=== PATIENT | male | born 1970 | race Caucasian/White ===

== ENCOUNTER 2023-07-27 02:48 | Emergency (ER) | payer OTHER, SELFPAY ==
[2023-07-27] VITALS (27 sets, daily range): BP systolic 122–150; BP diastolic 62–83; PULSE 61–105; RESP 14–22; TEMP 37; O2SAT 94–99; BMI 38.7
--- NOTE | 2023-07-27 02:56 | ECG_ITS ---
[facility] Test Date: 2023-07-27 Pat Name: PIPER RODRÍGUEZ Department: Room: - Gender: Male [employer]: : 1970 Requested By: GEN PEÑA Order Number: [id number] Reading MD: GEN PEÑA Measurements Intervals [place] Rate: 86 P: 47 CA: 164 QRS: 15 QRSD: 88 T: 55 QT: 350 QTc: 393 Interpretive Statements 1100 Sinus rhythm 9110 normal ECG Compared to ECG 12/18/2019 12:21:46 No significant changes Electronically Signed On 07-27-2023 5:57:31 EST by GEN PEÑA
--- NOTE | 2023-07-27 03:29 | ED_ITS ---
HPI - Chest Pain General Chief Complaint: Chest Pain Stated Complaint: CHEST PAIN Time Seen by Provider: 07/27/23 03:01 Source: patient and family Mode of arrival: walk-in Limitations: no limitations History of Present Illness HPI narrative: 53-year-old male History of hypertension, nonsmoker presents for evaluation of the sensation that his heart is out of rhythm. He has had these symptoms intermittently since last Wednesday, 7 days ago. He states tonight he was trying to go to sleep but was having some intermittent stabbing sensation in his chest that kept him from resting. It was nonradiating. He denies any shortness of breath dizziness or syncope. His states he has had some intermittent gastrointestinal symptoms for the past 6 months. He has not had any vomiting or diarrhea. He has not had any weight loss or black/tarry stools. He does not take NSAIDS typically. He has had episodes of hot flashes but only in the mornings. He denies any fever or cough. He states he tried to find some baby aspirin at the house to take but did not find any. He has been on blood pressure medication for the past 10 years. 10 years ago he had a stress test. MD complaint: Reports chest discomfort Related Data Home Medications Medication Instructions Recorded Confirmed atorvastatin 40 mg tablet mg 07/27/23 azilsartan medoxomil 80 mg tablet mg 07/27/23 (Edarbi) Allergies Allergy/AdvReac Type Severity Reaction Status Date / Time No Known Drug Allergies Allergy Verified 07/27/23 02:56 Review of Systems ROS Status of ROS 10 or more systems reviewed and unremark able except as noted in history and below PFSH PFSH Social History Smoking status: Never smoker Exam Narrative Exam Narrative: Nurses note and vital signs reviewed and patient is not hypoxic.Blood pressure is elevated 150/83 and his pulse is mildly tachycardic at 105 General: Alert, nontoxic male resting comfortably on the stretcher, no respiratory distress Skin: Warm, dry, no pallor noted. There is no rash noted. Head: Normocephalic, atraumatic Eye: Normal conjunctiva, no drainage, EOMI. PERRL Ears, Nose, Mouth, and Throat: oral mucosa is moist. Nares patent. Mouth without vesicles. Cardiovascular: Regular Rate and [id number], pulses are brisk and equal bilaterally, no chest wall tenderness Respiratory: Patient is in no distress, no accessory muscle use, lungs are clear to auscultation, no wheezing, rales or rhonchi Back: non-tender, no CVA tenderness bilaterally to percussion. GI: Normal bowel sounds, no tenderness to palpation, no masses appreciated. No rebound, guarding, or rigidity noted. Musculoskeletal: The patient has no evidence of calf tenderness, no pitting edema, symmetrical pulses noted bilaterally Neurological: A&O x4, normal speech Psychiatric: Cooperative Constitutional Vital Signs, click to edit/add: Last Vital Signs Temp 98.6 F 07/27/23 02:52 Pulse 61 07/27/23 06:03 Resp 15 07/27/23 06:03 BP 126/62 07/27/23 06:03 Pulse Ox 97 07/27/23 06:03 Course Vital Signs Vital signs: Vital Signs Temperature 98.6 F 07/27/23 02:52 Pulse Rate 105 H 07/27/23 02:52 Respiratory Rate 16 07/27/23 02:52 Blood Pressure 150/83 H 07/27/23 02:52 Pulse Oximetry 97 07/27/23 02:52 Temperature 98.6 F 07/27/23 02:52 Pulse Rate 61 07/27/23 06:03 Respiratory Rate 15 07/27/23 06:03 Blood Pressure 126/62 07/27/23 06:03 Pulse Oximetry 97 07/27/23 06:03 MDM - Chest Pain MDM Narrative Medical decision making narrative: This 53-year-old male, moderately overweight, nonsmoker with a high stress job presents for evaluation of chest discomfort has been intermittent and present since last Wednesday, 7 days ago. He denies that it is actual pain but states he felt like his heart was beating irregularly and was unable to sleep. He denies any SOB, dizziness or diaphoresis. He has not had any episodes of syncope. He does state that he has had some 'hot flashes' in the morning several times. The patient's states that for the past 6 months he has been having some gastrointestinal symptoms that are like heartburn which are unusual for him. The patient denies any weight loss or bloody stools but did admit to the nurse after thinking about it that he had had some dark stools recently. He does not take excessive amounts of NSAIDs or aspirin. He is not on any blood thinners. He has been on the same blood pressure medication for over 10 years. He did have a cardiac workup 10 years ago when he was a patient of Dr. Jaquez. Upon arrival an EKG was performed that is a normal sinus rhythm at 86 bpm with no acute changes. An IV was placed and he was given 324 mg baby aspirin. Routine cardiac labs were ordered and are reviewed. He has a normal white count however his hemoglobin is low at 8.7. He has a normal troponin and d dimer. . Delta troponin is less than 4. He also now gives additional history that he has been a fairly heavy drinker in the past but has recently quit drinking. Electrolytes are normal with the exception of a sodium of 128. He is not on any diuretics or steroids. CTA of the chest /abdomen/ pelvis was performed to rule out any source of bleeding or other abnormalities and is included in the body of this report and is normal with the exception of a 3mm pulmonary nodule. The results of the CTA were discussed with the patient and his . TSH was added on and is normal. Heart score is 3 for Hx HTN and elevated BMI He is feeling better at this time and requests to be discharged home. Case was discussed with Dr Pratt and he will see him in the office in the next several days for further evaluation and treatment He will be discharged home with Rx for Protonix Medical Records Data Medical records narrative: The [address] [address] [address] Scan Report Signed Patient: PIPER RODRÍGUEZ MR#: [id number] : 1970 Acct:[id number] Age/Sex: 53 / M ADM Date: 07/27/23 Loc: ER Attending Dr: Ordering Physician: Mily Rock Date of Service: 07/27/23 Procedure(s): CT angio chest Accession Number(s): [id number] cc: Delta Pratt M.D.~ The [address] [address] Patient Name: PIPER RODRÍGUEZ MRN: [id number] date: 1970 Sex: M Assigned Patient Location: ER Current Patient Location: ER Accession/Order Number: [id number] Exam Date: 07/27/2023 04:15 Report Date: 07/27/2023 05:38 At the request of: MILY MARKER Procedure: CT angio chest EXAM: CT angio chest, CT angio abdomen pelvis HISTORY: Chest and abdomen pain COMPARISON: None. TECHNIQUE: Following nonionic IV contrast, thin section axial scans obtained from thoracic inlet through the pelvis and ischial tuberosities. Coronal and sagittal reformatted images obtained. 3-D reconstructions of the thoracoabdominal aorta and iliac arteries obtained in separate workstation. Mid images obtained. Type and amount of contrast opacified institution. This CT exam was performed using one or more of the following dose reduction techniques: Automated exposure control, adjustment of the mA and/or kV according to patient size, or use of iterative reconstruction technique. Thin section coronal and sagittal images were reconstructed from the axial data set. All images were reviewed and interpreted. CTA CHEST FINDINGS: No evidence of acute PE. Normal thoracic aorta without dissection or aneurysm. Cardiac chambers are upper limits normal in size and mildly enlarged. No pericardial effusion. No mediastinal or hilar lymphadenopathy. There is a tiny pulmonary nodule lateral segment right middle lobe abutting fissure measuring 3 mm. Both lungs otherwise well aerated, expanded and clear. No pneumothorax or pleural effusion or focal consolidation. Normal thoracic osseous structures. No rib fractures. Chest wall is intact. No axillary adenopathy. Normal thyroid gland. CTA ABDOMEN AND PELVIC FINDINGS: Normal course and caliber of the descending thoracic aorta and abdominal aorta and iliac arteries. No dissection or aneurysm. Mild atherosclerotic calcific plaque in the infrarenal aorta and along the bilateral common iliac arteries and internal iliac arteries. Branch vessels are widely patent. No stenosis. This includes celiac axis and vessels, SMA and JACKELYN. Both renal arteries are widely patent. No stenosis or calcific plaque. Moderate hepatic steatosis. Liver otherwise normal. Normal portal vein enhancement. Normal gallbladder. No intrahepatic or extrahepatic bile duct distention. Normal pancreas. No pancreatic duct dilation. Normal spleen, adrenals and kidneys during arterial phase of imaging. Normal GE junction stomach. Normal course and caliber of small and large bowel loops. No obstruction or inflammatory changes. Mild scattered diverticulosis. No acute colitis. Normal appendix. Normal urinary bladder. Normal mesenteric and retroperitoneal and peritoneal structures. No mass or adenopathy. Bilateral hip replacement hardware causing streak artifact. Osseous structures and joints otherwise normal. CT/CT angio chest IMPRESSION: 1. No acute chest, abdomen or pelvis findings. 2. Negative for PE. 3. Normal course and caliber of thoracal abdominal aorta and iliac arteries with no dissections or aneurysms. Mild atherosclerotic calcific plaque mostly in the abdominal aorta and iliac arteries. 4. Small 2 to 3 mm right middle lobe lung nodule. According to current Fleischner Society recommendations, no follow-up needed. 5. Additional chronic findings as discussed above. Electronically authenticated by: SUSI BRENNAN Date: 07/27/2023 05:38 Lab Data Labs: Lab Results 07/27/23 07/27/23 Range/Units 03:00 05:53 WBC 5.0 (4.0-11.0) 10^3/uL RBC 4.28 L (4.70-6.10) 10^6/uL Hgb 8.7 L (14.0-18.0) g/dL Hct 30.6 L (42.0-54.0) % MCV 71.5 L (80.0-94.0) fL MCH 20.3 L (25.9-34.0) pg MCHC 28.4 L (29.9-35.2) g/dL RDW 18.3 H (11.0-15.0) % Plt Count 234 (150-450) 10^3/uL MPV 10.5 (9.5-13.5) fL Neut % (Auto) 55.8 (43.0-75.0) % Lymph % (Auto) 21.4 (20.5-60.0) % Harvey % (Auto) 15.2 H (1.7-12.0) % Eos % (Auto) 4.8 (0.9-7.0) % Baso % (Auto) 1.4 (0.2-2.0) % Neut # (Auto) 2.8 (1.4-6.5) 10^3/uL Lymph # (Auto) 1.1 L (1.2-3.8) 10^3/uL Harvey # (Auto) 0.8 (0.3-0.8) 10^3/uL Eos # (Auto) 0.2 (0.0-0.7) 10^3/uL Baso # (Auto) 0.1 (0.0-0.1) 10^3/uL Abs Immat Gran (auto) 0.07 H (0.00-0.03) 10^3/uL Imm/Tot Granulo (auto) 1.4 H (0.0-0.5) % D-Dimer <0.19 (<=0.59) mg/L FEU Sodium 128 L (136-145) mmol/L Potassium 4.7 (3.5-5.1) mmol/L Chloride 95 L (98-107) mmol/L Carbon Dioxide 27.4 (21.0-32.0) mmol/L Anion Gap 10.3 BUN 16.0 (7.0-18.0) mg/dL Creatinine 1.26 (0.70-1.30) mg/dL Est GFR ( Amer) >60 (>=60) Est GFR (Non-Af Amer) >60 (>=60) BUN/Creatinine Ratio 12.7 Glucose 133 H (74-106) mg/dL Calcium 9.4 (8.5-10.1) mg/dL Magnesium 2.4 (1.8-2.4) mg/dL Total Bilirubin 0.4 (0.2-1.0) mg/dL AST 83 H (15-37) U/L ALT 72 H (16-63) U/L Alkaline Phosphatase 89 (46-116) U/L Troponin I High Sens 4.8 <4.0 L (4.0-76.1) pg/mL NT-Pro-B Natriuret Pep 13.0 (<=900.0) pg/mL Total Protein 8.4 H (6.4-8.2) g/dL Albumin 3.6 (3.4-5.0) g/dL Globulin 4.8 g/dL Albumin/Globulin Ratio 0.8 TSH & Free T4 Interp 1.930 (0.358-3.740) uIU/mL ECG Data Attestation: I personally reviewed and interpreted this ECG as follows: (Sinus rhythm at 86 beats for minute, normal axis, normal intervals, no acute ST segment elevation or T-wave inversion) Heart Score History: Moderately Suspicious ECG: Normal Age: >45-<65 years Risk Factors: 1 or 2 Risk Factors Troponin: <Normal Limit Total Heart Score Recommendations & Risks:: 3 Discharge Plan Discharge Chief Complaint: Chest Pain Clinical Impression: Anemia, Hyponatremia, Atypical chest pain Patient Disposition: Home, Self-Care Time of Disposition Decision: 06:32 Condition: Good Prescriptions / Home Meds: No Action atorvastatin 40 mg tablet Edarbi 80 mg tablet Instructions: Hyponatremia (ED), Anemia (ED), Noncardiac Chest Pain (ED) Referrals: Delta Pratt MD [Primary Care Provider] - 1 week Stand Alone Forms: Portal Instructions
[2023-07-27 03:30] LABS: Basophils Absolute Auto 0.1 10^3/uL (0.0-0.1); Basophils Percent Auto 1.4 % (0.2-2.0); Eosinophils Absolute Auto 0.2 10^3/uL (0.0-0.7); Eosinophils Percent Auto 4.8 % (0.9-7.0); Hematocrit 30.6 % (42.0-54.0); Hemoglobin 8.7 g/dL (14.0-18.0); Immature Granulocytes Abs Auto 0.07 10^3/uL (0.00-0.03); Immature Granulocytes Pct Auto 1.4 % (0.0-0.5); Lymphocytes Absolute Auto 1.1 10^3/uL (1.2-3.8); Lymphocytes Percent Auto 21.4 % (20.5-60.0); Mean Corpuscular HGB Conc 28.4 g/dL (29.9-35.2); Mean Corpuscular Hemoglobin 20.3 pg (25.9-34.0); Mean Corpuscular Volume 71.5 fL (80.0-94.0); Mean Platelet Volume 10.5 fL (9.5-13.5); Monocytes Absolute Auto 0.8 10^3/uL (0.3-0.8); Monocytes Percent Auto 15.2 % (1.7-12.0); Neutrophils Absolute Auto 2.8 10^3/uL (1.4-6.5); Neutrophils Percent Auto 55.8 % (43.0-75.0); Platelet Count 234 10^3/uL (150-450); Red Blood Count 4.28 10^6/uL (4.70-6.10); Red Cell Distribution Width 18.3 % (11.0-15.0)
[2023-07-27] MEDS: ASPIRIN 81 MG TAB.CHEW 324 MG PO (03:30)
[2023-07-27 03:34] LABS: Alanine Aminotransferase 72 U/L (16-63); Albumin Globulin Ratio 0.8; Albumin Level 3.6 g/dL (3.4-5.0); Alkaline Phosphatase 89 U/L (46-116); Anion Gap 10.3; Aspartate Amino Transferase 83 U/L (15-37); BUN Creatinine Ratio 12.7; Bilirubin Total 0.4 mg/dL (0.2-1.0); Calcium 9.4 mg/dL (8.5-10.1); Carbon Dioxide 27.4 mmol/L (21.0-32.0); Chloride 95 mmol/L (98-107); Estimated GFR (African America >60 (>=60); Estimated GFR (Non-African Ame >60 (>=60); Globulin 4.8 g/dL; Glucose 133 mg/dL (74-106); Magnesium 2.4 mg/dL (1.8-2.4); Potassium 4.7 mmol/L (3.5-5.1); Sodium 128 mmol/L (136-145); Total Protein 8.4 g/dL (6.4-8.2); Troponin I High Sensitivity 4.8 pg/mL (4.0-76.1)
[2023-07-27 03:45] LABS: D Dimer <0.19 mg/L FEU (<=0.59)
--- NOTE | 2023-07-27 04:05 | CT_ITS ---
[address] [address] Patient Name: PIPER RODRÍGUEZ MRN: [id number] date: 1970 Sex: M Assigned Patient Location: ER Current Patient Location: Accession/Order Number: [id number] Exam Date: 07/27/2023 04:15 Report Date: 07/27/2023 05:38 At the request of: DANE MARKER Procedure: CT angio abdomen pelvis EXAM: CT angio chest, CT angio abdomen pelvis HISTORY: Chest and abdomen pain COMPARISON: None. TECHNIQUE: Following nonionic IV contrast, thin section axial scans obtained from thoracic inlet through the pelvis and ischial tuberosities. Coronal and sagittal reformatted images obtained. 3-D reconstructions of the thoracoabdominal aorta and iliac arteries obtained in separate workstation. Mid images obtained. Type and amount of contrast opacified institution. This CT exam was performed using one or more of the following dose reduction techniques: Automated exposure control, adjustment of the mA and/or kV according to patient size, or use of iterative reconstruction technique. Thin section coronal and sagittal images were reconstructed from the axial data set. All images were reviewed and interpreted. CTA CHEST FINDINGS: No evidence of acute PE. Normal thoracic aorta without dissection or aneurysm. Cardiac chambers are upper limits normal in size and mildly enlarged. No pericardial effusion. No mediastinal or hilar lymphadenopathy. There is a tiny pulmonary nodule lateral segment right middle lobe abutting fissure measuring 3 mm. Both lungs otherwise well aerated, expanded and clear. No pneumothorax or pleural effusion or focal consolidation. Normal thoracic osseous structures. No rib fractures. Chest wall is intact. No axillary adenopathy. Normal thyroid gland. CTA ABDOMEN AND PELVIC FINDINGS: Normal course and caliber of the descending thoracic aorta and abdominal aorta and iliac arteries. No dissection or aneurysm. Mild atherosclerotic calcific plaque in the infrarenal aorta and along the bilateral common iliac arteries and internal iliac arteries. Branch vessels are widely patent. No stenosis. This includes celiac axis and vessels, SMA and JACKELYN. Both renal arteries are widely patent. No stenosis or calcific plaque. Moderate hepatic steatosis. Liver otherwise normal. Normal portal vein enhancement. Normal gallbladder. No intrahepatic or extrahepatic bile duct distention. Normal pancreas. No pancreatic duct dilation. Normal spleen, adrenals and kidneys during arterial phase of imaging. Normal GE junction stomach. Normal course and caliber of small and large bowel loops. No obstruction or inflammatory changes. Mild scattered diverticulosis. No acute colitis. Normal appendix. Normal urinary bladder. Normal mesenteric and retroperitoneal and peritoneal structures. No mass or adenopathy. Bilateral hip replacement hardware causing streak artifact. Osseous structures and joints otherwise normal. CT/CT angio abdomen pelvis IMPRESSION: 1. No acute chest, abdomen or pelvis findings. 2. Negative for PE. 3. Normal course and caliber of thoracal abdominal aorta and iliac arteries with no dissections or aneurysms. Mild atherosclerotic calcific plaque mostly in the abdominal aorta and iliac arteries. 4. Small 2 to 3 mm right middle lobe lung nodule. According to current Fleischner Society recommendations, no follow-up needed. 5. Additional chronic findings as discussed above. Electronically authenticated by: SUSI BRENNAN Date: 07/27/2023 05:38
--- NOTE | 2023-07-27 04:05 | CT_ITS ---
[address] [address] Patient Name: PIPER RODRÍGUEZ MRN: [id number] date: 1970 Sex: M Assigned Patient Location: ER Current Patient Location: Accession/Order Number: [id number] Exam Date: 07/27/2023 04:15 Report Date: 07/27/2023 05:38 At the request of: DANE MARKER Procedure: CT angio chest EXAM: CT angio chest, CT angio abdomen pelvis HISTORY: Chest and abdomen pain COMPARISON: None. TECHNIQUE: Following nonionic IV contrast, thin section axial scans obtained from thoracic inlet through the pelvis and ischial tuberosities. Coronal and sagittal reformatted images obtained. 3-D reconstructions of the thoracoabdominal aorta and iliac arteries obtained in separate workstation. Mid images obtained. Type and amount of contrast opacified institution. This CT exam was performed using one or more of the following dose reduction techniques: Automated exposure control, adjustment of the mA and/or kV according to patient size, or use of iterative reconstruction technique. Thin section coronal and sagittal images were reconstructed from the axial data set. All images were reviewed and interpreted. CTA CHEST FINDINGS: No evidence of acute PE. Normal thoracic aorta without dissection or aneurysm. Cardiac chambers are upper limits normal in size and mildly enlarged. No pericardial effusion. No mediastinal or hilar lymphadenopathy. There is a tiny pulmonary nodule lateral segment right middle lobe abutting fissure measuring 3 mm. Both lungs otherwise well aerated, expanded and clear. No pneumothorax or pleural effusion or focal consolidation. Normal thoracic osseous structures. No rib fractures. Chest wall is intact. No axillary adenopathy. Normal thyroid gland. CTA ABDOMEN AND PELVIC FINDINGS: Normal course and caliber of the descending thoracic aorta and abdominal aorta and iliac arteries. No dissection or aneurysm. Mild atherosclerotic calcific plaque in the infrarenal aorta and along the bilateral common iliac arteries and internal iliac arteries. Branch vessels are widely patent. No stenosis. This includes celiac axis and vessels, SMA and JACKELYN. Both renal arteries are widely patent. No stenosis or calcific plaque. Moderate hepatic steatosis. Liver otherwise normal. Normal portal vein enhancement. Normal gallbladder. No intrahepatic or extrahepatic bile duct distention. Normal pancreas. No pancreatic duct dilation. Normal spleen, adrenals and kidneys during arterial phase of imaging. Normal GE junction stomach. Normal course and caliber of small and large bowel loops. No obstruction or inflammatory changes. Mild scattered diverticulosis. No acute colitis. Normal appendix. Normal urinary bladder. Normal mesenteric and retroperitoneal and peritoneal structures. No mass or adenopathy. Bilateral hip replacement hardware causing streak artifact. Osseous structures and joints otherwise normal. CT/CT angio chest IMPRESSION: 1. No acute chest, abdomen or pelvis findings. 2. Negative for PE. 3. Normal course and caliber of thoracal abdominal aorta and iliac arteries with no dissections or aneurysms. Mild atherosclerotic calcific plaque mostly in the abdominal aorta and iliac arteries. 4. Small 2 to 3 mm right middle lobe lung nodule. According to current Fleischner Society recommendations, no follow-up needed. 5. Additional chronic findings as discussed above. Electronically authenticated by: SUSI BRENNAN Date: 07/27/2023 05:38
[2023-07-27] MEDS: PANTOPRAZOLE SODIUM 40 MG VIAL IV (04:38)
[2023-07-27] MEDS: 0.9 % SODIUM CHLORIDE 1,000 ML 1000 ML IV (04:38)
[2023-07-27 06:17] LABS: Troponin I High Sensitivity <4.0 pg/mL (4.0-76.1)
== END 2023-07-27 06:42 | disposition home or self-care (01) ==
PROVIDERS: Emergency Provider Emergency Medicine; PCP Family Medicine
DX: R07.89 Other chest pain (principal); D64.9 Anemia, unspecified; E87.1 Hypo-osmolality and hyponatremia; I10 Essential (primary) hypertension; Z79.899 Other long term (current) drug therapy
CPT/HCPCS: 36415; 71275; 74174; 80053; 83735; 83880; 84443; 84484; 85025; 85378; 93005; 96374; 99285; Q9967

== ENCOUNTER 2023-08-02 07:45 | Inpatient (IN) | payer OTHER, SELFPAY ==
[2023-08-02] VITALS (39 sets, daily range): BP systolic 98–155; BP diastolic 51–81; PULSE 65–84; RESP 10–29; TEMP 37.1–38.3; O2SAT 91–98; BMI 38.5; BMI 38.4
--- OUTSIDE RECORDS SUMMARY | 2023-08-02 08:04 | XMS_ITS | CCD ---
Author Name Unknown Address [address] [place] [address] Organization [facility] Care Team Providers Care Protection Specialist Name Role Phone HOY ., DR BLEVINS Admitting Unavailable HOY ., DR BLEVINS Attending Unavailable HOY ., DR BLEVINS Primary Care Unavailable HOY ., DR BLEVINS Admitting Unavailable HOY ., DR BLEVINS Attending Unavailable HOY ., DR BLEVINS Primary Care Unavailable HOY ., DR BLEVINS Admitting Unavailable HOY ., DR BLEVINS Attending Unavailable HOY ., DR BLEVINS Primary Care Unavailable HOY ., DR BLEVINS Consulting Unavailable HOY ., DR BLEVINS Admitting Unavailable HOY ., DR BLEVINS Attending Unavailable HOY ., DR BLEVINS Primary Care Unavailable HOY ., DR BLEVINS Consulting Unavailable Allergies Allergy Classification Reported Allergen(s) Allergy Type Date of Onset Reaction(s) Facility (1 source) No Known Medication Allergies; Translations: [No Known Medication Allergies] Propensity to adverse reactions (disorder) [facility] [place] Repository Problems Active Problems Problem Classification Problem Date Documented Da te Episodic/Chronic Disorders of lipid metabolism (1 source) Hyperlipidemia, unspecified; Translations: [HYPERLIPIDEMIA UNSPECIFIED] Onset: 02-08-2022 Chronic Essential hypertension (1 source) Essential (primary) hypertension; Translations: [ESSENTIAL PRIMARY HYPERTENSION] Onset: 02-08-2022 Chronic Residual codes; unclassified (4 sources) Obstructive sleep apnea (adult) (pediatric); Translations: [OBSTRUCTIVE SLEEP APNEA] Onset: 07-14-2022 Chronic Past or Other Problems Problem Classification Problem Date Documented Da te Episodic/Chronic Malaise and fatigue (1 source) Other fatigue; Translations: [OTHER FATIGUE] Onset: 02-08-2022 Episodic Other aftercare (1 source) 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; Translations: [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 Rayna Mathew CBC AUTO DIFFon 02-04-2022 BASO # 0.0 103/ul Normal 0.0-0.1 [facility] Comment on above: Performed By: #### C BC #### [facility] [address] [place] [address] Dr. Rayna Mathew Basophils/100 WBC (Bld) 0.7 % Normal 0.2-2.0 [facility] Comment on above: Performed By: #### C BC #### [facility] [address] [place] [address] Dr. Rayna Mathew EO # 0.4 103/ul Normal 0.0-0.7 [facility] Comment on above: Performed By: #### C BC #### [facility] [address] [place] [address] Dr. Rayna Mathew Eosinophils/100 WBC (Bld) 6.7 % Normal 0.9-7.0 [facility] Comment on above: Performed By: #### C BC #### [facility] [address] [place] [address] Dr. Rayan Mathew Erythrocyte distribution width (RBC) [Ratio] 13.5 % Normal 11.0-15.0 [facility] Comment on above: Performed By: #### C BC #### [facility] [address] [place] [address] Dr. Rayna Mathew Hematocrit (Bld) [Volume fraction] 37.2 % Critically low 42.0-54.0 [facility] Comment on above: Performed By: #### C BC #### [facility] [address] [place] [address] Dr. Rayna Mathew Hemoglobin (Bld) [Mass/Vol] 11.5 g/dL Critically low 14.0-18.0 [facility] Comment on above: Performed By: #### C BC #### [facility] [address] [place] [address] Dr. Rayna Mathew IG # 0.02 10e3/ul Normal 0.00-0.03 [facility] Comment on above: Performed By: #### C BC #### [facility] [address] [place] [address] Dr. Rayna Mathew IG % 0.3 % Normal 0.0-0.5 [facility] Comment on above: Performed By: #### C BC #### [facility] [address] [place] [address] Dr. Rayna Mathew LYMPH # 1.4 103/ul Normal 1.2-3.8 [facility] Comment on above: Performed By: #### C BC #### [facility] [address] [place] [address] Dr. Rayna Mathew Lymphocytes/100 WBC (Bld) 23.8 % Normal 20.5-60.0 [facility] Comment on above: Performed By: #### C BC #### [facility] [address] [place] [address] Dr. Rayna Mathew MANUAL DIFF REQ NO Normal [facility] Comment on above: Performed By: #### C BC #### [facility] [address] [place] [address] Dr. Rayna Mathew MCH (RBC) [Entitic mass] 27.4 pg Normal 25.9-34.0 [facility] Comment on above: Performed By: #### C BC #### [facility] [address] [place] [address] Dr. Rayna Mathew MCHC (RBC) [Mass/Vol] 30.9 g/dL Normal 29.9-35.2 [facility] Comment on above: Performed By: #### C BC #### [facility] [address] [place], [place] [id number] Dr. Rayna Mathew MCV (RBC) [Entitic vol] 88.6 fL Normal 80.0-94.0 [facility] Comment on above: Performed By: #### C BC #### [facility] [address] [place] [address] Dr. Rayna Mathew MONO # 0.6 103/ul Normal 0.3-0.8 [facility] Comment on above: Performed By: #### C BC #### [facility] [address] [place] [address] Dr. Rayna Mathew Monocytes/100 WBC (Bld) 9.2 % Normal 1.7-12.0 [facility] Comment on above: Performed By: #### C BC #### [facility] [address] [place] [address] Dr. Rayna Mathew NEUT # 3.5 103/ul Normal 1.4-6.5 [facility] Comment on above: Performed By: #### C BC #### [facility] [address] [place] [address] Dr. Rayna Mathew Neutrophils/100 WBC (Bld) 59.3 % Normal 43.0-75.0 [facility] Comment on above: Performed By: #### C BC #### [facility] [address] [place] [address] Dr. Rayna Mathew Platelet mean volume (Bld) [Entitic vol] 10.4 fL Normal 9.5-13.5 [facility] Comment on above: Performed By: #### C BC #### [facility] [address] [place] [address] Dr. Rayna Mathew PLT 182 103/ul Normal 150-450 [facility] Comment on above: Performed By: #### C BC #### [facility] [address] [place] [address] Dr. Rayna Mathew RBC 4.20 106/ul Critically low 4.70-6.10 [facility] Comment on above: Performed By: #### C BC #### [facility] [address] [place] [address] Dr. Rayna Mathew WBC 6.0 103/ul Normal 4.0-11.0 [facility] Comment on above: Performed By: #### C BC #### [facility] [address] [address] [address] Rayna Mathew FREE T3on 02-04-2022 FREE T3 3.28 pg/mlL Normal 2.18-3.98 [facility] Comment on above: Performed By: #### F T3, TSH, CMP, LIPID #### [facility] [address] [address] [address] Rayna Mathew GLYCOHEMOGLOBIN A1Con 2021 ADA RECOMMENDATION SEE BELOW Normal [facility] Comment on above: Result Comment: ADA RECOMMENDED LIMIT 4.0 - 6.0 ADA THERAPEUTIC TARGET < 7.0 ACTION SUGGESTED > 7.0 Performed By: #### A 1C #### [facility] [address] [place] [address] Dr. Rayna Mathew Glucose [Mass/Vol] 123 mg/dL Normal [facility] Comment on above: Performed By: #### A 1C #### [facility] [address] [place] [address] Dr. Rayna Mathew HbA1c (Bld) [Mass fraction] 5.9 % Normal 4.5-6.2 [facility] Comment on above: Performed By: #### A 1C #### [facility] [address] [place] [address] Dr. Rayna Mathew LIPID PROFILEon 02-04-2022 CHOL-HDL RATIO NORM SEE BELOW Normal [facility] Comment on above: Result Comment: 3.3 - 4.4 LOW RISK 4.4 - 7.1 AVERAGE RISK 7.1 - 11.0 MODERATE RISK >11.0 HIGH RISK Performed By: #### F T3, TSH, CMP, LIPID #### [facility] [address] [place] [address] Dr. Rayna Mathew Cholesterol [Mass/Vol] 158 mg/dL Normal <=200 [facility] Comment on above: Performed By: #### F T3, TSH, CMP, LIPID #### [facility] [address] [place] [address] Dr. Rayna Mathew Cholesterol in HDL [Mass/Vol] 47 mg/dL Normal 40-60 [facility] Comment on above: Performed By: #### F T3, TSH, CMP, LIPID #### [facility] [address] [address] [address] Rayna Mathew Cholesterol in LDL [Mass/Vol] 98.0 mg/dL Normal [facility] Comment on above: Performed By: #### F T3, TSH, CMP, LIPID #### [facility] [address] [address] [address] Rayna Mathew Cholesterol.total/Cho lesterol in HDL [Mass ratio] 3.4 {ratio} Normal [facility] Comment on above: Performed By: #### F T3, TSH, CMP, LIPID #### [facility] [address] [address] [address] Rayna Mathew HDL NORMAL > or = 60 mg/dl - LOW CARDIOVASCULAR RISK <40 mg/dl - HIGH CARDIOVASCULAR RISK Normal [facility] Comment on above: Performed By: #### F T3, TSH, CMP, LIPID #### [facility] [address] [address] [address] Rayna Mathew LDL CALC NORMAL SEE BELOW Normal [facility] Comment on above: Result Comment: <100 mg/dl OPTIMAL 100 - 129 mg/dl NEAR OR ABOVE OPTIMAL 130 - 159 mg/dl BORDERLINE HIGH 160 - 189 mg/dl HIGH >190 mg/dl VERY HIGH Performed By: #### F T3, TSH, CMP, LIPID #### [facility] [address] [address] [address] Rayna Mathew Triglyceride [Mass/Vol] 65 mg/dL Normal <=150 [facility] Comment on above: Performed By: #### F T3, TSH, CMP, LIPID #### [facility] [address] [address] [address] Rayna Mathew VLDL CALC 13.0 mg/dL Normal [facility] Comment on above: Performed By: #### F T3, TSH, CMP, LIPID #### [facility] [address] [address] [address] Rayna Mathew PROF 14(COMP METB)on 022 Albumin [Mass/Vol] 3.8 g/dL Normal 3.4-5.0 [facility] Comment on above: Performed By: #### F T3, TSH, CMP, LIPID #### [facility] [address] [address] [address] Rayna Mahtew Albumin/Globulin [Mass ratio] 0.9 {ratio} Normal [facility] Comment on above: Performed By: #### F T3, TSH, CMP, LIPID #### [facility] [address] [address] [address] Rayna Mathew ALP [Catalytic activity/Vol] 76 U/L Normal 46-116 [facility] Comment on above: Performed By: #### F T3, TSH, CMP, LIPID #### [facility] [address] [address] [address] Rayna Mathew ALT [Catalytic activity/Vol] 109 U/L Critically high 16-63 [facility] Comment on above: Performed By: #### F T3, TSH, CMP, LIPID #### [facility] [address] [address] [address] Rayna Mathew Anion gap [Moles/Vol] 11.1 mmol/L Normal [facility] Comment on above: Performed By: #### F T3, TSH, CMP, LIPID #### [facility] [address] [address] [address] Rayna Mathew AST [Catalytic activity/Vol] 79 U/L Critically high 15-37 [facility] Comment on above: Performed By: #### F T3, TSH, CMP, LIPID #### [facility] [address] [address] [address] Rayna Mathew Bilirubin [Mass/Vol] 0.4 mg/dL Normal 0.2-1.0 [facility] Comment on above: Performed By: #### F T3, TSH, CMP, LIPID #### [facility] [address] [address] [address] Rayna Mathew Calcium [Mass/Vol] 9.0 mg/dL Normal 8.5-10.1 [facility] Comment on above: Performed By: #### F T3, TSH, CMP, LIPID #### [facility] [address] [address] [address] Rayna Mathwe Chloride [Moles/Vol] 102 mmol/L Normal 98-107 [facility] Comment on above: Performed By: #### F T3, TSH, CMP, LIPID #### [facility] [address] [address] [address] Rayna Mathew CO2 [Moles/Vol] 29.5 mmol/L Normal 21.0-32.0 [facility] Comment on above: Performed By: #### F T3, TSH, CMP, LIPID #### [facility] [address] [address] [address] Rayna Mathew Creatinine [Mass/Vol] 0.96 mg/dL Normal 0.70-1.30 [facility] Comment on above: Performed By: #### F T3, TSH, CMP, LIPID #### [facility] [address] [place] [address] Dr. Rayna Mathew EGFR-AF ANDORRAN >60 Normal >=60 [facility] Comment on above: Performed By: #### F T3, TSH, CMP, LIPID #### [facility] [address] [place] [address] Dr. Rayna Mathew EGFR-NON AF ANDORRAN >60 Normal >=60 [facility] Comment on above: Performed By: #### F T3, TSH, CMP, LIPID #### [facility] [address] [place] [address] Dr. Rayna Mathew Globulin (S) [Mass/Vol] 4.0 g/dL Normal [facility] Comment on above: Performed By: #### F T3, TSH, CMP, LIPID #### [facility] [address] [address] [address] Rayna Mathew Glucose [Mass/Vol] 121 mg/dL Critically high 74-106 [facility] Comment on above: Performed By: #### F T3, TSH, CMP, LIPID #### [facility] [address] [address] [address] Rayna Mathew Potassium [Moles/Vol] 4.6 mmol/L Normal 3.5-5.1 [facility] Comment on above: Performed By: #### F T3, TSH, CMP, LIPID #### [facility] [address] [address] [address] Rayna Mathew Protein [Mass/Vol] 7.8 g/dL Normal 6.4-8.[address] [facility] Comment on above: Performed By: #### F T3, TSH, CMP, LIPID #### [facility] [address] [address] [address] Rayna Mathew Sodium [Moles/Vol] 138 mmol/L Normal 136-[address] [facility] Comment on above: Performed By: #### F T3, TSH, CMP, LIPID #### [facility] [address] [address] [address] Rayna Mathew Urea nitrogen [Mass/Vol] 11.0 mg/dL Normal 7.0-18.0 [facility] Comment on above: Performed By: #### F T3, TSH, CMP, LIPID #### [facility] [address] [address] [address] Rayna Mathew Urea nitrogen/Creatinine [Mass ratio] 11.5 mg/mg Normal [facility] Comment on above: Performed By: #### F T3, TSH, CMP, LIPID #### [facility] [address] [address] [address] Rayna Mathew TSHon 02-04-2022 TSH 1.905 uIU/mL Normal 0.358-3.740 [facility] Comment on above: Performed By: #### F T3, TSH, CMP, LIPID #### [facility] [address] [address] [address] Rayna Mathew Encounters Encounter Date Encounter Type Care Provider Facility Start: 07-30-2023 ambulatory Facility:[facility] Start: 07-14-2022 End: 07-15-[address] GEN PEÑA . Facility: Start: 02-10-[address] GEN PEÑA . Facili ty:[facility] Start: 02-08-2022 Encounter for genera l adult medical examination without abnormal findings DR GEN PEÑA . [facility] Start: 02-04-2022 End: 02-05-[address] GEN PEÑA . Facility:[facility] Start: 02-04-2022 End: 02-05-2022 Encounter for general adult medical examination without abnormal findings DR GEN PEÑA . Facility:[facility] Start: 08-01-[address] GEN PEÑA . Facili ty:[facility] Procedures Date Procedure Procedure Detail Performing Clinician Start: 02-04-[address] BERE PEÑA . Comment on above: Performed By: #### P [facility] #### [facility] [address] [address] [address] Rayna Mathew Payers Date Payer Category Payer Private Health Insurance 1970 Unknown [id number] [id number] [id number] 1970 Unknown [id number] [id number] [id number] 1970 Unknown [id number] 2.16.84 [id number] 1971 Unknown [id number] 2.16.84 [id number] 1970 Unknown [id number] 2.16.8 [id number] 1958 Self-pay [id number] 1958 Unknown [id number] Summary Purpose Family History No Family History Records FoundNo Family History Records Found Advance Directives No Advanced Directives Records FoundNo Advanced Directives Records Found Additional Source Comments (unrecognized sect ion and content) No Status Records FoundNo Status Records Found INFORMATION SOURCE (unrecogn ized section and content) DATE CREATED AUTHOR 07/18/[address] [facility] DATE CREATED AUTHOR AUTHOR'S ROMYIZ ATMATHEW 07/31/2023 [facility] FOR RECORDS PERTAINING TO PATIENTS WHO ARE OR HAVE BEEN ENROLLED IN A CHEMICAL DEPENDENCY/SUBSTANCEABUSE PROGRAM, SOME INFORMATION MAY BE OMITTED. This clinical summary was aggregated from multiple sources. Caution should be exercised in using it in the provision of clinical care. This summary normalizes information from multiple sources, and as a consequence, information in this document may materially change the coding, format and clinical context of patient data. In addition, data may be omitted in some cases. CLINICAL DECISIONS SHOULD BE BASED ON THE PRIMARY CLINICAL RECORDS. [facility] [employer] [facility] provides no warranty or guarantee of the accuracy or completeness of information in this document.
--- NOTE | 2023-08-02 08:23 | ECG_ITS ---
The [facility] Test Date: 2023-08-02 Pat Name: PIPER RODRÍGUEZ Department: Room: - Gender: Male Global Recruiter: : 1970 Requested By: GEN PEÑA Order Number: [id number] Reading MD: KRISHAN FARRIS Measurements Intervals [place] Rate: 82 P: 30 MN: 162 QRS: -12 QRSD: 82 T: 56 QT: 360 QTc: 398 Interpretive Statements 1100 Sinus rhythm 3114 Cannot rule out anterior myocardial infarction, age undetermined 9150 abnormal ECG Compared to ECG 07/27/2023 02:56:44 Myocardial infarct finding now present Electronically Signed On 08-03-2023 22:34:36 EDT by KRISHAN FARRIS
--- NOTE | 2023-08-02 08:23 | XR_ITS ---
The [address] [address] Patient Name: PIPER RODRÍGUEZ MRN: [id number] date: 1970 Sex: M Assigned Patient Location: ER Current Patient Location: ER Accession/Order Number: [id number] Exam Date: 08/02/2023 08:40 Report Date: 08/02/2023 09:02 At the request of: LUÍS CALVO Procedure: XR chest 1V EXAMINATION: XR chest 1V HISTORY: CP COMPARISON: 12/18/2019 TECHNIQUE: AP portable erect FINDINGS: LUNGS: No significant pulmonary parenchymal abnormalities. VASCULATURE: No increased pulmonary vasculature. PLEURA: No pneumothorax, effusion, or pleural thickening. CARDIAC: No cardiomegaly or cardiac silhouette abnormality. MEDIASTINUM: No visible mass or adenopathy. BONES: No fracture or visible bone lesion. OTHER: Negative. XR/XR chest 1V IMPRESSION: No acute cardiopulmonary process Electronically authenticated by: HILDA SONG Date: 08/02/2023 09:02
--- NOTE | 2023-08-02 08:24 | ED.GENADUL1 ---
HPI - General Adult General Chief complaint: Chest Pain Stated complaint: FEVER/CHEST PAIN Time Seen by Provider: 08/02/23 08:17 Source: patient Mode of arrival: walk-in History of Present Illness HPI narrative: 53-year-old male presents for fever. He was here 6 days ago and at that time it was discovered that he is anemic. He did not need to be admitted to the hospital but he has been taking iron pills. 5 days ago he developed a fever and the highest it has been has been 101.8 degrees. 4 days ago he had follow-up with his PCP. He has not had any significant cough and does not complain of abdominal pain. He has not had diarrhea. No dysuria or skin rash. Related Data Home Medications Medication Instructions Recorded Confirmed atorvastatin 40 mg tablet mg 07/27/23 azilsartan medoxomil 80 mg tablet mg 07/27/23 (Edarbi) Allergies Allergy/AdvReac Type Severity Reaction Status Date / Time No Known Drug Allergies Allergy Verified 07/27/23 02:56 Review of Systems ROS Narrative A ten point review of systems is negative except as noted above. PFSH PFSH Social History Smoking status: Never smoker Exam Narrative Exam Narrative: Nurses note and vital signs reviewed and patient is not hypoxic. General: The patient appears well and in no apparent distress. Patient is resting comfortably on cart. Skin: Warm, dry, no pallor noted. There is no rash noted. Head: Normocephalic, atraumatic Eye: Normal conjunctiva, no drainage Ears, Nose, Mouth, and Throat: oral mucosa is moist. Nares patent. Cardiovascular: Regular Rate and Rhythm Respiratory: Patient is in no distress, no accessory muscle use, lungs are clear to auscultation, no wheezing, rales or rhonchi Back: non-tender GI: Soft and nontender Musculoskeletal: The patient has no evidence of calf tenderness, no pitting edema, symmetrical pulses noted bilaterally Neurological: A&O, normal speech Psychiatric: Cooperative Constitutional Vital Signs, click to edit/add: Last Vital Signs Temp 100.6 F H 08/02/23 10:00 Pulse 82 08/02/23 07:57 Resp 18 08/02/23 07:57 BP 155/81 H 08/02/23 07:57 Pulse Ox 96 08/02/23 07:57 O2 Del Method Room Air 08/02/23 07:57 Course Vital Signs Vital signs: Vital Signs Temperature 98.7 F 08/02/23 07:57 Pulse Rate 82 08/02/23 07:57 Respiratory Rate 18 08/02/23 07:57 Blood Pressure 155/81 H 08/02/23 07:57 Pulse Oximetry 96 08/02/23 07:57 Oxygen Delivery Method Room Air 08/02/23 07:57 Temperature 100.6 F H 08/02/23 10:00 Pulse Rate 82 08/02/23 07:57 Respiratory Rate 18 08/02/23 07:57 Blood Pressure 155/81 H 08/02/23 07:57 Pulse Oximetry 96 08/02/23 07:57 Oxygen Delivery Method Room Air 08/02/23 07:57 Medical Decision Making MDM Narrative Medical decision making narrative: Neutropenic fever is identified. Today's WBC is 1.1 and his platelet count is down to 120. Case discussed with Dr. Esteves and subsequent testing is ordered including flow cytometry and a blood smear. Blood cultures were obtained and he was given IV Zosyn and the patient is being admitted. Findings are discussed thoroughly with the patient and his . Differential Diagnosis Differential Diagnosis: Viral infection, blood dyscrasia Lab Data Lab results reviewed: Yes I reviewed the patient's lab results Labs: Lab Results 08/02/23 08/02/23 08/02/23 Range/Units 08:32 08:34 10:06 WBC 1.1 L* (4.0-11.0) 10^3/uL RBC 4.29 L (4.70-6.10) 10^6/uL Hgb 8.7 L (14.0-18.0) g/dL Hct 30.9 L (42.0-54.0) % MCV 72.0 L (80.0-94.0) fL MCH 20.3 L (25.9-34.0) pg MCHC 28.2 L (29.9-35.2) g/dL RDW 18.5 H (11.0-15.0) % Plt Count 120 L (150-450) 10^3/uL MPV 10.6 (9.5-13.5) fL Seg Neuts % (Manual) 50.0 Band Neutrophils % 2.0 (0-5) % Lymphocytes % (Manual) 28.0 (20.5-60.0) % Monocytes % (Manual) 18.0 H (1.7-12.0) % Eosinophils % (Manual) 2.0 (0.9-7.0) % Basophils % (Manual) 0.0 L (0.2-2.0) % Neutrophils # (Manual) 0.55 L (1.4-6.5) 10^3/uL Band Neutrophils # 0.0 (0.0-0.3) 10^3/uL Lymphocytes # (Manual) 0.30 L (1.20-3.80) 10^3/uL Monocytes # (Manual) 0.19 L (0.30-0.80) 10^3/uL Eosinophils # (Manual) 0.02 (0.00-0.70) 10^3/uL Basophils # (Manual) 0.00 (0.00-0.10) 10^3/uL Poikilocytosis 1+ Anisocytosis 1+ Tear Drop Cells 1+ Sodium 135 L (136-145) mmol/L Potassium 4.2 (3.5-5.1) mmol/L Chloride 99 (98-107) mmol/L Carbon Dioxide 26.0 (21.0-32.0) mmol/L Anion Gap 14.2 BUN 15.0 (7.0-18.0) mg/dL Creatinine 1.53 H (0.70-1.30) mg/dL Est GFR ( Amer) 58 L (>=60) Est GFR (Non-Af Amer) 48 L (>=60) BUN/Creatinine Ratio 9.8 Glucose 140 H (74-106) mg/dL Calcium 8.1 L (8.5-10.1) mg/dL Troponin I High Sens 9.7 (4.0-76.1) pg/mL Urine Color Yellow (YELLOW) Urine Clarity Clear (CLEAR) Urine pH 5.5 (5.0-9.0) Ur Specific [place] >=1.030 A (1.005-1.025) Urine Protein Trace (NEG/TRACE) mg/dL Urine Glucose (UA) Negative (NEGATIVE) mg/dL Urine Ketones Negative (NEGATIVE) mg/dL Urine Occult Blood Negative (NEGATIVE) Urine Nitrite Negative (NEGATIVE) Urine Bilirubin Negative (NEGATIVE) Urine Urobilinogen 0.2 (0.2-1.0) EU/dL Ur Leukocyte Esterase Negative (NEGATIVE) Urine RBC None seen (0-2) #/HPF Urine WBC None seen (NONE SEEN) #/HPF Ur Squamous Epith Cells Rare (NONE/RARE) #/LPF Urine Crystals None seen (None Seen) #/HPF Urine Bacteria Trace A (NONE SEEN) #/HPF Urine Casts None seen (NONE SEEN) #/LPF Urine Mucus None seen (NONE SEEN) Influenza Type A Ag Negative Influenza Type B Ag Negative SARS-CoV-2 Ag (CV2AG) Negative (NEGATIVE) Imaging Data Chest x-ray: Radiologist's impression: ITS Impressions Chest X-Ray 08/02/23 08:23 IMPRESSION: No acute cardiopulmonary process Electronically authenticated by: HILDA SONG Date: 08/02/2023 09:02 ECG Data Attestation: I personally reviewed and interpreted this ECG as follows: (EKG on my interpretation shows normal sinus rhythm with a rate of 82 and no acute change) Discharge Plan Discharge Chief Complaint: Chest Pain Clinical Impression: Neutropenic fever Patient Disposition: Admitted As Inpatient Time of Disposition Decision: 11:37 Condition: Good Prescriptions / Home Meds: No Action atorvastatin 40 mg tablet Edarbi 80 mg tablet Referrals: Delta Pratt MD [Primary Care Provider] - 1 week
[2023-08-02 09:03] LABS: Influenza Virus A Antigen Negative; Influenza Virus B Antigen Negative; Internal Control Within Normal Limits; SARS-CoV-2 Ag NEGATIVE (NEGATIVE)
[2023-08-02 09:06] LABS: Anion Gap 14.2; BUN Creatinine Ratio 9.8; Calcium 8.1 mg/dL (8.5-10.1); Chloride 99 mmol/L (98-107); Estimated GFR (African America 58 (>=60); Estimated GFR (Non-African Ame 48 (>=60); Glucose 140 mg/dL (74-106); Potassium 4.2 mmol/L (3.5-5.1); Sodium 135 mmol/L (136-145); Troponin I High Sensitivity 9.7 pg/mL (4.0-76.1)
[2023-08-02 09:17] LABS: Hematocrit 30.9 % (42.0-54.0); Hemoglobin 8.7 g/dL (14.0-18.0); Mean Corpuscular HGB Conc 28.2 g/dL (29.9-35.2); Mean Corpuscular Hemoglobin 20.3 pg (25.9-34.0); Mean Platelet Volume 10.6 fL (9.5-13.5); Platelet Count 120 10^3/uL (150-450); Red Blood Count 4.29 10^6/uL (4.70-6.10); Red Cell Distribution Width 18.5 % (11.0-15.0)
[2023-08-02 09:31] LABS: White Blood Count 1.1 10^3/uL (4.0-11.0)
[2023-08-02 09:46] LABS: Eosinophils Absolute Manual 0.02 10^3/uL (0.00-0.70); Monocytes Absolute Manual 0.19 10^3/uL (0.30-0.80); Segmented Neut Absolute Manual 0.55 10^3/uL (1.4-6.5)
[2023-08-02 09:47] LABS: Poikilocytosis 1+
[2023-08-02 09:48] LABS: Anisocytosis 1+; Tear Drop Cells 1+
[2023-08-02 10:19] LABS: Bilirubin Urine NEGATIVE (NEGATIVE); Blood Urine NEGATIVE (NEGATIVE); Clarity Urine CLEAR (CLEAR); Color Urine YELLOW (YELLOW); Glucose Urine UA NEGATIVE (NEGATIVE); Ketones Urine NEGATIVE (NEGATIVE); Leukocyte Esterase Urine NEGATIVE (NEGATIVE); Nitrite Urine NEGATIVE (NEGATIVE); Protein Urine TRACE mg/dL (NEG/TRACE); Specific Gravity Urine >=1.030 (1.005-1.025); Urobilinogen Urine 0.2 EU/dL (0.2-1.0); pH Urine 5.5 (5.0-9.0)
[2023-08-02] MEDS: ACETAMINOPHEN 325 MG TABLET 650 MG PO (10:25)
[2023-08-02 10:27] LABS: Bacteria Urine TRACE #/HPF (NONE SEEN); Mucus Urine NONE SEEN (NONE SEEN); RBC Urine NONE SEEN #/HPF (0-2); Squamous Epithelial Cell Urine RARE #/LPF (NONE/RARE); WBC Urine NONE SEEN #/HPF (NONE SEEN)
[2023-08-02 10:28] LABS: Cast Seen? NONE SEEN #/LPF (NONE SEEN); Crystals Seen? None Seen #/HPF (None Seen)
[2023-08-02 11:22] LABS: Reticulocyte Pct Auto 0.71 % (0.60-3.10)
[2023-08-02] MEDS: PIPERACILLIN SODIUM/TAZOBACTAM 3.375 GM in 0.9 % SODIUM CHLORIDE 50 ML IV ×2 (11:23→20:21)
[2023-08-02 11:27] LABS: C Reactive Protein <0.50 mg/dL (<=0.50); Lactate Dehydrogenase 235 U/L (85-227)
[2023-08-02 11:39] LABS: Percent Iron Saturation 13.2 %
[2023-08-02 11:47] LABS: Adenovirus NOT DETECTED (NOT DETECTE); Bordetella parapertussis NOT DETECTED (NOT DETECTE); Coronavirus 229E NOT DETECTED (NOT DETECTE); Coronavirus HKU1 NOT DETECTED (NOT DETECTE); Coronavirus NL63 NOT DETECTED (NOT DETECTE); Coronavirus OC43 NOT DETECTED (NOT DETECTE); Human Metapneumovirus NOT DETECTED (NOT DETECTE); Human Rhinovirus/Enterovirus NOT DETECTED (NOT DETECTE); Influenza A NOT DETECTED (NOT DETECTE); Influenza B NOT DETECTED (NOT DETECTE); Mycoplasma pneumoniae NOT DETECTED (NOT DETECTE); Parainfluenza Virus 1 NOT DETECTED (NOT DETECTE); Parainfluenza Virus 2 NOT DETECTED (NOT DETECTE); Parainfluenza Virus 3 NOT DETECTED (NOT DETECTE); Parainfluenza Virus 4 NOT DETECTED (NOT DETECTE); Respiratory Syncytial Virus NOT DETECTED (NOT DETECTE); SARS-CoV-2 NOT DETECTED (NOT DETECTE)
[2023-08-02 11:49] LABS: Erythrocyte Sedimentation Rate 51 mm/hr (<=20)
--- OUTSIDE RECORDS SUMMARY | 2023-08-02 12:20 | XMS_ITS | CCD ---
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 DRUG THERAPY] Onset: 02-08-2022 Episodic Other screening for suspected conditions (not mental disorders or infectious disease) (1 source) Encounter for screening for malignant neoplasm of prostate; Translations: [ENC SCREEN MALIG NEOPLASM PROSTATE] Onset: 02-08-2022 Episodic Results Test Name Value Interpretation Reference Range Doug rm Physician Referralon 024 Physician Referral [id number] #[id number] Normal [facility] T4 LABCORPon 02-05-2022 T4 [Mass/Vol] 9.2 ug/dL Normal 4.5-12.0 [facility] Comment on above: Performed By: #### T 4LC #### [facility] [address] [place] [address] Dr. Rayna Mathew CBC AUTO DIFFon 02-04-2022 BASO # 0.0 103/ul Normal 0.0-0.1 [facility] Comment on above: Performed By: #### C BC #### [facility] [address] [place] [address] Dr. Rayna Mathew Basophils/100 WBC (Bld) 0.7 % Normal 0.2-2.0 [facility] Comment on above: Performed By: #### C BC #### [facility] [address] [place] [address] Dr. Rayna Mathew EO # 0.4 103/ul Normal 0.0-0.7 [facility] Comment on above: Performed By: #### C BC #### [facility] [address] [place] [address] Dr. Rayna Mathew Eosinophils/100 WBC (Bld) 6.7 % Normal 0.9-7.0 [facility] Comment on above: Performed By: #### C BC #### [facility] [address] [place] [address] Dr. Rayna Mathew Erythrocyte distribution width (RBC) [Ratio] 13.5 % Normal 11.0-15.0 [facility] Comment on above: Performed By: #### C BC #### [facility] [address] [place] [address] Dr. Rayna Mathew Hematocrit (Bld) [Volume fraction] 37.2 % Critically low 42.0-54.0 [facility] Comment on above: Performed By: #### C BC #### [facility] [address] [place] [address] Dr. Rayna Mathew Hemoglobin (Bld) [Mass/Vol] 11.5 g/dL Critically low 14.0-18.0 [facility] Comment on above: Performed By: #### C BC #### [facility] [address] [place] [address] Dr. Rayna Mathew IG # 0.02 10e3/ul Normal 0.00-0.03 [facility] Comment on above: Performed By: #### C BC #### [facility] [address] [place] [address] Dr. Rayna Mathew IG % 0.3 % Normal 0.0-0.5 [facility] Comment on above: Performed By: #### C BC #### [facility] [address] [place] [address] Dr. Rayna Mathew LYMPH # 1.4 103/ul Normal 1.2-3.8 [facility] Comment on above: Performed By: #### C BC #### [facility] [address] [place] [address] Dr. Rayna Mathew Lymphocytes/100 WBC (Bld) 23.8 % Normal 20.5-60.0 [facility] Comment on above: Performed By: #### C BC #### [facility] [address] [place] [address] Dr. Rayna Mathew MANUAL DIFF REQ NO Normal [facility] Comment on above: Performed By: #### C BC #### [facility] [address] [place] [address] Dr. Rayna Mathew MCH (RBC) [Entitic mass] 27.4 pg Normal 25.9-34.0 [facility] Comment on above: Performed By: #### C BC #### [facility] [address] [place] [address] Dr. Rayna Mathew MCHC (RBC) [Mass/Vol] 30.9 g/dL Normal 29.9-35.2 [facility] Comment on above: Performed By: #### C BC #### [facility] [address] [place] [address] Dr. Rayna Mathew MCV (RBC) [Entitic vol] 88.6 fL Normal 80.0-94.0 [facility] Comment on above: Performed By: #### C BC #### [facility] [address] [place] [address] Dr. Rayna Mathew MONO # 0.6 103/ul Normal 0.3-0.8 [facility] Comment on above: Performed By: #### C BC #### [facility] [address] [place] [address] Dr. Rayna Mathew Monocytes/100 WBC (Bld) 9.2 % Normal 1.7-12.0 [facility] Comment on above: Performed By: #### C BC #### [facility] [address] [place] [address] Dr. Rayna Mathew NEUT # 3.5 103/ul Normal 1.4-6.5 [facility] Comment on above: Performed By: #### C BC #### [facility] [address] [place] [address] Dr. Rayna Mathew Neutrophils/100 WBC (Bld) 59.3 % Normal 43.0-75.0 [facility] Comment on above: Performed By: #### C BC #### [facility] [address] [place] [address] Dr. Rayna Mathew Platelet mean volume (Bld) [Entitic vol] 10.4 fL Normal 9.5-13.5 [facility] Comment on above: Performed By: #### C BC #### [facility] [address] [place] [address] Dr. Rayna Mathew PLT 182 103/ul Normal 150-450 [facility] Comment on above: Performed By: #### C BC #### [facility] [address] [place] [address] Dr. Rayna Mathew RBC 4.20 106/ul Critically low 4.70-6.10 [facility] Comment on above: Performed By: #### C BC #### [facility] [address] [address] [address] Rayna Mathew WBC 6.0 103/ul Normal 4.0-11.0 [facility] Comment on above: Performed By: #### C BC #### [facility] [address] [address] [address] Rayna Mathew FREE T3on 02-04-2022 FREE T3 3.28 pg/mlL Normal 2.18-3.98 [facility] Comment on above: Performed By: #### F T3, TSH, CMP, LIPID #### [facility] [address] [address] [address] Rayna Mathew GLYCOHEMOGLOBIN A1Con 2021 ADA RECOMMENDATION SEE BELOW Normal [facility] Comment on above: Result Comment: ADA RECOMMENDED LIMIT 4.0 - 6.0 ADA THERAPEUTIC TARGET < 7.0 ACTION SUGGESTED > 7.0 Performed By: #### A 1C #### [facility] [address] [address] [address] Rayna Mathew Glucose [Mass/Vol] 123 mg/dL Normal [facility] Comment on above: Performed By: #### A 1C #### [facility] [address] [address] [address] Rayna Mathew HbA1c (Bld) [Mass fraction] 5.9 % Normal 4.5-6.2 [facility] Comment on above: Performed By: #### A 1C #### [facility] [address] [address] [address] Rayna Mathew LIPID PROFILEon 02-04-2022 CHOL-HDL RATIO NORM SEE BELOW Normal [facility] Comment on above: Result Comment: 3.3 - 4.4 LOW RISK 4.4 - 7.1 AVERAGE RISK 7.1 - 11.0 MODERATE RISK >11.0 HIGH RISK Performed By: #### F T3, TSH, CMP, LIPID #### [facility] [address] [address] [address] Rayna Mathew Cholesterol [Mass/Vol] 158 mg/dL Normal <=200 [facility] Comment on above: Performed By: #### F T3, TSH, CMP, LIPID #### [facility] [address] [address] [address] Rayna Mathew Cholesterol in HDL [Mass/Vol] 47 mg/dL Normal 40-60 [facility] Comment on above: Performed By: #### F T3, TSH, CMP, LIPID #### [facility] [address] [address] [address] Rayna Mathew Cholesterol in LDL [Mass/Vol] 98.0 mg/dL Normal [facility] Comment on above: Performed By: #### F T3, TSH, CMP, LIPID #### [facility] [address] [address] [address] Rayna Mathew Cholesterol.total/Cho lesterol in HDL [Mass ratio] 3.4 {ratio} Normal [facility] Comment on above: Performed By: #### F T3, TSH, CMP, LIPID #### [facility] [address] [address] [address] Rayna Mathew HDL NORMAL > or = 60 mg/dl - LOW CARDIOVASCULAR RISK <40 mg/dl - HIGH CARDIOVASCULAR RISK Normal [facility] Comment on above: Performed By: #### F T3, TSH, CMP, LIPID #### [facility] [address] [address] [address] Rayna Mathew LDL CALC NORMAL SEE BELOW Normal [facility] Comment on above: Result Comment: <100 mg/dl OPTIMAL 100 - 129 mg/dl NEAR OR ABOVE OPTIMAL 130 - 159 mg/dl BORDERLINE HIGH 160 - 189 mg/dl HIGH >190 mg/dl VERY HIGH Performed By: #### F T3, TSH, CMP, LIPID #### [facility] [address] [address] [address] Rayna Mathew Triglyceride [Mass/Vol] 65 mg/dL Normal <=150 [facility] Comment on above: Performed By: #### F T3, TSH, CMP, LIPID #### [facility] [address] [address] [address] Rayna Mathew VLDL CALC 13.0 mg/dL Normal [facility] Comment on above: Performed By: #### F T3, TSH, CMP, LIPID #### [facility] [address] [place] [address] Dr. Rayna Mathew PROF 14(COMP METB)on 022 Albumin [Mass/Vol] 3.8 g/dL Normal 3.4-5.0 [facility] Comment on above: Performed By: #### F T3, TSH, CMP, LIPID #### [facility] [address] [place] [address] Dr. Rayna Mathew Albumin/Globulin [Mass ratio] 0.9 {ratio} Normal [facility] Comment on above: Performed By: #### F T3, TSH, CMP, LIPID #### [facility] [address] [place] [address] Dr. Rayna Mathew ALP [Catalytic activity/Vol] 76 U/L Normal 46-116 [facility] Comment on above: Performed By: #### F T3, TSH, CMP, LIPID #### [facility] [address] [place] [address] Dr. Rayna Mathew ALT [Catalytic activity/Vol] 109 U/L Critically high 16-63 [facility] Comment on above: Performed By: #### F T3, TSH, CMP, LIPID #### [facility] [address] [place] [address] Dr. Rayna Mathew Anion gap [Moles/Vol] 11.1 mmol/L Normal [facility] Comment on above: Performed By: #### F T3, TSH, CMP, LIPID #### [facility] [address] [place] [address] Dr. Rayna Mathew AST [Catalytic activity/Vol] 79 U/L Critically high 15-37 [facility] Comment on above: Performed By: #### F T3, TSH, CMP, LIPID #### [facility] [address] [place] [address] Dr. Rayna Mathew Bilirubin [Mass/Vol] 0.4 mg/dL Normal 0.2-1.0 [facility] Comment on above: Performed By: #### F T3, TSH, CMP, LIPID #### [facility] [address] [place] [address] Dr. Rayna Mathew Calcium [Mass/Vol] 9.0 mg/dL Normal 8.5-10.1 [facility] Comment on above: Performed By: #### F T3, TSH, CMP, LIPID #### [facility] [address] [address] [address] Rayna Mathew Chloride [Moles/Vol] 102 mmol/L Normal 98-107 [facility] Comment on above: Performed By: #### F T3, TSH, CMP, LIPID #### [facility] [address] [address] [address] Rayna Mathew CO2 [Moles/Vol] 29.5 mmol/L Normal 21.0-32.0 [facility] Comment on above: Performed By: #### F T3, TSH, CMP, LIPID #### [facility] [address] [place] [address] Dr. Rayna Mathew Creatinine [Mass/Vol] 0.96 mg/dL Normal 0.70-1.30 [facility] Comment on above: Performed By: #### F T3, TSH, CMP, LIPID #### [facility] [address] [place] [address] Dr. Rayna Mathew EGFR-AF MARSHALLESE >60 Normal >=60 [facility] Comment on above: Performed By: #### F T3, TSH, CMP, LIPID #### [facility] [address] [place] [address] Dr. Rayna Mathew EGFR-NON AF MARSHALLESE >60 Normal >=60 [facility] Comment on above: Performed By: #### F T3, TSH, CMP, LIPID #### [facility] [address] [place] [address] Dr. Rayna Mathew Globulin (S) [Mass/Vol] 4.0 g/dL Normal [facility] Comment on above: Performed By: #### F T3, TSH, CMP, LIPID #### [facility] [address] [address] [address] Rayna Mathew Glucose [Mass/Vol] 121 mg/dL Critically high 74-106 T [facility] Comment on above: Performed By: #### F T3, TSH, CMP, LIPID #### [facility] [address] [address] [address] Rayna Mathew Potassium [Moles/Vol] 4.6 mmol/L Normal 3.5-5.1 [facility] Comment on above: Performed By: #### F T3, TSH, CMP, LIPID #### [facility] [address] [place] [address] Dr. Rayna Mathew Protein [Mass/Vol] 7.8 g/dL Normal 6.4-8.2 [facility] Comment on above: Performed By: #### F T3, TSH, CMP, LIPID #### [facility] [address] [place] [address] Dr. Rayna Mathew Sodium [Moles/Vol] 138 mmol/L Normal 136-145 [facility] Comment on above: Performed By: #### F T3, TSH, CMP, LIPID #### [facility] [address] [place] [address] Dr. Rayna Mathew Urea nitrogen [Mass/Vol] 11.0 mg/dL Normal 7.0-18.0 [facility] Comment on above: Performed By: #### F T3, TSH, CMP, LIPID #### [facility] [address] [place] [address] Dr. Rayna Mathew Urea nitrogen/Creatinine [Mass ratio] 11.5 mg/mg Normal [facility] Comment on above: Performed By: #### F T3, TSH, CMP, LIPID #### [facility] [address] [place] [address] Dr. Rayna Mathew TSHon 02-04-2022 TSH 1.905 uIU/mL Normal 0.358-3.740 [facility] Comment on above: Performed By: #### F T3, TSH, CMP, LIPID #### [facility] [address] [place] [address] Dr. Rayna Mathew Encounters Encounter Date Encounter Type Care Provider Facility Start: 07-30-2023 ambulatory Facility:[facility] Start: 07-14-2022 End: 07-15-[address] GEN PEÑA . Facility: Start: 02-10-[address] GEN PEÑA . Facili ty:[facility] Start: 02-08-2022 Encounter for genera l adult medical examination without abnormal findings DR GEN PEÑA . [facility] Start: 02-04-2022 End: 02-05-[address] GEN PEÑA . Facility: Start: 02-04-2022 End: 02-05-2022 Encounter for general adult medical examination without abnormal findings DR GEN PEÑA . Facility:[facility] Start: 08-01-[address] GEN PEÑA . Facili ty:[facility] Procedures Date Procedure Procedure Detail Performing Clinician Start: 02-04-[address] BERE PEÑA . Comment on above: Performed By: #### P [facility] #### [facility] [address] [place] [address] Dr. Rayna Mathew Payers Date Payer Category Payer Private Health Insurance 1970 Unknown [id number] [id number] [id number] 1970 Unknown [id number] [id number] [id number] 1971 Unknown [id number] 2.16.84 [id number] 1971 Unknown [id number] 2.16.84 [id number] 1971 Unknown [id number] [id number] 1958 Self-pay [id number] 1958 Unknown [id number] Summary Purpose Family History No Family History Records FoundNo Family History Records Found Advance Directives No Advanced Directives Records FoundNo Advanced Directives Records Found Additional Source Comments (unrecognized sect ion and content) No Status Records FoundNo Status Records Found INFORMATION SOURCE (unrecogn ized section and content) DATE CREATED AUTHOR 07/18/2022 [facility] DATE CREATED AUTHOR 'S ORGANIZ ATMATHEW 08/02/2023 [facility] FOR RECORDS PERTAINING TO PATIENTS WHO [...] BE BASED ON THE PRIMARY CLINICAL RECORDS. [facility]. provides no warranty or guarantee of the accuracy or completeness of information in this document.
[2023-08-02 13:42] LABS: Lactate/Lactic Acid 0.9 mmol/L (0.4-2.0)
[2023-08-02 13:48] LABS: Alanine Aminotransferase 222 U/L (16-63); Albumin Globulin Ratio 0.8; Albumin Level 3.1 g/dL (3.4-5.0); Alkaline Phosphatase 61 U/L (46-116); Aspartate Amino Transferase 223 U/L (15-37); Bilirubin Direct 0.1 mg/dL (0.0-0.2); Bilirubin Total 0.4 mg/dL (0.2-1.0); Globulin 4.1 g/dL; Total Protein 7.2 g/dL (6.4-8.2)
[2023-08-02 13:52] LABS: Mono Screen NEGATIVE (NEGATIVE)
[2023-08-02] MEDS: 0.9 % SODIUM CHLORIDE 1,000 ML 125 ML IV ×2 (14:04→22:59)
[2023-08-02] MEDS: LEVOFLOXACIN IN DEXTROSE 5 % 750 MG/150 ML IV.SOLN 100 MG IV (15:07)
[2023-08-02] MEDS: ACETAMINOPHEN 500 MG TABLET 1000 MG PO (18:30)
--- NOTE | 2023-08-02 18:35 | P.HP_ITS ---
HPI H&P: HPI History of Present Illness Chief complaint: NEUTROPENIC FEVER Narrative: Patient presented to the emergency room with weakness and fever. Found to be neutropenic. This is a change from a week ago. Other than just the general malaise and slight cough no other specific symptoms. Patient admitted for workup and treatment of neutropenic fever When I saw patient up on the medical surgical floor, he was resting comfortably, does have a moist sounding cough, Opioid HPI Opioid Management Most Recent Opioid Data: Last Pain Assessment 08/03/23 07:55 Last MAR Pain Assessment 08/03/23 05:18 Last ORT Total Score 3 08/02/23 12:20 Last ORT Risk Category Low Risk 08/02/23 12:20 PFSH PFSH Medical History (Updated 08/02/23 @ 18:57 by Gely Greenberg LPN) Hyperlipemia ?E78.5 - Hyperlipidemia, unspecified (ICD-10) Hypertension ?I10 - Essential (primary) hypertension (ICD-10) Surgical History (Updated 08/02/23 @ 18:57 by Gely Greenberg LPN) History of hip replacement ?Z96.649 - Presence of unspecified artificial hip joint (ICD-10) Social History (Updated 08/02/23 @ 18:59 by Gely Greenberg LPN) Within the past year, how often did you have a drink containing alcohol: monthly or less Within the past year, how many standard drinks containing alcohol did you have on a typical day: 1 or 2 Within the past year, how often did you have six or more drinks on one occasion: never Total score: 0 Score interpretation: A score less than 4 is consistent with normal alcohol consumption. Smoking status: Never smoker Second hand tobacco smoke exposure: No Non-prescribed substance use: denies use Known occupational exposures/hazards: No Highest level of school completed/degree received: high school graduate Are you now , , , , never or living with a partner: In a typical week, how many times do you talk on the telephone with family, friends, or neighbors: 3 or more times per week How often do you get together with friends or relatives: 3 or more times per week How often do you attend spiritism or buddhist services: never Do you belong to any clubs or organizations such as spiritism groups unions, fraternal or athletic groups, or school groups: no Total score: 2 Score interpretation: A score of greater than or equal to 2 indicates the lowest level of social isolation. Little interest or pleasure in doing things: not at all Feeling down, depressed, or hopeless: not at all Feel stressed/tense/nervous/anxious/difficulty sleeping: not at all Due to disability, difficulty making decisions: No Do you think of yourself as: straight/heterosexual Gender Identity: male Meds Home Medications and Allergies Home Medications Medication Instructions Recorded Confirmed Type atorvastatin 40 mg tablet 40 mg PO .QHS 07/27/23 08/02/23 History azilsartan medoxomil 80 mg tablet 80 mg PO DAILY 07/27/23 08/02/23 History (Edarbi) ferrous sulfate 325 mg (65 mg 325 mg PO BID 08/02/23 08/02/23 History iron) tablet (FeroSul) pantoprazole 40 mg tablet,delayed 40 mg PO BID 08/02/23 08/02/23 History release Allergies Allergy/AdvReac Type Severity Reaction Status Date / Time No Known Drug Allergies Allergy Verified 07/27/23 02:56 Exam Constitutional Vital Signs, click to edit/add: Last Vital Signs Temp 99.9 F 08/02/23 18:30 Pulse 72 08/02/23 15:29 Resp 16 08/02/23 15:29 BP 109/51 08/02/23 15:29 Pulse Ox 94 L 08/02/23 15:54 O2 Del Method Room Air 08/02/23 15:54 Documenting provider has reviewed patient's vital signs: yes Common normals: no apparent distress HENHI Common normals: normocephalic Chest Common normals: inspection of chest normal Respiratory Common normals: normal respiratory effort and no retractions Cardio Common normals: regular rate and regular rhythm GI Common normals: Normal to inspection, nondistended, normoactive bowel sounds present Extremity Common normals: normal to inspection Results Labs Labs: Short CBC 08/02/23 Range/Units 08:32 WBC 1.1 L* (4.0-11.0) 10^3/uL Hgb 8.7 L (14.0-18.0) g/dL Hct 30.9 L (42.0-54.0) % Plt Count 120 L (150-450) 10^3/uL BMP 08/02/23 08:32 Sodium 135 L Potassium 4.2 Chloride 99 Carbon Dioxide 26.0 BUN 15.0 Creatinine 1.53 H Glucose 140 H Calcium 8.1 L Liver Function 08/02/23 Range/Units 13:16 Total Bilirubin 0.4 (0.2-1.0) mg/dL Direct Bilirubin 0.1 (0.0-0.2) mg/dL AST 223 H (15-37) U/L ALT 222 H (16-63) U/L Alkaline Phosphatase 61 (46-116) U/L Albumin 3.1 L (3.4-5.0) g/dL Urine 08/02/23 Range/Units 10:06 Urine Color Yellow (YELLOW) Urine Clarity Clear (CLEAR) Urine pH 5.5 (5.0-9.0) Ur Specific [place] >=1.030 A (1.005-1.025) Urine Protein Trace (NEG/TRACE) mg/dL Urine Glucose (UA) Negative (NEGATIVE) mg/dL Assessment and Plan Assessment and Plan (1) Neutropenic fever: Plan Fever, neutropenia, thrombocytopenia-consult to hematology oncology, start Zosyn and Levaquin. Blood cultures obtained in ER, will do blood cultures for any further fevers. Elevated LFT-possibly related to the above-monitor daily Anemia-unable to assess acuteness. Hemoglobin fairly stable from blood work on previous week- With neutropenic fever, likely 3 to 4-day hospital stay, inpatient status for medically necessary treatment
[2023-08-02] MEDS: FERROUS SULFATE 325 MG TABLET PO (20:21)
[2023-08-03] VITALS (7 sets, daily range): BP systolic 100–106; BP diastolic 56–65; PULSE 59–72; RESP 16; TEMP 36.8–37.3; O2SAT 91–98; BMI 38.4
[2023-08-03] MEDS: PIPERACILLIN SODIUM/TAZOBACTAM 3.375 GM in 0.9 % SODIUM CHLORIDE 50 ML IV ×3 (03:59→19:17)
[2023-08-03] MEDS: ACETAMINOPHEN 500 MG TABLET 1000 MG PO ×3 (04:00→19:17)
[2023-08-03 05:07] LABS: Haptoglobin 203 mg/dL (29-370)
[2023-08-03 05:18] LABS: Eosinophils Percent Auto 0.8 % (0.9-7.0); Hematocrit 26.2 % (42.0-54.0); Hemoglobin 7.4 g/dL (14.0-18.0); Immature Granulocytes Abs Auto 0.01 10^3/uL (0.00-0.03); Immature Granulocytes Pct Auto 0.8 % (0.0-0.5); Lymphocytes Absolute Auto 0.6 10^3/uL (1.2-3.8); Lymphocytes Percent Auto 45.5 % (20.5-60.0); Mean Corpuscular HGB Conc 28.2 g/dL (29.9-35.2); Mean Corpuscular Hemoglobin 20.4 pg (25.9-34.0); Mean Corpuscular Volume 72.2 fL (80.0-94.0); Monocytes Absolute Auto 0.2 10^3/uL (0.3-0.8); Monocytes Percent Auto 15.2 % (1.7-12.0); Neutrophils Absolute Auto 0.5 10^3/uL (1.4-6.5); Platelet Count 103 10^3/uL (150-450); Red Blood Count 3.63 10^6/uL (4.70-6.10); Red Cell Distribution Width 18.6 % (11.0-15.0)
[2023-08-03 05:33] LABS: Alanine Aminotransferase 166 U/L (16-63); Albumin Globulin Ratio 0.7; Albumin Level 2.6 g/dL (3.4-5.0); Alkaline Phosphatase 51 U/L (46-116); Anion Gap 10.8; Aspartate Amino Transferase 148 U/L (15-37); BUN Creatinine Ratio 11.3; Bilirubin Total 0.3 mg/dL (0.2-1.0); Calcium 7.6 mg/dL (8.5-10.1); Carbon Dioxide 25.1 mmol/L (21.0-32.0); Chloride 106 mmol/L (98-107); Estimated GFR (African America >60 (>=60); Estimated GFR (Non-African Ame >60 (>=60); Globulin 3.7 g/dL; Glucose 93 mg/dL (74-106); Potassium 3.9 mmol/L (3.5-5.1); Sodium 138 mmol/L (136-145); Total Protein 6.3 g/dL (6.4-8.2)
[2023-08-03 06:07] LABS: Neutrophils Percent Auto 37.7 % (43.0-75.0); White Blood Count 1.3 10^3/uL (4.0-11.0)
[2023-08-03] MEDS: 0.9 % SODIUM CHLORIDE 1,000 ML 125 ML IV (06:59)
--- NOTE | 2023-08-03 07:46 | P.PN_ITS ---
Progress Note: Subjective Subjective Interval history: Patient does feel somewhat better today. Exam Constitutional Vital Signs, click to edit/add: Last Vital Signs Temp 99.2 F 08/03/23 04:00 Pulse 64 08/03/23 04:00 Resp 16 08/03/23 04:00 BP 104/62 08/03/23 04:00 Pulse Ox 91 L 08/03/23 04:00 O2 Del Method Room Air 08/03/23 04:00 Documenting provider has reviewed patient's vital signs: yes Common normals: no apparent distress HENMT Common normals: normocephalic Chest Common normals: inspection of chest normal Respiratory Common normals: normal respiratory effort and no retractions Cardio Common normals: regular rate and regular rhythm GI Common normals: Normal to inspection, nondistended, normoactive bowel sounds present Extremity Common normals: normal to inspection Progress Note: Objective Labs Labs: Short CBC 08/02/23 08/03/23 Range/Units 08:32 03:59 WBC 1.1 L* 1.3 L* (4.0-11.0) 10^3/uL Hgb 8.7 L 7.4 L (14.0-18.0) g/dL Hct 30.9 L 26.2 L (42.0-54.0) % Plt Count 120 L 103 L (150-450) 10^3/uL BMP 08/02/23 08/03/23 08:32 03:59 Sodium 135 L 138 Potassium 4.2 3.9 Chloride 99 106 Carbon Dioxide 26.0 25.1 BUN 15.0 14.0 Creatinine 1.53 H 1.24 Glucose 140 H 93 Calcium 8.1 L 7.6 L Liver Function 08/02/23 08/03/23 Range/Units 13:16 03:59 Total Bilirubin 0.4 0.3 (0.2-1.0) mg/dL Direct Bilirubin 0.1 (0.0-0.2) mg/dL AST 223 H 148 H (15-37) U/L ALT 222 H 166 H (16-63) U/L Alkaline Phosphatase 61 51 (46-116) U/L Albumin 3.1 L 2.6 L (3.4-5.0) g/dL Urine 08/02/23 Range/Units 10:06 Urine Color Yellow (YELLOW) Urine Clarity Clear (CLEAR) Urine pH 5.5 (5.0-9.0) Ur Specific [place] >=1.030 A (1.005-1.025) Urine Protein Trace (NEG/TRACE) mg/dL Urine Glucose (UA) Negative (NEGATIVE) mg/dL Progress Note: A&P Assessment and Plan (1) Neutropenic fever: Plan Fever, neutropenia, thrombocytopenia-consult to hematology oncology, started Zosyn and Levaquin. Repeated blood cultures last night with fever 100.9 Acute elevation in BUN/creatinine-likely related to dehydration-improved today Elevated LFT-possibly related to the above-improved Anemia-unable to assess acuteness. Down from previous day, repeat CBC at 11:00, likely delusional With neutropenic fever, likely total 3 to 4-day hospital stay, inpatient status for medically necessary treatment
[2023-08-03] MEDS: 0.9 % SODIUM CHLORIDE 1,000 ML 75 ML IV ×2 (08:14→20:38)
[2023-08-03] MEDS: FERROUS SULFATE 325 MG TABLET PO ×2 (08:33→20:38)
[2023-08-03] MEDS: PANTOPRAZOLE SODIUM 40 MG VIAL IV (09:28)
[2023-08-03 11:51] LABS: Hematocrit 27.3 % (42.0-54.0); Hemoglobin 7.6 g/dL (14.0-18.0); Mean Corpuscular HGB Conc 27.8 g/dL (29.9-35.2); Mean Corpuscular Hemoglobin 20.3 pg (25.9-34.0); Platelet Count 98 10^3/uL (150-450); Red Blood Count 3.74 10^6/uL (4.70-6.10); Red Cell Distribution Width 18.9 % (11.0-15.0)
[2023-08-03 12:04] LABS: White Blood Count 1.3 10^3/uL (4.0-11.0)
[2023-08-03 12:21] LABS: Eosinophils Absolute Manual 0.01 10^3/uL (0.00-0.70); Lymphocytes Absolute Manual 0.53 10^3/uL (1.20-3.80); Monocytes Absolute Manual 0.11 10^3/uL (0.30-0.80); Segmented Neut Absolute Manual 0.61 10^3/uL (1.4-6.5)
--- NOTE | 2023-08-03 14:26 | PC.NURSE ---
dr gonzalez with oncology rounding at this time
[2023-08-03 14:54] LABS: Occult Blood Positive
[2023-08-03] MEDS: LEVOFLOXACIN IN DEXTROSE 5 % 750 MG/150 ML IV.SOLN 100 MG IV (15:57)
[2023-08-03 16:14] LABS: EBV Ab VCA, IgM <36.0 U/mL (0.0-35.9)
--- NOTE | 2023-08-03 16:43 | P.CN_ITS ---
Consult Note: HPI Data of Consult Requesting Physician: Delta Pratt MD Primary Care Provider: Delta Pratt MD Consult Narrative Reason for consult: neutropenic fever Narrative: Chief complaint: NEUTROPENIC FEVER Narrative: Patient presented to the emergency room with weakness and fever. Found to be neutropenic. This is a change from a week ago. Other than just the general malaise and slight cough no other specific symptoms. Patient admitted for workup and treatment of neutropenic fever When I saw patient up on the medical surgical floor, he was resting comfortably, does have a moist sounding cough, cc:: CC: Delta Pratt MD [facility] Medical History (Updated 08/02/23 @ 18:57 by Gely Greenberg LPN) Hyperlipemia ?E78.5 - Hyperlipidemia, unspecified (ICD-10) Hypertension ?I10 - Essential (primary) hypertension (ICD-10) Surgical History (Updated 08/02/23 @ 18:57 by Gely Greenberg LPN) History of hip replacement ?Z96.649 - Presence of unspecified artificial hip joint (ICD-10) Social History (Updated 08/02/23 @ 18:59 by Gely Greenberg LPN) Within the past year, how often did you have a drink containing alcohol: monthly or less Within the past year, how many standard drinks containing alcohol did you have on a typical day: 1 or 2 Within the past year, how often did you have six or more drinks on one occasion: never Total score: 0 Score interpretation: A score less than 4 is consistent with normal alcohol consumption. Smoking status: Never smoker Second hand tobacco smoke exposure: No Non-prescribed substance use: denies use Known occupational exposures/hazards: No Highest level of school completed/degree received: high school graduate Are you now , , , , never or living with a partner: In a typical week, how many times do you talk on the telephone with family, friends, or neighbors: 3 or more times per week How often do you get together with friends or relatives: 3 or more times per week How often do you attend jehovah's witness or yazidi services: never Do you belong to any clubs or organizations such as jehovah's witness groups unions, fraternal or athletic groups, or school groups: no Total score: 2 Score interpretation: A score of greater than or equal to 2 indicates the lowest level of social isolation. Little interest or pleasure in doing things: not at all Feeling down, depressed, or hopeless: not at all Feel stressed/tense/nervous/anxious/difficulty sleeping: not at all Due to disability, difficulty making decisions: No Do you think of yourself as: straight/heterosexual Gender Identity: male Meds Home Medications and Allergies Home Medications Medication Instructions Recorded Confirmed Type atorvastatin 40 mg tablet 40 mg PO .QHS 07/27/23 08/02/23 History azilsartan medoxomil 80 mg tablet 80 mg PO DAILY 07/27/23 08/02/23 History (Edarbi) ferrous sulfate 325 mg (65 mg 325 mg PO BID 08/02/23 08/02/23 History iron) tablet (FeroSul) pantoprazole 40 mg tablet,delayed 40 mg PO BID 08/02/23 08/02/23 History release Allergies Allergy/AdvReac Type Severity Reaction Status Date / Time No Known Drug Allergies Allergy Verified 07/27/23 02:56 Exam Constitutional Vital Signs, click to edit/add: Last Vital Signs Temp 98.5 F 08/03/23 11:49 Pulse 72 08/03/23 11:49 Resp 16 08/03/23 11:49 BP 106/65 08/03/23 11:49 Pulse Ox 95 08/03/23 11:49 O2 Del Method Room Air 08/03/23 11:49 Results Labs Labs: Short CBC 08/03/23 08/03/23 Range/Units 03:59 11:29 WBC 1.3 L* 1.3 L* (4.0-11.0) 10^3/uL Hgb 7.4 L 7.6 L (14.0-18.0) g/dL Hct 26.2 L 27.3 L (42.0-54.0) % Plt Count 103 L 98 L (150-450) 10^3/uL BMP 08/03/23 03:59 Sodium 138 Potassium 3.9 Chloride 106 Carbon Dioxide 25.1 BUN 14.0 Creatinine 1.24 Glucose 93 Calcium 7.6 L Liver Function 08/03/23 Range/Units 03:59 Total Bilirubin 0.3 (0.2-1.0) mg/dL AST 148 H (15-37) U/L ALT 166 H (16-63) U/L Alkaline Phosphatase 51 (46-116) U/L Albumin 2.6 L (3.4-5.0) g/dL Assessment and Plan Assessment and Plan (1) Neutropenic fever:
[2023-08-04] VITALS (7 sets, daily range): BP systolic 97–125; BP diastolic 63–80; PULSE 60–66; RESP 16–18; TEMP 36.9–37.2; O2SAT 93–96
[2023-08-04] MEDS: PIPERACILLIN SODIUM/TAZOBACTAM 3.375 GM in 0.9 % SODIUM CHLORIDE 50 ML IV ×3 (04:03→19:14)
[2023-08-04 04:43] LABS: Basophils Percent Auto 0.5 % (0.2-2.0); Eosinophils Absolute Auto 0.1 10^3/uL (0.0-0.7); Eosinophils Percent Auto 3.1 % (0.9-7.0); Hematocrit 26.7 % (42.0-54.0); Hemoglobin 7.2 g/dL (14.0-18.0); Immature Granulocytes Abs Auto 0.02 10^3/uL (0.00-0.03); Lymphocytes Absolute Auto 0.9 10^3/uL (1.2-3.8); Lymphocytes Percent Auto 47.2 % (20.5-60.0); Mean Corpuscular Hemoglobin 20.1 pg (25.9-34.0); Mean Corpuscular Volume 74.4 fL (80.0-94.0); Monocytes Absolute Auto 0.2 10^3/uL (0.3-0.8); Monocytes Percent Auto 12.3 % (1.7-12.0); Neutrophils Absolute Auto 0.7 10^3/uL (1.4-6.5); Neutrophils Percent Auto 35.9 % (43.0-75.0); Platelet Count 87 10^3/uL (150-450); Red Blood Count 3.59 10^6/uL (4.70-6.10); Red Cell Distribution Width 19.2 % (11.0-15.0)
[2023-08-04 05:07] LABS: Alanine Aminotransferase 123 U/L (16-63); Albumin Globulin Ratio 0.7; Albumin Level 2.6 g/dL (3.4-5.0); Alkaline Phosphatase 49 U/L (46-116); Anion Gap 8.8; Aspartate Amino Transferase 94 U/L (15-37); Bilirubin Total 0.2 mg/dL (0.2-1.0); Calcium 7.6 mg/dL (8.5-10.1); Carbon Dioxide 26.2 mmol/L (21.0-32.0); Chloride 109 mmol/L (98-107); Estimated GFR (African America >60 (>=60); Estimated GFR (Non-African Ame >60 (>=60); Globulin 3.6 g/dL; Glucose 89 mg/dL (74-106); Sodium 140 mmol/L (136-145); Total Protein 6.2 g/dL (6.4-8.2)
--- NOTE | 2023-08-04 07:32 | P.PN_ITS ---
Progress Note: Subjective Subjective Interval history: Patient still with significant cough, worse in a.m., still occasionally productive. Exam Constitutional Vital Signs, click to edit/add: Last Vital Signs Temp 98.4 F 08/04/23 04:00 Pulse 61 08/04/23 04:00 Resp 16 08/04/23 04:00 BP 111/73 08/04/23 04:00 Pulse Ox 95 08/04/23 04:00 O2 Del Method Room Air 08/04/23 04:00 Documenting provider has reviewed patient's vital signs: yes Common normals: no apparent distress HENMT Common normals: normocephalic Chest Common normals: inspection of chest normal Respiratory Common normals: normal respiratory effort and no retractions Cardio Common normals: regular rate and regular rhythm GI Common normals: Normal to inspection, nondistended, normoactive bowel sounds present Extremity Common normals: normal to inspection Progress Note: Objective Labs Labs: Short CBC 08/03/23 08/04/23 Range/Units 11:29 04:04 WBC 1.3 L* 2.0 L (4.0-11.0) 10^3/uL Hgb 7.6 L 7.2 L (14.0-18.0) g/dL Hct 27.3 L 26.7 L (42.0-54.0) % Plt Count 98 L 87 L (150-450) 10^3/uL BMP 08/04/23 04:04 Sodium 140 Potassium 4.0 Chloride 109 H Carbon Dioxide 26.2 BUN 8.0 Creatinine 1.00 Glucose 89 Calcium 7.6 L Liver Function 08/04/23 Range/Units 04:04 Total Bilirubin 0.2 (0.2-1.0) mg/dL AST 94 H (15-37) U/L ALT 123 H (16-63) U/L Alkaline Phosphatase 49 (46-116) U/L Albumin 2.6 L (3.4-5.0) g/dL Progress Note: A&P Assessment and Plan (1) Neutropenic fever: Plan Fever, neutropenia, thrombocytopenia-blood culture pending x 4, sputum culture pending-fever free currently. Will maintain current antibiotics for 1 additional day until final cultures are resulted. Likely discharge tomorrow, repeat blood and sputum cultures it does make another fever Acute elevation in BUN/creatinine-likely related to dehydration-improved today Elevated LFT-possibly related to the above-improved Anemia-unable to assess acuteness. Hemoglobin down slightly today, does have positive occult blood so possible acute upper gastrointestinal blood loss anemia on top of what ever process is going on above. Continue with current proton pump inhibitor With neutropenic fever, likely total 3 to 4-day hospital stay, inpatient status for medically necessary treatment-will discuss further evaluation with oncology later today. If cultures come back tomorrow all negative will be discharged tomorrow
[2023-08-04] MEDS: ACETAMINOPHEN 500 MG TABLET 1000 MG PO ×2 (08:11→19:22)
[2023-08-04] MEDS: FERROUS SULFATE 325 MG TABLET PO ×2 (08:11→20:25)
[2023-08-04] MEDS: PANTOPRAZOLE SODIUM 40 MG VIAL IV (09:30)
[2023-08-04] MEDS: 0.9 % SODIUM CHLORIDE 250 ML 10 ML IV (11:24)
[2023-08-04] MEDS: LEVOFLOXACIN IN DEXTROSE 5 % 750 MG/150 ML IV.SOLN 100 MG IV (15:38)
[2023-08-05] VITALS: BP 126/69; PULSE 52; RESP 16; TEMP 36.9; O2SAT 95
[2023-08-05 04:00] VITALS: BP 119/70; PULSE 82; RESP 16; TEMP 36.8; O2SAT 95
[2023-08-05] MEDS: PIPERACILLIN SODIUM/TAZOBACTAM 3.375 GM in 0.9 % SODIUM CHLORIDE 50 ML IV (04:08)
[2023-08-05 04:18] VITALS: O2SAT 95
[2023-08-05 04:56] LABS: Basophils Percent Auto 0.3 % (0.2-2.0); Eosinophils Absolute Auto 0.2 10^3/uL (0.0-0.7); Eosinophils Percent Auto 6.3 % (0.9-7.0); Hematocrit 28.6 % (42.0-54.0); Hemoglobin 7.8 g/dL (14.0-18.0); Immature Granulocytes Abs Auto 0.01 10^3/uL (0.00-0.03); Immature Granulocytes Pct Auto 0.3 % (0.0-0.5); Lymphocytes Absolute Auto 1.1 10^3/uL (1.2-3.8); Lymphocytes Percent Auto 33.5 % (20.5-60.0); Mean Corpuscular HGB Conc 27.3 g/dL (29.9-35.2); Mean Corpuscular Hemoglobin 20.1 pg (25.9-34.0); Mean Corpuscular Volume 73.5 fL (80.0-94.0); Monocytes Absolute Auto 0.3 10^3/uL (0.3-0.8); Monocytes Percent Auto 9.2 % (1.7-12.0); Neutrophils Absolute Auto 1.6 10^3/uL (1.4-6.5); Neutrophils Percent Auto 50.4 % (43.0-75.0); Platelet Count 104 10^3/uL (150-450); Red Blood Count 3.89 10^6/uL (4.70-6.10); Red Cell Distribution Width 19.9 % (11.0-15.0); White Blood Count 3.2 10^3/uL (4.0-11.0)
[2023-08-05 05:20] LABS: Alanine Aminotransferase 110 U/L (16-63); Albumin Globulin Ratio 0.8; Albumin Level 2.7 g/dL (3.4-5.0); Alkaline Phosphatase 54 U/L (46-116); Anion Gap 11.4; Aspartate Amino Transferase 78 U/L (15-37); BUN Creatinine Ratio 5.8; Bilirubin Total 0.3 mg/dL (0.2-1.0); Calcium 8.1 mg/dL (8.5-10.1); Carbon Dioxide 26.4 mmol/L (21.0-32.0); Chloride 105 mmol/L (98-107); Estimated GFR (African America >60 (>=60); Estimated GFR (Non-African Ame >60 (>=60); Globulin 3.6 g/dL; Glucose 88 mg/dL (74-106); Potassium 3.8 mmol/L (3.5-5.1); Sodium 139 mmol/L (136-145); Total Protein 6.3 g/dL (6.4-8.2)
--- NOTE | 2023-08-05 07:38 | P.DS_ITS ---
DS: Providers Provider Date of admission: 08/02/23 11:56 Primary care physician: Delta Pratt MD Consults: 08/02/23 12:49 Consult to Oncology Routine Consulting Provider: Kisha Esteves Reason for consultation: neutropenic fever Has provider been notified: Yes DS: Diagnosis Discharge Diagnosis (1) Neutropenic fever: Plan Fever, neutropenia, thrombocytopenia- Acute elevation in BUN/creatinine-likely related to dehydration Elevated LFT Anemia- does have positive occult blood so acute upper gastrointestinal blood loss anemia on top of what ever process is going on above. DS: Summary Hospital Course Hospital Course: Patient presented to the emergency room with increasing weakness and fever, found to have significant neutropenia with an ANC of less than 1. Patient was admitted, placed on reverse isolation, IV antibiotics were started with Zosyn and levofloxacin. Consultation with hematology oncology. Other labs were ordered that are still pending at this time. He did spike a fever the following day and blood cultures were repeated. He has been fever free now for 48 hours. His white blood cell count is trending up, ANC is greater than 1 currently, his platelet count is also trending up, he does have acute blood loss anemia with a positive Hemoccult, his hemoglobin is been fairly steady. Is actually up slightly today. Liver function tests are also improving. Blood cultures on the initial set are negative, second set is pending, sputum culture pending, with fever free for 48 hours will discharge patient to home. Follow-up on cultures, have him follow-up with hematology next week as well. Medications see list. Status at Discharge Functional status at discharge: independent ambulation Overall status at discharge: patient is not back to baseline Time Spent with Patient Time attestation: Total time spent providing and/or coordinating discharge services: Time spent: less than 30 minutes Exam Constitutional Vital Signs, click to edit/add: Last Vital Signs Temp 98.3 F 08/05/23 04:00 Pulse 82 08/05/23 04:00 Resp 16 08/05/23 04:00 BP 119/70 08/05/23 04:00 Pulse Ox 95 08/05/23 04:18 O2 Del Method Room Air 08/05/23 04:18 Documenting provider has reviewed patient's vital signs: yes Common normals: no apparent distress HENMT Common normals: normocephalic Chest Common normals: inspection of chest normal Respiratory Common normals: normal respiratory effort and no retractions Cardio Common normals: regular rate and regular rhythm GI Common normals: Normal to inspection, nondistended, normoactive bowel sounds present Extremity Common normals: normal to inspection DS: Data Data Completed and Pending Labs on day of discharge: Labs from last 24 hours 08/05/23 08/02/23 04:16 11:22 WBC 3.2 L RBC 3.89 L Hgb 7.8 L Hct 28.6 L MCV 73.5 L MCH 20.1 L MCHC 27.3 L RDW 19.9 H Plt Count 104 L Neut % (Auto) 50.4 Lymph % (Auto) 33.5 [place] % (Auto) 9.2 Eos % (Auto) 6.3 Baso % (Auto) 0.3 Neut # (Auto) 1.6 Lymph # (Auto) 1.1 L [place] # (Auto) 0.3 Eos # (Auto) 0.2 Baso # (Auto) 0.0 Abs Immat Gran (auto) 0.01 Imm/Tot Granulo (auto) 0.3 Sodium 139 Potassium 3.8 Chloride 105 Carbon Dioxide 26.4 Anion Gap 11.4 BUN 6.0 L Creatinine 1.03 Est GFR ( Amer) >60 Est GFR (Non-Af Amer) >60 BUN/Creatinine Ratio 5.8 Glucose 88 Calcium 8.1 L Total Bilirubin 0.3 AST 78 H ALT 110 H Alkaline Phosphatase 54 Total Protein 6.3 L Albumin 2.7 L Globulin 3.6 Albumin/Globulin Ratio 0.8 Leuk/Lym Spec Type Comment Leuk/Lym Clinical Info Comment Leuk/Lymph Viability Comment Leuk/Lym Gating Strategy Comment Leuk/Lym Flow Cyto Comm Comment Leuk/Lym Leuk Assess Comment Leuk/Lym Comment Comment Leuk/Lym Phenotype Chart Comment Leuk/Lym Interpretation Comment L/L Sign Pathologist Comment Preliminary micro results at discharge 08/02/23 12:38 Sputum Culture - Preliminary Sputum - Expectorated Sputum 08/02/23 20:25 - Preliminary Blood NO GROWTH AT 36-48 HOURS. FINAL TO FOLLOW. 08/02/23 20:20 Blood Culture Result 1 - Preliminary Blood NO GROWTH AT 36-48 HOURS. FINAL TO FOLLOW. 08/02/23 11:26 - Preliminary Blood NO GROWTH AT 36-48 HOURS. FINAL TO FOLLOW. 08/02/23 11:22 Blood Culture Result 1 - Preliminary Blood NO GROWTH AT 36-48 HOURS. FINAL TO FOLLOW. Discharge Plan Discharge Condition: Good Discharge Medications: New amoxicillin-pot clavulanate 875-125 mg tablet 1 tab PO Q12H Qty: 20 0RF Continued atorvastatin 40 mg tablet 40 mg PO .QHS Edarbi 80 mg tablet 80 mg PO DAILY ferrous sulfate [FeroSul] 325 mg (65 mg iron) tablet 325 mg PO BID pantoprazole 40 mg tablet,delayed release (DR/EC) 40 mg PO BID
[2023-08-05] MEDS: PANTOPRAZOLE SODIUM 40 MG VIAL IV (08:29)
[2023-08-05] MEDS: FERROUS SULFATE 325 MG TABLET PO (08:29)
[2023-08-05 08:30] VITALS: BP 124/72; PULSE 67; RESP 18; TEMP 37; O2SAT 94
--- NOTE | 2023-08-06 14:19 | CM.DCFOLLOWU ---
1st attempt discharge follow up call, no answer 08/06/23
--- NOTE | 2023-08-09 13:58 | CM.DCFOLLOWU ---
2nd attempt discharge follow up call, no answer 08/09/23
--- NOTE | 2023-08-10 15:04 | CM.DCFOLLOWU ---
3rd attempt discharge follow up call, no answer 08/10/23
== END 2023-08-05 09:15 | disposition home or self-care (01) | DRG 809 ==
LOC: ER 11:37 → MS 12:01
PROVIDERS: Admitting Provider Family Medicine; Emergency Provider Emergency Medicine; PCP Family Medicine; Visit Provider Family Medicine
DX: D70.9 Neutropenia, unspecified (principal); D62 Acute posthemorrhagic anemia; R50.81 Fever presenting with conditions classified elsewhere; D75.839 Thrombocytosis, unspecified; E78.5 Hyperlipidemia, unspecified; I10 Essential (primary) hypertension; E86.0 Dehydration; Z96.649 Presence of unspecified artificial hip joint; R79.89 Other specified abnormal findings of blood chemistry; R19.5 Other fecal abnormalities; Z79.899 Other long term (current) drug therapy
CPT/HCPCS: 0202U; 36415; 71045; 80048; 80053; 80076; 81001; 82728; 83010; 83540; 83550; 83605; 83615; 83735; 83880; 84484; 85007; 85025; 85027; 85652; 86140; 86308; 86664; 86665; 87040; 87070; 87086; 87205; 87804; 87811; 93005; 94667; 94668; 94761; 96365; 96366; 96367; 96368; 96375; 96376; 99285; 99999; G0328

== ENCOUNTER 2023-08-09 09:38 | Outpatient (OUT) | payer OTHER, SELFPAY ==
--- OUTSIDE RECORDS SUMMARY | 2023-08-09 09:50 | XMS_ITS | CCD ---
Author Name Unknown Address [address] [place] [address] Organization [facility] Care Team Providers Care Enamel Pulverizer Name Role Phone HOY ., DR BLEVINS [...] Unavailable HOY ., DR BLEVINS Consulting Unavailable Hoy, Gen M Attending Unavailable HoyGen M Admitting Unavailable Allergies Allergy Classification Reported Allergen(s) Allergy Type Date of Onset Reaction(s) Facility (1 source) No Known Medication Allergies; Translations: [No Known Medication Allergies] Propensity to adverse reactions (disorder) [facility] Repository Problems Active Problems Problem Classification Problem [...] 02-08-2022 Episodic Other aftercare (1 source) [facility] [place] [facility] (current) drug therapy; Translations: [OTH HALFWAY CURRENT DRUG THERAPY] Onset: 02-08-2022 Episodic Other screening for suspected conditions (not mental disorders or infectious disease) (1 source) Encounter for screening for malignant neoplasm of prostate; Translations: [ENC SCREEN MALIG NEOPLASM PROSTATE] Onset: 02-08-2022 Episodic Results Test Name Value Interpretation Reference Range Facility ED Note-Physicianon 08-05-19 ED Note-Physician [id number] 30 [id number] 0TIFF Normal [facility] RAD - CT Reporton 08-05-2023 RAD - CT Report [id number] 0TIFF Normal [facility] Dragan 08-02-2023 L Specimen: [id number] Received: 08/03/23 Status: SOUT Req Num: [id number] Spec Type: Impression Subm Dr: Gen Peña MD Tissues: PATHPER Procedures: PATHREVIEW Age/ Patient Sex Location Account Attending Physician Eddie Martinez 53/M [place] [id number] Gen Peña MD SPEC NUM: [id number] RECD: 08/03/23 STATUS: SOUT REQ NUM: [id number] ANDREA: 08/02/[address]: Gen Peña MD ENTERED: 08/03/[address]: SPEC TYPE: Impression DEPT: [facility] ENTERED BY: [id number] RECV BY: [id number] ORDERED: PATHREVIEW ORDERED: PATHREVIEW Pathologist Review Abnormal CBC for peripheral blood smear review: -Severe leukopenia with severe neutropenia, severe lymphocytopenia, and severe monocytopenia -Moderate anemia of mild to moderate microcytic type, including moderate anisocytosis with moderate hypochromia, moderate microcytosis, few occasional elliptocytes or ovalocytes, and at least rare polychromatophils -Mild thrombocytopenia, including few occasional large platelets -No obvious morphological abnormality of the leukocyte population, otherwise is also very limited in assessment due to the only rare cells available in the adequate portion of the smear for evaluation Comment: -The presence of pancytopenia in the middle-age male patient is very abnormal, especially with the apparent severe leukopenia that can also occur in various situations including severe drug toxicity including cytotoxic chemotherapy or immune or idiopathic related causes by other drugs, bone marrow failure, overwhelming infections, dietary deficiency (B12 or iron), bone marrow infiltration such as myelofibrosis, autoimmune disease, immunodeficiency, or hypersplenism -Microcytic anemia due to iron deficiency seems to be another separate medical condition, and is confirmed by the test result of low serum iron -The noted hypoalbuminemia and moderately high liver enzymes also suggest possible chronic hepatitis and debilitation that can partly contribute to the anemia and thrombocytopenia -Continuous clinical correlation and appropriate medical management, including infection prevention or precautions measurement, and close laboratory follow-ups are also suggested ---- Specimen: [id number] Received: 08/03/23 Status: DEION Deana Num: [id number] Spec Type: Impression Subm Dr: Gen Peña MD Tissues: PATHPER Procedures: PATHREVIEW ---- Patient: Eddie Martinez [id number] (Continued) ---- Specimen: [id number] Received: 08/03/23 (Continued) Pathologist Review (Continued) Signed (signature on file) Tammy Mathew MD 08/05/23 1828 ---- Specimen: [id number] Received: 08/03/23 Status: DEION Garciarashmi Num: [id number] Spec Type: Impression Subm Dr: Gen Peña MD Tissues: PATHPER Procedures: PATHREVIEW ---- Patient: DiortiffanieEddie [id number] (Continued) ---- Specimen: [id number] Received: 08/03/23 (Continued) Pathologist Review (Continued) CPT: 37280 CBC No results available. ---- ---- Specimen: [id number] Received: 08/03/23-1349 Status: DEION Leblanc Num: [id number] Spec Type: Impression Subm Dr: Gen Peña MD Tissues: PATHPER Procedures: PATHREVIEW ---- Patient: Eddie Martinez [id number] (Continued) ---- Signed (signature on file) Tammy Mathew MD 08/05/23 1828 Normal [facility] Physician Referralon 024 Physician Referral [id number] 30 [id number] 0TIFF Normal [facility] T4 LABCORPon 02-05-2022 T4 [Mass/Vol] 9.2 ug/dL Normal 4.5-12.0 [facility] Comment on above: Performed By: #### T 4LC #### [facility] [address] [place] [address] Dr. Rayna Mathew CBC AUTO DIFFon 02-04-2022 BASO # 0.0 103/ul Normal 0.0-0.1 [facility] Comment on above: Performed By: #### C BC #### [facility] [address] [place] [address] Dr. Rayna Mathew Basophils/100 WBC (Bld) 0.7 % Normal 0.2-2.0 [facility] Comment on above: Performed By: #### C BC #### [facility] [address] [place] [address] Dr. Rayna Mathew EO # 0.4 103/ul Normal 0.0-0.7 [facility] Comment on above: Performed By: #### C BC #### [facility] [address] [place] [address] Dr. Rayna Mathew Eosinophils/100 WBC (Bld) 6.7 % Normal 0.9-7.0 [facility] Comment on above: Performed By: #### C BC #### [facility] [address] [place] [address] Dr. Rayna Mathew Erythrocyte distribution width (RBC) [Ratio] 13.5 % Normal 11.0-15.0 [facility] Comment on above: Performed By: #### C BC #### [facility] [address] [place] [address] Dr. Rayna Mathew Hematocrit (Bld) [Volume fraction] 37.2 % Critically low 42.0-54.0 [facility] Comment on above: Performed By: #### C BC #### [facility] [address] [place] [address] Dr. Rayna Mathew Hemoglobin (Bld) [Mass/Vol] 11.5 g/dL Critically low 14.0-18.0 [facility] Comment on above: Performed By: #### C BC #### [facility] [address] [place] [address] Dr. Rayna Mathew IG # 0.02 10e3/ul Normal 0.00-0.03 [facility] Comment on above: Performed By: #### C BC #### [facility] [address] [place] [address] Dr. Rayna Mathew IG % 0.3 % Normal 0.0-0.5 [facility] Comment on above: Performed By: #### C BC #### [facility] [address] [place] [address] Dr. Rayna Mathew LYMPH # 1.4 103/ul Normal 1.2-3.8 [facility] Comment on above: Performed By: #### C BC #### [facility] [address] [place] [address] Dr. Rayna Mathew Lymphocytes/100 WBC (Bld) 23.8 % Normal 20.5-60.0 [facility] Comment on above: Performed By: #### C BC #### [facility] [address] [place] [address] Dr. Rayna Mathew MANUAL DIFF REQ NO Normal [facility] Comment on above: Performed By: #### C BC #### [facility] [address] [place] [address] Dr. Rayna Mathew MCH (RBC) [Entitic mass] 27.4 pg Normal 25.9-34.0 [facility] Comment on above: Performed By: #### C BC #### [facility] [address] [place] [address] Dr. Rayna Mathew MCHC (RBC) [Mass/Vol] 30.9 g/dL Normal 29.9-35.2 [facility] Comment on above: Performed By: #### C BC #### [facility] [address] [place] [address] Dr. Rayna Mathew MCV (RBC) [Entitic vol] 88.6 fL Normal 80.0-94.0 [facility] Comment on above: Performed By: #### C BC #### [facility] [address] [place] [address] Dr. Rayna Mathew MONO # 0.6 103/ul Normal 0.3-0.8 [facility] Comment on above: Performed By: #### C BC #### [facility] [address] [address] [address] Rayna Mathew Monocytes/100 WBC (Bld) 9.2 % Normal 1.7-12.0 [facility] Comment on above: Performed By: #### C BC #### [facility] [address] [address] [address] Rayna Mathew NEUT # 3.5 103/ul Normal 1.4-6.5 [facility] Comment on above: Performed By: #### C BC #### [facility] [address] [place] [address] Dr. Rayna Mathew Neutrophils/100 WBC (Bld) 59.3 % Normal 43.0-75.0 [facility] Comment on above: Performed By: #### C BC #### [facility] [address] [place] [address] Dr. Rayna Mathew Platelet mean volume (Bld) [Entitic vol] 10.4 fL Normal 9.5-13.5 [facility] Comment on above: Performed By: #### C BC #### [facility] [address] [place] [address] Dr. Rayna Mathew PLT 182 103/ul Normal 150-450 [facility] Comment on above: Performed By: #### C BC #### [facility] [address] [place] [address] Dr. Rayna Mathew RBC 4.20 106/ul Critically low 4.70-6.10 [facility] Comment on above: Performed By: #### C BC #### [facility] [address] [place] [address] Dr. Rayna Mathew WBC 6.0 103/ul Normal 4.0-11.0 [facility] Comment on above: Performed By: #### C BC #### [facility] [address] [place] [address] Dr. Rayna Mathew FREE T3on 02-04-2022 FREE T3 3.28 pg/mlL Normal 2.18-3.98 [facility] Comment on above: Performed By: #### F T3, TSH, CMP, LIPID #### [facility] [address] [address] [address] Rayna Mathew GLYCOHEMOGLOBIN A1Con 2021 ADA RECOMMENDATION SEE BELOW Normal [facility] Comment on above: Result Comment: ADA RECOMMENDED LIMIT 4.0 - 6.0 ADA THERAPEUTIC TARGET < 7.0 ACTION SUGGESTED > 7.0 Performed By: #### A 1C #### [facility] [address] [address] [address] Rayna Mathew Glucose [Mass/Vol] 123 mg/dL Normal [facility] Comment on above: Performed By: #### A 1C #### [facility] [address] [address] [address] Rayna Mathew HbA1c (Bld) [Mass fraction] 5.9 % Normal 4.5-6.2 [facility] Comment on above: Performed By: #### A 1C #### [facility] [address] [place] [address] Dr. Rayna Mathew LIPID PROFILEon 02-04-2022 CHOL-HDL RATIO NORM SEE BELOW Normal [facility] Comment on above: Result Comment: 3.3 - 4.4 LOW RISK 4.4 - 7.1 AVERAGE RISK 7.1 - 11.0 MODERATE RISK >11.0 HIGH RISK Performed By: #### F T3, TSH, CMP, LIPID #### [facility] [address] [place] [address] Dr. Rayna Mathew Cholesterol [Mass/Vol] 158 mg/dL Normal <=200 [facility] Comment on above: Performed By: #### F T3, TSH, CMP, LIPID #### [facility] [address] [place] [address] Dr. Rayna Mathew Cholesterol in HDL [Mass/Vol] 47 mg/dL Normal 40-60 [facility] Comment on above: Performed By: #### F T3, TSH, CMP, LIPID #### [facility] [address] [place] [address] Dr. Rayna Mathew Cholesterol in LDL [Mass/Vol] 98.0 mg/dL Normal [facility] Comment on above: Performed By: #### F T3, TSH, CMP, LIPID #### [facility] [address] [address] [address] Rayna Mathew Cholesterol.total/Ch olesterol in HDL [Mass ratio] 3.4 {ratio} Normal [facility] Comment on above: Performed By: #### F T3, TSH, CMP, LIPID #### [facility] [address] [address] [address] Rayna Mathew HDL NORMAL > or = 60 mg/dl - LO W CARDIOVASCULAR RISK <40 mg/dl - HIGH CARDIOVASCULAR RISK Normal [facility] Comment on above: Performed By: #### F T3, TSH, CMP, LIPID #### [facility] [address] [address] [address] Rayna Mathew LDL CALC NORMAL SEE BELOW Normal [facility] Comment on above: Result Comment: <100 mg/dl OPTIMAL 100 - 129 mg/dl NEAR OR ABOVE OPTIMAL 130 - 159 mg/dl BORDERLINE HIGH 160 - 189 mg/dl HIGH >190 mg/dl VERY HIGH Performed By: #### F T3, TSH, CMP, LIPID #### [facility] [address] [address] [address] Rayna Mathew Triglyceride [Mass/Vol] 65 mg/dL Normal <=150 [facility] Comment on above: Performed By: #### F T3, TSH, CMP, LIPID #### [facility] [address] [address] [address] Rayna Mathew VLDL CALC 13.0 mg/dL Normal [facility] Comment on above: Performed By: #### F T3, TSH, CMP, LIPID #### [facility] [address] [address] [address] Rayna Mathew PROF 14(COMP METB)on 022 Albumin [Mass/Vol] 3.8 g/dL Normal 3.4-5.0 [facility] Comment on above: Performed By: #### F T3, TSH, CMP, LIPID #### [facility] [address] [address] [address] Rayna Mathew Albumin/Globulin [Mass ratio] 0.9 {ratio} Normal [facility] Comment on above: Performed By: #### F T3, TSH, CMP, LIPID #### [facility] [address] [address] [address] Rayna Mathew ALP [Catalytic activity/Vol] 76 U/L Normal 46-116 [facility] Comment on above: Performed By: #### F T3, TSH, CMP, LIPID #### [facility] [address] [address] [address] Rayna Mathew ALT [Catalytic activity/Vol] 109 U/L Critically high 16-63 [facility] Comment on above: Performed By: #### F T3, TSH, CMP, LIPID #### [facility] [address] [address] [address] Rayna Mathew Anion gap [Moles/Vol] 11.1 mmol/L Normal [facility] Comment on above: Performed By: #### F T3, TSH, CMP, LIPID #### [facility] [address] [address] [address] Rayna Mathew AST [Catalytic activity/Vol] 79 U/L Critically high 15-37 [facility] Comment on above: Performed By: #### F T3, TSH, CMP, LIPID #### [facility] [address] [address] [address] Rayna Mathew Bilirubin [Mass/Vol] 0.4 mg/dL Normal 0.2-1.0 [facility] Comment on above: Performed By: #### F T3, TSH, CMP, LIPID #### [facility] [address] [address] [address] Rayna Mathew Calcium [Mass/Vol] 9.0 mg/dL Normal 8.5-10.1 [facility] Comment on above: Performed By: #### F T3, TSH, CMP, LIPID #### [facility] [address] [address] [address] Rayna Mathew Chloride [Moles/Vol] 102 mmol/L Normal 98-107 [facility] Comment on above: Performed By: #### F T3, TSH, CMP, LIPID #### [facility] [address] [address] [address] Rayna Mathew CO2 [Moles/Vol] 29.5 mmol/L Normal 21.0-32.0 [facility] Comment on above: Performed By: #### F T3, TSH, CMP, LIPID #### [facility] [address] [address] [address] Rayna Mathew Creatinine [Mass/Vol] 0.96 mg/dL Normal 0.70-1.30 [facility] Comment on above: Performed By: #### F T3, TSH, CMP, LIPID #### [facility] [address] [address] [address] Rayna Mathew EGFR-AF MAURITANIAN >60 Normal >=60 [facility] Comment on above: Performed By: #### F T3, TSH, CMP, LIPID #### [facility] [address] [place] [address] Dr. Rayna Mathew EGFR-NON AF MAURITANIAN >60 Normal >=60 [facility] Comment on above: Performed By: #### F T3, TSH, CMP, LIPID #### [facility] [address] [address] [address] Rayna Mathew Globulin (S) [Mass/Vol] 4.0 g/dL Normal [facility] Comment on above: Performed By: #### F T3, TSH, CMP, LIPID #### [facility] [address] [address] [address] Rayna Mathew Glucose [Mass/Vol] 121 mg/dL Critically high 74-106 [facility] Comment on above: Performed By: #### F T3, TSH, CMP, LIPID #### [facility] [address] [address] [address] Rayna Mathew Potassium [Moles/Vol] 4.6 mmol/L Normal 3.5-5.1 [facility] Comment on above: Performed By: #### F T3, TSH, CMP, LIPID #### [facility] [address] [address] [address] Rayna Mathew Protein [Mass/Vol] 7.8 g/dL Normal 6.4-8.2 [facility] Comment on above: Performed By: #### F T3, TSH, CMP, LIPID #### [facility] [address] [place], [place] [address] Dr. Rayna Mathew Sodium [Moles/Vol] 138 mmol/L Normal 136-145 [facility] Comment on above: Performed By: #### F T3, TSH, CMP, LIPID #### [facility] [address] [address] [address] Rayna Mathew Urea nitrogen [Mass/Vol] 11.0 mg/dL Normal 7.0-18.0 [facility] Comment on above: Performed By: #### F T3, TSH, CMP, LIPID #### [facility] [address] [place], [place] [address] Dr. Rayna Mathew Urea nitrogen/Creatinine [Mass ratio] 11.5 mg/mg Normal [facility] Comment on above: Performed By: #### F T3, TSH, CMP, LIPID #### [facility] [address] [address] [address] Rayna Mathew TSHon 02-04-2022 TSH 1.905 uIU/mL Normal 0.358-3.740 [facility] Comment on above: Performed By: #### F T3, TSH, CMP, LIPID #### [facility] [address] [address] [address] Rayna Mathew Encounters Encounter Date Encounter Type Care Provider Facility Start: 08-03-2023 ambulatory Facility:[facility] Start: 08-02-2023 End: 08-02-2023 ambulatory Gen Peña Facility:[facility] Start: 07-30-2023 ambulatory Facility:[facility] Start: 07-14-2022 End: 07-15-[address] GEN PEÑA . Facility:[facility] Start: 02-10-[address] GEN PEÑA . Facili ty:[facility] Start: 02-08-2022 Encounter for genera l adult medical examination without abnormal findings DR GEN PEÑA . [facility] Start: 02-04-2022 End: 02-05-[address] GEN PEÑA . Facility:[facility] Start: 02-04-2022 End: 02-05-2022 Encounter for general adult medical examination without abnormal findings DR GEN PEÑA . Facility:[facility] Start: 08-01-[address] GEN PEÑA . Facili ty:[facility] Procedures Date Procedure Procedure Detail Performing Clinician Start: 02-04-[address] BERE PEÑA . Comment on above: Performed By: #### P [facility] #### [facility] [address] [address] [address] Rayna Mathew Payers Date Payer Category Payer Self-pay 2018 Private Health Insurance 1970 Unknown [id number] 2.16.84 [id number] 1971 Unknown [id number] 2.16.84 [id number] 1971 Unknown [id number] 2.16.84 [id number] 1971 Unknown [id number] 2.16.84 [id number] 1971 Unknown [id number] 2.16.8 [id number] 1959 Self-pay [id number] 1958 Unknown [id number] Unknown [id number] 2.16.8 [id number] Summary Purpose Family History No Family History Records FoundNo Family History Records FoundNo Family History Records Found Advance Directives No Advanced Directives Records FoundNo Advanced Directives Records FoundNo Advanced Directives Records Found Additional Source Comments (unrecognized sect ion and content) No Status Records FoundNo Status Records FoundNo Status Records Found INFORMATION SOURCE (unrecogn ized section and content) DATE CREATED AUTHOR 07/18/2022 [facility] DATE CREATED AUTHOR AUTHOR'S ORGANIZ ATION 08/06/2023 [facility] DATE CREATED AUTHOR AUTHOR'S ORGANIZ ATION 08/07/2023 [facility] FOR RECORDS PERTAINING TO PATIENTS WHO ARE [...] BE BASED ON THE PRIMARY CLINICAL RECORDS. [facility] [employer] [facility]. provides no warranty or guarantee of the accuracy or completeness of information in this document.
[2023-08-09 10:11] LABS: Hematocrit 31.3 % (42.0-54.0); Hemoglobin 8.7 g/dL (14.0-18.0); Mean Corpuscular HGB Conc 27.8 g/dL (29.9-35.2); Mean Corpuscular Hemoglobin 20.6 pg (25.9-34.0); Mean Corpuscular Volume 74.2 fL (80.0-94.0); Mean Platelet Volume 10.5 fL (9.5-13.5); Platelet Count 261 10^3/uL (150-450); Red Blood Count 4.22 10^6/uL (4.70-6.10); White Blood Count 5.6 10^3/uL (4.0-11.0)
[2023-08-09 10:44] LABS: Internal Control Within Normal Limits; Respiratory Syncytial Virus Not Detected (NOT DETECTE); SARS-CoV-2 Ag NEGATIVE (NEGATIVE)
[2023-08-09 10:45] LABS: Influenza Virus A Antigen Negative; Influenza Virus B Antigen Negative; Internal Control Within Normal Limits
[2023-08-09 10:49] LABS: Anisocytosis 2+; Eosinophils Absolute Manual 0.05 10^3/uL (0.00-0.70); Lymphocytes Absolute Manual 1.51 10^3/uL (1.20-3.80); Monocytes Absolute Manual 0.56 10^3/uL (0.30-0.80); Segmented Neut Absolute Manual 3.47 10^3/uL (1.4-6.5)
[2023-08-09 10:50] LABS: Hypochromasia 1+; Microcytosis 2+
[2023-08-09 10:52] LABS: Alanine Aminotransferase 89 U/L (16-63); Albumin Globulin Ratio 0.8; Albumin Level 3.2 g/dL (3.4-5.0); Alkaline Phosphatase 59 U/L (46-116); Anion Gap 15.4; Aspartate Amino Transferase 79 U/L (15-37); BUN Creatinine Ratio 8.3; Bilirubin Total 0.5 mg/dL (0.2-1.0); C Reactive Protein 0.91 mg/dL (<=0.50); Calcium 8.4 mg/dL (8.5-10.1); Chloride 103 mmol/L (98-107); Estimated GFR (African America >60 (>=60); Estimated GFR (Non-African Ame >60 (>=60); Globulin 4.1 g/dL; Glucose 107 mg/dL (74-106); Potassium 4.4 mmol/L (3.5-5.1); Sodium 139 mmol/L (136-145); Total Protein 7.3 g/dL (6.4-8.2)
[2023-08-09 10:57] LABS: Erythrocyte Sedimentation Rate 121 mm/hr (<=20)
[2023-08-09 16:07] LABS: SARS-CoV-2 NAA NOT DETECTED (NOT DETECTE)
== END 2023-08-09 09:39 | disposition home or self-care (01) ==
PROVIDERS: PCP Family Medicine; Visit Provider Family Medicine
DX: I10 Essential (primary) hypertension (principal)
CPT/HCPCS: 36415; 80053; 85007; 85027; 85652; 86140; 87420; 87635; 87804; 87811

== ENCOUNTER 2023-08-10 07:26 | Outpatient (RCR) | payer OTHER, SELFPAY | END 2023-08-22 23:59 | disposition home or self-care (01) | LOC: INF 07:26 | PROVIDERS: PCP Family Medicine; Visit Provider Internal Medicine Hematology & Oncology | DX: D64.9 Anemia, unspecified (principal); I10 Essential (primary) hypertension; M19.90 Unspecified osteoarthritis, unspecified site; K21.9 Gastro-esophageal reflux disease without esophagitis; Z96.643 Presence of artificial hip joint, bilateral; Z87.891 Personal history of nicotine dependence; D70.9 Neutropenia, unspecified | CPT/HCPCS: G0463 ==

== ENCOUNTER 2023-09-13 11:16 | Outpatient (OUT) | payer OTHER, SELFPAY ==
--- OUTSIDE RECORDS SUMMARY | 2023-09-13 11:30 | XMS_ITS | CCD ---
Author Organization [facility] Care Team Providers Care Site Safety Coordinator Name Role Phone ANDERSONY ., DR BLEVINS Admitting Unavailable HOY ., [...] Consulting Unavailable Hoy, Gen M Attending Unavailable Hoy, Gen M Admitting Unavailable Allergies Allergy Classification Reported Allergen(s) Allergy Type Date of Onset Reaction(s) Facility (1 source) No Known Medication Allergies; Translations: [No Known Medication Allergies] Propensity to adverse reactions (disorder) [facility] Repository Problems Active Problems Problem Classification [...] Episodic Other aftercare (1 source) 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; Translations: [OTH CARE HOME CURRENT DRUG THERAPY] Onset: 02-08-2022 Episodic Other screening for suspected conditions (not mental disorders or infectious disease) (1 source) Encounter for screening for malignant neoplasm of prostate; Translations: [ENC SCREEN MALIG NEOPLASM PROSTATE] Onset: 02-08-2022 Episodic Results Test Name Value Interpretation Reference Range Facility ED Note-Physicianon 08-05-19 ED Note-Physician [id number]#1.0 0TIFF Normal [facility] RAD - CT Reporton 08-05-2023 RAD - CT Report [id number] 0TIFF Normal [facility] Dragan 08-02-2023 L Specimen: [id number] Received: 08/03/23 Status: SOUT Req Num: [id number] Spec Type: Impression Subm Dr: Gen Peña MD Tissues: PATHPER Procedures: PATHREVIEW Age/ Patient Sex Location Account Attending Physician Eddie Martinez O 53/M [place] [id number] Gen Peña MD SPEC NUM: [id number] RECD: 08/03/23 STATUS: SOUT REQ NUM: [id number] ANDREA: 08/02/[address]: Gen Peña MD ENTERED: 08/03/[address] [facility] [address]: SPEC TYPE: Impression DEPT: [facility] ENTERED BY: [id number] RECV BY: [id number] ORDERED: PATHREVIEW ORDERED: PATHREVIEW Pathologist Review Abnormal [...] ---- Specimen: [id number] Received: 08/03/23 Status: DEION Leblanc Num: [id number] Spec Type: Impression Subm Dr: Gen Peña MD Tissues: PATHPER Procedures: PATHREVIEW ---- Patient: Eddie Martinez [id number] (Continued) ---- Specimen: [id number] Received: 08/03/23 (Continued) Pathologist Review (Continued) Signed (signature on file) Tammy Mathew MD 08/05/23 1828 ---- Specimen: [id number] Received: 08/03/23-1349 Status: DEION Leblanc Num: [id number] Spec Type: Impression Subm Dr: Gen Peña MD Tissues: PATHPER Procedures: PATHREVIEW ---- Patient: DiortiffanieEddie [id number] (Continued) ---- Specimen: [id number] Received: 08/03/23-1349 (Continued) Pathologist Review (Continued) CPT: 22704 CBC No results available. ---- ---- Specimen: [id number] Received: 08/03/23-1349 Status: DEION Leblanc Num: [id number] Spec Type: Impression Subm Dr: Gen Peña MD Tissues: PATHPER Procedures: PATHREVIEW ---- Patient: Eddie Martinez [id number] (Continued) ---- Signed (signature on file) Tammy Mathew MD 08/05/23 1828 Normal [facility] Physician Referralon 024 Physician Referral [id number] 0TIFF Normal [facility] T4 LABCORPon 02-05-2022 T4 [Mass/Vol] 9.2 ug/dL Normal 4.5-12.0 [facility] Comment on above: Performed By: #### T 4 #### [facility] [address] [place] [address] Dr. Rayna Mathew CBC AUTO DIFFon 02-04-2022 BASO # 0.0 103/ul Normal 0.0-0.1 [facility] Comment on above: Performed By: #### C BC #### [facility] [address] [place] [address] Dr. Rayna Mathew Basophils/100 WBC (Bld) 0.7 % Normal 0.2-2.0 [facility] Comment on above: Performed By: #### C BC #### [facility] [address] [place] [address] Dr. Rayna Mathew EO # 0.4 103/ul Normal 0.0-0.7 [facility] Comment on above: Performed By: #### C BC #### [facility] [address] [place] [address] Dr. Rayna Mathew Eosinophils/100 WBC (Bld) 6.7 % Normal 0.9-7.0 [facility] Comment on above: Performed By: #### C BC #### [facility] [address] [place] [address] Dr. Rayna Mathew Erythrocyte distribution width (RBC) [Ratio] 13.5 % Normal 11.0-15.0 [facility] Comment on above: Performed By: #### C BC #### [facility] [address] [place] [address] Dr. Rayna Mathew Hematocrit (Bld) [Volume fraction] 37.2 % Critically low 42.0-54.0 [facility] Comment on above: Performed By: #### C BC #### [facility] [address] [place] [address] Dr. Rayna Mathew Hemoglobin (Bld) [Mass/Vol] 11.5 g/dL Critically low 14.0-18.0 [facility] Comment on above: Performed By: #### C BC #### [facility] [address] [place] [address] Dr. Rayna Mathew IG # 0.02 10e3/ul Normal 0.00-0.03 [facility] Comment on above: Performed By: #### C BC #### [facility] [address] [place] [address] Dr. Rayna Mathew IG % 0.3 % Normal 0.0-0.5 [facility] Comment on above: Performed By: #### C BC #### [facility] [address] [place] [address] Dr. Rayna Mathew LYMPH # 1.4 103/ul Normal 1.2-3.8 [facility] Comment on above: Performed By: #### C BC #### [facility] [address] [place] [address] Dr. Rayna Mathew Lymphocytes/100 WBC (Bld) 23.8 % Normal 20.5-60.0 [facility] Comment on above: Performed By: #### C BC #### [facility] [address] [place] [address] Dr. Rayna Mathew MANUAL DIFF REQ NO Normal [facility] Comment on above: Performed By: #### C BC #### [facility] [address] [place] [address] Dr. Rayna Mathew MCH (RBC) [Entitic mass] 27.4 pg Normal 25.9-34.0 [facility] Comment on above: Performed By: #### C BC #### [facility] [address] [place] [address] Dr. Rayna Mathew MCHC (RBC) [Mass/Vol] 30.9 g/dL Normal 29.9-35.2 [facility] Comment on above: Performed By: #### C BC #### [facility] [address] [place] [address] Dr. Rayna Mathew MCV (RBC) [Entitic vol] 88.6 fL Normal 80.0-94.0 [facility] Comment on above: Performed By: #### C BC #### [facility] [address] [place] [address] Dr. Rayna Mathew MONO # 0.6 103/ul Normal 0.3-0.8 [facility] Comment on above: Performed By: #### C BC #### [facility] [address] [place] [address] Dr. Rayna Mathew Monocytes/100 WBC (Bld) 9.2 % Normal 1.7-12.0 [facility] Comment on above: Performed By: #### C BC #### [facility] [address] [place] [address] Dr. Rayna Mathew NEUT # 3.5 103/ul Normal 1.4-6.5 [facility] Comment on above: Performed By: #### C BC #### [facility] [address] [place] [address] Dr. Rayna Mathew Neutrophils/100 WBC (Bld) 59.3 % Normal 43.0-75.0 [facility] Comment on above: Performed By: #### C BC #### [facility] [address] [place] [address] Dr. Rayna Mathew Platelet mean volume (Bld) [Entitic vol] 10.4 fL Normal 9.5-13.5 [facility] Comment on above: Performed By: #### C BC #### [facility] [address] [place] [address] Dr. Rayna Mathew PLT 182 103/ul Normal 150-450 [facility] Comment on above: Performed By: #### C BC #### [facility] [address] [place] [address] Dr. Rayna Mathew RBC 4.20 106/ul Critically low 4.70-6.10 [facility] Comment on above: Performed By: #### C BC #### [facility] [address] [place] [address] Dr. Rayna Mathew WBC 6.0 103/ul Normal 4.0-11.0 [facility] Comment on above: Performed By: #### C BC #### [facility] [address] [place] [address] Dr. Rayna Mathew FREE T3on 02-04-2022 FREE T3 3.28 pg/mlL Normal 2.18-3.98 [facility] Comment on above: Performed By: #### F T3, TSH, CMP, LIPID #### [facility] [address] [place] [address] Dr. Rayna Mathew GLYCOHEMOGLOBIN A1Con 2021 ADA RECOMMENDATION SEE BELOW Normal [facility] Comment on above: Result Comment: ADA RECOMMENDED LIMIT 4.0 - 6.0 ADA THERAPEUTIC TARGET < 7.0 ACTION SUGGESTED > 7.0 Performed By: #### A 1C #### [facility] [address] [address] [address] Rayna Mathew Glucose [Mass/Vol] 123 mg/dL Normal [facility] Comment on above: Performed By: #### A 1C #### [facility] [address] [address] [address] Rayna Mathew HbA1c (Bld) [Mass fraction] 5.9 % Normal 4.5-6.2 [facility] Comment on above: Performed By: #### A 1C #### [facility] [address] [place] [address] Dr. Rayna Mathew LIPID PROFILEon 02-04-2022 CHOL-HDL RATIO NORM SEE BELOW Normal [facility] Comment on above: Result Comment: 3.3 - 4.4 LOW RISK 4.4 - 7.1 AVERAGE RISK 7.1 - 11.0 MODERATE RISK >11.0 HIGH RISK Performed By: #### F T3, TSH, CMP, LIPID #### [facility] [address] [address] [address] Rayna Mathew Cholesterol [Mass/Vol] 158 mg/dL Normal <=200 [facility] Comment on above: Performed By: #### F T3, TSH, CMP, LIPID #### [facility] [address] [address] [address] Rayna Mathew Cholesterol in HDL [Mass/Vol] 47 mg/dL Normal 40-60 [facility] Comment on above: Performed By: #### F T3, TSH, CMP, LIPID #### [facility] [address] [address] [address] Rayna Mathew Cholesterol in LDL [Mass/Vol] 98.0 mg/dL Normal [facility] Comment on above: Performed By: #### F T3, TSH, CMP, LIPID #### [facility] [address] [address] [address] Rayna Mathew Cholesterol.total/Ch olesterol in HDL [Mass ratio] 3.4 {ratio} Normal [facility] Comment on above: Performed By: #### F T3, TSH, CMP, LIPID #### [facility] [address] [address] [address] Rayna Mathew HDL NORMAL > or = 60 mg/dl - LO W CARDIOVASCULAR RISK <40 mg/dl - HIGH CARDIOVASCULAR RISK Normal [facility] Comment on above: Performed By: #### F T3, TSH, CMP, LIPID #### [facility] [address] [address] [address] Rayna Mathew LDL CALC NORMAL SEE BELOW Normal [facility] Comment on above: Result Comment: <100 mg/dl OPTIMAL 100 - 129 mg/dl NEAR OR ABOVE OPTIMAL 130 - 159 mg/dl BORDERLINE HIGH 160 - 189 mg/dl HIGH >190 mg/dl VERY HIGH Performed By: #### F T3, TSH, CMP, LIPID #### [facility] [address] [address] [address] Rayna Mathew Triglyceride [Mass/Vol] 65 mg/dL Normal <=150 [facility] Comment on above: Performed By: #### F T3, TSH, CMP, LIPID #### [facility] [address] [address] [address] Rayna Mathew VLDL CALC 13.0 mg/dL Normal [facility] Comment on above: Performed By: #### F T3, TSH, CMP, LIPID #### [facility] [address] [address] [address] Rayna Mathew PROF 14(COMP METB)on 022 Albumin [Mass/Vol] 3.8 g/dL Normal 3.4-5.0 [facility] Comment on above: Performed By: #### F T3, TSH, CMP, LIPID #### [facility] [address] [address] [address] Rayna Mathew Albumin/Globulin [Mass ratio] 0.9 {ratio} Normal [facility] Comment on above: Performed By: #### F T3, TSH, CMP, LIPID #### [facility] [address] [address] [address] Rayna Mathew ALP [Catalytic activity/Vol] 76 U/L Normal 46-116 [facility] Comment on above: Performed By: #### F T3, TSH, CMP, LIPID #### [facility] [address] [address] [address] Rayna Mathew ALT [Catalytic activity/Vol] 109 U/L Critically high 16-63 [facility] Comment on above: Performed By: #### F T3, TSH, CMP, LIPID #### [facility] [address] [address] [address] Rayna Mathew Anion gap [Moles/Vol] 11.1 mmol/L Normal [facility] Comment on above: Performed By: #### F T3, TSH, CMP, LIPID #### [facility] [address] [place] [address] Dr. Rayna Mathew AST [Catalytic activity/Vol] 79 U/L Critically high 15-37 [facility] Comment on above: Performed By: #### F T3, TSH, CMP, LIPID #### [facility] [address] [place] [address] Dr. Rayna Mathew Bilirubin [Mass/Vol] 0.4 mg/dL Normal 0.2-1.0 [facility] Comment on above: Performed By: #### F T3, TSH, CMP, LIPID #### [facility] [address] [place] [address] Dr. Rayna Mathew Calcium [Mass/Vol] 9.0 mg/dL Normal 8.5-10.1 [facility] Comment on above: Performed By: #### F T3, TSH, CMP, LIPID #### [facility] [address] [place] [address] Dr. Rayna Mathew Chloride [Moles/Vol] 102 mmol/L Normal 98-107 [facility] Comment on above: Performed By: #### F T3, TSH, CMP, LIPID #### [facility] [address] [address] [address] Rayna Mathew CO2 [Moles/Vol] 29.5 mmol/L Normal 21.0-32.0 [facility] Comment on above: Performed By: #### F T3, TSH, CMP, LIPID #### [facility] [address] [address] [address] Rayna Mathew Creatinine [Mass/Vol] 0.96 mg/dL Normal 0.70-1.30 [facility] Comment on above: Performed By: #### F T3, TSH, CMP, LIPID #### [facility] [address] [address] [address] Rayna Mathew EGFR-AF FAROESE >60 Normal >=60 [facility] Comment on above: Performed By: #### F T3, TSH, CMP, LIPID #### [facility] [address] [address] [address] Rayna Mathew EGFR-NON AF FAROESE >60 Normal >=60 [facility] Comment on above: Performed By: #### F T3, TSH, CMP, LIPID #### [facility] [address] [address] [address] Rayna Mathew Globulin (S) [Mass/Vol] 4.0 g/dL Normal [facility] Comment on above: Performed By: #### F T3, TSH, CMP, LIPID #### [facility] [address] [address] [address] Rayna Mathew Glucose [Mass/Vol] 121 mg/dL Critically high 74-106 [facility] Comment on above: Performed By: #### F T3, TSH, CMP, LIPID #### [facility] [address] [address] [address] Rayna Mathew Potassium [Moles/Vol] 4.6 mmol/L Normal 3.5-5.1 [facility] Comment on above: Performed By: #### F T3, TSH, CMP, LIPID #### [facility] [address] [address] [address] Rayna Mathew Protein [Mass/Vol] 7.8 g/dL Normal 6.4-8.2 [facility] Comment on above: Performed By: #### F T3, TSH, CMP, LIPID #### [facility] [address] [address] [address] Rayna Mathew Sodium [Moles/Vol] 138 mmol/L Normal 136-145 [facility] Comment on above: Performed By: #### F T3, TSH, CMP, LIPID #### [facility] [address] [address] [address] Rayna Mathew Urea nitrogen [Mass/Vol] 11.0 mg/dL Normal 7.0-18.0 [facility] Comment on above: Performed By: #### F T3, TSH, CMP, LIPID #### [facility] [address] [address] [address] Rayna Mathew Urea nitrogen/Creatinine [Mass ratio] 11.5 mg/mg Normal [facility] Comment on above: Performed By: #### F T3, TSH, CMP, LIPID #### [facility] [address] [address] [address] Rayna Mathew TSHon 02-04-2022 TSH 1.905 uIU/mL Normal 0.358-3.740 [facility] Comment on above: Performed By: #### F T3, TSH, CMP, LIPID #### [facility] [address] [address] [address] Rayna Mathew Encounters Encounter Date Encounter Type Care Provider Facility Start: 08-03-2023 ambulatory Facility:[facility] Start: 08-02-2023 End: 08-02-2023 ambulatory Gen Peña Facility:[facility] Start: 07-30-2023 ambulatory Facility:[facility] Start: 07-14-2022 End: 07-15-[address] GEN PEÑA . Facility:[facility] Start: 02-10-[address] GEN PEÑA . Facili ty:[facility] Start: 02-08-2022 Encounter for genera l adult medical examination without abnormal findings DR GEN PEÑA . [facility] Start: 02-04-2022 End: 02-05-[address] GEN PEÑA . Facility:[facility] Start: 02-04-2022 End: 02-05-2022 Encounter for general adult medical examination without abnormal findings DR GEN PEÑA . Facility:[facility] Start: 08-01-[address] GEN PEÑA . Facili ty:[facility] Procedures Date Procedure Procedure Detail Performing Clinician Start: 02-04-[address] BERE PEÑA . Comment on above: Performed By: #### P [facility] #### [facility] [address] [address] [address] Rayna Mathew Payers Date Payer Category Payer Self-pay 2018 Private Health Insurance 1971 Unknown [id number] 2.16.84 [id number] 1971 Unknown [id number] 2.16.84 [id number] 1971 Unknown [id number] 2.16.84 [id number] 1971 Unknown [id number] 2.16.84 [id number] 1971 Unknown [id number] 2.16.8 [id number] 1959 Self-pay [id number] 1959 Unknown [id number] Unknown [id number] 2.16.8 [id number] Summary Purpose Family History No Family History Records FoundNo Family History Records FoundNo Family History Records Found Advance Directives No Advanced Directives Records FoundNo Advanced Directives Records FoundNo Advanced Directives Records Found Additional Source Comments (unrecognized sect ion and content) No Status Records FoundNo Status Records FoundNo Status Records Found INFORMATION SOURCE (unrecogn ized section and content) DATE CREATED AUTHOR 07/18/2022 [facility] DATE CREATED AUTHOR AUTHOR'S ORGANIZ ATION 08/06/2023 [facility] DATE CREATED AUTHOR AUTHOR'S ORGANIZ ATION 08/10/2023 [facility] FOR RECORDS PERTAINING TO PATIENTS WHO [...] BE BASED ON THE PRIMARY CLINICAL RECORDS. [facility] [employer] [facility]. provides no warranty or guarantee of the accuracy or completeness of information in this document.
[2023-09-13 11:41] LABS: Basophils Percent Auto 0.6 % (0.2-2.0); Eosinophils Percent Auto 0.6 % (0.9-7.0); Hemoglobin 8.8 g/dL (14.0-18.0); Immature Granulocytes Abs Auto 0.01 10^3/uL (0.00-0.03); Immature Granulocytes Pct Auto 0.2 % (0.0-0.5); Mean Corpuscular HGB Conc 28.4 g/dL (29.9-35.2); Mean Corpuscular Hemoglobin 21.6 pg (25.9-34.0); Mean Corpuscular Volume 76.2 fL (80.0-94.0); Mean Platelet Volume 9.3 fL (9.5-13.5); Monocytes Absolute Auto 0.5 10^3/uL (0.3-0.8); Neutrophils Absolute Auto 3.7 10^3/uL (1.4-6.5); Neutrophils Percent Auto 70.6 % (43.0-75.0); Platelet Count 231 10^3/uL (150-450); Red Cell Distribution Width 21.5 % (11.0-15.0); White Blood Count 5.3 10^3/uL (4.0-11.0)
[2023-09-13 11:48] LABS: Erythrocyte Sedimentation Rate 36 mm/hr (<=20)
[2023-09-13 12:26] LABS: C Reactive Protein <0.50 mg/dL (<=0.50)
[2023-09-13 12:54] LABS: Red Blood Count 4.07 10^6/uL (4.70-6.10)
[2023-09-14 13:07] LABS: Hgb A 97.9 % (96.4-98.8); Hgb A2 2.1 % (1.8-3.2)
== END 2023-09-13 11:17 | disposition home or self-care (01) ==
LOC: LAB 11:17
PROVIDERS: PCP Family Medicine; Visit Provider Internal Medicine Hematology & Oncology
DX: D64.9 Anemia, unspecified (principal); D61.818 Other pancytopenia
CPT/HCPCS: 36415; 81257; 85025; 85652; 86140

== ENCOUNTER 2023-09-14 07:31 | Outpatient (RCR) | payer OTHER, SELFPAY | END 2023-09-21 23:59 | disposition home or self-care (01) | LOC: INF 07:31 | PROVIDERS: PCP Family Medicine; Visit Provider Internal Medicine Hematology & Oncology | DX: D61.818 Other pancytopenia (principal); D64.9 Anemia, unspecified | CPT/HCPCS: G0463 ==

== ENCOUNTER 2023-10-14 08:33 | Outpatient (OUT) | payer OTHER, SELFPAY ==
--- OUTSIDE RECORDS SUMMARY | 2023-10-14 08:42 | XMS_ITS | CCD ---
Author Organization [facility] Care Team Providers Care Early Learning Teacher Name Role Phone ANDERSONY ., DR BLEVINS [...] Care Unavailable HOY ., DR BLEVINS Consulting MD Gen Ugarte Attending Provider [phone] MD Kisha Esteves Attending Provider Gen Peña Admitting Unavailable Gen Peña Attending Unavailable Kisha Esteves Attending Unavailable Kisha Esteves Admitting Unavailable Allergies Allergy Classification Reported Allergen(s) Allergy Type Date of Onset Reaction(s) Facility (1 source) No Known Medication Allergies; Translations: [No Known Medication Allergies] Propensity to adverse reactions (disorder) 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; Translations: [OTH CARE HOME CURRENT DRUG THERAPY] Onset: 02-08-2022 Episodic Other screening for suspected conditions (not mental disorders or infectious disease) (1 source) Encounter for screening for malignant neoplasm of prostate; Translations: [ENC SCREEN MALIG NEOPLASM PROSTATE] Onset: 02-08-2022 Episodic Results Test Name Value Interpretation Reference Range Facility [facility] 09-13-2023 L Specimen: BP- Received: 09/14/23 Status: DEION Cullen Num: [id number] Spec Type: Impression Subm Dr: Kisha Esteves MD Tissues: PATHPER Procedures: PATHREVIEW Age/ Patient Sex Location Account Attending Physician Eddie Martinez O 53/M [place] [id number] Kisha Esteves MD SPEC NUM: [id number] RECD: 09/14/23 STATUS: LORNEDago CULLEN NUM: [id number] ANDREA: 09/13/[address]: Kisha Esteves MD ENTERED: 09/14/[address]: Renaldo Fung SPEC TYPE: Impression DEPT: [facility] ENTERED BY: [id number] RECV BY: [id number] ORDERED: PATHREVIEW ORDERED: PATHREVIEW Pathologist Review Normocytic Anemia is noted. Bone Marrow Pathology Vs. Peripheral Etiology. 52200 ---- ---- Specimen: BP24 Received: 09/14/23 Status: DEION Garciarashmi Num: [id number] Spec Type: Impression Subm Dr: Kisha Esteves MD Tissues: PATHPER Procedures: PATHREVIEW ---- Patient: Eddie Martinez [id number] (Continued) ---- Signed (signature on file) Ethan Solano MD 09/15/23 1516 Normal [facility] ED Note-Physicianon 08-05-19 ED Note-Physician [id number] 30 [id number] [facility] RAD - CT Reporton 08-05-2023 RAD - CT Report [id number] [facility] Dragan 08-02-2023 L Specimen: [id number] Received: 08/03/23-1350 Status: DEION Deana Num: [id number] Spec Type: Impression Subm Dr: Gen Peña MD Tissues: PATHPER Procedures: PATHREVIEW Age/ Patient Sex Location Account Attending Physician Eddie Martinez 53/M [place] [id number] Gen Peña MD SPEC NUM: [id number] RECD: 08/03/23 STATUS: DEION CULLEN NUM: [id number] ANDREA: 08/02/[address] [facility] [address]: Gen Peña MD ENTERED: 08/03/[address] [facility] DR: SPEC TYPE: Impression DEPT: [facility] ENTERED BY: [id number] RECV BY: [id number] ORDERED: PATHREVIEW ORDERED: PATHREVIEW Pathologist Review Abnormal [...] ---- Specimen: [id number] Received: 08/03/23 Status: DEION Cullen Num: [id number] Spec Type: Impression Subm Dr: Gen Peña MD Tissues: PATHPER Procedures: PATHREVIEW ---- Patient: Eddie Martinez Marychuy [id number] (Continued) ---- Specimen: [id number] Received: 08/03/23 (Continued) Pathologist Review (Continued) Signed (signature on file) Tammy Mathew MD 08/05/23 1828 ---- Specimen: [id number] Received: 08/03/23 Status: DEION Cullen Num: [id number] Spec Type: Impression Subm Dr: Gen Peña MD Tissues: PATHPER Procedures: PATHREVIEW ---- Patient: DiortiffanieEddie [id number] (Continued) ---- Specimen: BP24 Received: 08/03/23 (Continued) Pathologist Review (Continued) CPT: 32677 CBC No results available. ---- ---- Specimen: BP24 Received: 08/03/23 Status: DEION Cullen Num: [id number] Spec Type: Impression Subm Dr: Gen Peña MD Tissues: PATHPER Procedures: PATHREVIEW ---- Patient: Eddie Martinez [id number] (Continued) ---- Signed (signature on file) Chin-Fredo Mathew MD 08/05/23 1828 Normal [facility] Physician Referralon 024 Physician Referral [id number] 30 [id number] [facility] T4 [facility]on 02-05-2022 T4 [Mass/Vol] 9.2 ug/dL Normal 4.5-12.0 [facility] Comment on above: Performed By: #### T 4LC #### [facility] [address] [place] [address] Dr. Rayna Mathew CBC AUTO DIFFon 02-04-2022 BASO # 0.0 103/ul Normal 0.0-0.1 [facility] Comment on above: Performed By: #### C BC #### [facility] [address] [place] [address] Dr. Rayna Mathew Basophils/100 WBC (Bld) 0.7 % Normal 0.2-2.0 [facility] Comment on above: Performed By: #### C BC #### [facility] [address] [place] [address] Dr. Rayna Mathew EO # 0.4 103/ul Normal 0.0-0.7 [facility] Comment on above: Performed By: #### C BC #### [facility] [address] [place] [address] Dr. Rayna Mathew Eosinophils/100 WBC (Bld) 6.7 % Normal 0.9-7.0 [facility] Comment on above: Performed By: #### C BC #### [facility] [address] [place] [address] Dr. Rayna Mathew Erythrocyte distribution width (RBC) [Ratio] 13.5 % Normal 11.0-15.0 [facility] Comment on above: Performed By: #### C BC #### [facility] [address] [place] [address] Dr. Rayna Mathew Hematocrit (Bld) [Volume fraction] 37.2 % Critically low 42.0-54.0 [facility] Comment on above: Performed By: #### C BC #### [facility] [address] [place] [address] Dr. Rayna Mathew Hemoglobin (Bld) [Mass/Vol] 11.5 g/dL Critically low 14.0-18.0 [facility] Comment on above: Performed By: #### C BC #### [facility] [address] [place] [address] Dr. Rayna Mathew IG # 0.02 10e3/ul Normal 0.00-0.03 [facility] Comment on above: Performed By: #### C BC #### [facility] [address] [place] [address] Dr. Rayna Mathew IG % 0.3 % Normal 0.0-0.5 [facility] Comment on above: Performed By: #### C BC #### [facility] [address] [place] [address] Dr. Rayna Mathew LYMPH # 1.4 103/ul Normal 1.2-3.8 [facility] Comment on above: Performed By: #### C BC #### [facility] [address] [place] [address] Dr. Rayna Mathew Lymphocytes/100 WBC (Bld) 23.8 % Normal 20.5-60.0 [facility] Comment on above: Performed By: #### C BC #### [facility] [address] [place] [address] Dr. Rayna Mathew MANUAL DIFF REQ NO Normal [facility] Comment on above: Performed By: #### C BC #### [facility] [address] [place] [address] Dr. Rayna Mathew MCH (RBC) [Entitic mass] 27.4 pg Normal 25.9-34.0 [facility] Comment on above: Performed By: #### C BC #### [facility] [address] [place] [address] Dr. Rayna Mathew MCHC (RBC) [Mass/Vol] 30.9 g/dL Normal 29.9-35.2 [facility] Comment on above: Performed By: #### C BC #### [facility] [address] [place] [address] Dr. Rayna Mathew MCV (RBC) [Entitic vol] 88.6 fL Normal 80.0-94.0 [facility] Comment on above: Performed By: #### C BC #### [facility] [address] [place] [address] Dr. Rayna Mathew MONO # 0.6 103/ul Normal 0.3-0.8 [facility] Comment on above: Performed By: #### C BC #### [facility] [address] [place] [address] Dr. Rayna Mathew Monocytes/100 WBC (Bld) 9.2 % Normal 1.7-12.0 [facility] Comment on above: Performed By: #### C BC #### [facility] [address] [place] [address] Dr. Rayna Mathew NEUT # 3.5 103/ul Normal 1.4-6.5 [facility] Comment on above: Performed By: #### C BC #### [facility] [address] [place] [address] Dr. Rayna Mathew Neutrophils/100 WBC (Bld) 59.3 % Normal 43.0-75.0 [facility] Comment on above: Performed By: #### C BC #### [facility] [address] [place] [address] Dr. Rayna Mathew Platelet mean volume (Bld) [Entitic vol] 10.4 fL Normal 9.5-13.5 [facility] Comment on above: Performed By: #### C BC #### [facility] [address] [address] [address] Rayna Mathew PLT 182 103/ul Normal 150-450 [facility] Comment on above: Performed By: #### C BC #### [facility] [address] [address] [address] Rayna Mathew RBC 4.20 106/ul Critically low 4.70-6.10 [facility] Comment on above: Performed By: #### C BC #### [facility] [address] [address] [address] Rayna Mathew WBC 6.0 103/ul Normal 4.0-11.0 [facility] Comment on above: Performed By: #### C BC #### [facility] [address] [address] [address] Rayna Mathew FREE T3on 02-04-2022 FREE T3 3.28 pg/mlL Normal 2.18-3.98 [facility] Comment on above: Performed By: #### F T3, TSH, CMP, LIPID #### [facility] [address] [place] [address] Dr. Rayna Mathew GLYCOHEMOGLOBIN A1Con 2021 ADA RECOMMENDATION SEE BELOW Normal [facility] Comment on above: Result Comment: ADA RECOMMENDED LIMIT 4.0 - 6.0 ADA THERAPEUTIC TARGET < 7.0 ACTION SUGGESTED > 7.0 Performed By: #### A 1C #### [facility] [address] [place] [address] Dr. Rayna Mathew Glucose [Mass/Vol] 123 mg/dL Normal [facility] Comment on above: Performed By: #### A 1C #### [facility] [address] [place] [address] Dr. Rayna Mathew HbA1c (Bld) [Mass fraction] 5.9 % Normal 4.5-6.2 [facility] Comment on above: Performed By: #### A 1C #### [facility] [address] [place] [address] Dr. Rayna Mathew LIPID PROFILEon 02-04-2022 CHOL-HDL RATIO NORM SEE BELOW Normal [facility] Comment on above: Result Comment: 3.3 - 4.4 LOW RISK 4.4 - 7.1 AVERAGE RISK 7.1 - 11.0 MODERATE RISK >11.0 HIGH RISK Performed By: #### F T3, TSH, CMP, LIPID #### [facility] [address] [address] [address] Rayna Mathew Cholesterol [Mass/Vol] 158 mg/dL Normal <=200 [facility] Comment on above: Performed By: #### F T3, TSH, CMP, LIPID #### [facility] [address] [address] [address] Rayna Mathew Cholesterol in HDL [Mass/Vol] 47 mg/dL Normal 40-60 [facility] Comment on above: Performed By: #### F T3, TSH, CMP, LIPID #### [facility] [address] [place] [address] Dr. Rayna Mathew Cholesterol in LDL [Mass/Vol] 98.0 mg/dL Normal [facility] Comment on above: Performed By: #### F T3, TSH, CMP, LIPID #### [facility] [address] [place] [address] Dr. Rayna Mathew Cholesterol.total/Ch olesterol in HDL [Mass ratio] 3.4 {ratio} Normal [facility] Comment on above: Performed By: #### F T3, TSH, CMP, LIPID #### [facility] [address] [place] [address] Dr. Rayna Mathew HDL NORMAL > or = 60 mg/dl - LO W CARDIOVASCULAR RISK <40 mg/dl - HIGH CARDIOVASCULAR RISK Normal [facility] Comment on above: Performed By: #### F T3, TSH, CMP, LIPID #### [facility] [address] [place] [address] Dr. Rayna Mathew LDL CALC NORMAL SEE BELOW Normal [facility] Comment on above: Result Comment: <100 mg/dl OPTIMAL 100 - 129 mg/dl NEAR OR ABOVE OPTIMAL 130 - 159 mg/dl BORDERLINE HIGH 160 - 189 mg/dl HIGH >190 mg/dl VERY HIGH Performed By: #### F T3, TSH, CMP, LIPID #### [facility] [address] [place] [address] Dr. Rayna Mathew Triglyceride [Mass/Vol] 65 mg/dL Normal <=150 [facility] Comment on above: Performed By: #### F T3, TSH, CMP, LIPID #### [facility] [address] [address] [address] Rayna Mathew VLDL CALC 13.0 mg/dL Normal [facility] Comment on above: Performed By: #### F T3, TSH, CMP, LIPID #### [facility] [address] [address] [address] Rayna Mathew PROF 14(COMP METB)on 022 Albumin [Mass/Vol] 3.8 g/dL Normal 3.4-5.0 [facility] Comment on above: Performed By: #### F T3, TSH, CMP, LIPID #### [facility] [address] [address] [address] Rayna Mathew Albumin/Globulin [Mass ratio] 0.9 {ratio} Normal [facility] Comment on above: Performed By: #### F T3, TSH, CMP, LIPID #### [facility] [address] [address] [address] Rayna Mathew ALP [Catalytic activity/Vol] 76 U/L Normal 46-116 [facility] Comment on above: Performed By: #### F T3, TSH, CMP, LIPID #### [facility] [address] [address] [address] Rayna Mathew ALT [Catalytic activity/Vol] 109 U/L Critically high 16-63 [facility] Comment on above: Performed By: #### F T3, TSH, CMP, LIPID #### [facility] [address] [address] [address] Rayna Mathew Anion gap [Moles/Vol] 11.1 mmol/L Normal [facility] Comment on above: Performed By: #### F T3, TSH, CMP, LIPID #### [facility] [address] [address] [address] Rayna Mathew AST [Catalytic activity/Vol] 79 U/L Critically high 15-37 [facility] Comment on above: Performed By: #### F T3, TSH, CMP, LIPID #### [facility] [address] [address] [address] Rayna Mathew Bilirubin [Mass/Vol] 0.4 mg/dL Normal 0.2-1.0 [facility] Comment on above: Performed By: #### F T3, TSH, CMP, LIPID #### [facility] [address] [place] [address] Dr. Rayna Mathew Calcium [Mass/Vol] 9.0 mg/dL Normal 8.5-10.1 [facility] Comment on above: Performed By: #### F T3, TSH, CMP, LIPID #### [facility] [address] [address] [address] Rayna Mathew Chloride [Moles/Vol] 102 mmol/L Normal 98-107 [facility] Comment on above: Performed By: #### F T3, TSH, CMP, LIPID #### [facility] [address] [place] [address] Dr. Rayna Mathew CO2 [Moles/Vol] 29.5 mmol/L Normal 21.0-32.0 [facility] Comment on above: Performed By: #### F T3, TSH, CMP, LIPID #### [facility] [address] [place] [address] Dr. Rayna Mathew Creatinine [Mass/Vol] 0.96 mg/dL Normal 0.70-1.30 [facility] Comment on above: Performed By: #### F T3, TSH, CMP, LIPID #### [facility] [address] [place] [address] Dr. Rayna Mathew EGFR-AF [place]I >60 Normal >=60 [facility] Comment on above: Performed By: #### F T3, TSH, CMP, LIPID #### [facility] [address] [place] [address] Dr. Rayna Mathew EGFR-NON AF [place]I >60 Normal >=60 [facility] Comment on above: Performed By: #### F T3, TSH, CMP, LIPID #### [facility] [address] [place] [address] Dr. Rayna Mathew Globulin (S) [Mass/Vol] 4.0 g/dL Normal [facility] Comment on above: Performed By: #### F T3, TSH, CMP, LIPID #### [facility] [address] [address] [address] Rayna Mathew Glucose [Mass/Vol] 121 mg/dL Critically high 74-106 [facility] Comment on above: Performed By: #### F T3, TSH, CMP, LIPID #### [facility] [address] [address] [address] Rayna Mathew Potassium [Moles/Vol] 4.6 mmol/L Normal 3.5-5.1 [facility] Comment on above: Performed By: #### F T3, TSH, CMP, LIPID #### [facility] [address] [address] [address] Rayna Mathew Protein [Mass/Vol] 7.8 g/dL Normal 6.4-8.2 [facility] Comment on above: Performed By: #### F T3, TSH, CMP, LIPID #### [facility] [address] [address] [address] Rayna Mathew Sodium [Moles/Vol] 138 mmol/L Normal 136-145 [facility] Comment on above: Performed By: #### F T3, TSH, CMP, LIPID #### [facility] [address] [place] [address] Dr. Rayna Mathew Urea nitrogen [Mass/Vol] 11.0 mg/dL Normal 7.0-18.0 [facility] Comment on above: Performed By: #### F T3, TSH, CMP, LIPID #### [facility] [address] [place] [address] Dr. Rayna Mathew Urea nitrogen/Creatinine [Mass ratio] 11.5 mg/mg Normal [facility] Comment on above: Performed By: #### F T3, TSH, CMP, LIPID #### [facility] [address] [place] [address] Dr. Rayna Mathew TSHon 02-04-2022 TSH 1.905 uIU/mL Normal 0.358-3.740 [facility] Comment on above: Performed By: #### F T3, TSH, CMP, LIPID #### [facility] [address] [address] [address] Rayna Mathew Encounters Encounter Date Encounter Type Care Provider Facility Start: 09-13-2023 End: 09-13-2023 ambulatory Kisha Esteves Facility:[facility] Start: 09-13-2023 End: 09-13-2023 ambulatory MD Gen Peña Work Phone: [facility] Work Phone: Start: 09-13-2023 End: 09-13-2023 Departed Referred MD Gen Peña Work Phone: [facility] Start: 08-03-2023 [facility] Start: 08-02-2023 End: 08-02-2023 ambulatory Gen Peña Facility:[facility] Start: 08-02-2023 End: 08-02-2023 Departed Referred MD Gen Peña Work Phone: [facility] Start: 07-30-2023 ambulatory Facility:[facility] Start: 07-14-2022 End: 07-15-[address] GEN PEÑA . Facility:[facility] Start: 02-10-[address] GEN PEÑA . Facili ty:[facility] Start: 02-08-2022 Encounter for genera l adult medical examination without abnormal findings DR GEN PEÑA . [facility] Start: 02-04-2022 End: 02-05-[address] GEN PEÑA . Facility:[facility] Start: 02-04-2022 End: 02-05-2022 Encounter for general adult medical examination without abnormal findings DR GEN PEÑA . Facility:[facility] Start: 08-01-[address] GEN PEÑA . Facili ty:[facility] Procedures Date Procedure Procedure Detail Performing Clinician Start: 02-04-[address] BERE PEÑA . Comment on above: Performed By: #### P SASC #### [facility] [address] [address] [address] Rayna Mathew Payers Date Payer Category Payer Self-pay 2018 Private Health Insurance 1970 Unknown [id number] 1970 Unknown [id number] 1971 Unknown [id number] 1971 Unknown [id number] 1971 Unknown [id number] 1959 Self-pay [id number] 1958 Unknown [id number] Unknown Johanna BC/BS [id number] Unknown [id number] Unknown [id number] Social History Date Type Detail Facility Tobacco smoking stat [facility] Unknown if ever smoked [facility] Work Phone: Start: 1970 Sex Assigned At Male [facility] Evaluation note Note Date & Type Note Facility Evaluation note No assessment information availa ble [facility] Work Phone: Summary Purpose Family History No Family History Records FoundNo Family History Records FoundNo Family History Records Found Advance Directives No Advanced Directives Records Found Advance Directive Response Recorded Date/ Time Advance Directives No September 13, 024 12:27pm Additional Source Comments (unrecognized sect ion and content) No Status Records FoundNo Status Records FoundNo Status Records Found INFORMATION SOURCE (unrecogn ized section and content) DATE CREATED AUTHOR 07/18/2022 [facility] DATE CREATED AUTHOR AUTHOR'S ORGANIZ ATION 08/06/2023 [facility] DATE CREATED AUTHOR AUTHOR'S ORGANIZ ATION 09/15/2023 [facility] Care Teams (unrecognized sec tion and content) Team Status: Inactive Member Role Status Dates Gen Peña MD Attending Provider Active Sta rt: August 02, 2023 End: August 02, 2023 Team Status: Inactive Member Role Status Dates Kisha Esteves MD Attending Provider Active St art: September 13, 2023 End: September 13, 2023 Goals (unrecognized section and content) Goals may be documented in a n alternate section FOR RECORDS PERTAINING TO PATIENTS WHO ARE [...] BE BASED ON THE PRIMARY CLINICAL RECORDS. [employer] provides no warranty or guarantee of the accuracy or completeness of information in this document.
[2023-10-14 09:20] LABS: Basophils Percent Auto 0.7 % (0.2-2.0); Eosinophils Absolute Auto 0.1 10^3/uL (0.0-0.7); Eosinophils Percent Auto 3.2 % (0.9-7.0); Hematocrit 31.5 % (42.0-54.0); Immature Granulocytes Abs Auto 0.01 10^3/uL (0.00-0.03); Immature Granulocytes Pct Auto 0.2 % (0.0-0.5); Lymphocytes Absolute Auto 1.1 10^3/uL (1.2-3.8); Mean Corpuscular HGB Conc 28.6 g/dL (29.9-35.2); Mean Corpuscular Hemoglobin 21.2 pg (25.9-34.0); Mean Corpuscular Volume 74.3 fL (80.0-94.0); Mean Platelet Volume 9.8 fL (9.5-13.5); Monocytes Absolute Auto 0.5 10^3/uL (0.3-0.8); Monocytes Percent Auto 12.3 % (1.7-12.0); Neutrophils Absolute Auto 2.6 10^3/uL (1.4-6.5); Neutrophils Percent Auto 59.6 % (43.0-75.0); Platelet Count 207 10^3/uL (150-450); Red Blood Count 4.24 10^6/uL (4.70-6.10); Red Cell Distribution Width 18.7 % (11.0-15.0); Reticulocyte Pct Auto 1.66 % (0.60-3.10); White Blood Count 4.4 10^3/uL (4.0-11.0)
[2023-10-14 09:58] LABS: Percent Iron Saturation 2.8 %
[2023-10-14 10:09] LABS: Alanine Aminotransferase 51 U/L (16-63); Albumin Globulin Ratio 0.9; Albumin Level 3.6 g/dL (3.4-5.0); Alkaline Phosphatase 73 U/L (46-116); Anion Gap 12.6; Aspartate Amino Transferase 46 U/L (15-37); BUN Creatinine Ratio 8.8; Bilirubin Total 0.7 mg/dL (0.2-1.0); Calcium 9.2 mg/dL (8.5-10.1); Carbon Dioxide 28.7 mmol/L (21.0-32.0); Chloride 101 mmol/L (98-107); Estimated GFR (African America >60 (>=60); Estimated GFR (Non-African Ame >60 (>=60); Globulin 4.2 g/dL; Glucose 115 mg/dL (74-106); Lactate Dehydrogenase 162 U/L (85-227); Potassium 4.3 mmol/L (3.5-5.1); Sodium 138 mmol/L (136-145); Total Protein 7.8 g/dL (6.4-8.2)
[2023-10-15 05:08] LABS: Haptoglobin 194 mg/dL (29-370)
== END 2023-10-14 08:34 | disposition home or self-care (01) ==
LOC: LAB 08:35
PROVIDERS: PCP Family Medicine; Visit Provider Internal Medicine Hematology & Oncology
DX: D64.9 Anemia, unspecified (principal); D61.818 Other pancytopenia
CPT/HCPCS: 36415; 80053; 82728; 83010; 83540; 83550; 83615; 85025; 85045

== ENCOUNTER 2023-10-22 07:27 | Outpatient (RCR) | payer OTHER, SELFPAY ==
[2023-10-22 08:05] VITALS: BP 156/82; PULSE 95; TEMP 37.2; O2SAT 94
[2023-10-22] MEDS: FERRIC CARBOXYMALTOSE 750 MG in 0.9 % SODIUM CHLORIDE 250 ML 795 MG IV (08:08)
== END 2023-10-22 23:59 | disposition home or self-care (01) ==
LOC: INF 07:27
PROVIDERS: PCP Family Medicine; Visit Provider Internal Medicine Hematology & Oncology
DX: D61.818 Other pancytopenia (principal); D64.9 Anemia, unspecified; D50.9 Iron deficiency anemia, unspecified; K90.9 Intestinal malabsorption, unspecified
CPT/HCPCS: 96365; G0463; J1439

== ENCOUNTER 2023-10-29 07:37 | Outpatient (RCR) | payer OTHER, SELFPAY ==
[2023-10-29 07:55] VITALS: BP 144/84; PULSE 89; O2SAT 96
[2023-10-29] MEDS: FERRIC CARBOXYMALTOSE 750 MG in 0.9 % SODIUM CHLORIDE 250 ML 795 MG IV (08:10)
--- NOTE | 2023-10-29 08:32 | PC.NURSE ---
Pt is here for his second dose of injectafer. Vitals obtained and stable. A 22g IV started in his left AC with good blood return and denies any pain. He tolerated infusion well and denies any complaints. IV discontinued and pt was discharged home ambulatory.
== END 2023-10-29 09:00 | disposition home or self-care (01) ==
LOC: INF 07:37
PROVIDERS: PCP Family Medicine; Visit Provider Internal Medicine Hematology & Oncology
DX: D50.9 Iron deficiency anemia, unspecified (principal); D61.818 Other pancytopenia; D64.9 Anemia, unspecified; K90.9 Intestinal malabsorption, unspecified
CPT/HCPCS: 96365; J1439

== ENCOUNTER 2023-11-29 06:54 | Outpatient (OUT) | payer OTHER, SELFPAY ==
--- OUTSIDE RECORDS SUMMARY | 2023-11-29 06:58 | XMS_ITS | CCD ---
Author Organization [facility] Care Team Providers Care Nuclear Supervising Operator Name Role Phone ANDERSONY ., DR BLEVINS [...] BLEVINS Consulting MD Gen Ugarte Attending Provider [phone] MD Kisha Esteves Attending Provider Gen Peña Admitting Unavailable Gen Peña Attending Unavailable Kisha Esteves Attending Unavailable Kisha Esteves Admitting Unavailable Allergies Allergy Classification Reported Allergen(s) Allergy Type Date of Onset Reaction(s) Facility (1 source) No Known Medication Allergies; Translations: [No Known Medication Allergies] Propensity to adverse reactions (disorder) [facility] Repository Problems Active Problems Problem Classification [...] care facility (current) drug therapy; Translations: [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 CURRENT DRUG THERAPY] Onset: 02-08-2022 Episodic Other screening for suspected conditions (not mental disorders or infectious disease) (1 source) Encounter for screening for malignant neoplasm of prostate; Translations: [ENC SCREEN MALIG NEOPLASM PROSTATE] Onset: 02-08-2022 Episodic Results Test Name Value Interpretation Reference Range Facility [facility] 09-13-2023 L Specimen: BP- Received: 09/14/23 Status: DEION Cullen Num: [id number] Spec Type: Impression Subm Dr: Kisha Esteves MD Tissues: PATHPER Procedures: PATHREVIEW Age/ Patient Sex Location Account Attending Physician Eddie Martinez O 53/M [place] [id number] Kisha Esteves MD SPEC NUM: [id number] RECD: 09/14/23 STATUS: LORNEDago CULLEN NUM: [id number] ANDREA: 09/13/[address]: Kisha Esteves MD ENTERED: 09/14/[address]: Renaldo Fung SPEC TYPE: Impression DEPT: [facility] ENTERED BY: [id number] RECV BY: [id number] ORDERED: PATHREVIEW ORDERED: PATHREVIEW Pathologist Review Normocytic Anemia is noted. Bone Marrow Pathology Vs. Peripheral Etiology. [id number] ---- ---- Specimen: [id number] Received: 09/14/23 Status: DEION Garciarashmi Num: [id number] Spec Type: Impression Subm Dr: Kisha Esteves MD Tissues: PATHPER Procedures: PATHREVIEW ---- Patient: Eddie Martinez [id number] (Continued) ---- Signed (signature on file) Ethan Solano MD 09/15/23 1516 Normal [facility] ED Note-Physicianon 08-05-19 ED Note-Physician [id number] 30 [id number] 0TIFF Normal [facility] RAD - CT Reporton 08-05-2023 RAD - CT Report [id number] 0TIFF Normal [facility] Dragan 08-02-2023 L Specimen: [id number] Received: 08/03/23-1350 Status: DEION Deana Num: [id number] Spec Type: Impression Subm Dr: Gen Peña MD Tissues: PATHPER Procedures: PATHREVIEW Age/ Patient Sex Location Account Attending Physician Eddie Martinez 53/M [place] [id number] Gen Peña MD SPEC NUM: [id number] RECD: 08/03/23 STATUS: DEION CULLEN NUM: [id number] ANDREA: 08/02/23 [facility] DR: Gen Peña MD ENTERED: 08/03/[address] [facility] [address]: SPEC TYPE: Impression DEPT: [facility] ENTERED BY: [id number] RECV BY: [id number] ORDERED: PATHREVIEW ORDERED: PATHREVIEW Pathologist Review Abnormal [...] [id number] Received: 08/03/23 Status: DEION Cullen Num: [id number] Spec Type: Impression Subm Dr: Gen Peña MD Tissues: PATHPER Procedures: PATHREVIEW ---- Patient: Eddie Martinez Marychuy [id number] (Continued) ---- Specimen: [id number] Received: 08/03/23 (Continued) Pathologist Review (Continued) Signed (signature on file) Tammy Mathew MD 08/05/23 1828 ---- Specimen: [id number] Received: 08/03/23 Status: DEION Cullen Num: [id number] Spec Type: Impression Subm Dr: Gen Peña MD Tissues: PATHPER Procedures: PATHREVIEW ---- Patient: DiortiffanieEddie [id number] (Continued) ---- Specimen: BP24 Received: 08/03/23 (Continued) Pathologist Review (Continued) CPT: 66378 CBC No results available. ---- ---- Specimen: [id number] Received: 08/03/23 Status: DEION Cullen Num: [id number] Spec Type: Impression Subm Dr: Gen Peña MD Tissues: PATHPER Procedures: PATHREVIEW ---- Patient: Eddie Martinez [id number] (Continued) ---- Signed (signature on file) Chin-Fredo Mathew MD 08/05/23 1828 Normal [facility] Physician Referralon 024 Physician Referral [id number] 30 [id number] 0TIFF Normal [facility] T4 [facility]ORPon 02-05-2022 T4 [Mass/Vol] 9.2 ug/dL Normal 4.5-12.0 [facility] Comment on above: Performed By: #### T 4LC #### [facility] [address] [place] [address] Dr. Rayna Mathew CBC AUTO DIFFon 02-04-2022 BASO # 0.0 103/ul Normal 0.0-0.1 [facility] Comment on above: Performed By: #### C BC #### [facility] [address] [place] [address] Dr. Rayna Mathew Basophils/100 WBC (Bld) 0.7 % Normal 0.2-2.0 [facility] Comment on above: Performed By: #### C BC #### [facility] [address] [place] [address] Dr. Rayna Mathew EO # 0.4 103/ul Normal 0.0-0.7 [facility] Comment on above: Performed By: #### C BC #### [facility] [address] [place] [address] Dr. Rayna Mathew Eosinophils/100 WBC (Bld) 6.7 % Normal 0.9-7.0 [facility] Comment on above: Performed By: #### C BC #### [facility] [address] [place] [address] Dr. Rayna Mathew Erythrocyte distribution width (RBC) [Ratio] 13.5 % Normal 11.0-15.0 [facility] Comment on above: Performed By: #### C BC #### [facility] [address] [place] [address] Dr. Rayna Mathew Hematocrit (Bld) [Volume fraction] 37.2 % Critically low 42.0-54.0 [facility] Comment on above: Performed By: #### C BC #### [facility] [address] [place] [address] Dr. Rayna Mathew Hemoglobin (Bld) [Mass/Vol] 11.5 g/dL Critically low 14.0-18.0 [facility] Comment on above: Performed By: #### C BC #### [facility] [address] [place] [address] Dr. Rayna Mathew IG # 0.02 10e3/ul Normal 0.00-0.03 [facility] Comment on above: Performed By: #### C BC #### [facility] [address] [place] [address] Dr. Rayna Mathew IG % 0.3 % Normal 0.0-0.5 [facility] Comment on above: Performed By: #### C BC #### [facility] [address] [place] [address] Dr. Rayna Mathew LYMPH # 1.4 103/ul Normal 1.2-3.8 [facility] Comment on above: Performed By: #### C BC #### [facility] [address] [place] [address] Dr. Rayna Mathew Lymphocytes/100 WBC (Bld) 23.8 % Normal 20.5-60.0 [facility] Comment on above: Performed By: #### C BC #### [facility] [address] [place] [address] Dr. Rayna Mathew MANUAL DIFF REQ NO Normal [facility] Comment on above: Performed By: #### C BC #### [facility] [address] [place] [address] Dr. Rayna Mathew MCH (RBC) [Entitic mass] 27.4 pg Normal 25.9-34.0 [facility] Comment on above: Performed By: #### C BC #### [facility] [address] [place] [address] Dr. Rayna Mathew MCHC (RBC) [Mass/Vol] 30.9 g/dL Normal 29.9-35.2 [facility] Comment on above: Performed By: #### C BC #### [facility] [address] [place] [address] Dr. Rayna Mathew MCV (RBC) [Entitic vol] 88.6 fL Normal 80.0-94.0 [facility] Comment on above: Performed By: #### C BC #### [facility] [address] [place] [address] Dr. Rayna Mathew MONO # 0.6 103/ul Normal 0.3-0.8 [facility] Comment on above: Performed By: #### C BC #### [facility] [address] [place] [address] Dr. Rayna Mathew Monocytes/100 WBC (Bld) 9.2 % Normal 1.7-12.0 [facility] Comment on above: Performed By: #### C BC #### [facility] [address] [place] [address] Dr. Rayna Mathew NEUT # 3.5 103/ul Normal 1.4-6.5 [facility] Comment on above: Performed By: #### C BC #### [facility] [address] [place] [address] Dr. Rayna Mathew Neutrophils/100 WBC (Bld) 59.3 % Normal 43.0-75.0 [facility] Comment on above: Performed By: #### C BC #### [facility] [address] [place] [address] Dr. Rayna Mathew Platelet mean volume (Bld) [Entitic vol] 10.4 fL Normal 9.5-13.5 [facility] Comment on above: Performed By: #### C BC #### [facility] [address] [address] [address] Rayna Mathew PLT 182 103/ul Normal 150-450 [facility] Comment on above: Performed By: #### C BC #### [facility] [address] [address] [address] Rayna Mathew RBC 4.20 106/ul Critically low 4.70-6.10 [facility] Comment on above: Performed By: #### C BC #### [facility] [address] [address] [address] Rayna Mathew WBC 6.0 103/ul Normal 4.0-11.0 [facility] Comment on above: Performed By: #### C BC #### [facility] [address] [address] [address] Rayna Mathew FREE T3on 02-04-2022 FREE T3 3.28 pg/mlL Normal 2.18-3.98 [facility] Comment on above: Performed By: #### F T3, TSH, CMP, LIPID #### [facility] [address] [place] [address] Dr. Rayna Mathew GLYCOHEMOGLOBIN A1Con 2021 ADA RECOMMENDATION SEE BELOW Normal [facility] Comment on above: Result Comment: ADA RECOMMENDED LIMIT 4.0 - 6.0 ADA THERAPEUTIC TARGET < 7.0 ACTION SUGGESTED > 7.0 Performed By: #### A 1C #### [facility] [address] [place] [address] Dr. Rayna Mathew Glucose [Mass/Vol] 123 mg/dL Normal [facility] Comment on above: Performed By: #### A 1C #### [facility] [address] [place] [address] Dr. Rayna Mathew HbA1c (Bld) [Mass fraction] 5.9 % Normal 4.5-6.2 [facility] Comment on above: Performed By: #### A 1C #### [facility] [address] [place] [address] Dr. Rayna Mathew LIPID PROFILEon 02-04-2022 CHOL-HDL RATIO NORM SEE BELOW Normal [facility] Comment on above: Result Comment: 3.3 - 4.4 LOW RISK 4.4 - 7.1 AVERAGE RISK 7.1 - 11.0 MODERATE RISK >11.0 HIGH RISK Performed By: #### F T3, TSH, CMP, LIPID #### [facility] [address] [address] [address] Rayna Mathew Cholesterol [Mass/Vol] 158 mg/dL Normal <=200 [facility] Comment on above: Performed By: #### F T3, TSH, CMP, LIPID #### [facility] [address] [address] [address] Rayna Mathew Cholesterol in HDL [Mass/Vol] 47 mg/dL Normal 40-60 [facility] Comment on above: Performed By: #### F T3, TSH, CMP, LIPID #### [facility] [address] [place] [address] Dr. Rayna Mathew Cholesterol in LDL [Mass/Vol] 98.0 mg/dL Normal [facility] Comment on above: Performed By: #### F T3, TSH, CMP, LIPID #### [facility] [address] [place] [address] Dr. Rayna Mathew Cholesterol.total/Ch olesterol in HDL [Mass ratio] 3.4 {ratio} Normal [facility] Comment on above: Performed By: #### F T3, TSH, CMP, LIPID #### [facility] [address] [place] [address] Dr. Rayna Mathew HDL NORMAL > or = 60 mg/dl - LO W CARDIOVASCULAR RISK <40 mg/dl - HIGH CARDIOVASCULAR RISK Normal [facility] Comment on above: Performed By: #### F T3, TSH, CMP, LIPID #### [facility] [address] [place] [address] Dr. Rayna Mathew LDL CALC NORMAL SEE BELOW Normal [facility] Comment on above: Result Comment: <100 mg/dl OPTIMAL 100 - 129 mg/dl NEAR OR ABOVE OPTIMAL 130 - 159 mg/dl BORDERLINE HIGH 160 - 189 mg/dl HIGH >190 mg/dl VERY HIGH Performed By: #### F T3, TSH, CMP, LIPID #### [facility] [address] [place] [address] Dr. Rayna Mathew Triglyceride [Mass/Vol] 65 mg/dL Normal <=150 [facility] Comment on above: Performed By: #### F T3, TSH, CMP, LIPID #### [facility] [address] [address] [address] Rayna Mathew VLDL CALC 13.0 mg/dL Normal [facility] Comment on above: Performed By: #### F T3, TSH, CMP, LIPID #### [facility] [address] [address] [address] Rayna Mathew PROF 14(COMP METB)on 022 Albumin [Mass/Vol] 3.8 g/dL Normal 3.4-5.0 [facility] Comment on above: Performed By: #### F T3, TSH, CMP, LIPID #### [facility] [address] [address] [address] Rayna Mathew Albumin/Globulin [Mass ratio] 0.9 {ratio} Normal [facility] Comment on above: Performed By: #### F T3, TSH, CMP, LIPID #### [facility] [address] [address] [address] Rayna Mathew ALP [Catalytic activity/Vol] 76 U/L Normal 46-116 [facility] Comment on above: Performed By: #### F T3, TSH, CMP, LIPID #### [facility] [address] [address] [address] Rayna Mathew ALT [Catalytic activity/Vol] 109 U/L Critically high 16-63 [facility] Comment on above: Performed By: #### F T3, TSH, CMP, LIPID #### [facility] [address] [address] [address] Rayna Mathew Anion gap [Moles/Vol] 11.1 mmol/L Normal [facility] Comment on above: Performed By: #### F T3, TSH, CMP, LIPID #### [facility] [address] [address] [address] Rayna Mathew AST [Catalytic activity/Vol] 79 U/L Critically high 15-37 [facility] Comment on above: Performed By: #### F T3, TSH, CMP, LIPID #### [facility] [address] [address] [address] Rayna Mathew Bilirubin [Mass/Vol] 0.4 mg/dL Normal 0.2-1.0 [facility] Comment on above: Performed By: #### F T3, TSH, CMP, LIPID #### [facility] [address] [place] [address] Dr. Rayna Mathew Calcium [Mass/Vol] 9.0 mg/dL Normal 8.5-10.1 [facility] Comment on above: Performed By: #### F T3, TSH, CMP, LIPID #### [facility] [address] [address] [address] Rayna Mathew Chloride [Moles/Vol] 102 mmol/L Normal 98-107 [facility] Comment on above: Performed By: #### F T3, TSH, CMP, LIPID #### [facility] [address] [place] [address] Dr. Rayna Mathew CO2 [Moles/Vol] 29.5 mmol/L Normal 21.0-32.0 [facility] Comment on above: Performed By: #### F T3, TSH, CMP, LIPID #### [facility] [address] [place] [address] Dr. Rayna Mathew Creatinine [Mass/Vol] 0.96 mg/dL Normal 0.70-1.30 [facility] Comment on above: Performed By: #### F T3, TSH, CMP, LIPID #### [facility] [address] [place] [address] Dr. Rayna Mathew EGFR-AF CHINESE >60 Normal >=60 [facility] Comment on above: Performed By: #### F T3, TSH, CMP, LIPID #### [facility] [address] [place] [address] Dr. Rayna Mathew EGFR-NON AF CHINESE >60 Normal >=60 [facility] Comment on above: Performed By: #### F T3, TSH, CMP, LIPID #### [facility] [address] [place] [address] Dr. Rayna Mathew Globulin (S) [Mass/Vol] 4.0 g/dL Normal [facility] Comment on above: Performed By: #### F T3, TSH, CMP, LIPID #### [facility] [address] [address] [address] Rayna Mathew Glucose [Mass/Vol] 121 mg/dL Critically high 74-106 T [facility] Comment on above: Performed By: #### F T3, TSH, CMP, LIPID #### [facility] [address] [address] [address] Rayna Mathew Potassium [Moles/Vol] 4.6 mmol/L Normal 3.5-5.1 [facility] Comment on above: Performed By: #### F T3, TSH, CMP, LIPID #### [facility] [address] [address] [address] Rayna Mathew Protein [Mass/Vol] 7.8 g/dL Normal 6.4-8.2 [facility] Comment on above: Performed By: #### F T3, TSH, CMP, LIPID #### [facility] [address] [address] [address] Rayna Mathew Sodium [Moles/Vol] 138 mmol/L Normal 136-145 [facility] Comment on above: Performed By: #### F T3, TSH, CMP, LIPID #### [facility] [address] [place] [address] Dr. Rayna Mathew Urea nitrogen [Mass/Vol] 11.0 mg/dL Normal 7.0-18.0 [facility] Comment on above: Performed By: #### F T3, TSH, CMP, LIPID #### [facility] [address] [place] [address] Dr. Rayna Mathew Urea nitrogen/Creatinine [Mass ratio] 11.5 mg/mg Normal [facility] Comment on above: Performed By: #### F T3, TSH, CMP, LIPID #### [facility] [address] [place] [address] Dr. Rayna Mathew TSHon 02-04-2022 TSH 1.905 uIU/mL Normal 0.358-3.740 [facility] Comment on above: Performed By: #### F T3, TSH, CMP, LIPID #### [facility] [address] [address] [address] Rayna aMthew Encounters Encounter Date Encounter Type Care Provider Facility Start: 09-13-2023 End: 09-13-2023 ambulatory Kisha Esteves Facility:[facility] Start: 09-13-2023 End: 09-13-2023 ambulatory MD Gen Peña Work Phone: [facility] Work Phone: Start: 09-13-2023 End: 09-13-2023 Departed Referred MD Gen Peña Work Phone: [facility] Start: 08-03-2023 ambulatory Facility: [facility] Start: 08-02-2023 End: 08-02-2023 ambulatory Gen Peña Facility:[facility] Start: 08-02-2023 End: 08-02-2023 Departed Referred MD Gen Peña Work Phone: [facility] Start: 07-30-2023 ambulatory Facility:[facility] Start: 07-14-2022 End: 07-15-[address] GEN PEÑA . Facility:[facility] Start: 02-10-[address] GEN PEÑA . Facili ty:[facility] Start: 02-08-2022 Encounter for genera l adult medical examination without abnormal findings DR GEN PEÑA . [facility] Start: 02-04-2022 End: 02-05-[address] GEN PEÑA . Facility:[facility] Start: 02-04-2022 End: 02-05-2022 Encounter for general adult medical examination without abnormal findings DR GEN PEÑA . Facility:[facility] Start: 08-01-[address] GEN PEÑA . Facili ty:[facility] Procedures Date Procedure Procedure Detail Performing Clinician Start: 02-04-[address] BERE PEÑA . Comment on above: Performed By: #### P SASC #### [facility] [address] [address] [address] Rayna Mathew Payers Date Payer Category Payer Self-pay 2018 Private Health Insurance 1970 Unknown [id number] 1971 Unknown [id number] 1971 Unknown [id number] 1971 Unknown [id number] 1971 Unknown [id number] 1959 Self-pay [id number] 1959 Unknown [id number] Unknown Johanna BC/BS [id number] Unknown [id number] Unknown [id number] Social History Date Type Detail Facility Tobacco smoking stat [facility] Unknown if ever smoked [facility] Work Phone: Start: 1970 Sex Assigned At Male F [facility] Evaluation note Note Date & Type Note Facility Evaluation note No assessment information availa ble [facility] Work Phone: Summary Purpose Family History [...] CREATED AUTHOR AUTHOR'S ORGANIZ ATION 09/15/2023 [facility] Care Teams (unrecognized sec [...] BE BASED ON THE PRIMARY CLINICAL RECORDS. [employer] provides no warranty or guarantee of the accuracy or completeness of information in this document.
[2023-11-29 08:18] LABS: Basophils Absolute Auto 0.1 10^3/uL (0.0-0.1); Basophils Percent Auto 1.9 % (0.2-2.0); Eosinophils Absolute Auto 0.2 10^3/uL (0.0-0.7); Eosinophils Percent Auto 5.6 % (0.9-7.0); Hematocrit 44.8 % (42.0-54.0); Hemoglobin 14.4 g/dL (14.0-18.0); Immature Granulocytes Abs Auto 0.01 10^3/uL (0.00-0.03); Immature Granulocytes Pct Auto 0.3 % (0.0-0.5); Lymphocytes Absolute Auto 1.2 10^3/uL (1.2-3.8); Lymphocytes Percent Auto 33.2 % (20.5-60.0); Mean Corpuscular HGB Conc 32.1 g/dL (29.9-35.2); Mean Corpuscular Hemoglobin 27.7 pg (25.9-34.0); Mean Corpuscular Volume 86.2 fL (80.0-94.0); Mean Platelet Volume 9.8 fL (9.5-13.5); Monocytes Absolute Auto 0.4 10^3/uL (0.3-0.8); Monocytes Percent Auto 11.3 % (1.7-12.0); Neutrophils Absolute Auto 1.8 10^3/uL (1.4-6.5); Neutrophils Percent Auto 47.7 % (43.0-75.0); Platelet Count 161 10^3/uL (150-450); Red Cell Distribution Width 25.2 % (11.0-15.0); White Blood Count 3.7 10^3/uL (4.0-11.0)
[2023-11-29 08:23] LABS: Alanine Aminotransferase 148 U/L (16-63); Albumin Globulin Ratio 0.9; Albumin Level 3.5 g/dL (3.4-5.0); Alkaline Phosphatase 80 U/L (46-116); Anion Gap 11.8; Aspartate Amino Transferase 152 U/L (15-37); BUN Creatinine Ratio 9.6; Bilirubin Total 0.5 mg/dL (0.2-1.0); Calcium 8.4 mg/dL (8.5-10.1); Carbon Dioxide 26.7 mmol/L (21.0-32.0); Chloride 97 mmol/L (98-107); Estimated GFR (African America >60 (>=60); Estimated GFR (Non-African Ame >60 (>=60); Globulin 4.1 g/dL; Glucose 105 mg/dL (74-106); Potassium 4.5 mmol/L (3.5-5.1); Sodium 131 mmol/L (136-145); Total Protein 7.6 g/dL (6.4-8.2)
[2023-11-29 09:40] LABS: Percent Iron Saturation 18.8 %
== END 2023-11-29 06:55 | disposition home or self-care (01) ==
LOC: LAB 06:55
PROVIDERS: PCP Family Medicine; Visit Provider Internal Medicine Hematology & Oncology
DX: D64.9 Anemia, unspecified (principal); D61.818 Other pancytopenia; D50.9 Iron deficiency anemia, unspecified; K90.9 Intestinal malabsorption, unspecified
CPT/HCPCS: 36415; 80053; 82728; 83540; 83550; 85025

== ENCOUNTER 2023-12-07 07:37 | Outpatient (RCR) | payer OTHER, SELFPAY | END 2023-12-22 23:59 | disposition home or self-care (01) | LOC: INF 07:37 | PROVIDERS: PCP Family Medicine; Visit Provider Internal Medicine Hematology & Oncology | DX: D50.9 Iron deficiency anemia, unspecified (principal); D61.818 Other pancytopenia; K90.9 Intestinal malabsorption, unspecified; D64.9 Anemia, unspecified; Z87.891 Personal history of nicotine dependence; D72.819 Decreased white blood cell count, unspecified; I10 Essential (primary) hypertension; R79.89 Other specified abnormal findings of blood chemistry | CPT/HCPCS: G0463 ==

== ENCOUNTER 2024-03-31 13:05 | Outpatient (OUT) | payer OTHER, SELFPAY ==
--- OUTSIDE RECORDS SUMMARY | 2024-03-31 13:10 | XMS_ITS | CCD ---
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 Name Role Phone ANDERSONY ., DR [...] BLEVINS Consulting MD Gen Ugarte Attending Provider [phone] MD Kisha Esteves Attending Provider [phone] Gen Peña Admitting Unavailable Gen Peña Attending Unavailable Kisha Esteves Attending Unavailable Kisha Esteves Admitting Unavailable Allergies Allergy Classification Reported Allergen(s) Allergy Type Date of Onset Reaction(s) Facility (1 source) No Known Medication Allergies; Translations: [No Known Medication Allergies] Propensity to adverse reactions (disorder) [facility] Repository Problems Active Problems Problem Classification Problem [...] 02-08-2022 Episodic Other aftercare (1 source) 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; Translations: [OTH ASSISTED CURRENT DRUG THERAPY] Onset: 02-08-2022 Episodic Other screening for suspected conditions (not mental disorders or infectious disease) (1 source) Encounter for screening for malignant neoplasm of prostate; Translations: [ENC SCREEN MALIG NEOPLASM PROSTATE] Onset: 02-08-2022 Episodic Results Test Name Value Interpretation Reference Range Facility [facility] 09-13-2023 L Specimen: BP- Received: 09/14/23 Status: DEION Cullen Num: [id number] Spec Type: Impression Subm Dr: Kisha Esteves MD Tissues: PATHPER Procedures: PATHREVIEW Age/ Patient Sex Location Account Attending Physician Eddie Martinez O 53/M [place] [id number] Kisha Esteves MD SPEC NUM: [id number] RECD: 09/14/23 STATUS: LORNEDago CULLEN NUM: [id number] ANDREA: 09/13/[address]: Kisha Esteves MD ENTERED: 09/14/[address]: Renaldo Fung SPEC TYPE: Impression DEPT: [facility] ENTERED BY: [id number] RECV BY: [id number] ORDERED: PATHREVIEW ORDERED: PATHREVIEW Pathologist Review Normocytic Anemia is noted. Bone Marrow Pathology Vs. Peripheral Etiology. [id number] ---- ---- Specimen: BP24 Received: 09/14/23 Status: DEION Garciarashmi Num: [id number] Spec Type: Impression Subm Dr: Kisha Esteves MD Tissues: PATHPER Procedures: PATHREVIEW ---- Patient: Eddie Martinez [id number] (Continued) ---- Signed (signature on file) Ethan Solano MD 09/15/23 1516 Normal [facility] ED Note-Physicianon 08-05-19 ED Note-Physician [id number] 30 [id number] 0TIFF Normal [facility] RAD - CT Reporton 08-05-2023 RAD - CT Report [id number] 0TIFF Normal [facility] Dragan 08-02-2023 L Specimen: [id number] Received: 08/03/23-1350 Status: DEION Deana Num: [id number] Spec Type: Impression Subm Dr: Gen Peña MD Tissues: PATHPER Procedures: PATHREVIEW Age/ Patient Sex Location Account Attending Physician Eddie Martinez 53/M [place] [id number] Gen Peña MD SPEC NUM: [id number] RECD: 08/03/23 STATUS: DEION CULLEN NUM: [id number] ANDREA: 08/02/23 [facility] DR: Gen Peña MD ENTERED: 08/03/[address] [facility] [address]: SPEC TYPE: Impression DEPT: [facility] ENTERED BY: [id number] RECV BY: [id number] ORDERED: PATHREVIEW ORDERED: PATHREVIEW Pathologist Review Abnormal [...] [id number] Received: 08/03/23 Status: DEION Cullen Num: [id number] Spec Type: Impression Subm Dr: Gen Peña MD Tissues: PATHPER Procedures: PATHREVIEW ---- Patient: Eddie Martinez Marychuy [id number] (Continued) ---- Specimen: [id number] Received: 08/03/23 (Continued) Pathologist Review (Continued) Signed (signature on file) Tammy Mathew MD 08/05/23 1828 ---- Specimen: [id number] Received: 08/03/23 Status: DEION Cullen Num: [id number] Spec Type: Impression Subm Dr: Gen Peña MD Tissues: PATHPER Procedures: PATHREVIEW ---- Patient: DiortiffanieEddie [id number] (Continued) ---- Specimen: BP24 Received: 08/03/23 (Continued) Pathologist Review (Continued) CPT: 25732 CBC No results available. ---- ---- Specimen: [id number] Received: 08/03/23 Status: DEION Cullen Num: [id number] Spec Type: Impression Subm Dr: Gen Peña MD Tissues: PATHPER Procedures: PATHREVIEW ---- Patient: Eddie Martinez [id number] (Continued) ---- Signed (signature on file) Chin-Fredo Mathew MD 08/05/23 1828 Normal [facility] Physician Referralon 024 Physician Referral [id number] 30 [id number] 0TIFF Normal [facility] T4 LABCORPon 02-05-2022 T4 [Mass/Vol] 9.2 ug/dL Normal 4.5-12.0 [facility] Comment on above: Performed By: #### T 4LC #### [facility] [address] [place] [address] Dr. Rayna Mathew CBC AUTO DIFFon 02-04-2022 BASO # 0.0 103/ul Normal 0.0-0.1 [facility] Comment on above: Performed By: #### C BC #### [facility] [address] [place] [address] Dr. Rayna Mathew Basophils/100 WBC (Bld) 0.7 % Normal 0.2-2.0 [facility] Comment on above: Performed By: #### C BC #### [facility] [address] [place] [address] Dr. Rayna Mathew EO # 0.4 103/ul Normal 0.0-0.7 [facility] Comment on above: Performed By: #### C BC #### [facility] [address] [place] [address] Dr. Rayna Mathew Eosinophils/100 WBC (Bld) 6.7 % Normal 0.9-7.0 [facility] Comment on above: Performed By: #### C BC #### [facility] [address] [place] [address] Dr. Rayna Mathew Erythrocyte distribution width (RBC) [Ratio] 13.5 % Normal 11.0-15.0 [facility] Comment on above: Performed By: #### C BC #### [facility] [address] [place] [address] Dr. Rayna Mathew Hematocrit (Bld) [Volume fraction] 37.2 % Critically low 42.0-54.0 [facility] Comment on above: Performed By: #### C BC #### [facility] [address] [place] [address] Dr. Rayna Mathew Hemoglobin (Bld) [Mass/Vol] 11.5 g/dL Critically low 14.0-18.0 [facility] Comment on above: Performed By: #### C BC #### [facility] [address] [place] [address] Dr. Rayna Mathew IG # 0.02 10e3/ul Normal 0.00-0.03 [facility] Comment on above: Performed By: #### C BC #### [facility] [address] [place] [address] Dr. Rayna Mathew IG % 0.3 % Normal 0.0-0.5 [facility] Comment on above: Performed By: #### C BC #### [facility] [address] [place] [address] Dr. Rayna Mathew LYMPH # 1.4 103/ul Normal 1.2-3.8 [facility] Comment on above: Performed By: #### C BC #### [facility] [address] [place] [address] Dr. Rayna Mathew Lymphocytes/100 WBC (Bld) 23.8 % Normal 20.5-60.0 [facility] Comment on above: Performed By: #### C BC #### [facility] [address] [place] [address] Dr. Rayna Mathew MANUAL DIFF REQ NO Normal [facility] Comment on above: Performed By: #### C BC #### [facility] [address] [place] [address] Dr. Rayna Mathew MCH (RBC) [Entitic mass] 27.4 pg Normal 25.9-34.0 [facility] Comment on above: Performed By: #### C BC #### [facility] [address] [place] [address] Dr. Rayna Mathew MCHC (RBC) [Mass/Vol] 30.9 g/dL Normal 29.9-35.2 [facility] Comment on above: Performed By: #### C BC #### [facility] [address] [place] [address] Dr. Rayna Mathew MCV (RBC) [Entitic vol] 88.6 fL Normal 80.0-94.0 [facility] Comment on above: Performed By: #### C BC #### [facility] [address] [place] [address] Dr. Rayna Mathew MONO # 0.6 103/ul Normal 0.3-0.8 [facility] Comment on above: Performed By: #### C BC #### [facility] [address] [place] [address] Dr. Rayna Mathew Monocytes/100 WBC (Bld) 9.2 % Normal 1.7-12.0 [facility] Comment on above: Performed By: #### C BC #### [facility] [address] [place] [address] Dr. Rayna Mathew NEUT # 3.5 103/ul Normal 1.4-6.5 [facility] Comment on above: Performed By: #### C BC #### [facility] [address] [place] [address] Dr. Rayna Mathew Neutrophils/100 WBC (Bld) 59.3 % Normal 43.0-75.0 [facility] Comment on above: Performed By: #### C BC #### [facility] [address] [place] [address] Dr. Rayna Mathew Platelet mean volume (Bld) [Entitic vol] 10.4 fL Normal 9.5-13.5 [facility] Comment on above: Performed By: #### C BC #### [facility] [address] [address] [address] Rayna Mathew PLT 182 103/ul Normal 150-450 [facility] Comment on above: Performed By: #### C BC #### [facility] [address] [address] [address] Rayna Mathew RBC 4.20 106/ul Critically low 4.70-6.10 [facility] Comment on above: Performed By: #### C BC #### [facility] [address] [address] [address] Rayna Mathew WBC 6.0 103/ul Normal 4.0-11.0 [facility] Comment on above: Performed By: #### C BC #### [facility] [address] [address] [address] Rayna Mathew FREE T3on 02-04-2022 FREE T3 3.28 pg/mlL Normal 2.18-3.98 [facility] Comment on above: Performed By: #### F T3, TSH, CMP, LIPID #### [facility] [address] [place] [address] Dr. Rayna Mathew GLYCOHEMOGLOBIN A1Con 2021 ADA RECOMMENDATION SEE BELOW Normal [facility] Comment on above: Result Comment: ADA RECOMMENDED LIMIT 4.0 - 6.0 ADA THERAPEUTIC TARGET < 7.0 ACTION SUGGESTED > 7.0 Performed By: #### A 1C #### [facility] [address] [place] [address] Dr. Rayna Mathew Glucose [Mass/Vol] 123 mg/dL Normal [facility] Comment on above: Performed By: #### A 1C #### [facility] [address] [place] [address] Dr. Rayna Mathew HbA1c (Bld) [Mass fraction] 5.9 % Normal 4.5-6.2 [facility] Comment on above: Performed By: #### A 1C #### [facility] [address] [place] [address] Dr. Rayna Mathew LIPID PROFILEon 02-04-2022 CHOL-HDL RATIO NORM SEE BELOW Normal [facility] Comment on above: Result Comment: 3.3 - 4.4 LOW RISK 4.4 - 7.1 AVERAGE RISK 7.1 - 11.0 MODERATE RISK >11.0 HIGH RISK Performed By: #### F T3, TSH, CMP, LIPID #### [facility] [address] [address] [address] Rayna Mathew Cholesterol [Mass/Vol] 158 mg/dL Normal <=200 [facility] Comment on above: Performed By: #### F T3, TSH, CMP, LIPID #### [facility] [address] [address] [address] Rayna Mathew Cholesterol in HDL [Mass/Vol] 47 mg/dL Normal 40-60 [facility] Comment on above: Performed By: #### F T3, TSH, CMP, LIPID #### [facility] [address] [place] [address] Dr. Rayna Mathew Cholesterol in LDL [Mass/Vol] 98.0 mg/dL Normal [facility] Comment on above: Performed By: #### F T3, TSH, CMP, LIPID #### [facility] [address] [place] [address] Dr. Rayna Mathew Cholesterol.total/Ch olesterol in HDL [Mass ratio] 3.4 {ratio} Normal [facility] Comment on above: Performed By: #### F T3, TSH, CMP, LIPID #### [facility] [address] [place] [address] Dr. Rayna Mathew HDL NORMAL > or = 60 mg/dl - LO W CARDIOVASCULAR RISK <40 mg/dl - HIGH CARDIOVASCULAR RISK Normal [facility] Comment on above: Performed By: #### F T3, TSH, CMP, LIPID #### [facility] [address] [place] [address] Dr. Rayna Mathew LDL CALC NORMAL SEE BELOW Normal [facility] Comment on above: Result Comment: <100 mg/dl OPTIMAL 100 - 129 mg/dl NEAR OR ABOVE OPTIMAL 130 - 159 mg/dl BORDERLINE HIGH 160 - 189 mg/dl HIGH >190 mg/dl VERY HIGH Performed By: #### F T3, TSH, CMP, LIPID #### [facility] [address] [place] [address] Dr. Rayna Mathew Triglyceride [Mass/Vol] 65 mg/dL Normal <=150 [facility] Comment on above: Performed By: #### F T3, TSH, CMP, LIPID #### [facility] [address] [address] [address] Rayna Mathew VLDL CALC 13.0 mg/dL Normal [facility] Comment on above: Performed By: #### F T3, TSH, CMP, LIPID #### [facility] [address] [address] [address] Rayna Mathew PROF 14(COMP METB)on 022 Albumin [Mass/Vol] 3.8 g/dL Normal 3.4-5.0 [facility] Comment on above: Performed By: #### F T3, TSH, CMP, LIPID #### [facility] [address] [address] [address] Rayna Mathew Albumin/Globulin [Mass ratio] 0.9 {ratio} Normal [facility] Comment on above: Performed By: #### F T3, TSH, CMP, LIPID #### [facility] [address] [address] [address] Rayna Mathew ALP [Catalytic activity/Vol] 76 U/L Normal 46-116 [facility] Comment on above: Performed By: #### F T3, TSH, CMP, LIPID #### [facility] [address] [address] [address] Rayna Mathew ALT [Catalytic activity/Vol] 109 U/L Critically high 16-63 [facility] Comment on above: Performed By: #### F T3, TSH, CMP, LIPID #### [facility] [address] [address] [address] Rayna Mathew Anion gap [Moles/Vol] 11.1 mmol/L Normal [facility] Comment on above: Performed By: #### F T3, TSH, CMP, LIPID #### [facility] [address] [address] [address] Rayna Mathew AST [Catalytic activity/Vol] 79 U/L Critically high 15-37 [facility] Comment on above: Performed By: #### F T3, TSH, CMP, LIPID #### [facility] [address] [address] [address] Rayna Mathew Bilirubin [Mass/Vol] 0.4 mg/dL Normal 0.2-1.0 [facility] Comment on above: Performed By: #### F T3, TSH, CMP, LIPID #### [facility] [address] [place] [address] Dr. Rayna Mathew Calcium [Mass/Vol] 9.0 mg/dL Normal 8.5-10.1 [facility] Comment on above: Performed By: #### F T3, TSH, CMP, LIPID #### [facility] [address] [address] [address] Rayna Mathew Chloride [Moles/Vol] 102 mmol/L Normal 98-107 [facility] Comment on above: Performed By: #### F T3, TSH, CMP, LIPID #### [facility] [address] [place] [address] Dr. Rayna Mathew CO2 [Moles/Vol] 29.5 mmol/L Normal 21.0-32.0 [facility] Comment on above: Performed By: #### F T3, TSH, CMP, LIPID #### [facility] [address] [place] [address] Dr. Rayna Mathew Creatinine [Mass/Vol] 0.96 mg/dL Normal 0.70-1.30 [facility] Comment on above: Performed By: #### F T3, TSH, CMP, LIPID #### [facility] [address] [place] [address] Dr. Rayna Mathew EGFR-AF SYRIAN >60 Normal >=60 [facility] Comment on above: Performed By: #### F T3, TSH, CMP, LIPID #### [facility] [address] [place] [address] Dr. Rayna Mathew EGFR-NON AF SYRIAN >60 Normal >=60 [facility] Comment on above: Performed By: #### F T3, TSH, CMP, LIPID #### [facility] [address] [place] [address] Dr. Rayna Mathew Globulin (S) [Mass/Vol] 4.0 g/dL Normal [facility] Comment on above: Performed By: #### F T3, TSH, CMP, LIPID #### [facility] [address] [address] [address] Rayna Mathew Glucose [Mass/Vol] 121 mg/dL Critically high 74-[address] [facility] Comment on above: Performed By: #### F T3, TSH, CMP, LIPID #### [facility] [address] [address] [address] Rayna Mathew Potassium [Moles/Vol] 4.6 mmol/L Normal 3.5-5.1 [facility] Comment on above: Performed By: #### F T3, TSH, CMP, LIPID #### [facility] [address] [address] [address] Rayna Mathew Protein [Mass/Vol] 7.8 g/dL Normal 6.4-8.2 [facility] Comment on above: Performed By: #### F T3, TSH, CMP, LIPID #### [facility] [address] [address] [address] Rayna Mathew Sodium [Moles/Vol] 138 mmol/L Normal 136-145 [facility] Comment on above: Performed By: #### F T3, TSH, CMP, LIPID #### [facility] [address] [place] [address] Dr. Rayna Mathew Urea nitrogen [Mass/Vol] 11.0 mg/dL Normal 7.0-18.0 [facility] Comment on above: Performed By: #### F T3, TSH, CMP, LIPID #### [facility] [address] [place] [address] Dr. Rayna Mathew Urea nitrogen/Creatinine [Mass ratio] 11.5 mg/mg Normal [facility] Comment on above: Performed By: #### F T3, TSH, CMP, LIPID #### [facility] [address] [place] [address] Dr. Rayna Mathew TSHon 02-04-2022 TSH 1.905 uIU/mL Normal 0.358-3.740 [facility] Comment on above: Performed By: #### F T3, TSH, CMP, LIPID #### [facility] [address] [address] [address] Rayna Mathew Encounters Encounter Date Encounter Type Care Provider Facility Start: 09-13-2023 End: 09-13-2023 ambulatory Kisha Esteves Facility:[facility] Start: 09-13-2023 End: 09-13-2023 ambulatory MD Gen Peña Work Phone: [facility] Work Phone: Start: 09-13-2023 End: 09-13-2023 Departed Referred MD Gen Peña Work Phone: [facility] Start: 08-03-2023 ambulatory Facility: [facility] Start: 08-02-2023 End: 08-02-2023 ambulatory Gen Peña Facility:[facility] Start: 08-02-2023 End: 08-02-2023 Departed Referred MD Gen Peña Work Phone: [facility] Start: 07-30-2023 ambulatory Facility:[facility] Start: 07-14-2022 End: 07-15-[address] GEN PEÑA . Facility:[facility] Start: 02-10-[address] GEN PEÑA . Facili ty:[facility] Start: 02-08-2022 Encounter for genera l adult medical examination without abnormal findings DR GEN PEÑA . [facility] Start: 02-04-2022 End: 02-05-[address] GNE PEÑA . Facility:[facility] Start: 02-04-2022 End: 02-05-2022 Encounter for general adult medical examination without abnormal findings DR GEN PEÑA . Facility:[facility] Start: 08-01-[address] GEN PEÑA . Facili ty:[facility] Procedures Date Procedure Procedure Detail Performing Clinician Start: 02-04-[address] BERE PEÑA . Comment on above: Performed By: #### P SASC #### [facility] [address] [address] [address] Rayna Mathew Payers Date Payer Category Payer Self-pay 2018 Private Health Insurance 1970 Unknown [id number] 1970 Unknown [id number] 1971 Unknown [id number] 1971 Unknown [id number] 1971 Unknown [id number] 1959 Self-pay [id number] 1958 Unknown [id number] Unknown Johanna BC/BS [id number] Unknown [id number] Unknown [id number] Social History Date Type Detail Facility Tobacco smoking stat [facility] Unknown if ever smoked [facility] Work Phone: Start: 1970 Sex Assigned At Male F [facility] Evaluation note Note Date & Type Note Facility Evaluation note No assessment information availa ble [facility] Work Phone: Summary Purpose Family [...] CREATED AUTHOR AUTHOR'S ORGANIZ ATION 08/06/2023 [facility] DATE CREATED AUTHOR AUTHOR'S ORGANIZ ATION 09/15/2023 [facility] Care Teams (unrecognized sec [...] BE BASED ON THE PRIMARY CLINICAL RECORDS. [employer] provides no warranty or guarantee of the accuracy or completeness of information in this document.
[2024-03-31 13:21] LABS: Basophils Absolute Auto 0.1 10^3/uL (0.0-0.1); Eosinophils Absolute Auto 0.2 10^3/uL (0.0-0.7); Eosinophils Percent Auto 2.7 % (0.9-7.0); Hematocrit 38.6 % (42.0-54.0); Hemoglobin 12.3 g/dL (14.0-18.0); Immature Granulocytes Abs Auto 0.01 10^3/uL (0.00-0.03); Immature Granulocytes Pct Auto 0.1 % (0.0-0.5); Lymphocytes Absolute Auto 1.6 10^3/uL (1.2-3.8); Lymphocytes Percent Auto 23.3 % (20.5-60.0); Mean Corpuscular HGB Conc 31.9 g/dL (29.9-35.2); Mean Corpuscular Hemoglobin 28.8 pg (25.9-34.0); Mean Corpuscular Volume 90.4 fL (80.0-94.0); Mean Platelet Volume 10.2 fL (9.5-13.5); Monocytes Absolute Auto 0.8 10^3/uL (0.3-0.8); Monocytes Percent Auto 11.4 % (1.7-12.0); Neutrophils Absolute Auto 4.1 10^3/uL (1.4-6.5); Neutrophils Percent Auto 61.5 % (43.0-75.0); Platelet Count 227 10^3/uL (150-450); Red Blood Count 4.27 10^6/uL (4.70-6.10); Red Cell Distribution Width 12.8 % (11.0-15.0); White Blood Count 6.7 10^3/uL (4.0-11.0)
[2024-03-31 13:35] LABS: Alanine Aminotransferase 104 U/L (16-63); Albumin Globulin Ratio 0.8; Albumin Level 3.1 g/dL (3.4-5.0); Alkaline Phosphatase 68 U/L (46-116); Anion Gap 10.2; Aspartate Amino Transferase 43 U/L (15-37); BUN Creatinine Ratio 11.1; Bilirubin Total 0.4 mg/dL (0.2-1.0); Calcium 8.3 mg/dL (8.5-10.1); Carbon Dioxide 28.9 mmol/L (21.0-32.0); Chloride 104 mmol/L (98-107); Estimated GFR (African America >60 (>=60 mL/min/1.73m^2); Estimated GFR (Non-African Ame >60 (>=60 mL/min/1.73m^2); Glucose 151 mg/dL (74-106); Potassium 4.1 mmol/L (3.5-5.1); Sodium 139 mmol/L (136-145); Total Protein 7.1 g/dL (6.4-8.2)
[2024-03-31 14:19] LABS: Percent Iron Saturation 8.7 %
== END 2024-03-31 13:06 | disposition home or self-care (01) ==
LOC: LAB 13:06
PROVIDERS: PCP Family Medicine; Visit Provider Internal Medicine Hematology & Oncology
DX: D64.9 Anemia, unspecified (principal); D61.818 Other pancytopenia; D50.9 Iron deficiency anemia, unspecified; K90.9 Intestinal malabsorption, unspecified; D72.819 Decreased white blood cell count, unspecified
CPT/HCPCS: 36415; 80053; 82728; 83540; 83550; 85025

== ENCOUNTER 2024-04-17 07:30 | Outpatient (RCR) | payer OTHER, SELFPAY ==
[2024-04-17 08:56] VITALS: BP 156/89; PULSE 67; TEMP 36.6; O2SAT 98
[2024-04-17] MEDS: FERRIC CARBOXYMALTOSE 750 MG in 0.9 % SODIUM CHLORIDE 250 ML 795 MG IV (09:20)
== END 2024-04-22 23:59 | disposition home or self-care (01) ==
LOC: HEMC 07:30
PROVIDERS: PCP Family Medicine; Visit Provider Internal Medicine Hematology & Oncology
DX: D50.9 Iron deficiency anemia, unspecified (principal); D61.818 Other pancytopenia; D64.9 Anemia, unspecified; K90.9 Intestinal malabsorption, unspecified; Z96.643 Presence of artificial hip joint, bilateral; Z87.891 Personal history of nicotine dependence; D72.819 Decreased white blood cell count, unspecified; I10 Essential (primary) hypertension
CPT/HCPCS: 96365; G0463; J1439

== ENCOUNTER 2024-04-24 07:31 | Outpatient (RCR) | payer OTHER, SELFPAY ==
[2024-04-24 08:58] VITALS: BP 153/87; PULSE 62; TEMP 36.4; O2SAT 98
[2024-04-24] MEDS: FERRIC CARBOXYMALTOSE 750 MG in 0.9 % SODIUM CHLORIDE 250 ML 795 MG IV (09:19)
== END 2024-04-24 13:53 | disposition home or self-care (01) ==
LOC: HEMC 07:31
PROVIDERS: PCP Family Medicine; Visit Provider Internal Medicine Hematology & Oncology
DX: D50.9 Iron deficiency anemia, unspecified (principal); D61.818 Other pancytopenia; K90.9 Intestinal malabsorption, unspecified; D64.9 Anemia, unspecified
CPT/HCPCS: 96365; J1439

== ENCOUNTER 2024-05-04 13:05 | Outpatient (OUT) | payer OTHER, SELFPAY | END 2024-05-04 13:06 | disposition home or self-care (01) | LOC: PST 13:05 | PROVIDERS: PCP Family Medicine; Visit Provider Surgery | DX: Z01.818 Encounter for other preprocedural examination (principal); D50.9 Iron deficiency anemia, unspecified; K25.9 Gastric ulcer, unspecified as acute or chronic, without hemorrhage or perforation; R10.13 Epigastric pain; K92.1 Melena ==

== ENCOUNTER 2024-05-10 09:11 | Day surgery (SDC) | payer OTHER, SELFPAY ==
--- NOTE | 2024-05-10 | OP_ITS ---
OP Note OPERATION DATE: 05/10/2024 PREOPERATIVE DIAGNOSIS: Positive fecal occult blood test, as well as anemia. 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 PROCEDURE: EGD and colonoscopy to cecum with biopsies of cecal mass, cold biopsy forceps polypectomy for descending colon polyp, and hot snare polypectomy x1 for pedunculated sigmoid polyp. SURGEON: Geoffrey Edmond M.D. ANESTHESIA: Monitored anesthesia care. ESTIMATED BLOOD LOSS: Less than 1 mL. INDICATIONS AND CONSENT: Patient is a 54-year-old male, with iron deficiency anemia, as well as fecal occult blood test, positive history of possible ulcer disease. He has not had a previous EGD. Did have a colonoscopy approximately six years ago with removal of some hyperplastic polyps. Indications, risks, benefits, alternatives of proceeding with EGD and colonoscopy were explained extensively to the patient, including the risks of bleeding, aspiration, esophageal/gastric/duodenal or colonic perforation or anesthetic complications. All of his questions were answered. Informed consent was obtained. PROCEDURE: Patient brought to the operating room, placed in the left lateral decubitus position. Monitored anesthesia care was provided. Bite block was placed in the patient?s mouth. Scope was inserted into the oropharynx. Under direct visualization, it was advanced into the esophagus, past the cricopharyngeus, down to the stomach. The stomach was insufflated with air. The pylorus was traversed down to the descending portion of the duodenum. There was no evidence of duodenitis or ulceration. There was no scarring within the pyloric channel. The scope was pulled back into the stomach and retroflexed. There was no significant hiatal hernia. The GE junction was noted at approximately 45 cm. There was no distal esophagitis or Garcia?s changes. Remainder of the esophagus was unremarkable. The scope was then withdrawn. Patient was then positioned for colonoscopy. Rectal exam was performed, which showed no masses or blood. The scope was then inserted into the anal canal. Under direct visualization, it was advanced. With the aid of abdominal compression, it was advanced to the cecum. Within the cecum, around the appendix, there was noted to be an ulcerated mass that appeared to be encircling the appendix and extending down into the appendix. It was hard and ulcerated with a friable exophytic edge. Multiple biopsies were obtained with good hemostasis. Within the proximal descending colon, there was noted to be a 3 mm sessile polyp that was removed with cold biopsy forceps with good hemostasis. Within the sigmoid colon, there was noted to be moderate sigmoid diverticulosis, as well as a pedunculated, erythematous, 7 mm polyp that was removed with hot snare with good hemostasis. The scope was retroflexed in the anal canal. There were noted to be some prominent rectal veins. No significant hemorrhoidal disease. The scope was then withdrawn. The patient tolerated procedure well, was sent to recovery room in good condition. Follow up colonoscopy will likely occur a year after colon resection. CC: Delta Pratt M.D. BLA[facility]
[2024-05-10 09:15] VITALS: BP 163/102; PULSE 88; TEMP 36.4; O2SAT 97; BMI 38.8
[2024-05-10] MEDS: 0.9 % SODIUM CHLORIDE 500 ML 50 ML IV (09:34)
[2024-05-10 10:37] VITALS: BP 100/69; PULSE 80; TEMP 36.3; O2SAT 97
[2024-05-10 10:52] VITALS: BP 133/76; PULSE 63; O2SAT 99
[2024-05-10 11:07] VITALS: BP 142/87; PULSE 61; O2SAT 98
== END 2024-05-10 11:07 | disposition home or self-care (01) ==
PROVIDERS: PCP Family Medicine; Visit Provider Surgery
PROC: (CPT 813; principal; 2024-05-10 09:55)
DX: C18.0 Malignant neoplasm of cecum (principal); D12.5 Benign neoplasm of sigmoid colon; D12.4 Benign neoplasm of descending colon; K57.30 Diverticulosis of large intestine without perforation or abscess without bleeding; D50.9 Iron deficiency anemia, unspecified; R10.33 Periumbilical pain; R10.13 Epigastric pain; R19.5 Other fecal abnormalities; Z86.0102 Personal history of hyperplastic colon polyps; I10 Essential (primary) hypertension; F17.220 Nicotine dependence, chewing tobacco, uncomplicated; G47.33 Obstructive sleep apnea (adult) (pediatric); E66.01 Morbid (severe) obesity due to excess calories; F10.10 Alcohol abuse, uncomplicated; Z96.641 Presence of right artificial hip joint; Z79.899 Other long term (current) drug therapy; Z68.38 Body mass index [BMI] 38.0-38.9, adult
CPT/HCPCS: 43235; 45380; 45385; J2704

== ENCOUNTER 2024-05-15 10:22 | Emergency (ER) | payer OTHER, SELFPAY ==
[2024-05-15 10:26] VITALS: BP 151/98; PULSE 86; TEMP 36.9; O2SAT 98; BMI 51.7
--- OUTSIDE RECORDS SUMMARY | 2024-05-15 10:37 | XMS_ITS | CCD ---
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 Name Role Phone ANDERSONY ., DR [...] Unavailable HOY ., DR BLEVINS Consulting Unavailable MD Gen Pratt Attending Provider MD Franklin Esteves Attending Provider Gen Pratt Primary Care Physician Geoffrey EDMOND Attending Unavailable FRANKLIN ESTEVES Referring Unavailable Gen Pratt Admitting Unavailable Gen Pratt Attending Unavailable Franklin Esteves Admitting Unavailable Franklin Esteves Attending Unavailable Geoffrey Edmond Admitting Unavailable Geoffrey Edmond Attending Unavailable Allergies Allergy Classification Reported Allergen(s) Allergy Type Date of Onset Reaction(s) Facility (1 source) No Known Medication Allergies; Translations: [No Known Medication Allergies] Propensity to adverse reactions (disorder) [facility] Repository Medications Current Medications Medication Drug Class(es) Dates Sig (Normalized) Sig (Original) azilsartan medoxomil 80 mg oral tablet (1 source) Angiotensin 2 Receptor Connie Start: 06-03-2018 take 80 mg by mouth once daily Edarbi 80 mg, Oral, Daily, Refills(s) 0, High blood pressure Start Date: 06/03/18 Status: Ordered pantoprazole 40 mg delayed release oral tablet (1 source) Proton Pump Inhibitor Start: 04-18-2024 take 1 tablet by mouth once daily Protonix 40 mg Tab-DR 40 mg = 1 tab(s), Oral, Daily, Refills(s) 0 Start Date: 04/18/24 Status: Ordered sucralfate 1000 mg oral tablet (1 source) Aluminum Complex Start: 04-17-2024 Carafate 1 gram Tab 1 gm = 1 tab(s), Oral, QIDACHS, Refills(s) 0 Start Date: 04/17/24 Status: Ordered Problems Active Problems Problem Classification Problem Date Documented Da te Episodic/Chronic Abdominal pain (4 sources) Epigastric pain; Translations: [Epigastric pain] Onset: 04-25-2024 Episodic Alcohol-related disorders (1 source) History of alcohol abuse 04-17-2024 Chronic Deficiency and other anemia (1 source) Pancytopenia 04-17-2024 Chronic Deficiency and other anemia (2 sources) Iron deficiency anemia; Translations: [Iron deficiency anemia, unspecified] Onset: 04-25-2024 Episodic Deficiency and other anemia (1 source) Anemia 04-17-2024 Episodic Disorders of lipid metabolism (2 sources) Hyperlipidemia, unspecified; Translations: [Hyperlipidemia] Onset: 02-08-2022 04-17-2024 Chronic Essential hypertension (2 sources) Essential (primary) hypertension; Translations: [Essential hypertension] Onset: 02-08-2022 04-17-2024 Chronic Other gastrointestinal disorders (1 source) Intestinal malabsorption 04-17-2024 Chronic Other gastrointestinal disorders (1 source) Abnormal feces; Translations: [Other fecal abnormalities] Onset: 04-25-2024 Episodic Other gastrointestinal disorders (1 source) Occult blood in stools 04-17-2024 Episodic Other liver diseases (1 source) Steatosis of liver 04-17-2024 Chronic Other nutritional; endocrine; and metabolic disorders (1 source) Body mass index 30+ - obesity 04-25-2024 Chronic Other nutritional; endocrine; and metabolic disorders (1 source) Morbid obesity 04-17-2024 Chronic Residual codes; unclassified (4 sources) Obstructive sleep apnea (adult) (pediatric); Translations: [OBSTRUCTIVE SLEEP APNEA] Onset: 07-14-2022 Chronic Residual codes; unclassified (1 source) Sleep apnea 04-17-2024 Chronic Past or Other Problems Problem Classification Problem Date Documented Da te Episodic/Chronic Malaise and fatigue (1 source) Other fatigue; Translations: [OTHER FATIGUE] Onset: 02-08-2022 Episodic Other aftercare (1 source) Other prison (current) drug therapy; Translations: [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] Onset: 02-08-2022 Episodic Other screening for suspected conditions (not mental disorders or infectious disease) (1 source) Encounter for screening for malignant neoplasm of prostate; Translations: [ENC SCREEN MALIG NEOPLASM PROSTATE] Onset: 02-08-2022 Episodic Results Test Name Value Interpretation Reference Range Facility Ambulatory Visit Summaryon 1 06-26-2023 Ambulatory Visit Summary Ambulatory Visit Summary PIPER RODRÍGUEZ Marychuy :1970 Visit Date:04/25/2024 Ambulatory Visit Instructions Your Diagnosis Epigastric pain Positive occult stool blood test Iron deficiency anemia Your Care Team Attending Physician - FLORIDALMA PATEL, Geoffrey Galeana Primary Care Physician - Santa PATEL, Gen Referring Physician - DR. FRANKLIN ESTEVES This Is Your Medications List Contact prescribing physician if questions or concerns azilsartan (Edarbi) pantoprazole (Protonix 40 mg Tab-DR) sucralfate (Carafate 1 gram Tab) Procedures Performed Colonoscopy (06/03/2018), Arthroplasty of left hip, Arthroplasty of right hip. Discharge Vitals Heart Rate (Peripheral) 68 Respiratory Rate 16 Blood Pressure 138/80 Height 177.8 cm Height 70 in Weight 125 kg Weight 275.578 lb BMI 39.54 Medications What How Much When Instructions Unchanged azilsartan (Edarbi) 80 Milligram By Mouth Every day Contact prescribing physician if questions or concerns Unchanged pantoprazole (Protonix 40 mg Tab-DR) 1 Tablets By Mouth Every day Contact prescribing physician if questions or concerns Unchanged sucralfate (Carafate 1 gram Tab) 1 Tablets By Mouth Four times a day (before meals and at bedtime) Contact prescribing physician if questions or concerns Allergies No Known Allergies No Known Medication Allergies Problems Ongoing - Any problem that you are currently receiving treatment for. Anemia BMI 39.0-39.9,adult Epigastric pain Essential hypertension Fatty liver History of alcohol abuse Hyperlipidemia Intestinal malabsorption Iron deficiency anemia Morbid obesity Other pancytopenia Positive occult stool blood test Sleep apnea Patient Survey You may receive a survey via text or e-mail asking about your office visit. Please share your experience with us by completing your survey. We appreciate your feedback and thank you for choosing us for your care. Andrea Ann [facility] Dragan 09-13-2023 L Specimen: BP Received: 09/14/23 Status: DEION Rerashmi Num: [id number] Spec Type: Impression Subm Dr: Franklin Esteves MD Tissues: PATHPER Procedures: PATHREVIEW Age/ Patient Sex Location Account Attending Physician Piper Rodríguez O 53/M [place] [id number] Franklin Esteves MD SPEC NUM: RECD: 09/14/23 STATUS: DEION LEBLANC NUM: [id number] ANDREA: 09/13/[address]: Franklin Esteves MD ENTERED: 09/14/[address] [facility] [address]: Renaldo Fung SPEC TYPE: Impression DEPT: [facility] ENTERED BY: [id number] RECV BY: [id number] ORDERED: PATHREVIEW ORDERED: PATHREVIEW Pathologist Review Normocytic Anemia is noted. Bone Marrow Pathology Vs. Peripheral Etiology. 57729 ---- ---- Specimen: [id number] Received: 09/14/23 Status: DEION Leblanc Num: [id number] Spec Type: Impression Subm Dr: Franklin Esteves MD Tissues: PATHPER Procedures: PATHREVIEW ---- Patient: Piper Rodríguez [id number] (Continued) ---- Signed (signature on file) Ethan Solano MD 09/15/23 1516 Normal [facility] ED Note-Physicianon 08-05-19 ED Note-Physician [id number] 30 [id number]#[id number] 0TIFF Normal [facility] RAD - CT Reporton 08-05-2023 RAD - CT Report [id number]#1.0 0TIFF Normal [facility] Dragan 08-02-2023 L Specimen: [id number]- Received: 08/03/23 Status: SOUT Req Num: [id number] Spec Type: Impression Subm Dr: Gen Pratt MD Tissues: PATHPER Procedures: PATHREVIEW Age/ Patient Sex Location Account Attending Physician Piper Rodríguez 53/M [place] [id number] Gen Pratt MD SPEC NUM: [id number] RECD: 08/03/23 STATUS: SOUT REQ NUM: [id number] ANDREA: 08/02/23-[address]: Gen Pratt MD ENTERED: 08/03/23-13[address] [facility] [address]: SPEC TYPE: Impression DEPT: [facility] ENTERED BY: [id number] RECV BY: [id number] ORDERED: PATHREVIEW ORDERED: PATHREVIEW Pathologist Review Abnormal [...] [id number] Received: 08/03/23 Status: DEION Leblanc Num: [id number] Spec Type: Impression Subm Dr: Gen Pratt MD Tissues: PATHPER Procedures: PATHREVIEW ---- Patient: Piper Rodríguez [id number] (Continued) ---- Specimen: [id number] Received: 08/03/23 (Continued) Pathologist Review (Continued) Signed (signature on file) Tammy Mathew MD 08/05/23 1828 ---- Specimen: [id number] Received: 08/03/23 Status: DEION Leblanc Num: [id number] Spec Type: Impression Subm Dr: Gen Pratt MD Tissues: PATHPER Procedures: PATHREVIEW ---- Patient: Piper Rodríguez [id number] (Continued) ---- Specimen: [id number]- Received: 08/03/23 (Continued) Pathologist Review (Continued) CPT: 74675 CBC No results available. ---- ---- Specimen: [id number] Received: 08/03/23 Status: LORNEDago Leblanc Num: [id number] Spec Type: Impression Subm Dr: Gen Pratt MD Tissues: PATHPER Procedures: PATHREVIEW ---- Patient: Piper Rodríguez [id number] (Continued) ---- Signed (signature on file) José-Fredo Mathew MD 08/05/23 1828 Normal [facility] Physician Referralon 024 Physician Referral [id number] 30 [id number] 0TIFF Normal [facility] T4 LABCORPon 02-05-2022 T4 [Mass/Vol] 9.2 ug/dL Normal 4.5-12.0 [facility] Comment on above: Performed By: #### T 4LC #### [facility] [address] [place] [address] Dr. Rayna Mathew CBC AUTO DIFFon 02-04-2022 BASO # 0.0 103/ul Normal 0.0-0.1 [facility] Comment on above: Performed By: #### C BC #### [facility] [address] [place] [address] Dr. Rayna Mathew Basophils/100 WBC (Bld) 0.7 % Normal 0.2-2.0 [facility] Comment on above: Performed By: #### C BC #### [facility] [address] [place] [address] Dr. Rayna Mathew EO # 0.4 103/ul Normal 0.0-0.7 [facility] Comment on above: Performed By: #### C BC #### [facility] [address] [place] [address] Dr. Rayna Mathew Eosinophils/100 WBC (Bld) 6.7 % Normal 0.9-7.0 [facility] Comment on above: Performed By: #### C BC #### [facility] [address] [place] [address] Dr. Rayna Mathew Erythrocyte distribution width (RBC) [Ratio] 13.5 % Normal 11.0-15.0 [facility] Comment on above: Performed By: #### C BC #### [facility] [address] [place] [address] Dr. Rayna Mathew Hematocrit (Bld) [Volume fraction] 37.2 % Critically low 42.0-54.0 [facility] Comment on above: Performed By: #### C BC #### [facility] [address] [place] [address] Dr. Rayna Mathew Hemoglobin (Bld) [Mass/Vol] 11.5 g/dL Critically low 14.0-18.0 [facility] Comment on above: Performed By: #### C BC #### [facility] [address] [place] [address] Dr. Rayna Mathew IG # 0.02 10e3/ul Normal 0.00-0.03 [facility] Comment on above: Performed By: #### C BC #### [facility] [address] [place] [address] Dr. Rayna Mathew IG % 0.3 % Normal 0.0-0.5 [facility] Comment on above: Performed By: #### C BC #### [facility] [address] [place] [address] Dr. Rayna Mathew LYMPH # 1.4 103/ul Normal 1.2-3.8 [facility] Comment on above: Performed By: #### C BC #### [facility] [address] [place] [address] Dr. Rayna Mathew Lymphocytes/100 WBC (Bld) 23.8 % Normal 20.5-60.0 [facility] Comment on above: Performed By: #### C BC #### [facility] [address] [place] [address] Dr. Rayna Mathew MANUAL DIFF REQ NO Normal [facility] Comment on above: Performed By: #### C BC #### [facility] [address] [place] [address] Dr. Rayna Mathew MCH (RBC) [Entitic mass] 27.4 pg Normal 25.9-34.0 [facility] Comment on above: Performed By: #### C BC #### [facility] [address] [place] [address] Dr. Rayna Mathew MCHC (RBC) [Mass/Vol] 30.9 g/dL Normal 29.9-35.2 [facility] Comment on above: Performed By: #### C BC #### [facility] [address] [place] [address] Dr. Rayna Mathew MCV (RBC) [Entitic vol] 88.6 fL Normal 80.0-94.0 [facility] Comment on above: Performed By: #### C BC #### [facility] [address] [place] [address] Dr. Rayna Mathew MONO # 0.6 103/ul Normal 0.3-0.8 [facility] Comment on above: Performed By: #### C BC #### [facility] [address] [place] [address] Dr. Rayna Mathew Monocytes/100 WBC (Bld) 9.2 % Normal 1.7-12.0 [facility] Comment on above: Performed By: #### C BC #### [facility] [address] [place] [address] Dr. Rayna Mathew NEUT # 3.5 103/ul Normal 1.4-6.5 [facility] Comment on above: Performed By: #### C BC #### [facility] [address] [place] [address] Dr. Rayna Mathew Neutrophils/100 WBC (Bld) 59.3 % Normal 43.0-75.0 [facility] Comment on above: Performed By: #### C BC #### [facility] [address] [place] [address] Dr. Rayna Mathew Platelet mean volume (Bld) [Entitic vol] 10.4 fL Normal 9.5-13.5 [facility] Comment on above: Performed By: #### C BC #### [facility] [address] [place] [address] Dr. Rayna Mathew PLT 182 103/ul Normal 150-450 [facility] Comment on above: Performed By: #### C BC #### [facility] [address] [place] [address] Dr. Rayna Mathew RBC 4.20 106/ul Critically low 4.70-6.10 [facility] Comment on above: Performed By: #### C BC #### [facility] [address] [address] [address] Rayna Mathew WBC 6.0 103/ul Normal 4.0-11.0 [facility] Comment on above: Performed By: #### C BC #### [facility] [address] [address] [address] Rayna Mathew FREE T3on 02-04-2022 FREE T3 3.28 pg/mlL Normal 2.18-3.98 [facility] Comment on above: Performed By: #### F T3, TSH, CMP, LIPID #### [facility] [address] [place] [address] Dr. Ranya Mathew GLYCOHEMOGLOBIN A1Con 2021 ADA RECOMMENDATION SEE BELOW Normal [facility] Comment on above: Result Comment: ADA RECOMMENDED LIMIT 4.0 - 6.0 ADA THERAPEUTIC TARGET < 7.0 ACTION SUGGESTED > 7.0 Performed By: #### A 1C #### [facility] [address] [place] [address] Dr. Rayna Mathew Glucose [Mass/Vol] 123 mg/dL Normal [facility] Comment on above: Performed By: #### A 1C #### [facility] [address] [place] [address] Dr. Rayna Mathew HbA1c (Bld) [Mass fraction] 5.9 % Normal 4.5-6.2 [facility] Comment on above: Performed By: #### A 1C #### [facility] [address] [place] [address] Dr. Rayna Mathew LIPID PROFILEon 02-04-2022 CHOL-HDL RATIO NORM SEE BELOW Normal [facility] Comment on above: Result Comment: 3.3 - 4.4 LOW RISK 4.4 - 7.1 AVERAGE RISK 7.1 - 11.0 MODERATE RISK >11.0 HIGH RISK Performed By: #### F T3, TSH, CMP, LIPID #### [facility] [address] [place] [address] Dr. Rayna Mathew Cholesterol [Mass/Vol] 158 mg/dL Normal <=200 [facility] Comment on above: Performed By: #### F T3, TSH, CMP, LIPID #### [facility] [address] [address] [address] Rayna Mathew Cholesterol in HDL [Mass/Vol] 47 mg/dL Normal 40-60 [facility] Comment on above: Performed By: #### F T3, TSH, CMP, LIPID #### [facility] [address] [address] [address] Rayna Mathew Cholesterol in LDL [Mass/Vol] 98.0 mg/dL Normal [facility] Comment on above: Performed By: #### F T3, TSH, CMP, LIPID #### [facility] [address] [place] [address] Dr. Rayna Mathew Cholesterol.total/Ch olesterol in HDL [Mass ratio] 3.4 {ratio} Normal [facility] Comment on above: Performed By: #### F T3, TSH, CMP, LIPID #### [facility] [address] [address] [address] Rayna Mathew HDL NORMAL > or = 60 mg/dl - LO W CARDIOVASCULAR RISK <40 mg/dl - HIGH CARDIOVASCULAR RISK Normal [facility] Comment on above: Performed By: #### F T3, TSH, CMP, LIPID #### [facility] [address] [address] [address] Rayna Mathew LDL CALC NORMAL SEE BELOW Normal [facility] Comment on above: Result Comment: <100 mg/dl OPTIMAL 100 - 129 mg/dl NEAR OR ABOVE OPTIMAL 130 - 159 mg/dl BORDERLINE HIGH 160 - 189 mg/dl HIGH >190 mg/dl VERY HIGH Performed By: #### F T3, TSH, CMP, LIPID #### [facility] [address] [address] [address] Rayna Mathew Triglyceride [Mass/Vol] 65 mg/dL Normal <=150 [facility] Comment on above: Performed By: #### F T3, TSH, CMP, LIPID #### [facility] [address] [address] [address] Rayna Mathew VLDL CALC 13.0 mg/dL Normal [facility] Comment on above: Performed By: #### F T3, TSH, CMP, LIPID #### [facility] [address] [address] [address] Rayna Mathew PROF 14(COMP METB)on 022 Albumin [Mass/Vol] 3.8 g/dL Normal 3.4-5.0 [facility] Comment on above: Performed By: #### F T3, TSH, CMP, LIPID #### [facility] [address] [address] [address] Rayna Mathew Albumin/Globulin [Mass ratio] 0.9 {ratio} Normal [facility] Comment on above: Performed By: #### F T3, TSH, CMP, LIPID #### [facility] [address] [address] [address] Rayna Mathew ALP [Catalytic activity/Vol] 76 U/L Normal 46-116 [facility] Comment on above: Performed By: #### F T3, TSH, CMP, LIPID #### [facility] [address] [address] [address] Rayna Mathew ALT [Catalytic activity/Vol] 109 U/L Critically high 16-63 [facility] Comment on above: Performed By: #### F T3, TSH, CMP, LIPID #### [facility] [address] [address] [address] Rayna Mathew Anion gap [Moles/Vol] 11.1 mmol/L Normal [facility] Comment on above: Performed By: #### F T3, TSH, CMP, LIPID #### [facility] [address] [address] [address] Rayna Mathew AST [Catalytic activity/Vol] 79 U/L Critically high 15-37 [facility] Comment on above: Performed By: #### F T3, TSH, CMP, LIPID #### [facility] [address] [address] [address] Rayna Mathew Bilirubin [Mass/Vol] 0.4 mg/dL Normal 0.2-1.0 [facility] Comment on above: Performed By: #### F T3, TSH, CMP, LIPID #### [facility] [address] [address] [address] Rayna Mathew Calcium [Mass/Vol] 9.0 mg/dL Normal 8.5-10.1 [facility] Comment on above: Performed By: #### F T3, TSH, CMP, LIPID #### [facility] [address] [address] [address] Rayna Mathew Chloride [Moles/Vol] 102 mmol/L Normal 98-107 [facility] Comment on above: Performed By: #### F T3, TSH, CMP, LIPID #### [facility] [address] [address] [address] Rayna Mathew CO2 [Moles/Vol] 29.5 mmol/L Normal 21.0-32.0 [facility] Comment on above: Performed By: #### F T3, TSH, CMP, LIPID #### [facility] [address] [place] [address] Dr. Rayna Mathew Creatinine [Mass/Vol] 0.96 mg/dL Normal 0.70-1.30 [facility] Comment on above: Performed By: #### F T3, TSH, CMP, LIPID #### [facility] [address] [place] [address] Dr. Rayna Mathew EGFR-AF SOUTH AFRICAN >60 Normal >=60 [facility] Comment on above: Performed By: #### F T3, TSH, CMP, LIPID #### [facility] [address] [place] [address] Dr. Ranya Mathew EGFR-NON AF SOUTH AFRICAN >60 Normal >=60 [facility] Comment on above: Performed By: #### F T3, TSH, CMP, LIPID #### [facility] [address] [address] [address] Rayna Mathew Globulin (S) [Mass/Vol] 4.0 g/dL Normal [facility] Comment on above: Performed By: #### F T3, TSH, CMP, LIPID #### [facility] [address] [address] [address] Rayna Mathew Glucose [Mass/Vol] 121 mg/dL Critically high 74-106 [facility] Comment on above: Performed By: #### F T3, TSH, CMP, LIPID #### [facility] [address] [address] [address] Rayna Mathew Potassium [Moles/Vol] 4.6 mmol/L Normal 3.5-5.1 [facility] Comment on above: Performed By: #### F T3, TSH, CMP, LIPID #### [facility] [address] [address] [address] Rayna Mathew Protein [Mass/Vol] 7.8 g/dL Normal 6.4-8.2 [facility] Comment on above: Performed By: #### F T3, TSH, CMP, LIPID #### [facility] [address] [place] [address] Dr. Rayna Mathew Sodium [Moles/Vol] 138 mmol/L Normal 136-145 [facility] Comment on above: Performed By: #### F T3, TSH, CMP, LIPID #### [facility] [address] [place] [address] Dr. Rayna Mathew Urea nitrogen [Mass/Vol] 11.0 mg/dL Normal 7.0-18.0 [facility] Comment on above: Performed By: #### F T3, TSH, CMP, LIPID #### [facility] [address] [place] [address] Dr. Rayna Mathew Urea nitrogen/Creatinine [Mass ratio] 11.5 mg/mg Normal [facility] Comment on above: Performed By: #### F T3, TSH, CMP, LIPID #### [facility] [address] [place] [address] Dr. Rayna Mathew TSHon 02-04-2022 TSH 1.905 uIU/mL Normal 0.358-3.740 [facility] Comment on above: Performed By: #### F T3, TSH, CMP, LIPID #### [facility] [address] [place] [address] Dr. Rayna Mathew Vital Signs Date Time Vital Sign Value Performing Clinician Paramjit mclean 04-25-2024 10:21-0500 Blood Pressure Location Geoffrey NILL [facility] [place] 04-25-2024 10:21-0500 Diastolic blood pressure 80 mm[Hg] Geoffrey NILL [facility] [place] 04-25-2024 10:21-0500 Heart rate 68 /min Geoffrey NILL [facility] [place] 04-25-2024 10:21-0500 Respiratory rate 16 /min Geoffrey NILL [facility] [place] 04-25-2024 10:21-0500 Systolic blood pressure 138 mm[Hg] Geoffrey NILL [facility] Encounters Encounter Date Encounter Type Care Provider Facility Start: 05-10-2024 End: 05-10-2024 ambulatory Geoffrey R Nill Facility:[facility] Start: 04-25-2024 End: 04-25-2024 ambulatory [facility] Start: 04-25-2024 End: 04-25-2024 Patient encounter procedure Geoffrey R NILL [facility] [place] Start: 09-13-2023 End: 09-13-2023 ambulatory Franklin Esteves [facility] Work Phone: Start: 09-13-2023 End: 09-13-2023 Departed Referred MD Gen Pratt Work Phone: [facility] Start: 08-03-2023 ambulatory Geoffrey NILL Facility:[facility] Start: 08-02-2023 End: 08-02-2023 ambulatory Gen Pratt Facility:[facility] Start: 08-02-2023 End: 08-02-2023 Departed Referred MD Gen Pratt Work Phone: [facility] Start: 07-30-2023 ambulatory Geoffrey MENDEZL Facility:[facility] Start: 07-14-2022 End: 07-15-[address] GEN PRATT . Facility:[facility] Start: 02-10-[address] GEN PRATT . Facili ty:[facility] Start: 02-08-2022 Encounter for genera l adult medical examination without abnormal findings DR GEN PRATT . [facility] Start: 02-04-2022 End: 02-05-[address] GEN PRATT . Facility:[facility] Start: 02-04-2022 End: 02-05-2022 Encounter for general adult medical examination without abnormal findings DR GEN PRATT . Facility:[facility] Start: 08-01-[address] GEN PRATT . Facili ty:[facility] Procedures Date Procedure Procedure Detail Performing Clinician Start: 02-04-[address] BERE PRATT . Comment on above: Performed By: #### P [facility] #### [facility] [address] [place] [address] Dr. Rayna Mathew Start: 06-03-2018 Colonoscopy Geoffrey NI LL Repair of joint of l eft hip Geoffrey NILL Repair of joint of r ight hip Geoffrey NILL Immunizations Immunization Date Immunization Notes Care Provider Fa ulisses 09-19-2020 SARS-CoV-2 (COVID-19 ) mRNA-1273 vaccine Geoffrey NILL [facility] Comment on above: Result Comment: 2023: [id number] 08-22-2020 SARS-CoV-2 (COVID-19 ) mRNA-1273 vaccine Geoffrey NILL [facility] Comment on above: Result Comment: 2023: [id number] Payers Date Payer Category Payer Self-pay 2018 Private Health Insurance 1970 Unknown [id number] 1970 Unknown [id number] 1971 Unknown [id number] 1971 Unknown [id number] 1971 Unknown [id number] 1971 Unknown [id number] 1958 Self-pay [id number] 1958 Unknown [id number] Unknown Johanna BC/BS [id number] Unknown [id number] Unknown [id number] Unknown [id number] Social History Date Type Detail [facility] Work Phone: Start: 1970 Sex Assigned At Male F [facility] Start: 04-25-2024 Tobacco smoking status Never s moked tobacco (finding) [facility] Tobacco smoking status Smokeless tobacco user within last 30 days [facility] Sex Assigned At Male [facility] Functional Status Date Assessment Result Facility 04-25-2024 Functional Status N/A [facility] [place] Clinical Note 04-25-2024 Note Date & Type Note Facility 04-25-2024 Note General Surgery Offi ce/Clinic Note Chief Complaint consultation for anemia HPI Staff 54 year old male presents on consultation from Dr. Esteves and Dr. Pratt for anemia. Original referral received July 2023. Patient was hospitalized at time of referral and never followed through after discharge. Patient has subsequently been following with hematology. IV iron infusion received last week. Patient with history of alcohol abuse and current taking Protonix and Carafate. Last colonoscopy completed 05/2018 with hyperplastic polyps. History of Present Illness 54 yo male with h/o htn, hyperlipidemia, h/o Etoh abuse, SHERIE, referred for EGD due to iron deficiency anemia; hospitalized in July for pancytopenia; had Hematology revaluation, receiving iron infusions; patient had positive fecal occult blood test; no previous EGD, last colonoscopy 2018 with removal of small sigmoid and rectal hyperplastic polyps; Reports several month history of centralized abdominal pain that varies from dull ache, to sharp and stabbing to burring. Denies nausea or vomiting. Denies rectal pain, bleeding or change in bowel habits. Denies unexplained weight loss; no dysphagia or GERD, no melena; no asa or NSAID use; chews tobacco; no fmhx of GI malignancy or IBD. Review of Systems PHQ Score Initial Depression Screen Score: 0 SCORE ROS - Provider Constitutional: no fever, no sweats, no weight loss. Eyes: no glasses, no blurred vision, no visual loss. ENMT: no dentures, no hoarseness, no swallowing difficulties, no hearing loss, no ear infection(s), no nose bleeds. Cardiovascular: normal blood pressure, no chest pain, regular heartbeat, no heart murmur. Respiratory: no shortness of breath, no cough, no asthma, no wheezing. Gastrointestinal: no nausea, no vomiting, no diarrhea, no constipation, no blood in stool, no change in bowel habits, yes abdominal pain, no hepatitis. Genitourinary: no kidney stones, no urine infection, no dysuria. Musculoskeletal: no pain, no weakness. Skin: no changing moles, no rash, no skin lumps. Neurologic: no seizures, no epilepsy, no headache. Psychiatric: no emotional or psychiatric problem. Heme/Lymph: no bleeding problems, no anemia, no blood clots, no transfusions. Allergy/Immunologic: no swollen lymph nodes/glands, no IV drug abuse. Other: Additional ROS info: Except as noted in the above Review of Systems and in the History of Present Illness, all other systems have been reviewed and are negative or noncontributory. Physical Exam Vitals & Measurements HR: 68(Peripheral) RR: 16 BP: 138/80 HT: 70 in HT: 177.8 cm WT: 125 kg WT: 275.578 lb BMI: 39.54 HEENT: normal conjunctiva, sclera clear, no scleral icterus, EOM intact, PERRLA, oral mucosa moist without lesions. Neck: trachea midline, no mass, symmetric, no thyromegaly or nodules, no adenopathy Respiratory: lungs CTA, respirations non labored. Cardiovascular: regular rate and rhythm, no murmur, no pedal edema or varicosities. Gastrointestinal: obese, soft, non distended, no tenderness, no masses, no palpable hernias, diastasis recti no, no hepatosplenomegaly; normal bs Lymphatic: no cervical adenopathy, no supraclavicular adenopathy. Musculoskeletal: normal gait, digits and nails without infection, nodes, cyanosis, clubbing. Skin: no rashes, no lesions, no ulcers, no subcutaneous nodules, induration. Psychiatric/Neuro: oriented to time, place, person, judgement normal, affect appropriate for age, insight intact, no focal deficits. Tests: labs reviewed, x-rays reviewed, review of old records completed , Discussed surgical options, risks, and possible complications with patient. Assessment/Plan 1. Epigastric pain (R10.13: Epigastric pain) plan EGD and colonoscopy under anesthesia for further evaluation, informed consent obtained. 2. Periumbilical abdominal pain (R10.33: Periumbilical pain) see # 1 3. Positive occult stool blood test (R19.5: Other fecal abnormalities) see # 1 4. Iron deficiency anemia (D50.9: Iron deficiency anemia, unspecified) see # 1 Follow-up No qualifying data available Problem List/Past Medical History Ongoing Anemia BMI 39.0-39.9,adult Epigastric pain Essential hypertension Fatty liver History of alcohol abuse Hyperlipidemia Intestinal malabsorption Iron deficiency anemia Morbid obesity Other pancytopenia Periumbilical abdominal pain Positive occult stool blood test Sleep apnea Historical No qualifying data Procedure/Surgical History Colonoscopy (06/03/2018), Arthroplasty of left hip, Arthroplasty of right hip. Medications Carafate 1 gram Tab, 1 gm= 1 tab(s), Oral, QIDACHS Edarbi, 80 mg, Oral, Daily Protonix 40 mg Tab-DR, 40 mg= 1 tab(s), Oral, Daily Allergies No Known Allergies No Known Medication Allergies Social History Alcohol Past. Beer. Daily., 04/23/2024 Substance Abuse Never., 04/23/2024 Tobacco Never (less than 100 in lifetime), Chewing Tabacco Tobacco Use:. Smokele (more content not included)... [facility] Comment on above: Result Comment: Elec tronically Signed By: FLORIDALMA PATEL, Geoffrey Galeana\elizabeth\Date and Time Signed: 04/25/24 10:59 EST Evaluation + Plan note Note Date & Type Note Facility Evaluation + Plan note No data available for this section [facility] [place] Evaluation note Note Date & Type Note Facility Evaluation note No assessment information availa [facility] Work Phone: Hospital Discharge instructions Note Date & Type Note Facility Hospital Discharge instructions No data available for this section [facility] [place] Progress note Note Date & Type Note Facility Progress note No data available for this section [facility] [place] Summary Purpose Family History No Family History Records Found No data available for this section No Family History Records FoundNo Family History Records Found Advance Directives No Advanced Directives Records Found Advance Directive Response Recorded Date/ Time Advance Directives No September 13 12:27pm Additional Source Comments (unrecognized sect ion and content) No Status Records FoundNo Status Records FoundNo Status Records Found INFORMATION SOURCE (unrecogn ized section and content) DATE CREATED AUTHOR 07/18/2022 [facility] DATE CREATED AUTHOR AUTHOR'S ORGANIZ ATION 04/27/2024 [facility] DATE CREATED AUTHOR AUTHOR'S ORGANIZ ATION 05/13/2024 [facility] Care Teams (unrecognized sec tion and content) Team Status: Inactive Member Role Status Dates Gen Pratt MD Attending Provider Active Sta rt: August 02, 2023 End: August 02, 2023 Team Status: Inactive Member Role Status Dates Franklin Esteves MD Attending Provider Active St art: September 13, 2023 End: September 13, 2023 Goals (unrecognized section and content) Goals may be documented in a n alternate section No data available for this section FOR RECORDS PERTAINING TO PATIENTS WHO [...] BE BASED ON THE PRIMARY CLINICAL RECORDS. [facility] [employer] [facility]. provides no warranty or guarantee of the accuracy or completeness of information in this document.
--- NOTE | 2024-05-15 10:59 | XR_ITS ---
The [address] [address] Patient Name: PIPER RODRÍGUEZ MRN: [id number] date: 1970 Sex: M Assigned Patient Location: ER Current Patient Location: ER Accession/Order Number: [id number] Exam Date: 05/15/2024 11:17 Report Date: 05/15/2024 12:04 At the request of: SANTOS CASAS Procedure: XR acute abdomen series EXAMINATION: XR acute abdomen series HISTORY: Free air COMPARISON: No relevant comparison available. FINDINGS: LUNGS: No infiltrate, pneumothorax, or pleural effusion. MEDIASTINUM: No abnormal widening. BOWEL GAS PATTERN: Non-obstructed. Large amount of stool in the cecum which measures 10.7 cm transversely FREE AIR: None. CALCIFICATIONS: None significant. BONES: No fracture or visible bone lesion. Bilateral hip arthroplasty OTHER: Negative. XR/XR acute abdomen series IMPRESSION: Clear lungs Large amount of stool in the cecum Electronically authenticated by: HILDA SONG Date: 05/15/2024 12:04
[2024-05-15 11:02] LABS: Basophils Absolute Auto 0.1 10^3/uL (0.0-0.1); Basophils Percent Auto 0.5 % (0.2-2.0); Eosinophils Absolute Auto 0.1 10^3/uL (0.0-0.7); Eosinophils Percent Auto 0.8 % (0.9-7.0); Hematocrit 44.3 % (42.0-54.0); Hemoglobin 14.5 g/dL (14.0-18.0); Immature Granulocytes Abs Auto 0.02 10^3/uL (0.00-0.03); Immature Granulocytes Pct Auto 0.2 % (0.0-0.5); Lymphocytes Absolute Auto 1.1 10^3/uL (1.2-3.8); Lymphocytes Percent Auto 11.6 % (20.5-60.0); Mean Corpuscular HGB Conc 32.7 g/dL (29.9-35.2); Mean Corpuscular Hemoglobin 30.1 pg (25.9-34.0); Mean Corpuscular Volume 92.1 fL (80.0-94.0); Mean Platelet Volume 10.6 fL (9.5-13.5); Monocytes Absolute Auto 0.9 10^3/uL (0.3-0.8); Neutrophils Absolute Auto 7.5 10^3/uL (1.4-6.5); Neutrophils Percent Auto 77.9 % (43.0-75.0); Platelet Count 177 10^3/uL (150-450); Red Blood Count 4.81 10^6/uL (4.70-6.10); White Blood Count 9.6 10^3/uL (4.0-11.0)
[2024-05-15 11:17] LABS: Alanine Aminotransferase 91 U/L (16-63); Albumin Globulin Ratio 0.8; Albumin Level 3.4 g/dL (3.4-5.0); Alkaline Phosphatase 77 U/L (46-116); Aspartate Amino Transferase 48 U/L (15-37); BUN Creatinine Ratio 6.9; Bilirubin Total 0.6 mg/dL (0.2-1.0); Calcium 8.8 mg/dL (8.5-10.1); Carbon Dioxide 28.6 mmol/L (21.0-32.0); Chloride 102 mmol/L (98-107); Estimated GFR (African America >60 (>=60 mL/min/1.73m^2); Estimated GFR (Non-African Ame >60 (>=60 mL/min/1.73m^2); Globulin 4.3 g/dL; Glucose 130 mg/dL (74-106); Potassium 4.6 mmol/L (3.5-5.1); Sodium 136 mmol/L (136-145); Total Protein 7.7 g/dL (6.4-8.2)
--- NOTE | 2024-05-15 13:55 | ED_ITS ---
HPI HPI - General Adult General Chief complaint: Abdominal Pain Stated complaint: ABDOMINAL PAIN Time Seen by Provider: 05/15/24 10:59 Source: patient Mode of arrival: walk-in Limitations: no limitations History of Present Illness HPI narrative: Patient is a 54-year-old male who is presenting to the ER today with chief complaint of right lower quadrant discomfort. Patient just had a colonoscopy done by Dr. Edmond on May 10, last Wednesday. Patient has had no nausea or vomiting. 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 Patient states he has had no changes acutely with his bowel habits. Patient said he did get cleaned out with his bowel prep for the colonoscopy. Patient has no chest pain or shortness of breath. Patient has no fever or chills. at bedside. Patient has no other acute complaints. Patient does feel some distention to the right lower quadrant. No peritoneal signs. All systems are negative except as noted/marked. All systems reviewed and otherwise negative. Nurses note and vital signs reviewed and patient is not hypoxic. General: The patient appears well and in no apparent distress. Patient is resting comfortably on cart. Patient is not toxic, lethargic, or listless Skin: Warm, dry, no pallor noted. There is no rash noted. No petechiae, purpura. Head: Normocephalic, atraumatic Eye: Normal conjunctiva, no drainage, EOMI. PERRL Ears, Nose, Mouth, and Throat: oral mucosa is moist. Nares patent. Mouth without vesicles. Cardiovascular: Regular Rate and Rhythm, no murmur, gallop, rub Respiratory: Patient is in no distress, no accessory muscle use, lungs are clear to auscultation, no wheezing, rales or rhonchi Back: non-tender, no CVA tenderness bilaterally to percussion. No CT LS midline pain GI: Obese, mild to moderate tenderness palpation of right lower quadrant, no rigidity, no tympany, no flank pain bilateral, no peritoneal signs. Slightly hypoactive bowel sounds x 4, patient states he has mild distention, no fluid wave, no edema, no midepigastric tenderness to palpation, no masses appreciated. Patient does have some fullness and firmness noted to the right lower quadrant, no rebound, guarding, or rigidity noted. No distention Musculoskeletal: Patient has full range of motion of all of the extremities, no motor, sensory, or focal neurological deficits Neurological: A&O x4, normal speech Psychiatric: Cooperative Related Data Home Medications ?Medication ?Instructions ?Recorded ?Confirmed azilsartan medoxomil 80 mg tablet 80 mg PO DAILY 07/27/23 05/15/24 (Edarbi) pantoprazole 40 mg tablet,delayed 40 mg PO BID 08/02/23 05/15/24 release sucralfate 1 gram tablet (Carafate) 1 g PO Q6H 05/04/24 05/15/24 Previous Rx's ?Medication ?Instructions ?Recorded dicyclomine 20 mg tablet 20 mg PO TID PRN abdominal pain #7 05/15/24 tabs ondansetron 4 mg disintegrating 4 mg PO Q4H PRN nausea and 05/15/24 tablet vomiting 3 days #6 tabs Allergies Allergy/AdvReac Type Severity Reaction Status Date / Time No Known Drug Allergies Allergy Verified 05/04/24 13:05 Opioid HPI Opioid Management Most Recent Opioid Data: Last Pain Scale 3 05/10/24 09:15 05/10/24 Last Pain Assessment 05/10/24 11:07 Last ORT Total Score 3 08/02/23 12:20 08/02/23 Last ORT Risk Category Low Risk 08/02/23 12:20 08/02/23 [facility] Medical History (Updated 05/15/24 @ 12:21 by Franki Chau MD) Seasonal allergies ?J30.2 - Other seasonal allergic rhinitis (ICD-10) Hyponatremia ?E87.1 - Hypo-osmolality and hyponatremia (ICD-10) Atypical chest pain ?R07.89 - Other chest pain (ICD-10) Sleep apnea ?G47.30 - Sleep apnea, unspecified (ICD-10) Pancytopenia ?D61.818 - Other pancytopenia (ICD-10) Periumbilical abdominal pain ?R10.33 - Periumbilical pain (ICD-10) Intestinal malabsorption ?K90.9 - Intestinal malabsorption, unspecified (ICD-10) Neutropenic fever ?D70.9 - Neutropenia, unspecified (ICD-10) ?R50.81 - Fever presenting with conditions classified elsewhere (ICD-10) Hyperlipemia ?E78.5 - Hyperlipidemia, unspecified (ICD-10) Hypertension ?I10 - Essential (primary) hypertension (ICD-10) Surgical History Hx of colonoscopy ?Z98.890 - Other specified postprocedural states (ICD-10) History of hip replacement ?Z96.649 - Presence of unspecified artificial hip joint (ICD-10) Family History (Updated 05/04/24 @ 13:25 by Sabiha Marie) Grandmother Family history of stroke Mother Anal cancer Other Family history of bone cancer Family history of prostate cancer Social History (Updated 05/10/24 @ 09:23 by Kinga Bill RN) Within the past year, how often did you have a drink containing alcohol: monthly or less Within the past year, how many standard drinks containing alcohol did you have on a typical day: 1 or 2 Within the past year, how often did you have six or more drinks on one occasion: never Total score: 0 Score interpretation: A score less than 4 is consistent with normal alcohol consumption. 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 Known occupational exposures/hazards: No Highest level of school completed/degree received: high school graduate Are you now , , , , never or living with a partner: In a typical week, how many times do you talk on the telephone with family, friends, or neighbors: 3 or more times per week How often do you get together with friends or relatives: 3 or more times per week How often do you attend restoration or congregation services: never Do you belong to any clubs or organizations such as restoration groups unions, fraternal or athletic groups, or school groups: no Total score: 2 Score interpretation: A score of greater than or equal to 2 indicates the lowest level of social isolation. Little interest or pleasure in doing things: not at all Feeling down, depressed, or hopeless: not at all Feel stressed/tense/nervous/anxious/difficulty sleeping: not at all Due to disability, difficulty making decisions: No Do you think of yourself as: straight/heterosexual Gender Identity: male Exam Constitutional Vital Signs, click to edit/add: Last Vital Signs Temp 98.4 F 05/15/24 10:26 Pulse 86 05/15/24 10:26 Resp 18 05/15/24 10:26 BP 151/98 H 05/15/24 10:26 Pulse Ox 98 05/15/24 10:26 O2 Del Method Room Air 05/15/24 10:26 Course Vital Signs Vital signs: Vital Signs Temperature 98.4 F 05/15/24 10:26 Pulse Rate 86 05/15/24 10:26 Respiratory Rate 18 05/15/24 10:26 Blood Pressure 151/98 H 05/15/24 10:26 Pulse Oximetry 98 05/15/24 10:26 Oxygen Delivery Method Room Air 05/15/24 10:26 Temperature 98.4 F 05/15/24 10:26 Pulse Rate 86 05/15/24 10:26 Respiratory Rate 18 05/15/24 10:26 Blood Pressure 151/98 H 05/15/24 10:26 Pulse Oximetry 98 05/15/24 10:26 Oxygen Delivery Method Room Air 05/15/24 10:26 Medical Decision Making MDM Narrative Medical decision making narrative: Patient's x-ray was discussed with Dr. Song, radiologist. Patient has a large stool burden to the right cecum, no free air, no air-fluid levels, possible small postop ileus. Patient was educated on using MiraLAX a few times a day along with bottles of magnesium citrate to help clear the large amount of stool to right lower quadrant. I did take a picture of the stool burden and show the patient and his . Patient had very clear instructions written on his discharge papers. Patient will follow-up with PCP and will continue to follow-up with oncologist, clinic at scheduled appointment. No question at discharge. Medical Records Medical records reviewed: Yes I reviewed the patient's medical records Lab Data Labs: Lab Results 05/15/24 Range/Units 10:45 WBC 9.6 (4.0-11.0) 10^3/uL RBC 4.81 (4.70-6.10) 10^6/uL Hgb 14.5 (14.0-18.0) g/dL Hct 44.3 (42.0-54.0) % MCV 92.1 (80.0-94.0) fL MCH 30.1 (25.9-34.0) pg MCHC 32.7 (29.9-35.2) g/dL RDW 17.0 H (11.0-15.0) % Plt Count 177 (150-450) 10^3/uL MPV 10.6 (9.5-13.5) fL Neut % (Auto) 77.9 H (43.0-75.0) % Lymph % (Auto) 11.6 L (20.5-60.0) % Milam % (Auto) 9.0 (1.7-12.0) % Eos % (Auto) 0.8 L (0.9-7.0) % Baso % (Auto) 0.5 (0.2-2.0) % Neut # (Auto) 7.5 H (1.4-6.5) 10^3/uL Lymph # (Auto) 1.1 L (1.2-3.8) 10^3/uL Milam # (Auto) 0.9 H (0.3-0.8) 10^3/uL Eos # (Auto) 0.1 (0.0-0.7) 10^3/uL Baso # (Auto) 0.1 (0.0-0.1) 10^3/uL Abs Immat Gran (auto) 0.02 (0.00-0.03) 10^3/uL Imm/Tot Granulo (auto) 0.2 (0.0-0.5) % Sodium 136 (136-145) mmol/L Potassium 4.6 (3.5-5.1) mmol/L Chloride 102 (98-107) mmol/L Carbon Dioxide 28.6 (21.0-32.0) mmol/L Anion Gap 10.0 BUN 7.0 (7.0-18.0) mg/dL Creatinine 1.01 (0.70-1.30) mg/dL Est GFR ( Amer) >60 (>=60 mL/min/1.73m^2) Est GFR (Non-Af Amer) >60 (>=60 mL/min/1.73m^2) BUN/Creatinine Ratio 6.9 Glucose 130 H (74-106) mg/dL Calcium 8.8 (8.5-10.1) mg/dL Total Bilirubin 0.6 (0.2-1.0) mg/dL AST 48 H (15-37) U/L ALT 91 H (16-63) U/L Alkaline Phosphatase 77 (46-116) U/L Total Protein 7.7 (6.4-8.2) g/dL Albumin 3.4 (3.4-5.0) g/dL Globulin 4.3 g/dL Albumin/Globulin Ratio 0.8 Lipase 51.0 (16.0-77.0) U/L Imaging Data CT scan - pelvis: Radiologist's impression: ITS Impressions Chest/Abdomen X-ray 05/15/24 10:59 IMPRESSION: Clear lungs Large amount of stool in the cecum Electronically authenticated by: HILDA SONG Date: 05/15/2024 12:04 Discharge Plan Discharge Chief Complaint: Abdominal Pain Clinical Impression: Abdominal pain, Constipation Patient Disposition: Home, Self-Care Time of Disposition Decision: 12:21 Condition: Fair Prescriptions / Home Meds: New dicyclomine 20 mg tablet 20 mg PO TID PRN (Reason: abdominal pain) Qty: 7 0RF ondansetron 4 mg tablet,disintegrating 4 mg PO Q4H PRN (Reason: nausea and vomiting) 3 Days Qty: 6 0RF No Action Edarbi 80 mg tablet 80 mg PO DAILY sucralfate [Carafate] 1 gram tablet 1 g PO Q6H pantoprazole 40 mg tablet,delayed release (DR/EC) 40 mg PO BID Print Language: New Zealander Instructions: Constipation (ED), Abdominal Pain (ED) Additional Instructions: Increase fluids, water, Gatorade, Powerade. Also apple juice or prune juice. Use Zofran and Bentyl as needed for nausea or abdominal cramping. Alternate Tylenol and either Motrin, Advil, or ibuprofen every 4 hours to help with pain. Maximum dose of Tylenol is 3000 mg a day. Maximum dose of either Motrin, Advil, or ibuprofen is 2400 mg a day. A picture of the large stool in your right side of your large intestine was shown to in a copy of your x-ray report was given to you as well. If you have any loose or diarrhea, do not stop using medication to help remove that stool. Use MiraLAX twice a day today and for the next couple days, use 1 or 2 bottles of magnesium citrate today and tomorrow if needed. Referrals: Delta Pratt MD [Primary Care Provider] - 1 week Discharge Date/Time: 05/15/24 12:31
== END 2024-05-15 12:31 | disposition home or self-care (01) ==
PROVIDERS: Emergency Provider Emergency Medicine; PCP Family Medicine
DX: K59.00 Constipation, unspecified (principal); R10.31 Right lower quadrant pain; Z98.890 Other specified postprocedural states; F17.290 Nicotine dependence, other tobacco product, uncomplicated
CPT/HCPCS: 36415; 74022; 80053; 83690; 85025; 99284

== ENCOUNTER 2024-05-30 13:27 | Outpatient (OUT) | payer OTHER, SELFPAY ==
[2024-05-30 13:52] LABS: Basophils Absolute Auto 0.1 10^3/uL (0.0-0.1); Eosinophils Absolute Auto 0.4 10^3/uL (0.0-0.7); Eosinophils Percent Auto 5.5 % (0.9-7.0); Hematocrit 47.2 % (42.0-54.0); Hemoglobin 15.4 g/dL (14.0-18.0); Immature Granulocytes Abs Auto 0.02 10^3/uL (0.00-0.03); Immature Granulocytes Pct Auto 0.3 % (0.0-0.5); Lymphocytes Absolute Auto 1.8 10^3/uL (1.2-3.8); Lymphocytes Percent Auto 25.9 % (20.5-60.0); Mean Corpuscular HGB Conc 32.6 g/dL (29.9-35.2); Mean Corpuscular Hemoglobin 30.7 pg (25.9-34.0); Mean Platelet Volume 10.5 fL (9.5-13.5); Monocytes Absolute Auto 0.8 10^3/uL (0.3-0.8); Monocytes Percent Auto 11.7 % (1.7-12.0); Neutrophils Absolute Auto 3.9 10^3/uL (1.4-6.5); Neutrophils Percent Auto 55.6 % (43.0-75.0); Platelet Count 176 10^3/uL (150-450); Red Blood Count 5.02 10^6/uL (4.70-6.10); Red Cell Distribution Width 16.4 % (11.0-15.0)
[2024-05-30 14:22] LABS: Anion Gap 11.3; BUN Creatinine Ratio 11.9; Carbon Dioxide 31.2 mmol/L (21.0-32.0); Chloride 101 mmol/L (98-107); Estimated GFR (African America >60 (>=60 mL/min/1.73m^2); Estimated GFR (Non-African Ame >60 (>=60 mL/min/1.73m^2); Glucose 105 mg/dL (74-106); Potassium 4.5 mmol/L (3.5-5.1); Sodium 139 mmol/L (136-145)
[2024-05-30 14:25] LABS: Percent Iron Saturation 15.9 %
== END 2024-05-30 13:28 | disposition home or self-care (01) ==
LOC: LAB 13:28
PROVIDERS: PCP Family Medicine; Visit Provider Internal Medicine Hematology & Oncology
DX: D64.9 Anemia, unspecified (principal); D61.818 Other pancytopenia; D50.9 Iron deficiency anemia, unspecified; K90.9 Intestinal malabsorption, unspecified; D72.819 Decreased white blood cell count, unspecified
CPT/HCPCS: 36415; 80048; 82728; 83540; 83550; 85025

== ENCOUNTER 2024-06-20 07:38 | Outpatient (RCR) | payer OTHER, SELFPAY | END 2024-06-21 11:11 | disposition home or self-care (01) | LOC: HEMC 07:38 | PROVIDERS: PCP Family Medicine; Visit Provider Internal Medicine Hematology & Oncology | DX: C18.0 Malignant neoplasm of cecum (principal); D61.818 Other pancytopenia; D50.9 Iron deficiency anemia, unspecified; K90.9 Intestinal malabsorption, unspecified; D72.819 Decreased white blood cell count, unspecified; R11.2 Nausea with vomiting, unspecified; I10 Essential (primary) hypertension; Z96.643 Presence of artificial hip joint, bilateral; C77.9 Secondary and unspecified malignant neoplasm of lymph node, unspecified | CPT/HCPCS: G0463 ==

== ENCOUNTER 2024-06-20 14:51 | Emergency (ER) | payer OTHER, SELFPAY ==
[2024-06-20 15:07] VITALS: BP 133/74; PULSE 70; TEMP 37.1; O2SAT 97; BMI 37.3
--- NOTE | 2024-06-20 15:25 | ED_ITS ---
HPI - Wound/Laceration General Chief Complaint: Wound/Laceration Stated Complaint: post surgical issue w/ inciscion Time Seen by Provider: 06/20/24 15:04 Source: patient Mode of arrival: walk-in Limitations: no limitations History of Present Illness HPI narrative: 54-year-old male presents for an issue with his surgical wound. Last week he had left hemicolectomy and was doing well. Today his wound opened up and he was concerned. No purulent drainage or fever. This happened within the last hour or 2. Related Data Home Medications ?Medication ?Instructions ?Recorded ?Confirmed azilsartan medoxomil 80 mg tablet 80 mg PO DAILY 07/27/23 05/15/24 (Edarbi) pantoprazole 40 mg tablet,delayed 40 mg PO BID 08/02/23 05/15/24 release sucralfate 1 gram tablet (Carafate) 1 g PO Q6H 05/04/24 05/15/24 Previous Rx's ?Medication ?Instructions ?Recorded dicyclomine 20 mg tablet 20 mg PO TID PRN abdominal pain #7 05/15/24 tabs ondansetron 4 mg disintegrating 4 mg PO Q4H PRN nausea and 05/15/24 tablet vomiting 3 days #6 tabs Allergies Allergy/AdvReac Type Severity Reaction Status Date / Time No Known Drug Allergies Allergy Verified 06/20/24 15:07 Review of Systems ROS Narrative A ten point review of systems is negative except as noted above. [facility] Medical History (Updated 06/20/24 @ 15:49 by Srinath Nayak MD) Seasonal allergies ?J30.2 - Other seasonal allergic rhinitis (ICD-10) Hyponatremia ?E87.1 - Hypo-osmolality and hyponatremia (ICD-10) Atypical chest pain ?R07.89 - Other chest pain (ICD-10) Sleep apnea ?G47.30 - Sleep apnea, unspecified (ICD-10) Pancytopenia ?D61.818 - Other pancytopenia (ICD-10) Periumbilical abdominal pain ?R10.33 - Periumbilical pain (ICD-10) Intestinal malabsorption ?K90.9 - Intestinal malabsorption, unspecified (ICD-10) Neutropenic fever ?D70.9 - Neutropenia, unspecified (ICD-10) ?R50.81 - Fever presenting with conditions classified elsewhere (ICD-10) Hyperlipemia ?E78.5 - Hyperlipidemia, unspecified (ICD-10) Hypertension ?I10 - Essential (primary) hypertension (ICD-10) Surgical History Hx of colonoscopy ?Z98.890 - Other specified postprocedural states (ICD-10) History of hip replacement ?Z96.649 - Presence of unspecified artificial hip joint (ICD-10) Family History (Updated 05/04/24 @ 13:25 by Sabiha Marie) Grandmother Family history of stroke Mother Anal cancer Other Family history of bone cancer Family history of prostate cancer Social History (Updated 05/10/24 @ 09:23 by Kinga Bill RN) Within the past year, how often did you have a drink containing alcohol: monthly or less Within the past year, how many standard drinks containing alcohol did you have on a typical day: 1 or 2 Within the past year, how often did you have six or more drinks on one occasion: never Total score: 0 Score interpretation: A score less than 4 is consistent with normal alcohol consumption. 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 Known occupational exposures/hazards: No Highest level of school completed/degree received: high school graduate Are you now , , , , never or living with a partner: In a typical week, how many times do you talk on the telephone with family, friends, or neighbors: 3 or more times per week How often do you get together with friends or relatives: 3 or more times per week How often do you attend oriental orthodox or jainism services: never Do you belong to any clubs or organizations such as oriental orthodox groups unions, fraternal or athletic groups, or school groups: no Total score: 2 Score interpretation: A score of greater than or equal to 2 indicates the lowest level of social isolation. Little interest or pleasure in doing things: not at all Feeling down, depressed, or hopeless: not at all Feel stressed/tense/nervous/anxious/difficulty sleeping: not at all Due to disability, difficulty making decisions: No Do you think of yourself as: straight/heterosexual Gender Identity: male Exam Narrative Exam Narrative: Nurses note and vital signs reviewed and patient is not hypoxic. General: The patient appears well and in no apparent distress. Patient is resting comfortably on cart. Skin: Warm, dry, no pallor noted. There is no rash noted. Head: Normocephalic, atraumatic Eye: Normal conjunctiva, no drainage Ears, Nose, Mouth, and Throat: oral mucosa is moist. Nares patent. Cardiovascular: Regular Rate and Rhythm Respiratory: Patient is in no distress, no accessory muscle use, lungs are shilo r to auscultation, no wheezing, rales or rhonchi Back: non-tender GI: Surgical wound has dehisced. The length of the dehiscence is 4 cm and it is open by 3 cm. There is adipose tissue visible. There is no purulent drainage or surrounding erythema. The rest of his abdomen is nontender Musculoskeletal: The patient has no evidence of calf tenderness, no pitting edema, symmetrical pulses noted bilaterally Neurological: A&O, normal speech Psychiatric: Cooperative Constitutional Vital Signs, click to edit/add: Last Vital Signs Temp 98.8 F 06/20/24 15:07 Pulse 70 06/20/24 15:07 Resp 20 06/20/24 15:07 BP 133/74 06/20/24 15:07 Pulse Ox 97 06/20/24 15:07 O2 Del Method Room Air 06/20/24 15:07 Course Vital Signs Vital signs: Vital Signs Temperature 98.8 F 06/20/24 15:07 Pulse Rate 70 06/20/24 15:07 Respiratory Rate 20 06/20/24 15:07 Blood Pressure 133/74 06/20/24 15:07 Pulse Oximetry 97 06/20/24 15:07 Oxygen Delivery Method Room Air 06/20/24 15:07 Temperature 98.8 F 06/20/24 15:07 Pulse Rate 70 06/20/24 15:07 Respiratory Rate 20 06/20/24 15:07 Blood Pressure 133/74 06/20/24 15:07 Pulse Oximetry 97 06/20/24 15:07 Oxygen Delivery Method Room Air 06/20/24 15:07 MDM - Wound/Laceration MDM Narrative Medical decision making narrative: The patient has surgical wound dehiscence. I have spoken to Dr. Carias, the patient's surgeon and follow-up is arranged. She recommends wet-to-dry dressing changes at least until she sees him in the office. I have no clinical suspicion of an infection. Treatment diagnosis and follow-up were discussed with the patient Differential Diagnosis Differential diagnosis: Likely other (Surgical wound dehiscence) Discharge Plan Discharge Chief Complaint: Wound/Laceration Clinical Impression: Dehiscence of surgical wound Patient Disposition: Home, Self-Care Time of Disposition Decision: 15:49 Condition: Good Mode of Transportation: Private Vehicle Prescriptions / Home Meds: No Action Edarbi 80 mg tablet 80 mg PO DAILY sucralfate [Carafate] 1 gram tablet 1 g PO Q6H pantoprazole 40 mg tablet,delayed release (DR/EC) 40 mg PO BID dicyclomine 20 mg tablet 20 mg PO TID PRN (Reason: abdominal pain) Qty: 7 0RF ondansetron 4 mg tablet,disintegrating 4 mg PO Q4H PRN (Reason: nausea and vomiting) 3 Days Qty: 6 0RF Print Language: Citizen Of [place] Instructions: Wound Dehiscence (ED) Additional Instructions: Dr Carias's office will call you to arrange a follow-up appointment for this week. Referrals: Delta Pratt MD [Primary Care Provider] - 1 week
--- OUTSIDE RECORDS SUMMARY | 2024-06-20 16:12 | XMS_ITS | CCD ---
Author Organization [facility]iniSyn[facility] Care Team Providers Care Silo Man Name Role Phone CASEY ., DR BLEVINS Admitting Unavailable HOY ., [...] Unavailable MD Gen Pratt Attending Provider MD Kisha Esteves Attending Provider Gen Pratt Primary Care Physician DR. KISHA ESTEVES Referring Unavailable Jone EDMOND Attending Unavailable Jone EDMOND Attending Unavailable Gen Pratt Attending Unavailable Gen Pratt M Admitting Unavailable Kisha Esteves Attending Unavailable Kisha Esteves Admitting Unavailable Floridalma, Jone Galeana Admitting Unavailable Jone Edmond Attending Unavailable Gen Pratt MD Primary Care Provider [phone] Jone Edmond MD Unavailable DONIS CARIAS Referring Unavailable HOY, GEN M Primary Care Unavailable DONIS CARIAS Referring Unavailable HOY, GEN M Primary Care Unavailable KATY CARIASARAPATRICIA Referring Unavailable HOY, GEN M Primary Care Unavailable KATY CARIASARAPATRICIA Admitting Unavailable DONIS CARIAS Attending Unavailable HOY, GEN M Primary Care Unavailable DONIS CARIAS Attending Unavailable JONE EDMOND Referring Unavailable GEN PRATT Primary Care Unavailable DONIS CARIAS Referring Unavailable GEN PRATT Primary Care Unavailable Allergies Allergy Classification Reported Allergen(s) Allergy Type Date of Onset Reaction(s) Facility (1 source) No Known Medication Allergies; Translations: [No Known Medication Allergies] Propensity to adverse reactions (disorder) [facility] Repository Medications Current Medications Medication Drug Class(es) Dates Sig (Normalized) Sig (Original) acetaminophen 500 mg oral tablet (1 source) Start: 06-16-2024 take 2 tablets by mouth every six hours acetaminophen (TYLENOL) 500 mg tablet Take 2 tablets by mouth every 6 hours. 50 tablet 06/16/2024 Active azilsartan medoxomil 80 mg oral tablet (8 sources) Angiotensin 2 Receptor Connie Start: 06-03-2018 EDARBI 80 mg tab 05/25/2019 Active 0.4 ml enoxaparin sodium 100 mg/ml prefilled syringe (1 source) Low Molecular Weight Heparin Start: 06-16-2024 End: 07-07-2024 inject 40 mg by subcutaneous injection every twenty-four hours enoxaparin (LOVENOX) 40 mg/0.4 mL Inject 0.4 mL subcutaneously every 24 hours for 21 days. 8.4 mL 06/16/2024 07/07/2024 Active enteric contrast (will be provided with radiology test) (7 sources) Start: 05-25-2024 enteric contrast (will be provided with radiology test) Indications: Malignant neoplasm of ascending colon (HCC) For CT CHESTABD/PEL W IVCON Routine order Administer, As Directed One Time Only, via Oral, Rectal, both Oral and Rectal, Enteric Tube, Stoma or Indwelling Catheter, Enteric Contrast as designated per enteric contrast guidelines 1 Each 05/25/2024 Active iv contrast (will be provided with radiology test) (7 sources) Start: 05-25-2024 iv contrast (will be provided with radiology test) Indications: Malignant neoplasm of ascending colon (HCC) CT Chest ABD/PEL-Inject, intravenously, once for 1 dose.No IV access, insert saline lock prior to the beginning of sedation, infusion, injection of imaging exam. Discontinue saline lock post exam. If Pt. has a central line or IVAD, may access for administration according to line specific nursing protocol. Once exam is complete flush line and de-access according to line specific nursing protocol in the CT contrast administration guidelines link. 1 Each 05/25/2024 Active lactobacillus rhamnosus gg [id number] unt oral capsule (1 source) Start: 06-16-2024 End: 07-16-2024 take 1 capsule by mouth once daily lactobacillus rhamnosus (CULTURELLE) 10 billion cell capsule Take 1 capsule by mouth once daily. 30 capsule 06/16/2024 07/16/2024 Active metroNIDAZOLE 500 mg oral tablet (6 sources) Nitroimidazole Antimicrobial Start: 05-25-2024 metroNIDAZOLE (FLAGYL) 500 mg tablet Indications: Malignant neoplasm of ascending colon (HCC) Take 1 tablet by mouth as directed. Take one tab at 6:00 p.m., another at 7:00 p.m. and the last one at 11:00 p.m., prior to surgery 3 tablet 05/25/2024 Active neomycin sulfate 500 mg oral tablet (6 sources) Aminoglycoside Antibacterial Start: 05-25-2024 neomycin 500 mg tablet Indications: Malignant neoplasm of ascending colon (HCC) Take 2 tablets by mouth as directed. Take two tabs at 6:00 p.m., 7:00 p.m. and 11:00 p.m., prior to surgery 6 tablet 05/25/2024 Active oxyCODONE hydrochloride 5 mg oral tablet (1 source) Opioid Agonist Start: 06-16-2024 End: 06-23-2024 take 1 tablet by mouth every six hours as needed oxyCODONE IR (ROXICODONE) 5 mg immediate release tablet Indications: Post-op pain Take 1 tablet by mouth every 6 hours as needed for up to 7 days. 25 tablet 06/16/2024 06/23/2024 Active pantoprazole 40 mg delayed release oral tablet [...] source) History of alcohol abuse 04-17-2024 Chronic Cancer of colon (5 sources) Malignant tumor of ascending colon; Translations: [Malignant neoplasm of ascending colon] Onset: 05-25-2024 05-22-2024 Chronic Deficiency and other anemia (1 source) Pancytopenia 04-17-2024 Chronic Deficiency and other anemia (2 sources) Iron deficiency anemia; Translations: [Iron deficiency anemia, unspecified] Onset: 04-25-2024 Episodic Deficiency and other anemia (1 source) Anemia 04-17-2024 Episodic Disorders of lipid metabolism (2 sources) Hyperlipidemia, unspecified; Translations: [Hyperlipidemia] Onset: 02-08-2022 04-17-2024 Chronic Essential hypertension (4 sources) Essential (primary) hypertension; Translations: [Essential hypertension] Onset: 02-08-2022 04-17-2024 Chronic Other gastrointestinal disorders (1 source) Intestinal malabsorption 04-17-2024 Chronic Other gastrointestinal disorders (1 source) Abnormal feces; Translations: [Other fecal abnormalities] Onset: 04-25-2024 Episodic Other gastrointestinal disorders (1 source) Occult blood in stools 04-17-2024 Episodic Other liver diseases (1 source) Steatosis of liver 04-17-2024 Chronic Other nervous system disorders (1 source) Other acute postprocedural pain; Translations: [Post-op pain] Onset: 06-14-2024 Episodic Other nutritional; endocrine; and metabolic disorders (4 sources) Body mass index 30+ - obesity; Translations: [Body mass index (BMI) 38.0-38.9, adult] Onset: 06-08-2024 04-25-2024 Chronic Other nutritional; endocrine; and metabolic disorders (1 source) Morbid obesity 04-17-2024 Chronic Residual codes; unclassified (4 sources) Obstructive sleep apnea (adult) (pediatric); Translations: [OBSTRUCTIVE SLEEP APNEA] Onset: 07-14-2022 Chronic Residual codes; unclassified (1 source) Sleep apnea 04-17-2024 Chronic Residual codes; unclassified (3 sources) Obstructive sleep apnea syndrome; Translations: [Obstructive sleep apnea (adult) (pediatric)] Onset: 06-08-2024 06-08-2024 Chronic Residual codes; unclassified (3 sources) User of smokeless tobacco; Translations: [Tobacco use] Onset: 06-08-2024 06-08-2024 Episodic Substance-related disorders (1 source) Nicotine dependence; Translations: [Nicotine dependence, unspecified, uncomplicated] Onset: 06-16-2024 06-16-2024 Chronic Past or Other Problems Problem Classification Problem Date Documented Da te Episodic/Chronic Malaise and fatigue (1 source) Other fatigue; Translations: [OTHER FATIGUE] Onset: 02-08-2022 Episodic Other aftercare (1 source) 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; Translations: [OTH HUMAN PERFORMANCE PROFESSOR CURRENT DRUG THERAPY] Onset: 02-08-2022 Episodic Other screening for suspected conditions (not mental disorders or infectious disease) (1 source) Encounter for screening for malignant neoplasm of prostate; Translations: [ENC SCREEN MALIG NEOPLASM PROSTATE] Onset: 02-08-2022 Episodic Results Test Name Value Interpretation Reference Range Facility [facility] 06-19-2024 CNCO Letter Text Normal [facility] CNPNon 06-19-2024 CNPN Telephone ([facility]) PIPER RODRÍGUEZ ([id number]) 1970 Date Time Provider Department 06/19/24 DONIS CARIAS [facility] During your visit today, we recorded the following information about you: Maura Casiano 06/19/2024 1:29 PM Signed Patient had surgery on 06/14/24. He is asking to speak to a nurse about his restrictions and what he can and cannot do # [phone] Jocelyn Cantrell RN 06/19/2024 1:48 PM Signed Returned call. He would like to be able to return to the office for a few hours every other day. He asked for a note to allow him to do this. His job does not require any physical activity. Note sent through My Chart. Allergies As of Date: 06/19/2024 (No Known Allergies) Date Reviewed: 06/15/2024 Reviewed by: Mami Bustos, RN - Fully Assessed Reason for Visit: Patient Question [5437] Prescriptions as of 06/19/2024 - acetaminophen (TYLENOL) 500 mg tablet Take 2 tablets by mouth every 6 hours. - enoxaparin (LOVENOX) 40 mg/0.4 mL Inject 0.4 mL subcutaneously every 24 hours for 21 days. - lactobacillus rhamnosus (CULTURELLE) 10 billion cell capsule Take 1 capsule by mouth once daily. - oxyCODONE IR (ROXICODONE) 5 mg immediate release tablet Take 1 tablet by mouth every 6 hours as needed for up to 7 days. - EDARBI 80 mg tab - iv contrast (will be provided with radiology test) CT Chest ABD/PEL-Inject, intravenously, once for 1 dose.No IV access, insert saline lock prior to the beginning of sedation, infusion, injection of imaging exam. Discontinue saline lock post exam. If Pt. has a central line or IVAD, may access for administration according to line specific nursing protocol. Once exam is complete flush line and de-access according to line specific nursing protocol in the CT contrast administration guidelines link. - enteric contrast (will be provided with radiology test) For CT CHESTABD/PEL W IVCON Routine order Administer, As Directed One Time Only, via Oral, Rectal, both Oral and Rectal, Enteric Tube, Stoma or Indwelling Catheter, Enteric Contrast as designated per enteric contrast guidelines Problem List As Of Date 06/19/2024 Noted Resolved BMI 38.0-38.9,adult [Z68.38] 06/08/2024 HTN (hypertension) [I10] 06/08/2024 Smokeless tobacco use [Z72.0] 06/08/2024 SHERIE (obstructive sleep apnea) [G47.33] 06/08/2024 Malignant neoplasm of ascending colon (HCC) [C1*06/14/2024 Nicotine use disorder, F17.2 [F17.200] 06/16/2024 Encounter Status:Closed by JOCELYN CANTRELL on 1/27/25 [facility] Basic metabolic 2000 panelon 06-16-2024 Anion gap [Moles/Vol] 12 mmol/L Normal 8-15 [facility] Comment on above: Order Comment: Speci men Type: BLOOD SPECIMEN Ordering Facility: [facility] Address: [address] [place] [address] Performed By: #### 2 4321-2 #### [facility] CLIA [id number] [address] [place] [address] [place] Calcium [Mass/Vol] 8.9 mg/dL Normal 8.5-10.2 [facility] Comment on above: Order Comment: Speci men Type: BLOOD SPECIMEN Ordering Facility: [facility] Address: [address] [place] [address] Performed By: #### 2 4321-2 #### [facility] CLIA [id number] [address] [place] [address] [place] Chloride [Moles/Vol] 103 mmol/L Normal 98-107 [facility] Comment on above: Order Comment: Speci men Type: BLOOD SPECIMEN Ordering Facility: [facility] Address: [address] [place] [address] Performed By: #### 2 4321-2 #### [facility] CLIA [id number] [address] [place] [address] [place] CO2 [Moles/Vol] 22 mmol/L Normal 22-30 [facility] Comment on above: Order Comment: Speci men Type: BLOOD SPECIMEN Ordering Facility: [facility] Address: [address] [place] [address] Performed By: #### 2 4321-2 #### [facility] CLIA [id number] [place] [address] [place] Creatinine [Mass/Vol] 0.90 mg/dL Normal 0.73-1.22 [facility] Comment on above: Order Comment: Speci men Type: BLOOD SPECIMEN Ordering Facility: [facility] Address: [address] [place] [address] Performed By: #### 2 4321-2 #### [facility] CLIA [id number] [address] [place] [address] [place] Creatinine and Glomerular filtration rate.predicted panel (S/P/Bld) 102 mL/min/1.73m??? Normal >=60 [facility] Comment on above: Order Comment: Ara powers Type: BLOOD SPECIMEN Ordering Facility: [facility] Address: [address] [place] [address] Result Comment: Dee mated Glomerular Filtration Rate (eGFR) is calculated using the 2020 CKD-EPI creatinine equation. This equation utilizes serum creatinine, sex, and age as parameters. The creatinine assay has traceable calibration to isotope dilution-mass spectrometry. Refer to KDIGO guidelines for clinical interpretation. In patients with unstable renal function, e.g. those with acute kidney injury, the eGFR may not accurately reflect actual GFR. Performed By: #### 2 4321-2 #### [facility] CLIA [id number] [address] [place] [address] [place] Glucose [Mass/Vol] 162 mg/dL High 74-99 [facility] Comment on above: Order Comment: Ara powers Type: BLOOD SPECIMEN Ordering Facility: [facility] Address: [address] [place] [address] Result Comment: The [place] Diabetes Association (ADA) provides guidance for cutoff values for fasting glucose and random glucose. The ADA defines fasting as no caloric intake for at least 8 hours. Fasting plasma glucose results between 100 to 125 mg/dL indicate increased risk for diabetes (prediabetes). Fasting plasma glucose results greater than or equal to 126 mg/dL meet the criteria for diagnosis of diabetes. In the absence of unequivocal hyperglycemia, results should be confirmed by repeat testing. In a patient with classic symptoms of hyperglycemia or hyperglycemic crisis, random plasma glucose results greater than or equal to 200 mg/dL meet the criteria for diagnosis of diabetes. Reference: Standards of Medical Care in Diabetes 2016, [place] Diabetes Association. Diabetes Care. 2016.39(Suppl 1). Performed By: #### 2 4321-2 #### [facility] CLIA [id number] [place] [address] [place] Potassium [Moles/Vol] 4.4 mmol/L Normal 3.7-5.1 [facility] Comment on above: Order Comment: Speci men Type: BLOOD SPECIMEN Ordering Facility: [facility] Address: [address] [place] [address] Performed By: #### 2 4321-2 #### [facility] CLIA [id number] [address] [place] [address] [place] Sodium [Moles/Vol] 137 mmol/L Normal 136-144 [facility] Comment on above: Order Comment: Speci men Type: BLOOD SPECIMEN Ordering Facility: [facility] Address: [address] [place] [address] Performed By: #### 2 4321-2 #### [facility] CLIA [id number] [address] [place] [address] [place] Urea nitrogen [Mass/Vol] 10 mg/dL Normal - [facility] Comment on above: Order Comment: Speci men Type: BLOOD SPECIMEN Ordering Facility: [facility] Address: [address] [place] [address] Performed By: #### 2 4321-2 #### [facility] CLIA [id number] [address] [place] [address] [place] CBC W Auto Differential pane l (Bld)on 06-16-2024 Basophils (Bld) [#/Vol] 0.04 10*3/uL Normal <0.11 [facility] Comment on above: Order Comment: Speci men Type: BLOOD SPECIMENOrdering Facility: [facility] Address: [address] [place] [address] Performed By: #### 5 7021-8 ####[facility] [id number] [place] [address] [place] Basophils/100 WBC (Bld) 0.6 % Normal [facility] Comment on above: Order Comment: Speci men Type: BLOOD SPECIMENOrdering Facility: [facility] Address: [address] [place] [address] Performed By: #### 5 7021-8 ####[facility] [id number] [place] [address] [place] Differential cell count method Nom (Bld) Auto Normal [facility] Comment on above: Order Comment: Speci men Type: BLOOD SPECIMENOrdering Facility: [facility] Address: [address] [place] [address] Performed By: #### 5 7021-8 ####[facility] [id number] [place] [address] [place] Eosinophils (Bld) [#/Vol] 0.16 10*3/uL Normal <0.46 [facility] Comment on above: Order Comment: Speci men Type: BLOOD SPECIMENOrdering Facility: [facility] Address: [address] [place] [address] Performed By: #### 5 7021-8 ####[facility] [id number] [address] Eosinophils/100 WBC (Bld) 2.4 % Normal [facility] Comment on above: Order Comment: Speci men Type: BLOOD SPECIMENOrdering Facility: [facility] Address: [address] [place] [address] Performed By: #### 5 7021-8 ####[facility] [id number] [address] [place] Erythrocyte distribution width (RBC) [Ratio] 15.6 % High 11.5-15.0 [facility] Comment on above: Order Comment: Speci men Type: BLOOD SPECIMENOrdering Facility: [facility] Address: [address] [place] [address] Performed By: #### 5 7021-8 ####[facility] [id number] [place] [id number] [facility] [place] Hematocrit (Bld) [Volume fraction] 44.0 % Normal 39.0-51.0 [facility] Comment on above: Order Comment: Speci men Type: BLOOD SPECIMENOrdering Facility: [facility] Address: [address] [place] [address] Performed By: #### 5 7021-8 ####[facility] [id number] [place] [address] [place] Hemoglobin (Bld) [Mass/Vol] 13.8 g/dL Normal 13.0-17.0 [facility] Comment on above: Order Comment: Speci men Type: BLOOD SPECIMENOrdering Facility: [facility] Address: [address] [place] [address] Performed By: #### 5 7021-8 ####[facility] [id number] [place] [id number] [place] Immature granulocytes (Bld) [#/Vol] 0.03 10*3/uL Normal <0.10 [facility] Comment on above: Order Comment: Speci men Type: BLOOD SPECIMENOrdering Facility: [facility] Address: [address] [place] [address] Performed By: #### 5 7021-8 ####[facility] [id number] [place] [address] [place] Immature granulocytes/100 WBC (Bld) 0.5 % Normal [facility] Comment on above: Order Comment: Speci men Type: BLOOD SPECIMENOrdering Facility: [facility] Address: [address] [place] [address] Performed By: #### 5 7021-8 ####[facility] [id number] [place] [address] [place] Lymphocytes (Bld) [#/Vol] 1.23 10*3/uL Normal 1.00-4.00 [facility] Comment on above: Order Comment: Speci men Type: BLOOD SPECIMENOrdering Facility: [facility] Address: [address] [place] [address] Performed By: #### 5 7021-8 ####[facility] [id number] [place] [id number] [place] Lymphocytes/100 WBC (Bld) 18.8 % Normal [facility] Comment on above: Order Comment: Speci men Type: BLOOD SPECIMENOrdering Facility: [facility] Address: [address] [place] [address] Performed By: #### 5 7021-8 ####[facility] [id number] [address] [facility] MCH (RBC) [Entitic mass] 29.9 pg Normal 26.0-34.0 [facility] Comment on above: Order Comment: Speci men Type: BLOOD SPECIMENOrdering Facility: [facility] Address: [address] [place] [address] Performed By: #### 5 7021-8 ####[facility] [id number] [place] [address] [place] MCHC (RBC) [Mass/Vol] 31.4 g/dL Normal 30.5-36.0 [facility] Comment on above: Order Comment: Speci men Type: BLOOD SPECIMENOrdering Facility: [facility] Address: [address] [place] [address] Performed By: #### 5 7021-8 ####[facility] [id number] [address] [place] MCV (RBC) [Entitic vol] 95.4 fL Normal 80.0-100.0 [facility] Comment on above: Order Comment: Speci men Type: BLOOD SPECIMENOrdering Facility: [facility] Address: [address] [place] [address] Performed By: #### 5 7021-8 ####[facility] [id number] [address] [place] Monocytes (Bld) [#/Vol] 0.76 10*3/uL Normal <0.87 [facility] Comment on above: Order Comment: Speci men Type: BLOOD SPECIMENOrdering Facility: [facility] Address: [address] [place] [address] Performed By: #### 5 7021-8 ####[facility] [id number] [address] Monocytes/100 WBC (Bld) 11.6 % Normal [facility] Comment on above: Order Comment: Speci men Type: BLOOD SPECIMENOrdering Facility: [facility] Address: [address] [place] [address] Performed By: #### 5 7021-8 ####[facility] [id number] [place] [id number] [place] Neutrophils (Bld) [#/Vol] 4.32 10*3/uL Normal 1.45-7.50 [facility] Comment on above: Order Comment: Speci men Type: BLOOD SPECIMENOrdering Facility: [facility] Address: [address] [place] [address] Performed By: #### 5 7021-8 ####[facility]ORYCLIA [id number] [place] [id number] [place] Neutrophils/100 WBC (Bld) 66.1 % Normal [facility] Comment on above: Order Comment: Speci men Type: BLOOD SPECIMENOrdering Facility: [facility] Address: [address] [place] [address] Performed By: #### 5 7021-8 ####[facility] [id number] [place] [id number] [place] Nucleated RBC (Bld) [#/Vol] 10*3/uL Normal <0.01 [facility] Comment on above: Order Comment: Speci men Type: BLOOD SPECIMENOrdering Facility: [facility] Address: [address] [place] [address] Performed By: #### 5 7021-8 ####[facility] [id number] [place] [id number] [place] Nucleated RBC/100 WBC (Bld) [Ratio] 0.0 /100 WBC Normal [facility] Comment on above: Order Comment: Speci men Type: BLOOD SPECIMENOrdering Facility: [facility] Address: [address] [place] [address] Performed By: #### 5 7021-8 ####[facility]ORYCLIA [id number] [place] [id number] [place] Platelet mean volume (Bld) [Entitic vol] 11.2 fL Normal 9.0-12.7 [facility] Comment on above: Order Comment: Speci men Type: BLOOD SPECIMENOrdering Facility: [facility] Address: [address] [place] [address] Performed By: #### 5 7021-8 ####[facility] [id number] [place] [id number] [facility] Platelets (Bld) [#/Vol] 191 10*3/uL Normal 150-400 [facility] Comment on above: Order Comment: Speci men Type: BLOOD SPECIMENOrdering Facility: [facility] Address: [address] [place] [address] Performed By: #### 5 7021-8 ####[facility] [id number] [place] [id number] [facility] [place] RBC (Bld) [#/Vol] 4.61 10*6/uL Normal 4.20-6.00 [facility] Comment on above: Order Comment: Speci men Type: BLOOD SPECIMENOrdering Facility: [facility] Address: [address] [place] [address] Performed By: #### 5 7021-8 ####[facility] [id number] [place] [id number] [facility] WBC (Bld) [#/Vol] 6.54 10*3/uL Normal 3.70-11.00 [facility] Comment on above: Order Comment: Speci men Type: BLOOD SPECIMENOrdering Facility: [facility] [facility] Address: [address] [place] [address] Performed By: #### 5 7021-8 ####[facility] [id number] [place] [id number] [facility] CNDSon 06-16-2024 CNDS HNO ID: [id number] Author: DONIS CARIAS MD Service: Colorectal Author Type: Nurse Practitioner Type: Discharge Summary Filed: 06/18/2024 21:38 Note Text: Attestation signed by Donis Carias MD at 06/18/2024 9:38 PM I agree with the SHEKHAR's findings and plan as documented and have discussed the case and management of the patient's care with the team. Signature: Donis Carias MD DISCHARGE SUMMARY PATIENT NAME: Piper Rodríguez ADMISSION DATE: 06/14/2024 DISCHARGE DATE: 06/16/2024 ATTENDING PHYSICIAN: Donis Carias MD Code Status: Not on file Highest Readmission Risk Score: 10 The 30 day readmissions risk score is derived from an internally validated risk model which evaluates patient level characteristics, utilization history, medication orders and lab results up until the day of discharge. Patients with a score of 40 or above are considered highest risk for readmission. Specific patient level drivers will be listed at the bottom of the summary. CONSULTING TEAMS DURING HOSPITALIZATION: None Treatment Team: Attending Provider: Donis Carias MD REASON FOR HOSPITALIZATION: scheduled surgery DIAGNOSIS: Principal Problem: Malignant neoplasm of ascending colon (HCC) (POA: Yes) Active Problems: Nicotine use disorder, F17.2 (POA: Unknown) Resolved Problems: * No resolved hospital problems. * Exogenous Class 2 Obesity OPERATIONS DURING HOSPITALIZATION: Laparoscopic Right Colectomy PROCEDURES DURING HOSPITALIZATION: No procedures performed HOSPITAL COURSE: Mr Rodríguez is a 54 year old male who was admitted for scheduled surgery with Dr. Carias - Laparoscopic Right Colectomy. Post-op on the regular nursing floor. Pain well controlled. IV fluids continued given creatinine elevation. Diet advanced as tolerated, GI soft ton POD1 without concern. Bowel function with flatus and stools. DVT ppx while admitted with lovenox, discharged home with 21 days of extended ppx. On 06/16/2024 he was discharged home with follow up scheduled. Colectomy SSI Bundle Reporting: Was this an elective case: Yes Which of the following did the patient complete pre-operatively? Combined Oral Antibiotic Bowel Prep and CHG wash or wipes Transitions of Care Critical Issues: N/a LABS AND PROCEDURES PENDING AT DISCHARGE: Pathology Results (surgical) PATIENT CONDITION AT DISCHARGE: Stable DISCHARGE DISPOSITION: Home with Self Care Discharge Physical Exam: VITAL SIGNS: BP 106/61 Pulse (!) 56 Temp 36.9 ?C (98.4 ?F) (Oral) Resp 17 Ht 177.8 cm (5' 10 ) Wt 122.5 kg (270 lb) SpO2 94% BMI 38.74 kg/m? INFORMATION PROVIDED TO PATIENT: discharge instructions ALLERGIES No Known Allergies DISCHARGE MEDICATION: Medication List CONTINUE taking these medications enteric contrast (will be provided with radiology test) For CT CHESTABD/PEL W IVCON Routine order Administer, As Directed One Time Only, via Oral, Rectal, both Oral and Rectal, Enteric Tube, Stoma or Indwelling Catheter, Enteric Contrast as designated per enteric contrast guidelines iv contrast (will be provided with radiology test) CT Chest ABD/PEL-Inject, intravenously, once for 1 dose.No IV access, insert saline lock prior to the beginning of sedation, infusion, injection of imaging exam. Discontinue saline lock post exam. If Pt. has a central line or IVAD, may access for administration according to line specific nursing protocol. Once exam is complete flush line and de-access according to line specific nursing protocol in the CT contrast administration guidelines link. ASK your doctor about these medications EDARBI 80 mg Tab Generic drug: azilsartan metroNIDAZOLE 500 mg tablet Commonly known as: FLAGYL Take 1 tablet by mouth as directed. Take one tab at 6:00 p.m., another at 7:00 p.m. and the last one at 11:00 p.m., prior to surgery neomycin 500 mg tablet Take 2 tablets by mouth as directed. Take two tabs at 6:00 p.m., 7:00 p.m. and 11:00 p.m., prior to surgery No future appointments. The patient's risk for 30-day readmission is determined using the following contributing factors: Pt variables contributing to increased readmission risk: 10 Most Recent BUN Result 9 Active Medication Orders 8.9 First Resulted Calcium During Admission 1 Insurance - Private Coverage 1 Active Anticoagulant Plan of care discussed with Provider, RN, Patient I spent a total of 50 minutes on the date of the service which included preparing to see the patient, [id number] patient care, completing clinical documentation, obtaining and/or reviewing separately obtained history, performing a medically appropriate examination, and care coordination (not separately reported). SIGNATURE: 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 DATE: June 16, 2024 (more content not included)... Normal [facility] Basic metabolic 2000 panelon 06-15-2024 Anion gap [Moles/Vol] 13 mmol/L Normal 8-15 [facility] Comment on above: Order Comment: Speci men Type: BLOOD SPECIMEN Ordering Facility: [facility] Address: [address] [place] [address] Performed By: #### 2 4321-2 #### [facility] CLIA [id number] [address] [place] [address] [place] Calcium [Mass/Vol] 8.9 mg/dL Normal 8.5-10.2 [facility] Comment on above: Order Comment: Speci men Type: BLOOD SPECIMEN Ordering Facility: [facility] Address: [address] [place] [address] Performed By: #### 2 4321-2 #### [facility] CLIA [id number] [address] [place] [address] [place] Chloride [Moles/Vol] 100 mmol/L Normal 98-107 [facility] Comment on above: Order Comment: Speci men Type: BLOOD SPECIMEN Ordering Facility: [facility] Address: [address] [place] [address] Performed By: #### 2 4321-2 #### [facility] CLIA [id number] [address] [place] [address] [place] CO2 [Moles/Vol] 21 mmol/L Low 22-30 [facility] Comment on above: Order Comment: Speci men Type: BLOOD SPECIMEN Ordering Facility: [facility] Address: [address] [place] [address] Performed By: #### 2 4321-2 #### [facility] CLIA [id number] [address] [place] [address] [place] Creatinine [Mass/Vol] 1.25 mg/dL High 0.73-1.22 [facility] Comment on above: Order Comment: Ara powers Type: BLOOD SPECIMEN Ordering Facility: [facility] Address: [address] [place] [address] Performed By: #### 2 4321-2 #### [facility] CLIA [id number] [address] [place] [address] [place] Creatinine and Glomerular filtration rate.predicted panel (S/P/Bld) 69 mL/min/1.73m??? Normal >=60 [facility] Comment on above: Order Comment: Ara powers Type: BLOOD SPECIMEN Ordering Facility: [facility] Address: [address] [place] [address] Result Comment: Dee mated Glomerular Filtration Rate (eGFR) is calculated using the 2020 CKD-EPI creatinine equation. This equation utilizes serum creatinine, sex, and age as parameters. The creatinine assay has traceable calibration to isotope dilution-mass spectrometry. Refer to KDIGO guidelines for clinical interpretation. In patients with unstable renal function, e.g. those with acute kidney injury, the eGFR may not accurately reflect actual GFR. Performed By: #### 2 4321-2 #### [facility] CLIA [id number] [address] [place] [address] [place] Glucose [Mass/Vol] 105 mg/dL High 74-99 [facility] Comment on above: Order Comment: Ara powers Type: BLOOD SPECIMEN Ordering Facility: [facility] Address: [address] [place] [address] Result Comment: The [place] Diabetes Association (ADA) provides guidance for cutoff values for fasting glucose and random glucose. The ADA defines fasting as no caloric intake for at least 8 hours. Fasting plasma glucose results between 100 to 125 mg/dL indicate increased risk for diabetes (prediabetes). Fasting plasma glucose results greater than or equal to 126 mg/dL meet the criteria for diagnosis of diabetes. In the absence of unequivocal hyperglycemia, results should be confirmed by repeat testing. In a patient with classic symptoms of hyperglycemia or hyperglycemic crisis, random plasma glucose results greater than or equal to 200 mg/dL meet the criteria for diagnosis of diabetes. Reference: Standards of Medical Care in Diabetes 2016, [place] Diabetes Association. Diabetes Care. 2016.39(Suppl 1). Performed By: #### 2 4321-2 #### [facility] CLIA [id number] [address] [place] [address] [place] Potassium [Moles/Vol] 4.8 mmol/L Normal 3.7-5.1 [facility] Comment on above: Order Comment: Speci men Type: BLOOD SPECIMEN Ordering Facility: [facility] Address: [address] [place] [address] Performed By: #### 2 4321-2 #### [facility] CLIA [id number] [address] [place] [address] [place] Sodium [Moles/Vol] 134 mmol/L Low 136-144 [facility] Comment on above: Order Comment: Speci men Type: BLOOD SPECIMEN Ordering Facility: [facility] Address: [address] [place] [address] Performed By: #### 2 4321-2 #### [facility] CLIA [id number] [address] [place] [address] [place] Urea nitrogen [Mass/Vol] 19 mg/dL Normal 9-24 [facility] Comment on above: Order Comment: Speci men Type: BLOOD SPECIMEN Ordering Facility: [facility] Address: [address] [place] [address] Performed By: #### 2 4321-2 #### [facility] CLIA [id number] [address] [place] [address] [place] CBC W Auto Differential pane l (Bld)on 06-15-2024 Basophils (Bld) [#/Vol] 0.03 10*3/uL Normal <0.11 [facility] Comment on above: Order Comment: Speci men Type: BLOOD SPECIMEN Ordering Facility: [facility] Address: [address] [place] [address] Performed By: #### 5 7021-8 #### [facility] CLIA [id number] [address] [place] [address] [place] Basophils/100 WBC (Bld) 0.3 % Normal [facility] Comment on above: Order Comment: Speci men Type: BLOOD SPECIMEN Ordering Facility: [facility] Address: [address] [place] [address] Performed By: #### 5 7021-8 #### [facility] CLIA [id number] [address] [place] [address] [place] Differential cell count method Nom (Bld) Auto Normal [facility] Comment on above: Order Comment: Speci men Type: BLOOD SPECIMEN Ordering Facility: [facility] Address: [address] [place] [address] Performed By: #### 5 7021-8 #### [facility] CLIA [id number] [address] [place] [address] [place] Eosinophils (Bld) [#/Vol] 10*3/uL Normal <0.46 [facility] Comment on above: Order Comment: Speci men Type: BLOOD SPECIMEN Ordering Facility: [facility] Address: [address] [place] [address] Performed By: #### 5 7021-8 #### [facility] CLIA [id number] [address] [place] [address] [place] Eosinophils/100 WBC (Bld) 0.2 % Normal [facility] Comment on above: Order Comment: Speci men Type: BLOOD SPECIMEN Ordering Facility: [facility] Address: [address] [place] [address] Performed By: #### 5 7021-8 #### [facility] CLIA [id number] [address] [place] [address] [place] Erythrocyte distribution width (RBC) [Ratio] 15.5 % High 11.5-15.0 [facility] Comment on above: Order Comment: Speci men Type: BLOOD SPECIMEN Ordering Facility: [facility] Address: [address] [place] [address] Performed By: #### 5 7021-8 #### [facility] CLIA [id number] [address] [place] [address] [place] Hematocrit (Bld) [Volume fraction] 41.5 % Normal 39.0-51.0 [facility] Comment on above: Order Comment: Speci men Type: BLOOD SPECIMEN Ordering Facility: [facility] Address: [address] [place] [address] Performed By: #### 5 7021-8 #### [facility] CLIA [id number] [address] [place] [address] [place] Hemoglobin (Bld) [Mass/Vol] 13.8 g/dL Normal 13.0-17.0 [facility] Comment on above: Order Comment: Speci men Type: BLOOD SPECIMEN Ordering Facility: [facility] Address: [address] [place] [address] Performed By: #### 5 7021-8 #### [facility] CLIA [id number] [address] [place] [address] [place] Immature granulocytes (Bld) [#/Vol] 0.06 10*3/uL Normal <0.10 [facility] Comment on above: Order Comment: Speci men Type: BLOOD SPECIMEN Ordering Facility: [facility] Address: [address] [place] [address] Performed By: #### 5 7021-8 #### [facility] CLIA [id number] [address] [place] [address] [place] Immature granulocytes/100 WBC (Bld) 0.6 % Normal [facility] Comment on above: Order Comment: Speci men Type: BLOOD SPECIMEN Ordering Facility: [facility] Address: [address] [place] [address] Performed By: #### 5 7021-8 #### [facility] CLIA [id number] [address] [place] [address] [place] Lymphocytes (Bld) [#/Vol] 1.01 10*3/uL Normal 1.00-4.00 [facility] Comment on above: Order Comment: Speci men Type: BLOOD SPECIMEN Ordering Facility: [facility] Address: [address] [place] [address] Performed By: #### 5 7021-8 #### [facility] CLIA [id number] [address] [place] [address] [place] Lymphocytes/100 WBC (Bld) 10.3 % Normal [facility] Comment on above: Order Comment: Speci men Type: BLOOD SPECIMEN Ordering Facility: [facility] Address: [address] [place] [address] Performed By: #### 5 7021-8 #### [facility] CLIA [id number] [address] [place] [address] [place] [facility] MCH (RBC) [Entitic mass] 30.6 pg Normal 26.0-34.0 [facility] Comment on above: Order Comment: Speci men Type: BLOOD SPECIMEN Ordering Facility: [facility] Address: [address] [place] [address] Performed By: #### 5 7021-8 #### [facility] CLIA [id number] [address] [place] [address] [place] MCHC (RBC) [Mass/Vol] 33.3 g/dL Normal 30.5-36.0 [facility] Comment on above: Order Comment: Speci men Type: BLOOD SPECIMEN Ordering Facility: [facility] Address: [address] [place] [address] Performed By: #### 5 7021-8 #### [facility] CLIA [id number] [address] [place] [address] [place] MCV (RBC) [Entitic vol] 92.0 fL Normal 80.0-100.0 [facility] Comment on above: Order Comment: Speci men Type: BLOOD SPECIMEN Ordering Facility: [facility] Address: [address] [place] [address] Performed By: #### 5 7021-8 #### [facility] CLIA [id number] [address] [place] [address] [place] Monocytes (Bld) [#/Vol] 1.07 10*3/uL High <0.87 [facility] Comment on above: Order Comment: Speci men Type: BLOOD SPECIMEN Ordering Facility: [facility] Address: [address] [place] [address] Performed By: #### 5 7021-8 #### [facility] CLIA [id number] [address] [place] [address] [place] Monocytes/100 WBC (Bld) 10.9 % Normal [facility] Comment on above: Order Comment: Speci men Type: BLOOD SPECIMEN Ordering Facility: [facility] Address: [address] [place] [address] Performed By: #### 5 7021-8 #### [facility] CLIA [id number] [address] [place] [address] [place] Neutrophils (Bld) [#/Vol] 7.59 10*3/uL High 1.45-7.50 [facility] Comment on above: Order Comment: Speci men Type: BLOOD SPECIMEN Ordering Facility: [facility] Address: [address] [place] [address] Performed By: #### 5 7021-8 #### [facility] CLIA [id number] [address] [place] [address] [place] Neutrophils/100 WBC (Bld) 77.7 % Normal [facility] Comment on above: Order Comment: Speci men Type: BLOOD SPECIMEN Ordering Facility: [facility] Address: [address] [place] [address] Performed By: #### 5 7021-8 #### [facility] CLIA [id number] [address] [place] [address] [place] Nucleated RBC (Bld) [#/Vol] 10*3/uL Normal <0.01 [facility] Comment on above: Order Comment: Speci men Type: BLOOD SPECIMEN Ordering Facility: [facility] Address: [address] [place] [address] Performed By: #### 5 7021-8 #### [facility] CLIA [id number] [address] [place] [address] [place] Nucleated RBC/100 WBC (Bld) [Ratio] 0.0 /100 WBC Normal [facility] Comment on above: Order Comment: Speci men Type: BLOOD SPECIMEN Ordering Facility: [facility] Address: [address] [place] [address] Performed By: #### 5 7021-8 #### [facility] CLIA [id number] [address] [place] [address] [place] Platelet mean volume (Bld) [Entitic vol] 10.8 fL Normal 9.0-12.7 [facility] Comment on above: Order Comment: Speci men Type: BLOOD SPECIMEN Ordering Facility: [facility] Address: [address] [place] [address] Performed By: #### 5 7021-8 #### [facility] CLIA [id number] [address] [place] [address] [place] Platelets (Bld) [#/Vol] 176 10*3/uL Normal 150-400 [facility] Comment on above: Order Comment: Speci men Type: BLOOD SPECIMEN Ordering Facility: [facility] Address: [address] [place] [address] Performed By: #### 5 7021-8 #### [facility] CLIA [id number] [address] [place] [address] [place] RBC (Bld) [#/Vol] 4.51 10*6/uL Normal 4.20-6.00 [facility] Comment on above: Order Comment: Speci men Type: BLOOD SPECIMEN Ordering Facility: [facility] Address: [address] [place] [address] Performed By: #### 5 7021-8 #### [facility] CLIA [id number] [address] [place] [address] [place] WBC (Bld) [#/Vol] 9.78 10*3/uL Normal 3.70-11.00 [facility] Comment on above: Order Comment: Speci men Type: BLOOD SPECIMEN Ordering Facility: [facility] Address: [address] [place] [address] Performed By: #### 5 7021-8 #### [facility] CLIA [id number] [address] [place] [address] OF [place] NUTRITIONon 06-15-2024 NUTRITION HNO ID: [id number] Author: RADHIKA ARZATE RD Service: Nutrition Therapy Author Type: Registered Dietitian Type: Nutrition Filed: 06/15/2024 09:46 Note Text: NUTRITION THERAPY PATIENT EDUCATION TOPIC: Diet: GI Soft PATIENT NAME: Piper Rodríguez SERVICE DATE: June 15, 2024 READINESS TO LEARN Cognitive Ability: Alert and oriented Motivation to Learn: Interested Family Support: Involved, but not present Instruction Provided to: Patient Patient Learns Best by: Multiple Methods Factors Affecting Learning: None Physical Limitations Affecting Learning: None LEARNING RESPONSE Diagnosis: ADULT: s/p LAPAROSCOPY COLECTOMY, PARTIAL, W/ REMOVAL TERMINAL ILEUM W/ ILEOCOLOSTOMY Enteral Nutrition Access Device: None Patient / Family Response: Verbalizes understanding of CORS/GI Soft Diet: Rationale behind diet restriction, foods allowed/to avoid, small frequent meals, chewing thoroughly, fluid recommendations, how long to continue on diet as well as how to transition off diet and(if applicable) dealing with potential problems (ostomy patients only). Method of Instruction: Individual instruction Written instruction/Handouts Verbal instruction Follow-Up Plan: Recommend - Recommend continued instruction and follow up as directed Instructional Aids Used: Eating Right After Bowel Surgery handout Supplemental Material Provided to Patient: None Referral (Recommendation): N/A ARGELIA Zhang June 15, 2024 9:44 AM [facility] ANES POSTPROC EVALon 025 ANES POSTPROC EVAL HNO ID: [id number] Author: ILA MORTENSEN MD Service: Critical Care Author Type: Anesthesiologist Type: Anesthesia Postprocedure Evaluation Filed: 06/14/2024 16:00 Note Text: POST ANESTHESIA EVALUATION NOTE : 1970 Procedure Summary Date: 06/14/24 Room / Location: OR11 / OR Anesthesia Start: 0848 Anesthesia Stop: 1138 Procedure: LAPAROSCOPY COLECTOMY, PARTIAL, W/ REMOVAL TERMINAL ILEUM W/ ILEOCOLOSTOMY (Abdomen) Diagnosis: Malignant neoplasm of ascending colon (HCC) (Malignant neoplasm of ascending colon (HCC) [C18.2]) Surgeons: Donis Carias MD Responsible Provider: Ila Mortensen MD Anesthesia Type: general ASA Status: 2 Anesthesia Type: general Airway Type: ETT Last Vitals Vitals Value Taken Time BP 128/62 06/14/24 1426 Temp 36.7 ?C (98.1 ?F) 06/14/24 1426 HR SpO2 70 06/14/24 1345 Resp 16 06/14/24 1426 SpO2 98 % 06/14/24 1426 Post Anesthesia Patient Status Patient Evaluation: PACU. PACU/ICU Patient Condition: stable. Anticipated Disposition: inpatient floor planned admission. Neurological Status: aware and responsive. Pulmonary Status: breathing comfortably on supplemental oxygen Airway Control: returned to baseline unsupported. Cardiovascular Status: stable. Pain Management: clinically adequate - multimodal analgesia pain management approach Postoperative Hydration: acceptable. Intraoperative Events: no significant anesthesia events Post Operative Nausea/Vomiting Status: no significant post operative nausea or vomiting Recommendation: continue current plan of care and pain control. Anesthesia Observations No Documentation SIGNATURE: Ila Edmond MD PATIENT NAME: Piper Rodríguez DATE: June 14, 2024 TIME: 3:59 PM CSN: [id number] [facility] ANES PRE-OPon 06-14-2024 ANES PRE-OP HNO ID: [id number] Author: ILA MORTENSEN MD Service: Critical Care Author Type: Anesthesiologist Type: Anesthesia Preprocedure Evaluation Filed: 06/14/2024 09:24 Note Text: ANESTHESIOLOGY DAY OF SURGERY NOTE : 1970 Procedure Information Anesthesia Start Date/Time: 06/14/24 0848 Procedure: LAPAROSCOPY COLECTOMY, PARTIAL, W/ REMOVAL TERMINAL ILEUM W/ ILEOCOLOSTOMY (Abdomen) Location: OR11 / [facility] OR Surgeons: Donis Carias MD Estimated body mass index is 38.78 kg/m? as calculated from the following: Height as of 06/08/24: 177.8 cm (5' 10 ). Weight as of 06/08/24: 122.6 kg (270 lb 4.5 oz). Most recent hematocrit and potassium results: Hematocrit 46.1 06/02/2024 Potassium 5.2 06/02/2024 Relevant Problems ANESTHESIA (+) SHERIE (obstructive sleep apnea) (No CPAP use ) (-) History of anesthesia complications CARDIO (+) HTN (hypertension) PULMONARY (+) SHERIE (obstructive sleep apnea) (No CPAP use ) (+) Smokeless tobacco use (Chews tobacco ) Oncology (+) Malignant neoplasm of ascending colon (HCC) Other (+) BMI 38.0-38.9,adult I - PHYSICAL EVALUATION AIRWAY Patient intubated: No. Tracheostomy tube not present Mallampati: III. TM distance: >3 FB. Neck ROM: full ROM without neurological symptoms. Mouth opening: adequate. Short neck: no. Thick neck: yes Ramos present: yes Additional exam findings: no II - ANESTHESIA PLAN ASA Score: 2 Anesthetic Plan: general Airway type: ETT The patient is not a current smoker. NPO Status: adequate Beta Connie Monitoring Plan Monitoring plan: standard ASA. Post Procedure Analgesic Plan Postoperative analgesic plan: multimodal analgesia and parenteral or oral opioids. Informed Consent Anesthetic risks, benefits, alternatives, personnel and consent discussed: yes. Patient / Responsible Libertarian agrees to proceed: yes Patient / Surrogate agrees to blood products: Yes DNR status not reviewed with patient and/or family prior to surgery. Significant changes in the patient condition since the History and Physical, not otherwise documented in primary service progress note: no. Potential Anesthesia issues that may suggest increased risk of complications or contraindication to planned procedure: none. Vitals Value Taken Time BP 120/66 06/14/24 0811 Pulse Resp 18 06/14/24 0811 Temp 36.2 ?C (97.2 ?F) 06/14/24 0811 SpO2 96 % 06/14/24 0811 Facility-Administered Medications as of 06/14/2024 Medication Dose Route Frequency lidocaine (PF) 10 mg/mL (1 %) 1-2 mg injection (XYLOCAINE) 0.1-0.2 mL INTRADERMAL PRN NaCl 0.9% iv flush bag 20 mL INTRAVENOUS PRN [COMPLETED] cefTRIAXone 2 g in D5W 100 mL Vial-Bag (ROCEPHIN) 2 g INTRAVENOUS Pre-Op Once [COMPLETED] metroNIDAZOLE iv piggyback 500 mg in NaCl (iso-osmotic) 100 mL (FLAGYL) 500 mg INTRAVENOUS Pre-Op Once [COMPLETED] alvimopan 12 mg cap(s) (ENTEREG) 12 mg ORAL Pre-Op Once [COMPLETED] heparin 5,000 Units injection 5,000 Units SUBCUTANEOUS ONCE Outpatient Medications as of 06/14/2024 Medication Sig EDARBI 80 mg tab I have interviewed and examined the patient. I have reviewed the medical record and/or the pre-anesthesia evaluation, pertinent labs, and test results. This contains updated information obtained within 48 hours of Surgery/Procedure. 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 R/B/A of surgery was discussed with patient and informed consent obtained. OPERATIVE FINDINGS: Hepatic flexure mass DESCRIPTION OF PROCEDURE: The patient was brought to the operating room and placed under general anesthesia in supine position. The abdomen was prepped and draped in normal sterile fashion. The patient received appropriate preop antibiotics and DVT prophylaxis. A surgical time-out was performed. The abdomen was entered using open insertion technique at the umbilicus. The 10 mm Ramirez trocar was placed through this, and the abdomen was insufflated to 15 mmHg. Bilateral TAP block was performed with 0.5% marcaine mixed with exparel. A 5 mm trocar was placed in the LLQ, 2 fingerbreadths medial and superior to the left superior iliac crest. A 5 mm trocar was placed in the left upper quadrant . A third 5 mm trocar was placed in the midline in the epigastrium. The abdomen was inspected and there was no evidence of peritoneal disease. We elected to perform a medial to lateral mobilization of the right colon. This was done by placing the ileocolic vessel on stretch and elevating the vessel. The duodenum was identified. Small bowel slept swept to the patient's left side. The peritoneum overlying the ileocolic vessel was incised to elevate it off the retroperitoneum and the duodenum was identified. The right mesocolon was elevated off the retroperitoneum using blunt dissection. This dissection was continued laterally as far as could easily be visualized. The ileocolic vessel was isolated with ligasure. The ileocolic vessel was then ligated and transected with the LigaSure device with excellent hemostasis. The ileocolic pedicle stump was reinforced with PDS endoloop. We continued the medial to lateral mobilization by bluntly dissecting the colon and mesocolon off the retroperitoneum out to the abdominal sidewall from the iliac fossa up to the hepatic flexure. The duodenum was swept posteriorly to keep it protected at all times. We then turned our attention laterally and incised the peritoneum and the line of Toldt to connect our lateral dissection to our medial dissection with a combination of hook electrocautery and the LigaSure device. This was again taken from the cecum up to the level of the hepatic flexure. The small bowel and its mesentery was elevated off the retroperitoneum by incising the peritoneal attachments with hook electrocautery. We then mobilized the transverse colon and hepatic flexure. This was done by placing the patient in slight reverse Trendelenburg position. The omentum was retracted cephalad. The attachments of the omentum to the transverse colon were incised to enter into the lesser sac. This dissection was done with the LigaSure device and dissection was continued to the hepatic flexure. The attachments of the hepatic flexure were then transected with LigaSure device to allow us to mobilize the colon medially and to expose the duodenum. The hepatic flexure was tortuous. This completed our laparoscopic portion. A grasper was placed on the appendix. The umbilical port was then removed and the periumbilical incision was extended cephalad and a wound retractor was placed within this incision. The specimen was then delivered out through the incision and oriented. Proximal and distal transection points were chosen, mesenteric windows made and intervening mesentery divided. Antimesenteric enterotomies were created. A purlple load 80 mm CHARISSA stapler was inserted into the bowel to create a [id number] functional end-to-end anastomosis. The bowel was lined up in an antimesenteric to antimesenteric fashion. Stapler was closed and fired without difficulty and the staple lines were inspected intraluminally and found to be hemostatic. Staple lines appeared to be intact. The common enterotomy was closed with a single firing of a TA 90 stapler. Specimen was excised with #10. Specimen was sent off to pathology for routine examination. A3-0 Vicryl suture was placed at the crotch of the anastomosis and also reinforce the TA staple line. The anastomosis was inspected (more content not included)... Normal [facility] ECG COMPLETEon 06-08-2024 ECG COMPLETE Ventricular Rate : 6 2 BPM Atrial Rate : 62 BPM P-R Interval : 170 ms QRS Duration : 94 ms Q-T Interval : 402 ms QTC Calculation(Bazett) : 408 ms Calculated P [place] : 50 degrees Calculated R [place] : 18 degrees Calculated T [place] : 44 degrees NORMAL SINUS RHYTHM NORMAL ECG Confirmed by ALEX METCALF MD ([id number]) on 06/09/2024 6:31:40 AM NAME : PIPER RODRÍGUEZ PID : [id number] : 1970 Gender : Male Race : ORD : [id number] Procedure Date : Jun 08 2024 08:53:10 Edit Date : Jun 09 2024 06:31:44 Diagnosis: NORMAL SINUS RHYTHM NORMAL ECG Confirmed by ALEX METCALF MD ([id number]) on 06/09/2024 6:31:40 AM Test Reason : PRE OP Location : 545 : [facility] Overread By : ALEX METCALF MD Edited By : ALEX METCALF MD Referred By : DONIS CARIAS Acquired by : Andrea YATES [facility] HISTORY PHYSICALon HISTORY PHYSICAL HNO ID: [id number] Author: AUBREY BAER PA-C Service: ? Author Type: Physician Chocolate Finisher Type: H&P Filed: 06/08/2024 09:20 Note Text: HISTORY AND PHYSICAL EXAMINATION SERVICE DATE: 06/08/2024 SERVICE TIME: 8:45 AM PRIMARY CARE PHYSICIAN: Gen Pratt MD REASON FOR VISIT: Piper Rodríguez is a 54 year old male who is scheduled for LAPAROSCOPY COLECTOMY, PARTIAL, W/ REMOVAL TERMINAL ILEUM W/ ILEOCOLOSTOMY at the request of Dr. Donis Carias for consultation. My final recommendation will be communicated back to the requesting physician by way of shared medical record or letter. Assessment Patient has the following medical conditions which may affect sarina-operative course: BMI 38.0-38.9,adult Assessment: BMI 38.78 HTN (hypertension) Assessment: managed with Quin, PCP following Stable, BP in office 06/08/2024: 128/82 Smokeless tobacco use Assessment: daily use of smokeless tobacco , chew SHERIE (obstructive sleep apnea) Assessment: h/o positive sleep study Unable to tolerate CPAP Matias Activity Status Index: METS: Walk a block or two on level ground (2.75 METs) Climb a flight of stairs or walk up a hill (5.50 METs) DASI Score: 8.25 Patient denies any chest pain or undue shortness of breath with the above physical activity. Clinical Frailty Scale: 2. Well STOP-Bang Score: Snores loudly Has or is being treated for high blood pressure BMI greater than 35 kg/m2 Patient over 50 years old Male patient Denies feeling tired, fatigued, or sleepy during the daytime Has not been observed to stop breathing or choking/gasping during sleep Does not have a large neck STOP-Bang Score: 5 (+SHERIE, unable to tolerate CPAP ) [id number] Score: Age: <65 Sex: male CHF history: No Hypertension history: Yes Stroke/TIA/thromboembo lism history: No Vascular disease history: No Diabetes history: No [id number] Score: 1 ARISCAT Score: Age: 51-80 Preoperative SpO2: >=96% Respiratory infection in the last month: No Preoperative anemia: No Duration of surgery: >3 hrs Emergency procedure: No ARISCAT Score: ANESTHESIA FINDINGS: Intubation History: No prior intubation Significant Anesthesia Considerations: none Airway History: No prior intubation I - PHYSICAL EVALUATION AIRWAY Patient intubated: No. Tracheostomy tube not present Mallampati: IV. TM distance: >3 FB. Mouth opening: adequate. Short neck: yes. Thick neck: yes Ramos present: no Lip Bite Test: II Microretrognathia/Micr onagthia/Recessed Chin: No DENTAL Dental findings: teeth intact. II - ANESTHESIA PLAN Beta Connie Monitoring Plan Post Procedure Analgesic Plan Prepared for surgery: This patient is optimally prepared for surgery. CONSULTS: Patient does not require consults for optimization at this time. The Following Tests/Procedures Have Been Initiated: Orders Placed This Encounter ECG (IN OFFICE) ECG COMPLETE Order Comments: Ordered by an unspecified provider Planned Anesthetic: Per anesthesia choice Subjective CHIEF COMPLAINT: Malignant neoplasm of ascending colon (HCC) [C18.2] HPI: Patient is a 54 year old male here for PACC. Patient has been seen and evaluated by colorectal surgeon due to hard ulcerated friable cecal mass extending to appendix per colonoscopy Apr. Prior to colonoscopy, c/o RLQ abdominal pain, hematochezia with anemia. Patient has been recommended for procedure listed above; electing to proceed. REVIEW OF SYSTEMS: General: No weight loss, malaise or fevers. Neuro: No history of TIA's, stroke, LOGISTICS ANALYTICS MANAGER tumor, impaired sensorium, hemiplegia, paraplegia or quadraplegia. No neurological symptoms or problems. Respiratory: Positive for smokeless tobacco use; SHERIE unable to tolerate CPAP, Negative for Asthma, COPD, Pneumonia within 6 weeks (date), URI < 2 weeks Negative for cough, wheezing or shortness of breath. Negative for hemoptysis. Negative for sleep apnea. Cardiovascular: Positive for: Hypertension Negative for chest pain, orthopnea, PND, dizziness, lightheadedness or syncope. Negative for heart murmur. Negative for palpitations or arrhythmia. Negative for h/o DVT/PE. Negative for LE edema. GI: See HPI : No history of dysuria, frequency or incontinence,, stones or chronic kidney disease Endocrine: No history of diabetes. Has not taken steroids within the past 30 days. No history of endocrinological symptoms or problems. Hematology: No history of bleeding or clotting disorder. Pt is not taking anti-coagulation or platelet medications. No history of hematological symptoms or problems. Oncology: No history of CA metastasis, chemo within 30 days, or radiotherapy within 90 days. Has not lost 10% of body wt in 6 months. No history of oncological symptoms or problems. Psych: No history of psychiatric symptoms or problems. Musculoskeletal: Negative for joint pain or swelling, back pain or muscle pain. Skin: Ne (more content not included)... Normal [facility] Rosemarie 06-05-2024 LEXIE Telephone (FVPRAD) PIPER RODRÍGUEZ Marychuy ([id number]) 1970 M Date Time Provider Department 06/05/24 DONIS CARIAS FVABELINO During your visit today, we recorded the following information about you: Donis Carias MD 06/05/2024 12:[address] CAP reviewed with patient- no mets and will proceed with surgery as scheduled. Advised lifestyle changes for fatty liver and to follow up with PCP Allergies As of Date: 06/05/2024 (No Known Allergies) Date Reviewed: 06/02/2024 Reviewed by: Abilio Gomez, LINDSAY - Fully Assessed Prescriptions as of 06/05/2024 - metroNIDAZOLE (FLAGYL) 500 mg tablet Take 1 tablet by mouth as directed. Take one tab at 6:00 p.m., another at 7:00 p.m. and the last one at 11:00 p.m., prior to surgery - neomycin 500 mg tablet Take 2 tablets by mouth as directed. Take two tabs at 6:00 p.m., 7:00 p.m. and 11:00 p.m., prior to surgery - EDARBI 80 mg tab - iv contrast (will be provided with radiology test) CT Chest ABD/PEL-Inject, intravenously, once for 1 dose.No IV access, insert saline lock prior to the beginning of sedation, infusion, injection of imaging exam. Discontinue saline lock post exam. If Pt. has a central line or IVAD, may access for administration according to line specific nursing protocol. Once exam is complete flush line and de-access according to line specific nursing protocol in the CT contrast administration guidelines link. - enteric contrast (will be provided with radiology test) For CT CHESTABD/PEL W IVCON Routine order Administer, As Directed One Time Only, via Oral, Rectal, both Oral and Rectal, Enteric Tube, Stoma or Indwelling Catheter, Enteric Contrast as designated per enteric contrast guidelines Problem List As Of Date: 06/05/2024 (None) Encounter Status:Closed by DONIS CARIAS on 06/05/24 [facility] CBC W Auto Differential pane l (Bld)on 06-02-2024 Basophils (Bld) [#/Vol] 0.06 10*3/uL Normal <0.11 [facility] Comment on above: Order Comment: Speci men Type: BLOOD SPECIMEN Ordering Facility: [facility] Address: [address] [place] [address] Performed By: #### 5 7021-8 #### [facility] CLIA [id number] [address] [place] [address] [place] Basophils/100 WBC (Bld) 1.0 % Normal [facility] Comment on above: Order Comment: Speci men Type: BLOOD SPECIMEN Ordering Facility: [facility] Address: [address] [place] [address] Performed By: #### 5 7021-8 #### [facility] CLIA [id number] [address] [place] [address] [place] Differential cell count method Nom (Bld) Auto Normal [facility] Comment on above: Order Comment: Speci men Type: BLOOD SPECIMEN Ordering Facility: [facility] Address: [address] [place] [address] Performed By: #### 5 7021-8 #### [facility] CLIA [id number] [address] [place] [address] [place] Eosinophils (Bld) [#/Vol] 0.28 10*3/uL Normal <0.46 [facility] Comment on above: Order Comment: Speci men Type: BLOOD SPECIMEN Ordering Facility: [facility] Address: [address] [place] [address] Performed By: #### 5 7021-8 #### [facility] CLIA [id number] [address] [place] [address] [place] Eosinophils/100 WBC (Bld) 4.5 % Normal [facility] Comment on above: Order Comment: Speci men Type: BLOOD SPECIMEN Ordering Facility: [facility] Address: [address] [place] [address] Performed By: #### 5 7021-8 #### [facility] CLIA [id number] [address] [place] [address] [place] Erythrocyte distribution width (RBC) [Ratio] 16.0 % High 11.5-15.0 [facility] Comment on above: Order Comment: Speci men Type: BLOOD SPECIMEN Ordering Facility: [facility] Address: [address] [place] [address] Performed By: #### 5 7021-8 #### [facility] CLIA [id number] [address] [place] [address] [place] Hematocrit (Bld) [Volume fraction] 46.1 % Normal 39.0-51.0 [facility] Comment on above: Order Comment: Speci men Type: BLOOD SPECIMEN Ordering Facility: [facility] Address: [address] [place] [address] Performed By: #### 5 7021-8 #### [facility] CLIA [id number] [address] [place] [address] [place] Hemoglobin (Bld) [Mass/Vol] 15.1 g/dL Normal 13.0-17.0 [facility] Comment on above: Order Comment: Speci men Type: BLOOD SPECIMEN Ordering Facility: [facility] Address: [address] [place] [address] Performed By: #### 5 7021-8 #### [facility] CLIA [id number] [address] [place] [address] [place] Immature granulocytes (Bld) [#/Vol] 0.03 10*3/uL Normal <0.10 [facility] Comment on above: Order Comment: Speci men Type: BLOOD SPECIMEN Ordering Facility: [facility] Address: [address] [place] [address] Performed By: #### 5 7021-8 #### [facility] CLIA [id number] [address] [place] [address] [place] Immature granulocytes/100 WBC (Bld) 0.5 % Normal [facility] Comment on above: Order Comment: Speci men Type: BLOOD SPECIMEN Ordering Facility: [facility] Address: [address] [place] [address] Performed By: #### 5 7021-8 #### [facility] CLIA [id number] [address] [place] [address] [place] Lymphocytes (Bld) [#/Vol] 1.18 10*3/uL Normal 1.00-4.00 [facility] Comment on above: Order Comment: Speci men Type: BLOOD SPECIMEN Ordering Facility: [facility] Address: [address] [place] [address] Performed By: #### 5 7021-8 #### [facility] CLIA [id number] [address] [place] [address] [place] Lymphocytes/100 WBC (Bld) 18.8 % Normal [facility] Comment on above: Order Comment: Speci men Type: BLOOD SPECIMEN Ordering Facility: [facility] Address: [address] [place] [address] Performed By: #### 5 7021-8 #### [facility] CLIA [id number] [address] [place] [address] [place] MCH (RBC) [Entitic mass] 30.3 pg Normal 26.0-34.0 [facility] Comment on above: Order Comment: Speci men Type: BLOOD SPECIMEN Ordering Facility: [facility] Address: [address] [place] [address] Performed By: #### 5 7021-8 #### [facility] CLIA [id number] [address] [place] [address] [place] MCHC (RBC) [Mass/Vol] 32.8 g/dL Normal 30.5-36.0 [facility] Comment on above: Order Comment: Speci men Type: BLOOD SPECIMEN Ordering Facility: [facility] Address: [address] [place] [address] Performed By: #### 5 7021-8 #### [facility] CLIA [id number] [address] [place] [address] [place] MCV (RBC) [Entitic vol] 92.4 fL Normal 80.0-100.0 [facility] Comment on above: Order Comment: Speci men Type: BLOOD SPECIMEN Ordering Facility: [facility] Address: [address] [place] [address] Performed By: #### 5 7021-8 #### [facility] CLIA [id number] [address] [place] [address] [place] Monocytes (Bld) [#/Vol] 0.66 10*3/uL Normal <0.87 [facility] Comment on above: Order Comment: Speci men Type: BLOOD SPECIMEN Ordering Facility: [facility] Address: [address] [place] [address] Performed By: #### 5 7021-8 #### [facility] CLIA [id number] [address] [place] [address] [place] Monocytes/100 WBC (Bld) 10.5 % Normal [facility] Comment on above: Order Comment: Speci men Type: BLOOD SPECIMEN Ordering Facility: [facility] Address: [address] [place] [address] Performed By: #### 5 7021-8 #### [facility] CLIA [id number] [address] [place] [address] [place] Neutrophils (Bld) [#/Vol] 4.06 10*3/uL Normal 1.45-7.50 [facility] Comment on above: Order Comment: Speci men Type: BLOOD SPECIMEN Ordering Facility: [facility] Address: [address] [place] [address] Performed By: #### 5 7021-8 #### [facility] CLIA [id number] [address] [place] [address] [place] Neutrophils/100 WBC (Bld) 64.7 % Normal [facility] Comment on above: Order Comment: Speci men Type: BLOOD SPECIMEN Ordering Facility: [facility] Address: [address] [place] [address] Performed By: #### 5 7021-8 #### [facility] CLIA [id number] [address] [place] [address] [place] Nucleated RBC (Bld) [#/Vol] 10*3/uL Normal <0.01 [facility] Comment on above: Order Comment: Speci men Type: BLOOD SPECIMEN Ordering Facility: [facility] Address: [address] [place] [address] Performed By: #### 5 7021-8 #### [facility] CLIA [id number] [address] [place] [address] [place] Nucleated RBC/100 WBC (Bld) [Ratio] 0.0 /100 WBC Normal [facility] Comment on above: Order Comment: Speci men Type: BLOOD SPECIMEN Ordering Facility: [facility] Address: [address] [place] [address] Performed By: #### 5 7021-8 #### [facility] CLIA [id number] [address] [place] [address] [place] Platelet mean volume (Bld) [Entitic vol] 10.1 fL Normal 9.0-12.7 [facility] Comment on above: Order Comment: Speci men Type: BLOOD SPECIMEN Ordering Facility: [facility] Address: [address] [place] [address] Performed By: #### 5 7021-8 #### [facility] CLIA [id number] [address] [place] [address] [place] Platelets (Bld) [#/Vol] 182 10*3/uL Normal 150-400 [facility] Comment on above: Order Comment: Speci men Type: BLOOD SPECIMEN Ordering Facility: [facility] Address: [address] [place] [address] Performed By: #### 5 7021-8 #### [facility] CLIA [id number] [address] [place] [address] [place] RBC (Bld) [#/Vol] 4.99 10*6/uL Normal 4.20-6.00 [facility] Comment on above: Order Comment: Speci men Type: BLOOD SPECIMEN Ordering Facility: [facility] Address: [address] [place] [address] Performed By: #### 5 7021-8 #### [facility] CLIA [id number] [address] [place] [address] [place] WBC (Bld) [#/Vol] 6.27 10*3/uL Normal 3.70-11.00 [facility] Comment on above: Order Comment: Specbasil powers Type: BLOOD SPECIMEN Ordering Facility: [facility] Address: [address] [place] [address] Performed By: #### 5 7021-8 #### [facility] CLIA [id number] [address] [place] [address] [place] CEA SerPl-mCncon 06-02-2024 Carcinoembryonic Ag [Mass/Vol] 3.5 ng/mL High <=2.9 [facility] Comment on above: Order Comment: Speci men Type: BLOOD SPECIMENOrdering Facility: [facility] Address: [address] [place] [address] Result Comment: Carc inoembryonic antigen test is used as an aid in monitoring response to treatment or recurrence in patients with established colorectal, breast, lung, prostatic, pancreatic, and ovarian carcinomas. Clinical correlation is required. The Carcinoembryonic antigen test was performed using the [employer] Extra Life Unicel DXI paramagnetic particle chemiluminescent immunoassay method. Results obtained with different assay methods or kits cannot be used interchangeably. Performed By: #### 2 039-6 ####[facility] LABCLIA [id number] [facility] [id number] [place] [address] [place] CT ABD/PEL W IVCONon 025 CT ABD/PEL W IVCON * * *Final Report* * * DATE OF EXAM: Jun 02 2024 9:41AM FVC 0530 - CT ABD/PEL W IVCON / PROCEDURE REASON: Malignant neoplasm of ascending colon (HCC) * * * * Physician Interpretation * * * * EXAMINATION: CT CHEST WITH IV CONTRAST AND CT ABDOMEN AND PELVIS WITH IV CONTRAST CLINICAL HISTORY: Ascending colon carcinoma. TECHNIQUE: CT of the chest from the thoracic inlet to the upper abdomen was performed following administration of IV contrast. CT of the abdomen and pelvis was performed using standard technique. Contrast: IV: 100 ml of Omnipaque 350 Oral: [address] Radiation dose: Integrated Dose-length product (DLP) for this visit = 1332 mGy*cm. CT Dose Reduction Employed: Automated exposure control (AEC) COMPARISON: None. RESULT: Limitations: None. Chest: Lines, tubes, and devices: None. Lung parenchyma and pleura: There is no pleural effusion. There is an approximately 5 mm nodule within the superior segment of the right lower lobe, near the right major fissure (series 3, image #104). There is an approximately 3 mm nodule seen within the superior segment of the left lower lobe, near the left major fissure (series 3, image #102). Other subcentimeter pulmonary nodules are also seen. For example, there is an approximately 3 mm subpleural nodule seen within the left lung base (series 3, image #157). There is an approximately 3 mm subpleural nodule within the right middle lobe (series 3, image #227). Atelectasis is seen within the lingula and right middle lobe. There is no pneumothorax or endobronchial lesion. Thoracic inlet, heart, and mediastinum: There are no pathologically enlarged axillary, mediastinal, or hilar lymph nodes. Incidentally noted is mild bilateral gynecomastia, left greater than right. The heart is normal in size. There is no significant pericardial effusion. Abdomen/pelvis: Liver: The liver is of low-density, when compared the spleen, suggesting fatty infiltration of the liver. More focal fatty change is seen within the liver, adjacent to the falciform ligament. There is no obvious focal discrete hepatic mass. Biliary: Gallbladder is relatively collapsed. No biliary dilation. Spleen: No mass. No splenomegaly. A tiny splenule is seen within left upper quadrant. Pancreas: There is no obvious focal discrete pancreatic mass or pancreatic ductal dilation. Adrenals:No mass. Kidneys: Mild, nonspecific bilateral perinephric fat stranding. There is no hydronephrosis or perinephric fluid collection. GI tract: There are no dilated loops of bowel to suggest obstruction. There is wall thickening and fat stranding seen involving the ascending colon, concerning for colon carcinoma. Associated prominent lymph node adjacent to the ascending colon, measuring approximately 8 mm (series 3, image #97). Early gabriela metastasis must be considered. The appendix is seen in the right lower quadrant and is within normal limits. Lymph nodes: There are prominent, less than 1 cm abdominal lymph nodes, likely reactive. Mesentery/Peritoneum: No abdominal ascites. Vasculature: Atherosclerotic calcifications are present within the abdominal aorta, without aneurysmal dilation. Pelvis: Evaluation of pelvis is limited secondary to streak artifact from bilateral total hip arthroplasty. Prominent, less than 1 cm pelvic lymph nodes are likely reactive. No pelvic mass or pelvic ascites. Bones/Soft Tissues: Mild bilateral shoulder DJD. No destructive bony lesion. Patient is status post bilateral total hip arthroplasty. Sclerosis and vacuum phenomena is seen involving the sacroiliac joint spaces, bilaterally. A few presumed bone islands are incidentally noted within the osseous structures. Degenerative changes within the spine. IMPRESSION: 1. No acute pulmonary process is identified. Subcentimeter pulmonary nodules are seen within both lungs, measuring up to 5 mm in size. Given history of colon carcinoma, continued interval surveillance recommended. No leila lymphadenopathy is seen within the chest. 2. Wall thickening and fat stranding is seen involving the ascending colon, concerning for colon carcinoma. Associated prominent lymph node adjacent to the ascending colon, measuring approximately 8 mm. Early gabriela metastasis must be considered. 3. No convincing CT evidence for distal metastatic disease within the abdomen or pelvis. 4. Fatty infiltration of the liver. [employer]: WILBER Transcribe Date/Time: Jun 04 2024 8:16A Dictated by : OSKAR JOHNSON MD This examination was interpreted and the report reviewed and electronically signed by: OSKAR JOHNSON MD on Jun 04 2024 8:28AM EST [id number] Normal [facility] CT CHEST W IVCONon 5 CT CHEST W IVCON * * *Final Report* * * DATE OF EXAM: Jun 02 2024 9:41AM FVC 0539 - CT CHEST W IVCON / PROCEDURE REASON: Malignant neoplasm of ascending colon (HCC) * * * * Physician Interpretation * * * * EXAMINATION: CT CHEST WITH IV CONTRAST AND CT ABDOMEN AND PELVIS WITH IV CONTRAST CLINICAL HISTORY: Ascending colon carcinoma. TECHNIQUE: CT of the chest from the thoracic inlet to the upper abdomen was performed following administration of IV contrast. CT of the abdomen and pelvis was performed using standard technique. Contrast: IV: 100 ml of Omnipaque 350 Oral: [address] Radiation dose: Integrated Dose-length product (DLP) for this visit = 1332 mGy*cm. CT Dose Reduction Employed: Automated exposure control (AEC) COMPARISON: None. RESULT: Limitations: None. Chest: Lines, tubes, and devices: None. Lung parenchyma and pleura: There is no pleural effusion. There is an approximately 5 mm nodule within the superior segment of the right lower lobe, near the right major fissure (series 3, image #104). There is an approximately 3 mm nodule seen within the superior segment of the left lower lobe, near the left major fissure (series 3, image #102). Other subcentimeter pulmonary nodules are also seen. For example, there is an approximately 3 mm subpleural nodule seen within the left lung base (series 3, image #157). There is an approximately 3 mm subpleural nodule within the right middle lobe (series 3, image #227). Atelectasis is seen within the lingula and right middle lobe. There is no pneumothorax or endobronchial lesion. Thoracic inlet, heart, and mediastinum: There are no pathologically enlarged axillary, mediastinal, or hilar lymph nodes. Incidentally noted is mild bilateral gynecomastia, left greater than right. The heart is normal in size. There is no significant pericardial effusion. Abdomen/pelvis: Liver: The liver is of low-density, when compared the spleen, suggesting fatty infiltration of the liver. More focal fatty change is seen within the liver, adjacent to the falciform ligament. There is no obvious focal discrete hepatic mass. Biliary: Gallbladder is relatively collapsed. No biliary dilation. Spleen: No mass. No splenomegaly. A tiny splenule is seen within left upper quadrant. Pancreas: There is no obvious focal discrete pancreatic mass or pancreatic ductal dilation. Adrenals:No mass. Kidneys: Mild, nonspecific bilateral perinephric fat stranding. There is no hydronephrosis or perinephric fluid collection. GI tract: There are no dilated loops of bowel to suggest obstruction. There is wall thickening and fat stranding seen involving the ascending colon, concerning for colon carcinoma. Associated prominent lymph node adjacent to the ascending colon, measuring approximately 8 mm (series 3, image #97). Early gabriela metastasis must be considered. The appendix is seen in the right lower quadrant and is within normal limits. Lymph nodes: There are prominent, less than 1 cm abdominal lymph nodes, likely reactive. Mesentery/Peritoneum: No abdominal ascites. Vasculature: Atherosclerotic calcifications are present within the abdominal aorta, without aneurysmal dilation. Pelvis: Evaluation of pelvis is limited secondary to streak artifact from bilateral total hip arthroplasty. Prominent, less than 1 cm pelvic lymph nodes are likely reactive. No pelvic mass or pelvic ascites. Bones/Soft Tissues: Mild bilateral shoulder DJD. No destructive bony lesion. Patient is status post bilateral total hip arthroplasty. Sclerosis and vacuum phenomena is seen involving the sacroiliac joint spaces, bilaterally. A few presumed bone islands are incidentally noted within the osseous structures. Degenerative changes within the spine. IMPRESSION: 1. No acute pulmonary process is identified. Subcentimeter pulmonary nodules are seen within both lungs, measuring up to 5 mm in size. Given history of colon carcinoma, continued interval surveillance recommended. No leila lymphadenopathy is seen within the chest. 2. Wall thickening and fat stranding is seen involving the ascending colon, concerning for colon carcinoma. Associated prominent lymph node adjacent to the ascending colon, measuring approximately 8 mm. Early gabriela metastasis must be considered. 3. No convincing CT evidence for distal metastatic disease within the abdomen or pelvis. 4. Fatty infiltration of the liver. [employer]: PSCB Transcribe Date/Time: Jun 04 2024 8:16A Dictated by : OSKAR JOHNSON MD This examination was interpreted and the report reviewed and electronically signed by: OSKAR JOHNSON MD on Jun 04 2024 8:28AM EST [id number] Normal [facility] Comprehensive metabolic 2000 panelon 06-02-2024 Albumin [Mass/Vol] 4.1 g/dL Normal 3.9-4.9 [facility] Comment on above: Order Comment: Speci men Type: BLOOD SPECIMEN Ordering Facility: [facility] Address: [address] [place] [address] Performed By: #### 2 4323-8 #### [facility] CLIA [id number] [address] [place] [address] [place] ALP [Catalytic activity/Vol] 85 U/L Normal 38-113 [facility] Comment on above: Order Comment: Speci men Type: BLOOD SPECIMEN Ordering Facility: [facility] Address: [address] [place] [address] Performed By: #### 2 4323-8 #### [facility] CLIA [id number] [address] [place] [address] [place] ALT [Catalytic activity/Vol] 175 U/L High 10-54 [facility] Comment on above: Order Comment: Speci men Type: BLOOD SPECIMEN Ordering Facility: [facility] Address: [address] [place] [address] Performed By: #### 2 4323-8 #### [facility] CLIA [id number] [address] [place] [address] [place] Anion gap [Moles/Vol] 13 mmol/L Normal 8-15 [facility] Comment on above: Order Comment: Speci men Type: BLOOD SPECIMEN Ordering Facility: [facility] Address: [address] [place] [address] Performed By: #### 2 4323-8 #### [facility] CLIA [id number] [address] [place] [address] [place] AST [Catalytic activity/Vol] 151 U/L High 14-40 [facility] Comment on above: Order Comment: Speci men Type: BLOOD SPECIMEN Ordering Facility: [facility] Address: [address] [place] [address] Performed By: #### 2 4323-8 #### [facility] CLIA [id number] [address] [place] [address] [place] Bilirubin [Mass/Vol] 0.6 mg/dL Normal 0.2-1.3 [facility] Comment on above: Order Comment: Speci men Type: BLOOD SPECIMEN Ordering Facility: [facility] Address: [address] [place] [address] Performed By: #### 2 4323-8 #### [facility] CLIA [id number] [address] [place] [address] [place] Calcium [Mass/Vol] 9.1 mg/dL Normal 8.5-10.2 [facility] Comment on above: Order Comment: Speci men Type: BLOOD SPECIMEN Ordering Facility: [facility] Address: [address] [place] [address] Performed By: #### 2 4323-8 #### [facility] CLIA [id number] [address] [place] [address] [place] Chloride [Moles/Vol] 94 mmol/L Low 98-107 [facility] Comment on above: Order Comment: Speci men Type: BLOOD SPECIMEN Ordering Facility: [facility] Address: [address] [place] [address] Performed By: #### 2 4323-8 #### [facility] CLIA [id number] [place] [address] [place] CO2 [Moles/Vol] 24 mmol/L Normal 22-30 [facility] Comment on above: Order Comment: Speci men Type: BLOOD SPECIMEN Ordering Facility: [facility] Address: [address] [place] [address] Performed By: #### 2 4323-8 #### [facility] CLIA [id number] [address] [place] [address] [place] Creatinine [Mass/Vol] 1.08 mg/dL Normal 0.73-1.22 [facility] Comment on above: Order Comment: Williani men Type: BLOOD SPECIMEN Ordering Facility: [facility] Address: [address] [place] [address] Performed By: #### 2 4323-8 #### [facility] CLIA [id number] [address] [place] [address] [facility] [place] Creatinine and Glomerular filtration rate.predicted panel (S/P/Bld) 82 mL/min/1.73m??? Normal >=60 [facility] Comment on above: Order Comment: Speci men Type: BLOOD SPECIMEN Ordering Facility: [facility] Address: [address] [place] [address] Result Comment: Dee mated Glomerular Filtration Rate (eGFR) is calculated using the 2020 CKD-EPI creatinine equation. This equation utilizes serum creatinine, sex, and age as parameters. The creatinine assay has traceable calibration to isotope dilution-mass spectrometry. Refer to KDIGO guidelines for clinical interpretation. In patients with unstable renal function, e.g. those with acute kidney injury, the eGFR may not accurately reflect actual GFR. Performed By: #### 2 4323-8 #### [facility] CLIA [id number] [address] [place] [address] [place] Glucose [Mass/Vol] 97 mg/dL Normal 74-99 [facility] Comment on above: Order Comment: Speci gio Type: BLOOD SPECIMEN Ordering Facility: [facility] Address: [address] [place] [address] Result Comment: The [place] Diabetes Association (ADA) provides guidance for cutoff values for fasting glucose and random glucose. The ADA defines fasting as no caloric intake for at least 8 hours. Fasting plasma glucose results between 100 to 125 mg/dL indicate increased risk for diabetes (prediabetes). Fasting plasma glucose results greater than or equal to 126 mg/dL meet the criteria for diagnosis of diabetes. In the absence of unequivocal hyperglycemia, results should be confirmed by repeat testing. In a patient with classic symptoms of hyperglycemia or hyperglycemic crisis, random plasma glucose results greater than or equal to 200 mg/dL meet the criteria for diagnosis of diabetes. Reference: Standards of Medical Care in Diabetes 2016, [place] Diabetes Association. Diabetes Care. 2016.39(Suppl 1). Performed By: #### 2 4323-8 #### [facility] CLIA [id number] [address] [place] [address] [place] Potassium [Moles/Vol] 5.2 mmol/L High 3.7-5.1 [facility] Comment on above: Order Comment: Ara powers Type: BLOOD SPECIMEN Ordering Facility: [facility] Address: [address] [place] [address] Performed By: #### 2 4323-8 #### [facility] CLIA [id number] [address] [place] [address] [place] Protein [Mass/Vol] 7.8 g/dL Normal 6.3-8.0 [facility] Comment on above: Order Comment: Ara powers Type: BLOOD SPECIMEN Ordering Facility: [facility] Address: [address] [place] [address] Performed By: #### 2 4323-8 #### [facility] CLIA [id number] [address] [place] [address] [place] Sodium [Moles/Vol] 131 mmol/L Low 136-144 [facility] Comment on above: Order Comment: Ara powers Type: BLOOD SPECIMEN Ordering Facility: [facility] Address: [address] [place] [address] Performed By: #### 2 4323-8 #### [facility] CLIA [id number] [address] [place] [address] [place] Urea nitrogen [Mass/Vol] 11 mg/dL Normal 9-24 [facility] Comment on above: Order Comment: Speci men Type: BLOOD SPECIMEN Ordering Facility: [facility] Address: [address] [place] [address] Performed By: #### 2 4323-8 #### [facility] CLIA [id number] OF [place] NURSING PROGon 06-02-2024 NURSING PROG HNO ID: [id number] Author: ABILIO GOMEZ RN Service: PICC Team Author Type: Registered Nurse Type: Nursing Progress Note Filed: 06/02/2024 08:53 Note Text: Radiology Service Progress Note DATE OF SERVICE: June 02, 2024 TIME: 8:53 AM PATIENT WEIGHT: 271 LBS PATIENT IDENTITY VERIFICATION COMPLETED USING TWO (2) STANDARD IDENTIFIERS: Name and Date of confirmed by patient verbally and Name and Date of confirmed by identification band. FALL SCREENING: Has the patient had 2 falls in the last year or 1 fall with injury or currently using an Ambulatory Assistive Device (Walker, Cane, Wheelchair, Crutches, etc.)? No PATIENT GENDER DATA: Male ALLERGIES: Reviewed and unchanged CONTRAST ALLERGY: No EXAM: CT -CONTRAST INDUCED NEPHROPATHY RISK FACTORS: Not applicable CREATININE: No results found for: CREAT , EGFROTH , EGFRAA P.O.C.T. RESULTS: N/A June 02, 2024 TREATMENT: N/A IV SITE: Ambulatory: A peripheral IV was started in the Right forearm with a Angio cath: 20 gauge. Via US IV SITE APPEARANCE: Clean,Dry and Intact SIGNATURE: Abilio Gomez RN PATIENT NAME: Piper Rodríguez DATE: June 02, 2024 TIME: 8:53 AM Normal [facility] CNPNon 06-01-2024 CNPN Telephone ([facility]) PIPER RODRÍGUEZ ([id number]) 1970 M Date Time Provider Department 06/01/24 DONIS CARIAS [facility] During your visit today, we recorded the following information about you: Be Cloud 06/01/2024 10:07 AM Signed 06/01 Patient called, stated that he wanted to cancel CT that was for 06/02 due to distance to appointment. Stated that will go to [facility] to gert CT done. Was wondering if able to go to [place] for CT? Jocelyn Cantrell RN 06/01/2024 11:03 AM Signed Spoke with patient. He was under the impression he could get his CT done in [place] and could have the images sent to Dr. Carias. We had a long discussion about the process to make that happen and my concerns that it would not be done in time to continue with his surgery on 06/14. He was agreeable to reschedule his CT at [place] on 06/02/24. He will get his lab work done tomorrow prior to his CT. Allergies As of Date: 06/01/2024 (No Known Allergies) Date Reviewed: 05/25/2024 Reviewed by: Jessica Bass OCCA - Fully Assessed Reason for Visit: Patient Question [5311] Prescriptions as of 06/01/2024 - metroNIDAZOLE (FLAGYL) 500 mg tablet Take 1 tablet by mouth as directed. Take one tab at 6:00 p.m., another at 7:00 p.m. and the last one at 11:00 p.m., prior to surgery - neomycin 500 mg tablet Take 2 tablets by mouth as directed. Take two tabs at 6:00 p.m., 7:00 p.m. and 11:00 p.m., prior to surgery - EDARBI 80 mg tab - iv contrast (will be provided with radiology test) CT Chest ABD/PEL-Inject, intravenously, once for 1 dose.No IV access, insert saline lock prior to the beginning of sedation, infusion, injection of imaging exam. Discontinue saline lock post exam. If Pt. has a central line or IVAD, may access for administration according to line specific nursing protocol. Once exam is complete flush line and de-access according to line specific nursing protocol in the CT contrast administration guidelines link. - enteric contrast (will be provided with radiology test) For CT CHESTABD/PEL W IVCON Routine order Administer, As Directed One Time Only, via Oral, Rectal, both Oral and Rectal, Enteric Tube, Stoma or Indwelling Catheter, Enteric Contrast as designated per enteric contrast guidelines Problem List As Of Date: 06/01/2024 (None) Encounter Status:Closed by JOCELYN CANTRELL on 06/01/24 Normal [facility] CNOVon 05-25-2024 CNOV Office Visit ([facility] ) PIPER RODRÍGUEZ ([id number]) 1970 M Date Time Provider Department 05/25/24 11:20 AM DONIS CARIAS [facility] During your visit today, we recorded the following information about you: Temperature Pulse Blood pressure Weight 97 degrees 68/minute 124/84 122.9 kg Height 1.778 m Donis Carias MD 05/25/2024 12:48 PM Signed [facility] NOTE May 25, 2024 Piper Rodríguez 54 year old This consult was requested by Dr. Edmond and my final recommendations will be communicated to the requesting health care provider by way of the shared medical record for internal providers or letter via the [employer] for external providers. Chief Complaint: colon cancer History of Present Illness: Piper Rodríguez is a 54 year old man with h/o prior ETOH use disorder who presents today for evaluation of colon cancer. Patient reports that in July 2023, he developed issues with abdominal pain in his right lower quadrant and underwent workup with CT A/P at the time, which was unremarkable. Symptoms resolved but then recurred again in mid February. He was also having hematochezia with dark red blood in his stool. He was found to be anemic and initially was getting iron transfusion but ultimately underwent colonoscopy on May 10. Significant for a hard ulcerated friable cecal mass which was extending into the appendix. Biopsy was taken and confirmed invasive adenocarcinoma moderately differentiated. No MMR status reported. He presents today for further management. He denies nausea/ vomiting weight loss or constipation. Denies any current hematochezia. Still has ongoing intermittent, mild, right lower quadrant pain which is dull in nature. His last colonoscopy prior to this was in 2019 with 2 polyps removed. Denies family history of IBD but material Grandmother had colon cancer and cholangiocarcinoma. His mother also had anal cancer. Denies smoking but does chew tobacco No past medical history on file. No past surgical history on file. Current Outpatient Medications Medication Sig Dispense Refill EDARBI 80 mg tab metroNIDAZOLE (FLAGYL) 500 mg tablet Take 1 tablet by mouth as directed. Take one tab at 6:00 p.m., another at 7:00 p.m. and the last one at 11:00 p.m., prior to surgery 3 tablet 0 neomycin 500 mg tablet Take 2 tablets by mouth as directed. Take two tabs at 6:00 p.m., 7:00 p.m. and 11:00 p.m., prior to surgery 6 tablet 0 iv contrast (will be provided with radiology test) CT Chest ABD/PEL-Inject, intravenously, once for 1 dose.No IV access, insert saline lock prior to the beginning of sedation, infusion, injection of imaging exam. Discontinue saline lock post exam. If Pt. has a central line or IVAD, may access for administration according to line specific nursing protocol. Once exam is complete flush line and de-access according to line specific nursing protocol in the CT contrast administration guidelines link. 1 Each 0 enteric contrast (will be provided with radiology test) For CT CHESTABD/PEL W IVCON Routine order Administer, As Directed One Time Only, via Oral, Rectal, both Oral and Rectal, Enteric Tube, Stoma or Indwelling Catheter, Enteric Contrast as designated per enteric contrast guidelines 1 Each 0 No current facility-administered medications for this visit. ALLERGIES No Known Allergies No family history on file. Social History Tobacco Use Smoking status: Never Smokeless tobacco: Current Types: Chew Physical Exam: BP 124/84 (BP Site: Right Arm, BP Position: Sitting, BP Cuff Size: Large Adult) Pulse 68 Temp 36.1 ?C (97 ?F) Ht 177.8 cm (5' 10 ) Wt 122.9 kg (271 lb) SpO2 97% BMI 38.88 kg/m? General Appearance: Well appearing, alert, in no acute distress, well-hydrated, well nourished. Abdomen: soft, protuberant, non distended, non tender. No palpable mass Colonoscopy 05/10/24 - Dr. Edmond @ [facility] Scan on 05/16/2024 9:34 AM by Norma Magallanes: Seth Castro operative note (path pending) [id number] Pathology Scan on 05/22/2024 8:26 AM by Be Cloud: [facility] Pathology Report 05/11/24 COLON, Biopsy, Cecum: COLONIC TISSUE WITH INVASIVE ADENOCARCINOMA, MODERATELY DIFFERENTIATED, ULCERATION NOTED 2. COLON, Biopsy, Sigmoid: LARGE TUBULAR ADENOMA (>1 CM), NEGATIVE FOR HIGH GRADE DYSPLASIA, AREAS SHOWING CAUTERY ARTIFACT ARE POSITIVE FOR ADENOMATOUS GLANDS 3. COLON, Biopsy, Descending: TUBULAR ADENOMA. NEGATIVE FOR HIGH GRADE DYSPLASIA Colonoscopy 06/03/2018 - Dr Edmond @ [facility] Scan on 05/15/2024 9:54 AM by Be Cloud: Seth Castro- Operative Report 06/03/18 Assessment Assessment and Plan: Piper Rodríguez is a 54 year old man with new diagnosis of cecal cancer. Discussed possibility of appendiceal in origin with extension into cecum. Regardless, the next step is to proceed with st (more content not included)... Normal [facility] Pathology Request for Lab Co rpon 05-10-2024 Pathology Request for Lab Bibiana Normal [facility] Comment on above: Order Comment: PATHO LOGY GI SPECIMEN Result Comment: See report. Scanned copy available in EMR. PERFORMED BY: [place] [address] PATHOLOGIST [employer]AT [employer] ETHAN SOLANO M.D. Performed By: #### P ATH TO [facility] #### [address] Ambulatory Visit Summaryon 1 06-26-2023 Ambulatory Visit Summary Ambulatory Visit Summary PIPER RODRÍGUEZ :1970 Visit Date:04/25/2024 Ambulatory Visit Instructions Your Diagnosis Epigastric pain Positive occult stool blood test Iron deficiency anemia Your Care Team Attending Physician - FLORIDALMA PATEL, Jone Galeana Primary Care Physician - Casey PATEL, Gen Referring Physician - DR. KISHA ESTEVES This Is Your Medications List Contact [...] you for choosing us for your care. [facility] Dragan 09-13-2023 L Specimen: Received: 09/14/23 Status: DEION Leblanc Num: [id number] Spec Type: Impression Subm Dr: Kisha Esteves MD Tissues: PATHPER Procedures: PATHREVIEW Age/ Patient Sex Location Account Attending Physician Piper Rodríguez O 53/M [place] [id number] Kisha Esteves MD SPEC NUM: [id number] RECD: 09/14/23 STATUS: DEION LEBLANC NUM: [id number] ANDREA: 09/13/23-[address]: Kisha Esteves MD ENTERED: 09/14/[address]: Renaldo Fung SPEC TYPE: Impression DEPT: YUEN Yaw ENTERED BY: [id number] RECV BY: [id number] ORDERED: PATHREJAMMIE ORDERED: PATHREVIEW Pathologist Review Normocytic Anemia is noted. Bone Marrow Pathology Vs. Peripheral Etiology. 25025 ---- ---- Specimen: [id number] Received: 09/14/23 Status: DEION Leblanc Num: [id number] Spec Type: Impression Subm Dr: Kisha Esteves MD Tissues: PATHKORI Procedures: BRAD ---- Patient: Piper Rodríguez [id number] (Continued) ---- Signed (signature on file) Ethan Solano MD 09/15/23 1516 Normal [facility] ED Note-Physicianon 08-05-19 ED Note-Physician [id number] 30 [id number] 0TIFF Normal [facility] RAD - CT Reporton 08-05-2023 RAD - CT Report [id number]#[id number] 0TIFF Normal [facility] Dragan 08-02-2023 L Specimen: Received: 08/03/23 Status: SOUT Req Num: [id number] Spec Type: Impression Subm Dr: Gen Pratt MD Tissues: PATHPER Procedures: PATHREVIEW Age/ Patient Sex Location Account Attending Physician Piper Rodríguez 53/M [place] [id number] Gen Pratt MD SPEC NUM: RECD: 08/03/23 STATUS: DEION LEBLANC NUM: [id number] ANDREA: 08/02/23-[address]: Gen Pratt MD ENTERED: 08/03/[address] [facility] [address]: SPEC TYPE: Impression DEPT: WILFRID Tidwell ENTERED BY: [id number] RECV BY: [id number] ORDERED: PATHREVIEW ORDERED: PATHREVIEW Pathologist Review Abnormal [...] suggested ---- Specimen: [id number] Received: 08/03/23 Status: LORNEDago Leblanc Num: [id number] Spec Type: Impression Subm Dr: Gen Pratt MD Tissues: PATHPER Procedures: PATHREVIEW ---- Patient: Piper Rodríguez [id number] (Continued) ---- Specimen: [id number] Received: 08/03/23 (Continued) Pathologist Review (Continued) Signed (signature on file) Tammy Mathew MD 08/05/23 2538 ---- Specimen: [id number] Received: 08/03/23-135 Status: DEION Leblanc Num: [id number] Spec Type: Impression Subm Dr: Gen Pratt MD Tissues: PATHPER Procedures: PATHREVIEW ---- Patient: Piper Rodríguez [id number] (Continued) ---- Specimen: [id number]- Received: 08/03/23-1349 (Continued) Pathologist Review (Continued) CPT: 65580 CBC No results available. ---- ---- Specimen: [id number] Received: 08/03/23-1350 Status: DEION Leblanc Num: [id number] Spec Type: Impression Subm Dr: Gen Pratt MD Tissues: PATHPER Procedures: PATHREVIEW ---- Patient: Piper Rodríguez [id number] (Continued) ---- Signed (signature on file) ChinKaruna Mathew MD 08/05/23 1828 Normal [facility] Physician Referralon 024 Physician Referral [id number]#1.0 0TIFF Normal [facility] T4 [facility] 02-05-2022 T4 [Mass/Vol] 9.2 ug/dL Normal 4.5-12.0 [facility] Comment on above: Performed By: #### T 4LC #### [facility] [address] [place] [address] Dr. Rayna Mathew CBC AUTO DIFFon 02-04-2022 BASO # 0.0 103/ul Normal 0.0-0.1 [facility] Comment on above: Performed By: #### C BC #### [facility] [address] [address] [address] Rayna Mathew Basophils/100 WBC (Bld) 0.7 % Normal 0.2-2.0 [facility] Comment on above: Performed By: #### C BC #### [facility] [address] [place] [address] Dr. Rayna Mathew EO # 0.4 103/ul Normal 0.0-0.7 [facility] Comment on above: Performed By: #### C BC #### [facility] [address] [place] [address] Dr. Rayna Mathew Eosinophils/100 WBC (Bld) 6.7 % Normal 0.9-7.0 [facility] Comment on above: Performed By: #### C BC #### [facility] [address] [place] [address] Dr. Rayna Mathew Erythrocyte distribution width (RBC) [Ratio] 13.5 % Normal 11.0-15.0 [facility] Comment on above: Performed By: #### C BC #### [facility] [address] [place] [address] Dr. Rayna Mathew Hematocrit (Bld) [Volume fraction] 37.2 % Critically low 42.0-54.0 [facility] Comment on above: Performed By: #### C BC #### [facility] [address] [place] [address] Dr. Rayna Mathew Hemoglobin (Bld) [Mass/Vol] 11.5 g/dL Critically low 14.0-18.0 [facility] Comment on above: Performed By: #### C BC #### [facility] [address] [place] [address] Dr. Rayna Mathew IG # 0.02 10e3/ul Normal 0.00-0.03 [facility] Comment on above: Performed By: #### C BC #### [facility] [address] [place] [address] Dr. Rayna Mathew IG % 0.3 % Normal 0.0-0.5 [facility] Comment on above: Performed By: #### C BC #### [facility] [address] [place] [address] Dr. Rayna Mathew LYMPH # 1.4 103/ul Normal 1.2-3.8 [facility] Comment on above: Performed By: #### C BC #### [facility] [address] [place] [address] Dr. Rayna Mathew Lymphocytes/100 WBC (Bld) 23.8 % Normal 20.5-60.0 [facility] Comment on above: Performed By: #### C BC #### [facility] [address] [place] [address] Dr. Rayna Mathew MANUAL DIFF REQ NO Normal [facility] Comment on above: Performed By: #### C BC #### [facility] [address] [place] [address] Dr. Rayna Mathew MCH (RBC) [Entitic mass] 27.4 pg Normal 25.9-34.0 [facility] Comment on above: Performed By: #### C BC #### [facility] [address] [place] [address] Dr. Rayna Mathew MCHC (RBC) [Mass/Vol] 30.9 g/dL Normal 29.9-35.2 [facility] Comment on above: Performed By: #### C BC #### [facility] [address] [place] [address] Dr. Rayna Mathew MCV (RBC) [Entitic vol] 88.6 fL Normal 80.0-94.0 [facility] Comment on above: Performed By: #### C BC #### [facility] [address] [place] [address] Dr. Rayna Mathew MONO # 0.6 103/ul Normal 0.3-0.8 [facility] Comment on above: Performed By: #### C BC #### [facility] [address] [place] [address] Dr. Rayna Mathew Monocytes/100 WBC (Bld) 9.2 % Normal 1.7-12.0 [facility] Comment on above: Performed By: #### C BC #### [facility] [address] [address] [address] Rayna Mathew NEUT # 3.5 103/ul Normal 1.4-6.5 [facility] Comment on above: Performed By: #### C BC #### [facility] [address] [address] [address] Rayna Mathew Neutrophils/100 WBC (Bld) 59.3 % Normal 43.0-75.0 [facility] Comment on above: Performed By: #### C BC #### [facility] [address] [address] [address] Rayna Mathew Platelet mean volume (Bld) [Entitic vol] 10.4 fL Normal 9.5-13.5 [facility] Comment on above: Performed By: #### C BC #### [facility] [address] [place] [address] Dr. Rayna Mathew PLT 182 103/ul Normal 150-450 [facility] Comment on above: Performed By: #### C BC #### [facility] [address] [address] [address] Rayna Mathew RBC 4.20 106/ul Critically low 4.70-6.10 [facility] Comment on above: Performed By: #### C BC #### [facility] [address] [place] [address] Dr. Rayna Mathew WBC 6.0 103/ul Normal 4.0-11.0 [facility] Comment on above: Performed By: #### C BC #### [facility] [address] [place] [address] Dr. Rayna Mathew FREE T3on 02-04-2022 FREE T3 3.28 pg/mlL Normal 2.18-3.98 [facility] Comment on above: Performed By: #### F T3, TSH, CMP, LIPID #### [facility] [address] [place] [address] Dr. Rayna Mathew GLYCOHEMOGLOBIN A1Con 2021 ADA RECOMMENDATION SEE BELOW Normal [facility] Comment on above: Result Comment: ADA RECOMMENDED LIMIT 4.0 - 6.0 ADA THERAPEUTIC TARGET < 7.0 ACTION SUGGESTED > 7.0 Performed By: #### A 1C #### [facility] [address] [address] [address] Rayna Mathew Glucose [Mass/Vol] 123 mg/dL Normal [facility] Comment on above: Performed By: #### A 1C #### [facility] [address] [address] [address] Rayna Mathew HbA1c (Bld) [Mass fraction] 5.9 % Normal 4.5-6.2 [facility] Comment on above: Performed By: #### A 1C #### [facility] [address] [address] [address] Rayna Mathew LIPID PROFILEon 02-04-2022 CHOL-HDL RATIO NORM SEE BELOW Normal [facility] Comment on above: Result Comment: 3.3 - 4.4 LOW RISK 4.4 - 7.1 AVERAGE RISK 7.1 - 11.0 MODERATE RISK >11.0 HIGH RISK Performed By: #### F T3, TSH, CMP, LIPID #### [facility] [address] [address] [address] Rayna Mathew Cholesterol [Mass/Vol] 158 mg/dL Normal <=200 [facility] Comment on above: Performed By: #### F T3, TSH, CMP, LIPID #### [facility] [address] [address] [address] Rayna Mathew Cholesterol in HDL [Mass/Vol] 47 mg/dL Normal 40-60 [facility] Comment on above: Performed By: #### F T3, TSH, CMP, LIPID #### [facility] [address] [address] [address] Rayna Mathew Cholesterol in LDL [Mass/Vol] 98.0 mg/dL Normal [facility] Comment on above: Performed By: #### F T3, TSH, CMP, LIPID #### [facility] [address] [address] [address] Rayna Mathew Cholesterol.total/Cho lesterol in HDL [Mass ratio] 3.4 {ratio} Normal [facility] Comment on above: Performed By: #### F T3, TSH, CMP, LIPID #### [facility] [address] [address] [address] Rayna Mathew HDL NORMAL > or = 60 mg/dl - LO W CARDIOVASCULAR RISK <40 mg/dl - HIGH CARDIOVASCULAR RISK Normal [facility] Comment on above: Performed By: #### F T3, TSH, CMP, LIPID #### [facility] [address] [address] [address] Rayna Mathew LDL CALC NORMAL SEE BELOW Normal [facility] Comment on above: Result Comment: <100 mg/dl OPTIMAL 100 - 129 mg/dl NEAR OR ABOVE OPTIMAL 130 - 159 mg/dl BORDERLINE HIGH 160 - 189 mg/dl HIGH >190 mg/dl VERY HIGH Performed By: #### F T3, TSH, CMP, LIPID #### [facility] [address] [address] [address] Rayna Mathew Triglyceride [Mass/Vol] 65 mg/dL Normal <=150 [facility] Comment on above: Performed By: #### F T3, TSH, CMP, LIPID #### [facility] [address] [address] [address] Rayna Mathew VLDL CALC 13.0 mg/dL Normal [facility] Comment on above: Performed By: #### F T3, TSH, CMP, LIPID #### [facility] [address] [address] [address] Rayna Mathew PROF 14(COMP METB)on 022 Albumin [Mass/Vol] 3.8 g/dL Normal 3.4-5.0 [facility] Comment on above: Performed By: #### F T3, TSH, CMP, LIPID #### [facility] [address] [address] [address] Rayna Mathew Albumin/Globulin [Mass ratio] 0.9 {ratio} Normal [facility] Comment on above: Performed By: #### F T3, TSH, CMP, LIPID #### [facility] [address] [address] [address] Rayna Mathew ALP [Catalytic activity/Vol] 76 U/L Normal 46-116 [facility] Comment on above: Performed By: #### F T3, TSH, CMP, LIPID #### [facility] [address] [address] [address] Rayna Mathew ALT [Catalytic activity/Vol] 109 U/L Critically high 16-63 [facility] Comment on above: Performed By: #### F T3, TSH, CMP, LIPID #### [facility] [address] [address] [address] Rayna Mathew Anion gap [Moles/Vol] 11.1 mmol/L Normal [facility] Comment on above: Performed By: #### F T3, TSH, CMP, LIPID #### [facility] [address] [address] [address] Rayna Mathew AST [Catalytic activity/Vol] 79 U/L Critically high 15-37 [facility] Comment on above: Performed By: #### F T3, TSH, CMP, LIPID #### [facility] [address] [place] [address] Dr. Rayna Mathew Bilirubin [Mass/Vol] 0.4 mg/dL Normal 0.2-1.0 [facility] Comment on above: Performed By: #### F T3, TSH, CMP, LIPID #### [facility] [address] [place] [address] Dr. Rayna Mathew Calcium [Mass/Vol] 9.0 mg/dL Normal 8.5-10.1 [facility] Comment on above: Performed By: #### F T3, TSH, CMP, LIPID #### [facility] [address] [address] [address] Rayna Mathew Chloride [Moles/Vol] 102 mmol/L Normal 98-107 [facility] Comment on above: Performed By: #### F T3, TSH, CMP, LIPID #### [facility] [address] [place] [address] Dr. Rayna Mathew CO2 [Moles/Vol] 29.5 mmol/L Normal 21.0-32.0 [facility] Comment on above: Performed By: #### F T3, TSH, CMP, LIPID #### [facility] [address] [place] [address] Dr. Rayna Mathew Creatinine [Mass/Vol] 0.96 mg/dL Normal 0.70-1.30 [facility] Comment on above: Performed By: #### F T3, TSH, CMP, LIPID #### [facility] [address] [address] [address] Rayna Mathew EGFR-AF VENEZUELAN >60 Normal >=60 [facility] Comment on above: Performed By: #### F T3, TSH, CMP, LIPID #### [facility] [address] [address] [address] Rayna Mathew EGFR-NON AF VENEZUELAN >60 Normal >=60 [facility] Comment on above: Performed By: #### F T3, TSH, CMP, LIPID #### [facility] [address] [address] [address] Rayna Mathew Globulin (S) [Mass/Vol] 4.0 g/dL Normal [facility] Comment on above: Performed By: #### F T3, TSH, CMP, LIPID #### [facility] [address] [address] [address] Rayna Mathew Glucose [Mass/Vol] 121 mg/dL Critically high 74-106 [facility] Comment on above: Performed By: #### F T3, TSH, CMP, LIPID #### [facility] [address] [address] [address] Rayna Mathew Potassium [Moles/Vol] 4.6 mmol/L Normal 3.5-5.1 [facility] Comment on above: Performed By: #### F T3, TSH, CMP, LIPID #### [facility] [address] [address] [address] Rayna Mathew Protein [Mass/Vol] 7.8 g/dL Normal 6.4-8.2 [facility] Comment on above: Performed By: #### F T3, TSH, CMP, LIPID #### [facility] [address] [address] [address] Rayna Mathew Sodium [Moles/Vol] 138 mmol/L Normal 136-145 [facility] Comment on above: Performed By: #### F T3, TSH, CMP, LIPID #### [facility] [address] [place], [place] [address] Dr. Rayna Mathew Urea nitrogen [Mass/Vol] 11.0 mg/dL Normal 7.0-18.0 [facility] Comment on above: Performed By: #### F T3, TSH, CMP, LIPID #### [facility] [address] [place], [place] [address] Dr. Rayna Mathew Urea nitrogen/Creatinine [Mass ratio] 11.5 mg/mg Normal [facility] Comment on above: Performed By: #### F T3, TSH, CMP, LIPID #### [facility] [address] [place], [place] [address] Dr. Rayna Mathew TSHon 02-04-2022 TSH 1.905 uIU/mL Normal 0.358-3.740 [facility] Comment on above: Performed By: #### F T3, TSH, CMP, LIPID #### [facility] [address] [place], [place] [address] Dr. Rayna Mathew Vital Signs Date Time Vital Sign Value Performing Clinician Facility 06-08-2024 08:34-0500 Body height 177.8 cm Pacc 1 Work Phone: [facility] 06-08-2024 08:34-0500 Body mass index (BMI) [Ratio] 38.78 kg/m2 Pacc 1 Work Phone: [facility] 06-08-2024 08:34-0500 Body temperature 98.01 [degF] Pacc 1 Work Phone: [facility] 06-08-2024 08:34-0500 Body weight 122.6 kg Pacc 1 Work Phone: [facility] 06-08-2024 08:34-0500 Diastolic blood pressure 82 mm[Hg] Pacc 1 Work Phone: [facility] 06-08-2024 08:34-0500 Heart rate 72 /min Pacc 1 Work Phone: [facility] 06-08-2024 08:34-0500 Respiratory rate 15 /min Pacc 1 Work Phone: [facility] 06-08-2024 08:34-0500 SaO2% (BldA) [Mass fraction] 98 % Pacc 1 Work Phone: [facility] 06-08-2024 08:34-0500 Systolic blood pressure 128 mm[Hg] Pacc 1 Work Phone: [facility] 05-25-2024 11:10-0500 Body height 177.8 cm Donis Carias MD Work Phone: [facility] 05-25-2024 11:10-0500 Body mass index (BMI) [Ratio] 38.88 kg/m2 Donis Carias MD Work Phone: [facility] 05-25-2024 11:10-0500 Body temperature 97 [degF] Donis Carias MD Work Phone: [facility] 05-25-2024 11:10-0500 Body weight 122.92 kg Donis Carias MD Work Phone: [facility] 05-25-2024 11:10-0500 Diastolic blood pressure 84 mm[Hg] Donis Carias MD Work Phone: [facility] 05-25-2024 11:10-0500 Heart rate 68 /min Donis Carias MD Work Phone: [facility] 05-25-2024 11:10-0500 SaO2% (BldA) [Mass fraction] 97 % Donis Carias MD Work Phone: [facility] 05-25-2024 11:10-0500 Systolic blood pressure 124 mm[Hg] Donis Carias MD Work Phone: [facility] 04-25-2024 10:21-0500 Blood Pressure Location Jone EDMOND [facility] [place] 04-25-2024 10:21-0500 Diastolic blood pressure 80 mm[Hg] Jone EDMOND [facility] [place] 04-25-2024 10:21-0500 Heart rate 68 /min Jone EDMOND [facility] [place] 04-25-2024 10:21-0500 Respiratory rate 16 /min Jone EDMOND [facility] [place] 04-25-2024 10:21-0500 Systolic blood pressure 138 mm[Hg] Jone EDMOND [facility] [place] Encounters Encounter Date Encounter Type Care Provider Facility Start: 06-19-2024 End: 06-19-2024 Telephone encounter Donis Carias MD Work Phone: Colorectal Surgery Comment on above: Patient Question Start: 06-14-2024 End: 06-16-2024 Evaluation and management of inpatient [facility] Facility:[facility] Start: 06-08-2024 End: 06-08-2024 Admission to establishment [address] [id number] Work Phone: Pre Anesthesia Start: 06-08-2024 End: 06-08-2024 ambulatory [facility] Facility:[facility] Start: 06-08-2024 End: 06-08-2024 Anesthesia consultation Pac 1 Work Phone: Pre Anesthesia Comment on above: Pre-op evaluation (P rimary Dx); BMI 38.0-38.9,adult; Smokeless tobacco use; SHERIE (obstructive sleep apnea) Start: 06-08-2024 End: 06-08-2024 Preprocedural examination done Pacc 1 Work Phone: [facility] Work Phone: Start: 06-05-2024 End: 06-05-2024 Telephone encounter Donis Carias MD Work Phone: [facility] Provider Adult Start: 06-02-2024 End: 06-02-2024 ambulatory DONIS CARIAS Facility:[facility] Start: 06-02-2024 ambulatory DONIS CARIAS Facili ty:[facility] Start: 06-02-2024 End: 06-02-2024 Subsequent hospital visit by physician [facility] Comment on above: Malignant neoplasm o f ascending colon (HCC) [C18.2] Start: 06-01-2024 End: 06-01-2024 Telephone encounter Donis Carias MD Work Phone: Colorectal Surgery Comment on above: Patient Question Start: 05-25-2024 End: 05-25-2024 ambulatory DONIS CARIAS Facility:[facility] Start: 05-25-2024 End: 05-25-2024 Patient encounter procedure Donis Carias MD Work Phone: Colorectal Surgery Comment on above: Malignant neoplasm o f ascending colon (HCC) (Primary Dx) Start: 05-10-2024 End: 05-10-2024 ambulatory Jone Edmond Facility:[facility] Start: 05-10-2024 End: 05-10-2024 ambulatory Jone EDMOND Facility:CD:[id number] Start: 04-25-2024 End: 04-25-[address] KISHA ESTEVES Facility:[facility] Start: 04-25-2024 End: 04-25-2024 Patient encounter procedure Jone EDMOND [facility] [place] Start: 09-13-2023 End: 09-13-2023 ambulatory Kisha Esteves [facility] Work Phone: Start: 09-13-2023 End: 09-13-2023 Departed Referred MD Gen Pratt Work Phone: [facility] [facility] Start: 08-03-[address] KISHA ESTEVES Facbasil lity: [place] Start: 08-02-2023 End: 08-02-2023 ambulatory Gen Pratt Facility:[facility] Start: 08-02-2023 End: 08-02-2023 Departed Referred MD Gen Pratt Work Phone: [facility] Start: 07-30-[address] KISHA Yusuf lity:[facility] [place] Start: 07-14-2022 End: 07-15-[address] GEN PRATT . Facility:[facility]1 Start: 02-10-[address] GEN PRATT . Facili ty:H1 Start: 02-08-2022 Encounter for genera l adult medical examination without abnormal findings DR GEN PRATT . The [facility] Start: 02-04-2022 End: 02-05-[address] GEN PRATT . Facility:[facility]1 Start: 02-04-2022 End: 02-05-2022 Encounter for general adult medical examination without abnormal findings DR GEN PRATT . Facility:[facility]1 Start: 08-01-[address] GEN PRATT . Facili ty:H1 Procedures Date Procedure Procedure Detail Performing Clinician Start: 06-08-2024 Ecg routine ecg w/le ast 12 lds i&r only [facility] Provider Start: 02-04-[address] BERE PRATT . Comment on above: Performed By: #### P [facility] #### [facility] [address] [place] [address] Dr. Rayna Mathew Start: 06-03-2018 Colonoscopy Jone THOMAS LL Repair of joint of l eft hip Jone NILL Repair of joint of r ight hip Jone MENDEZL Plan of Treatment Date Care Activity Detail Author Start: 06-08-2034 Urine microalbumin profile DTaP,Tdap,Td Vaccine (2 - Td or Tdap) [facility] Start: 06-16-2027 Diabetes Screening Diabetes Screening [facility] Start: 06-02-2027 Diabetes Screening Diabetes Screening [facility] Start: 06-30-2024 End: 06-30-2024 Patient encounter procedure 06/30/2024 3:40 PM EST Office Visit Colorectal Surgery [address] [place] [address] 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 [address] [address] [place] [address] Post Op Lap RHC 06/14 [place] Colorectal Surgery Comment on above: Post Op Lap RHC 06/14 [place] Start: 06-14-2024 End: 06-14-2024 Admission to same day surgery center 06/14/2024 7:30 AM EST - 06/14/2024 11:45 AM EST Surgery [facility] Operating Room [address] [place] [address] [place] [address] [place] [address] LAPAROSCOPY COLECTOMY, PARTIAL, W/ REMOVAL TERMINAL ILEUM W/ ILEOCOLOSTOMY [facility] Operating Room Comment on above: LAPAROSCOPY COLECTOMY, PARTIAL, W/ REMOV AL TERMINAL ILEUM W/ ILEOCOLOSTOMY Start: 06-14-2024 End: 06-14-2024 Laps colectomy prtl w/rmvl terminal ileum LAPAROSCOPY COLECTOMY, PARTIAL, W/ REMOVAL TERMINAL ILEUM W/ ILEOCOLOSTOMY Malignant neoplasm of ascending colon (HCC) 06/14/2024 7:30 AM EST [facility] Start: 06-14-2024 Subsequent hospital visit by physician [facility] Operating Room Comment on above: Malignant neoplasm of ascending colon (H CC) [C18.2] Start: 06-08-2024 End: 06-08-2024 Admission to same day surgery center 06/08/2024 8:50 AM EST PAT Pre Anesthesia [address] [place] [address] surgery date 06/14 Pre Anesthesia Comment on above: surgery date 06/14 Start: 06-02-2024 End: 06-02-2024 ambulatory 06/02/2024 10:00 AM EST Results Only [facility] Draw Station [address] [place] [address] [facility] Station Start: 06-02-2024 End: 06-02-2024 Patient encounter procedure Radiology Comment on above: CT CHEST/ABD/PELVIS Ct prep Abd/Pel/Chest Start: 05-25-2024 End: 08-24-2024 Carcinoembryonic Ag [Mass/volume] in Serum or Plasma CARCINOEMBRYONIC ANTIGEN Lab Routine Malignant neoplasm of ascending colon (HCC) Expected: 05/25/2024 (Approximate), Expires: 08/24/2024 [facility] Comment on above: Expected: 05/25/2024 (Approximate), Expi res: 08/24/2024 Start: 05-25-2024 End: 08-24-2024 CBC W Auto Differential panel - Blood COMPLETE BLOOD COUNT AND DIFFERENTIAL Lab Routine Malignant neoplasm of ascending colon (HCC) Expected: 05/25/2024 (Approximate), Expires: 08/24/2024 [facility] Work Phone: Comment on above: Expected: 05/25/2024 (Approximate), Expi res: 08/24/2024 Start: 05-25-2024 End: 08-24-2024 Comprehensive metabolic 2000 panel - Serum or Plasma COMPREHENSIVE METABOLIC PANEL Lab Routine Malignant neoplasm of ascending colon (HCC) Expected: 05/25/2024 (Approximate), Expires: 08/24/2024 [facility] Comment on above: Expected: 05/25/2024 (Approximate), Expi res: 08/24/2024 Start: 01-23-2024 Covid-19 Vaccine ( season) Covid-19 Vaccine ( season) [facility] Start: 01-23-2024 Influenza vaccination Influenza Vaccine (#1) [facility] Start: 2021 Pneumococcal Vaccine: 50+ (1 of 1 - PCV) Pneumococcal Vaccine: 50+ (1 of 1 - PCV) [facility] Start: 2021 Shingrix Vaccine (1 of 2) Shingrix Vaccine (1 of 2) [facility] Start: 02-18-2016 Diabetes Screening Diabetes Screening [facility] Start: 02-18-2016 Screening for malignant neoplasm of colon [facility] Start: 2006 Lipid panel Lipid Screening [facility] Start: 1990 Hepatitis B Vaccine (1 of 3 - 19+ 3-dose series) Hepatitis B Vaccine (1 of 3 - 19+ 3-dose series) [facility] Start: 1990 Urine microalbumin profile DTaP,Tdap,Td Vaccine (1 - Tdap) [facility] Start: 1989 Annual PCP Team Chronic Disease Visit Annual PCP Team Chronic Disease Visit [facility] Start: 1989 Anxiety Screening Anxiety Screening [facility] Start: 1989 BP Controlled (<130/80) BP Controlled (<130/80) [facility] Start: 1989 Depression Screening Depression Screening [facility] Start: 1989 Hepatitis C screening Hepatitis C Screening [facility] Start: 1989 HIV screening HIV Screening [facility] End: 06-24-2025 CT Abdomen and Pelvis W contrast IV CT ABD/PEL W IVCON Radiology Routine Malignant neoplasm of ascending colon (HCC) 1 Occurrences starting 05/25/2024 until 06/24/2025 [facility] Comment on above: 1 Occurrences starting 05/25/2024 until 06/24/2025 CT Abdomen and Pelvi s W contrast IV CT ABD/PEL W IVCON Radiology Routine Malignant neoplasm of ascending colon (HCC) 06/02/2024 9:41 AM EST [facility] Work Phone: End: 06-24-2025 CT Chest W contrast IV CT CHEST W IVCON Radiology Routine Malignant neoplasm of ascending colon (HCC) 1 Occurrences starting 05/25/2024 until 06/24/2025 [facility] Comment on above: 1 Occurrences starting 05/25/2024 until 06/24/2025 CT Chest W contrast IV CT CHEST W IVCON Radiology Routine Malignant neoplasm of ascending colon (HCC) 06/02/2024 9:41 AM EST [facility] ECG COMPLETE [facility] Work Phone: Comment on above: Ordered: 06/08/2024 Laps colectomy prtl w/rmvl terminal ileum LAPAROSCOPY COLECTOMY, PARTIAL, W/ REMOVAL TERMINAL ILEUM W/ ILEOCOLOSTOMY Malignant neoplasm of ascending colon (HCC) [facility] Immunizations Immunization Date Immunization Notes Care Provider Re gtz 09-19-2020 SARS-CoV-2 (COVID-19 ) [id number] vaccine Jone EDMOND [facility] [place] Comment on above: Result Comment: 2023: TPV40 08-22-2020 SARS-CoV-2 (COVID-19 ) [id number] vaccine Jone MENDEZChandra [facility] General Surgery [place] Comment on above: Result Comment: 2023: TPV40 03-15-2018 influenza virus vaccine, unspecified formulation Donis Carias MD Work Phone: [facility] Payers Date Payer Category Payer Unknown MMO MMO [employer] PPO [id number] 2023-Present [phone] [address] [place] [address] PPO [id number] 2023 Self-pay 2018 Private Health Insurance 1971 Unknown [id number] 1971 Unknown [id number] 1971 Unknown [id number] 1971 Unknown [id number] 1971 Unknown [id number] 1971 Unknown [id number] 1971 Unknown [id number] 1959 Self-pay [id number] 1959 Unknown [id number] Unknown Johanna BC/BS [id number] Unknown [id number] Unknown [id number] Unknown [id number] Social History Date Type Detail Facility [facility] Work Phone: Start: 1970 Sex Assigned At Male [facility] Start: 04-25-2024 End: 05-25-2024 Tobacco smoking status Never smoked tobacco (finding) [facility] Tobacco smoking status Smokeless tobacco user within last 30 days [facility] Start: 05-25-2024 End: 06-02-2024 Sex Assigned At Male [facility] Start: 05-25-2024 Tobacco use and exposure User of smokeless tobacco [facility] of tobacco use [facility] Start: 05-25-2024 End: 06-02-2024 History of Social function [facility] Start: 1970 Sex assigned at Not on file [facility] Start: 06-08-2024 Alcoholic beverage intake Ex-drinker (finding) [facility] Has the [employer] Ship [employer], or water Highlighter threatened to shut off services in your home in past 12Mo No [facility] (I/We) worried wheth er (my/our) food would run out before (I/we) got money to buy more. Never true [facility] Functional Status Date Assessment Result Facility 04-25-2024 Functional Status N/A [facility] [place] Clinical Notes 04-25-2024 to 06-19-2024 Telephone Encounter - Jocelyn Cantrell RN - 06/19/2024 1:47 PM ESTTelephone Encounter - Jocelyn Cantrell RN - 06/19/2024 1:47 PM ESTTelephone Encounter - Maura Casiano - 06/19/2024 1:27 PM EST Note Date & Type Note Facility 06-19-2024 Telephone encounter Note Returned call. He would like to be able to return to the office for a few hours every other day. He asked for a note to allow him to do this. His job does not require any physical activity. Note sent through My Chart. [facility] 06-19-2024 Miscellaneous Notes Returned call. He would like to be able to return to the office for a few hours every other day. He asked for a note to allow him to do this. His job does not require any physical activity. Note sent through My Chart. Patient had surgery on 06/14/24. He is asking to speak to a nurse about his restrictions and what he can and cannot do CB# [phone] documented in this encounter [facility] 06-19-2024 Telephone encounter Note Patient had surgery on 06/14/24. He is asking to speak to a nurse about his restrictions and what he can and cannot do CB# [phone] [facility] 06-16-2024 Note HNO ID: [id number] Author: DAVON BACA MD Service: Colorectal Author Type: Resident Type: Progress Notes Filed: 06/16/2024 07:18 Note Text: COLORECTAL SURGERY PROGRESS NOTE NAME: Piper Rodríguez 06/16/2024 7:16 AM ASSESSMENT AND PLAN: Piper Rodríguez is a 54 year old male with PMHx EtOH use, new diagnosis of cecal cancer who is now s/p laparoscopic right hemicolectomy 06/14. Plan: - multimodal pain regimen; tyl, robaxin, prn oxy/dil - advance to GIS, mIVF awaiting labs - stop enterg, culturelle - lovenox ppx - encourage ambulation OOB, SCD's - Dispo: RNF; likely home today if labs improved. Davon Baca MD PGY-6 Colorectal Surgery Resident Blue Team Pager: [phone] General Surgery Colorectal Surgery On-Call Pager: [phone](Weekends, Weekdays 6PM-6AM)` SUBJECTIVE: No acute issues overnight. No nausea or emesis with GIS Having flatus and BMs. Pain well controlled on oral meds OBJECTIVE: BP (!) 118/48 Pulse 65 Temp 37.2 ?C (99 ?F) (Oral) Resp 16 Ht 177.8 cm (5' 10 ) Wt 122.5 kg (270 lb) SpO2 93% BMI 38.74 kg/m? GENERAL: alert, NAD CV: Regular LUNGS: breathing comfortably ABDOMEN: soft, small amount of strikethrough from periumbilical incision EXTREMITIES: warm and well perfused Date 06/15/24 07 - 06/16/24 0659 06/16/24 0700 - 06/17/24 0659 Shift 0864-4931 9541-3101 1290-5901 24 Hour Total 3096-4842 0053-1399 2216-9652 24 Hour Total INTAKE Shift Total OUTPUT Urine 800 1500 2300 Void (ml) 800 1500 2300 # of BMs Number of BMs 1 x 1 x Shift Total 800 1500 2300 Weight (kg) 122.5 122.5 122.5 122.5 122.5 122.5 122.5 122.5 LABORATORY AND IMAGING: CBC Recent Labs 06/15/24 0442 WBC 9.78 HB 13.8 HCT 41.5 PLT 176 Metabolic Panel Recent Labs 06/15/24 0442 NA 134* K 4.8 CHLOR 100 CO2 21* CREAT 1.25* BUN 19 GLUC 105* CA 8.9 [facility] 06-15-2024 Note HNO ID: [id number] Author: GELY AKINS RN Service: Care Management Author Type: Registered Nurse Type: Care Mgt Initial Assessment Filed: 06/15/2024 11:22 Note Text: CARE MANAGEMENT: ASSESSMENT AND DISCHARGE PLAN SERVICE DATE: June 15, 2024 SERVICE TIME: 11:00am PCP: Gen Pratt MD Primary Contact: Extended Emergency Contact Information Primary Emergency Contact: Lisa Rodríguez Address: [address] [place] [address] [place] Mobile Relation: Spouse 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 with AD Completion: Yes Action: Education Provided Current Living Arrangements and Support Lives with: Spouse/significant other Type of Residence: Private Residence (House) Does the patient have to climb stairs at home?: Yes;stairs outside the home Support: Family members, Spouse/significant other How do you manage to accomplish the following: Independent: Ambulation;Bathe/Shower;Dress;Me als/Meal Prep;Going to the bathroom;Medication Management;Transportation to appointments/community Current Services/Equipment Current Post-Acute Service(s): None Discharge Planning Patient Goal(s): General wellness, Be able to go home, Independent living, Be able to drive [place] of Choice Explained: [place] of Choice Given: No Reason Not Given: No placements necessary Are you interested in bedside delivery of your medications? Yes Discharge Planning Participant(s): Patient;Spouse/significant other Patient/Family Comments: Caregiver Assessment: Caregiver is ready, willing and able to meet the patient's needs as recommended by the inter-professional team: No Caregiver needed Transport at Discharge: Transportation Arrangements: Car Destination: home Needs Prior to Discharge: Needs Prior to Discharge: None Post-Acute Discharge Plan: Met with pt at bedside. Spouse visiting at bedside. S/p R colectomy. Pt reports doing well, hoping to go home soon. Pt lives with spouse. 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 Pt reports he has good support system. Denies needs. No skilled needs identified. Spouse will transport home at discharge. CM remains available if needs arise. SIGNATURE: Gely Akins RN PATIENT NAME: Piper Rodríguez DATE: June 15, 2024 TIME: 11:20 AM [facility] 06-15-2024 Note HNO ID: [id number] Author: LASHONDA DELGADO MD Service: Colorectal Author Type: Resident Type: Progress Notes Filed: 06/15/2024 08:35 Note Text: Attestation signed by Donis Carias MD at 06/15/2024 8:18 PM I evaluated the patient and personally participated in the conley components. I agree with the resident's findings and plan with the following revisions and/or additions: Tolerating GIS and having bowel function. Home tomorrow with lovenox injection Signature: Donis Carias MD Service Date: 06/15/2024 COLORECTAL SURGERY PROGRESS NOTE Piper Rodríguez [id number] Patient Active Hospital Problem List: Malignant neoplasm of ascending colon (HCC) Date Noted: 06/14/2024 SUBJECTIVE: No acute events overnight. Pain well controlled. No nausea or vomiting. Tolerating CLD diet. Passing flatus, no BM yet Voiding spontaneously OBJECTIVE: BP (!) 112/47 Pulse (!) 57 Temp 36.5 ?C (97.7 ?F) (Oral) Resp 16 Ht 177.8 cm (5' 10 ) Wt 122.5 kg (270 lb) SpO2 99% BMI 38.74 kg/m? Body mass index is 38.74 kg/m?. GENERAL: Alert and oriented, no acute distress, cooperative. LUNGS: Non labored breathing ABDOMEN: soft, appropriately tender, non distended. WOUND: clean, dry and intact Labs: CBC, Coags, BMP, Mg, Phos Recent Labs 06/15/24 0442 WBC 9.78 HB 13.8 HCT 41.5 PLT 176 NA 134* K 4.8 CHLOR 100 CO2 21* BUN 19 CREAT 1.25* GLUC 105* CA 8.9 Liver Function, Amylase, AND Lipase I/O past 24h: Intake/Output Summary (Last 24 hours) at 06/15/2024 0829 Last data filed at 06/15/2024 0607 Gross per 24 hour Intake 2746 ml Output 1700 ml Net 1046 ml LDA: Lines, Drains, and Airways Line Duration Peripheral 06/14/24 0816 [facility] Left Antecubital 20 Gauge 1 day Peripheral 06/14/24 0902 Right Hand 20 Gauge <1 day SURGERY/PROCEDURE: Procedure(s) and Anesthesia Type: * LAPAROSCOPY COLECTOMY, PARTIAL, W/ REMOVAL TERMINAL ILEUM W/ ILEOCOLOSTOMY - General ASSESSMENT AND PLAN Piper Rodríguez is a 54 year old male with PMHx EtOH use, new diagnosis of cecal cancer who is now s/p laparoscopic right hemicolectomy 06/14. Plan: - multimodal pain regimen; tyl, robaxin, prn oxy/dil - advance to GIS, mIVF given slight elevation in Cr - ontinue entereg, culturelle - lovenox ppx - encourage ambulation OOB, SCD's - Dispo: OWEN Delgado MD General Surgery, PGY2 Please contact [phone] during the days for any questions. For nights and weekends, please contact [phone]. [facility] 06-14-2024 Note HNO ID: [id number] Author: ANNABEL THACKER APRN.STATISTICAL MODELER Service: Nursing Author Type: Nurse Chief Substation Operator Type: Anesthesia Procedure Notes Filed: 06/14/2024 09:22 Note Text: ANESTHESIOLOGY PROCEDURE NOTE PIV General Information Procedure Start Time/Medication Administration: 06/14/2024 9:02 AM Procedure End Time: 06/14/2024 9:02 AM Patient Location: OR Staffing STATISTICAL MODELER: Annabel Thacker APRN.STATISTICAL MODELER Performed by: STATISTICAL MODELER Preparation Sterility Preparation: hand hygiene performed prior to procedure, surgical cap used, mask used, skin prep agent completely dried prior to procedure Site Prep: chlorhexidine Procedure Details Indication: need for IV access Needle Size/Type: 20 gauge angiocath Orientation: Right Location: Hand Imaging Guidance Used: No SIGNATURE: Annabel Thacker APRN.STATISTICAL MODELER PATIENT NAME: Piper Rodríguez DATE: June 14, 2024 TIME: 9:20 AM CSN: [id number] [facility] 06-14-2024 Note HNO ID: [id number] Author: ANNABEL THACKER APRN.STATISTICAL MODELER Service: Nursing Author Type: Nurse Chief Substation Operator Type: Anesthesia Procedure Notes Filed: 06/14/2024 09:20 Note Text: ANESTHESIOLOGY PROCEDURE NOTE Airway General Information Procedure Start Time/Medication Administration: 06/14/2024 8:59 AM Procedure End Time: 06/14/2024 8:59 AM Patient location during procedure: OR 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, care seo team lead and patient Staffing Anesthesiologist: Ila Mortensen MD STATISTICAL MODELER: Annabel Thacker APRN.STATISTICAL MODELER Performed by: STATISTICAL MODELER Indications and Patient Condition Indications for airway management: anesthesia Preoxygenated: yes anesthesia circuit Patient position: sniffing Method: asleep Difficult Mask: No (2 hand) Airway Accessory: oral airway (10cm) Final Airway Details Final airway type: endotracheal airway Final Endotracheal Airway: ETT Cuffed: yes Successful intubation technique: video laryngoscopy Devices used: intubating stylet and Padilla Endotracheal tube insertion site: oral Blade: Zeenat Blade size: #4 ETT size (mm): 7.5 Measured from: lips Measurement (cm): 22 Placement verified by: chest auscultation Cormack-Lehane Classification: grade IIa - partial view of glottis Number of attempts at approach: 1 Failed airway: no Unrecognized esophageal intubation: no Airway not difficult SIGNATURE: Annabel Thacker APRN.STATISTICAL MODELER PATIENT NAME: Piper Rodríguez DATE: June 14, 2024 TIME: 9:19 AM CSN: [id number] [facility] 06-08-2024 Instructions Aubrey Baer PA-C - 06/08/2024 8:55 AM EST PATIENT PREOPERATIVE INSTRUCTIONS Donis Carias MD has scheduled you for your procedure at this surgery center: [facility]: [phone] --[phone] [address]. Please check in on the 1st floor at registration desk 6. Please read below carefully for your personalized instructions. Dietary Restrictions: - Follow bowel prep instructions: clear liquids need to be stopped 2 hours prior to schedule arrival at facility Medications: Unless instructed differently below, stay on all of your medications until your surgery. Approved medications to take the morning of surgery with a sip of water: EDARBI If you start any new medications after today's visit, please contact the surgeon's office. Blood Thinning Medications: - Stop NSAIDS (Ibuprofen, Advil, Aleve, Motrin, Celebrex, Mobic, etc.) 7 days before surgery, as directed by your surgeon. - Stop Aspirin 7 days before surgery, as directed by your surgeon. - Stop Vitamin E, ALL multi-vitamins, herbals and dietary supplements 7 days before surgery. - You may take Tylenol (Acetaminophen) or any of your pain medications that do not contain aspirin or NSAIDS as needed. Important Reminders: - Candy, mints, and tobacco products are NOT permitted the morning of surgery. - Hearing aids, dentures and glasses may be worn the morning of surgery. - NO jewelry, body piercings, makeup, hairpins or contacts are to be worn the day of surgery. If you develop symptoms such as a fever, cold, or flu, or have other changes to your health within TWO DAYS of scheduled surgery or the morning of surgery, please contact the surgery center above. Personal Belongings: -Please have photo ID and insurance cards. -If you do not have a copy of advance directives on file with us, please bring a copy with you on the day of surgery. - Leave ALL valuables and money at home or with family members. For Outpatient Procedures: - YOU MUST HAVE A RESPONSIBLE CURRICULUM DEVELOPMENT MANAGER TAKE YOU HOME. A METAL BURNISHER OR GMAT TUTOR CANNOT BE MADE A RESPONSIBLE CURRICULUM DEVELOPMENT MANAGER. - We recommend that a responsible person stays with you overnight to take care of you. - You cannot stay in a hotel alone after outpatient surgery. You will not be permitted to have your surgery, if you do not have someone to take care of you. Arrival Time for Surgery: - The Surgery Center or hospital where you are having surgery will call the afternoon before surgery (or Wednesday for Wednesday surgery) with a scheduled arrival time. - If you have not heard by 4 pm, please contact the surgery center above. Please be aware that emergency situations arise, which may delay or change your surgical time. If this happens, we will notify you as soon as possible and regret any inconvenience. If you already have an Advance Directive, please fax a copy to [phone] or email to for it to be added to your chart. If you do not have an Advance Directive, you can find the appropriate form and more information at [email or web address]. We recommend that you complete the Advance Directive form found on the website and bring it with you the day of your surgery. It can be witnessed and scanned into your chart that day documented in this encounter [facility] 06-08-2024 History and physical note HISTORY AND PHYSICAL EXAMINATION SERVICE DATE: 06/08/2024 SERVICE TIME: 8:45 AM PRIMARY CARE PHYSICIAN: Gen Pratt MD REASON FOR VISIT: Piper Rodríguez is a 54 year old male who is scheduled for LAPAROSCOPY COLECTOMY, PARTIAL, W/ REMOVAL TERMINAL ILEUM W/ ILEOCOLOSTOMY at the request of Dr. Donis Carias for consultation. My final recommendation will be communicated back to the requesting physician by way of shared medical record or letter. Assessment Patient has the following medical conditions which may affect sarina-operative course: BMI 38.0-38.9,adult Assessment: BMI 38.78 HTN (hypertension) Assessment: managed with Edarbbasil, PCP following Stable, BP in office 06/08/2024: 128/82 Smokeless tobacco use Assessment: daily use of smokeless tobacco , chew SHERIE (obstructive sleep apnea) Assessment: h/o positive sleep study Unable to tolerate CPAP Matias Activity Status Index: METS: Walk a block or two on level ground (2.75 METs) Climb a flight of stairs or walk up a hill (5.50 METs) DASI Score: 8.25 Patient denies any chest pain or undue shortness of breath with the above physical activity. Clinical Frailty Scale: 2. Well STOP-Bang Score: Snores loudly Has or is being treated for high blood pressure BMI greater than 35 kg/m^2 Patient over 50 years old Male patient Denies feeling tired, fatigued, or sleepy during the daytime Has not been observed to stop breathing or choking/gasping during sleep Does not have a large neck STOP-Bang Score: 5 (+SHERIE, unable to tolerate CPAP ) [id number] Score: Age: <65 Sex: male CHF history: No Hypertension history: Yes Stroke/TIA/thromboembolism history: No Vascular disease history: No Diabetes history: No [id number] Score: 1 ARISCAT Score: Age: 51-80 Preoperative SpO2: >=96% Respiratory infection in the last month: No Preoperative anemia: No Duration of surgery: >3 hrs Emergency procedure: No ARISCAT Score: ANESTHESIA FINDINGS: Intubation History: No prior intubation Significant Anesthesia Considerations: none Airway History: No prior intubation I - PHYSICAL EVALUATION AIRWAY Patient intubated: No. Tracheostomy tube not present Mallampati: IV. TM distance: >3 FB. Mouth opening: adequate. Short neck: yes. Thick neck: yes Ramos present: no Lip Bite Test: II Microretrognathia/Micronagthia/R ecessed Chin: No DENTAL Dental findings: teeth intact. II - ANESTHESIA PLAN Beta Connie Monitoring Plan Post Procedure Analgesic Plan Prepared for surgery: This patient is optimally prepared for surgery. CONSULTS: Patient does not require consults for optimization at this time. The Following Tests/Procedures Have Been Initiated: Orders Placed This Encounter ECG (IN OFFICE) ECG COMPLETE Order Comments: Ordered by an unspecified provider Planned Anesthetic: Per anesthesia choice Subjective CHIEF COMPLAINT: Malignant neoplasm of ascending colon (HCC) [C18.2] HPI: Patient is a 54 year old male here for PACC. Patient has been seen and evaluated by colorectal surgeon due to hard ulcerated friable cecal mass extending to appendix per colonoscopy Apr. Prior to colonoscopy, c/o RLQ abdominal pain, hematochezia with anemia. Patient has been recommended for procedure listed above; electing to proceed. REVIEW OF SYSTEMS: General: No weight loss, malaise or fevers. Neuro: No history of TIA's, stroke, LOGISTICS ANALYTICS MANAGER tumor, impaired sensorium, hemiplegia, paraplegia or quadraplegia. No neurological symptoms or problems. Respiratory: Positive for smokeless tobacco use; SHERIE unable to tolerate CPAP, Negative for Asthma, COPD, Pneumonia within 6 weeks (date), URI < 2 weeks Negative for cough, wheezing or shortness of breath. Negative for hemoptysis. Negative for sleep apnea. Cardiovascular: Positive for: Hypertension Negative for chest pain, orthopnea, PND, dizziness, lightheadedness or syncope. Negative for heart murmur. Negative for palpitations or arrhythmia. Negative for h/o DVT/PE. Negative for LE edema. GI: See HPI : No history of dysuria, frequency or incontinence,, stones or chronic kidney disease Endocrine: No history of diabetes. Has not taken steroids within the past 30 days. No history of endocrinological symptoms or problems. Hematology: No history of bleeding or clotting disorder. Pt is not taking anti-coagulation or platelet medications. No history of hematological symptoms or problems. Oncology: No history of CA metastasis, chemo within 30 days, or radiotherapy within 90 days. Has not lost 10% of body wt in 6 months. No history of oncological symptoms or problems. Psych: No history of psychiatric symptoms or problems. Musculoskeletal: Negative for joint pain or swelling, back pain or muscle pain. Skin: Negative for lesions, rash and itching. The patient has the following: ACTIVE PROBLEM LIST Bmi 38.0-38.9,Adult Htn (Hypertension) Smokeless Tobacco Use Sherie (Obstructive Sleep Apnea) Covid Immunization Dates Overdue - Covid-19 Vaccine () Overdue since 01/23/2024 09/19/2020 Imm Admin: COVID-19 original vaccine, full dose, monovalent (MODERNA) 08/22/2020 Imm Admin: COVID-19 original vaccine, full dose, monovalent (MODERNA) PAST MEDICAL HISTORY Diagnosis Date BMI 38.0-38.9,adult Colon cancer (HCC) HTN (hypertension) PAST SURGICAL HISTORY Procedure Laterality Date PAST SURGICAL HISTORY OF Bilateral hip arthroplasty (2018, 2020) PAST SURGICAL HISTORY OF 04/2024 colonoscopy (2018) History reviewed. No pertinent family history. Social History Tobacco Use Smoking status: Never Smokeless tobacco: Current Types: Chew Vaping Use Vaping status: Never Used Substance Use Topics Alcohol use: Not Currently Drug use: Not Currently Prior to Admission medications as of 06/08/24 0914 Medication Sig Last Dose Taking metroNIDAZOLE (FLAGYL) 500 mg tablet Take 1 tablet by mouth as directed. Take one tab at 6:00 p.m., another at 7:00 p.m. and the last one at 11:00 p.m., prior to surgery Taking Yes neomycin 500 mg tablet Take 2 tablets by mouth as directed. Take two tabs at 6:00 p.m., 7:00 p.m. and 11:00 p.m., prior to surgery Taking Yes EDARBI 80 mg tab Taking Yes iv contrast (will be provided with radiology test) CT Chest ABD/PEL-Inject, intravenously, once for 1 dose.No IV access, insert saline lock prior to the beginning of sedation, infusion, injection of imaging exam. Discontinue saline lock post exam. If Pt. has a central line or IVAD, may access for administration according to line specific nursing protocol. Once exam is complete flush line and de-access according to line specific nursing protocol in the CT contrast administration guidelines link. Unknown enteric contrast (will be provided with radiology test) For CT CHESTABD/PEL W IVCON Routine order Administer, As Directed One Time Only, via Oral, Rectal, both Oral and Rectal, Enteric Tube, Stoma or Indwelling Catheter, Enteric Contrast as designated per enteric contrast guidelines Unknown No medication comments found. ALLERGIES No Known Allergies Objective PHYSICAL EXAM: VITALS: BP 128/82 Pulse 72 Temp (Src) 98 (Temporal) Resp 15 Ht 5' 10 (1.78m) Wt 270 lb 4.5 oz (122.6kg) SpO2 98% BMI 38.78 kg/(m^2). General: Alert and oriented Skin: Normal color, no rash, no lesions. HEENT: EOM, pupils equal, round and reactive. Cardiovascular: Normal S1 & S2, no rubs, murmurs or gallops. No JVD. Pulse regular. Lungs: Normal breath sounds, no wheezes or crackles. Abdomen: Soft, non-tender, no rigidity. Extremities: No deformity, no edema or tenderness, no joint swelling or clubbing. Neurological: Normal cognition and motor skills. Pulses: Carotid and radial pulses normal +2. Diagnostic tests reviewed for today's visit: Lab Value Units Date High Low HB 15.1 g/dL 06/02/2024 17.0 13.0 HCT 46.1 % 06/02/2024 51.0 39.0 WBC 6.27 k/uL 06/02/2024 11.00 3.70 PLT 182 k/uL 06/02/2024 400 150 NA 131 mmol/L 06/02/2024 144 136 K 5.2 mmol/L 06/02/2024 5.1 3.7 GLUC 97 mg/dL 06/02/2024 99 74 BUN 11 mg/dL 06/02/2024 24 9 CREAT 1.08 mg/dL 06/02/2024 1.22 0.73 PTSEC No results within date range. INR No results within date range. APTT No results within date range. ALT 175 U/L 06/02/2024 54 10 AST 151 U/L 06/02/2024 40 14 TBILI 0.6 mg/dL 06/02/2024 1.3 0.2 TSH No results within date range. EKG completed in office today Date: 06/08/2024 Preliminary result: Normal Sinus Rhythm Instructions Given to Patient: Instructions located in the after visit summary. Patient given verbal and written preop instructions and voices comprehension and compliance. SIGNATURE: Aubrey Baer PA-C PATIENT NAME: Piper Rodríguez DATE: 06/08/2024 TIME: 9:18 AM [facility] 06-08-2024 History and physical note HISTORY AND PHYSICAL EXAMINATION SERVICE DATE: 06/08/2024 SERVICE TIME: 8:45 AM PRIMARY CARE PHYSICIAN: Gen Pratt MD REASON FOR VISIT: Piper Rodríguez is a 54 year old male who is scheduled for LAPAROSCOPY COLECTOMY, PARTIAL, W/ REMOVAL TERMINAL ILEUM W/ ILEOCOLOSTOMY at the request of Dr. Donis Carias for consultation. My final recommendation will be communicated back to the requesting physician by way of shared medical record or letter. Assessment Patient has the following medical conditions which may affect sarina-operative course: BMI 38.0-38.9,adult Assessment: BMI 38.78 HTN (hypertension) Assessment: managed with Edarbi, PCP following Stable, BP in office 06/08/2024: 128/82 Smokeless tobacco use Assessment: daily use of smokeless tobacco , chew SHERIE (obstructive sleep apnea) Assessment: h/o positive sleep study Unable to tolerate CPAP Matias Activity Status Index: METS: Walk a block or two on level ground (2.75 METs) Climb a flight of stairs or walk up a hill (5.50 METs) DASI Score: 8.25 Patient denies any chest pain or undue shortness of breath with the above physical activity. Clinical Frailty Scale: 2. Well STOP-Bang Score: Snores loudly Has or is being treated for high blood pressure BMI greater than 35 kg/m^2 Patient over 50 years old Male patient Denies feeling tired, fatigued, or sleepy during the daytime Has not been observed to stop breathing or choking/gasping during sleep Does not have a large neck STOP-Bang Score: 5 (+SHERIE, unable to tolerate CPAP ) [id number] Score: Age: <65 Sex: male CHF history: No Hypertension history: Yes Stroke/TIA/thromboembolism history: No Vascular disease history: No Diabetes history: No [id number] Score: 1 ARISCAT Score: Age: 51-80 Preoperative SpO2: >=96% Respiratory infection in the last month: No Preoperative anemia: No Duration of surgery: >3 hrs Emergency procedure: No ARISCAT Score: ANESTHESIA FINDINGS: Intubation History: No prior intubation Significant Anesthesia Considerations: none Airway History: No prior intubation I - PHYSICAL EVALUATION AIRWAY Patient intubated: No. Tracheostomy tube not present Mallampati: IV. TM distance: >3 FB. Mouth opening: adequate. Short neck: yes. Thick neck: yes Ramos present: no Lip Bite Test: II Microretrognathia/Micronagthia/R ecessed Chin: No DENTAL Dental findings: teeth intact. II - ANESTHESIA PLAN Beta Connie Monitoring Plan Post Procedure Analgesic Plan Prepared for surgery: This patient is optimally prepared for surgery. CONSULTS: Patient does not require consults for optimization at this time. The Following Tests/Procedures Have Been Initiated: Orders Placed This Encounter ECG (IN OFFICE) ECG COMPLETE Order Comments: Ordered by an unspecified provider Planned Anesthetic: Per anesthesia choice Subjective CHIEF COMPLAINT: Malignant neoplasm of ascending colon (HCC) [C18.2] HPI: Patient is a 54 year old male here for PACC. Patient has been seen and evaluated by colorectal surgeon due to hard ulcerated friable cecal mass extending to appendix per colonoscopy Apr. Prior to colonoscopy, c/o RLQ abdominal pain, hematochezia with anemia. Patient has been recommended for procedure listed above; electing to proceed. REVIEW OF SYSTEMS: General: No weight loss, malaise or fevers. Neuro: No history of TIA's, stroke, LOGISTICS ANALYTICS MANAGER tumor, impaired sensorium, hemiplegia, paraplegia or quadraplegia. No neurological symptoms or problems. Respiratory: Positive for smokeless tobacco use; SHERIE unable to tolerate CPAP, Negative for Asthma, COPD, Pneumonia within 6 weeks (date), URI < 2 weeks Negative for cough, wheezing or shortness of breath. Negative for hemoptysis. Negative for sleep apnea. Cardiovascular: Positive for: Hypertension Negative for chest pain, orthopnea, PND, dizziness, lightheadedness or syncope. Negative for heart murmur. Negative for palpitations or arrhythmia. Negative for h/o DVT/PE. Negative for LE edema. GI: See HPI : No history of dysuria, frequency or incontinence,, stones or chronic kidney disease Endocrine: No history of diabetes. Has not taken steroids within the past 30 days. No history of endocrinological symptoms or problems. Hematology: No history of bleeding or clotting disorder. Pt is not taking anti-coagulation or platelet medications. No history of hematological symptoms or problems. Oncology: No history of CA metastasis, chemo within 30 days, or radiotherapy within 90 days. Has not lost 10% of body wt in 6 months. No history of oncological symptoms or problems. Psych: No history of psychiatric symptoms or problems. Musculoskeletal: Negative for joint pain or swelling, back pain or muscle pain. Skin: Negative for lesions, rash and itching. The patient has the following: ACTIVE PROBLEM LIST Bmi 38.0-38.9,Adult Htn (Hypertension) Smokeless Tobacco Use Sherie (Obstructive Sleep Apnea) Covid Immunization Dates Overdue - Covid-19 Vaccine ( season) Overdue since 01/23/2024 09/19/2020 Imm Admin: COVID-19 original vaccine, full dose, monovalent (MODERNA) 08/22/2020 Imm Admin: COVID-19 original vaccine, full dose, monovalent (MODERNA) PAST MEDICAL HISTORY Diagnosis Date BMI 38.0-38.9,adult Colon cancer (HCC) HTN (hypertension) PAST SURGICAL HISTORY Procedure Laterality Date PAST SURGICAL HISTORY OF Bilateral hip arthroplasty (2018, 2020) PAST SURGICAL HISTORY OF 04/2024 colonoscopy (2018) History reviewed. No pertinent family history. Social History Tobacco Use Smoking status: Never Smokeless tobacco: Current Types: Chew Vaping Use Vaping status: Never Used Substance Use Topics Alcohol use: Not Currently Drug use: Not Currently Prior to Admission medications as of 06/08/24 0914 Medication Sig Last Dose Taking metroNIDAZOLE (FLAGYL) 500 mg tablet Take 1 tablet by mouth as directed. Take one tab at 6:00 p.m., another at 7:00 p.m. and the last one at 11:00 p.m., prior to surgery Taking Yes neomycin 500 mg tablet Take 2 tablets by mouth as directed. Take two tabs at 6:00 p.m., 7:00 p.m. and 11:00 p.m., prior to surgery Taking Yes EDARBI 80 mg tab Taking Yes iv contrast (will be provided with radiology test) CT Chest ABD/PEL-Inject, intravenously, once for 1 dose.No IV access, insert saline lock prior to the beginning of sedation, infusion, injection of imaging exam. Discontinue saline lock post exam. If Pt. has a central line or IVAD, may access for administration according to line specific nursing protocol. Once exam is complete flush line and de-access according to line specific nursing protocol in the CT contrast administration guidelines link. Unknown enteric contrast (will be provided with radiology test) For CT CHESTABD/PEL W IVCON Routine order Administer, As Directed One Time Only, via Oral, Rectal, both Oral and Rectal, Enteric Tube, Stoma or Indwelling Catheter, Enteric Contrast as designated per enteric contrast guidelines Unknown No medication comments found. ALLERGIES No Known Allergies Objective PHYSICAL EXAM: VITALS: BP 128/82 Pulse 72 Temp (Src) 98 (Temporal) Resp 15 Ht 5' 10 (1.78m) Wt 270 lb 4.5 oz (122.6kg) SpO2 98% BMI 38.78 kg/(m^2). General: Alert and oriented Skin: Normal color, no rash, no lesions. HEENT: EOM, pupils equal, round and reactive. Cardiovascular: Normal S1 & S2, no rubs, murmurs or gallops. No JVD. Pulse regular. Lungs: Normal breath sounds, no wheezes or crackles. Abdomen: Soft, non-tender, no rigidity. Extremities: No deformity, no edema or tenderness, no joint swelling or clubbing. Neurological: Normal cognition and motor skills. Pulses: Carotid and radial pulses normal +2. Diagnostic tests reviewed for today's visit: Lab Value Units Date High Low HB 15.1 g/dL 06/02/2024 17.0 13.0 HCT 46.1 % 06/02/2024 51.0 39.0 WBC 6.27 k/uL 06/02/2024 11.00 3.70 PLT 182 k/uL 06/02/2024 400 150 NA 131 mmol/L 06/02/2024 144 136 K 5.2 mmol/L 06/02/2024 5.1 3.7 GLUC 97 mg/dL 06/02/2024 99 74 BUN 11 mg/dL 06/02/2024 24 9 CREAT 1.08 mg/dL 06/02/2024 1.22 0.73 PTSEC No results within date range. INR No results within date range. APTT No results within date range. ALT 175 U/L 06/02/2024 54 10 AST 151 U/L 06/02/2024 40 14 TBILI 0.6 mg/dL 06/02/2024 1.3 0.2 TSH No results within date range. EKG completed in office today Date: 06/08/2024 Preliminary result: Normal Sinus Rhythm Instructions Given to Patient: Instructions located in the after visit summary. Patient given verbal and written preop instructions and voices comprehension and compliance. SIGNATURE: Aubrey Baer PA-C PATIENT NAME: Piper Rodríguez DATE: 06/08/2024 TIME: 9:18 AM documented in this encounter [facility] 06-05-[address] CAP reviewed with patient- no mets and will proceed with surgery as scheduled. Advised lifestyle changes for fatty liver and to follow up with PCP [facility] 06-05-[address] CAP reviewed with patient- no mets and will proceed with surgery as scheduled. Advised lifestyle changes for fatty liver and to follow up with PCP documented in this encounter [facility] 06-02-2024 History of Presen t illness Narrative Radiology Service Progress Note PATIENT NAME: Piper Rodríguez DATE OF SERVICE: June 02, 2024 TIME: 9:36 AM PATIENT IDENTITY VERIFICATION COMPLETED USING TWO (2) IDENTIFIERS: Name and Date of confirmed by patient verbally and Name and Date of confirmed by identification band. FALL SCREENING: Has the patient had 2 falls in the last year or 1 fall with injury or currently using an Ambulatory Assistive Device (Walker, Cane, Wheelchair, Crutches, etc.)? No PATIENT GENDER DATA: Male PATIENT RELEVANT IMPLANT DATA REVIEWED: Not Applicable PATIENT PRESENTS WITH AN IMPLANTABLE OR ATTACHED PICKING BELT OPERATOR: No RADIOLOGY DEPARTMENT: CT; Exam(s) Completed: Chest Abdomen Pelvis PERIPHERAL IV DATA: Site assessment: Clean,Dry and Intact, Site disposition Discontinued SIGNED BY: MILADY Joiner) June 02, 2024 9:36 AM documented in this encounter [facility] 06-02-2024 Note HNO ID: [id number] Author: EVENS NELSON RT(R) Service: Radiology Author Type: Technologist Type: Progress Notes Filed: 06/02/2024 09:36 Note Text: Radiology Service Progress Note PATIENT NAME: Piper Rodríguez DATE OF SERVICE: June 02, 2024 TIME: 9:36 AM PATIENT IDENTITY VERIFICATION COMPLETED USING TWO (2) IDENTIFIERS: Name and Date of confirmed by patient verbally and Name and Date of confirmed by identification band. FALL SCREENING: Has the patient had 2 falls in the last year or 1 fall with injury or currently using an Ambulatory Assistive Device (Walker, Cane, Wheelchair, Crutches, etc.)? No PATIENT GENDER DATA: Male PATIENT RELEVANT IMPLANT DATA REVIEWED: Not Applicable PATIENT PRESENTS WITH AN IMPLANTABLE OR ATTACHED PICKING BELT OPERATOR: No RADIOLOGY DEPARTMENT: CT; Exam(s) Completed: Chest Abdomen Pelvis PERIPHERAL IV DATA: Site assessment: Clean,Dry and Intact, Site disposition Discontinued SIGNED BY: MILADY Joiner) June 02, 2024 9:36 AM [facility] 06-02-2024 Nurse Note Radiology Service Progress Note DATE OF SERVICE: June 02, 2024 TIME: 8:53 AM PATIENT WEIGHT: 271 LBS PATIENT IDENTITY VERIFICATION COMPLETED USING TWO (2) STANDARD IDENTIFIERS: Name and Date of confirmed by patient verbally and Name and Date of confirmed by identification band. FALL SCREENING: Has the patient had 2 falls in the last year or 1 fall with injury or currently using an Ambulatory Assistive Device (Walker, Cane, Wheelchair, Crutches, etc.)? No PATIENT GENDER DATA: Male ALLERGIES: Reviewed and unchanged CONTRAST ALLERGY: No EXAM: CT -CONTRAST INDUCED NEPHROPATHY RISK FACTORS: Not applicable CREATININE: No results found for: CREAT , EGFROTH , EGFRAA P.O.C.T. RESULTS: N/A June 02, 2024 TREATMENT: N/A IV SITE: Ambulatory: A peripheral IV was started in the Right forearm with a Angio cath: 20 gauge. Via US IV SITE APPEARANCE: Clean,Dry and Intact SIGNATURE: Abilio Gomez RN PATIENT NAME: Piper Rodríguez DATE: June 02, 2024 TIME: 8:53 AM [facility] 06-02-2024 Nurse Note Radiology Service Progress Note DATE OF SERVICE: June 02, 2024 TIME: 8:53 AM PATIENT WEIGHT: 271 LBS PATIENT IDENTITY VERIFICATION COMPLETED USING TWO (2) STANDARD IDENTIFIERS: Name and Date of confirmed by patient verbally and Name and Date of confirmed by identification band. FALL SCREENING: Has the patient had 2 falls in the last year or 1 fall with injury or currently using an Ambulatory Assistive Device (Walker, Cane, Wheelchair, Crutches, etc.)? No PATIENT GENDER DATA: Male ALLERGIES: Reviewed and unchanged CONTRAST ALLERGY: No EXAM: CT -CONTRAST INDUCED NEPHROPATHY RISK FACTORS: Not applicable CREATININE: No results found for: CREAT , EGFROTH , EGFRAA P.O.C.T. RESULTS: N/A June 02, 2024 TREATMENT: N/A IV SITE: Ambulatory: A peripheral IV was started in the Right forearm with a Angio cath: 20 gauge. Via US IV SITE APPEARANCE: Clean,Dry and Intact SIGNATURE: Abilio Gomez RN PATIENT NAME: Piper Rodríguez DATE: June 02, 2024 TIME: 8:53 AM documented in this encounter [facility] 06-01-2024 Telephone encounter Note Spoke with patient. He was under the impression he could get his CT done in [place] and could have the images sent to Dr. Carias. We had a long discussion about the process to make that happen and my concerns that it would not be done in time to continue with his surgery on 06/14. He was agreeable to reschedule his CT at [place] on 06/02/24. He will get his lab work done tomorrow prior to his CT. [facility] 06-01-2024 Miscellaneous Notes Spoke with patient. He was under the impression he could get his CT done in [place] and could have the images sent to Dr. Carias. We had a long discussion about the process to make that happen and my concerns that it would not be done in time to continue with his surgery on 06/14. He was agreeable to reschedule his CT at [place] on 06/02/24. He will get his lab work done tomorrow prior to his CT. 06/01 Patient called, stated that he wanted to cancel CT that was for 06/02 due to distance to appointment. Stated that will go to [facility] to gert CT done. Was wondering if able to go to [place] for CT? documented in this encounter [facility] 06-01-2024 Telephone encounter Note 06/01 Patient called, stated that he wanted to cancel CT that was for 06/02 due to distance to appointment. Stated that will go to [facility] to gert CT done. Was wondering if able to go to [place] for CT? [facility] 05-25-2024 History of Presen t illness Narrative [facility] May 25, 2024 Piper Rodríguez 54 year old This consult was requested by Dr. Edmond and my final recommendations will be communicated to the requesting health care provider by way of the shared medical record for internal providers or letter via the [employer] for external providers. Chief Complaint: colon cancer History of Present Illness: Piper Rodríguez is a 54 year old man with h/o prior ETOH use disorder who presents today for evaluation of colon cancer. Patient reports that in July 2023, he developed issues with abdominal pain in his right lower quadrant and underwent workup with CT A/P at the time, which was unremarkable. Symptoms resolved but then recurred again in mid February. He was also having hematochezia with dark red blood in his stool. He was found to be anemic and initially was getting iron transfusion but ultimately underwent colonoscopy on May 10. Significant for a hard ulcerated friable cecal mass which was extending into the appendix. Biopsy was taken and confirmed invasive adenocarcinoma moderately differentiated. No MMR status reported. He presents today for further management. He denies nausea/ vomiting weight loss or constipation. Denies any current hematochezia. Still has ongoing intermittent, mild, right lower quadrant pain which is dull in nature. His last colonoscopy prior to this was in 2019 with 2 polyps removed. Denies family history of IBD but material Grandmother had colon cancer and cholangiocarcinoma. His mother also had anal cancer. Denies smoking but does chew tobacco No past medical history on file. No past surgical history on file. Current Outpatient Medications Medication Sig Dispense Refill EDARBI 80 mg tab metroNIDAZOLE (FLAGYL) 500 mg tablet Take 1 tablet by mouth as directed. Take one tab at 6:00 p.m., another at 7:00 p.m. and the last one at 11:00 p.m., prior to surgery 3 tablet 0 neomycin 500 mg tablet Take 2 tablets by mouth as directed. Take two tabs at 6:00 p.m., 7:00 p.m. and 11:00 p.m., prior to surgery 6 tablet 0 iv contrast (will be provided with radiology test) CT Chest ABD/PEL-Inject, intravenously, once for 1 dose.No IV access, insert saline lock prior to the beginning of sedation, infusion, injection of imaging exam. Discontinue saline lock post exam. If Pt. has a central line or IVAD, may access for administration according to line specific nursing protocol. Once exam is complete flush line and de-access according to line specific nursing protocol in the CT contrast administration guidelines link. 1 Each 0 enteric contrast (will be provided with radiology test) For CT CHESTABD/PEL W IVCON Routine order Administer, As Directed One Time Only, via Oral, Rectal, both Oral and Rectal, Enteric Tube, Stoma or Indwelling Catheter, Enteric Contrast as designated per enteric contrast guidelines 1 Each 0 No current facility-administered medications for this visit. ALLERGIES No Known Allergies No family history on file. Social History Tobacco Use Smoking status: Never Smokeless tobacco: Current Types: Chew Physical Exam: BP 124/84 (BP Site: Right Arm, BP Position: Sitting, BP Cuff Size: Large Adult) Pulse 68 Temp 36.1 C (97 F) Ht 177.8 cm (5' 10 ) Wt 122.9 kg (271 lb) SpO2 97% BMI 38.88 kg/m General Appearance: Well appearing, alert, in no acute distress, well-hydrated, well nourished. Abdomen: soft, protuberant, non distended, non tender. No palpable mass Colonoscopy 05/10/24 - Dr. Edmond @ [facility] Scan on 05/16/2024 9:34 AM by Norma Magallanes: [facility] operative note (path pending) [id number] Pathology Scan on 05/22/2024 8:26 AM by Be Cloud: [facility] Pathology Report 05/11/24 COLON, Biopsy, Cecum: COLONIC TISSUE WITH INVASIVE ADENOCARCINOMA, MODERATELY DIFFERENTIATED, ULCERATION NOTED 2. COLON, Biopsy, Sigmoid: LARGE TUBULAR ADENOMA (>1 CM), NEGATIVE FOR HIGH GRADE DYSPLASIA, AREAS SHOWING CAUTERY ARTIFACT ARE POSITIVE FOR ADENOMATOUS GLANDS 3. COLON, Biopsy, Descending: TUBULAR ADENOMA. NEGATIVE FOR HIGH GRADE DYSPLASIA Colonoscopy 06/03/2018 - Dr Edmond @ [facility] Scan on 05/15/2024 9:54 AM by Be Cloud: [facility]- Operative Report 06/03/18 Assessment Assessment and Plan: Piper Rodríguez is a 54 year old man with new diagnosis of cecal cancer. Discussed possibility of appendiceal in origin with extension into cecum. Regardless, the next step is to proceed with staging CT chest abdomen pelvis as well as CEA. If there is no evidence of metastatic disease, I explained we will proceed with a laparoscopic/robotic right hemicolectomy. Surgical steps, recovery and risk-benefit of right colectomy was reviewed in detail. If mets or locally advanced, discussed might need chemo first. All questions answered CT chest and pelvis CEA F/u MMR status Will tentatively schedule for surgery in May pending imaging study. Bowel prep Preop labs PAT Medical Decision Making: Data Reviewed: Tests & Documents Reviewed/ordered: Review of prior notes from Dr. Mendez Review of Pathology Review of Labs: CBC, BMP Review of Procedures / Tests: Colonoscopy I have independently interpreted: n/a I have discussed Piper Rodríguez's treatment plan and/or results with patient and his , lisa. Risk of morbidity, mortality and/or complications of treatment plan: yasmeen Carias MD Colorectal Surgery documented in this encounter [facility] 05-25-2024 Note HNO ID: [id number] Author: DONIS CARIAS MD Service: ? Author Type: Physician Type: Progress Notes Filed: 05/25/2024 12:48 Note Text: COLORECTAL SURGERY CLINIC NOTE May 25, 2024 Piper Rodríguez 54 year old This consult was requested by Dr. Edmond and my final recommendations will be communicated to the requesting health care provider by way of the shared medical record for internal providers or letter via the [employer] for external providers. Chief Complaint: colon cancer History of Present Illness: Piper Rodríguez is a 54 year old man with h/o prior ETOH use disorder who presents today for evaluation of colon cancer. Patient reports that in July 2023, he developed issues with abdominal pain in his right lower quadrant and underwent workup with CT A/P at the time, which was unremarkable. Symptoms resolved but then recurred again in mid February. He was also having hematochezia with dark red blood in his stool. He was found to be anemic and initially was getting iron transfusion but ultimately underwent colonoscopy on May 10. Significant for a hard ulcerated friable cecal mass which was extending into the appendix. Biopsy was taken and confirmed invasive adenocarcinoma moderately differentiated. No MMR status reported. He presents today for further management. He denies nausea/ vomiting weight loss or constipation. Denies any current hematochezia. Still has ongoing intermittent, mild, right lower quadrant pain which is dull in nature. His last colonoscopy prior to this was in 2019 with 2 polyps removed. Denies family history of IBD but material Grandmother had colon cancer and cholangiocarcinoma. His mother also had anal cancer. Denies smoking but does chew tobacco No past medical history on file. No past surgical history on file. Current Outpatient Medications Medication Sig Dispense Refill EDARBI 80 mg tab metroNIDAZOLE (FLAGYL) 500 mg tablet Take 1 tablet by mouth as directed. Take one tab at 6:00 p.m., another at 7:00 p.m. and the last one at 11:00 p.m., prior to surgery 3 tablet 0 neomycin 500 mg tablet Take 2 tablets by mouth as directed. Take two tabs at 6:00 p.m., 7:00 p.m. and 11:00 p.m., prior to surgery 6 tablet 0 iv contrast (will be provided with radiology test) CT Chest ABD/PEL-Inject, intravenously, once for 1 dose.No IV access, insert saline lock prior to the beginning of sedation, infusion, injection of imaging exam. Discontinue saline lock post exam. If Pt. has a central line or IVAD, may access for administration according to line specific nursing protocol. Once exam is complete flush line and de-access according to line specific nursing protocol in the CT contrast administration guidelines link. 1 Each 0 enteric contrast (will be provided with radiology test) For CT CHESTABD/PEL W IVCON Routine order Administer, As Directed One Time Only, via Oral, Rectal, both Oral and Rectal, Enteric Tube, Stoma or Indwelling Catheter, Enteric Contrast as designated per enteric contrast guidelines 1 Each 0 No current facility-administered medications for this visit. ALLERGIES No Known Allergies No family history on file. Social History Tobacco Use Smoking status: Never Smokeless tobacco: Current Types: Chew Physical Exam: BP 124/84 (BP Site: Right Arm, BP Position: Sitting, BP Cuff Size: Large Adult) Pulse 68 Temp 36.1 ?C (97 ?F) Ht 177.8 cm (5' 10 ) Wt 122.9 kg (271 lb) SpO2 97% BMI 38.88 kg/m? General Appearance: Well appearing, alert, in no acute distress, well-hydrated, well nourished. Abdomen: soft, protuberant, non distended, non tender. No palpable mass Colonoscopy 05/10/24 - Dr. Edmond @ [facility] on 05/16/2024 9:34 AM by Norma Magallanes: [facility] operative note (path pending) [id number] Pathology Scan on 05/22/2024 8:26 AM by Be Cloud: [facility] Pathology Report 05/11/24 COLON, Biopsy, Cecum: COLONIC TISSUE WITH INVASIVE ADENOCARCINOMA, MODERATELY DIFFERENTIATED, ULCERATION NOTED 2. COLON, Biopsy, Sigmoid: LARGE TUBULAR ADENOMA (>1 CM), NEGATIVE FOR HIGH GRADE DYSPLASIA, AREAS SHOWING CAUTERY ARTIFACT ARE POSITIVE FOR ADENOMATOUS GLANDS 3. COLON, Biopsy, Descending: TUBULAR ADENOMA. NEGATIVE FOR HIGH GRADE DYSPLASIA Colonoscopy 06/03/2018 - Dr Edmond @ [facility] Scan on 05/15/2024 9:54 AM by Be Cloud: [facility]- Operative Report 06/03/18 Assessment Assessment and Plan: Piper Rodríguez is a 54 year old man with new diagnosis of cecal cancer. Discussed possibility of appendiceal in origin with extension into cecum. Regardless, the next step is to proceed with staging CT chest abdomen pelvis as well as CEA. If there is no evidence of metastatic disease, I explained we will proceed with a laparoscopic/robotic right hemicolectomy. Surgical steps, recovery and risk-benefit of right colectomy was reviewed in detail. If mets or locally advanced, (more content not included)... [facility] 04-25-2024 Note General Surgery Offi ce/Clinic Note [...] Tobacco Use:. Smokele (more content not included)... [facility] Comment on above: Result Comment: Elec tronically Signed By: FLORIDALMA PATEL, Jone Bell\Date and Time Signed: 04/25/24 10:59 EST Evaluation + Plan note No data available for this section [facility] General Surgery [place] Evaluation note No assessment inform ation available [facility] Work Phone: Evaluation note Diagnosis Malignant neoplasm of ascending colon (HCC)- Primary Malignant neoplasm of ascending colon [facility] [place] [facility] Diagnosis Malignant neoplasm of ascending colon (HCC) Malignant neoplasm of ascending colon Malignant neoplasm of ascending colon (HCC) Malignant neoplasm of ascending colon [facility] [place] [facility] Diagnosis Pre-op evaluation- Primary Preoperative examination, unspecified BMI 38.0-38.9,adult Body Mass Index 38.0-38.9, adult Smokeless tobacco use Tobacco use disorder SHERIE (obstructive sleep apnea) Obstructive sleep apnea (adult) (pediatric) Malignant neoplasm of ascending colon (HCC) Malignant neoplasm of ascending colon * Assessment & Plan Note - Aubrey Baer PA-C - 06/08/2024 9:17 AM EST Associated Problem(s): SHERIE (obstructive sleep apnea) Assessment: h/o positive sleep study Unable to tolerate CPAP * Assessment & Plan Note - Aubrey Baer PA-C - 06/08/2024 9:16 AM EST Associated Problem(s): Smokeless tobacco use Assessment: daily use of smokeless tobacco , chew * Assessment & Plan Note - Aubrey Baer PA-C - 06/08/2024 9:15 AM EST Associated Problem(s): HTN (hypertension) Assessment: managed with [facility], PCP following Stable, BP in office 06/08/2024: 128/82 * Assessment & Plan Note - Aubrey aBer PA-C - 06/08/2024 9:15 AM EST Associated Problem(s): BMI 38.0-38.9,adult Assessment: BMI 38.78 documented in this encounter [facility] Discharge instructions No data available for this section [facility] General Surgery [place] Progress note No data available for this section [facility] General Surgery [place] Reason for referral (narrative)* Outpatient Procedure (Routine) - New Request Specialty Diagnoses / Procedures Referred By Contphu t Referred To [facility] Diagnoses Pre-op evaluation Procedures ECG COMPLETE ECG ROUTINE ECG W/LEAST 12 LDS W/I&R Aubrey Baer PA-C [address] [facility] [place] [address] [facility] [address] [place] [address] Referral ID Status Reason Start Date Expiration Date Visits Requested Visits Authorized [id number] New Request Auto-Generat ed Referral 06/08/2024 06/08/2025 1 1 [facility] Summary Purpose Family History No Family History Records Found No data available for this section No Family History Records FoundNo Family History Records FoundNo Family History Records FoundNo Family History Records Found Advance Directives Advance Directive Response Recorded Date/ Time Advance Directives No September 13 12:27pm Reason for Referral Specialty Diagnoses / Procedures Referred By Contac t Referred To Contact CT IMAGING Diagnoses Malignant neoplasm of ascending colon (HCC) Procedures CT CHEST W IVCON DIAGNOSTIC COMPUTED TOMOGRAPHY THORAX W/[place] [address] [place] [address] [place] [address] Referral ID Status Reason Start Date Expiration Date Visits Requested Visits Authorized [id number] Authorized Auto-Generat ed Referral 05/25/2024 06/24/2025 1 1 Specialty Diagnoses / Procedures Referred By Contac t Referred To Contact CT IMAGING Diagnoses Malignant neoplasm of ascending colon (HCC) Procedures CT ABD/PEL W IVCON CT ABD & PELVIS [place] [address] [place] [address] [place] [address] Referral ID Status Reason Start Date Expiration Date Visits Requested Visits Authorized [id number] Authorized Auto-Generat ed Referral 05/25/2024 06/24/2025 1 1 Additional Source Comments (unrecognized sect ion and content) No Status Records FoundNo Status Records FoundNo Status Records FoundNo Status Records FoundNo Status Records Found INFORMATION SOURCE (unrecogn ized section and content) DATE CREATED AUTHOR 07/18/2022 [facility] DATE CREATED AUTHOR AUTHOR'S ORGANIZ ATION 05/17/2024 [facility] DATE CREATED AUTHOR AUTHOR'S ORGANIZ ATION 05/25/2024 [facility] DATE CREATED AUTHOR AUTHOR'S ORGANIZ ATION 06/18/2024 [facility] DATE CREATED AUTHOR AUTHOR'S ORGANIZ ATION 06/20/2024 [facility] Care Teams (unrecognized sec tion and content) Team Status: Inactive Member Role Status Dates Gen Pratt MD Attending Provider Active Sta rt: August 02, 2023 End: August 02, 2023 Team Status: Inactive Member Role Status Dates Kisha Esteves MD Attending Provider Active St art: September 13, 2023 End: September 13, 2023 Silo Man Relationship Specialty Start Date End Date Gen Pratt MD [address] [place] [address] PCP - General Family Medicine 05/15/24 Jone Edmond MD [address] [place] [id number] General Surgery 05/15/24 Silo Man Relationship Specialty Start Date End Date Gen Pratt MD [address] [place] [address] PCP - General Family Medicine 05/15/24 Jone Edmond MD [address] [place] [address] General Surgery 05/15/24 Silo Man Relationship Specialty Start Date End Date Gen Pratt MD [address] [place] [address] PCP - General Family Medicine 05/15/24 Jone Edmond MD [address] [address] General Surgery 05/15/24 Silo Man Relationship Specialty Start Date End Date Gen Pratt MD [address] [place] [address] PCP - General Family Medicine 05/15/24 Jone Edmond MD [address] [address] General Surgery 05/15/24 Silo Man Relationship Specialty Start Date End Date Gen Pratt MD [address] [place] [address] PCP - General Family Medicine 05/15/24 Jone Edmond MD [address] [address] General Surgery 05/15/24 Silo Man Relationship Specialty Start Date End Date Gen Pratt MD [address] [place] [address] PCP - General Family Medicine 05/15/24 Jone Edmond MD [address] [place] [address] General Surgery 05/15/24 Silo Man Relationship Specialty Start Date End Date Gen Pratt MD [address] [place] [address] PCP - General Family Medicine 05/15/24 Jone Edmond MD [address] [place] [address] General Surgery 05/15/24 Goals (unrecognized section and content) Goals may be documented in a n alternate section No data available for this section Source Comments (unrecognize d section and content) In the event this informatio n is protected by the Federal Confidentiality of Alcohol and Drug Abuse Patient Records regulations: The Federal rules restrict any use of the information to criminally investigate or prosecute any alcohol or drug abuse patient.[facility] event this information is protected by the Federal Confidentiality of Alcohol and Drug Abuse Patient Records regulations: The Federal rules restrict any use of the information to criminally investigate or prosecute any alcohol or drug abuse patient.[facility] the event this information is protected by the Federal Confidentiality of Alcohol and Drug Abuse Patient Records regulations: The Federal rules restrict any use of the information to criminally investigate or prosecute any alcohol or drug abuse patient.[facility] the event this information is protected by the Federal Confidentiality of Alcohol and Drug Abuse Patient Records regulations: The Federal rules restrict any use of the information to criminally investigate or prosecute any alcohol or drug abuse patient.[facility] the event this information is protected by the Federal Confidentiality of Alcohol and Drug Abuse Patient Records regulations: The Federal rules restrict any use of the information to criminally investigate or prosecute any alcohol or drug abuse patient.[facility] the event this information is protected by the Federal Confidentiality of Alcohol and Drug Abuse Patient Records regulations: The Federal rules restrict any use of the information to criminally investigate or prosecute any alcohol or drug abuse patient.[facility] the event this information is protected by the Federal Confidentiality of Alcohol and Drug Abuse Patient Records regulations: The Federal rules restrict any use of the information to criminally investigate or prosecute any alcohol or drug abuse patient.[facility] Reason for Visit (unrecogniz ed section and content) Reason Comments Colon Cancer Reason Comments Patient Question Specialty Diagnoses / Procedures Referred By Contac t Referred To Contact CT IMAGING Diagnoses Malignant neoplasm of ascending colon (HCC) Procedures CT CHEST W IVCON DIAGNOSTIC COMPUTED TOMOGRAPHY THORAX W/[place] [address] [place] [id number] [facility] [place] [address] Referral ID Status Reason Start Date Expiration Date V isits Requested Visits Authorized [id number] Closed Auto-Generate d Referral 05/25/2024 06/24/2025 1 1 Reason Comments Pre-Op Exam FOR RECORDS PERTAINING TO PATIENTS WHO ARE [...] BE BASED ON THE PRIMARY CLINICAL RECORDS. [employer] [facility]. provides no warranty or guarantee of the accuracy or completeness of information in this document.
== END 2024-06-20 16:15 | disposition home or self-care (01) ==
LOC: ER 15:53
PROVIDERS: Emergency Provider Emergency Medicine; PCP Family Medicine
DX: T81.31XA Disruption of external operation (surgical) wound, not elsewhere classified, initial encounter (principal); F17.290 Nicotine dependence, other tobacco product, uncomplicated; Z90.49 Acquired absence of other specified parts of digestive tract
CPT/HCPCS: 99282

== ENCOUNTER 2024-07-03 10:54 | Outpatient (OUT) | payer OTHER, SELFPAY ==
--- OUTSIDE RECORDS SUMMARY | 2024-07-03 11:15 | XMS_ITS | CCD ---
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 Name Role Phone CASEY ., DR BLEVINS [...] ., DR BLEVINS Consulting Unavailable MD Gen Peña Attending Provider MD Kisha Esteves Attending Provider Gen Peña Primary Care Physician [phone] Gen Peña Attending Unavailable Gen Peña Admitting Unavailable Danielito, Kisha Attending Unavailable Danielito, Kisha Admitting Unavailable Jone Hedrick Admitting Unavailable Jone Hedrick Attending Unavailable Gen Peña MD Primary Care Provider Jone Hedrick MD Unavailable Jone HEDRICK Attending Unavailable DANIELITO, KISHA Referring Unavailable Jone HEDRICK Attending Unavailable DANIELITO, KISHA Referring Unavailable NILJone Artis R Attending Unavailable Jone HEDRICK R Attending Unavailable Lazaro MONTOYA, Chelle Orta Unavailable [phone] Yemi PATEL, [facility] Unavailable [phone] DONIS CARIAS Admitting Unavailable DONIS CARIAS Attending Unavailable HOY, GEN M Primary Care Unavailable KECRISTOBALINRO, AJARATU Referring Unavailable JOSSIE PEÑALAS M Primary Care Unavailable KESHINRO, AJARATU Referring Unavailable JOSSIE PEÑALAS M Primary Care Unavailable KESHINRO, AJARATU Referring Unavailable HOLeroy, GEN M Primary Care Unavailable HOLeroy, GEN M Primary Care Unavailable KESHINRO, AJARATU Admitting Unavailable AUSTIN, AJARATU Attending Unavailable BENOITRO, AJARATU Referring Unavailable JOSEPH BRAGG Attending Unavailable CASEY, GEN M Primary Care Unavailable KESHINRO, AJARATU Referring Unavailable GEN PEÑA M Primary Care Unavailable AUSTIN, KATYARATU Attending Unavailable JONE HEDRICK Referring Unavailable GEN PEÑA M Primary Care Unavailable Allergies Allergy Classification Reported Allergen(s) Allergy Type Date of Onset Reaction(s) Facility (1 source) No Known Medication Allergies; Translations: [No Known Medication Allergies] Propensity to adverse reactions (disorder) [facility] Repository Medications Current Medications Medication Drug Class(es) Dates Sig (Normalized) Sig (Original) acetaminophen 500 mg oral tablet (7 sources) Start: 5 take 2 tablets by mouth every six hours acetaminophen (TYLENOL) 500 mg tablet Take 2 tablets by mouth every 6 hours. 50 tablet 06/16/2024 Active Acidophilus Probiotic Blend (1 source) Start: 5 take 1 capsule by mouth once daily Acidophilus Probiotic Blend 1 cap(s), Oral, Daily, Refill(s) 0 Start Date: 06/28/24 Status: Ordered azilsartan medoxomil 80 mg oral tablet (16 sources) Angiotensin 2 Receptor Connie Start: 9 EDARBI 80 mg tab 05/25/2019 Active 0.4 ml enoxaparin sodium 100 mg/ml prefilled syringe (7 sources) Low Molecular Weight Heparin Start: 5 End: 5 inject 40 mg by subcutaneous injection every twenty-four hours enoxaparin (LOVENOX) 40 mg/0.4 mL Inject 0.4 mL subcutaneously every 24 hours for 21 days. 8.4 mL 06/16/2024 07/07/2024 Active enteric contrast (will be provided with radiology test) (13 sources) Start: 5 enteric contrast (will be provided with radiology test) Indications: Malignant neoplasm of ascending colon (HCC) For CT CHESTABD/PEL W IVCON Routine order Administer, As Directed One Time Only, via Oral, Rectal, both Oral and Rectal, Enteric Tube, Stoma or Indwelling Catheter, Enteric Contrast as designated per enteric contrast guidelines 1 Each 05/25/2024 Active iv contrast (will be provided with radiology test) (13 sources) Start: 5 iv contrast (will be provided with radiology [...] 1 Each 05/25/2024 Active lactobacillus rhamnosus gg [id number] unt oral capsule (7 sources) Start: 5 End: 5 take 1 capsule by mouth once daily lactobacillus rhamnosus (CULTURELLE) 10 billion cell capsule Take 1 capsule by mouth once daily. 30 capsule 06/16/2024 07/16/2024 Active methocarbamol 500 mg oral tablet (5 sources) Muscle Relaxant Start: 5 take 1 tablet by mouth three times daily methocarbamol (ROBAXIN) 500 mg tablet Take 1 tablet by mouth three times a day. 20 tablet 06/23/2024 Active metroNIDAZOLE 500 mg oral tablet (6 sources) Nitroimidazole Antimicrobial Start: 5 metroNIDAZOLE (FLAGYL) 500 mg tablet Indications: Malignant neoplasm of ascending colon (HCC) Take 1 tablet by mouth as directed. Take one tab at 6:00 p.m., another at 7:00 p.m. and the last one at 11:00 p.m., prior to surgery 3 tablet 05/25/2024 Active neomycin sulfate 500 mg oral tablet (6 sources) Aminoglycoside Antibacterial Start: 5 neomycin 500 mg tablet Indications: Malignant neoplasm of ascending colon (HCC) Take 2 tablets by mouth as directed. Take two tabs at 6:00 p.m., 7:00 p.m. and 11:00 p.m., prior to surgery 6 tablet 05/25/2024 Active ondansetron 8 mg oral tablet (1 source) Serotonin-3 Receptor Antagonist Start: 5 take 1 tablet by mouth every eight hours as needed ondansetron (ZOFRAN) 8 mg tablet Take 1 tablet by mouth every 8 hours as needed for nausea/vomiting. 90 tablet 2 06/29/2024 Active oxyCODONE hydrochloride 5 mg oral tablet (3 sources) Opioid Agonist Start: 5 End: 5 take 1 tablet by mouth every six hours as needed oxyCODONE IR (ROXICODONE) 5 mg immediate release tablet Indications: Post-op pain Take 1 tablet by mouth every 6 hours as needed for up to 7 days. 25 tablet 06/16/2024 06/23/2024 Active pantoprazole 40 mg delayed release oral tablet (2 sources) Proton Pump Inhibitor Start: 4 take 1 tablet by mouth once daily Protonix 40 mg Tab-DR 40 mg = 1 tab(s), Oral, Daily, Refills(s) 0 Start Date: 04/18/24 Status: Ordered prochlorperazine 10 mg oral tablet (1 source) Phenothiazine Start: 5 take 1 tablet by mouth every six hours as needed prochlorperazine (COMPAZINE) 10 mg tablet Take 1 tablet by mouth every 6 hours as needed. 100 tablet 2 06/29/2024 Active sucralfate 1000 mg oral tablet (2 sources) Aluminum Complex Start: 4 Carafate 1 gram Tab 1 gm = 1 tab(s), Oral, QIDACHS, Refills(s) 0 Start Date: 04/17/24 Status: Ordered Problems Active Problems Problem Classification Problem Date Documented Da te Episodic/Chronic Abdominal pain (8 sources) Epigastric pain; Translations: [Epigastric pain] Onset: 04-25-2024 Episodic Alcohol-related disorders (3 sources) History of alcohol abuse 04-17-2024 Chronic Cancer of colon (15 sources) Malignant tumor of ascending colon; Translations: [Malignant neoplasm of ascending colon] Onset: 06-14-2024 05-22-2024 Chronic Cancer of colon (1 source) Personal history of other malignant neoplasm of large intestine; Translations: [History of colon cancer] Onset: 06-21-2024 Episodic Complications of surgical procedures or medical care (9 sources) Wound dehiscence; Translations: [Disruption of wound, unspecified, initial encounter] Onset: 06-21-2024 Resolved: 06-23-2024 06-23-2024 Episodic Deficiency and other anemia (3 sources) Pancytopenia 04-17-2024 Chronic Deficiency and other anemia (4 sources) Iron deficiency anemia; Translations: [Iron deficiency anemia, unspecified] Onset: 04-25-2024 Episodic Deficiency and other anemia (3 sources) Anemia 04-17-2024 Episodic Disorders of lipid metabolism (4 sources) Hyperlipidemia, unspecified; Translations: [Hyperlipidemia] Onset: 02-08-2022 04-17-2024 Chronic Essential hypertension (12 sources) Essential (primary) hypertension; Translations: [Essential hypertension] Onset: 02-08-2022 04-17-2024 Chronic Neoplasms of unspecified nature or uncertain behavior (2 sources) Neoplasm of uncertain behavior of colon 05-12-2024 Episodic Other gastrointestinal disorders (3 sources) Intestinal malabsorption 04-17-2024 Chronic Other gastrointestinal disorders (1 source) Abnormal feces; Translations: [Other fecal abnormalities] Onset: 04-25-2024 Episodic Other gastrointestinal disorders (3 sources) Occult blood in stools 04-17-2024 Episodic Other gastrointestinal disorders (2 sources) Mass of colon 05-12-2024 Episodic Other liver diseases (3 sources) Steatosis of liver 04-17-2024 Chronic Other nervous system disorders (1 source) Other acute postprocedural pain; Translations: [Post-op pain] Onset: 06-14-2024 Episodic Other nutritional; endocrine; and metabolic disorders (12 sources) Body mass index 30+ - obesity; Translations: [Body mass index (BMI) 38.0-38.9, adult] Onset: 06-08-2024 04-25-2024 Chronic Other nutritional; endocrine; and metabolic disorders (3 sources) Morbid obesity 04-17-2024 Chronic Residual codes; unclassified (4 sources) Obstructive sleep apnea (adult) (pediatric); Translations: [OBSTRUCTIVE SLEEP APNEA] Onset: 07-14-2022 Chronic Residual codes; unclassified (3 sources) Sleep apnea 04-17-2024 Chronic Residual codes; unclassified (9 sources) Obstructive sleep apnea syndrome; Translations: [Obstructive sleep apnea (adult) (pediatric)] Onset: 06-08-2024 06-08-2024 Chronic Residual codes; unclassified (9 sources) User of smokeless tobacco; Translations: [Tobacco use] Onset: 06-08-2024 06-08-2024 Episodic Residual codes; unclassified (1 source) Acquired absence of other specified parts of digestive tract; Translations: [Status post partial colectomy] Onset: 06-21-2024 Episodic Substance-related disorders (7 sources) Nicotine dependence; Translations: [Nicotine dependence, unspecified, uncomplicated] Onset: 06-16-2024 06-16-2024 Chronic Past or Other Problems Problem Classification Problem Date Documented Da te Episodic/Chronic Malaise and fatigue (1 source) Other fatigue; Translations: [OTHER FATIGUE] Onset: 02-08-2022 Episodic Other aftercare (1 source) 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; Translations: [OTH CUSTODIAL CURRENT DRUG THERAPY] Onset: 02-08-2022 Episodic Other screening for suspected conditions (not mental disorders or infectious disease) (1 source) Encounter for screening for malignant neoplasm of prostate; Translations: [ENC SCREEN MALIG NEOPLASM PROSTATE] Onset: 02-08-2022 Episodic Results Test Name Value Interpretation Reference Range Facility [facility] 06-30-2024 [facility] Telephone (HEMASA) PIPER RODRÍGUEZ ([id number]) 1970 M Date Time Provider Department 06/30/24 CHELLE WILLIS During your visit today, we recorded the following information about you: Chelle Willis, RN 06/30/2024 11:10 AM Signed Voicemail received from pt's stating pt will be going to [place] to see their oncologist, and doesn't wish to follow up here. Please cancel appointments on 07/12. Call placed to to further assess. Message left requesting her to call our office back. Thanks LINDSAY Graf Trisha 06/30/2024 11:31 AM Signed All appointments on 07/12/24 have been canceled Maria Luisa Montes PSS Allergies As of Date: 06/30/2024 (No Known Allergies) Date Reviewed: 06/28/2024 Reviewed by: Esthela Cantrell MA - Fully Assessed Reason for Visit: Care Coordination [3491] Cmt: Cancelling appointments at our office Prescriptions as of 06/30/2024 - prochlorperazine (COMPAZINE) 10 mg tablet Take 1 tablet by mouth every 6 hours as needed. - ondansetron (ZOFRAN) 8 mg tablet Take 1 tablet by mouth every 8 hours as needed for nausea/vomiting. - methocarbamol (ROBAXIN) 500 mg tablet Take 1 tablet by mouth three times a day. - acetaminophen (TYLENOL) 500 mg tablet Take 2 tablets by mouth every 6 hours. - enoxaparin (LOVENOX) 40 mg/0.4 mL Inject 0.4 mL subcutaneously every 24 hours for 21 days. - lactobacillus rhamnosus (CULTURELLE) 10 billion cell capsule Take 1 capsule by mouth once daily. - EDARBI 80 mg tab - iv [...] contrast guidelines Problem List As Of Date 06/30/2024 Noted Resolved BMI 38.0-38.9,adult [Z68.38] 06/08/2024 HTN (hypertension) [I10] 06/08/2024 Smokeless tobacco use [Z72.0] 06/08/2024 SHERIE (obstructive sleep apnea) [G47.33] 06/08/2024 Malignant neoplasm of ascending colon (HCC) [C1*06/14/2024 Nicotine use disorder, F17.2 [F17.200] 06/16/2024 Wound dehiscence [T81.30XA] 06/21/2024 06/23/2024 Perioperative dehiscence of abdominal wound wit*06/21/2024 06/23/2024 Encounter Status:Closed by SABI ALLEN on 06/30/24 Normal [facility] Ambulatory Visit Summaryon 0 06-28-2024 Ambulatory Visit Summary Ambulatory Visit Summary PIPER RODRÍGUEZ :1970 Visit Date:06/28/2024 Ambulatory Visit Instructions Your Care Team Attending Physician - FLORIDALMA PATEL, Jone Galeana Primary Care Physician - Casey PATEL, Gen This Is Your Medications List Contact prescribing physician if questions or concerns azilsartan (Edarbi) lactobacillus acidophilus (Acidophilus Probiotic Blend) methocarbamol (methocarbamol 500 mg Tab) Procedures Performed Right colectomy (06/14/2024), Colonoscopy (05/10/2024), EGD - esophagogastroduodenoscopy (05/10/2024), Colonoscopy (06/03/2018), Arthroplasty of left hip, Arthroplasty of right hip. Discharge Vitals Heart Rate (Peripheral) 72 Respiratory Rate 16 Blood Pressure 128/84 Height 177.8 cm Height 70 in Weight 116.2 kg Weight 256.177 lb BMI 36.76 Medications What How Much When Instructions Unchanged azilsartan (Edarbi) 80 Milligram By Mouth Every day Contact prescribing physician if questions or concerns Unchanged lactobacillus acidophilus (Acidophilus Probiotic Blend) 1 Capsules By Mouth Every day Contact prescribing physician if questions or concerns Unchanged methocarbamol (methocarbamol 500 mg Tab) 1 Tablets By Mouth 3 times a day as needed for as needed for pain Contact prescribing physician if questions or concerns Allergies No Known Allergies No Known Medication Allergies Problems Ongoing - Any problem that you are currently receiving treatment for. Anemia BMI 36.0-36.9,adult Colon neoplasm Epigastric pain Essential hypertension Fatty liver History of alcohol abuse Hyperlipidemia Intestinal malabsorption Iron deficiency anemia Mass of colon Morbid obesity Other pancytopenia Periumbilical abdominal pain Positive occult stool blood test Sleep apnea Patient Survey You may receive a survey via text or e-mail asking about your office visit. Please share your experience with us by completing your survey. We appreciate your feedback and thank you for choosing us for your care. Andrea [facility] CNOVSPon 06-28-2024 CNOVSP Visit (SP) Office (H EMASA) PIPER RODRÍGUEZ ([id number]) 1970 M Date Time Provider Department 06/28/24 11:00 AM JOSEPH BRAGG During your visit today, we recorded the following information about you: Temperature Pulse Respiration Blood pressure 97.3 degrees 74/minute 18/minute 118/79 Weight Height 115.3 kg 1.778 m Joseph Bragg MD 06/28/2024 11:29 AM Signed PATIENT NAME: Piper Rodríguez CLINIC NO.: [id number] ATTENDING PHYSICIAN: Joseph Bragg MD DATE OF SERVICE: June 28, [address] Donis Carias [phone] [address] [facility] [address] thank you for referring Piper Rodríguez for an opinion regarding Colon cancer. CHIEF COMPLAINT: Colon cancer. HPI: Piper Rodríguez is a 54 year old year old male with no significant PMH. In July 2023, he developed issues with abdominal [...] taken and confirmed invasive adenocarcinoma moderately differentiated. Colonoscopy (05/10/24) - Ulcerated mass in the cecum. Path showed invasive adenoca. Underwent laparoscopic right hemicolectomy on 06/14/24. Underwent Abdominal wound exploration and closure on 06/21/24. Final path showed- Terminal ileum, right colon, appendix, and omentum, resection: - Invasive moderately differentiated colonic adenocarcinoma. - Three of 18 lymph nodes involved by metastatic adenocarcinoma (3/18). - pT3 pN1b. [employer]SI Pending [employer]. Grand mother has colon cancer. No smoking. Chews tobacco Quit alcohol. 3 children. Doing well No major complaints. Current Outpatient Medications Medication Sig methocarbamol (ROBAXIN) 500 mg tablet Take 1 tablet by mouth three times a day. acetaminophen (TYLENOL) 500 mg tablet Take 2 tablets by mouth every 6 hours. enoxaparin (LOVENOX) 40 mg/0.4 mL Inject 0.4 mL subcutaneously every 24 hours for 21 days. lactobacillus rhamnosus (CULTURELLE) 10 billion cell capsule Take 1 capsule by mouth once daily. EDARBI 80 mg tab iv contrast (will be provided with radiology [...] in the CT contrast administration guidelines link. enteric contrast (will be provided with radiology test) For CT CHESTABD/PEL W IVCON Routine order Administer, As Directed One Time Only, via Oral, Rectal, both Oral and Rectal, Enteric Tube, Stoma or Indwelling Catheter, Enteric Contrast as designated per enteric contrast guidelines No current facility-administered medications for this visit. ALLERGIES No Known Allergies PAST MEDICAL HISTORY Diagnosis Date BMI 38.0-38.9,adult Colon cancer (HCC) HTN (hypertension) PAST SURGICAL HISTORY Procedure Laterality Date PAST SURGICAL HISTORY OF Bilateral hip arthroplasty (2018, 2020) PAST SURGICAL HISTORY OF 04/2024 colonoscopy (2018) No family history on file. Social History Tobacco Use Smoking status: Never Smokeless tobacco: Current Types: Chew Vaping Use Vaping status: Never Used Substance Use Topics Alcohol use: Not Currently Drug use: Not Currently REVIEW OF SYSTEMS GENERAL: No weight loss, malaise or fevers. No night sweats. HEENT: Negative for headaches, No changes in hearing or vision, no nose bleeds or other nasal problems. RESPIRATORY: Negative for cough, wheezing and shortness of breath CARDIOVASCULAR: Negative for chest pain, leg swelling and palpitations GI: Negative for abdominal discomfort, blood in stools or black stools and change in bowel habits : Negative for dysuria, frequency and incontinence MUSCULOSKELETAL: Negative for joint pain or swelling, back pain, and muscle pain. SKIN: Negative for lesions, rash, and itching. HEMATOLOGY/LYMPHOLOGY Negative for prolonged bleeding, bruising easily, and swollen nodes. NEURO: Negative for numbness or tingling of hands/feet. No weakness. PHYSICAL EXAMINATION: There were no vitals taken for this visit. There were no vitals taken for this visit. Last 3 Encounter Wt Readings: Date: Wt: 06/21/2024 117.9 kg (260 lb) 06/08/2024 122.6 kg (270 lb 4.5 oz) 05/25/2024 122.5 kg (270 lb) General appearance:ECOG PER (more content not included)... Normal [facility] Basic metabolic 2000 panelon 06-23-2024 Anion gap [Moles/Vol] 10 mmol/L Normal 8-15 [facility] Comment on above: Order Comment: Speci men Type: BLOOD SPECIMENOrdering Facility: [facility] Address: [address] [place] [address] Performed By: #### 2 4321-2, , 2776-05 ####[facility] LABORATORYCLIA [id number] [place] [address] [place] Calcium [Mass/Vol] 8.9 mg/dL Normal 8.5-10.2 [facility] Comment on above: Order Comment: Speci men Type: BLOOD SPECIMENOrdering Facility: [facility] Address: [address] [place] [address] Performed By: #### 2 4321-2, , 2776-05 ####[facility] LABORATORYCLIA [id number] [place] [id number] [place] Chloride [Moles/Vol] 104 mmol/L Normal 98-107 [facility] Comment on above: Order Comment: Speci men Type: BLOOD SPECIMENOrdering Facility: [facility] Address: [address] [place], [place] [address] Performed By: #### 2 4321-2, , 2776-05 ####[facility] LABORATORYCLIA [id number] [place] [id number] [place] CO2 [Moles/Vol] 24 mmol/L Normal 22-30 [facility] Comment on above: Order Comment: Speci men Type: BLOOD SPECIMENOrdering Facility: [facility] Address: [address] [place] [address] Performed By: #### 2 4321-2, , 2776-05 ####[facility] LABORATORYCLIA [id number] [place] [id number] [place] Creatinine [Mass/Vol] 0.96 mg/dL Normal 0.73-1.22 [facility] Comment on above: Order Comment: Speci men Type: BLOOD SPECIMENOrdering Facility: [facility] Address: [address] [place] [address] Performed By: #### 2 4321-2, , 2776-05 ####[facility] LABORATORYCLIA [id number] [address] OF [facility] Creatinine and Glomerular filtration rate.predicted panel (S/P/Bld) 95 mL/min/1.73m??? Normal >=60 [facility] Comment on above: Order Comment: Speci men Type: BLOOD SPECIMENOrdering Facility: [facility] Address: [address] [place] [address] Result Comment: Dee mated Glomerular Filtration Rate [...] reflect actual GFR. Performed By: #### 2 4321-2, , 2776-05 ####[facility] LABORATORYCLIA [id number] [place] [address] [place] Glucose [Mass/Vol] 105 mg/dL High 74-99 [facility] Comment on above: Order Comment: Ara men Type: BLOOD SPECIMENOrdering Facility: [facility] Address: [address] [place] [address] Result Comment: The [place] Diabetes [employer] (ADA) provides guidance for cutoff [...] Standards of Medical Care in Diabetes 2016, [place] [employer]. Diabetes Care. 2016.39(Suppl 1). Performed By: #### 2 4321-2, , 2776-05 ####[facility] LABORATORYCLIA [id number] [place] [address] [place] Potassium [Moles/Vol] 4.2 mmol/L Normal 3.7-5.1 [facility] Comment on above: Order Comment: Ara gio Type: BLOOD SPECIMENOrdering Facility: [facility] Address: [address] [place], [place] [address] Performed By: #### 2 4321-2, , 2776-05 ####[facility] LABORATORYCLIA [id number] [place] [address] [place] Sodium [Moles/Vol] 138 mmol/L Normal 136-144 [facility] Comment on above: Order Comment: Ara gio Type: BLOOD SPECIMENOrdering Facility: [facility] Address: [address] [place], [place] [address] Performed By: #### 2 4321-2, , 2776-05 ####[facility] LABORATORYCLIA [id number] [place] [address] [place] Urea nitrogen [Mass/Vol] 13 mg/dL Normal 9-24 [facility] Comment on above: Order Comment: Speci men Type: BLOOD SPECIMENOrdering Facility: [facility] Address: [address] [place] [address] Performed By: #### 2 4321-2, 26199-9, 2777-1 ####AM[facility] LABORATORYCLIA [id number] [place] [address] [place] CBC W Auto Differential pane l (Bld)on 06-23-2024 Basophils (Bld) [#/Vol] 0.05 10*3/uL Normal <0.11 [facility] Comment on above: Order Comment: Speci men Type: BLOOD SPECIMENOrdering Facility: [facility] Address: [address] [place] [address] Performed By: #### 5 7021-8 ####[facility] LABORATORYCLIA [id number] [place] [address] [place] Basophils/100 WBC (Bld) 0.8 % Normal [facility] Comment on above: Order Comment: Speci men Type: BLOOD SPECIMENOrdering Facility: [facility] Address: [address] [place] [address] Performed By: #### 5 7021-8 ####[facility] LABORATORYCLIA [id number] [place] [address] [place] Differential cell count method Nom (Bld) Auto Normal [facility] Comment on above: Order Comment: Speci men Type: BLOOD SPECIMENOrdering Facility: [facility] Address: [address] [place] [address] Performed By: #### 5 7021-8 ####[facility] LABORATORYCLIA [id number] [place] [id number] [place] Eosinophils (Bld) [#/Vol] 0.30 10*3/uL Normal <0.46 [facility] Comment on above: Order Comment: Speci men Type: BLOOD SPECIMENOrdering Facility: [facility] Address: [address] [place] [address] Performed By: #### 5 7021-8 ####[facility] LABORATORYCLIA [id number] [place] [address] [place] Eosinophils/100 WBC (Bld) 4.6 % Normal [facility] Comment on above: Order Comment: Speci men Type: BLOOD SPECIMENOrdering Facility: [facility] Address: [address] [place] [address] Performed By: #### 5 7021-8 ####AM[facility] LABORATORYCLIA [id number] [place] [address] [place] Erythrocyte distribution width (RBC) [Ratio] 14.6 % Normal 11.5-15.0 [facility] Comment on above: Order Comment: Speci men Type: BLOOD SPECIMENOrdering Facility: [facility] Address: [address] [place] [address] Performed By: #### 5 7021-8 ####[facility] LABORATORYCLIA [id number] [address] [place] Hematocrit (Bld) [Volume fraction] 38.0 % Low 39.0-51.0 [facility] Comment on above: Order Comment: Speci men Type: BLOOD SPECIMENOrdering Facility: [facility] Address: [address] [place] [address] Performed By: #### 5 7021-8 ####AMRITA LABORATORYCLIA [id number] [place] [address] [place] Hemoglobin (Bld) [Mass/Vol] 11.9 g/dL Low 13.0-17.0 [facility] Comment on above: Order Comment: Speci men Type: BLOOD SPECIMENOrdering Facility: [facility] Address: [address] [place] [address] Performed By: #### 5 7021-8 ####ARMITA LABORATORYCLIA [id number] [place] [id number] [place] Immature granulocytes (Bld) [#/Vol] 0.04 10*3/uL Normal <0.10 [facility] Comment on above: Order Comment: Speci men Type: BLOOD SPECIMENOrdering Facility: [facility] Address: [address] [place] [address] Performed By: #### 5 7021-8 ####[facility] LABORATORYCLIA [id number] [place] [id number] [place] Immature granulocytes/100 WBC (Bld) 0.6 % Normal [facility] Comment on above: Order Comment: Speci men Type: BLOOD SPECIMENOrdering Facility: [facility] Address: [address] [place] [address] Performed By: #### 5 7021-8 ####[facility] LABORATORYCLIA [id number] [place] [address] [place] Lymphocytes (Bld) [#/Vol] 1.78 10*3/uL Normal 1.00-4.00 [facility] Comment on above: Order Comment: Speci men Type: BLOOD SPECIMENOrdering Facility: [facility] Address: [address] [place] [address] Performed By: #### 5 7021-8 ####[facility] LABORATORYCLIA [id number] [address] [place] Lymphocytes/100 WBC (Bld) 27.0 % Normal [facility] Comment on above: Order Comment: Speci men Type: BLOOD SPECIMENOrdering Facility: [facility] Address: [address] [place] [address] Performed By: #### 5 7021-8 ####[facility] LABORATORYCLIA [id number] [place] [address] [place] MCH (RBC) [Entitic mass] 29.3 pg Normal 26.0-34.0 [facility] Comment on above: Order Comment: Speci men Type: BLOOD SPECIMENOrdering Facility: [facility] Address: [address] [place] [address] Performed By: #### 5 7021-8 ####[facility] LABORATORYCLIA [id number] [address] [place] MCHC (RBC) [Mass/Vol] 31.3 g/dL Normal 30.5-36.0 [facility] Comment on above: Order Comment: Speci men Type: BLOOD SPECIMENOrdering Facility: [facility] Address: [address] [place] [address] Performed By: #### 5 7021-8 ####[facility] LABORATORYCLIA [id number] [place] [address] [place] MCV (RBC) [Entitic vol] 93.6 fL Normal 80.0-100.0 [facility] Comment on above: Order Comment: Speci men Type: BLOOD SPECIMENOrdering Facility: [facility] Address: [address] [place] [address] Performed By: #### 5 7021-8 ####[facility] LABORATORYCLIA [id number] [place] [address] [place] Monocytes (Bld) [#/Vol] 0.84 10*3/uL Normal <0.87 [facility] Comment on above: Order Comment: Speci men Type: BLOOD SPECIMENOrdering Facility: [facility] Address: [address] [place] [address] Performed By: #### 5 7021-8 ####[facility] LABORATORYCLIA [id number] [place] [address] [place] Monocytes/100 WBC (Bld) 12.7 % Normal [facility] Comment on above: Order Comment: Speci men Type: BLOOD SPECIMENOrdering Facility: [facility] Address: [address] [place] [address] Performed By: #### 5 7021-8 ####AMRITA LABORATORYCLIA [id number] [place] [id number] [place] Neutrophils (Bld) [#/Vol] 3.58 10*3/uL Normal 1.45-7.50 [facility] Comment on above: Order Comment: Speci men Type: BLOOD SPECIMENOrdering Facility: [facility] Address: [address] [place] [address] Performed By: #### 5 7021-8 ####[facility] LABORATORYCLIA [id number] [place] [address] [place] Neutrophils/100 WBC (Bld) 54.3 % Normal [facility] Comment on above: Order Comment: Speci men Type: BLOOD SPECIMENOrdering Facility: [facility] Address: [address] [place] [address] Performed By: #### 5 7021-8 ####AMRITA LABORATORYCLIA [id number] [place] [address] [place] Nucleated RBC (Bld) [#/Vol] 10*3/uL Normal <0.01 [facility] Comment on above: Order Comment: Speci men Type: BLOOD SPECIMENOrdering Facility: [facility] Address: [address] [place] [address] Performed By: #### 5 7021-8 ####[facility] LABORATORYCLIA [id number] [place] [address] [place] Nucleated RBC/100 WBC (Bld) [Ratio] 0.0 /100 WBC Normal [facility] Comment on above: Order Comment: Speci men Type: BLOOD SPECIMENOrdering Facility: [facility] Address: [address] [place] [address] Performed By: #### 5 7021-8 ####[facility] LABORATORYCLIA [id number] [place] [address] [place] Platelet mean volume (Bld) [Entitic vol] 10.8 fL Normal 9.0-12.7 [facility] Comment on above: Order Comment: Speci men Type: BLOOD SPECIMENOrdering Facility: [facility] Address: [address] [place] [address] Performed By: #### 5 7021-8 ####AMRITA LABORATORYCLIA [id number] [place] [id number] [place] Platelets (Bld) [#/Vol] 187 10*3/uL Normal 150-400 [facility] Comment on above: Order Comment: Speci men Type: BLOOD SPECIMENOrdering Facility: [facility] Address: [address] [place] [address] Performed By: #### 5 7021-8 ####[facility] LABORATORYCLIA [id number] [place] [address] [place] RBC (Bld) [#/Vol] 4.06 10*6/uL Low 4.20-6.00 [facility] Comment on above: Order Comment: Speci men Type: BLOOD SPECIMENOrdering Facility: [facility] Address: [address] [place] [address] Performed By: #### 5 7021-8 ####AMRITA LABORATORYCLIA [id number] [place] [address] [place] WBC (Bld) [#/Vol] 6.59 10*3/uL Normal 3.70-11.00 [facility] Comment on above: Order Comment: Speci men Type: BLOOD SPECIMENOrdering Facility: [facility] Address: [address] [place] [address] Performed By: #### 5 7021-8 ####HEWETT LABORATORYCLIA [id number] [address] CNDSon 06-23-2024 CNDS HNO ID: [id number] Author: LASHONDA DELGADO MD Service: Colorectal Author Type: Resident Type: Discharge Summary Filed: 06/23/2024 08:10 Note Text: Attestation signed by Donis Carias MD at 06/23/2024 8:37 AM I evaluated the patient and personally participated in the conley components. I agree with the resident's findings and plan as documented and have discussed the case and management of the patient's care with the resident. Signature: Donis Carias MD DISCHARGE SUMMARY ADMISSION DATE: 06/21/2024 DISCHARGE DATE: 06/23/2024 Attending Physician: Donis Carias MD Reason for Hospitalization: Operation and recovery Final Diagnoses: ACTIVE PROBLEM LIST Bmi 38.0-38.9,Adult Htn (Hypertension) Smokeless Tobacco Use Sherie (Obstructive Sleep Apnea) Malignant Neoplasm of Ascending Colon (Hcc) Nicotine use disorder, F17.2 Operations During Hospitalization: Abdominal wound exploration and closure Procedures During Hospitalization: IV Access Venipuncture Anesthesia Administration Intubation (for surgery) Hospital Course: Mr. Rodríguez is a 54 year old male with PMHx EtOH use, new diagnosis of cecal cancer who is now s/p laparoscopic right hemicolectomy 06/14. Discharged on POD2 without concern and now representing d/t wound evisceration now s/p abdominal wound exploration and fascial closure 06/21. After a brief stay in the recovery room, he was admitted to a regular nursing floor for additional recovery. On day of discharge, in light of normal vital signs, tolerating a diet, pain well controlled on oral medications and able to ambulate, he was deemed fit for discharge to home with instructions to follow up in clinic. DAY OF DISCHARGE PHYSICAL EXAM: BP: 144/80 Temp: 36.7 ?C (98.1 ?F) Temp src: Oral Pulse: 44 Resp: 16 O2 Therapy: Room Air SpO2: 97 % GENERAL: Alert and oriented, no acute distress, cooperative. LUNGS: Non labored breathing ABDOMEN: soft, appropriately tender, non distended. WOUND: clean, dry and intact Patient Condition @ Discharge: Stable Discharge Disposition: Home with Self Care Information Provided to Patient: A copy of discharge instructions was provided to the patient. Discharge Medications: Medication List START taking these medications methocarbamol 500 mg tablet Commonly known as: ROBAXIN Take 1 tablet by mouth three times a day. CONTINUE taking these medications acetaminophen 500 mg tablet Commonly known as: TYLENOL Take 2 tablets by mouth every 6 hours. EDARBI 80 mg Tab Generic drug: azilsartan enoxaparin 40 mg/0.4 mL Commonly known as: LOVENOX Inject 0.4 mL subcutaneously every 24 hours for 21 days. enteric contrast (will be provided with radiology [...] in the CT contrast administration guidelines link. lactobacillus rhamnosus 10 billion cell capsule Commonly known as: CULTURELLE Take 1 capsule by mouth once daily. oxyCODONE IR 5 mg immediate release tablet Commonly known as: ROXICODONE Take 1 tablet by mouth every 6 hours as needed for up to 7 days. Where to Get Your Medications These medications were sent to [facility] [place] [address] - [address] [facility] - [phone] [address] [place] [address] methocarbamol 500 mg tablet Future Appointments: Future Appointments Date Time Provider Department Center 07/05/2024 10:40 AM 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 APRN.CIRCULAR DISTRIBUTOR [id number] [employer] You will receive a phone call from our clinic nurse to check in on you in 5-7 days from discharge before your follow up appointment. Signed by Physician: Lashonda Delgado MD Normal [facility] Magnesium SerPl-mCncon 06-23 Magnesium [Mass/Vol] 2.1 mg/dL Normal 1.7-2.3 [facility] Comment on above: Order Comment: Speci men Type: BLOOD SPECIMENOrdering Facility: [facility] Address: [address] [place] [address] Performed By: #### 2 4321-2, 15213-3, 2777-1 ####[facility] LABORATORYCLIA [id number] [place] [address] [place] Phosphate SerPl-mCncon 06-23 Phosphate [Mass/Vol] 3.2 mg/dL Normal 2.7-4.8 [facility] Comment on above: Order Comment: Speci men Type: BLOOD SPECIMENOrdering Facility: [facility] Address: [address] [place] [address] Performed By: #### 2 4321-2, , 2776-05 ####AMRITA LABORATORYCLIA [id number] [place] [address] [place] Basic metabolic 2000 panelon 06-22-2024 Anion gap [Moles/Vol] 9 mmol/L Normal 8-15 [facility] Comment on above: Order Comment: Speci men Type: BLOOD SPECIMENOrdering Facility: [facility] Address: [address] [place], [place] [address] Performed By: #### 2 4321-2, 2776-05, ####AMRITA LABORATORYCLIA [id number] [place] [address] [place] Calcium [Mass/Vol] 8.9 mg/dL Normal 8.5-10.2 [facility] Comment on above: Order Comment: Speci men Type: BLOOD SPECIMENOrdering Facility: [facility] Address: [address] [place], [place] [address] Performed By: #### 2 4321-2, 2776-05, ####AMRITA LABORATORYCLIA [id number] [place] [address] [place] Chloride [Moles/Vol] 103 mmol/L Normal 98-107 [facility] Comment on above: Order Comment: Speci men Type: BLOOD SPECIMENOrdering Facility: [facility] Address: [address] [place], [place] [address] Performed By: #### 2 4321-2, 2776-05, ####AMRITA LABORATORYCLIA [id number] [place] [address] [place] CO2 [Moles/Vol] 24 mmol/L Normal 22-30 [facility] Comment on above: Order Comment: Speci men Type: BLOOD SPECIMENOrdering Facility: [facility] Address: [address] [place] [address] Performed By: #### 2 4321-2, 2777- ####HEWETT LABORATORYCLIA [id number] [place] [address] [place] Creatinine [Mass/Vol] 0.93 mg/dL Normal 0.73-1.22 [facility] Comment on above: Order Comment: Ara powers Type: BLOOD SPECIMENOrdering Facility: [facility] Address: [address] [place] [address] Performed By: #### 2 4321-2, 2776-05, ####HEWETT LABORATORYCLIA [id number] [place] [address] [place] Creatinine and Glomerular filtration rate.predicted panel (S/P/Bld) 98 mL/min/1.73m??? Normal >=60 [facility] Comment on above: Order Comment: Ara powers Type: BLOOD SPECIMENOrdering Facility: [facility] Address: [address] [place] [address] Result Comment: Dee mated Glomerular Filtration Rate [...] reflect actual GFR. Performed By: #### 2 4321-2, 7, ####HEWETT LABORATORYCLIA [id number] [place] [address] [place] Glucose [Mass/Vol] 107 mg/dL High 74-99 [facility] Comment on above: Order Comment: Ara powers Type: BLOOD SPECIMENOrdering Facility: [facility] Address: [address] [place] [address] Result Comment: The [place] [employer] (ADA) provides guidance for cutoff [...] Standards of Medical Care in Diabetes 2016, [place] [employer]. Diabetes Care. 2016.39(Suppl 1). Performed By: #### 2 4321-2, 2776-05, ####HEWETT LABORATORYCLIA [id number] [place] [address] [place] Potassium [Moles/Vol] 4.6 mmol/L Normal 3.7-5.1 [facility] Comment on above: Order Comment: Ara powers Type: BLOOD SPECIMENOrdering Facility: [facility] Address: [address] [place] [address] Performed By: #### 2 4321-2, 2776-05, ####HEWETT LABORATORYCLIA [id number] [place] [address] [place] Sodium [Moles/Vol] 136 mmol/L Normal 136-144 [facility] Comment on above: Order Comment: Ara powers Type: BLOOD SPECIMENOrdering Facility: [facility] Address: [address] [place] [address] Performed By: #### 2 4321-2, 2776-05, ####HEWETT LABORATORYCLIA [id number] [place] [address] [place] Urea nitrogen [Mass/Vol] 13 mg/dL Normal 9-24 [facility] Comment on above: Order Comment: Ara powers Type: BLOOD SPECIMENOrdering Facility: [facility] Address: [address] [place] [address] Performed By: #### 2 4321-2, 2776-05, ####HEWETT LABORATORYCLIA [id number] [place] [address] [place] CBC W Auto Differential pane l (Bld)on 06-22-2024 Basophils (Bld) [#/Vol] 0.03 10*3/uL Normal <0.11 [facility] Comment on above: Order Comment: Speci men Type: BLOOD SPECIMENOrdering Facility: [facility] Address: [address] [place] [address] Performed By: #### 5 7021-8 ####AMRITA LABORATORYCLIA [id number] [address] [place] Basophils/100 WBC (Bld) 0.3 % Normal [facility] Comment on above: Order Comment: Speci men Type: BLOOD SPECIMENOrdering Facility: [facility] Address: [address] [place] [address] Performed By: #### 5 7021-8 ####[facility] LABORATORYCLIA [id number] [place] [address] [place] Differential cell count method Nom (Bld) Auto Normal [facility] Comment on above: Order Comment: Speci men Type: BLOOD SPECIMENOrdering Facility: [facility] Address: [address] [place] [address] Performed By: #### 5 7021-8 ####AMRITA LABORATORYCLIA [id number] [place] [address] [place] Eosinophils (Bld) [#/Vol] 0.12 10*3/uL Normal <0.46 [facility] Comment on above: Order Comment: Speci men Type: BLOOD SPECIMENOrdering Facility: [facility] Address: [address] [place] [address] Performed By: #### 5 7021-8 ####AMRITA LABORATORYCLIA [id number] [address] [place] Eosinophils/100 WBC (Bld) 1.4 % Normal [facility] Comment on above: Order Comment: Speci men Type: BLOOD SPECIMENOrdering Facility: [facility] Address: [address] [place] [address] Performed By: #### 5 7021-8 ####[facility] LABORATORYCLIA [id number] [address] [place] Erythrocyte distribution width (RBC) [Ratio] 14.6 % Normal 11.5-15.0 [facility] Comment on above: Order Comment: Speci men Type: BLOOD SPECIMENOrdering Facility: [facility] Address: [address] [place] [address] Performed By: #### 5 7021-8 ####AMRITA LABORATORYCLIA [id number] [place] [address] [place] Hematocrit (Bld) [Volume fraction] 40.4 % Normal 39.0-51.0 [facility] Comment on above: Order Comment: Speci men Type: BLOOD SPECIMENOrdering Facility: [facility] Address: [address] [place] [address] Performed By: #### 5 7021-8 ####AMRITA LABORATORYCLIA [id number] [place] [address] [place] Hemoglobin (Bld) [Mass/Vol] 12.8 g/dL Low 13.0-17.0 [facility] Comment on above: Order Comment: Speci men Type: BLOOD SPECIMENOrdering Facility: [facility] Address: [address] [place] [address] Performed By: #### 5 7021-8 ####AMRITA LABORATORYCLIA [id number] [place] [address] [place] Immature granulocytes (Bld) [#/Vol] 0.05 10*3/uL Normal <0.10 [facility] Comment on above: Order Comment: Speci men Type: BLOOD SPECIMENOrdering Facility: [facility] Address: [address] [place] [address] Performed By: #### 5 7021-8 ####AMRITA LABORATORYCLIA [id number] [place] [address] [place] Immature granulocytes/100 WBC (Bld) 0.6 % Normal [facility] Comment on above: Order Comment: Speci men Type: BLOOD SPECIMENOrdering Facility: [facility] Address: [address] [place] [address] Performed By: #### 5 7021-8 ####[facility] LABORATORYCLIA [id number] [place] [address] [place] Lymphocytes (Bld) [#/Vol] 1.14 10*3/uL Normal 1.00-4.00 [facility] Comment on above: Order Comment: Speci men Type: BLOOD SPECIMENOrdering Facility: [facility] Address: [address] [place] [address] Performed By: #### 5 7021-8 ####[facility] LABORATORYCLIA [id number] [place] [address] [place] Lymphocytes/100 WBC (Bld) 13.1 % Normal [facility] Comment on above: Order Comment: Speci men Type: BLOOD SPECIMENOrdering Facility: [facility] Address: [address] [place] [address] Performed By: #### 5 7021-8 ####[facility] LABORATORYCLIA [id number] [address] [place] MCH (RBC) [Entitic mass] 29.5 pg Normal 26.0-34.0 [facility] Comment on above: Order Comment: Speci men Type: BLOOD SPECIMENOrdering Facility: [facility] Address: [address] [place] [address] Performed By: #### 5 7021-8 ####[facility] LABORATORYCLIA [id number] [address] [place] MCHC (RBC) [Mass/Vol] 31.7 g/dL Normal 30.5-36.0 [facility] Comment on above: Order Comment: Speci men Type: BLOOD SPECIMENOrdering Facility: [facility] Address: [address] [place] [address] Performed By: #### 5 7021-8 ####AMRITA LABORATORYCLIA [id number] [address] [place] MCV (RBC) [Entitic vol] 93.1 fL Normal 80.0-100.0 [facility] Comment on above: Order Comment: Speci men Type: BLOOD SPECIMENOrdering Facility: [facility] Address: [address] [place] [address] Performed By: #### 5 7021-8 ####[facility] LABORATORYCLIA [id number] [place] [address] [place] Monocytes (Bld) [#/Vol] 1.05 10*3/uL High <0.87 [facility] Comment on above: Order Comment: Speci men Type: BLOOD SPECIMENOrdering Facility: [facility] Address: [address] [place] [address] Performed By: #### 5 7021-8 ####AMRITA LABORATORYCLIA [id number] [place] [address] [place] Monocytes/100 WBC (Bld) 12.1 % Normal [facility] Comment on above: Order Comment: Speci men Type: BLOOD SPECIMENOrdering Facility: [facility] Address: [address] [place] [address] Performed By: #### 5 7021-8 ####AMRITA LABORATORYCLIA [id number] [place] [address] [place] Neutrophils (Bld) [#/Vol] 6.31 10*3/uL Normal 1.45-7.50 [facility] Comment on above: Order Comment: Speci men Type: BLOOD SPECIMENOrdering Facility: [facility] Address: [address] [place] [address] Performed By: #### 5 7021-8 ####AMRITA LABORATORYCLIA [id number] [place] [id number] [place] Neutrophils/100 WBC (Bld) 72.5 % Normal [facility] Comment on above: Order Comment: Speci men Type: BLOOD SPECIMENOrdering Facility: [facility] Address: [address] [place] [address] Performed By: #### 5 7021-8 ####[facility] LABORATORYCLIA [id number] [place] [address] [place] Nucleated RBC (Bld) [#/Vol] 10*3/uL Normal <0.01 [facility] Comment on above: Order Comment: Speci men Type: BLOOD SPECIMENOrdering Facility: [facility] Address: [address] [place] [address] Performed By: #### 5 7021-8 ####AMRITA LABORATORYCLIA [id number] [place] [address] [place] Nucleated RBC/100 WBC (Bld) [Ratio] 0.0 /100 WBC Normal [facility] Comment on above: Order Comment: Speci men Type: BLOOD SPECIMENOrdering Facility: [facility] Address: [address] [place] [address] Performed By: #### 5 7021-8 ####[facility] LABORATORYCLIA [id number] [place] [address] [place] Platelet mean volume (Bld) [Entitic vol] 10.7 fL Normal 9.0-12.7 [facility] Comment on above: Order Comment: Speci men Type: BLOOD SPECIMENOrdering Facility: [facility] Address: [address] [place] [address] Performed By: #### 5 7021-8 ####[facility] LABORATORYCLIA [id number] [place] [address] [place] Platelets (Bld) [#/Vol] 192 10*3/uL Normal 150-400 [facility] Comment on above: Order Comment: Speci men Type: BLOOD SPECIMENOrdering Facility: [facility] Address: [address] [place] [address] Performed By: #### 5 7021-8 ####[facility] LABORATORYCLIA [id number] [place] [address] [place] RBC (Bld) [#/Vol] 4.34 10*6/uL Normal 4.20-6.00 [facility] Comment on above: Order Comment: Speci men Type: BLOOD SPECIMENOrdering Facility: [facility] Address: [address] [place] [address] Performed By: #### 5 7021-8 ####[facility]ETT LABORATORYCLIA [id number] [place] [id number] [place] WBC (Bld) [#/Vol] 8.70 10*3/uL Normal 3.70-11.00 [facility] Comment on above: Order Comment: Speci men Type: BLOOD SPECIMENOrdering Facility: [facility] Address: [address] [place], [place] [address] Performed By: #### 5 7021-8 ####AMRITA LABORATORYCLIA [id number] [place] [address] [facility] Magnesium SerPl-mCncon 06-22 Magnesium [Mass/Vol] 2.1 mg/dL Normal 1.7-2.3 [facility] Comment on above: Order Comment: Speci men Type: BLOOD SPECIMENOrdering Facility: [facility] Address: [address] [place] [address] Performed By: #### 2 4321-2, 2777-1, 97458-4 ####AMRITA LABORATORYCLIA [id number] [place] [id number] [place] Phosphate SerPl-mCncon 06-22 Phosphate [Mass/Vol] 3.8 mg/dL Normal 2.7-4.8 [facility] Comment on above: Order Comment: Speci men Type: BLOOD SPECIMENOrdering Facility: [facility] Address: [address] [address] [place], [place] [id number] Performed By: #### 2 4321-2, 2777-1, ####AMRITA LABORATORYCLIA [id number] [place] [id number] [place] ANES POSTPROC EVALon 025 ANES POSTPROC EVAL HNO ID: [id number] Author: OLGA LIDIA WHITEHEAD MD Service: Anesthesiology Author Type: Anesthesiologist Type: Anesthesia Postprocedure Evaluation Filed: 06/21/2024 17:30 Note Text: POST ANESTHESIA EVALUATION NOTE : 1970 Procedure Summary Date: 06/21/24 Room / Location: OR07 / F[facility] OR Anesthesia Start: 1549 Anesthesia Stop: 1723 Procedure: ABDOMINAL WOUND EXPLORATION AND CLOSURE (Abdomen) Diagnosis: Perioperative dehiscence of abdominal wound with evisceration (Perioperative dehiscence of abdominal wound with evisceration [T81.321A]) Surgeons: Donis Carias MD Responsible Provider: Olga Lidia Whitehead MD Anesthesia Type: general ASA Status: 3 - Emergent Anesthesia Type: general Airway Type: ETT Last Vitals Vitals Value Taken Time BP 141/86 06/21/24 1721 Temp 36.4 ?C (97.5 ?F) 06/21/24 1718 Pulse 74 06/21/24 1730 Resp 19 06/21/24 1730 SpO2 94 % 06/21/24 1730 Vitals shown include unfiled device data. Post Anesthesia Patient Status Patient Evaluation: PACU. PACU/ICU Patient Condition: stable. Anticipated Disposition: inpatient floor planned admission. Neurological Status: aware and responsive. Pulmonary Status: breathing comfortably on room air Airway Control: returned to baseline unsupported. Cardiovascular Status: stable. Pain Management: clinically adequate - multimodal analgesia pain management approach Postoperative Hydration: acceptable. Intraoperative Events: no significant anesthesia events Post Operative Nausea/Vomiting Status: no significant post operative nausea or vomiting Recommendation: continue current plan of care and further care per PACU/ICU/floor team. Anesthesia Observations No Documentation SIGNATURE: Olga Lidia Whitehead MD PATIENT NAME: Piper Rodríguez DATE: June 21, 2024 TIME: 5:30 PM CSN: [id number] [facility] ANES PRE-OPon 06-21-2024 ANES PRE-OP HNO ID: [id number] Author: YU BERRIOS MD Service: Anesthesiology Author Type: Anesthesiologist Type: Anesthesia Preprocedure Evaluation Filed: 06/21/2024 15:44 Note Text: ANESTHESIOLOGY DAY OF SURGERY NOTE : 1970 Procedure Information Date/Time: 06/21/24 1500 Procedure: EXPLORATORY LAPAROTOMY (Abdomen) Location: OR07 / OR Surgeons: Donis Carisa MD Estimated body mass index is 37.31 kg/m? as calculated from the following: Height as of this encounter: 177.8 cm (5' 10 ). Weight as of this encounter: 117.9 kg (260 lb). Most recent hematocrit and potassium results: Hematocrit 45.2 06/21/2024 Potassium 4.3 06/21/2024 Relevant Problems ANESTHESIA (+) SHERIE (obstructive sleep apnea) CARDIO (+) HTN (hypertension) PULMONARY (+) SHERIE (obstructive sleep apnea) I - PHYSICAL EVALUATION AIRWAY Patient intubated: No. Tracheostomy tube not present Mallampati: III. TM distance: >3 FB. Neck ROM: full ROM without neurological symptoms. Mouth opening: adequate. Short neck: no. Thick neck: yes Ramos present: yes DENTAL Dental findings: chipped. Additional exam findings: yes. CARDIOVASCULAR Rhythm: regular Rate: normal PULMONARY Breath sounds clear to auscultation. II - ANESTHESIA PLAN ASA Score: 3; emergent. Anesthetic Plan: general Airway type: ETT The patient is not a current smoker. NPO Status: adequate Beta Connie Monitoring Plan Monitoring plan: standard ASA. Post Procedure Analgesic Plan Postoperative analgesic plan: multimodal analgesia. Informed Consent Anesthetic risks, benefits, alternatives, personnel and consent discussed: yes. Patient / Responsible Republican agrees to proceed: yes Patient / Surrogate agrees to blood products: Yes Significant changes in the patient condition since the History and Physical, not otherwise documented in primary service progress note: no. Potential Anesthesia issues that may suggest increased risk of complications or contraindication to planned procedure: none. Vitals Value Taken Time BP 138/72 06/21/24 1541 Pulse 54 06/21/24 1541 Resp 18 06/21/24 1541 Temp 37.2 ?C (99 ?F) 06/21/24 1541 SpO2 98 % 06/21/24 1541 Facility-Administered Medications as of 06/21/2024 Medication Dose Route Frequency NaCl 0.9% iv flush bag 20 mL INTRAVENOUS PRN piperacillin-tazobactam iv piggyback 3.375 g in dextrose (iso-osmotic) 50 mL (ZOSYN) 3.375 g INTRAVENOUS q 6 H Outpatient Medications as of 06/21/2024 Medication Sig acetaminophen (TYLENOL) 500 mg tablet Take 2 tablets by mouth every 6 hours. enoxaparin (LOVENOX) 40 mg/0.4 mL Inject 0.4 mL subcutaneously every 24 hours for 21 days. lactobacillus rhamnosus (CULTURELLE) 10 billion cell capsule Take 1 capsule by mouth once daily. oxyCODONE IR (ROXICODONE) 5 mg immediate release tablet Take 1 tablet by mouth every 6 hours as needed for up to 7 days. EDARBI 80 mg tab iv contrast (will be provided with radiology [...] in the CT contrast administration guidelines link. enteric contrast (will be provided with radiology test) For CT CHESTABD/PEL W IVCON Routine order Administer, As Directed One Time Only, via Oral, Rectal, both Oral and Rectal, Enteric Tube, Stoma or Indwelling Catheter, Enteric Contrast as designated per enteric contrast guidelines I have interviewed and examined the patient. I have reviewed the medical record and/or the pre-anesthesia evaluation, pertinent labs, and test results. This contains updated information obtained within 48 hours of Surgery/Procedure. SIGNATURE: Yu Berrios MD PATIENT NAME: Piper Rodríguez DATE: June 21, 2024 TIME: 3:43 PM CSN: [id number] Normal [facility] CBC panel Auto (Bld)on 06-21 Erythrocyte distribution width (RBC) [Ratio] 14.7 % Normal 11.5-15.0 [facility] Comment on above: Order Comment: Speci men Type: BLOOD SPECIMENOrdering Facility: [facility] Address: [address] [place] [address] Performed By: #### 5 8410-2 ####HEWETT LABORATORYCLIA [id number] [place] [address] [place] Hematocrit (Bld) [Volume fraction] 45.2 % Normal 39.0-51.0 [facility] Comment on above: Order Comment: Speci men Type: BLOOD SPECIMENOrdering Facility: [facility] Address: [address] [place] [address] Performed By: #### 5 8410-2 ####HEWETT LABORATORYCLIA [id number] [place] [id number] [place] Hemoglobin (Bld) [Mass/Vol] 14.3 g/dL Normal 13.0-17.0 [facility] Comment on above: Order Comment: Speci men Type: BLOOD SPECIMENOrdering Facility: [facility] Address: [address] [place] [address] Performed By: #### 5 8410-2 ####HEWETT LABORATORYCLIA [id number] [address] STATES [facility] MCH (RBC) [Entitic mass] 29.4 pg Normal 26.0-34.0 [facility] Comment on above: Order Comment: Speci men Type: BLOOD SPECIMENOrdering Facility: [facility] Address: [address] [place] [address] Performed By: #### 5 8410-2 ####AMRITA LABORATORYCLIA [id number] [place] [address] [place] MCHC (RBC) [Mass/Vol] 31.6 g/dL Normal 30.5-36.0 [facility] Comment on above: Order Comment: Speci men Type: BLOOD SPECIMENOrdering Facility: [facility] Address: [address] [place] [address] Performed By: #### 5 8410-2 ####AMRITA LABORATORYIA [id number] [place] [address] [place] MCV (RBC) [Entitic vol] 93.0 fL Normal 80.0-100.0 [facility] Comment on above: Order Comment: Speci men Type: BLOOD SPECIMENOrdering Facility: [facility] Address: [address] [place] [address] Performed By: #### 5 8410-2 ####AMRITA LABORATORYCLIA [id number] [address] [place] Nucleated RBC (Bld) [#/Vol] 10*3/uL Normal <0.01 [facility] Comment on above: Order Comment: Speci men Type: BLOOD SPECIMENOrdering Facility: [facility] Address: [address] [place] [address] Performed By: #### 5 8410-2 ####[facility] LABORATORYCLIA [id number] [address] [place] Platelet mean volume (Bld) [Entitic vol] 11.0 fL Normal 9.0-12.7 [facility] Comment on above: Order Comment: Speci men Type: BLOOD SPECIMENOrdering Facility: [facility] Address: [address] [place] [address] Performed By: #### 5 8410-2 ####HEWETT LABORATORYCLIA [id number] [place] [address] [facility] [place] Platelets (Bld) [#/Vol] 222 10*3/uL Normal 150-400 [facility] Comment on above: Order Comment: Speci men Type: BLOOD SPECIMENOrdering Facility: [facility] Address: [address] [place] [address] Performed By: #### 5 8410-2 ####[facility] LABORATORYCLIA [id number] [place] [address] [place] RBC (Bld) [#/Vol] 4.86 10*6/uL Normal 4.20-6.00 [facility] Comment on above: Order Comment: Speci men Type: BLOOD SPECIMENOrdering Facility: [facility] Address: [address] [place] [address] Performed By: #### 5 8410-2 ####HEWETT LABORATORYCLIA [id number] [place] [address] [facility] [place] WBC (Bld) [#/Vol] 7.87 10*3/uL Normal 3.70-11.00 [facility] Comment on above: Order Comment: Speci men Type: BLOOD SPECIMENOrdering Facility: [facility] Address: [address] [place] [address] Performed By: #### 5 8410-2 ####HEWETT LABORATORYCLIA [id number] [place] [address] [facility] [place] CNPNazanin 06-21-2024 CNPN Telephone ([facility]) PIPER RODRÍGUEZ ([id number]) 1970 Date Time Provider Department 06/21/24 DONIS CARIAS [facility] During your visit today, we recorded the following information about you: Jocelyn Cantrell RN 06/21/2024 10:44 AM Signed Patient called stating he coughed and his incision opened even more than yesterday. He thinks it's 3 times the size of yesterday. He denies pain, denies much bleeding. We discussed the fascia and the concern for this being open. He states the doctor explained this to him yesterday and did not find an opening in the fascia. We discussed waiting for his appointment tomorrow vs going to [facility] ED. Ultimately, he thinks he will go to [facility] ED. Allergies As of Date: 06/21/2024 (No Known Allergies) Date Reviewed: 06/15/2024 Reviewed by: Mami Bustos, LINDSAY - Fully Assessed Prescriptions as of 06/21/2024 - acetaminophen (TYLENOL) 500 mg tablet Take [...] contrast guidelines Problem List As Of Date 06/21/2024 Noted Resolved BMI 38.0-38.9,adult [Z68.38] 06/08/2024 HTN (hypertension) [I10] 06/08/2024 Smokeless tobacco use [Z72.0] 06/08/2024 SHERIE (obstructive sleep apnea) [G47.33] 06/08/2024 Malignant neoplasm of ascending colon (HCC) [C1*06/14/2024 Nicotine use disorder, F17.2 [F17.200] 06/16/2024 Encounter Status:Closed by JOCELYN CANTRELL on 06/21/24 Normal [facility] Comprehensive metabolic 2000 panelon 06-21-2024 Albumin [Mass/Vol] 4.2 g/dL Normal 3.9-4.9 [facility] Comment on above: Order Comment: Speci men Type: BLOOD SPECIMENOrdering Facility: [facility] Address: [address] [place] [address] Performed By: #### 1 9123-9, 28657-8 ####HEWETT LABORATORYCLIA [id number] [place] [address] [place] ALP [Catalytic activity/Vol] 72 U/L Normal 38-113 [facility] Comment on above: Order Comment: Speci men Type: BLOOD SPECIMENOrdering Facility: [facility] Address: [address] [place] [address] Performed By: #### 1 1523-9, 52224-5 ####HEWETT LABORATORYCLIA [id number] [place] [address] [place] ALT [Catalytic activity/Vol] 91 U/L High 10-54 [facility] Comment on above: Order Comment: Speci men Type: BLOOD SPECIMENOrdering Facility: [facility] Address: [address] [place] [address] Performed By: #### 1 6123-9, 35791-2 ####HEWETT LABORATORYCLIA [id number] [place] [address] [place] Anion gap [Moles/Vol] 11 mmol/L Normal 8-15 [facility] Comment on above: Order Comment: Speci men Type: BLOOD SPECIMENOrdering Facility: [facility] Address: [address] [place] [address] Performed By: #### 1 9123-9, 57779-2 ####AMRITA LABORATORYCLIA [id number] [place] [id number] [place] AST [Catalytic activity/Vol] 58 U/L High 14-40 [facility] Comment on above: Order Comment: Speci men Type: BLOOD SPECIMENOrdering Facility: [facility] Address: [address] [place] [address] Performed By: #### 1 23-9, 48066-4 ####AMRITA LABORATORYCLIA [id number] [place] [address] [place] Bilirubin [Mass/Vol] 0.3 mg/dL Normal 0.2-1.3 [facility] Comment on above: Order Comment: Speci men Type: BLOOD SPECIMENOrdering Facility: [facility] Address: [address] [place] [address] Performed By: #### 1 23-9, ####AMRITA LABORATORYCLIA [id number] [place] [address] [place] Calcium [Mass/Vol] 9.6 mg/dL Normal 8.5-10.2 [facility] Comment on above: Order Comment: Speci men Type: BLOOD SPECIMENOrdering Facility: [facility] Address: [address] [place] [address] Performed By: #### 1 23-9, ####AMRITA LABORATORYCLIA [id number] [place] [address] [place] Chloride [Moles/Vol] 99 mmol/L Normal 98-107 [facility] Comment on above: Order Comment: Speci men Type: BLOOD SPECIMENOrdering Facility: [facility] Address: [address] [place] [address] Performed By: #### 1 23-9, ####AMRITA LABORATORYCLIA [id number] [place] [id number] [place] CO2 [Moles/Vol] 28 mmol/L Normal 22-30 [facility] Comment on above: Order Comment: Speci men Type: BLOOD SPECIMENOrdering Facility: [facility] Address: [address] [place] [address] Performed By: #### 1 9123-9, 16117-2 ####[facility] LABORATORYCLIA [id number] [place] [address] [place] Creatinine [Mass/Vol] 0.99 mg/dL Normal 0.73-1.22 [facility] Comment on above: Order Comment: Ara powers Type: BLOOD SPECIMENOrdering Facility: [facility] Address: [address] [place] [address] Performed By: #### 1 9123-9, 32400-6 ####[facility] LABORATORYCLIA [id number] [place] [address] [place] Creatinine and Glomerular filtration rate.predicted panel (S/P/Bld) 91 mL/min/1.73m??? Normal >=60 [facility] Comment on above: Order Comment: Ara powers Type: BLOOD SPECIMENOrdering Facility: [facility] Address: [address] [place] [address] Result Comment: Dee mated Glomerular Filtration Rate [...] accurately reflect actual GFR. Performed By: #### 1 9123-9, 48612-1 ####AMRITA LABORATORYCLIA [id number] [place] [id number] [place] Glucose [Mass/Vol] 102 mg/dL High 74-99 [facility] Comment on above: Order Comment: Ara powers Type: BLOOD SPECIMENOrdering Facility: [facility] Address: [address] [place] [address] Result Comment: The [place] [employer] (ADA) provides guidance for cutoff [...] Standards of Medical Care in Diabetes 2016, [place] [employer]. Diabetes Care. 2016.39(Suppl 1). Performed By: #### 1 9123-9, ####AMRITA LABORATORYCLIA [id number] [place] [id number] [place] Potassium [Moles/Vol] 4.3 mmol/L Normal 3.7-5.1 [facility] Comment on above: Order Comment: Speci men Type: BLOOD SPECIMENOrdering Facility: [facility] Address: [address] [place] [address] Performed By: #### 1 9123-9, ####AMRITA LABORATORYCLIA [id number] [place] [id number] [place] Protein [Mass/Vol] 8.0 g/dL Normal 6.3-8.0 [facility] Comment on above: Order Comment: Speci men Type: BLOOD SPECIMENOrdering Facility: [facility] Address: [address] [place] [address] Performed By: #### 1 9123-9, ####AMRITA LABORATORYCLIA [id number] [place] [id number] [place] Sodium [Moles/Vol] 138 mmol/L Normal 136-144 [facility] Comment on above: Order Comment: Speci men Type: BLOOD SPECIMENOrdering Facility: [facility] Address: [address] [place] [address] Performed By: #### 1 9123-9, ####[facility] LABORATORYCLIA [id number] [place] [address] [place] Urea nitrogen [Mass/Vol] 14 mg/dL Normal 9-24 [facility] Comment on above: Order Comment: Speci men Type: BLOOD SPECIMENOrdering Facility: [facility] Address: [address] [place] [address] Performed By: #### 1 9123-9, 79032-9 ####HEWETT LABORATORYCLIA [id number] [place] [address] [facility] ED NOTEon 06-21-2024 ED NOTE HNO ID: [id number] Author: JOSÉ MIGUEL LARA RN Service: ? Author Type: Registered Nurse Type: ED Notes Filed: 06/21/2024 13:48 Note Text: Bed: 55-ED Expected date: Expected time: Means of arrival: Comments: triage Normal [facility] ED PROV NOTEon 06-21-2024 ED PROV NOTE HNO ID: [id number] Author: GINO ANGEL MD Service: Emergency Medicine Author Type: Physician Type: ED Provider Notes Filed: 06/21/2024 16:14 Note Text: ED Provider Note Patient Name: Piper Rodríguez : 1970 SERVICE DATE: 06/21/24 History Patient presents with: Abdominal Pain: sts laparoscopic hemicolectomy last week and had sutures popped out Patient is a 54-year-old male past medical history of: CAD, hypertension, elevated BMI, hyperlipidemia, SHERIE, anemia, thrombocytopenia, who presents the emergency room for chief complaint of surgical wound opening. Patient had laparoscopic partial colectomy on June [address] Carias at [facility]. States had been doing well. States that yesterday the wound opened minimally. He presented to [facility] for evaluation. States the physician said that this would have to be how it is until it is healed, bandaged up. States that the ED physician spoke with the surgical office and ultimately patient was discharged home. Patient states it was a little worse this morning and then he coughed earlier today and now there is a ton of exposed tissue externally. Patient admits to just only minimal pain. No fevers or chills. No nausea or vomiting. Has been eating and drinking well. Normal bowel movements. No black or bloody stools. PAST MEDICAL HISTORY Diagnosis Date BMI 38.0-38.9,adult Colon cancer (HCC) HTN (hypertension) PAST SURGICAL HISTORY Procedure Laterality Date PAST SURGICAL HISTORY OF Bilateral hip arthroplasty (2018, 2020) PAST SURGICAL HISTORY OF 04/2024 colonoscopy (2019) No family history on file. Social History Tobacco Use Smoking status: Never Smokeless tobacco: Current Types: Chew Vaping Use Vaping status: Never Used Substance and Sexual Activity Alcohol use: Not Currently Drug use: Not Currently Sexual activity: Not on file ALLERGIES No Known Allergies Review of Systems Constitutional: Negative for chills and fever. Gastrointestinal: Positive for abdominal pain. Negative for anal bleeding, blood in stool, diarrhea, nausea and vomiting. Skin: Positive for wound. Negative for color change. Psychiatric/Behavioral: Negative for agitation. All other systems reviewed and are negative. Physical Exam Vitals BP Pulse Temp Temp src Resp SpO2 Weight Height 06/21/24 1343 06/21/24 1343 06/21/24 1343 06/21/24 1343 06/21/24 1343 06/21/24 1343 06/21/24 1344 06/21/24 1344 102/75 61 36.9 ?C (98.4 ?F) Oral 16 98 % 117.9 kg (260 lb) 1.778 m (5' 10 ) Physical Exam Vitals and nursing note reviewed. Constitutional: General: He is not in acute distress. Appearance: Normal appearance. He is not ill-appearing, toxic-appearing or diaphoretic. HENT: Head: Normocephalic and atraumatic. Right Ear: External ear normal. Left Ear: External ear normal. Eyes: General: No scleral icterus. Right eye: No discharge. Left eye: No discharge. Conjunctiva/sclera: Conjunctivae normal. Cardiovascular: Rate and Rhythm: Normal rate and regular rhythm. Pulses: Normal pulses. Heart sounds: Normal heart sounds. No murmur heard. Pulmonary: Effort: Pulmonary effort is normal. No respiratory distress. Breath sounds: Normal breath sounds. Abdominal: General: Abdomen is flat. Bowel sounds are normal. There is no distension. Palpations: Abdomen is soft. There is no mass. Tenderness: There is no abdominal tenderness. There is no guarding or rebound. Hernia: No hernia is present. Comments: Patient has approximately a 5 cm area of longitudinal dehiscence along his surgical wound just proximal to his umbilicus. Large amount of subcutaneous tissue/fat extending through the area of dehiscence. Musculoskeletal: Cervical back: Neck supple. No rigidity. Skin: General: Skin is warm and dry. Neurological: Mental Status: He is alert and oriented to person, place, and time. Mental status is at baseline. Psychiatric: Mood and Affect: Mood normal. Behavior: Behavior normal. Thought Content: Thought content normal. Diagnostic Testing ED Labs Ordered and Reviewed COMPLETE BLOOD COUNT - Normal COMPREHENSIVE METABOLIC PANEL MAGNESIUM Results for orders placed or performed during the hospital encounter of 06/21/24 EKG Impression Sinus bradycardia Otherwise Normal ECG Confirmed by MD ANGEL JAMES ([id number]) on 06/21/2024 2:14:56 PM Procedures ED Course / Clinical Impression Clinical Impressions as of 06/21/24 1437 Wound dehiscence Status post partial colectomy History of colon cancer MDM / Disposition / Plan Patient is a 54-year-old male presents the emergency room for chief complaint of wound. Is hemodynamically stable. No acute distress. No associated infectious complaints. Concern for dehiscence, will require repair. CT and laboratory evaluation placed by triage physician. Consult placed to surgical team for further management and evaluation at bed (more content not included)... Normal [facility] ED Triage Noteon 06-21-2024 ED Triage Note HNO ID: [id number] Author: ETHAN DUMONT DO Service: Emergency Medicine Author Type: Physician Type: ED Triage Notes Filed: 06/21/2024 13:46 Note Text: ED TRIAGE PROVIDER NOTE Patient Name: Piper Rodríguez Service Date: 06/21/24 BRIEF HPI: This is a 54 year old male who presents to the ED with: wound dehiscence, states he coughed this AM and incision opened Denies fevers chills, does have some slight pain Did have some partial opening yesterday but got worse today Had lap colectomy with Dr. Carias on 06/14/2024 BRIEF EXAM: NAD Awake and Alert Midline wound opened with exposed fat protruding INITIAL WORKUP AND DECISION MAKING: Orders Placed This Encounter CT ABD/PEL W IVCON COMPREHENSIVE METABOLIC PANEL (BMP+LFT) MAGNESIUM BLOOD CBC iv contrast (radiology procedure) Further triage/room assignment per nursing protocol I served a limited role in this case performing an expedited screening during the patient's ED triage. Further work up, treatment, follow up on testing ordered from triage, further testing, care, disposition, and final MDM per downstream emergency provider team Please see downstream ED provider's notation for full HANDP as well as MDM SIGNATURE: Ethan Dumont DO [facility] EKGon 06-21-2024 Electrocardiogram Ventricular Rate : 4 7 BPM Atrial Rate : 48 BPM P-R Interval : 173 ms QRS Duration : 105 ms Q-T Interval : 447 ms QTC Calculation(Bazett) : 396 ms Calculated P Friendship : 44 degrees Calculated R Friendship : 40 degrees Calculated T Friendship : 58 degrees Sinus bradycardia Otherwise Normal ECG Confirmed by MD ANGEL JAMES ([id number]) on 06/21/2024 2:14:56 PM NAME : PIPER RODRÍGUEZ PID : [id number] : 1970 Gender : Male Race : ORD : Procedure Date : Jun 21 2024 14:04:20 Edit Date : Jun 21 2024 14:14:59 Diagnosis: Sinus bradycardia Otherwise Normal ECG Confirmed by MD ANGEL JAMES ([id number]) on 06/21/2024 2:14:56 PM Test Reason : Location : 402 : FVED [id number] Overread By : MD ANGEL JAMES Edited By : MD ANGEL JAMES Referred By : , Acquired by : [id number], Normal [facility] HISTORY PHYSICALon HISTORY PHYSICAL HNO ID: [id number] Author: MAIKEL JUSTICE MD Service: Colorectal Author Type: Resident Type: H&P Filed: 06/21/2024 15:05 Note Text: Attestation signed by Donis Carias MD at 06/21/2024 3:24 PM I evaluated the patient and personally participated in the conley components. I agree with the resident's findings and plan with the following revisions and/or additions: patient with fascial dehiscence with omental evisceration. To OR emergently for exploration and wound closure. Plan discussed with patient and his . Post-op path also reviewed Signature: Donis Carias MD Service Date: 06/21/2024 HANDP - SURGICAL SERVICES PATIENT NAME: Piper Rodríguez SERVICE DATE: June 21, 2024 SERVICE TIME: 2:56 PM CONSULTED SERVICE: colorectal surgery REQUESTING PHYSICIAN: Gino Angel MD PRIMARY CARE PHYSICIAN: Gen Peña MD HISTORY OF PRESENT ILLNESS: Mr. 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 Per pt yesterday AM saw his oncologist and at the time had noted a small breakdown of the distal portion of his incision. Nothing was protruding at the time. He was told to just cover it and keep the area clean. Later that day, had noticed that the wound had proceeded to open even more and now was protruding abdominal contents. They were worried so presented to [place] ER. Pt's showed me a photo of wound at that time and it was clear that omentum was protruding from the wound. Per pt and they were at that ER that this happens all the time, they were safe to go home and call the office in the AM and to just continue wet-to-dry dressing over it. Pt called the office this AM with additional concerns and was told to present to [facility] ED for further evaluation. Per pt has otherwise been fine. Tolerating diet, no nausea or emesis, no significant abdominal pain, having bowel function (last BM this AM). Denies fevers, chills, DEWITT, dizziness, CP, SOB. Last ate a shake this AM around 6:30. Last took his prophylactic lovenox shot around 7AM today. PAST MEDICAL HISTORY: PAST MEDICAL HISTORY Diagnosis Date BMI 38.0-38.9,adult Colon cancer (HCC) HTN (hypertension) PAST SURGICAL HISTORY: PAST SURGICAL HISTORY Procedure Laterality Date PAST SURGICAL HISTORY OF Bilateral hip arthroplasty (2018, 2020) PAST SURGICAL HISTORY OF 04/2024 colonoscopy (2019) FAMILY HISTORY: No family history on file. SOCIAL HISTORY: Social History Tobacco Use Smoking status: Never Smokeless tobacco: Current Types: Chew Vaping Use Vaping status: Never Used Substance Use Topics Alcohol use: Not Currently Drug use: Not Currently MEDICATIONS: Prior to Admission Medications: (Not in a hospital admission) Current Facility-Administered Medications Medication Dose Route Frequency NaCl 0.9% iv flush bag 20 mL INTRAVENOUS PRN piperacillin-tazobactam iv piggyback 3.375 g in dextrose (iso-osmotic) 50 mL (ZOSYN) 3.375 g INTRAVENOUS q 6 H ALLERGIES: ALLERGIES No Known Allergies COMPLETE REVIEW OF SYSTEMS: Review of systems is per HPI above. PHYSICAL EXAM: BP 128/76 Pulse 61 Temp 36.9 ?C (98.4 ?F) (Oral) Resp 16 Ht 177.8 cm (5' 10 ) Wt 117.9 kg (260 lb) SpO2 98% BMI 37.31 kg/m? GENERAL: well appearing 54 year old male in no acute distress SKIN: without jaundice HEAD/SINUSES: normocephalic, atraumatic LUNGS: Nonlabored breathing on RA CARDIAC: regular rate ABDOMEN: soft, non-tender, non-distended, evisceration of omentum from previous midline extraction point NEURO: moves all extremities DATA: Diagnostic tests reviewed for today's visit: Most recent labs and imaging results. Significant findings were as listed above in HPI Labs: CBC, Coags, BMP, Mg, Phos Recent Labs 06/21/24 1408 WBC 7.87 HB 14.3 HCT 45.2 PLT 222 NA 138 K 4.3 CHLOR 99 CO2 28 BUN 14 CREAT 0.99 GLUC 102* CA 9.6 MG 2.3 Liver Function, Amylase, AND Lipase Recent Labs 06/21/24 1408 TPROT 8.0 ALB 4.2 ALT 91* AST 58* ALKPHOS 72 TBILI 0.3 ABGs ASSESSMENT AND PLAN: Mr. Rodríguez is a 54 year old male with PMHx EtOH use, new diagnosis of cecal cancer who is now s/p laparoscopic right hemicolectomy 06/14. Discharged on POD2 without concern and now representing d/t wound evisceration. - plan for emergent OR - NPO - ok for antibiotics - consent obtained Case discussed with Dr. Carias SIGNATURE: Maikel Justice MD DATE: June 21, 2024 TIME: 2:56 PM [facility] Magnesium SerPl-mCncon 06-21 Magnesium [Mass/Vol] 2.3 mg/dL Normal 1.7-2.3 [facility] Comment on above: Order Comment: Speci men Type: BLOOD SPECIMENOrdering Facility: [facility] Address: [address] [place] [address] Performed By: #### 1 9123-9, 26893-3 ####[facility] LABORATORYCLIA [id number] [address] OF [facility] NURSING PROGon 06-21-2024 NURSING PROG HNO ID: [id number] Author: OLYA SIEGEL RN Service: Nursing Author Type: Registered Nurse Type: Nursing Progress Note Filed: 06/21/2024 19:56 Note Text: Transfer Note: PATIENT NAME: Piper Rodríguez Patient Location: [place] [address] [address] Room: [place] [address] Patient transferred into room/unit [facility] in stable condition. Actions taken: Room oriented, call light in reach, family at beside. 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 R/B/A of surgery was discussed and informed consent obtained. OPERATIVE FINDINGS: Near complete extraction site fascia dehiscence with figure of 8 sutures unravelled. Fascia intact DESCRIPTION OF PROCEDURE: The patient was brought to the operating room and placed under general anesthesia in supine position. The abdomen was prepped and draped in normal sterile fashion. The patient received appropriate preop antibiotics and DVT prophylaxis. A surgical time-out was performed. The omentum was reduced without issue at the extraction site. The abdomen explored via the extraction site and washed out. There was no concerning intra-abdominal findings. Inspection of the abdominal wall revealed unravelled figure of 8 sutures, but fascia intact. The fascia was closed with figure of 8 with 0 PDS and internal retention sutures with #1 vicryl. The wound was irrigated and closed with stapled. Patient was extubated and taken to PACU in stable condition. ESTIMATED BLOOD LOSS: 5cc SPECIMENS: None DRAINS: None COMPLICATIONS: None INTRAOPERATIVE FLUIDS: See anesthesia record. SPONGE/INSTRUMENT/NEEDLE COUNTS: Correct x2. PRESENCE STATEMENT: I was present for the entire procedure as I have dictated above. Donis Carias M.D. Department of Surgery Division of Colon and Rectal Surgery [facility] 06-20-2024 [facility] Telephone ([facility]) PIPER RODRÍGUEZ ([id number]) 1970 M Date Time Provider Department 06/20/24 DONIS CARIAS [facility] During your visit today, we recorded the following information about you: Maura Casiano 06/20/2024 3:02 PM Signed Patient calling concerned about surgical incision. She states it has opened up. Asking to speak to nurse to find out if they should go to local ER CB# [phone] Jocelyn Cantrell RN 06/20/2024 3:17 PM Signed Returned call. Spoke with his . She said they went to their local ED. It was his bigger incision that opened. The ED doctor was asking them for Dr. Carias's contact information so he can communicate with her. Provided info to physician Allergies As of Date: 06/20/2024 (No Known Allergies) Date Reviewed: 06/15/2024 Reviewed by: Mami Bustos RN - Fully Assessed Reason for Visit: Post Op [174] Prescriptions as of 06/20/2024 - acetaminophen (TYLENOL) 500 mg tablet Take [...] contrast guidelines Problem List As Of Date 06/20/2024 Noted Resolved BMI 38.0-38.9,adult [Z68.38] 06/08/2024 HTN (hypertension) [I10] 06/08/2024 Smokeless tobacco use [Z72.0] 06/08/2024 SHERIE (obstructive sleep apnea) [G47.33] 06/08/2024 Malignant neoplasm of ascending colon (HCC) [C1*06/14/2024 Nicotine use disorder, F17.2 [F17.200] 06/16/2024 Encounter Status:Closed by JOCELYN CANTRELL on 06/20/24 [facility] CNCOon 06-19-2024 CNCO Letter Text [facility] CNPNon 06-19-2024 CNPN Telephone ([facility]) PIPER RODRÍGUEZ ([id number]) 1970 M Date Time Provider Department 06/19/24 DONIS CARIAS [facility] During your visit today, we recorded the following information about you: Maura Casiano 06/19/2024 1:29 PM Signed Patient had surgery on 06/14/24. He is asking to speak to a nurse about his restrictions and what he can and cannot do # [phone] Jocelyn Cantrell RN 06/19/2024 1:48 PM Signed [...] Fully Assessed Reason for Visit: Patient Question [5517] Prescriptions as of 06/19/2024 - acetaminophen (TYLENOL) [...] 06/16/2024 Encounter Status:Closed by JOCELYN CANTRELL on 06/19/24 Normal [facility] Basic metabolic 2000 panelon 06-16-2024 Anion gap [Moles/Vol] 12 mmol/L Normal 8-15 [facility] Comment on above: Order Comment: Speci men Type: BLOOD SPECIMENOrdering Facility: [facility] Address: [address] [place] [address] Performed By: #### 2 4321-2 ####[facility] LABORATORYCLIA [id number] [place] [address] [place] Calcium [Mass/Vol] 8.9 mg/dL Normal 8.5-10.2 [facility] Comment on above: Order Comment: Speci men Type: BLOOD SPECIMENOrdering Facility: [facility] Address: [address] [place] [address] Performed By: #### 2 4321-2 ####HEWETT LABORATORYCLIA [id number] [place] [address] [place] Chloride [Moles/Vol] 103 mmol/L Normal 98-107 [facility] Comment on above: Order Comment: Speci men Type: BLOOD SPECIMENOrdering Facility: [facility] Address: [address] [place] [address] Performed By: #### 2 4321-2 ####[facility] LABORATORYCLIA [id number] [place] [id number] [place] CO2 [Moles/Vol] 22 mmol/L Normal 22-30 [facility] Comment on above: Order Comment: Speci men Type: BLOOD SPECIMENOrdering Facility: [facility] Address: [address] [place] [address] Performed By: #### 2 4321-2 ####[facility] LABORATORYCLIA [id number] [place] [address] [place] Creatinine [Mass/Vol] 0.90 mg/dL Normal 0.73-1.22 [facility] Comment on above: Order Comment: Speci men Type: BLOOD SPECIMENOrdering Facility: [facility] Address: [address] [place] [address] Performed By: #### 2 4321-2 ####[facility] LABORATORYCLIA [id number] [place] [address] [facility] Creatinine and Glomerular filtration rate.predicted panel (S/P/Bld) 102 mL/min/1.73m??? Normal >=60 [facility] Comment on above: Order Comment: Speci men Type: BLOOD SPECIMENOrdering Facility: [facility] Address: [address] [place] [address] Result Comment: Dee mated Glomerular Filtration Rate [...] actual GFR. Performed By: #### 2 4321-2 ####[facility] LABORATORYCLIA [id number] [place] [address] [place] Glucose [Mass/Vol] 162 mg/dL High 74-99 [facility] Comment on above: Order Comment: Ara powers Type: BLOOD SPECIMENOrdering Facility: [facility] Address: [address] [place] [address] Result Comment: The [place] [employer] (ADA) provides guidance for cutoff [...] Standards of Medical Care in Diabetes 2016, [place] [employer]. Diabetes Care. 2016.39(Suppl 1). Performed By: #### 2 4321-2 ####HEWET[facility] LABORATORYCLIA [id number] [place] [address] [place] Potassium [Moles/Vol] 4.4 mmol/L Normal 3.7-5.1 [facility] Comment on above: Order Comment: Ara powers Type: BLOOD SPECIMENOrdering Facility: [facility] Address: [address] [place] [address] Performed By: #### 2 4321-2 ####[facility] LABORATORYCLIA [id number] [place] [id number] [place] Sodium [Moles/Vol] 137 mmol/L Normal 136-144 [facility] Comment on above: Order Comment: Williani men Type: BLOOD SPECIMENOrdering Facility: [facility] Address: [address] [place] [address] Performed By: #### 2 4321-2 ####[facility] LABORATORYCLIA [id number] [place] [address] [place] Urea nitrogen [Mass/Vol] 10 mg/dL Normal 9-24 [facility] Comment on above: Order Comment: Speci men Type: BLOOD SPECIMENOrdering Facility: [facility] Address: [address] [place] [address] Performed By: #### 2 4321-2 ####[facility] LABORATORYCLIA [id number] [place] [id number] [place] CBC W Auto Differential pane l (Bld)on 06-16-2024 Basophils (Bld) [#/Vol] 0.04 10*3/uL Normal <0.11 [facility] Comment on above: Order Comment: Speci men Type: BLOOD SPECIMENOrdering Facility: [facility] Address: [address] [place] [address] Performed By: #### 5 7021-8 ####AMRITA LABORATORYCLIA [id number] [place] [address] [place] Basophils/100 WBC (Bld) 0.6 % Normal [facility] Comment on above: Order Comment: Speci men Type: BLOOD SPECIMENOrdering Facility: [facility] Address: [address] [place] [address] Performed By: #### 5 7021-8 ####AMR[facility] LABORATORYCLIA [id number] [place] [address] [place] Differential cell count method Nom (Bld) Auto Normal [facility] Comment on above: Order Comment: Speci men Type: BLOOD SPECIMENOrdering Facility: [facility] Address: [address] [place] [address] Performed By: #### 5 7021-8 ####AM[facility] LABORATORYCLIA [id number] [place] [address] [place] Eosinophils (Bld) [#/Vol] 0.16 10*3/uL Normal <0.46 [facility] Comment on above: Order Comment: Speci men Type: BLOOD SPECIMENOrdering Facility: [facility] Address: [address] [place] [address] Performed By: #### 5 7021-8 ####AM[facility] LABORATORYCLIA [id number] [place] [address] [place] Eosinophils/100 WBC (Bld) 2.4 % Normal [facility] Comment on above: Order Comment: Speci men Type: BLOOD SPECIMENOrdering Facility: [facility] Address: [address] [place] [address] Performed By: #### 5 7021-8 ####AMR[facility] LABORATORYCLIA [id number] [place] [address] [place] Erythrocyte distribution width (RBC) [Ratio] 15.6 % High 11.5-15.0 [facility] Comment on above: Order Comment: Speci men Type: BLOOD SPECIMENOrdering Facility: [facility] Address: [address] [place] [address] Performed By: #### 5 7021-8 ####AM[facility] LABORATORYCLIA [id number] [place] [address] [place] Hematocrit (Bld) [Volume fraction] 44.0 % Normal 39.0-51.0 [facility] Comment on above: Order Comment: Speci men Type: BLOOD SPECIMENOrdering Facility: [facility] Address: [address] [place] [address] Performed By: #### 5 7021-8 ####AM[facility] LABORATORYCLIA [id number] [place] [address] [place] Hemoglobin (Bld) [Mass/Vol] 13.8 g/dL Normal 13.0-17.0 [facility] Comment on above: Order Comment: Speci men Type: BLOOD SPECIMENOrdering Facility: [facility] Address: [address] [place] [address] Performed By: #### 5 7021-8 ####[facility] LABORATORYCLIA [id number] [place] [address] [place] Immature granulocytes (Bld) [#/Vol] 0.03 10*3/uL Normal <0.10 [facility] Comment on above: Order Comment: Speci men Type: BLOOD SPECIMENOrdering Facility: [facility] Address: [address] [place] [address] Performed By: #### 5 7021-8 ####AM[facility] LABORATORYCLIA [id number] [place] [address] [place] Immature granulocytes/100 WBC (Bld) 0.5 % Normal [facility] Comment on above: Order Comment: Speci men Type: BLOOD SPECIMENOrdering Facility: [facility] Address: [address] [place] [address] Performed By: #### 5 7021-8 ####[facility] LABORATORYCLIA [id number] [place] [address] [place] Lymphocytes (Bld) [#/Vol] 1.23 10*3/uL Normal 1.00-4.00 [facility] Comment on above: Order Comment: Speci men Type: BLOOD SPECIMENOrdering Facility: [facility] Address: [address] [place] [address] Performed By: #### 5 7021-8 ####[facility] LABORATORYCLIA [id number] [address] [place] Lymphocytes/100 WBC (Bld) 18.8 % Normal [facility] Comment on above: Order Comment: Speci men Type: BLOOD SPECIMENOrdering Facility: [facility] Address: [address] [place] [address] Performed By: #### 5 7021-8 ####[facility] LABORATORYCLIA [id number] [place] [address] [place] MCH (RBC) [Entitic mass] 29.9 pg Normal 26.0-34.0 [facility] Comment on above: Order Comment: Speci men Type: BLOOD SPECIMENOrdering Facility: [facility] Address: [address] [place] [address] Performed By: #### 5 7021-8 ####[facility] LABORATORYCLIA [id number] [place] [address] [place] MCHC (RBC) [Mass/Vol] 31.4 g/dL Normal 30.5-36.0 [facility] Comment on above: Order Comment: Speci men Type: BLOOD SPECIMENOrdering Facility: [facility] Address: [address] [place] [address] Performed By: #### 5 7021-8 ####[facility] LABORATORYCLIA [id number] [place] [id number] [place] MCV (RBC) [Entitic vol] 95.4 fL Normal 80.0-100.0 [facility] Comment on above: Order Comment: Speci men Type: BLOOD SPECIMENOrdering Facility: [facility] Address: [address] [place] [address] Performed By: #### 5 7021-8 ####[facility] LABORATORYCLIA [id number] [place] [address] [place] Monocytes (Bld) [#/Vol] 0.76 10*3/uL Normal <0.87 [facility] Comment on above: Order Comment: Speci men Type: BLOOD SPECIMENOrdering Facility: [facility] Address: [address] [place] [address] Performed By: #### 5 7021-8 ####[facility] LABORATORYCLIA [id number] [place] [address] [place] Monocytes/100 WBC (Bld) 11.6 % Normal [facility] Comment on above: Order Comment: Speci men Type: BLOOD SPECIMENOrdering Facility: [facility] Address: [address] [place] [address] Performed By: #### 5 7021-8 ####[facility] LABORATORYCLIA [id number] [place] [address] [place] Neutrophils (Bld) [#/Vol] 4.32 10*3/uL Normal 1.45-7.50 [facility] Comment on above: Order Comment: Speci men Type: BLOOD SPECIMENOrdering Facility: [facility] Address: [address] [place] [address] Performed By: #### 5 7021-8 ####[facility] LABORATORYCLIA [id number] [place] [address] [place] Neutrophils/100 WBC (Bld) 66.1 % Normal [facility] Comment on above: Order Comment: Speci men Type: BLOOD SPECIMENOrdering Facility: [facility] Address: [address] [place] [address] Performed By: #### 5 7021-8 ####[facility] LABORATORYCLIA [id number] [place] [address] [place] Nucleated RBC (Bld) [#/Vol] 10*3/uL Normal <0.01 [facility] Comment on above: Order Comment: Speci men Type: BLOOD SPECIMENOrdering Facility: [facility] Address: [address] [place] [address] Performed By: #### 5 7021-8 ####[facility] LABORATORYCLIA [id number] [place] [address] [place] Nucleated RBC/100 WBC (Bld) [Ratio] 0.0 /100 WBC Normal [facility] Comment on above: Order Comment: Speci men Type: BLOOD SPECIMENOrdering Facility: [facility] Address: [address] [place] [address] Performed By: #### 5 7021-8 ####[facility] LABORATORYCLIA [id number] [place] [address] [place] Platelet mean volume (Bld) [Entitic vol] 11.2 fL Normal 9.0-12.7 [facility] Comment on above: Order Comment: Speci men Type: BLOOD SPECIMENOrdering Facility: [facility] Address: [address] [place] [address] Performed By: #### 5 7021-8 ####[facility] LABORATORYCLIA [id number] [place] [address] [place] Platelets (Bld) [#/Vol] 191 10*3/uL Normal 150-400 [facility] Comment on above: Order Comment: Speci men Type: BLOOD SPECIMENOrdering Facility: [facility] Address: [address] [place] [address] Performed By: #### 5 7021-8 ####[facility] LABORATORYCLIA [id number] [place] [address] [place] RBC (Bld) [#/Vol] 4.61 10*6/uL Normal 4.20-6.00 [facility] Comment on above: Order Comment: Speci men Type: BLOOD SPECIMENOrdering Facility: [facility] Address: [address] [place] [address] Performed By: #### 5 7021-8 ####[facility] LABORATORYCLIA [id number] [address] [place] WBC (Bld) [#/Vol] 6.54 10*3/uL Normal 3.70-11.00 [facility] Comment on above: Order Comment: Speci men Type: BLOOD SPECIMENOrdering Facility: [facility] Address: [address] [place] [place] [address] Performed By: #### 5 7021-8 ####[facility] LABORATORYCLIA [id number] [place] [address] [facility] CNDSon 06-16-2024 CNDS HNO ID: [id number] Author: DONIS CARIAS MD Service: Colorectal Author [...] which included preparing to see the patient, [id number] patient care, completing clinical documentation, obtaining and/or reviewing separately obtained history, performing a medically appropriate examination, and care coordination (not separately reported). SIGNATURE: 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 APRN.CIRCULAR DISTRIBUTOR DATE: June 16, 2024 (more content not included)... Normal [facility] Basic metabolic 2000 panelon 06-15-2024 Anion gap [Moles/Vol] 13 mmol/L Normal 8-15 [facility] Comment on above: Order Comment: Speci men Type: BLOOD SPECIMENOrdering Facility: [facility] Address: [address] [place] [address] Performed By: #### 2 4321-2 ####[facility] LABORATORYCLIA [id number] [place] [address] [place] Calcium [Mass/Vol] 8.9 mg/dL Normal 8.5-10.2 [facility] Comment on above: Order Comment: Speci men Type: BLOOD SPECIMENOrdering Facility: [facility] Address: [address] [place] [address] Performed By: #### 2 4321-2 ####[facility] LABORATORYCLIA [id number] [place] [id number] [place] Chloride [Moles/Vol] 100 mmol/L Normal 98-107 [facility] Comment on above: Order Comment: Speci men Type: BLOOD SPECIMENOrdering Facility: [facility] Address: [address] [place] [address] Performed By: #### 2 4321-2 ####[facility] LABORATORYCLIA [id number] [place] [address] [place] CO2 [Moles/Vol] 21 mmol/L Low 22-30 [facility] Comment on above: Order Comment: Speci men Type: BLOOD SPECIMENOrdering Facility: [facility] [facility] Address: [address] [place] [address] Performed By: #### 2 4321-2 ####[facility] LABORATORYCLIA [id number] [place] [address] [place] Creatinine [Mass/Vol] 1.25 mg/dL High 0.73-1.22 [facility] Comment on above: Order Comment: Speci men Type: BLOOD SPECIMENOrdering Facility: [facility] Address: [address] [place] [address] Performed By: #### 2 4321-2 ####[facility] LABORATORYCLIA [id number] [place] [address] [place] Creatinine and Glomerular filtration rate.predicted panel (S/P/Bld) 69 mL/min/1.73m??? Normal >=60 [facility] Comment on above: Order Comment: Speci men Type: BLOOD SPECIMENOrdering Facility: [facility] Address: [address] [place] [address] Result Comment: Dee mated Glomerular Filtration Rate [...] actual GFR. Performed By: #### 2 4321-2 ####[facility] LABORATORYCLIA [id number] [place] [address] [place] Glucose [Mass/Vol] 105 mg/dL High 74-99 [facility] Comment on above: Order Comment: Speci men Type: BLOOD SPECIMENOrdering Facility: [facility] Address: [address] [place] [address] Result Comment: The [place] Diabetes [employer] (ADA) provides guidance for cutoff [...] Standards of Medical Care in Diabetes 2016, [place] [employer]. Diabetes Care. 2016.39(Suppl 1). Performed By: #### 2 4321-2 ####[facility] LABORATORYCLIA [id number] [place] [address] [place] Potassium [Moles/Vol] 4.8 mmol/L Normal 3.7-5.1 [facility] Comment on above: Order Comment: Speci men Type: BLOOD SPECIMENOrdering Facility: [facility] Address: [address] [place] [id number] Performed By: #### 2 4321-2 ####[facility] LABORATORYCLIA [id number] [place] [address] [place] Sodium [Moles/Vol] 134 mmol/L Low 136-144 [facility] Comment on above: Order Comment: Speci men Type: BLOOD SPECIMENOrdering Facility: [facility] Address: [address] [place] [address] Performed By: #### 2 4321-2 ####[facility] LABORATORYCLIA [id number] [place] [address] [place] [facility] Urea nitrogen [Mass/Vol] 19 mg/dL Normal 9-24 [facility] Comment on above: Order Comment: Speci men Type: BLOOD SPECIMENOrdering Facility: [facility] Address: [address] [place] [address] Performed By: #### 2 4321-2 ####AMR[facility] LABORATORYCLIA [id number] [place] [address] [place] CBC W Auto Differential pane l (Bld)on 06-15-2024 Basophils (Bld) [#/Vol] 0.03 10*3/uL Normal <0.11 [facility] Comment on above: Order Comment: Speci men Type: BLOOD SPECIMENOrdering Facility: [facility] Address: [address] [place] [address] Performed By: #### 5 7021-8 ####AMRITA LABORATORYCLIA [id number] [place] [address] [place] Basophils/100 WBC (Bld) 0.3 % Normal [facility] Comment on above: Order Comment: Speci men Type: BLOOD SPECIMENOrdering Facility: [facility] Address: [address] [place] [address] Performed By: #### 5 7021-8 ####[facility]RITA LABORATORYCLIA [id number] [address] [place] Differential cell count method Nom (Bld) Auto Normal [facility] Comment on above: Order Comment: Speci men Type: BLOOD SPECIMENOrdering Facility: [facility] Address: [address] [place] [address] Performed By: #### 5 7021-8 ####[facility] LABORATORYCLIA [id number] [place] [address] [place] Eosinophils (Bld) [#/Vol] 10*3/uL Normal <0.46 [facility] Comment on above: Order Comment: Speci men Type: BLOOD SPECIMENOrdering Facility: [facility] Address: [address] [place] [address] Performed By: #### 5 7021-8 ####[facility] LABORATORYCLIA [id number] [address] [place] Eosinophils/100 WBC (Bld) 0.2 % Normal [facility] Comment on above: Order Comment: Speci men Type: BLOOD SPECIMENOrdering Facility: [facility] Address: [address] [place] [address] Performed By: #### 5 7021-8 ####[facility] LABORATORYCLIA [id number] [address] [place] Erythrocyte distribution width (RBC) [Ratio] 15.5 % High 11.5-15.0 [facility] Comment on above: Order Comment: Speci men Type: BLOOD SPECIMENOrdering Facility: [facility] Address: [address] [place] [address] Performed By: #### 5 7021-8 ####[facility] LABORATORYCLIA [id number] [address] [place] Hematocrit (Bld) [Volume fraction] 41.5 % Normal 39.0-51.0 [facility] Comment on above: Order Comment: Speci men Type: BLOOD SPECIMENOrdering Facility: [facility] Address: [address] [place] [address] Performed By: #### 5 7021-8 ####[facility] LABORATORYCLIA [id number] [address] [place] Hemoglobin (Bld) [Mass/Vol] 13.8 g/dL Normal 13.0-17.0 [facility] Comment on above: Order Comment: Speci men Type: BLOOD SPECIMENOrdering Facility: [facility] Address: [address] [place] [address] Performed By: #### 5 7021-8 ####[facility] LABORATORYCLIA [id number] [place] [address] [place] Immature granulocytes (Bld) [#/Vol] 0.06 10*3/uL Normal <0.10 [facility] Comment on above: Order Comment: Speci men Type: BLOOD SPECIMENOrdering Facility: [facility] Address: [address] [place] [address] Performed By: #### 5 7021-8 ####[facility] LABORATORYCLIA [id number] [address] Immature granulocytes/100 WBC (Bld) 0.6 % Normal [facility] Comment on above: Order Comment: Speci men Type: BLOOD SPECIMENOrdering Facility: [facility] Address: [address] [place] [address] Performed By: #### 5 7021-8 ####[facility] LABORATORYCLIA [id number] [address] Lymphocytes (Bld) [#/Vol] 1.01 10*3/uL Normal 1.00-4.00 [facility] Comment on above: Order Comment: Speci men Type: BLOOD SPECIMENOrdering Facility: [facility] Address: [address] [place] [address] Performed By: #### 5 7021-8 ####[facility] LABORATORYCLIA [id number] [address] Lymphocytes/100 WBC (Bld) 10.3 % Normal [facility] Comment on above: Order Comment: Speci men Type: BLOOD SPECIMENOrdering Facility: [facility] Address: [address] [place] [address] Performed By: #### 5 7021-8 ####[facility] LABORATORYCLIA [id number] [address] [place] MCH (RBC) [Entitic mass] 30.6 pg Normal 26.0-34.0 [facility] Comment on above: Order Comment: Speci men Type: BLOOD SPECIMENOrdering Facility: [facility] Address: [address] [place] [address] Performed By: #### 5 7021-8 ####[facility] LABORATORYCLIA [id number] [place] [address] [place] MCHC (RBC) [Mass/Vol] 33.3 g/dL Normal 30.5-36.0 [facility] Comment on above: Order Comment: Speci men Type: BLOOD SPECIMENOrdering Facility: [facility] Address: [address] [place] [address] Performed By: #### 5 7021-8 ####[facility] LABORATORYCLIA [id number] [place] [address] [place] MCV (RBC) [Entitic vol] 92.0 fL Normal 80.0-100.0 [facility] Comment on above: Order Comment: Speci men Type: BLOOD SPECIMENOrdering Facility: [facility] Address: [address] [place] [address] Performed By: #### 5 7021-8 ####[facility] LABORATORYCLIA [id number] [place] [address] [place] Monocytes (Bld) [#/Vol] 1.07 10*3/uL High <0.87 [facility] Comment on above: Order Comment: Speci men Type: BLOOD SPECIMENOrdering Facility: [facility] Address: [address] [place] [address] Performed By: #### 5 7021-8 ####[facility] LABORATORYCLIA [id number] [place] [address] [place] Monocytes/100 WBC (Bld) 10.9 % Normal [facility] Comment on above: Order Comment: Speci men Type: BLOOD SPECIMENOrdering Facility: [facility] Address: [address] [place] [address] Performed By: #### 5 7021-8 ####[facility] LABORATORYCLIA [id number] [place] [address] [place] Neutrophils (Bld) [#/Vol] 7.59 10*3/uL High 1.45-7.50 [facility] Comment on above: Order Comment: Speci men Type: BLOOD SPECIMENOrdering Facility: [facility] Address: [address] [place] [address] Performed By: #### 5 7021-8 ####[facility] LABORATORYCLIA [id number] [place] [address] [place] Neutrophils/100 WBC (Bld) 77.7 % Normal [facility] Comment on above: Order Comment: Speci men Type: BLOOD SPECIMENOrdering Facility: [facility] Address: [address] [place] [address] Performed By: #### 5 7021-8 ####[facility] LABORATORYCLIA [id number] [place] [address] [place] Nucleated RBC (Bld) [#/Vol] 10*3/uL Normal <0.01 [facility] Comment on above: Order Comment: Speci men Type: BLOOD SPECIMENOrdering Facility: [facility] Address: [address] [place] [address] Performed By: #### 5 7021-8 ####[facility] LABORATORYCLIA [id number] [place] [address] [place] Nucleated RBC/100 WBC (Bld) [Ratio] 0.0 /100 WBC Normal [facility] Comment on above: Order Comment: Speci men Type: BLOOD SPECIMENOrdering Facility: [facility] Address: [address] [place] [address] Performed By: #### 5 7021-8 ####[facility] LABORATORYCLIA [id number] [place] [address] [place] Platelet mean volume (Bld) [Entitic vol] 10.8 fL Normal 9.0-12.7 [facility] Comment on above: Order Comment: Speci men Type: BLOOD SPECIMENOrdering Facility: [facility] Address: [address] [place] [address] Performed By: #### 5 7021-8 ####[facility] LABORATORYCLIA [id number] [place] [address] [place] Platelets (Bld) [#/Vol] 176 10*3/uL Normal 150-400 [facility] Comment on above: Order Comment: Speci men Type: BLOOD SPECIMENOrdering Facility: [facility] Address: [address] [place] [address] Performed By: #### 5 7021-8 ####[facility] LABORATORYCLIA [id number] [place] [address] [place] RBC (Bld) [#/Vol] 4.51 10*6/uL Normal 4.20-6.00 [facility] Comment on above: Order Comment: Speci men Type: BLOOD SPECIMENOrdering Facility: [facility] Address: [address] [place] [address] Performed By: #### 5 7021-8 ####[facility] LABORATORYCLIA [id number] [place] [address] [place] [facility] [place] WBC (Bld) [#/Vol] 9.78 10*3/uL Normal 3.70-11.00 [facility] Comment on above: Order Comment: Speci men Type: BLOOD SPECIMENOrdering Facility: [facility] Address: [address] [place] [address] Performed By: #### 5 7021-8 ####[facility] LABORATORYCLIA [id number] [place] [address] [facility] NUTRITIONon 06-15-2024 NUTRITION HNO ID: [id number] Author: RADHIKA ARZATE RD Service: Nutrition Therapy [...] ARGELIA Zhang June 15, 2024 9:44 AM [facility] ANES POSTPROC EVALon 025 ANES POSTPROC EVAL HNO ID: [id number] Author: ILA MORTENSEN MD Service: Critical Care Author Type: Anesthesiologist Type: Anesthesia Postprocedure Evaluation Filed: 06/14/2024 16:00 Note Text: POST ANESTHESIA EVALUATION NOTE : 1970 Procedure Summary Date: 06/14/24 Room / Location: OR / [facility] OR Anesthesia Start: 847 Anesthesia Stop: 1137 Procedure: LAPAROSCOPY COLECTOMY, PARTIAL, W/ REMOVAL TERMINAL [...] June 14, 2024 TIME: 3:59 PM CSN: [id number] [facility] ANES PRE-OPon 06-14-2024 ANES PRE-OP HNO ID: [id number] Author: ILA MORTENSEN MD Service: Critical Care Author Type: Anesthesiologist Type: Anesthesia Preprocedure Evaluation Filed: 06/14/2024 09:24 Note Text: ANESTHESIOLOGY DAY OF SURGERY NOTE : 1970 Procedure Information Anesthesia Start Date/Time: 06/14/24 0848 Procedure: LAPAROSCOPY COLECTOMY, PARTIAL, W/ REMOVAL TERMINAL ILEUM W/ ILEOCOLOSTOMY (Abdomen) Location: [facility] OR11 / [facility] OR Surgeons: Donis Carias [...] and consent discussed: yes. Patient / Responsible Republican agrees to proceed: yes Patient / Surrogate [...] June 14, 2024 TIME: 9:23 AM CSN: [id number] [facility] MISMATCH REPAIR PROTEINS BY IHCon 06-14-2024 AP BIOMARKER DISCLAIMER [facility] Comment on above: Order Comment: Speci men Type: TISSUE SPECIMENOrdering Facility: [facility] Address: [address] [place] [address], [place] [id number] Result Comment: Martin Jiménez Test (LDT) Disclaimer: Performance characteristics of immunohistochemical, immunofluorescent and chromogenic in-situ hybridization tests have been determined by the performing laboratory within [facility]???s [facility] Pathology and Laboratory Medicine Department ([facility], [facility], [facility], [facility], [facility], or [facility]) in a manner consistent with CLIA requirements. One or more of these tests have not been cleared or approved by the FDA. RT-PLM is regulated under CLIA as qualified to perform high-complexity testing. These tests are used for clinical purposes. They should not be regarded as investigational or for research. Positive and negative controls stain appropriately. Performed By: #### L [id number] ####[facility] LABCLIA [id number] [address] AP BLOCK ID A6 Normal [facility] Comment on above: Order Comment: Speci gio Type: TISSUE SPECIMENOrdering Facility: [facility] Address: [address] [place] [address] Performed By: #### L [id number] ####[facility] LABCLIA [id number] [address] BIOMARKER INTERPRETATION COMMENT AND REFERENCE RANGE [facility] Comment on above: Order Comment: Ara powers Type: TISSUE SPECIMENOrdering Facility: [facility] Address: [address] [place] [address] Result Comment: Inta ct expression of MMR (mismatch repair) proteins by immunohistochemistry is highly correlated with a microsatellite stable result by MSI (microsatellite instability) PCR analysis, and the results from these tests are viewed as clinically equivalent by the FDA. This result excludes at least 90-95% of Mcgrath syndrome. These tests are an imperfect screen because some mutations may not produce loss of immunohistochemical expression. MSI molecular testing can be performed upon request in cases with a high clinical suspicion and appropriate family history. In a phase 2 study of patients with metastatic carcinoma, Alana et al. ([facility] 2015;372:250-16) reported that the clinical benefit of pembrolizumab, an anti-programmed 1 (PD-1) immune checkpoint inhibitor, was predicted by the tumor's mismatch repair status; mismatch repair deficient (dMMR) tumors are more responsive to PD-1 blockade than mismatch repair proficient tumors. Pembrolizumab is FDA-approved for treating adult and pediatric patients with unresectable or metastatic solid tumors that display microsatellite instability-high (MSI-H) by PCR assay or dMMR by immunohistochemistry (IHC). The FDA does not distinguish between PCR and IHC-based assays, as these are considered equivalent and complimentary tests. As clinically indicated, and in the appropriate setting of genetic counseling with informed patient consent, further genetic testing may be helpful. For more information or questions about this result, please call the [facility] at [phone]. Performed By: #### L [id number] ####[facility] LABIA [id number] [address] BIOMARKER METHOD Immunohistochemistry was performed on formalin fixed paraffin-embedded tissue using the following clones: MLH1 (clone M1 mouse monoclonal); MSH2 ([id number] mouse monoclonal); and MSH6 (SP93 rabbit monoclonal); followed by ultrasensitive bright field detection (Optiview with amplification) from [[employer], [place]]. PMS2 (EP51 Rabbit monoclonal, [employer] Roll20); followed by ultrasensitive bright field detection ( Rosales Refine Polymer DAB Detection) from [[employer], [place], [place]]. [facility] Comment on above: Order Comment: Speci men Type: TISSUE SPECIMENOrdering Facility: [facility] Address: [address] [place] [address] Performed By: #### L [id number] ####[facility] LABIA [id number] [address] CASE NUMBER MMR [id number] [facility] Comment on above: Order Comment: Speci men Type: TISSUE SPECIMENOrdering Facility: [facility] Address: [address] [place] [address] Performed By: #### L [id number] ####[facility] LABCLIA [id number] [address] [place] FIXATIVE Formalin, 10% Neutra l Buffered [facility] Comment on above: Order Comment: Speci men Type: TISSUE SPECIMENOrdering Facility: [facility] Address: [address] [place] [address] Performed By: #### L [id number] ####[facility] LABCLIA [id number] [place] [address] [place] MLH1 IMMUNOHISTOCHEMICAL RESULTS Normal/Intact Nuclear Expression Normal [facility] Comment on above: Order Comment: Speci men Type: TISSUE SPECIMENOrdering Facility: [facility] Address: [address] [place], [place] [address] Performed By: #### L [id number] ####[facility] LABCLIA [id number] [place] [address] [place] MLH1 PROMOTER METHYLATION ASSAY No Normal [facility] Comment on above: Order Comment: Speci men Type: TISSUE SPECIMENOrdering Facility: [facility] Address: [address] [place] [address] Performed By: #### L [id number] ####[facility] LABCLIA [id number] [place] [address] [place] MMR INTERPRETATION Proficient (Microsat ellite Stable) Normal [facility] Comment on above: Order Comment: Speci men Type: TISSUE SPECIMENOrdering Facility: [facility] Address: [address] [place], [place] [address] Performed By: #### L [id number] ####[facility] LABCLIA [id number] [place] [address] [place] MSH2 IMMUNOHISTOCHEMICAL RESULTS Normal/Intact Nuclear Expression Normal [facility] Comment on above: Order Comment: Speci men Type: TISSUE SPECIMENOrdering Facility: [facility] Address: [address] [place] [address] Performed By: #### L [id number] ####[facility] LABCLIA [id number] [place] [address] [place] MSH6 IMMUNOHISTOCHEMICAL RESULTS Normal/Intact Nuclear Expression Normal [facility] Comment on above: Order Comment: Speci men Type: TISSUE SPECIMENOrdering Facility: [facility] Address: [address] [place], [place] [address] Performed By: #### L [id number] ####[facility] LABCLIA [id number] [address] PMS2 IMMUNOHISTOCHEMICAL RESULTS Normal/Intact Nuclear Expression Normal [facility] Comment on above: Order Comment: Speci men Type: TISSUE SPECIMENOrdering Facility: [facility] Address: [address] [place] [address] Performed By: #### L [id number] ####[facility] LABCLIA [id number] [address] [place] TUMOR TYPE MMR Primary Colorectal Adenocarcinoma Normal [facility] Comment on above: Order Comment: Speci men Type: TISSUE SPECIMENOrdering Facility: [facility] Address: [address] [place] [address] Performed By: #### L [id number] ####[facility] LABCLIA [id number] [address] OF [place] OPERATIVE NOon 06-14-2024 OPERATIVE NO HNO ID: [id number] Author: DONIS CARIAS MD Service: Colorectal Author Type: Physician Type: Operative Report Filed: 06/21/2024 15:52 Note Text: COLON AND RECTAL SURGERY OPERATIVE REPORT PATIENT NAME: Piper Rodríguez ADMISSION DATE: 06/14/2024 LOG ID: [id number] SURGERY/PROCEDURE DATE: 06/14/2024 INCISION/PROCEDURE START TIME: 9:17 AM INCISION CLOSE/PROCEDURE END TIME: 11:24 AM AGE: [age] year old SEX: male SURGEON(S)/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 The bowel was lined [...] anastomosis was inspected (more content not included)... [facility] SURGICAL PATHOLOGYon 025 BLOCK FOR ADDITIONAL BIOMARKERS/MOLECULAR STUDIES A6 [facility] Comment on above: Order Comment: Speci men Type: TISSUE SPECIMENOrdering Facility: [facility] Address: [address] [place] [address] Performed By: #### S ####[facility] LABCLIA [id number] [address] OF [facility] LABORATORYCLIA [id number] [address] [place] CASE REPORT [facility] Comment on above: Order Comment: Speci men Type: TISSUE SPECIMENOrdering Facility: [facility] Address: [address] [place] [address] Result Comment: Surg [facility] Pathology Report Case: [id number] Authorizing Provider: Donis Carias MD Collected: 06/14/2024 10:43 AM Ordering Location: [facility] Received: 06/14/2024 11:18 AM Operating Room Pathologist: Samir De La Cruz MD Specimen: Colon, Resection, right colon Performed By: #### S ####[facility] LABCLIA [id number] [address] LABORATORYCLIA [id number] [address] CLINICAL HISTORY Normal [facility] Comment on above: Order Comment: Speci men Type: TISSUE SPECIMENOrdering Facility: [facility] Address: [address] [place] [address] Result Comment: Pre- op diagnosis: Malignant neoplasm of ascending colon (HCC) [C18.2] Performed By: #### S ####[facility] LABCLIA [id number] [address] LABORATORYCLIA [id number] [address] FINAL DIAGNOSIS [facility] Comment on above: Order Comment: Speci men Type: TISSUE SPECIMENOrdering Facility: [facility] Address: [address] [place] [address] Result Comment: Term inal ileum, right colon, appendix, and omentum, resection: - Invasive moderately differentiated colonic adenocarcinoma. - Three of 18 lymph nodes involved by metastatic adenocarcinoma (3/18). - Appendix with fibrous obliteration of the tip. - Omentum with no evidence of tumor. - Terminal ileum with no evidence of tumor. - See synoptic report. Performed By: #### S ####[facility] LABCLIA [id number] [address] LABORATORYCLIA [id number] [address] FINAL PERFORMING LAB [facility] Comment on above: Order Comment: Speci men Type: TISSUE SPECIMENOrdering Facility: [facility] Address: [address] [place] [address] Result Comment: Diag nostic interpretation performed at: [facility], [address] [place] [address] CLIA# [id number] Manager New Product: Kenneth Rajput MD Performed By: #### S ####[facility] LABCLIA [id number] [address] STATES [facility] LABORATORYCLIA [id number] [address] STATES [facility] Result Comment: Diag nostic interpretation performed at: [facility], [address] [place] [address] CLIA# [id number] Manager New Product: Kenneth Rajput MD Electronically signed out by: Sophia Amaya MD Performed By: #### L [id number] ####[facility] LABCLIA [id number] [address] STATES [facility] GROSS DESCRIPTION Normal [facility] Comment on above: Order Comment: Speci men Type: TISSUE SPECIMENOrdering Facility: [facility] Address: [address] [place] [address] Result Comment: Jhony suarez, Resection Received in formalin designated right colon is a specimen consisting of a segment of small bowel (9.1 cm in length and averaging 3.7 cm in circumference), segment of colon (21.1 cm in length and measuring up to 8.2 cm in circumference), and appendix (6.8 cm in length by 0.7 cm in diameter. The proximal margin is inked blue, the distal margin is inked orange, and the soft tissue margins are inked black. Examination of the mucosal surface reveals in the ascending colon a spring-pink centrally depressed mass with heaped up borders measuring 5.6 x 4.1 x 0.7 cm which is located 10.1 cm from the distal margin and 13.5 cm from the proximal margin. The mass involves 80% of the lumen. Sectioning of the mass reveals it goes through the muscularis propria into the underlying soft tissue and is located 7.2 cm from the circumferential (radial) soft tissue margin and 8.1 cm to the mesenteric soft tissue margin. The serosal surface is not grossly involved by mass. The remainder of the mucosal surface is spring with normal mucosal ridges. The wall averages 0.3 cm in thickness. The serosal surface is spring and smooth. The mucosal surface of the small bowel is spring with normal mucosal ridges. The wall averages 0.3 cm in thickness. The serosal surface is spring-pink and smooth. The serosal surface of the appendix is spring-pink and smooth. Sectioning of the appendix reveals a pinpoint lumen devoid of fecalith, purulent material, or stones. The wall averages 0.2 cm in thickness. No lesions or perforations are grossly appreciated. Sectioning of the attached soft tissue reveals multiple spring-pink to spring-white lymph nodes measuring up to 0.9 cm. Underlying the mass one of the lymph nodes is possibly positive with direct extension measuring 0.4 x 0.3 x 0.3 cm. Also received in the same container are 2 segments of fibrofatty tissue grossly consistent with omentum which aggregate to 22.5 x 7.3 x 2 cm. Sectioning and palpation does not reveal any areas of induration or nodularity. Traffic Sergeant sections are submitted as follows: A1 perpendicular proximal and distal bowel margins, A2 perpendicular circumferential (radial) soft tissue margin, A3 perpendicular mesenteric soft tissue margin, A4 mass in relation to soft tissue, A5 mass in relation to serosa (serosa inked green), A6 mass with adjacent distal uninvolved bowel, A7 mass with adjacent proximal uninvolved bowel, A8 cecal pouch, A9 ileocecal valve, A10 appendix, A11 lymph node totally submitted in relation to mass, A12-A13 ascending one lymph node bisected totally submitted per cassette, A14 four ascending colon lymph nodes totally submitted, A15 three ascending colon lymph nodes totally submitted, A16 two possible ascending colon lymph nodes totally submitted, A17-A20 one cecal lymph node bisected totally submitted per cassette, A21 two cecal lymph nodes totally submitted, A22 two cecal lymph nodes totally submitted. BF June 14, 2024 1:43 PM Gross examination performed at [facility], [address] [place] [address] Performed By: #### S ####[facility] LABCLIA [id number] [id number] LABORATORYCLIA [id number] [address] [place] SYNOPTIC REPORT Normal [facility] Comment on above: Order Comment: Speci men Type: TISSUE SPECIMENOrdering Facility: [facility] Address: [address] [place] [address] Result Comment: COLO N AND RECTUM: Resection COLON AND RECTUM: RESECTION - All Specimens 8th Edition - Protocol posted: 11/10/2023 SPECIMEN Procedure: Right hemicolectomy TUMOR Tumor Site: Ascending colon Histologic Type: Adenocarcinoma Histologic Grade: G2, moderately differentiated Tumor Size: Greatest dimension (Centimeters): 5.6 cm Tumor Extent: Invades through muscularis propria into the pericolonic or perirectal tissue Macroscopic Tumor Perforation: Not identified Lymphatic and / or Vascular Invasion: Not identified Perineural Invasion: Not identified Tumor Budding Score: High (10 or more) Treatment Effect: No known presurgical therapy MARGINS Margin Status for Invasive Carcinoma: All margins negative for invasive carcinoma Margin Status for Non-Invasive Tumor: All margins negative for high-grade dysplasia / intramucosal carcinoma and low-grade dysplasia REGIONAL LYMPH NODES Regional Lymph Node Status: : Tumor present in regional lymph node(s) Number of Lymph Nodes with Tumor: 3 Number of Lymph Nodes Examined: 18 Tumor Deposits: Not identified pTNM CLASSIFICATION (AJCC 8th Edition) Reporting of pT, pN, and (when applicable) pM categories is based on information available to the pathologist at the time the report is issued. As per the AJCC (Chapter 1, 8th Ed.) it is the managing physician's responsibility to establish the final pathologic stage based upon all pertinent information, including but potentially not limited to this pathology report. pT Category: pT3 pN Category: pN1b ADDITIONAL FINDINGS Additional Findings: None identified Performed By: #### S ####[facility] LABCLIA [id number] [address] LABORATORYIA [id number] [address] [place] ECG COMPLETEon 06-08-2024 ECG COMPLETE Ventricular Rate : 6 2 BPM Atrial Rate : 62 BPM P-R Interval : 170 ms QRS Duration : 94 ms Q-T Interval : 402 ms QTC Calculation(Bazett) : 408 ms Calculated P Friendship : 50 degrees Calculated R Friendship : 18 degrees Calculated T Friendship : 44 degrees NORMAL SINUS RHYTHM NORMAL ECG Confirmed by ALEX METCALF MD ([id number]) on 06/09/2024 6:31:40 AM NAME : PIPER RODRÍGUEZ PID : [id number] : 1970 Gender : Male Race : ORD : [id number] Procedure Date : Jun 08 2024 08:53:10 Edit Date : Jun 09 2024 06:31:44 Diagnosis: NORMAL SINUS RHYTHM NORMAL ECG Confirmed by ALEX METCALF MD ([id number]) on 06/09/2024 6:31:40 AM Test Reason : PRE OP Location : [facility] Overread By : ALEX METCALF MD Edited By : ALXE METCALF MD Referred By : DONIS CARIAS Acquired by : Andrea YATES [facility] HISTORY PHYSICALon HISTORY PHYSICAL HNO ID: [id number] Author: AUBREY BAER PA-C Service: ? Author Type: Physician Rn Camp Type: H&P Filed: 06/08/2024 09:20 Note Text: HISTORY AND PHYSICAL EXAMINATION SERVICE DATE: 06/08/2024 SERVICE TIME: 8:45 AM PRIMARY CARE PHYSICIAN: Gen Peña MD REASON FOR VISIT: Piper Rodríguez is [...] 5 (+SHERIE, unable to tolerate CPAP ) [id number] Score: Age: <65 Sex: male CHF history: No Hypertension history: Yes Stroke/TIA/thromboembolism history: No Vascular disease history: No Diabetes history: No [id number] Score: 1 ARISCAT Score: Age: 51-80 Preoperative [...] Ramos present: no Lip Bite Test: II Microretrognathia/Micronagth ia/Recessed Chin: No DENTAL Dental findings: teeth intact. [...] fevers. Neuro: No history of TIA's, stroke, FISHERIES INSPECTOR tumor, impaired sensorium, hemiplegia, paraplegia or quadraplegia. [...] Skin: Ne (more content not included)... Normal [facility] Rosemarie 06-05-2024 [facility] Telephone ([facility]) PIPER RODRÍGUEZ ([id number]) 1970 M Date Time Provider Department 06/05/24 [...] Allergies) Date Reviewed: 06/02/2024 Reviewed by: Abilio Tang, LINDSAY - Fully Assessed Prescriptions as of [...] Encounter Status:Closed by DONIS CARIAS on 06/05/24 Normal [facility] CBC W Auto Differential pane l (Bld)on 06-02-2024 Basophils (Bld) [#/Vol] 0.06 10*3/uL Normal <0.11 [facility] Comment on above: Order Comment: Speci men Type: BLOOD SPECIMENOrdering Facility: [facility] Address: [address] [place] [address] Performed By: #### 5 7021-8 ####[facility]ATORYCLIA [id number] [place] [address] [place] Basophils/100 WBC (Bld) 1.0 % Normal [facility] Comment on above: Order Comment: Speci men Type: BLOOD SPECIMENOrdering Facility: [facility] Address: [address] [place] [address] Performed By: #### 5 7021-8 ####[facility] LABORATORYCLIA [id number] [place] [address] [place] Differential cell count method Nom (Bld) Auto Normal [facility] Comment on above: Order Comment: Speci men Type: BLOOD SPECIMENOrdering Facility: [facility] Address: [address] [place] [address] Performed By: #### 5 7021-8 ####[facility] LABORATORYCLIA [id number] [place] [address] [place] Eosinophils (Bld) [#/Vol] 0.28 10*3/uL Normal <0.46 [facility] Comment on above: Order Comment: Speci men Type: BLOOD SPECIMENOrdering Facility: [facility] Address: [address] [place] [address] Performed By: #### 5 7021-8 ####[facility] LABORATORYCLIA [id number] [place] [address] [place] Eosinophils/100 WBC (Bld) 4.5 % Normal [facility] Comment on above: Order Comment: Speci men Type: BLOOD SPECIMENOrdering Facility: [facility] Address: [address] [place] [address] Performed By: #### 5 7021-8 ####[facility] LABORATORYCLIA [id number] [place] [address] [place] Erythrocyte distribution width (RBC) [Ratio] 16.0 % High 11.5-15.0 [facility] Comment on above: Order Comment: Speci men Type: BLOOD SPECIMENOrdering Facility: [facility] Address: [address] [place] [address] Performed By: #### 5 7021-8 ####[facility] LABORATORYCLIA [id number] [place] [address] [place] Hematocrit (Bld) [Volume fraction] 46.1 % Normal 39.0-51.0 [facility] Comment on above: Order Comment: Speci men Type: BLOOD SPECIMENOrdering Facility: [facility] Address: [address] [place] [address] Performed By: #### 5 7021-8 ####[facility] LABORATORYCLIA [id number] [place] [id number] [place] Hemoglobin (Bld) [Mass/Vol] 15.1 g/dL Normal 13.0-17.0 [facility] Comment on above: Order Comment: Speci men Type: BLOOD SPECIMENOrdering Facility: [facility] Address: [address] [place] [address] Performed By: #### 5 7021-8 ####[facility] LABORATORYCLIA [id number] [address] [place] Immature granulocytes (Bld) [#/Vol] 0.03 10*3/uL Normal <0.10 [facility] Comment on above: Order Comment: Speci men Type: BLOOD SPECIMENOrdering Facility: [facility] Address: [address] [place] [address] Performed By: #### 5 7021-8 ####[facility] LABORATORYCLIA [id number] [address] Immature granulocytes/100 WBC (Bld) 0.5 % Normal [facility] Comment on above: Order Comment: Speci men Type: BLOOD SPECIMENOrdering Facility: [facility] Address: [address] [place] [address] Performed By: #### 5 7021-8 ####[facility] LABORATORYCLIA [id number] [place] [address] [place] Lymphocytes (Bld) [#/Vol] 1.18 10*3/uL Normal 1.00-4.00 [facility] Comment on above: Order Comment: Speci men Type: BLOOD SPECIMENOrdering Facility: [facility] Address: [address] [place] [address] Performed By: #### 5 7021-8 ####[facility] LABORATORYCLIA [id number] [place] [id number] [place] Lymphocytes/100 WBC (Bld) 18.8 % Normal [facility] Comment on above: Order Comment: Speci men Type: BLOOD SPECIMENOrdering Facility: [facility] Address: [address] [place] [address] Performed By: #### 5 7021-8 ####[facility] LABORATORYCLIA [id number] [address] [place] MCH (RBC) [Entitic mass] 30.3 pg Normal 26.0-34.0 [facility] Comment on above: Order Comment: Speci men Type: BLOOD SPECIMENOrdering Facility: [facility] Address: [address] [place] [address] Performed By: #### 5 7021-8 ####[facility] LABORATORYCLIA [id number] [address] [place] MCHC (RBC) [Mass/Vol] 32.8 g/dL Normal 30.5-36.0 [facility] Comment on above: Order Comment: Speci men Type: BLOOD SPECIMENOrdering Facility: [facility] Address: [address] [place] [address] Performed By: #### 5 7021-8 ####[facility] LABORATORYCLIA [id number] [address] [place] MCV (RBC) [Entitic vol] 92.4 fL Normal 80.0-100.0 [facility] Comment on above: Order Comment: Speci men Type: BLOOD SPECIMENOrdering Facility: [facility] Address: [address] [place] [address] Performed By: #### 5 7021-8 ####[facility] LABORATORYCLIA [id number] [address] [place] Monocytes (Bld) [#/Vol] 0.66 10*3/uL Normal <0.87 [facility] Comment on above: Order Comment: Speci men Type: BLOOD SPECIMENOrdering Facility: [facility] Address: [address] [place] [address] Performed By: #### 5 7021-8 ####[facility] LABORATORYCLIA [id number] [place] [id number] [place] Monocytes/100 WBC (Bld) 10.5 % Normal [facility] Comment on above: Order Comment: Speci men Type: BLOOD SPECIMENOrdering Facility: [facility] Address: [address] [place] [address] Performed By: #### 5 7021-8 ####[facility] LABORATORYCLIA [id number] [place] [address] [place] Neutrophils (Bld) [#/Vol] 4.06 10*3/uL Normal 1.45-7.50 [facility] Comment on above: Order Comment: Speci men Type: BLOOD SPECIMENOrdering Facility: [facility] Address: [address] [place] [address] Performed By: #### 5 7021-8 ####[facility] LABORATORYCLIA [id number] [place] [address] [place] Neutrophils/100 WBC (Bld) 64.7 % Normal [facility] Comment on above: Order Comment: Speci men Type: BLOOD SPECIMENOrdering Facility: [facility] Address: [address] [place] [address] Performed By: #### 5 7021-8 ####[facility] LABORATORYCLIA [id number] [place] [id number] [place] Nucleated RBC (Bld) [#/Vol] 10*3/uL Normal <0.01 [facility] Comment on above: Order Comment: Speci men Type: BLOOD SPECIMENOrdering Facility: [facility] Address: [address] [place] [address] Performed By: #### 5 7021-8 ####[facility] LABORATORYCLIA [id number] [place] [address] [place] Nucleated RBC/100 WBC (Bld) [Ratio] 0.0 /100 WBC Normal [facility] Comment on above: Order Comment: Speci men Type: BLOOD SPECIMENOrdering Facility: [facility] Address: [address] [place] [address] Performed By: #### 5 7021-8 ####[facility] LABORATORYCLIA [id number] [place] [id number] [place] Platelet mean volume (Bld) [Entitic vol] 10.1 fL Normal 9.0-12.7 [facility] Comment on above: Order Comment: Speci men Type: BLOOD SPECIMENOrdering Facility: [facility] Address: [address] [place] [address] Performed By: #### 5 7021-8 ####[facility] LABORATORYCLIA [id number] [place] [address] [place] Platelets (Bld) [#/Vol] 182 10*3/uL Normal 150-400 [facility] Comment on above: Order Comment: Speci men Type: BLOOD SPECIMENOrdering Facility: [facility] Address: [address] [place] [address] Performed By: #### 5 7021-8 ####[facility] LABORATORYCLIA [id number] [place] [address] [place] RBC (Bld) [#/Vol] 4.99 10*6/uL Normal 4.20-6.00 [facility] Comment on above: Order Comment: Speci men Type: BLOOD SPECIMENOrdering Facility: [facility] Address: [address] [place] [address] Performed By: #### 5 7021-8 ####[facility]ORATORYCLIA [id number] [place] [address] [place] WBC (Bld) [#/Vol] 6.27 10*3/uL Normal 3.70-11.00 [facility] Comment on above: Order Comment: Speci men Type: BLOOD SPECIMENOrdering Facility: [facility] Address: [address] [place] [address] Performed By: #### 5 7021-8 ####[facility]ORATORYCLIA [id number] [place] [address] [place] CEA SerPl-mCncon 06-02-2024 Carcinoembryonic Ag [Mass/Vol] 3.5 ng/mL High <=2.9 [facility] Comment on above: Order Comment: Speci men Type: BLOOD SPECIMENOrdering Facility: [facility] Address: [address] [place] [address] Result Comment: Carc inoembryonic antigen test is used as an aid in monitoring response to treatment or recurrence in patients with established colorectal, breast, lung, prostatic, pancreatic, and ovarian carcinomas. Clinical correlation is required. The Carcinoembryonic antigen test was performed using the Everardo Randolph Unicel DXI paramagnetic particle chemiluminescent immunoassay method. Results obtained with different assay methods or kits cannot be used interchangeably. Performed By: #### 2 039-6 ####[facility] LABCLIA [id number] [place] [address] [place] CT ABD/PEL W [...] pelvis. 4. Fatty infiltration of the liver. Career And Transition Teacher: WILBER Transcribe Date/Time: Jun 04 2024 8:16A Dictated by : OSKAR JOHNSON MD This examination was interpreted and the report reviewed and electronically signed by: OSKAR JOHNSON MD on Jun 04 2024 8:28AM EST [id number] Normal [facility] CT CHEST W IVCONon CT CHEST W IVCON * * *Final [...] pelvis. 4. Fatty infiltration of the liver. Career And Transition Teacher: WILBER Transcribe Date/Time: Jun 04 2024 8:16A Dictated by : OSKAR JOHNSON MD This examination was interpreted and the report reviewed and electronically signed by: OSKAR JOHNSON MD on Jun 04 2024 8:28AM EST [id number] Normal [facility] Comprehensive metabolic 2000 panelon 06-02-2024 Albumin [Mass/Vol] 4.1 g/dL Normal 3.9-4.9 [facility] Comment on above: Order Comment: Speci men Type: BLOOD SPECIMENOrdering Facility: [facility] Address: [address] [place] [address] Performed By: #### 2 4323-8 ####[facility] LABORATORYCLIA [id number] [place] [address] [place] ALP [Catalytic activity/Vol] 85 U/L Normal 38-113 [facility] Comment on above: Order Comment: Speci men Type: BLOOD SPECIMENOrdering Facility: [facility] Address: [address] [place] [address] Performed By: #### 2 4323-8 ####[facility] LABORATORYCLIA [id number] [place] [address] [place] ALT [Catalytic activity/Vol] 175 U/L High 10-54 [facility] Comment on above: Order Comment: Speci men Type: BLOOD SPECIMENOrdering Facility: [facility] Address: [address] [place] [address] Performed By: #### 2 4323-8 ####[facility] LABORATORYCLIA [id number] [place] [id number] [place] Anion gap [Moles/Vol] 13 mmol/L Normal 8-15 [facility] Comment on above: Order Comment: Speci men Type: BLOOD SPECIMENOrdering Facility: [facility] Address: [address] [place] [address] Performed By: #### 2 4323-8 ####[facility] LABORATORYCLIA [id number] [place] [id number] [place] AST [Catalytic activity/Vol] 151 U/L High 14-40 [facility] Comment on above: Order Comment: Speci men Type: BLOOD SPECIMENOrdering Facility: [facility] Address: [address] [place] [address] Performed By: #### 2 4323-8 ####[facility] LABORATORYCLIA [id number] [place] [id number] [place] Bilirubin [Mass/Vol] 0.6 mg/dL Normal 0.2-1.3 [facility] Comment on above: Order Comment: Speci men Type: BLOOD SPECIMENOrdering Facility: [facility] Address: [address] [place] [address] Performed By: #### 2 4323-8 ####[facility] LABORATORYCLIA [id number] [place] [address] [place] Calcium [Mass/Vol] 9.1 mg/dL Normal 8.5-10.2 [facility] Comment on above: Order Comment: Speci men Type: BLOOD SPECIMENOrdering Facility: [facility] Address: [address] [place] [address] Performed By: #### 2 4323-8 ####[facility] LABORATORYCLIA [id number] [place] [address] [place] Chloride [Moles/Vol] 94 mmol/L Low 98-107 [facility] Comment on above: Order Comment: Speci men Type: BLOOD SPECIMENOrdering Facility: [facility] Address: [address] [place] [address] Performed By: #### 2 4323-8 ####[facility] LABORATORYCLIA [id number] [place] [address] [place] CO2 [Moles/Vol] 24 mmol/L Normal 22-30 [facility] Comment on above: Order Comment: Speci men Type: BLOOD SPECIMENOrdering Facility: [facility] Address: [address] [place] [address] Performed By: #### 2 4323-8 ####[facility]ORATORYCLIA [id number] [place] [address] [place] Creatinine [Mass/Vol] 1.08 mg/dL Normal 0.73-1.22 [facility] Comment on above: Order Comment: Ara powers Type: BLOOD SPECIMENOrdering Facility: [facility] Address: [address] [place] [address] Performed By: #### 2 4323-8 ####[facility] LABORATORYCLIA [id number] [address] OF [facility] Creatinine and Glomerular filtration rate.predicted panel (S/P/Bld) 82 mL/min/1.73m??? Normal >=60 [facility] Comment on above: Order Comment: Ara powers Type: BLOOD SPECIMENOrdering Facility: [facility] Address: [address] [place] [address] Result Comment: Dee mated Glomerular Filtration Rate [...] actual GFR. Performed By: #### 2 4323-8 ####[facility] LABORATORYCLIA [id number] [place] [id number] [place] Glucose [Mass/Vol] 97 mg/dL Normal 74-99 [facility] Comment on above: Order Comment: Ara powers Type: BLOOD SPECIMENOrdering Facility: [facility] Address: [address] [place] [address] Result Comment: The [place] [employer] (ADA) provides guidance for cutoff [...] Standards of Medical Care in Diabetes 2016, [place] [employer]. Diabetes Care. 2016.39(Suppl 1). Performed By: #### 2 4323-8 ####[facility] LABORATORYCLIA [id number] [place] [address] [place] Potassium [Moles/Vol] 5.2 mmol/L High 3.7-5.1 [facility] Comment on above: Order Comment: Speci men Type: BLOOD SPECIMENOrdering Facility: [facility] Address: [address] [place] [address] Performed By: #### 2 4323-8 ####[facility] LABORATORYCLIA [id number] [place] [address] [place] [facility] Protein [Mass/Vol] 7.8 g/dL Normal 6.3-8.0 [facility] Comment on above: Order Comment: Speci men Type: BLOOD SPECIMENOrdering Facility: [facility] Address: [address] [place] [address] Performed By: #### 2 4323-8 ####[facility]ORATORYCLIA [id number] [place] [address] [place] Sodium [Moles/Vol] 131 mmol/L Low 136-144 [facility] Comment on above: Order Comment: Speci men Type: BLOOD SPECIMENOrdering Facility: [facility] Address: [address] [place] [address] Performed By: #### 2 4323-8 ####[facility] LABORATORYCLIA [id number] [place] [address] [place] Urea nitrogen [Mass/Vol] 11 mg/dL Normal 9-24 [facility] Comment on above: Order Comment: Speci men Type: BLOOD SPECIMENOrdering Facility: [facility] Address: [address] [place] [address] Performed By: #### 2 4323-8 ####[facility] LABORATORYCLIA [id number] [place] [address] [facility] [place] NURSING PROGon 06-02-2024 NURSING PROG HNO ID: [id number] Author: ABILIO TANG, RN Service: PICC Team Author Type: Registered [...] SITE APPEARANCE: Clean,Dry and Intact SIGNATURE: Abilio Tang, RN PATIENT NAME: Piper Rodríguez DATE: June 02, 2024 TIME: 8:53 AM [facility] 06-01-2024 [facility] Telephone ([facility]) ZOLTANPIPER METCALF Marychuy ([id number]) 1970 M Date Time Provider Department 06/01/24 DONIS CARIAS [facility] During your visit today, we recorded the following information about you: [employer] 06/01/2024 10:07 AM Signed 06/01 Patient called, stated that he wanted to cancel CT that was for 06/02 due to distance to appointment. Stated that will go to [facility] to gert CT done. Was wondering if able to go to [place] for CT? Jocelyn Cantrell, RN 06/01/2024 11:03 AM Signed Spoke with patient. He was under the impression he could get his CT done in [place] and could have the images sent to Dr. Carias. We had a long discussion about the process to make that happen and my concerns that it would not be done in time to continue with his surgery on 06/14. He was agreeable to reschedule his CT at [facility] on 06/02/24. He will get his lab work done tomorrow prior to his CT. Allergies As of Date: 06/01/2024 (No Known Allergies) Date Reviewed: 05/25/2024 Reviewed by: Jessica Bass OCCA - Fully Assessed Reason for Visit: Patient Question [7237] Prescriptions as of 06/01/2024 - metroNIDAZOLE (FLAGYL) [...] Status:Closed by JOCELYN CANTRELL on 06/01/24 Normal [facility] CNOVon 05-25-2024 CNOV Office Visit ([facility] ) PIPER RODRÍGUEZ ([id number]) 1970 M Date Time Provider Department 05/25/24 11:20 AM DONIS CARIAS [facility] During your visit today, we recorded the following information about you: Temperature Pulse Blood pressure Weight 97 degrees 68/minute 124/84 122.9 kg Height 1.778 m Donis Carias MD 05/25/2024 12:48 PM Signed [facility] May 25, 2024 Piper Rodríguez 54 year old This consult was requested by Dr. Hedrick and my final recommendations will be communicated to the requesting health care provider by way of the shared medical record for internal providers or letter via the [email or web address] for external providers. Chief Complaint: [...] No palpable mass Colonoscopy 05/10/24 - Dr. Hedrick @ [facility] Scan on 05/16/2024 9:34 AM by Norma Magallanes: [facility] operative note (path pending) [id number] Pathology Scan on 05/22/2024 8:26 AM by Be Cloud: [facility] Pathology Report 05/11/24 COLON, Biopsy, Cecum: COLONIC TISSUE WITH INVASIVE ADENOCARCINOMA, MODERATELY DIFFERENTIATED, ULCERATION NOTED 2. COLON, Biopsy, Sigmoid: LARGE TUBULAR ADENOMA (>1 CM), NEGATIVE FOR HIGH GRADE DYSPLASIA, AREAS SHOWING CAUTERY ARTIFACT ARE POSITIVE FOR ADENOMATOUS GLANDS 3. COLON, Biopsy, Descending: TUBULAR ADENOMA. NEGATIVE FOR HIGH GRADE DYSPLASIA Colonoscopy 06/03/2018 - Dr Hedrick @ [facility] Scan on 05/15/2024 9:54 AM by Be Cloud: [facility]- Operative Report 06/03/18 Assessment Assessment and Plan: Piper Rodríguez is a 54 year old man with new diagnosis of cecal cancer. Discussed possibility of appendiceal in origin with extension into cecum. Regardless, the next step is to proceed with st (more content not included)... Normal [facility] Pathology Request for Lab Co rpon 05-10-2024 Pathology Request for Lab Bibiana Normal [facility] Comment on above: Order Comment: PATHO LOGY GI SPECIMEN Result Comment: See report. Scanned copy available in EMR. PERFORMED BY: [place] [address] PATHOLOGIST POURER OFF ETHAN SOLANO M.D. Performed By: #### P ATH TO [facility] #### [address] Ambulatory Visit Summaryon 1 06-26-2023 Ambulatory [...] you for choosing us for your care. Normal [facility] Dragan 09-13-2023 L Specimen: BP Re ceived: 09/14/23 Status: SOUT Req Num: [id number] Spec Type: Impression Subm Dr: Kisha Esteves MD Tissues: PATHPER Procedures: PATHREVIEW Age/ Patient Sex Location Account Attending Physician Piper Rodríguez O 53/M [facility] [id number] Kisha Esteves MD SPEC NUM: [id number] RECD: 09/14/23 STATUS: SOUT REQ NUM: [id number] ANDREA: 09/13/[address]: Kisha Esteves MD ENTERED: 09/14/[address] [facility] [address]: Renaldo Fung SPEC TYPE: Impression DEPT: [facility] ENTERED BY: [id number] RECV BY: [id number] ORDERED: PATHREVIEW ORDERED: PATHREVIEW Pathologist Review Normocytic Anemia is noted. Bone Marrow Pathology Vs. Peripheral Etiology. [id number] -------- -------- Specimen: [id number] Received: 09/14/23 Status: DEION Garciarashmi Num: [id number] Spec Type: Impression Subm Dr: Kisha Esteves MD Tissues: PATHPER Procedures: PATHREVIEW -------- Patient: Piper Rodríguez [id number] (Continued) -------- Signed (signature on file) Ethan Solano MD 09/15/23 [address] [facility] ED Note-Physicianon 08-05-19 ED Note-Physician [id number] Normal [facility] RAD - CT Reporton 08-05-2023 RAD - CT Report [id number] Normal [facility] Dragan 08-02-2023 L Specimen: Re ceived: 08/03/23 Status: SOUT Req Num: [id number] Spec Type: Impression Subm Dr: Gen Peña MD Tissues: PATHPER Procedures: PATHREVIEW Age/ Patient Sex Location Account Attending Physician Piper Rodríguez 53/M LAB[facility] [id number] Gen Peña MD SPEC NUM: [id number] RECD: 08/03/23 STATUS: SOUT REQ NUM: [id number] ANDREA: 08/02/[address]: Gen Peña MD ENTERED: 08/03/[address]: SPEC TYPE: Impression DEPT: [facility] ENTERED BY: [id number] RECV BY: [id number] ORDERED: PATHREVIEW ORDERED: PATHREVIEW Pathologist Review Abnormal [...] and close laboratory follow-ups are also suggested -------- Specimen: BP24- Received: 08/03/23-1350 Status: DEION Leblanc Num: [id number] Spec Type: Impression Subm Dr: Gen Peña MD Tissues: PATHPER Procedures: PATHREVIEW -------- Patient: Piper Rodríguez [id number] (Continued) -------- Specimen: BP24 Received: 08/03/23-135 (Continued) Pathologist Review (Continued) Signed (signature on file) Tammy Mathew MD 08/05/23 1828 -------- Specimen: BP24 Received: 08/03/23 Status: LORNEDago Leblanc Num: [id number] Spec Type: Impression Subm Dr: Gen ePña MD Tissues: PATHPER Procedures: PATHREVIEW -------- Patient: Piper Rodríguez [id number] (Continued) -------- Specimen: BP24- Received: 08/03/23 (Continued) Pathologist Review (Continued) CPT: 37668 CBC No results available. -------- -------- Specimen: BP24 Received: 08/03/23 Status: DEION Leblanc Num: [id number] Spec Type: Impression Subm Dr: Gen Peña MD Tissues: PATHPER Procedures: PATHREVIEW -------- Patient: Piper Rodríguez [id number] (Continued) -------- Signed (signature on file) Tammy Mathew MD 08/05/23 [address] [facility] Physician Referralon 024 Physician Referral [id number] Normal [facility] T4 [facility] 02-05-2022 T4 [Mass/Vol] 9.2 ug/dL Normal 4.5-12.0 [facility] [place] Comment on above: Performed By: #### T 4LC #### [facility] [address] [address] [address] Rayna Mathew CBC AUTO DIFFon 02-04-2022 BASO # 0.0 103/ul Normal 0.0-0.1 [facility] [place] Comment on above: Performed By: #### C BC #### [facility] [address] [address] [address] Rayna Mathew Basophils/100 WBC (Bld) 0.7 % Normal 0.2-2.0 [facility] [place] Comment on above: Performed By: #### C BC #### [facility] [address] [place] [address] Dr. Rayna Mathew EO # 0.4 103/ul Normal 0.0-0.7 [facility] Comment on above: Performed By: #### C BC #### [facility] [address] [place] [address] Dr. Rayna Mathew Eosinophils/100 WBC (Bld) 6.7 % Normal 0.9-7.0 [facility] [place] Comment on above: Performed By: #### C BC #### [facility] [address] [place] [address] Dr. Rayna Mathew Erythrocyte distribution width (RBC) [Ratio] 13.5 % Normal 11.0-15.0 [facility] [place] Comment on above: Performed By: #### C BC #### [facility] [address] [place] [address] Dr. Rayna Mathew Hematocrit (Bld) [Volume fraction] 37.2 % Critically low 42.0-54.0 [facility] [place] Comment on above: Performed By: #### C BC #### [facility] [address] [place] [address] Dr. Rayna Mathew Hemoglobin (Bld) [Mass/Vol] 11.5 g/dL Critically low 14.0-18.0 [facility] Comment on above: Performed By: #### C BC #### [facility] [address] [place] [address] Dr. Rayna Mathew IG # 0.02 10e3/ul Normal 0.00-0.03 [facility] Comment on above: Performed By: #### C BC #### [facility] [address] [place] [address] Dr. Rayna Mathew IG % 0.3 % Normal 0.0-0.5 [facility] Comment on above: Performed By: #### C BC #### [facility] [address] [place] [address] Dr. Rayna Mathew LYMPH # 1.4 103/ul Normal 1.2-3.8 [facility] Comment on above: Performed By: #### C BC #### [facility] [address] [place] [address] Dr. Rayna Mathew Lymphocytes/100 WBC (Bld) 23.8 % Normal 20.5-60.0 [facility] [place] Comment on above: Performed By: #### C BC #### [facility] [address] [place] [address] Dr. Rayna Mathew MANUAL DIFF REQ NO Normal [facility] [place] Comment on above: Performed By: #### C BC #### [facility] [address] [place] [address] Dr. Rayna Mathew MCH (RBC) [Entitic mass] 27.4 pg Normal 25.9-34.0 [facility] [place] Comment on above: Performed By: #### C BC #### [facility] [address] [place] [address] Dr. Rayna Mathew MCHC (RBC) [Mass/Vol] 30.9 g/dL Normal 29.9-35.2 [facility] [place] Comment on above: Performed By: #### C BC #### [facility] [address] [place] [address] Dr. Rayna Mathew MCV (RBC) [Entitic vol] 88.6 fL Normal 80.0-94.0 [facility] [place] Comment on above: Performed By: #### C BC #### [facility] [address] [place] [address] Dr. Rayna Mathew MONO # 0.6 103/ul Normal 0.3-0.8 [facility] [place] Comment on above: Performed By: #### C BC #### [facility] [address] [place] [address] Dr. Rayna Mathew Monocytes/100 WBC (Bld) 9.2 % Normal 1.7-12.0 [facility] [place] Comment on above: Performed By: #### C BC #### [facility] [address] [place] [address] Dr. Rayna Mathew NEUT # 3.5 103/ul Normal 1.4-6.5 [facility] [place] Comment on above: Performed By: #### C BC #### [facility] [address] [place] [address] Dr. Rayna Mathew Neutrophils/100 WBC (Bld) 59.3 % Normal 43.0-75.0 [facility] [place] Comment on above: Performed By: #### C BC #### [facility] [address] [place] [address] Dr. Rayna Mathew Platelet mean volume (Bld) [Entitic vol] 10.4 fL Normal 9.5-13.5 [facility] [place] Comment on above: Performed By: #### C BC #### [facility] [address] [place] [address] Dr. Rayna Mathew PLT 182 103/ul Normal 150-450 [facility] Comment on above: Performed By: #### C BC #### [facility] [address] [place] [address] Dr. Rayna Mathew RBC 4.20 106/ul Critically low 4.70-6.10 [facility] [place] Comment on above: Performed By: #### C BC #### [facility] [address] [place] [address] Dr. Rayna Mathew WBC 6.0 103/ul Normal 4.0-11.0 [facility] [place] Comment on above: Performed By: #### C BC #### [facility] [address] [place] [address] Dr. Rayna Mathew FREE T3on 02-04-2022 FREE T3 3.28 pg/mlL Normal 2.18-3.98 [facility] [place] Comment on above: Performed By: #### F T3, TSH, CMP, LIPID #### [facility] [address] [place] [address] Dr. Rayna Mathew GLYCOHEMOGLOBIN A1Con 2021 ADA RECOMMENDATION SEE BELOW Normal [facility] Comment on above: Result Comment: ADA RECOMMENDED LIMIT 4.0 - 6.0 ADA THERAPEUTIC TARGET < 7.0 ACTION SUGGESTED > 7.0 Performed By: #### A 1C #### [facility] [address] [place] [address] Dr. Rayna Mathew Glucose [Mass/Vol] 123 mg/dL Normal [facility] [place] Comment on above: Performed By: #### A 1C #### [facility] [address] [place] [address] Dr. Rayna Mathew HbA1c (Bld) [Mass fraction] 5.9 % Normal 4.5-6.2 [facility] [place] Comment on above: Performed By: #### A 1C #### [facility] [address] [address] [address] Rayna Mathew LIPID PROFILEon 02-04-2022 CHOL-HDL RATIO NORM SEE BELOW Normal [facility] [place] Comment on above: Result Comment: 3.3 - 4.4 LOW RISK 4.4 - 7.1 AVERAGE RISK 7.1 - 11.0 MODERATE RISK >11.0 HIGH RISK Performed By: #### F T3, TSH, CMP, LIPID #### [facility] [address] [address] [address] Rayna Mathew Cholesterol [Mass/Vol] 158 mg/dL Normal <=200 [facility] [place] Comment on above: Performed By: #### F T3, TSH, CMP, LIPID #### [facility] [address] [place] [address] Dr. Rayna Mathew Cholesterol in HDL [Mass/Vol] 47 mg/dL Normal 40-60 [facility] [place] Comment on above: Performed By: #### F T3, TSH, CMP, LIPID #### [facility] [address] [address] [address] Rayna Mathew Cholesterol in LDL [Mass/Vol] 98.0 mg/dL Normal [facility] [place] Comment on above: Performed By: #### F T3, TSH, CMP, LIPID #### [facility] [address] [place] [address] Dr. Rayna Mathew Cholesterol.total/Cho lesterol in HDL [Mass ratio] 3.4 {ratio} Normal [facility] [place] Comment on above: Performed By: #### F T3, TSH, CMP, LIPID #### [facility] [address] [place] [address] Dr. Rayna Mathew HDL NORMAL > or = 60 mg/dl - LO W CARDIOVASCULAR RISK <40 mg/dl - HIGH CARDIOVASCULAR RISK Normal [facility] [place] Comment on above: Performed By: #### F T3, TSH, CMP, LIPID #### [facility] [address] [place] [address] Dr. Rayna Mathew LDL CALC NORMAL SEE BELOW Normal [facility] [place] Comment on above: Result Comment: <100 mg/dl OPTIMAL 100 - 129 mg/dl NEAR OR ABOVE OPTIMAL 130 - 159 mg/dl BORDERLINE HIGH 160 - 189 mg/dl HIGH >190 mg/dl VERY HIGH Performed By: #### F T3, TSH, CMP, LIPID #### [facility] [address] [address] [address] Rayna Mathew Triglyceride [Mass/Vol] 65 mg/dL Normal <=150 [facility] Comment on above: Performed By: #### F T3, TSH, CMP, LIPID #### [facility] [address] [address] [address] Rayna Mathew VLDL CALC 13.0 mg/dL Normal [facility] Comment on above: Performed By: #### F T3, TSH, CMP, LIPID #### [facility] [address] [place] [address] Dr. Rayna Mathew PROF 14(COMP METB)on 022 Albumin [Mass/Vol] 3.8 g/dL Normal 3.4-5.0 [facility] [place] Comment on above: Performed By: #### F T3, TSH, CMP, LIPID #### [facility] [address] [address] [address] Rayna Mathew Albumin/Globulin [Mass ratio] 0.9 {ratio} Normal [facility] Comment on above: Performed By: #### F T3, TSH, CMP, LIPID #### [facility] [address] [address] [address] Rayna Mathew ALP [Catalytic activity/Vol] 76 U/L Normal 46-116 [facility] Comment on above: Performed By: #### F T3, TSH, CMP, LIPID #### [facility] [address] [address] [address] Rayna Mathew ALT [Catalytic activity/Vol] 109 U/L Critically high 16-63 [facility] [place] Comment on above: Performed By: #### F T3, TSH, CMP, LIPID #### [facility] [address] [address] [address] Rayna Mathew Anion gap [Moles/Vol] 11.1 mmol/L Normal Th e [facility] Comment on above: Performed By: #### F T3, TSH, CMP, LIPID #### [facility] [address] [address] [address] Rayna Mathew AST [Catalytic activity/Vol] 79 U/L Critically high 15-37 [facility] Comment on above: Performed By: #### F T3, TSH, CMP, LIPID #### [facility] [address] [address] [address] Rayna Mathew Bilirubin [Mass/Vol] 0.4 mg/dL Normal 0.2-1.0 [facility] [place] Comment on above: Performed By: #### F T3, TSH, CMP, LIPID #### [facility] [address] [place] [address] Dr. Rayna Mathew Calcium [Mass/Vol] 9.0 mg/dL Normal 8.5-10.1 [facility] [place] Comment on above: Performed By: #### F T3, TSH, CMP, LIPID #### [facility] [address] [address] [address] Rayna Mathew Chloride [Moles/Vol] 102 mmol/L Normal 98-107 [facility] Comment on above: Performed By: #### F T3, TSH, CMP, LIPID #### [facility] [address] [address] [address] Rayna Mathew CO2 [Moles/Vol] 29.5 mmol/L Normal 21.0-32.0 [facility] Comment on above: Performed By: #### F T3, TSH, CMP, LIPID #### [facility] [address] [address] [address] Rayna Mathew Creatinine [Mass/Vol] 0.96 mg/dL Normal 0.70-1.30 [facility] Comment on above: Performed By: #### F T3, TSH, CMP, LIPID #### [facility] [address] [address] [address] Rayna Mathew EGFR-AF BENINESE >60 Normal >=60 [facility] Comment on above: Performed By: #### F T3, TSH, CMP, LIPID #### [facility] [address] [address] [address] Rayna Mathew EGFR-NON AF BENINESE >60 Normal >=60 [facility] [place] Comment on above: Performed By: #### F T3, TSH, CMP, LIPID #### [facility] [address] [address] [address] Rayna Mathew Globulin (S) [Mass/Vol] 4.0 g/dL Normal [facility] [place] Comment on above: Performed By: #### F T3, TSH, CMP, LIPID #### [facility] [address] [address] [address] Rayna Mathew Glucose [Mass/Vol] 121 mg/dL Critically high 74-106 [facility] Comment on above: Performed By: #### F T3, TSH, CMP, LIPID #### [facility] [address] [address] [address] Rayna Mathew Potassium [Moles/Vol] 4.6 mmol/L Normal 3.5-5.1 [facility] [place] Comment on above: Performed By: #### F T3, TSH, CMP, LIPID #### [facility] [address] [address] [address] Rayna Mathew Protein [Mass/Vol] 7.8 g/dL Normal 6.4-8.2 [facility] [place] Comment on above: Performed By: #### F T3, TSH, CMP, LIPID #### [facility] [address] [address] [address] Rayna Mathew Sodium [Moles/Vol] 138 mmol/L Normal 136-145 [facility] [place] Comment on above: Performed By: #### F T3, TSH, CMP, LIPID #### [facility] [address] [address] [address] Rayna Mathew Urea nitrogen [Mass/Vol] 11.0 mg/dL Normal 7.0-18.0 [facility] [place] Comment on above: Performed By: #### F T3, TSH, CMP, LIPID #### [facility] [address] [address] [address] Rayna Mathew Urea nitrogen/Creatinine [Mass ratio] 11.5 mg/mg Normal [facility] [place] Comment on above: Performed By: #### F T3, TSH, CMP, LIPID #### [facility] [address] [place], [place] [address] Dr. Rayna Mathew TSHon 02-04-2022 TSH 1.905 uIU/mL Normal 0.358-3.74 0 [facility] [place] Comment on above: Performed By: #### F T3, TSH, CMP, LIPID #### [facility] [address] [place], [place] [address] Dr. Rayna Mathew Vital Signs Date Time Vital Sign Value Performing Clinician Faci lity 06-28-2024 15:21-0500 Blood Pressure Location Jone NILL [facility] [place] 06-28-2024 15:21-0500 Diastolic blood pressure 84 mm[Hg] Jone NILL [facility] [place] 06-28-2024 15:21-0500 Heart rate 72 /min Jone NILL [facility] [place] 06-28-2024 15:21-0500 Respiratory rate 16 /min Jone NILL [facility] [place] 06-28-2024 15:21-0500 Systolic blood pressure 128 mm[Hg] Jone NILL [facility] [place] 06-28-2024 10:56-0500 Body height 177.8 cm Joseph Bragg MD Work Phone: [facility] 06-28-2024 10:56-0500 Body mass index (BMI) [Ratio] 36.47 kg/m2 Joseph Bragg MD Work Phone: [facility] 06-28-2024 10:56-0500 Body temperature 97.3 [degF] Joseph Bragg MD Work Phone: [facility] 06-28-2024 10:56-0500 Body weight 115.3 kg Joseph Bragg MD Work Phone: [facility] 06-28-2024 10:56-0500 Diastolic blood pressure 79 mm[Hg] Joseph Bragg MD Work Phone: [facility] 06-28-2024 10:56-0500 Heart rate 74 /min Joseph Bragg MD Work Phone: [facility] 06-28-2024 10:56-0500 Respiratory rate 18 /min Joseph Bragg MD Work Phone: [facility] 06-28-2024 10:56-0500 SaO2% (BldA) [Mass fraction] 97 % Joseph Bragg MD Work Phone: [facility] 06-28-2024 10:56-0500 Systolic blood pressure 118 mm[Hg] Joseph Bragg MD Work Phone: [facility] 06-08-2024 08:34-0500 Body height 177.8 cm Pacc 1 Work Phone: [facility] 06-08-2024 08:34-0500 Body mass index (BMI) [Ratio] 38.78 kg/m2 Pacc 1 Work Phone: [facility] 06-08-2024 08:34-0500 Body temperature 98.01 [degF] Pacc 1 Work Phone: [facility] 06-08-2024 08:34-0500 Body weight 122.6 kg Pacc 1 Work Phone: [facility] 06-08-2024 08:34-0500 Diastolic blood pressure 82 mm[Hg] Pacc 1 Work Phone: [facility] 06-08-2024 08:34-0500 Heart rate 72 /min Pacc 1 Work Phone: [facility] 06-08-2024 08:34-0500 Respiratory rate 15 /min Pacc 1 Work Phone: [facility] 06-08-2024 08:34-0500 SaO2% (BldA) [Mass fraction] 98 % Pac 1 Work Phone: [facility] 06-08-2024 08:34-0500 Systolic blood pressure 128 mm[Hg] Pac 1 Work Phone: [facility] 05-25-2024 11:10-0500 Body height 177.8 cm Donis Carias MD Work Phone: [facility] 05-25-2024 11:10-0500 Body mass index (BMI) [Ratio] 38.88 kg/m2 Donis Carias MD Work Phone: [facility] 05-25-2024 11:10-0500 Body temperature 97 [degF] Donis Carias MD Work Phone: [facility] 05-25-2024 11:10-0500 Body weight 122.92 kg Donis Carias MD Work Phone: [facility] 05-25-2024 11:10-0500 Diastolic blood pressure 84 mm[Hg] Donis Carias MD Work Phone: [facility] 05-25-2024 11:10-0500 Heart rate 68 /min Donis Carias MD Work Phone: [facility] 05-25-2024 11:10-0500 SaO2% (BldA) [Mass fraction] 97 % Donis Carias MD Work Phone: [facility] 05-25-2024 11:10-0500 Systolic blood pressure 124 mm[Hg] Donis Carias MD Work Phone: [facility] 04-25-2024 10:21-0500 Blood Pressure Location Jone HEDRICK [facility] [place] 12-03-2024 10:21-0500 Diastolic blood pressure 80 mm[Hg] Jone NILL [facility] 04-25-2024 10:21-0500 Heart rate 68 /min Jone NILL [facility] 04-25-2024 10:21-0500 Respiratory rate 16 /min Jone NILL [facility] 04-25-2024 10:21-0500 Systolic blood pressure 138 mm[Hg] Jone NILL [facility] Encounters Encounter Date Encounter Type Care Provider Facility Start: 06-30-2024 End: 06-30-2024 Telephone encounter Chelle Willis RN Work Phone: Hematology/Oncology Comment on above: Care Coordination (C ancelling appointments at our office) Start: 06-29-2024 End: 06-29-2024 Chart abstracting Camryn Beaulieu Research Coordinator Hematology/Oncology Comment on above: Research ([facility] Resear ch Pre-Screening (IRB: [id number])) Start: 06-28-2024 End: 06-28-2024 Patient encounter procedure Jone R NILL [facility] Start: 06-28-2024 End: 06-28-2024 ambulatory Jone R NILL Facility:[facility] ([facility] Start: 06-28-2024 End: 06-28-2024 Office outpatient new 60 minutes Joseph Bragg MD Work Phone: Hematology/Oncology Comment on above: Malignant neoplasm o f ascending colon (HCC) Start: 06-26-2024 End: 06-26-2024 Orders Only Donis Carias MD Work Phone: Colorectal Surgery Comment on above: Malignant neoplasm o f ascending colon (HCC) (Primary Dx) Start: 06-21-2024 End: 06-21-2024 ambulatory Jone R NILL [facility] Start: 06-21-2024 End: 06-21-2024 Patient encounter procedure Jone Kervin FLORIDALMA [facility] General Surgery [place] Start: 06-21-2024 End: 06-21-2024 Telephone encounter Donis Carias MD Work Phone: Colorectal Surgery Start: 06-21-2024 End: 06-23-2024 Evaluation and management of inpatient GEN PEÑA Facility:[facility] Start: 06-20-2024 End: 06-20-2024 Telephone encounter Donis Carias MD Work Phone: Colorectal Surgery Comment on above: Post Op Start: 06-19-2024 End: 06-19-2024 Telephone encounter Donis Carias MD Work Phone: Colorectal Surgery Comment on above: Patient Question Start: 06-14-2024 End: 06-16-2024 Evaluation and management of inpatient JACKIEBridget CARIAS Facility:[facility] Start: 06-08-2024 End: 06-08-2024 Admission to establishment Pacc [facility] 1 Work Phone: Pre Anesthesia Start: 06-08-2024 End: 06-08-2024 ambulatory JACKIEBridget CARIAS Facility:[facility] Start: 06-08-2024 End: 06-08-2024 Anesthesia consultation Pacc 1 Work Phone: Pre Anesthesia Comment on above: Pre-op evaluation (P rimary Dx); BMI 38.0-38.9,adult; Smokeless tobacco use; SHERIE (obstructive sleep apnea) Start: 06-08-2024 End: 06-08-2024 Preprocedural examination done Pacc 1 Work Phone: [facility] Work Phone: Start: 06-05-2024 End: 06-05-2024 Telephone encounter Donis Carias MD Work Phone: [facility] Provider Adult Start: 06-02-2024 End: 06-02-2024 ambulatory DONIS CARIAS Facility:[facility] Start: 06-02-2024 ambulatory DONIS CARIAS Facili ty:[facility] Start: 06-02-2024 End: 06-02-2024 Subsequent hospital visit by physician Ct [facility] Radiology Comment on above: Malignant neoplasm o f ascending colon (HCC) [C18.2] Start: 06-01-2024 End: 06-01-2024 Telephone encounter Donis Carias MD Work Phone: Colorectal Surgery Comment on above: Patient Question Start: 05-25-2024 End: 05-25-2024 ambulatory DONIS CARIAS Facility:[facility] Start: 05-25-2024 End: 05-25-2024 Patient encounter procedure Donis Carias MD Work Phone: Colorectal Surgery Comment on above: Malignant neoplasm o f ascending colon (HCC) (Primary Dx) Start: 05-10-2024 End: 05-10-2024 ambulatory Jone R Nill Facility:[facility] Start: 05-10-2024 End: 05-10-2024 ambulatory Jone R NILL Facility:CD:[id number] Start: 04-25-2024 End: 04-25-2024 ambulatory Jone R NILL Facility:[facility] Start: 04-25-2024 End: 04-25-2024 Patient encounter procedure Jone R NILL [facility] General Surgery [place] Start: 09-13-2023 End: 09-13-2023 ambulatory Kisha Danielito [facility] Work Phone: Start: 09-13-2023 End: 09-13-2023 Departed Referred MD Gen Peña Work Phone: [facility] Start: 08-03-2023 ambulatory Jone NILL Facility:[facility] Start: 08-02-2023 End: 08-02-2023 ambulatory Gen Peña Facility:[facility] Start: 08-02-2023 End: 08-02-2023 Departed Referred MD Gen Peña Work Phone: [facility] Start: 07-30-2023 ambulatory Jone NILL Facility:[facility] Start: 07-14-2022 End: 07-15-[address] GEN PEÑA . Facility:[facility] Start: 02-10-[address] GEN PEÑA . Facili ty:[facility] Start: 02-08-2022 Encounter for genera l adult medical examination without abnormal findings DR GEN PEÑA . [facility] Start: 02-04-2022 End: 02-05-[address] GEN PEÑA . Facility:[facility] Start: 02-04-2022 End: 02-05-2022 Encounter for general adult medical examination without abnormal findings DR GEN PEÑA . Facility:[facility] Start: 08-01-[address] GEN PEÑA . Facili ty:[facility] Procedures Date Procedure Procedure Detail Performing Clinician Start: 06-14-2024 Right colectomy Jone MENDEZL Start: 06-08-2024 Ecg routine ecg w/least 12 lds i&r only [facility] Provider Start: 05-10-2024 Colonoscopy Jone NILL Start: 05-10-2024 Esophagogastroduodenoscopy Jone NILL Start: 02-04-[address] GEN PEÑA . Comment on above: Performed By: #### [facility] #### [facility] [address] [place] [address] Dr. Rayna Mathew Start: 06-03-2018 Colonoscopy Jone NILL Repair of joint of left hip Jone NILL Repair of joint of right hip Jone NILL Plan of Treatment Date Care Activity Detail Author Start: 06-08-2034 Urine microalbumin profile DTaP,Tdap,Td Vaccine (2 - Td or Tdap) [facility] Start: 06-23-2027 Diabetes Screening Diabetes Screening [facility] Start: 06-16-2027 Diabetes Screening Diabetes Screening [facility] Start: 06-02-2027 Diabetes Screening Diabetes Screening [facility] Start: 06-28-2025 BP Controlled (<130/80) BP Controlled (<130/80) [facility] Start: 07-14-2024 End: 07-14-2024 ambulatory 07/14/2024 11:30 AM [facility] Hematology/Oncology [address] [place] [address] [place] [address] pump disconnect Hematology/Oncology Comment on above: pump disconnect Start: 07-12-2024 End: 10-11-2024 Carcinoembryonic Ag [Mass/volume] in Serum or Plasma CARCINOEMBRYONIC ANTIGEN Lab Routine Malignant neoplasm of ascending colon (HCC) Expected: 07/12/2024 (Approximate), Expires: 10/11/2024 [facility] Comment on above: Expected: 07/12/2024 (Approximate), Expi res: 10/11/2024 Start: 07-12-2024 End: 10-11-2024 CBC W Auto Differential panel - Blood COMPLETE BLOOD COUNT AND DIFFERENTIAL Lab Routine Malignant neoplasm of ascending colon (HCC) Expected: 07/12/2024 (Approximate), Expires: 10/11/2024 [facility] Comment on above: Expected: 07/12/2024 (Approximate), Expi res: 10/11/2024 Start: 07-12-2024 End: 10-11-2024 Comprehensive metabolic 2000 panel - Serum or Plasma COMPREHENSIVE METABOLIC PANEL Lab Routine Malignant neoplasm of ascending colon (HCC) Expected: 07/12/2024 (Approximate), Expires: 10/11/2024 [facility] Comment on above: Expected: 07/12/2024 (Approximate), Expi res: 10/11/2024 Start: 07-12-2024 End: 10-11-2024 Ferritin [Mass/volume] in Serum or Plasma FERRITIN Lab Routine Malignant neoplasm of ascending colon (HCC) Expected: 07/12/2024 (Approximate), Expires: 10/11/2024 [facility] Comment on above: Expected: 07/12/2024 (Approximate), Expi res: 10/11/2024 Start: 07-12-2024 End: 10-11-2024 Iron and Iron binding capacity panel - Serum or Plasma IRON AND TIBC Lab Routine Malignant neoplasm of ascending colon (HCC) Expected: 07/12/2024 (Approximate), Expires: 10/11/2024 [facility] Comment on above: Expected: 07/12/2024 (Approximate), Expi res: 10/11/2024 Start: 07-12-2024 End: 10-11-2024 MISC SEND OUT TST 1 MISC SEND OUT TST 1 Lab Routine Malignant neoplasm of ascending colon (HCC) Expected: 07/12/2024 (Approximate), Expires: 10/11/2024 [facility] Comment on above: Expected: 07/12/2024 (Approximate), Expi res: 10/11/2024 Start: 07-12-2024 End: 07-12-2024 Follow-up encounter Hematology/Oncology Comment on above: 2 week follow up with l;ab port draw adán motx folfox pump connect Start: 07-05-2024 IR PORTOCATH PLACEMENT IR PORTOCATH PLACEMENT Radiology Routine Malignant neoplasm of ascending colon (HCC) Expected: 07/05/2024 (Approximate) [facility] Work Phone: Comment on above: Expected: 07/05/2024 (Approximate) Start: 07-05-2024 End: 07-05-2024 Patient encounter procedure 07/05/2024 10:40 AM EST Office Visit Colorectal Surgery [address] [place] [address] 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, ROPE COILING MACHINE OPERATOR.CIRCULAR DISTRIBUTOR [address] [facility] [address] [place] [address] Post Op Lap RHC 06/14 [place] Colorectal Surgery Comment on above: Post Op Lap RHC 06/14 [place] Start: 06-30-2024 End: 06-30-2024 Patient encounter procedure 06/30/2024 3:40 PM EST Office Visit Colorectal Surgery [address] [facility] [address] [place], [place] [id number] 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, ROPE COILING MACHINE OPERATOR.CIRCULAR DISTRIBUTOR [address] [place] [address] Post Op Lap RHC 06/14 [place] Colorectal Surgery Comment on above: Post Op Lap RHC 06/14 [place] Start: 06-30-2024 End: 06-30-2024 Nursing evaluation of patient and report 06/30/2024 1:00 PM EST Nurse Visit Hematology/Oncology [address] [place] [address] [place] [address] Chelle Willis, RN [address] [place] [address] [place] [address] Chemo ed Folfox with pump connect Hematology/Oncology Comment on above: Chemo ed Folfox with pump connect Start: 06-28-2024 End: 06-28-2024 ambulatory 06/28/2024 11:00 AM EST Visit (SP) Office Hematology/Oncology [address] [place] [address] [place] [address] Joseph Bragg MD [address] [place] [address] [place] [address] Malignant neoplasm of ascending colon Hematology/Oncology Comment on above: Malignant neoplasm of ascending colon Start: 06-22-2024 End: 06-22-2024 Patient encounter procedure 06/22/2024 8:40 AM EST Office Visit Colorectal Surgery [address] [id number] [place] [address] [place], [place] [id number] Post Op surgical wound check Colorectal Surgery Comment on above: Post Op surgical wound check Start: 06-21-2024 End: 06-21-2024 Exploratory laparotomy celiotomy w/wo biopsy spx EXPLORATORY LAPAROTOMY Perioperative dehiscence of abdominal wound with evisceration 06/21/2024 3:00 PM EST [facility] OR Start: 06-14-2024 End: 06-14-2024 Admission to same day surgery center 06/14/2024 7:30 AM EST - 06/14/2024 11:45 AM EST Surgery [facility] [place] [id number] [place] [address] [place] [address] LAPAROSCOPY COLECTOMY, PARTIAL, W/ REMOVAL TERMINAL ILEUM W/ ILEOCOLOSTOMY [facility] Comment on above: LAPAROSCOPY COLECTOMY, PARTIAL, W/ REMOV AL TERMINAL ILEUM W/ ILEOCOLOSTOMY Start: 06-14-2024 End: 06-14-2024 Laps colectomy prtl w/rmvl terminal ileum LAPAROSCOPY COLECTOMY, PARTIAL, W/ REMOVAL TERMINAL ILEUM W/ ILEOCOLOSTOMY Malignant neoplasm of ascending colon (HCC) 06/14/2024 7:30 AM EST [facility] OR Start: 06-14-2024 Subsequent hospital visit by physician [facility] Operating [facility] Comment on above: Malignant neoplasm of ascending colon (H CC) [C18.2] Start: 06-08-2024 End: 06-08-2024 Admission to same day surgery center 06/08/2024 8:50 AM EST PAT Pre Anesthesia [address] [place] [address] surgery date 06/14 Pre Anesthesia Comment on above: surgery date 06/14 Start: 06-02-2024 End: 06-02-2024 ambulatory 06/02/2024 10:00 AM EST Results Only [facility] [address] [place] [address] [facility] Start: 06-02-2024 End: 06-02-2024 Patient encounter procedure Radiology Comment on above: CT CHEST/ABD/PELVIS Ct prep Abd/Pel/Chest Start: 05-25-2024 End: 08-24-2024 Carcinoembryonic Ag [Mass/volume] in Serum or Plasma CARCINOEMBRYONIC ANTIGEN Lab Routine Malignant neoplasm of ascending colon (HCC) Expected: 05/25/2024 (Approximate), Expires: 08/24/2024 [facility] Comment on above: Expected: 05/25/2024 (Approximate), Expi res: 08/24/2024 Start: 05-25-2024 End: 08-24-2024 CBC W Auto Differential panel - Blood COMPLETE BLOOD COUNT AND DIFFERENTIAL Lab Routine Malignant neoplasm of ascending colon (HCC) Expected: 05/25/2024 (Approximate), Expires: 08/24/2024 [facility] Work Phone: Comment on above: Expected: 05/25/2024 (Approximate), Expi res: 08/24/2024 Start: 05-25-2024 End: 08-24-2024 Comprehensive metabolic 2000 panel - Serum or Plasma COMPREHENSIVE METABOLIC PANEL Lab Routine Malignant neoplasm of ascending colon (HCC) Expected: 05/25/2024 (Approximate), Expires: 08/24/2024 [facility] Comment on above: Expected: 05/25/2024 (Approximate), Expi res: 08/24/2024 Start: 01-23-2024 Covid-19 Vaccine ( season) Covid-19 Vaccine ( season) [facility] Start: 01-23-2024 Influenza vaccination Influenza Vaccine (#1) [facility] Start: 2021 Pneumococcal Vaccine: 50+ (1 of 1 - PCV) Pneumococcal Vaccine: 50+ (1 of 1 - PCV) [facility] Start: 2021 Shingrix Vaccine (1 of 2) Shingrix Vaccine (1 of 2) [facility] Start: 02-18-2016 Diabetes Screening Diabetes Screening [facility] Start: 02-18-2016 Screening for malignant neoplasm of colon [facility] Start: 2006 Lipid panel Lipid Screening [facility] Start: 1990 Hepatitis B Vaccine (1 of 3 - 19+ 3-dose series) Hepatitis B Vaccine (1 of 3 - 19+ 3-dose series) [facility] Start: 1990 Urine microalbumin profile DTaP,Tdap,Td Vaccine (1 - Tdap) [facility] Start: 1989 Annual PCP Team Chronic Disease Visit Annual PCP Team Chronic Disease Visit [facility] Start: 1989 Anxiety Screening Anxiety Screening [facility] Start: 1989 BP Controlled (<130/80) BP Controlled (<130/80) [facility] Start: 1989 Depression Screening Depression Screening [facility] Start: 1989 Hepatitis C screening Hepatitis C Screening [facility] Start: 1989 HIV screening HIV Screening [facility] End: 06-24-2025 CT Abdomen and Pelvis W contrast IV CT ABD/PEL W IVCON Radiology Routine Malignant neoplasm of ascending colon (HCC) 1 Occurrences starting 05/25/2024 until 06/24/2025 [facility] Comment on above: 1 Occurrences starting 05/25/2024 until 06/24/2025 CT Abdomen and Pelvi s W contrast IV CT ABD/PEL W IVCON Radiology Routine Malignant neoplasm of ascending colon (HCC) 06/02/2024 9:41 AM EST [facility] Work Phone: End: 06-24-2025 CT Chest W contrast IV CT CHEST W IVCON Radiology Routine Malignant neoplasm of ascending colon (HCC) 1 Occurrences starting 05/25/2024 until 06/24/2025 [facility] Comment on above: 1 Occurrences starting 05/25/2024 until 06/24/2025 CT Chest W contrast IV CT CHEST W IVCON Radiology Routine Malignant neoplasm of ascending colon (HCC) 06/02/2024 9:41 AM EST [facility] ECG COMPLETE [facility] Work Phone: Comment on above: Ordered: 06/08/2024 Laps colectomy prtl w/rmvl terminal ileum LAPAROSCOPY COLECTOMY, PARTIAL, W/ REMOVAL TERMINAL ILEUM W/ ILEOCOLOSTOMY Malignant neoplasm of ascending colon (HCC) [facility] OR Immunizations Immunization Date Immunization Notes Care Provider Fa ulisses 09-19-2020 SARS-CoV-2 (COVID-19 ) mRNA-1273 vaccine Jone HEDRICK [facility] Comment on above: Result Comment: 2023: TPV40 08-22-2020 SARS-CoV-2 (COVID-19 ) mRNA-1273 vaccine Jone HEDRICK [facility] Comment on above: Result Comment: 2023: TPV40 03-15-2018 influenza virus vaccine, unspecified formulation Donis Carias MD Work Phone: [facility] Payers Date Payer Category Payer Unknown MMO MMO [employer] PPO [id number] 2023-Present [phone] [address] [place] [address] PPO [id number] 2023 Self-pay 2018 Private Health Insurance 1971 Unknown [id number] 1971 Unknown [id number] 1971 Unknown [id number] .593 1971 Unknown [id number] .593 1971 Unknown [id number] [id number] .727 1971 Unknown [id number] [id number] .727 1971 Unknown [id number] [id number] .727 1971 Unknown [id number] [id number] .727 1971 Unknown [id number] [id number] .727 1959 Self-pay [id number] 1959 Unknown [id number] Unknown [place] BC/BS [id number] Unknown [id number] .531 Unknown [id number] [id number] .531 Unknown [id number] .531 Social History Date Type Detail Facility Tobacco smoking stat [facility] Unknown if ever smoked [facility] Work Phone: Start: 1970 Sex Assigned At Male [facility] Start: 04-25-2024 End: 05-25-2024 Tobacco smoking status Never smoked tobacco (finding) [facility] [place] Tobacco smoking status Smokeless tobacco user within last 30 days [facility] Start: 05-25-2024 End: 06-02-2024 Sex Assigned At Male [facility] Start: 05-25-2024 Tobacco use and exposure User of smokeless tobacco [facility] History of tobacco use Chews Tobacco [facility] Start: 05-25-2024 End: 06-02-2024 History of Social function [facility] Start: 1970 Sex assigned at Not on file [facility] Start: 06-08-2024 End: 06-28-2024 Alcoholic beverage intake Ex-drinker (finding) [facility] Has the [employer] or [employer] threatened to shut off services in your home in past 12Mo No [facility] (I/We) worried [facility] (my/our) food would run out before (I/we) got money to buy more. Never true [facility] Functional Status Date Assessment Result Facility 06-28-2024 Functional Status N/A [facility] [place] 04-25-2024 Functional Status N/A [facility] Clinical Notes 04-25-2024 to 06-30-2024 Telephone Encounter - Maria Luisa Montes - 06/30/2024 11:31 AM ESTTelephone Encounter - Maria Luisa Montes - 06/30/2024 11:31 AM ESTTelephone Encounter - Chelle Willis RN - 06/30/2024 10:23 AM EST Note Date & Type Note Facility 06-30-2024 Telephone encounter Note All appointments on 07/12/24 have been canceled Maria Luisa Montes PSS [facility] 06-30-2024 Miscellaneous Notes All appointments on 07/12/24 have been canceled Maria Luisa Montes PSS Voicemail received from pt's stating pt will be going to [place] to see their oncologist, and doesn't wish to follow up here. Please cancel appointments on 07/12. Call placed to to further assess. Message left requesting her to call our office back. Thanks Chelle Willis RN documented in this encounter [facility] 06-30-2024 Telephone encounter Note Voicemail received from pt's stating pt will be going to [place] to see their oncologist, and doesn't wish to follow up here. Please cancel appointments on 07/12. Call placed to to further assess. Message left requesting her to call our office back. Thanks Chelle Willis RN [facility] Work Phone: 06-29-2024 Note HNO ID: [id number] Author: CAMRYN BEAULIEU, Research Coordinator Service: ? Author Type: Research Type: Progress Notes Filed: 06/29/2024 08:26 Note Text: ---- Summary: [facility] Research Pre-Screening (IRB: [id number]) ---- Pipertalat Rodríguez was reviewed for potential clinical trial enrollment on [facility] #[id number] by the [facility] group on 06/29/24. Per initial review, patient has disease type Stage III CRC and appears to be preliminarily eligible and further testing/procedures required to determine final eligibility. Requesting democrat notified. No Study tasks were completed as a result of this initial review. Camryn Beaulieu, Research Coordinator [facility] 06-29-2024 History of Present illness Narrative Summary: [facility] Research Pre-Screening (IRB: [id number]) Piper Radertiffanie was reviewed for potential clinical trial enrollment on [facility] #[id number] by the [facility] group on 06/29/24. Per initial review, patient has disease type Stage III CRC and appears to be preliminarily eligible and further testing/procedures required to determine final eligibility. Requesting democrat notified. No Study tasks were completed as a result of this initial review. Camryn Beaulieu Research Coordinator documented in this encounter [facility] 06-29-2024 Note HNO ID: [id number] Author: MAYLIN CONTE APRN.CIRCULAR DISTRIBUTOR Service: ? Author Type: Nurse Practitioner Type: Progress Notes Filed: 06/29/2024 08:29 Note Text: [facility] Multidisciplinary GI Tumor Board Primary Disease: ascending colon cancer Oncologist: Dr. Bragg History: 54 year old male with ascending colon cancer now s/p a Laparoscopic Right Colectomy on 06/14/[address] Carias. Imagin06/02/2024 CT CAP IMPRESSION: 1. No acute pulmonary process is [...] pelvis. 4. Fatty infiltration of the liver. Surgical Pathologic Stage: FINAL DIAGNOSIS Terminal ileum, right colon, appendix, and omentum, resection: - Invasive moderately differentiated colonic adenocarcinoma. - Three of 18 lymph nodes involved by metastatic adenocarcinoma (3/18). - Appendix with fibrous obliteration of the tip. - Omentum with no evidence of tumor. - Terminal ileum with no evidence of tumor. - See synoptic report. Lymphatic and / or Vascular Invasion Not identified Perineural Invasion Not identified Tumor Budding Score High (10 or more) MARGINS Margin Status for Invasive Carcinoma All margins negative for invasive carcinoma Clinical Pathologic Stage: [id number] stage IIIB Recommendations: MMR studies pending. Referral to medical oncology for consideratio of adjuvant chemotherapy. Genetic counseling referral: no Eligibility for Clinic Trials: no Supportive Care Services (PT/OT/Palliative Medicine/Social Work/Pain Management): no Synoptic OP note completed: yes Attendees: Representatives were present from Medical Oncology, Colorectal Surgery, HPB Surgery, Surgical Oncology, Radiation Oncology, Radiology, Interventional radiology, Gastroenterology and Pathology. This is the summary of the general discussion provided at tumor board conference. The final recommendations will be made by the primary health care team and the patient after discussing the benefits, risks and alternatives to the various treatment options [facility] 06-28-2024 Note General Surgery Offi ce/Clinic Note Chief Complaint consultation for port insertion HPI Staff 54 year old male presents on consultation from Dr. Esteves for port placement; now seeing Dr. Bragg at [facility]. Patient with metastatic colon adenocarcinoma. Right colectomy completed 06/14/24. History of Present Illness 54 yo male recently diagnosed with cecal adenocarcinoma, s/p LS right colectomy at [facility] 06/14/24, stage IIIb adenocarcinoma; had wound dehiscence requiring fascial closure 06/21/24; now seeing Dr. Bragg at [facility]; referred for port placement; no previous port placement; no asa or NSAID use; no tobacco use; no h/o clavicular fracture or XRT to chest/neck. Review of Systems PHQ Score Initial Depression [...] in stool, no change in bowel habits, no abdominal pain, no hepatitis. Genitourinary: no kidney [...] noncontributory. Physical Exam Vitals & Measurements HR: 72(Peripheral) RR: 16 BP: 128/84 HT: 70 in HT: 177.8 cm WT: 116.2 kg WT: 256.177 lb BMI: 36.76 HEENT: normal conjunctiva, sclera clear, no scleral icterus, EOM intact, PERRLA, oral mucosa moist without lesions. Neck: trachea midline, no mass, symmetric, no thyromegaly or nodules, no adenopathy Respiratory: lungs CTA, respirations non labored. Cardiovascular: regular rate and rhythm, no murmur, no pedal edema or varicosities. Gastrointestinal: obese, soft, non distended, mild tenderness, healing midline incision with shola resolving ecchymosis no masses, no palpable hernias, diastasis recti [...] and possible complications with patient. Assessment/Plan 1. Stage III adenocarcinoma of colon (C18.9: Malignant neoplasm of colon, unspecified) plan [id number] insertion under anesthesia, informed consent obtained. Ancef 2 gms IV prior to OR SCDs Follow-up No qualifying data available Problem List/Past Medical History Ongoing Anemia BMI 36.0-36.9,adult Colon neoplasm Epigastric pain Essential hypertension Fatty liver History of alcohol abuse Hyperlipidemia Intestinal malabsorption Iron deficiency anemia Mass of colon Morbid obesity Other pancytopenia Periumbilical abdominal pain Positive occult stool blood test Sleep apnea Stage III adenocarcinoma of colon Historical No qualifying data Procedure/Surgical History Right colectomy (06/14/2024), Colonoscopy (05/10/2024), EGD - esophagogastroduodenoscopy (05/10/2024), Colonoscopy (06/03/2018), Arthroplasty of left hip, Arthroplasty of right hip. Medications Acidophilus Probiotic Blend, 1 cap(s), Oral, Daily Edarbi, 80 mg, Oral, Daily methocarbamol 500 mg Tab, 500 mg= 1 tab(s), Oral, TID, PRN Allergies No Known Allergies No Known Medication Allergies Social History Alcohol Past. Beer. Daily., 04/23/2024 Substance Abuse Never., 04/23/2024 Tobacco Never (less than 100 in lifetime), Chewing Tabacco Tobacco Use:. Smokeless tobacco user within last 30 days Smokeless Tobacco Use:. Oral, 14 per day. Yes, 06/28/2024 Family History Cancer: Father. Primary malignant neoplasm of rectum: Mother. Immunizations Vaccine Date Status Comments SARS-CoV-2 (COVID-19) mRNA-1273 vaccine 09/19/2020 Recorded 2024-04-17: TPV40 SARS-CoV-2 (COVID-19) mRNA-1273 vaccine 08/22/2020 Recorded 2024-04-17: TPV40 [facility] [place] Comment on above: Result Comment: Elec tronically Signed By: FLORIDALMA PATEL, Jone Bell\Date and Time Signed: 06/28/24 16:11 EST 06-28-2024 Note Addended by: JOSEPH CALHOUN on: 06/28/2024 11:30 AM Modules accepted: Orders [facility] 06-28-2024 Miscellaneous Notes Addended by: JOSEPH BRAGG on: 06/28/2024 11:30 AM Modules accepted: Orders documented in this encounter [facility] 06-28-2024 Instructions Joseph Bragg MD - 06/28/2024 11:13 AM EST Ordered port placement Chemo teach for FOLFOX F/u in 2 weeks documented in this encounter [facility] 06-28-2024 History of Present illness Narrative Images from the original note were not included. PATIENT NAME: Piper Rodríguez CLINIC NO.: [id number] ATTENDING PHYSICIAN: Joseph Bragg MD DATE OF SERVICE: June 28, [address] Donis Carias [id number] [facility] [id number] thank you for referring Piper Rodríguez for an opinion regarding Colon cancer. CHIEF COMPLAINT: Colon cancer. HPI: Piper Rodríguez is a 54 year old year old male with no significant PMH. In July 2023, he developed issues with abdominal [...] taken and confirmed invasive adenocarcinoma moderately differentiated. Colonoscopy (05/10/24) - Ulcerated mass in the cecum. Path showed invasive adenoca. Underwent laparoscopic right hemicolectomy on 06/14/24. Underwent Abdominal wound exploration and closure on 06/21/24. Final path showed- Terminal ileum, right colon, appendix, and omentum, resection: - Invasive moderately differentiated colonic adenocarcinoma. - Three of 18 lymph nodes involved by metastatic adenocarcinoma (3/18). - pT3 pN1b. 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 Grand mother has colon cancer. No smoking. Chews tobacco Quit alcohol. 3 children. Doing well No major complaints. Current Outpatient Medications Medication Sig methocarbamol (ROBAXIN) 500 mg tablet Take 1 tablet by mouth three times a day. acetaminophen (TYLENOL) 500 mg tablet Take 2 tablets by mouth every 6 hours. enoxaparin (LOVENOX) 40 mg/0.4 mL Inject 0.4 mL subcutaneously every 24 hours for 21 days. lactobacillus rhamnosus (CULTURELLE) 10 billion cell capsule Take 1 capsule by mouth once daily. EDARBI 80 mg tab iv contrast (will be provided with radiology [...] in the CT contrast administration guidelines link. enteric contrast (will be provided with radiology test) For CT CHESTABD/PEL W IVCON Routine order Administer, As Directed One Time Only, via Oral, Rectal, both Oral and Rectal, Enteric Tube, Stoma or Indwelling Catheter, Enteric Contrast as designated per enteric contrast guidelines No current facility-administered medications for this visit. ALLERGIES No Known Allergies PAST MEDICAL HISTORY Diagnosis Date BMI 38.0-38.9,adult Colon cancer (HCC) HTN (hypertension) PAST SURGICAL HISTORY Procedure Laterality Date PAST SURGICAL HISTORY OF Bilateral hip arthroplasty (2018, 2020) PAST SURGICAL HISTORY OF 04/2024 colonoscopy (2019) No family history on file. Social History Tobacco Use Smoking status: Never Smokeless tobacco: Current Types: Chew Vaping Use Vaping status: Never Used Substance Use Topics Alcohol use: Not Currently Drug use: Not Currently REVIEW OF SYSTEMS GENERAL: No weight loss, malaise or fevers. No night sweats. HEENT: Negative for headaches, No changes in hearing or vision, no nose bleeds or other nasal problems. RESPIRATORY: Negative for cough, wheezing and shortness of breath CARDIOVASCULAR: Negative for chest pain, leg swelling and palpitations GI: Negative for abdominal discomfort, blood in stools or black stools and change in bowel habits : Negative for dysuria, frequency and incontinence MUSCULOSKELETAL: Negative for joint pain or swelling, back pain, and muscle pain. SKIN: Negative for lesions, rash, and itching. HEMATOLOGY/LYMPHOLOGY Negative for prolonged bleeding, bruising easily, and swollen nodes. NEURO: Negative for numbness or tingling of hands/feet. No weakness. PHYSICAL EXAMINATION: There were no vitals taken for this visit. There were no vitals taken for this visit. Last 3 Encounter Wt Readings: Date: Wt: 06/21/2024 117.9 kg (260 lb) 06/08/2024 122.6 kg (270 lb 4.5 oz) 05/25/2024 122.5 kg (270 lb) General appearance:ECOG PERFORMANCE STATUS: 0- Fully active, able to carry on all pre-disease performance w/o restriction. Patient in NAD. Skin: Skin color, texture, turgor normal. No rashes or lesions. Eyes: Anicteric sclera. Pupils are equally round and reactive to light. Extraocular movements are intact. Breast: No palpable breast masses. No nipple change or discharge. Lymph Nodes: No cervical, supraclavicular, axillary or inguinal adenopathy. Oropharynx: Lips, mucosa, and tongue normal. Back: No pain to percussion. Negative SLR test Lungs clear to auscultation, No wheezing or rhonchi Heart: RRR without murmur, gallop, or rubs. Abdomen soft, non-tender. No masses, organomegaly Extremities: No deformities. No edema Neuro: Gait and speech normal. Reflexes normal and symmetric. Muscular strength intact. Sensation grossly intact. Rectal: Deferred : Deferred LABS: Glucose (mg/dL) Date Value 06/23/2024 105 Potassium (mmol/L) Date Value 06/23/2024 4.2 Sodium (mmol/L) Date Value 06/23/2024 138 Chloride (mmol/L) Date Value 06/23/2024 104 CO2 (mmol/L) Date Value 06/23/2024 24 Creatinine (mg/dL) Date Value 06/23/2024 0.96 BUN (mg/dL) Date Value 06/23/2024 13 Anion Gap (mmol/L) Date Value 06/23/2024 10 Calcium, Total (mg/dL) Date Value 06/23/2024 8.9 Protein, Total (g/dL) Date Value 06/21/2024 8.0 Albumin (g/dL) Date Value 06/21/2024 4.2 Bilirubin, Total (mg/dL) Date Value 06/21/2024 0.3 Alkaline Phosphatase (U/L) Date Value 06/21/2024 72 AST (U/L) Date Value 06/21/2024 58 ALT (U/L) Date Value 06/21/2024 91 WBC Date Value Ref Range Status 06/23/2024 6.59 3.70 - 11.00 k/uL Final RBC Date Value Ref Range Status 06/23/2024 4.06 (L) 4.20 - 6.00 m/uL Final Hemoglobin Date Value Ref Range Status 06/23/2024 11.9 (L) 13.0 - 17.0 g/dL Final Hematocrit Date Value Ref Range Status 06/23/2024 38.0 (L) 39.0 - 51.0 % Final MCV Date Value Ref Range Status 06/23/2024 93.6 80.0 - 100.0 fL Final MCH Date Value Ref Range Status 06/23/2024 29.3 26.0 - 34.0 pg Final MCHC Date Value Ref Range Status 06/23/2024 31.3 30.5 - 36.0 g/dL Final RDW-CV Date Value Ref Range Status 06/23/2024 14.6 11.5 - 15.0 % Final Platelet Count Date Value Ref Range Status 06/23/2024 187 150 - 400 k/uL Final MPV Date Value Ref Range Status 06/23/2024 10.8 9.0 - 12.7 fL Final Abs Neut Date Value Ref Range Status 06/23/2024 3.58 1.45 - 7.50 k/uL Final Lymphocytes % Date Value Ref Range Status 06/23/2024 27.0 % Final Abs Lymph Date Value Ref Range Status 06/23/2024 1.78 1.00 - 4.00 k/uL Final Monocytes % Date Value Ref Range Status 06/23/2024 12.7 % Final Abs Gaines Date Value Ref Range Status 06/23/2024 0.84 <0.87 k/uL Final Abs Eosin Date Value Ref Range Status 06/23/2024 0.30 <0.46 k/uL Final Basophils % Date Value Ref Range Status 06/23/2024 0.8 % Final Abs Baso Date Value Ref Range Status 06/23/2024 0.05 <0.11 k/uL Final PATH: FINAL DIAGNOSIS Terminal ileum, right colon, appendix, and omentum, resection: - Invasive moderately differentiated colonic adenocarcinoma. - Three of 18 lymph nodes involved by metastatic adenocarcinoma (3/18). - Appendix with fibrous obliteration of the tip. - Omentum with no evidence of tumor. - Terminal ileum with no evidence of tumor. - See synoptic report. Block for additional Biomarkers/Molecular studies CCM A6 Synoptic Report COLON AND RECTUM: Resection 8th Edition - Protocol posted: 4COLON AND RECTUM: RESECTION - All Specimens SPECIMEN Procedure Right hemicolectomy TUMOR Tumor Site Ascending colon Histologic Type Adenocarcinoma Histologic Grade G2, moderately differentiated Tumor Size Greatest dimension (Centimeters): 5.6 cm Tumor Extent Invades through muscularis propria into the pericolonic or perirectal tissue Macroscopic Tumor Perforation Not identified Lymphatic and / or Vascular Invasion Not identified Perineural Invasion Not identified Tumor Budding Score High (10 or more) Treatment Effect No known presurgical therapy MARGINS Margin Status for Invasive Carcinoma All margins negative for invasive carcinoma Margin Status for Non-Invasive Tumor All margins negative for high-grade dysplasia / intramucosal carcinoma and low-grade dysplasia REGIONAL LYMPH NODES Regional Lymph Node Status Tumor present in regional lymph node(s) Number of Lymph Nodes with Tumor 3 Number of Lymph Nodes Examined 18 Tumor Deposits Not identified pTNM CLASSIFICATION (AJCC 8th Edition) Reporting of pT, pN, and (when applicable) pM categories is based on information available to the pathologist at the time the report is issued. As per the AJCC (Chapter 1, 8th Ed.) it is the managing physician's responsibility to establish the final pathologic stage based upon all pertinent information, including but potentially not limited to this pathology report. pT Category pT3 pN Category pN1b IMAGING: CT C/A/P (06/02/24)- IMPRESSION: 1. No acute pulmonary process is [...] pelvis. 4. Fatty infiltration of the liver. ASSESSMENT AND PLAN: Piper Rodríguez is a 54 year old year old male referred to us for colon cancer. PS 0 PLAN: - Underwent laparoscopic right hemicolectomy on 06/14/24. - Underwent Abdominal wound exploration and closure on 06/21/24. - Final path showed Invasive moderately differentiated colonic adenocarcinoma in the ascending colon, high tumor budding score, margins negative, no lymphovascular invasion. Three of 18 lymph nodes involved by metastatic adenocarcinoma (3/18). pT3 pN1b. Stage IIIB. - Explained to him in detail that he needs adjuvant chemotherapy FOLFOX for 6 months - Ordered port placement - All his questions answered in detail - F/u in [address] Donis Carias [id number] [address] [facility] [id number] thank you for allowing me to participate in Piper Rodríguez care, if there are any questions or concerns please do not hesitate to contact me at the number below. I spent a total of 60 minutes on the date of the service which included preparing to see the patient, [id number] patient care, completing clinical documentation, obtaining and/or reviewing separately obtained history, performing a medically appropriate examination, counseling and educating the patient/family/caregiver, ordering medications, tests, or procedures, communicating with other HCPs (not separately reported), independently interpreting results (not separately reported), communicating results to the patient/family/caregiver, and care coordination (not separately reported). Joseph Bragg MD. Hematology/Medical Oncology [facility] [phone] CC: documented in this encounter [facility] 06-28-2024 Note HNO ID: [id number] Author: JOSEPH BRAGG MD Service: ? Author Type: Physician Type: Progress Notes Filed: 06/28/2024 11:29 Note Text: PATIENT NAME: Piper Rodríguez [place] [facility] NO.: [id number] ATTENDING PHYSICIAN: Joseph Bragg MD DATE OF SERVICE: June 28, [address] Donis Carias [phone] [address] [facility] [id number] thank you for referring Piper Rodríguez for an opinion regarding Colon cancer. CHIEF COMPLAINT: Colon cancer. HPI: Piper Rodríguez is a 54 year old year old male with no significant PMH. In July 2023, he developed issues with abdominal [...] taken and confirmed invasive adenocarcinoma moderately differentiated. Colonoscopy (05/10/24) - Ulcerated mass in the cecum. Path showed invasive adenoca. Underwent laparoscopic right hemicolectomy on 06/14/24. Underwent Abdominal wound exploration and closure on 06/21/24. Final path showed- Terminal ileum, right colon, appendix, and omentum, resection: - Invasive moderately differentiated colonic adenocarcinoma. - Three of 18 lymph nodes involved by metastatic adenocarcinoma (3/18). - pT3 pN1b. MSI Pending Works in a [employer]. Grand mother has colon cancer. No smoking. Chews tobacco Quit alcohol. 3 children. Doing well No major complaints. Current Outpatient Medications Medication Sig methocarbamol (ROBAXIN) 500 mg tablet Take 1 tablet by mouth three times a day. acetaminophen (TYLENOL) 500 mg tablet Take 2 tablets by mouth every 6 hours. enoxaparin (LOVENOX) 40 mg/0.4 mL Inject 0.4 mL subcutaneously every 24 hours for 21 days. lactobacillus rhamnosus (CULTURELLE) 10 billion cell capsule Take 1 capsule by mouth once daily. EDARBI 80 mg tab iv contrast (will be provided with radiology [...] in the CT contrast administration guidelines link. enteric contrast (will be provided with radiology test) For CT CHESTABD/PEL W IVCON Routine order Administer, As Directed One Time Only, via Oral, Rectal, both Oral and Rectal, Enteric Tube, Stoma or Indwelling Catheter, Enteric Contrast as designated per enteric contrast guidelines No current facility-administered medications for this visit. ALLERGIES No Known Allergies PAST MEDICAL HISTORY Diagnosis Date BMI 38.0-38.9,adult Colon cancer (HCC) HTN (hypertension) PAST SURGICAL HISTORY Procedure Laterality Date PAST SURGICAL HISTORY OF Bilateral hip arthroplasty (2018, 2020) PAST SURGICAL HISTORY OF 04/2024 colonoscopy (2018) No family history on file. Social History Tobacco Use Smoking status: Never Smokeless tobacco: Current Types: Chew Vaping Use Vaping status: Never Used Substance Use Topics Alcohol use: Not Currently Drug use: Not Currently REVIEW OF SYSTEMS GENERAL: No weight loss, malaise or fevers. No night sweats. HEENT: Negative for headaches, No changes in hearing or vision, no nose bleeds or other nasal problems. RESPIRATORY: Negative for cough, wheezing and shortness of breath CARDIOVASCULAR: Negative for chest pain, leg swelling and palpitations GI: Negative for abdominal discomfort, blood in stools or black stools and change in bowel habits : Negative for dysuria, frequency and incontinence MUSCULOSKELETAL: Negative for joint pain or swelling, back pain, and muscle pain. SKIN: Negative for lesions, rash, and itching. HEMATOLOGY/LYMPHOLOGY Negative for prolonged bleeding, bruising easily, and swollen nodes. NEURO: Negative for numbness or tingling of hands/feet. No weakness. PHYSICAL EXAMINATION: There were no vitals taken for this visit. There were no vitals taken for this visit. Last 3 Encounter Wt Readings: Date: Wt: 06/21/2024 117.9 kg (260 lb) 06/08/2024 122.6 kg (270 lb 4.5 oz) 05/25/2024 122.5 kg (270 lb) General appearance:ECOG PERFORMANCE STATUS: 0- Fully active, able to carry on all pre-disease performance w/o restriction. Patient in NAD. Skin: Skin color, texture, turgor normal. No rashes or lesions. Eyes: Anicteric sclera. Pupils are equally round and reactive to light. Extraocular movements are intact. Breast: No palpable breast johnny (more content not included)... [facility] 06-23-2024 Note HNO ID: [id number] Author: ELAYNE GONZALEZ LSW Service: Care Management Author Type: Victim Witness Administrator Type: Care Mgt Initial Assessment Filed: 06/23/2024 10:12 Note Text: ---- Summary: High Risk Readmission ---- CARE MANAGEMENT: ASSESSMENT AND DISCHARGE PLAN SERVICE DATE: June 23, 2024 SERVICE TIME: 9:30 PCP: Gen Peña MD Primary Contact: Extended Emergency Contact Information Primary Emergency Contact: Lisa Rodríguez Address: [address] [place] [address] Mobile Relation: Spouse Preferred language: [place]ET[place]ESE Medical Sales Consultant needed? No Admission Status: Inpatient Insurance Provider: [facility] PPO Discharge Planning requested by: Per Department Practice Potential Transition Plans No Services Indicated Advance Directives Current Advance Directive: None Manager Star Attempted to Assist with AD Completion: Yes Action: Education Provided Current Living Arrangements and Support Lives with: Spouse/significant other Type of Residence: Private Residence (House) Support: Spouse/significant other How do you manage to accomplish the following: Independent: Ambulation;Transportation to appointments/community;Bathe/Shower;Dr ess;Meals/Meal Prep;Going to the bathroom;Medication Management Current Services/Equipment Current Post-Acute Service(s): None Discharge Planning Patient Goal(s): General wellness [place] of Choice Explained: [place] of Choice Given: No Reason Not Given: No placements necessary Are you interested in bedside delivery of your medications? Yes Discharge Planning Participant(s): Patient Patient/Family Comments: Caregiver Assessment: Caregiver is ready, willing and able to meet the patient's needs as recommended by the inter-professional team: No Caregiver needed Transport at Discharge: Transportation Arrangements: Car Needs Prior to Discharge: Needs Prior to Discharge: Ready for Discharge Post-Acute Discharge Plan: NA Patient is independent and lives with his . No skilled needs. : No HCPOA paperwok on file within [facility] and verified to be current as of date/time of this note Legal Next of Kin Hierarchy per [place] Revised Code: Legal Spouse Lisa [phone] Majority of Adult Children (consensus if possible) Parents Majority of Adult Siblings (consensus if possible) Nearest Blood Relative REID Prabhakar June 23, 2024 HIGH RISK READMISSION NOTE: HAS PATIENT BEEN READMITTED WITHIN THE PAST 7 DAYS?: yes 30-DAY READMISSION RISK (%) of 40 OR ABOVE?: no READMISSION SCORE: unknown SDOH QUESTIONS REVIEWED WITH PATIENT?: yes DATE OF LAST ADMISSION: 06/14-06/16 PT STATED REASON FOR ADMISSION: incision shola popped out PATIENT GOALS: go home INTERVENTIONS IMPLEMENTED TO PREVENT READMISSION: NA, patient had surgery PCP OR F/U VISIT ARRANGED ? Yes IF YES, DATE AND PROVIDER: Friday July 05, 2024 10:40 AM with colorectal DISCHARGE PLAN: no skilled needs SIGNATURE: REID Prabhakar PATIENT NAME: Piper Rodríguez DATE: June 23, 2024 TIME: 10:08 AM [facility] 06-23-2024 Note HNO ID: [id number] Author: DONIS CARIAS MD Service: Colorectal Author Type: Physician Type: Progress Notes Filed: 06/23/2024 13:40 Note Text: Documentation Query Please specify a diagnosis associated with the Clinical Indicators for this patient Obesity class 2 This document will become part of the patient's medical record. [facility] 06-22-2024 Note HNO ID: [id number] Author: MARY WORRELL RN Service: Nursing Author Type: Registered Nurse Type: Nursing Progress Note Filed: 06/22/2024 15:45 Note Text: 1545 report called to AR. [facility] 06-22-2024 Note HNO ID: [id number] Author: LASHONDA DELGADO MD Service: Colorectal Author Type: Resident Type: Progress Notes Filed: 06/22/2024 08:11 Note Text: COLORECTAL SURGERY PROGRESS NOTE Piper Rodríguez [id number] Patient Active Hospital Problem List: Perioperative dehiscence of abdominal wound with evisceration, initial encounter Date Noted: 06/21/2024 Wound dehiscence Date Noted: 06/21/2024 SUBJECTIVE: No acute events overnight. Pain well controlled. No nausea or vomiting. No flatus or BM yet OBJECTIVE: BP 111/58 Pulse (!) 44 Temp 36.6 ?C (97.9 ?F) (Oral) Resp 14 Ht 177.8 cm (5' 10 ) Wt 117.9 kg (260 lb) SpO2 95% BMI 37.31 kg/m? Body mass index is 37.31 kg/m?. GENERAL: Alert and oriented, no acute distress, cooperative. LUNGS: Non labored breathing ABDOMEN: soft, appropriately tender, non distended. WOUND: clean, dry and intact Labs: CBC, Coags, BMP, Mg, Phos Recent Labs 06/22/24 0506 06/21/24 1408 WBC 8.70 7.87 HB 12.8* 14.3 HCT 40.4 45.2 PLT 192 222 NA 136 138 K 4.6 4.3 CHLOR 103 99 CO2 24 28 BUN 13 14 CREAT 0.93 0.99 GLUC 107* 102* CA 8.9 9.6 MG 2.1 2.3 P 3.8 -- Liver Function, Amylase, AND Lipase Recent Labs 06/21/24 1408 TPROT 8.0 ALB 4.2 ALT 91* AST 58* ALKPHOS 72 TBILI 0.3 I/O past 24h: Intake/Output Summary (Last 24 hours) at 06/22/2024 0807 Last data filed at 06/22/2024 0504 Gross per 24 hour Intake 2054 ml Output 405 ml Net 1649 ml LDA: Lines, Drains, and Airways Line Duration Peripheral 06/21/24 1500 [facility] Short Left Forearm 20 Gauge <1 day SURGERY/PROCEDURE: Procedure(s) and Anesthesia Type: * ABDOMINAL WOUND EXPLORATION AND CLOSURE - General ASSESSMENT AND PLAN Mr. Rodríguez is a 54 year old male with PMHx EtOH use, new diagnosis of cecal cancer who is now s/p laparoscopic right hemicolectomy 06/14. Discharged on POD2 without concern and now representing d/t wound evisceration now s/p abdominal wound exploration and fascial closure 06/21. Plan: - multimodal pain regimen: tyl, toradol, robaxin, oxy, dilaudid - advance to GIS, HLIV - 24hrs of ancef - lovenox ppx - c/t culturelle - encouarge IS, ambulation Lashonda Delgado MD General Surgery, PGY2 Please contact [phone] during the days for any questions. For nights and weekends, please contact [phone]. [facility] 06-21-2024 Note HNO ID: [id number] Author: JULIOCESAR ENRIQUE APRN.PRODUCE DEPARTMENT SUPERVISOR Service: Anesthesiology Author Type: Nurse Service Shop Foreman Type: Anesthesia Procedure Notes Filed: 06/21/2024 16:11 Note Text: ANESTHESIOLOGY PROCEDURE NOTE Airway General Information Procedure Start Time/Medication Administration: 06/21/2024 3:58 PM Procedure End Time: 06/21/2024 3:58 PM Patient location during procedure: OR Timeout Performed Pre-procedure: timeout performed Consent Obtained: Yes 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, care human resources team member and patient Staffing PRODUCE DEPARTMENT SUPERVISOR: Juliocesar Enrique APRN.PRODUCE DEPARTMENT SUPERVISOR Performed by: EVIN Indications and Patient Condition Indications for airway management: anesthesia and airway protection Preoxygenated: yes anesthesia circuit Patient position: sniffing Method: rapid sequence Cricoid Pressure: Yes Manual In-Line Stabilization: No Difficult mask ventilation: n/a. Final Airway Details Final airway type: endotracheal airway Final Endotracheal Airway: ETT Cuffed: yes Successful intubation technique: video laryngoscopy Devices used: Padilla Endotracheal tube insertion site: oral Blade: Zeenat Blade size: #4 ETT size (mm): 7.5 Measured from: lips Measurement (cm): 23 Placement verified by: chest auscultation and capnometry Cormack-Lehane Classification: grade I - full view of glottis Number of attempts at approach: 2 (VERY small mouth opening. Video laryngoscopy needed. Easy ETT placement with Padilla.) Ventilation between attempts: none Failed airway: no Unrecognized esophageal intubation: no Airway not difficult SIGNATURE: Juliocesar Enrique APRN.PRODUCE DEPARTMENT SUPERVISOR PATIENT NAME: Piper Rodríguez DATE: June 21, 2024 TIME: 4:10 PM CSN: [id number] [facility] 06-21-2024 Telephone encounter Note Patient called stating he coughed and his incision opened even more than yesterday. He thinks it's 3 times the size of yesterday. He denies pain, denies much bleeding. We discussed the fascia and the concern for this being open. He states the doctor explained this to him yesterday and did not find an opening in the fascia. We discussed waiting for his appointment tomorrow vs going to [facility] ED. Ultimately, he thinks he will go to [facility] ED. [facility] 06-21-2024 Miscellaneous Notes Patient called stating he coughed and his incision opened even more than yesterday. He thinks it's 3 times the size of yesterday. He denies pain, denies much bleeding. We discussed the fascia and the concern for this being open. He states the doctor explained this to him yesterday and did not find an opening in the fascia. We discussed waiting for his appointment tomorrow vs going to [facility] ED. Ultimately, he thinks he will go to [facility] ED. documented in this encounter [facility] 06-20-2024 Telephone encounter Note Returned call. Spoke with his . She said they went to their local ED. It was his bigger incision that opened. The ED doctor was asking them for Dr. Carias's contact information so he can communicate with her. Provided info to physician [facility] 06-20-2024 Miscellaneous Notes Returned call. Spoke with his . She said they went to their local ED. It was his bigger incision that opened. The ED doctor was asking them for Dr. Carias's contact information so he can communicate with her. Provided info to physician Patient calling concerned about surgical incision. She states it has opened up. Asking to speak to nurse to find out if they should go to local ER CB# [phone] documented in this encounter [facility] 06-20-2024 Telephone encounter Note Patient calling concerned about surgical incision. She states it has opened up. Asking to speak to nurse to find out if they should go to local ER CB# [phone] [facility] 06-19-2024 Telephone encounter Note Returned call. He would like to be able to return to the office for a few hours every other day. He asked for a note to allow him to do this. His job does not require any physical activity. Note sent through My Chart. [facility] 06-19-2024 Miscellaneous Notes Returned call. He would [...] what he can and cannot do CB# [phone] documented in this encounter [facility] 06-19-2024 Telephone encounter Note Patient had surgery on 06/14/24. He is asking to speak to a nurse about his restrictions and what he can and cannot do # [phone] [facility] 06-16-2024 Note HNO ID: [id number] Author: DONIS CARIAS MD Service: Colorectal Author Type: Physician Type: Progress Notes Filed: 06/20/2024 15:11 Note Text: Documentation Query Please clarify the significance of the pathology report I agree with the pathology findings dated 06/14/24 which confirms the clinically significant diagnosis of Invasive moderately differentiated colonic adenocarcinoma and three of 18 lymph nodes involved by metastatic adenocarcinoma (3/18) This document will become part of the patient's medical record. [facility] 06-16-2024 Note HNO ID: [id number] Author: DAVON WATSON MD Service: Colorectal Author Type: Resident Type: [...] likely home today if labs improved. Davon Watson MD PGY-6 Colorectal Surgery Resident Blue Team Pager: [phone] General Surgery Colorectal Surgery On-Call Pager: [phone](Weekends, Weekdays 6PM-6AM)` SUBJECTIVE: No acute issues overnight. [...] EXTREMITIES: warm and well perfused Date 06/15/24 0700 - 06/16/24 0659 06/16/24 07 - 06/17/24 0659 Shift 9007-3221 6328-5463 9657-7147 24 Hour Total 5891-1834 7432-1295 8685-7863 24 Hour Total INTAKE Shift Total OUTPUT Urine 800 1500 2300 Void (ml) 800 1500 2300 # of BMs Number of BMs 1 x 1 x Shift Total 800 1500 2300 Weight (kg) 122.5 122.5 122.5 122.5 122.5 122.5 122.5 122.5 LABORATORY AND IMAGING: CBC Recent Labs 06/15/24441 WBC 9.78 HB 13.8 HCT 41.5 PLT 176 Metabolic Panel Recent Labs 06/15/24441 NA 134* K 4.8 CHLOR 100 CO2 21* CREAT 1.25* BUN 19 GLUC 105* CA 8.9 [facility] 06-15-2024 Note HNO ID: [id number] Author: GELY AKINS RN Service: Care Management Author Type: Registered Nurse Type: Care Mgt Initial Assessment Filed: 06/15/2024 11:22 Note Text: CARE MANAGEMENT: ASSESSMENT AND DISCHARGE PLAN SERVICE DATE: June 15, 2024 SERVICE TIME: 11:00am PCP: Gen Peña MD Primary Contact: Extended Emergency Contact Information Primary Emergency Contact: Lisa Rodríguez Address: [address] [place] [address] Mobile Relation: Spouse Preferred language: VIET[place]ESE Medical Sales Consultant needed? No Admission Status: Inpatient Insurance Provider: MMO SUPERMED PPO Discharge Planning requested by: Per Department Practice Potential Transition Plans Home Advance Directives Current Advance Directive: None Manager Star Attempted to Assist with AD Completion: Yes Action: Education Provided Current Living Arrangements and Support Lives with: Spouse/significant other Type of Residence: Private Residence (House) Does the patient have to climb stairs at home?: Yes;stairs outside the home Support: Family members, Spouse/significant other How do you manage to accomplish the following: Independent: Ambulation;Bathe/Shower;Dress;Meals/Me al Prep;Going to the bathroom;Medication Management;Transportation to appointments/community Current Services/Equipment Current Post-Acute Service(s): None Discharge Planning Patient Goal(s): General wellness, Be able to go home, Independent living, Be able to drive [place] of Choice Explained: [place] of Choice Given: No Reason Not Given: [...] soon. Pt lives with spouse. 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 Pt reports he has good support system. Denies needs. No skilled needs identified. Spouse will transport home at discharge. CM remains available if needs arise. SIGNATURE: Gely Akins RN PATIENT NAME: Piper Rodríguez DATE: June 15, 2024 TIME: 11:20 AM [facility] 06-15-2024 Note HNO ID: [id number] Author: LASHONDA DELGADO MD Service: Colorectal Author Type: Resident Type: Progress Notes Filed: 06/15/2024 08:35 Note Text: ---- Attestation signed by Donis Carias MD at 06/15/2024 8:18 PM I evaluated the patient and personally participated in the conley components. I agree with the resident's findings and plan with the following revisions and/or additions: Tolerating GIS and having bowel function. Home tomorrow with lovenox injection Signature: Donis Carias MD Service Date: 06/15/2024 ---- COLORECTAL SURGERY PROGRESS NOTE Piper Rodríguez [id number] Patient Active Hospital Problem List: Malignant neoplasm [...] and Airways Line Duration Peripheral 06/14/24 0816 [facility] Left Antecubital 20 Gauge 1 day [...] Delgado MD General Surgery, PGY2 Please contact [phone] during the days for any questions. For nights and weekends, please contact [phone]. [facility] 06-14-2024 Note HNO ID: [id number] Author: ANNABEL THACKER APRN.PRODUCE DEPARTMENT SUPERVISOR Service: Nursing Author Type: Nurse Service Shop Foreman Type: Anesthesia Procedure Notes Filed: 06/14/2024 09:22 Note Text: ANESTHESIOLOGY PROCEDURE NOTE PIV General Information Procedure Start Time/Medication Administration: 06/14/2024 9:02 AM Procedure End Time: 06/14/2024 9:02 AM Patient Location: OR Staffing PRODUCE DEPARTMENT SUPERVISOR: Annabel Thacker APRN.PRODUCE DEPARTMENT SUPERVISOR Performed by: PRODUCE DEPARTMENT SUPERVISOR Preparation Sterility Preparation: hand hygiene performed prior to procedure, surgical cap used, mask used, skin prep agent completely dried prior to procedure Site Prep: chlorhexidine Procedure Details Indication: need for IV access Needle Size/Type: 20 gauge angiocath Orientation: Right Location: Hand Imaging Guidance Used: No SIGNATURE: Annabel Thacker APRN.PRODUCE DEPARTMENT SUPERVISOR PATIENT NAME: Piper Rodríguez DATE: June 14, 2024 TIME: 9:20 AM CSN: [id number] [facility] 06-14-2024 Note HNO ID: [id number] Author: ANNABEL THACKER APRN.PRODUCE DEPARTMENT SUPERVISOR Service: Nursing Author Type: Nurse Service Shop Foreman Type: Anesthesia Procedure Notes Filed: 06/14/2024 09:20 Note Text: ANESTHESIOLOGY PROCEDURE NOTE Airway General Information Procedure Start Time/Medication Administration: 06/14/2024 8:59 AM Procedure End Time: 06/14/2024 8:59 AM Patient location during procedure: OR 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, care human resources team member and patient Staffing Anesthesiologist: Ila Mortensen MD PRODUCE DEPARTMENT SUPERVISOR: Annabel Thacker APRN.PRODUCE DEPARTMENT SUPERVISOR Performed by: PRODUCE DEPARTMENT SUPERVISOR Indications and Patient Condition Indications for airway [...] no Airway not difficult SIGNATURE: Annabel Thacker APRN.CRNA PATIENT NAME: Piper Rodríguez DATE: June 14, 2024 TIME: 9:19 AM CSN: [id number] [facility] 06-08-2024 Instructions Aubrey Baer PA-C - 06/08/2024 8:55 AM EST PATIENT PREOPERATIVE INSTRUCTIONS Donis Carias MD has scheduled you for your procedure at this surgery center: [facility]: [phone] --[id number] [address]. Please check in on the 1st floor [...] Procedures: - YOU MUST HAVE A RESPONSIBLE INVESTIGATION OFFICER TAKE YOU HOME. A SCANNING CLERK OR BUILDING DISMANTLER CANNOT BE MADE A RESPONSIBLE INVESTIGATION OFFICER. - We recommend that a responsible person [...] Advance Directive, please fax a copy to [phone] or email to for it to be [...] chart that day documented in this encounter [facility] 06-08-2024 History and physical note HISTORY AND PHYSICAL EXAMINATION SERVICE DATE: 06/08/2024 SERVICE TIME: 8:45 AM PRIMARY CARE PHYSICIAN: Gen Peña MD REASON FOR VISIT: Piper Rodríguez is [...] 5 (+SHERIE, unable to tolerate CPAP ) [id number] Score: Age: <65 Sex: male CHF history: No Hypertension history: Yes Stroke/TIA/thromboembolism history: No Vascular disease history: No Diabetes history: No [id number] Score: 1 ARISCAT Score: Age: 51-80 Preoperative [...] Ramos present: no Lip Bite Test: II Microretrognathia/Micronagthia/Recesse d Chin: No DENTAL Dental findings: teeth intact. [...] fevers. Neuro: No history of TIA's, stroke, FISHERIES INSPECTOR tumor, impaired sensorium, hemiplegia, paraplegia or quadraplegia. [...] Piper Rodríguez DATE: 06/08/2024 TIME: 9:18 AM [facility] 06-08-2024 History and physical note HISTORY AND PHYSICAL EXAMINATION SERVICE DATE: 06/08/2024 SERVICE TIME: 8:45 AM PRIMARY CARE PHYSICIAN: Gen Peña MD REASON FOR VISIT: Piper Rodríguez is [...] 5 (+SHERIE, unable to tolerate CPAP ) [id number] Score: Age: <65 Sex: male CHF history: No Hypertension history: Yes Stroke/TIA/thromboembolism history: No Vascular disease history: No Diabetes history: No [id number] Score: 1 ARISCAT Score: Age: 51-80 Preoperative [...] Ramos present: no Lip Bite Test: II Microretrognathia/Micronagthia/Recesse d Chin: No DENTAL Dental findings: teeth intact. [...] fevers. Neuro: No history of TIA's, stroke, FISHERIES INSPECTOR tumor, impaired sensorium, hemiplegia, paraplegia or quadraplegia. [...] TIME: 9:18 AM documented in this encounter [facility] 06-05-[address] CAP reviewed with patient- no mets and will proceed with surgery as scheduled. Advised lifestyle changes for fatty liver and to follow up with PCP [facility] 06-05-[address] CAP reviewed with patient- no mets and will proceed with surgery as scheduled. Advised lifestyle changes for fatty liver and to follow up with PCP documented in this encounter [facility] 06-02-2024 History of Present illness Narrative Radiology Service Progress Note PATIENT [...] PATIENT PRESENTS WITH AN IMPLANTABLE OR ATTACHED SEED PELLETER: No RADIOLOGY DEPARTMENT: CT; Exam(s) Completed: Chest Abdomen Pelvis PERIPHERAL IV DATA: Site assessment: Clean,Dry and Intact, Site disposition Discontinued SIGNED BY: RT Rhys(Kervin) June 02, 2024 9:36 AM documented in this encounter [facility] 06-02-2024 Note HNO ID: [id number] Author: EVENS NELSON RT(R) Service: Radiology Author [...] PATIENT PRESENTS WITH AN IMPLANTABLE OR ATTACHED SEED PELLETER: No RADIOLOGY DEPARTMENT: CT; Exam(s) Completed: Chest Abdomen Pelvis PERIPHERAL IV DATA: Site assessment: Clean,Dry and Intact, Site disposition Discontinued SIGNED BY: MILADY Joiner) June 02, 2024 9:36 AM [facility] 06-02-2024 Nurse Note Radiology Service Progress [...] SITE APPEARANCE: Clean,Dry and Intact SIGNATURE: Abilio Tang RN PATIENT NAME: Piper Rodríguez DATE: June 02, 2024 TIME: 8:53 AM [facility] 06-02-2024 Nurse Note Radiology Service Progress Note [...] SITE APPEARANCE: Clean,Dry and Intact SIGNATURE: Abilio Tang RN PATIENT NAME: Piper Rodríguez DATE: June 02, 2024 TIME: 8:53 AM documented in this encounter [facility] 06-01-2024 Telephone encounter Note Spoke with patient. He was under the impression he could get his CT done in [place] and could have the images sent to Dr. Carias. We had a long discussion about the process to make that happen and my concerns that it would not be done in time to continue with his surgery on 06/14. He was agreeable to reschedule his CT at [facility] on 06/02/24. He will get his lab work done tomorrow prior to his CT. [facility] 06-01-2024 Miscellaneous Notes Spoke with patient. He was under the impression he could get his CT done in [place] and could have the images sent to Dr. Carias. We had a long discussion about the process to make that happen and my concerns that it would not be done in time to continue with his surgery on 06/14. He was agreeable to reschedule his CT at [facility] on 06/02/24. He will get his lab work done tomorrow prior to his CT. 06/01 Patient called, stated that he wanted to cancel CT that was for 06/02 due to distance to appointment. Stated that will go to [facility] to [facility] CT done. Was wondering if able to go to [place] for CT? documented in this encounter [facility] 06-01-2024 Telephone encounter Note 06/01 Patient called, stated that he wanted to cancel CT that was for 06/02 due to distance to appointment. Stated that will go to [facility] to [facility] CT done. Was wondering if able to go to [place] for CT? [facility] 05-25-2024 History of Present illness Narrative COLORECTAL SURGERY CLINIC NOTE May 25, 2024 Piper Rodríguez 54 year old This consult was requested by Dr. Hedrick and my final recommendations will be communicated to the requesting health care provider by way of the shared medical record for internal providers or letter via the [email or web address] for external providers. Chief Complaint: [...] No palpable mass Colonoscopy 05/10/24 - Dr. Hedrick @ [facility] Scan on 05/16/2024 9:34 AM by Norma Magallanes: [facility] operative note (path pending) [id number] Pathology Scan on 05/22/2024 8:26 AM by Be Cloud: [facility] Pathology Report 05/11/24 COLON, Biopsy, Cecum: COLONIC TISSUE WITH INVASIVE ADENOCARCINOMA, MODERATELY DIFFERENTIATED, ULCERATION NOTED 2. COLON, Biopsy, Sigmoid: LARGE TUBULAR ADENOMA (>1 CM), NEGATIVE FOR HIGH GRADE DYSPLASIA, AREAS SHOWING CAUTERY ARTIFACT ARE POSITIVE FOR ADENOMATOUS GLANDS 3. COLON, Biopsy, Descending: TUBULAR ADENOMA. NEGATIVE FOR HIGH GRADE DYSPLASIA Colonoscopy 06/03/2018 - Dr Hedrick @ [facility] Scan on 05/15/2024 9:54 AM by Be [...] MD Colorectal Surgery documented in this encounter [facility] 05-25-2024 Note HNO ID: [id number] Author: DONIS CARIAS MD Service: ? Author Type: Physician Type: Progress Notes Filed: 05/25/2024 12:48 Note Text: COLORECTAL SURGERY CLINIC NOTE May 25, 2024 Piper Rodríguez 54 year old This consult was requested by Dr. Hedrick and my final recommendations will be communicated to the requesting health care provider by way of the shared medical record for internal providers or letter via the [email or web address] for external providers. Chief Complaint: [...] No palpable mass Colonoscopy 05/10/24 - Dr. Hedrick @ [facility] Scan on 05/16/2024 9:34 AM by Norma Magallanes: [facility] operative note (path pending) [id number] Pathology Scan on 05/22/2024 8:26 AM by Be Cloud: [facility] Pathology Report 05/11/24 COLON, Biopsy, Cecum: COLONIC TISSUE WITH INVASIVE ADENOCARCINOMA, MODERATELY DIFFERENTIATED, ULCERATION NOTED 2. COLON, Biopsy, Sigmoid: LARGE TUBULAR ADENOMA (>1 CM), NEGATIVE FOR HIGH GRADE DYSPLASIA, AREAS SHOWING CAUTERY ARTIFACT ARE POSITIVE FOR ADENOMATOUS GLANDS 3. COLON, Biopsy, Descending: TUBULAR ADENOMA. NEGATIVE FOR HIGH GRADE DYSPLASIA Colonoscopy 06/03/2018 - Dr Hedrick @ [facility] Scan on 05/15/2024 9:54 AM by Be [...] or locally advanced, (more content not included)... [facility] 04-25-2024 Note General Surgery Offi ce/Clinic Note Chief Complaint consultation for anemia HPI Staff 54 year old male presents on consultation from Dr. Esteves and Dr. Peña for anemia. Original referral received July 2023. [...] Tobacco Use:. Smokele (more content not included)... [facility] Comment on above: Result Comment: Elec tronically Signed By: FLORIDALMA PATEL, Jone Bell\Date and Time Signed: 04/25/24 10:59 EST Evaluation + Plan note No data available for this section [facility] General Surgery [place] Evaluation note No [facility]: Evaluation note Diagnosis Malignant neoplasm of ascending colon (HCC)- Primary Malignant neoplasm of ascending colon [facility] Malignant neoplasm of ascending colon (HCC) Malignant neoplasm of ascending colon Malignant neoplasm of ascending colon (HCC) Malignant neoplasm of ascending colon documented in this encounter [facility] note* Diagnosis Pre-op evaluation- Primary Preoperative examination, [...] Associated Problem(s): HTN (hypertension) Assessment: managed with Quin, PCP following Stable, BP in office 06/08/2024: 128/82 * Assessment & Plan Note - Aubrey Baer PA-C - 06/08/2024 9:15 AM EST Associated Problem(s): BMI 38.0-38.9,adult Assessment: BMI 38.78 [facility]* Diagnosis Pre-op evaluation- Primary Preoperative examination, unspecified BMI 38.0-38.9,adult Body Mass Index 38.0-38.9, adult Smokeless tobacco use Tobacco use disorder SHERIE (obstructive sleep apnea) Obstructive sleep apnea (adult) (pediatric) Malignant neoplasm of ascending colon (HCC)- Primary Malignant neoplasm of ascending colon [facility] Pre-op evaluation- Primary Preoperative examination, unspecified BMI 38.0-38.9,adult Body Mass Index 38.0-38.9, adult Smokeless tobacco use Tobacco use disorder SHERIE (obstructive sleep apnea) Obstructive sleep apnea (adult) (pediatric) Malignant neoplasm of ascending colon (HCC) Malignant neoplasm of ascending colon documented in this encounter [facility] Discharge instructions No data available for this section [facility] General Surgery [place] Progress note No data available for this section [facility] Surgery [place] Reason for referral (narrative)* Outpatient Procedure (Routine) - New Request Specialty Diagnoses / Procedures Referred By Renetta hinkle Referred To [facility] Diagnoses Pre-op evaluation Procedures ECG COMPLETE ECG ROUTINE ECG W/LEAST 12 LDS W/I&R Aubrey Baer PA-C [address] [place] [address] [facility] [address] [place] [address] Referral ID Status Reason Start Date Expiration Date Visits Requested Visits Authorized [id number] New Request Auto-Generat ed Referral 06/08/2024 06/08/2025 1 1 [facility] Summary Purpose Family History No Family History Records Found No data available for this section No Family History Records Found No data available for this section No data available for this section No Family History Records FoundNo Family History Records FoundNo Family History Records Found Advance Directives No Advanced Directives Records Found Advance Directive Response Recorded Date/ Time Advance Directives No September 13 12:27pm Reason for Referral Specialty Diagnoses / Procedures Referred By Contac t Referred To Contact Oncology Diagnoses Malignant neoplasm of ascending colon (HCC) Procedures CONSULT TO ONCOLOGY OFFICE/OUTPATIENT NEW HIGH M[place] 60 [place] [address] [place] [address] Referral ID Status Reason Start Date Expiration Date Visits Requested Visits Authorized [id number] Authorized PCP Requested Referral 06/26/2024 06/26/2025 1 1 Specialty Diagnoses / Procedures Referred By Contac t Referred To Contact CT IMAGING Diagnoses Malignant neoplasm of ascending colon (HCC) Procedures CT CHEST W IVCON DIAGNOSTIC COMPUTED TOMOGRAPHY [place] [address] [place] [address] Ct Imaging [place] [address] Referral ID Status Reason Start Date Expiration Date Visits Requested Visits Authorized [id number] Authorized Auto-Generat ed Referral 05/25/2024 06/24/2025 1 1 Specialty Diagnoses / Procedures Referred By Contac t Referred To Contact CT IMAGING Diagnoses Malignant neoplasm of ascending colon (HCC) Procedures CT ABD/PEL W IVCON CT ABD & PELVIS [place] [address] [place] [address] Ct Imaging [place] [address] Referral ID Status Reason Start Date Expiration Date Visits Requested Visits Authorized [id number] Authorized Auto-Generat ed Referral 05/25/2024 06/24/2025 1 1 Additional Source Comments (unrecognized sect ion and content) No Status Records FoundNo Status Records FoundNo Status Records FoundNo Status Records FoundNo Status Records Found INFORMATION SOURCE (unrecogn ized section and content) DATE CREATED AUTHOR 07/18/2022 [facility] DATE CREATED AUTHOR AUTHOR'S ORGANIZ ATION 05/25/2024 [facility] DATE CREATED AUTHOR AUTHOR'S ORGANIZ ATION 06/30/2024 [facility] DATE CREATED AUTHOR AUTHOR'S ORGANIZ ATION 07/01/2024 [facility] DATE CREATED AUTHOR AUTHOR'S ORGANIZ ATION 07/03/2024 [facility] Care Teams (unrecognized sec tion and content) Team Status: Inactive Member Role Status Dates Gen Peña MD Attending Provider Active Sta rt: August 02, 2023 End: August 02, 2023 Team Status: Inactive Member Role Status Dates Kisha Esteves MD Attending Provider Active St art: September 13, 2023 End: September 13, 2023 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/Braze Applicator Relationship Specialty Start Date End Date Gen Peña MD [address] [place] [address] PCP - General Family Medicine 05/15/24 Jone Hedrick MD [address] [place] [address] [place] [id number] General Surgery 05/15/24 Blender/Braze Applicator Relationship Specialty Start Date End Date Gen Peña MD [address] [place] [address] PCP - General Family Medicine 05/15/24 Jone Hedrick MD [address] [address] General Surgery 05/15/24 Blender/Braze Applicator Relationship Specialty Start [place] [address] [place] [address] PCP - General Family Medicine 05/15/24 Jone Hedrick MD [address] [address] General Surgery 05/15/24 Blender/Braze Applicator Relationship Specialty Start Date End Date Gen Peña MD [address] [place] [address] PCP - General Family Medicine 05/15/24 Jone Hedrick MD [address] [address] General Surgery 05/15/24 Blender/Braze Applicator Relationship Specialty Start Date End Date Gen Peña MD [address] [place] [address] PCP - General Family Medicine 05/15/24 Jone Hedrick MD [address] [place] [address] General Surgery 05/15/24 Blender/Braze Applicator Relationship Specialty Start Date End Date Gen Peña MD [address] [place] [address] PCP - General Family Medicine 05/15/24 Jone Hedrick MD [address] [place] [address] General Surgery 05/15/24 Blender/Braze Applicator Relationship Specialty Start Date End Date Gen Peña MD [address] [place] [address] PCP - General Family Medicine 05/15/24 Jone Herdick MD [address] [place] [id number] General Surgery 05/15/24 Blender/Braze Applicator Relationship Specialty Start Date End Date Gen Peña MD [address] [place] [address] PCP - General Family Medicine 05/15/24 Jone Hedrick MD [address] [place] [id number] General Surgery 05/15/24 Blender/Braze Applicator Relationship Specialty Start Date End Date Gen Peña MD [address] [place] [address] PCP - General Family Medicine 05/15/24 Jone Hedrick MD [address] [place] [address] General Surgery 05/15/24 Blender/Braze Applicator Relationship Specialty Start Date End Date Gen Peña MD [address] [place] [address] PCP - General Family Medicine 05/15/24 Jone Hedrick MD [address] [place] [address] General Surgery 05/15/24 Blender/Braze Applicator Relationship Specialty Start Date End Date Gen Peña MD [address] [place] [address] PCP - General Family Medicine 05/15/24 Jone Hedrick MD [address] [place] [address] General Surgery 05/15/24 Blender/Braze Applicator Relationship Specialty Start Date End Date Gen Peña MD [address] [place] [address] PCP - General Family Medicine 05/15/24 Jone Hedrick MD [address] [place] [address] General Surgery 05/15/24 Chelle Willis, RN [address] [place] [address] Specialty Network Security Officer Hematology/Oncology 06/29/24 Joseph Bragg MD [address] [place] [address] Physician Hematology/Oncology 06/29/24 Goals (unrecognized section and content) Goals may be documented in a n alternate section No data available for this section No data available for this section No data available for this section Source Comments (unrecognize d section and content) In the event this informatio n is protected by the Federal Confidentiality of Alcohol and Drug Abuse Patient Records regulations: The Federal rules restrict any use of the information to criminally investigate or prosecute any alcohol or drug abuse patient.[facility] the event this information is protected by the Federal Confidentiality of Alcohol and Drug Abuse Patient Records regulations: The Federal rules restrict any use of the information to criminally investigate or prosecute any alcohol or drug abuse patient.[facility] the event this information is protected by the Federal Confidentiality of Alcohol and Drug Abuse Patient Records regulations: The Federal rules restrict any use of the information to criminally investigate or prosecute any alcohol or drug abuse patient.[facility] the event this information is protected by the Federal Confidentiality of Alcohol and Drug Abuse Patient Records regulations: The Federal rules restrict any use of the information to criminally investigate or prosecute any alcohol or drug abuse patient.[facility] the event this information is protected by the Federal Confidentiality of Alcohol and Drug Abuse Patient Records regulations: The Federal rules restrict any use of the information to criminally investigate or prosecute any alcohol or drug abuse patient.[facility] the event this information is protected by the Federal Confidentiality of Alcohol and Drug Abuse Patient Records regulations: The Federal rules restrict any use of the information to criminally investigate or prosecute any alcohol or drug abuse patient.[facility] the event this information is protected by the Federal Confidentiality of Alcohol and Drug Abuse Patient Records regulations: The Federal rules restrict any use of the information to criminally investigate or prosecute any alcohol or drug abuse patient.[facility] the event this information is protected by the Federal Confidentiality of Alcohol and Drug Abuse Patient Records regulations: The Federal rules restrict any use of the information to criminally investigate or prosecute any alcohol or drug abuse patient.[facility] the event this information is protected by the Federal Confidentiality of Alcohol and Drug Abuse Patient Records regulations: The Federal rules restrict any use of the information to criminally investigate or prosecute any alcohol or drug abuse patient.[facility] the event this information is protected by the Federal Confidentiality of Alcohol and Drug Abuse Patient Records regulations: The Federal rules restrict any use of the information to criminally investigate or prosecute any alcohol or drug abuse patient.[facility] Center[facility] the event this information is protected by the Federal Confidentiality of Alcohol and Drug Abuse Patient Records regulations: The Federal rules restrict any use of the information to criminally investigate or prosecute any alcohol or drug abuse patient.[facility] Center[facility] the event this information is protected by the Federal Confidentiality of Alcohol and Drug Abuse Patient Records regulations: The Federal rules restrict any use of the information to criminally investigate or prosecute any alcohol or drug abuse patient.[facility] Center[facility] the event this information is protected by the Federal Confidentiality of Alcohol and Drug Abuse Patient Records regulations: The Federal rules restrict any use of the information to criminally investigate or prosecute any alcohol or drug abuse patient.[facility] Reason for Visit (unrecogniz ed section and content) Reason Comments Colon Cancer Reason Comments Patient Question Specialty Diagnoses / Procedures Referred By Renetta hinkle Referred To Contact CT IMAGING Diagnoses Malignant neoplasm of ascending colon (HCC) Procedures CT CHEST W IVCON DIAGNOSTIC COMPUTED TOMOGRAPHY THORAX [place] [address] [place] [id number] [facility] [place] [address] Referral ID Status Reason Start Date Expiration Date V isits Requested Visits Authorized [id number] Closed Auto-Generate d Referral 05/25/2024 06/24/2025 1 1 Reason Comments Pre-Op Exam Reason Comments Post Op Reason Comments Colon Cancer New patient consult Specialty Diagnoses / Procedures Referred By Renetta t Referred To Contact Oncology Diagnoses Malignant neoplasm of ascending colon (HCC) Procedures CONSULT TO ONCOLOGY OFFICE/OUTPATIENT NEW HIGH MDM 60 [place] [address] [place] [id number] Referral ID Status Reason Start Date Expiration Date V isits Requested Visits Authorized [id number] Closed PCP Requested Referral 06/26/2024 06/26/2025 1 1 Reason Comments Research [facility] Research Pre-Scr eening (IRB: [id number]) Reason Comments Care Coordination Cancelling appointme nts at our office FOR RECORDS PERTAINING TO PATIENTS WHO ARE [...] BE BASED ON THE PRIMARY CLINICAL RECORDS. [employer] provides no warranty or guarantee of the accuracy or completeness of information in this document.
== END 2024-07-03 10:55 | disposition home or self-care (01) ==
LOC: PST 10:55
PROVIDERS: PCP Family Medicine; Visit Provider Surgery
DX: Z01.818 Encounter for other preprocedural examination (principal); C18.9 Malignant neoplasm of colon, unspecified

== ENCOUNTER 2024-07-05 10:56 | Day surgery (SDC) | payer OTHER, SELFPAY ==
[2024-07-03 11:27] VITALS: BP 112/61; PULSE 88; TEMP 36.3; O2SAT 96; BMI 36.7
--- NOTE | 2024-07-05 | OP_ITS ---
OPERATION DATE: 07/05/2024 PREOPERATIVE DIAGNOSIS: Stage 3B colon cancer, need for secure central access for chemotherapy. POSTOPERATIVE DIAGNOSIS: Stage 3B colon cancer, need for secure central access for chemotherapy. PROCEDURE: Right external jugular port-a-cath insertion. SURGEON: Geoffrey [place] M.D. ANESTHESIA: Monitored anesthesia care. ESTIMATED BLOOD LOSS: Less than 10 mL. INDICATIONS AND CONSENT: Patient is a 54-year-old male, recently diagnosed with stage 3B colon cancer. Indications, risks, benefits, alternatives of proceeding with Infusaport insertion were explained extensively to the patient, including risks of bleeding, infection, scarring, pain, catheter fracture, blood clot, pulmonary embolus, heart attack, anesthetic complications, pneumothorax, need for further surgery or port removal. All of his questions were answered. Informed consent was obtained. PROCEDURE: Patient brought to the operating room, placed in the supine position. Monitored anesthesia care was provided. He was placed in the Trendelenburg position. Incision was made perpendicular to the long axis of the right external jugular vein, carried down through the subcutaneous tissue using sharp dissection as well as electrocautery. The platysma was divided. External jugular was isolated between two 2-0 Vicryl ties. The cephalad tie was tied down. Venotomy was then made with a #11 blade and the pre-flushed catheter was then inserted and, under fluoroscopic guidance was adjusted so it was in good position in the distal SVC at the level of the mayela. It aspirated blood easily and was flushed with injectable saline. The distal tie was then tied down. Attention was then turned to the chest wall, where incision was made below the clavicle, to the right sternum, in the area of the skin crease. It was carried down through subcutaneous tissue using electrocautery. A pocket was created above the pectoralis fascia. Some of the subcutaneous fat was excised. Catheter was then tunneled from the neck incision to the chest wall incision. Fluoroscopy was checked once again prior to cutting the catheter. It was noted to be in good position in the distal SVC. Catheter was then cut and attached to the pre-flushed port. The port aspirated blood easily. It was then flushed with heparinized saline. The port was then secured to the pectoralis fascia using interrupted 2-0 Prolene sutures. The incisions were then closed in layers with interrupted 3-0 Monocryl subcutaneous sutures and 4-0 Monocryl subcuticular sutures. Skin glue was applied as well as sterile pressure dressings. Sponge and needle counts were correct x3 per nursing personnel. Patient tolerated procedure well, was sent to recovery room in good condition. Portable chest x- ray is pending at the time of this dictation. CC: Delta Pratt M.D. BLAKE
--- OUTSIDE RECORDS SUMMARY | 2024-07-05 11:14 | XMS_ITS | CCD ---
Author Organization [facility] Care Team Providers Care 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 Specialist Name Role Phone CASEY ., DR BLEVINS [...] Consulting Unavailable MD Gen Peña Attending Provider [phone] MD Kisha Esteves Attending Provider Gen Peña Primary Care Physician Gen Peña Attending Unavailable Gen Peña Admitting [...] Attending Unavailable Lazaro MONTOYA, Chelle Orta Unavailable [phone] Yemi PATEL, [facility] Unavailable DONIS CARIAS Admitting Unavailable DONIS CARIAS Attending Unavailable HOY, GEN M Primary Care Unavailable KECRISTOBALINRO, AJARATU Referring Unavailable JOSSIE PEÑALAS M Primary Care Unavailable KESHINRO, AJARATU Referring Unavailable JOSSIE PEÑALAS M Primary Care Unavailable KESHINRO, AJARATU Referring Unavailable HOLeroy, GEN M Primary Care Unavailable HOLeroy, GNE M Primary Care Unavailable KESHINRO, AJARATU Admitting [...] Propensity to adverse reactions (disorder) [facility] Repository Medications Current Medications Medication Drug Class(es) [...] 1 Each 05/25/2024 Active lactobacillus rhamnosus gg [id number] unt oral capsule (7 sources) Start: 5 [...] 02-08-2022 Episodic Other aftercare (1 source) 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 06-30-2024 [facility] Telephone (HEMASA) PIPER RODRÍGUEZ ([id number]) 1970 M Date Time Provider Department 06/30/24 CHELLE WILLIS During your visit today, we recorded the following information about you: Chelle Willis, RN 06/30/2024 11:10 AM Signed Voicemail received from pt's stating pt will be going to [place] to see their oncologist, and doesn't wish [...] Status:Closed by SABI ALLEN on 06/30/24 Normal [facility] Ambulatory Visit Summaryon 0 06-28-2024 Ambulatory Visit [...] for choosing us for your care. Andrea [facility] CNOVSPon 06-28-2024 CNOVSP Visit (SP) Office (H EMASA) PIPER RODRÍGUEZ ([id number]) 1970 M Date Time Provider Department 06/28/24 11:00 AM JOSEPH BRAGG During your visit today, we recorded the following information about you: Temperature Pulse Respiration Blood pressure 97.3 degrees 74/minute 18/minute 118/79 Weight Height 115.3 kg 1.778 m Joseph Bragg MD 06/28/2024 11:29 AM Signed PATIENT NAME: Piper Rodríguez CLINIC NO.: [id number] ATTENDING PHYSICIAN: Joseph Bragg MD DATE OF SERVICE: June 28, [address] Donis Carias [phone] [facility] [address] thank you for referring Piper Rodríguez for [...] pT3 pN1b. [employer] Pending Works in a [employer]. Grand mother has colon cancer. No smoking. [...] appearance:ECOG PER (more content not included)... Normal [facility] Basic metabolic 2000 panelon 06-23-2024 Anion gap [Moles/Vol] 10 mmol/L Normal 8-15 [facility] Comment on above: Order Comment: Speci men Type: BLOOD SPECIMENOrdering Facility: [facility] Address: [address] [place] [address] Performed By: #### 2 4321-2, , 2776-05 ####AMRITA LABORATORYCLIA [id number] [place] [address] [place] Calcium [Mass/Vol] 8.9 mg/dL Normal 8.5-10.2 [facility] Comment on above: Order Comment: Speci men Type: BLOOD SPECIMENOrdering Facility: [facility] Address: [address] [place] [address] Performed By: #### 2 4321-2, , 2776-05 ####[facility] LABORATORYCLIA [id number] [place] [id number] [place] Chloride [Moles/Vol] 104 mmol/L Normal 98-107 [facility] Comment on above: Order Comment: Speci men Type: BLOOD SPECIMENOrdering Facility: [facility] Address: [address] [place], [place] [address] Performed By: #### 2 4321-2, , 2776-05 ####AMRITA LABORATORYCLIA [id number] [place] [id number] [place] CO2 [Moles/Vol] 24 mmol/L Normal 22-30 [facility] Comment on above: Order Comment: Speci men Type: BLOOD SPECIMENOrdering Facility: [facility] Address: [address] [place] [address] Performed By: #### 2 4321-2, , 2776-05 ####AMRITA LABORATORYCLIA [id number] [place] [id number] [place] Creatinine [Mass/Vol] 0.96 mg/dL Normal 0.73-1.22 [facility] Comment on above: Order Comment: Speci men Type: BLOOD SPECIMENOrdering Facility: [facility] Address: [address] [place] [address] Performed By: #### 2 4321-2, , 2776-05 ####AMRITA LABORATORYCLIA [id number] [address] OF [facility] Creatinine and Glomerular filtration rate.predicted panel (S/P/Bld) 95 mL/min/1.73m??? Normal >=60 [facility] Comment on above: Order Comment: Speci men Type: BLOOD SPECIMENOrdering Facility: [facility] Address: [address] [place] [address] Result Comment: Dee mated Glomerular Filtration Rate [...] #### 2 4321-2, , 2776-05 ####AMRITA LABORATORYCLIA [id number] [place] [address] [place] Glucose [Mass/Vol] 105 mg/dL High 74-99 [facility] Comment on above: Order Comment: Ara men Type: BLOOD SPECIMENOrdering Facility: [facility] Address: [address] [place] [address] Result Comment: The [place] Diabetes Association (ADA) provides guidance for cutoff [...] Standards of Medical Care in Diabetes 2016, [place] [employer]. Diabetes Care. 2016.39(Suppl 1). Performed By: #### 2 4321-2, , 2776-05 ####[facility] LABORATORYCLIA [id number] [place] [address] [place] Potassium [Moles/Vol] 4.2 mmol/L Normal 3.7-5.1 [facility] Comment on above: Order Comment: Ara gio Type: BLOOD SPECIMENOrdering Facility: [facility] Address: [address] [place], [place] [address] Performed By: #### 2 4321-2, , 2776-05 ####AMRITA LABORATORYCLIA [id number] [place] [id number] [place] Sodium [Moles/Vol] 138 mmol/L Normal 136-144 [facility] Comment on above: Order Comment: Ara gio Type: BLOOD SPECIMENOrdering Facility: [facility] Address: [address] [place], [place] [address] Performed By: #### 2 4321-2, , 2776-05 ####[facility] LABORATORYCLIA [id number] [place] [id number] [place] Urea nitrogen [Mass/Vol] 13 mg/dL Normal 9-24 [facility] Comment on above: Order Comment: Speci men Type: BLOOD SPECIMENOrdering Facility: [facility] Address: [address] [place] [address] Performed By: #### 2 4321-2, 08560-6, 2777-1 ####AMRITA LABORATORYCLIA [id number] [place] [id number] [place] CBC W Auto Differential pane l (Bld)on 06-23-2024 Basophils (Bld) [#/Vol] 0.05 10*3/uL Normal <0.11 [facility] Comment on above: Order Comment: Speci men Type: BLOOD SPECIMENOrdering Facility: [facility] Address: [address] [place] [address] Performed By: #### 5 7021-8 ####AMRITA LABORATORYCLIA [id number] [place] [address] [place] Basophils/100 WBC (Bld) 0.8 % Normal [facility] Comment on above: Order Comment: Speci men Type: BLOOD SPECIMENOrdering Facility: [facility] Address: [address] [place] [address] Performed By: #### 5 7021-8 ####AMRITA LABORATORYCLIA [id number] [place] [address] [place] Differential cell count method Nom (Bld) Auto Normal [facility] Comment on above: Order Comment: Speci men Type: BLOOD SPECIMENOrdering Facility: [facility] Address: [address] [place] [address] Performed By: #### 5 7021-8 ####AMRITA LABORATORYCLIA [id number] [place] [id number] [place] Eosinophils (Bld) [#/Vol] 0.30 10*3/uL Normal <0.46 [facility] Comment on above: Order Comment: Speci men Type: BLOOD SPECIMENOrdering Facility: [facility] Address: [address] [place] [address] Performed By: #### 5 7021-8 ####AMRITA LABORATORYCLIA [id number] [place] [address] [place] Eosinophils/100 WBC (Bld) 4.6 % Normal [facility] Comment on above: Order Comment: Speci men Type: BLOOD SPECIMENOrdering Facility: [facility] Address: [address] [place] [address] Performed By: #### 5 7021-8 ####AMRITA LABORATORYCLIA [id number] [place] [address] [place] Erythrocyte distribution width (RBC) [Ratio] 14.6 % Normal 11.5-15.0 [facility] Comment on above: Order Comment: Speci men Type: BLOOD SPECIMENOrdering Facility: [facility] Address: [address] [place] [address] Performed By: #### 5 7021-8 ####AMRITA LABORATORYCLIA [id number] [address] [place] Hematocrit (Bld) [Volume fraction] 38.0 % Low 39.0-51.0 [facility] Comment on above: Order Comment: Speci men Type: BLOOD SPECIMENOrdering Facility: [facility] Address: [address] [place] [address] Performed By: #### 5 7021-8 ####AMRITA LABORATORYCLIA [id number] [place] [address] [place] Hemoglobin (Bld) [Mass/Vol] 11.9 g/dL Low 13.0-17.0 [facility] Comment on above: Order Comment: Speci men Type: BLOOD SPECIMENOrdering Facility: [facility] Address: [address] [place] [address] Performed By: #### 5 7021-8 ####AMRITA LABORATORYCLIA [id number] [place] [address] [place] Immature granulocytes (Bld) [#/Vol] 0.04 10*3/uL Normal <0.10 [facility] Comment on above: Order Comment: Speci men Type: BLOOD SPECIMENOrdering Facility: [facility] Address: [address] [place] [address] Performed By: #### 5 7021-8 ####[facility] LABORATORYCLIA [id number] [place] [id number] [place] Immature granulocytes/100 WBC (Bld) 0.6 % Normal [facility] Comment on above: Order Comment: Speci men Type: BLOOD SPECIMENOrdering Facility: [facility] Address: [address] [place] [address] Performed By: #### 5 7021-8 ####[facility] LABORATORYCLIA [id number] [place] [address] [place] Lymphocytes (Bld) [#/Vol] 1.78 10*3/uL Normal 1.00-4.00 [facility] Comment on above: Order Comment: Speci men Type: BLOOD SPECIMENOrdering Facility: [facility] Address: [address] [place] [address] Performed By: #### 5 7021-8 ####[facility] LABORATORYCLIA [id number] [address] [place] Lymphocytes/100 WBC (Bld) 27.0 % Normal [facility] Comment on above: Order Comment: Speci men Type: BLOOD SPECIMENOrdering Facility: [facility] Address: [address] [place] [address] Performed By: #### 5 7021-8 ####[facility] LABORATORYCLIA [id number] [place] [id number] [place] MCH (RBC) [Entitic mass] 29.3 pg Normal 26.0-34.0 [facility] Comment on above: Order Comment: Speci men Type: BLOOD SPECIMENOrdering Facility: [facility] Address: [address] [place] [address] Performed By: #### 5 7021-8 ####[facility] LABORATORYCLIA [id number] [address] [place] MCHC (RBC) [Mass/Vol] 31.3 g/dL Normal 30.5-36.0 [facility] Comment on above: Order Comment: Speci men Type: BLOOD SPECIMENOrdering Facility: [facility] Address: [address] [place] [address] Performed By: #### 5 7021-8 ####[facility] LABORATORYCLIA [id number] [place] [id number] [place] MCV (RBC) [Entitic vol] 93.6 fL Normal 80.0-100.0 [facility] Comment on above: Order Comment: Speci men Type: BLOOD SPECIMENOrdering Facility: [facility] Address: [address] [place] [address] Performed By: #### 5 7021-8 ####[facility] LABORATORYCLIA [id number] [place] [id number] [place] Monocytes (Bld) [#/Vol] 0.84 10*3/uL Normal <0.87 [facility] Comment on above: Order Comment: Speci men Type: BLOOD SPECIMENOrdering Facility: [facility] Address: [address] [place] [address] Performed By: #### 5 7021-8 ####[facility] LABORATORYCLIA [id number] [place] [address] [place] Monocytes/100 WBC (Bld) 12.7 % Normal [facility] Comment on above: Order Comment: Speci men Type: BLOOD SPECIMENOrdering Facility: [facility] Address: [address] [place] [address] Performed By: #### 5 7021-8 ####AMRITA LABORATORYCLIA [id number] [place] [id number] [place] Neutrophils (Bld) [#/Vol] 3.58 10*3/uL Normal 1.45-7.50 [facility] Comment on above: Order Comment: Speci men Type: BLOOD SPECIMENOrdering Facility: [facility] Address: [address] [place] [address] Performed By: #### 5 7021-8 ####[facility] LABORATORYCLIA [id number] [place] [id number] [place] Neutrophils/100 WBC (Bld) 54.3 % Normal [facility] Comment on above: Order Comment: Speci men Type: BLOOD SPECIMENOrdering Facility: [facility] Address: [address] [place] [address] Performed By: #### 5 7021-8 ####AMRITA LABORATORYCLIA [id number] [place] [address] [place] Nucleated RBC (Bld) [#/Vol] 10*3/uL Normal <0.01 [facility] Comment on above: Order Comment: Speci men Type: BLOOD SPECIMENOrdering Facility: [facility] Address: [address] [place] [address] Performed By: #### 5 7021-8 ####[facility] LABORATORYCLIA [id number] [place] [address] [place] Nucleated RBC/100 WBC (Bld) [Ratio] 0.0 /100 WBC Normal [facility] Comment on above: Order Comment: Speci men Type: BLOOD SPECIMENOrdering Facility: [facility] Address: [address] [place] [address] Performed By: #### 5 7021-8 ####[facility] LABORATORYCLIA [id number] [place] [address] [place] Platelet mean volume (Bld) [Entitic vol] 10.8 fL Normal 9.0-12.7 [facility] Comment on above: Order Comment: Speci men Type: BLOOD SPECIMENOrdering Facility: [facility] Address: [address] [place] [address] Performed By: #### 5 7021-8 ####AMRITA LABORATORYCLIA [id number] [place] [id number] [place] Platelets (Bld) [#/Vol] 187 10*3/uL Normal 150-400 [facility] Comment on above: Order Comment: Speci men Type: BLOOD SPECIMENOrdering Facility: [facility] Address: [address] [place] [address] Performed By: #### 5 7021-8 ####[facility] LABORATORYCLIA [id number] [place] [address] [place] RBC (Bld) [#/Vol] 4.06 10*6/uL Low 4.20-6.00 [facility] Comment on above: Order Comment: Speci men Type: BLOOD SPECIMENOrdering Facility: [facility] Address: [address] [place] [address] Performed By: #### 5 7021-8 ####AMRITA LABORATORYCLIA [id number] [place] [address] [place] WBC (Bld) [#/Vol] 6.59 10*3/uL Normal 3.70-11.00 [facility] Comment on above: Order Comment: Speci men Type: BLOOD SPECIMENOrdering Facility: [facility] Address: [address] [place] [address] Performed By: #### 5 7021-8 ####[facility] LABORATORYCLIA [id number] [address] CNDSon 06-23-2024 CNDS HNO ID: [id number] Author: LASHONDA DELGADO MD Service: Colorectal Author [...] Your Medications These medications were sent to [facility] [place] [address] - [address] [facility] - [phone] [place] [address] methocarbamol 500 mg tablet Future Appointments: Future Appointments Date Time Provider Department Center 07/05/2024 10:40 AM 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 APRN.MICROPALEONTOLOGIST [id number] [facility] You will receive a phone call from our clinic nurse to check in on you in 5-7 days from discharge before your follow up appointment. Signed by Physician: Lashonda Delgado MD Normal [facility] Magnesium SerPl-mCncon 06-23 Magnesium [Mass/Vol] 2.1 mg/dL Normal 1.7-2.3 [facility] Comment on above: Order Comment: Speci men Type: BLOOD SPECIMENOrdering Facility: [facility] Address: [address] [place] [address] Performed By: #### 2 4321-2, 96227-0, 2777-1 ####[facility] LABORATORYCLIA [id number] [place] [address] [place] Phosphate SerPl-mCncon 06-23 Phosphate [Mass/Vol] 3.2 mg/dL Normal 2.7-4.8 [facility] Comment on above: Order Comment: Speci men Type: BLOOD SPECIMENOrdering Facility: [facility] Address: [address] [place] [address] Performed By: #### 2 4321-2, , 2776-05 ####AMRITA LABORATORYCLIA [id number] [place] [address] [place] Basic metabolic 2000 panelon 06-22-2024 Anion gap [Moles/Vol] 9 mmol/L Normal 8-15 [facility] Comment on above: Order Comment: Speci men Type: BLOOD SPECIMENOrdering Facility: [facility] Address: [address] [place], [place] [address] Performed By: #### 2 4321-2, 2776-05, ####AMRITA LABORATORYCLIA [id number] [place] [id number] [place] Calcium [Mass/Vol] 8.9 mg/dL Normal 8.5-10.2 [facility] Comment on above: Order Comment: Speci men Type: BLOOD SPECIMENOrdering Facility: [facility] Address: [address] [place], [place] [address] Performed By: #### 2 4321-2, 2776-05, ####AMR[facility] LABORATORYCLIA [id number] [place] [id number] [place] Chloride [Moles/Vol] 103 mmol/L Normal 98-107 [facility] Comment on above: Order Comment: Speci men Type: BLOOD SPECIMENOrdering Facility: [facility] Address: [address] [place], [place] [address] Performed By: #### 2 4321-2, 2776-05, ####AMRITA LABORATORYCLIA [id number] [place] [address] [place] CO2 [Moles/Vol] 24 mmol/L Normal 22-30 [facility] Comment on above: Order Comment: Speci men Type: BLOOD SPECIMENOrdering Facility: [facility] Address: [address] [place] [address] Performed By: #### 2 4321-2, 2777- ####HAZ[facility] LABORATORYCLIA [id number] [place] [address] [place] Creatinine [Mass/Vol] 0.93 mg/dL Normal 0.73-1.22 [facility] Comment on above: Order Comment: Ara powers Type: BLOOD SPECIMENOrdering Facility: [facility] Address: [address] [place] [address] Performed By: #### 2 4321-2, 2776-05, ####HAZ[facility] LABORATORYCLIA [id number] [place] [address] [place] Creatinine and Glomerular filtration rate.predicted panel (S/P/Bld) 98 mL/min/1.73m??? Normal >=60 [facility] Comment on above: Order Comment: Ara powers Type: BLOOD SPECIMENOrdering Facility: [facility] Address: [address] [place] [address] Result Comment: Dee mated Glomerular Filtration Rate [...] GFR. Performed By: #### 2 4321-2, 7, ####HAZARD LABORATORYCLIA [id number] [place] [address] [place] Glucose [Mass/Vol] 107 mg/dL High 74-99 [facility] Comment on above: Order Comment: Ara powers Type: BLOOD SPECIMENOrdering Facility: [facility] Address: [address] [place] [address] Result Comment: The [place] Diabetes Association (ADA) provides guidance for cutoff [...] Standards of Medical Care in Diabetes 2016, [place] [employer]. Diabetes Care. 2016.39(Suppl 1). Performed By: #### 2 4321-2, 2776-05, ####HAZARD LABORATORYCLIA [id number] [place] [id number] [place] Potassium [Moles/Vol] 4.6 mmol/L Normal 3.7-5.1 [facility] Comment on above: Order Comment: Ara powers Type: BLOOD SPECIMENOrdering Facility: [facility] Address: [address] [place] [address] Performed By: #### 2 4321-2, 2776-05, ####HAZARD LABORATORYCLIA [id number] [place] [id number] [place] Sodium [Moles/Vol] 136 mmol/L Normal 136-144 [facility] Comment on above: Order Comment: Ara powers Type: BLOOD SPECIMENOrdering Facility: [facility] Address: [address] [place] [address] Performed By: #### 2 4321-2, 2776-05, ####HAZARD LABORATORYCLIA [id number] [place] [id number] [place] Urea nitrogen [Mass/Vol] 13 mg/dL Normal 9-24 [facility] Comment on above: Order Comment: Ara powers Type: BLOOD SPECIMENOrdering Facility: [facility] Address: [address] [place] [address] Performed By: #### 2 4321-2, 2776-05, ####HAZ[facility] LABORATORYCLIA [id number] [place] [id number] [place] CBC W Auto Differential pane l (Bld)on 06-22-2024 Basophils (Bld) [#/Vol] 0.03 10*3/uL Normal <0.11 [facility] Comment on above: Order Comment: Speci men Type: BLOOD SPECIMENOrdering Facility: [facility] Address: [address] [place] [address] Performed By: #### 5 7021-8 ####AMRITA LABORATORYCLIA [id number] [address] [place] Basophils/100 WBC (Bld) 0.3 % Normal [facility] Comment on above: Order Comment: Speci men Type: BLOOD SPECIMENOrdering Facility: [facility] Address: [address] [place] [address] Performed By: #### 5 7021-8 ####[facility] LABORATORYCLIA [id number] [place] [address] [place] Differential cell count method Nom (Bld) Auto Normal [facility] Comment on above: Order Comment: Speci men Type: BLOOD SPECIMENOrdering Facility: [facility] Address: [address] [place] [address] Performed By: #### 5 7021-8 ####AMRITA LABORATORYCLIA [id number] [place] [address] [place] Eosinophils (Bld) [#/Vol] 0.12 10*3/uL Normal <0.46 [facility] Comment on above: Order Comment: Speci men Type: BLOOD SPECIMENOrdering Facility: [facility] Address: [address] [place] [address] Performed By: #### 5 7021-8 ####AMR[facility] LABORATORYCLIA [id number] [address] [place] Eosinophils/100 WBC (Bld) 1.4 % Normal [facility] Comment on above: Order Comment: Speci men Type: BLOOD SPECIMENOrdering Facility: [facility] Address: [address] [place] [address] Performed By: #### 5 7021-8 ####[facility] LABORATORYCLIA [id number] [address] [place] Erythrocyte distribution width (RBC) [Ratio] 14.6 % Normal 11.5-15.0 [facility] Comment on above: Order Comment: Speci men Type: BLOOD SPECIMENOrdering Facility: [facility] Address: [address] [place] [address] Performed By: #### 5 7021-8 ####AMR[facility] LABORATORYCLIA [id number] [place] [id number] [place] Hematocrit (Bld) [Volume fraction] 40.4 % Normal 39.0-51.0 [facility] Comment on above: Order Comment: Speci men Type: BLOOD SPECIMENOrdering Facility: [facility] Address: [address] [place] [address] Performed By: #### 5 7021-8 ####AMR[facility] LABORATORYCLIA [id number] [place] [address] [place] Hemoglobin (Bld) [Mass/Vol] 12.8 g/dL Low 13.0-17.0 [facility] Comment on above: Order Comment: Speci men Type: BLOOD SPECIMENOrdering Facility: [facility] Address: [address] [place] [address] Performed By: #### 5 7021-8 ####AMR[facility] LABORATORYCLIA [id number] [place] [address] [place] Immature granulocytes (Bld) [#/Vol] 0.05 10*3/uL Normal <0.10 [facility] Comment on above: Order Comment: Speci men Type: BLOOD SPECIMENOrdering Facility: [facility] Address: [address] [place] [address] Performed By: #### 5 7021-8 ####AMRITA LABORATORYCLIA [id number] [place] [id number] [place] Immature granulocytes/100 WBC (Bld) 0.6 % Normal [facility] Comment on above: Order Comment: Speci men Type: BLOOD SPECIMENOrdering Facility: [facility] Address: [address] [place] [address] Performed By: #### 5 7021-8 ####[facility] LABORATORYCLIA [id number] [place] [address] [place] Lymphocytes (Bld) [#/Vol] 1.14 10*3/uL Normal 1.00-4.00 [facility] Comment on above: Order Comment: Speci men Type: BLOOD SPECIMENOrdering Facility: [facility] Address: [address] [place] [address] Performed By: #### 5 7021-8 ####[facility] LABORATORYCLIA [id number] [place] [address] [place] Lymphocytes/100 WBC (Bld) 13.1 % Normal [facility] Comment on above: Order Comment: Speci men Type: BLOOD SPECIMENOrdering Facility: [facility] Address: [address] [place] [address] Performed By: #### 5 7021-8 ####[facility] LABORATORYCLIA [id number] [address] [place] MCH (RBC) [Entitic mass] 29.5 pg Normal 26.0-34.0 [facility] Comment on above: Order Comment: Speci men Type: BLOOD SPECIMENOrdering Facility: [facility] Address: [address] [place] [address] Performed By: #### 5 7021-8 ####[facility] LABORATORYCLIA [id number] [address] [place] MCHC (RBC) [Mass/Vol] 31.7 g/dL Normal 30.5-36.0 [facility] Comment on above: Order Comment: Speci men Type: BLOOD SPECIMENOrdering Facility: [facility] Address: [address] [place] [address] Performed By: #### 5 7021-8 ####AMRITA LABORATORYCLIA [id number] [address] [place] MCV (RBC) [Entitic vol] 93.1 fL Normal 80.0-100.0 [facility] Comment on above: Order Comment: Speci men Type: BLOOD SPECIMENOrdering Facility: [facility] Address: [address] [place] [address] Performed By: #### 5 7021-8 ####[facility] LABORATORYCLIA [id number] [place] [id number] [place] Monocytes (Bld) [#/Vol] 1.05 10*3/uL High <0.87 [facility] Comment on above: Order Comment: Speci men Type: BLOOD SPECIMENOrdering Facility: [facility] Address: [address] [place] [address] Performed By: #### 5 7021-8 ####AMRITA LABORATORYCLIA [id number] [place] [id number] [place] Monocytes/100 WBC (Bld) 12.1 % Normal [facility] Comment on above: Order Comment: Speci men Type: BLOOD SPECIMENOrdering Facility: [facility] Address: [address] [place] [address] Performed By: #### 5 7021-8 ####AMRITA LABORATORYCLIA [id number] [place] [address] [place] Neutrophils (Bld) [#/Vol] 6.31 10*3/uL Normal 1.45-7.50 [facility] Comment on above: Order Comment: Speci men Type: BLOOD SPECIMENOrdering Facility: [facility] Address: [address] [place] [address] Performed By: #### 5 7021-8 ####AMRITA LABORATORYCLIA [id number] [place] [address] [place] Neutrophils/100 WBC (Bld) 72.5 % Normal [facility] Comment on above: Order Comment: Speci men Type: BLOOD SPECIMENOrdering Facility: [facility] Address: [address] [place] [address] Performed By: #### 5 7021-8 ####[facility] LABORATORYCLIA [id number] [place] [address] [place] Nucleated RBC (Bld) [#/Vol] 10*3/uL Normal <0.01 [facility] Comment on above: Order Comment: Speci men Type: BLOOD SPECIMENOrdering Facility: [facility] Address: [address] [place] [address] Performed By: #### 5 7021-8 ####AMRITA LABORATORYCLIA [id number] [place] [address] [place] Nucleated RBC/100 WBC (Bld) [Ratio] 0.0 /100 WBC Normal [facility] Comment on above: Order Comment: Speci men Type: BLOOD SPECIMENOrdering Facility: [facility] Address: [address] [place] [address] Performed By: #### 5 7021-8 ####[facility] LABORATORYCLIA [id number] [place] [address] [place] Platelet mean volume (Bld) [Entitic vol] 10.7 fL Normal 9.0-12.7 [facility] Comment on above: Order Comment: Speci men Type: BLOOD SPECIMENOrdering Facility: [facility] Address: [address] [place] [address] Performed By: #### 5 7021-8 ####[facility] LABORATORYCLIA [id number] [place] [address] [place] Platelets (Bld) [#/Vol] 192 10*3/uL Normal 150-400 [facility] Comment on above: Order Comment: Speci men Type: BLOOD SPECIMENOrdering Facility: [facility] Address: [address] [place] [address] Performed By: #### 5 7021-8 ####[facility] LABORATORYCLIA [id number] [place] [address] [place] RBC (Bld) [#/Vol] 4.34 10*6/uL Normal 4.20-6.00 [facility] Comment on above: Order Comment: Speci men Type: BLOOD SPECIMENOrdering Facility: [facility] Address: [address] [place] [address] Performed By: #### 5 7021-8 ####HAZARD LABORATORYCLIA [id number] [place] [address] [place] WBC (Bld) [#/Vol] 8.70 10*3/uL Normal 3.70-11.00 [facility] Comment on above: Order Comment: Speci men Type: BLOOD SPECIMENOrdering Facility: [facility] Address: [address] [place], [place] [address] Performed By: #### 5 7021-8 ####AMRITA LABORATORYCLIA [id number] [place] [address] [facility] Magnesium SerPl-mCncon 06-22 Magnesium [Mass/Vol] 2.1 mg/dL Normal 1.7-2.3 [facility] Comment on above: Order Comment: Speci men Type: BLOOD SPECIMENOrdering Facility: [facility] Address: [address] [place] [address] Performed By: #### 2 4321-2, 2777-1, 16465-9 ####AMRITA LABORATORYCLIA [id number] [place] [address] [place] Phosphate SerPl-mCncon 06-22 Phosphate [Mass/Vol] 3.8 mg/dL Normal 2.7-4.8 [facility] Comment on above: Order Comment: Speci men Type: BLOOD SPECIMENOrdering Facility: [facility] Address: [address] [place], [place] [address] Performed By: #### 2 4321-2, 2777-1, ####AMRITA LABORATORYCLIA [id number] [place] [address] [place] ANES POSTPROC EVALon 025 ANES POSTPROC EVAL HNO ID: [id number] Author: OLGA LIDIA WHITEHEAD MD Service: Anesthesiology [...] June 21, 2024 TIME: 5:30 PM CSN: [id number] [facility] ANES PRE-OPon 06-21-2024 ANES PRE-OP HNO ID: [id number] Author: YU BERRIOS MD Service: Anesthesiology Author Type: Anesthesiologist Type: Anesthesia Preprocedure Evaluation Filed: 06/21/2024 15:44 Note Text: ANESTHESIOLOGY DAY OF SURGERY NOTE : 1970 Procedure Information Date/Time: 06/21/24 1500 Procedure: EXPLORATORY LAPAROTOMY (Abdomen) Location: OR07 / OR Surgeons: Donis Cairas MD Estimated body mass index is 37.31 [...] and consent discussed: yes. Patient / Responsible [employer] agrees to proceed: yes Patient / Surrogate [...] June 21, 2024 TIME: 3:43 PM CSN: [id number] Normal [facility] CBC panel Auto (Bld)on 06-21 Erythrocyte distribution width (RBC) [Ratio] 14.7 % Normal 11.5-15.0 [facility] Comment on above: Order Comment: Speci men Type: BLOOD SPECIMENOrdering Facility: [facility] Address: [address] [place] [address] Performed By: #### 5 8410-2 ####HAZARD LABORATORYCLIA [id number] [place] [address] [place] Hematocrit (Bld) [Volume fraction] 45.2 % Normal 39.0-51.0 [facility] Comment on above: Order Comment: Speci men Type: BLOOD SPECIMENOrdering Facility: [facility] Address: [address] [place] [address] Performed By: #### 5 8410-2 ####HAZARD LABORATORYCLIA [id number] [place] [address] [place] Hemoglobin (Bld) [Mass/Vol] 14.3 g/dL Normal 13.0-17.0 [facility] Comment on above: Order Comment: Speci men Type: BLOOD SPECIMENOrdering Facility: [facility] Address: [address] [place] [address] Performed By: #### 5 8410-2 ####HAZARD LABORATORYCLIA [id number] [address] STATES [facility] MCH (RBC) [Entitic mass] 29.4 pg Normal 26.0-34.0 [facility] Comment on above: Order Comment: Speci men Type: BLOOD SPECIMENOrdering Facility: [facility] Address: [address] [place] [address] Performed By: #### 5 8410-2 ####AMRITA LABORATORYCLIA [id number] [place] [address] [place] MCHC (RBC) [Mass/Vol] 31.6 g/dL Normal 30.5-36.0 [facility] Comment on above: Order Comment: Speci men Type: BLOOD SPECIMENOrdering Facility: [facility] Address: [address] [place] [address] Performed By: #### 5 8410-2 ####AMRITA LABORATORYIA [id number] [place] [address] [place] MCV (RBC) [Entitic vol] 93.0 fL Normal 80.0-100.0 [facility] Comment on above: Order Comment: Speci men Type: BLOOD SPECIMENOrdering Facility: [facility] Address: [address] [place] [address] Performed By: #### 5 8410-2 ####AMRITA LABORATORYCLIA [id number] [address] [place] Nucleated RBC (Bld) [#/Vol] 10*3/uL Normal <0.01 [facility] Comment on above: Order Comment: Speci men Type: BLOOD SPECIMENOrdering Facility: [facility] Address: [address] [place] [address] Performed By: #### 5 8410-2 ####[facility] LABORATORYCLIA [id number] [address] [place] Platelet mean volume (Bld) [Entitic vol] 11.0 fL Normal 9.0-12.7 [facility] Comment on above: Order Comment: Speci men Type: BLOOD SPECIMENOrdering Facility: [facility] Address: [address] [place] [address] Performed By: #### 5 8410-2 ####HAZARD LABORATORYCLIA [id number] [place] [id number] [facility] OF [place] Platelets (Bld) [#/Vol] 222 10*3/uL Normal 150-400 [facility] Comment on above: Order Comment: Speci men Type: BLOOD SPECIMENOrdering Facility: [facility] Address: [address] [place] [address] Performed By: #### 5 8410-2 ####[facility] LABORATORYCLIA [id number] [place] [address] [place] RBC (Bld) [#/Vol] 4.86 10*6/uL Normal 4.20-6.00 [facility] Comment on above: Order Comment: Speci men Type: BLOOD SPECIMENOrdering Facility: [facility] Address: [address] [place] [address] Performed By: #### 5 8410-2 ####HAZARD LABORATORYCLIA [id number] [place] [address] [facility] OF [place] WBC (Bld) [#/Vol] 7.87 10*3/uL Normal 3.70-11.00 [facility] Comment on above: Order Comment: Speci men Type: BLOOD SPECIMENOrdering Facility: [facility] Address: [address] [place] [address] Performed By: #### 5 8410-2 ####HAZARD LABORATORYCLIA [id number] [place] [address] [facility] [place] CNPNazanin 06-21-2024 CNPN Telephone ([facility]) PIPER RODRÍGUEZ ([id number]) 1970 Date Time Provider Department 06/21/24 DONIS CARIAS [facility] During your visit today, we recorded the [...] for his appointment tomorrow vs going to [facility]. Ultimately, he thinks he will go to [facility]. Allergies As of Date: 06/21/2024 (No [...] Status:Closed by JOCELYN CANTRELL on 06/21/24 Normal [facility] Comprehensive metabolic 2000 panelon 06-21-2024 Albumin [Mass/Vol] 4.2 g/dL Normal 3.9-4.9 [facility] Comment on above: Order Comment: Speci men Type: BLOOD SPECIMENOrdering Facility: [facility] Address: [address] [place] [address] Performed By: #### 1 9123-9, 41435-6 ####HAZARD LABORATORYCLIA [id number] [place] [address] [place] ALP [Catalytic activity/Vol] 72 U/L Normal 38-113 [facility] Comment on above: Order Comment: Speci men Type: BLOOD SPECIMENOrdering Facility: [facility] Address: [address] [place] [address] Performed By: #### 1 0923-9, 10630-0 ####HAZARD LABORATORYCLIA [id number] [place] [address] [place] ALT [Catalytic activity/Vol] 91 U/L High 10-54 [facility] Comment on above: Order Comment: Speci men Type: BLOOD SPECIMENOrdering Facility: [facility] Address: [address] [place] [address] Performed By: #### 1 5323-9, 23324-0 ####HAZARD LABORATORYCLIA [id number] [place] [address] [place] Anion gap [Moles/Vol] 11 mmol/L Normal 8-15 [facility] Comment on above: Order Comment: Speci men Type: BLOOD SPECIMENOrdering Facility: [facility] Address: [address] [place] [address] Performed By: #### 1 9123-9, 49149-2 ####AMRITA LABORATORYCLIA [id number] [place] [id number] [place] AST [Catalytic activity/Vol] 58 U/L High 14-40 [facility] Comment on above: Order Comment: Speci men Type: BLOOD SPECIMENOrdering Facility: [facility] Address: [address] [place] [address] Performed By: #### 1 23-9, 73578-4 ####AMRITA LABORATORYCLIA [id number] [place] [address] [place] Bilirubin [Mass/Vol] 0.3 mg/dL Normal 0.2-1.3 [facility] Comment on above: Order Comment: Speci men Type: BLOOD SPECIMENOrdering Facility: [facility] Address: [address] [place] [address] Performed By: #### 1 23-9, ####AMRITA LABORATORYCLIA [id number] [place] [address] [place] Calcium [Mass/Vol] 9.6 mg/dL Normal 8.5-10.2 [facility] Comment on above: Order Comment: Speci men Type: BLOOD SPECIMENOrdering Facility: [facility] Address: [address] [place] [address] Performed By: #### 1 23-9, ####AMRITA LABORATORYCLIA [id number] [place] [address] [place] Chloride [Moles/Vol] 99 mmol/L Normal 98-107 [facility] Comment on above: Order Comment: Speci men Type: BLOOD SPECIMENOrdering Facility: [facility] Address: [address] [place] [address] Performed By: #### 1 23-9, ####AMRITA LABORATORYCLIA [id number] [place] [id number] [place] CO2 [Moles/Vol] 28 mmol/L Normal 22-30 [facility] Comment on above: Order Comment: Speci men Type: BLOOD SPECIMENOrdering Facility: [facility] Address: [address] [place] [address] Performed By: #### 1 9123-9, 88158-6 ####[facility] LABORATORYCLIA [id number] [place] [address] [place] Creatinine [Mass/Vol] 0.99 mg/dL Normal 0.73-1.22 [facility] Comment on above: Order Comment: Ara powers Type: BLOOD SPECIMENOrdering Facility: [facility] Address: [address] [place] [address] Performed By: #### 1 9123-9, 57335-7 ####[facility] LABORATORYCLIA [id number] [place] [address] [place] Creatinine and Glomerular filtration rate.predicted panel (S/P/Bld) 91 mL/min/1.73m??? Normal >=60 [facility] Comment on above: Order Comment: Ara powers Type: BLOOD SPECIMENOrdering Facility: [facility] Address: [address] [place] [address] Result Comment: Dee mated Glomerular Filtration Rate [...] actual GFR. Performed By: #### 1 9123-9, 29093-6 ####AMRITA LABORATORYCLIA [id number] [place] [address] [place] Glucose [Mass/Vol] 102 mg/dL High 74-99 [facility] Comment on above: Order Comment: Ara powers Type: BLOOD SPECIMENOrdering Facility: [facility] Address: [address] [place] [address] Result Comment: The [place] [employer] (ADA) provides guidance for cutoff [...] Standards of Medical Care in Diabetes 2016, [place] [employer]. Diabetes Care. 2016.39(Suppl 1). Performed By: #### 1 9123-9, ####AMRITA LABORATORYCLIA [id number] [place] [id number] [place] Potassium [Moles/Vol] 4.3 mmol/L Normal 3.7-5.1 [facility] Comment on above: Order Comment: Speci men Type: BLOOD SPECIMENOrdering Facility: [facility] Address: [address] [place] [address] Performed By: #### 1 9123-9, ####AMRITA LABORATORYCLIA [id number] [place] [id number] [place] Protein [Mass/Vol] 8.0 g/dL Normal 6.3-8.0 [facility] Comment on above: Order Comment: Speci men Type: BLOOD SPECIMENOrdering Facility: [facility] Address: [address] [place] [address] Performed By: #### 1 9123-9, ####AMRITA LABORATORYCLIA [id number] [place] [id number] [place] Sodium [Moles/Vol] 138 mmol/L Normal 136-144 [facility] Comment on above: Order Comment: Speci men Type: BLOOD SPECIMENOrdering Facility: [facility] Address: [address] [place] [address] Performed By: #### 1 9123-9, ####[facility] LABORATORYCLIA [id number] [place] [address] [place] Urea nitrogen [Mass/Vol] 14 mg/dL Normal 9-24 [facility] Comment on above: Order Comment: Speci men Type: BLOOD SPECIMENOrdering Facility: [facility] Address: [address] [place] [address] Performed By: #### 1 9123-9, 79036-1 ####HAZARD LABORATORYCLIA [id number] [place] [address] [facility] ED NOTEon 06-21-2024 ED NOTE HNO ID: [id number] Author: JOSÉ MIGUEL LARA RN Service: ? Author Type: Registered Nurse Type: ED Notes Filed: 06/21/2024 13:48 Note Text: Bed: 55-ED Expected date: Expected time: Means of arrival: Comments: triage Normal [facility] ED PROV NOTEon 06-21-2024 ED PROV NOTE HNO ID: [id number] Author: GINO ANGEL MD Service: Emergency Medicine [...] on June [address] Carias at [facility]. States had been doing well. States that yesterday the wound opened minimally. He presented to [facility] for evaluation. States the physician said that [...] at bed (more content not included)... Normal [facility] ED Triage Noteon 06-21-2024 ED Triage Note HNO ID: [id number] Author: ETHAN DUMONT DO Service: Emergency Medicine [...] well as MDM SIGNATURE: Ethan Dumont DO [facility] EKGon 06-21-2024 Electrocardiogram Ventricular Rate : 4 7 BPM Atrial Rate : 48 BPM P-R Interval : 173 ms QRS Duration : 105 ms Q-T Interval : 447 ms QTC Calculation(Bazett) : 396 ms Calculated P [place] : 44 degrees Calculated R [place] : 40 degrees Calculated T [place] : 58 degrees Sinus bradycardia Otherwise Normal ECG Confirmed by MD ANGEL JAMES ([id number]) on 06/21/2024 2:14:56 PM NAME : PIPER RODRÍGUEZ PID : [id number] : 1970 Gender : Male Race : [...] Referred By : , Acquired by : [id number], Normal [facility] HISTORY PHYSICALon HISTORY PHYSICAL HNO ID: [id number] Author: MAIKEL JUSTICE MD Service: Colorectal Author [...] contents. They were worried so presented to [facility]. Pt's showed me a photo of [...] concerns and was told to present to [facility] for further evaluation. Per pt has [...] DATE: June 21, 2024 TIME: 2:56 PM [facility] Magnesium SerPl-mCncon 06-21 Magnesium [Mass/Vol] 2.3 mg/dL Normal 1.7-2.3 [facility] Comment on above: Order Comment: Speci men Type: BLOOD SPECIMENOrdering Facility: [facility] Address: [address] [place] [address] Performed By: #### 1 9123-9, 22299-3 ####HAZARD LABORATORYCLIA [id number] [address] OF [facility] NURSING PROGon 06-21-2024 NURSING PROG HNO ID: [id number] Author: OLYA SIEGEL RN Service: Nursing Author Type: Registered Nurse Type: Nursing Progress Note Filed: 06/21/2024 19:56 Note Text: Transfer Note: PATIENT NAME: Piper Rodríguez Patient Location: [place] [address] [address] Room: [place] [address] Patient transferred into room/unit [facility] in stable condition. Actions taken: Room oriented, call light in reach, family at beside. [facility] OPERATIVE NOon 06-21-2024 OPERATIVE NO HNO ID: [id number] Author: DONIS CARIAS MD Service: Colorectal Author Type: Physician Type: Operative Report Filed: 06/21/2024 17:12 Note Text: COLON AND RECTAL SURGERY OPERATIVE REPORT PATIENT NAME: Piper Rodríguez ADMISSION DATE: 06/21/2024 LOG ID: [id number] SURGERY/PROCEDURE DATE: 06/21/2024 INCISION/PROCEDURE START TIME: 4:08 PM INCISION CLOSE/PROCEDURE END TIME: 5:06 PM AGE: [age] year old SEX: male SURGEON(S)/PROCEDURALIST(S) AND INSTRUMENTATION SPECIALIST(S): Surgeons and Role: * Donis Carias MD [...] Surgery Division of Colon and Rectal Surgery [facility] 06-20-2024 [facility] Telephone ([facility]) PIPER RODRÍGUEZ ([id number]) 1970 M Date Time Provider Department 06/20/24 DONIS CARIAS [facility] During your visit today, we recorded the following information about you: Maura Casiano 06/20/2024 3:02 PM Signed Patient calling concerned about surgical incision. She states it has opened up. Asking to speak to nurse to find out if they should go to local ER CB# [phone] Jocelyn Cantrell RN 06/20/2024 3:17 PM Signed [...] Encounter Status:Closed by JOCELYN CANTRELL on 06/20/24 [facility] CNCOon 06-19-2024 CNCO Letter Text [facility] CNPNon 06-19-2024 CNPN Telephone ([facility]) PIPER RODRÍGUEZ ([id number]) 1970 M Date Time Provider Department 06/19/24 DONIS CARIAS [facility] During your visit today, we recorded the following information about you: Maura Casiano 06/19/2024 1:29 PM Signed Patient had surgery on 06/14/24. He is asking to speak to a nurse about his restrictions and what he can and cannot do # [phone] Jocelyn Cantrell RN 06/19/2024 1:48 PM Signed [...] Fully Assessed Reason for Visit: Patient Question [9627] Prescriptions as of 06/19/2024 - acetaminophen (TYLENOL) [...] Status:Closed by JOCELYN CANTRELL on 06/19/24 Normal [facility] Basic metabolic 2000 panelon 06-16-2024 Anion gap [Moles/Vol] 12 mmol/L Normal 8-15 [facility] Comment on above: Order Comment: Speci men Type: BLOOD SPECIMENOrdering Facility: [facility] Address: [address] [place] [address] Performed By: #### 2 4321-2 ####HAZARD LABORATORYCLIA [id number] [place] [address] [place] Calcium [Mass/Vol] 8.9 mg/dL Normal 8.5-10.2 [facility] Comment on above: Order Comment: Speci men Type: BLOOD SPECIMENOrdering Facility: [facility] Address: [address] [place] [address] Performed By: #### 2 4321-2 ####HAZARD LABORATORYCLIA [id number] [place] [address] [place] Chloride [Moles/Vol] 103 mmol/L Normal 98-107 [facility] Comment on above: Order Comment: Speci men Type: BLOOD SPECIMENOrdering Facility: [facility] Address: [address] [place] [address] Performed By: #### 2 4321-2 ####[facility] LABORATORYCLIA [id number] [place] [id number] [place] CO2 [Moles/Vol] 22 mmol/L Normal 22-30 [facility] Comment on above: Order Comment: Speci men Type: BLOOD SPECIMENOrdering Facility: [facility] Address: [address] [place] [address] Performed By: #### 2 4321-2 ####[facility] LABORATORYCLIA [id number] [place] [address] [place] Creatinine [Mass/Vol] 0.90 mg/dL Normal 0.73-1.22 [facility] Comment on above: Order Comment: Speci men Type: BLOOD SPECIMENOrdering Facility: [facility] Address: [address] [place] [address] Performed By: #### 2 4321-2 ####[facility] LABORATORYCLIA [id number] [place] [id number] [facility] [facility] Creatinine and Glomerular filtration rate.predicted panel (S/P/Bld) 102 mL/min/1.73m??? Normal >=60 [facility] Comment on above: Order Comment: Speci men Type: BLOOD SPECIMENOrdering Facility: [facility] Address: [address] [place] [address] Result Comment: Dee mated Glomerular Filtration Rate [...] Performed By: #### 2 4321-2 ####AMRITA LABORATORYCLIA [id number] [place] [id number] [place] Glucose [Mass/Vol] 162 mg/dL High 74-99 [facility] Comment on above: Order Comment: Ara powers Type: BLOOD SPECIMENOrdering Facility: [facility] Address: [address] [place] [address] Result Comment: The [place] [employer] (ADA) provides guidance for cutoff [...] Standards of Medical Care in Diabetes 2016, [place] [employer]. Diabetes Care. 2016.39(Suppl 1). Performed By: #### 2 4321-2 ####HAZARD LABORATORYCLIA [id number] [place] [address] [place] Potassium [Moles/Vol] 4.4 mmol/L Normal 3.7-5.1 [facility] Comment on above: Order Comment: Ara powers Type: BLOOD SPECIMENOrdering Facility: [facility] Address: [address] [place] [address] Performed By: #### 2 4321-2 ####[facility] LABORATORYCLIA [id number] [place] [id number] [place] Sodium [Moles/Vol] 137 mmol/L Normal 136-144 [facility] Comment on above: Order Comment: Williani men Type: BLOOD SPECIMENOrdering Facility: [facility] Address: [address] [place] [address] Performed By: #### 2 4321-2 ####HAZARD LABORATORYCLIA [id number] [place] [address] [place] Urea nitrogen [Mass/Vol] 10 mg/dL Normal 9-24 [facility] Comment on above: Order Comment: Speci men Type: BLOOD SPECIMENOrdering Facility: [facility] Address: [address] [place] [address] Performed By: #### 2 4321-2 ####[facility] LABORATORYCLIA [id number] [place] [id number] [place] CBC W Auto Differential pane l (Bld)on 06-16-2024 Basophils (Bld) [#/Vol] 0.04 10*3/uL Normal <0.11 [facility] Comment on above: Order Comment: Speci men Type: BLOOD SPECIMENOrdering Facility: [facility] Address: [address] [place] [address] Performed By: #### 5 7021-8 ####AMRITA LABORATORYCLIA [id number] [place] [address] [place] Basophils/100 WBC (Bld) 0.6 % Normal [facility] Comment on above: Order Comment: Speci men Type: BLOOD SPECIMENOrdering Facility: [facility] Address: [address] [place] [address] Performed By: #### 5 7021-8 ####AMRITA LABORATORYCLIA [id number] [place] [address] [place] Differential cell count method Nom (Bld) Auto Normal [facility] Comment on above: Order Comment: Speci men Type: BLOOD SPECIMENOrdering Facility: [facility] Address: [address] [place] [address] Performed By: #### 5 7021-8 ####AMRITA LABORATORYCLIA [id number] [place] [address] [place] Eosinophils (Bld) [#/Vol] 0.16 10*3/uL Normal <0.46 [facility] Comment on above: Order Comment: Speci men Type: BLOOD SPECIMENOrdering Facility: [facility] Address: [address] [place] [address] Performed By: #### 5 7021-8 ####AMRITA LABORATORYCLIA [id number] [place] [address] [place] Eosinophils/100 WBC (Bld) 2.4 % Normal [facility] Comment on above: Order Comment: Speci men Type: BLOOD SPECIMENOrdering Facility: [facility] Address: [address] [place] [address] Performed By: #### 5 7021-8 ####AMRITA LABORATORYCLIA [id number] [place] [address] [place] Erythrocyte distribution width (RBC) [Ratio] 15.6 % High 11.5-15.0 [facility] Comment on above: Order Comment: Speci men Type: BLOOD SPECIMENOrdering Facility: [facility] Address: [address] [place] [address] Performed By: #### 5 7021-8 ####AMRITA LABORATORYCLIA [id number] [place] [address] [place] Hematocrit (Bld) [Volume fraction] 44.0 % Normal 39.0-51.0 [facility] Comment on above: Order Comment: Speci men Type: BLOOD SPECIMENOrdering Facility: [facility] Address: [address] [place] [address] Performed By: #### 5 7021-8 ####AMRITA LABORATORYCLIA [id number] [place] [address] [place] Hemoglobin (Bld) [Mass/Vol] 13.8 g/dL Normal 13.0-17.0 [facility] Comment on above: Order Comment: Speci men Type: BLOOD SPECIMENOrdering Facility: [facility] Address: [address] [place] [address] Performed By: #### 5 7021-8 ####AMRITA LABORATORYCLIA [id number] [place] [id number] [place] Immature granulocytes (Bld) [#/Vol] 0.03 10*3/uL Normal <0.10 [facility] Comment on above: Order Comment: Speci men Type: BLOOD SPECIMENOrdering Facility: [facility] Address: [address] [place] [address] Performed By: #### 5 7021-8 ####AMRITA LABORATORYCLIA [id number] [place] [address] [place] Immature granulocytes/100 WBC (Bld) 0.5 % Normal [facility] Comment on above: Order Comment: Speci men Type: BLOOD SPECIMENOrdering Facility: [facility] Address: [address] [place] [address] Performed By: #### 5 7021-8 ####[facility] LABORATORYCLIA [id number] [place] [address] [place] Lymphocytes (Bld) [#/Vol] 1.23 10*3/uL Normal 1.00-4.00 [facility] Comment on above: Order Comment: Speci men Type: BLOOD SPECIMENOrdering Facility: [facility] Address: [address] [place] [address] Performed By: #### 5 7021-8 ####[facility] LABORATORYCLIA [id number] [address] [place] Lymphocytes/100 WBC (Bld) 18.8 % Normal [facility] Comment on above: Order Comment: Speci men Type: BLOOD SPECIMENOrdering Facility: [facility] Address: [address] [place] [address] Performed By: #### 5 7021-8 ####[facility] LABORATORYCLIA [id number] [place] [address] [place] MCH (RBC) [Entitic mass] 29.9 pg Normal 26.0-34.0 [facility] Comment on above: Order Comment: Speci men Type: BLOOD SPECIMENOrdering Facility: [facility] Address: [address] [place] [address] Performed By: #### 5 7021-8 ####[facility] LABORATORYCLIA [id number] [place] [address] [place] MCHC (RBC) [Mass/Vol] 31.4 g/dL Normal 30.5-36.0 [facility] Comment on above: Order Comment: Speci men Type: BLOOD SPECIMENOrdering Facility: [facility] Address: [address] [place] [address] Performed By: #### 5 7021-8 ####AMRITA LABORATORYCLIA [id number] [place] [id number] [place] MCV (RBC) [Entitic vol] 95.4 fL Normal 80.0-100.0 [facility] Comment on above: Order Comment: Speci men Type: BLOOD SPECIMENOrdering Facility: [facility] Address: [address] [place] [address] Performed By: #### 5 7021-8 ####AMRITA LABORATORYCLIA [id number] [place] [id number] [place] Monocytes (Bld) [#/Vol] 0.76 10*3/uL Normal <0.87 [facility] Comment on above: Order Comment: Speci men Type: BLOOD SPECIMENOrdering Facility: [facility] Address: [address] [place] [address] Performed By: #### 5 7021-8 ####AMRITA LABORATORYCLIA [id number] [place] [id number] [place] Monocytes/100 WBC (Bld) 11.6 % Normal [facility] Comment on above: Order Comment: Speci men Type: BLOOD SPECIMENOrdering Facility: [facility] Address: [address] [place] [address] Performed By: #### 5 7021-8 ####AMRITA LABORATORYCLIA [id number] [place] [address] [place] Neutrophils (Bld) [#/Vol] 4.32 10*3/uL Normal 1.45-7.50 [facility] Comment on above: Order Comment: Speci men Type: BLOOD SPECIMENOrdering Facility: [facility] Address: [address] [place] [address] Performed By: #### 5 7021-8 ####[facility] LABORATORYCLIA [id number] [place] [id number] [place] Neutrophils/100 WBC (Bld) 66.1 % Normal [facility] Comment on above: Order Comment: Speci men Type: BLOOD SPECIMENOrdering Facility: [facility] Address: [address] [place] [address] Performed By: #### 5 7021-8 ####HAZARD LABORATORYCLIA [id number] [place] [id number] [place] Nucleated RBC (Bld) [#/Vol] 10*3/uL Normal <0.01 [facility] Comment on above: Order Comment: Speci men Type: BLOOD SPECIMENOrdering Facility: [facility] Address: [address] [place] [address] Performed By: #### 5 7021-8 ####[facility] LABORATORYCLIA [id number] [place] [address] [place] Nucleated RBC/100 WBC (Bld) [Ratio] 0.0 /100 WBC Normal [facility] Comment on above: Order Comment: Speci men Type: BLOOD SPECIMENOrdering Facility: [facility] Address: [address] [place] [address] Performed By: #### 5 7021-8 ####[facility] LABORATORYCLIA [id number] [place] [address] [place] Platelet mean volume (Bld) [Entitic vol] 11.2 fL Normal 9.0-12.7 [facility] Comment on above: Order Comment: Speci men Type: BLOOD SPECIMENOrdering Facility: [facility] Address: [address] [place] [address] Performed By: #### 5 7021-8 ####HAZARD LABORATORYCLIA [id number] [place] [id number] [place] Platelets (Bld) [#/Vol] 191 10*3/uL Normal 150-400 [facility] Comment on above: Order Comment: Speci men Type: BLOOD SPECIMENOrdering Facility: [facility] Address: [address] [place] [address] Performed By: #### 5 7021-8 ####HAZARD LABORATORYCLIA [id number] [place] [id number] [place] RBC (Bld) [#/Vol] 4.61 10*6/uL Normal 4.20-6.00 [facility] Comment on above: Order Comment: Speci men Type: BLOOD SPECIMENOrdering Facility: [facility] Address: [address] [place] [address] Performed By: #### 5 7021-8 ####AMRITA LABORATORYCLIA [id number] [address] [place] WBC (Bld) [#/Vol] 6.54 10*3/uL Normal 3.70-11.00 [facility] Comment on above: Order Comment: Speci men Type: BLOOD SPECIMENOrdering Facility: [facility] Address: [address] [place] [address] Performed By: #### 5 7021-8 ####[facility] LABORATORYCLIA [id number] [place] [id number] [facility] CNDSon 06-16-2024 CNDS HNO ID: [id number] Author: DONIS CARIAS MD Service: Colorectal Author [...] which included preparing to see the patient, [id number] patient care, completing clinical documentation, obtaining and/or reviewing separately obtained history, performing a medically appropriate examination, and care coordination (not separately reported). SIGNATURE: 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 APRN.MICROPALEONTOLOGIST DATE: June 16, 2024 (more content not included)... Normal [facility] Basic metabolic 2000 panelon 06-15-2024 Anion gap [Moles/Vol] 13 mmol/L Normal 8-15 [facility] Comment on above: Order Comment: Speci men Type: BLOOD SPECIMENOrdering Facility: [facility] Address: [address] [place] [address] Performed By: #### 2 4321-2 ####HAZARD LABORATORYCLIA [id number] [place] [address] [place] Calcium [Mass/Vol] 8.9 mg/dL Normal 8.5-10.2 [facility] Comment on above: Order Comment: Speci men Type: BLOOD SPECIMENOrdering Facility: [facility] Address: [address] [place] [address] Performed By: #### 2 4321-2 ####HAZARD LABORATORYCLIA [id number] [place] [id number] [place] Chloride [Moles/Vol] 100 mmol/L Normal 98-107 [facility] Comment on above: Order Comment: Speci men Type: BLOOD SPECIMENOrdering Facility: [facility] Address: [address] [place] [address] Performed By: #### 2 4321-2 ####HAZARD LABORATORYCLIA [id number] [place] [id number] [place] CO2 [Moles/Vol] 21 mmol/L Low 22-30 [facility] Comment on above: Order Comment: Speci men Type: BLOOD SPECIMENOrdering Facility: [facility] Address: [address] [place] [address] Performed By: #### 2 4321-2 ####HAZARD LABORATORYCLIA [id number] [place] [address] [place] Creatinine [Mass/Vol] 1.25 mg/dL High 0.73-1.22 [facility] Comment on above: Order Comment: Speci men Type: BLOOD SPECIMENOrdering Facility: [facility] Address: [address] [place] [address] Performed By: #### 2 4321-2 ####HAZARD LABORATORYCLIA [id number] [place] [address] [place] Creatinine and Glomerular filtration rate.predicted panel (S/P/Bld) 69 mL/min/1.73m??? Normal >=60 [facility] Comment on above: Order Comment: Speci men Type: BLOOD SPECIMENOrdering Facility: [facility] Address: [address] [place] [address] Result Comment: Dee mated Glomerular Filtration Rate [...] Performed By: #### 2 4321-2 ####AMRITA LABORATORYCLIA [id number] [place] [id number] [place] Glucose [Mass/Vol] 105 mg/dL High 74-99 [facility] Comment on above: Order Comment: Speci men Type: BLOOD SPECIMENOrdering Facility: [facility] Address: [address] [place] [address] Result Comment: The [place] [employer] (ADA) provides guidance for cutoff [...] Standards of Medical Care in Diabetes 2016, [place] [employer]. Diabetes Care. 2016.39(Suppl 1). Performed By: #### 2 4321-2 ####AMRITA LABORATORYCLIA [id number] [place] [id number] [place] Potassium [Moles/Vol] 4.8 mmol/L Normal 3.7-5.1 [facility] Comment on above: Order Comment: Speci men Type: BLOOD SPECIMENOrdering Facility: [facility] Address: [address] [place] [id number] Performed By: #### 2 4321-2 ####[facility] LABORATORYCLIA [id number] [place] [id number] [place] Sodium [Moles/Vol] 134 mmol/L Low 136-144 [facility] Comment on above: Order Comment: Speci men Type: BLOOD SPECIMENOrdering Facility: [facility] Address: [address] [place] [address] Performed By: #### 2 4321-2 ####AMRITA LABORATORYCLIA [id number] [place] [id number] [place] [facility] Urea nitrogen [Mass/Vol] 19 mg/dL Normal 9-24 [facility] Comment on above: Order Comment: Speci men Type: BLOOD SPECIMENOrdering Facility: [facility] Address: [address] [place] [address] Performed By: #### 2 4321-2 ####AMRITA LABORATORYCLIA [id number] [place] [id number] [place] CBC W Auto Differential pane l (Bld)on 06-15-2024 Basophils (Bld) [#/Vol] 0.03 10*3/uL Normal <0.11 [facility] Comment on above: Order Comment: Speci men Type: BLOOD SPECIMENOrdering Facility: [facility] Address: [address] [place] [address] Performed By: #### 5 7021-8 ####AMRITA LABORATORYCLIA [id number] [place] [address] [place] Basophils/100 WBC (Bld) 0.3 % Normal [facility] Comment on above: Order Comment: Speci men Type: BLOOD SPECIMENOrdering Facility: [facility] Address: [address] [place] [address] Performed By: #### 5 7021-8 ####AMRITA LABORATORYCLIA [id number] [address] [place] Differential cell count method Nom (Bld) Auto Normal [facility] Comment on above: Order Comment: Speci men Type: BLOOD SPECIMENOrdering Facility: [facility] Address: [address] [place] [address] Performed By: #### 5 7021-8 ####AMRITA LABORATORYCLIA [id number] [place] [address] [place] Eosinophils (Bld) [#/Vol] 10*3/uL Normal <0.46 [facility] Comment on above: Order Comment: Speci men Type: BLOOD SPECIMENOrdering Facility: [facility] Address: [address] [place] [address] Performed By: #### 5 7021-8 ####AMRITA LABORATORYCLIA [id number] [address] [place] Eosinophils/100 WBC (Bld) 0.2 % Normal [facility] Comment on above: Order Comment: Speci men Type: BLOOD SPECIMENOrdering Facility: [facility] Address: [address] [place] [address] Performed By: #### 5 7021-8 ####AMRITA LABORATORYCLIA [id number] [address] [place] Erythrocyte distribution width (RBC) [Ratio] 15.5 % High 11.5-15.0 [facility] Comment on above: Order Comment: Speci men Type: BLOOD SPECIMENOrdering Facility: [facility] Address: [address] [place] [address] Performed By: #### 5 7021-8 ####AMRITA LABORATORYCLIA [id number] [address] [place] Hematocrit (Bld) [Volume fraction] 41.5 % Normal 39.0-51.0 [facility] Comment on above: Order Comment: Speci men Type: BLOOD SPECIMENOrdering Facility: [facility] Address: [address] [place] [address] Performed By: #### 5 7021-8 ####AMRITA LABORATORYCLIA [id number] [address] [place] Hemoglobin (Bld) [Mass/Vol] 13.8 g/dL Normal 13.0-17.0 [facility] Comment on above: Order Comment: Speci men Type: BLOOD SPECIMENOrdering Facility: [facility] Address: [address] [place] [address] Performed By: #### 5 7021-8 ####AMRITA LABORATORYCLIA [id number] [place] [address] [place] Immature granulocytes (Bld) [#/Vol] 0.06 10*3/uL Normal <0.10 [facility] Comment on above: Order Comment: Speci men Type: BLOOD SPECIMENOrdering Facility: [facility] Address: [address] [place] [address] Performed By: #### 5 7021-8 ####[facility] LABORATORYCLIA [id number] [address] Immature granulocytes/100 WBC (Bld) 0.6 % Normal [facility] Comment on above: Order Comment: Speci men Type: BLOOD SPECIMENOrdering Facility: [facility] Address: [address] [place] [address] Performed By: #### 5 7021-8 ####[facility] LABORATORYCLIA [id number] [address] Lymphocytes (Bld) [#/Vol] 1.01 10*3/uL Normal 1.00-4.00 [facility] Comment on above: Order Comment: Speci men Type: BLOOD SPECIMENOrdering Facility: [facility] Address: [address] [place] [address] Performed By: #### 5 7021-8 ####[facility] LABORATORYCLIA [id number] [address] Lymphocytes/100 WBC (Bld) 10.3 % Normal [facility] Comment on above: Order Comment: Speci men Type: BLOOD SPECIMENOrdering Facility: [facility] Address: [address] [place] [address] Performed By: #### 5 7021-8 ####AMRITA LABORATORYCLIA [id number] [address] [place] MCH (RBC) [Entitic mass] 30.6 pg Normal 26.0-34.0 [facility] Comment on above: Order Comment: Speci men Type: BLOOD SPECIMENOrdering Facility: [facility] Address: [address] [place] [address] Performed By: #### 5 7021-8 ####[facility] LABORATORYCLIA [id number] [place] [address] [place] MCHC (RBC) [Mass/Vol] 33.3 g/dL Normal 30.5-36.0 [facility] Comment on above: Order Comment: Speci men Type: BLOOD SPECIMENOrdering Facility: [facility] Address: [address] [place] [address] Performed By: #### 5 7021-8 ####AMRITA LABORATORYCLIA [id number] [place] [id number] [place] MCV (RBC) [Entitic vol] 92.0 fL Normal 80.0-100.0 [facility] Comment on above: Order Comment: Speci men Type: BLOOD SPECIMENOrdering Facility: [facility] Address: [address] [place] [address] Performed By: #### 5 7021-8 ####AMRITA LABORATORYCLIA [id number] [place] [address] [place] Monocytes (Bld) [#/Vol] 1.07 10*3/uL High <0.87 [facility] Comment on above: Order Comment: Speci men Type: BLOOD SPECIMENOrdering Facility: [facility] Address: [address] [place] [address] Performed By: #### 5 7021-8 ####AMRITA LABORATORYCLIA [id number] [place] [address] [place] Monocytes/100 WBC (Bld) 10.9 % Normal [facility] Comment on above: Order Comment: Speci men Type: BLOOD SPECIMENOrdering Facility: [facility] Address: [address] [place] [address] Performed By: #### 5 7021-8 ####AMRITA LABORATORYCLIA [id number] [place] [id number] [place] Neutrophils (Bld) [#/Vol] 7.59 10*3/uL High 1.45-7.50 [facility] Comment on above: Order Comment: Speci men Type: BLOOD SPECIMENOrdering Facility: [facility] Address: [address] [place] [address] Performed By: #### 5 7021-8 ####AMRITA LABORATORYCLIA [id number] [place] [id number] [place] Neutrophils/100 WBC (Bld) 77.7 % Normal [facility] Comment on above: Order Comment: Speci men Type: BLOOD SPECIMENOrdering Facility: [facility] Address: [address] [place] [address] Performed By: #### 5 7021-8 ####AMRITA LABORATORYCLIA [id number] [place] [id number] [place] Nucleated RBC (Bld) [#/Vol] 10*3/uL Normal <0.01 [facility] Comment on above: Order Comment: Speci men Type: BLOOD SPECIMENOrdering Facility: [facility] Address: [address] [place] [address] Performed By: #### 5 7021-8 ####[facility] LABORATORYCLIA [id number] [place] [address] [place] Nucleated RBC/100 WBC (Bld) [Ratio] 0.0 /100 WBC Normal [facility] Comment on above: Order Comment: Speci men Type: BLOOD SPECIMENOrdering Facility: [facility] Address: [address] [place] [address] Performed By: #### 5 7021-8 ####AMRITA LABORATORYCLIA [id number] [place] [address] [place] Platelet mean volume (Bld) [Entitic vol] 10.8 fL Normal 9.0-12.7 [facility] Comment on above: Order Comment: Speci men Type: BLOOD SPECIMENOrdering Facility: [facility] Address: [address] [place] [address] Performed By: #### 5 7021-8 ####[facility] LABORATORYCLIA [id number] [place] [id number] [place] Platelets (Bld) [#/Vol] 176 10*3/uL Normal 150-400 [facility] Comment on above: Order Comment: Speci men Type: BLOOD SPECIMENOrdering Facility: [facility] Address: [address] [place] [address] Performed By: #### 5 7021-8 ####AMRITA LABORATORYCLIA [id number] [place] [id number] [place] RBC (Bld) [#/Vol] 4.51 10*6/uL Normal 4.20-6.00 [facility] Comment on above: Order Comment: Speci men Type: BLOOD SPECIMENOrdering Facility: [facility] Address: [address] [place] [address] Performed By: #### 5 7021-8 ####[facility] LABORATORYCLIA [id number] [place] [id number] [facility] [place] WBC (Bld) [#/Vol] 9.78 10*3/uL Normal 3.70-11.00 [facility] Comment on above: Order Comment: Speci men Type: BLOOD SPECIMENOrdering Facility: [facility] Address: [address] [place] [address] Performed By: #### 5 7021-8 ####[facility]ENCLEVEL[facility] CLIN[facility] LABORATORYCLIA [id number] [place] [id number] [facility] NUTRITIONon 06-15-2024 NUTRITION HNO ID: [id number] Author: RADHIKA ARZATE RD Service: Nutrition Therapy [...] ARGELIA Zhang June 15, 2024 9:44 AM [facility] ANES POSTPROC EVALon 025 ANES POSTPROC EVAL HNO ID: [id number] Author: ILA MORTENSEN MD Service: Critical Care [...] June 14, 2024 TIME: 3:59 PM CSN: [id number] [facility] ANES PRE-OPon 06-14-2024 ANES PRE-OP HNO ID: [id number] Author: ILA MORTENSEN MD Service: Critical Care [...] and consent discussed: yes. Patient / Responsible [employer] agrees to proceed: yes Patient / Surrogate [...] June 14, 2024 TIME: 9:23 AM CSN: [id number] [facility] MISMATCH REPAIR PROTEINS BY IHCon 06-14-2024 AP BIOMARKER DISCLAIMER [facility] Comment on above: Order Comment: Speci men Type: TISSUE SPECIMENOrdering Facility: [facility] Address: [address] [place] [address], [place] [id number] Result Comment: Martin Jiménez Test (LDT) Disclaimer: Performance characteristics of immunohistochemical, immunofluorescent and chromogenic in-situ hybridization tests have been determined by the performing laboratory within [facility]???s Donnell Thorpe Pathology and Laboratory Medicine Department ([facility], [facility], [facility], [facility], [facility], [facility], or [facility]) in a manner consistent with CLIA requirements. One or more of these tests have not been cleared or approved by the FDA. [facility]M is regulated under CLIA as qualified to perform high-complexity testing. These tests are used for clinical purposes. They should not be regarded as investigational or for research. Positive and negative controls stain appropriately. Performed By: #### L [id number] ####[facility] LABCLIA [id number] [address] AP BLOCK ID A6 [facility] Comment on above: Order Comment: Speci gio Type: TISSUE SPECIMENOrdering Facility: [facility] Address: [address] [place] [address] Performed By: #### L [id number] ####[facility] LABCLIA [id number] [address] BIOMARKER INTERPRETATION COMMENT AND REFERENCE RANGE [facility] Comment on above: Order Comment: Ara powers Type: TISSUE SPECIMENOrdering Facility: [facility] Address: [address] [place] [address] [address]: In[address] expression of MMR [...] patients with metastatic carcinoma, Alana et al. ([facility] 2015;372:2502-00) reported that the clinical benefit of pembrolizumab, [...] questions about this result, please call the [facility] at [phone]. Performed By: #### L [id number] ####[facility] LABIA [id number] [address] BIOMARKER METHOD Immunohistochemistry was performed on formalin fixed paraffin-embedded tissue using the following clones: MLH1 (clone M1 mouse monoclonal); MSH2 ([id number] mouse monoclonal); and MSH6 (SP93 rabbit monoclonal); followed by ultrasensitive bright field detection (Optiview with amplification) from [[employer], [place]]. PMS2 (EP51 Rabbit monoclonal, [employer]); followed by ultrasensitive bright field detection ( Rosales Refine Polymer DAB Detection) from [[employer], [place], [place]]. [facility] Comment on above: Order Comment: Speci men Type: TISSUE SPECIMENOrdering Facility: [facility] Address: [address] [place] [address] Performed By: #### L [id number] ####[facility] LABIA [id number] [address] CASE NUMBER MMR [id number] [facility] Comment on above: Order Comment: Speci men Type: TISSUE SPECIMENOrdering Facility: [facility] Address: [address] [place] [address] Performed By: #### L [id number] ####[facility] LABCLIA [id number] [address] [place] FIXATIVE Formalin, 10% Neutra l Buffered [facility] Comment on above: Order Comment: Speci men Type: TISSUE SPECIMENOrdering Facility: [facility] Address: [address] [place] [address] Performed By: #### L [id number] ####[facility] LABCLIA [id number] [place] [address] [place] MLH1 IMMUNOHISTOCHEMICAL RESULTS Normal/Intact Nuclear Expression Normal [facility] Comment on above: Order Comment: Speci men Type: TISSUE SPECIMENOrdering Facility: [facility] Address: [address] [place], [place] [address] Performed By: #### L [id number] ####[facility] LABCLIA [id number] [place] [address] [place] MLH1 PROMOTER METHYLATION ASSAY No Normal [facility] Comment on above: Order Comment: Speci men Type: TISSUE SPECIMENOrdering Facility: [facility] Address: [address] [place] [address] Performed By: #### L [id number] ####[facility] LABCLIA [id number] [place] [address] [place] MMR INTERPRETATION Proficient (Microsat ellite Stable) Normal [facility] Comment on above: Order Comment: Speci men Type: TISSUE SPECIMENOrdering Facility: [facility] Address: [address] [place], [place] [address] Performed By: #### L [id number] ####[facility] LABCLIA [id number] [place] [address] [place] MSH2 IMMUNOHISTOCHEMICAL RESULTS Normal/Intact Nuclear Expression Normal [facility] Comment on above: Order Comment: Speci men Type: TISSUE SPECIMENOrdering Facility: [facility] Address: [address] [place] [address] Performed By: #### L [id number] ####[facility] LABCLIA [id number] [place] [address] [place] MSH6 IMMUNOHISTOCHEMICAL RESULTS Normal/Intact Nuclear Expression Normal [facility] Comment on above: Order Comment: Speci men Type: TISSUE SPECIMENOrdering Facility: [facility] Address: [address] [place], [place] [address] Performed By: #### L [id number] ####[facility] LABCLIA [id number] [address] PMS2 IMMUNOHISTOCHEMICAL RESULTS Normal/Intact Nuclear Expression Normal [facility] Comment on above: Order Comment: Speci men Type: TISSUE SPECIMENOrdering Facility: [facility] Address: [address] [place] [address] Performed By: #### L [id number] ####[facility] LABCLIA [id number] [address] [place] TUMOR TYPE MMR Primary Colorectal Adenocarcinoma Normal [facility] Comment on above: Order Comment: Speci men Type: TISSUE SPECIMENOrdering Facility: [facility] Address: [address] [place] [address] Performed By: #### L [id number] ####[facility] LABCLIA [id number] [address] [place] OPERATIVE NOon 06-14-2024 OPERATIVE NO HNO ID: [id number] Author: DONIS CARIAS MD Service: Colorectal Author Type: Physician Type: Operative Report Filed: 06/21/2024 15:52 Note Text: COLON AND RECTAL SURGERY OPERATIVE REPORT PATIENT NAME: Piper Rodríguez ADMISSION DATE: 06/14/2024 LOG ID: [id number] SURGERY/PROCEDURE DATE: 06/14/2024 INCISION/PROCEDURE START TIME: 9:17 AM INCISION CLOSE/PROCEDURE END TIME: 11:24 AM AGE: [age] year old SEX: male SURGEON(S)/PROCEDURALIST(S) AND INSTRUMENTATION SPECIALIST(S): Surgeons and Role: * Donis Carias MD [...] inserted into the bowel to create a rnnk-cm-hgoo functional end-to-end anastomosis. The bowel was lined [...] anastomosis was inspected (more content not included)... [facility] SURGICAL PATHOLOGYon 025 BLOCK FOR ADDITIONAL BIOMARKERS/MOLECULAR STUDIES A6 [facility] Comment on above: Order Comment: Speci men Type: TISSUE SPECIMENOrdering Facility: [facility] Address: [address] [place] [address] Performed By: #### S ####[facility] LABCLIA [id number] [address] OF [facility] LABORATORYCLIA [id number] [address] [place] CASE REPORT [facility] Comment on above: Order Comment: Speci men Type: TISSUE SPECIMENOrdering Facility: [facility] Address: [address] [place] [address] Result Comment: Surg [facility] Pathology Report Case: [id number] Authorizing Provider: Donis Carias MD Collected: 06/14/2024 10:43 AM Ordering Location: [facility] Received: 06/14/2024 11:18 AM Operating Room Pathologist: Samir De La Cruz MD Specimen: Colon, Resection, right colon Performed By: #### S ####[facility] LABCLIA [id number] [address] LABORATORYCLIA [id number] [address] CLINICAL HISTORY Normal [facility] Comment on above: Order Comment: Speci men Type: TISSUE SPECIMENOrdering Facility: [facility] Address: [address] [place] [address] Result Comment: Pre- op diagnosis: Malignant neoplasm of ascending colon (HCC) [C18.2] Performed By: #### S ####[facility] LABCLIA [id number] [address] LABORATORYCLIA [id number] [address] FINAL DIAGNOSIS [facility] Comment on above: Order Comment: Speci men Type: TISSUE SPECIMENOrdering Facility: [facility] Address: [address] [place] [address] Result Comment: Term inal ileum, right colon, appendix, and omentum, resection: - Invasive moderately differentiated colonic adenocarcinoma. - Three of 18 lymph nodes involved by metastatic adenocarcinoma (3/18). - Appendix with fibrous obliteration of the tip. - Omentum with no evidence of tumor. - Terminal ileum with no evidence of tumor. - See synoptic report. Performed By: #### S ####[facility] LABCLIA [id number] [address] LABORATORYCLIA [id number] [address] FINAL PERFORMING LAB [facility] Comment on above: Order Comment: Speci men Type: TISSUE SPECIMENOrdering Facility: [facility] Address: [address] [place] [address] Result Comment: Diag nostic interpretation performed at: [facility], [address] [place] [address] CLIA# [id number] Powder Press Operator: Kenneth Rajput MD Performed By: #### S ####[facility] LABCLIA [id number] [address] STATES [facility] LABORATORYCLIA [id number] [address] STATES [facility] Result Comment: Diag nostic interpretation performed at: [facility], [address] [place] [address] CLIA# [id number] [employer] Operator: Kenneth Rajput MD Electronically signed out by: Sophia Amaya MD Performed By: #### L [id number] ####[facility] LABCLIA [id number] [address] STATES [facility] GROSS DESCRIPTION Normal [facility] Comment on above: Order Comment: Speci men Type: TISSUE SPECIMENOrdering Facility: [facility] Address: [address] [place] [address] Result Comment: Jhony suarez, Resection Received in [...] reveal any areas of induration or nodularity. Buoy Tender sections are submitted as follows: A1 perpendicular [...] 2024 1:43 PM Gross examination performed at [facility], [address] [place] [address] Performed By: #### S ####[facility] LABCLIA [id number] [place] AVENUEDESK [id number] LABORATORYCLIA [id number] [address] [place] SYNOPTIC REPORT Normal [facility] Comment on above: Order Comment: Speci men Type: TISSUE SPECIMENOrdering Facility: [facility] Address: [address] [place] [address] Result Comment: COLO N AND RECTUM: Resection [...] Findings: None identified Performed By: #### S ####[facility] LABCLIA [id number] [address] LABORATORYIA [id number] [address] [place] ECG COMPLETEon 06-08-2024 ECG COMPLETE Ventricular Rate : 6 2 BPM Atrial Rate : 62 BPM P-R Interval : 170 ms QRS Duration : 94 ms Q-T Interval : 402 ms QTC Calculation(Bazett) : 408 ms Calculated P [place] : 50 degrees Calculated R [place] : 18 degrees Calculated T [place] : 44 degrees NORMAL SINUS RHYTHM NORMAL ECG Confirmed by ALEX METCALF MD ([id number]) on 06/09/2024 6:31:40 AM NAME : PIPER RODRÍGUEZ PID : [id number] : 1970 Gender : Male Race : ORD : [id number] Procedure Date : Jun 08 2024 08:53:10 Edit Date : Jun 09 2024 06:31:44 Diagnosis: NORMAL SINUS RHYTHM NORMAL ECG Confirmed by ALEX METCALF MD ([id number]) on 06/09/2024 6:31:40 AM Test Reason : PRE OP Location : [facility] : [facility] Overread By : ALEX METCALF MD Edited By : ALEX METCALF MD Referred By : DONIS CARIAS Acquired by : Andrea YATES [facility] HISTORY PHYSICALon HISTORY PHYSICAL HNO ID: [id number] Author: AUBREY BAER PA-C Service: ? Author Type: Physician Editor Newspaper Type: H&P Filed: 06/08/2024 09:20 Note Text: [...] 5 (+SHERIE, unable to tolerate CPAP ) [id number] Score: Age: <65 Sex: male CHF history: No Hypertension history: Yes Stroke/TIA/thromboembolism history: No Vascular disease history: No Diabetes history: No [id number] Score: 1 ARISCAT Score: Age: 51-80 Preoperative [...] fevers. Neuro: No history of TIA's, stroke, [employer] tumor, impaired sensorium, hemiplegia, paraplegia or quadraplegia. [...] Skin: Ne (more content not included)... Normal [facility] Rosemarie 06-05-2024 [facility] Telephone (FVPRAD) PIPER RODRÍGUEZ ([id number]) 1970 M Date Time Provider Department 06/05/24 [...] Status:Closed by DONIS CARIAS on 06/05/24 Normal [facility] CBC W Auto Differential pane l (Bld)on 06-02-2024 Basophils (Bld) [#/Vol] 0.06 10*3/uL Normal <0.11 [facility] Comment on above: Order Comment: Speci men Type: BLOOD SPECIMENOrdering Facility: [facility] Address: [address] [address] Performed By: #### 5 7021-8 ####[facility] LABORATORYCLIA [id number] [place] [address] [place] Basophils/100 WBC (Bld) 1.0 % Normal [facility] Comment on above: Order Comment: Speci men Type: BLOOD SPECIMENOrdering Facility: [facility] Address: [address] [place] [address] Performed By: #### 5 7021-8 ####[facility] LABORATORYCLIA [id number] [place] [address] [place] Differential cell count method Nom (Bld) Auto Normal [facility] Comment on above: Order Comment: Speci men Type: BLOOD SPECIMENOrdering Facility: [facility] Address: [address] [place] [address] Performed By: #### 5 7021-8 ####[facility] LABORATORYCLIA [id number] [place] [address] [place] Eosinophils (Bld) [#/Vol] 0.28 10*3/uL Normal <0.46 [facility] Comment on above: Order Comment: Speci men Type: BLOOD SPECIMENOrdering Facility: [facility] Address: [address] [place] [address] Performed By: #### 5 7021-8 ####[facility] LABORATORYCLIA [id number] [place] [address] [place] Eosinophils/100 WBC (Bld) 4.5 % Normal [facility] Comment on above: Order Comment: Speci men Type: BLOOD SPECIMENOrdering Facility: [facility] Address: [address] [place] [address] Performed By: #### 5 7021-8 ####[facility] LABORATORYCLIA [id number] [place] [address] [place] Erythrocyte distribution width (RBC) [Ratio] 16.0 % High 11.5-15.0 [facility] Comment on above: Order Comment: Speci men Type: BLOOD SPECIMENOrdering Facility: [facility] Address: [address] [place] [address] Performed By: #### 5 7021-8 ####[facility] LABORATORYCLIA [id number] [place] [address] [place] Hematocrit (Bld) [Volume fraction] 46.1 % Normal 39.0-51.0 [facility] Comment on above: Order Comment: Speci men Type: BLOOD SPECIMENOrdering Facility: [facility] Address: [address] [place] [address] Performed By: #### 5 7021-8 ####[facility] LABORATORYCLIA [id number] [place] [id number] [place] Hemoglobin (Bld) [Mass/Vol] 15.1 g/dL Normal 13.0-17.0 [facility] Comment on above: Order Comment: Speci men Type: BLOOD SPECIMENOrdering Facility: [facility] Address: [address] [place] [address] Performed By: #### 5 7021-8 ####[facility] LABORATORYCLIA [id number] [address] [place] Immature granulocytes (Bld) [#/Vol] 0.03 10*3/uL Normal <0.10 [facility] Comment on above: Order Comment: Speci men Type: BLOOD SPECIMENOrdering Facility: [facility] Address: [address] [place] [address] Performed By: #### 5 7021-8 ####[facility] LABORATORYCLIA [id number] [address] Immature granulocytes/100 WBC (Bld) 0.5 % Normal [facility] Comment on above: Order Comment: Speci men Type: BLOOD SPECIMENOrdering Facility: [facility] Address: [address] [place] [address] Performed By: #### 5 7021-8 ####[facility] LABORATORYCLIA [id number] [place] [address] [place] Lymphocytes (Bld) [#/Vol] 1.18 10*3/uL Normal 1.00-4.00 [facility] Comment on above: Order Comment: Speci men Type: BLOOD SPECIMENOrdering Facility: [facility] Address: [address] [place] [address] Performed By: #### 5 7021-8 ####[facility] LABORATORYCLIA [id number] [place] [id number] [place] Lymphocytes/100 WBC (Bld) 18.8 % Normal [facility] Comment on above: Order Comment: Speci men Type: BLOOD SPECIMENOrdering Facility: [facility] Address: [address] [place] [address] Performed By: #### 5 7021-8 ####[facility] LABORATORYCLIA [id number] [address] [place] MCH (RBC) [Entitic mass] 30.3 pg Normal 26.0-34.0 [facility] Comment on above: Order Comment: Speci men Type: BLOOD SPECIMENOrdering Facility: [facility] Address: [address] [place] [address] Performed By: #### 5 7021-8 ####[facility] LABORATORYCLIA [id number] [address] [place] MCHC (RBC) [Mass/Vol] 32.8 g/dL Normal 30.5-36.0 [facility] Comment on above: Order Comment: Speci men Type: BLOOD SPECIMENOrdering Facility: [facility] Address: [address] [place] [address] Performed By: #### 5 7021-8 ####[facility] LABORATORYCLIA [id number] [address] [place] MCV (RBC) [Entitic vol] 92.4 fL Normal 80.0-100.0 [facility] Comment on above: Order Comment: Speci men Type: BLOOD SPECIMENOrdering Facility: [facility] Address: [address] [place] [address] Performed By: #### 5 7021-8 ####[facility] LABORATORYCLIA [id number] [address] [place] Monocytes (Bld) [#/Vol] 0.66 10*3/uL Normal <0.87 [facility] Comment on above: Order Comment: Speci men Type: BLOOD SPECIMENOrdering Facility: [facility] Address: [address] [place] [address] Performed By: #### 5 7021-8 ####[facility] LABORATORYCLIA [id number] [place] [id number] [place] Monocytes/100 WBC (Bld) 10.5 % Normal [facility] Comment on above: Order Comment: Speci men Type: BLOOD SPECIMENOrdering Facility: [facility] Address: [address] [place] [address] Performed By: #### 5 7021-8 ####[facility] LABORATORYCLIA [id number] [place] [id number] [place] Neutrophils (Bld) [#/Vol] 4.06 10*3/uL Normal 1.45-7.50 [facility] Comment on above: Order Comment: Speci men Type: BLOOD SPECIMENOrdering Facility: [facility] Address: [address] [place] [address] Performed By: #### 5 7021-8 ####[facility] LABORATORYCLIA [id number] [place] [address] [place] Neutrophils/100 WBC (Bld) 64.7 % Normal [facility] Comment on above: Order Comment: Speci men Type: BLOOD SPECIMENOrdering Facility: [facility] Address: [address] [place] [address] Performed By: #### 5 7021-8 ####[facility] LABORATORYCLIA [id number] [place] [id number] [place] Nucleated RBC (Bld) [#/Vol] 10*3/uL Normal <0.01 [facility] Comment on above: Order Comment: Speci men Type: BLOOD SPECIMENOrdering Facility: [facility] Address: [address] [place] [address] Performed By: #### 5 7021-8 ####[facility] LABORATORYCLIA [id number] [place] [id number] [place] Nucleated RBC/100 WBC (Bld) [Ratio] 0.0 /100 WBC Normal [facility] Comment on above: Order Comment: Speci men Type: BLOOD SPECIMENOrdering Facility: [facility] Address: [address] [place] [address] Performed By: #### 5 7021-8 ####[facility] LABORATORYCLIA [id number] [place] [id number] [place] Platelet mean volume (Bld) [Entitic vol] 10.1 fL Normal 9.0-12.7 [facility] Comment on above: Order Comment: Speci men Type: BLOOD SPECIMENOrdering Facility: [facility] Address: [address] [place] [address] Performed By: #### 5 7021-8 ####[facility] LABORATORYCLIA [id number] [place] [id number] [place] Platelets (Bld) [#/Vol] 182 10*3/uL Normal 150-400 [facility] Comment on above: Order Comment: Speci men Type: BLOOD SPECIMENOrdering Facility: [facility] Address: [address] [place] [address] Performed By: #### 5 7021-8 ####[facility]ORATORYCLIA [id number] [place] [id number] [place] RBC (Bld) [#/Vol] 4.99 10*6/uL Normal 4.20-6.00 [facility] Comment on above: Order Comment: Speci men Type: BLOOD SPECIMENOrdering Facility: [facility] Address: [address] [place] [address] Performed By: #### 5 7021-8 ####[facility]ATORYCLIA [id number] [place] [id number] [place] WBC (Bld) [#/Vol] 6.27 10*3/uL Normal 3.70-11.00 [facility] Comment on above: Order Comment: Speci men Type: BLOOD SPECIMENOrdering Facility: [facility] Address: [address] [place] [address] Performed By: #### 5 7021-8 ####[facility]ORATORYCLIA [id number] [place] [id number] [place] CEA SerPl-mCncon 06-02-2024 Carcinoembryonic Ag [Mass/Vol] 3.5 ng/mL High <=2.9 [facility] Comment on above: Order Comment: Speci men Type: BLOOD SPECIMENOrdering Facility: [facility] Address: [address] [place] [address] Result Comment: Carc inoembryonic antigen test is used as an aid in monitoring response to treatment or recurrence in patients with established colorectal, breast, lung, prostatic, pancreatic, and ovarian carcinomas. Clinical correlation is required. The Carcinoembryonic antigen test was performed using the Ever[employer] [place] [employer] DXI paramagnetic particle chemiluminescent immunoassay method. Results obtained with different assay methods or kits cannot be used interchangeably. Performed By: #### 2 039-6 ####[facility] LABCLIA [id number] [place] [address] [place] CT ABD/PEL W [...] pelvis. 4. Fatty infiltration of the liver. [employer] Solution Architect: WILBER Transcribe Date/Time: Jun 04 2024 8:16A Dictated by : OSKAR JOHNSON MD This examination was interpreted and the report reviewed and electronically signed by: OSKAR JOHNSON MD on Jun 04 2024 8:28AM EST [id number] Normal [facility] CT CHEST W IVCONon CT CHEST [...] pelvis. 4. Fatty infiltration of the liver. [employer] Solution Architect: WILBER Transcribe Date/Time: Jun 04 2024 8:16A Dictated by : OSKAR JOHNSON MD This examination was interpreted and the report reviewed and electronically signed by: OSKAR JOHNSON MD on Jun 04 2024 8:28AM EST [id number] Normal [facility] Comprehensive metabolic 2000 panelon 06-02-2024 Albumin [Mass/Vol] 4.1 g/dL Normal 3.9-4.9 [facility] Comment on above: Order Comment: Speci men Type: BLOOD SPECIMENOrdering Facility: [facility] Address: [address] [place] [address] Performed By: #### 2 4323-8 ####[facility] LABORATORYCLIA [id number] [place] [address] [place] ALP [Catalytic activity/Vol] 85 U/L Normal 38-113 [facility] Comment on above: Order Comment: Speci men Type: BLOOD SPECIMENOrdering Facility: [facility] Address: [address] [place] [address] Performed By: #### 2 4323-8 ####HAZARD LABORATORYCLIA [id number] [place] [address] [place] ALT [Catalytic activity/Vol] 175 U/L High 10-54 [facility] Comment on above: Order Comment: Speci men Type: BLOOD SPECIMENOrdering Facility: [facility] Address: [address] [place] [address] Performed By: #### 2 4323-8 ####HAZARD LABORATORYCLIA [id number] [place] [id number] [place] Anion gap [Moles/Vol] 13 mmol/L Normal 8-15 [facility] Comment on above: Order Comment: Speci men Type: BLOOD SPECIMENOrdering Facility: [facility] Address: [address] [place] [address] Performed By: #### 2 4323-8 ####HAZARD LABORATORYCLIA [id number] [place] [id number] [place] AST [Catalytic activity/Vol] 151 U/L High 14-40 [facility] Comment on above: Order Comment: Speci men Type: BLOOD SPECIMENOrdering Facility: [facility] Address: [address] [place] [address] Performed By: #### 2 4323-8 ####AMRITA LABORATORYCLIA [id number] [place] [id number] [place] Bilirubin [Mass/Vol] 0.6 mg/dL Normal 0.2-1.3 [facility] Comment on above: Order Comment: Speci men Type: BLOOD SPECIMENOrdering Facility: [facility] Address: [address] [place] [address] Performed By: #### 2 4323-8 ####[facility] LABORATORYCLIA [id number] [place] [address] [place] Calcium [Mass/Vol] 9.1 mg/dL Normal 8.5-10.2 [facility] Comment on above: Order Comment: Speci men Type: BLOOD SPECIMENOrdering Facility: [facility] Address: [address] [place] [address] Performed By: #### 2 4323-8 ####[facility] LABORATORYCLIA [id number] [place] [address] [place] Chloride [Moles/Vol] 94 mmol/L Low 98-107 [facility] Comment on above: Order Comment: Speci men Type: BLOOD SPECIMENOrdering Facility: [facility] Address: [address] [place] [address] Performed By: #### 2 4323-8 ####[facility] LABORATORYCLIA [id number] [place] [id number] [place] CO2 [Moles/Vol] 24 mmol/L Normal 22-30 [facility] Comment on above: Order Comment: Speci men Type: BLOOD SPECIMENOrdering Facility: [facility] Address: [address] [place] [address] Performed By: #### 2 4323-8 ####HAZARD LABORATORYCLIA [id number] [place] [address] [place] Creatinine [Mass/Vol] 1.08 mg/dL Normal 0.73-1.22 [facility] Comment on above: Order Comment: Ara powers Type: BLOOD SPECIMENOrdering Facility: [facility] Address: [address] [place] [address] Performed By: #### 2 4323-8 ####HAZARD LABORATORYCLIA [id number] [address] OF [facility] Creatinine and Glomerular filtration rate.predicted panel (S/P/Bld) 82 mL/min/1.73m??? Normal >=60 [facility] Comment on above: Order Comment: Ara powers Type: BLOOD SPECIMENOrdering Facility: [facility] Address: [address] [place] [address] Result Comment: Dee mated Glomerular Filtration Rate [...] actual GFR. Performed By: #### 2 4323-8 ####HAZARD LABORATORYCLIA [id number] [place] [id number] [place] Glucose [Mass/Vol] 97 mg/dL Normal 74-99 [facility] Comment on above: Order Comment: Ara powers Type: BLOOD SPECIMENOrdering Facility: [facility] Address: [address] [place] [address] Result Comment: The [place] [employer] Association (ADA) provides guidance for cutoff [...] Standards of Medical Care in Diabetes 2016, [place] [employer]. Diabetes Care. 2016.39(Suppl 1). Performed By: #### 2 4323-8 ####AMRITA LABORATORYCLIA [id number] [place] [id number] [place] Potassium [Moles/Vol] 5.2 mmol/L High 3.7-5.1 [facility] Comment on above: Order Comment: Speci men Type: BLOOD SPECIMENOrdering Facility: [facility] Address: [address] [place] [address] Performed By: #### 2 4323-8 ####[facility] LABORATORYCLIA [id number] [place] [id number] [place] [facility] Protein [Mass/Vol] 7.8 g/dL Normal 6.3-8.0 [facility] Comment on above: Order Comment: Speci men Type: BLOOD SPECIMENOrdering Facility: [facility] Address: [address] [place] [address] Performed By: #### 2 4323-8 ####HAZARD LABORATORYCLIA [id number] [place] [id number] [place] Sodium [Moles/Vol] 131 mmol/L Low 136-144 [facility] Comment on above: Order Comment: Speci men Type: BLOOD SPECIMENOrdering Facility: [facility] Address: [address] [place] [address] Performed By: #### 2 4323-8 ####HAZARD LABORATORYCLIA [id number] [place] [id number] [place] Urea nitrogen [Mass/Vol] 11 mg/dL Normal 9-24 [facility] Comment on above: Order Comment: Speci men Type: BLOOD SPECIMENOrdering Facility: [facility] Address: [address] [place] [address] Performed By: #### 2 4323-8 ####[facility] LABORATORYCLIA [id number] [place] [id number] [facility] [place] NURSING PROGon 06-02-2024 NURSING PROG HNO ID: [id number] Author: ABILIO TANG, RN Service: PICC Team [...] DATE: June 02, 2024 TIME: 8:53 AM [facility] 06-01-2024 [facility] Telephone ([facility]) ZOLTANPIPER METCALF Marychuy ([id number]) 1970 M Date Time Provider Department 06/01/24 DONIS CARIAS [facility] During your visit today, we recorded the following information about you: Be Cloud 06/01/2024 10:07 AM Signed 06/01 Patient called, stated that he wanted to cancel CT that was for 06/02 due to distance to appointment. Stated that will go to [facility] to gert CT done. Was wondering if able to go to [place] for CT? Jocelyn Cantrell, RN 06/01/2024 11:03 AM Signed Spoke with patient. He was under the impression he could get his CT done in [place] and could have the images sent to Dr. Carias. We had a long discussion about the process to make that happen and my concerns that it would not be done in time to continue with his surgery on 06/14. He was agreeable to reschedule his CT at [place] on 06/02/24. He will get his lab work done tomorrow prior to his CT. Allergies As of Date: 06/01/2024 (No Known Allergies) Date Reviewed: 05/25/2024 Reviewed by: Jessica Bass OCCA - Fully Assessed Reason for Visit: Patient Question [9637] Prescriptions as of 06/01/2024 - metroNIDAZOLE (FLAGYL) [...] Status:Closed by JOCELYN CANTRELL on 06/01/24 Normal [facility] CNOVon 05-25-2024 CNOV Office Visit ([facility] ) PIPER RODRÍGUEZ ([id number]) 1970 M Date Time Provider Department 05/25/24 11:20 AM DONIS CARIAS [facility] During your visit today, we recorded the [...] for internal providers or letter via the [employer] for external providers. Chief Complaint: [...] Magallanes: Seth Castro operative note (path pending) [id number] Pathology Scan on 05/22/2024 8:26 AM by Be Cloud: [facility] Pathology Report 05/11/24 COLON, Biopsy, Cecum: [...] with st (more content not included)... Normal [facility] Pathology Request for Lab Co rpon 05-10-2024 Pathology Request for Lab Bibiana Normal [facility] Comment on above: Order Comment: PATHO LOGY GI SPECIMEN Result Comment: See report. Scanned copy available in EMR. PERFORMED BY: [place] [address] PATHOLOGIST [employer]CH[employer]IC [employer]INE ETHAN SOLANO M.D. Performed By: #### P ATH TO [facility] #### [address] Ambulatory Visit Summaryon 1 06-26-2023 Ambulatory [...] for choosing us for your care. Normal [facility] Dragan 09-13-2023 L Specimen: BP Re ceived: 09/14/23 Status: SOUT Req Num: [id number] Spec Type: Impression Subm Dr: Kisha Esteves MD Tissues: PATHPER Procedures: PATHREVIEW Age/ Patient Sex Location Account Attending Physician Piper Rodríguez O 53/M LABELL [id number] Kisha Esteves MD SPEC NUM: [id number] RECD: 09/14/23 STATUS: SOUT REQ NUM: [id number] ANDREA: 09/13/[address]: Kisha Esteves MD ENTERED: 09/14/23 [facility] DR: Renaldo Fung SPEC TYPE: Impression DEPT: [facility] ENTERED BY: [id number] RECV BY: [id number] ORDERED: PATHREVIEW ORDERED: PATHREVIEW Pathologist Review Normocytic Anemia is noted. Bone Marrow Pathology Vs. Peripheral Etiology. 34983 -------- -------- Specimen: [id number] Received: 09/14/23 Status: DEION Garciarashmi Num: [id number] Spec Type: Impression Subm Dr: Kisha Esteves MD Tissues: PATHPER Procedures: PATHREVIEW -------- Patient: Piper Rodríguez [id number] (Continued) -------- Signed (signature on file) Ethan Solano MD 09/15/23 1516 Normal [facility] ED Note-Physicianon 08-05-19 ED Note-Physician [id number] Normal [facility] RAD - CT Reporton 08-05-2023 RAD - CT Report [id number]#1.00TIFF Normal Seth [facility] Dragan 08-02-2023 L Specimen: Re ceived: 08/03/23 Status: SOUT Req Num: [id number] Spec Type: Impression Subm Dr: Gen Peña MD Tissues: PATHPER Procedures: PATHREVIEW Age/ Patient Sex Location Account Attending Physician Piper Rodríguez 53/M LABELL [id number] Gen Peña MD SPEC NUM: [id number] RECD: 08/03/23 STATUS: SOUT REQ NUM: [id number] ANDREA: 08/02/[address]: Gen Peña MD ENTERED: 08/03/[address]: SPEC TYPE: Impression DEPT: [facility] ENTERED BY: [id number] RECV BY: [id number] ORDERED: PATHREVIEW ORDERED: PATHREVIEW Pathologist Review Abnormal [...] BP24- Received: 08/03/23-1350 Status: DEION Leblanc Num: [id number] Spec Type: Impression Subm Dr: Gen Peña MD Tissues: PATHPER Procedures: PATHREVIEW -------- Patient: Piper Rodríguez [id number] (Continued) -------- Specimen: BP24 Received: 08/03/23-135 (Continued) Pathologist Review (Continued) Signed (signature on file) Tammy Mathew MD 08/05/23 1828 -------- Specimen: BP24 Received: 08/03/23 Status: LORNEDago Leblanc Num: [id number] Spec Type: Impression Subm Dr: Gen Peña MD Tissues: PATHPER Procedures: PATHREVIEW -------- Patient: Piper Rodríguez [id number] (Continued) -------- Specimen: BP24- Received: 08/03/23 (Continued) Pathologist Review (Continued) CPT: 45488 CBC No results available. -------- -------- Specimen: BP24 Received: 08/03/23 Status: DEION Leblanc Num: [id number] Spec Type: Impression Subm Dr: Gen Peña MD Tissues: PATHPER Procedures: PATHREVIEW -------- Patient: Piper Rodríguez [id number] (Continued) -------- Signed (signature on file) Tammy Mathew MD 08/05/23 1828 Normal [facility] Physician Referralon 024 Physician Referral [id number] Normal [facility] T4 [facility] 02-05-2022 T4 [Mass/Vol] 9.2 ug/dL Normal 4.5-12.0 [facility] Comment on above: Performed By: #### T 4LC #### [facility] [address] [place] [address] [address] Rayna Mathew CBC AUTO DIFFon 02-04-2022 BASO # 0.0 103/ul Normal 0.0-0.1 [facility] Comment on above: Performed By: #### C BC #### [facility] [address] [place] [address] [address] Rayna Mathew Basophils/100 WBC (Bld) 0.7 % Normal 0.2-2.0 [facility] Comment on above: Performed By: #### C BC #### [facility] [address] [place] [address] Dr. Rayna Mtahew EO # 0.4 103/ul Normal 0.0-0.7 [facility] Comment on above: Performed By: #### C BC #### [facility] [address] [place] [address] Dr. Rayna Mathew Eosinophils/100 WBC (Bld) 6.7 % Normal 0.9-7.0 [facility] Comment on above: Performed By: #### C BC #### [facility] [address] [place] [address] Dr. Rayna Mathew Erythrocyte distribution width (RBC) [Ratio] 13.5 % Normal 11.0-15.0 [facility] Comment on above: Performed By: #### C BC #### [facility] [address] [place] [address] Dr. Rayna Mathew Hematocrit (Bld) [Volume fraction] 37.2 % Critically low 42.0-54.0 [facility] Comment on above: Performed By: #### C BC #### [facility] [address] [place] [address] Dr. Rayna Mathew Hemoglobin (Bld) [Mass/Vol] 11.5 g/dL Critically low 14.0-18.0 [facility] Comment on above: Performed By: #### C BC #### [facility] [address] [place] [address] Dr. Rayna Mathew IG # 0.02 10e3/ul Normal 0.00-0.03 [facility] Comment on above: Performed By: #### C BC #### [facility] [address] [place] [address] Dr. Rayna Mathew IG % 0.3 % Normal 0.0-0.5 [facility] Comment on above: Performed By: #### C BC #### [facility] [address] [place] [address] Dr. Rayna Mathew LYMPH # 1.4 103/ul Normal 1.2-3.8 [facility] Comment on above: Performed By: #### C BC #### [facility] [address] [place] [address] Dr. Rayna Mathew Lymphocytes/100 WBC (Bld) 23.8 % Normal 20.5-60.0 [facility] Comment on above: Performed By: #### C BC #### [facility] [address] [place] [address] Dr. Rayna Mathew MANUAL DIFF REQ NO Normal [facility] Comment on above: Performed By: #### C BC #### [facility] [address] [place] [address] Dr. Rayna Mathew MCH (RBC) [Entitic mass] 27.4 pg Normal 25.9-34.0 [facility] Comment on above: Performed By: #### C BC #### [facility] [address] [place] [address] Dr. Rayna Mathew MCHC (RBC) [Mass/Vol] 30.9 g/dL Normal 29.9-35.2 [facility] Comment on above: Performed By: #### C BC #### [facility] [address] [place] [address] Dr. Rayna Mathew MCV (RBC) [Entitic vol] 88.6 fL Normal 80.0-94.0 [facility] Comment on above: Performed By: #### C BC #### [facility] [address] [place] [address] Dr. Rayna Mathew MONO # 0.6 103/ul Normal 0.3-0.8 [facility] Comment on above: Performed By: #### C BC #### [facility] [address] [place] [address] Dr. Rayna Mathew Monocytes/100 WBC (Bld) 9.2 % Normal 1.7-12.0 [facility] Comment on above: Performed By: #### C BC #### [facility] [address] [place] [address] Dr. Rayna Mathew NEUT # 3.5 103/ul Normal 1.4-6.5 [facility] Comment on above: Performed By: #### C BC #### [facility] [address] [place] [address] Dr. Rayna Mathew Neutrophils/100 WBC (Bld) 59.3 % Normal 43.0-75.0 [facility] Comment on above: Performed By: #### C BC #### [facility] [address] [place] [address] Dr. Rayna Mathew Platelet mean volume (Bld) [Entitic vol] 10.4 fL Normal 9.5-13.5 [facility] Comment on above: Performed By: #### C BC #### [facility] [address] [place] [address] Dr. Ryana Mathew PLT 182 103/ul Normal 150-450 [facility] Comment on above: Performed By: #### C BC #### [facility] [address] [place] [address] Dr. Rayna Mathew RBC 4.20 106/ul Critically low 4.70-6.10 [facility] Comment on above: Performed By: #### C BC #### [facility] [address] [place] [address] Dr. Rayna Mathew WBC 6.0 103/ul Normal 4.0-11.0 [facility] Comment on above: Performed By: #### C BC #### [facility] [address] [place] [address] Dr. Rayna Mathew FREE T3on 02-04-2022 FREE T3 3.28 pg/mlL Normal 2.18-3.98 [facility] Comment on above: Performed By: #### F T3, TSH, CMP, LIPID #### [facility] [address] [place] [address] Dr. Rayna Mathew GLYCOHEMOGLOBIN A1Con 2021 ADA RECOMMENDATION SEE BELOW Normal [facility] Comment on above: Result Comment: ADA RECOMMENDED LIMIT 4.0 - 6.0 ADA THERAPEUTIC TARGET < 7.0 ACTION SUGGESTED > 7.0 Performed By: #### A 1C #### [facility] [address] [place] [address] Dr. Ryana Mathew Glucose [Mass/Vol] 123 mg/dL Normal [facility] Comment on above: Performed By: #### A 1C #### [facility] [address] [place] [address] Dr. Rayna Mathew HbA1c (Bld) [Mass fraction] 5.9 % Normal 4.5-6.2 [facility] Comment on above: Performed By: #### A 1C #### [facility] [address] [address] [address] Rayna Mathew LIPID PROFILEon 02-04-2022 CHOL-HDL RATIO NORM SEE BELOW Normal [facility] Comment on above: Result Comment: 3.3 - 4.4 LOW RISK 4.4 - 7.1 AVERAGE RISK 7.1 - 11.0 MODERATE RISK >11.0 HIGH RISK Performed By: #### F T3, TSH, CMP, LIPID #### [facility] [address] [address] [address] Rayna Mathew Cholesterol [Mass/Vol] 158 mg/dL Normal <=200 [facility] Comment on above: Performed By: #### F T3, TSH, CMP, LIPID #### [facility] [address] [place] [address] Dr. Rayna Mathew Cholesterol in HDL [Mass/Vol] 47 mg/dL Normal 40-60 [facility] Comment on above: Performed By: #### F T3, TSH, CMP, LIPID #### [facility] [address] [address] [address] Rayna Mathew Cholesterol in LDL [Mass/Vol] 98.0 mg/dL Normal [facility] Comment on above: Performed By: #### F T3, TSH, CMP, LIPID #### [facility] [address] [place] [address] Dr. Rayna Mathew Cholesterol.total/Cho lesterol in HDL [Mass ratio] 3.4 {ratio} Normal [facility] Comment on above: Performed By: #### F T3, TSH, CMP, LIPID #### [facility] [address] [place] [address] Dr. Rayna Mathew HDL NORMAL > or = 60 mg/dl - LO W CARDIOVASCULAR RISK <40 mg/dl - HIGH CARDIOVASCULAR RISK Normal [facility] Comment on above: Performed By: #### F T3, TSH, CMP, LIPID #### [facility] [address] [place] [address] Dr. Rayna Mathew LDL CALC NORMAL SEE BELOW Normal [facility] Comment on above: Result Comment: <100 mg/dl OPTIMAL 100 - 129 mg/dl NEAR OR ABOVE OPTIMAL 130 - 159 mg/dl BORDERLINE HIGH 160 - 189 mg/dl HIGH >190 mg/dl VERY HIGH Performed By: #### F T3, TSH, CMP, LIPID #### [facility] [address] [address] [address] Rayna Mathew Triglyceride [Mass/Vol] 65 mg/dL Normal <=150 [facility] Comment on above: Performed By: #### F T3, TSH, CMP, LIPID #### [facility] [address] [address] [address] Rayna Mathew VLDL CALC 13.0 mg/dL Normal [facility] Comment on above: Performed By: #### F T3, TSH, CMP, LIPID #### [facility] [address] [place] [address] Dr. Rayna Mathew PROF 14(COMP METB)on 022 Albumin [Mass/Vol] 3.8 g/dL Normal 3.4-5.0 [facility] Comment on above: Performed By: #### F T3, TSH, CMP, LIPID #### [facility] [address] [address] [address] Rayna Mathew Albumin/Globulin [Mass ratio] 0.9 {ratio} Normal [facility] Comment on above: Performed By: #### F T3, TSH, CMP, LIPID #### [facility] [address] [address] [address] Rayna Mathew ALP [Catalytic activity/Vol] 76 U/L Normal 46-116 [facility] Comment on above: Performed By: #### F T3, TSH, CMP, LIPID #### [facility] [address] [address] [address] Rayna Mathew ALT [Catalytic activity/Vol] 109 U/L Critically high 16-63 [facility] Comment on above: Performed By: #### F T3, TSH, CMP, LIPID #### [facility] [address] [address] [address] Rayna Mathew Anion gap [Moles/Vol] 11.1 mmol/L Normal [facility] Comment on above: Performed By: #### F T3, TSH, CMP, LIPID #### [facility] [address] [address] [address] Rayna Mathew AST [Catalytic activity/Vol] 79 U/L Critically high 15-37 [facility] Comment on above: Performed By: #### F T3, TSH, CMP, LIPID #### [facility] [address] [address] [address] Rayna Mathew Bilirubin [Mass/Vol] 0.4 mg/dL Normal 0.2-1.0 [facility] Comment on above: Performed By: #### F T3, TSH, CMP, LIPID #### [facility] [address] [place] [address] Dr. Rayna Mathew Calcium [Mass/Vol] 9.0 mg/dL Normal 8.5-10.1 [facility] Comment on above: Performed By: #### F T3, TSH, CMP, LIPID #### [facility] [address] [address] [address] Rayna Mathew Chloride [Moles/Vol] 102 mmol/L Normal 98-107 [facility] Comment on above: Performed By: #### F T3, TSH, CMP, LIPID #### [facility] [address] [address] [address] Rayna Mathew CO2 [Moles/Vol] 29.5 mmol/L Normal 21.0-32.0 [facility] Comment on above: Performed By: #### F T3, TSH, CMP, LIPID #### [facility] [address] [address] [address] Rayna Mathew Creatinine [Mass/Vol] 0.96 mg/dL Normal 0.70-1.30 [facility] Comment on above: Performed By: #### F T3, TSH, CMP, LIPID #### [facility] [address] [address] [address] Rayna Mathew EGFR-AF LAO >60 Normal >=60 [facility] Comment on above: Performed By: #### F T3, TSH, CMP, LIPID #### [facility] [address] [address] [address] Rayna Mathew EGFR-NON AF LAO >60 Normal >=60 [facility] Comment on above: Performed By: #### F T3, TSH, CMP, LIPID #### [facility] [address] [address] [address] Rayna Mathew Globulin (S) [Mass/Vol] 4.0 g/dL Normal [facility] Comment on above: Performed By: #### F T3, TSH, CMP, LIPID #### [facility] [address] [address] [address] Rayna Mathew Glucose [Mass/Vol] 121 mg/dL Critically high 74-106 [facility] Comment on above: Performed By: #### F T3, TSH, CMP, LIPID #### [facility] [address] [address] [address] Rayna Mathew Potassium [Moles/Vol] 4.6 mmol/L Normal 3.5-5.1 [facility] Comment on above: Performed By: #### F T3, TSH, CMP, LIPID #### [facility] [address] [address] [address] Rayna Mathew Protein [Mass/Vol] 7.8 g/dL Normal 6.4-8.2 [facility] Comment on above: Performed By: #### F T3, TSH, CMP, LIPID #### [facility] [address] [address] [address] Rayna Mathew Sodium [Moles/Vol] 138 mmol/L Normal 136-145 [facility] Comment on above: Performed By: #### F T3, TSH, CMP, LIPID #### [facility] [address] [address] [address] Rayna Mathew Urea nitrogen [Mass/Vol] 11.0 mg/dL Normal 7.0-18.0 [facility] Comment on above: Performed By: #### F T3, TSH, CMP, LIPID #### [facility] [address] [address] [address] Rayna Mathew Urea nitrogen/Creatinine [Mass ratio] 11.5 mg/mg Normal [facility] Comment on above: Performed By: #### F T3, TSH, CMP, LIPID #### [facility] [address] [place], [place] [address] Dr. Rayna Mathew TSHon 02-04-2022 TSH 1.905 uIU/mL Normal 0.358-3.74 0 [facility] Comment on above: Performed By: #### F T3, TSH, CMP, LIPID #### [facility] [address] [place], [place] [address] Dr. Rayna Mathew Vital Signs Date Time Vital Sign Value Performing Clinician Faci lity 06-28-2024 15:21-0500 Blood Pressure Location Jone NILL [facility] [place] 06-28-2024 15:21-0500 Diastolic blood pressure 84 mm[Hg] Jone NILL [facility] [place] 06-28-2024 15:21-0500 Heart rate 72 /min Jone NILL [facility] [place] 06-28-2024 15:21-0500 Respiratory rate 16 /min Jone NILL [facility] [place] 06-28-2024 15:21-0500 Systolic blood pressure 128 mm[Hg] Jone NILL [facility] [place] 06-28-2024 10:56-0500 Body height 177.8 cm Joseph Bragg MD Work Phone: [facility] 06-28-2024 10:56-0500 Body mass index (BMI) [Ratio] 36.47 kg/m2 Joseph Bragg MD Work Phone: [facility] 06-28-2024 10:56-0500 Body temperature 97.3 [degF] Joseph Bragg MD Work Phone: [facility] 06-28-2024 10:56-0500 Body weight 115.3 kg Joseph Bragg MD Work Phone: [facility] 06-28-2024 10:56-0500 Diastolic blood pressure 79 mm[Hg] Joseph Bragg MD Work Phone: [facility] 06-28-2024 10:56-0500 Heart rate 74 /min Joseph Bragg MD Work Phone: [facility] 06-28-2024 10:56-0500 Respiratory rate 18 /min Joseph Bragg MD Work Phone: [facility] 06-28-2024 10:56-0500 SaO2% (BldA) [Mass fraction] 97 % Joseph Bragg MD Work Phone: [facility] 06-28-2024 10:56-0500 Systolic blood pressure 118 mm[Hg] Joseph Bragg MD Work Phone: [facility] 06-08-2024 08:34-0500 Body height 177.8 cm Pacc 1 Work Phone: [facility] 06-08-2024 08:34-0500 Body mass index (BMI) [Ratio] 38.78 kg/m2 Pacc 1 Work Phone: [facility] 06-08-2024 08:34-0500 Body temperature 98.01 [degF] Pacc 1 Work Phone: [facility] 06-08-2024 08:34-0500 Body weight 122.6 kg Pacc 1 Work Phone: [facility] 06-08-2024 08:34-0500 Diastolic blood pressure 82 mm[Hg] Pacc 1 Work Phone: [facility] 06-08-2024 08:34-0500 Heart rate 72 /min Pacc 1 Work Phone: [facility] 06-08-2024 08:34-0500 Respiratory rate 15 /min Pacc 1 Work Phone: [facility] 06-08-2024 08:34-0500 SaO2% (BldA) [Mass fraction] 98 % Pac 1 Work Phone: [facility] 06-08-2024 08:34-0500 Systolic blood pressure 128 mm[Hg] Pac 1 Work Phone: [facility] 05-25-2024 11:10-0500 Body height 177.8 cm Donis Carias MD Work Phone: [facility] 05-25-2024 11:10-0500 Body mass index (BMI) [Ratio] 38.88 kg/m2 Donis Carias MD Work Phone: [facility] 05-25-2024 11:10-0500 Body temperature 97 [degF] Donis Carias MD Work Phone: [facility] 05-25-2024 11:10-0500 Body weight 122.92 kg Donis Carias MD Work Phone: [facility] 05-25-2024 11:10-0500 Diastolic blood pressure 84 mm[Hg] Donis Carias MD Work Phone: [facility] 05-25-2024 11:10-0500 Heart rate 68 /min Donis Carias MD Work Phone: [facility] 05-25-2024 11:10-0500 SaO2% (BldA) [Mass fraction] 97 % Donis Carias MD Work Phone: [facility] 05-25-2024 11:10-0500 Systolic blood pressure 124 mm[Hg] Donis Carias MD Work Phone: [facility] 04-25-2024 10:21-0500 Blood Pressure Location Jone HEDRICK [facility] [place] 12-03-2024 10:21-0500 Diastolic blood pressure 80 mm[Hg] Jone NILL [facility] 04-25-2024 10:21-0500 Heart rate 68 /min Jone NILL [facility] 04-25-2024 10:21-0500 Respiratory rate 16 /min Jone NILL [facility] 04-25-2024 10:21-0500 Systolic blood pressure 138 mm[Hg] Jone NILL [facility] Encounters Encounter Date Encounter Type Care Provider Facility Start: 06-30-2024 End: 06-30-2024 Telephone encounter Chelle Willis RN Work Phone: Hematology/Oncology Comment on above: Care Coordination (C ancelling appointments at our office) Start: 06-29-2024 End: 06-29-2024 Chart abstracting Camryn Beaulieu Research Coordinator Hematology/Oncology Comment on above: Research (TCI Resear ch Pre-Screening (IRB: [id number])) Start: 06-28-2024 End: 06-28-2024 Patient encounter procedure Jone R NILL [facility] Start: 06-28-2024 End: 06-28-2024 ambulatory Jone R NILL Facility:[facility] Start: 06-28-2024 End: 06-28-2024 Office outpatient new 60 minutes Joseph Bragg MD Work Phone: Hematology/Oncology Comment on above: Malignant neoplasm o f ascending colon (HCC) Start: 06-26-2024 End: 06-26-2024 Orders Only Donis Carias MD Work Phone: Colorectal Surgery Comment on above: Malignant neoplasm o f ascending colon (HCC) (Primary Dx) Start: 06-21-2024 End: 06-21-2024 ambulatory [facility] R [facility]ILL [facility] Start: 06-21-2024 End: 06-21-2024 Patient encounter procedure Jone Kervin FLORIDALMA [facility] [place] Start: 06-21-2024 End: 06-21-2024 Telephone encounter Donis Carias MD Work Phone: Colorectal Surgery Start: 06-21-2024 End: 06-23-2024 Evaluation and management of inpatient GEN PEÑA Facility:[facility] Start: 06-20-2024 End: 06-20-2024 Telephone encounter Donis Carias MD Work Phone: Colorectal Surgery Comment on above: Post Op Start: 06-19-2024 End: 06-19-2024 Telephone encounter Donis Carias MD Work Phone: Colorectal Surgery Comment on above: Patient Question Start: 06-14-2024 End: 06-16-2024 Evaluation and management of inpatient JACKIEBridget CARIAS Facility:[facility] Start: 06-08-2024 End: 06-08-2024 Admission to establishment Pacc [facility] 1 Work Phone: Pre Anesthesia Start: 06-08-2024 End: 06-08-2024 ambulatory JACKIEBridget CARIAS Facility:[facility] Start: 06-08-2024 End: 06-08-2024 Anesthesia consultation Pacc 1 Work Phone: Pre Anesthesia Comment on above: Pre-op evaluation (P rimary Dx); BMI 38.0-38.9,adult; Smokeless tobacco use; SHERIE (obstructive sleep apnea) Start: 06-08-2024 End: 06-08-2024 Preprocedural examination done Pacc 1 Work Phone: [facility] Work Phone: Start: 06-05-2024 End: 06-05-2024 Telephone encounter Donis Carias MD Work Phone: [facility] Provider Adult Start: 06-02-2024 End: 06-02-2024 ambulatory DONIS CARIAS Facility:[facility] Start: 06-02-2024 ambulatory DONIS CARIAS Facili ty:[facility] Start: 06-02-2024 End: 06-02-2024 Subsequent hospital visit by physician Ct [facility] Comment on above: Malignant neoplasm o f ascending colon (HCC) [C18.2] Start: 06-01-2024 End: 06-01-2024 Telephone encounter Donis Carias MD Work Phone: Colorectal Surgery Comment on above: Patient Question Start: 05-25-2024 End: 05-25-2024 ambulatory DONIS CARIAS Facility:[facility] Start: 05-25-2024 End: 05-25-2024 Patient encounter procedure Donis Carias MD Work Phone: Colorectal Surgery Comment on above: Malignant neoplasm o f ascending colon (HCC) (Primary Dx) Start: 05-10-2024 End: 05-10-2024 ambulatory Jone R Nill Facility:[facility] Start: 05-10-2024 End: 05-10-2024 ambulatory Jone R NILL Facility:CD:[id number] Start: 04-25-2024 End: 04-25-2024 ambulatory Jone R NILL Facility:[facility] Start: 04-25-2024 End: 04-25-2024 Patient encounter procedure Jone R NILL [facility] [place] Start: 09-13-2023 End: 09-13-2023 ambulatory Kisha Danielito [facility] Work Phone: Start: 09-13-2023 End: 09-13-2023 Departed Referred MD Gen Peña Work Phone: [facility] [place] [facility] Start: 08-03-2023 ambulatory Jone NILL Facility:[facility] Start: 08-02-2023 End: 08-02-2023 ambulatory Gen Peña Facility:[facility] Start: 08-02-2023 End: 08-02-2023 Departed Referred MD Gen Peña Work Phone: [facility] [place] [facility] Start: 07-30-2023 ambulatory Jone NILL Facility:[facility] Start: 07-14-2022 End: 07-15-[address] GEN PEÑA . Facility:[facility] Start: 02-10-[address] GEN PEÑA . Facili ty:[facility] Start: 02-08-2022 Encounter for genera l adult medical examination without abnormal findings DR GEN PEÑA . [facility] Start: 02-04-2022 End: 02-05-[address] GEN [...] on above: Performed By: #### PSASC #### [facility] [address] [place] [address] Dr. Rayna Mathew Start: 06-03-2018 Colonoscopy Jone NILL Repair of joint of left hip Jone NILL Repair of joint of right hip Jone NILL Plan of Treatment Date Care Activity Detail Author Start: 06-08-2034 Urine microalbumin profile DTaP,Tdap,Td Vaccine (2 - Td or Tdap) [facility] Start: 06-23-2027 Diabetes Screening Diabetes Screening [facility] Start: 06-16-2027 Diabetes Screening Diabetes Screening [facility] Start: 06-02-2027 Diabetes Screening Diabetes Screening [facility] Start: 06-28-2025 BP Controlled (<130/80) BP Controlled (<130/80) [facility] in Start: 07-14-2024 End: 07-14-2024 ambulatory 07/14/2024 11:30 AM [facility] Hematology/Oncology [address] [place] [address] [place] [address] pump disconnect Hematology/Oncology Comment on above: pump disconnect Start: 07-12-2024 End: 10-11-2024 Carcinoembryonic Ag [Mass/volume] in Serum or Plasma CARCINOEMBRYONIC ANTIGEN Lab Routine Malignant neoplasm of ascending colon (HCC) Expected: 07/12/2024 (Approximate), Expires: 10/11/2024 [facility] Comment on above: Expected: 07/12/2024 (Approximate), Expi res: 10/11/2024 Start: 07-12-2024 End: 10-11-2024 CBC W Auto Differential panel - Blood COMPLETE BLOOD COUNT AND DIFFERENTIAL Lab Routine Malignant neoplasm of ascending colon (HCC) Expected: 07/12/2024 (Approximate), Expires: 10/11/2024 [facility] Comment on above: Expected: 07/12/2024 (Approximate), Expi res: 10/11/2024 Start: 07-12-2024 End: 10-11-2024 Comprehensive metabolic 2000 panel - Serum or Plasma COMPREHENSIVE METABOLIC PANEL Lab Routine Malignant neoplasm of ascending colon (HCC) Expected: 07/12/2024 (Approximate), Expires: 10/11/2024 [facility] Comment on above: Expected: 07/12/2024 (Approximate), Expi res: 10/11/2024 Start: 07-12-2024 End: 10-11-2024 Ferritin [Mass/volume] in Serum or Plasma FERRITIN Lab Routine Malignant neoplasm of ascending colon (HCC) Expected: 07/12/2024 (Approximate), Expires: 10/11/2024 [facility] Comment on above: Expected: 07/12/2024 (Approximate), Expi res: 10/11/2024 Start: 07-12-2024 End: 10-11-2024 Iron and Iron binding capacity panel - Serum or Plasma IRON AND TIBC Lab Routine Malignant neoplasm of ascending colon (HCC) Expected: 07/12/2024 (Approximate), Expires: 10/11/2024 [facility] Comment on above: Expected: 07/12/2024 (Approximate), Expi res: 10/11/2024 Start: 07-12-2024 End: 10-11-2024 MISC SEND OUT TST 1 MISC SEND OUT TST 1 Lab Routine Malignant neoplasm of ascending colon (HCC) Expected: 07/12/2024 (Approximate), Expires: 10/11/2024 [facility] Comment on above: Expected: 07/12/2024 (Approximate), Expi res: 10/11/2024 Start: 07-12-2024 End: 07-12-2024 Follow-up encounter Hematology/Oncology Comment on above: 2 week follow up with l;ab port draw adán motx folfox pump connect Start: 07-05-2024 IR PORTOCATH PLACEMENT IR PORTOCATH PLACEMENT Radiology Routine Malignant neoplasm of ascending colon (HCC) Expected: 07/05/2024 (Approximate) [facility] Work Phone: Comment on above: Expected: 07/05/2024 (Approximate) Start: 07-05-2024 End: 07-05-2024 Patient encounter procedure 07/05/2024 10:40 AM EST Office Visit Colorectal Surgery [address] [place] [address] 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, ACID FILLER.MICROPALEONTOLOGIST [address] [facility] [address] [place] [address] Post Op Lap RHC 06/14 [place] Colorectal Surgery Comment on above: Post Op Lap RHC 06/14 [place] Start: 06-30-2024 End: 06-30-2024 Patient encounter procedure 06/30/2024 3:40 PM EST Office Visit Colorectal Surgery [address] [facility] [address] [place], [place] [id number] 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, ACID FILLER.MICROPALEONTOLOGIST [address] [place] [address] Post Op Lap RHC 06/14 [place] Colorectal Surgery Comment on above: Post Op Lap RHC 06/14 [place] Start: 06-30-2024 End: 06-30-2024 Nursing evaluation of patient and report 06/30/2024 1:00 PM EST Nurse Visit Hematology/Oncology [address] [place] [address] [place] [address] Chelle Willis, RN [address] [place] [address] [place] [address] Chemo ed Folfox with pump connect Hematology/Oncology Comment on above: Chemo ed Folfox with pump connect Start: 06-28-2024 End: 06-28-2024 ambulatory 06/28/2024 11:00 AM EST Visit (SP) Office Hematology/Oncology [address] [place] [address] [place] [address] Joseph Bragg MD [address] [place] [address] [place] [address] Malignant neoplasm of ascending colon Hematology/Oncology Comment on above: Malignant neoplasm of ascending colon Start: 06-22-2024 End: 06-22-2024 Patient encounter procedure 06/22/2024 8:40 AM EST Office Visit Colorectal Surgery [address] [id number] [place] [address] [place], [place] [id number] Post Op surgical wound check Colorectal Surgery Comment on above: Post Op surgical wound check Start: 06-21-2024 End: 06-21-2024 Exploratory laparotomy celiotomy w/wo biopsy spx EXPLORATORY LAPAROTOMY Perioperative dehiscence of abdominal wound with evisceration 06/21/2024 3:00 PM EST [facility] OR Start: 06-14-2024 End: 06-14-2024 Admission to same day surgery center 06/14/2024 7:30 AM EST - 06/14/2024 11:45 AM EST Surgery [facility] [address] [address] [id number] [place] [address] [place] [address] LAPAROSCOPY COLECTOMY, PARTIAL, W/ REMOVAL TERMINAL ILEUM W/ ILEOCOLOSTOMY [facility] Comment on above: LAPAROSCOPY COLECTOMY, PARTIAL, W/ REMOV AL TERMINAL ILEUM W/ ILEOCOLOSTOMY Start: 06-14-2024 End: 06-14-2024 Laps colectomy prtl w/rmvl terminal ileum LAPAROSCOPY COLECTOMY, PARTIAL, W/ REMOVAL TERMINAL ILEUM W/ ILEOCOLOSTOMY Malignant neoplasm of ascending colon (HCC) 06/14/2024 7:30 AM EST [facility] OR Start: 06-14-2024 Subsequent hospital visit by physician [facility] Comment on above: Malignant neoplasm of ascending colon (H CC) [C18.2] Start: 06-08-2024 End: 06-08-2024 Admission to same day surgery center 06/08/2024 8:50 AM EST PAT Pre Anesthesia [address] [place] [address] surgery date 06/14 Pre Anesthesia Comment on above: surgery date 06/14 Start: 06-02-2024 End: 06-02-2024 ambulatory 06/02/2024 10:00 AM EST Results Only [facility] [address] [place] [address] [facility] Start: 06-02-2024 End: 06-02-2024 Patient encounter procedure Radiology Comment on above: CT CHEST/ABD/PELVIS Ct prep Abd/Pel/Chest Start: 05-25-2024 End: 08-24-2024 Carcinoembryonic Ag [Mass/volume] in Serum or Plasma CARCINOEMBRYONIC ANTIGEN Lab Routine Malignant neoplasm of ascending colon (HCC) Expected: 05/25/2024 (Approximate), Expires: 08/24/2024 [facility] Comment on above: Expected: 05/25/2024 (Approximate), Expi res: 08/24/2024 Start: 05-25-2024 End: 08-24-2024 CBC W Auto Differential panel - Blood COMPLETE BLOOD COUNT AND DIFFERENTIAL Lab Routine Malignant neoplasm of ascending colon (HCC) Expected: 05/25/2024 (Approximate), Expires: 08/24/2024 [facility] Work Phone: Comment on above: Expected: 05/25/2024 (Approximate), Expi res: 08/24/2024 Start: 05-25-2024 End: 08-24-2024 Comprehensive metabolic 2000 panel - Serum or Plasma COMPREHENSIVE METABOLIC PANEL Lab Routine Malignant neoplasm of ascending colon (HCC) Expected: 05/25/2024 (Approximate), Expires: 08/24/2024 [facility] Comment on above: Expected: 05/25/2024 (Approximate), Expi res: 08/24/2024 Start: 01-23-2024 Covid-19 Vaccine ( season) Covid-19 Vaccine ( season) [facility] Start: 01-23-2024 Influenza vaccination Influenza Vaccine (#1) [facility] Start: 2021 Pneumococcal Vaccine: 50+ (1 of 1 - PCV) Pneumococcal Vaccine: 50+ (1 of 1 - PCV) [facility] Start: 2021 Shingrix Vaccine (1 of 2) Shingrix Vaccine (1 of 2) [facility] Start: 02-18-2016 Diabetes Screening Diabetes Screening [facility] Start: 02-18-2016 Screening for malignant neoplasm of colon [facility] Start: 2006 Lipid panel Lipid Screening [facility] Start: 1990 Hepatitis B Vaccine (1 of 3 - 19+ 3-dose series) Hepatitis B Vaccine (1 of 3 - 19+ 3-dose series) [facility] Start: 1990 Urine microalbumin profile DTaP,Tdap,Td Vaccine (1 - Tdap) [facility] Start: 1989 Annual PCP Team Chronic Disease Visit Annual PCP Team Chronic Disease Visit [facility] Start: 1989 Anxiety Screening Anxiety Screening [facility] Start: 1989 BP Controlled (<130/80) BP Controlled (<130/80) [facility] in Start: 1989 Depression Screening Depression Screening [facility] Start: 1989 Hepatitis C screening Hepatitis C Screening [facility] Start: 1989 HIV screening HIV Screening [facility] End: 06-24-2025 CT Abdomen and Pelvis W contrast IV CT ABD/PEL W IVCON Radiology Routine Malignant neoplasm of ascending colon (HCC) 1 Occurrences starting 05/25/2024 until 06/24/2025 [facility] Comment on above: 1 Occurrences starting 05/25/2024 until 06/24/2025 CT Abdomen and Pelvi s W contrast IV CT ABD/PEL W IVCON Radiology Routine Malignant neoplasm of ascending colon (HCC) 06/02/2024 9:41 AM EST [facility] Work Phone: End: 06-24-2025 CT Chest W contrast IV CT CHEST W IVCON Radiology Routine Malignant neoplasm of ascending colon (HCC) 1 Occurrences starting 05/25/2024 until 06/24/2025 [facility] Comment on above: 1 Occurrences starting 05/25/2024 until 06/24/2025 CT Chest W contrast IV CT CHEST W IVCON Radiology Routine Malignant neoplasm of ascending colon (HCC) 06/02/2024 9:41 AM EST [facility] ECG COMPLETE [facility] Work Phone: Comment on above: Ordered: 06/08/2024 Laps colectomy prtl w/rmvl terminal ileum LAPAROSCOPY COLECTOMY, PARTIAL, W/ REMOVAL TERMINAL ILEUM W/ ILEOCOLOSTOMY Malignant neoplasm of ascending colon (HCC) [facility] Immunizations Immunization Date Immunization Notes Care Provider Fa ulisses 09-19-2020 SARS-CoV-2 (COVID-19 ) mRNA-1273 vaccine Jone HEDRICK [facility] Comment on above: Result Comment: 2023: [id number] 08-22-2020 SARS-CoV-2 (COVID-19 ) mRNA-1273 vaccine Jone HEDRICK [facility] Comment on above: Result Comment: 2023: [id number] 03-15-2018 influenza virus vaccine, unspecified formulation Donis Carias MD Work Phone: [facility] Payers Date Payer Category Payer Unknown MMO MMO [employer] PPO [id number] 2023-Present [phone] [address] [place] [address] PPO [id number] 2023 Self-pay 2018 Private Health Insurance 1971 Unknown [id number] 1971 Unknown [id number] 1971 Unknown [id number] 1971 Unknown [id number] 1971 Unknown [id number] 1971 Unknown [id number] 1971 Unknown [id number] 1971 Unknown [id number] 1971 Unknown [id number] 1959 Self-pay [id number] 1959 Unknown [id number] Unknown [employer] BC/BS [id number] Unknown [id number] Unknown [id number] Unknown [id number] Social History Date Type Detail Facility Tobacco smoking stat [facility] Unknown if ever smoked [facility] Work Phone: Start: 1970 Sex Assigned At Male [facility] Start: 04-25-2024 End: 05-25-2024 Tobacco smoking status Never smoked tobacco (finding) [facility] [place] Tobacco smoking status Smokeless tobacco user within last 30 days [facility] [place] Start: 05-25-2024 End: 06-02-2024 Sex Assigned At Male [facility] Start: 05-25-2024 Tobacco use and exposure User of smokeless tobacco [facility] History of tobacco use Chews Tobacco [facility] Start: 05-25-2024 End: 06-02-2024 History of Social function [facility] Start: 1970 Sex assigned at Not on file [facility] Start: 06-08-2024 End: 06-28-2024 Alcoholic beverage intake Ex-drinker (finding) [facility] Has the [employer], [employer], or [facility] [employer] threatened to shut off services in your home in past 12Mo No [facility] (I/We) worried [facility] (my/our) food would run out before (I/we) got money to buy more. Never true [facility] Functional Status Date Assessment Result Facility 06-28-2024 Functional Status N/A [facility] [place] 04-25-2024 Functional Status N/A [facility] [place] Clinical Notes 04-25-2024 to 06-30-2024 Telephone Encounter - Maria Luisa Montes - 06/30/2024 11:31 AM ESTTelephone Encounter - Maria Luisa Montes - 06/30/2024 11:31 AM ESTTelephone Encounter - Chelle Willis RN - 06/30/2024 10:23 AM EST Note Date & Type Note Facility 06-30-2024 Telephone encounter Note All appointments on 07/12/24 have been canceled Maria Luisa Montes PSS [facility] 06-30-2024 Miscellaneous Notes All appointments on 07/12/24 have been canceled Maria Luisa Montes PSS Voicemail received from pt's stating pt will be going to [place] to see their oncologist, and doesn't wish to follow up here. Please cancel appointments on 07/12. Call placed to to further assess. Message left requesting her to call our office back. Thanks Chelle Willis RN documented in this encounter [facility] 06-30-2024 Telephone encounter Note Voicemail received from pt's stating pt will be going to [place] to see their oncologist, and doesn't wish to follow up here. Please cancel appointments on 07/12. Call placed to to further assess. Message left requesting her to call our office back. Thanks Chelle Willis RN [facility] Work Phone: 06-29-2024 Note HNO ID: [id number] Author: CAMRYN BEAULIEU, Research Coordinator Service: ? Author Type: Research Type: Progress Notes Filed: 06/29/2024 08:26 Note Text: ---- Summary: [facility] Research Pre-Screening (IRB: [id number]) ---- Pipertalat Rodríguez was reviewed for potential clinical trial enrollment on [facility] #[id number] by the [facility] group on 06/29/24. Per initial review, patient has disease type Stage III CRC and appears to be preliminarily eligible and further testing/procedures required to determine final eligibility. Requesting democrat notified. No Study tasks were completed as a result of this initial review. Camryn Beaulieu, Research Coordinator [facility] 06-29-2024 History of Present illness Narrative Summary: [facility] Research Pre-Screening (IRB: [id number]) Piper Radertiffanie was reviewed for potential clinical trial enrollment on [facility] #[id number] by the [facility] group on 06/29/24. Per initial review, patient has disease type Stage III CRC and appears to be preliminarily eligible and further testing/procedures required to determine final eligibility. Requesting democrat notified. No Study tasks were completed as a result of this initial review. Camryn Beaulieu Research Coordinator documented in this encounter [facility] 06-29-2024 Note HNO ID: [id number] Author: MAYLIN CONTE APRN.MICROPALEONTOLOGIST Service: ? Author Type: Nurse Practitioner Type: Progress Notes Filed: 06/29/2024 08:29 Note Text: [facility] Multidisciplinary GI Tumor Board Primary Disease: [...] negative for invasive carcinoma Clinical Pathologic Stage: [id number] stage IIIB Recommendations: MMR studies pending. Referral [...] and alternatives to the various treatment options [facility] 06-28-2024 Note General Surgery Offi ce/Clinic Note Chief Complaint consultation for port insertion HPI Staff 54 year old male presents on consultation from Dr. Esteves for port placement; now seeing Dr. Bragg at [facility]. Patient with metastatic colon adenocarcinoma. Right colectomy completed 06/14/24. History of Present Illness 54 yo male recently diagnosed with cecal adenocarcinoma, s/p LS right colectomy at [facility] 06/14/24, stage IIIb adenocarcinoma; had wound dehiscence requiring fascial closure 06/21/24; now seeing Dr. Bragg at [facility]; referred for port placement; no previous port [...] (C18.9: Malignant neoplasm of colon, unspecified) plan flszht-v-bnte insertion under anesthesia, informed consent obtained. Ancef [...] (COVID-19) mRNA-1273 vaccine 08/22/2020 Recorded 2024-04-17: TPV40 [facility] Comment on above: Result Comment: Elec tronically Signed By: FLORIDALMA PATEL, Jone Bell\Date and Time Signed: 06/28/24 16:11 EST 06-28-2024 Note Addended by: JOSEPH CALHOUN on: 06/28/2024 11:30 AM Modules accepted: Orders [facility] 06-28-2024 Miscellaneous Notes Addended by: JOSEPH BRAGG on: 06/28/2024 11:30 AM Modules accepted: Orders documented in this encounter [facility] 06-28-2024 Instructions Joseph Bragg MD - 06/28/2024 11:13 AM EST Ordered port placement Chemo teach for FOLFOX F/u in 2 weeks documented in this encounter [facility] 06-28-2024 History of Present illness Narrative Images from the original note were not included. PATIENT NAME: Piper Rodríguez CLINIC NO.: [id number] ATTENDING PHYSICIAN: Joseph Bragg MD DATE OF SERVICE: June 28, [address] Don[facility] [address] [facility] [address] thank you for referring Piper Rodríguez for [...] Range Status 06/23/2024 12.7 % Final Abs Coryell Date Value Ref Range Status 06/23/2024 0.84 [...] in [address] Donis Carias [address] [facility] [address] thank you for allowing me to participate in Piper Rodríguez care, if there are any questions or concerns please do not hesitate to contact me at the number below. I spent a total of 60 minutes on the date of the service which included preparing to see the patient, [id number] patient care, completing clinical documentation, obtaining and/or reviewing separately obtained history, performing a medically appropriate examination, counseling and educating the patient/family/caregiver, ordering medications, tests, or procedures, communicating with other HCPs (not separately reported), independently interpreting results (not separately reported), communicating results to the patient/family/caregiver, and care coordination (not separately reported). Joseph Bragg MD. Hematology/Medical Oncology [facility] [phone] CC: documented in this encounter [facility] 06-28-2024 Note HNO ID: [id number] Author: JOSEPH BRAGG MD Service: ? Author Type: Physician Type: Progress Notes Filed: 06/28/2024 11:29 Note Text: PATIENT NAME: Piper Rodríguez [facility] NO.: [id number] ATTENDING PHYSICIAN: Joseph Bragg MD DATE OF SERVICE: June 28, [address] Donis Carias [address] [facility] [address] thank you for referring Piper Rodríguez for [...] pT3 pN1b. [employer]SI Pending Works in a [employer]. Grand mother has colon cancer. No smoking. [...] palpable breast johnny (more content not included)... [facility] 06-23-2024 Note HNO ID: [id number] Author: ELAYNE GONZALEZ LSW Service: Care Management Author Type: Meter Maker Type: Care Mgt Initial Assessment Filed: 06/23/2024 10:12 Note Text: ---- Summary: High Risk Readmission ---- CARE MANAGEMENT: ASSESSMENT AND DISCHARGE PLAN SERVICE DATE: June 23, 2024 SERVICE TIME: 9:30 PCP: Gen Peña MD Primary Contact: Extended Emergency Contact Information Primary Emergency Contact: Lisa Rodríguez Address: [address] [place] [address] Mobile Relation: Spouse Preferred language: YEMENI Service Order Clerk needed? No Admission Status: Inpatient Insurance Provider: O [facility] PPO Discharge Planning requested by: Per Department Practice Potential Transition Plans No Services Indicated Advance Directives Current Advance Directive: None Capsule Filling Machine Operator Attempted to Assist with AD Completion: Yes Action: Education Provided Current Living Arrangements and Support Lives with: Spouse/significant other Type of Residence: Private Residence (House) Support: Spouse/significant other How do you manage to accomplish the following: Independent: Ambulation;Transportation to appointments/community;Bathe/Shower;Dr ess;Meals/Meal Prep;Going to the bathroom;Medication Management Current Services/Equipment Current Post-Acute Service(s): None Discharge Planning Patient Goal(s): General wellness Clemmons of Choice Explained: Clemmons of Choice Given: No Reason Not Given: [...] : No HCPOA paperwok on file within [facility] and verified to be current as of date/time of this note Legal Next of Kin Hierarchy per [place] Revised Code: Legal Spouse Lisa [phone] Majority of Adult Children (consensus if possible) [...] DATE: June 23, 2024 TIME: 10:08 AM [facility] 06-23-2024 Note HNO ID: [id number] Author: DONIS CARIAS MD Service: Colorectal Author Type: Physician Type: Progress Notes Filed: 06/23/2024 13:40 Note Text: Documentation Query Please specify a diagnosis associated with the Clinical Indicators for this patient Obesity class 2 This document will become part of the patient's medical record. [facility] 06-22-2024 Note HNO ID: [id number] Author: MARY WORRELL RN Service: Nursing Author Type: Registered Nurse Type: Nursing Progress Note Filed: 06/22/2024 15:45 Note Text: 1545 report called to AR. [facility] 06-22-2024 Note HNO ID: [id number] Author: LASHONDA DELGADO MD Service: Colorectal Author Type: Resident Type: Progress Notes Filed: 06/22/2024 08:11 Note Text: COLORECTAL SURGERY PROGRESS NOTE Piper Rodríguez [id number] Patient Active Hospital Problem List: Perioperative dehiscence [...] and Airways Line Duration Peripheral 06/21/24 1500 [facility] Short Left Forearm 20 Gauge <1 day [...] Delgado MD General Surgery, PGY2 Please contact [phone] during the days for any questions. For nights and weekends, please contact [phone]. [facility] 06-21-2024 Note HNO ID: [id number] Author: JULIOCESAR ENRIQUE APRN.CREDIT CONTROL MANAGER Service: Anesthesiology Author Type: Nurse Java Tech Lead Type: Anesthesia Procedure Notes Filed: 06/21/2024 16:11 Note Text: ANESTHESIOLOGY PROCEDURE NOTE Airway General Information Procedure Start Time/Medication Administration: 06/21/2024 3:58 PM Procedure End Time: 06/21/2024 3:58 PM Patient location during procedure: OR Timeout Performed Pre-procedure: timeout performed Consent Obtained: Yes 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, care steam brush operator and patient Staffing CREDIT CONTROL MANAGER: Juliocesar Enrique APRN.CREDIT CONTROL MANAGER Performed by: EVIN Indications and Patient Condition [...] no Airway not difficult SIGNATURE: Juliocesar Enrique APRN.CREDIT CONTROL MANAGER PATIENT NAME: Piper Rodríguez DATE: June 21, 2024 TIME: 4:10 PM CSN: [id number] [facility] 06-21-2024 Telephone encounter Note Patient called [...] for his appointment tomorrow vs going to [facility]. Ultimately, he thinks he will go to [facility]. [facility] 06-21-2024 Miscellaneous Notes Patient called stating he [...] for his appointment tomorrow vs going to [facility]. Ultimately, he thinks he will go to [facility]. documented in this encounter [facility] 06-20-2024 Telephone encounter Note Returned call. Spoke with his . She said they went to their local ED. It was his bigger incision that opened. The ED doctor was asking them for Dr. Carias's contact information so he can communicate with her. Provided info to physician [facility] 06-20-2024 Miscellaneous Notes Returned call. Spoke with [...] they should go to local ER CB# [phone] documented in this encounter [facility] 06-20-2024 Telephone encounter Note Patient calling concerned about surgical incision. She states it has opened up. Asking to speak to nurse to find out if they should go to local ER CB# [phone] [facility] 06-19-2024 Telephone encounter Note Returned call. He would like to be able to return to the office for a few hours every other day. He asked for a note to allow him to do this. His job does not require any physical activity. Note sent through My Chart. [facility] 06-19-2024 Miscellaneous Notes Returned call. He would [...] what he can and cannot do CB# [phone] documented in this encounter [facility] 06-19-2024 Telephone encounter Note Patient had surgery on 06/14/24. He is asking to speak to a nurse about his restrictions and what he can and cannot do # [phone] [facility] 06-16-2024 Note HNO ID: [id number] Author: DONIS CARIAS MD Service: Colorectal Author [...] become part of the patient's medical record. [facility] 06-16-2024 Note HNO ID: [id number] Author: DAVON WATSON MD Service: Colorectal Author [...] PGY-6 Colorectal Surgery Resident Blue Team Pager: [phone] General Surgery Colorectal Surgery On-Call Pager: [phone](Weekends, Weekdays 6PM-6AM)` SUBJECTIVE: No acute issues overnight. [...] 0659 06/16/24 07 - 06/17/24 0659 Shift [id number] [id number] 1712-8352 24 Hour Total [id number] 7350-4218 7950-1038 24 Hour Total INTAKE Shift Total OUTPUT [...] 1.25* BUN 19 GLUC 105* CA 8.9 [facility] 06-15-2024 Note HNO ID: [id number] Author: GELY AKINS RN Service: Care Management Author Type: Registered Nurse Type: Care Mgt Initial Assessment Filed: 06/15/2024 11:22 Note Text: CARE MANAGEMENT: ASSESSMENT AND DISCHARGE PLAN SERVICE DATE: June 15, 2024 SERVICE TIME: 11:00am PCP: Gen Peña MD Primary Contact: Extended Emergency Contact Information Primary Emergency Contact: Lisa Rodríguez Address: [address] [place] [address] Mobile Relation: Spouse Preferred language: YEMENI Service Order Clerk needed? No Admission Status: Inpatient Insurance Provider: [employer] PPO Discharge Planning requested by: Per Department Practice Potential Transition Plans Home Advance Directives Current Advance Directive: None Capsule Filling Machine Operator Attempted to Assist with AD Completion: Yes [...] home, Independent living, Be able to drive Clemmons of Choice Explained: Clemmons of Choice Given: No Reason Not Given: [...] soon. Pt lives with spouse. 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 Pt reports he has good support system. Denies needs. No skilled needs identified. Spouse will transport home at discharge. CM remains available if needs arise. SIGNATURE: Gely Akins RN PATIENT NAME: Piper Rodríguez DATE: June 15, 2024 TIME: 11:20 AM [facility] 06-15-2024 Note HNO ID: [id number] Author: LASHONDA DELGADO MD Service: Colorectal Author [...] ---- COLORECTAL SURGERY PROGRESS NOTE Piper Rodríguez [id number] Patient Active Hospital Problem List: Malignant neoplasm [...] and Airways Line Duration Peripheral 06/14/24 0816 [facility] Left Antecubital 20 Gauge 1 day Peripheral [...] Delgado MD General Surgery, PGY2 Please contact [phone] during the days for any questions. For nights and weekends, please contact [phone]. [facility] 06-14-2024 Note HNO ID: [id number] Author: ANNABEL THACKER APRN.CREDIT CONTROL MANAGER Service: Nursing Author Type: Nurse Java Tech Lead Type: Anesthesia Procedure Notes Filed: 06/14/2024 09:22 Note Text: ANESTHESIOLOGY PROCEDURE NOTE PIV General Information Procedure Start Time/Medication Administration: 06/14/2024 9:02 AM Procedure End Time: 06/14/2024 9:02 AM Patient Location: OR Staffing CREDIT CONTROL MANAGER: Annabel Thacker APRN.CREDIT CONTROL MANAGER Performed by: CREDIT CONTROL MANAGER Preparation Sterility Preparation: hand hygiene performed prior to procedure, surgical cap used, mask used, skin prep agent completely dried prior to procedure Site Prep: chlorhexidine Procedure Details Indication: need for IV access Needle Size/Type: 20 gauge angiocath Orientation: Right Location: Hand Imaging Guidance Used: No SIGNATURE: Annabel Thacker APRN.CREDIT CONTROL MANAGER PATIENT NAME: Piper Rodríguez DATE: June 14, 2024 TIME: 9:20 AM CSN: [id number] [facility] 06-14-2024 Note HNO ID: [id number] Author: ANNABEL THACKER APRN.CREDIT CONTROL MANAGER Service: Nursing Author Type: Nurse Java Tech Lead Type: Anesthesia Procedure Notes Filed: 06/14/2024 09:20 Note Text: ANESTHESIOLOGY PROCEDURE NOTE Airway General Information Procedure Start Time/Medication Administration: 06/14/2024 8:59 AM Procedure End Time: 06/14/2024 8:59 AM Patient location during procedure: OR 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, care steam brush operator and patient Staffing Anesthesiologist: Ila Mortensen MD CREDIT CONTROL MANAGER: Annabel Thacker APRN.CREDIT CONTROL MANAGER Performed by: CREDIT CONTROL MANAGER Indications and Patient Condition Indications for airway [...] June 14, 2024 TIME: 9:19 AM CSN: [id number] [facility] 06-08-2024 Instructions Aubrey Baer PA-C - 06/08/2024 8:55 AM EST PATIENT PREOPERATIVE INSTRUCTIONS Donis Carias MD has scheduled you for your procedure at this surgery center: [facility]: [phone] --[phone] [address]. Please check in on the 1st floor [...] Procedures: - YOU MUST HAVE A RESPONSIBLE REAL ESTATE TEACHER TAKE YOU HOME. A KITCHEN AIDE OR MULTICULTURAL MANAGER CANNOT BE MADE A RESPONSIBLE REAL ESTATE TEACHER. - We recommend that a responsible person [...] Advance Directive, please fax a copy to [phone] or email to for it to be [...] chart that day documented in this encounter [facility] 06-08-2024 History and physical note HISTORY AND [...] 5 (+SHERIE, unable to tolerate CPAP ) [id number] Score: Age: <65 Sex: male CHF history: No Hypertension history: Yes Stroke/TIA/thromboembolism history: No Vascular disease history: No Diabetes history: No [id number] Score: 1 ARISCAT Score: Age: 51-80 Preoperative [...] fevers. Neuro: No history of TIA's, stroke, FARM PRODUCT PURCHASER tumor, impaired sensorium, hemiplegia, paraplegia or quadraplegia. [...] Piper Rodríguez DATE: 06/08/2024 TIME: 9:18 AM [facility] 06-08-2024 History and physical note HISTORY AND [...] 5 (+SHERIE, unable to tolerate CPAP ) [id number] Score: Age: <65 Sex: male CHF history: No Hypertension history: Yes Stroke/TIA/thromboembolism history: No Vascular disease history: No Diabetes history: No [id number] Score: 1 ARISCAT Score: Age: 51-80 Preoperative [...] fevers. Neuro: No history of TIA's, stroke, FARM PRODUCT PURCHASER tumor, impaired sensorium, hemiplegia, paraplegia or quadraplegia. [...] TIME: 9:18 AM documented in this encounter [facility] 06-05-[address] CAP reviewed with patient- no mets and will proceed with surgery as scheduled. Advised lifestyle changes for fatty liver and to follow up with PCP [facility] 06-05-[address] CAP reviewed with patient- no mets and will proceed with surgery as scheduled. Advised lifestyle changes for fatty liver and to follow up with PCP documented in this encounter [facility] 06-02-2024 History of Present illness Narrative Radiology [...] PATIENT PRESENTS WITH AN IMPLANTABLE OR ATTACHED INSTALLATION SUPERINTENDENT: No RADIOLOGY DEPARTMENT: CT; Exam(s) Completed: Chest Abdomen Pelvis PERIPHERAL IV DATA: Site assessment: Clean,Dry and Intact, Site disposition Discontinued SIGNED BY: RT Rhys(Kervin) June 02, 2024 9:36 AM documented in this encounter [facility] 06-02-2024 Note HNO ID: [id number] Author: EVENS NELSON RT(R) Service: Radiology Author [...] PATIENT PRESENTS WITH AN IMPLANTABLE OR ATTACHED INSTALLATION SUPERINTENDENT: No RADIOLOGY DEPARTMENT: CT; Exam(s) Completed: Chest Abdomen Pelvis PERIPHERAL IV DATA: Site assessment: Clean,Dry and Intact, Site disposition Discontinued SIGNED BY: MILADY Joiner) June 02, 2024 9:36 AM [facility] 06-02-2024 Nurse Note Radiology Service Progress [...] DATE: June 02, 2024 TIME: 8:53 AM [facility] 06-02-2024 Nurse Note Radiology Service Progress [...] SIGNATURE: Abilio Tang RN PATIENT NAME: Piper Rdoríguez DATE: June 02, 2024 TIME: 8:53 AM documented in this encounter [facility] 06-01-2024 Telephone encounter Note Spoke with patient. He was under the impression he could get his CT done in [place] and could have the images sent to Dr. Carias. We had a long discussion about the process to make that happen and my concerns that it would not be done in time to continue with his surgery on 06/14. He was agreeable to reschedule his CT at [facility] on 06/02/24. He will get his lab work done tomorrow prior to his CT. [facility] 06-01-2024 Miscellaneous Notes Spoke with patient. He was under the impression he could get his CT done in [place] and could have the images sent to Dr. Carias. We had a long discussion about the process to make that happen and my concerns that it would not be done in time to continue with his surgery on 06/14. He was agreeable to reschedule his CT at [place] on 06/02/24. He will get his lab work done tomorrow prior to his CT. 06/01 Patient called, stated that he wanted to cancel CT that was for 06/02 due to distance to appointment. Stated that will go to [facility] to [facility] CT done. Was wondering if able to go to [place] for CT? documented in this encounter [facility] 06-01-2024 Telephone encounter Note 06/01 Patient called, stated that he wanted to cancel CT that was for 06/02 due to distance to appointment. Stated that will go to [facility] to [facility] CT done. Was wondering if able to go to [place] for CT? [facility] 05-25-2024 History of Present illness Narrative COLORECTAL SURGERY CLINIC NOTE May 25, 2024 Piper Rodríguez 54 year old This consult was requested by Dr. Hedrick and my final recommendations will be communicated to the requesting health care provider by way of the shared medical record for internal providers or letter via the [employer] for external providers. Chief Complaint: [...] Colonoscopy 05/10/24 - Dr. Hedrick @ [facility] Scan on 05/16/2024 9:34 AM by Norma Magallanes: Seth Castro operative note (path pending) [id number] Pathology Scan on 05/22/2024 8:26 AM by Be Cloud: [facility] Pathology Report 05/11/24 COLON, Biopsy, Cecum: COLONIC TISSUE WITH INVASIVE ADENOCARCINOMA, MODERATELY DIFFERENTIATED, ULCERATION NOTED 2. COLON, Biopsy, Sigmoid: LARGE TUBULAR ADENOMA (>1 CM), NEGATIVE FOR HIGH GRADE DYSPLASIA, AREAS SHOWING CAUTERY ARTIFACT ARE POSITIVE FOR ADENOMATOUS GLANDS 3. COLON, Biopsy, Descending: TUBULAR ADENOMA. NEGATIVE FOR HIGH GRADE DYSPLASIA Colonoscopy 06/03/2018 - Dr Hedrick @ [facility] Scan on 05/15/2024 9:54 AM by Be [...] MD Colorectal Surgery documented in this encounter [facility] 05-25-2024 Note HNO ID: [id number] Author: DONIS CARIAS MD Service: ? Author Type: Physician Type: Progress Notes Filed: 05/25/2024 12:48 Note Text: COLORECTAL SURGERY CLINIC NOTE May 25, 2024 Piper Rodríguez 54 year old This consult was requested by Dr. Hedrick and my final recommendations will be communicated to the requesting health care provider by way of the shared medical record for internal providers or letter via the [employer] for external providers. Chief Complaint: [...] Magallanes: Seth Castro operative note (path pending) [id number] Pathology Scan on 05/22/2024 8:26 AM by Be Cloud: [facility] Pathology Report 05/11/24 COLON, Biopsy, Cecum: [...] or locally advanced, (more content not included)... [facility] 04-25-2024 Note General Surgery Offi ce/Clinic [...] Tobacco Use:. Smokele (more content not included)... [facility] Comment on above: Result Comment: Elec tronically Signed By: FLORIDALMA PATEL, Jone Bell\Date and Time Signed: 04/25/24 10:59 EST Evaluation + Plan note No data available for this section [facility] General Surgery [place] Evaluation note No assessment [facility] Phone: Evaluation note Diagnosis Malignant neoplasm of ascending colon (HCC)- Primary Malignant neoplasm of ascending colon [facility] Diagnosis Malignant neoplasm of ascending colon (HCC) Malignant neoplasm of ascending colon Malignant neoplasm of ascending colon (HCC) Malignant neoplasm of ascending colon documented in this encounter [facility] note* Diagnosis Pre-op evaluation- Primary Preoperative examination, [...] Assessment: BMI 38.78 [facility] Diagnosis Pre-op evaluation- Primary Preoperative examination, [...] of ascending colon documented in this encounter [facility] Discharge instructions No data available for this section [facility] General Surgery [place] Progress note No data available for this section [facility] Surgery [place] Reason for referral (narrative)* Outpatient Procedure (Routine) - New Request Specialty Diagnoses / Procedures Referred By Rneetta hinkle [facility] Diagnoses Pre-op evaluation Procedures ECG COMPLETE ECG ROUTINE ECG W/LEAST 12 LDS W/I&R Aubrey Baer PA-C [address] [place] [address] [facility] [address] [place] [address] Referral ID Status Reason Start Date Expiration Date Visits Requested Visits Authorized [id number] New Request Auto-Generat ed Referral 06/08/2024 06/08/2025 1 1 Healthcare System Summary Purpose Family History No Family History [...] HIGH MDM 60 [place] [address] [place] [address] Referral ID Status Reason Start Date Expiration Date Visits Requested Visits Authorized [id number] Authorized PCP Requested Referral 06/26/2024 06/26/2025 1 1 Specialty Diagnoses / Procedures Referred By Contac t Referred To Contact CT IMAGING Diagnoses Malignant neoplasm of ascending colon (HCC) Procedures CT CHEST W IVCON DIAGNOSTIC COMPUTED TOMOGRAPHY THORAX [place] [address] [place] [address] Ct Imaging [place] [address] Referral ID Status Reason Start Date Expiration Date Visits Requested Visits Authorized [id number] Authorized Auto-Generat ed Referral 05/25/2024 06/24/2025 1 1 Specialty Diagnoses / Procedures Referred By Contac t Referred To Contact CT IMAGING Diagnoses Malignant neoplasm of ascending colon (HCC) Procedures CT ABD/PEL W IVCON CT ABD & PELVIS [place] [address] [place] [address] Ct Imaging [place] [address] Referral ID Status Reason Start Date Expiration Date Visits Requested Visits Authorized [id number] Authorized Auto-Generat ed Referral 05/25/2024 06/24/2025 1 1 Additional Source Comments (unrecognized sect ion and content) No Status Records FoundNo Status Records FoundNo Status Records FoundNo Status Records FoundNo Status Records Found INFORMATION SOURCE (unrecogn ized section and content) DATE CREATED AUTHOR 07/18/2022 [facility] DATE CREATED AUTHOR AUTHOR'S ORGANIZ ATION 05/25/2024 [facility] DATE CREATED AUTHOR AUTHOR'S ORGANIZ ATION 06/30/2024 [facility] DATE CREATED AUTHOR AUTHOR'S ORGANIZ ATION 07/01/2024 [facility] DATE CREATED AUTHOR AUTHOR'S ORGANIZ ATION 07/03/2024 [facility] Care Teams (unrecognized sec tion and content) Team Status: Inactive Member Role Status Dates Gen Peña MD Attending Provider Active Sta rt: August 02, 2023 End: August 02, 2023 Team Status: Inactive Member Role Status Dates Kisha Esteves MD Attending Provider Active St art: September 13, 2023 End: September 13, 2023 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 Specialist Relationship Specialty Start Date End Date Gen Peña MD [address] [place] [address] PCP - General Family Medicine 05/15/24 Jone Hedrick MD [address] [place] [address] General Surgery 05/15/24 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 Specialist Relationship Specialty Start Date End Date Gen Peña MD [address] [place] [address] PCP - General Family Medicine 05/15/24 Jone Hedrick MD [address] [address] General Surgery 05/15/24 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 Specialist Relationship Specialty Start Date [place] Date [place] [address] [place] [address] PCP - General Family Medicine 05/15/24 Jone Hedrick MD [address] [address] General Surgery 05/15/24 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 Specialist Relationship Specialty Start Date End Date Gen Peña MD [address] [place] [address] PCP - General Family Medicine 05/15/24 Jone Hedrick MD [address] [address] General Surgery 05/15/24 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 Specialist Relationship Specialty Start Date End Date Gen Peña MD [address] [place] [address] PCP - General Family Medicine 05/15/24 Jone Hedrick MD [address] [place] [address] General Surgery 05/15/24 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 Specialist Relationship Specialty Start Date End Date Gen Peña MD [address] [place] [address] PCP - General Family Medicine 05/15/24 Jone Hedrick MD [address] [place] [address] General Surgery 05/15/24 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 Specialist Relationship Specialty Start Date End Date Gen Peña MD [address] [place] [address] PCP - General Family Medicine 05/15/24 Jone Hedrick MD [address] [place] [address] General Surgery 05/15/24 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 Specialist Relationship Specialty Start Date End Date Gen Peña MD [address] [place] [address] PCP - General Family Medicine 05/15/24 Jone Hedrick MD [address] [place] [address] General Surgery 05/15/24 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 Specialist Relationship Specialty Start Date End Date Gen Peña MD [address] [place] [address] PCP - General Family Medicine 05/15/24 Jone Hedrick MD [address] [place] [address] General Surgery 05/15/24 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 Specialist Relationship Specialty Start Date End Date Gen Peña MD [address] [place] [address] PCP - General Family Medicine 05/15/24 Jone Hedrick MD [address] [place] [address] General Surgery 05/15/24 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 Specialist Relationship Specialty Start Date End Date Gen Peña MD [address] [place] [address] PCP - General Family Medicine 05/15/24 Jone Hedrick MD [address] [place] [address] General Surgery 05/15/24 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 Specialist Relationship Specialty Start Date End Date Gen Peña MD [address] [place] [address] PCP - General Family Medicine 05/15/24 Jone Hedrick MD [address] [place] [address] General Surgery 05/15/24 Chelle Willis, RN [address] [facility] [place] [address] Specialty Lining Layer Hematology/Oncology 06/29/24 Joseph Bragg MD [address] [place] [address] Physician Hematology/Oncology 06/29/24 Goals (unrecognized section and [...] or prosecute any alcohol or drug abuse patient.[facility] the event this information is protected by the Federal Confidentiality of Alcohol and Drug Abuse Patient Records regulations: The Federal rules restrict any use of the information to criminally investigate or prosecute any alcohol or drug abuse patient.[facility] Hospital[facility] the event this information is protected by the Federal Confidentiality of Alcohol and Drug Abuse Patient Records regulations: The Federal rules restrict any use of the information to criminally investigate or prosecute any alcohol or drug abuse patient.[facility] Hospital[facility] the event this information is protected by the Federal Confidentiality of Alcohol and Drug Abuse Patient Records regulations: The Federal rules restrict any use of the information to criminally investigate or prosecute any alcohol or drug abuse patient.[facility] Hospital[facility] the event this information is protected by the Federal Confidentiality of Alcohol and Drug Abuse Patient Records regulations: The Federal rules restrict any use of the information to criminally investigate or prosecute any alcohol or drug abuse patient.[facility] Hospital[facility] the event this information is protected by the Federal Confidentiality of Alcohol and Drug Abuse Patient Records regulations: The Federal rules restrict any use of the information to criminally investigate or prosecute any alcohol or drug abuse patient.[facility] Hospital[facility] the event this information is protected by the Federal Confidentiality of Alcohol and Drug Abuse Patient Records regulations: The Federal rules restrict any use of the information to criminally investigate or prosecute any alcohol or drug abuse patient.[facility] HospitalIn the event this information is protected by the Federal Confidentiality of Alcohol and Drug Abuse Patient Records regulations: The Federal rules restrict any use of the information to criminally investigate or prosecute any alcohol or drug abuse patient.[facility] HospitalIn the event this information is protected by the Federal Confidentiality of Alcohol and Drug Abuse Patient Records regulations: The Federal rules restrict any use of the information to criminally investigate or prosecute any alcohol or drug abuse patient.[facility] Hospital[facility] the event this information is protected by the Federal Confidentiality of Alcohol and Drug Abuse Patient Records regulations: The Federal rules restrict any use of the information to criminally investigate or prosecute any alcohol or drug abuse patient.[facility] Hospital[facility] the event this information is protected by the Federal Confidentiality of Alcohol and Drug Abuse Patient Records regulations: The Federal rules restrict any use of the information to criminally investigate or prosecute any alcohol or drug abuse patient.[facility] HospitalIn the event this information is protected by the Federal Confidentiality of Alcohol and Drug Abuse Patient Records regulations: The Federal rules restrict any use of the information to criminally investigate or prosecute any alcohol or drug abuse patient.[facility] HospitalIn the event this information is protected by the Federal Confidentiality of Alcohol and Drug Abuse Patient Records regulations: The Federal rules restrict any use of the information to criminally investigate or prosecute any alcohol or drug abuse patient.[facility] Reason for Visit (unrecogniz ed section and content) Reason Comments Colon Cancer Reason Comments Patient Question Specialty Diagnoses / Procedures Referred By Renetta hinkle Referred To Contact CT IMAGING Diagnoses Malignant neoplasm of ascending colon (HCC) Procedures CT CHEST W IVCON DIAGNOSTIC COMPUTED TOMOGRAPHY THORAX [place] [address] [place] [id number] Ct Imaging [place] [address] Referral ID Status Reason Start Date Expiration Date V isits Requested Visits Authorized [id number] Closed Auto-Generate d Referral 05/25/2024 06/24/2025 1 1 Reason Comments Pre-Op Exam Reason Comments Post Op Reason Comments Colon Cancer New patient consult Specialty Diagnoses / Procedures Referred By Renetta t Referred To Contact Oncology Diagnoses Malignant neoplasm of ascending colon (HCC) Procedures CONSULT TO ONCOLOGY OFFICE/OUTPATIENT NEW HIGH MDM 60 [place] [address] [place] [id number] Referral ID Status Reason Start Date Expiration Date V isits Requested Visits Authorized [id number] Closed PCP Requested Referral 06/26/2024 06/26/2025 1 [...] BE BASED ON THE PRIMARY CLINICAL RECORDS. [employer] provides no warranty or guarantee of the accuracy or completeness of information in this document.
[2024-07-05 11:17] VITALS: BP 145/92; PULSE 73; TEMP 36.2; O2SAT 98; BMI 35.9
[2024-07-05] MEDS: 0.9 % SODIUM CHLORIDE 500 ML 50 ML IV (11:31)
--- NOTE | 2024-07-05 13:30 | FL_ITS ---
The [address] [address] Patient Name: PIPER RODRÍGUEZ MRN: [id number] date: 1970 Sex: M Assigned [facility] Current Patient Location: Accession/Order Number: [id number] Exam Date: 07/05/2024 14:03 Report Date: 07/07/2024 08:20 At the request of: JONE HEDRICK Procedure: FL fluoroscopy <1hr NON-READ EXAM: FL fluoroscopy <1hr NON-READ HISTORY: TECHNIQUE: FINDINGS: Please see Operative Report. Electronically authenticated by: RADIOLOGIST NO Date: 07/07/2024 08:20
[2024-07-05] MEDS: CEFAZOLIN SODIUM 2 GM/50 ML D5W PREMIX IV (14:02)
[2024-07-05] MEDS: BUPIVACAINE HCL 0.5% PF 50 MG/10 ML VIAL INJ (14:21)
[2024-07-05] MEDS: HEPARIN SODIUM (PORCINE) PF LOCK FLUSH 500 UNIT/5 ML SYRINGE INJ (14:35)
[2024-07-05 15:16] VITALS: BP 117/71; PULSE 68; TEMP 36.2; O2SAT 96
--- NOTE | 2024-07-05 15:20 | XR_ITS ---
The [address] [address] Patient Name: PIPER RODRÍGUEZ MRN: [id number] date: 1970 Sex: M Assigned [facility]/Order Number: [id number] Exam Date: 07/05/2024 15:30 Report Date: 07/05/2024 15:52 At the request of: JONE HEDRICK Procedure: XR chest 1V EXAMINATION: XR chest 1V HISTORY: s/p [id number] insertion COMPARISON: 08/02/2023 TECHNIQUE: AP portable FINDINGS: LUNGS: No significant pulmonary parenchymal abnormalities. VASCULATURE: No increased pulmonary vasculature. PLEURA: No pneumothorax, effusion, or pleural thickening. CARDIAC: No cardiomegaly or cardiac silhouette abnormality. MEDIASTINUM: No visible mass or adenopathy. BONES: No fracture or visible bone lesion. OTHER: Right single lumen Port-A-Cath projects over the mid superior vena cava XR/XR chest 1V IMPRESSION: Right Port-A-Cath placement with no pneumothorax. Electronically authenticated by: HILDA SONG Date: 07/05/2024 15:52
[2024-07-05 15:31] VITALS: BP 119/84; PULSE 63; O2SAT 96
[2024-07-05 15:46] VITALS: PULSE 68; TEMP 36.1; O2SAT 96
== END 2024-07-05 15:50 | disposition home or self-care (01) ==
PROVIDERS: PCP Family Medicine; Visit Provider Surgery
PROC: (CPT 532; principal; 2024-07-05 12:05)
DX: C18.9 Malignant neoplasm of colon, unspecified (principal); Z90.49 Acquired absence of other specified parts of digestive tract; G47.33 Obstructive sleep apnea (adult) (pediatric); J45.909 Unspecified asthma, uncomplicated; E78.5 Hyperlipidemia, unspecified; I10 Essential (primary) hypertension
CPT/HCPCS: 36561; 71045; 76000; C1788; J0665; J0690; J1642; J2250; J2704; J3010

== ENCOUNTER 2024-07-18 07:30 | Outpatient (RCR) | payer OTHER, SELFPAY ==
[2024-07-18 09:13] LABS: Basophils Percent Auto 0.6 % (0.2-2.0); Eosinophils Absolute Auto 0.6 10^3/uL (0.0-0.7); Eosinophils Percent Auto 8.6 % (0.9-7.0); Hematocrit 47.6 % (42.0-54.0); Hemoglobin 15.6 g/dL (14.0-18.0); Immature Granulocytes Abs Auto 0.02 10^3/uL (0.00-0.03); Immature Granulocytes Pct Auto 0.3 % (0.0-0.5); Lymphocytes Absolute Auto 1.4 10^3/uL (1.2-3.8); Lymphocytes Percent Auto 20.4 % (20.5-60.0); Mean Corpuscular HGB Conc 32.8 g/dL (29.9-35.2); Mean Corpuscular Hemoglobin 30.2 pg (25.9-34.0); Mean Corpuscular Volume 92.1 fL (80.0-94.0); Mean Platelet Volume 10.9 fL (9.5-13.5); Monocytes Absolute Auto 0.6 10^3/uL (0.3-0.8); Monocytes Percent Auto 9.7 % (1.7-12.0); Neutrophils Percent Auto 60.4 % (43.0-75.0); Platelet Count 161 10^3/uL (150-450); Red Blood Count 5.17 10^6/uL (4.70-6.10); Red Cell Distribution Width 14.1 % (11.0-15.0); White Blood Count 6.6 10^3/uL (4.0-11.0)
[2024-07-18 09:33] LABS: Alanine Aminotransferase 100 U/L (16-63); Albumin Globulin Ratio 0.9; Albumin Level 3.9 g/dL (3.4-5.0); Alkaline Phosphatase 125 U/L (46-116); Anion Gap 14.7; Aspartate Amino Transferase 71 U/L (15-37); BUN Creatinine Ratio 13.9; Bilirubin Total 0.7 mg/dL (0.2-1.0); Calcium 9.8 mg/dL (8.5-10.1); Carbon Dioxide 25.4 mmol/L (21.0-32.0); Chloride 103 mmol/L (98-107); Estimated GFR (African America >60 (>=60 mL/min/1.73m^2); Estimated GFR (Non-African Ame >60 (>=60 mL/min/1.73m^2); Globulin 4.4 g/dL; Glucose 118 mg/dL (74-106); Potassium 5.1 mmol/L (3.5-5.1); Sodium 138 mmol/L (136-145); Total Protein 8.3 g/dL (6.4-8.2)
[2024-07-18 09:36] LABS: Percent Iron Saturation 17.4 %
[2024-07-19 04:07] LABS: Vitamin B12 597 pg/mL (232-1245)
[2024-07-19 05:08] LABS: CEA 2.5 ng/mL (0.0-4.7)
== END 2024-07-19 08:28 | disposition home or self-care (01) ==
LOC: HEMC 07:30
PROVIDERS: PCP Family Medicine; Visit Provider Internal Medicine Hematology & Oncology
DX: C18.0 Malignant neoplasm of cecum (principal); D61.818 Other pancytopenia; D50.9 Iron deficiency anemia, unspecified; K90.9 Intestinal malabsorption, unspecified; D64.9 Anemia, unspecified; D72.819 Decreased white blood cell count, unspecified; R11.2 Nausea with vomiting, unspecified; Z96.643 Presence of artificial hip joint, bilateral; Z87.891 Personal history of nicotine dependence; I10 Essential (primary) hypertension; R79.89 Other specified abnormal findings of blood chemistry
CPT/HCPCS: 36415; 80053; 82378; 82607; 82728; 83540; 83550; 85025; 99211; G0463

== ENCOUNTER 2024-08-10 07:36 | Outpatient (RCR) | payer OTHER, SELFPAY ==
[2024-07-25 08:38] VITALS: BP 116/73; PULSE 78; TEMP 36.3; O2SAT 96
[2024-07-25 08:45] LABS: Basophils Absolute Auto 0.1 10^3/uL (0.0-0.1); Basophils Percent Auto 0.9 % (0.2-2.0); Eosinophils Absolute Auto 0.5 10^3/uL (0.0-0.7); Hematocrit 44.4 % (42.0-54.0); Hemoglobin 14.9 g/dL (14.0-18.0); Immature Granulocytes Abs Auto 0.03 10^3/uL (0.00-0.03); Immature Granulocytes Pct Auto 0.5 % (0.0-0.5); Lymphocytes Absolute Auto 1.2 10^3/uL (1.2-3.8); Mean Corpuscular HGB Conc 33.6 g/dL (29.9-35.2); Mean Corpuscular Hemoglobin 30.5 pg (25.9-34.0); Mean Platelet Volume 10.5 fL (9.5-13.5); Monocytes Absolute Auto 0.6 10^3/uL (0.3-0.8); Monocytes Percent Auto 10.8 % (1.7-12.0); Neutrophils Absolute Auto 3.5 10^3/uL (1.4-6.5); Neutrophils Percent Auto 59.8 % (43.0-75.0); Platelet Count 154 10^3/uL (150-450); Red Blood Count 4.88 10^6/uL (4.70-6.10); Red Cell Distribution Width 13.9 % (11.0-15.0); White Blood Count 5.8 10^3/uL (4.0-11.0)
[2024-07-25 09:06] LABS: Alanine Aminotransferase 66 U/L (16-63); Albumin Globulin Ratio 0.9; Albumin Level 3.7 g/dL (3.4-5.0); Alkaline Phosphatase 103 U/L (46-116); Aspartate Amino Transferase 40 U/L (15-37); BUN Creatinine Ratio 10.8; Bilirubin Total 0.7 mg/dL (0.2-1.0); Calcium 9.4 mg/dL (8.5-10.1); Carbon Dioxide 24.5 mmol/L (21.0-32.0); Chloride 101 mmol/L (98-107); Estimated GFR (African America >60 (>=60 mL/min/1.73m^2); Estimated GFR (Non-African Ame >60 (>=60 mL/min/1.73m^2); Globulin 4.1 g/dL; Glucose 117 mg/dL (74-106); Potassium 5.5 mmol/L (3.5-5.1); Sodium 133 mmol/L (136-145); Total Protein 7.8 g/dL (6.4-8.2)
[2024-07-25] MEDS: PALONOSETRON HCL 0.25 MG/5 ML VIAL IV (09:49)
[2024-07-25] MEDS: DEXAMETHASONE SODIUM PHOSPHATE 10 MG in 0.9 % SODIUM CHLORIDE 100 ML 303 MG IV (09:50)
[2024-07-25] MEDS: 0.9 % SODIUM CHLORIDE 250 ML 10 ML IV (10:00)
[2024-07-25] MEDS: DEXTROSE 5% IV (10:55)
[2024-07-25] MEDS: LEUCOVORIN CALCIUM IV (10:55)
[2024-07-25] MEDS: WATER IV (10:55)
--- NOTE | 2024-07-25 11:29 | PC.NURSE ---
tolerating infusions well. educated on each new drug as it is administered, and patient both present. Saw Straightener in and speaks with and patient regarding maintaining nutrition during chemotherearapy treatment.
[2024-07-25 11:31] VITALS: BP 107/67; PULSE 57; TEMP 36.1; O2SAT 93
[2024-07-25] MEDS: FLUOROURACIL 1,000 MG/20 ML VIAL 950 MG IVP (13:01)
[2024-07-25] MEDS: FLUOROURACIL IV (13:10)
[2024-07-25] MEDS: SODIUM CHLORIDE 0.9% IV (13:10)
--- NOTE | 2024-07-25 17:44 | NUTR.NU ---
Visited w/pt during chemo treatment; pt w/colon Ca, GI pain, malabsorption, constipation. He also has a sx wound that increases his nutrient requirements. Pt generally has a peanut butter/banana smoothie for breakfast, a PRO bar mid-morning, a light lunch, and supper with his . Encouraged pt to eat small, frequent meals including protein at each to maintain muscle mass and aid wound healing. Provided handouts: ? Food Ideas for Cancer Patients ? pt just beginning chemo, discussed common GI issues and hints for avoiding/mediating symptoms. Planning Healthy Meals ? encouraged a balanced diet. Obtained 24-hr recall; pt & endeavoring to improve diet and ?eat clean.? Low-Fiber Nutrition Therapy ? to aid absorption and alleviate GI pain. Provided Dietitian contact information for questions or concerns that may arise.
[2024-07-27] MEDS: HEPARIN SODIUM (PORCINE) PF LOCK FLUSH 500 UNIT/5 ML SYRINGE IV (11:35)
[2024-08-08 08:28] VITALS: BP 110/69; PULSE 64; TEMP 36.1; O2SAT 97
[2024-08-08 08:40] LABS: Basophils Percent Auto 0.5 % (0.2-2.0); Eosinophils Absolute Auto 0.1 10^3/uL (0.0-0.7); Eosinophils Percent Auto 2.3 % (0.9-7.0); Hematocrit 41.8 % (42.0-54.0); Immature Granulocytes Abs Auto 0.01 10^3/uL (0.00-0.03); Immature Granulocytes Pct Auto 0.2 % (0.0-0.5); Lymphocytes Absolute Auto 1.2 10^3/uL (1.2-3.8); Mean Corpuscular HGB Conc 33.5 g/dL (29.9-35.2); Mean Corpuscular Volume 92.5 fL (80.0-94.0); Mean Platelet Volume 10.5 fL (9.5-13.5); Monocytes Absolute Auto 0.7 10^3/uL (0.3-0.8); Monocytes Percent Auto 12.2 % (1.7-12.0); Neutrophils Absolute Auto 3.9 10^3/uL (1.4-6.5); Neutrophils Percent Auto 64.8 % (43.0-75.0); Platelet Count 138 10^3/uL (150-450); Red Blood Count 4.52 10^6/uL (4.70-6.10); Red Cell Distribution Width 13.6 % (11.0-15.0)
[2024-08-08 08:57] LABS: Alanine Aminotransferase 40 U/L (16-63); Albumin Globulin Ratio 0.9; Albumin Level 3.3 g/dL (3.4-5.0); Alkaline Phosphatase 85 U/L (46-116); Anion Gap 10.9; Aspartate Amino Transferase 34 U/L (15-37); BUN Creatinine Ratio 11.9; Bilirubin Total 0.5 mg/dL (0.2-1.0); Calcium 8.7 mg/dL (8.5-10.1); Carbon Dioxide 26.6 mmol/L (21.0-32.0); Chloride 102 mmol/L (98-107); Estimated GFR (African America >60 (>=60 mL/min/1.73m^2); Estimated GFR (Non-African Ame >60 (>=60 mL/min/1.73m^2); Globulin 3.8 g/dL; Glucose 110 mg/dL (74-106); Potassium 4.5 mmol/L (3.5-5.1); Sodium 135 mmol/L (136-145); Total Protein 7.1 g/dL (6.4-8.2)
[2024-08-08] MEDS: PALONOSETRON HCL 0.25 MG/5 ML VIAL IV (09:55)
[2024-08-08] MEDS: SODIUM CHLORIDE 0.9% IV (09:55)
[2024-08-08] MEDS: DEXAMETHASONE IV (09:55)
[2024-08-08] MEDS: DEXTROSE 5 % IN WATER 250 ML 10 ML IV (10:00)
[2024-08-08] MEDS: WATER IV (10:50)
[2024-08-08] MEDS: LEUCOVORIN CALCIUM IV (10:50)
[2024-08-08] MEDS: DEXTROSE 5% IV (10:50)
[2024-08-08] MEDS: FLUOROURACIL 1,000 MG/20 ML VIAL 950 MG IVP (13:13)
--- NOTE | 2024-08-08 15:58 | PC.NURSE ---
1313 5FU pump applied to tristan extension set. both clamps open, placed in carrying pack. educated on need to return in 46 hours for pump removal. verbalizes understanding. released ambulatory
[2024-08-10 08:45] VITALS: BP 115/80; PULSE 63; TEMP 36.5; O2SAT 96
[2024-08-10] MEDS: HEPARIN SODIUM (PORCINE) PF LOCK FLUSH 500 UNIT/5 ML SYRINGE IV (08:55)
== END 2024-08-14 10:18 | disposition home or self-care (01) ==
LOC: HEMC 07:36
PROVIDERS: PCP Family Medicine; Visit Provider Internal Medicine Hematology & Oncology
DX: C18.0 Malignant neoplasm of cecum (principal); D50.9 Iron deficiency anemia, unspecified; D61.818 Other pancytopenia; K90.9 Intestinal malabsorption, unspecified; R11.2 Nausea with vomiting, unspecified; D64.9 Anemia, unspecified; I10 Essential (primary) hypertension; C77.9 Secondary and unspecified malignant neoplasm of lymph node, unspecified; K76.0 Fatty (change of) liver, not elsewhere classified; Z96.643 Presence of artificial hip joint, bilateral; Z87.891 Personal history of nicotine dependence; F10.90 Alcohol use, unspecified, uncomplicated
CPT/HCPCS: 36591; 80053; 85025; 96367; 96368; 96375; 96411; 96413; 96415; 96416; G0463; J0640; J1100; J1642; J2469; J9190; J9263

== ENCOUNTER 2024-08-24 11:18 | Outpatient (OUT) | payer OTHER, SELFPAY | END 2024-08-24 11:19 | disposition home or self-care (01) | LOC: CARD 11:19 | PROVIDERS: PCP Family Medicine; Visit Provider Family Medicine | DX: R00.1 Bradycardia, unspecified (principal) | CPT/HCPCS: 93242 ==

== ENCOUNTER 2024-09-19 07:29 | Outpatient (RCR) | payer OTHER, SELFPAY ==
[2024-08-22 08:47] VITALS: BP 103/70; PULSE 61; TEMP 36.3; O2SAT 92
[2024-08-22 08:53] LABS: Basophils Percent Auto 0.4 % (0.2-2.0); Eosinophils Absolute Auto 0.1 10^3/uL (0.0-0.7); Hematocrit 42.6 % (42.0-54.0); Hemoglobin 14.1 g/dL (14.0-18.0); Immature Granulocytes Abs Auto 0.01 10^3/uL (0.00-0.03); Immature Granulocytes Pct Auto 0.2 % (0.0-0.5); Lymphocytes Absolute Auto 1.5 10^3/uL (1.2-3.8); Lymphocytes Percent Auto 32.9 % (20.5-60.0); Mean Corpuscular HGB Conc 33.1 g/dL (29.9-35.2); Mean Corpuscular Hemoglobin 30.3 pg (25.9-34.0); Mean Corpuscular Volume 91.6 fL (80.0-94.0); Mean Platelet Volume 10.8 fL (9.5-13.5); Monocytes Absolute Auto 0.6 10^3/uL (0.3-0.8); Monocytes Percent Auto 12.6 % (1.7-12.0); Neutrophils Absolute Auto 2.4 10^3/uL (1.4-6.5); Neutrophils Percent Auto 51.9 % (43.0-75.0); Platelet Count 122 10^3/uL (150-450); Red Blood Count 4.65 10^6/uL (4.70-6.10); Red Cell Distribution Width 14.1 % (11.0-15.0); White Blood Count 4.6 10^3/uL (4.0-11.0)
[2024-08-22 09:06] LABS: Alanine Aminotransferase 31 U/L (16-63); Albumin Globulin Ratio 0.8; Albumin Level 3.1 g/dL (3.4-5.0); Alkaline Phosphatase 86 U/L (46-116); Anion Gap 14.1; Aspartate Amino Transferase 26 U/L (15-37); BUN Creatinine Ratio 22.9; Bilirubin Total 0.4 mg/dL (0.2-1.0); Calcium 8.8 mg/dL (8.5-10.1); Carbon Dioxide 26.1 mmol/L (21.0-32.0); Chloride 102 mmol/L (98-107); Estimated GFR (African America >60 (>=60 mL/min/1.73m^2); Estimated GFR (Non-African Ame >60 (>=60 mL/min/1.73m^2); Globulin 3.9 g/dL; Glucose 108 mg/dL (74-106); Magnesium 2.4 mg/dL (1.8-2.4); Potassium 5.2 mmol/L (3.5-5.1); Sodium 137 mmol/L (136-145)
[2024-08-22] MEDS: 0.9 % SODIUM CHLORIDE 250 ML 10 ML IV (10:14)
[2024-08-22] MEDS: PALONOSETRON HCL 0.25 MG/5 ML VIAL IV (10:15)
[2024-08-22] MEDS: DEXAMETHASONE SODIUM PHOSPHATE 10 MG in 0.9 % SODIUM CHLORIDE 100 ML 303 MG IV (10:35)
--- NOTE | 2024-08-22 11:37 | PC.NURSE ---
1100 Dr Esteves in and examines. orders received. Ambulatory to radiology for chest po and lat.
[2024-08-22] MEDS: WATER IV ×2 (12:18)
[2024-08-22] MEDS: OXALIPLATIN IV (12:18)
[2024-08-22] MEDS: DEXTROSE 5% IV ×2 (12:18)
[2024-08-22] MEDS: LEUCOVORIN CALCIUM IV (12:18)
[2024-08-22 13:59] VITALS: BP 124/58; PULSE 38; TEMP 36.3
--- NOTE | 2024-08-22 14:36 | ECG_ITS ---
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 Measurements Intervals [place] Rate: 48 P: 28 AL: 194 QRS: -14 QRSD: 97 T: 36 QT: 448 QTc: 401 Interpretive Statements SINUS BRADYCARDIA LOW QRS VOLTAGE IN PRECORDIAL LEADS [QRS DEFLECTION < 1.0 mV IN CHEST LEADS] PATTERN CONSISTENT WITH PULMONARY DISEASE SEPTAL MYOCARDIAL INFARCTION [40+ ms Q WAVE IN V1/V2], PROBABLY OLD Abnormal ECG Compared to ECG 08/02/2023 07:55:50 Low QRS voltage now present Electronically Signed On 08-22-2024 20:21:56 EDT by FELICIANO HANSEN M.D.
[2024-08-22] MEDS: FLUOROURACIL 1,000 MG/20 ML VIAL 950 MG IVP (14:47)
[2024-08-22] MEDS: FLUOROURACIL IV (14:56)
[2024-08-22] MEDS: SODIUM CHLORIDE 0.9% IV (14:56)
--- NOTE | 2024-08-22 15:53 | PC.NURSE ---
1359 tolerating infusion without any issues. VS obtained found heart rate to be 38 via vital sign machine. Apical pulse 40. patient asymptomatic, see vital signs documentation. Patient denies any issues or complaints. Continuous pulse oximeter left on patient. oxalliplatin infused. 1415 pulse remains around 38-42, called for EKG 1430, by time EKG was obtained, heart rate 48 see 12 lead, shows sinus bradycardia. patient asymtpmatic, up ambulating around the department without complaints. 1445 patient vs 124/68 P 59 R18 ambulating around tolerating well. Dr Pratt notified of this asymptomatic finding, he said he will be ordering a holter monitor for patient.
--- NOTE | 2024-08-22 16:07 | PC.NURSE ---
1456 5FU chemo pump connected to tristan port. both clamps remain open, patient educated on observing to make sure both clamps are open, and return visit for removal. patient verbalizes understanding
[2024-08-24 11:05] VITALS: BP 100/48; PULSE 74; TEMP 36.2; O2SAT 95
[2024-08-24] MEDS: HEPARIN SODIUM (PORCINE) PF LOCK FLUSH 500 UNIT/5 ML SYRINGE IV (11:05)
[2024-09-05 08:20] VITALS: BP 128/76; PULSE 64; TEMP 36.2; O2SAT 95
--- NOTE | 2024-09-05 08:46 | PC.NURSE ---
0833: Dr. Esteves in for MD visit
[2024-09-05 08:47] LABS: Basophils Percent Auto 0.4 % (0.2-2.0); Eosinophils Absolute Auto 0.1 10^3/uL (0.0-0.7); Eosinophils Percent Auto 2.2 % (0.9-7.0); Hematocrit 40.1 % (42.0-54.0); Hemoglobin 13.8 g/dL (14.0-18.0); Immature Granulocytes Abs Auto 0.01 10^3/uL (0.00-0.03); Immature Granulocytes Pct Auto 0.2 % (0.0-0.5); Lymphocytes Absolute Auto 1.4 10^3/uL (1.2-3.8); Lymphocytes Percent Auto 29.4 % (20.5-60.0); Mean Corpuscular HGB Conc 34.4 g/dL (29.9-35.2); Mean Corpuscular Hemoglobin 30.7 pg (25.9-34.0); Mean Corpuscular Volume 89.3 fL (80.0-94.0); Mean Platelet Volume 10.5 fL (9.5-13.5); Monocytes Absolute Auto 0.6 10^3/uL (0.3-0.8); Monocytes Percent Auto 12.2 % (1.7-12.0); Neutrophils Absolute Auto 2.6 10^3/uL (1.4-6.5); Neutrophils Percent Auto 55.6 % (43.0-75.0); Platelet Count 84 10^3/uL (150-450); Red Blood Count 4.49 10^6/uL (4.70-6.10); Red Cell Distribution Width 14.7 % (11.0-15.0); White Blood Count 4.6 10^3/uL (4.0-11.0)
[2024-09-05 08:58] LABS: Alanine Aminotransferase 27 U/L (16-63); Albumin Globulin Ratio 0.8; Albumin Level 3.1 g/dL (3.4-5.0); Alkaline Phosphatase 96 U/L (46-116); Anion Gap 10.5; Aspartate Amino Transferase 29 U/L (15-37); BUN Creatinine Ratio 15.4; Bilirubin Total 0.6 mg/dL (0.2-1.0); Calcium 8.9 mg/dL (8.5-10.1); Carbon Dioxide 25.2 mmol/L (21.0-32.0); Chloride 103 mmol/L (98-107); Estimated GFR (African America >60 (>=60 mL/min/1.73m^2); Estimated GFR (Non-African Ame >60 (>=60 mL/min/1.73m^2); Globulin 4.1 g/dL; Glucose 142 mg/dL (74-106); Potassium 4.7 mmol/L (3.5-5.1); Sodium 134 mmol/L (136-145); Total Protein 7.2 g/dL (6.4-8.2)
[2024-09-05] MEDS: DEXTROSE 5 % IN WATER 250 ML 10 ML IV (09:25)
[2024-09-05] MEDS: PALONOSETRON HCL 0.25 MG/5 ML VIAL IV (10:04)
[2024-09-05] MEDS: DEXAMETHASONE SODIUM PHOSPHATE 10 MG in 0.9 % SODIUM CHLORIDE 100 ML 303 MG IV (10:04)
[2024-09-05] MEDS: LEUCOVORIN CALCIUM IV (10:28)
[2024-09-05] MEDS: WATER IV ×2 (10:28)
[2024-09-05] MEDS: OXALIPLATIN IV (10:28)
[2024-09-05] MEDS: DEXTROSE 5% IV ×2 (10:28)
--- NOTE | 2024-09-05 10:39 | PC.NURSE ---
1004: Pre-meds initiated at this time. Pt. denies needs or c/o. 1028: Oxaliplatin and Leucovorin initiated at this time. Pt without c/o or needs.
[2024-09-05 12:30] VITALS: BP 134/67; PULSE 37; TEMP 36.6; O2SAT 98
[2024-09-05] MEDS: FLUOROURACIL 500 MG/10 ML VIAL 475 MG IVP (12:37)
[2024-09-05] MEDS: FLUOROURACIL IV (12:48)
[2024-09-05] MEDS: SODIUM CHLORIDE 0.9% IV (12:48)
--- NOTE | 2024-09-05 15:00 | PC.NURSE ---
1028: IV Oxaliplatin and Leucovorin infusions initiated at this time. Pt. without c/o or needs. Declines snack or food. Drinking water. 1230: Above infusions completed without s&s of adverse reaction. VSS. HR 37, asymptomatic. Pt. relays HR dropped with last infusion as well, and asymptomatic. Denies syncope, n/v or other symptoms. 1237: 5-FU ivp given over 7 minutes, tolerated without c/o. 1255: 5-FU pump connected to port a cath, clamps undone. Instructed pt. to return 09/07 @ 11:00 am for pump removal. Pt. relays understanding. 1300: Pt d/c'd amb. to home.
[2024-09-07] MEDS: HEPARIN SODIUM (PORCINE) PF LOCK FLUSH 500 UNIT/5 ML SYRINGE IV (13:45)
[2024-09-12] MEDS: HEPARIN SODIUM (PORCINE) PF LOCK FLUSH 500 UNIT/5 ML SYRINGE IV (11:15)
[2024-09-12 11:44] LABS: Basophils Percent Auto 0.7 % (0.2-2.0); Eosinophils Absolute Auto 0.1 10^3/uL (0.0-0.7); Hematocrit 38.9 % (42.0-54.0); Hemoglobin 13.2 g/dL (14.0-18.0); Immature Granulocytes Abs Auto 0.01 10^3/uL (0.00-0.03); Immature Granulocytes Pct Auto 0.3 % (0.0-0.5); Lymphocytes Absolute Auto 1.3 10^3/uL (1.2-3.8); Lymphocytes Percent Auto 41.3 % (20.5-60.0); Mean Corpuscular HGB Conc 33.9 g/dL (29.9-35.2); Mean Corpuscular Hemoglobin 30.3 pg (25.9-34.0); Mean Corpuscular Volume 89.4 fL (80.0-94.0); Mean Platelet Volume 11.1 fL (9.5-13.5); Monocytes Absolute Auto 0.6 10^3/uL (0.3-0.8); Monocytes Percent Auto 18.5 % (1.7-12.0); Neutrophils Absolute Auto 1.1 10^3/uL (1.4-6.5); Neutrophils Percent Auto 36.2 % (43.0-75.0); Platelet Count 134 10^3/uL (150-450); Red Blood Count 4.35 10^6/uL (4.70-6.10); Red Cell Distribution Width 15.1 % (11.0-15.0)
--- NOTE | 2024-09-12 11:58 | PC.NURSE ---
1115: Pt. arrived for blood draw from implanted chest port to left anterior chest wall. Accessed without difficulty using aseptic technique. Brisk blood return noted and flushes easily. Waste drawn off per protocol; blood obtained; flushed with saline and heparin. De-accessed and folded 2x2 applied. Tolerated procedure well. Denies needs. Discharged ambulatory to private vehicle.
[2024-09-19 08:20] VITALS: BP 120/74; PULSE 62; TEMP 36.3; O2SAT 97
[2024-09-19 08:39] LABS: Basophils Percent Auto 0.4 % (0.2-2.0); Eosinophils Absolute Auto 0.1 10^3/uL (0.0-0.7); Eosinophils Percent Auto 2.2 % (0.9-7.0); Hematocrit 35.9 % (42.0-54.0); Hemoglobin 12.3 g/dL (14.0-18.0); Immature Granulocytes Abs Auto 0.02 10^3/uL (0.00-0.03); Immature Granulocytes Pct Auto 0.4 % (0.0-0.5); Lymphocytes Absolute Auto 1.2 10^3/uL (1.2-3.8); Lymphocytes Percent Auto 26.5 % (20.5-60.0); Mean Corpuscular HGB Conc 34.3 g/dL (29.9-35.2); Mean Corpuscular Hemoglobin 30.8 pg (25.9-34.0); Mean Corpuscular Volume 89.8 fL (80.0-94.0); Mean Platelet Volume 10.6 fL (9.5-13.5); Monocytes Absolute Auto 0.7 10^3/uL (0.3-0.8); Monocytes Percent Auto 14.7 % (1.7-12.0); Neutrophils Absolute Auto 2.5 10^3/uL (1.4-6.5); Neutrophils Percent Auto 55.8 % (43.0-75.0); Platelet Count 87 10^3/uL (150-450); Red Cell Distribution Width 17.1 % (11.0-15.0); White Blood Count 4.5 10^3/uL (4.0-11.0)
--- NOTE | 2024-09-19 09:02 | PC.NURSE ---
0902: Dr. Esteves in to see patient at chairside.
[2024-09-19 09:04] LABS: Alanine Aminotransferase 32 U/L (16-63); Albumin Globulin Ratio 0.8; Albumin Level 3.2 g/dL (3.4-5.0); Alkaline Phosphatase 89 U/L (46-116); Anion Gap 15.2; Aspartate Amino Transferase 41 U/L (15-37); BUN Creatinine Ratio 9.6; Bilirubin Total 0.5 mg/dL (0.2-1.0); Calcium 9.1 mg/dL (8.5-10.1); Carbon Dioxide 24.4 mmol/L (21.0-32.0); Chloride 101 mmol/L (98-107); Estimated GFR (African America >60 (>=60 mL/min/1.73m^2); Estimated GFR (Non-African Ame >60 (>=60 mL/min/1.73m^2); Globulin 3.9 g/dL; Glucose 113 mg/dL (74-106); Potassium 4.6 mmol/L (3.5-5.1); Sodium 136 mmol/L (136-145); Total Protein 7.1 g/dL (6.4-8.2)
--- NOTE | 2024-09-19 09:46 | PC.NURSE ---
Dr. Esteves reviews ECG's and Holter monitor report, reviews with pt. Chemo to be held today and will f/u with cardiology. Relays understanding.
[2024-09-19] MEDS: HEPARIN SODIUM (PORCINE) PF LOCK FLUSH 500 UNIT/5 ML SYRINGE IV (09:55)
== END 2024-09-20 23:59 | disposition home or self-care (01) ==
LOC: HEMC 07:29
PROVIDERS: PCP Family Medicine; Visit Provider Internal Medicine Hematology & Oncology
DX: Z51.11 Encounter for antineoplastic chemotherapy (principal); C18.0 Malignant neoplasm of cecum; D64.9 Anemia, unspecified; D61.818 Other pancytopenia; D50.9 Iron deficiency anemia, unspecified; K90.9 Intestinal malabsorption, unspecified; D72.819 Decreased white blood cell count, unspecified; R11.2 Nausea with vomiting, unspecified; R00.1 Bradycardia, unspecified
CPT/HCPCS: 36591; 71046; 80053; 83735; 85025; 93005; 93242; 96367; 96368; 96375; 96411; 96413; 96415; 96416; G0463; J0640; J1100; J1642; J2469; J9190; J9263

== ENCOUNTER 2024-09-22 12:47 | Outpatient (OUT) | payer OTHER, SELFPAY ==
--- NOTE | 2024-09-22 13:00 | CA_ITS ---
Patient Name: PIPER RODRÍGUEZ MR#: [id number] : 1970 Exam Date: 09/22/2024 Ordering Doctor: FRANKLIN VILLANUEVA ECHOCARDIOGRAM REPORT PROCEDURE: CA ECHO DOPPLER COMPLETE INDICATIONS: Dyspnea, bradycardia, cardiotoxic chemotherapy, hypertension COMPARISON: None. DESCRIPTION: COMPLETE ECHOCARDIOGRAM Real-time transthoracic echocardiography with 2D, M-mode, spectral and color flow Doppler performed. QUALITY: Technical quality was good. LEFT VENTRICLE: Normal chamber size. Mildly thickened septal wall proximally. Normal left ventricle systolic function without wall motion abnormalities, calculated left ventricular ejection fraction is 59%. Longitudinal strain -17.5% LV EF: Normal left ventricular ejection fraction 59% DIASTOLIC: Normal diastolic function. ATRIAL SEPTUM: Appears intact LEFT ATRIUM: Normal chamber size. RIGHT ATRIUM: Normal chamber size. RIGHT VENTRICLE: Normal chamber size. TRICUSPID VALVE: Normal mobility and thickness. No stenosis with trivial regurgitation. No evidence of pulmonary hypertension.RVSP 32 mmHg MITRAL VALVE: Normal mobility and thickness. No evidence of mitral valve stenosis. There is no mitral annular calcification. No mitral regurgitation. AORTIC VALVE: Normal trileaflet appearance. No visible sclerosis. Normal leaflet mobility. No evidence of aortic valve stenosis. No aortic regurgitation. AORTIC ROOT: Normal diameter and appearance. Ascending aorta is normal in size. PULMONIC VALVE: Normal thickness and mobility. No stenosis. No regurgitation. PERICARDIUM: No evidence of pericardial effusion. IVC: IVC is normal in size with normal collapse. PLEURA: CONCLUSION: Normal chamber size. Mildly thickened septal wall proximally. Normal left ventricle systolic function without wall motion abnormalities, calculated left ventricular ejection fraction is 59%. Longitudinal strain -17.5% Normal left ventricle diastolic function Normal right ventricular size and systolic function Normal right-sided pressures No significant valvular abnormalities Adult Echocardiography Procedure Report Left Ventricle LVEDD (3.7 - 5.6 cm): 4.55 cm LVESD (2.2 - 4.0 cm): 3.29 cm LVIVS thickness (0.6 - 1.2 cm): 1.23 cm LVPW thickness (0.5 - 1.0 cm): 1.05 cm e': 0.12 m/s E - e': 5.69 LVOT Max Gradient: 3.18 mm[Hg] LVOT Area (cm2): 0.89 m/s Peak Velocity (LVOT): 0.89 m/s Mean Velocity (LVOT): 0.59 m/s LVOT Diameter 2.63 cm Left Ventricular Ejection Fraction: Left Atrium LA Volume Index (2D A2C): 20.24 ml/m2 Left Atrium Systolic Dimension: 3.81 cm Mitral Valve MV E to A Ratio: 0.88 MV Max Gradient: MV Mean Gradient: Mitral Valve A-Wave Peak Velocity: 0.76 m/s Mitral Valve E-Wave Peak Velocity: 0.67 m/s Cardiovascular Orifice Area: Right Ventricle RV Internal Diastolic Dimension: Aorta AO Root Diam: 3.42 cm Ascending Ao Diam: 3.05 cm Aortic Valve AoV Area (Peak Bj): 4.32 cm2, 4.32 cm2 AoV Area (VTI): 4.47 cm2, 4.47 cm2 Deceleration [place]: Pressure Half-Time: Peak Velocity(Antegrade Flow): 1.12 m/s Peak Gradient(Antegrade Flow): 5.03 mm[Hg] Mean Velocity(Antegrade Flow): 0.66 m/s Mean Gradient(Antegrade Flow): 2.13 mm[Hg] Velocity Time Integral: 19.45 cm Tricuspid Valve Peak Velocity (Regurgitant Flow): 2.68 m/s Peak Velocity: Pulmonic Valve Mean Gradient: 2.11 mm[Hg], 2.54 mm[Hg] Mean Velocity: 0.66 m/s, 0.73 m/s Peak Velocity: 1.20 m/s Peak Gradient: 5.72 mm[Hg], 4.61 mm[Hg], 4.73 mm[Hg] Right Atrium Right Atrium Systolic Pressure: 40.81 ml, 40.81 ml Dictated by: Venice Hercules MD on 09/22/2024 at 16:55 Approved by: Venice Hercules MD on 09/22/2024 at 17:03
== END 2024-09-22 12:48 | disposition home or self-care (01) ==
LOC: CARD 12:48
PROVIDERS: PCP Family Medicine; Visit Provider Internal Medicine Hematology & Oncology
DX: Z51.11 Encounter for antineoplastic chemotherapy (principal); D64.9 Anemia, unspecified; D61.818 Other pancytopenia; D50.9 Iron deficiency anemia, unspecified; D72.819 Decreased white blood cell count, unspecified; C18.0 Malignant neoplasm of cecum; R11.2 Nausea with vomiting, unspecified
CPT/HCPCS: 93306; 93356

== ENCOUNTER 2024-09-26 13:33 | Outpatient (OUT) | payer OTHER, SELFPAY ==
--- NOTE | 2024-09-26 13:39 | CT_ITS ---
The [address] [address] Patient Name: PIPER RODRÍGUEZ MRN: [id number] date: 1970 Sex: M Assigned Patient Location: CT Current Patient Location: CT Accession/Order Number: [id number] Exam Date: 09/26/2024 14:18 Report Date: 09/26/2024 14:22 At the request of: FRANKLIN VILLANUEVA MD Procedure: CT abdomen pelvis w con CT CHEST, ABDOMEN AND PELVIS WITH INTRAVENOUS CONTRAST: CLINICAL HISTORY: Malignant Neoplasm Cecum, Nausea Vomiting, Anemia COMPARISON: CT chest, abdomen and pelvis 07/27/2023 TECHNIQUE: TECHNIQUE: Spiral images were obtained through the chest, abdomen and pelvis following the administration of IV contrast. This CT exam was performed using one or more following dose reduction techniques: Automated exposure control, adjustment of the mA and/or kV according to patient size, or use of iterative reconstruction technique. FINDINGS: CT chest: Mediastinum:Right-sided port is in place. Thoracic aorta appears normal in caliber. Pulmonary trunk appears nondilated. No pleural effusion. No lymphadenopathy. The esophagus is grossly unremarkable. Lungs:No consolidation pneumothorax or pleural effusion. Mild lung scarring. No suspicious pulmonary nodule seen on today's study. Soft tissues/Bones: No acute findings. Osseous structures demonstrate degenerative change. CT abdomen and pelvis: Organs:Hepatic steatosis. Gallbladder portal vein spleen pancreas and adrenal glands appear unremarkable. No enhancing renal mass or hydronephrosis. Abdominal aorta appears normal in caliber.[ GI: Stomach is grossly unremarkable. Small bowel appears nondilated. Right hemicolectomy changes. Remaining colon appears unremarkable.[ Pelvis:[Suboptimal evaluation due to streak hardware artifact from the patient's bilateral hip prostheses. No acute gross abnormality.] Peritoneum/Retroperitoneum:No free air or free fluid or lymphadenopathy.[ Abd wall/Bones:No acute findings. Osseous structures demonstrate degenerative change.[ CT/CT abdomen pelvis w con IMPRESSION: No evidence of tumor recurrence or metastatic disease within the chest, abdomen or pelvis. Impression dictated by: Grady Juarez Jr., D.O. 09/26/2024 2:22 PM Dictation Location: [place] [address] Electronically authenticated by: [id number] Y Date: 09/26/2024 14:22
--- NOTE | 2024-09-26 13:39 | CT_ITS ---
The [address] [address] Patient Name: PIPER RODRÍGUEZ MRN: [id number] date: 1970 Sex: M Assigned Patient Location: CT Current Patient Location: CT Accession/Order Number: [id number] Exam Date: 09/26/2024 14:18 Report Date: 09/26/2024 14:22 At the request of: FRANKLIN VILLANUEVA MD Procedure: CT abdomen pelvis w con CT CHEST, ABDOMEN AND PELVIS WITH INTRAVENOUS CONTRAST: CLINICAL HISTORY: Malignant Neoplasm Cecum, Nausea Vomiting, Anemia COMPARISON: CT chest, abdomen and pelvis 07/27/2023 TECHNIQUE: TECHNIQUE: Spiral images were obtained through the chest, abdomen and pelvis following the administration of IV contrast. This CT exam was performed using one or more following dose reduction techniques: Automated exposure control, adjustment of the mA and/or kV according to patient size, or use of iterative reconstruction technique. FINDINGS: CT chest: Mediastinum:Right-sided port is in place. Thoracic aorta appears normal in caliber. Pulmonary trunk appears nondilated. No pleural effusion. No lymphadenopathy. The esophagus is grossly unremarkable. Lungs:No consolidation pneumothorax or pleural effusion. Mild lung scarring. No suspicious pulmonary nodule seen on today's study. Soft tissues/Bones: No acute findings. Osseous structures demonstrate degenerative change. CT abdomen and pelvis: Organs:Hepatic steatosis. Gallbladder portal vein spleen pancreas and adrenal glands appear unremarkable. No enhancing renal mass or hydronephrosis. Abdominal aorta appears normal in caliber.[ GI: Stomach is grossly unremarkable. Small bowel appears nondilated. Right hemicolectomy changes. Remaining colon appears unremarkable.[ Pelvis:[Suboptimal evaluation due to streak hardware artifact from the patient's bilateral hip prostheses. No acute gross abnormality.] Peritoneum/Retroperitoneum:No free air or free fluid or lymphadenopathy.[ Abd wall/Bones:No acute findings. Osseous structures demonstrate degenerative change.[ CT/CT chest w con IMPRESSION: No evidence of tumor recurrence or metastatic disease within the chest, abdomen or pelvis. Impression dictated by: Grady Juarez Jr., D.O. 09/26/2024 2:22 PM Dictation Location: [employer] Electronically authenticated by: [id number] Y Date: 09/26/2024 14:22
== END 2024-09-26 13:34 | disposition home or self-care (01) ==
LOC: CT 13:34
PROVIDERS: PCP Family Medicine; Visit Provider Internal Medicine Hematology & Oncology
DX: C18.0 Malignant neoplasm of cecum (principal); D64.9 Anemia, unspecified; D61.818 Other pancytopenia; D50.9 Iron deficiency anemia, unspecified; K90.9 Intestinal malabsorption, unspecified; D72.819 Decreased white blood cell count, unspecified; R11.2 Nausea with vomiting, unspecified
CPT/HCPCS: 71260; 74177; Q9967

== ENCOUNTER 2024-10-10 07:29 | Outpatient (RCR) | payer OTHER, SELFPAY ==
[2024-09-26 08:29] LABS: Basophils Absolute Auto 0.1 10^3/uL (0.0-0.1); Basophils Percent Auto 1.5 % (0.2-2.0); Eosinophils Absolute Auto 0.2 10^3/uL (0.0-0.7); Eosinophils Percent Auto 4.9 % (0.9-7.0); Hematocrit 40.2 % (42.0-54.0); Hemoglobin 13.7 g/dL (14.0-18.0); Immature Granulocytes Abs Auto 0.01 10^3/uL (0.00-0.03); Immature Granulocytes Pct Auto 0.3 % (0.0-0.5); Lymphocytes Absolute Auto 1.2 10^3/uL (1.2-3.8); Lymphocytes Percent Auto 36.1 % (20.5-60.0); Mean Corpuscular HGB Conc 34.1 g/dL (29.9-35.2); Mean Corpuscular Hemoglobin 31.6 pg (25.9-34.0); Mean Corpuscular Volume 92.6 fL (80.0-94.0); Mean Platelet Volume 10.5 fL (9.5-13.5); Monocytes Absolute Auto 0.7 10^3/uL (0.3-0.8); Monocytes Percent Auto 22.6 % (1.7-12.0); Neutrophils Absolute Auto 1.1 10^3/uL (1.4-6.5); Neutrophils Percent Auto 34.6 % (43.0-75.0); Platelet Count 159 10^3/uL (150-450); Red Blood Count 4.34 10^6/uL (4.70-6.10); Red Cell Distribution Width 18.6 % (11.0-15.0); White Blood Count 3.3 10^3/uL (4.0-11.0)
[2024-09-26 08:44] LABS: Alanine Aminotransferase 44 U/L (16-63); Albumin Globulin Ratio 0.8; Albumin Level 3.5 g/dL (3.4-5.0); Alkaline Phosphatase 95 U/L (46-116); Anion Gap 14.4; Aspartate Amino Transferase 53 U/L (15-37); BUN Creatinine Ratio 8.9; Bilirubin Total 0.7 mg/dL (0.2-1.0); Calcium 9.2 mg/dL (8.5-10.1); Chloride 100 mmol/L (98-107); Estimated GFR (African America >60 (>=60 mL/min/1.73m^2); Estimated GFR (Non-African Ame >60 (>=60 mL/min/1.73m^2); Globulin 4.5 g/dL; Glucose 126 mg/dL (74-106); Potassium 4.4 mmol/L (3.5-5.1); Sodium 136 mmol/L (136-145)
[2024-09-26] MEDS: HEPARIN SODIUM (PORCINE) PF LOCK FLUSH 500 UNIT/5 ML SYRINGE IV (09:25)
[2024-10-10 09:21] LABS: Basophils Absolute Auto 0.1 10^3/uL (0.0-0.1); Basophils Percent Auto 1.1 % (0.2-2.0); Eosinophils Absolute Auto 0.1 10^3/uL (0.0-0.7); Eosinophils Percent Auto 2.8 % (0.9-7.0); Hematocrit 43.3 % (42.0-54.0); Hemoglobin 14.2 g/dL (14.0-18.0); Immature Granulocytes Abs Auto 0.01 10^3/uL (0.00-0.03); Immature Granulocytes Pct Auto 0.2 % (0.0-0.5); Lymphocytes Percent Auto 21.5 % (20.5-60.0); Mean Corpuscular HGB Conc 32.8 g/dL (29.9-35.2); Mean Corpuscular Hemoglobin 31.8 pg (25.9-34.0); Mean Corpuscular Volume 97.1 fL (80.0-94.0); Monocytes Absolute Auto 0.5 10^3/uL (0.3-0.8); Monocytes Percent Auto 11.5 % (1.7-12.0); Neutrophils Percent Auto 62.9 % (43.0-75.0); Platelet Count 113 10^3/uL (150-450); Red Blood Count 4.46 10^6/uL (4.70-6.10); Red Cell Distribution Width 17.9 % (11.0-15.0); White Blood Count 4.7 10^3/uL (4.0-11.0)
[2024-10-10 09:40] LABS: Alanine Aminotransferase 43 U/L (16-63); Albumin Globulin Ratio 0.7; Albumin Level 3.2 g/dL (3.4-5.0); Alkaline Phosphatase 81 U/L (46-116); Anion Gap 14.4; Aspartate Amino Transferase 46 U/L (15-37); BUN Creatinine Ratio 12.2; Bilirubin Total 0.6 mg/dL (0.2-1.0); Calcium 9.3 mg/dL (8.5-10.1); Carbon Dioxide 25.3 mmol/L (21.0-32.0); Chloride 103 mmol/L (98-107); Estimated GFR (African America >60 (>=60 mL/min/1.73m^2); Estimated GFR (Non-African Ame >60 (>=60 mL/min/1.73m^2); Globulin 4.5 g/dL; Glucose 111 mg/dL (74-106); Potassium 4.7 mmol/L (3.5-5.1); Sodium 138 mmol/L (136-145); Total Protein 7.7 g/dL (6.4-8.2)
== END 2024-10-11 08:01 | disposition home or self-care (01) ==
LOC: HEMC 07:29
PROVIDERS: PCP Family Medicine; Visit Provider Internal Medicine Hematology & Oncology
DX: Z00.00 Encounter for general adult medical examination without abnormal findings (principal); C18.0 Malignant neoplasm of cecum; D64.9 Anemia, unspecified; D61.818 Other pancytopenia; D50.9 Iron deficiency anemia, unspecified; D72.819 Decreased white blood cell count, unspecified; R11.2 Nausea with vomiting, unspecified; Z12.5 Encounter for screening for malignant neoplasm of prostate; R73.09 Other abnormal glucose; R53.83 Other fatigue
CPT/HCPCS: 36591; 71260; 74177; 80053; 80061; 83036; 84436; 84443; 84481; 85025; G0103; G0463; J1642; Q9967

== ENCOUNTER 2024-10-10 08:23 | Outpatient (RCR) | payer OTHER, SELFPAY ==
[2024-10-10 09:33] LABS: Estimated Average Glucose 120 mg/dL; Glycohemoglobin A1C 5.8 % (4.5-6.2)
[2024-10-10 09:53] LABS: Chol HDL Ratio 2.3; Cholesterol 169 mg/dL (<=200); Free T3 3.19 pg/mL (2.18-3.98); HDL Cholesterol 75 mg/dL (40-60); Thyroid Stimulating Hormone 0.917 uIU/mL (0.358-3.740); Triglycerides 43 mg/dL (<=150); VLDL CHOLESTEROL 8.6 mg/dL
[2024-10-10 10:51] LABS: Prostate Specific Antigen Scrn 0.46 ng/mL (<=4.00)
== END 2024-10-21 23:59 | disposition home or self-care (01) ==
LOC: INF 08:23
PROVIDERS: PCP Family Medicine; Visit Provider Family Medicine
DX: Z00.00 Encounter for general adult medical examination without abnormal findings (principal); Z12.5 Encounter for screening for malignant neoplasm of prostate; R73.09 Other abnormal glucose; R53.83 Other fatigue
CPT/HCPCS: 80061; 83036; 84436; 84443; 84481; G0103

== ENCOUNTER 2024-10-31 08:11 | Outpatient (RCR) | payer OTHER, SELFPAY ==
[2024-10-31 09:03] LABS: Basophils Absolute Auto 0.1 10^3/uL (0.0-0.1); Eosinophils Absolute Auto 0.2 10^3/uL (0.0-0.7); Eosinophils Percent Auto 2.9 % (0.9-7.0); Hemoglobin 14.8 g/dL (14.0-18.0); Immature Granulocytes Abs Auto 0.02 10^3/uL (0.00-0.03); Immature Granulocytes Pct Auto 0.4 % (0.0-0.5); Lymphocytes Percent Auto 18.9 % (20.5-60.0); Mean Corpuscular HGB Conc 33.6 g/dL (29.9-35.2); Mean Platelet Volume 9.7 fL (9.5-13.5); Monocytes Absolute Auto 0.6 10^3/uL (0.3-0.8); Monocytes Percent Auto 11.2 % (1.7-12.0); Neutrophils Absolute Auto 3.5 10^3/uL (1.4-6.5); Neutrophils Percent Auto 65.6 % (43.0-75.0); Platelet Count 143 10^3/uL (150-450); Red Blood Count 4.63 10^6/uL (4.70-6.10); Red Cell Distribution Width 14.6 % (11.0-15.0); White Blood Count 5.3 10^3/uL (4.0-11.0)
[2024-10-31 09:24] LABS: Alanine Aminotransferase 90 U/L (16-63); Albumin Globulin Ratio 0.8; Albumin Level 3.6 g/dL (3.4-5.0); Alkaline Phosphatase 83 U/L (46-116); Anion Gap 16.3; Aspartate Amino Transferase 85 U/L (15-37); BUN Creatinine Ratio 15.2; Bilirubin Total 0.6 mg/dL (0.2-1.0); Calcium 9.4 mg/dL (8.5-10.1); Carbon Dioxide 23.8 mmol/L (21.0-32.0); Chloride 96 mmol/L (98-107); Estimated GFR (African America >60 (>=60 mL/min/1.73m^2); Estimated GFR (Non-African Ame >60 (>=60 mL/min/1.73m^2); Globulin 4.4 g/dL; Glucose 109 mg/dL (74-106); Potassium 5.1 mmol/L (3.5-5.1); Sodium 131 mmol/L (136-145)
[2024-10-31] MEDS: HEPARIN SODIUM (PORCINE) PF LOCK FLUSH 500 UNIT/5 ML SYRINGE IV (10:10)
--- NOTE | 2024-10-31 10:14 | PC.NURSE ---
0845 rt chest port accessed per RReed using sterile technique, with #20 ga 3/4 inch tristan, excellent blood return obtained. flushed with ns as well as heparin lock flush. tolerated well. released ambulatoyr
[2024-11-01 08:08] LABS: CEA 3.9 ng/mL (0.0-4.7)
== END 2024-11-01 08:10 | disposition home or self-care (01) ==
LOC: HEMC 08:11
PROVIDERS: PCP Family Medicine; Visit Provider Internal Medicine Hematology & Oncology
DX: D64.9 Anemia, unspecified (principal); D61.818 Other pancytopenia; D50.9 Iron deficiency anemia, unspecified; K90.9 Intestinal malabsorption, unspecified; D72.819 Decreased white blood cell count, unspecified; C18.0 Malignant neoplasm of cecum; R11.2 Nausea with vomiting, unspecified
CPT/HCPCS: 36591; 80053; 82378; 83735; 85025; J1642

== ENCOUNTER 2024-12-19 08:51 | Outpatient (RCR) | payer OTHER, SELFPAY ==
[2024-11-21 09:26] LABS: Hematocrit 42.8 % (42.0-54.0); Hemoglobin 14.9 g/dL (14.0-18.0); Immature Granulocytes Abs Auto 0.01 10^3/uL (0.00-0.03); Immature Granulocytes Pct Auto 0.2 % (0.0-0.5); Lymphocytes Absolute Auto 1.2 10^3/uL (1.2-3.8); Mean Corpuscular HGB Conc 34.8 g/dL (29.9-35.2); Mean Corpuscular Hemoglobin 33.6 pg (25.9-34.0); Mean Corpuscular Volume 96.4 fL (80.0-94.0); Platelet Count 138 10^3/uL (150-450); Red Blood Count 4.44 10^6/uL (4.70-6.10); White Blood Count 4.5 10^3/uL (4.0-11.0)
[2024-11-21] MEDS: HEPARIN SODIUM (PORCINE) PF LOCK FLUSH 500 UNIT/5 ML SYRINGE IV (09:29)
[2024-11-21 09:31] LABS: Alanine Aminotransferase 87 U/L (16-63); Albumin Globulin Ratio 0.9; Albumin Level 3.7 g/dL (3.4-5.0); Alkaline Phosphatase 75 U/L (46-116); Anion Gap 16.7; Aspartate Amino Transferase 86 U/L (15-37); Blood Urea Nitrogen 10.0 mg/dL (7.0-18.0); Calcium 9.5 mg/dL (8.5-10.1); Carbon Dioxide 26.2 mmol/L (21.0-32.0); Chloride 98 mmol/L (98-107); Estimated GFR (African America >60 (>=60 mL/min/1.73m^2); Estimated GFR (Non-African Ame >60 (>=60 mL/min/1.73m^2); Globulin 4.3 g/dL; Glucose 88 mg/dL (74-106); Potassium 4.9 mmol/L (3.5-5.1); Sodium 136 mmol/L (136-145); Total Protein 8.0 g/dL (6.4-8.2)
[2024-12-19] MEDS: HEPARIN SODIUM (PORCINE) PF LOCK FLUSH 500 UNIT/5 ML SYRINGE IV (08:55)
== END 2024-12-21 23:59 | disposition home or self-care (01) ==
LOC: HEMC 08:51
PROVIDERS: PCP Family Medicine; Visit Provider Internal Medicine Hematology & Oncology
DX: D64.9 Anemia, unspecified (principal); D61.818 Other pancytopenia; D50.9 Iron deficiency anemia, unspecified; K90.9 Intestinal malabsorption, unspecified; D72.819 Decreased white blood cell count, unspecified; C18.0 Malignant neoplasm of cecum; R11.2 Nausea with vomiting, unspecified; I10 Essential (primary) hypertension; Z96.643 Presence of artificial hip joint, bilateral; F17.290 Nicotine dependence, other tobacco product, uncomplicated; F10.90 Alcohol use, unspecified, uncomplicated
CPT/HCPCS: 36591; 80053; 85025; 96523; G0463; J1642

== ENCOUNTER 2025-01-12 07:50 | Outpatient (OUT) | payer OTHER, SELFPAY ==
--- OUTSIDE RECORDS SUMMARY | 2024-11-21 05:00 | XMS_ITS ---
Author Organization The [facility] in [place] Address [address] [place] [address] Care Team Providers Care Sde Name Role Phone Nick Pratt Primary Care Provider Kisha Esteves Unavailable [phone] REASON FOR VISIT MD Encounters Encounter Location Date Provider Diagnosis The [facility] [address] [place] [phone] 11/21/2024 Kisha Esteves Plan Of Treatment Next Appt Details Provider Name:Kisha Esteves , 01/23/2025 08:30:00 AM, [address] [place] [address], [phone], Progress Notes * Regla MARTINEZOB:1970 ([age] yo M)Acc No.[id number]:11/21/2024 UNLOCKED PROGRESS NOTE Progress Notes Patient: Karolina ANNE Chad Provider: Ngozi Esteves M.D. :1970 A ge:54 Y S ex:Male Date:11/21/2024 Address:[facility] [place], [id number] Pcp:Nick Pratt Subjective: * Chief Complaints: * 1 . MD. * Medical History: Objective: * Vitals: Assessment: Plan: * Treatment: * * Electronic signature of Becka Esteves MD, [id number] on 01/12/2025 at 07:52 AM EDT Sign off status: Pending Visit Status: Magdi OBRIENG (Voice) * Provider: Ngozi Esteves M.D. Date: 0 11/21/2024 Generated for Lana lin/Nikolay/Reed on: 0 01/12/2025 07:52 AM EDT
--- OUTSIDE RECORDS SUMMARY | 2024-11-21 05:15 | XMS_ITS ---
Author Organization The [facility] in [place] Address [address] [place] [address] Care Team Providers Care Opener Tender Name Role Phone Nick Pratt Primary Care Provider Kisha Esteves Unavailable [phone] REASON FOR VISIT Dexamethasone Inj (Decadron, Dexa) IV Encounters Encounter Location Date Provider Diagnosis The [facility] On[facility] [address] [place] [phone] 11/21/2024 Kisha Esteves Plan Of Treatment Next Appt Details Provider Name:Kisha Esteves , 01/23/2025 08:30:00 AM, [address] [place] [address], [phone], Progress Notes * Regla MARTINEZOB:1970 ([age] yo M)Acc No.[id number]:11/21/2024 UNLOCKED PROGRESS NOTE Progress Note Patient: Karolina ANNE Chad Provider: Ngozi Esteves M.D. :1970 A ge:54 Y S ex:Male Date:11/21/2024 Address[address] [place], [place] Pcp:Nick Pratt Subjective: * Chief Complaints: * 1 . Dexamethasone Inj (Decadron, Dexa) IV. * Medical History: Objective: * Vitals: Assessment: Plan: * Treatment: * * Electronic signature of Becka Esteves MD, [id number] on 01/12/2025 at 07:52 AM EDT Sign off status: Pending Visit Status: C ANC (Cancelled) * Provider: Ngozi Esteves M.D. Date: 11/21/2024 Generated for Lana lin/Nikolay/Reed on: 0 01/12/2025 07:52 AM EDT
--- OUTSIDE RECORDS SUMMARY | 2025-01-03 07:16 | XMS_ITS ---
Author Organization The [facility] in [place] Address [address] [place] [address] Care Team Providers Care Public Health Technologist Name Role Phone AndrewchanellNick Primary Care Provider REASON FOR VISIT Edarbi Medications Medication SIG (Take, Route, Frequency, Duration) Notes Start Date End Date Status Edarbi 80 MG 1 tablet Orally Once a day for 90 days 03/30/2023 Active Encounters Encounter Location Date Provider Diagnosis [facility] [address] [place] [address] 01/03/2025 Nick Santa Plan Of Treatment Medication Medication Name Sig Start Date Stop Date Notes Edarbi 80 MG 1 tablet Orally Once a day for 90 days 2022 Next Appt Details Provider Name:Kisha Sarmientowla , 01/23/2025 08:30:00 AM, [address] [place], [address], Progress Notes * Regla MARTINEZOB:1970 ([age] yo M)Acc No.[id number]:01/03/2025 Patient: Karolina OBRIENEddie METCALF :1970 A ge:54 Y S ex:Male Address:[place], [address] * Refills Refill Edarbi Tablet, 80 MG, Orally, 90 Tablet, 1 tablet, Once a day, 90 days, Refills=3 * true * Date: Generated for Printi delia/Nikolay/Reed on: 0 01/12/2025 07:52 AM EDT
--- OUTSIDE RECORDS SUMMARY | 2025-01-11 13:00 | XMS_ITS | Encounter Summary ---
Author Organization [facility] Address [address] [place] [address] Care Team Providers Care Sand Sifter Name Role Phone Delta Pratt MD Primary Care Provider [phone] Geoffery Edmond MD Unavailable [phone] Natalie Willis RN Unavailable [phone] Joseph Bragg MD Unavailable [phone] Source Comments In the event this information is protected by the Federal Confidentiality of Alcohol and Drug AbusePatient Records regulations: The Federal rules restrict any use of the information to criminally investigate or prosecute any alcohol or drug abuse patient.[facility] Reason for Visit * Reason Comments Established Patient Follow-Up 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 Final Path: T3 N1b. Completed 4 cycles of adjuvant chemo. Encounter Details Date Type Department Care Team (Late st Contact Info) Description 01/11/2025 1:00 PM EDT Office Visit Colorectal Surgery [facility] [address] [place] [phone] [place] [address] [place] [phone] Incisional hernia, without obstruction or gangrene (Primary Dx) Social History Tobacco Use Types Packs/Day Years Used Date Smoking Tobacco: Never Passive Smoke Exposure: Past Smokeless Tobacco: Current Chew Alcohol Use Standard Drinks/Week Comments Not Currently 0 (1 standard drink = 0.6 oz pur e alcohol) [facility] Utilities Answer Date Recorded In the past 12 months has th e [employer], gas, oil, or water [employer] threatened to shut off services in your home? No 06/23/2024 Hunger Vital Sign Answer Date Recorded Within the past 12 months, y ou worried that your food would run out before you got the money to buy more. Never true 06/23/19 25 Within the past 12 months, t he food you bought just didn't last and you didn't have money to get more. Never true 06/23/2024 PRAPARE - Transportation Answer Date Re corded In the past 12 months, has l ack of transportation kept you from medical appointments or from getting medications? No 05/26 In the past 12 months, has l ack of transportation kept you from meetings, work, or from getting things needed for daily living? No 06/23/2024 Housing Stability Vital Sign Answer Andrew e Recorded In the last 12 months, was t here a time when you were not able to pay the mortgage or rent on time? No 06/23/2024 In the past 12 months, how m any times have you moved where you were living? 0 06/23/2024 At any time in the past [address] [facility], were you homeless or living in a penitentiary (including now)? No 06/23/2024 AUDIT-C Answer Date Recorded Frequency of Alcohol Consumption Not on file 01/11/2025 Q2: How many drinks containi ng alcohol do you have on a typical day when you are drinking? Patient does not drink Frequency of Binge Drinking Not on file 12/23 Area Deprivation Index Answer Date Rito rded National Score (1-100), lower number is lower ri sk 94 06/02/2024 State Score (1-10), lower number is lower risk 9 06/02/2024 Data from: https://www.neighborhoodatlas.[facility]/. Last address used for calculation [address] 06/02/2024 Sex and Gender Information Value Date Recorded Sex Assigned at Not on file Legal Sex Male 9:39 AM EST Gender Identity Not on file Sexual Orientation Not on file documented as of this encounter Last Filed Vital Signs Vital Sign Reading Time Taken Comments Blood Pressure 130/80 01/11/2025 12:58 PM EDT Pulse 69 01/11/2025 12:58 PM EDT Temperature - - Respiratory Rate - - Oxygen Saturation - - Inhaled Oxygen Concentration - - Weight 114.3 kg (252 lb) 01/11/2025 12:58 PM EDT Height 177.8 cm (5' 10 ) 01/11/2025 12:58 PM EDT Body Mass Index 36.16 01/11/2025 12:58 PM EDT documented in this encounter Functional Status * Question Answer Date of Assessment Author Q2: How many drinks containing alcohol do you have on a typical day when you are drinking? Patient does not drink 01/11/2025 12:58 PM EDT Glenis Martel OCCA * Are you deaf or do you have serious difficulty hearing? Answer Date of Assessment Author No 06/23/2024 10:06 AM Cesar Urban RN * Are you blind or do you have serious difficulty seeing, even when wearing glasses? Answer Date of Assessment Author No 06/23/2024 10:06 AM Cesar Urban RN * Do you have serious difficulty walking or climbing stairs? Answer Date of Assessment Author No 06/23/2024 10:06 AM Cesar Urban RN * Do you have difficulty dressing or bathing? Answer Date of Assessment Author No 06/23/2024 10:06 AM Cesar Urban RN * Because of a physical, mental, or emotional condition, do you have difficulty doing errands alone such as visiting a doctor's office or shopping? Answer Date of Assessment Author No 06/23/2024 10:06 AM Cesar Urban RN documented as of this encounter Mental Status * Because of a physical, mental, or emotional condition, do you have serious difficulty concentrating, remembering, or making decisions? Answer Entry Date Author No 06/23/2024 10:06 AM Cesar Urban RN documented in this encounter Patient Instructions * Patient Instructions* Eleno Carias MD - 01/11/2025 1:33 PM EDT We discussed your concerns about a possible incisional hernia: - On examination, you have a hernia above and below your previous surgical incision, as well as diastasis (separation of abdominal muscles). These findings are consistent with an incisional hernia. - At this time, the hernia is reducible (can be pushed back in) and is not causing any pain or obstructive symptoms. Surgery is not immediately necessary unless the hernia becomes problematic. - To help prevent the hernia from worsening, I recommend starting abdominal strengthening exercises. These exercises can help build core strength and support your abdominal wall. - Be aware of any changes in the hernia, such as the bulge becoming larger or something getting stuck in the area (e.g., a ball-like structure that cannot be pushed back in). If this occurs, seek medical attention promptly, as it could indicate incarceration (trapped tissue). - You do not need to wear an abdominal binder unless you are engaging in activities that generate significant abdominal pressure, such as heavy lifting. The binder can help prevent worsening of the hernia during these activities. We discussed surgical options for the hernia: - If you decide to pursue surgical repair in the future, the hernia would need to be repaired with mesh due to the weakness of your abdominal wall. - I am referring you to Dr. Patrick Blake, a general surgeon who specializes in hernia repairs. You can contact his office directly if you wish to discuss surgical options or if the hernia becomes symptomatic. I provided you with his contact information. We discussed your overall health and ongoing care: - You are doing well overall, with no issues such as constipation, nausea, diarrhea, or changes in appetite. - You have one round of chemotherapy remaining in January. After completing chemotherapy, you will transition to surveillance, including blood tests (ccDNA) and regular scans. Please continue to monitor your symptoms and follow the recommendations above. If you have any concerns or notice any changes, feel free to reach out to our office. documented in this encounter Progress Notes * Eleno Carias MD - 01/11/2025 1:00 PM EDT COLORECTAL SURGERY CLINIC NOTE January 11, 2025 Eddie Martinez 54 year old Recording using ambient AI software for draft documentation of the visit was discussed with the patient/authorized architectural representative; all questions welcomed and answered. Patient/authorized architectural representative agreed to proceed Chief Complaint: abdominal hernia Brief History: Eddie Martinez is a 54 year old male s/p laparoscopic right colectomy on 06/14/2024 for cecal colon cancer with post-op complicated by fascial dehiscence/evisceration requiring take back and abdominal wall closure 06/21/2024. Final Path: T3 N1b. He is , presenting with a progressively enlarging bulge at the superior aspect of his surgical incision. Interval event: He first noticed the bulge about 1 month ago, initially small but now visibly larger, especially with coughing. He denies pain, nausea, vomiting, constipation, diarrhea, hematochezia, or any symptomssuggestive of bowel obstruction or hernia incarceration. He maintains a ???clean?? diet and reports a normal appetite. He is currently undergoing chemotherapy, with one round remaining in January. He does not smoke but uses chewing tobacco. PAST MEDICAL HISTORY Diagnosis Date BMI 38.0-38.9,adult Colon cancer (HCC) HTN (hypertension) PAST SURGICAL HISTORY Procedure Laterality Date COLONSCOPY SCREENING HIGH RISK PAST SURGICAL HISTORY OF Bilateral hip arthroplasty (2018, 2020) PAST SURGICAL HISTORY OF 04/2024 colonoscopy (2018) Current Outpatient Medications Medication Sig Dispense Refill atorvastatin (LIPITOR) 40 mg tablet Take 40 mg by mouth once daily. ferrous sulfate 325 mg (65 mg iron) EC tablet Take [address]op[address] (PROTONIX) 40 mg tablet Take 40 mg by mouth once daily. prochlorperazine (COMPAZINE) 10 mg tablet Take 1 tablet by mouth every 6 hours as needed. 100 tablet 2 ondansetron (ZOFRAN) 8 mg tablet Take 1 tablet by mouth every 8 hours as needed for nausea/vomiting. 90 tablet 2 methocarbamol (ROBAXIN) 500 mg tablet Take 1 tablet by mouth three times a day. 20 tablet 0 acetaminophen (TYLENOL) 500 mg tablet Take 2 tablets by mouth every 6 hours. 50 tablet 0 lactobacillus rhamnosus (CULTURELLE) 10 billion cell capsule Take 1 capsule by mouth once daily. 30capsule 0 EDARBI 80 mg tab iv contrast (will be provided with radiology test) CT Chest ABD/PEL-Inject, intravenously, once for1 dose.No IV access, insert saline lock prior to the beginning of sedation, infusion, injection of imaging exam. Discontinue saline lock post exam. If Pt. has a central line or IVAD, may access for administration according to line specific nursing protocol. Once exam is complete flush line and de-access according to line specific nursing protocol in the CT contrast administration guidelines link.1 Each 0 enteric contrast (will be provided with radiology test) For CT CHESTABD/PEL W IVCON Routine order Administer, As Directed One Time Only, via Oral, Rectal, both Oral and Rectal, Enteric Tube, Stoma orIndwelling Catheter, Enteric Contrast as designated per enteric contrast guidelines 1 Each 0 No current facility-administered medications for this visit. ALLERGIES No Known Allergies FAMILY HISTORY Problem Relation Age of Onset Cancer Mother Colon Cancer Maternal Grandmother other (bile duct cancer) Maternal Grandmother SOCIAL HISTORY[1] Physical Exam: BP 130/80 (BP Site: Right Arm, BP Position: Sitting) Pulse 69 Ht 177.8 cm (5' 10 ) Wt 114.3 kg (252 lb) BMI 36.16 kg/m?? General Appearance: Well appearing, alert, in no acute distress, well-hydrated, well nourished. Abdomen: soft, non distended, non tender. ~1cm fascia defect above and below incision, as well as diastasis recti Colonoscopy 06/03/2018 - Dr Edmond @ [facility] Scan on 05/15/2024 9:54 AM by Be Cluod: [facility]- Operative Report 06/03/18 Colonoscopy 05/10/24 - Dr. Edmond @ [facility] Scan on 05/16/2024 9:34 AM by Norma Magallanes: [facility] operative note (path pending) [id number] Pathology Scan on 05/22/2024 8:26 AM by Be Cloud: [facility] Pathology Report 05/11/24 COLON, Biopsy, Cecum: COLONIC TISSUE WITH INVASIVE ADENOCARCINOMA, MODERATELY DIFFERENTIATED, ULCERATION NOTED 2. COLON, Biopsy, Sigmoid: LARGE TUBULAR ADENOMA (>1 CM), NEGATIVE FOR HIGH GRADE DYSPLASIA, AREAS SHOWING CAUTERY ARTIFACTARE POSITIVE FOR ADENOMATOUS GLANDS 3. COLON, Biopsy, Descending: TUBULAR ADENOMA. NEGATIVE FOR HIGH GRADE DYSPLASIA FINAL DIAGNOSIS Terminal ileum, right colon, appendix, and omentum, resection: - Invasive moderately differentiated colonic adenocarcinoma. - Three of 18 lymph nodes involved by metastatic adenocarcinoma (3/18). - Appendix with fibrous obliteration of the tip. - Omentum with no evidence of tumor. - Terminal ileum with no evidence of tumor. - See synoptic report. [facility] - 07/18/2024= 2.5 View External Labs - Chemistry [ID [id number]] Surveillance CT C A P on 09/26/2024 at [facility] -images uploaded into [facility] -no evidence of recurrence in chest, abdomen, pelvis Scan on 10/06/2024 10:52 AM by Dat Brown: [facility] - CT Scan, 09/26/24 Assessment Assessment and Plan: Eddie Martinez is a 54 year old male s/p laparoscopic right colectomy on 06/14/2024 for cecal colon cancer with post-op complicated by fascial dehiscence/evisceration requiring take back and abdominal wall closure 06/21/2024. Final Path: T3 N1b. He is , presenting with a progressively enlarging bulge consistent with incisional hernial We discussed option of non op vs. Surgical repair with hernia specialist He has minimal symptoms at this time, and we discussed abdominal wall/core strengthening exercises as well as warning signs/symptoms of incarceration. If hernia progresses/becomes more symptomatic, patient to follow up with Dr. Blake for hernia repair RTC prn Medical Decision Making: Data Reviewed: Tests & Documents Reviewed/ordered: Review of prior notes from [facility] Review of prior operative reports Review of Pathology Review of Imaging: CT Abdomen, CT Pelvis Review of Labs: CEA Review of Procedures / Tests: Colonoscopy I have independently interpreted: CT Abdomen, CT Pelvis I have discussed Eddie Martinez's treatment plan and/or results with patient and his . Risk of morbidity, mortality and/or complications of treatment plan: yasmeen Carias MD Colorectal Surgery [1] Social History Tobacco Use Smoking status: Never Passive exposure: Past Smokeless tobacco: Current Types: Chew Vaping Use Vaping status: Never Used Substance Use Topics Alcohol use: Not Currently Drug use: Not Currently documented in this encounter Plan of Treatment Not on file documented as of this encounter Visit Diagnoses Diagnosis Incisional hernia, without obstruction or gangrene- Primary Incisional hernia without mention of obstruction or gangrene documented in this encounter Care Teams Sand Sifter Relationship Specialty Start Date End Date Delta Pratt MD [address] [place] [address] PCP - General Family Medicine 05/15/24 Geoffrey Edmond MD [address] [place] [address] [address] [place] [address] General Surgery 05/15/24 Natalie Willis RN [address] [place] [address] Specialty Salon Designer Hematology/Oncology 06/29/24 Joseph Bragg MD [address] [place] [address] Physician Hematology/Oncology 06/29/24 documented as of this encounter
--- OUTSIDE RECORDS SUMMARY | 2025-01-12 07:52 | XMS_ITS | Clinical Summary ---
Author Organization [facility] Address [address] [place] [address] Care Team Providers Care Cooker Process Cheese Name Role Phone Delta Pratt MD Primary Care Provider [phone] Geoffrey Edmond MD Unavailable [phone] Natalie Willis RN Unavailable [phone] Joseph Bragg MD Unavailable [phone] Allergies No known active allergies Medications EDARBI 80 mg tab 0 Active iv contrast (will be provided with radiology test)Indicatio ns:Malignant neoplasm of ascending colon (HCC) CT Chest [...] CT contrast administration guidelines link. 1 Each 5 Active enteric contrast (will be provided with radiology test)Indicatio ns:Malignant neoplasm of ascending colon (HCC) For CT CHESTABD/PEL W IVCON Routine order Administer, As Directed One Time Only, via Oral, Rectal, both Oral and Rectal, Enteric Tube, Stoma or Indwelling Catheter, Enteric Contrast as designated per enteric contrast guidelines 1 Each 5 Active acetaminophen (TYLENOL) 500 mg tablet Take 2 tablets by mouth every 6 hours. 50 tablet 5 Active lactobacillus rhamnosus (CULTURELLE) 10 billion cell capsule Take 1 capsule by mouth once daily. 30 capsule Active methocarbamol (ROBAXIN) 500 mg tablet Take 1 tablet by mouth three times a day. 20 tablet Active prochlorperazi ne (COMPAZINE) 10 mg tablet Take 1 tablet by mouth every 6 hours as needed. 100 tablet 2 Active ondansetron (ZOFRAN) 8 mg tablet Take 1 tablet by mouth every 8 hours as needed for nausea/vomiting. 90 tablet 2 Active atorvastatin (LIPITOR) 40 mg tablet Take 40 mg by mouth once daily. Active ferrous sulfate 325 mg (65 mg iron) EC tablet Take 325 mg by mouth. Active pantoprazole DR (PROTONIX) 40 mg tablet Take 40 mg by mouth once daily. Active Active Problems Problem Noted Date Diagnosed Date Nicotine use disorder, F17.2 06/16/2024 Malignant neoplasm of ascending colon 06/14/2024 BMI 38.0-38.9,adult 06/08/2024 Assessment & Plan (06/08/2024 9:15 AM EST): Assessment: BMI 38.78 HTN (hypertension) 06/08/2024 Assessment & Plan (06/08/2024 9:15 AM EST): Assessment: managed with [facility], PCP following Stable, BP in office 06/08/2024: 128/82 Smokeless tobacco use 06/08/2024 Assessment & Plan (06/08/2024 9:16 AM EST): Assessment: daily use of smokeless tobacco , chew SHERIE (obstructive sleep apnea) 06/08/2024 Assessment & Plan (06/08/2024 9:17 AM EST): Assessment: h/o positive sleep study Unable to tolerate CPAP Resolved Problems Problem Noted Date Diagnosed Date Resolved Date Wound dehiscence 06/21/2024 06/23/2024 Perioperative dehiscence of abdominal wound with evisceration, initial encounter 06/21/2024 Encounters Date Type Department Care Team Description 01/11/2025 1:00 PM EDT Office Visit Colorectal Surgery [address] [place] [address] lEeno Carias MD Incisional hernia, without obstruction or gangrene (Primary Dx) 01/09/2025 Travel 10/24/2024 10:00 AM EDT Office Visit COLORECTAL SURGERY [address] [place] [address] Eleno Carias MD Follow-up examination after colorectal surgery (Primary Dx); History of colon cancer 10/17/2024 Travel from Last 3 Months Immunizations Immunization Administration Dates Next Due influenza (IIV4) vaccine, ag e 6 mo - 64 yr, quadrivalent, PF (AFLURIA, FLUARIX, FLULAVAL, FLUZONE) 03/15/2018 Family History Medical History Relation Comments Colon Cancer Maternal Grandmother bile duct cancer Maternal Grandmother Cancer Mother Relation Status Comments Father Alive Maternal Grandmother Mother Alive Social History Tobacco Use Types Packs/Day Years Used Date Smoking Tobacco: Never Passive Smoke Exposure: Past Smokeless Tobacco: Current Chew Tobacco Cessation:Ready to Q uit: Not Asked; Counseling Given: Not Answered Alcohol Use Standard Drinks/Week Comments Not Currently 0 (1 standard drink = 0.6 oz pur e alcohol) [facility] Utilities Answer Date Recorded In the past 12 months has th e [employer], gas, oil, or water [employer] threatened to shut off services in your [...] any time in the past [address] [facility], were you homeless or living in a alf (including now)? No 06/23/2024 AUDIT-C Answer Date [...] is lower risk 9 06/02/2024 Data from: https://www.neighborhoodatlas.medicine.[facility].edu/. Last address used for calculation [address] 06/02/2024 Sex and Gender Information Value Date Recorded Sex Assigned at Not on file Legal Sex Male 9:39 AM EST Gender Identity Not on file Sexual Orientation Not on file Last Filed Vital Signs Vital Sign Reading Time Taken Comments Blood Pressure 130/80 01/11/2025 12:58 PM EDT Pulse 69 01/11/2025 12:58 PM EDT Temperature 36.6 C (97.9 F) 07/07/2024 8:50 AM EST Respiratory Rate 18 06/28/2024 10:56 AM EST Oxygen Saturation 99% 07/07/2024 8:50 AM EST Inhaled Oxygen Concentration - - Weight 114.3 kg (252 lb) 01/11/2025 12:58 PM EDT Height 177.8 cm (5' 10 ) 01/11/2025 12:58 PM EDT Body Mass Index 36.16 01/11/2025 12:58 PM EDT Plan of Treatment Health Maintenance Due Date Last Done Comments Annual PCP Team Chronic Dise ase Visit 1989 Anxiety Screening 1989 Depression Screening 1989 HIV Screening 1989 Hepatitis C Screening 1989 DTaP,Tdap,Td Vaccine (1 - Tdap) 1990 Hepatitis B Vaccine (1 of 3 - 19+ 3-dose series) [address] Colonography 02/18/2016 Cologuard (FIT-DNA) 02/18/2016 Colonoscopy 02/18/2016 Colorectal Cancer Screening 02/18/2016 Fecal Occult Blood 02/18/2016 Sigmoidoscopy 02/18/2016 Pneumococcal Vaccine: 50+ (1 of 1 - PCV) 2021 Shingrix Vaccine (1 of 2) 2021 Influenza Vaccine (#1) 2025 03/15/2018 Diabetes Screening 06/23/2027 06/23/2024, 0 06/22/2024, 06/21/2024, Additional history exists Procedures Procedure Name Priority Date/Time Associated Diagnosis Comments BASIC METABOLIC PANEL Routine 06/23/2024 5:05 AM EST from Last 3 Months or Most Recently Relevant to Health Maintenance Results * (ABNORMAL) BASIC METABOLIC PANEL (06/23/2024 5:05 AM EST) Glucose 105(H) 74 - 99 mg/dL 06/23/2024 6:03 AM EST [facility] Comment: The [place] Diabetes Association (ADA) provides guidance for cutoff [...] Standards of Medical Care in Diabetes 2016, [place] Diabetes Association. Diabetes Care. 2016.39(Suppl 1). BUN 13 9 - 24 mg/dL 06/23/2024 6:03 AM EST [facility] Creatinine 0.96 0.73 - 1.22 mg/dL 06/23/2024 6:03 AM EST [facility] Sodium 138 136 - 144 mmol/L 06/23/2024 6:03 AM EST [facility] Potassium 4.2 3.7 - 5.1 mmol/L 06/23/2024 6:03 AM [facility] Chloride 104 98 - 107 mmol/L 06/23/2024 6:03 AM [facility] CO2 24 22 - 30 mmol/L 06/23/2024 6:03 AM [facility] Anion Gap 10 8 - 15 mmol/L 06/23/2024 6:03 AM EST [facility] Calcium, Total 8.9 8.5 - 10.2 mg/dL 06/23/2024 6:03 AM EST [facility] Estimated Glomerular Filtration Rate 95 >=60 mL/min/1. 73m 06/23/2024 6:03 AM [facility] Comment:Estimated Glomerular Filtration Rate (eGFR) is calculated using the 2020 CKD-EPI creatinine equation. This equation utilizes serum creatinine, sex, and age as parameters. The creatinine assay has traceable calibration to isotope dilution- mass spectrometry. Refer to KDIGO guidelines for clinical interpretation. In patients with unstable renal function, e.g. those with acute kidney injury, the eGFR may not accurately reflect actual GFR. Blood BLOOD SPECIMEN / Unknown Venipuncture / Unknown 06/23/2024 5:05 AM EST 06/23/2024 5:36 AM EST us Eleno Carias MD LABORATORY Final Result Performing Organization Address City/State/[facility] Co de Phone Number [facility] [id number] from Last 3 Months or Most Recently Relevant to Health Maintenance [facility] Care Teams Cooker Process Cheese Relationship Specialty Start Date End Date Delta Pratt MD [address] [place] [address] PCP - General Family Medicine 05/15/24 Geoffrey Edmond MD [address] [place] [address] [address] [place] [address] General Surgery 05/15/24 Natalie Willis RN [address] [facility] [place] [address] Specialty Site Damage Prevention Technician Hematology/Oncology 06/29/24 Joseph Bragg MD [address] [place] [address] Physician Hematology/Oncology 06/29/24
--- OUTSIDE RECORDS SUMMARY | 2025-01-12 07:52 | XMS_ITS | Clinical Summary ---
Author Organization [facility] Address [address] [place] [address] Care Team Providers Care President [employer] Name Role Phone Unavailable Primary Care Provider Unavailabl e Social History Tobacco Use Types Packs/Day Years Used Date Smoking Tobacco: Never Assessed Sex and Gender Information Value Date Recorded Sex Assigned at Not on file Legal Sex Male 8:25 PM EDT Gender Identity Not on file Sexual Orientation Not on file Last Filed Vital Signs Vital Sign Reading Time Taken Comments Blood Pressure 141/94 03/02/2018 12:00 PM EDT Pulse - - Temperature - - Respiratory Rate - - Oxygen Saturation - - Inhaled Oxygen Concentration - - Weight 111 kg (245 lb) 03/02/2018 12:00 PM EDT Height 180.3 cm (5' 11 ) 03/02/2018 12:00 PM EDT Body Mass Index 34.17 03/02/2018 12:00 PM EDT Plan of Treatment Not on file
--- OUTSIDE RECORDS SUMMARY | 2025-01-12 07:52 | XMS_ITS | Encounter Summary ---
Author Organization [facility] Address [address] [place] [address] Care Team Providers Care Tongue Presser Name Role Phone Delta Pratt MD Primary Care Provider [phone] Geoffrey Edmond MD Unavailable [phone] Natalie Willis RN Unavailable [phone] Joseph Bragg MD Unavailable [phone] Source Comments In the event this information is protected by the Federal Confidentiality of Alcohol and Drug AbusePatient Records regulations: The Federal rules restrict any use of the information to criminally investigate or prosecute any alcohol or drug abuse patient.[facility] Encounter Details Date Type Department Care Team (Late st Contact Info) Description 08/31/2024 [place] [address] Provider, Ccf C: 3 [facility] Surgical Follow Up- PLEASE RESPOND Social History Tobacco Use Types Packs/Day Years Used Date Smoking Tobacco: Never Smokeless Tobacco: Current Chew Alcohol Use Standard Drinks/Week Comments Not Currently 0 (1 standard drink = 0.6 oz pur e alcohol) [facility] Utilities Answer Date Recorded In the past 12 months has [employer], gas, oil, or water company threatened to shut off services in your [...] any time in the past [address] [facility], were you homeless or living in a intermediate (including now)? No 06/23/2024 Area Deprivation Index Answer Date Rito rded National Score (1-100), lower number is lower ri sk 94 06/02/2024 State Score (1-10), lower number is lower risk 9 06/02/2024 Data from: https://www.neighborhoodatlas.medicine.[facility].edu/. Last address used for calculation [address] 06/02/2024 Sex and Gender Information Value Date Recorded Sex Assigned at Not on file Legal Sex Male 9:39 AM EST Gender Identity Not on file Sexual Orientation Not on file documented as of this encounter Functional Status * Are you deaf or do you [...] Cesar Urban RN documented in this encounter Plan of Treatment Not on file documented as of this encounter Visit Diagnoses Not on filedocumented in this encounter Care Teams Tongue Presser Relationship Specialty [place] [address] [place] [address] PCP - General Family Medicine 05/15/24 Geoffrey Edmond MD [address] [facility] [address] [place] [address] General Surgery 05/15/24 Natalie Willis RN [address] [facility] [place] [address] Specialty Student Education Specialist Hematology/Oncology 06/29/24 Joseph Bragg MD [address] [place] [address] Physician Hematology/Oncology 06/29/24 documented as of this encounter
--- OUTSIDE RECORDS SUMMARY | 2025-01-12 07:52 | XMS_ITS | Encounter Summary ---
Author Organization [facility] Address [address] [place] [address] Care Team Providers Care Service Support Representative Name Role Phone Delta Pratt MD Primary Care Provider [phone] Geoffrey Edmond MD Unavailable [phone] Natalie Willis RN Unavailable [phone] Joseph Bragg MD Unavailable [phone] Source Comments In the event this information is protected by the Federal Confidentiality of Alcohol and Drug AbusePatient Records regulations: The Federal rules restrict any use of the information to criminally investigate or prosecute any alcohol or drug abuse patient.[facility] Encounter Details Date Type Department Care Team (Latest Contact Info) Description 01/09/2025 Travel Social History Tobacco Use Types Packs/Day Years Used Date Smoking Tobacco: Never Passive Smoke Exposure: Past Smokeless Tobacco: Current Chew Alcohol Use Standard Drinks/Week Comments Not Currently 0 (1 standard drink = 0.6 oz pur e alcohol) [facility] Utilities Answer Date Recorded In the past 12 months has e electric, gas, oil, or water company threatened [...] any time in the past 12 m [place], were you homeless or living in a detention (including now)? No 06/23/2024 Area Deprivation Index Answer Date Rito rded National Score (1-100), lower number is lower ri sk 94 06/02/2024 State Score (1-10), lower number is lower risk 9 06/02/2024 Data from: https://www.neighborhoodatlas.medicine.[facility].edu/. Last address used for calculation [address] [...] on filedocumented in this encounter Care Teams Service Support Representative Relationship Specialty Start Date End Date Delta Pratt MD [address] [place] [address] PCP - General Family Medicine 05/15/24 Geoffrey Edmond MD [address] [place] [address] [address] [place] [address] General Surgery 05/15/24 Natalie Willis RN [address] [facility] [place] [address] Specialty Local Telephone Operator Hematology/Oncology 06/29/24 Joseph Bragg MD [address] [place] [address] Physician Hematology/Oncology 06/29/24 documented as of this encounter
--- OUTSIDE RECORDS SUMMARY | 2025-01-12 07:52 | XMS_ITS | Clinical Summary ---
Author Organization [facility] Address [address] [place] [address] Care Team Providers Care Voltmeter Operator Name Role Phone Delta Pratt MD Primary Care Provider [phone] Allergies No known active allergies Medications lactobacillus (Culturelle) 10 billion cell capsule Take 1 capsule by mouth in the morning. 06/16/2024 Active methocarbamol (Robaxin) 500 mg tablet Take 500 mg by mouth 3 times a day. 06/23/2024 Active prochlorperazin e (Compazine) 10 mg tablet Take 10 mg by mouth every 6 (six) hours if needed. 06/29/2024 Active ondansetron (Zofran) 8 mg tablet Take 8 mg by mouth every 8 (eight) hours if needed. 06/29/2024 Active Edarbi 80 mg tablet Take 1 tablet by mouth in the morning. Active Active Problems Problem Noted Date Diagnosed Date Sinus bradycardia 09/27/2024 Fatty liver 09/26/2024 Malignant neoplasm of ascending colon 06/14/2024 HTN (hypertension) 06/08/2024 BMI 38.0-38.9,adult 06/08/2024 SHERIE (obstructive sleep apnea) 06/08/2024 Social History Tobacco Use Types Packs/Day Years Used Date Smoking Tobacco: Never Assessed Sex and Gender Information Value Date Recorded Sex Assigned at Male 12/20/2024 3:28 PM EDT Legal Sex Male 1:52 PM EDT Gender Identity Male 12/20/2024 3:28 PM EDT Sexual Orientation Choose not to disclose 2024 3:28 PM EDT Last Filed Vital Signs Vital Sign Reading Time Taken Comments Blood Pressure 124/60 09/27/2024 10:57 AM EDT Pulse 75 09/27/2024 10:57 AM EDT Temperature - - Respiratory Rate - - Oxygen Saturation 98% 09/27/2024 10:57 AM EDT Inhaled Oxygen Concentration - - Weight 112 kg (248 lb) 09/27/2024 10:57 AM EDT Height 177.8 cm (5' 10 ) 09/27/2024 10:57 AM EDT Body Mass Index 35.58 09/27/2024 10:57 AM EDT Plan of Treatment Health Maintenance Due Date Last Done Comments Depression Screening 1983 Hepatitis B Vaccines (1 of 3 - 19+ 3-dose series) 1990 Adult Tetanus 1993 Zoster Vaccines (1 of 2) 2021 COVID-19 Vaccine (2023-2 5 season) 2024 09/19/2020, 08/22/2020 Influenza Vaccine (#1) 2025 03/15/2018 Colonoscopy Discontinued 05/10/2024, 06/03/2018 Colorectal Cancer Screening Discontinued CT Colonography Discontinued FIT-DNA Discontinued FIT Discontinued FOBT Discontinued HIB Vaccines Aged Out No longer eligi ble based on patient's age to complete this topic HPV Vaccines Aged Out No longer eligi ble based on patient's age to complete this topic IPV Vaccines Aged Out No longer eligi ble based on patient's age to complete this topic Meningococcal B Vaccine Aged Out No l onger eligible based on patient's age to complete this topic Meningococcal Vaccine Aged Out No hang nikhil eligible based on patient's age to complete this topic Pneumococcal Vaccine: Pediatrics (0 to 5 Years) and At-Risk Patients (6 to 64 Years) Aged Out No longer eligible based on patient's age to complete this topic Rotavirus Vaccines Aged Out No longer eligible based on patient's age to complete this topic Sigmoidoscopy Discontinued Insurance [employer] Care Teams Voltmeter Operator Relationship Specialty Start Date End Date Delta Pratt MD [address] [facility] [place] [address] PCP - General 09/26/24
--- OUTSIDE RECORDS SUMMARY | 2025-01-12 07:52 | XMS_ITS | Clinical Summary ---
Author Organization [facility] Address [id number] [address] [id number] Care Team Providers Care User Support Analyst Supervisor Name Role Phone Unavailable Primary Care Provider Unavailabl e Immunizations Immunization Administration Dates Next Due COVID-19, mRNA, LNP-S, PF, 100mcg/0.5mL Dose ,08/22/2020 Social History Tobacco Use Types Packs/Day Years Used Date Smoking Tobacco: Never Assessed Childcare Answer Date Recorded Childcare Unknown 08/21/2020 Employment Answer Date Recorded Employment Unknown 08/21/2020 Purpose - Life Answer Date Recorded Purpose and direction in life Unknown Sex and Gender Information Value Date Recorded Sex Assigned at Not on file Legal Sex Male 11:50 AM EDT Gender Identity Not on file Sexual Orientation Not on file Plan of Treatment Health Maintenance Due Date Last Done Comments Depression Screening 1983 Tobacco Screening 1983 Adult BMI Screening 1989 DTaP,Tdap and Td Vaccines (1 - Tdap) 1990 Zoster (Shingles) Vaccine (1 of 2) 2021 COVID-19 Vaccine (3 - season) 2024, 08/22/2020 Influenza Vaccine 01/22/2025 03/15/2018 Medical Devices Not on file Insurance [employer]
--- OUTSIDE RECORDS SUMMARY | 2025-01-12 07:56 | XMS_ITS | CCD ---
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 Name Role Phone CASEY ., DR BLEVINS [...] Consulting Unavailable MD Gen Peña Attending Provider [phone] MD Kisha Esteves Attending Provider [phone] Gen Peña Primary Care Physician Gen Peña Attending Unavailable Gen Peña Admitting Unavailable Kisha Esteves Attending Unavailable Kisha Esteves Admitting Unavailable Jone Hedrick Admitting Unavailable Jone Hedrick Attending Unavailable Gen Peña MD Primary Care Provider Jone Hedrick MD Unavailable [phone] Lazaro MONTOYA, Chelle Orta Unavailable [phone] Yemi PATEL, [facility] Unavailable [phone] DONIS CARIAS Admitting Unavailable DONIS CARIAS Attending Unavailable GEN PEÑA Primary Care Unavailable ODNIS CARIAS Referring Unavailable GEN PEÑA Primary Care Unavailable DONIS CARIAS Referring Unavailable HOY, GEN M Primary Care Unavailable AUSTIN DONIS Referring Unavailable HOY, GEN M Primary Care Unavailable HOY, EGN M Primary Care Unavailable AUSTIN, KATYARATU Admitting Unavailable AUSTIN, ASHLEIGHU Attending Unavailable JOE JONES Attending Unavailable RAVIINRO, DONIS Attending Unavailable HOY, GEN M Primary Care Unavailable ASHLEIGH CARIASU Attending Unavailable NILL, JONE R Referring Unavailable HOY, GEN M Primary Care Unavailable AUSTIN, DONIS Referring Unavailable HOY, GEN M Primary Care Unavailable JOSEPH BRAGG Attending Unavailable KESHINRO, AJARATU Referring Unavailable HOY, GEN M Primary Care Unavailable MAYLIN CONTE Attending Unavailable MAYLIN CONTE Referring Unavailable HOY, GEN M Primary Care Unavailable DANIELITO, KISHA Referring Unavailable NILL, Jone Galeana Attending Unavailable NILL, Jone Galeana Attending Unavailable DANIELITO, KISHA Referring Unavailable NILL, Jone R Attending Unavailable NILL, Jone Galeana Attending Unavailable NILL, Jone Galeana Attending Unavailable NILL, Jone Galeana Attending Unavailable NILL, Jone Galeana Attending Unavailable Joseph Bragg MD Unavailable [phone] Allergies Allergy Classification Reported Allergen(s) Allergy Type Date of Onset Reaction(s) Facility (1 source) No Known Medication Allergies; Translations: [No Known Medication Allergies] Propensity to adverse reactions (disorder) [facility] Repository Medications Current Medications Medication Drug Class(es) Dates Sig (Normalized) Sig (Original) acetaminophen 500 mg oral tablet (13 sources) Start: 5 take 2 tablets by mouth every six hours acetaminophen (TYLENOL) 500 mg tablet Take 2 tablets by mouth every 6 hours. 50 tablet 06/16/2024 Active Acidophilus Probiotic Blend (2 sources) Start: 5 take 1 capsule by mouth once daily Acidophilus Probiotic Blend 1 cap(s), Oral, Daily, Refill(s) 0 Start Date: 06/28/24 Status: Ordered atorvastatin 40 mg oral tablet (4 sources) HMG-CoA Reductase Inhibitor take 1 tablet by mouth once daily atorvastatin (LIPITOR) 40 mg tablet Take 40 mg by mouth once daily. Active azilsartan medoxomil 80 mg oral tablet (20 sources) Angiotensin 2 Receptor Connie Start: 9 EDARBI 80 mg tab 05/25/2019 Active capecitabine 500 mg oral tablet (1 source) Nucleoside Metabolic Inhibitor Start: 5 End: 5 take 3 tablets by mouth twice daily capecitabine 500 mg Tab 1,500 mg = 3 tab(s), Oral, BID, X 2 week(s), Refills(s) 0 Start Date: 12/27/24 Stop Date: 01/10/25 Status: Ordered Repeat number: 1 0.4 ml enoxaparin sodium 100 mg/ml prefilled syringe (9 sources) Low Molecular Weight Heparin Start: End: inject 40 mg by subcutaneous injection every twenty-four hours enoxaparin (LOVENOX) 40 mg/0.4 mL Inject 0.4 mL subcutaneously every 24 hours for 21 days. 8.4 mL 06/16/2024 07/07/2024 Active enteric contrast (will be provided with radiology test) (19 sources) Start: enteric contrast (will be provided with radiology test) Indications: Malignant neoplasm of ascending colon (HCC) For CT CHESTABD/PEL W IVCON Routine order Administer, As Directed One Time Only, via Oral, Rectal, both Oral and Rectal, Enteric Tube, Stoma or Indwelling Catheter, Enteric Contrast as designated per enteric contrast guidelines 1 Each 05/25/2024 Active ferrous sulfate 325 mg delayed release oral tablet (4 sources) ferrous sulfate 325 mg (65 mg iron) EC tablet Take 325 mg by mouth. Active iv contrast (will be provided with radiology test) (19 sources) Start: iv contrast (will be provided with radiology [...] 1 Each 05/25/2024 Active lactobacillus rhamnosus gg [id number] unt oral capsule (13 sources) Start: End: 5 take 1 capsule by mouth once daily lactobacillus rhamnosus (CULTURELLE) 10 billion cell capsule Take 1 capsule by mouth once daily. 30 capsule 06/16/2024 Active methocarbamol 500 mg oral tablet (12 sources) Muscle Relaxant Start: 5 take 1 [...] 05/25/2024 Active ondansetron 8 mg oral tablet (7 sources) Serotonin-3 Receptor Antagonist Start: 5 take 1 [...] pantoprazole 40 mg delayed release oral tablet (6 sources) Proton Pump Inhibitor Start: 4 take 1 tablet by mouth once daily Protonix 40 mg Tab-DR 40 mg = 1 tab(s), Oral, Daily, Refills(s) 0 Start Date: 04/18/24 Status: Ordered prochlorperazine 10 mg oral tablet (7 sources) Phenothiazine Start: 5 take 1 tablet by [...] Problem Date Documented Da te Episodic/Chronic Abdominal hernia (1 source) Incisional hernia; Translations: [Incisional hernia without obstruction or gangrene] 01-11-2025 Episodic Abdominal pain (12 sources) Epigastric pain; Translations: [Epigastric pain] Onset: 04-25-2024 Episodic Alcohol-related disorders (5 sources) History of alcohol abuse 04-17-2024 Chronic Cancer of colon (20 sources) Malignant tumor of ascending colon; Translations: [Malignant neoplasm of ascending colon] Onset: 06-14-2024 05-22-2024 Chronic Cancer of colon (2 sources) Personal history of other malignant neoplasm of large intestine; Translations: [History of malignant neoplasm of colon] Onset: 06-21-2024 10-24-2024 Episodic Deficiency and other anemia (5 sources) Pancytopenia 04-17-2024 Chronic Deficiency and other anemia (6 sources) Iron deficiency anemia; Translations: [Iron deficiency anemia, unspecified] Onset: 04-25-2024 Episodic Deficiency and other anemia (5 sources) Anemia 04-17-2024 Episodic Disorders of lipid metabolism (6 sources) Hyperlipidemia, unspecified; Translations: [Hyperlipidemia] Onset: 02-08-2022 04-17-2024 Chronic Essential hypertension (20 sources) Essential (primary) hypertension; Translations: [Essential hypertension] Onset: 02-08-2022 04-17-2024 Chronic Neoplasms of unspecified nature or uncertain behavior (4 sources) Neoplasm of uncertain behavior of colon 05-12-2024 Episodic Other aftercare (3 sources) Surgical follow-up; Translations: [Encounter for follow-up examination after completed treatment for conditions other than malignant neoplasm] 07-07-2024 Episodic Other gastrointestinal disorders (5 sources) Intestinal malabsorption 04-17-2024 Chronic Other gastrointestinal disorders (1 source) Abnormal feces; Translations: [Other fecal abnormalities] Onset: 04-25-2024 Episodic Other gastrointestinal disorders (5 sources) Occult blood in stools 04-17-2024 Episodic Other gastrointestinal disorders (4 sources) Mass of colon 05-12-2024 Episodic Other liver diseases (5 sources) Steatosis of liver 04-17-2024 Chronic Other nervous system disorders (1 source) Other acute postprocedural pain; Translations: [Post-op pain] Onset: 06-14-2024 Episodic Other nutritional; endocrine; and metabolic disorders (20 sources) Body mass index 30+ - obesity; Translations: [Body mass index (BMI) 38.0-38.9, adult] Onset: 06-08-2024 04-25-2024 Chronic Other nutritional; endocrine; and metabolic disorders (5 sources) Morbid obesity 04-17-2024 Chronic Residual codes; unclassified (4 sources) Obstructive sleep apnea (adult) (pediatric); Translations: [OBSTRUCTIVE SLEEP APNEA] Onset: 07-14-2022 Chronic Residual codes; unclassified (5 sources) Sleep apnea 04-17-2024 Chronic Residual codes; unclassified (15 sources) Obstructive sleep apnea syndrome; Translations: [Obstructive sleep apnea (adult) (pediatric)] Onset: 06-08-2024 06-08-2024 Chronic Residual codes; unclassified (1 source) Acquired absence of other specified parts of digestive tract; Translations: [Status post partial colectomy] Onset: 06-21-2024 Episodic Substance-related disorders (13 sources) Nicotine dependence; Translations: [Nicotine dependence, unspecified, uncomplicated] Onset: 06-16-2024 06-16-2024 Chronic Past or Other Problems Problem Classification Problem Date Documented Da te Episodic/Chronic Complications of surgical procedures or medical care (20 sources) Wound dehiscence; Translations: [Disruption of wound, unspecified, initial encounter] Onset: 06-21-2024 Resolved: 06-23-2024 06-23-2024 Episodic Malaise and fatigue (1 source) Other fatigue; Translations: [OTHER FATIGUE] Onset: 02-08-2022 Episodic Other aftercare (1 source) Other halfway (current) drug therapy; Translations: [OTH MASTER STEAM YACHT CURRENT DRUG THERAPY] Onset: 02-08-2022 Episodic Other screening for suspected conditions (not mental disorders or infectious disease) (1 source) Encounter for screening for malignant neoplasm of prostate; Translations: [ENC SCREEN MALIG NEOPLASM PROSTATE] Onset: 02-08-2022 Episodic Residual codes; unclassified (15 sources) User of smokeless tobacco; Translations: [Tobacco use] Onset: 06-08-2024 06-08-2024 Episodic Results Test Name Value Interpretation Reference Range Facility Ambulatory Visit Summaryon 0 12-27-2024 Ambulatory Visit Summary Ambulatory Visit Summary PIPER RODRÍGUEZ :1970 Visit Date:12/27/2024 Ambulatory Visit Instructions Your Care Team Attending Physician - FLORIDALMA PATEL, Jone Galeana Primary Care Physician - Casey PATEL, Gen This Is Your Medications List azilsartan (Edarbi) capecitabine (capecitabine 500 mg Tab) Procedures Performed Insertion of implantable venous access port (07/05/2024), Right colectomy (06/14/2024), Colonoscopy (05/10/2024), EGD - esophagogastroduodenoscopy (05/10/2024), Colonoscopy (06/03/2018), Arthroplasty of left hip, Arthroplasty of right hip. Discharge Vitals Heart Rate (Peripheral) 72 Respiratory Rate 16 Blood Pressure 114/66 Height 177.8 cm Height 70 in Weight 116 kg Weight 255.736 lb BMI 36.69 Medications What How Much When Instructions Unchanged azilsartan (Edarbi) 80 Milligram By Mouth Every day Unchanged capecitabine (capecitabine 500 mg Tab) 3 Tablets By Mouth 2 times a day Duration: 2 Weeks Allergies No Known Allergies No Known Medication Allergies Problems Ongoing - Any problem that you are currently receiving treatment for. Anemia BMI 36.0-36.9,adult Colon neoplasm Epigastric pain Essential hypertension Fatty liver History of alcohol abuse Hyperlipidemia Intestinal malabsorption Iron deficiency anemia Mass of colon Morbid obesity Other pancytopenia Periumbilical abdominal pain Positive occult stool blood test Sleep apnea Stage III adenocarcinoma of colon Patient Survey You may receive a survey via text or e-mail asking about your office visit. Please share your experience with us by completing your survey. We appreciate your feedback and thank you for choosing us for your care. Patient Portal You may access all of your results and other medical record information on our secure patient portal. If you are not signed up for this yet, please contact [employer] at [phone] to get signed up today. Language Information Language assistance services are available as needed. [facility] CNOVon 10-24-2024 CNOV Office Visit ([facility]) PIPER RODRÍGUEZ ([id number]) 1970 M Date Time Provider Department 10/24/24 10:00 AM DONIS CARIAS [facility] During your visit today, we recorded the following information about you: Pulse Blood pressure Weight 71/minute 160/91 114.7 kg Donis Carias MD 10/24/2024 10:19 AM Signed [facility] NOTE Recording using XYZE software for draft documentation of the visit was discussed with the patient/authorized sales representative meats; all questions welcomed and answered. 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 He underwent evaluation by a social services coordinator, including an echocardiogram, which was reportedly normal. He did not pursue a second opinion regarding the chemotherapy, and he and his care team decided not to complete the final two doses. His last chemotherapy dose was on 09/09. The patient states he is currently eating well and has no concerns regarding his wounds or any bulges at the midline. He denies any issues with bowel movements, stating he is pooping okay and otherwise feels he is doing well. He reports that his most recent CT scan of the chest, abdomen, and pelvis was clean, and his last blood work was also normal. PAST MEDICAL HISTORY Diagnosis Date BMI 38.0-38.9,adult Colon cancer (HCC) HTN (hypertension) PAST SURGICAL HISTORY Procedure Laterality Date COLONSCOPY SCREENING HIGH RISK PAST SURGICAL HISTORY OF Bilateral hip arthroplasty (2018, 2020) PAST SURGICAL HISTORY OF 04/2024 colonoscopy (2019) Current Outpatient Medications Medication Sig Dispense Refill [...] Take 1 capsule by mouth once daily. (Patient not taking: Reported on 10/24/2024) 30 capsule 0 EDARBI 80 mg tab iv contrast [...] in the CT contrast administration guidelines link. (Patient not taking: Reported on 10/24/2024) 1 Each 0 enteric contrast (will be provided with radiology test) For CT CHESTABD/PEL W IVCON Routine order Administer, As Directed One Time Only, via Oral, Rectal, both Oral and Rectal, Enteric Tube, Stoma or Indwelling Catheter, Enteric Contrast as designated per enteric contrast guidelines (Patient not taking: Reported on 10/24/2024) 1 Each 0 No current facility-administered medications for this visit. ALLERGIES No Known Allergies FAMILY HISTORY Problem Relation Age of Onset Cancer Mother Colon Cancer Maternal Grandmother other (bile duct cancer) Maternal Grandmother Social History Tobacco Use Smoking status: Never Passive exposure: Past Smokeless tobacco: Current Types: Chew Vaping Use Vaping status: Never Used Substance Use Topics Alcohol use: Not Currently Drug use: Not Currently Physical Exam: BP 160/91 Pulse 71 Wt 114.7 kg (252 lb 13.9 oz) BMI 36.28 kg/m? General Appearance: Well appearing, alert, in no acute distress, well-hydrated, well nourished. Abdomen: soft, non distended, non tender. Incision site well healed. No fascia defect Colonoscopy 06/03/2018 - Dr Hedrick @ [facility] Scan on 05/15/2024 9:54 AM by Be Cloud: Seth Castro- Operative Report 06/03/18 Colonoscopy 05/10/24 - Dr. Hedrick @ [facility] Scan on 05/16/2024 9:34 AM by Norma Magallanes: [facility] operative note (path pending) [id number] Pathology Scan on 05/22/2024 8:26 AM by Be Cloud: [facility] Pathology Report 05/11/24 COLON, Biopsy, Cecum: COLONIC TISSUE WITH INVASIVE ADENOCARCI (more content not included)... Normal [facility] 29on 09-27-2024 29 Addended by: Ngozi JONES on: 09/27/2024 04:14 PM Modules accepted: Orders Normal [facility] Office Visiton 09-27-2024 Follow-up visit [id number] Piper Rodríguez 1970 [facility] Provider Department Center 09/27/2024 [id number] No family history on file Level of Service:[id number] [place] OFFICE/OUTPATIENT ESTABLISHED MOD MDM 30 MIN Normal [facility] Orders Onlyon 09-27-2024 Orders Only [id number] Piper Rodríguez 1970 Date Provider Department Center 09/27/2024 [id number] HAM[facility] No family history on file [facility] Abstracton 09-26-2024 Abstract [id number] Piper Rodríguez 1970 M Date Provider Department Center 09/26/2024 [id number] GONSALEZ [facility] Curt . No family history on file Normal [facility] Ambulatory Visit Summaryon 0 07-18-2024 Ambulatory Visit Summary Ambulatory Visit Summary PIPER RODRÍGUEZ :1970 Visit Date:07/18/2024 Ambulatory Visit Instructions Your Diagnosis Stage III adenocarcinoma of colon Your Care Team Attending Physician - FLORIDALMA PATEL, Jone Galeana Primary Care Physician - Casey PATEL, eGn This Is Your Medications List Contact prescribing physician if questions or concerns azilsartan (Edarbi) lactobacillus acidophilus (Acidophilus Probiotic Blend) methocarbamol (methocarbamol 500 mg Tab) Procedures Performed Insertion of implantable venous access port (07/05/2024), Right colectomy (06/14/2024), Colonoscopy (05/10/2024), EGD - esophagogastroduodenoscopy (05/10/2024), Colonoscopy (06/03/2018), Arthroplasty of left hip, Arthroplasty of right hip. Medications What How Much When Instructions Unchanged [...] Sleep apnea Stage III adenocarcinoma of colon Patient Survey You may receive a survey via text or e-mail asking about your office visit. Please share your experience with us by completing your survey. We appreciate your feedback and thank you for choosing us for your care. Normal [facility] General Surgery Office/Clini c Noteon 07-18-2024 General Surgery Office/Clinic Note General Surgery Office/Clinic Note Chief Complaint post operative foloow up HPI Staff 13 day post operative follow up post insertion of [id number]. Denies discomfort, no use of pain medication. Denies bleeding or drainage. Plan to access port for the first time next Wednesday. History of Present Illness 13 days s/o right external jugular port insertion; mild soreness, no drainage or pain; beginning chemotherapy next week. Review of Systems PHQ Score Initial Depression [...] and are negative or noncontributory. Physical Exam skin: incisions healing well, no erythema or drainage, no ecchymosis Assessment/Plan 1. Stage III adenocarcinoma of colon (C18.9: Malignant neoplasm of colon, unspecified) doing well; call with problems/questions. Follow-up No qualifying data available Problem List/Past Medical History Ongoing Anemia BMI 36.0-36.9,adult Colon neoplasm Epigastric pain Essential hypertension Fatty liver History of alcohol abuse Hyperlipidemia Intestinal malabsorption Iron deficiency anemia Mass of colon Morbid obesity Other pancytopenia Periumbilical abdominal pain Positive occult stool blood test Sleep apnea Stage III adenocarcinoma of colon Historical No qualifying data Procedure/Surgical History Insertion of implantable venous access port (07/05/2024), Right colectomy (06/14/2024), Colonoscopy (05/10/2024), EGD - [...] Tobacco Use:. Oral, 14 per day. Yes, 07/18/2024 Family History Cancer: Father. Primary malignant neoplasm of rectum: Mother. Immunizations Vaccine Date Status Comments SARS-CoV-2 (COVID-19) mRNA-1273 vaccine 09/19/2020 Recorded 2024-04-17: TPV40 SARS-CoV-2 (COVID-19) mRNA-1273 vaccine 08/22/2020 Recorded 2024-04-17: TPV40 Normal [facility] Comment on above: Result Comment: Elec tronically Signed By: FLORIDALMA PATEL, Jone Bell\Date and Time Signed: 07/18/24 14:26 EST Radha 07-07-2024 CNOV Office Visit ([id number] ) PIPER RODRÍGUEZ ([id number]) 1970 M Date Time Provider Department 07/07/24 9:00 AM MAYLIN CONTE [id number] During your visit today, we recorded the following information about you: Temperature Pulse Blood pressure Weight 97.9 degrees 88/minute 134/77 113.4 kg Height 1.778 m Varinder Phillips MA 07/07/2024 9:33 AM Signed What is the reason for your visit today? Post op follow up for staple removal Who is your referring physician? Are you having poor oral intake? NO Have you had unintentional weight loss of 15 lbs/7 Kg in the last 3-6 months? YES Bowels: regular Wound: clean AND dry Temperature: No Drains: No 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 APRN.CNP 07/07/2024 9:33 AM Signed [facility]ORECT[facility] SURGERY July 07, 2024 Piper Rodríguez 54 year old This consult was requested by Dr. Carias and my final recommendations will be communicated to the requesting health care provider by way of the shared medical record for internal providers or letter via the [employer] for external providers. Chief Complaint: post-op visit, staple removal History of Present Illness: Piper Rodríguez is a 54 year old male s/p a laparoscopic right colectomy on 06/14/[address] Carias for colon cancer and subsequent abdominal wall exploration and closure on 06/21/2024 for fascial dehiscence with evisceration. He presents today for his post-op and staple removal. He has been doing well the past several weeks at home. He denies any new or worsening pain, no longer taking pain medication for his abdomen. He recently had his port placed and his neck is sore. Denies any fevers or chills, no nausea, tolerating a diet GI soft. We discussed diet advancement today and what to watch for. Bowel movements are soft brown and much easier now than he was experiencing preop. All stools are nonbloody. He denies any incisional concerns aside from itching. No bleeding pain or discharge. We discussed lifting and activity restrictions as well as further follow-up necessary. PAST MEDICAL HISTORY Diagnosis Date BMI 38.0-38.9,adult Colon cancer (HCC) HTN (hypertension) PAST SURGICAL HISTORY Procedure Laterality Date COLONSCOPY SCREENING HIGH RISK PAST SURGICAL HISTORY OF Bilateral hip arthroplasty (2018, 2020) PAST SURGICAL HISTORY OF 04/2024 colonoscopy (2018) Current Outpatient Medications Medication Sig Dispense Refill enoxaparin (LOVENOX) 40 mg/0.4 mL Inject 0.4 mL subcutaneously every 24 hours for 21 days. 8.4 mL 0 EDARBI 80 mg tab prochlorperazine (COMPAZINE) 10 mg tablet Take 1 tablet by mouth every 6 hours as needed. (Patient not taking: Reported on 07/07/2024) 100 tablet 2 ondansetron (ZOFRAN) 8 mg tablet Take 1 tablet by mouth every 8 hours as needed for nausea/vomiting. (Patient not taking: Reported on 07/07/2024) 90 tablet 2 methocarbamol (ROBAXIN) 500 mg tablet Take 1 tablet by mouth three times a day. (Patient not taking: Reported on 07/07/2024) 20 tablet 0 acetaminophen (TYLENOL) 500 mg tablet Take 2 tablets by mouth every 6 hours. (Patient not taking: Reported on 06/28/2024) 50 tablet 0 lactobacillus rhamnosus (CULTURELLE) 10 billion cell capsule Take 1 capsule by mouth once daily. (Patient not taking: Reported on 07/07/2024) 30 capsule 0 iv contrast (will be provided with [...] in the CT contrast administration guidelines link. (Patient not taking: Reported on 07/07/2024) 1 Each 0 enteric contrast (will be provided with radiology test) For CT CHESTABD/PEL W IVCON Routine order Administer, As Directed One Time Only, via Oral, Rectal, both Oral and Rectal, Enteric Tube, Stoma or Indwelling Catheter, Enteric Contrast as designated per enteric contrast guidelines (Patient not taking: Reported on 07/07/2024) 1 Each 0 No current facility-administered medications for this visit. ALLERGIES No Known Allergies FAMILY HISTORY Problem Relation Age of Onset Cancer Mother Colon Cancer Maternal Grandmother other (bile duct cancer) Maternal Grandmother Social History Tobacco Use Smoking status: Never Smokeless tobacco: Current Types: Chew Vaping Use Vaping status: Never Used Substance Use Topics Alcohol use: Not Currently Drug use: Not Currently Physical Exam: BP 134/77 Pulse 88 Temp 36.6 ?C (97.9 ?F) (Temporal) Ht 177.8 cm (5' 10 ) Wt 113.4 kg (250 lb) SpO2 99% BMI 35.87 kg/m? General Appearance: Well appearing, alert, in no acute distress, well-hydrated, (more content not included)... [facility] PIPER RODRÍGUEZ ([id number]) 1970 M Date Time Provider Department 06/30/24 CHELLE WILLIS During your visit today, we recorded the following information about you: Chelle Willis RN 06/30/2024 11:10 AM Signed Voicemail received from pt's stating pt will be going to [place] to see their oncologist, and doesn't wish [...] Encounter Status:Closed by SABI ALLEN on 06/30/24 [facility] Rosemarie 06-29-2024 SURESHN Telephone ([employer]) PIPER RODRÍGUEZ ([id number]) 1970 Date Time Provider Department 06/29/24 CHELLE WILLIS During your visit today, we recorded the following information about you: Chelle Willis, RN 06/29/2024 12:44 PM Signed Pt will be in for education tomorrow. Please sign pending orders. Thanks Chelle Willis RN Allergies As of Date: 06/29/2024 (No Known Allergies) Date Reviewed: 06/28/2024 Reviewed by: Esthela Cantrell MA - Fully Assessed Reason for Visit: Care Coordination [3491] Cmt: Treatment prep Primary Visit Diagnosis:Malignant neoplasm of ascending colon (HCC) [C18.2] Order(s):prochlorperazine (COMPAZINE) 10 mg tabletTake 1 tablet by mouth every 6 hours as needed.Disp: 100 tabletRfl: 2 ondansetron (ZOFRAN) 8 mg tabletTake 1 tablet by mouth every 8 hours as needed for nausea/vomiting.Disp: 90 tabletRfl: 2 CONSULT TO SURVIVORSHIP [[id number]] Order #: [id number]: 1 FUTURE CONSULT TO ONCOLOGY NUTRITION [[id number]] Order #: [id number]: 1 FUTURE Prescriptions as of 07/05/2024 - prochlorperazine (COMPAZINE) 10 mg tablet Take [...] contrast guidelines Problem List As Of Date 06/29/2024 Noted Resolved BMI 38.0-38.9,adult [Z68.38] 06/08/2024 HTN (hypertension) [I10] 06/08/2024 Smokeless tobacco use [Z72.0] 06/08/2024 SHERIE (obstructive sleep apnea) [G47.33] 06/08/2024 Malignant neoplasm of ascending colon (HCC) [C1*06/14/2024 Nicotine use disorder, F17.2 [F17.200] 06/16/2024 Wound dehiscence [T81.30XA] 06/21/2024 06/23/2024 Perioperative dehiscence of abdominal wound wit*06/21/2024 06/23/2024 Prescriptions ordered this encounter Disp Refills Start End PROCHLORPERAZINE MALEATE 10 MG TABLET 100 * 2 06/29/2024 Route: ORAL Sig: Take 1 tablet by mouth every 6 hours as needed. ONDANSETRON HCL 8 MG TABLET 90 t* 2 06/29/2024 Route: ORAL Sig: Take 1 tablet by mouth every 8 hours as needed for nausea/vomiting. Encounter Status:Closed by CHELLE WILLIS on 07/05/24 Normal [facility] Ambulatory Visit Summaryon 0 06-28-2024 Ambulatory Visit Summary Ambulatory Visit Summary ANNE PIPER O :1970 Visit Date:06/28/2024 Ambulatory Visit Instructions Your [...] you for choosing us for your care. [facility] CNOVSPon 06-28-2024 CNOVSP Visit (SP) Office (H EMASA) PIPER RODRÍGUEZ ([id number]) 1970 M Date Time Provider Department 06/28/24 11:00 AM JOSEPH BRAGG During your visit today, we recorded the following information about you: Temperature Pulse Respiration Blood pressure 97.3 degrees 74/minute 18/minute 118/79 Weight Height 115.3 kg 1.778 m Joseph Bragg MD 06/28/2024 11:29 AM Signed PATIENT NAME: Piper Rodríguez CLINIC NO.: [id number] ATTENDING PHYSICIAN: Joseph Bragg MD DATE OF SERVICE: June 28, [address] Donis Carias [address] [facility] [address] thank you for referring Piper Rodríguez for [...] pT3 pN1b. [employer] Pending Works in a [employer]. Grand mother has colon cancer. No smoking. [...] appearance:ECOG PER (more content not included)... Normal [facility] Basic metabolic 2000 panelon 06-23-2024 Anion gap [Moles/Vol] 10 mmol/L Normal 8-15 [facility] Comment on above: Order Comment: Speci men Type: BLOOD SPECIMENOrdering Facility: [facility] Address: [address] [place] [id number] Performed By: #### 2 4321-2, , 2776-05 ####[facility] LABORATORYCLIA [id number] [place] [address] [place] Calcium [Mass/Vol] 8.9 mg/dL Normal 8.5-10.2 [facility] Comment on above: Order Comment: Speci men Type: BLOOD SPECIMENOrdering Facility: [facility] Address: [address] [place] [address] Performed By: #### 2 4321-2, , 2776-05 ####[facility] LABORATORYCLIA [id number] [place] [id number] [place] Chloride [Moles/Vol] 104 mmol/L Normal 98-107 [facility] Comment on above: Order Comment: Speci men Type: BLOOD SPECIMENOrdering Facility: [facility] Address: [address] [place] [address] Performed By: #### 2 4321-2, , 2776-05 ####[facility] LABORATORYCLIA [id number] [place] [id number] [place] CO2 [Moles/Vol] 24 mmol/L Normal 22-30 [facility] Comment on above: Order Comment: Speci men Type: BLOOD SPECIMENOrdering Facility: [facility] Address: [address] [place] [id number] Performed By: #### 2 4321-2, , 2776-05 ####[facility] LABORATORYCLIA [id number] [place] [address] [place] Creatinine [Mass/Vol] 0.96 mg/dL Normal 0.73-1.22 [facility] Comment on above: Order Comment: Speci men Type: BLOOD SPECIMENOrdering Facility: [facility] Address: [address] [place], [place] [address] Performed By: #### 2 4321-2, , 2776-05 ####[facility] LABORATORYCLIA [id number] [place] [address] [place] Creatinine and Glomerular filtration rate.predicted panel (S/P/Bld) 95 mL/min/1.73m??? Normal >=60 [facility] Comment on above: Order Comment: Ara powers Type: BLOOD SPECIMENOrdering Facility: [facility] Address: [address] [place] [address] Result Comment: Dee mated Glomerular Filtration Rate [...] Performed By: #### 2 4321-2, , 2776-05 ####[facility] LABORATORYCLIA [id number] [place] [id number] [place] Glucose [Mass/Vol] 105 mg/dL High 74-99 [facility] Comment on above: Order Comment: Ara powers Type: BLOOD SPECIMENOrdering Facility: [facility] Address: [address] [place] [address] Result Comment: The [place] Diabetes Association (ADA) provides guidance for cutoff [...] Standards of Medical Care in Diabetes 2016, [place] [employer]. Diabetes Care. 2016.39(Suppl 1). Performed By: #### 2 4321-2, , 2776-05 ####[facility] LABORATORYCLIA [id number] [place] [id number] [place] Potassium [Moles/Vol] 4.2 mmol/L Normal 3.7-5.1 [facility] Comment on above: Order Comment: Speci men Type: BLOOD SPECIMENOrdering Facility: [facility] Address: [address] [place] [address] Performed By: #### 2 4321-2, , 2776-05 ####[facility] LABORATORYCLIA [id number] [place] [id number] [place] Sodium [Moles/Vol] 138 mmol/L Normal 136-144 [facility] Comment on above: Order Comment: Speci men Type: BLOOD SPECIMENOrdering Facility: [facility] Address: [address] [place] [address] Performed By: #### 2 4321-2, , 2776-05 ####[facility] LABORATORYCLIA [id number] [place] [address] [place] Urea nitrogen [Mass/Vol] 13 mg/dL Normal 9-24 [facility] Comment on above: Order Comment: Speci men Type: BLOOD SPECIMENOrdering Facility: [facility] Address: [address] [place] [address] Performed By: #### 2 4321-2, , 2776-05 ####[facility] LABORATORYCLIA [id number] [place] [address] [place] CBC W Auto Differential pane l (Bld)on 06-23-2024 Basophils (Bld) [#/Vol] 0.05 10*3/uL Normal <0.11 [facility] Comment on above: Order Comment: Speci men Type: BLOOD SPECIMENOrdering Facility: [facility] Address: [address] [place] [address] Performed By: #### 5 7021-8 ####[facility]ORATORYCLIA [id number] [address] [place] Basophils/100 WBC (Bld) 0.8 % Normal [facility] Comment on above: Order Comment: Speci men Type: BLOOD SPECIMENOrdering Facility: [facility] Address: [address] [place] [address] Performed By: #### 5 7021-8 ####[facility] LABORATORYCLIA [id number] [place] [id number] [place] Differential cell count method Nom (Bld) Auto Normal [facility] Comment on above: Order Comment: Speci men Type: BLOOD SPECIMENOrdering Facility: [facility] Address: [address] [place] [address] Performed By: #### 5 7021-8 ####[facility] LABORATORYCLIA [id number] [place] [address] [place] Eosinophils (Bld) [#/Vol] 0.30 10*3/uL Normal <0.46 [facility] Comment on above: Order Comment: Speci men Type: BLOOD SPECIMENOrdering Facility: [facility] Address: [address] [place] [address] Performed By: #### 5 7021-8 ####[facility] LABORATORYCLIA [id number] [place] [address] [place] Eosinophils/100 WBC (Bld) 4.6 % Normal [facility] Comment on above: Order Comment: Speci men Type: BLOOD SPECIMENOrdering Facility: [facility] Address: [address] [place] [address] Performed By: #### 5 7021-8 ####[facility] LABORATORYCLIA [id number] [address] [place] Erythrocyte distribution width (RBC) [Ratio] 14.6 % Normal 11.5-15.0 [facility] Comment on above: Order Comment: Speci men Type: BLOOD SPECIMENOrdering Facility: [facility] Address: [address] [place] [address] Performed By: #### 5 7021-8 ####[facility] LABORATORYCLIA [id number] [address] [place] Hematocrit (Bld) [Volume fraction] 38.0 % Low 39.0-51.0 [facility] Comment on above: Order Comment: Speci men Type: BLOOD SPECIMENOrdering Facility: [facility] Address: [address] [place] [address] Performed By: #### 5 7021-8 ####[facility] LABORATORYCLIA [id number] [place] [id number] [place] Hemoglobin (Bld) [Mass/Vol] 11.9 g/dL Low 13.0-17.0 [facility] Comment on above: Order Comment: Speci men Type: BLOOD SPECIMENOrdering Facility: [facility] Address: [address] [place] [address] Performed By: #### 5 7021-8 ####[facility] LABORATORYCLIA [id number] [place] [id number] [place] Immature granulocytes (Bld) [#/Vol] 0.04 10*3/uL Normal <0.10 [facility] Comment on above: Order Comment: Speci men Type: BLOOD SPECIMENOrdering Facility: [facility] Address: [address] [place] [address] Performed By: #### 5 7021-8 ####[facility] LABORATORYCLIA [id number] [place] [address] [place] Immature granulocytes/100 WBC (Bld) 0.6 % Normal [facility] Comment on above: Order Comment: Speci men Type: BLOOD SPECIMENOrdering Facility: [facility] Address: [address] [place] [address] Performed By: #### 5 7021-8 ####[facility] LABORATORYCLIA [id number] [place] [id number] [place] Lymphocytes (Bld) [#/Vol] 1.78 10*3/uL Normal 1.00-4.00 [facility] Comment on above: Order Comment: Speci men Type: BLOOD SPECIMENOrdering Facility: [facility] Address: [address] [place] [address] Performed By: #### 5 7021-8 ####[facility] LABORATORYCLIA [id number] [place] [id number] [place] Lymphocytes/100 WBC (Bld) 27.0 % Normal [facility] Comment on above: Order Comment: Speci men Type: BLOOD SPECIMENOrdering Facility: [facility] Address: [address] [place] [address] Performed By: #### 5 7021-8 ####[facility] LABORATORYCLIA [id number] [address] [place] [facility] MCH (RBC) [Entitic mass] 29.3 pg Normal 26.0-34.0 [facility] Comment on above: Order Comment: Speci men Type: BLOOD SPECIMENOrdering Facility: [facility] Address: [address] [place] [address] Performed By: #### 5 7021-8 ####[facility] LABORATORYCLIA [id number] [address] [place] MCHC (RBC) [Mass/Vol] 31.3 g/dL Normal 30.5-36.0 [facility] Comment on above: Order Comment: Speci men Type: BLOOD SPECIMENOrdering Facility: [facility] Address: [address] [place] [address] Performed By: #### 5 7021-8 ####[facility] LABORATORYCLIA [id number] [place] [address] [place] MCV (RBC) [Entitic vol] 93.6 fL Normal 80.0-100.0 [facility] Comment on above: Order Comment: Speci men Type: BLOOD SPECIMENOrdering Facility: [facility] Address: [address] [place] [address] Performed By: #### 5 7021-8 ####[facility] LABORATORYCLIA [id number] [address] [place] Monocytes (Bld) [#/Vol] 0.84 10*3/uL Normal <0.87 [facility] Comment on above: Order Comment: Speci men Type: BLOOD SPECIMENOrdering Facility: [facility] Address: [address] [place] [address] Performed By: #### 5 7021-8 ####[facility] LABORATORYCLIA [id number] [address] [place] Monocytes/100 WBC (Bld) 12.7 % Normal [facility] Comment on above: Order Comment: Speci men Type: BLOOD SPECIMENOrdering Facility: [facility] Address: [address] [place] [address] Performed By: #### 5 7021-8 ####[facility] LABORATORYCLIA [id number] [place] [address] [place] Neutrophils (Bld) [#/Vol] 3.58 10*3/uL Normal 1.45-7.50 [facility] Comment on above: Order Comment: Speci men Type: BLOOD SPECIMENOrdering Facility: [facility] Address: [address] [place] [address] Performed By: #### 5 7021-8 ####[facility] LABORATORYCLIA [id number] [place] [address] [place] Neutrophils/100 WBC (Bld) 54.3 % Normal [facility] Comment on above: Order Comment: Speci men Type: BLOOD SPECIMENOrdering Facility: [facility] Address: [address] [place] [address] Performed By: #### 5 7021-8 ####[facility] LABORATORYCLIA [id number] [place] [address] [place] Nucleated RBC (Bld) [#/Vol] 10*3/uL Normal <0.01 [facility] Comment on above: Order Comment: Speci men Type: BLOOD SPECIMENOrdering Facility: [facility] Address: [address] [place] [address] Performed By: #### 5 7021-8 ####[facility] LABORATORYCLIA [id number] [place] [id number] [place] Nucleated RBC/100 WBC (Bld) [Ratio] 0.0 /100 WBC Normal [facility] Comment on above: Order Comment: Speci men Type: BLOOD SPECIMENOrdering Facility: [facility] Address: [address] [place] [address] Performed By: #### 5 7021-8 ####[facility] LABORATORYCLIA [id number] [place] [address] [place] Platelet mean volume (Bld) [Entitic vol] 10.8 fL Normal 9.0-12.7 [facility] Comment on above: Order Comment: Speci men Type: BLOOD SPECIMENOrdering Facility: [facility] Address: [address] [place] [address] Performed By: #### 5 7021-8 ####[facility]ORATORYCLIA [id number] [place] [id number] [place] Platelets (Bld) [#/Vol] 187 10*3/uL Normal 150-400 [facility] Comment on above: Order Comment: Speci men Type: BLOOD SPECIMENOrdering Facility: [facility] Address: [address] [place] [address] Performed By: #### 5 7021-8 ####[facility]ORATORYCLIA [id number] [place] [address] [place] RBC (Bld) [#/Vol] 4.06 10*6/uL Low 4.20-6.00 [facility] Comment on above: Order Comment: Speci men Type: BLOOD SPECIMENOrdering Facility: [facility] Address: [address] [place] [address] Performed By: #### 5 7021-8 ####[facility] LABORATORYCLIA [id number] [place] [id number] [place] WBC (Bld) [#/Vol] 6.59 10*3/uL Normal 3.70-11.00 [facility] Comment on above: Order Comment: Speci men Type: BLOOD SPECIMENOrdering Facility: [facility] Address: [address] [place] [address] Performed By: #### 5 7021-8 ####[facility] LABORATORYCLIA [id number] [place] [id number] [facility] CNDSon 06-23-2024 CNDS HNO ID: [id number] Author: LASHONDA DELGADO MD Service: Colorectal Author [...] Your Medications These medications were sent to [facility] [place] [id number] - [address] - [phone] [place] [address] methocarbamol 500 mg tablet Future Appointments: Future Appointments Date Time Provider Department Center 07/05/2024 10:40 AM 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 APRN.GALLERY DIRECTOR [id number] [facility] You will receive a phone call from our clinic nurse to check in on you in 5-7 days from discharge before your follow up appointment. Signed by Physician: Lashonda Delgado MD [facility] Magnesium SerPl-mCncon 06-23 Magnesium [Mass/Vol] 2.1 mg/dL Normal 1.7-2.3 [facility] Comment on above: Order Comment: Speci men Type: BLOOD SPECIMENOrdering Facility: [facility] Address: [address] [place] [address] Performed By: #### 2 4321-2, 66347-9, 2776-05 ####[facility] LABORATORYCLIA [id number] [place] [id number] [place] Phosphate SerPl-ncon 06-23 Phosphate [Mass/Vol] 3.2 mg/dL Normal 2.7-4.8 [facility] Comment on above: Order Comment: Speci men Type: BLOOD SPECIMENOrdering Facility: [facility] Address: [address] [place] [address] Performed By: #### 2 4321-2, , 2776-05 ####[facility] LABORATORYCLIA [id number] [place] [id number] [place] Basic metabolic 2000 panelon 06-22-2024 Anion gap [Moles/Vol] 9 mmol/L Normal 8-15 [facility] Comment on above: Order Comment: Speci men Type: BLOOD SPECIMENOrdering Facility: [facility] Address: [address] [place] [address] Performed By: #### 2 4321-2, 2776-, ####[facility] LABORATORYCLIA [id number] [place] [address] [place] Calcium [Mass/Vol] 8.9 mg/dL Normal 8.5-10.2 [facility] Comment on above: Order Comment: Speci men Type: BLOOD SPECIMENOrdering Facility: [facility] Address: [address] [place] [address] Performed By: #### 2 4321-2, 2776-, ####[facility]ORATORYCLIA [id number] [place] [address] [place] Chloride [Moles/Vol] 103 mmol/L Normal 98-107 [facility] Comment on above: Order Comment: Speci men Type: BLOOD SPECIMENOrdering Facility: [facility] Address: [address] [place] [address] Performed By: #### 2 4321-2, 2777-, ####[facility]ORATORYCLIA [id number] [place] [id number] [place] CO2 [Moles/Vol] 24 mmol/L Normal 22-30 [facility] Comment on above: Order Comment: Speci men Type: BLOOD SPECIMENOrdering Facility: [facility] Address: [address] [place] [address] Performed By: #### 2 4321-2, 2777, ####[facility]ORATORYCLIA [id number] [place] [id number] [place] Creatinine [Mass/Vol] 0.93 mg/dL Normal 0.73-1.22 [facility] Comment on above: Order Comment: Speci men Type: BLOOD SPECIMENOrdering Facility: [facility] Address: [address] [place] [address] Performed By: #### 2 4321-2, 2777, ####[facility]ORATORYCLIA [id number] [place] [id number] [place] Creatinine and Glomerular filtration rate.predicted panel (S/P/Bld) 98 mL/min/1.73m??? Normal >=60 [facility] Comment on above: Order Comment: Speci men Type: BLOOD SPECIMENOrdering Facility: [facility] Address: [address] [place] [address] Result Comment: Dee mated Glomerular Filtration Rate [...] actual GFR. Performed By: #### 2 4321-2, 2776-05, ####[facility] LABORATORYCLIA [id number] [place] [id number] [place] Glucose [Mass/Vol] 107 mg/dL High 74-99 [facility] Comment on above: Order Comment: Ara powers Type: BLOOD SPECIMENOrdering Facility: [facility] Address: [address] [place] [address] Result Comment: The [place] [employer] (ADA) provides guidance for cutoff [...] Standards of Medical Care in Diabetes 2016, [place] [employer]. Diabetes Care. 2016.39(Suppl 1). Performed By: #### 2 4321-2, 2776-05, ####[facility] LABORATORYCLIA [id number] [place] [address] [place] Potassium [Moles/Vol] 4.6 mmol/L Normal 3.7-5.1 [facility] Comment on above: Order Comment: Ara powers Type: BLOOD SPECIMENOrdering Facility: [facility] Address: [address] [place] [address] Performed By: #### 2 4321-2, 27711-21, ####[facility] LABORATORYCLIA [id number] [place] [id number] [place] Sodium [Moles/Vol] 136 mmol/L Normal 136-144 [facility] Comment on above: Order Comment: Ara powers Type: BLOOD SPECIMENOrdering Facility: [facility] Address: [address] [place] [address] Performed By: #### 2 4321-2, 2776-, ####[facility] LABORATORYCLIA [id number] [place] [id number] [place] [facility] Urea nitrogen [Mass/Vol] 13 mg/dL Normal 9-24 [facility] Comment on above: Order Comment: Speci men Type: BLOOD SPECIMENOrdering Facility: [facility] Address: [address] [place] [address] Performed By: #### 2 4321-2, 2776-05, ####[facility] LABORATORYCLIA [id number] [place] [id number] [place] CBC W Auto Differential pane l (Bld)on 06-22-2024 Basophils (Bld) [#/Vol] 0.03 10*3/uL Normal <0.11 [facility] Comment on above: Order Comment: Speci men Type: BLOOD SPECIMENOrdering Facility: [facility] Address: [address] [place] [address] Performed By: #### 5 7021-8 ####[facility] LABORATORYCLIA [id number] [place] [address] [place] Basophils/100 WBC (Bld) 0.3 % Normal [facility] Comment on above: Order Comment: Speci men Type: BLOOD SPECIMENOrdering Facility: [facility] Address: [address] [place] [address] Performed By: #### 5 7021-8 ####[facility] LABORATORYCLIA [id number] [place] [address] [place] Differential cell count method Nom (Bld) Auto Normal [facility] Comment on above: Order Comment: Speci men Type: BLOOD SPECIMENOrdering Facility: [facility] Address: [address] [place] [address] Performed By: #### 5 7021-8 ####[facility] LABORATORYCLIA [id number] [place] [address] [place] Eosinophils (Bld) [#/Vol] 0.12 10*3/uL Normal <0.46 [facility] Comment on above: Order Comment: Speci men Type: BLOOD SPECIMENOrdering Facility: [facility] Address: [address] [place] [address] Performed By: #### 5 7021-8 ####[facility] LABORATORYCLIA [id number] [place] [address] [place] Eosinophils/100 WBC (Bld) 1.4 % Normal [facility] Comment on above: Order Comment: Speci men Type: BLOOD SPECIMENOrdering Facility: [facility] Address: [address] [place] [address] Performed By: #### 5 7021-8 ####[facility] LABORATORYCLIA [id number] [address] [place] Erythrocyte distribution width (RBC) [Ratio] 14.6 % Normal 11.5-15.0 [facility] Comment on above: Order Comment: Speci men Type: BLOOD SPECIMENOrdering Facility: [facility] Address: [address] [place] [address] Performed By: #### 5 7021-8 ####[facility] LABORATORYCLIA [id number] [address] [place] Hematocrit (Bld) [Volume fraction] 40.4 % Normal 39.0-51.0 [facility] Comment on above: Order Comment: Speci men Type: BLOOD SPECIMENOrdering Facility: [facility] Address: [address] [place] [address] Performed By: #### 5 7021-8 ####[facility] LABORATORYCLIA [id number] [place] [address] [place] Hemoglobin (Bld) [Mass/Vol] 12.8 g/dL Low 13.0-17.0 [facility] Comment on above: Order Comment: Speci men Type: BLOOD SPECIMENOrdering Facility: [facility] Address: [address] [place] [address] Performed By: #### 5 7021-8 ####[facility] LABORATORYCLIA [id number] [address] [place] Immature granulocytes (Bld) [#/Vol] 0.05 10*3/uL Normal <0.10 [facility] Comment on above: Order Comment: Speci men Type: BLOOD SPECIMENOrdering Facility: [facility] Address: [address] [place] [address] Performed By: #### 5 7021-8 ####[facility] LABORATORYCLIA [id number] [place] [address] [place] Immature granulocytes/100 WBC (Bld) 0.6 % Normal [facility] Comment on above: Order Comment: Speci men Type: BLOOD SPECIMENOrdering Facility: [facility] Address: [address] [place] [address] Performed By: #### 5 7021-8 ####[facility] LABORATORYCLIA [id number] [place] [address] [place] Lymphocytes (Bld) [#/Vol] 1.14 10*3/uL Normal 1.00-4.00 [facility] Comment on above: Order Comment: Speci men Type: BLOOD SPECIMENOrdering Facility: [facility] Address: [address] [place] [address] Performed By: #### 5 7021-8 ####[facility] LABORATORYCLIA [id number] [address] STATES [facility] Lymphocytes/100 WBC (Bld) 13.1 % Normal [facility] Comment on above: Order Comment: Speci men Type: BLOOD SPECIMENOrdering Facility: [facility] Address: [address] [place] [address] Performed By: #### 5 7021-8 ####[facility] LABORATORYCLIA [id number] [place] [id number] [place] MCH (RBC) [Entitic mass] 29.5 pg Normal 26.0-34.0 [facility] Comment on above: Order Comment: Speci men Type: BLOOD SPECIMENOrdering Facility: [facility] Address: [address] [place] [address] Performed By: #### 5 7021-8 ####[facility] LABORATORYCLIA [id number] [place] [address] [place] MCHC (RBC) [Mass/Vol] 31.7 g/dL Normal 30.5-36.0 [facility] Comment on above: Order Comment: Speci men Type: BLOOD SPECIMENOrdering Facility: [facility] Address: [address] [place] [address] Performed By: #### 5 7021-8 ####[facility] LABORATORYCLIA [id number] [place] [address] [place] MCV (RBC) [Entitic vol] 93.1 fL Normal 80.0-100.0 [facility] Comment on above: Order Comment: Speci men Type: BLOOD SPECIMENOrdering Facility: [facility] Address: [address] [place] [address] Performed By: #### 5 7021-8 ####[facility] LABORATORYCLIA [id number] [place] [address] [place] Monocytes (Bld) [#/Vol] 1.05 10*3/uL High <0.87 [facility] Comment on above: Order Comment: Speci men Type: BLOOD SPECIMENOrdering Facility: [facility] Address: [address] [place] [address] Performed By: #### 5 7021-8 ####[facility] LABORATORYCLIA [id number] [address] [place] Monocytes/100 WBC (Bld) 12.1 % Normal [facility] Comment on above: Order Comment: Speci men Type: BLOOD SPECIMENOrdering Facility: [facility] Address: [address] [place] [address] Performed By: #### 5 7021-8 ####[facility] LABORATORYCLIA [id number] [place] [id number] [place] Neutrophils (Bld) [#/Vol] 6.31 10*3/uL Normal 1.45-7.50 [facility] Comment on above: Order Comment: Speci men Type: BLOOD SPECIMENOrdering Facility: [facility] Address: [address] [place] [address] Performed By: #### 5 7021-8 ####[facility] LABORATORYCLIA [id number] [place] [id number] [place] Neutrophils/100 WBC (Bld) 72.5 % Normal [facility] Comment on above: Order Comment: Speci men Type: BLOOD SPECIMENOrdering Facility: [facility] Address: [address] [place] [address] Performed By: #### 5 7021-8 ####[facility] LABORATORYCLIA [id number] [place] [id number] [place] Nucleated RBC (Bld) [#/Vol] 10*3/uL Normal <0.01 [facility] Comment on above: Order Comment: Speci men Type: BLOOD SPECIMENOrdering Facility: [facility] Address: [address] [place] [address] Performed By: #### 5 7021-8 ####[facility] LABORATORYCLIA [id number] [place] [address] [place] Nucleated RBC/100 WBC (Bld) [Ratio] 0.0 /100 WBC Normal [facility] Comment on above: Order Comment: Speci men Type: BLOOD SPECIMENOrdering Facility: [facility] Address: [address] [place] [address] Performed By: #### 5 7021-8 ####[facility] LABORATORYCLIA [id number] [place] [id number] [place] Platelet mean volume (Bld) [Entitic vol] 10.7 fL Normal 9.0-12.7 [facility] Comment on above: Order Comment: Speci men Type: BLOOD SPECIMENOrdering Facility: [facility] Address: [address] [place] [address] Performed By: #### 5 7021-8 ####[facility] LABORATORYCLIA [id number] [place] [id number] [place] Platelets (Bld) [#/Vol] 192 10*3/uL Normal 150-400 [facility] Comment on above: Order Comment: Speci men Type: BLOOD SPECIMENOrdering Facility: [facility] Address: [address] [place], [place] [address] Performed By: #### 5 7021-8 ####[facility] LABORATORYCLIA [id number] [place] [id number] [place] RBC (Bld) [#/Vol] 4.34 10*6/uL Normal 4.20-6.00 [facility] Comment on above: Order Comment: Speci men Type: BLOOD SPECIMENOrdering Facility: [facility] Address: [address] [place] [address] Performed By: #### 5 7021-8 ####[facility] LABORATORYCLIA [id number] [place] [id number] [place] WBC (Bld) [#/Vol] 8.70 10*3/uL Normal 3.70-11.00 [facility] Comment on above: Order Comment: Speci men Type: BLOOD SPECIMENOrdering Facility: [facility] Address: [address] [place] [address] Performed By: #### 5 7021-8 ####[facility] LABORATORYCLIA [id number] [place] [id number] [place] Magnesium SerPl-mCncon 06-22 Magnesium [Mass/Vol] 2.1 mg/dL Normal 1.7-2.3 [facility] Comment on above: Order Comment: Speci men Type: BLOOD SPECIMENOrdering Facility: [facility] Address: [address] [place] [address] Performed By: #### 2 4321-2, 2777, ####[facility] LABORATORYCLIA [id number] [place] [id number] [place] Phosphate SerPl-mCncon 06-22 Phosphate [Mass/Vol] 3.8 mg/dL Normal 2.7-4.8 [facility] Comment on above: Order Comment: Speci men Type: BLOOD SPECIMENOrdering Facility: [facility] Address: [address] [place] [address] Performed By: #### 2 4321-2, 2777-, ####[facility]ORATORYCLIA [id number] [place] [address] [place] ANES POSTPROC EVALon 025 ANES POSTPROC EVAL HNO ID: [id number] Author: OLGA LIDIA WHITEHEAD MD Service: Anesthesiology [...] June 21, 2024 TIME: 5:30 PM CSN: [id number] [facility] ANES PRE-OPon 06-21-2024 ANES PRE-OP HNO ID: [id number] Author: YU BERRIOS MD Service: Anesthesiology Author Type: Anesthesiologist Type: Anesthesia Preprocedure Evaluation Filed: 06/21/2024 15:44 Note Text: ANESTHESIOLOGY DAY OF SURGERY NOTE : 1970 Procedure Information Date/Time: 06/21/24 1500 Procedure: EXPLORATORY LAPAROTOMY (Abdomen) Location: OR07 / [facility] OR Surgeons: Donis Carias MD Estimated body mass index is 37.31 [...] June 21, 2024 TIME: 3:43 PM CSN: [id number] Normal [facility] CBC panel Auto (Bld)on 06-21 Erythrocyte distribution width (RBC) [Ratio] 14.7 % Normal 11.5-15.0 [facility] Comment on above: Order Comment: Speci men Type: BLOOD SPECIMENOrdering Facility: [facility] Address: [address] [place] [address] Performed By: #### 5 8410-2 ####[facility] LABORATORYCLIA [id number] [address] [place] Hematocrit (Bld) [Volume fraction] 45.2 % Normal 39.0-51.0 [facility] Comment on above: Order Comment: Speci men Type: BLOOD SPECIMENOrdering Facility: [facility] Address: [address] [place] [address] Performed By: #### 5 8410-2 ####[facility] LABORATORYCLIA [id number] [place] [address] [place] Hemoglobin (Bld) [Mass/Vol] 14.3 g/dL Normal 13.0-17.0 [facility] Comment on above: Order Comment: Speci men Type: BLOOD SPECIMENOrdering Facility: [facility] Address: [address] [place] [address] Performed By: #### 5 8410-2 ####[facility] LABORATORYCLIA [id number] [place] [address] [place] MCH (RBC) [Entitic mass] 29.4 pg Normal 26.0-34.0 [facility] Comment on above: Order Comment: Speci men Type: BLOOD SPECIMENOrdering Facility: [facility] Address: [address] [place] [address] Performed By: #### 5 8410-2 ####[facility] LABORATORYCLIA [id number] [place] [address] [place] MCHC (RBC) [Mass/Vol] 31.6 g/dL Normal 30.5-36.0 [facility] Comment on above: Order Comment: Speci men Type: BLOOD SPECIMENOrdering Facility: [facility] Address: [address] [place] [address] Performed By: #### 5 8410-2 ####[facility] LABORATORYCLIA [id number] [address] [place] MCV (RBC) [Entitic vol] 93.0 fL Normal 80.0-100.0 [facility] Comment on above: Order Comment: Speci men Type: BLOOD SPECIMENOrdering Facility: [facility] Address: [address] [place] [address] Performed By: #### 5 8410-2 ####[facility] LABORATORYCLIA [id number] [place] [id number] [place] Nucleated RBC (Bld) [#/Vol] 10*3/uL Normal <0.01 [facility] Comment on above: Order Comment: Speci men Type: BLOOD SPECIMENOrdering Facility: [facility] Address: [address] [place] [address] Performed By: #### 5 8410-2 ####[facility]ORATORYCLIA [id number] [place] [address] [place] Platelet mean volume (Bld) [Entitic vol] 11.0 fL Normal 9.0-12.7 [facility] Comment on above: Order Comment: Speci men Type: BLOOD SPECIMENOrdering Facility: [facility] Address: [address] [place] [address] Performed By: #### 5 8410-2 ####[facility] LABORATORYCLIA [id number] [place] [address] [place] Platelets (Bld) [#/Vol] 222 10*3/uL Normal 150-400 [facility] Comment on above: Order Comment: Speci men Type: BLOOD SPECIMENOrdering Facility: [facility] Address: [address] [place] [address] Performed By: #### 5 8410-2 ####[facility] LABORATORYCLIA [id number] [place] [id number] [place] RBC (Bld) [#/Vol] 4.86 10*6/uL Normal 4.20-6.00 [facility] Comment on above: Order Comment: Speci men Type: BLOOD SPECIMENOrdering Facility: [facility] Address: [address] [place] [address] Performed By: #### 5 8410-2 ####[facility]ORATORYCLIA [id number] [place] [id number] [place] WBC (Bld) [#/Vol] 7.87 10*3/uL Normal 3.70-11.00 [facility] Comment on above: Order Comment: Speci men Type: BLOOD SPECIMENOrdering Facility: [facility] Address: [address] [place] [id number] Performed By: #### 5 8410-2 ####[facility] LABORATORYCLIA [id number] [address] OF [facility] CNPNazanin 06-21-2024 CNPN Telephone ([facility]) PIPER RODRÍGUEZ ([id number]) 1970 M Date Time Provider Department 06/21/24 DONIS CARIAS [facility] During your visit today, we recorded the [...] for his appointment tomorrow vs going to [facility]. Ultimately, he thinks he will go to [facility]. Allergies As of Date: 06/21/2024 (No [...] Status:Closed by JOCELYN CANTRELL on 06/21/24 Normal [facility] Comprehensive metabolic 2000 panelon 06-21-2024 Albumin [Mass/Vol] 4.2 g/dL Normal 3.9-4.9 [facility] Comment on above: Order Comment: Ara powers Type: BLOOD SPECIMENOrdering Facility: [facility] Address: [address] [place] [address] Performed By: #### 1 9123-9, 68756-0 ####[facility] LABORATORYCLIA [id number] [place] [address] [place] ALP [Catalytic activity/Vol] 72 U/L Normal 38-113 [facility] Comment on above: Order Comment: Ara powers Type: BLOOD SPECIMENOrdering Facility: [facility] Address: [address] [place] [address] Performed By: #### 1 23-9, 19454-0 ####[facility] LABORATORYCLIA [id number] [place] [address] [place] ALT [Catalytic activity/Vol] 91 U/L High 10-54 [facility] Comment on above: Order Comment: Speci men Type: BLOOD SPECIMENOrdering Facility: [facility] Address: [facility] [address] Performed By: #### 1 23-9, ####[facility] LABORATORYCLIA [id number] [place] [address] [place] Anion gap [Moles/Vol] 11 mmol/L Normal 8-15 [facility] Comment on above: Order Comment: Speci men Type: BLOOD SPECIMENOrdering Facility: [facility] Address: [facility] [address] Performed By: #### 1 239, 41068-1 ####[facility] LABORATORYCLIA [id number] [place] [id number] [place] AST [Catalytic activity/Vol] 58 U/L High 14-40 [facility] Comment on above: Order Comment: Speci men Type: BLOOD SPECIMENOrdering Facility: [facility] Address: [facility] [place] [address] Performed By: #### 1 23-9, 64728-6 ####[facility] LABORATORYCLIA [id number] [place] [id number] [place] Bilirubin [Mass/Vol] 0.3 mg/dL Normal 0.2-1.3 [facility] Comment on above: Order Comment: Speci men Type: BLOOD SPECIMENOrdering Facility: [facility] Address: [facility] [place] [address] Performed By: #### 1 23-9, 11355-4 ####[facility] LABORATORYCLIA [id number] [place] [address] [place] Calcium [Mass/Vol] 9.6 mg/dL Normal 8.5-10.2 [facility] Comment on above: Order Comment: Speci men Type: BLOOD SPECIMENOrdering Facility: [facility] Address: [address] [place] [address] Performed By: #### 1 9123-9, 43534-5 ####[facility] LABORATORYCLIA [id number] [place] [address] [place] Chloride [Moles/Vol] 99 mmol/L Normal 98-107 [facility] Comment on above: Order Comment: Speci men Type: BLOOD SPECIMENOrdering Facility: [facility] Address: [address] [place] [address] Performed By: #### 1 9123-9, 73022-8 ####[facility] LABORATORYCLIA [id number] [place] [id number] [place] CO2 [Moles/Vol] 28 mmol/L Normal 22-30 [facility] Comment on above: Order Comment: Speci men Type: BLOOD SPECIMENOrdering Facility: [facility] Address: [address] [place] [address] Performed By: #### 1 9123-9, ####[facility] LABORATORYCLIA [id number] [place] [id number] [place] Creatinine [Mass/Vol] 0.99 mg/dL Normal 0.73-1.22 [facility] Comment on above: Order Comment: Speci men Type: BLOOD SPECIMENOrdering Facility: [facility] Address: [address] [place] [address] Performed By: #### 1 9123-9, ####[facility] LABORATORYCLIA [id number] [place] [id number] [place] Creatinine and Glomerular filtration rate.predicted panel (S/P/Bld) 91 mL/min/1.73m??? Normal >=60 [facility] Comment on above: Order Comment: Speci men Type: BLOOD SPECIMENOrdering Facility: [facility] Address: [address] [place] [address] Result Comment: Dee mated Glomerular Filtration Rate [...] actual GFR. Performed By: #### 1 9123-9, ####[facility] LABORATORYCLIA [id number] [place] [address] [place] Glucose [Mass/Vol] 102 mg/dL High 74-99 [facility] Comment on above: Order Comment: Ara powers Type: BLOOD SPECIMENOrdering Facility: [facility] Address: [address] [place] [address] Result Comment: The [place] [employer] (ADA) provides guidance for cutoff [...] Standards of Medical Care in Diabetes 2016, [place] [employer]. Diabetes Care. 2016.39(Suppl 1). Performed By: #### 1 23-9, ####[facility] LABORATORYCLIA [id number] [place] [id number] [place] Potassium [Moles/Vol] 4.3 mmol/L Normal 3.7-5.1 [facility] Comment on above: Order Comment: Ara powers Type: BLOOD SPECIMENOrdering Facility: [facility] Address: [address] [place] [address] Performed By: #### 1 23-9, ####[facility] LABORATORYCLIA [id number] [place] [address] [place] Protein [Mass/Vol] 8.0 g/dL Normal 6.3-8.0 [facility] Comment on above: Order Comment: Speci men Type: BLOOD SPECIMENOrdering Facility: [facility] Address: [address] [place] [address] Performed By: #### 1 9123-9, ####[facility] LABORATORYCLIA [id number] [place] [id number] [facility] Sodium [Moles/Vol] 138 mmol/L Normal 136-144 [facility] Comment on above: Order Comment: Speci men Type: BLOOD SPECIMENOrdering Facility: [facility] Address: [address] [place] [address] Performed By: #### 1 9123-9, ####[facility] LABORATORYCLIA [id number] [place] [id number] [facility] Urea nitrogen [Mass/Vol] 14 mg/dL Normal 9-24 [facility] Comment on above: Order Comment: Speci men Type: BLOOD SPECIMENOrdering Facility: [facility] Address: [address] [place] [address] Performed By: #### 1 9123-9, ####[facility] LABORATORYCLIA [id number] [place] [id number] [facility] ED NOTEon 06-21-2024 ED NOTE HNO ID: [id number] Author: JOSÉ MIGUEL LARA RN Service: ? Author Type: Registered Nurse Type: ED Notes Filed: 06/21/2024 13:48 Note Text: Bed: 55-ED Expected date: Expected time: Means of arrival: Comments: triage Normal [facility] ED PROV NOTEon 06-21-2024 ED PROV NOTE HNO ID: [id number] Author: GINO ANGEL MD Service: Emergency Medicine [...] on June [address] Carias at [facility]. States had been doing well. States that yesterday the wound opened minimally. He presented to [facility]. States the physician said [...] at bed (more content not included)... Normal [facility] ED Triage Noteon 06-21-2024 ED Triage Note HNO ID: [id number] Author: ETHAN QUINTERO DO Service: Emergency Medicine Author Type: Physician [...] full HANDP as well as MDM SIGNATURE: DO Andrea Vee [facility] EKGon 06-21-2024 Electrocardiogram Ventricular Rate : 4 7 BPM Atrial Rate : 48 BPM P-R Interval : 173 ms QRS Duration : 105 ms Q-T Interval : 447 ms QTC Calculation(Bazett) : 396 ms Calculated P [place] : 44 degrees Calculated R [place] : 40 degrees Calculated T [place] : 58 degrees Sinus bradycardia Otherwise Normal ECG Confirmed by MD ANGEL JAMES ([id number]) on 06/21/2024 2:14:56 PM NAME : PIPER RODRÍGUEZ PID : [id number] : 1970 Gender : Male Race : [...] Referred By : , Acquired by : [id number], Normal [facility] HISTORY PHYSICALon HISTORY PHYSICAL HNO ID: [id number] Author: MAIKEL JUSTICE MD Service: Colorectal Author [...] contents. They were worried so presented to [place] [facility]. Pt's showed me a photo of [...] concerns and was told to present to [facility] for further evaluation. Per pt has [...] DATE: June 21, 2024 TIME: 2:56 PM Normal [facility] Magnesium SerPl-mCncon 06-21 Magnesium [Mass/Vol] 2.3 mg/dL Normal 1.7-2.3 [facility] Comment on above: Order Comment: Speci men Type: BLOOD SPECIMENOrdering Facility: [facility] Address: [address] [place] [address] Performed By: #### 1 9123-9, 02455-3 ####[facility] LABORATORYCLIA [id number] [address] [place] NURSING PROGon 06-21-2024 NURSING PROG HNO ID: [id number] Author: OLYA SIEGEL RN Service: Nursing Author Type: Registered Nurse Type: Nursing Progress Note Filed: 06/21/2024 19:56 Note Text: Transfer Note: PATIENT NAME: Piper Rodríguez Patient Location: [place] [address] [address] Room: [place] [address] Patient transferred into room/unit [facility] in stable condition. Actions taken: Room oriented, call light in reach, family at beside. 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 She states it has opened up. Asking to speak to nurse to find out if they should go to local ER # [phone] Jocelyn Cantrell RN 06/20/2024 3:17 PM Signed [...] Encounter Status:Closed by JOCELYN CANTRELL on 06/20/24 [facility] CNCOon 06-19-2024 CNCO Letter Text [facility] CNPNon 06-19-2024 CNPN Telephone ([facility]) PIPER RODRÍGUEZ ([id number]) 1970 M Date Time Provider Department 06/19/24 DONIS CARIAS [facility] During your visit today, we recorded the following information about you: Maura Casiano 06/19/2024 1:29 PM Signed Patient had surgery on 06/14/24. He is asking to speak to a nurse about his restrictions and what he can and cannot do # [phone] Jocelyn Cantrell, RN 06/19/2024 1:48 PM Signed Returned call. [...] Fully Assessed Reason for Visit: Patient Question [1477] Prescriptions as of 06/19/2024 - acetaminophen (TYLENOL) [...] Status:Closed by JOCELYN CANTRELL on 06/19/24 Normal [facility] Basic metabolic 2000 panelon 06-16-2024 Anion gap [Moles/Vol] 12 mmol/L Normal 8-15 [facility] Comment on above: Order Comment: Speci men Type: BLOOD SPECIMENOrdering Facility: [facility] Address: [address] [place] [address] Performed By: #### 2 4321-2 ####[facility]ORATORYCLIA [id number] [place] [id number] [place] Calcium [Mass/Vol] 8.9 mg/dL Normal 8.5-10.2 [facility] Comment on above: Order Comment: Speci men Type: BLOOD SPECIMENOrdering Facility: [facility] Address: [address] [place] [address] Performed By: #### 2 4321-2 ####[facility]ORATORYCLIA [id number] [place] [id number] [place] Chloride [Moles/Vol] 103 mmol/L Normal 98-107 [facility] Comment on above: Order Comment: Speci men Type: BLOOD SPECIMENOrdering Facility: [facility] Address: [address] [place] [address] Performed By: #### 2 4321-2 ####[facility]ORATORYCLIA [id number] [place] [id number] [place] CO2 [Moles/Vol] 22 mmol/L Normal 22-30 [facility] Comment on above: Order Comment: Speci men Type: BLOOD SPECIMENOrdering Facility: [facility] Address: [address] [place] [address] Performed By: #### 2 4321-2 ####[facility]ORATORYCLIA [id number] [place] [id number] [place] Creatinine [Mass/Vol] 0.90 mg/dL Normal 0.73-1.22 [facility] Comment on above: Order Comment: Speci men Type: BLOOD SPECIMENOrdering Facility: [facility] Address: [address] [place] [address] Performed By: #### 2 4321-2 ####[facility]ATORYCLIA [id number] [place] [id number] [place] Creatinine and Glomerular filtration rate.predicted panel (S/P/Bld) 102 mL/min/1.73m??? Normal >=60 [facility] Comment on above: Order Comment: Ara powers Type: BLOOD SPECIMENOrdering Facility: [facility] Address: [address] [place] [address] Result Comment: Dee mated Glomerular Filtration Rate [...] actual GFR. Performed By: #### 2 4321-2 ####[facility]ATORYCLIA [id number] [place] [id number] [place] Glucose [Mass/Vol] 162 mg/dL High 74-99 [facility] Comment on above: Order Comment: Ara powers Type: BLOOD SPECIMENOrdering Facility: [facility] Address: [address] [place] [address] Result Comment: The [place] [employer] (ADA) provides guidance for cutoff [...] Standards of Medical Care in Diabetes 2016, [place] [employer]. Diabetes Care. 2016.39(Suppl 1). Performed By: #### 2 4321-2 ####[facility]ATORYCLIA [id number] [place] [id number] [place] Potassium [Moles/Vol] 4.4 mmol/L Normal 3.7-5.1 [facility] Comment on above: Order Comment: Speci men Type: BLOOD SPECIMENOrdering Facility: [facility] Address: [address] [place] [address] Performed By: #### 2 4321-2 ####[facility]ORATORYCLIA [id number] [place] [id number] [place] Sodium [Moles/Vol] 137 mmol/L Normal 136-144 [facility] Comment on above: Order Comment: Speci men Type: BLOOD SPECIMENOrdering Facility: [facility] Address: [address] [place] [address] Performed By: #### 2 4321-2 ####[facility] LABORATORYCLIA [id number] [place] [address] [place] Urea nitrogen [Mass/Vol] 10 mg/dL Normal 9-24 [facility] Comment on above: Order Comment: Speci men Type: BLOOD SPECIMENOrdering Facility: [facility] Address: [address] [place] [address] Performed By: #### 2 4321-2 ####[facility] LABORATORYCLIA [id number] [place] [id number] [place] CBC W Auto Differential pane l (Bld)on 06-16-2024 Basophils (Bld) [#/Vol] 0.04 10*3/uL Normal <0.11 [facility] Comment on above: Order Comment: Speci men Type: BLOOD SPECIMENOrdering Facility: [facility] Address: [address] [place] [address] Performed By: #### 5 7021-8 ####[facility] LABORATORYCLIA [id number] [address] [place] Basophils/100 WBC (Bld) 0.6 % Normal [facility] Comment on above: Order Comment: Speci men Type: BLOOD SPECIMENOrdering Facility: [facility] Address: [address] [place] [address] Performed By: #### 5 7021-8 ####[facility] LABORATORYCLIA [id number] [place] [address] [place] Differential cell count method Nom (Bld) Auto Normal [facility] Comment on above: Order Comment: Speci men Type: BLOOD SPECIMENOrdering Facility: [facility] Address: [address] [place] [address] Performed By: #### 5 7021-8 ####[facility] LABORATORYCLIA [id number] [place] [address] [place] Eosinophils (Bld) [#/Vol] 0.16 10*3/uL Normal <0.46 [facility] Comment on above: Order Comment: Speci men Type: BLOOD SPECIMENOrdering Facility: [facility] Address: [address] [place] [address] Performed By: #### 5 7021-8 ####[facility] LABORATORYCLIA [id number] [address] [place] Eosinophils/100 WBC (Bld) 2.4 % Normal [facility] Comment on above: Order Comment: Speci men Type: BLOOD SPECIMENOrdering Facility: [facility] Address: [address] [place] [address] Performed By: #### 5 7021-8 ####[facility] LABORATORYCLIA [id number] [address] [place] Erythrocyte distribution width (RBC) [Ratio] 15.6 % High 11.5-15.0 [facility] Comment on above: Order Comment: Speci men Type: BLOOD SPECIMENOrdering Facility: [facility] Address: [address] [place] [address] Performed By: #### 5 7021-8 ####[facility]ORATORYCLIA [id number] [address] [place] Hematocrit (Bld) [Volume fraction] 44.0 % Normal 39.0-51.0 [facility] Comment on above: Order Comment: Speci men Type: BLOOD SPECIMENOrdering Facility: [facility] Address: [address] [place] [address] Performed By: #### 5 7021-8 ####[facility]ORATORYCLIA [id number] [place] [id number] [place] Hemoglobin (Bld) [Mass/Vol] 13.8 g/dL Normal 13.0-17.0 [facility] Comment on above: Order Comment: Speci men Type: BLOOD SPECIMENOrdering Facility: [facility] Address: [address] [place] [address] Performed By: #### 5 7021-8 ####[facility] LABORATORYCLIA [id number] [place] [address] [place] Immature granulocytes (Bld) [#/Vol] 0.03 10*3/uL Normal <0.10 [facility] Comment on above: Order Comment: Speci men Type: BLOOD SPECIMENOrdering Facility: [facility] Address: [address] [place] [address] Performed By: #### 5 7021-8 ####[facility] LABORATORYCLIA [id number] [place] [address] [place] Immature granulocytes/100 WBC (Bld) 0.5 % Normal [facility] Comment on above: Order Comment: Speci men Type: BLOOD SPECIMENOrdering Facility: [facility] Address: [address] [place] [address] Performed By: #### 5 7021-8 ####[facility]ORATORYCLIA [id number] [place] [address] [place] Lymphocytes (Bld) [#/Vol] 1.23 10*3/uL Normal 1.00-4.00 [facility] Comment on above: Order Comment: Speci men Type: BLOOD SPECIMENOrdering Facility: [facility] Address: [address] [place] [address] Performed By: #### 5 7021-8 ####[facility] LABORATORYCLIA [id number] [place] [address] [place] Lymphocytes/100 WBC (Bld) 18.8 % Normal [facility] Comment on above: Order Comment: Speci men Type: BLOOD SPECIMENOrdering Facility: [facility] Address: [address] [place] [address] Performed By: #### 5 7021-8 ####[facility] LABORATORYCLIA [id number] [place] [id number] [place] MCH (RBC) [Entitic mass] 29.9 pg Normal 26.0-34.0 [facility] Comment on above: Order Comment: Speci men Type: BLOOD SPECIMENOrdering Facility: [facility] Address: [address] [place] [address] Performed By: #### 5 7021-8 ####[facility] LABORATORYCLIA [id number] [place] [address] [place] MCHC (RBC) [Mass/Vol] 31.4 g/dL Normal 30.5-36.0 [facility] Comment on above: Order Comment: Speci men Type: BLOOD SPECIMENOrdering Facility: [facility] Address: [address] [place] [address] Performed By: #### 5 7021-8 ####[facility] LABORATORYCLIA [id number] [place] [address] [place] MCV (RBC) [Entitic vol] 95.4 fL Normal 80.0-100.0 [facility] Comment on above: Order Comment: Speci men Type: BLOOD SPECIMENOrdering Facility: [facility] Address: [address] [place] [address] Performed By: #### 5 7021-8 ####[facility] LABORATORYCLIA [id number] [place] [address] [place] Monocytes (Bld) [#/Vol] 0.76 10*3/uL Normal <0.87 [facility] Comment on above: Order Comment: Speci men Type: BLOOD SPECIMENOrdering Facility: [facility] Address: [address] [place] [address] Performed By: #### 5 7021-8 ####[facility] LABORATORYCLIA [id number] [address] [place] Monocytes/100 WBC (Bld) 11.6 % Normal [facility] Comment on above: Order Comment: Speci men Type: BLOOD SPECIMENOrdering Facility: [facility] Address: [address] [place] [address] Performed By: #### 5 7021-8 ####[facility] LABORATORYCLIA [id number] [place] [id number] [place] Neutrophils (Bld) [#/Vol] 4.32 10*3/uL Normal 1.45-7.50 [facility] Comment on above: Order Comment: Speci men Type: BLOOD SPECIMENOrdering Facility: [facility] Address: [address] [place] [address] Performed By: #### 5 7021-8 ####[facility] LABORATORYCLIA [id number] [place] [id number] [place] Neutrophils/100 WBC (Bld) 66.1 % Normal [facility] Comment on above: Order Comment: Speci men Type: BLOOD SPECIMENOrdering Facility: [facility] Address: [address] [place] [address] Performed By: #### 5 7021-8 ####[facility] LABORATORYCLIA [id number] [place] [address] [place] Nucleated RBC (Bld) [#/Vol] 10*3/uL Normal <0.01 [facility] Comment on above: Order Comment: Speci men Type: BLOOD SPECIMENOrdering Facility: [facility] Address: [address] [place] [address] Performed By: #### 5 7021-8 ####[facility]ORATORYCLIA [id number] [place] [id number] [place] Nucleated RBC/100 WBC (Bld) [Ratio] 0.0 /100 WBC Normal [facility] Comment on above: Order Comment: Speci men Type: BLOOD SPECIMENOrdering Facility: [facility] Address: [address] [place] [address] Performed By: #### 5 7021-8 ####[facility] LABORATORYCLIA [id number] [place] [id number] [place] Platelet mean volume (Bld) [Entitic vol] 11.2 fL Normal 9.0-12.7 [facility] Comment on above: Order Comment: Speci men Type: BLOOD SPECIMENOrdering Facility: [facility] Address: [address] [place] [address] Performed By: #### 5 7021-8 ####[facility] LABORATORYCLIA [id number] [place] [id number] [place] Platelets (Bld) [#/Vol] 191 10*3/uL Normal 150-400 [facility] Comment on above: Order Comment: Speci men Type: BLOOD SPECIMENOrdering Facility: [facility] Address: [address] [place] [address] Performed By: #### 5 7021-8 ####[facility] LABORATORYCLIA [id number] [place] [id number] [place] RBC (Bld) [#/Vol] 4.61 10*6/uL Normal 4.20-6.00 [facility] Comment on above: Order Comment: Speci men Type: BLOOD SPECIMENOrdering Facility: [facility] Address: [address] [place] [address] Performed By: #### 5 7021-8 ####[facility]ATORYCLIA [id number] [place] [id number] [facility] [place] WBC (Bld) [#/Vol] 6.54 10*3/uL Normal 3.70-11.00 [facility] Comment on above: Order Comment: Speci men Type: BLOOD SPECIMENOrdering Facility: [facility] Address: [address] [place] [address] Performed By: #### 5 7021-8 ####[facility] LABORATORYCLIA [id number] [place] [id number] [facility] [place] CNDSon 06-16-2024 CNDS HNO ID: [id number] Author: DONIS CARIAS MD Service: Colorectal Author [...] which included preparing to see the patient, [id number] patient care, completing clinical documentation, obtaining and/or reviewing separately obtained history, performing a medically appropriate examination, and care coordination (not separately reported). SIGNATURE: 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 APRN.GALLERY DIRECTOR DATE: June 16, 2024 (more content not included)... Normal [facility] Basic metabolic 2000 panelon 06-15-2024 Anion gap [Moles/Vol] 13 mmol/L Normal 8-15 [facility] Comment on above: Order Comment: Speci men Type: BLOOD SPECIMENOrdering Facility: [facility] Address: [address] [place] [address] Performed By: #### 2 4321-2 ####[facility]ORATORYCLIA [id number] [place] [address] [place] Calcium [Mass/Vol] 8.9 mg/dL Normal 8.5-10.2 [facility] Comment on above: Order Comment: Speci men Type: BLOOD SPECIMENOrdering Facility: [facility] Address: [address] [place] [address] Performed By: #### 2 4321-2 ####[facility]ORATORYCLIA [id number] [place] [id number] [place] Chloride [Moles/Vol] 100 mmol/L Normal 98-107 [facility] Comment on above: Order Comment: Speci men Type: BLOOD SPECIMENOrdering Facility: [facility] Address: [address] [place] [address] Performed By: #### 2 4321-2 ####[facility]ATORYCLIA [id number] [place] [id number] [place] CO2 [Moles/Vol] 21 mmol/L Low 22-30 [facility] Comment on above: Order Comment: Speci men Type: BLOOD SPECIMENOrdering Facility: [facility] Address: [address] [place] [address] Performed By: #### 2 4321-2 ####[facility]ATORYCLIA [id number] [place] [id number] [place] Creatinine [Mass/Vol] 1.25 mg/dL High 0.73-1.22 [facility] Comment on above: Order Comment: Ara powers Type: BLOOD SPECIMENOrdering Facility: [facility] Address: [address] [place] [address] Performed By: #### 2 4321-2 ####[facility]ORATORYCLIA [id number] [place] [address] [place] Creatinine and Glomerular filtration rate.predicted panel (S/P/Bld) 69 mL/min/1.73m??? Normal >=60 [facility] Comment on above: Order Comment: Ara powers Type: BLOOD SPECIMENOrdering Facility: [facility] Address: [address] [place] [address] Result Comment: Dee mated Glomerular Filtration Rate [...] actual GFR. Performed By: #### 2 4321-2 ####[facility]ORATORYCLIA [id number] [place] [id number] [place] Glucose [Mass/Vol] 105 mg/dL High 74-99 [facility] Comment on above: Order Comment: Ara powers Type: BLOOD SPECIMENOrdering Facility: [facility] Address: [address] [place] [address] Result Comment: The [place] [employer] (ADA) provides guidance for cutoff [...] Standards of Medical Care in Diabetes 2016, [place] [employer]. Diabetes Care. 2016.39(Suppl 1). Performed By: #### 2 4321-2 ####[facility] LABORATORYCLIA [id number] [place] [id number] [place] Potassium [Moles/Vol] 4.8 mmol/L Normal 3.7-5.1 [facility] Comment on above: Order Comment: Speci men Type: BLOOD SPECIMENOrdering Facility: [facility] Address: [address] [place] [address] Performed By: #### 2 4321-2 ####[facility]ORATORYCLIA [id number] [place] [id number] [place] Sodium [Moles/Vol] 134 mmol/L Low 136-144 [facility] Comment on above: Order Comment: Speci men Type: BLOOD SPECIMENOrdering Facility: [facility] Address: [address] [place] [address] Performed By: #### 2 4321-2 ####[facility]ORATORYCLIA [id number] [place] [id number] [facility] [place] Urea nitrogen [Mass/Vol] 19 mg/dL Normal 9-24 [facility] Comment on above: Order Comment: Speci men Type: BLOOD SPECIMENOrdering Facility: [facility] Address: [address] [place] [address] Performed By: #### 2 4321-2 ####[facility]ORATORYCLIA [id number] [place] [id number] [place] CBC W Auto Differential pane l (Bld)on 06-15-2024 Basophils (Bld) [#/Vol] 0.03 10*3/uL Normal <0.11 [facility] Comment on above: Order Comment: Speci men Type: BLOOD SPECIMENOrdering Facility: [facility] Address: [address] [place] [address] Performed By: #### 5 7021-8 ####[facility]ORATORYCLIA [id number] [address] [place] Basophils/100 WBC (Bld) 0.3 % Normal [facility] Comment on above: Order Comment: Speci men Type: BLOOD SPECIMENOrdering Facility: [facility] Address: [address] [place] [address] Performed By: #### 5 7021-8 ####[facility] LABORATORYCLIA [id number] [place] [address] [place] Differential cell count method Nom (Bld) Auto Normal [facility] Comment on above: Order Comment: Speci men Type: BLOOD SPECIMENOrdering Facility: [facility] Address: [address] [place] [address] Performed By: #### 5 7021-8 ####[facility] LABORATORYCLIA [id number] [place] [address] [place] Eosinophils (Bld) [#/Vol] 10*3/uL Normal <0.46 [facility] Comment on above: Order Comment: Speci men Type: BLOOD SPECIMENOrdering Facility: [facility] Address: [address] [place] [address] Performed By: #### 5 7021-8 ####[facility] LABORATORYCLIA [id number] [address] STATES [facility] Eosinophils/100 WBC (Bld) 0.2 % Normal [facility] Comment on above: Order Comment: Speci men Type: BLOOD SPECIMENOrdering Facility: [facility] Address: [address] [place] [address] Performed By: #### 5 7021-8 ####[facility] LABORATORYCLIA [id number] [place] [address] [place] Erythrocyte distribution width (RBC) [Ratio] 15.5 % High 11.5-15.0 [facility] Comment on above: Order Comment: Speci men Type: BLOOD SPECIMENOrdering Facility: [facility] Address: [address] [place] [address] Performed By: #### 5 7021-8 ####[facility] LABORATORYCLIA [id number] [place] [address] [place] Hematocrit (Bld) [Volume fraction] 41.5 % Normal 39.0-51.0 [facility] Comment on above: Order Comment: Speci men Type: BLOOD SPECIMENOrdering Facility: [facility] Address: [address] [place] [address] Performed By: #### 5 7021-8 ####[facility] LABORATORYCLIA [id number] [place] [id number] [place] Hemoglobin (Bld) [Mass/Vol] 13.8 g/dL Normal 13.0-17.0 [facility] Comment on above: Order Comment: Speci men Type: BLOOD SPECIMENOrdering Facility: [facility] Address: [address] [place] [address] Performed By: #### 5 7021-8 ####[facility] LABORATORYCLIA [id number] [place] [address] [place] Immature granulocytes (Bld) [#/Vol] 0.06 10*3/uL Normal <0.10 [facility] Comment on above: Order Comment: Speci men Type: BLOOD SPECIMENOrdering Facility: [facility] Address: [address] [place] [address] Performed By: #### 5 7021-8 ####[facility] LABORATORYCLIA [id number] [place] [address] [place] Immature granulocytes/100 WBC (Bld) 0.6 % Normal [facility] Comment on above: Order Comment: Speci men Type: BLOOD SPECIMENOrdering Facility: [facility] Address: [address] [place] [address] Performed By: #### 5 7021-8 ####[facility] LABORATORYCLIA [id number] [place] [id number] [place] Lymphocytes (Bld) [#/Vol] 1.01 10*3/uL Normal 1.00-4.00 [facility] Comment on above: Order Comment: Speci men Type: BLOOD SPECIMENOrdering Facility: [facility] Address: [address] [place] [address] Performed By: #### 5 7021-8 ####[facility] LABORATORYCLIA [id number] [place] [address] [place] Lymphocytes/100 WBC (Bld) 10.3 % Normal [facility] Comment on above: Order Comment: Speci men Type: BLOOD SPECIMENOrdering Facility: [facility] Address: [address] [place] [address] Performed By: #### 5 7021-8 ####[facility] LABORATORYCLIA [id number] [place] [address] [place] MCH (RBC) [Entitic mass] 30.6 pg Normal 26.0-34.0 [facility] Comment on above: Order Comment: Speci men Type: BLOOD SPECIMENOrdering Facility: [facility] Address: [address] [place] [address] Performed By: #### 5 7021-8 ####[facility] LABORATORYCLIA [id number] [place] [address] [place] MCHC (RBC) [Mass/Vol] 33.3 g/dL Normal 30.5-36.0 [facility] Comment on above: Order Comment: Speci men Type: BLOOD SPECIMENOrdering Facility: [facility] Address: [address] [place] [address] Performed By: #### 5 7021-8 ####[facility] LABORATORYCLIA [id number] [address] [place] MCV (RBC) [Entitic vol] 92.0 fL Normal 80.0-100.0 [facility] Comment on above: Order Comment: Speci men Type: BLOOD SPECIMENOrdering Facility: [facility] Address: [address] [place] [address] Performed By: #### 5 7021-8 ####[facility] LABORATORYCLIA [id number] [place] [address] [place] Monocytes (Bld) [#/Vol] 1.07 10*3/uL High <0.87 [facility] Comment on above: Order Comment: Speci men Type: BLOOD SPECIMENOrdering Facility: [facility] Address: [address] [place] [address] Performed By: #### 5 7021-8 ####[facility] LABORATORYCLIA [id number] [place] [id number] [place] Monocytes/100 WBC (Bld) 10.9 % Normal [facility] Comment on above: Order Comment: Speci men Type: BLOOD SPECIMENOrdering Facility: [facility] Address: [address] [place] [address] Performed By: #### 5 7021-8 ####[facility] LABORATORYCLIA [id number] [place] [id number] [place] Neutrophils (Bld) [#/Vol] 7.59 10*3/uL High 1.45-7.50 [facility] Comment on above: Order Comment: Speci men Type: BLOOD SPECIMENOrdering Facility: [facility] Address: [address] [place] [address] Performed By: #### 5 7021-8 ####[facility] LABORATORYCLIA [id number] [place] [address] [place] Neutrophils/100 WBC (Bld) 77.7 % Normal [facility] Comment on above: Order Comment: Speci men Type: BLOOD SPECIMENOrdering Facility: [facility] Address: [address] [place] [address] Performed By: #### 5 7021-8 ####[facility] LABORATORYCLIA [id number] [place] [id number] [place] Nucleated RBC (Bld) [#/Vol] 10*3/uL Normal <0.01 [facility] Comment on above: Order Comment: Speci men Type: BLOOD SPECIMENOrdering Facility: [facility] Address: [address] [place] [address] Performed By: #### 5 7021-8 ####[facility] LABORATORYCLIA [id number] [place] [id number] [place] Nucleated RBC/100 WBC (Bld) [Ratio] 0.0 /100 WBC Normal [facility] Comment on above: Order Comment: Speci men Type: BLOOD SPECIMENOrdering Facility: [facility] Address: [address] [place] [address] Performed By: #### 5 7021-8 ####[facility] LABORATORYCLIA [id number] [place] [id number] [place] Platelet mean volume (Bld) [Entitic vol] 10.8 fL Normal 9.0-12.7 [facility] Comment on above: Order Comment: Speci men Type: BLOOD SPECIMENOrdering Facility: [facility] Address: [address] [place] [address] Performed By: #### 5 7021-8 ####[facility] LABORATORYCLIA [id number] [place] [id number] [place] Platelets (Bld) [#/Vol] 176 10*3/uL Normal 150-400 [facility] Comment on above: Order Comment: Speci men Type: BLOOD SPECIMENOrdering Facility: [facility] Address: [address] [place] [address] Performed By: #### 5 7021-8 ####[facility] LABORATORYCLIA [id number] [place] [id number] [place] RBC (Bld) [#/Vol] 4.51 10*6/uL Normal 4.20-6.00 [facility] Comment on above: Order Comment: Speci men Type: BLOOD SPECIMENOrdering Facility: [facility] Address: [address] [place] [address] Performed By: #### 5 7021-8 ####[facility] LABORATORYCLIA [id number] [place] [id number] [place] WBC (Bld) [#/Vol] 9.78 10*3/uL Normal 3.70-11.00 [facility] Comment on above: Order Comment: Speci men Type: BLOOD SPECIMENOrdering Facility: [facility] Address: [address] [place] [address] Performed By: #### 5 7021-8 ####[facility] LABORATORYCLIA [id number] [place] [id number] [facility] NUTRITIONon 06-15-2024 NUTRITION HNO ID: [id number] Author: SINDHU ARZATE RD Service: Nutrition Therapy Author Type: [...] Provided to Patient: None Referral (Recommendation): N/A Sindhu Arzate RD June 15, 2024 9:44 AM [facility] ANES POSTPROC EVALon 025 ANES POSTPROC EVAL HNO ID: [id number] Author: ILA MORTENSEN MD Service: Critical Care Author Type: Anesthesiologist Type: Anesthesia Postprocedure Evaluation Filed: 06/14/2024 16:00 Note Text: POST ANESTHESIA EVALUATION NOTE : 1970 Procedure Summary Date: 06/14/24 Room / Location: OR11 / FV OR Anesthesia Start: 0848 Anesthesia Stop: 1138 [...] June 14, 2024 TIME: 3:59 PM CSN: [id number] [facility] ANES PRE-OPon 06-14-2024 ANES PRE-OP HNO ID: [id number] Author: ILA MORTENSEN MD Service: Critical Care [...] June 14, 2024 TIME: 9:23 AM CSN: [id number] [facility] MISMATCH REPAIR PROTEINS BY IHCon 06-14-2024 AP BIOMARKER DISCLAIMER [facility] Comment on above: Order Comment: Speci men Type: TISSUE SPECIMENOrdering Facility: [facility] Address: [address] [place] [address] Result Comment: Martin jo Developed Test (LDT) Disclaimer: Performance characteristics of immunohistochemical, immunofluorescent and chromogenic in-situ hybridization tests have been determined by the performing laboratory within [facility]???s [facility] Medicine Department ([facility], [facility], [facility], [facility], [facility], [facility], or [facility]) in a manner consistent with CLIA requirements. One or more of these tests have not been cleared or approved by the FDA. [facility] is regulated under CLIA as qualified to perform high-complexity testing. These tests are used for clinical purposes. They should not be regarded as investigational or for research. Positive and negative controls stain appropriately. Performed By: #### L [id number] ####[facility] LABCLIA [id number] [place] [address] [place] AP BLOCK ID A6 [facility] Comment on above: Order Comment: Speci men Type: TISSUE SPECIMENOrdering Facility: [facility] Address: [address] [place] [address] Performed By: #### L [id number] ####[facility] LABCLIA [id number] [place] [address] [place] BIOMARKER INTERPRETATION COMMENT AND REFERENCE RANGE [facility] Comment on above: Order Comment: Speci men Type: TISSUE SPECIMENOrdering Facility: [facility] Address: [address] [place] [address] Result [address]: [address] expression of MMR [...] patients with metastatic carcinoma, Alana et al. ([facility] 2015;372:9969-41) reported that the clinical benefit of pembrolizumab, [...] questions about this result, please call the [facility] for [facility] at [phone]. Performed By: #### L [id number] ####[facility] LABIA [id number] [address] [place] BIOMARKER METHOD Immunohistochemistry was performed on formalin fixed paraffin-embedded tissue using the following clones: MLH1 (clone M1 mouse monoclonal); MSH2 ([id number] mouse monoclonal); and MSH6 (SP93 rabbit monoclonal); followed by ultrasensitive bright field detection (Optiview with amplification) from [[employer], [place]]. PMS2 (EP51 Rabbit monoclonal, [employer]); followed by ultrasensitive bright field detection ( Rosales Refine Polymer DAB Detection) from [[employer], [place], [place]]. [facility] Comment on above: Order Comment: Speci men Type: TISSUE SPECIMENOrdering Facility: [facility] Address: [address] [place] [id number] Performed By: #### L [id number] ####[facility] LABCLIA [id number] [place] [address] [place] [facility] CASE NUMBER MMR [id number] [facility] Comment on above: Order Comment: Speci men Type: TISSUE SPECIMENOrdering Facility: [facility] Address: [address] [place] [address] Performed By: #### L [id number] ####[facility] LABCLIA [id number] [place] [address] [place] FIXATIVE Formalin, 10% Neutra l Buffered [facility] Comment on above: Order Comment: Speci men Type: TISSUE SPECIMENOrdering Facility: [facility] Address: [address] [place] [address] Performed By: #### L [id number] ####[facility] LABCLIA [id number] [address] [place] MLH1 IMMUNOHISTOCHEMICAL RESULTS Normal/Intact Nuclear Expression [facility] Comment on above: Order Comment: Speci men Type: TISSUE SPECIMENOrdering Facility: [facility] Address: [address] [place] [address] Performed By: #### L [id number] ####[facility] LABCLIA [id number] [address] [place] MLH1 PROMOTER METHYLATION ASSAY No Normal [facility] Comment on above: Order Comment: Speci men Type: TISSUE SPECIMENOrdering Facility: [facility] Address: [address] [place] [address] Performed By: #### L [id number] ####[facility] LABCLIA [id number] [place] [address] [place] MMR INTERPRETATION Proficient ([place]) Normal [facility] Comment on above: Order Comment: Speci men Type: TISSUE SPECIMENOrdering Facility: [facility] Address: [address] [place] [address] Performed By: #### L [id number] ####[facility] LABCLIA [id number] [place] [address] [place] MSH2 IMMUNOHISTOCHEMICAL RESULTS Normal/Intact Nuclear Expression Normal [facility] Comment on above: Order Comment: Speci men Type: TISSUE SPECIMENOrdering Facility: [facility] Address: [address] [place] [address] Performed By: #### L [id number] ####[facility] LABCLIA [id number] [place] [address] [place] MSH6 IMMUNOHISTOCHEMICAL RESULTS Normal/Intact Nuclear Expression Normal [facility] Comment on above: Order Comment: Speci men Type: TISSUE SPECIMENOrdering Facility: [facility] Address: [address] [place] [address] Performed By: #### L [id number] ####[facility] LABCLIA [id number] [address] [place] PMS2 IMMUNOHISTOCHEMICAL RESULTS Normal/Intact Nuclear Expression Normal [facility] Comment on above: Order Comment: Speci men Type: TISSUE SPECIMENOrdering Facility: [facility] Address: [address] [place] [address] Performed By: #### L [id number] ####[facility] LABCLIA [id number] [place] [address] [place] TUMOR TYPE MMR Primary Colorectal Adenocarcinoma Normal [facility] Comment on above: Order Comment: Speci men Type: TISSUE SPECIMENOrdering Facility: [facility] Address: [address] [place] [address] Performed By: #### L [id number] ####[facility] LABCLIA [id number] [place] [address] [place] OPERATIVE NOon 06-14-2024 OPERATIVE NO HNO ID: [id number] Author: DONIS CARIAS MD Service: Colorectal Author Type: Physician Type: Operative Report Filed: 06/21/2024 15:52 Note Text: COLON AND RECTAL SURGERY OPERATIVE REPORT PATIENT NAME: Piper Rodríguez ADMISSION DATE: 06/14/2024 LOG ID: [id number] SURGERY/PROCEDURE DATE: 06/14/2024 INCISION/PROCEDURE START TIME: 9:17 AM INCISION CLOSE/PROCEDURE END TIME: 11:24 AM AGE: [age] year old SEX: male SURGEON(S)/PROCEDURALIST(S) AND BOND TRADER(S): Surgeons and Role: * Donis Carias MD [...] inserted into the bowel to create a [id number] functional end-to-end anastomosis. The bowel was lined [...] was inspected (more content not included)... Normal [facility] SURGICAL PATHOLOGYon 025 BLOCK FOR ADDITIONAL BIOMARKERS/MOLECULAR STUDIES A6 [facility] Comment on above: Order Comment: Speci men Type: TISSUE SPECIMENOrdering Facility: [facility] Address: [address] [place] [address] Performed By: #### S ####[facility] LABCLIA [id number] [address] LABORATORYCLIA [id number] [address] OF [facility] CASE REPORT [facility] Comment on above: Order Comment: Speci men Type: TISSUE SPECIMENOrdering Facility: [facility] Address: [address] [place] [address] Result Comment: Surg [facility] Pathology Report Case: [id number] Authorizing Provider: Donis Carias MD Collected: 06/14/2024 10:43 AM Ordering Location: [facility] Received: 06/14/2024 11:18 AM Operating Room Pathologist: Samir De La Cruz MD Specimen: Colon, Resection, right colon Performed By: #### S ####[facility] LABCLIA [id number] [address] LABORATORYCLIA [id number] [address] OF [facility] CLINICAL HISTORY [facility] Comment on above: Order Comment: Speci men Type: TISSUE SPECIMENOrdering Facility: [facility] Address: [address] [place] [address] Result Comment: Pre- op diagnosis: Malignant neoplasm of ascending colon (HCC) [C18.2] Performed By: #### S ####[facility] LABCLIA [id number] [address] LABORATORYCLIA [id number] [address] FINAL DIAGNOSIS [facility] Comment on above: Order Comment: Speci men Type: TISSUE SPECIMENOrdering Facility: [facility] Address: [address] [place], [place] [address] Result Comment: Term inal ileum, right colon, appendix, and omentum, resection: - Invasive moderately differentiated colonic adenocarcinoma. - Three of 18 lymph nodes involved by metastatic adenocarcinoma (3/18). - Appendix with fibrous obliteration of the tip. - Omentum with no evidence of tumor. - Terminal ileum with no evidence of tumor. - See synoptic report. Performed By: #### S ####[facility] LABCLIA [id number] [address] LABORATORYCLIA [id number] [address] FINAL PERFORMING LAB Normal [facility] Comment on above: Order Comment: Speci men Type: TISSUE SPECIMENOrdering Facility: [facility] Address: [address] [place] [address] Result Comment: Diag nostic interpretation performed at: [facility], [address] [place], [place] [address] CLIA# [id number] Health Plan Manager: Kenneth Rajput MD Performed By: #### S ####[facility] LABCLIA [id number] [address] LABORATORYCLIA [id number] [address] OF [facility] Result Comment: Diag nostic interpretation performed at: [facility], [address] [place], [place] [address] CLIA# [id number] Health Plan Manager: Kenneth Rajput MD Electronically signed out by: Sophia Amaya MD Performed By: #### L [id number] ####[facility] LABCLIA [id number] [place] [id number] [place] GROSS DESCRIPTION Normal [facility] Comment on above: Order Comment: Speci men Type: TISSUE SPECIMENOrdering Facility: [facility] Address: [address] [place], [place] [address], [place] [address] Result Comment: Jhony suarez, Resection Received in [...] reveal any areas of induration or nodularity. Private Inquiry Agent sections are submitted as follows: A1 perpendicular [...] 2024 1:43 PM Gross examination performed at [facility], [address] [place] [address] Performed By: #### S ####[facility] LABCLIA [id number] [address] OF [facility] LABORATORYCLIA [id number] [address] OF [facility] SYNOPTIC REPORT Normal [facility] Comment on above: Order Comment: Speci men Type: TISSUE SPECIMENOrdering Facility: [facility] Address: [address] [place] [address] Result Comment: COLO N AND RECTUM: Resection [...] Findings: None identified Performed By: #### S ####[facility] LABCLIA [id number] [place] [id number] [facility] LABORATORYCLIA [id number] [address] ECG COMPLETEon 06-08-2024 ECG COMPLETE Ventricular Rate : 6 2 BPM Atrial Rate : 62 BPM P-R Interval : 170 ms QRS Duration : 94 ms Q-T Interval : 402 ms QTC Calculation(Bazett) : 408 ms Calculated P [place] : 50 degrees Calculated R [place] : 18 degrees Calculated T [place] : 44 degrees NORMAL SINUS RHYTHM NORMAL ECG Confirmed by ALEX METCALF MD ([id number]) on 06/09/2024 6:31:40 AM NAME : PIPER RODRÍGUEZ PID : [id number] : 1970 Gender : Male Race : ORD : [id number] Procedure Date : Jun 08 2024 08:53:10 Edit Date : Jun 09 2024 06:31:44 Diagnosis: NORMAL SINUS RHYTHM NORMAL ECG Confirmed by ALEX METCALF MD ([id number]) on 06/09/2024 6:31:40 AM Test Reason : PRE OP Location : 545 : [facility] Overread By : ALEX METCALF MD Edited By : ALEX METCALF MD Referred By : DONIS CARIAS Acquired by : Andrea YATES [facility] HISTORY PHYSICALon HISTORY PHYSICAL HNO ID: [id number] Author: AUBREY BAER PA-C Service: ? Author Type: Physician Clinical Nurse Occupational Medicine Type: H&P Filed: 06/08/2024 09:20 Note Text: [...] 5 (+SHERIE, unable to tolerate CPAP ) [id number] Score: Age: <65 Sex: male CHF history: No Hypertension history: Yes Stroke/TIA/thromboembolism history: No Vascular disease history: No Diabetes history: No [id number] Score: 1 ARISCAT Score: Age: 51-80 Preoperative [...] fevers. Neuro: No history of TIA's, stroke, [employer]ODU[employer] OPER[employer] tumor, impaired sensorium, hemiplegia, paraplegia or quadraplegia. [...] Skin: Ne (more content not included)... Normal [facility] CNPNon 06-05-2024 CNPN Telephone (FVPRAD) ZOLTANPIPER MORENO Marychuy ([id number]) 1970 M Date Time Provider Department 06/05/24 DONIS CARIAS FVPRAD During your visit today, we recorded the following information about you: Donis Carias MD 06/05/2024 12:[address] CAP reviewed with patient- no mets and will proceed with surgery as scheduled. Advised lifestyle changes for fatty liver and to follow up with PCP Allergies As of Date: 06/05/2024 (No Known Allergies) Date Reviewed: 06/02/2024 Reviewed by: Abilio Tang, RN - Fully Assessed Prescriptions as of 06/05/2024 [...] Status:Closed by DONIS CARIAS on 06/05/24 Normal [facility] CBC W Auto Differential pane l (Bld)on 06-02-2024 Basophils (Bld) [#/Vol] 0.06 10*3/uL Normal <0.11 [facility] Comment on above: Order Comment: Speci men Type: BLOOD SPECIMENOrdering Facility: [facility] Address: [address] [place] [address] Performed By: #### 5 7021-8 ####[facility]ORATORYCLIA [id number] [place] [address] [place] Basophils/100 WBC (Bld) 1.0 % Normal [facility] Comment on above: Order Comment: Speci men Type: BLOOD SPECIMENOrdering Facility: [facility] Address: [address] [place] [address] Performed By: #### 5 7021-8 ####[facility] LABORATORYCLIA [id number] [place] [address] [place] Differential cell count method Nom (Bld) Auto Normal [facility] Comment on above: Order Comment: Speci men Type: BLOOD SPECIMENOrdering Facility: [facility] Address: [address] [place] [address] Performed By: #### 5 7021-8 ####[facility]ORATORYCLIA [id number] [place] [address] [place] Eosinophils (Bld) [#/Vol] 0.28 10*3/uL Normal <0.46 [facility] Comment on above: Order Comment: Speci men Type: BLOOD SPECIMENOrdering Facility: [facility] Address: [address] [place] [address] Performed By: #### 5 7021-8 ####[facility] LABORATORYCLIA [id number] [place] [address] [place] Eosinophils/100 WBC (Bld) 4.5 % Normal [facility] Comment on above: Order Comment: Speci men Type: BLOOD SPECIMENOrdering Facility: [facility] Address: [address] [place] [address] Performed By: #### 5 7021-8 ####[facility] LABORATORYCLIA [id number] [address] [place] Erythrocyte distribution width (RBC) [Ratio] 16.0 % High 11.5-15.0 [facility] Comment on above: Order Comment: Speci men Type: BLOOD SPECIMENOrdering Facility: [facility] Address: [address] [place] [address] Performed By: #### 5 7021-8 ####[facility] LABORATORYCLIA [id number] [address] [place] Hematocrit (Bld) [Volume fraction] 46.1 % Normal 39.0-51.0 [facility] Comment on above: Order Comment: Speci men Type: BLOOD SPECIMENOrdering Facility: [facility] Address: [address] [place] [address] Performed By: #### 5 7021-8 ####[facility] LABORATORYCLIA [id number] [place] [address] [place] Hemoglobin (Bld) [Mass/Vol] 15.1 g/dL Normal 13.0-17.0 [facility] Comment on above: Order Comment: Speci men Type: BLOOD SPECIMENOrdering Facility: [facility] Address: [address] [place] [address] Performed By: #### 5 7021-8 ####[facility] LABORATORYCLIA [id number] [place] [id number] [place] Immature granulocytes (Bld) [#/Vol] 0.03 10*3/uL Normal <0.10 [facility] Comment on above: Order Comment: Speci men Type: BLOOD SPECIMENOrdering Facility: [facility] Address: [address] [place] [address] Performed By: #### 5 7021-8 ####[facility] LABORATORYCLIA [id number] [place] [address] [place] Immature granulocytes/100 WBC (Bld) 0.5 % Normal [facility] Comment on above: Order Comment: Speci men Type: BLOOD SPECIMENOrdering Facility: [facility] Address: [address] [place] [address] Performed By: #### 5 7021-8 ####[facility] LABORATORYCLIA [id number] [place] [address] [place] Lymphocytes (Bld) [#/Vol] 1.18 10*3/uL Normal 1.00-4.00 [facility] Comment on above: Order Comment: Speci men Type: BLOOD SPECIMENOrdering Facility: [facility] Address: [address] [place] [address] Performed By: #### 5 7021-8 ####[facility] LABORATORYCLIA [id number] [address] [place] Lymphocytes/100 WBC (Bld) 18.8 % Normal [facility] Comment on above: Order Comment: Speci men Type: BLOOD SPECIMENOrdering Facility: [facility] Address: [address] [place] [address] Performed By: #### 5 7021-8 ####[facility] LABORATORYCLIA [id number] [place] [address] [place] MCH (RBC) [Entitic mass] 30.3 pg Normal 26.0-34.0 [facility] Comment on above: Order Comment: Speci men Type: BLOOD SPECIMENOrdering Facility: [facility] Address: [address] [place] [address] Performed By: #### 5 7021-8 ####[facility] LABORATORYCLIA [id number] [place] [address] [place] MCHC (RBC) [Mass/Vol] 32.8 g/dL Normal 30.5-36.0 [facility] Comment on above: Order Comment: Speci men Type: BLOOD SPECIMENOrdering Facility: [facility] Address: [address] [place] [address] Performed By: #### 5 7021-8 ####[facility] LABORATORYCLIA [id number] [place] [id number] [place] MCV (RBC) [Entitic vol] 92.4 fL Normal 80.0-100.0 [facility] Comment on above: Order Comment: Speci men Type: BLOOD SPECIMENOrdering Facility: [facility] Address: [address] [place] [address] Performed By: #### 5 7021-8 ####[facility] LABORATORYCLIA [id number] [place] [id number] [place] Monocytes (Bld) [#/Vol] 0.66 10*3/uL Normal <0.87 [facility] Comment on above: Order Comment: Speci men Type: BLOOD SPECIMENOrdering Facility: [facility] Address: [address] [place] [address] Performed By: #### 5 7021-8 ####[facility] LABORATORYCLIA [id number] [place] [address] [place] Monocytes/100 WBC (Bld) 10.5 % Normal [facility] Comment on above: Order Comment: Speci men Type: BLOOD SPECIMENOrdering Facility: [facility] Address: [address] [place] [address] Performed By: #### 5 7021-8 ####AM[facility] LABORATORYCLIA [id number] [place] [id number] [place] Neutrophils (Bld) [#/Vol] 4.06 10*3/uL Normal 1.45-7.50 [facility] Comment on above: Order Comment: Speci men Type: BLOOD SPECIMENOrdering Facility: [facility] Address: [address] [place] [address] Performed By: #### 5 7021-8 ####[facility] LABORATORYCLIA [id number] [place] [id number] [place] Neutrophils/100 WBC (Bld) 64.7 % Normal [facility] Comment on above: Order Comment: Speci men Type: BLOOD SPECIMENOrdering Facility: [facility] Address: [address] [place] [address] Performed By: #### 5 7021-8 ####[facility]ORATORYCLIA [id number] [place] [id number] [place] Nucleated RBC (Bld) [#/Vol] 10*3/uL Normal <0.01 [facility] Comment on above: Order Comment: Speci men Type: BLOOD SPECIMENOrdering Facility: [facility] Address: [address] [place] [address] Performed By: #### 5 7021-8 ####[facility] LABORATORYCLIA [id number] [place] [address] [place] Nucleated RBC/100 WBC (Bld) [Ratio] 0.0 /100 WBC Normal [facility] Comment on above: Order Comment: Speci men Type: BLOOD SPECIMENOrdering Facility: [facility] Address: [address] [place] [address] Performed By: #### 5 7021-8 ####[facility] LABORATORYCLIA [id number] [place] [address] [place] Platelet mean volume (Bld) [Entitic vol] 10.1 fL Normal 9.0-12.7 [facility] Comment on above: Order Comment: Speci men Type: BLOOD SPECIMENOrdering Facility: [facility] Address: [address] [place] [address] Performed By: #### 5 7021-8 ####[facility] LABORATORYCLIA [id number] [place] [id number] [place] Platelets (Bld) [#/Vol] 182 10*3/uL Normal 150-400 [facility] Comment on above: Order Comment: Speci men Type: BLOOD SPECIMENOrdering Facility: [facility] Address: [address] [place] [address] Performed By: #### 5 7021-8 ####[facility] LABORATORYCLIA [id number] [place] [id number] [place] RBC (Bld) [#/Vol] 4.99 10*6/uL Normal 4.20-6.00 [facility] Comment on above: Order Comment: Speci men Type: BLOOD SPECIMENOrdering Facility: [facility] Address: [address] [place] [address] Performed By: #### 5 7021-8 ####[facility] LABORATORYCLIA [id number] [place] [id number] [place] WBC (Bld) [#/Vol] 6.27 10*3/uL Normal 3.70-11.00 [facility] Comment on above: Order Comment: Speci men Type: BLOOD SPECIMENOrdering Facility: [facility] Address: [address] [place] [address] Performed By: #### 5 7021-8 ####[facility] LABORATORYCLIA [id number] [place] [id number] [place] CEA SerPl-mCncon 06-02-2024 Carcinoembryonic Ag [Mass/Vol] 3.5 ng/mL High <=2.9 [facility] Comment on above: Order Comment: Speci men Type: BLOOD SPECIMENOrdering Facility: [facility] Address: [address] [place] [address] Result Comment: Carc inoembryonic antigen test is used as an aid in monitoring response to treatment or recurrence in patients with established colorectal, breast, lung, prostatic, pancreatic, and ovarian carcinomas. Clinical correlation is required. The Carcinoembryonic antigen test was performed using the Ever[employer] Revcaster Unicel DXI paramagnetic particle chemiluminescent immunoassay method. Results obtained with different assay methods or kits cannot be used interchangeably. Performed By: #### 2 039-6 ####[facility] LABCLIA [id number] [place] [address] [place] CT ABD/PEL W [...] pelvis. 4. Fatty infiltration of the liver. Home Paraprofessional: [facility] Transcribe Date/Time: Jun 04 2024 8:16A Dictated by : OSKAR JOHNSON MD This examination was interpreted and the report reviewed and electronically signed by: OSKAR JOHNSON MD on Jun 04 2024 8:28AM EST [id number] Normal [facility] CT CHEST W IVCONon 5 CT CHEST [...] pelvis. 4. Fatty infiltration of the liver. Home Paraprofessional: [facility] Transcribe Date/Time: Jun 04 2024 8:16A Dictated by : OSKAR JOHNSON MD This examination was interpreted and the report reviewed and electronically signed by: OSKAR JOHNSON MD on Jun 04 2024 8:28AM EST [id number] Normal [facility] Comprehensive metabolic 2000 panelon 06-02-2024 Albumin [Mass/Vol] 4.1 g/dL Normal 3.9-4.9 [facility] Comment on above: Order Comment: Speci men Type: BLOOD SPECIMENOrdering Facility: [facility] Address: [address] [place] [address] Performed By: #### 2 4323-8 ####[facility] LABORATORYCLIA [id number] [place] [address] [place] ALP [Catalytic activity/Vol] 85 U/L Normal 38-113 [facility] Comment on above: Order Comment: Speci men Type: BLOOD SPECIMENOrdering Facility: [facility] Address: [address] [place], [place] [address] Performed By: #### 2 4323-8 ####[facility] LABORATORYCLIA [id number] [place] [id number] [place] ALT [Catalytic activity/Vol] 175 U/L High 10-54 [facility] Comment on above: Order Comment: Speci men Type: BLOOD SPECIMENOrdering Facility: [facility] Address: [address] [place] [address] Performed By: #### 2 4323-8 ####[facility] LABORATORYCLIA [id number] [place] [id number] [place] Anion gap [Moles/Vol] 13 mmol/L Normal 8-15 [facility] Comment on above: Order Comment: Speci men Type: BLOOD SPECIMENOrdering Facility: [facility] Address: [address] [place] [address] Performed By: #### 2 4323-8 ####[facility] LABORATORYCLIA [id number] [place] [address] [place] AST [Catalytic activity/Vol] 151 U/L High 14-40 [facility] Comment on above: Order Comment: Speci men Type: BLOOD SPECIMENOrdering Facility: [facility] Address: [address] [place] [address] Performed By: #### 2 4323-8 ####[facility] LABORATORYCLIA [id number] [place] [id number] [place] Bilirubin [Mass/Vol] 0.6 mg/dL Normal 0.2-1.3 [facility] Comment on above: Order Comment: Speci men Type: BLOOD SPECIMENOrdering Facility: [facility] Address: [address] [place] [address] Performed By: #### 2 4323-8 ####[facility] LABORATORYCLIA [id number] [place] [id number] [place] Calcium [Mass/Vol] 9.1 mg/dL Normal 8.5-10.2 [facility] Comment on above: Order Comment: Speci men Type: BLOOD SPECIMENOrdering Facility: [facility] Address: [address] [place] [address] Performed By: #### 2 4323-8 ####[facility] LABORATORYCLIA [id number] [place] [id number] [place] Chloride [Moles/Vol] 94 mmol/L Low 98-107 [facility] Comment on above: Order Comment: Speci men Type: BLOOD SPECIMENOrdering Facility: [facility] Address: [address] [place] [address] Performed By: #### 2 4323-8 ####[facility] LABORATORYCLIA [id number] [place] [id number] [place] CO2 [Moles/Vol] 24 mmol/L Normal 22-30 [facility] Comment on above: Order Comment: Speci men Type: BLOOD SPECIMENOrdering Facility: [facility] Address: [address] [place] [address] Performed By: #### 2 4323-8 ####[facility] LABORATORYCLIA [id number] [place] [id number] [place] Creatinine [Mass/Vol] 1.08 mg/dL Normal 0.73-1.22 [facility] Comment on above: Order Comment: Speci men Type: BLOOD SPECIMENOrdering Facility: [facility] Address: [address] [place] [address] Performed By: #### 2 4323-8 ####[facility] LABORATORYCLIA [id number] [place] [id number] [facility] [place] Creatinine and Glomerular filtration rate.predicted panel (S/P/Bld) 82 mL/min/1.73m??? Normal >=60 [facility] Comment on above: Order Comment: Speci men Type: BLOOD SPECIMENOrdering Facility: [facility] Address: [address] [place] [address] Result Comment: Dee mated Glomerular Filtration Rate [...] actual GFR. Performed By: #### 2 4323-8 ####[facility] LABORATORYCLIA [id number] [place] [id number] [place] Glucose [Mass/Vol] 97 mg/dL Normal 74-99 [facility] Comment on above: Order Comment: Speci gio Type: BLOOD SPECIMENOrdering Facility: [facility] Address: [address] [place] [address] Result Comment: The [place] [employer] (ADA) provides guidance for cutoff [...] Standards of Medical Care in Diabetes 2016, [place] [employer]. Diabetes Care. 2016.39(Suppl 1). Performed By: #### 2 4323-8 ####[facility] LABORATORYCLIA [id number] [place] [id number] [place] Potassium [Moles/Vol] 5.2 mmol/L High 3.7-5.1 [facility] Comment on above: Order Comment: Ara gio Type: BLOOD SPECIMENOrdering Facility: [facility] Address: [address] [place] [address] Performed By: #### 2 4323-8 ####[facility] LABORATORYCLIA [id number] [place] [id number] [place] Protein [Mass/Vol] 7.8 g/dL Normal 6.3-8.0 [facility] Comment on above: Order Comment: Ara gio Type: BLOOD SPECIMENOrdering Facility: [facility] Address: [address] [place], [place] [address] Performed By: #### 2 4323-8 ####[facility] LABORATORYCLIA [id number] [place] [id number] [place] Sodium [Moles/Vol] 131 mmol/L Low 136-144 [facility] Comment on above: Order Comment: Speci men Type: BLOOD SPECIMENOrdering Facility: [facility] Address: [address] [place] [address] Performed By: #### 2 4323-8 ####[facility] LABORATORYCLIA [id number] [place] [id number] [place] Urea nitrogen [Mass/Vol] 11 mg/dL Normal 9-24 [facility] Comment on above: Order Comment: Speci men Type: BLOOD SPECIMENOrdering Facility: [facility] Address: [address] [place] [address] Performed By: #### 2 4323-8 ####[facility] LABORATORYCLIA [id number] [place] [id number] [facility] [place] NURSING PROGon 06-02-2024 NURSING PROG HNO ID: [id number] Author: ABILIO TANG RN Service: PICC Team Author Type: Registered [...] June 02, 2024 TIME: 8:53 AM Normal [facility] Rosemarie 06-01-2024 CNPN Telephone ([facility]) PIPER RODRÍGUEZ Marychuy ([id number]) 1970 M Date Time Provider Department 06/01/24 DONIS CARIAS [facility] During your visit today, we recorded the following information about you: Be Cloud 06/01/2024 10:07 AM Signed 06/01 Patient called, stated that he wanted to cancel CT that was for 06/02 due to distance to appointment. Stated that will go to [facility] to gert CT done. Was wondering if able to go to [place] for CT? Jocelyn Cantrell RN 06/01/2024 11:03 AM Signed Spoke with patient. He was under the impression he could get his CT done in [place] and could have the images sent to Dr. Carias. We had a long discussion about the process to make that happen and my concerns that it would not be done in time to continue with his surgery on 06/14. He was agreeable to reschedule his CT at [place] on 06/02/24. He will get his lab work done tomorrow prior to his CT. Allergies As of Date: 06/01/2024 (No Known Allergies) Date Reviewed: 05/25/2024 Reviewed by: Jessica Bass OCCA - Fully Assessed Reason for Visit: Patient Question [1943] Prescriptions as of 06/01/2024 - metroNIDAZOLE (FLAGYL) [...] Encounter Status:Closed by JOCELYN CANTRELL on 06/01/24 [facility] CNOVon 05-25-2024 CNOV Office Visit ([facility] ) ANNEPIPER Perrin ([id number]) 1970 M Date Time Provider Department 05/25/24 11:20 AM DONIS CARIAS [facility] During your visit today, we recorded the [...] for internal providers or letter via the [employer] for external providers. Chief Complaint: [...] last colonoscopy prior to this was in 2018 with 2 polyps removed. Denies family history [...] mass Colonoscopy 05/10/24 - Dr. Hedrick @ [employer] Scan on 05/16/2024 9:34 AM by Norma Magallanes: Ann Matthew operative note (path pending) [id number] Pathology Scan on 05/22/2024 8:26 AM by Be Cloud: [facility] Pathology Report 05/11/24 COLON, Biopsy, Cecum: COLONIC TISSUE WITH INVASIVE ADENOCARCINOMA, MODERATELY DIFFERENTIATED, ULCERATION NOTED 2. COLON, Biopsy, Sigmoid: LARGE TUBULAR ADENOMA (>1 CM), NEGATIVE FOR HIGH GRADE DYSPLASIA, AREAS SHOWING CAUTERY ARTIFACT ARE POSITIVE FOR ADENOMATOUS GLANDS 3. COLON, Biopsy, Descending: TUBULAR ADENOMA. NEGATIVE FOR HIGH GRADE DYSPLASIA Colonoscopy 06/03/2018 - Dr Hedrick @ [facility] Scan on 05/15/2024 9:54 AM by Be Cloud: Seth Castro- Operative Report 06/03/18 Assessment Assessment and Plan: Piper Rodríguez is a 54 year old man with new diagnosis of cecal cancer. Discussed possibility of appendiceal in origin with extension into cecum. Regardless, the next step is to proceed with st (more content not included)... Normal [facility] Pathology Request for Lab Co rpon 05-10-2024 Pathology Request for Lab Bibiana Normal [facility] Comment on above: Order Comment: PATHO LOGY GI SPECIMEN Result Comment: See report. Scanned copy available in EMR. PERFORMED BY: [facility] [place] [address] PATHOLOGIST BUNGHOLE BORER ETHAN SOLANO M.D. Performed By: #### P ATH TO [facility] #### [facility] [address] Ambulatory Visit Summaryon 1 06-26-2023 Ambulatory Visit Summary Ambulatory Visit Summary PIPER RODRÍGUEZ :1970 Visit Date:04/25/2024 Ambulatory Visit Instructions Your Diagnosis Epigastric pain Positive occult stool blood test Iron deficiency anemia Your Care Team Attending Physician - FLORIDALMA PATEL, Jone Galeana Primary Care Physician - Casey APTEL, Gen Referring Physician - DR. KISHA ESTEVES [...] for choosing us for your care. Normal [facility] Dragan 09-13-2023 L Specimen: [id number] Re ceived: 09/14/23 Status: SOUT Req Num: [id number] Spec Type: Impression Subm Dr: Kisha Esteves MD Tissues: PATHPER Procedures: PATHREVIEW Age/ Patient Sex Location Account Attending Physician ZoltantiffaniePiper O 53/M [place] [id number] Kisha Esteves MD SPEC NUM: [id number] RECD: 09/14/23 STATUS: DEION CULLEN NUM: [id number] ANDREA: 09/13/[address]: Kisha Esteves MD ENTERED: 09/14/23 [facility] DR: Renaldo Fung SPEC TYPE: Impression DEPT: [facility] ENTERED BY: [id number] RECV BY: [id number] ORDERED: PATHREVIEW ORDERED: PATHREVIEW Pathologist Review Normocytic Anemia is noted. Bone Marrow Pathology Vs. Peripheral Etiology. [id number] -------- -------- Specimen: BP24 Received: 09/14/23 Status: DEION Deana Num: [id number] Spec Type: Impression Subm Dr: Kisha Esteves MD Tissues: PATHPER Procedures: PATHREVIEW -------- Patient: Piper Rodríguez [id number] (Continued) -------- Signed (signature on file) Ethan Solano MD 09/15/[address] [facility] Physician [facility] 08-02-2023 L Specimen: [id number] Re ceived: 08/03/23 Status: SOUT Req Num: [id number] Spec Type: Impression Subm Dr: Gen Peña MD Tissues: PATHPER Procedures: PATHREVIEW Age/ Patient Sex Location Account Attending Physician ZoltanPiper moreno Marychuy 53/M [place] [id number] Gen Peña MD SPEC NUM: [id number] RECD: 08/03/23 STATUS: DEION REQ NUM: [id number] ANDREA: 08/02/[address]: Gen Peña MD ENTERED: 08/03/23 [facility] DR: SPEC TYPE: Impression DEPT: [facility] ENTERED BY: [id number] RECV BY: [id number] ORDERED: PATHREVIEW ORDERED: PATHREVIEW Pathologist Review Abnormal [...] are also suggested -------- Specimen: [id number]- Received: 08/03/23 Status: DIEON Cullen Num: [id number] Spec Type: Impression Subm Dr: Gen Peña MD Tissues: PATHPER Procedures: PATHREVIEW -------- Patient: ZoltantiffaniePiper [id number] (Continued) -------- Specimen: BP24 Received: 08/03/23 (Continued) Pathologist Review (Continued) Signed (signature on file) Tammy Mathew MD 08/05/23 1828 -------- Specimen: [id number] Received: 08/03/23-135 Status: DEION Cullen Num: [id number] Spec Type: Impression Subm Dr: Gen Peña MD Tissues: PATHPER Procedures: PATHREVIEW -------- Patient: Piper Rodríguez [id number] (Continued) -------- Specimen: [id number] Received: 08/03/23-1350 (Continued) Pathologist Review (Continued) CPT: 97178 CBC No results available. -------- -------- Specimen: [id number] Received: 08/03/23-1349 Status: DEION Cullen Num: [id number] Spec Type: Impression Subm Dr: Gen Peña MD Tissues: PATHPER Procedures: PATHREVIEW -------- Patient: Piper Rodríguez [id number] (Continued) -------- Signed (signature on file) Tammy Mathew MD 08/05/231827 Normal [facility] T4 [facility] 02-05-2022 T4 [Mass/Vol] 9.2 ug/dL Normal 4.5-12.0 [facility] Comment on above: Performed By: #### T 4LC #### [facility] [address] [place] [address] Dr. Rayna Mathew CBC AUTO DIFFon 02-04-2022 BASO # 0.0 103/ul Normal 0.0-0.1 [facility] Comment on above: Performed By: #### C BC #### [facility] [address] [place] [address] [address] Rayna Mathew Basophils/100 WBC (Bld) 0.7 % Normal 0.2-2.0 [facility] Comment on above: Performed By: #### C BC #### [facility] [address] [place] [address] [address] Rayna Mathew EO # 0.4 103/ul Normal 0.0-0.7 [facility] Comment on above: Performed By: #### C BC #### [facility] [address] [place] [address] [address] Rayna Mathew Eosinophils/100 WBC (Bld) 6.7 % Normal 0.9-7.0 [facility] Comment on above: Performed By: #### C BC #### [facility] [address] [place] [address] Dr. Rayna Mathew Erythrocyte distribution width (RBC) [Ratio] 13.5 % Normal 11.0-15.0 [facility] Comment on above: Performed By: #### C BC #### [facility] [address] [place] [address] Dr. Rayna Mathew Hematocrit (Bld) [Volume fraction] 37.2 % Critically low 42.0-54.0 [facility] Comment on above: Performed By: #### C BC #### [facility] [address] [place] [address] Dr. Rayna Mathew Hemoglobin (Bld) [Mass/Vol] 11.5 g/dL Critically low 14.0-18.0 [facility] Comment on above: Performed By: #### C BC #### [facility] [address] [place] [address] Dr. Rayna Mathew IG # 0.02 10e3/ul Normal 0.00-0.03 [facility] Comment on above: Performed By: #### C BC #### [facility] [address] [place] [address] Dr. Rayna Mathew IG % 0.3 % Normal 0.0-0.5 [facility] Comment on above: Performed By: #### C BC #### [facility] [address] [place] [address] Dr. Rayna Mathew LYMPH # 1.4 103/ul Normal 1.2-3.8 [facility] Comment on above: Performed By: #### C BC #### [facility] [address] [place] [address] Dr. Rayna Mathew Lymphocytes/100 WBC (Bld) 23.8 % Normal 20.5-60.0 [facility] Comment on above: Performed By: #### C BC #### [facility] [address] [place] [address] Dr. Rayna Mathew MANUAL DIFF REQ NO Normal [facility] Comment on above: Performed By: #### C BC #### [facility] [address] [place] [address] Dr. Rayna Mathew MCH (RBC) [Entitic mass] 27.4 pg Normal 25.9-34.0 [facility] Comment on above: Performed By: #### C BC #### [facility] [address] [place] [address] Dr. Rayna Mathew MCHC (RBC) [Mass/Vol] 30.9 g/dL Normal 29.9-35.2 [facility] Comment on above: Performed By: #### C BC #### [facility] [address] [place] [address] Dr. Rayna Mathew MCV (RBC) [Entitic vol] 88.6 fL Normal 80.0-94.0 [facility] Comment on above: Performed By: #### C BC #### [facility] [address] [place] [address] Dr. Rayna Mathew MONO # 0.6 103/ul Normal 0.3-0.8 [facility] Comment on above: Performed By: #### C BC #### [facility] [address] [place] [address] Dr. Rayna Mathew Monocytes/100 WBC (Bld) 9.2 % Normal 1.7-12.0 [facility] Comment on above: Performed By: #### C BC #### [facility] [address] [place] [address] [address] Rayna Mathew NEUT # 3.5 103/ul Normal 1.4-6.5 [facility] Comment on above: Performed By: #### C BC #### [facility] [address] [place] [address] [address] Rayna Mathew Neutrophils/100 WBC (Bld) 59.3 % Normal 43.0-75.0 [facility] Comment on above: Performed By: #### C BC #### [facility] [address] [place] [address] Dr. Rayna Mathew Platelet mean volume (Bld) [Entitic vol] 10.4 fL Normal 9.5-13.5 [facility] Comment on above: Performed By: #### C BC #### [facility] [address] [place] [address] Dr. Rayna Mathew PLT 182 103/ul Normal 150-450 [facility] Comment on above: Performed By: #### C BC #### [facility] [address] [place] [address] Dr. Rayna Mathew RBC 4.20 106/ul Critically low 4.70-6.10 [facility] Comment on above: Performed By: #### C BC #### [facility] [address] [place] [address] Dr. Rayna Mathew WBC 6.0 103/ul Normal 4.0-11.0 [facility] Comment on above: Performed By: #### C BC #### [facility] [address] [place] [address] Dr. Rayna Mathew FREE T3on 02-04-2022 FREE T3 3.28 pg/mlL Normal 2.18-3.98 [facility] Comment on above: Performed By: #### F T3, TSH, CMP, LIPID #### [facility] [address] [place] [address] Dr. Rayna Mathew GLYCOHEMOGLOBIN A1Con 2021 ADA RECOMMENDATION SEE BELOW Normal [facility] Comment on above: Result Comment: ADA RECOMMENDED LIMIT 4.0 - 6.0 ADA THERAPEUTIC TARGET < 7.0 ACTION SUGGESTED > 7.0 Performed By: #### A 1C #### [facility] [address] [address] [address] Rayna Mathew Glucose [Mass/Vol] 123 mg/dL Normal [facility] Comment on above: Performed By: #### A 1C #### [facility] [address] [address] [address] Rayna Mathew HbA1c (Bld) [Mass fraction] 5.9 % Normal 4.5-6.2 [facility] Comment on above: Performed By: #### A 1C #### [facility] [address] [address] [address] Rayna Mathew LIPID PROFILEon 02-04-2022 CHOL-HDL RATIO NORM SEE BELOW Normal [facility] Comment on above: Result Comment: 3.3 - 4.4 LOW RISK 4.4 - 7.1 AVERAGE RISK 7.1 - 11.0 MODERATE RISK >11.0 HIGH RISK Performed By: #### F T3, TSH, CMP, LIPID #### [facility] [address] [place] [address] Dr. Rayna Mathew Cholesterol [Mass/Vol] 158 mg/dL Normal <=200 [facility] Comment on above: Performed By: #### F T3, TSH, CMP, LIPID #### [facility] [address] [place] [address] Dr. Rayna Mathew Cholesterol in HDL [Mass/Vol] 47 mg/dL Normal 40-60 [facility] Comment on above: Performed By: #### F T3, TSH, CMP, LIPID #### [facility] [address] [place] [address] Dr. Rayna Mathew Cholesterol in LDL [Mass/Vol] 98.0 mg/dL Normal [facility] Comment on above: Performed By: #### F T3, TSH, CMP, LIPID #### [facility] [address] [place] [address] Dr. Rayna Mathew Cholesterol.total/Cho lesterol in HDL [Mass ratio] 3.4 {ratio} Normal [facility] Comment on above: Performed By: #### F T3, TSH, CMP, LIPID #### [facility] [address] [address] [address] Rayna Mathew HDL NORMAL > or = 60 mg/dl - LO W CARDIOVASCULAR RISK <40 mg/dl - HIGH CARDIOVASCULAR RISK Normal [facility] Comment on above: Performed By: #### F T3, TSH, CMP, LIPID #### [facility] [address] [address] [address] Ranya Mathew LDL CALC NORMAL SEE BELOW Normal [facility] Comment on above: Result Comment: <100 mg/dl OPTIMAL 100 - 129 mg/dl NEAR OR ABOVE OPTIMAL 130 - 159 mg/dl BORDERLINE HIGH 160 - 189 mg/dl HIGH >190 mg/dl VERY HIGH Performed By: #### F T3, TSH, CMP, LIPID #### [facility] [address] [address] [address] Rayna Mathew Triglyceride [Mass/Vol] 65 mg/dL Normal <=150 [facility] Comment on above: Performed By: #### F T3, TSH, CMP, LIPID #### [facility] [address] [address] [address] Rayna Mathew VLDL CALC 13.0 mg/dL Normal [facility] Comment on above: Performed By: #### F T3, TSH, CMP, LIPID #### [facility] [address] [address] [address] Rayna Mathew PROF 14(COMP METB)on 022 Albumin [Mass/Vol] 3.8 g/dL Normal 3.4-5.0 [facility] Comment on above: Performed By: #### F T3, TSH, CMP, LIPID #### [facility] [address] [address] [address] Rayna Mathew Albumin/Globulin [Mass ratio] 0.9 {ratio} Normal [facility] Comment on above: Performed By: #### F T3, TSH, CMP, LIPID #### [facility] [address] [address] [address] Rayna Mathew ALP [Catalytic activity/Vol] 76 U/L Normal 46-116 [facility] Comment on above: Performed By: #### F T3, TSH, CMP, LIPID #### [facility] [address] [address] [address] Rayna Mathew ALT [Catalytic activity/Vol] 109 U/L Critically high 16-63 [facility] Comment on above: Performed By: #### F T3, TSH, CMP, LIPID #### [facility] [address] [address] [address] Rayna Mathew Anion gap [Moles/Vol] 11.1 mmol/L Normal Th e [facility] Comment on above: Performed By: #### F T3, TSH, CMP, LIPID #### [facility] [address] [address] [address] Rayna Mathew AST [Catalytic activity/Vol] 79 U/L Critically high 15-37 [facility] Comment on above: Performed By: #### F T3, TSH, CMP, LIPID #### [facility] [address] [address] [address] Rayna Mathew Bilirubin [Mass/Vol] 0.4 mg/dL Normal 0.2-1.0 [facility] Comment on above: Performed By: #### F T3, TSH, CMP, LIPID #### [facility] [address] [address] [address] Rayna Mathew Calcium [Mass/Vol] 9.0 mg/dL Normal 8.5-10.1 [facility] Comment on above: Performed By: #### F T3, TSH, CMP, LIPID #### [facility] [address] [address] [address] Rayna Mathew Chloride [Moles/Vol] 102 mmol/L Normal 98-107 [facility] Comment on above: Performed By: #### F T3, TSH, CMP, LIPID #### [facility] [address] [address] [address] Rayna Mathew CO2 [Moles/Vol] 29.5 mmol/L Normal 21.0-32.0 [facility] Comment on above: Performed By: #### F T3, TSH, CMP, LIPID #### [facility] [address] [address] [address] Rayna Mathew Creatinine [Mass/Vol] 0.96 mg/dL Normal 0.70-1.30 [facility] Comment on above: Performed By: #### F T3, TSH, CMP, LIPID #### [facility] [address] [place] [address] Dr. Rayna Mathew EGFR-AF BAHRAINI >60 Normal >=60 [facility] Comment on above: Performed By: #### F T3, TSH, CMP, LIPID #### [facility] [address] [address] [address] Rayna Mathew EGFR-NON AF BAHRAINI >60 Normal >=60 [facility] Comment on above: Performed By: #### F T3, TSH, CMP, LIPID #### [facility] [address] [place] [address] Dr. Rayna Mathew Globulin (S) [Mass/Vol] 4.0 g/dL Normal [facility] Comment on above: Performed By: #### F T3, TSH, CMP, LIPID #### [facility] [address] [place] [address] Dr. Rayna Mathew Glucose [Mass/Vol] 121 mg/dL Critically high 74-106 [facility] Comment on above: Performed By: #### F T3, TSH, CMP, LIPID #### [facility] [address] [place] [address] Dr. Rayna Mathew Potassium [Moles/Vol] 4.6 mmol/L Normal 3.5-5.1 [facility] Comment on above: Performed By: #### F T3, TSH, CMP, LIPID #### [facility] [address] [place] [address] Dr. Rayna Mathew Protein [Mass/Vol] 7.8 g/dL Normal 6.4-8.2 [facility] Comment on above: Performed By: #### F T3, TSH, CMP, LIPID #### [facility] [address] [place] [address] Dr. Rayna Mathew Sodium [Moles/Vol] 138 mmol/L Normal 136-145 [facility] Comment on above: Performed By: #### F T3, TSH, CMP, LIPID #### [facility] [address] [place] [address] [address] [address] Rayna Mathew Urea nitrogen [Mass/Vol] 11.0 mg/dL Normal 7.0-18.0 [facility] Comment on above: Performed By: #### F T3, TSH, CMP, LIPID #### [facility] [address] [place], [place] [address] Dr. Rayna Mathew Urea nitrogen/Creatinine [Mass ratio] 11.5 mg/mg Normal [facility] Comment on above: Performed By: #### F T3, TSH, CMP, LIPID #### [facility] [address] [place], [place] [address] Dr. Rayna Mathew TSHon 02-04-2022 TSH 1.905 uIU/mL Normal 0.358-3.74 0 [facility] Comment on above: Performed By: #### F T3, TSH, CMP, LIPID #### [facility] [address] [place], [place] [address] Dr. Rayna Mathew Vital Signs Date Time Vital Sign Value Performing Clinician Faci lity 01-11-2025 12:58-0400 Body height 177.8 cm Donis Carias MD Work Phone: [facility] 01-11-2025 12:58-0400 Body mass index (BMI) [Ratio] 36.16 kg/m2 Donis Carias MD Work Phone: [facility] 01-11-2025 12:58-0400 Body weight 114.31 kg Donis Carias MD Work Phone: [facility] 01-11-2025 12:58-0400 Diastolic blood pressure 80 mm[Hg] Donis Carias MD Work Phone: [facility] 01-11-2025 12:58-0400 Heart rate 69 /min Donis Carias MD Work Phone: [facility] 01-11-2025 12:58-0400 Systolic blood pressure 130 mm[Hg] Donis Carias MD Work Phone: [facility] 10-24-2024 09:55-0400 Body mass index (BMI) [Ratio] 36.28 kg/m2 Donis Carias MD Work Phone: [facility] 10-24-2024 09:55-0400 Body weight 114.7 kg Donis Carias MD Work Phone: [facility] 10-24-2024 09:55-0400 Diastolic blood pressure 91 mm[Hg] Donis Carias MD Work Phone: [facility] 10-24-2024 09:55-0400 Heart rate 71 /min Donis Carias MD Work Phone: [facility] 10-24-2024 09:55-0400 Systolic blood pressure 160 mm[Hg] Donis Carias MD Work Phone: [facility] 07-07-2024 08:50-0500 Body height 177.8 cm 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 APRN.GALLERY DIRECTOR Work Phone: [facility] 07-07-2024 08:50-0500 Body mass index (BMI) [Ratio] 35.87 kg/m2 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 [employer].GALLERY DIRECTOR Work Phone: [facility] 07-07-2024 08:50-0500 Body temperature 97.9 [degF] 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 [employer].GALLERY DIRECTOR Work Phone: [facility] 07-07-2024 08:50-0500 Body weight 113.4 kg 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 [employer].GALLERY DIRECTOR Work Phone: [facility] 07-07-2024 08:50-0500 Diastolic blood pressure 77 mm[Hg] 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 [employer].GALLERY DIRECTOR Work Phone: [facility] 07-07-2024 08:50-0500 Heart rate 88 /min 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 APRN.GALLERY DIRECTOR Work Phone: [facility] 07-07-2024 08:50-0500 SaO2% (BldA) [Mass fraction] 99 % Maylin Willner [employer].GALLERY DIRECTOR Work Phone: [facility] 07-07-2024 08:50-0500 Systolic blood pressure 134 mm[Hg] 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 [employer].GALLERY DIRECTOR Work Phone: [facility] 06-28-2024 15:21-0500 Blood Pressure Location Jone NILL [facility] [place] 06-28-2024 15:21-0500 Diastolic blood pressure 84 mm[Hg] Jone NILL [facility] 06-28-2024 15:21-0500 Heart rate 72 /min Jone NILL [facility] 06-28-2024 15:21-0500 Respiratory rate 16 /min Jone NILL [facility] [place] 06-28-2024 15:21-0500 Systolic blood pressure 128 mm[Hg] Jone NILL [facility] 06-28-2024 10:56-0500 Body height 177.8 cm Joseph Bragg MD Work Phone: [facility] 06-28-2024 10:56-0500 Body mass index (BMI) [Ratio] 36.47 kg/m2 Joseph Bragg MD Work Phone: [facility] 06-28-2024 10:56-0500 Body temperature 97.3 [degF] Joseph Bragg MD Work Phone: [facility] 06-28-2024 10:56-0500 Body weight 115.3 kg Joseph Bragg MD Work Phone: [facility] 06-28-2024 10:56-0500 Diastolic blood pressure 79 mm[Hg] Joseph Bragg MD Work Phone: [facility] 06-28-2024 10:56-0500 Heart rate 74 /min Joseph Bragg MD Work Phone: [facility] 06-28-2024 10:56-0500 Respiratory rate 18 /min Joseph Bragg MD Work Phone: [facility] 06-28-2024 10:56-0500 SaO2% (BldA) [Mass fraction] 97 % Joseph Bragg MD Work Phone: [facility] 06-28-2024 10:56-0500 Systolic blood pressure 118 mm[Hg] Joseph Bragg MD Work Phone: [facility] 06-08-2024 08:34-0500 Body height 177.8 cm Pacc 1 Work Phone: [facility] 06-08-2024 08:34-0500 Body mass index (BMI) [Ratio] 38.78 kg/m2 Pacc 1 Work Phone: [facility] 06-08-2024 08:34-0500 Body temperature 98.01 [degF] Pacc 1 Work Phone: [facility] 06-08-2024 08:34-0500 Body weight 122.6 kg Pacc 1 Work Phone: [facility] 06-08-2024 08:34-0500 Diastolic blood pressure 82 mm[Hg] Pacc 1 Work Phone: [facility] 06-08-2024 08:34-0500 Heart rate 72 /min Pacc 1 Work Phone: [facility] 06-08-2024 08:34-0500 Respiratory rate 15 /min Pacc 1 Work Phone: [facility] 06-08-2024 08:34-0500 SaO2% (BldA) [Mass fraction] 98 % Pacc 1 Work Phone: [facility] 06-08-2024 08:34-0500 Systolic blood pressure 128 mm[Hg] Pacc 1 Work Phone: [facility] 05-25-2024 11:10-0500 Body height 177.8 cm Donis Carias MD Work Phone: [facility] 05-25-2024 11:10-0500 Body mass index (BMI) [Ratio] 38.88 kg/m2 Donis Carias MD Work Phone: [facility] 05-25-2024 11:10-0500 Body temperature 97 [degF] Donis Carias MD Work Phone: [facility] 05-25-2024 11:10-0500 Body weight 122.92 kg Donis Carias MD Work Phone: [facility] 05-25-2024 11:10-0500 Diastolic blood pressure 84 mm[Hg] Donis Carias MD Work Phone: [facility] 05-25-2024 11:10-0500 Heart rate 68 /min Donis Carias MD Work Phone: [facility] 05-25-2024 11:10-0500 SaO2% (BldA) [Mass fraction] 97 % Donis Carias MD Work Phone: [facility] 05-25-2024 11:10-0500 Systolic blood pressure 124 mm[Hg] Donis Carias MD Work Phone: [facility] 04-25-2024 10:21-0500 Blood Pressure Location Jone HEDRICK [facility] [place] 04-25-2024 10:21-0500 Diastolic blood pressure 80 mm[Hg] Jone HEDRICK [facility] 04-25-2024 10:21-0500 Heart rate 68 /min Jone HEDRICK [facility] 04-25-2024 10:21-0500 Respiratory rate 16 /min Jone FLORIDALMA [facility] 04-25-2024 10:21-0500 Systolic blood pressure 138 mm[Hg] Jone HEDRICK [facility] Encounters Encounter Date Encounter Type Care Provider Facility Start: 01-11-2025 End: 01-11-2025 Patient encounter procedure Donis Carias MD Work Phone: Colorectal Surgery Comment on above: Incisional hernia, w ithout obstruction or gangrene (Primary Dx) Start: 12-27-2024 End: 12-27-2024 ambulatory Jone HEDRICK Facility:[facility] Start: 12-27-2024 End: 12-27-2024 Patient encounter procedure Jone HEDRICK [facility] Start: 10-24-2024 End: 10-24-2024 Patient encounter procedure Donis Carias MD Work Phone: COLORECTAL SURGERY Comment on above: Follow-up examinatio n after colorectal surgery (Primary Dx); History of colon cancer Start: 10-24-2024 End: 10-24-2024 ambulatory DONIS CARIAS Facility:[facility] Start: 10-09-2024 End: 10-09-2024 Chart abstracting Tori Gandhi RN Work Phone: Hematology/Oncology Comment on above: Research (TCI Resear ch Pre-Screening ([id number])) Start: 10-04-2024 End: 10-04-2024 Chart abstracting Abdias Evans MD Work Phone: Hematology/Oncology Start: 09-27-2024 End: 09-27-2024 ambulatory JOE KAREN [facility] Start: 07-18-2024 End: 07-18-2024 ambulatory Jone HEDRICK Facility:[facility] Start: 07-18-2024 End: 07-18-2024 Patient encounter procedure Jone Galeana FLORIDALMA [facility] Start: 07-07-2024 End: 07-07-2024 ambulatory MAYLINSHALA CONTE Facility:[facility] Start: 07-07-2024 End: 07-07-2024 Patient encounter procedure 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 [employer].GALLERY DIRECTOR Work Phone: Colorectal Surgery Comment on above: Follow-up examinatio n after colorectal surgery (Primary Dx); Encounter for staple removal Start: 07-05-2024 End: 07-05-2024 ambulatory Jone HEDRICK Facility:[id number] Start: 06-30-2024 End: 06-30-2024 Telephone encounter Chelle Willis RN Work Phone: Hematology/Oncology Comment on above: Care Coordination (C ancelling appointments at our office) Start: 06-29-2024 End: 06-29-2024 Chart abstracting Camryn Beaulieu Research Coordinator Hematology/Oncology Comment on above: Research (TCI Resear ch Pre-Screening (IRB: [id number])) Start: 06-29-2024 End: 07-05-2024 Telephone encounter Chelle Willis RN Work Phone: Hematology/Oncology Comment on above: Care Coordination (T reatment prep) Start: 06-28-2024 End: 06-28-2024 Patient encounter procedure Jone HEDRICK [facility] Start: 06-28-2024 End: 06-28-2024 ambulatory JOSEPH BRAGG Facility:[facility] Start: 06-28-2024 End: 06-28-2024 Office outpatient new 60 minutes Joseph Bragg MD Work Phone: Hematology/Oncology Comment on above: Malignant neoplasm o f ascending colon (HCC) Start: 06-26-2024 End: 06-26-2024 Orders Only Donis Carias MD Work Phone: Colorectal Surgery Comment on above: Malignant neoplasm o f ascending colon (HCC) (Primary Dx) Start: 06-21-2024 End: 06-21-2024 ambulatory Jone Galeana FLORIDALMA Facility:[facility] Start: 06-21-2024 End: 06-21-2024 Patient encounter procedure Jone HEDRICK [facility] [place] Start: 06-21-2024 End: 06-21-2024 Telephone encounter Donis Carias MD Work Phone: Colorectal Surgery Start: 06-21-2024 End: 06-23-2024 Evaluation and management of inpatient GEN PEÑA Facility:[facility] Start: 06-20-2024 End: 06-20-2024 Telephone encounter Donis Carias MD Work Phone: Colorectal Surgery Comment on above: Post Op Start: 06-19-2024 End: 06-19-2024 Telephone encounter Donis Carias MD Work Phone: Colorectal Surgery Comment on above: Patient Question Start: 06-14-2024 End: 06-16-2024 Evaluation and management of inpatient DONIS CARIAS Facility:[facility] Start: 06-08-2024 End: 06-08-2024 Admission to establishment Pacc [facility] 1 Work Phone: Pre Anesthesia Start: 06-08-2024 End: 06-08-2024 ambulatory DONIS CARIAS Facility:[facility] Start: 06-08-2024 End: 06-08-2024 Anesthesia consultation Pacc 1 Work Phone: Pre Anesthesia Comment on above: Pre-op evaluation (P rimary Dx); BMI 38.0-38.9,adult; Smokeless tobacco use; SHERIE (obstructive sleep apnea) Start: 06-08-2024 End: 06-08-2024 Preprocedural examination done Pacc 1 Work Phone: [facility] Work Phone: Start: 06-05-2024 End: 06-05-2024 Telephone encounter Donis Carias MD Work Phone: [facility] Provider Adult Start: 06-02-2024 End: 06-02-2024 ambulatory DONIS CARIAS Facility:[facility] Start: 06-02-2024 ambulatory DONIS CARIAS Facili ty:[facility] Start: 06-02-2024 End: 06-02-2024 Subsequent hospital visit by physician Ct [facility] Comment on above: Malignant neoplasm o f ascending colon (HCC) [C18.2] Start: 06-01-2024 End: 06-01-2024 Telephone encounter Donis Carias MD Work Phone: Colorectal Surgery Comment on above: Patient Question Start: 05-25-2024 End: 05-25-2024 ambulatory DONIS CARIAS Facility:[facility] Start: 05-25-2024 End: 05-25-2024 Patient encounter procedure Donis Carias MD Work Phone: Colorectal Surgery Comment on above: Malignant neoplasm o f ascending colon (HCC) (Primary Dx) Start: 05-10-2024 End: 05-10-2024 ambulatory Jone R Kirstinl Facility:[facility] Start: 05-10-2024 End: 05-10-2024 ambulatory Jone R NILL Facility:[facility]:[id number] Start: 04-25-2024 End: 04-25-2024 ambulatory KISHA DANIELITO Facility:[facility] Start: 04-25-2024 End: 04-25-2024 Patient encounter procedure Jone R NILL [facility] [place] Start: 09-13-2023 End: 09-13-2023 [facility] Start: 09-13-2023 End: 09-13-2023 Departed Referred MD Gen Peña Work Phone: [facility] Start: 08-02-2023 End: 08-02-2023 ambulatory Gen Peña Facility:[facility] Start: 08-02-2023 End: 08-02-2023 Departed Referred MD Gen Peña Work Phone: [facility] Start: 07-14-2022 End: 07-15-[address] GEN PEÑA . Facility:[facility] Start: 02-10-[address] GEN PEÑA . Facili ty:[facility] Start: 02-08-2022 Encounter for genera l adult medical examination without abnormal findings DR GEN PEÑA . [facility] Start: 02-04-2022 End: 02-05-[address] GEN PEÑA . Facility:[facility] Start: 02-04-2022 End: 02-05-2022 Encounter for general adult medical examination without abnormal findings DR GEN PEÑA . Facility:[facility] Start: 08-01-[address] GEN PEÑA . Facili ty:[facility] Procedures Date Procedure Procedure Detail Performing Clinician Start: 10-24-2024 Follow-up visit Follow Up ODNIS CARIAS Start: 07-05-2024 Insertion of implantable venous access port Jone HEDRICK Start: 06-14-2024 Right colectomy Jone MENDEZL Start: 06-08-2024 Ecg routine ecg w/least 12 lds i&r only [facility] Provider Start: 05-10-2024 Colonoscopy Jone MENDEZL Start: 05-10-2024 Esophagogastroduodenoscopy Jone MENDEZL Start: 02-04-[address] GEN PEÑA . Comment on above: Performed By: #### PSASC #### [facility] [address] [place] [address] Dr. Rayna Mathew Start: 06-03-2018 Colonoscopy Jone MENDEZL Repair of joint of left hip Jone HEDRICK Repair of joint of right hip Jone HEDRICK Plan of Treatment Date Care Activity Detail Author Start: 06-08-2034 Urine microalbumin profile DTaP,Tdap,Td Vaccine (2 - Td or Tdap) [facility] Start: 06-23-2027 Diabetes Screening Diabetes Screening [facility] Start: 06-16-2027 Diabetes Screening Diabetes Screening [facility] Start: 06-02-2027 Diabetes Screening Diabetes Screening [facility] Start: 06-28-2025 BP Controlled (<130/80) BP Controlled (<130/80) [facility] Start: 01-22-2025 Influenza vaccination [facility] Start: 10-24-2024 End: 10-24-2024 Patient encounter procedure COLORECTAL SURGERY Comment on above: 3 month follow up 3 month follow up la paroscopic right colectomy on 06/14/2024 for colon cancer Start: 10-09-2024 End: 10-09-2024 ambulatory 10/09/2024 4:00 PM EDT Visit (SP) Office Hematology/Oncology [address] [place] [address] [place] [address] Abdias Evans MD [address] [place] [address] [place] [address] Kisha Esteves for 2nd opinion DX: Colon CA Hematology/Oncology Comment on above: Ref by Dr Kisha Esteves for 2nd opinion DX: Colon CA Start: 07-14-2024 End: 07-14-2024 ambulatory 07/14/2024 11:30 AM [facility] Hematology/Oncology [address] [place] [address] pump disconnect Hematology/Oncology Comment on above: pump disconnect Start: 07-12-2024 End: 10-11-2024 Carcinoembryonic Ag [Mass/volume] in Serum or Plasma CARCINOEMBRYONIC ANTIGEN Lab Routine Malignant neoplasm of ascending colon (HCC) Expected: 07/12/2024 (Approximate), Expires: 10/11/2024 [facility] Comment on above: Expected: 07/12/2024 (Approximate), Expi res: 10/11/2024 Start: 07-12-2024 End: 10-11-2024 CBC W Auto Differential panel - Blood COMPLETE BLOOD COUNT AND DIFFERENTIAL Lab Routine Malignant neoplasm of ascending colon (HCC) Expected: 07/12/2024 (Approximate), Expires: 10/11/2024 [facility] Comment on above: Expected: 07/12/2024 (Approximate), Expi res: 10/11/2024 Start: 07-12-2024 End: 10-11-2024 Comprehensive metabolic 2000 panel - Serum or Plasma COMPREHENSIVE METABOLIC PANEL Lab Routine Malignant neoplasm of ascending colon (HCC) Expected: 07/12/2024 (Approximate), Expires: 10/11/2024 [facility] Comment on above: Expected: 07/12/2024 (Approximate), Expi res: 10/11/2024 Start: 07-12-2024 End: 10-11-2024 Ferritin [Mass/volume] in Serum or Plasma FERRITIN Lab Routine Malignant neoplasm of ascending colon (HCC) Expected: 07/12/2024 (Approximate), Expires: 10/11/2024 [facility] Comment on above: Expected: 07/12/2024 (Approximate), Expi res: 10/11/2024 Start: 07-12-2024 End: 10-11-2024 Iron and Iron binding capacity panel - Serum or Plasma IRON AND TIBC Lab Routine Malignant neoplasm of ascending colon (HCC) Expected: 07/12/2024 (Approximate), Expires: 10/11/2024 [facility] Comment on above: Expected: 07/12/2024 (Approximate), Expi res: 10/11/2024 Start: 07-12-2024 End: 10-11-2024 MISC SEND OUT TST 1 MISC SEND OUT TST 1 Lab Routine Malignant neoplasm of ascending colon (HCC) Expected: 07/12/2024 (Approximate), Expires: 10/11/2024 [facility] Comment on above: Expected: 07/12/2024 (Approximate), Expi res: 10/11/2024 Start: 07-12-2024 End: 07-12-2024 Follow-up encounter Hematology/Oncology Comment on above: 2 week follow up with l;ab port draw adán motx folfox pump connect Start: 07-07-2024 End: 07-07-2024 Patient encounter procedure 07/07/2024 9:00 AM EST Office Visit Colorectal Surgery [address] [place] [address] 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, [employer].GALLERY DIRECTOR [address], [address] [place] [address] Post Op: Staple Removal - Lap RHC 06/14 [place] Colorectal Surgery Comment on above: Post Op: Staple Removal - Lap RHC 06/14 A K Start: 07-05-2024 IR PORTOCATH PLACEMENT IR PORTOCATH PLACEMENT Radiology Routine Malignant neoplasm of ascending colon (HCC) Expected: 07/05/2024 (Approximate) [facility] Work Phone: Comment on above: Expected: 07/05/2024 (Approximate) Start: 07-05-2024 End: 07-05-2024 Patient encounter procedure 07/05/2024 10:40 AM EST Office Visit Colorectal Surgery [address] [place] [address] 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, [employer].GALLERY DIRECTOR [address], [facility] [address] [place] [address] Post Op Lap RHC 06/14 [place] Colorectal Surgery Comment on above: Post Op Lap RHC 06/14 [place] Start: 06-30-2024 End: 06-30-2024 Patient encounter procedure 06/30/2024 3:40 PM EST Office Visit Colorectal Surgery [address] [facility] [address] [place] [address] 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, [employer] W[employer].GALLERY DIRECTOR [address], [facility] [address] [place] [address] Post Op Lap RHC 06/14 [place] Colorectal Surgery Comment on above: Post Op Lap RHC 06/14 [place] Start: 06-30-2024 End: 06-30-2024 Nursing evaluation of patient and report 06/30/2024 1:00 PM EST Nurse Visit Hematology/Oncology [address] [place] [address] [place] [address] Chelle Willis, RN [address] [place] [address] Chemo ed Folfox with pump connect Hematology/Oncology Comment on above: Chemo ed Folfox with pump connect Start: 06-28-2024 End: 06-28-2024 ambulatory 06/28/2024 11:00 AM EST Visit (SP) Office Hematology/Oncology [address] [place] [address] Joseph Bragg MD [address] [place] [address] Malignant neoplasm of ascending colon Hematology/Oncology Comment on above: Malignant neoplasm of ascending colon Start: 06-22-2024 End: 06-22-2024 Patient encounter procedure 06/22/2024 8:40 AM EST Office Visit Colorectal Surgery [address] [id number] [place] [address] [place] [id number] Post Op surgical wound check Colorectal Surgery Comment on above: Post Op surgical wound check Start: 06-21-2024 End: 06-21-2024 Exploratory laparotomy celiotomy w/wo biopsy spx EXPLORATORY LAPAROTOMY Perioperative dehiscence of abdominal wound with evisceration 06/21/2024 3:00 PM EST [facility] Start: 06-14-2024 End: 06-14-2024 Admission to same day surgery center 06/14/2024 7:30 AM EST - 06/14/2024 11:45 AM EST Surgery [facility] Operating Room [address] [place] [address] [place] [address] [place] [id number] LAPAROSCOPY COLECTOMY, PARTIAL, W/ REMOVAL TERMINAL ILEUM W/ ILEOCOLOSTOMY [facility] Operating Room Comment on above: LAPAROSCOPY COLECTOMY, PARTIAL, W/ REMOV AL TERMINAL ILEUM W/ ILEOCOLOSTOMY Start: 06-14-2024 End: 06-14-2024 Laps colectomy prtl w/rmvl terminal ileum LAPAROSCOPY COLECTOMY, PARTIAL, W/ REMOVAL TERMINAL ILEUM W/ ILEOCOLOSTOMY Malignant neoplasm of ascending colon (HCC) 06/14/2024 7:30 AM EST [facility] OR Start: 06-14-2024 Subsequent hospital visit by physician [facility] Operating Room Comment on above: Malignant neoplasm of ascending colon (H CC) [C18.2] Start: 06-08-2024 End: 06-08-2024 Admission to same day surgery center 06/08/2024 8:50 AM EST PAT Pre Anesthesia [address] [facility] [address] surgery date 06/14 Pre Anesthesia Comment on above: surgery date 06/14 Start: 06-02-2024 End: 06-02-2024 ambulatory 06/02/2024 10:00 AM EST Results Only [facility] Draw Station [address] [place] [address] [facility] Draw Station Start: 06-02-2024 End: 06-02-2024 Patient encounter procedure Radiology Comment on above: CT CHEST/ABD/PELVIS Ct prep Abd/Pel/Chest Start: 05-25-2024 End: 08-24-2024 Carcinoembryonic Ag [Mass/volume] in Serum or Plasma CARCINOEMBRYONIC ANTIGEN Lab Routine Malignant neoplasm of ascending colon (HCC) Expected: 05/25/2024 (Approximate), Expires: 08/24/2024 [facility] Comment on above: Expected: 05/25/2024 (Approximate), Expi res: 08/24/2024 Start: 05-25-2024 End: 08-24-2024 CBC W Auto Differential panel - Blood COMPLETE BLOOD COUNT AND DIFFERENTIAL Lab Routine Malignant neoplasm of ascending colon (HCC) Expected: 05/25/2024 (Approximate), Expires: 08/24/2024 [facility] Work Phone: Comment on above: Expected: 05/25/2024 (Approximate), Expi res: 08/24/2024 Start: 05-25-2024 End: 08-24-2024 Comprehensive metabolic 2000 panel - Serum or Plasma COMPREHENSIVE METABOLIC PANEL Lab Routine Malignant neoplasm of ascending colon (HCC) Expected: 05/25/2024 (Approximate), Expires: 08/24/2024 [facility] Comment on above: Expected: 05/25/2024 (Approximate), Expi res: 08/24/2024 Start: 01-23-2024 Covid-19 Vaccine ( season) Covid-19 Vaccine ( season) [facility] Start: 01-23-2024 Influenza vaccination Influenza Vaccine (#1) [facility] Start: 2021 Pneumococcal Vaccine: 50+ (1 of 1 - PCV) Pneumococcal Vaccine: 50+ (1 of 1 - PCV) [facility] Start: 2021 Shingrix Vaccine (1 of 2) Shingrix Vaccine (1 of 2) [facility] Start: 02-18-2016 Diabetes Screening Diabetes Screening [facility] Start: 02-18-2016 Screening for malignant neoplasm of colon [facility] Start: 2006 Lipid panel Lipid Screening [facility] Start: 1990 Hepatitis B Vaccine (1 of 3 - 19+ 3-dose series) Hepatitis B Vaccine (1 of 3 - 19+ 3-dose series) [facility] Start: 1990 Urine microalbumin profile DTaP,Tdap,Td Vaccine (1 - Tdap) [facility] Start: 1989 Annual PCP Team Chronic Disease Visit Annual PCP Team Chronic Disease Visit [facility] Start: 1989 Anxiety Screening Anxiety Screening [facility] Start: 1989 BP Controlled (<130/80) BP Controlled (<130/80) [facility] in Start: 1989 Depression Screening Depression Screening [facility] Start: 1989 Hepatitis C screening Hepatitis C Screening [facility] Start: 1989 HIV screening HIV Screening [facility] End: 06-24-2025 CT Abdomen and Pelvis W contrast IV CT ABD/PEL W IVCON Radiology Routine Malignant neoplasm of ascending colon (HCC) 1 Occurrences starting 05/25/2024 until 06/24/2025 [facility] Comment on above: 1 Occurrences starting 05/25/2024 until 06/24/2025 CT Abdomen and Pelvi s W contrast IV CT ABD/PEL W IVCON Radiology Routine Malignant neoplasm of ascending colon (HCC) 06/02/2024 9:41 AM EST [facility] Work Phone: End: 06-24-2025 CT Chest W contrast IV CT CHEST W IVCON Radiology Routine Malignant neoplasm of ascending colon (HCC) 1 Occurrences starting 05/25/2024 until 06/24/2025 [facility] Comment on above: 1 Occurrences starting 05/25/2024 until 06/24/2025 CT Chest W contrast IV CT CHEST W IVCON Radiology Routine Malignant neoplasm of ascending colon (HCC) 06/02/2024 9:41 AM EST [facility] ECG COMPLETE [facility] Work Phone: Comment on above: Ordered: 06/08/2024 Laps colectomy prtl w/rmvl terminal ileum LAPAROSCOPY COLECTOMY, PARTIAL, W/ REMOVAL TERMINAL ILEUM W/ ILEOCOLOSTOMY Malignant neoplasm of ascending colon (HCC) [facility] Immunizations Immunization Date Immunization Notes Care Provider Fa cility 09-19-2020 SARS-CoV-2 (COVID-19 ) mRNA-1273 vaccine Jone HEDRICK [facility] Comment on above: Result Comment: 2023: TPV40 08-22-2020 SARS-CoV-2 (COVID-19 ) mRNA-1273 vaccine Jone HEDRICK [facility] Comment on above: Result Comment: 2023: TPV40 03-15-2018 influenza, injectabl e, quadrivalent, preservative free Abdias Evans MD Work Phone: [facility] 03-15-2018 influenza virus vaccine, unspecified formulation Donis Carias MD Work Phone: [facility] Payers Date Payer Category Payer Private Health Insurance [id number] 2023 Unknown MMO MMO [employer] PPO [id number] 2023-Present [phone] [address] [place] [address] PPO [id number] 2023 Self-pay 1971 Unknown [id number] 1971 Unknown [id number] 1971 Unknown [id number] .593 1971 Unknown [id number] 1971 Unknown [id number] .727 1971 Unknown [id number] [id number] .727 1971 Unknown [id number] .727 1971 Unknown [id number] .727 1971 Unknown [id number] [id number] .727 1971 Unknown [id number] [id number] .727 1971 Unknown [id number] .727 1959 Self-pay [id number] 1959 Unknown [id number] Unknown [place] BC/BS [id number] Unknown [id number] Unknown [id number] [id number] .531 Unknown [id number] .531 Social History Date Type Detail Facility [facility] Work Phone: Start: 1970 Sex Assigned At Male [facility] Start: 04-25-2024 End: 10-04-2024 Tobacco smoking status Never smoked tobacco (finding) [facility] Start: 05-15-2024 Tobacco smoking status Smokele ss tobacco user within last 30 days [facility] Start: 05-25-2024 End: 06-02-2024 Sex Assigned At Male [facility] Start: 05-25-2024 End: 10-04-2024 Tobacco use and exposure User of smokeless tobacco [facility] History of tobacco use Chews Tobacco [facility] Start: 05-25-2024 End: 06-02-2024 History of Social function [facility] Start: 1970 Sex assigned at Not on file C [facility] Start: 06-08-2024 End: 10-04-2024 Alcoholic beverage intake Ex-drinker (finding) [facility] Has the [employer], [employer], [employer], or water company threatened to shut off services in your home in past 12Mo No [facility] (I/We) worried whekiana er (my/our) food would run out before (I/we) got money to buy more. Never true [facility] History of tobacco use Passive smoker [facility] Sexual Orientation [facility] Start: 06-03-2018 Sex Male (finding) [facility] Functional Status Date Assessment Result Facility 07-18-2024 Functional Status N/A [facility] 06-28-2024 Functional Status N/A [facility] 06-23-2024 Are you deaf, or do you have serious difficulty hearing No 06/23/2024 10:06 AM Jessica Urban RN No [facility] 06-23-2024 Are you blind, or do you have serious difficulty seeing, even when wearing glasses No 06/23/2024 10:06 AM Jessica Urban RN No [facility] 06-23-2024 Do you have serious difficulty walking or climbing stairs No 06/23/2024 10:06 AM Jessica Urban RN No [facility] 06-23-2024 Do you have difficul ty dressing or bathing No 06/23/2024 10:06 AM Jessica Urban RN No [facility] 06-23-2024 Because of a physica l, mental, or emotional condition, do you have difficulty doing errands alone such as visiting a physician's office or shopping No 06/23/2024 10:06 AM Jessica Urban RN No [facility] 04-25-2024 Functional Status N/A [facility] Mental Status Date Assessment Result Facility 06-23-2024 Because of a physica l, mental, or emotional condition, do you have serious difficulty concentrating, remembering, or making decisions No 06/23/2024 10:06 AM Jessica Urban RN No [facility] Clinical Notes 04-25-2024 to 01-11-2025 Patient InstructionsDonis Carias MD - 01/11/2025 1:00 PM EDTPatient InstructionsDonis Carias MD - 10/24/2024 10:00 AM Tori Hanson RN - 10/09/2024 12:40 PM EDT Note Date & Type Note Facility 01-11-2025 Instructions Donis Carias MD - 01/11/2025 1:33 PM EDT [...] to our office. documented in this encounter [facility] 01-11-2025 History of Present illness Narrative [facility]OR[facility]AL SURGERY CLINIC NOTE January 11, 2025 Piper Rodríguez 54 year old Recording using [employer] software for draft documentation of the visit was discussed with the patient/authorized sales representative meats; all questions welcomed and answered. Patient/authorized sales representative meats agreed to proceed Chief Complaint: abdominal hernia Brief History: Piper Rodríguez is a 54 year old male s/p [...] nausea, vomiting, constipation, diarrhea, hematochezia, or any symptoms suggestive of bowel obstruction or hernia incarceration. He maintains a clean diet and reports a normal appetite. He is currently undergoing chemotherapy, with one round remaining in January. He does not smoke but uses chewing tobacco. PAST MEDICAL HISTORY Diagnosis Date BMI 38.0-38.9,adult Colon cancer (HCC) HTN (hypertension) PAST SURGICAL HISTORY Procedure Laterality Date COLONSCOPY SCREENING HIGH RISK PAST SURGICAL HISTORY OF Bilateral hip arthroplasty (2018, 2020) PAST SURGICAL HISTORY OF 04/2024 colonoscopy (2019) Current Outpatient Medications Medication Sig Dispense Refill [...] capsule by mouth once daily. 30 capsule 0 EDARBI 80 mg tab iv contrast [...] Wt 114.3 kg (252 lb) BMI 36.16 kg/m General Appearance: Well appearing, alert, in no acute distress, well-hydrated, well nourished. Abdomen: soft, non distended, non tender. ~1cm fascia defect above and below incision, as well as diastasis recti Colonoscopy 06/03/2018 - Dr Hedrick @ [employer] Scan on 05/15/2024 9:54 AM by Be Cloud: Seth Castro- Operative Report 06/03/18 Colonoscopy 05/10/24 - Dr. Hedrick @ [employer] Scan on 05/16/2024 9:34 AM by Norma Magallanes: Seth Castro operative note (path pending) [id number] Pathology Scan on 05/22/2024 8:26 AM by Be Cloud: [facility] Pathology Report 05/11/24 COLON, Biopsy, Cecum: COLONIC [...] 2.5 View External Labs - Chemistry [ID [id number]] Surveillance CT C A P on 09/26/2024 at [facility] -images uploaded into [facility] -no evidence of recurrence in chest, abdomen, pelvis Scan on 10/06/2024 10:52 AM by Dat Brown: [facility] - CT Scan, 09/26/24 Assessment Assessment and Plan: Piper Rodríguez is a 54 year old male s/p [...] CT Abdomen, CT Pelvis I have discussed Piper Rodríguez's treatment plan [...] use: Not Currently documented in this encounter [facility] 12-27-2024 Note General Surgery Offi ce/Clinic Note Chief Complaint consultation for port removal HPI Staff Presents to discuss removal of Gggdbj-w-jasc. Port placed 06/2024 for chemotherapy due to colon cancer. He was experiencing cardiac side effects on infusion therapy. This was discontinued and changed to oral therapy in October. He will remain on oral therapy until of this year. History of Present Illness 54 yo male with h/o stage IIIB colon cancer, s/p right colectomy 05/2024; right external jugular port-a-cath insertion 06/2024; completed chemotherapy; for possible port removal; has follow up CT scans in March and surveillance colonoscopy 04/2025; port working well, no pain; port flushed monthly. Review of Systems PHQ Score Initial Depression [...] & Measurements HR: 72(Peripheral) RR: 16 BP: 114/66 HT: 177.8 cm HT: 70 in WT: 255.736 lb WT: 116 kg BMI: 36.69 HEENT: normal conjunctiva, sclera clear, no scleral icterus, EOM intact, PERRLA, oral mucosa moist without lesions. Neck: trachea midline, no mass, symmetric, no thyromegaly or nodules, no adenopathy Respiratory: lungs CTA, respirations non labored. Cardiovascular: regular rate and rhythm, no murmur, no pedal edema or varicosities. Gastrointestinal: obese, soft, non distended, no tenderness, no masses, yes palpable hernias, upper midline incision, reducible; diastasis recti yes, no hepatosplenomegaly; normal bs Musculoskeletal: normal gait, digits and nails without infection, nodes, cyanosis, clubbing. Skin: no rashes, no lesions, no ulcers, no subcutaneous nodules, induration. port incisions well-healed, nontender, no skin changes. Psychiatric/Neuro: oriented to time, place, person, judgement normal, affect appropriate for age, insight intact, no focal deficits. Tests: , review of old records completed , Discussed surgical options, risks, and possible complications with patient. Assessment/Plan 1. Stage III adenocarcinoma of colon (C18.9: Malignant neoplasm of colon, unspecified) completed chemotherapy, no longer requires port; recommend that patient wait until after CT scans in March; can remove port at time of surveillance colonoscopy under same anesthesia; informed consent obtained; continue to flush port every 6 weeks; call with problems/questions. Follow-up No qualifying data available Problem List/Past Medical History Ongoing Anemia BMI 36.0-36.9,adult Colon neoplasm Epigastric pain Essential hypertension Fatty liver History of alcohol abuse Hyperlipidemia Intestinal malabsorption Iron deficiency anemia Mass of colon Morbid obesity Other pancytopenia Periumbilical abdominal pain Positive occult stool blood test Sleep apnea Stage III adenocarcinoma of colon Historical No qualifying data Procedure/Surgical History Insertion of implantable venous access port (07/05/2024), Right colectomy (06/14/2024), Colonoscopy (05/10/2024), EGD - esophagogastroduodenoscopy (05/10/2024), Colonoscopy (06/03/2018), Arthroplasty of left hip, Arthroplasty of right hip. Medications capecitabine 500 mg Tab, 1500 mg= 3 tab(s), Oral, BID Edarbi, 80 mg, Oral, Daily Allergies No Known Allergies No Known Medication Allergies Social History Alcohol Past. Beer. Daily., 04/23/2024 Substance Abuse Never., 04/23/2024 Tobacco Never (less than 100 in lifetime), Chewing Tabacco Tobacco Use:. Smokeless tobacco user within last 30 days Smokeless Tobacco Use:. Oral, 14 per day. Yes, 12/27/2024 Family History Cancer: Father. Primary malignant neoplasm of rectum: Mother. Immunizations Vaccine Date Status Comments SARS-CoV-2 (COVID-19) mRNA-1273 vaccine 09/19/2020 Recorded 2024-04-17: TPV40 SARS-CoV-2 (COVID-19) mRNA-1273 vaccine 08/22/2020 Recorded 2023- (more content not included)... [facility] Comment on above: Result Comment: Elec tronically Signed By: FLORIDALMA PATEL, Jone Bell\Date and Time Signed: 12/27/24 14:47 EDT 10-24-2024 Instructions Donis Carias MD - 10/24/2024 10:18 AM EDT We discussed your follow-up care after completing chemotherapy for colon cancer: - Your recent CT scan of the chest, abdomen, and pelvis was clean. Future scans will likely be scheduled every 6 months to 1 year, depending on your oncologist's recommendations. - Blood work will be done every 3 months as part of your ongoing surveillance plan. - You need a colonoscopy in May of next year (1 year after your diagnosis). You confirmed you would like to have this done with Dr. Mendez. Please ensure this is scheduled and completed on time. - If the May colonoscopy is normal, the next one will be scheduled in 3 years. If findings are concerning, the frequency may change based on results. We discussed your physical activity and recovery: - There are no physical restrictions at this time. We discussed your overall health: - You are eating well, having regular bowel movements, and feeling good overall. There are no current concerns with your recovery. Follow up with me as needed. If you have any new symptoms or concerns, please contact our office. documented in this encounter [facility] 10-24-2024 History of Present illness Narrative COLORECTAL SURGERY CLINIC NOTE Recording using XYZE software for draft documentation of the visit was discussed with the patient/authorized sales representative meats; all questions welcomed and answered. 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 He underwent evaluation by a social services coordinator, including an echocardiogram, which was reportedly normal. He did not pursue a second opinion regarding the chemotherapy, and he and his care team decided not to complete the final two doses. His last chemotherapy dose was on 09/09. The patient states he is currently eating well and has no concerns regarding his wounds or any bulges at the midline. He denies any issues with bowel movements, stating he is pooping okay and otherwise feels he is doing well. He reports that his most recent CT scan of the chest, abdomen, and pelvis was clean, and his last blood work was also normal. PAST MEDICAL HISTORY Diagnosis Date BMI 38.0-38.9,adult Colon cancer (HCC) HTN (hypertension) PAST SURGICAL HISTORY Procedure Laterality Date COLONSCOPY SCREENING HIGH RISK PAST SURGICAL HISTORY OF Bilateral hip arthroplasty (2018, 2020) PAST SURGICAL HISTORY OF 04/2024 colonoscopy (2019) Current Outpatient Medications Medication Sig Dispense Refill [...] Take 1 capsule by mouth once daily. (Patient not taking: Reported on 10/24/2024) 30 capsule 0 EDARBI 80 mg tab iv contrast [...] in the CT contrast administration guidelines link. (Patient not taking: Reported on 10/24/2024) 1 Each 0 enteric contrast (will be provided with radiology test) For CT CHESTABD/PEL W IVCON Routine order Administer, As Directed One Time Only, via Oral, Rectal, both Oral and Rectal, Enteric Tube, Stoma or Indwelling Catheter, Enteric Contrast as designated per enteric contrast guidelines (Patient not taking: Reported on 10/24/2024) 1 Each 0 No current facility-administered medications for this visit. ALLERGIES No Known Allergies FAMILY HISTORY Problem Relation Age of Onset Cancer Mother Colon Cancer Maternal Grandmother other (bile duct cancer) Maternal Grandmother Social History Tobacco Use Smoking status: Never Passive exposure: Past Smokeless tobacco: Current Types: Chew Vaping Use Vaping status: Never Used Substance Use Topics Alcohol use: Not Currently Drug use: Not Currently Physical Exam: BP 160/91 Pulse 71 Wt 114.7 kg (252 lb 13.9 oz) BMI 36.28 kg/m General Appearance: Well appearing, alert, in no acute distress, well-hydrated, well nourished. Abdomen: soft, non distended, non tender. Incision site well healed. No fascia defect Colonoscopy 06/03/2018 - Dr Hedrick @ [employer] Scan on 05/15/2024 9:54 AM by Be Cloud: [facility]- Operative Report 06/03/18 Colonoscopy 05/10/24 - Dr. Hedrick @ [employer] Scan on 05/16/2024 9:34 AM by Norma Magallanes: [facility] operative note (path pending) [id number] Pathology Scan on 05/22/2024 8:26 AM by Be Cloud: [facility]-Surgical Pathology Report 05/11/24 COLON, Biopsy, Cecum: COLONIC [...] 2.5 View External Labs - Chemistry [ID [id number]] Surveillance CT C A P on 09/26/2024 at [facility] -images uploaded into EPIC -no evidence of recurrence in chest, abdomen, pelvis Scan on 10/06/2024 10:52 AM by Dat Brown: [facility] - CT Scan, 09/26/24 Assessment Assessment and Plan: Piper Rodríguez is a 54 year old man s/p laparoscopic right colectomy on 06/14/2024 for cecal colon cancer with post-op complicated by fascial dehiscence/evisceration requiring take back and abdominal wall closure 06/21/2024. Final Path: T3 N1b. Completed 4 cycles of adjuvant chemo - Surveillance per med/onc - C/scope 1 year in Apr 2025. Patient to schedule with GI at [facility]. RTC prn Medical Decision Making: Data Reviewed: Tests & Documents Reviewed/ordered: Review of prior notes from [facility] Review of prior operative reports Review of Pathology Review of Imaging: CT Abdomen, CT Pelvis, CT Chest Review of Labs: CEA Review of Procedures / Tests: Colonoscopy I have independently interpreted: CT Abdomen, CT Pelvis, CT Chest I have discussed Piper Rodríguez's treatment plan and/or results with patient. Risk of morbidity, mortality and/or complications of treatment plan: yasmeen Carias MD Colorectal Surgery documented in this encounter [facility] 10-24-2024 Note HNO ID: [id number] Author: DONIS CARIAS MD Service: ? Author Type: Physician Type: Progress Notes Filed: 10/24/2024 10:19 Note Text: COLORECTAL SURGERY CLINIC NOTE Recording using XYZE software for draft documentation of the visit was discussed with the patient/authorized sales representative meats; all questions welcomed and answered. 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 He underwent evaluation by a social services coordinator, including an echocardiogram, which was reportedly normal. He did not pursue a second opinion regarding the chemotherapy, and he and his care team decided not to complete the final two doses. His last chemotherapy dose was on 09/09. The patient states he is currently eating well and has no concerns regarding his wounds or any bulges at the midline. He denies any issues with bowel movements, stating he is pooping okay and otherwise feels he is doing well. He reports that his most recent CT scan of the chest, abdomen, and pelvis was clean, and his last blood work was also normal. PAST MEDICAL HISTORY Diagnosis Date BMI 38.0-38.9,adult Colon cancer (HCC) HTN (hypertension) PAST SURGICAL HISTORY Procedure Laterality Date COLONSCOPY SCREENING HIGH RISK PAST SURGICAL HISTORY OF Bilateral hip arthroplasty (2018, 2020) PAST SURGICAL HISTORY OF 04/2024 colonoscopy (2019) Current Outpatient Medications Medication Sig Dispense Refill [...] Take 1 capsule by mouth once daily. (Patient not taking: Reported on 10/24/2024) 30 capsule 0 EDARBI 80 mg tab iv contrast [...] in the CT contrast administration guidelines link. (Patient not taking: Reported on 10/24/2024) 1 Each 0 enteric contrast (will be provided with radiology test) For CT CHESTABD/PEL W IVCON Routine order Administer, As Directed One Time Only, via Oral, Rectal, both Oral and Rectal, Enteric Tube, Stoma or Indwelling Catheter, Enteric Contrast as designated per enteric contrast guidelines (Patient not taking: Reported on 10/24/2024) 1 Each 0 No current facility-administered medications for this visit. ALLERGIES No Known Allergies FAMILY HISTORY Problem Relation Age of Onset Cancer Mother Colon Cancer Maternal Grandmother other (bile duct cancer) Maternal Grandmother Social History Tobacco Use Smoking status: Never Passive exposure: Past Smokeless tobacco: Current Types: Chew Vaping Use Vaping status: Never Used Substance Use Topics Alcohol use: Not Currently Drug use: Not Currently Physical Exam: BP 160/91 Pulse 71 Wt 114.7 kg (252 lb 13.9 oz) BMI 36.28 kg/m? General Appearance: Well appearing, alert, in no acute distress, well-hydrated, well nourished. Abdomen: soft, non distended, non tender. Incision site well healed. No fascia defect Colonoscopy 06/03/2018 - Dr Hedrick @ [employer] Scan on 05/15/2024 9:54 AM by Be Cloud: [facility]- Operative Report 06/03/18 Colonoscopy 05/10/24 - Dr. Hedrick @ [employer] Scan on 05/16/2024 9:34 AM by Norma Magallanes: [facility] operative note (path pending) [id number] Pathology Scan on 05/22/2024 8:26 AM by Be Cloud: [facility]-Surgical Pathology Report 05/11/24 COLON, Biopsy, Cecum: COLONIC TISSUE WITH INVASIVE ADENOCARCINOMA, MODERATELY DIFFERENTIATED, ULCERATION NOTED 2. COLON, Biopsy, Sigmoid: LARGE TUBULAR ADENOMA (>1 CM), NEGATIVE FOR HIGH GRADE DYSPLASIA, AREAS SHOWING CAUTERY ARTIFACT ARE POSITIVE FOR ADENOMATOUS GLANDS 3. COLON, Biopsy, Descending: TU (more content not included)... [facility] 10-09-2024 Note HNO ID: [id number] Author: TORI GANDHI RN Service: ? Author Type: Registered Nurse Type: Progress Notes Filed: 10/09/2024 12:43 Note Text: ---- Summary: [facility] Research Pre-Screening (NRG-GI008) ---- Piper Rodríguez was reviewed for potential clinical trial enrollment on [facility] #[id number] by the [facility] on 10/09/24. Per initial review, patient has disease type Colon cancer, stage IIIB and appears to be not eligible based on > 60 days from surgery and patient has already started treatment. Requesting libertarian notified. No Study tasks were completed as a result of this initial review. АЛЕКСАНДР Caldera, RN Research Nurse Coordinator [facility] 10-09-2024 History of Present illness Narrative Summary: [facility] Research Pre-Screening (NRG-GI008) Piper Rodríguez was reviewed for potential clinical trial enrollment on [facility] #[id number] by the [facility] on 10/09/24. Per initial review, patient has disease type Colon cancer, stage IIIB and appears to be not eligible based on > 60 days from surgery and patient has already started treatment. Requesting libertarian notified. No Study tasks were completed as a result of this initial review. АЛЕКСАНДР Caldera, RN Research Nurse Coordinator documented in this encounter [facility] 09-27-2024 Note Cardiac Electrophysi ology Consultation Reason for Consult: Consideration of cardiac monitoring in the setting of chemotherapy/oxaliplatin Referring Gasket Former/PCP: No ref. provider found HPI: Piper is a very pleasant 54-year-old gentleman who has a history of hypertension, cecal carcinoma. He was recently started on oxaliplatin and then developed delayed sinus bradycardia which is a rather uncommon adverse conduction side effect of oxaliplatin related to chemotherapy. Based on the EKG, he has sinus bradycardia without any evidence of AV conduction disease he also denies any syncope or presyncope or any prior pre-existing conduction abnormalities. I also had a conversation with his oncologist with planning for a relatively prolonged oxaliplatin chemotherapy to prevent and diminish the chances of further recurrence of cecal carcinoma and therefore sought consultation with me in regard to the cardiac electrophysiological adverse effect of the chemotherapy Electrophysiology History: Sinus bradycardia No past medical history on file. No past surgical history on file. Current Outpatient Medications Medication Sig Dispense Refill Edarbi 80 mg tablet Take 1 tablet by mouth in the morning. lactobacillus (Culturelle) 10 billion cell capsule Take 1 capsule by mouth in the morning. methocarbamol (Robaxin) 500 mg tablet Take 500 mg by mouth 3 times a day. ondansetron (Zofran) 8 mg tablet Take 8 mg by mouth every 8 (eight) hours if needed. prochlorperazine (Compazine) 10 mg tablet Take 10 mg by mouth every 6 (six) hours if needed. No current facility-administered medications for this visit. Physical Examination: BP 124/60 Pulse 75 Ht 1.778 m (5' 10 ) Wt 112 kg (248 lb) SpO2 98% BMI 35.58 kg/m??? Gen: No acute distress Neck: No LAD, No JVD elevation CVS: S1, S2 normal, no rubs, no murmurs Pulm: CTABL Abdomen: NTND Neuro: AAO x 3 Extremity: No edema Psych: Mood and affect is normal .labs No results found for: WBC , HGB , HCT , MCV , PLT No results found for: GLUCOSE , CALCIUM , NA , K , CO2 , CL , BUN , CREATININE EKG: No results found for this or any previous visit (from the past 4464 hour(s)). I personally reviewed this EKG and assessed the findings myself No echocardiogram results found for the past 12 months No echocardiogram results found for the past 14 days I have personally reviewed the echocardiogram images myself Assessment and Plan: Piper is a very pleasant 54-year-old unfortunate gentleman with cecal carcinoma who was on oxaliplatin and then developed delayed sinus bradycardia. I noticed that he does not have any other conduction or arrhythmic abnormalities that being said it is also quite uncommon for oxaliplatin to lead to sinus bradycardia. Given the uncommon side effects and unexplained course and further prognosis of sinus bradycardia coupled with the fact that he would require long-term oxaliplatin therapy, I then discussed that it would be best for him to consider extended monitoring with a loop recorder so that we can further monitor him for adverse effects from an EP perspective due to oxaliplatin. I also discussed that even though he is young there is a less than average risk of him requiring a pacemaker implantation if his conduction disease were to worsen. I also specifically discussed that the role of pacemaker is to treat conduction abnormalities and the role of ICD is to prevent ventricular arrhythmic related and none of these would have any positive impact on PEA occurrence. As always, it is a pleasure to partake in the shared care of our patients. Joe Jones MD, ScM, Msc Cardiac Electrophysiology Email: [email or web address] 07-07-2024 Note HNO ID: [id number] Author: MAYLIN CONTE APRN.GALLERY DIRECTOR Service: ? Author Type: Nurse Practitioner Type: Progress Notes Filed: 07/07/2024 09:33 Note Text: COLORECTAL SURGERY July 07, 2024 Piper Rodríguez 54 year old This consult was requested by Dr. Carias and my final recommendations will be communicated to the requesting health care provider by way of the shared medical record for internal providers or letter via the [employer] for external providers. Chief Complaint: post-op visit, staple removal History of Present Illness: Piper Rodríguez is a 54 year old male s/p a laparoscopic right colectomy on 06/14/[address] Carias for colon cancer and subsequent abdominal wall exploration and closure on 06/21/2024 for fascial dehiscence with evisceration. He presents today for his post-op and staple removal. He has been doing well the past several weeks at home. He denies any new or worsening pain, no longer taking pain medication for his abdomen. He recently had his port placed and his neck is sore. Denies any fevers or chills, no nausea, tolerating a diet GI soft. We discussed diet advancement today and what to watch for. Bowel movements are soft brown and much easier now than he was experiencing preop. All stools are nonbloody. He denies any incisional concerns aside from itching. No bleeding pain or discharge. We discussed lifting and activity restrictions as well as further follow-up necessary. PAST MEDICAL HISTORY Diagnosis Date BMI 38.0-38.9,adult Colon cancer (HCC) HTN (hypertension) PAST SURGICAL HISTORY Procedure Laterality Date COLONSCOPY SCREENING HIGH RISK PAST SURGICAL HISTORY OF Bilateral hip arthroplasty (2018, 2020) PAST SURGICAL HISTORY OF 04/2024 colonoscopy (2019) Current Outpatient Medications Medication Sig Dispense Refill enoxaparin (LOVENOX) 40 mg/0.4 mL Inject 0.4 mL subcutaneously every 24 hours for 21 days. 8.4 mL 0 EDARBI 80 mg tab prochlorperazine (COMPAZINE) 10 mg tablet Take 1 tablet by mouth every 6 hours as needed. (Patient not taking: Reported on 07/07/2024) 100 tablet 2 ondansetron (ZOFRAN) 8 mg tablet Take 1 tablet by mouth every 8 hours as needed for nausea/vomiting. (Patient not taking: Reported on 07/07/2024) 90 tablet 2 methocarbamol (ROBAXIN) 500 mg tablet Take 1 tablet by mouth three times a day. (Patient not taking: Reported on 07/07/2024) 20 tablet 0 acetaminophen (TYLENOL) 500 mg tablet Take 2 tablets by mouth every 6 hours. (Patient not taking: Reported on 06/28/2024) 50 tablet 0 lactobacillus rhamnosus (CULTURELLE) 10 billion cell capsule Take 1 capsule by mouth once daily. (Patient not taking: Reported on 07/07/2024) 30 capsule 0 iv contrast (will be provided with [...] in the CT contrast administration guidelines link. (Patient not taking: Reported on 07/07/2024) 1 Each 0 enteric contrast (will be provided with radiology test) For CT CHESTABD/PEL W IVCON Routine order Administer, As Directed One Time Only, via Oral, Rectal, both Oral and Rectal, Enteric Tube, Stoma or Indwelling Catheter, Enteric Contrast as designated per enteric contrast guidelines (Patient not taking: Reported on 07/07/2024) 1 Each 0 No current facility-administered medications for this visit. ALLERGIES No Known Allergies FAMILY HISTORY Problem Relation Age of Onset Cancer Mother Colon Cancer Maternal Grandmother other (bile duct cancer) Maternal Grandmother Social History Tobacco Use Smoking status: Never Smokeless tobacco: Current Types: Chew Vaping Use Vaping status: Never Used Substance Use Topics Alcohol use: Not Currently Drug use: Not Currently Physical Exam: BP 134/77 Pulse 88 Temp 36.6 ?C (97.9 ?F) (Temporal) Ht 177.8 cm (5' 10 ) Wt 113.4 kg (250 lb) SpO2 99% BMI 35.87 kg/m? General Appearance: Well appearing, alert, in no acute distress, well-hydrated, well nourished. Abdomen: Soft, nondistended, nontender. All shola removed from umbilicus and Steri-Strips applied. Incision was well-healed and approximated. Assessment Assessment and Plan: Piper Rodríguez is a 54 year old male s/p a laparoscopic right colectomy on 06/14/2024 and subsequent abdominal wall exploration and closure on 06/21/2024. -doing well post-op, expected recovery course. -tumor board discussion regarding pathology results. -OK to slowly advance diet as tolerated. -continue lifting and activity restrictions for 6 weeks post-op. -complete lovenox SQ injections as prescribed. -continue probiotics fo (more content not included)... [facility] 07-07-2024 History of Present illness Narrative COLORECTAL SURGERY July 07, 2024 Piper Rodríguez 54 year old This consult was requested by Dr. Carias and my final recommendations will be communicated to the requesting health care provider by way of the shared medical record for internal providers or letter via the [employer] for external providers. Chief Complaint: post-op visit, staple removal History of Present Illness: Piper Rodríguez is a 54 year old male s/p a laparoscopic right colectomy on 06/14/[address] Carias for colon cancer and subsequent abdominal wall exploration and closure on 06/21/2024 for fascial dehiscence with evisceration. He presents today for his post-op and staple removal. He has been doing well the past several weeks at home. He denies any new or worsening pain, no longer taking pain medication for his abdomen. He recently had his port placed and his neck is sore. Denies any fevers or chills, no nausea, tolerating a diet GI soft. We discussed diet advancement today and what to watch for. Bowel movements are soft brown and much easier now than he was experiencing preop. All stools are nonbloody. He denies any incisional concerns aside from itching. No bleeding pain or discharge. We discussed lifting and activity restrictions as well as further follow-up necessary. PAST MEDICAL HISTORY Diagnosis Date BMI 38.0-38.9,adult Colon cancer (HCC) HTN (hypertension) PAST SURGICAL HISTORY Procedure Laterality Date COLONSCOPY SCREENING HIGH RISK PAST SURGICAL HISTORY OF Bilateral hip arthroplasty (2018, 2020) PAST SURGICAL HISTORY OF 04/2024 colonoscopy (2019) Current Outpatient Medications Medication Sig Dispense Refill enoxaparin (LOVENOX) 40 mg/0.4 mL Inject 0.4 mL subcutaneously every 24 hours for 21 days. 8.4 mL 0 EDARBI 80 mg tab prochlorperazine (COMPAZINE) 10 mg tablet Take 1 tablet by mouth every 6 hours as needed. (Patient not taking: Reported on 07/07/2024) 100 tablet 2 ondansetron (ZOFRAN) 8 mg tablet Take 1 tablet by mouth every 8 hours as needed for nausea/vomiting. (Patient not taking: Reported on 07/07/2024) 90 tablet 2 methocarbamol (ROBAXIN) 500 mg tablet Take 1 tablet by mouth three times a day. (Patient not taking: Reported on 07/07/2024) 20 tablet 0 acetaminophen (TYLENOL) 500 mg tablet Take 2 tablets by mouth every 6 hours. (Patient not taking: Reported on 06/28/2024) 50 tablet 0 lactobacillus rhamnosus (CULTURELLE) 10 billion cell capsule Take 1 capsule by mouth once daily. (Patient not taking: Reported on 07/07/2024) 30 capsule 0 iv contrast (will be provided with [...] in the CT contrast administration guidelines link. (Patient not taking: Reported on 07/07/2024) 1 Each 0 enteric contrast (will be provided with radiology test) For CT CHESTABD/PEL W IVCON Routine order Administer, As Directed One Time Only, via Oral, Rectal, both Oral and Rectal, Enteric Tube, Stoma or Indwelling Catheter, Enteric Contrast as designated per enteric contrast guidelines (Patient not taking: Reported on 07/07/2024) 1 Each 0 No current facility-administered medications for this visit. ALLERGIES No Known Allergies FAMILY HISTORY Problem Relation Age of Onset Cancer Mother Colon Cancer Maternal Grandmother other (bile duct cancer) Maternal Grandmother Social History Tobacco Use Smoking status: Never Smokeless tobacco: Current Types: Chew Vaping Use Vaping status: Never Used Substance Use Topics Alcohol use: Not Currently Drug use: Not Currently Physical Exam: BP 134/77 Pulse 88 Temp 36.6 C (97.9 F) (Temporal) Ht 177.8 cm (5' 10 ) Wt 113.4 kg (250 lb) SpO2 99% BMI 35.87 kg/m General Appearance: Well appearing, alert, in no acute distress, well-hydrated, well nourished. Abdomen: Soft, nondistended, nontender. All shola removed from umbilicus and Steri-Strips applied. Incision was well-healed and approximated. Assessment Assessment and Plan: Piper Rodríguez is a 54 year old male s/p a laparoscopic right colectomy on 06/14/2024 and subsequent abdominal wall exploration and closure on 06/21/2024. -doing well post-op, expected recovery course. -tumor board discussion regarding pathology results. -OK to slowly advance diet as tolerated. -continue lifting and activity restrictions for 6 weeks post-op. -complete lovenox SQ injections as prescribed. -continue probiotics for 1 month post-op. -further follow up with Dr. Carias in 3 months, scheduled for the patient today. Medical Decision Making: Data Reviewed: Tests & Documents Reviewed/ordered: Review of prior notes from hospitalizations Review of prior operative reports Review of Pathology I have independently interpreted: n/a I have discussed Piper Rodríguez's treatment plan and/or results with the patient, Dr. Carias. Risk of morbidity, mortality and/or complications of treatment plan: johann Conte APRN.CNP Colorectal Surgery What is the reason for your visit today? Post op follow up for staple removal Who is your referring physician? Are you having poor oral intake? NO Have you had unintentional weight loss of 15 lbs/7 Kg in the last 3-6 months? YES Bowels: regular Wound: clean & dry Temperature: No Drains: No documented in this encounter [facility] 07-07-2024 Note HNO ID: [id number] Author: VARINDER PHILLIPS MA Service: ? Author Type: Network Security Officer Type: Progress Notes Filed: 07/07/2024 09:33 Note Text: What is the reason for your visit today? Post op follow up for staple removal Who is your referring physician? Are you having poor oral intake? NO Have you had unintentional weight loss of 15 lbs/7 Kg in the last 3-6 months? YES Bowels: regular Wound: clean AND dry Temperature: No Drains: No [facility] 06-30-2024 Telephone encounter Note All appointments on 07/12/24 have been canceled Maria Luisa Montes PSS [facility] 06-30-2024 Miscellaneous Notes All appointments on 07/12/24 have been canceled Maria Luisa Montes PSS Voicemail received from pt's stating pt will be going to [place] to see their oncologist, and doesn't wish to follow up here. Please cancel appointments on 07/12. Call placed to to further assess. Message left requesting her to call our office back. Thanks Chelle Willis RN documented in this encounter [facility] 06-30-2024 Telephone encounter Note Voicemail received from pt's stating pt will be going to [place] to see their oncologist, and doesn't wish to follow up here. Please cancel appointments on 07/12. Call placed to to further assess. Message left requesting her to call our office back. Thanks Chelle Willis RN [facility] Work Phone: 06-29-2024 Telephone encounter Note Pt will be in for education tomorrow. Please sign pending orders. Thanks Chelle Willis RN [facility] 06-29-2024 Miscellaneous Notes Pt will be in for education tomorrow. Please sign pending orders. Thanks Chelle Willis RN documented in this encounter [facility] 06-29-2024 Note HNO ID: [id number] Author: CAMRYN BEAULIEU, Research Coordinator Service: ? Author Type: Research Type: Progress Notes Filed: 06/29/2024 08:26 Note Text: ---- Summary: [facility] Research Pre-Screening (IRB: [id number]) ---- Piper Rodríguez was reviewed for potential clinical trial enrollment on [facility] #[id number] by the [facility] on 06/29/24. Per initial review, patient has disease type Stage III CRC and appears to be preliminarily eligible and further testing/procedures required to determine final eligibility. Requesting libertarian notified. No Study tasks were completed as a result of this initial review. Camryn Beaulieu, Research Coordinator [facility] 06-29-2024 History of Present illness Narrative Summary: [facility] Research Pre-Screening (IRB: [id number]) Piper Rodríguez was reviewed for potential clinical trial enrollment on [facility] #[id number] by the [facility] group on 06/29/24. Per initial review, patient has disease type Stage III CRC and appears to be preliminarily eligible and further testing/procedures required to determine final eligibility. Requesting libertarian notified. No Study tasks were completed as a result of this initial review. Camryn Beaulieu Research Coordinator documented in this encounter [facility] 06-29-2024 Note HNO ID: [id number] Author: MAYLIN CONTE APRN.SURESH Service: ? Author Type: Nurse Practitioner Type: Progress Notes Filed: 06/29/2024 08:29 Note Text: [facility] Multidisciplinary GI Tumor Board Primary Disease: [...] negative for invasive carcinoma Clinical Pathologic Stage: [id number] stage IIIB Recommendations: MMR studies pending. Referral [...] and alternatives to the various treatment options [facility] 06-28-2024 Note General Surgery Offi ce/Clinic Note Chief Complaint consultation for port insertion HPI Staff 54 year old male presents on consultation from Dr. Esteves for port placement; now seeing Dr. Bragg at [facility]. Patient with metastatic colon adenocarcinoma. Right colectomy completed 06/14/24. History of Present Illness 54 yo male recently diagnosed with cecal adenocarcinoma, s/p LS right colectomy at [facility] 06/14/24, stage IIIb adenocarcinoma; had wound dehiscence requiring fascial closure 06/21/24; now seeing Dr. Bragg at [facility]; referred for port placement; no previous port [...] (C18.9: Malignant neoplasm of colon, unspecified) plan [id number]-[id number] insertion under anesthesia, informed consent obtained. Ancef [...] (COVID-19) mRNA-1273 vaccine 08/22/2020 Recorded 2024-04-17: TPV40 [facility] Comment on above: Result Comment: Elec tronically Signed By: FLORIDALMA PATEL, Jone Bell\Date and Time Signed: 06/28/24 16:11 EST 06-28-2024 Note Addended by: JOSEPH CALHOUN on: 06/28/2024 11:30 AM Modules accepted: Orders [facility] 06-28-2024 Miscellaneous Notes Addended by: JOSEPH BRAGG on: 06/28/2024 11:30 AM Modules accepted: Orders documented in this encounter [facility] 06-28-2024 Instructions Joseph Bragg MD - 06/28/2024 11:13 AM EST Ordered port placement Chemo teach for FOLFOX F/u in 2 weeks documented in this encounter [facility] 06-28-2024 History of Present illness Narrative Images from the original note were not included. PATIENT NAME: Piper Rodríguez CLINIC NO.: [id number] ATTENDING PHYSICIAN: Joseph Bragg MD DATE OF SERVICE: June 28, [address] Donis Carias [address] [facility] [address] thank you for referring Piper Rodríguez for [...] pT3 pN1b. MSI Pending Works in a [employer]. Grand mother has colon cancer. No smoking. [...] Range Status 06/23/2024 12.7 % Final Abs [place] Date Value Ref Range Status 06/23/2024 0.84 [...] in [address] Donis Carias [address] [facility] [address] thank you for allowing me to participate in Piper Rodríguez care, if there are any questions or concerns please do not hesitate to contact me at the number below. I spent a total of 60 minutes on the date of the service which included preparing to see the patient, obuz-nd-[id number] patient care, completing clinical documentation, obtaining and/or reviewing separately obtained history, performing a medically appropriate examination, counseling and educating the patient/family/caregiver, ordering medications, tests, or procedures, communicating with other HCPs (not separately reported), independently interpreting results (not separately reported), communicating results to the patient/family/caregiver, and care coordination (not separately reported). Joseph Bragg MD. Hematology/Medical Oncology [place] [phone] CC: documented in this encounter [facility] 06-28-2024 Note HNO ID: [id number] Author: JOSEPH BRAGG MD Service: ? Author Type: Physician Type: Progress Notes Filed: 06/28/2024 11:29 Note Text: PATIENT NAME: Piper Rodríguez [facility] NO.: [id number] ATTENDING PHYSICIAN: Joseph Bragg MD DATE OF SERVICE: June 28, [address] Donis Carias [address] [facility] [address] thank you for referring Piper Rodríguez for [...] palpable breast johnny (more content not included)... [facility] 06-23-2024 Note HNO ID: [id number] Author: ELAYNE GONZALEZ LSW Service: Care Management Author Type: Reliability Manager Type: Care Mgt Initial Assessment Filed: 06/23/2024 10:12 Note Text: ---- Summary: High Risk Readmission ---- CARE MANAGEMENT: ASSESSMENT AND DISCHARGE PLAN SERVICE DATE: June 23, 2024 SERVICE TIME: 9:30 PCP: Gen Peña MD Primary Contact: Extended Emergency Contact Information Primary Emergency Contact: Lisa Rodríguez Address: [address] [place] [address] Mobile Relation: Spouse Preferred language: FAROESE Retort Engineer needed? No Admission Status: Inpatient Insurance Provider: MMO SUPERMED PPO Discharge Planning requested by: Per Department Practice Potential Transition Plans No Services Indicated Advance Directives Current Advance Directive: None Length Control Tester Attempted to Assist with AD Completion: Yes Action: Education Provided Current Living Arrangements and Support Lives with: Spouse/significant other Type of Residence: Private Residence (House) Support: Spouse/significant other How do you manage to accomplish the following: Independent: Ambulation;Transportation to appointments/community;Bathe/Shower;Dr ess;Meals/Meal Prep;Going to the bathroom;Medication Management Current Services/Equipment Current Post-Acute Service(s): None Discharge Planning Patient Goal(s): General wellness Hermitage of Choice Explained: Hermitage of Choice Given: No Reason Not Given: [...] : No HCPOA paperwok on file within [employer] and verified to be current as of date/time of this note Legal Next of Kin Hierarchy per [place] Revised Code: Legal Spouse Lisa [phone] Majority of Adult Children (consensus if possible) Parents Majority of Adult Siblings (consensus if possible) Nearest Blood Relative REID Prabhakar June 23, 2024 HIGH RISK READMISSION NOTE: HAS PATIENT BEEN READMITTED WITHIN THE PAST 7 DAYS?: yes 30-DAY READMISSION RISK (%) of 40 OR ABOVE?: no READMISSION SCORE: unknown SDKY QUESTIONS REVIEWED WITH PATIENT?: yes DATE OF [...] DATE: June 23, 2024 TIME: 10:08 AM [facility] 06-23-2024 Note HNO ID: [id number] Author: DONIS CARIAS MD Service: Colorectal Author Type: Physician Type: Progress Notes Filed: 06/23/2024 13:40 Note Text: Documentation Query Please specify a diagnosis associated with the Clinical Indicators for this patient Obesity class 2 This document will become part of the patient's medical record. [facility] 06-22-2024 Note HNO ID: [id number] Author: MARY WORRELL, LINDSAY Service: Nursing Author Type: Registered Nurse Type: Nursing Progress Note Filed: 06/22/2024 15:45 Note Text: 1545 report called to AR. [facility] 06-22-2024 Note HNO ID: [id number] Author: LASHONDA DELGADO MD Service: Colorectal Author Type: Resident Type: Progress Notes Filed: 06/22/2024 08:11 Note Text: COLORECTAL SURGERY PROGRESS NOTE Piper Rodríguez [id number] Patient Active Hospital Problem List: Perioperative dehiscence [...] and Airways Line Duration Peripheral 06/21/24 [facility] Short Left Forearm 20 Gauge <1 [...] Delgado MD General Surgery, PGY2 Please contact [phone] during the days for any questions. For nights and weekends, please contact [phone]. [facility] 06-21-2024 Note HNO ID: [id number] Author: JULIOCESAR ENRIQUE APRN.TAX EXAMINING TECHNICIAN Service: Anesthesiology Author Type: Nurse Events Assistant Type: Anesthesia Procedure Notes Filed: 06/21/2024 16:11 Note Text: ANESTHESIOLOGY PROCEDURE NOTE Airway General Information Procedure Start Time/Medication Administration: 06/21/2024 3:58 PM Procedure End Time: 06/21/2024 3:58 PM Patient location during procedure: OR Timeout Performed Pre-procedure: timeout performed Consent Obtained: Yes 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, care merchandise flow team member and patient Staffing TAX EXAMINING TECHNICIAN: Juliocesar Enrique APRN.TAX EXAMINING TECHNICIAN Performed by: TAX EXAMINING TECHNICIAN Indications and Patient Condition Indications for airway management: anesthesia and airway protection Preoxygenated: yes anesthesia circuit Patient position: sniffing Method: rapid sequence Cricoid Pressure: Yes Manual In-Line Stabilization: No Difficult mask ventilation: n/a. Final Airway Details Final airway type: endotracheal airway Final Endotracheal Airway: ETT Cuffed: yes Successful intubation technique: video laryngoscopy Devices used: Pairy Endotracheal tube insertion site: oral Blade: Zeenat [...] no Airway not difficult SIGNATURE: Juliocesar Enrique APRN.CRNA PATIENT NAME: Piper Rodríguez DATE: June 21, 2024 TIME: 4:10 PM CSN: [id number] [facility] 06-21-2024 Telephone encounter Note Patient called stating [...] for his appointment tomorrow vs going to [place] [facility]. Ultimately, he thinks he will go to [facility] [facility]. [facility] 06-21-2024 Miscellaneous Notes Patient called stating [...] for his appointment tomorrow vs going to [place] [facility]. Ultimately, he thinks he will go to [place] [facility]. documented in this encounter [facility] 06-20-2024 Telephone encounter Note Returned call. Spoke with his . She said they went to their local ED. It was his bigger incision that opened. The ED doctor was asking them for Dr. Carias's contact information so he can communicate with her. Provided info to physician [facility] 06-20-2024 Miscellaneous Notes Returned call. Spoke [...] they should go to local ER CB# [phone] documented in this encounter [facility] 06-20-2024 Telephone encounter Note Patient calling concerned about surgical incision. She states it has opened up. Asking to speak to nurse to find out if they should go to local ER CB# [phone] [facility] 06-19-2024 Telephone encounter Note Returned call. He would like to be able to return to the office for a few hours every other day. He asked for a note to allow him to do this. His job does not require any physical activity. Note sent through My Chart. [facility] 06-19-2024 Miscellaneous Notes Returned call. He [...] what he can and cannot do CB# [phone] documented in this encounter [facility] 06-19-2024 Telephone encounter Note Patient had surgery on 06/14/24. He is asking to speak to a nurse about his restrictions and what he can and cannot do CB# [phone] [facility] 06-16-2024 Note HNO ID: [id number] Author: DONIS CARIAS MD Service: Colorectal Author [...] become part of the patient's medical record. [facility] 06-16-2024 Note HNO ID: [id number] Author: DAVON WATSON MD Service: Colorectal Author [...] likely home today if labs improved. Davon Waston MD PGY-6 Colorectal Surgery Resident Blue Team Pager: [phone] General Surgery Colorectal Surgery On-Call Pager: [phone](Weekends, Weekdays 6PM-6AM)` SUBJECTIVE: No acute issues overnight. [...] Date 06/15/24 07 - 06/16/24 0659 06/16/24 07 - 06/17/24 0659 Shift [id number] [id number] 2558-2233 24 Hour Total [id number] 2211-4991 7377-2565 24 Hour Total INTAKE Shift Total OUTPUT [...] 1.25* BUN 19 GLUC 105* CA 8.9 [facility] 06-15-2024 Note HNO ID: [id number] Author: GELY AKINS RN Service: Care Management Author Type: Registered Nurse Type: Care Mgt Initial Assessment Filed: 06/15/2024 11:22 Note Text: CARE MANAGEMENT: ASSESSMENT AND DISCHARGE PLAN SERVICE DATE: June 15, 2024 SERVICE TIME: 11:00am PCP: Gen Peña MD Primary Contact: Extended Emergency Contact Information Primary Emergency Contact: Lisa Rodríguez Address: [address] [place] [id number] [place] [address] OF [facility] Mobile Relation: Spouse Preferred language: FAROESE Retort Engineer needed? No Admission Status: Inpatient Insurance Provider: MMO SUPERMED PPO Discharge Planning requested by: Per Department Practice Potential Transition Plans Home Advance Directives Current Advance Directive: None Length Control Tester Attempted to Assist with AD Completion: Yes [...] home, Independent living, Be able to drive Hermitage of Choice Explained: Hermitage of Choice Given: No Reason Not Given: [...] soon. Pt lives with spouse. 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 Pt reports he has good support system. Denies needs. No skilled needs identified. Spouse will transport home at discharge. CM remains available if needs arise. SIGNATURE: Gely Akins RN PATIENT NAME: Piper Rodríguez DATE: June 15, 2024 TIME: 11:20 AM [facility] 06-15-2024 Note HNO ID: [id number] Author: LASHONDA DELGADO MD Service: Colorectal Author [...] 06/15/2024 ---- COLORECTAL SURGERY PROGRESS NOTE Piper Marychuy Anne [id number] Patient Active Hospital Problem List: Malignant neoplasm [...] and Airways Line Duration Peripheral 06/14/24 08[facility] Left Antecubital 20 Gauge 1 day [...] Delgado MD General Surgery, PGY2 Please contact [phone] during the days for any questions. For nights and weekends, please contact [phone]. [facility] 06-14-2024 Note HNO ID: [id number] Author: ANNABEL THACKER APRN.TAX EXAMINING TECHNICIAN Service: Nursing Author Type: Nurse Events Assistant Type: Anesthesia Procedure Notes Filed: 06/14/2024 09:22 Note Text: ANESTHESIOLOGY PROCEDURE NOTE PIV General Information Procedure Start Time/Medication Administration: 06/14/2024 9:02 AM Procedure End Time: 06/14/2024 9:02 AM Patient Location: OR Staffing TAX EXAMINING TECHNICIAN: Annabel Thacker APRN.TAX EXAMINING TECHNICIAN Performed by: TAX EXAMINING TECHNICIAN Preparation Sterility Preparation: hand hygiene performed prior to procedure, surgical cap used, mask used, skin prep agent completely dried prior to procedure Site Prep: chlorhexidine Procedure Details Indication: need for IV access Needle Size/Type: 20 gauge angiocath Orientation: Right Location: Hand Imaging Guidance Used: No SIGNATURE: Annabel Thacker APRN.TAX EXAMINING TECHNICIAN PATIENT NAME: Piper Rodríguez DATE: June 14, 2024 TIME: 9:20 AM CSN: [id number] [facility] 06-14-2024 Note HNO ID: [id number] Author: ANNABEL THACKER APRN.TAX EXAMINING TECHNICIAN Service: Nursing Author Type: Nurse Events Assistant Type: Anesthesia Procedure Notes Filed: 06/14/2024 09:20 Note Text: ANESTHESIOLOGY PROCEDURE NOTE Airway General Information Procedure Start Time/Medication Administration: 06/14/2024 8:59 AM Procedure End Time: 06/14/2024 8:59 AM Patient location during procedure: OR 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, care merchandise flow team member and patient Staffing Anesthesiologist: Ila Mortensen MD TAX EXAMINING TECHNICIAN: Annabel Thacker APRN.TAX EXAMINING TECHNICIAN Performed by: TAX EXAMINING TECHNICIAN Indications and Patient Condition Indications for airway [...] intubation: no Airway not difficult SIGNATURE: Annabel Tahcker APRN.TAX EXAMINING TECHNICIAN PATIENT NAME: Piper Rodríguez DATE: June 14, 2024 TIME: 9:19 AM CSN: [id number] [facility] 06-08-2024 Instructions Aubrey Baer PA-C - 06/08/2024 8:55 AM EST PATIENT PREOPERATIVE INSTRUCTIONS Donis Carias MD has scheduled you for your procedure at this surgery center: [facility]: [phone] [place] [address]. Please check in on the 1st floor [...] Procedures: - YOU MUST HAVE A RESPONSIBLE BEVELER TAKE YOU HOME. A SPINDLE REPAIRER OR SALES AGENT CANNOT BE MADE A RESPONSIBLE BEVELER. - We recommend that a responsible person [...] Advance Directive, please fax a copy to [phone] or email to for it to be [...] chart that day documented in this encounter [facility] 06-08-2024 History and physical note HISTORY [...] 5 (+SHERIE, unable to tolerate CPAP ) [id number] Score: Age: <65 Sex: male CHF history: No Hypertension history: Yes Stroke/TIA/thromboembolism history: No Vascular disease history: No Diabetes history: No [id number] Score: 1 ARISCAT Score: Age: 51-80 Preoperative [...] fevers. Neuro: No history of TIA's, stroke, BYPRODUCTS OPERATOR tumor, impaired sensorium, hemiplegia, paraplegia or quadraplegia. [...] Piper Rodríguez DATE: 06/08/2024 TIME: 9:18 AM [facility] 06-08-2024 History and physical note HISTORY [...] 5 (+SHERIE, unable to tolerate CPAP ) [id number] Score: Age: <65 Sex: male CHF history: No Hypertension history: Yes Stroke/TIA/thromboembolism history: No Vascular disease history: No Diabetes history: No [id number] Score: 1 ARISCAT Score: Age: 51-80 Preoperative [...] fevers. Neuro: No history of TIA's, stroke, BYPRODUCTS OPERATOR tumor, impaired sensorium, hemiplegia, paraplegia or quadraplegia. [...] TIME: 9:18 AM documented in this encounter [facility] 06-05-[address] CAP reviewed with patient- no mets and will proceed with surgery as scheduled. Advised lifestyle changes for fatty liver and to follow up with PCP [facility] 06-05-[address] CAP reviewed with patient- no mets and will proceed with surgery as scheduled. Advised lifestyle changes for fatty liver and to follow up with PCP documented in this encounter [facility] 06-02-2024 History of Present illness Narrative [...] PATIENT PRESENTS WITH AN IMPLANTABLE OR ATTACHED SCHOOL CROSSING GUARD: No RADIOLOGY DEPARTMENT: CT; Exam(s) Completed: Chest Abdomen Pelvis PERIPHERAL IV DATA: Site assessment: Clean,Dry and Intact, Site disposition Discontinued SIGNED BY: MILADY Joiner) June 02, 2024 9:36 AM documented in this encounter [facility] 06-02-2024 Note HNO ID: [id number] Author: EVENS NELSON RT (R) Service: Radiology Author Type: Technologist Type: Progress [...] PATIENT PRESENTS WITH AN IMPLANTABLE OR ATTACHED SCHOOL CROSSING GUARD: No RADIOLOGY DEPARTMENT: CT; Exam(s) Completed: Chest Abdomen Pelvis PERIPHERAL IV DATA: Site assessment: Clean,Dry and Intact, Site disposition Discontinued SIGNED BY: MILADY Joiner) June 02, 2024 9:36 AM [facility] 06-02-2024 Nurse Note Radiology Service Progress [...] DATE: June 02, 2024 TIME: 8:53 AM [facility] 06-02-2024 Nurse Note Radiology Service Progress [...] TIME: 8:53 AM documented in this encounter [facility] 06-01-2024 Telephone encounter Note Spoke with patient. He was under the impression he could get his CT done in [place] and could have the images sent to Dr. Carias. We had a long discussion about the process to make that happen and my concerns that it would not be done in time to continue with his surgery on 06/14. He was agreeable to reschedule his CT at [facility] on 06/02/24. He will get his lab work done tomorrow prior to his CT. [facility] 06-01-2024 Miscellaneous Notes Spoke with patient. He was under the impression he could get his CT done in [place] and could have the images sent to Dr. Carias. We had a long discussion about the process to make that happen and my concerns that it would not be done in time to continue with his surgery on 06/14. He was agreeable to reschedule his CT at [place] on 06/02/24. He will get his lab work done tomorrow prior to his CT. 06/01 Patient called, stated that he wanted to cancel CT that was for 06/02 due to distance to appointment. Stated that will go to [facility] to [facility] CT done. Was wondering if able to go to [place] for CT? documented in this encounter [facility] 06-01-2024 Telephone encounter Note 06/01 Patient called, stated that he wanted to cancel CT that was for 06/02 due to distance to appointment. Stated that will go to [facility]. Was wondering if able to go to [place] for CT? [facility] 05-25-2024 History of Present illness Narrative COLORECTAL SURGERY CLINIC NOTE May 25, 2024 Piper Rodríguez 54 year old This consult was requested by Dr. Hedrick and my final recommendations will be communicated to the requesting health care provider by way of the shared medical record for internal providers or letter via the [employer] for external providers. Chief Complaint: [...] last colonoscopy prior to this was in 2018 with 2 polyps removed. Denies family history [...] mass Colonoscopy 05/10/24 - Dr. Hedrick @ [employer] Scan on 05/16/2024 9:34 AM by Norma Magallanes: Seth Hamilton operative note (path pending) [id number] Pathology Scan on 05/22/2024 8:26 AM by Be Cloud: [facility] Pathology Report 05/11/24 COLON, Biopsy, Cecum: COLONIC TISSUE WITH INVASIVE ADENOCARCINOMA, MODERATELY DIFFERENTIATED, ULCERATION NOTED 2. COLON, Biopsy, Sigmoid: LARGE TUBULAR ADENOMA (>1 CM), NEGATIVE FOR HIGH GRADE DYSPLASIA, AREAS SHOWING CAUTERY ARTIFACT ARE POSITIVE FOR ADENOMATOUS GLANDS 3. COLON, Biopsy, Descending: TUBULAR ADENOMA. NEGATIVE FOR HIGH GRADE DYSPLASIA Colonoscopy 06/03/2018 - Dr Hedrick @ [employer] Scan on 05/15/2024 9:54 AM by Be [...] MD Colorectal Surgery documented in this encounter [facility] 05-25-2024 Note HNO ID: [id number] Author: DONIS CARIAS MD Service: ? Author Type: Physician Type: Progress Notes Filed: 05/25/2024 12:48 Note Text: COLORECTAL SURGERY CLINIC NOTE May 25, 2024 Piper Rodríguez 54 year old This consult was requested by Dr. Hedrick and my final recommendations will be communicated to the requesting health care provider by way of the shared medical record for internal providers or letter via the [employer] for external providers. Chief Complaint: [...] Magallanes: Seth Castro operative note (path pending) [id number] Pathology Scan on 05/22/2024 8:26 AM by Be Cloud: [facility] Pathology Report 05/11/24 COLON, Biopsy, Cecum: COLONIC [...] or locally advanced, (more content not included)... [facility] 04-25-2024 Note General Surgery Offi ce/Clinic [...] Tobacco Use:. Smokele (more content not included)... [facility] Comment on above: Result Comment: Elec tronically Signed By: FLORIDALMA PATEL, Jone Bell\Date and Time Signed: 04/25/24 10:59 EST Evaluation + Plan note No data available for this section [facility] General Surgery [place] Evaluation note No assessment information [facility]: Evaluation note Diagnosis Malignant neoplasm of ascending colon (HCC)- Primary Malignant neoplasm of ascending colon [facility] Malignant neoplasm of ascending colon (HCC) Malignant neoplasm of ascending colon Malignant neoplasm of ascending colon (HCC) Malignant neoplasm of ascending colon [facility]* Diagnosis Pre-op evaluation- Primary Preoperative examination, [...] Associated Problem(s): HTN (hypertension) Assessment: managed with [facility] PCP following Stable, BP in office 06/08/2024: 128/82 * Assessment & Plan Note - Aubrey Baer PA-C - 06/08/2024 9:15 AM EST Associated Problem(s): BMI 38.0-38.9,adult Assessment: BMI 38.78 documented in this encounter [facility] note* Diagnosis Pre-op evaluation- Primary Preoperative examination, unspecified BMI 38.0-38.9,adult Body Mass Index 38.0-38.9, adult Smokeless tobacco use Tobacco use disorder SHERIE (obstructive sleep apnea) Obstructive sleep apnea (adult) (pediatric) Malignant neoplasm of ascending colon (HCC)- Primary Malignant neoplasm of ascending colon documented in this encounter [facility] note* Diagnosis Pre-op evaluation- Primary Preoperative examination, unspecified BMI 38.0-38.9,adult Body Mass Index 38.0-38.9, adult Smokeless tobacco use Tobacco use disorder SHERIE (obstructive sleep apnea) Obstructive sleep apnea (adult) (pediatric) Malignant neoplasm of ascending colon (HCC) Malignant neoplasm of ascending colon documented in this encounter [facility] note* Diagnosis Pre-op evaluation- Primary Preoperative examination, unspecified BMI 38.0-38.9,adult Body Mass Index 38.0-38.9, adult Smokeless tobacco use Tobacco use disorder SHERIE (obstructive sleep apnea) Obstructive sleep apnea (adult) (pediatric) Malignant neoplasm of ascending colon (HCC)- Primary Malignant neoplasm of ascending colon documented in this encounter [facility] note* Diagnosis Pre-op evaluation- Primary Preoperative examination, unspecified BMI 38.0-38.9,adult Body Mass Index 38.0-38.9, adult Smokeless tobacco use Tobacco use disorder SHERIE (obstructive sleep apnea) Obstructive sleep apnea (adult) (pediatric) Follow-up examination after colorectal surgery- Primary Follow-up examination, following other surgery Encounter for staple removal Encounter for removal of sutures documented in this encounter [facility] note* Diagnosis Pre-op evaluation- Primary Preoperative examination, unspecified BMI 38.0-38.9,adult Body Mass Index 38.0-38.9, adult Smokeless tobacco use Tobacco use disorder SHERIE (obstructive sleep apnea) Obstructive sleep apnea (adult) (pediatric) Follow-up examination after colorectal surgery- Primary Follow-up examination, following other surgery History of colon cancer Personal history of malignant neoplasm of large intestine documented in this encounter [facility] note* Diagnosis Pre-op evaluation- Primary Preoperative examination, unspecified BMI 38.0-38.9,adult Body Mass Index 38.0-38.9, adult Smokeless tobacco use Tobacco use disorder SHERIE (obstructive sleep apnea) Obstructive sleep apnea (adult) (pediatric) Incisional hernia, without obstruction or gangrene- Primary Incisional hernia without mention of obstruction or gangrene documented in this encounter [facility] Discharge instructions No data available for this section [facility] General Surgery [place] Progress note No data available for this section [facility] General Surgery [place] Reason for referral (narrative)* Outpatient Procedure (Routine) - New Request Specialty Diagnoses / Procedures Referred By Contac t Referred To [facility] Diagnoses Pre-op evaluation Procedures ECG COMPLETE ECG ROUTINE ECG W/LEAST 12 LDS W/I&R Aubrey Baer PA-C [address] [facility] [place] [address] [facility] [place] [address] [place] [address] Referral ID Status Reason Start Date Expiration Date Visits Requested Visits Authorized [id number] New Request Auto-Generat ed Referral 06/08/2024 06/08/2025 1 1 [facility] Summary Purpose Family History No Family History Records Found No data available for this section No Family History Records Found No data available for this section No data available for this section No Family History Records Found No data available for this section No Family History Records FoundNo Family History Records Found No data available for this section No Family History Records Found Advance Directives Advance Directive Response Recorded Date/ Time Advance Directives No September 13 024 12:27pm Reason for Referral Specialty Diagnoses / Procedures Referred By Contac t Referred To Contact Oncology Diagnoses Malignant neoplasm of ascending colon (HCC) Procedures CONSULT TO ONCOLOGY OFFICE/OUTPATIENT NEW HIGH M[place] 60 [place] [address] [place] [address] Referral ID Status Reason Start Date Expiration Date Visits Requested Visits Authorized [id number] Authorized PCP Requested Referral 06/26/2024 06/26/2025 1 1 Specialty Diagnoses / Procedures Referred By Contac t Referred To Contact CT IMAGING Diagnoses Malignant neoplasm of ascending colon (HCC) Procedures CT CHEST W IVCON DIAGNOSTIC COMPUTED TOMOGRAPHY THORAX W/[place] [address] [place] [address] [address] [facility] [place] [address] Referral ID Status Reason Start Date Expiration Date Visits Requested Visits Authorized [id number] Authorized Auto-Generat ed Referral 05/25/2024 06/24/2025 1 1 Specialty Diagnoses / Procedures Referred By Contac t Referred To Contact CT IMAGING Diagnoses Malignant neoplasm of ascending colon (HCC) Procedures CT ABD/PEL W IVCON CT ABD & PEL[place] W/[place] [address] [place] [address] [address] [facility] [place] [address] Referral ID Status Reason Start Date Expiration Date Visits Requested Visits Authorized [id number] Authorized Auto-Generat ed Referral 05/25/2024 06/24/2025 1 1 Additional Source Comments (unrecognized sect ion and content) No Status Records FoundNo Status Records FoundNo Status Records FoundNo Status Records FoundNo Status Records FoundNo Status Records Found INFORMATION SOURCE (unrecogn ized section and content) DATE CREATED AUTHOR 07/18/2022 [facility] DATE CREATED AUTHOR AUTHOR'S ORGANIZ ATION 05/25/2024 [facility] DATE CREATED AUTHOR AUTHOR'S ORGANIZ ATION 07/01/2024 [facility] DATE CREATED AUTHOR AUTHOR'S ORGANIZ ATION 10/03/2024 [facility] DATE CREATED AUTHOR AUTHOR'S ORGANIZ ATION 10/25/2024 [facility] DATE CREATED AUTHOR AUTHOR'S ORGANIZ ATION 12/28/2024 [facility] Care Teams (unrecognized sec tion and content) Team Status: Inactive Member Role Status Dates Gen Peña MD Attending Provider Active Sta rt: August 02, 2023 End: August 02, 2023 Team Status: Inactive Member Role Status Dates Kisha Esteves MD Attending Provider Active St art: September 13, 2023 End: September 13, 2023 [employer] Relationship Specialty Start Date End Date Gen Peña MD [address] [place] [address] PCP - General Family Medicine 05/15/24 Jone Hedrick MD [address] [place] [address] General Surgery 05/15/24 [employer] Relationship Specialty Start Date End Date Gen Peña MD [address] [place] [address] PCP - General Family Medicine 05/15/24 Jone Hedrick MD [address] [place] [address] General Surgery 05/15/24 [employer] Relationship Specialty Start Date End Date Gen Peña MD [address] [place] [address] PCP - General Family Medicine 05/15/24 Jone Hedrick MD [address] [place] [address] General Surgery 05/15/24 [employer] Relationship Specialty Start Date End Date Gen Peña MD [address] [place] [address] PCP - General Family Medicine 05/15/24 Jone Hedrick MD [address] [place] [address] General Surgery 05/15/24 [employer] Relationship Specialty Start Date End Date Gen Peña MD [address] [place] [address] PCP - General Family Medicine 05/15/24 Jone Hedrick MD [address] [place] [address] General Surgery 05/15/24 [employer] Relationship Specialty Start Date End Date Gen Peña MD [address] [place] [address] PCP - General Family Medicine 05/15/24 Jone Hedrick MD [address] [address] General Surgery 05/15/24 [employer] Relationship Specialty Start Date End Date [place]ña [place] [address] [place] [address] PCP - General Family Medicine 05/15/24 Jone Hedrick MD [address] [address] General Surgery 05/15/24 [employer] Relationship Specialty Start Date End Date Gen Peña MD [address] [place] [address] PCP - General Family Medicine 05/15/24 Jone Hedrick MD [address] [address] General Surgery 05/15/24 [employer] Relationship Specialty Start Date End Date Gen Peña MD [address] [place] [address] PCP - General Family Medicine 05/15/24 Jone Hedrick MD [address] [place] [address] General Surgery 05/15/24 [employer] Relationship Specialty Start Date End Date Gen Peña MD [address] [place] [address] PCP - General Family Medicine 05/15/24 Jone Hedrick MD [address] [place] [address] General Surgery 05/15/24 [employer] Relationship Specialty Start Date End Date Gen Peña MD [address] [place] [address] PCP - General Family Medicine 05/15/24 Jone Hedrick MD [address] [place] [address] General Surgery 05/15/24 [employer] Relationship Specialty Start Date End Date Gen Peña MD [address] [place] [address] PCP - General Family Medicine 05/15/24 Jone Hedrick MD [address] [place] [address] General Surgery 05/15/24 Chelle Willis, RN [address] [place] [address] [place] [address] Specialty Slag Production Worker Hematology/Oncology 06/29/24 Joseph Bragg MD [address] [place] [address] Physician Hematology/Oncology 06/29/24 [employer] Relationship Specialty Start Date End Date Gen Peña MD [address] [place] [address] PCP - General Family Medicine 05/15/24 Jone Hedrick MD [address] [place] [address] General Surgery 05/15/24 Chelle Willis RN [address] [place] [address] Specialty Slag Production Worker Hematology/Oncology 06/29/24 Joseph Bragg MD [address] [facility] [address] Physician Hematology/Oncology 06/29/24 [employer] Cart[employer] Relationship Specialty Start Date End Date Gen Peña MD [address] [place] [address] PCP - General Family Medicine 05/15/24 Jone Hedrick MD [address] [place] [address] General Surgery 05/15/24 Chelle Willis RN [address] [facility] [address] Specialty Slag Production Worker Hematology/Oncology 06/29/24 Joseph Bragg MD [address] [place] [address] Physician Hematology/Oncology 06/29/24 [employer] Cart[employer] Relationship Specialty Start Date End Date Gen Peña MD [address] [place] [address] PCP - General Family Medicine 05/15/24 Jone Hedrick MD [address] [place] [address] General Surgery 05/15/24 Chelle Willis RN [address] [facility] [address] Specialty Slag Production Worker Hematology/Oncology 06/29/24 Joseph Bragg MD [address] [facility] [address] Physician Hematology/Oncology 06/29/24 [employer] Cart[employer] Relationship Specialty Start Date End Date Gen Peña MD [address] [place] [address] PCP - General Family Medicine 05/15/24 Jone Hedrick MD [address] [place] [address] General Surgery 05/15/24 Chelle Willis RN [address] [facility] [address] Specialty Slag Production Worker Hematology/Oncology 06/29/24 Joseph Bragg MD [address] [facility] [address] Physician Hematology/Oncology 06/29/24 [employer] Cart[employer] Relationship Specialty Start Date End Date Gen Peña MD [address] [place] [address] PCP - General Family Medicine 05/15/24 Jone Hedrick MD [address] [place] [address] General Surgery 05/15/24 Chelle Willis RN [address] [place] [address] Specialty Slag Production Worker Hematology/Oncology 06/29/24 Joseph Bragg MD [address] [place] [address] [place] [address] Physician Hematology/Oncology 06/29/24 [employer] Cart[employer] Relationship Specialty Start Date End Date [place] [address] [place] [address] PCP - General Family Medicine 05/15/24 Jone Hedrick MD [address] [place] [address] General Surgery 05/15/24 Chelle Willis RN [address] [place] [address] Specialty Slag Production Worker Hematology/Oncology 06/29/24 Joseph Bragg MD [address] [place] [address] [place] [address] Physician Hematology/Oncology 06/29/24 Goals (unrecognized section and [...] or prosecute any alcohol or drug abuse patient.[facility] the event this information is protected by the Federal Confidentiality of Alcohol and Drug Abuse Patient Records regulations: The Federal rules restrict any use of the information to criminally investigate or prosecute any alcohol or drug abuse patient.[facility] the event this information is protected by the Federal Confidentiality of Alcohol and Drug Abuse Patient Records regulations: The Federal rules restrict any use of the information to criminally investigate or prosecute any alcohol or drug abuse patient.[facility] the event this information is protected by the Federal Confidentiality of Alcohol and Drug Abuse Patient Records regulations: The Federal rules restrict any use of the information to criminally investigate or prosecute any alcohol or drug abuse patient.[facility] the event this information is protected by the Federal Confidentiality of Alcohol and Drug Abuse Patient Records regulations: The Federal rules restrict any use of the information to criminally investigate or prosecute any alcohol or drug abuse patient.[facility] the event this information is protected by the Federal Confidentiality of Alcohol and Drug Abuse Patient Records regulations: The Federal rules restrict any use of the information to criminally investigate or prosecute any alcohol or drug abuse patient.[facility] the event this information is protected by the Federal Confidentiality of Alcohol and Drug Abuse Patient Records regulations: The Federal rules restrict any use of the information to criminally investigate or prosecute any alcohol or drug abuse patient.[facility] the event this information is protected by the Federal Confidentiality of Alcohol and Drug Abuse Patient Records regulations: The Federal rules restrict any use of the information to criminally investigate or prosecute any alcohol or drug abuse patient.[facility] the event this information is protected by the Federal Confidentiality of Alcohol and Drug Abuse Patient Records regulations: The Federal rules restrict any use of the information to criminally investigate or prosecute any alcohol or drug abuse patient.[facility] the event this information is protected by the Federal Confidentiality of Alcohol and Drug Abuse Patient Records regulations: The Federal rules restrict any use of the information to criminally investigate or prosecute any alcohol or drug abuse patient.[facility] the event this information is protected by the Federal Confidentiality of Alcohol and Drug Abuse Patient Records regulations: The Federal rules restrict any use of the information to criminally investigate or prosecute any alcohol or drug abuse patient.[facility] the event this information is protected by the Federal Confidentiality of Alcohol and Drug Abuse Patient Records regulations: The Federal rules restrict any use of the information to criminally investigate or prosecute any alcohol or drug abuse patient.[facility] the event this information is protected by the Federal Confidentiality of Alcohol and Drug Abuse Patient Records regulations: The Federal rules restrict any use of the information to criminally investigate or prosecute any alcohol or drug abuse patient.[facility] the event this information is protected by the Federal Confidentiality of Alcohol and Drug Abuse Patient Records regulations: The Federal rules restrict any use of the information to criminally investigate or prosecute any alcohol or drug abuse patient.[facility] the event this information is protected by the Federal Confidentiality of Alcohol and Drug Abuse Patient Records regulations: The Federal rules restrict any use of the information to criminally investigate or prosecute any alcohol or drug abuse patient.[facility] the event this information is protected by the Federal Confidentiality of Alcohol and Drug Abuse Patient Records regulations: The Federal rules restrict any use of the information to criminally investigate or prosecute any alcohol or drug abuse patient.[facility] the event this information is protected by the Federal Confidentiality of Alcohol and Drug Abuse Patient Records regulations: The Federal rules restrict any use of the information to criminally investigate or prosecute any alcohol or drug abuse patient.[facility] the event this information is protected by the Federal Confidentiality of Alcohol and Drug Abuse Patient Records regulations: The Federal rules restrict any use of the information to criminally investigate or prosecute any alcohol or drug abuse patient.[facility] the event this information is protected by the Federal Confidentiality of Alcohol and Drug Abuse Patient Records regulations: The Federal rules restrict any use of the information to criminally investigate or prosecute any alcohol or drug abuse patient.[facility] Reason for Visit (unrecogniz ed section and content) Reason Comments Colon Cancer Reason Comments Patient Question Specialty Diagnoses / Procedures Referred By Contac t Referred To Contact CT IMAGING Diagnoses Malignant neoplasm of ascending colon (HCC) Procedures CT CHEST W IVCON DIAGNOSTIC COMPUTED TOMOGRAPHY THORAX W/[place] [address] [place] [address] [place] [address] Referral ID Status Reason Start Date Expiration Date V isits Requested Visits Authorized [id number] Closed Auto-Generate d Referral 05/25/2024 06/24/2025 1 1 Reason Comments Pre-Op Exam Reason Comments Post Op Reason Comments Colon Cancer New patient consult Specialty Diagnoses / Procedures Referred By Contac t Referred To Contact Oncology Diagnoses Malignant neoplasm of ascending colon (HCC) Procedures CONSULT TO ONCOLOGY OFFICE/OUTPATIENT NEW HIGH MDM 60 [place] [address] [place] [address] Referral ID Status Reason Start Date Expiration Date V isits Requested Visits Authorized [id number] Closed PCP Requested Referral 06/26/2024 06/26/2025 1 1 Reason Comments Research [facility] Research Pre-Scr eening (IRB: [id number]) Reason Comments Care Coordination Cancelling appointme nts at our office Reason Comments Care Coordination Treatment prep Reason Comments Post Op Follow Up Staple removal Reason Comments Research [facility]CI Research Pre-Scr eening ([id number]) Reason Comments Follow Up 3 month follow up, c olon cancer Reason Comments Established Patient Follow-Up 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 Final Path: T3 N1b. Completed 4 cycles of adjuvant chemo. FOR RECORDS PERTAINING TO PATIENTS WHO ARE [...] BE BASED ON THE PRIMARY CLINICAL RECORDS. [email or web address] provides no warranty or guarantee of the accuracy or completeness of information in this document.
--- NOTE | 2025-01-12 07:58 | CT_ITS ---
The [address] [address] Patient Name: PIPER RODRÍGUEZ MRN: [id number] date: 1970 Sex: M Assigned Patient Location: CT Current Patient Location: Accession/Order Number: [id number] Exam Date: 01/12/2025 08:09 Report Date: 01/12/2025 10:28 At the request of: FRANKLIN VILLANUEVA MD Procedure: CT abdomen pelvis w con CT CHEST, ABDOMEN AND PELVIS WITH INTRAVENOUS CONTRAST: CLINICAL HISTORY: Malignant Neoplasm Cecum, Nausea Vomiting, Anemia COMPARISON: 09/26/2024 TECHNIQUE: TECHNIQUE: Spiral images were obtained through the chest, abdomen and pelvis following the administration of IV contrast. This CT exam was performed using one or more following dose reduction techniques: Automated exposure control, adjustment of the mA and/or kV according to patient size, or use of iterative reconstruction technique. FINDINGS: CT chest: Mediastinum:Right-sided port is in place. Thoracic aorta is not aneurysmal. Pulmonary trunk appears nondilated. No pleural effusion. No lymphadenopathy. The esophagus is grossly unremarkable. Lungs:No consolidation pneumothorax or pleural effusion. Mild lung scarring. No suspicious pulmonary nodule seen on today's study. Soft tissues/Bones: No acute findings. Osseous structures demonstrate degenerative change. CT abdomen and pelvis: Organs:Fatty infiltration liver with scattered areas of wedge-shaped fatty sparing. Otherwise the gallbladder spleen pancreas and adrenal glands appear unremarkable. No enhancing renal mass or hydronephrosis. GI: Stomach is grossly unremarkable. Small bowel appears nondilated. Right hemicolectomy changes. Remaining colon appears unremarkable.[ Pelvis:[Artifact from hip prostheses degrades evaluation. Question anterior bladder wall thickening this could relate to under distention Peritoneum/Retroperitoneum:No free air or free fluid or lymphadenopathy.[Aorta is nonaneurysmal with pkja-uw-nssgwjkr plaque. Abd wall/Bones:No acute findings. Osseous structures demonstrate degenerative change.[No suspicious osseous lesion. Bilateral hip arthroplasties. CT/CT chest w con IMPRESSION: No evidence of tumor recurrence or metastatic disease Anterior bladder wall thickening likely due to under distention. Impression dictated by: Ronan Roper M.D. 01/12/2025 10:28 AM Dictation Location: UserTesting Electronically authenticated by: [id number] Y Date: 01/12/2025 10:28
--- NOTE | 2025-01-12 07:58 | CT_ITS ---
The [address] [address] Patient Name: PIPER RODRÍGUEZ MRN: [id number] date: 1970 Sex: M Assigned Patient Location: CT Current Patient Location: Accession/Order Number: [id number] Exam Date: 01/12/2025 08:09 Report Date: 01/12/2025 10:28 At the request of: FRANKLIN VILLANUEVA MD Procedure: CT abdomen pelvis w con CT CHEST, ABDOMEN AND PELVIS WITH INTRAVENOUS CONTRAST: CLINICAL HISTORY: Malignant Neoplasm Cecum, Nausea Vomiting, Anemia COMPARISON: 09/26/2024 TECHNIQUE: TECHNIQUE: Spiral images were obtained through the chest, abdomen and pelvis following the administration of IV contrast. This CT exam was performed using one or more following dose reduction techniques: Automated exposure control, adjustment of the mA and/or kV according to patient size, or use of iterative reconstruction technique. FINDINGS: CT chest: Mediastinum:Right-sided port is in place. Thoracic aorta is not aneurysmal. Pulmonary trunk appears nondilated. No pleural effusion. No lymphadenopathy. The esophagus is grossly unremarkable. Lungs:No consolidation pneumothorax or pleural effusion. Mild lung scarring. No suspicious pulmonary nodule seen on today's study. Soft tissues/Bones: No acute findings. Osseous structures demonstrate degenerative change. CT abdomen and pelvis: Organs:Fatty infiltration liver with scattered areas of wedge-shaped fatty sparing. Otherwise the gallbladder spleen pancreas and adrenal glands appear unremarkable. No enhancing renal mass or hydronephrosis. GI: Stomach is grossly unremarkable. Small bowel appears nondilated. Right hemicolectomy changes. Remaining colon appears unremarkable.[ Pelvis:[Artifact from hip prostheses degrades evaluation. Question anterior bladder wall thickening this could relate to under distention Peritoneum/Retroperitoneum:No free air or free fluid or lymphadenopathy.[Aorta is nonaneurysmal with xgep-vf-vzqefsjj plaque. Abd wall/Bones:No acute findings. Osseous structures demonstrate degenerative change.[No suspicious osseous lesion. Bilateral hip arthroplasties. CT/CT abdomen pelvis w con IMPRESSION: No evidence of tumor recurrence or metastatic disease Anterior bladder wall thickening likely due to under distention. Impression dictated by: Ronan Roper M.D. 01/12/2025 10:28 AM Dictation Location: [id number]-[id number] Electronically authenticated by: [id number] Y Date: 01/12/2025 10:28
== END 2025-01-12 07:51 | disposition home or self-care (01) ==
LOC: CT 07:50
PROVIDERS: PCP Family Medicine; Visit Provider Internal Medicine Hematology & Oncology
DX: D64.9 Anemia, unspecified (principal); D61.818 Other pancytopenia; D50.9 Iron deficiency anemia, unspecified; K90.9 Intestinal malabsorption, unspecified; D72.819 Decreased white blood cell count, unspecified; C18.0 Malignant neoplasm of cecum; R11.2 Nausea with vomiting, unspecified
CPT/HCPCS: 71260; 74177; Q9967

== ENCOUNTER 2025-02-02 20:55 | Emergency (ER) | payer BC, SELFPAY ==
[2025-02-02 20:58] VITALS: BP 91/64; PULSE 119; TEMP 38; O2SAT 97; BMI 35.9
[2025-02-02 21:28] VITALS: BP 110/52; PULSE 91; TEMP 36.9; O2SAT 94
--- OUTSIDE RECORDS SUMMARY | 2025-02-02 21:30 | XMS_ITS | Clinical Summary ---
Author Organization [facility] Address [address] [place] [address] Care Team Providers Care Manager Camp Name Role Phone Delta Pratt MD Primary Care Provider [phone] Geoffrey Edmond MD Unavailable [phone] Natalie Willis RN Unavailable [phone] Joseph Bragg MD Unavailable [phone] Allergies No known active allergies Medications EDARBI [...] Visit Colorectal Surgery [address] [place] [address] Eleno Carias MD Incisional hernia, without obstruction or gangrene (Primary Dx) 01/09/2025 Travel from Last 3 Months Immunizations Immunization [...] drink = 0.6 oz pur e alcohol) [facility] Utilities Answer Date Recorded In the past 12 months has th e [employer], gas, oil, or water [employer] threatened to shut off services in your [...] any time in the past 12 m [facility], were you homeless or living in a care home (including now)? No 06/23/2024 AUDIT-C Answer Date [...] is lower risk 9 06/02/2024 Data from: https://www.neighborhoodatlas.medicine.[facility]/. Last address used for calculation [address] [...] - 99 mg/dL 06/23/2024 6:03 AM EST [facility] Comment: The [place] Diabetes Association (ADA) provides guidance for cutoff [...] Standards of Medical Care in Diabetes 2016, [place] [employer]. Diabetes Care. 2016.39(Suppl 1). BUN 13 9 - 24 mg/dL 06/23/2024 6:03 AM EST [facility] Creatinine 0.96 0.73 - 1.22 mg/dL 06/23/2024 6:03 AM EST [facility] Sodium 138 136 - 144 mmol/L 06/23/2024 6:03 AM EST [facility] Potassium 4.2 3.7 - 5.1 mmol/L 06/23/2024 6:03 AM EST [facility] Chloride 104 98 - 107 mmol/L 06/23/2024 6:03 AM EST [facility] CO2 24 22 - 30 mmol/L 06/23/2024 6:03 AM EST [facility] Anion Gap 10 8 - 15 mmol/L 06/23/2024 6:03 AM EST [facility] Calcium, Total 8.9 8.5 - 10.2 mg/dL 06/23/2024 6:03 AM EST [facility] Estimated Glomerular Filtration Rate 95 >=60 mL/min/1. 73m 06/23/2024 6:03 AM EST [facility] Comment:Estimated Glomerular Filtration Rate (eGFR) is [...] MD LABORATORY Final Result Performing Organization Address City/State/[facility] Co de Phone Number [facility] [address] from Last 3 Months or Most Recently Relevant to Health Maintenance Insurance [facility] PPO Care Teams Manager Camp Relationship Specialty Start Date End Date Delta Pratt MD [address] [place] [address] PCP - General Family Medicine 05/15/24 Geoffrey Edmond MD [address] [facility] [address] [place] [address] General Surgery 05/15/24 Natalie Willis, RN [address] [place] [address] Specialty Compliance Specialist Hematology/Oncology 06/29/24 Joseph Bragg MD [address] [place] [address] [place] [address] Physician Hematology/Oncology 06/29/24
--- OUTSIDE RECORDS SUMMARY | 2025-02-02 21:30 | XMS_ITS | Clinical Summary ---
Author Organization [facility] Address [facility]-[id number] [address] [id number] Care Team Providers Care Graphic Designer Name Role Phone Unavailable Primary Care Provider [...]
--- OUTSIDE RECORDS SUMMARY | 2025-02-02 21:30 | XMS_ITS | Clinical Summary ---
Author Organization [facility] Address [address] [place] [address] Care Team Providers Care Manager Film Name Role Phone Unavailable Primary Care Provider [...]
--- OUTSIDE RECORDS SUMMARY | 2025-02-02 21:30 | XMS_ITS | CCD ---
Author Organization [facility] CliniSymn Care Team Providers Care Negative Turner Apprentice Name Role Phone CASEY ., DR BLEVINS [...] Consulting Unavailable MD Gen Peña Attending Provider [phone] MD Kisha Esteves Attending Provider Gen Peña Primary Care Physician Gen Peña Attending Unavailable Gen Peña Admitting Unavailable Kisha Esteves Attending Unavailable Kisha Esteves Admitting Unavailable Jone Hedrick Admitting Unavailable Jone Hedrick Attending Unavailable Gen Peña MD Primary Care Provider [phone] Jone Hedrick MD Unavailable [phone] Lazaro MONTOYA, Chelle Orta Unavailable [phone] Yemi PATEL, [facility] Unavailable [phone] DONIS CARIAS Admitting Unavailable DONIS CARIAS Attending Unavailable GEN PEÑA Primary Care Unavailable DONIS CARIAS Referring Unavailable GEN PEÑA Primary Care Unavailable DONIS CARIAS Referring Unavailable GEN PEÑA Primary Care Unavailable DONIS CARIAS Referring Unavailable HOY, GEN M Primary Care Unavailable HOY, GEN M Primary Care Unavailable KATY CARIASARATBridget Admitting Unavailable ASHLEIGH CARIASU Attending Unavailable JOE JONES Attending Unavailable DANIELITO, KISHA Referring Unavailable NILL, Jone Galeana Attending Unavailable NILL, Jone Galeana Attending Unavailable DANIELITO, KISHA Referring Unavailable NILL, Jone R Attending Unavailable NILL, Jone Galeana Attending Unavailable NILL, Jone Galeana Attending Unavailable NILL, Jone Galeana Attending Unavailable NILL, Jone Galeana Attending Unavailable Clarisa Bragg MDh Unavailable JOSEPH BRAGG Attending Unavailable RAVIINRO, KATYARATU Referring Unavailable HOY, GEN M Primary Care Unavailable BENOITRO, JACKIETU Referring Unavailable HOY, GEN M Primary Care Unavailable DONIS CARIAS Attending Unavailable NILL, JONE R Referring Unavailable HOY, GEN M Primary Care Unavailable ASHLEIGH CARIASU Attending Unavailable HOY, GEN M Primary Care Unavailable KEJANERO, ASHLEIGHU Attending Unavailable HOY, GEN M Primary Care Unavailable MAYLIN CONTE Attending Unavailable DINERMAYLIN Referring Unavailable HOY, GNE M Primary Care Unavailable Luna Sierra APRN Attending Provider [phone] NON STAFF Primary Care Provider Unavailabl e Allergies Allergy Classification Reported Allergen(s) Allergy Type Date of Onset Reaction(s) Facility (1 source) No Known Medication Allergies; Translations: [No Known Medication Allergies] Propensity to adverse reactions (disorder) [facility] Repository Medications Current Medications Medication Drug Class(es) Dates Sig (Normalized) Sig (Original) acetaminophen 500 mg oral tablet (13 sources) Start: 06-16-2024 take 2 tablets by mouth every six hours acetaminophen (TYLENOL) 500 mg tablet Take 2 tablets by mouth every 6 hours. 50 tablet 06/16/2024 Active Acidophilus Probiotic Blend (2 sources) Start: 06-28-2024 take 1 capsule by mouth once daily [...] (20 sources) Angiotensin 2 Receptor Connie Start: 01-30-2025 take 1 tablet by mouth once daily Azilsartan Medoxomil (Edarbi) 80 mg tablet Active 80 MG PO Daily January 30, 2025 12:00am Complies with drug therapy Start: 06-03-2018 EDARBI 80 mg t ab 05/25/2019 Active capecitabine 500 mg oral tablet (1 source) Nucleoside Metabolic Inhibitor Start: 12-27-2024 End: 01-10-2025 take 3 tablets by mouth twice daily capecitabine 500 mg Tab 1,500 mg = 3 tab(s), Oral, BID, X 2 week(s), Refills(s) 0 Start Date: 12/27/24 Stop Date: 01/10/25 Status: Ordered Repeat number: 1 0.4 ml enoxaparin sodium 100 mg/ml prefilled syringe (9 sources) Low Molecular Weight Heparin Start: 06-16-2024 End: 07-07-2024 inject 40 mg by subcutaneous injection every twenty-four hours enoxaparin (LOVENOX) 40 mg/0.4 mL Inject 0.4 mL subcutaneously every 24 hours for 21 days. 8.4 mL 06/16/2024 07/07/2024 Active enteric contrast (will be provided with radiology test) (19 sources) Start: 05-25-2024 enteric contrast (will be [...] provided with radiology test) (19 sources) Start: 05-25-2024 iv contrast (will be [...] 1 Each 05/25/2024 Active lactobacillus rhamnosus gg [id number] unt oral capsule (13 sources) Start: 06-16-2024 End: 07-16-2024 take 1 capsule by mouth once daily lactobacillus rhamnosus (CULTURELLE) 10 billion cell capsule Take 1 capsule by mouth once daily. 30 capsule 06/16/2024 Active methocarbamol 500 mg oral tablet (12 sources) Muscle Relaxant Start: 06-23-2024 take 1 tablet by mouth three times [...] tablet (7 sources) Serotonin-3 Receptor Antagonist Start: 06-29-2024 take 1 tablet by mouth every eight hours as needed ondansetron (ZOFRAN) 8 mg tablet Take 1 tablet by mouth every 8 hours as needed for nausea/vomiting. 90 tablet 2 06/29/2024 Active oxyCODONE hydrochloride 5 mg oral tablet (3 sources) Opioid Agonist Start: 06-16-2024 End: 06-23-2024 take 1 tablet by mouth every six hours as needed oxyCODONE IR (ROXICODONE) 5 mg immediate release tablet Indications: Post-op pain Take 1 tablet by mouth every 6 hours as needed for up to 7 days. 25 tablet 06/16/2024 06/23/2024 Active pantoprazole 40 mg delayed release oral tablet (6 sources) Proton Pump Inhibitor Start: 04-18-2024 take 1 tablet by mouth once daily Protonix 40 mg Tab-DR 40 mg = 1 tab(s), Oral, Daily, Refills(s) 0 Start Date: 04/18/24 Status: Ordered prochlorperazine 10 mg oral tablet (7 sources) Phenothiazine Start: 06-29-2024 take 1 tablet by mouth every six hours as needed prochlorperazine (COMPAZINE) 10 mg tablet Take 1 tablet by mouth every 6 hours as needed. 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; Translations: [OTH 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 CURRENT DRUG THERAPY] Onset: 02-08-2022 Episodic Other screening for suspected conditions (not mental disorders or infectious disease) (1 source) Encounter for screening for malignant neoplasm of prostate; Translations: [ENC SCREEN MALIG NEOPLASM PROSTATE] Onset: 02-08-2022 Episodic Residual codes; unclassified (15 sources) User of smokeless tobacco; Translations: [Tobacco use] Onset: 06-08-2024 06-08-2024 Episodic Results Test Name Value Interpretation Reference Range Facility [facility] 01-11-2025 CNOV Office Visit ([facility] ) PIPER RODRÍGUEZ ([id number]) 1970 M Date Time Provider Department 01/11/25 1:00 PM DONIS CARIAS [facility] During your visit today, we recorded the following information about you: Pulse Blood pressure Weight Height 69/minute 130/80 114.3 kg 1.778 m Donis Carias MD 01/11/2025 1:34 PM Signed [facility] January 11, 2025 Piper Rodríguez 54 year old Recording using [employer] software for draft documentation of the visit was discussed with the patient/authorized payable representative; all questions welcomed and answered. Patient/authorized payable representative agreed to proceed Chief Complaint: abdominal [...] obstruction or hernia incarceration. He maintains a ?clean? diet and reports a normal appetite. He [...] Wt 114.3 kg (252 lb) BMI 36.16 kg/m? General Appearance: Well appearing, alert, in no acute distress, well-hydrated, well nourished. Abdomen: soft, non distended, non tender. ~1cm fascia defect above and below incision, as well as diastasis recti Colonoscopy 06/03/2018 - Dr Hedrick @ [facility] Scan on 05/15/2024 9:54 AM by Be Cloud: [facility]- Operative Report 06/03/18 Colonoscopy 05/10/24 - Dr. Hedrick @ [facility] Scan on 05/16/2024 9:34 AM by Norma Magallanes: [facility] operative note (path pending) [id number] Pathology Scan on 05/22/2024 8:26 AM by Be Cloud: [facility] Pathology Report 05/11/24 COLON, Biopsy, Cecum: COLONIC TISSUE WITH INVASIVE ADENOCARCINOMA, MODERATELY DIFFERENTIATED, ULCERATION NOTED 2. COLON, Biopsy, Sigmoid: LARGE TUBULAR ADENOMA (>1 CM), NEGATIVE FOR HIGH GRADE DYSPLASIA, AREAS SHOWING CAUTERY ARTIFACT ARE POSITIVE FOR ADENOMATOUS GLANDS 3. COLON, Biopsy, Descending: TUBULAR ADENOMA. NEGATIVE FOR HIGH GRADE DYSPLASIA FINAL DIAGNOSIS Terminal i (more content not included)... Normal [facility] Ambulatory Visit Summaryon 0 12-27-2024 Ambulatory Visit Summary Ambulatory Visit Summary PIPER RODRÍGUEZ :1970 Visit Date:12/27/2024 Ambulatory Visit Instructions Your Care Team Attending Physician - FLORIDALMA PATEL, Jone Galeana Primary Care Physician - Gen Peña MD This Is Your Medications List azilsartan (Edarbi) [...] signed up for this yet, please contact [employer] at [phone] to get signed up today. Language Information Language assistance services are available as needed. Andrea [facility] CNOVon 10-24-2024 [facility] Office Visit ([facility]) PIPER RODRÍGUEZ ([id number]) 1970 M Date Time Provider Department 10/24/24 10:00 AM DONIS CARIAS [facility] During your visit today, we recorded the following information about you: Pulse Blood pressure Weight 71/minute 160/91 114.7 kg Donis Carias MD 10/24/2024 10:19 AM Signed [facility] Recording using [employer] software for draft documentation of the visit was discussed with the patient/authorized payable representative; all questions welcomed and answered. 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 He underwent evaluation by a gas specialist, including an echocardiogram, which was reportedly normal. [...] 06/03/18 Colonoscopy 05/10/24 - Dr. Hedrick @ [facility] Scan on 05/16/2024 9:34 AM by Norma Magallanes: [facility] operative note (path pending) [id number] Pathology Scan on 05/22/2024 8:26 AM by Be Cloud: [facility] Pathology Report 05/11/24 COLON, Biopsy, Cecum: COLONIC TISSUE WITH INVASIVE ADENOCARCI (more content not included)... Normal [facility] 29on 09-27-2024 29 Addended by: Ngozi JONES on: 09/27/2024 04:14 PM Modules accepted: Orders Normal [facility] Office Visiton 09-27-2024 Follow-up visit [id number] Piper Rodríguez 1970 [facility] Provider Department Center 09/27/2024 [id number] JONES [facility] No family history on file Level of Service:58340 ME OFFICE/OUTPATIENT ESTABLISHED MOD MDM 30 MIN [facility] Orders Onlyon 09-27-2024 Orders Only [id number] Piper Rodríguez 1970 [facility] Provider Department Center 09/27/2024 [id number] HAMPTON [facility] No family history on file [facility] Abstracton 09-26-2024 Abstract [id number] Piper Rodríguez 1970 [facility] Provider Department Center 09/26/2024 [id number] GONSALEZ [facility] No family history on file [facility] Ambulatory Visit Summaryon 0 07-18-2024 Ambulatory Visit Summary Ambulatory Visit Summary PIPER RODRÍGUEZ :1970 Visit Date:07/18/2024 Ambulatory Visit Instructions Your Diagnosis Stage III adenocarcinoma of colon Your Care Team Attending Physician - FLORIDALMA PATEL, Jone Galeana Primary Care Physician - Gen Peña MD This Is Your Medications List Contact prescribing [...] for choosing us for your care. Normal Ann [facility] General Surgery Office/Clini c Noteon 07-18-2024 General Surgery Office/Clinic Note General Surgery Office/Clinic Note Chief Complaint post operative foloow up HPI Staff 13 day post operative follow up post insertion of [id number]. Denies discomfort, no use of pain medication. [...] mRNA-1273 vaccine 08/22/2020 Recorded 2024-04-17: TPV40 Normal Seth [facility] Comment on above: Result Comment: Elec tronically Signed By: FLORIDALMA PATEL, Jone Bell\Date and Time Signed: 07/18/24 14:26 EST CNOVon 07-07-2024 CNOV Office Visit ([facility] ) PIPER RODRÍGUEZ ([id number]) 1970 M Date Time Provider Department 07/07/24 9:00 AM MAYLIN CONTE [id number] During your visit today, we recorded the following information about you: Temperature Pulse Blood pressure Weight 97.9 degrees 88/minute 134/77 113.4 kg Height 1.778 m [place] 07/07/2024 9:33 AM Signed What is the [...] internal providers or letter via the [employer] for external providers. Chief Complaint: [...] distress, well-hydrated, (more content not included)... Normal [facility]20[facility] PIPER RODRÍGUEZ ([id number]) 1970 M Date Time Provider Department 06/30/24 CHELLE WILLIS During your visit today, we recorded the following information about you: Chelle Willis RN 06/30/2024 11:10 AM Signed Voicemail received from pt's stating pt will be going to [place] to see their oncologist, and doesn't wish to follow up here. Please cancel appointments on 07/12. Call placed to to further assess. Message left requesting her to call our office back. Thanks Chelle Willis RN SimonMaria Luisa 06/30/2024 11:31 AM Signed All appointments on 07/12/24 have been canceled Maria Luisa Montes PSS Allergies As of Date: 06/30/2024 (No Known Allergies) Date Reviewed: 06/28/2024 Reviewed by: Óscar Esthela, - Fully Assessed Reason for Visit: Care [...] Encounter Status:Closed by SABI ALLEN on 06/30/24 [facility] Rosemarie 06-29-2024 CNPN Telephone (HEMASA) PIPER RODRÍGUEZ ([id number]) 1970 M Date Time Provider Department 06/29/24 CHELLE WILLIS During your visit today, we recorded the following information about you: Chelle Willis RN 06/29/2024 12:44 PM Signed Pt will [...] nausea/vomiting.Disp: 90 tabletRfl: 2 CONSULT TO SURVIVORSHIP [237543] Order #: [id number]: 1 FUTURE CONSULT TO ONCOLOGY NUTRITION [3278586] Order #: [id number]: 1 FUTURE Prescriptions as of 07/05/2024 - [...] Status:Closed by CHELLE WILLIS on 07/05/24 Normal [facility] Ambulatory Visit Summaryon 0 06-28-2024 Ambulatory Visit Summary Ambulatory Visit Summary PIPER RODRÍGUEZ :1970 Visit Date:06/28/2024 Ambulatory Visit Instructions Your Care Team Attending Physician - FLORIDALMA PATEL, Jone Galeana Primary Care Physician - Gen Peña MD This Is Your Medications List Contact prescribing [...] choosing us for your care. Andrea Ann [facility] CNOVSPon 06-28-2024 CNOVSP Visit (SP) Office (H EMASA) PIPER RODRÍGUEZ ([id number]) 1970 M Date Time Provider Department 06/28/24 11:00 AM JOSEPH BRAGG During your visit today, we recorded the following information about you: Temperature Pulse Respiration Blood pressure 97.3 degrees 74/minute 18/minute 118/79 Weight Height 115.3 kg 1.778 m Joseph Bragg MD 06/28/2024 11:29 AM Signed PATIENT NAME: Piper Rodríguez CLINIC NO.: [id number] ATTENDING PHYSICIAN: Joseph Bragg MD DATE OF SERVICE: June 28, [address] Donis Carias [id number] [facility] [address] thank you for referring Piper Rodríguez for [...] appearance:ECOG PER (more content not included)... Normal [facility] Basic metabolic 2000 panelon 06-23-2024 Anion gap [Moles/Vol] 10 mmol/L Normal 8-15 [facility] Comment on above: Order Comment: Speci men Type: BLOOD SPECIMENOrdering Facility: [facility] Address: [address] [id number] Performed By: #### 2 4321-2, , 2776-05 ####[facility] LABORATORYCLIA [id number] [place] [id number] [place] Calcium [Mass/Vol] 8.9 mg/dL Normal 8.5-10.2 [facility] Comment on above: Order Comment: Speci men Type: BLOOD SPECIMENOrdering Facility: [facility] Address: [address] [place] [address] Performed By: #### 2 4321-2, , 2776-05 ####[facility] LABORATORYCLIA [id number] [place] [address] [place] Chloride [Moles/Vol] 104 mmol/L Normal 98-107 [facility] Comment on above: Order Comment: Speci men Type: BLOOD SPECIMENOrdering Facility: [facility] Address: [address] [place] [address] Performed By: #### 2 4321-2, , 2776-05 ####[facility] LABORATORYCLIA [id number] [place] [address] [place] CO2 [Moles/Vol] 24 mmol/L Normal 22-30 [facility] Comment on above: Order Comment: Speci men Type: BLOOD SPECIMENOrdering Facility: [facility] Address: [address] [place] [address] Performed By: #### 2 4321-2, , 2776-05 ####[facility] LABORATORYCLIA [id number] [place] [address] [place] [facility] Creatinine [Mass/Vol] 0.96 mg/dL Normal 0.73-1.22 [facility] Comment on above: Order Comment: Speci men Type: BLOOD SPECIMENOrdering Facility: [facility] Address: [address] [place] [address] Performed By: #### 2 4321-2, , 2776-05 ####[facility] LABORATORYCLIA [id number] [address] Creatinine and Glomerular filtration rate.predicted panel (S/P/Bld) 95 mL/min/1.73m??? Normal >=60 [facility] Comment on above: Order Comment: Speci men Type: BLOOD SPECIMENOrdering Facility: [facility] Address: [address] [place] [address] Result Comment: Dee mated Glomerular Filtration Rate [...] GFR. Performed By: #### 2 4321-2, , 2777-1 ####[facility] LABORATORYCLIA [id number] [place] [address] [place] Glucose [Mass/Vol] 105 mg/dL High 74-99 [facility] Comment on above: Order Comment: Speci men Type: BLOOD SPECIMENOrdering Facility: [facility] Address: [address] [place] [address] Result Comment: The [place] Diabetes Association (ADA) provides guidance for cutoff [...] Standards of Medical Care in Diabetes 2016, [place] [employer] Association. Diabetes Care. 2016.39(Suppl 1). Performed By: #### 2 4321-2, , 2776-05 ####[facility] LABORATORYCLIA [id number] [place] [address] [place] Potassium [Moles/Vol] 4.2 mmol/L Normal 3.7-5.1 [facility] Comment on above: Order Comment: Speci men Type: BLOOD SPECIMENOrdering Facility: [facility] Address: [address] [place] [address] Performed By: #### 2 4321-2, , 2776-05 ####[facility] LABORATORYCLIA [id number] [place] [address] [place] Sodium [Moles/Vol] 138 mmol/L Normal 136-144 [facility] Comment on above: Order Comment: Speci men Type: BLOOD SPECIMENOrdering Facility: [facility] Address: [address] [place] [address] Performed By: #### 2 4321-2, , 2776-05 ####[facility] LABORATORYCLIA [id number] [place] [address] [place] Urea nitrogen [Mass/Vol] 13 mg/dL Normal 9-24 [facility] Comment on above: Order Comment: Speci men Type: BLOOD SPECIMENOrdering Facility: [facility] Address: [address] [place] [address] Performed By: #### 2 4321-2, 13319-7, 2777-1 ####[facility] LABORATORYCLIA [id number] [place] [address] [place] CBC W Auto Differential pane l (Bld)on 06-23-2024 Basophils (Bld) [#/Vol] 0.05 10*3/uL Normal <0.11 [facility] Comment on above: Order Comment: Speci men Type: BLOOD SPECIMENOrdering Facility: [facility] Address: [address] [place] [address] Performed By: #### 5 7021-8 ####[facility] LABORATORYCLIA [id number] [place] [address] [place] Basophils/100 WBC (Bld) 0.8 % Normal [facility] Comment on above: Order Comment: Speci men Type: BLOOD SPECIMENOrdering Facility: [facility] Address: [address] [place] [address] Performed By: #### 5 7021-8 ####[facility] LABORATORYCLIA [id number] [address] [place] Differential cell count method Nom (Bld) Auto Normal [facility] Comment on above: Order Comment: Speci men Type: BLOOD SPECIMENOrdering Facility: [facility] Address: [address] [place] [address] Performed By: #### 5 7021-8 ####[place] LABORATORYCLIA [id number] [place] [id number] [place] Eosinophils (Bld) [#/Vol] 0.30 10*3/uL Normal <0.46 [facility] Comment on above: Order Comment: Speci men Type: BLOOD SPECIMENOrdering Facility: [facility] Address: [address] [place] [address] Performed By: #### 5 7021-8 ####[facility] LABORATORYCLIA [id number] [place] [address] [place] Eosinophils/100 WBC (Bld) 4.6 % Normal [facility] Comment on above: Order Comment: Speci men Type: BLOOD SPECIMENOrdering Facility: [facility] Address: [address] [place] [address] Performed By: #### 5 7021-8 ####[facility] LABORATORYCLIA [id number] [address] [place] Erythrocyte distribution width (RBC) [Ratio] 14.6 % Normal 11.5-15.0 [facility] Comment on above: Order Comment: Speci men Type: BLOOD SPECIMENOrdering Facility: [facility] Address: [address] [place] [address] Performed By: #### 5 7021-8 ####[facility] LABORATORYCLIA [id number] [place] [address] [place] Hematocrit (Bld) [Volume fraction] 38.0 % Low 39.0-51.0 [facility] Comment on above: Order Comment: Speci men Type: BLOOD SPECIMENOrdering Facility: [facility] Address: [address] [place] [address] Performed By: #### 5 7021-8 ####[facility] LABORATORYCLIA [id number] [place] [address] [place] Hemoglobin (Bld) [Mass/Vol] 11.9 g/dL Low 13.0-17.0 [facility] Comment on above: Order Comment: Speci men Type: BLOOD SPECIMENOrdering Facility: [facility] Address: [address] [place] [address] Performed By: #### 5 7021-8 ####[facility] LABORATORYCLIA [id number] [address] [place] Immature granulocytes (Bld) [#/Vol] 0.04 10*3/uL Normal <0.10 [facility] Comment on above: Order Comment: Speci men Type: BLOOD SPECIMENOrdering Facility: [facility] Address: [address] [place] [address] Performed By: #### 5 7021-8 ####[facility] LABORATORYCLIA [id number] [place] [id number] [place] Immature granulocytes/100 WBC (Bld) 0.6 % Normal [facility] Comment on above: Order Comment: Speci men Type: BLOOD SPECIMENOrdering Facility: [facility] Address: [address] [place] [address] Performed By: #### 5 7021-8 ####[facility] LABORATORYCLIA [id number] [place] [address] [place] Lymphocytes (Bld) [#/Vol] 1.78 10*3/uL Normal 1.00-4.00 [facility] Comment on above: Order Comment: Speci men Type: BLOOD SPECIMENOrdering Facility: [facility] Address: [address] [place] [address] Performed By: #### 5 7021-8 ####[facility] LABORATORYCLIA [id number] [address] [place] Lymphocytes/100 WBC (Bld) 27.0 % Normal [facility] Comment on above: Order Comment: Speci men Type: BLOOD SPECIMENOrdering Facility: [facility] Address: [address] [place] [address] Performed By: #### 5 7021-8 ####[facility] LABORATORYCLIA [id number] [place] [id number] [place] MCH (RBC) [Entitic mass] 29.3 pg Normal 26.0-34.0 [facility] Comment on above: Order Comment: Speci men Type: BLOOD SPECIMENOrdering Facility: [facility] Address: [address] [place] [address] Performed By: #### 5 7021-8 ####[place] LABORATORYCLIA [id number] [place] [address] [place] MCHC (RBC) [Mass/Vol] 31.3 g/dL Normal 30.5-36.0 [facility] Comment on above: Order Comment: Speci men Type: BLOOD SPECIMENOrdering Facility: [facility] Address: [address] [place] [address] Performed By: #### 5 7021-8 ####[facility] LABORATORYCLIA [id number] [place] [id number] [place] MCV (RBC) [Entitic vol] 93.6 fL Normal 80.0-100.0 [facility] Comment on above: Order Comment: Speci men Type: BLOOD SPECIMENOrdering Facility: [facility] Address: [address] [place] [address] Performed By: #### 5 7021-8 ####[facility] LABORATORYCLIA [id number] [place] [id number] [place] Monocytes (Bld) [#/Vol] 0.84 10*3/uL Normal <0.87 [facility] Comment on above: Order Comment: Speci men Type: BLOOD SPECIMENOrdering Facility: [facility] Address: [address] [place] [address] Performed By: #### 5 7021-8 ####[facility] LABORATORYCLIA [id number] [place] [address] [place] Monocytes/100 WBC (Bld) 12.7 % Normal [facility] Comment on above: Order Comment: Speci men Type: BLOOD SPECIMENOrdering Facility: [facility] Address: [address] [place] [address] Performed By: #### 5 7021-8 ####[facility] LABORATORYCLIA [id number] [place] [id number] [place] Neutrophils (Bld) [#/Vol] 3.58 10*3/uL Normal 1.45-7.50 [facility] Comment on above: Order Comment: Speci men Type: BLOOD SPECIMENOrdering Facility: [facility] Address: [address] [place] [address] Performed By: #### 5 7021-8 ####[facility] LABORATORYCLIA [id number] [place] [id number] [place] Neutrophils/100 WBC (Bld) 54.3 % Normal [facility] Comment on above: Order Comment: Speci men Type: BLOOD SPECIMENOrdering Facility: [facility] Address: [address] [place] [address] Performed By: #### 5 7021-8 ####[facility] LABORATORYCLIA [id number] [place] [address] [place] Nucleated RBC (Bld) [#/Vol] 10*3/uL Normal <0.01 [facility] Comment on above: Order Comment: Speci men Type: BLOOD SPECIMENOrdering Facility: [facility] Address: [address] [place] [address] Performed By: #### 5 7021-8 ####[place] LABORATORYCLIA [id number] [address] [place] [facility] Nucleated RBC/100 WBC (Bld) [Ratio] 0.0 /100 WBC Normal [facility] Comment on above: Order Comment: Speci men Type: BLOOD SPECIMENOrdering Facility: [facility] Address: [address] [place] [address] Performed By: #### 5 7021-8 ####[place] LABORATORYCLIA [id number] [place] [address] [place] Platelet mean volume (Bld) [Entitic vol] 10.8 fL Normal 9.0-12.7 [facility] Comment on above: Order Comment: Speci men Type: BLOOD SPECIMENOrdering Facility: [facility] Address: [address] [place] [address] Performed By: #### 5 7021-8 ####[place] LABORATORYCLIA [id number] [place] [address] [place] Platelets (Bld) [#/Vol] 187 10*3/uL Normal 150-400 [facility] Comment on above: Order Comment: Speci men Type: BLOOD SPECIMENOrdering Facility: [facility] Address: [address] [place] [address] Performed By: #### 5 7021-8 ####[place] LABORATORYCLIA [id number] [place] [address] [place] RBC (Bld) [#/Vol] 4.06 10*6/uL Low 4.20-6.00 [facility] Comment on above: Order Comment: Specbasil powers Type: BLOOD SPECIMENOrdering Facility: [facility] Address: [address] [place] [address] Performed By: #### 5 7021-8 ####[facility] LABORATORYCLIA [id number] [address] WBC (Bld) [#/Vol] 6.59 10*3/uL Normal 3.70-11.00 [facility] Comment on above: Order Comment: Speci men Type: BLOOD SPECIMENOrdering Facility: [facility] Address: [address] [place] [address] Performed By: #### 5 7021-8 ####[place] LABORATORYCLIA [id number] [address] CNDSon 06-23-2024 CNDS HNO ID: [id number] Author: LASHONDA DELGADO MD Service: Colorectal Author [...] Your Medications These medications were sent to [facility] - [place] [address] - [address] - [phone] [place] [address] methocarbamol 500 mg tablet Future Appointments: Future Appointments Date Time Provider Department Center 07/05/2024 10:40 AM 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 APRN.DIETETIC ASSISTANT [id number] [facility] You will receive a phone call from our clinic nurse to check in on you in 5-7 days from discharge before your follow up appointment. Signed by Physician: Lashonda Delgado MD Normal [facility] Magnesium SerPl-mCncon 06-23 Magnesium [Mass/Vol] 2.1 mg/dL Normal 1.7-2.3 [facility] Comment on above: Order Comment: Speci men Type: BLOOD SPECIMENOrdering Facility: [facility] Address: [address] [place], [place] [address] [address] Performed By: #### 2 4321-2, 20851-6, 2777-1 ####[place] LABORATORYCLIA [id number] [place] [address] [place] Phosphate SerPl-mCncon 06-23 Phosphate [Mass/Vol] 3.2 mg/dL Normal 2.7-4.8 [facility] Comment on above: Order Comment: Speci men Type: BLOOD SPECIMENOrdering Facility: [facility] Address: [address] [place] [address] Performed By: #### 2 4321-2, , 2776-05 ####[facility] LABORATORYCLIA [id number] [place] [address] [place] Basic metabolic 2000 panelon 06-22-2024 Anion gap [Moles/Vol] 9 mmol/L Normal 8-15 [facility] Comment on above: Order Comment: Speci men Type: BLOOD SPECIMENOrdering Facility: [facility] Address: [address] [place] [address] Performed By: #### 2 4321-2, 2776-05, ####[facility] LABORATORYCLIA [id number] [place] [address] [place] Calcium [Mass/Vol] 8.9 mg/dL Normal 8.5-10.2 [facility] Comment on above: Order Comment: Speci men Type: BLOOD SPECIMENOrdering Facility: [facility] Address: [address] [place] [address] Performed By: #### 2 4321-2, 2776-05, ####[facility] LABORATORYCLIA [id number] [place] [address] [place] Chloride [Moles/Vol] 103 mmol/L Normal 98-107 [facility] Comment on above: Order Comment: Speci men Type: BLOOD SPECIMENOrdering Facility: [facility] Address: [address] [place] [address] Performed By: #### 2 4321-2, 2776-05, ####[facility] LABORATORYCLIA [id number] [place] [address] [place] CO2 [Moles/Vol] 24 mmol/L Normal 22-30 [facility] Comment on above: Order Comment: Speci men Type: BLOOD SPECIMENOrdering Facility: [facility] Address: [address] [place] [address] Performed By: #### 2 4321-2, 2777-1, ####[place] [facility]ORATORYCLIA [id number] [place] [address] [place] Creatinine [Mass/Vol] 0.93 mg/dL Normal 0.73-1.22 [facility] Comment on above: Order Comment: Ara powers Type: BLOOD SPECIMENOrdering Facility: [facility] Address: [address] [place] [address] Performed By: #### 2 4321-2, 2777-1, ####[place] [facility]ORATORYCLIA [id number] [place] [address] [place] Creatinine and Glomerular filtration rate.predicted panel (S/P/Bld) 98 mL/min/1.73m??? Normal >=60 [facility] Comment on above: Order Comment: Ara powers Type: BLOOD SPECIMENOrdering Facility: [facility] Address: [address] [place] [address] Result Comment: Dee mated Glomerular Filtration Rate [...] actual GFR. Performed By: #### 2 4321-2, 2777-, ####[place] [facility]ORATORYCLIA [id number] [place] [address] [place] Glucose [Mass/Vol] 107 mg/dL High 74-99 [facility] Comment on above: Order Comment: Speci men Type: BLOOD SPECIMENOrdering Facility: [facility] Address: [address] [place] [address] Result Comment: The [place] [employer] (ADA) provides guidance for cutoff [...] Standards of Medical Care in Diabetes 2016, [place] [employer]. Diabetes Care. 2016.39(Suppl 1). Performed By: #### 2 4321-2, 2776-05, ####[place] [facility]ORATORYCLIA [id number] [place] [id number] [place] Potassium [Moles/Vol] 4.6 mmol/L Normal 3.7-5.1 [facility] Comment on above: Order Comment: Ara powers Type: BLOOD SPECIMENOrdering Facility: [facility] Address: [address] [place] [address] Performed By: #### 2 4321-2, 2776-05, ####[place] [facility]ORATORYCLIA [id number] [place] [id number] [place] Sodium [Moles/Vol] 136 mmol/L Normal 136-144 [facility] Comment on above: Order Comment: Ara powers Type: BLOOD SPECIMENOrdering Facility: [facility] Address: [address] [place] [address] Performed By: #### 2 4321-2, 2776-05, ####[place] [facility]ORATORYCLIA [id number] [place] [id number] [place] Urea nitrogen [Mass/Vol] 13 mg/dL Normal 9-24 [facility] Comment on above: Order Comment: Ara powers Type: BLOOD SPECIMENOrdering Facility: [facility] Address: [address] [place] [address] Performed By: #### 2 4321-2, 2776-05, ####[place] [facility]ORATORYCLIA [id number] [place] [id number] [place] CBC W Auto Differential pane l (Bld)on 06-22-2024 Basophils (Bld) [#/Vol] 0.03 10*3/uL Normal <0.11 [facility] Comment on above: Order Comment: Speci men Type: BLOOD SPECIMENOrdering Facility: [facility] Address: [address] [place] [address] Performed By: #### 5 7021-8 ####[facility] LABORATORYCLIA [id number] [place] [address] [place] Basophils/100 WBC (Bld) 0.3 % Normal [facility] Comment on above: Order Comment: Speci men Type: BLOOD SPECIMENOrdering Facility: [facility] Address: [address] [place] [address] Performed By: #### 5 7021-8 ####[facility] LABORATORYCLIA [id number] [address] [place] Differential cell count method Nom (Bld) Auto Normal [facility] Comment on above: Order Comment: Speci men Type: BLOOD SPECIMENOrdering Facility: [facility] Address: [address] [place] [address] Performed By: #### 5 7021-8 ####[facility] LABORATORYCLIA [id number] [place] [address] [place] Eosinophils (Bld) [#/Vol] 0.12 10*3/uL Normal <0.46 [facility] Comment on above: Order Comment: Speci men Type: BLOOD SPECIMENOrdering Facility: [facility] Address: [address] [place] [address] Performed By: #### 5 7021-8 ####[facility] LABORATORYCLIA [id number] [address] [place] Eosinophils/100 WBC (Bld) 1.4 % Normal [facility] Comment on above: Order Comment: Speci men Type: BLOOD SPECIMENOrdering Facility: [facility] Address: [address] [place] [address] Performed By: #### 5 7021-8 ####[facility] LABORATORYCLIA [id number] [place] [address] [place] Erythrocyte distribution width (RBC) [Ratio] 14.6 % Normal 11.5-15.0 [facility] Comment on above: Order Comment: Speci men Type: BLOOD SPECIMENOrdering Facility: [facility] Address: [address] [place] [address] Performed By: #### 5 7021-8 ####[facility] LABORATORYCLIA [id number] [place] [address] [place] Hematocrit (Bld) [Volume fraction] 40.4 % Normal 39.0-51.0 [facility] Comment on above: Order Comment: Speci men Type: BLOOD SPECIMENOrdering Facility: [facility] Address: [address] [place] [address] Performed By: #### 5 7021-8 ####[facility] LABORATORYCLIA [id number] [place] [address] [place] Hemoglobin (Bld) [Mass/Vol] 12.8 g/dL Low 13.0-17.0 [facility] Comment on above: Order Comment: Speci men Type: BLOOD SPECIMENOrdering Facility: [facility] Address: [address] [place] [address] Performed By: #### 5 7021-8 ####[facility] LABORATORYCLIA [id number] [place] [address] [place] Immature granulocytes (Bld) [#/Vol] 0.05 10*3/uL Normal <0.10 [facility] Comment on above: Order Comment: Speci men Type: BLOOD SPECIMENOrdering Facility: [facility] Address: [address] [place] [address] Performed By: #### 5 7021-8 ####[facility] LABORATORYCLIA [id number] [address] [place] Immature granulocytes/100 WBC (Bld) 0.6 % Normal [facility] Comment on above: Order Comment: Speci men Type: BLOOD SPECIMENOrdering Facility: [facility] Address: [address] [place] [address] Performed By: #### 5 7021-8 ####[facility] LABORATORYCLIA [id number] [place] [address] [place] Lymphocytes (Bld) [#/Vol] 1.14 10*3/uL Normal 1.00-4.00 [facility] Comment on above: Order Comment: Speci men Type: BLOOD SPECIMENOrdering Facility: [facility] Address: [address] [place] [address] Performed By: #### 5 7021-8 ####[facility] LABORATORYCLIA [id number] [address] [place] Lymphocytes/100 WBC (Bld) 13.1 % Normal [facility] Comment on above: Order Comment: Speci men Type: BLOOD SPECIMENOrdering Facility: [facility] Address: [address] [place] [address] Performed By: #### 5 7021-8 ####[facility] LABORATORYCLIA [id number] [place] [address] [place] MCH (RBC) [Entitic mass] 29.5 pg Normal 26.0-34.0 [facility] Comment on above: Order Comment: Speci men Type: BLOOD SPECIMENOrdering Facility: [facility] Address: [address] [place] [address] Performed By: #### 5 7021-8 ####[facility] LABORATORYCLIA [id number] [address] [place] MCHC (RBC) [Mass/Vol] 31.7 g/dL Normal 30.5-36.0 [facility] Comment on above: Order Comment: Speci men Type: BLOOD SPECIMENOrdering Facility: [facility] Address: [address] [place] [address] Performed By: #### 5 7021-8 ####[facility] LABORATORYCLIA [id number] [address] [place] MCV (RBC) [Entitic vol] 93.1 fL Normal 80.0-100.0 [facility] Comment on above: Order Comment: Speci men Type: BLOOD SPECIMENOrdering Facility: [facility] Address: [address] [place] [address] Performed By: #### 5 7021-8 ####[facility] LABORATORYCLIA [id number] [place] [id number] [place] Monocytes (Bld) [#/Vol] 1.05 10*3/uL High <0.87 [facility] Comment on above: Order Comment: Speci men Type: BLOOD SPECIMENOrdering Facility: [facility] Address: [address] [place] [address] Performed By: #### 5 7021-8 ####[facility] LABORATORYCLIA [id number] [place] [id number] [place] Monocytes/100 WBC (Bld) 12.1 % Normal [facility] Comment on above: Order Comment: Speci men Type: BLOOD SPECIMENOrdering Facility: [facility] Address: [address] [place] [address] Performed By: #### 5 7021-8 ####[facility] LABORATORYCLIA [id number] [place] [address] [place] Neutrophils (Bld) [#/Vol] 6.31 10*3/uL Normal 1.45-7.50 [facility] Comment on above: Order Comment: Speci men Type: BLOOD SPECIMENOrdering Facility: [facility] Address: [address] [place] [address] Performed By: #### 5 7021-8 ####[facility] LABORATORYCLIA [id number] [place] [id number] [place] Neutrophils/100 WBC (Bld) 72.5 % Normal [facility] Comment on above: Order Comment: Speci men Type: BLOOD SPECIMENOrdering Facility: [facility] Address: [address] [place] [address] Performed By: #### 5 7021-8 ####[facility] LABORATORYCLIA [id number] [place] [id number] [place] Nucleated RBC (Bld) [#/Vol] 10*3/uL Normal <0.01 [facility] Comment on above: Order Comment: Speci men Type: BLOOD SPECIMENOrdering Facility: [facility] Address: [address] [place] [address] Performed By: #### 5 7021-8 ####[place] [facility]ORATORYCLIA [id number] [place] [id number] [place] Nucleated RBC/100 WBC (Bld) [Ratio] 0.0 /100 WBC Normal [facility] Comment on above: Order Comment: Speci men Type: BLOOD SPECIMENOrdering Facility: [facility] Address: [address] [place] [address] Performed By: #### 5 7021-8 ####[place] [facility]ORATORYCLIA [id number] [place] [id number] [place] Platelet mean volume (Bld) [Entitic vol] 10.7 fL Normal 9.0-12.7 [facility] Comment on above: Order Comment: Speci men Type: BLOOD SPECIMENOrdering Facility: [facility] Address: [address] [place] [address] Performed By: #### 5 7021-8 ####[place] [facility]ORATORYCLIA [id number] [place] [address] [place] Platelets (Bld) [#/Vol] 192 10*3/uL Normal 150-400 [facility] Comment on above: Order Comment: Speci men Type: BLOOD SPECIMENOrdering Facility: [facility] Address: [address] [place] [address] Performed By: #### 5 7021-8 ####[place] [facility]ORATORYCLIA [id number] [place] [id number] [place] RBC (Bld) [#/Vol] 4.34 10*6/uL Normal 4.20-6.00 [facility] Comment on above: Order Comment: Speci men Type: BLOOD SPECIMENOrdering Facility: [facility] Address: [address] [place] [address] Performed By: #### 5 7021-8 ####[place] [facility]ORATORYCLIA [id number] [place] [id number] [place] WBC (Bld) [#/Vol] 8.70 10*3/uL Normal 3.70-11.00 [facility] Comment on above: Order Comment: Speci men Type: BLOOD SPECIMENOrdering Facility: [facility] Address: [address] [place] [address] Performed By: #### 5 7021-8 ####[facility] LABORATORYCLIA [id number] [place] [id number] [place] Magnesium SerPl-mCncon 06-22 Magnesium [Mass/Vol] 2.1 mg/dL Normal 1.7-2.3 [facility] Comment on above: Order Comment: Speci men Type: BLOOD SPECIMENOrdering Facility: [facility] Address: [address] [place] [address] Performed By: #### 2 4321-2, 2777-, 17613-1 ####[facility] LABORATORYCLIA [id number] [place] [id number] [place] Phosphate SerPl-mCncon 06-22 Phosphate [Mass/Vol] 3.8 mg/dL Normal 2.7-4.8 [facility] Comment on above: Order Comment: Speci men Type: BLOOD SPECIMENOrdering Facility: [facility] Address: [address] [place] [address] Performed By: #### 2 4321-2, 27711-21, ####[facility] LABORATORYCLIA [id number] [place] [id number] [place] ANES POSTPROC EVALon 025 ANES POSTPROC EVAL HNO ID: [id number] Author: OLGA LIDIA [place]ITE[place] MD Service: Anesthesiology [...] June 21, 2024 TIME: 5:30 PM CSN: [id number] [facility] ANES PRE-OPon 06-21-2024 ANES PRE-OP HNO ID: [id number] Author: YU BERRIOS MD Service: Anesthesiology Author Type: Anesthesiologist Type: Anesthesia Preprocedure Evaluation Filed: 06/21/2024 15:44 Note Text: ANESTHESIOLOGY DAY OF SURGERY NOTE : 1970 Procedure Information Date/Time: 06/21/24 1500 Procedure: EXPLORATORY LAPAROTOMY (Abdomen) Location: OR07 / OR Surgeons: Donis Carias MD Estimated body [...] June 21, 2024 TIME: 3:43 PM CSN: [id number] Normal [facility] CBC panel Auto (Bld)on 06-21 Erythrocyte distribution width (RBC) [Ratio] 14.7 % Normal 11.5-15.0 [facility] Comment on above: Order Comment: Speci men Type: BLOOD SPECIMENOrdering Facility: [facility] Address: [address] [place] [address] Performed By: #### 5 8410-2 ####[place] [facility]ORATORYCLIA [id number] [place] [address] [place] Hematocrit (Bld) [Volume fraction] 45.2 % Normal 39.0-51.0 [facility] Comment on above: Order Comment: Speci men Type: BLOOD SPECIMENOrdering Facility: [facility] Address: [address] [place] [address] Performed By: #### 5 8410-2 ####[place] [facility]ORATORYCLIA [id number] [place] [id number] [place] Hemoglobin (Bld) [Mass/Vol] 14.3 g/dL Normal 13.0-17.0 [facility] Comment on above: Order Comment: Speci men Type: BLOOD SPECIMENOrdering Facility: [facility] Address: [address] [place] [address] Performed By: #### 5 8410-2 ####[facility] LABORATORYCLIA [id number] [place] [id number] [facility] MCH (RBC) [Entitic mass] 29.4 pg Normal 26.0-34.0 [facility] Comment on above: Order Comment: Speci men Type: BLOOD SPECIMENOrdering Facility: [facility] Address: [address] [place] [address] Performed By: #### 5 8410-2 ####[facility] LABORATORYCLIA [id number] [address] [place] MCHC (RBC) [Mass/Vol] 31.6 g/dL Normal 30.5-36.0 [facility] Comment on above: Order Comment: Speci men Type: BLOOD SPECIMENOrdering Facility: [facility] Address: [address] [place] [address] Performed By: #### 5 8410-2 ####[facility] LABORATORYCLIA [id number] [address] [place] MCV (RBC) [Entitic vol] 93.0 fL Normal 80.0-100.0 [facility] Comment on above: Order Comment: Speci men Type: BLOOD SPECIMENOrdering Facility: [facility] Address: [address] [place] [address] Performed By: #### 5 8410-2 ####[facility] LABORATORYCLIA [id number] [address] [place] Nucleated RBC (Bld) [#/Vol] 10*3/uL Normal <0.01 [facility] Comment on above: Order Comment: Speci men Type: BLOOD SPECIMENOrdering Facility: [facility] Address: [address] [place] [address] Performed By: #### 5 8410-2 ####[place] LABORATORYCLIA [id number] [address] [place] Platelet mean volume (Bld) [Entitic vol] 11.0 fL Normal 9.0-12.7 [facility] Comment on above: Order Comment: Speci men Type: BLOOD SPECIMENOrdering Facility: [facility] Address: [address] [place] [address] Performed By: #### 5 8410-2 ####[facility] LABORATORYCLIA [id number] [place] [id number] [facility] Platelets (Bld) [#/Vol] 222 10*3/uL Normal 150-400 [facility] Comment on above: Order Comment: Speci men Type: BLOOD SPECIMENOrdering Facility: [facility] Address: [address] [place] [address] Performed By: #### 5 8410-2 ####[facility] LABORATORYCLIA [id number] [address] [place] RBC (Bld) [#/Vol] 4.86 10*6/uL Normal 4.20-6.00 [facility] Comment on above: Order Comment: Speci men Type: BLOOD SPECIMENOrdering Facility: [facility] Address: [address] [place] [address] Performed By: #### 5 8410-2 ####[facility] LABORATORYCLIA [id number] [place] [id number] [place] WBC (Bld) [#/Vol] 7.87 10*3/uL Normal 3.70-11.00 [facility] Comment on above: Order Comment: Speci men Type: BLOOD SPECIMENOrdering Facility: [facility] Address: [address] [place] [address] Performed By: #### 5 8410-2 ####[facility] LABORATORYCLIA [id number] [place] [id number] [facility] [place] Rosemarie 06-21-2024 [facility] Telephone ([facility]) PIPER RODRÍGUEZ ([id number]) 1970 Gage Date Time Provider Department 06/21/24 DONIS CARIAS [facility] During your visit today, we recorded [...] for his appointment tomorrow vs going to [place] [facility]. Ultimately, he thinks he will go to [place] [facility]. Allergies As of Date: 06/21/2024 (No Known Allergies) Date Reviewed: 06/15/2024 Reviewed by: Mami Bustos RN - Fully Assessed Prescriptions as of 06/21/2024 [...] Status:Closed by JOCELYN CANTRELL on 06/21/24 Normal [facility] metabolic 2000 panelon 06-21-2024 Albumin [Mass/Vol] 4.2 g/dL Normal 3.9-4.9 [facility] Comment on above: Order Comment: Speci men Type: BLOOD SPECIMENOrdering Facility: [facility] Address: [address] [place] [address] Performed By: #### 1 9123-9, 93995-0 ####[place] LABORATORYCLIA [id number] [place] [address] [place] ALP [Catalytic activity/Vol] 72 U/L Normal 38-113 [facility] Comment on above: Order Comment: Speci men Type: BLOOD SPECIMENOrdering Facility: [facility] Address: [address] [place] [address] Performed By: #### 1 9123-9, 85470-1 ####[place] LABORATORYCLIA [id number] [place] [address] [place] ALT [Catalytic activity/Vol] 91 U/L High 10-54 [facility] Comment on above: Order Comment: Speci men Type: BLOOD SPECIMENOrdering Facility: [facility] Address: [address] [place] [address] Performed By: #### 1 9123-9, 04560-2 ####[place] LABORATORYCLIA [id number] [place] [address] [place] Anion gap [Moles/Vol] 11 mmol/L Normal 8-15 [facility] Comment on above: Order Comment: Speci men Type: BLOOD SPECIMENOrdering Facility: [facility] Address: [address] [place] [address] Performed By: #### 1 23-9, ####[facility] LABORATORYCLIA [id number] [place] [id number] [place] AST [Catalytic activity/Vol] 58 U/L High 14-40 [facility] Comment on above: Order Comment: Speci men Type: BLOOD SPECIMENOrdering Facility: [facility] Address: [address] [place] [address] Performed By: #### 1 23-9, ####[facility] LABORATORYCLIA [id number] [place] [id number] [place] Bilirubin [Mass/Vol] 0.3 mg/dL Normal 0.2-1.3 [facility] Comment on above: Order Comment: Speci men Type: BLOOD SPECIMENOrdering Facility: [facility] Address: [address] [place] [address] Performed By: #### 1 23-9, ####[facility] LABORATORYCLIA [id number] [place] [address] [place] Calcium [Mass/Vol] 9.6 mg/dL Normal 8.5-10.2 [facility] Comment on above: Order Comment: Speci men Type: BLOOD SPECIMENOrdering Facility: [facility] Address: [address] [place] [address] Performed By: #### 1 23-9, ####[facility] LABORATORYCLIA [id number] [place] [id number] [place] Chloride [Moles/Vol] 99 mmol/L Normal 98-107 [facility] Comment on above: Order Comment: Speci men Type: BLOOD SPECIMENOrdering Facility: [facility] Address: [address] [place] [address] Performed By: #### 1 9123-9, ####[facility] LABORATORYCLIA [id number] [place] [id number] [place] CO2 [Moles/Vol] 28 mmol/L Normal 22-30 [facility] Comment on above: Order Comment: Speci men Type: BLOOD SPECIMENOrdering Facility: [facility] Address: [address] [place] [address] Performed By: #### 1 9123-9, 30330-0 ####[place] LABORATORYCLIA [id number] [place] [id number] [place] Creatinine [Mass/Vol] 0.99 mg/dL Normal 0.73-1.22 [facility] Comment on above: Order Comment: Williani men Type: BLOOD SPECIMENOrdering Facility: [facility] Address: [address] [place] [address] Performed By: #### 1 9123-9, ####[place] LABORATORYCLIA [id number] [place] [id number] [place] Creatinine and Glomerular filtration rate.predicted panel (S/P/Bld) 91 mL/min/1.73m??? Normal >=60 [facility] Comment on above: Order Comment: Ara gio Type: BLOOD SPECIMENOrdering Facility: [facility] Address: [address] [place] [address] Result Comment: Dee mated Glomerular Filtration Rate [...] actual GFR. Performed By: #### 1 9123-9, ####[place] LABORATORYCLIA [id number] [place] [id number] [place] Glucose [Mass/Vol] 102 mg/dL High 74-99 [facility] Comment on above: Order Comment: Ara powers Type: BLOOD SPECIMENOrdering Facility: [facility] Address: [address] [place] [address] Result Comment: The [place] [employer] Association (ADA) provides guidance for cutoff [...] Standards of Medical Care in Diabetes 2016, [place] [employer]. Diabetes Care. 2016.39(Suppl 1). Performed By: #### 1 23-9, ####[facility] LABORATORYCLIA [id number] [place] [id number] [place] Potassium [Moles/Vol] 4.3 mmol/L Normal 3.7-5.1 [facility] Comment on above: Order Comment: Ara powers Type: BLOOD SPECIMENOrdering Facility: [facility] Address: [address] [place] [address] Performed By: #### 1 23, ####[facility] LABORATORYCLIA [id number] [place] [id number] [place] Protein [Mass/Vol] 8.0 g/dL Normal 6.3-8.0 [facility] Comment on above: Order Comment: Ara powers Type: BLOOD SPECIMENOrdering Facility: [facility] Address: [address] [place] [address] Performed By: #### 1 239, ####[facility] LABORATORYCLIA [id number] [place] [id number] [place] Sodium [Moles/Vol] 138 mmol/L Normal 136-144 [facility] Comment on above: Order Comment: Ara powers Type: BLOOD SPECIMENOrdering Facility: [facility] Address: [address] [place] [address] Performed By: #### 1 91239, ####[facility] LABORATORYCLIA [id number] [place] [id number] [place] Urea nitrogen [Mass/Vol] 14 mg/dL Normal 9-24 [facility] Comment on above: Order Comment: Speci men Type: BLOOD SPECIMENOrdering Facility: [facility] Address: [address] [place] [address] Performed By: #### 1 9123-9, 84690-1 ####[place] LABORATORYCLIA [id number] [place] [address] [place] ED NOTEon 06-21-2024 ED NOTE HNO ID: [id number] Author: JOSÉ MIGUEL LARA RN Service: ? Author Type: Registered Nurse Type: ED Notes Filed: 06/21/2024 13:48 Note Text: Bed: 55-ED Expected date: Expected time: Means of arrival: Comments: triage Normal [facility] ED PROV NOTEon 06-21-2024 ED PROV NOTE HNO ID: [id number] Author: GINO ANGEL MD Service: Emergency Medicine [...] on June [address] Carias at [facility]. States had been doing well. States that yesterday the wound opened minimally. He presented to [facility] for evaluation. States the physician said that [...] at bed (more content not included)... Normal [facility] ED Triage Noteon 06-21-2024 ED Triage Note HNO ID: [id number] Author: ETHAN QUINTERO DO Service: Emergency Medicine [...] well as MDM SIGNATURE: DO Andrea Vee [facility] EKGon 06-21-2024 Electrocardiogram Ventricular Rate : 4 7 BPM Atrial Rate : 48 BPM P-R Interval : 173 ms QRS Duration : 105 ms Q-T Interval : 447 ms QTC Calculation(Bazett) : 396 ms Calculated P [place] : 44 degrees Calculated R [place] : 40 degrees Calculated T [place] : 58 degrees Sinus bradycardia Otherwise Normal ECG Confirmed by MD ANGEL JAMES ([id number]) on 06/21/2024 2:14:56 PM NAME : PIPER RODRÍGUEZ PID : [id number] : 1970 Gender : Male Race : ORD : Procedure Date : Jun 21 2024 14:04:20 Edit Date : Jun 21 2024 14:14:59 Diagnosis: Sinus bradycardia Otherwise Normal ECG Confirmed by MD ANGEL JAMES ([id number]) on 06/21/2024 2:14:56 PM Test Reason : Location : 402 : ED fved55 Overread By : MD ANGEL JAMES Edited By : MD ANGEL JAMES Referred By : , Acquired by : [id number], Normal [facility] HISTORY PHYSICALon HISTORY PHYSICAL HNO ID: [id number] Author: MAIKEL JUSTICE MD Service: Colorectal Author [...] contents. They were worried so presented to [place] [facility]. Pt's showed me a photo of [...] concerns and was told to present to [place] [facility] for further evaluation. Per pt has [...] DATE: June 21, 2024 TIME: 2:56 PM [facility] Magnesium SerPl-mCncon 06-21 Magnesium [Mass/Vol] 2.3 mg/dL Normal 1.7-2.3 [facility] Comment on above: Order Comment: Speci men Type: BLOOD SPECIMENOrdering Facility: [facility] Address: [address] [place] [address] Performed By: #### 1 9123-9, 74859-9 ####[place] LABORATORYCLIA [id number] [address] NURSING PROGon 06-21-2024 NURSING PROG HNO ID: [id number] Author: OLYA SIEGEL RN Service: Nursing Author Type: Registered Nurse Type: Nursing Progress Note Filed: 06/21/2024 19:56 Note Text: Transfer Note: PATIENT NAME: Piper Rodríguez Patient Location: [place] [address] [address] Room: [place] [address] Patient transferred into room/unit [facility] in stable condition. Actions taken: Room oriented, call light in reach, family at beside. 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 She states it has opened up. Asking to speak to nurse to find out if they should go to local ER # [phone] Jocelyn Cantrell RN 06/20/2024 3:17 PM Signed [...] Encounter Status:Closed by JOCELYN CANTRELL on 06/20/24 Normal [facility] CNCOon 06-19-2024 CNCO Letter Text Normal [facility] CNPNon 06-19-2024 CNPN Telephone ([facility]) PIPER RODRÍGUEZ ([id number]) 1970 M Date Time Provider Department 06/19/24 DONIS CARIAS [facility] During your visit today, we recorded the following information about you: Maura Casiano 06/19/2024 1:29 PM Signed Patient had surgery on 06/14/24. He is asking to speak to a nurse about his restrictions and what he can and cannot do # [phone] Jocelyn Cantrell, RN 06/19/2024 1:48 PM Signed [...] Fully Assessed Reason for Visit: Patient Question [8862] Prescriptions as of 06/19/2024 - acetaminophen (TYLENOL) [...] Status:Closed by JOCELYN CANTRELL on 06/19/24 Normal [facility] Basic metabolic 2000 panelon 06-16-2024 Anion gap [Moles/Vol] 12 mmol/L Normal 8-15 [facility] Comment on above: Order Comment: Speci men Type: BLOOD SPECIMENOrdering Facility: [facility] Address: [address] [place] [address] Performed By: #### 2 4321-2 ####[facility] LABORATORYCLIA [id number] [place] [address] [place] Calcium [Mass/Vol] 8.9 mg/dL Normal 8.5-10.2 [facility] Comment on above: Order Comment: Speci men Type: BLOOD SPECIMENOrdering Facility: [facility] Address: [address] [place] [address] Performed By: #### 2 4321-2 ####[place] LABORATORYCLIA [id number] [place] [id number] [place] Chloride [Moles/Vol] 103 mmol/L Normal 98-107 [facility] Comment on above: Order Comment: Speci men Type: BLOOD SPECIMENOrdering Facility: [facility] Address: [address] [place] [address] Performed By: #### 2 4321-2 ####[facility] LABORATORYCLIA [id number] [place] [id number] [place] CO2 [Moles/Vol] 22 mmol/L Normal 22-30 [facility] Comment on above: Order Comment: Speci men Type: BLOOD SPECIMENOrdering Facility: [facility] Address: [address] [place] [address] Performed By: #### 2 4321-2 ####[facility] LABORATORYCLIA [id number] [place] [id number] [place] Creatinine [Mass/Vol] 0.90 mg/dL Normal 0.73-1.22 [facility] Comment on above: Order Comment: Speci men Type: BLOOD SPECIMENOrdering Facility: [facility] Address: [address] [place] [address] Performed By: #### 2 4321-2 ####[place] LABORATORYCLIA [id number] [place] [id number] [facility] [place] Creatinine and Glomerular filtration rate.predicted panel (S/P/Bld) 102 mL/min/1.73m??? Normal >=60 [facility] Comment on above: Order Comment: Speci men Type: BLOOD SPECIMENOrdering Facility: [facility] Address: [address] [place] [address] Result Comment: Dee mated Glomerular Filtration Rate [...] actual GFR. Performed By: #### 2 4321-2 ####[facility] LABORATORYCLIA [id number] [place] [id number] [place] Glucose [Mass/Vol] 162 mg/dL High 74-99 [facility] Comment on above: Order Comment: Speci men Type: BLOOD SPECIMENOrdering Facility: [facility] Address: [address] [place] [address] Result Comment: The [place] [employer] (ADA) provides guidance for cutoff [...] Standards of Medical Care in Diabetes 2016, [place] [employer]. Diabetes Care. 2016.39(Suppl 1). Performed By: #### 2 4321-2 ####[facility] LABORATORYCLIA [id number] [place] [id number] [place] Potassium [Moles/Vol] 4.4 mmol/L Normal 3.7-5.1 [facility] Comment on above: Order Comment: Williani men Type: BLOOD SPECIMENOrdering Facility: [facility] Address: [address] [place] [address] Performed By: #### 2 4321-2 ####[facility] LABORATORYCLIA [id number] [place] [address] [place] Sodium [Moles/Vol] 137 mmol/L Normal 136-144 [facility] Comment on above: Order Comment: Speci men Type: BLOOD SPECIMENOrdering Facility: [facility] Address: [address] [place] [address] Performed By: #### 2 4321-2 ####[facility] LABORATORYCLIA [id number] [place] [id number] [place] Urea nitrogen [Mass/Vol] 10 mg/dL Normal 02-14 [facility] Comment on above: Order Comment: Speci men Type: BLOOD SPECIMENOrdering Facility: [facility] Address: [address] [place] [address] Performed By: #### 2 4321-2 ####[facility] LABORATORYCLIA [id number] [place] [id number] [place] CBC W Auto Differential pane l (Bld)on 06-16-2024 Basophils (Bld) [#/Vol] 0.04 10*3/uL Normal <0.11 [facility] Comment on above: Order Comment: Speci men Type: BLOOD SPECIMENOrdering Facility: [facility] Address: [address] [place] [address] Performed By: #### 5 7021-8 ####[facility] LABORATORYCLIA [id number] [place] [address] [place] Basophils/100 WBC (Bld) 0.6 % Normal [facility] Comment on above: Order Comment: Speci men Type: BLOOD SPECIMENOrdering Facility: [facility] Address: [address] [place] [address] Performed By: #### 5 7021-8 ####[facility] LABORATORYCLIA [id number] [place] [address] [place] Differential cell count method Nom (Bld) Auto Normal [facility] Comment on above: Order Comment: Speci men Type: BLOOD SPECIMENOrdering Facility: [facility] Address: [address] [place] [address] Performed By: #### 5 7021-8 ####[facility] LABORATORYCLIA [id number] [place] [id number] [place] Eosinophils (Bld) [#/Vol] 0.16 10*3/uL Normal <0.46 [facility] Comment on above: Order Comment: Speci men Type: BLOOD SPECIMENOrdering Facility: [facility] Address: [address] [place] [address] Performed By: #### 5 7021-8 ####[facility] LABORATORYCLIA [id number] [place] [address] [place] Eosinophils/100 WBC (Bld) 2.4 % Normal [facility] Comment on above: Order Comment: Speci men Type: BLOOD SPECIMENOrdering Facility: [facility] Address: [address] [place] [address] Performed By: #### 5 7021-8 ####[facility] LABORATORYCLIA [id number] [place] [address] [place] Erythrocyte distribution width (RBC) [Ratio] 15.6 % High 11.5-15.0 [facility] Comment on above: Order Comment: Speci men Type: BLOOD SPECIMENOrdering Facility: [facility] Address: [address] [place] [address] Performed By: #### 5 7021-8 ####[facility] LABORATORYCLIA [id number] [place] Hematocrit (Bld) [Volume fraction] 44.0 % Normal 39.0-51.0 [facility] Comment on above: Order Comment: Speci men Type: BLOOD SPECIMENOrdering Facility: [facility] Address: [address] [place] [address] Performed By: #### 5 7021-8 ####[facility] LABORATORYCLIA [id number] [place] [address] [place] Hemoglobin (Bld) [Mass/Vol] 13.8 g/dL Normal 13.0-17.0 [facility] Comment on above: Order Comment: Speci men Type: BLOOD SPECIMENOrdering Facility: [facility] Address: [address] [place] [address] Performed By: #### 5 7021-8 ####[facility] LABORATORYCLIA [id number] [place] [address] [place] Immature granulocytes (Bld) [#/Vol] 0.03 10*3/uL Normal <0.10 [facility] Comment on above: Order Comment: Speci men Type: BLOOD SPECIMENOrdering Facility: [facility] Address: [address] [place] [address] Performed By: #### 5 7021-8 ####[facility] LABORATORYCLIA [id number] [place] [id number] [place] Immature granulocytes/100 WBC (Bld) 0.5 % Normal [facility] Comment on above: Order Comment: Speci men Type: BLOOD SPECIMENOrdering Facility: [facility] Address: [address] [place] [address] Performed By: #### 5 7021-8 ####[facility] LABORATORYCLIA [id number] [place] [address] [place] Lymphocytes (Bld) [#/Vol] 1.23 10*3/uL Normal 1.00-4.00 [facility] Comment on above: Order Comment: Speci men Type: BLOOD SPECIMENOrdering Facility: [facility] Address: [address] [place] [address] Performed By: #### 5 7021-8 ####[facility] LABORATORYCLIA [id number] [address] [place] Lymphocytes/100 WBC (Bld) 18.8 % Normal [facility] Comment on above: Order Comment: Speci men Type: BLOOD SPECIMENOrdering Facility: [facility] Address: [address] [place] [address] Performed By: #### 5 7021-8 ####[facility] LABORATORYCLIA [id number] [place] [address] [place] MCH (RBC) [Entitic mass] 29.9 pg Normal 26.0-34.0 [facility] Comment on above: Order Comment: Speci men Type: BLOOD SPECIMENOrdering Facility: [facility] Address: [address] [place] [address] Performed By: #### 5 7021-8 ####[facility] LABORATORYCLIA [id number] [address] [place] MCHC (RBC) [Mass/Vol] 31.4 g/dL Normal 30.5-36.0 [facility] Comment on above: Order Comment: Speci men Type: BLOOD SPECIMENOrdering Facility: [facility] Address: [address] [place] [address] Performed By: #### 5 7021-8 ####[facility] LABORATORYCLIA [id number] [place] [id number] [place] MCV (RBC) [Entitic vol] 95.4 fL Normal 80.0-100.0 [facility] Comment on above: Order Comment: Speci men Type: BLOOD SPECIMENOrdering Facility: [facility] Address: [address] [place] [address] Performed By: #### 5 7021-8 ####[facility] LABORATORYCLIA [id number] [place] [address] [place] Monocytes (Bld) [#/Vol] 0.76 10*3/uL Normal <0.87 [facility] Comment on above: Order Comment: Speci men Type: BLOOD SPECIMENOrdering Facility: [facility] Address: [address] [place] [address] Performed By: #### 5 7021-8 ####[facility] LABORATORYCLIA [id number] [place] [address] [place] Monocytes/100 WBC (Bld) 11.6 % Normal [facility] Comment on above: Order Comment: Speci men Type: BLOOD SPECIMENOrdering Facility: [facility] Address: [address] [place] [address] Performed By: #### 5 7021-8 ####[facility] LABORATORYCLIA [id number] [place] [address] [place] Neutrophils (Bld) [#/Vol] 4.32 10*3/uL Normal 1.45-7.50 [facility] Comment on above: Order Comment: Speci men Type: BLOOD SPECIMENOrdering Facility: [facility] Address: [address] [place] [address] Performed By: #### 5 7021-8 ####[facility] LABORATORYCLIA [id number] [place] [id number] [place] Neutrophils/100 WBC (Bld) 66.1 % Normal [facility] Comment on above: Order Comment: Speci men Type: BLOOD SPECIMENOrdering Facility: [facility] Address: [address] [place] [address] Performed By: #### 5 7021-8 ####[place] LABORATORYCLIA [id number] [place] [id number] [place] Nucleated RBC (Bld) [#/Vol] 10*3/uL Normal <0.01 [facility] Comment on above: Order Comment: Speci men Type: BLOOD SPECIMENOrdering Facility: [facility] Address: [address] [place] [address] Performed By: #### 5 7021-8 ####[place] LABORATORYCLIA [id number] [place] [address] [place] Nucleated RBC/100 WBC (Bld) [Ratio] 0.0 /100 WBC Normal [facility] Comment on above: Order Comment: Speci men Type: BLOOD SPECIMENOrdering Facility: [facility] Address: [address] [place] [address] Performed By: #### 5 7021-8 ####[place] LABORATORYCLIA [id number] [place] [address] [place] Platelet mean volume (Bld) [Entitic vol] 11.2 fL Normal 9.0-12.7 [facility] Comment on above: Order Comment: Speci men Type: BLOOD SPECIMENOrdering Facility: [facility] Address: [address] [place] [address] Performed By: #### 5 7021-8 ####[place] LABORATORYCLIA [id number] [place] [id number] [place] Platelets (Bld) [#/Vol] 191 10*3/uL Normal 150-400 [facility] Comment on above: Order Comment: Speci men Type: BLOOD SPECIMENOrdering Facility: [facility] Address: [address] [place] [address] Performed By: #### 5 7021-8 ####[place] LABORATORYCLIA [id number] [place] [id number] [place] RBC (Bld) [#/Vol] 4.61 10*6/uL Normal 4.20-6.00 [facility] Comment on above: Order Comment: Speci men Type: BLOOD SPECIMENOrdering Facility: [facility] Address: [address] [place] [address] Performed By: #### 5 7021-8 ####[facility] LABORATORYCLIA [id number] [address] [place] WBC (Bld) [#/Vol] 6.54 10*3/uL Normal 3.70-11.00 [facility] Comment on above: Order Comment: Speci men Type: BLOOD SPECIMENOrdering Facility: [facility] Address: [address] [place] [address] Performed By: #### 5 7021-8 ####[facility] LABORATORYCLIA [id number] [address] CNDSon 06-16-2024 CNDS HNO ID: [id number] Author: DONIS CARIAS MD Service: Colorectal Author [...] which included preparing to see the patient, [id number] patient care, completing clinical documentation, obtaining and/or reviewing separately obtained history, performing a medically appropriate examination, and care coordination (not separately reported). SIGNATURE: 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 APRN.DIETETIC ASSISTANT DATE: June 16, 2024 (more content not included)... Normal [facility] Basic metabolic 2000 panelon 06-15-2024 Anion gap [Moles/Vol] 13 mmol/L Normal 8-15 [facility] Comment on above: Order Comment: Speci men Type: BLOOD SPECIMENOrdering Facility: [facility] Address: [address] [place] [address] Performed By: #### 2 4321-2 ####[place] LABORATORYCLIA [id number] [place] [address] [place] Calcium [Mass/Vol] 8.9 mg/dL Normal 8.5-10.2 [facility] Comment on above: Order Comment: Speci men Type: BLOOD SPECIMENOrdering Facility: [facility] Address: [address] [place] [address] Performed By: #### 2 4321-2 ####[place] LABORATORYCLIA [id number] [place] [id number] [place] Chloride [Moles/Vol] 100 mmol/L Normal 98-107 [facility] Comment on above: Order Comment: Speci men Type: BLOOD SPECIMENOrdering Facility: [facility] Address: [address] [place] [address] Performed By: #### 2 4321-2 ####[place] LABORATORYCLIA [id number] [place] [address] [place] CO2 [Moles/Vol] 21 mmol/L Low 22-30 [facility] Comment on above: Order Comment: Speci men Type: BLOOD SPECIMENOrdering Facility: [facility] Address: [address] [place] [address] Performed By: #### 2 4321-2 ####[place] LABORATORYCLIA [id number] [place] [address] [place] Creatinine [Mass/Vol] 1.25 mg/dL High 0.73-1.22 [facility] Comment on above: Order Comment: Speci men Type: BLOOD SPECIMENOrdering Facility: [facility] Address: [address] [place] [address] Performed By: #### 2 4321-2 ####[place] LABORATORYCLIA [id number] [place] [id number] [place] Creatinine and Glomerular filtration rate.predicted panel (S/P/Bld) 69 mL/min/1.73m??? Normal >=60 [facility] Comment on above: Order Comment: Speci men Type: BLOOD SPECIMENOrdering Facility: [facility] Address: [address], [place] [address] Result Comment: Dee mated Glomerular Filtration Rate [...] Performed By: #### 2 4321-2 ####[facility] LABORATORYCLIA [id number] [place] [id number] [place] Glucose [Mass/Vol] 105 mg/dL High 74-99 [facility] Comment on above: Order Comment: Ara powers Type: BLOOD SPECIMENOrdering Facility: [facility] Address: [address] [place] [address] Result Comment: The [place] [employer] (ADA) provides guidance for cutoff [...] Standards of Medical Care in Diabetes 2016, [place] [employer]. Diabetes Care. 2016.39(Suppl 1). Performed By: #### 2 4321-2 ####[facility] LABORATORYCLIA [id number] [place] [id number] [place] Potassium [Moles/Vol] 4.8 mmol/L Normal 3.7-5.1 [facility] Comment on above: Order Comment: Ara powers Type: BLOOD SPECIMENOrdering Facility: [facility] Address: [address] [place] [address] Performed By: #### 2 4321-2 ####[facility] LABORATORYCLIA [id number] [place] [id number] [place] Sodium [Moles/Vol] 134 mmol/L Low 136-144 [facility] Comment on above: Order Comment: Speci men Type: BLOOD SPECIMENOrdering Facility: [facility] Address: [address] [place] [address] Performed By: #### 2 4321-2 ####[place] LABORATORYCLIA [id number] [place] [id number] [place] Urea nitrogen [Mass/Vol] 19 mg/dL Normal 9-24 [facility] Comment on above: Order Comment: Speci men Type: BLOOD SPECIMENOrdering Facility: [facility] Address: [address] [place] [address] Performed By: #### 2 4321-2 ####[place] LABORATORYCLIA [id number] [place] [address] [place] CBC W Auto Differential pane l (Bld)on 06-15-2024 Basophils (Bld) [#/Vol] 0.03 10*3/uL Normal <0.11 [facility] Comment on above: Order Comment: Speci men Type: BLOOD SPECIMENOrdering Facility: [facility] Address: [address] [place] [address] Performed By: #### 5 7021-8 ####[place] LABORATORYCLIA [id number] [place] [address] [place] Basophils/100 WBC (Bld) 0.3 % Normal [facility] Comment on above: Order Comment: Speci men Type: BLOOD SPECIMENOrdering Facility: [facility] Address: [address] [place] [address] Performed By: #### 5 7021-8 ####[place] LABORATORYCLIA [id number] [place] [address] [place] Differential cell count method Nom (Bld) Auto Normal [facility] Comment on above: Order Comment: Speci men Type: BLOOD SPECIMENOrdering Facility: [facility] Address: [address] [place] [address] Performed By: #### 5 7021-8 ####[place] [facility]ORATORYCLIA [id number] [place] [address] [place] Eosinophils (Bld) [#/Vol] 10*3/uL Normal <0.46 [facility] Comment on above: Order Comment: Speci men Type: BLOOD SPECIMENOrdering Facility: [facility] Address: [address] [place] [address] Performed By: #### 5 7021-8 ####[facility] LABORATORYCLIA [id number] [address] [place] Eosinophils/100 WBC (Bld) 0.2 % Normal [facility] Comment on above: Order Comment: Speci men Type: BLOOD SPECIMENOrdering Facility: [facility] Address: [address] [place] [address] Performed By: #### 5 7021-8 ####[facility] LABORATORYCLIA [id number] [address] Erythrocyte distribution width (RBC) [Ratio] 15.5 % High 11.5-15.0 [facility] Comment on above: Order Comment: Speci men Type: BLOOD SPECIMENOrdering Facility: [facility] Address: [address] [place] [address] Performed By: #### 5 7021-8 ####[facility] LABORATORYCLIA [id number] [address] Hematocrit (Bld) [Volume fraction] 41.5 % Normal 39.0-51.0 [facility] Comment on above: Order Comment: Speci men Type: BLOOD SPECIMENOrdering Facility: [facility] Address: [address] [place] [address] Performed By: #### 5 7021-8 ####[facility]ORATORYCLIA [id number] [address] [place] Hemoglobin (Bld) [Mass/Vol] 13.8 g/dL Normal 13.0-17.0 [facility] Comment on above: Order Comment: Speci men Type: BLOOD SPECIMENOrdering Facility: [facility] Address: [address] [place] [address] Performed By: #### 5 7021-8 ####[facility] LABORATORYCLIA [id number] [place] [address] [place] Immature granulocytes (Bld) [#/Vol] 0.06 10*3/uL Normal <0.10 [facility] Comment on above: Order Comment: Speci men Type: BLOOD SPECIMENOrdering Facility: [facility] Address: [address] [place] [address] Performed By: #### 5 7021-8 ####[facility] LABORATORYCLIA [id number] [place] [address] [place] Immature granulocytes/100 WBC (Bld) 0.6 % Normal [facility] Comment on above: Order Comment: Speci men Type: BLOOD SPECIMENOrdering Facility: [facility] Address: [address] [place] [address] Performed By: #### 5 7021-8 ####[facility] LABORATORYCLIA [id number] [address] [place] Lymphocytes (Bld) [#/Vol] 1.01 10*3/uL Normal 1.00-4.00 [facility] Comment on above: Order Comment: Speci men Type: BLOOD SPECIMENOrdering Facility: [facility] Address: [address] [place] [address] Performed By: #### 5 7021-8 ####[facility] LABORATORYCLIA [id number] [address] STATES [facility] Lymphocytes/100 WBC (Bld) 10.3 % Normal [facility] Comment on above: Order Comment: Speci men Type: BLOOD SPECIMENOrdering Facility: [facility] Address: [address] [place] [address] Performed By: #### 5 7021-8 ####[facility] LABORATORYCLIA [id number] [place] [id number] [place] MCH (RBC) [Entitic mass] 30.6 pg Normal 26.0-34.0 [facility] Comment on above: Order Comment: Speci men Type: BLOOD SPECIMENOrdering Facility: [facility] Address: [address] [place] [address] Performed By: #### 5 7021-8 ####[facility] LABORATORYCLIA [id number] [place] [address] [place] MCHC (RBC) [Mass/Vol] 33.3 g/dL Normal 30.5-36.0 [facility] Comment on above: Order Comment: Speci men Type: BLOOD SPECIMENOrdering Facility: [facility] Address: [address] [place] [address] Performed By: #### 5 7021-8 ####[facility] LABORATORYCLIA [id number] [place] [address] [place] MCV (RBC) [Entitic vol] 92.0 fL Normal 80.0-100.0 [facility] Comment on above: Order Comment: Speci men Type: BLOOD SPECIMENOrdering Facility: [facility] Address: [address] [place] [address] Performed By: #### 5 7021-8 ####[facility] LABORATORYCLIA [id number] [place] [address] [place] Monocytes (Bld) [#/Vol] 1.07 10*3/uL High <0.87 [facility] Comment on above: Order Comment: Speci men Type: BLOOD SPECIMENOrdering Facility: [facility] Address: [address] [place] [address] Performed By: #### 5 7021-8 ####[facility] LABORATORYCLIA [id number] [address] [place] Monocytes/100 WBC (Bld) 10.9 % Normal [facility] Comment on above: Order Comment: Speci men Type: BLOOD SPECIMENOrdering Facility: [facility] Address: [address] [place] [address] Performed By: #### 5 7021-8 ####[facility] LABORATORYCLIA [id number] [place] [id number] [place] Neutrophils (Bld) [#/Vol] 7.59 10*3/uL High 1.45-7.50 [facility] Comment on above: Order Comment: Speci men Type: BLOOD SPECIMENOrdering Facility: [facility] Address: [address] [place] [address] Performed By: #### 5 7021-8 ####[facility] LABORATORYCLIA [id number] [place] [id number] [place] Neutrophils/100 WBC (Bld) 77.7 % Normal [facility] Comment on above: Order Comment: Speci men Type: BLOOD SPECIMENOrdering Facility: [facility] Address: [address] [place] [address] Performed By: #### 5 7021-8 ####[facility] LABORATORYCLIA [id number] [place] [id number] [place] Nucleated RBC (Bld) [#/Vol] 10*3/uL Normal <0.01 [facility] Comment on above: Order Comment: Speci men Type: BLOOD SPECIMENOrdering Facility: [facility] Address: [address] [place] [address] Performed By: #### 5 7021-8 ####[facility] LABORATORYCLIA [id number] [place] [id number] [place] Nucleated RBC/100 WBC (Bld) [Ratio] 0.0 /100 WBC Normal [facility] Comment on above: Order Comment: Speci men Type: BLOOD SPECIMENOrdering Facility: [facility] Address: [address] [place] [address] Performed By: #### 5 7021-8 ####[facility] LABORATORYCLIA [id number] [place] [id number] [place] Platelet mean volume (Bld) [Entitic vol] 10.8 fL Normal 9.0-12.7 [facility] Comment on above: Order Comment: Speci men Type: BLOOD SPECIMENOrdering Facility: [facility] Address: [address] [place] [address] Performed By: #### 5 7021-8 ####[facility] LABORATORYCLIA [id number] [place] [id number] [place] Platelets (Bld) [#/Vol] 176 10*3/uL Normal 150-400 [facility] Comment on above: Order Comment: Speci men Type: BLOOD SPECIMENOrdering Facility: [facility] Address: [address] [place] [address] Performed By: #### 5 7021-8 ####[facility]ORATORYCLIA [id number] [place] [id number] [place] RBC (Bld) [#/Vol] 4.51 10*6/uL Normal 4.20-6.00 [facility] Comment on above: Order Comment: Speci men Type: BLOOD SPECIMENOrdering Facility: [facility] Address: [address] [place] [address] Performed By: #### 5 7021-8 ####[facility] LABORATORYCLIA [id number] [place] [id number] [facility] WBC (Bld) [#/Vol] 9.78 10*3/uL Normal 3.70-11.00 [facility] Comment on above: Order Comment: Speci men Type: BLOOD SPECIMENOrdering Facility: [facility] Address: [address] [place] [address] Performed By: #### 5 7021-8 ####[facility] LABORATORYCLIA [id number] [place] [id number] [facility] OF [place] NUTRITIONon 06-15-2024 NUTRITION HNO ID: [id number] Author: RADHIKA ARZATE RD Service: Nutrition Therapy [...] ARGELIA Zhang June 15, 2024 9:44 AM [facility] ANES POSTPROC EVALon 025 ANES POSTPROC EVAL HNO ID: [id number] Author: ILA MORTENSEN MD Service: Critical Care Author Type: Anesthesiologist Type: Anesthesia Postprocedure Evaluation Filed: 06/14/2024 16:00 Note Text: POST ANESTHESIA EVALUATION NOTE : 1970 Procedure Summary Date: 06/14/24 Room / Location: OR11 / FV OR Anesthesia Start: 0848 Anesthesia Stop: 1137 Procedure: LAPAROSCOPY COLECTOMY, PARTIAL, [...] June 14, 2024 TIME: 3:59 PM CSN: [id number] [facility] ANES PRE-OPon 06-14-2024 ANES PRE-OP HNO ID: [id number] Author: ILA MORTENSEN MD Service: Critical Care Author Type: Anesthesiologist Type: Anesthesia Preprocedure Evaluation Filed: 06/14/2024 09:24 Note Text: ANESTHESIOLOGY DAY OF SURGERY NOTE : 1970 Procedure Information Anesthesia Start Date/Time: 06/14/2448 Procedure: LAPAROSCOPY COLECTOMY, PARTIAL, W/ REMOVAL TERMINAL [...] ?F) 06/14/24 0811 SpO2 96 % 06/14/24 08 Facility-Administered Medications as of 06/14/2024 Medication Dose [...] June 14, 2024 TIME: 9:23 AM CSN: [id number] Normal [facility] MISMATCH REPAIR PROTEINS BY IHCon 06-14-2024 AP BIOMARKER DISCLAIMER Normal [facility] Comment on above: Order Comment: Speci men Type: TISSUE SPECIMENOrdering Facility: [facility] Address: [address] [place] [id number] Result Comment: Martin jo Developed Test (LDT) Disclaimer: Performance characteristics of immunohistochemical, immunofluorescent and chromogenic in-situ hybridization tests have been determined by the performing laboratory within [facility]???s [facility] Department ([facility], [facility], [facility], [facility], [facility], [facility], or [facility]) in a manner consistent with CLIA requirements. One or more of these tests have not been cleared or approved by the FDA. [facility] is regulated under CLIA as qualified to perform high-complexity testing. These tests are used for clinical purposes. They should not be regarded as investigational or for research. Positive and negative controls stain appropriately. Performed By: #### L [id number] ####[facility] LABCLIA [id number] [address] [place] AP BLOCK ID A6 Normal [facility] Comment on above: Order Comment: Ara powers Type: TISSUE SPECIMENOrdering Facility: [facility] Address: [address] [place] [address] Performed By: #### L [id number] ####[facility] CENTERIA [id number] [address] BIOMARKER INTERPRETATION COMMENT AND REFERENCE RANGE [facility] Comment on above: Order Comment: Ara powers Type: TISSUE SPECIMENOrdering Facility: [facility] Address: [address] [place] [address] [address]: [address] expression of MMR [...] patients with metastatic carcinoma, Alana et al. (ORJ 2015;372:2509-20) reported that the clinical benefit of pembrolizumab, [...] questions about this result, please call the [facility] for [facility] at [phone]. Performed By: #### L [id number] ####[facility] LABIA [id number] [address] BIOMARKER METHOD Immunohistochemistry was performed on formalin fixed paraffin-embedded tissue using the following clones: MLH1 (clone M1 mouse monoclonal); MSH2 ([id number] mouse monoclonal); and MSH6 (SP93 rabbit monoclonal); followed by ultrasensitive bright field detection (Optiview with amplification) from [[employer], [place]]. PMS2 (EP51 Rabbit monoclonal, [employer] Swyft); followed by ultrasensitive bright field detection ( Rosales Refine Polymer DAB Detection) from [[employer], [place], [place]]. [facility] Comment on above: Order Comment: Speci men Type: TISSUE SPECIMENOrdering Facility: [facility] Address: [address] [place] [address] Performed By: #### L [id number] ####[facility] LABIA [id number] [address] CASE NUMBER MMR [id number] [facility] Comment on above: Order Comment: Speci men Type: TISSUE SPECIMENOrdering Facility: [facility] Address: [address] [place] [address] Performed By: #### L [id number] ####[facility] LABIA [id number] [address] OF [place] FIXATIVE Formalin, 10% Neutra l Buffered [facility] Comment on above: Order Comment: Speci men Type: TISSUE SPECIMENOrdering Facility: [facility] Address: [address] [place] [address] Performed By: #### L [id number] ####[facility] LABCLIA [id number] [place] [address] [place] MLH1 IMMUNOHISTOCHEMICAL RESULTS Normal/Intact Nuclear Expression Normal [facility] Comment on above: Order Comment: Speci men Type: TISSUE SPECIMENOrdering Facility: [facility] Address: [address] [place], [place] [address] Performed By: #### L [id number] ####[facility] LABCLIA [id number] [place] [address] [place] MLH1 PROMOTER METHYLATION ASSAY No Normal [facility] Comment on above: Order Comment: Speci men Type: TISSUE SPECIMENOrdering Facility: [facility] Address: [address] [place] [address] Performed By: #### L [id number] ####[facility] LABCLIA [id number] [place] [address] [place] MMR INTERPRETATION Proficient (Microsat ellite Stable) Normal [facility] Comment on above: Order Comment: Speci men Type: TISSUE SPECIMENOrdering Facility: [facility] Address: [address] [place] [address] Performed By: #### L [id number] ####[facility] LABCLIA [id number] [address] [place] MSH2 IMMUNOHISTOCHEMICAL RESULTS Normal/Intact Nuclear Expression Normal [facility] Comment on above: Order Comment: Speci men Type: TISSUE SPECIMENOrdering Facility: [facility] Address: [address] [place], [place] [address] Performed By: #### L [id number] ####[facility] LABCLIA [id number] [address] [place] MSH6 IMMUNOHISTOCHEMICAL RESULTS Normal/Intact Nuclear Expression Normal [facility] Comment on above: Order Comment: Speci men Type: TISSUE SPECIMENOrdering Facility: [facility] Address: [address] [place] [address] Performed By: #### L [id number] ####[facility] LABCLIA [id number] [address] PMS2 IMMUNOHISTOCHEMICAL RESULTS Normal/Intact Nuclear Expression Normal [facility] Comment on above: Order Comment: Speci men Type: TISSUE SPECIMENOrdering Facility: [facility] Address: [address] [place] [address] Performed By: #### L [id number] ####[facility] LABCLIA [id number] [address] [address] [place] TUMOR TYPE MMR Primary Colorectal Adenocarcinoma Normal [facility] Comment on above: Order Comment: Speci men Type: TISSUE SPECIMENOrdering Facility: [facility] Address: [address] [place] [address] Performed By: #### L [id number] ####[facility] LABCLIA [id number] [address] [place] OPERATIVE NOon 06-14-2024 OPERATIVE NO HNO ID: [id number] Author: DONIS CARIAS MD Service: Colorectal Author Type: Physician Type: Operative Report Filed: 06/21/2024 15:52 Note Text: COLON AND RECTAL SURGERY OPERATIVE REPORT PATIENT NAME: Piper Rodríguez ADMISSION DATE: 06/14/2024 LOG ID: [id number] SURGERY/PROCEDURE DATE: 06/14/2024 INCISION/PROCEDURE START TIME: 9:17 AM INCISION CLOSE/PROCEDURE END TIME: 11:24 AM AGE: [age] year old SEX: male 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 The bowel was lined [...] anastomosis was inspected (more content not included)... [facility] SURGICAL PATHOLOGYon 025 BLOCK FOR ADDITIONAL BIOMARKERS/MOLECULAR STUDIES A6 [facility] Comment on above: Order Comment: Speci men Type: TISSUE SPECIMENOrdering Facility: [facility] Address: [address] [place] [address] Performed By: #### S ####[facility] LABCLIA [id number] [address] OF [facility] LABORATORYCLIA [id number] [address] [place] CASE REPORT [facility] Comment on above: Order Comment: Speci men Type: TISSUE SPECIMENOrdering Facility: [facility] Address: [address] [place] [address] Result Comment: Surg ica Pathology Report Case: [id number] Authorizing Provider: Donis Carias MD Collected: 06/14/2024 10:43 AM Ordering Location: [facility] Received: 06/14/2024 11:18 AM Operating Room Pathologist: Samir De La Cruz MD Specimen: Colon, Resection, right colon Performed By: #### S ####[facility] LABCLIA [id number] [address] LABORATORYCLIA [id number] [address] CLINICAL HISTORY Normal [facility] Comment on above: Order Comment: Speci men Type: TISSUE SPECIMENOrdering Facility: [facility] Address: [address] [place] [address] Result Comment: Pre- op diagnosis: Malignant neoplasm of ascending colon (HCC) [C18.2] Performed By: #### S ####[facility] LABCLIA [id number] [address] LABORATORYCLIA [id number] [address] FINAL DIAGNOSIS Normal [facility] Comment on above: Order Comment: Speci men Type: TISSUE SPECIMENOrdering Facility: [facility] Address: [address] [place] [address] Result Comment: Term inal ileum, right colon, appendix, and omentum, resection: - Invasive moderately differentiated colonic adenocarcinoma. - Three of 18 lymph nodes involved by metastatic adenocarcinoma (3/18). - Appendix with fibrous obliteration of the tip. - Omentum with no evidence of tumor. - Terminal ileum with no evidence of tumor. - See synoptic report. Performed By: #### S ####[facility] LABCLIA [id number] [address] LABORATORYCLIA [id number] [address] FINAL PERFORMING LAB [facility] Comment on above: Order Comment: Speci men Type: TISSUE SPECIMENOrdering Facility: [facility] Address: [address] [place] [address] Result Comment: Diag nostic interpretation performed at: [facility], [address] [place] [address] CLIA# [id number] Book Sewer: Kenneth Rajput MD Performed By: #### S ####[facility] LABCLIA [id number] [address] LABORATORYCLIA [id number] [address] Result Comment: Diag nostic interpretation performed at: [facility], [address] [place] [address] CLIA# [id number] Book Sewer: Kenneth Rajput MD Electronically signed out by: Sophia Amaya MD Performed By: #### L [id number] ####[facility] LABCLIA [id number] [address] GROSS DESCRIPTION Normal [facility] Comment on above: Order Comment: Speci men Type: TISSUE SPECIMENOrdering Facility: [facility] Address: [address] [place] [address] Result Comment: Jhony suarez, Resection Received in [...] reveal any areas of induration or nodularity. Cost Clerk sections are submitted as follows: A1 perpendicular [...] 2024 1:43 PM Gross examination performed at [facility], [address] [place] [address] Performed By: #### S ####[facility] LABCLIA [id number] [address] [id number] [address] STATES [place] SYNOPTIC REPORT Normal [facility] Comment on above: Order Comment: Speci men Type: TISSUE SPECIMENOrdering Facility: [facility] Address: [address] [place] [address] Result Comment: COLO N AND RECTUM: Resection [...] Findings: None identified Performed By: #### S ####[facility] [id number] [address] [facility] [id number] [address] [place] ECG COMPLETEon 06-08-2024 ECG COMPLETE Ventricular Rate : 6 2 BPM Atrial Rate : 62 BPM P-R Interval : 170 ms QRS Duration : 94 ms Q-T Interval : 402 ms QTC Calculation(Bazett) : 408 ms Calculated P [place] : 50 degrees Calculated R [place] : 18 degrees Calculated T [place] : 44 degrees NORMAL SINUS RHYTHM NORMAL ECG Confirmed by ALEX METCALF MD ([id number]) on 06/09/2024 6:31:40 AM NAME : PIPER RODRÍGUEZ PID : [id number] : 1970 Gender : Male Race : ORD : [id number] Procedure Date : Jun 08 2024 08:53:10 Edit Date : Jun 09 2024 06:31:44 Diagnosis: NORMAL SINUS RHYTHM NORMAL ECG Confirmed by ALEX METCALF MD ([id number]) on 06/09/2024 6:31:40 AM Test Reason : PRE OP Location : [address] [place] [address] Overread By : ALEX METCALF MD Edited By : ALEX METCALF MD Referred By : DONIS CARIAS Acquired by : Andrea YATES [facility] HISTORY PHYSICALon HISTORY PHYSICAL HNO ID: [id number] Author: AUBREY BAER PA-C Service: ? Author Type: Physician Forest Pathology Professor Type: H&P Filed: 06/08/2024 09:20 Note Text: [...] 5 (+SHERIE, unable to tolerate CPAP ) [id number] Score: Age: <65 Sex: male CHF history: No Hypertension history: Yes Stroke/TIA/thromboembolism history: No Vascular disease history: No Diabetes history: No [id number] Score: 1 ARISCAT Score: Age: 51-80 Preoperative [...] fevers. 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 Normal [facility] PIPER RODRÍGUEZ ([id number]) 1970 M Date Time Provider Department 06/05/24 DONIS CARIAS During your visit today, we recorded the [...] Status:Closed by DONIS CARIAS on 06/05/24 Normal [facility] CBC W Auto Differential pane l (Bld)on 06-02-2024 Basophils (Bld) [#/Vol] 0.06 10*3/uL Normal <0.11 [facility] Comment on above: Order Comment: Speci men Type: BLOOD SPECIMENOrdering Facility: [facility] Address: [address] [place] [address] Performed By: #### 5 7021-8 ####[place] LABORATORYCLIA [id number] [place] [address] [place] Basophils/100 WBC (Bld) 1.0 % Normal [facility] Comment on above: Order Comment: Speci men Type: BLOOD SPECIMENOrdering Facility: [facility] Address: [address] [place] [address] Performed By: #### 5 7021-8 ####[facility] LABORATORYCLIA [id number] [place] [address] [place] Differential cell count method Nom (Bld) Auto Normal [facility] Comment on above: Order Comment: Speci men Type: BLOOD SPECIMENOrdering Facility: [facility] Address: [address] [place] [address] Performed By: #### 5 7021-8 ####[facility] LABORATORYCLIA [id number] [address] [place] Eosinophils (Bld) [#/Vol] 0.28 10*3/uL Normal <0.46 [facility] Comment on above: Order Comment: Speci men Type: BLOOD SPECIMENOrdering Facility: [facility] Address: [address] [place] [address] Performed By: #### 5 7021-8 ####[facility] LABORATORYCLIA [id number] [address] [place] Eosinophils/100 WBC (Bld) 4.5 % Normal [facility] Comment on above: Order Comment: Speci men Type: BLOOD SPECIMENOrdering Facility: [facility] Address: [address] [place] [address] Performed By: #### 5 7021-8 ####[facility] LABORATORYCLIA [id number] [place] [address] [place] Erythrocyte distribution width (RBC) [Ratio] 16.0 % High 11.5-15.0 [facility] Comment on above: Order Comment: Speci men Type: BLOOD SPECIMENOrdering Facility: [facility] Address: [address] [place] [address] Performed By: #### 5 7021-8 ####[facility] LABORATORYCLIA [id number] [place] [address] [place] Hematocrit (Bld) [Volume fraction] 46.1 % Normal 39.0-51.0 [facility] Comment on above: Order Comment: Speci men Type: BLOOD SPECIMENOrdering Facility: [facility] Address: [address] [place] [address] Performed By: #### 5 7021-8 ####[facility] LABORATORYCLIA [id number] [place] [id number] [place] Hemoglobin (Bld) [Mass/Vol] 15.1 g/dL Normal 13.0-17.0 [facility] Comment on above: Order Comment: Speci men Type: BLOOD SPECIMENOrdering Facility: [facility] Address: [address] [place] [address] Performed By: #### 5 7021-8 ####[facility] LABORATORYCLIA [id number] [place] [address] [place] Immature granulocytes (Bld) [#/Vol] 0.03 10*3/uL Normal <0.10 [facility] Comment on above: Order Comment: Speci men Type: BLOOD SPECIMENOrdering Facility: [facility] Address: [address] [place] [address] Performed By: #### 5 7021-8 ####[facility] LABORATORYCLIA [id number] [place] [address] [place] Immature granulocytes/100 WBC (Bld) 0.5 % Normal [facility] Comment on above: Order Comment: Speci men Type: BLOOD SPECIMENOrdering Facility: [facility] Address: [address] [place] [address] Performed By: #### 5 7021-8 ####[facility] LABORATORYCLIA [id number] [place] [id number] [place] Lymphocytes (Bld) [#/Vol] 1.18 10*3/uL Normal 1.00-4.00 [facility] Comment on above: Order Comment: Speci men Type: BLOOD SPECIMENOrdering Facility: [facility] Address: [address] [place] [address] Performed By: #### 5 7021-8 ####[facility] LABORATORYCLIA [id number] [address] STATES [facility] Lymphocytes/100 WBC (Bld) 18.8 % Normal [facility] Comment on above: Order Comment: Speci men Type: BLOOD SPECIMENOrdering Facility: [facility] Address: [address] [place] [address] Performed By: #### 5 7021-8 ####[facility] LABORATORYCLIA [id number] [place] [address] [place] MCH (RBC) [Entitic mass] 30.3 pg Normal 26.0-34.0 [facility] Comment on above: Order Comment: Speci men Type: BLOOD SPECIMENOrdering Facility: [facility] Address: [address] [place] [address] Performed By: #### 5 7021-8 ####[facility] LABORATORYCLIA [id number] [address] [place] MCHC (RBC) [Mass/Vol] 32.8 g/dL Normal 30.5-36.0 [facility] Comment on above: Order Comment: Speci men Type: BLOOD SPECIMENOrdering Facility: [facility] Address: [address] [place] [address] Performed By: #### 5 7021-8 ####[facility] LABORATORYCLIA [id number] [address] [place] MCV (RBC) [Entitic vol] 92.4 fL Normal 80.0-100.0 [facility] Comment on above: Order Comment: Speci men Type: BLOOD SPECIMENOrdering Facility: [facility] Address: [address] [place] [address] Performed By: #### 5 7021-8 ####[facility] LABORATORYCLIA [id number] [address] [place] Monocytes (Bld) [#/Vol] 0.66 10*3/uL Normal <0.87 [facility] Comment on above: Order Comment: Speci men Type: BLOOD SPECIMENOrdering Facility: [facility] Address: [address] [place] [address] Performed By: #### 5 7021-8 ####[facility] LABORATORYCLIA [id number] [place] [id number] [place] Monocytes/100 WBC (Bld) 10.5 % Normal [facility] Comment on above: Order Comment: Speci men Type: BLOOD SPECIMENOrdering Facility: [facility] Address: [address] [place] [address] Performed By: #### 5 7021-8 ####[facility] LABORATORYCLIA [id number] [place] [id number] [place] Neutrophils (Bld) [#/Vol] 4.06 10*3/uL Normal 1.45-7.50 [facility] Comment on above: Order Comment: Speci men Type: BLOOD SPECIMENOrdering Facility: [facility] Address: [address] [place] [address] Performed By: #### 5 7021-8 ####[facility] LABORATORYCLIA [id number] [place] [id number] [place] Neutrophils/100 WBC (Bld) 64.7 % Normal [facility] Comment on above: Order Comment: Speci men Type: BLOOD SPECIMENOrdering Facility: [facility] Address: [address] [place] [address] Performed By: #### 5 7021-8 ####[facility] LABORATORYCLIA [id number] [place] [id number] [place] Nucleated RBC (Bld) [#/Vol] 10*3/uL Normal <0.01 [facility] Comment on above: Order Comment: Speci men Type: BLOOD SPECIMENOrdering Facility: [facility] Address: [address] [place] [address] Performed By: #### 5 7021-8 ####[facility] LABORATORYCLIA [id number] [place] [id number] [place] Nucleated RBC/100 WBC (Bld) [Ratio] 0.0 /100 WBC Normal [facility] Comment on above: Order Comment: Speci men Type: BLOOD SPECIMENOrdering Facility: [facility] Address: [address] [place] [address] Performed By: #### 5 7021-8 ####[place] LABORATORYCLIA [id number] [place] [id number] [place] Platelet mean volume (Bld) [Entitic vol] 10.1 fL Normal 9.0-12.7 [facility] Comment on above: Order Comment: Speci men Type: BLOOD SPECIMENOrdering Facility: [facility] Address: [address] [place] [address] Performed By: #### 5 7021-8 ####[place] LABORATORYCLIA [id number] [place] [id number] [place] Platelets (Bld) [#/Vol] 182 10*3/uL Normal 150-400 [facility] Comment on above: Order Comment: Speci men Type: BLOOD SPECIMENOrdering Facility: [facility] Address: [address] [place] [address] Performed By: #### 5 7021-8 ####[place] LABORATORYCLIA [id number] [place] [id number] [place] RBC (Bld) [#/Vol] 4.99 10*6/uL Normal 4.20-6.00 [facility] Comment on above: Order Comment: Speci men Type: BLOOD SPECIMENOrdering Facility: [facility] Address: [address] [place] [address] Performed By: #### 5 7021-8 ####[place] LABORATORYCLIA [id number] [place] [id number] [place] WBC (Bld) [#/Vol] 6.27 10*3/uL Normal 3.70-11.00 [facility] Comment on above: Order Comment: Speci men Type: BLOOD SPECIMENOrdering Facility: [facility] Address: [address] [place] [address] Performed By: #### 5 7021-8 ####[place] [facility]ORATORYCLIA [id number] [place] [id number] [place] CEA SerPl-mCncon 06-02-2024 Carcinoembryonic Ag [Mass/Vol] 3.5 ng/mL High <=2.9 [facility] Comment on above: Order Comment: Speci men Type: BLOOD SPECIMENOrdering Facility: [facility] Address: [address], [place] [address] Result Comment: Carc inoembryonic antigen test is used as an aid in monitoring response to treatment or recurrence in patients with established colorectal, breast, lung, prostatic, pancreatic, and ovarian carcinomas. Clinical correlation is required. The Carcinoembryonic antigen test was performed using the [employer] Un[employer] DXI paramagnetic particle chemiluminescent immunoassay method. Results obtained with different assay methods or kits cannot be used interchangeably. Performed By: #### 2 039-6 ####[facility] LABCLIA [id number] [place] [address] [place] CT ABD/PEL W IVCONon 06-02- 025 CT ABD/PEL W IVCON * * [...] pelvis. 4. Fatty infiltration of the liver. Clay Transporter: PSCB Transcribe Date/Time: Jun 04 2024 8:16A Dictated by : OSKAR JOHNSON MD This examination was interpreted and the report reviewed and electronically signed by: OSKAR JOHNSON MD on Jun 04 2024 8:28AM EST [id number] Normal [facility] CT CHEST W IVCONon 5 CT [...] pelvis. 4. Fatty infiltration of the liver. Clay Transporter: WILBER Transcribe Date/Time: Jun 04 2024 8:16A Dictated by : OKSAR JOHNSON MD This examination was interpreted and the report reviewed and electronically signed by: OSKAR JOHNSON MD on Jun 04 2024 8:28AM EST [id number] Normal [facility] Comprehensive metabolic 2000 panelon 06-02-2024 Albumin [Mass/Vol] 4.1 g/dL Normal 3.9-4.9 [facility] Comment on above: Order Comment: Speci men Type: BLOOD SPECIMENOrdering Facility: [facility] Address: [address] [place] [address] Performed By: #### 2 4323-8 ####[place] LABORATORYCLIA [id number] [place] [address] [place] ALP [Catalytic activity/Vol] 85 U/L Normal 38-113 [facility] Comment on above: Order Comment: Speci men Type: BLOOD SPECIMENOrdering Facility: [facility] Address: [address] [place] [address] Performed By: #### 2 4323-8 ####[place] LABORATORYCLIA [id number] [place] [id number] [place] ALT [Catalytic activity/Vol] 175 U/L High 10-54 [facility] Comment on above: Order Comment: Speci men Type: BLOOD SPECIMENOrdering Facility: [facility] Address: [address] [place] [address] Performed By: #### 2 4323-8 ####[place] [facility]ORATORYCLIA [id number] [place] [id number] [place] Anion gap [Moles/Vol] 13 mmol/L Normal 8-15 [facility] Comment on above: Order Comment: Speci men Type: BLOOD SPECIMENOrdering Facility: [facility] Address: [address] [place] [address] Performed By: #### 2 4323-8 ####[facility] LABORATORYCLIA [id number] [place] [id number] [place] AST [Catalytic activity/Vol] 151 U/L High 14-40 [facility] Comment on above: Order Comment: Speci men Type: BLOOD SPECIMENOrdering Facility: [facility] Address: [address] [place] [address] Performed By: #### 2 4323-8 ####[facility] LABORATORYCLIA [id number] [place] [id number] [place] Bilirubin [Mass/Vol] 0.6 mg/dL Normal 0.2-1.3 [facility] Comment on above: Order Comment: Speci men Type: BLOOD SPECIMENOrdering Facility: [facility] Address: [address] [place] [address] Performed By: #### 2 4323-8 ####[facility] LABORATORYCLIA [id number] [place] [id number] [place] Calcium [Mass/Vol] 9.1 mg/dL Normal 8.5-10.2 [facility] Comment on above: Order Comment: Speci men Type: BLOOD SPECIMENOrdering Facility: [facility] Address: [address] [place] [address] Performed By: #### 2 4323-8 ####[facility] LABORATORYCLIA [id number] [place] [id number] [place] Chloride [Moles/Vol] 94 mmol/L Low 98-107 [facility] Comment on above: Order Comment: Speci men Type: BLOOD SPECIMENOrdering Facility: [facility] Address: [address] [place] [address] Performed By: #### 2 4323-8 ####[place] [facility]ORATORYCLIA [id number] [place] [address] [place] CO2 [Moles/Vol] 24 mmol/L Normal 22-30 [facility] Comment on above: Order Comment: Speci men Type: BLOOD SPECIMENOrdering Facility: [facility] Address: [address] [place] [address] Performed By: #### 2 4323-8 ####[place] [facility]ORATORYCLIA [id number] [place] [id number] [place] Creatinine [Mass/Vol] 1.08 mg/dL Normal 0.73-1.22 [facility] Comment on above: Order Comment: Ara powers Type: BLOOD SPECIMENOrdering Facility: [facility] Address: [address] [place] [address] Performed By: #### 2 4323-8 ####[place] [facility]ORATORYCLIA [id number] [place] [address] [place] [facility] Creatinine and Glomerular filtration rate.predicted panel (S/P/Bld) 82 mL/min/1.73m??? Normal >=60 [facility] Comment on above: Order Comment: Ara powers Type: BLOOD SPECIMENOrdering Facility: [facility] Address: [address] [place] [address] Result Comment: Dee mated Glomerular Filtration Rate [...] actual GFR. Performed By: #### 2 4323-8 ####[place] [facility]ORATORYCLIA [id number] [place] [id number] [place] Glucose [Mass/Vol] 97 mg/dL Normal 74-99 [facility] Comment on above: Order Comment: Ara powers Type: BLOOD SPECIMENOrdering Facility: [facility] Address: [address] [place] [address] Result Comment: The [place] [employer] (ADA) provides guidance for cutoff [...] Standards of Medical Care in Diabetes 2016, [place] [employer]. Diabetes Care. 2016.39(Suppl 1). Performed By: #### 2 4323-8 ####[facility] LABORATORYCLIA [id number] [place] [address] [place] Potassium [Moles/Vol] 5.2 mmol/L High 3.7-5.1 [facility] Comment on above: Order Comment: Speci men Type: BLOOD SPECIMENOrdering Facility: [facility] Address: [address] [place] [address] Performed By: #### 2 4323-8 ####[facility] LABORATORYCLIA [id number] [place] [id number] [place] Protein [Mass/Vol] 7.8 g/dL Normal 6.3-8.0 [facility] Comment on above: Order Comment: Speci men Type: BLOOD SPECIMENOrdering Facility: [facility] Address: [address] [place] [address] Performed By: #### 2 4323-8 ####[place] [facility]ORATORYCLIA [id number] [place] [id number] [place] Sodium [Moles/Vol] 131 mmol/L Low 136-144 [facility] Comment on above: Order Comment: Williani men Type: BLOOD SPECIMENOrdering Facility: [facility] Address: [address] [place] [address] Performed By: #### 2 4323-8 ####[place] [facility]ORATORYCLIA [id number] [place] [id number] [place] OF JESSICA Urea nitrogen [Mass/Vol] 11 mg/dL Normal 9-24 [facility] Comment on above: Order Comment: Williani men Type: BLOOD SPECIMENOrdering Facility: [facility] Address: [address] [place] [address] Performed By: #### 2 4323-8 ####[facility] LABORATORYCLIA [id number] [address] OF JESSICA NURSING PROGon 06-02-2024 NURSING PROG HNO ID: [id number] Author: ABILIO TANG, RN Service: PICC Team [...] Intact SIGNATURE: Abilio Tang RN PATIENT NAME: Piperjessica Rodríguez DATE: June 02, 2024 TIME: 8:53 AM [facility] 06-01-2024 [facility] Telephone ([facility]) PIPER RODRÍGUEZ ([id number]) 1970 M Date Time Provider Department 06/01/24 DONIS CARIAS [facility] During your visit today, we recorded the following information about you: Be Cloud 06/01/2024 10:07 AM Signed 06/01 Patient called, stated that he wanted to cancel CT that was for 06/02 due to distance to appointment. Stated that will go to [facility] to gert CT done. Was wondering if able to go to [place] for CT? Jocelyn Cantrell RN 06/01/2024 11:03 AM Signed Spoke with patient. He was under the impression he could get his CT done in [place] and could have the images sent to Dr. Carias. We had a long discussion about the process to make that happen and my concerns that it would not be done in time to continue with his surgery on 06/14. He was agreeable to reschedule his CT at [place] on 06/02/24. He will get his lab work done tomorrow prior to his CT. Allergies As of Date: 06/01/2024 (No Known Allergies) Date Reviewed: 05/25/2024 Reviewed by: Jessica Bass OCCA - Fully Assessed Reason for Visit: Patient Question [6397] Prescriptions as of 06/01/2024 - metroNIDAZOLE (FLAGYL) [...] Encounter Status:Closed by JOCELYN CANTRELL on 06/01/24 [facility] CNOVon 05-25-2024 CNOV Office Visit ([facility] ) PIPER RODRÍGUEZ ([id number]) 1970 M Date Time Provider Department 05/25/24 11:20 AM DONIS CARIAS [facility] During your visit today, we recorded [...] internal providers or letter via the [employer] for external providers. Chief Complaint: [...] Magallanes: Seth Castro operative note (path pending) [id number] Pathology Scan on 05/22/2024 8:26 AM by Be Cloud: [facility] Pathology Report 05/11/24 COLON, Biopsy, Cecum: [...] with st (more content not included)... Normal [facility] Pathology Request for Lab Co rpon 05-10-2024 Pathology Request for Lab Bibiana Normal [facility] Comment on above: Order Comment: PATHO LOGY GI SPECIMEN Result Comment: See report. Scanned copy available in EMR. PERFORMED BY: [place] [address] PATHOLOGIST EYELET CUTTER ETHAN SOLANO M.D. Performed By: #### P ATH TO [facility] #### [address] Ambulatory Visit Summaryon 1 06-26-2023 Ambulatory [...] for choosing us for your care. Normal [facility] Dragan 09-13-2023 L Specimen: Re ceived: 09/14/23 Status: SOUT Req Num: [id number] Spec Type: Impression Subm Dr: Kisha Esteves MD Tissues: PATHPER Procedures: PATHREVIEW Age/ Patient Sex Location Account Attending Physician Piper Rodríguez O 53/M LABELL [id number] Kisha Esteves MD SPEC NUM: RECD: 09/14/23 STATUS: SOUT REQ NUM: [id number] ANDREA: 09/13/[address]: Kisha Esteves MD ENTERED: 09/14/[address] [facility] [address]: Renaldo Fung SPEC TYPE: Impression DEPT: [facility] ENTERED BY: [id number] RECV BY: [id number] ORDERED: PATHREVIEW ORDERED: PATHREVIEW Pathologist Review Normocytic Anemia is noted. Bone Marrow Pathology Vs. Peripheral Etiology. [id number] -------- -------- Specimen: [id number]- Received: 09/14/23 Status: DEION Cullen Num: [id number] Spec Type: Impression Subm Dr: Kisha Esteves MD Tissues: PATHPER Procedures: PATHREVIEW -------- Patient: Piper Rodríguez [id number] (Continued) -------- Signed (signature on file) Ethan Solano MD 09/15/23 1390 Normal [facility] Dragan 08-02-2023 L Specimen: [id number] Re ceived: 08/03/23-0770 Status: DEION Cullen Num: [id number] Spec Type: Impression Subm Dr: Gen Peña MD Tissues: PATHPER Procedures: PATHREVIEW Age/ Patient Sex Location Account Attending Physician Piper Rodríguez 53/M LABELL [id number] Gen Peña MD SPEC NUM: [id number] RECD: 08/03/23 STATUS: DEION CULLEN NUM: [id number] ANDREA: 08/02/23-[address]: Gen Peña MD ENTERED: 08/03/[address] [facility] [address]: SPEC TYPE: Impression DEPT: [facility] ENTERED BY: [id number] RECV BY: [id number] ORDERED: PATHREVIEW ORDERED: PATHREVIEW Pathologist Review Abnormal [...] laboratory follow-ups are also suggested -------- Specimen: [id number] Received: 08/03/23 Status: DEION Deana Num: [id number] Spec Type: Impression Subm Dr: Gen Peña MD Tissues: PATHPER Procedures: PATHREVIEW -------- Patient: DiortiffaniePiper O [id number] (Continued) -------- Specimen: [id number] Received: 08/03/23 (Continued) Pathologist Review (Continued) Signed (signature on file) Tammy Mathew MD 08/05/23 1828 -------- Specimen: [id number] Received: 08/03/23 Status: LORNEDago Cullen Num: [id number] Spec Type: Impression Subm Dr: Gen Peña MD Tissues: PATHPER Procedures: PATHREVIEW -------- Patient: Piper Rodríguez [id number] (Continued) -------- Specimen: BP Received: 08/03/23 (Continued) Pathologist Review (Continued) CPT: 20087 CBC No results available. -------- -------- Specimen: Received: 08/03/23 Status: DEION Cullen Num: [id number] Spec Type: Impression Subm Dr: Gen Peña MD Tissues: PATHPER Procedures: PATHREVIEW -------- Patient: Piper Rodríguez [id number] (Continued) -------- Signed (signature on file) José-Fredo Mathew MD 08/05/23 1828 Normal [facility] T4 [facility] 02-05-2022 T4 [Mass/Vol] 9.2 ug/dL Normal 4.5-12.0 [facility] Comment on above: Performed By: #### T 4LC #### [facility] [address] [place] [address] Dr. Rayna Mathew CBC AUTO DIFFon 02-04-2022 BASO # 0.0 103/ul Normal 0.0-0.1 [facility] Comment on above: Performed By: #### C BC #### [facility] [address] [place] [address] Dr. Rayna Mathew Basophils/100 WBC (Bld) 0.7 % Normal 0.2-2.0 [facility] Comment on above: Performed By: #### C BC #### [facility] [address] [place] [address] Dr. Rayna Mathew EO # 0.4 103/ul Normal 0.0-0.7 [facility] Comment on above: Performed By: #### C BC #### [facility] [address] [place] [address] Dr. Rayna Mathew Eosinophils/100 WBC (Bld) 6.7 % Normal 0.9-7.0 [facility] Comment on above: Performed By: #### C BC #### [facility] [address] [place] [address] Dr. Rayna Mathew Erythrocyte distribution width (RBC) [Ratio] 13.5 % Normal 11.0-15.0 [facility] Comment on above: Performed By: #### C BC #### [facility] [address] [place] [address] Dr. Rayna Mathew Hematocrit (Bld) [Volume fraction] 37.2 % Critically low 42.0-54.0 [facility] Comment on above: Performed By: #### C BC #### [facility] [address] [place] [address] Dr. Rayna Mathew Hemoglobin (Bld) [Mass/Vol] 11.5 g/dL Critically low 14.0-18.0 [facility] Comment on above: Performed By: #### C BC #### [facility] [address] [place] [address] Dr. Rayna Mathew IG # 0.02 10e3/ul Normal 0.00-0.03 [facility] Comment on above: Performed By: #### C BC #### [facility] [address] [place] [address] Dr. Rayna Mathew IG % 0.3 % Normal 0.0-0.5 [facility] Comment on above: Performed By: #### C BC #### [facility] [address] [place] [address] Dr. Rayna Mathew LYMPH # 1.4 103/ul Normal 1.2-3.8 [facility] Comment on above: Performed By: #### C BC #### [facility] [address] [place] [address] Dr. Rayna Mathew Lymphocytes/100 WBC (Bld) 23.8 % Normal 20.5-60.0 [facility] Comment on above: Performed By: #### C BC #### [facility] [address] [place] [address] Dr. Rayna Mathew MANUAL DIFF REQ NO Normal [facility] Comment on above: Performed By: #### C BC #### [facility] [address] [place] [address] Dr. Rayna Mathew MCH (RBC) [Entitic mass] 27.4 pg Normal 25.9-34.0 [facility] Comment on above: Performed By: #### C BC #### [facility] [address] [place] [address] Dr. Rayna Mathew MCHC (RBC) [Mass/Vol] 30.9 g/dL Normal 29.9-35.2 [facility] Comment on above: Performed By: #### C BC #### [facility] [address] [place] [address] Dr. Rayna Mathew MCV (RBC) [Entitic vol] 88.6 fL Normal 80.0-94.0 [facility] Comment on above: Performed By: #### C BC #### [facility] [address] [place] [address] Dr. Rayna Mathew MONO # 0.6 103/ul Normal 0.3-0.8 [facility] Comment on above: Performed By: #### C BC #### [facility] [address] [place] [address] Dr. Rayna Mathew Monocytes/100 WBC (Bld) 9.2 % Normal 1.7-12.0 [facility] Comment on above: Performed By: #### C BC #### [facility] [address] [place] [address] Dr. Rayna Mathew NEUT # 3.5 103/ul Normal 1.4-6.5 [facility] Comment on above: Performed By: #### C BC #### [facility] [address] [place] [address] Dr. Rayna Mathew Neutrophils/100 WBC (Bld) 59.3 % Normal 43.0-75.0 [facility] Comment on above: Performed By: #### C BC #### [facility] [address] [place] [address] Dr. Rayna Mathew Platelet mean volume (Bld) [Entitic vol] 10.4 fL Normal 9.5-13.5 [facility] Comment on above: Performed By: #### C BC #### [facility] [address] [place] [address] Dr. Rayna Mathew PLT 182 103/ul Normal 150-450 [facility] Comment on above: Performed By: #### C BC #### [facility] [address] [place] [address] Dr. Rayna Mathew RBC 4.20 106/ul Critically low 4.70-6.10 [facility] Comment on above: Performed By: #### C BC #### [facility] [address] [place] [address] Dr. Rayna Mathew WBC 6.0 103/ul Normal 4.0-11.0 [facility] Comment on above: Performed By: #### C BC #### [facility] [address] [place] [address] Dr. Rayna Mathew FREE T3on 02-04-2022 FREE T3 3.28 pg/mlL Normal 2.18-3.98 [facility] Comment on above: Performed By: #### F T3, TSH, CMP, LIPID #### [facility] [address] [place] [address] Dr. Rayna Mathew GLYCOHEMOGLOBIN A1Con 2021 ADA RECOMMENDATION SEE BELOW Normal [facility] Comment on above: Result Comment: ADA RECOMMENDED LIMIT 4.0 - 6.0 ADA THERAPEUTIC TARGET < 7.0 ACTION SUGGESTED > 7.0 Performed By: #### A 1C #### [facility] [address] [place] [address] Dr. Rayna Mathew Glucose [Mass/Vol] 123 mg/dL Normal [facility] Comment on above: Performed By: #### A 1C #### [facility] [address] [place] [address] Dr. Rayna Mathew HbA1c (Bld) [Mass fraction] 5.9 % Normal 4.5-6.2 [facility] Comment on above: Performed By: #### A 1C #### [facility] [address] [place] [address] Dr. Rayna Mathew LIPID PROFILEon 02-04-2022 CHOL-HDL RATIO NORM SEE BELOW Normal [facility] Comment on above: Result Comment: 3.3 - 4.4 LOW RISK 4.4 - 7.1 AVERAGE RISK 7.1 - 11.0 MODERATE RISK >11.0 HIGH RISK Performed By: #### F T3, TSH, CMP, LIPID #### [facility] [address] [address] [address] Rayna Mathew Cholesterol [Mass/Vol] 158 mg/dL Normal <=200 [facility] Comment on above: Performed By: #### F T3, TSH, CMP, LIPID #### [facility] [address] [address] [address] Rayna Mathew Cholesterol in HDL [Mass/Vol] 47 mg/dL Normal 40-60 [facility] Comment on above: Performed By: #### F T3, TSH, CMP, LIPID #### [facility] [address] [place] [address] Dr. Rayna Mathew Cholesterol in LDL [Mass/Vol] 98.0 mg/dL Normal [facility] Comment on above: Performed By: #### F T3, TSH, CMP, LIPID #### [facility] [address] [address] [address] Rayna Mathew Cholesterol.total/Cho lesterol in HDL [Mass ratio] 3.4 {ratio} Normal [facility] Comment on above: Performed By: #### F T3, TSH, CMP, LIPID #### [facility] [address] [place] [address] Dr. Rayna Mathew HDL NORMAL > or = 60 mg/dl - LO W CARDIOVASCULAR RISK <40 mg/dl - HIGH CARDIOVASCULAR RISK Normal [facility] Comment on above: Performed By: #### F T3, TSH, CMP, LIPID #### [facility] [address] [place] [address] Dr. Rayna Mathew LDL CALC NORMAL SEE BELOW Normal [facility] Comment on above: Result Comment: <100 mg/dl OPTIMAL 100 - 129 mg/dl NEAR OR ABOVE OPTIMAL 130 - 159 mg/dl BORDERLINE HIGH 160 - 189 mg/dl HIGH >190 mg/dl VERY HIGH Performed By: #### F T3, TSH, CMP, LIPID #### [facility] [address] [address] [address] Rayna Mathew Triglyceride [Mass/Vol] 65 mg/dL Normal <=150 [facility] Comment on above: Performed By: #### F T3, TSH, CMP, LIPID #### [facility] [address] [address] [address] Rayna Mathew VLDL CALC 13.0 mg/dL Normal [facility] Comment on above: Performed By: #### F T3, TSH, CMP, LIPID #### [facility] [address] [address] [address] Rayna Mathew PROF 14(COMP METB)on 022 Albumin [Mass/Vol] 3.8 g/dL Normal 3.4-5.0 [facility] Comment on above: Performed By: #### F T3, TSH, CMP, LIPID #### [facility] [address] [address] [address] Rayna Mathew Albumin/Globulin [Mass ratio] 0.9 {ratio} Normal [facility] Comment on above: Performed By: #### F T3, TSH, CMP, LIPID #### [facility] [address] [address] [address] Rayna Mathew ALP [Catalytic activity/Vol] 76 U/L Normal 46-116 [facility] Comment on above: Performed By: #### F T3, TSH, CMP, LIPID #### [facility] [address] [place] [address] Dr. Rayna Mathew ALT [Catalytic activity/Vol] 109 U/L Critically high 16-63 [facility] Comment on above: Performed By: #### F T3, TSH, CMP, LIPID #### [facility] [address] [address] [address] Rayna Mathew Anion gap [Moles/Vol] 11.1 mmol/L Normal [facility] Comment on above: Performed By: #### F T3, TSH, CMP, LIPID #### [facility] [address] [address] [address] Rayna Mathew AST [Catalytic activity/Vol] 79 U/L Critically high 15-37 [facility] Comment on above: Performed By: #### F T3, TSH, CMP, LIPID #### [facility] [address] [address] [address] Rayna Mathew Bilirubin [Mass/Vol] 0.4 mg/dL Normal 0.2-1.0 [facility] Comment on above: Performed By: #### F T3, TSH, CMP, LIPID #### [facility] [address] [address] [address] Rayna Mathew Calcium [Mass/Vol] 9.0 mg/dL Normal 8.5-10.1 [facility] Comment on above: Performed By: #### F T3, TSH, CMP, LIPID #### [facility] [address] [address] [address] Rayna Mathew Chloride [Moles/Vol] 102 mmol/L Normal 98-107 [facility] Comment on above: Performed By: #### F T3, TSH, CMP, LIPID #### [facility] [address] [place] [address] Dr. Rayna Mathew CO2 [Moles/Vol] 29.5 mmol/L Normal 21.0-32.0 [facility] Comment on above: Performed By: #### F T3, TSH, CMP, LIPID #### [facility] [address] [address] [address] Rayna Mathew Creatinine [Mass/Vol] 0.96 mg/dL Normal 0.70-1.30 [facility] Comment on above: Performed By: #### F T3, TSH, CMP, LIPID #### [facility] [address] [address] [address] Rayna Mathew EGFR-AF GREEK >60 Normal >=60 [facility] Comment on above: Performed By: #### F T3, TSH, CMP, LIPID #### [facility] [address] [address] [address] Rayna Mathew EGFR-NON AF GREEK >60 Normal >=60 [facility] Comment on above: Performed By: #### F T3, TSH, CMP, LIPID #### [facility] [address] [address] [address] Rayna Mathew Globulin (S) [Mass/Vol] 4.0 g/dL Normal [facility] Comment on above: Performed By: #### F T3, TSH, CMP, LIPID #### [facility] [address] [address] [address] Rayna Mathew Glucose [Mass/Vol] 121 mg/dL Critically high 74-106 [facility] Comment on above: Performed By: #### F T3, TSH, CMP, LIPID #### [facility] [address] [place] [address] Dr. Rayna Mathew Potassium [Moles/Vol] 4.6 mmol/L Normal 3.5-5.1 [facility] Comment on above: Performed By: #### F T3, TSH, CMP, LIPID #### [facility] [address] [place] [address] Dr. Rayna Mathew Protein [Mass/Vol] 7.8 g/dL Normal 6.4-8.2 [facility] Comment on above: Performed By: #### F T3, TSH, CMP, LIPID #### [facility] [address] [place] [address] Dr. Rayna Mathew Sodium [Moles/Vol] 138 mmol/L Normal 136-145 [facility] Comment on above: Performed By: #### F T3, TSH, CMP, LIPID #### [facility] [address] [place] [address] Dr. Rayna Mathew Urea nitrogen [Mass/Vol] 11.0 mg/dL Normal 7.0-18.0 [facility] Comment on above: Performed By: #### F T3, TSH, CMP, LIPID #### [facility] [address] [place] [address] Dr. Rayna Mathew Urea nitrogen/Creatinine [Mass ratio] 11.5 mg/mg Normal [facility] Comment on above: Performed By: #### F T3, TSH, CMP, LIPID #### [facility] [address] [place] [address] Dr. Rayna Mathew TSHon 02-04-2022 TSH 1.905 uIU/mL Normal 0.358-3.74 0 [facility] Comment on above: Performed By: #### F T3, TSH, CMP, LIPID #### [facility] [address] [address] [address] Rayna Mathew Vital Signs Date Time Vital Sign Value Performing Clinician Paramjit mclean 01-30-2025 17:56-0400 Body height 177.8 cm Luna Mariela ROTARY ADJUSTER Work Phone: [facility] 01-30-2025 17:56-0400 Body mass index (BMI) [Ratio] 36 kg/m2 Luna Mariela ROTARY ADJUSTER Work Phone: [facility] 01-30-2025 17:56-0400 Body temperature 102.1 [degF] Luna Mariela ROTARY ADJUSTER Work Phone: [facility] 01-30-2025 17:56-0400 Body weight 113.85 kg Luna Mariela ROTARY ADJUSTER Work Phone: [facility] 01-30-2025 17:56-0400 Diastolic blood pressure 75 mm[Hg] Luna Mariela ROTARY ADJUSTER Work Phone: [facility] 01-30-2025 17:56-0400 Heart rate 104 /min Luna Mariela ROTARY ADJUSTER Work Phone: [facility] 01-30-2025 17:56-0400 Respiratory rate 18 /min Luna Mariela ROTARY ADJUSTER Work Phone: [facility] 01-30-2025 17:56-0400 SaO2% (BldA) [Mass fraction] 95 % Luna Mariela ROTARY ADJUSTER Work Phone: [facility] 01-30-2025 17:56-0400 Systolic blood pressure 117 mm[Hg] Luna Mariela ROTARY ADJUSTER Work Phone: [facility] 01-11-2025 12:58-0400 Body height 177.8 cm Donis Carias MD Work Phone: [facility] 01-11-2025 12:58-0400 Body mass index (BMI) [Ratio] 36.16 kg/m2 Donis Carias MD Work Phone: [facility] 01-11-2025 12:58-0400 Body weight 114.31 kg Donis Carias MD Work Phone: [facility] 01-11-2025 12:58-0400 Diastolic blood pressure 80 mm[Hg] Donis Carias MD Work Phone: [facility] 01-11-2025 12:58-0400 Heart rate 69 /min Donis Carias MD Work Phone: [facility] 01-11-2025 12:58-0400 Systolic blood pressure 130 mm[Hg] Donis Carias MD Work Phone: [facility] 10-24-2024 09:55-0400 Body mass index (BMI) [Ratio] 36.28 kg/m2 Donis Carias MD Work Phone: [facility] 10-24-2024 09:55-0400 Body weight 114.7 kg Donis Carias MD Work Phone: [facility] 10-24-2024 09:55-0400 Diastolic blood pressure 91 mm[Hg] Donis Carias MD Work Phone: [facility] 10-24-2024 09:55-0400 Heart rate 71 /min Donis Carias MD Work Phone: [facility] 10-24-2024 09:55-0400 Systolic blood pressure 160 mm[Hg] Donis Carias MD Work Phone: [facility] 07-07-2024 08:50-0500 Body height 177.8 cm 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 APRN.CNP Work Phone: [facility] 07-07-2024 08:50-0500 Body mass index (BMI) [Ratio] 35.87 kg/m2 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 APRN.CNP Work Phone: [facility] 07-07-2024 08:50-0500 Body temperature 97.9 [degF] 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 ROTARY ADJUSTER.DIETETIC ASSISTANT Work Phone: [facility] 07-07-2024 08:50-0500 Body weight 113.4 kg 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 ROTARY ADJUSTER.DIETETIC ASSISTANT Work Phone: [facility] 07-07-2024 08:50-0500 Diastolic blood pressure 77 mm[Hg] 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 ROTARY ADJUSTER.DIETETIC ASSISTANT Work Phone: [facility] 07-07-2024 08:50-0500 Heart rate 88 /min 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 ROTARY ADJUSTER.DIETETIC ASSISTANT Work Phone: [facility] 07-07-2024 08:50-0500 SaO2% (BldA) [Mass fraction] 99 % 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 ROTARY ADJUSTER.DIETETIC ASSISTANT Work Phone: [facility] 07-07-2024 08:50-0500 Systolic blood pressure 134 mm[Hg] 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 ROTARY ADJUSTER.DIETETIC ASSISTANT Work Phone: [facility] 06-28-2024 15:21-0500 Blood Pressure Location Jone HEDRICK [facility] [place] 06-28-2024 15:21-0500 Diastolic blood pressure 84 mm[Hg] Jone HEDRICK [facility] [place] 06-28-2024 15:21-0500 Heart rate 72 /min Jone HEDRICK [facility] [place] 06-28-2024 15:21-0500 Respiratory rate 16 /min Jone HEDRICK [facility] [place] 06-28-2024 15:21-0500 Systolic blood pressure 128 mm[Hg] Jone HEDRICK [facility] [place] 06-28-2024 10:56-0500 Body height 177.8 cm Joseph Bragg MD Work Phone: [facility] 06-28-2024 10:56-0500 Body mass index (BMI) [Ratio] 36.47 kg/m2 Joseph Bragg MD Work Phone: [facility] 06-28-2024 10:56-0500 Body temperature 97.3 [degF] Joseph Bragg MD Work Phone: [facility] 06-28-2024 10:56-0500 Body weight 115.3 kg Joseph Bragg MD Work Phone: [facility] 06-28-2024 10:56-0500 Diastolic blood pressure 79 mm[Hg] Joseph Bragg MD Work Phone: [facility] 06-28-2024 10:56-0500 Heart rate 74 /min Joseph Bragg MD Work Phone: [facility] 06-28-2024 10:56-0500 Respiratory rate 18 /min Joseph Bragg MD Work Phone: [facility] 06-28-2024 10:56-0500 SaO2% (BldA) [Mass fraction] 97 % Joseph Bragg MD Work Phone: [facility] 06-28-2024 10:56-0500 Systolic blood pressure 118 mm[Hg] Joseph Bragg MD Work Phone: [facility] 06-08-2024 08:34-0500 Body height 177.8 cm Pacc 1 Work Phone: [facility] 06-08-2024 08:34-0500 Body mass index (BMI) [Ratio] 38.78 kg/m2 Pac 1 Work Phone: [facility] 06-08-2024 08:34-0500 Body temperature 98.01 [degF] Pacc 1 Work Phone: [facility] 06-08-2024 08:34-0500 Body weight 122.6 kg Pacc 1 Work Phone: [facility] 06-08-2024 08:34-0500 Diastolic blood pressure 82 mm[Hg] Pacc 1 Work Phone: [facility] 06-08-2024 08:34-0500 Heart rate 72 /min Pacc 1 Work Phone: [facility] 06-08-2024 08:34-0500 Respiratory rate 15 /min Pacc 1 Work Phone: [facility] 06-08-2024 08:34-0500 SaO2% (BldA) [Mass fraction] 98 % Pacc 1 Work Phone: [facility] 06-08-2024 08:34-0500 Systolic blood pressure 128 mm[Hg] Pacc 1 Work Phone: [facility] 05-25-2024 11:10-0500 Body height 177.8 cm Donis Carias MD Work Phone: [facility] 05-25-2024 11:10-0500 Body mass index (BMI) [Ratio] 38.88 kg/m2 Donis Carias MD Work Phone: [facility] 05-25-2024 11:10-0500 Body temperature 97 [degF] Donis Carias MD Work Phone: [facility] 05-25-2024 11:10-0500 Body weight 122.92 kg Donis Carias MD Work Phone: [facility] 05-25-2024 11:10-0500 Diastolic blood pressure 84 mm[Hg] Donis Carias MD Work Phone: [facility] 05-25-2024 11:10-0500 Heart rate 68 /min Donis Carias MD Work Phone: [facility] 05-25-2024 11:10-0500 SaO2% (BldA) [Mass fraction] 97 % Donis Carias MD Work Phone: [facility] 05-25-2024 11:10-0500 Systolic blood pressure 124 mm[Hg] Donis Carias MD Work Phone: [facility] 04-25-2024 10:21-0500 Blood Pressure Location Jone HEDRICK [facility] 04-25-2024 10:21-0500 Diastolic blood pressure 80 mm[Hg] Jone MENDEZL [facility] 04-25-2024 10:21-0500 Heart rate 68 /min Jone MENDEZL [facility] 04-25-2024 10:21-0500 Respiratory rate 16 /min Jone MENDEZL [facility] 04-25-2024 10:21-0500 Systolic blood pressure 138 mm[Hg] Jone HEDRICK [facility] Encounters Encounter Date Encounter Type Care Provider Facility Start: 01-30-2025 End: 01-30-2025 ambulatory [facility] Work Phone: Start: 01-30-2025 End: 01-30-2025 Patient encounter procedure Luna Almonte ROTARY ADJUSTER -[facility] [place] Work Phone: Start: 01-11-2025 End: 01-11-2025 Patient encounter procedure Donis Carias MD Work Phone: Colorectal Surgery Comment on above: Incisional hernia, w ithout obstruction or gangrene (Primary Dx) Start: 01-11-2025 End: 01-11-2025 ambulatory DONIS CARIAS Facility:[facility] Start: 12-27-2024 End: 12-27-2024 ambulatory Jone HEDRICK Facility:[facility] Start: 12-27-2024 End: 12-27-2024 Patient encounter procedure Jone HEDRICK [facility] [place] Start: 10-24-2024 End: 10-24-2024 Patient encounter procedure Donis Carias MD Work Phone: COLORECTAL SURGERY Comment on above: Follow-up examinatio n after colorectal surgery (Primary Dx); History of colon cancer Start: 10-24-2024 End: 10-24-2024 ambulatory DONIS CARIAS Facility:[facility] Start: 10-09-2024 End: 10-09-2024 Chart abstracting Tori Gandhi RN Work Phone: Hematology/Oncology Comment on above: Research (TCI Resear ch Pre-Screening ([id number])) Start: 10-04-2024 End: 10-04-2024 Chart abstracting Abdias Evans MD Work Phone: Hematology/Oncology Start: 09-27-2024 End: 09-27-2024 ambulatory [facility] Start: 07-18-2024 End: 07-18-2024 ambulatory Jone HEDRICK Facility:[facility] Start: 07-18-2024 End: 07-18-2024 Patient encounter procedure Jone HEDRICK [facility] [place] Start: 07-07-2024 End: 07-07-2024 ambulatory MAYLIN CONTE Facility:[facility] Start: 07-07-2024 End: 07-07-2024 Patient encounter procedure 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 ROTARY ADJUSTER.DIETETIC ASSISTANT Work Phone: Colorectal Surgery Comment on above: Follow-up examinatio n after colorectal surgery (Primary Dx); Encounter for staple removal Start: 07-05-2024 End: 07-05-2024 ambulatory Jone HEDRICK Facility:CD:[id number] Start: 06-30-2024 End: 06-30-2024 Telephone encounter [...] End: 06-28-2024 Patient encounter procedure Jone HEDRICK [facility] [place] Start: 06-28-2024 End: 06-28-2024 ambulatory Jone HEDRICK Facility:[facility] Start: 06-28-2024 End: 06-28-2024 Office outpatient new 60 minutes Joseph Bragg MD Work Phone: Hematology/Oncology Comment on above: Malignant neoplasm o f ascending colon (HCC) Start: 06-26-2024 End: 06-26-2024 Orders Only Donis Carias MD Work Phone: Colorectal Surgery Comment on above: Malignant neoplasm o f ascending colon (HCC) (Primary Dx) Start: 06-21-2024 End: 06-21-2024 ambulatory Jone R FLORIDALMA Facility:[facility] Start: 06-21-2024 End: 06-21-2024 Patient encounter procedure Jone HEDRICK [facility] [place] Start: 06-21-2024 End: 06-21-2024 Telephone encounter Donis Carias MD Work Phone: Colorectal Surgery Start: 06-21-2024 End: 06-23-2024 Evaluation and management of inpatient GEN Gage PEÑA Facility:[facility] Start: 06-20-2024 End: 06-20-2024 Telephone encounter Donis Carias MD Work Phone: Colorectal Surgery Comment on above: Post Op Start: 06-19-2024 End: 06-19-2024 Telephone encounter Donis Carias MD Work Phone: Colorectal Surgery Comment on above: Patient Question Start: 06-14-2024 End: 06-16-2024 Evaluation and management of inpatient DONIS CARIAS Facility:[facility] Start: 06-08-2024 End: 06-08-2024 Admission to establishment Pacc [facility] 1 Work Phone: Pre Anesthesia Start: 06-08-2024 End: 06-08-2024 ambulatory DONIS CARIAS Facility:[facility] Start: 06-08-2024 End: 06-08-2024 Anesthesia consultation Pacc 1 Work Phone: Pre Anesthesia Comment on above: Pre-op evaluation (P rimary Dx); BMI 38.0-38.9,adult; Smokeless tobacco use; SHERIE (obstructive sleep apnea) Start: 06-08-2024 End: 06-08-2024 Preprocedural examination done Pacc 1 Work Phone: [facility] Work Phone: Start: 06-05-2024 End: 06-05-2024 Telephone encounter Donis Carias MD Work Phone: [facility] Provider Adult Start: 06-02-2024 End: 06-02-2024 ambulatory DONIS CARIAS Facility:[facility] Start: 06-02-2024 ambulatory DONIS CARIAS Facili ty:[facility] Start: 06-02-2024 End: 06-02-2024 Subsequent hospital visit by physician Ct [facility] Comment on above: Malignant neoplasm o f ascending colon (HCC) [C18.2] Start: 06-01-2024 End: 06-01-2024 Telephone encounter Donis Carias MD Work Phone: Colorectal Surgery Comment on above: Patient Question Start: 05-25-2024 End: 05-25-2024 ambulatory DONIS CARIAS Facility:[facility] Start: 05-25-2024 End: 05-25-2024 Patient encounter procedure Donis Carias MD Work Phone: Colorectal Surgery Comment on above: Malignant neoplasm o f ascending colon (HCC) (Primary Dx) Start: 05-10-2024 End: 05-10-2024 ambulatory Jone R Nill Facility:[facility] Start: 05-10-2024 End: 05-10-2024 ambulatory Jone R NILL Facility::[id number] Start: 04-25-2024 End: 04-25-2024 ambulatory KISHA ESTEVES Facility:[facility] Start: 04-25-2024 End: 04-25-2024 Patient encounter procedure Jone R VANESSAL [facility] [place] Start: 09-13-2023 End: 09-13-2023 [facility] Work [facility]: Start: 09-13-2023 End: 09-13-2023 Departed Referred MD Gen Peña Work Phone: [facility] Start: 08-02-2023 End: 08-02-2023 ambulatory Gen Peña Facility:[facility] Start: 08-02-2023 End: 08-02-2023 Departed Referred MD Gen Peña Work Phone: [facility] Start: 07-14-2022 End: 07-15-[address] GEN PEÑA . Facility:[facility] Start: 02-10-[address] GEN PEÑA . Facili ty:[facility] Start: 02-08-2022 Encounter for genera l adult medical examination without abnormal findings DR GEN PEÑA . [facility] Start: 02-04-2022 End: 02-05-[address] GEN PEÑA . Facility:[facility] Start: 02-04-2022 End: 02-05-2022 Encounter for general adult medical examination without abnormal findings DR GEN PEÑA . Facility: Start: 08-01-[address] GEN PEÑA . Facili ty:[facility] Procedures Date Procedure Procedure Detail Performing Clinician Start: 10-24-2024 Follow-up visit Follow Up DONIS CARIAS Start: 07-05-2024 Insertion of implantable venous access port [employer] Start: 06-14-2024 Right colectomy [employer] Start: 06-08-2024 Ecg routine ecg w/least 12 lds i&r only [facility] Provider Start: 05-10-2024 Colonoscopy [employer] Start: 05-10-2024 Esophagogastroduodenoscopy [employer] Start: 02-04-[address] GEN PEÑA . Comment on above: Performed By: #### [facility]ASC #### [facility] [address] [place] [address] Dr. Rayna Mathew Start: 06-03-2018 Colonoscopy [employer] Repair of joint of left hip [employer] Repair of joint of right hip [employer]one [employer] Plan of Treatment Date Care Activity Detail Author Start: 06-08-2034 Urine microalbumin profile DTaP,Tdap,Td Vaccine (2 - Td or Tdap) [facility] Start: 06-23-2027 Diabetes Screening Diabetes Screening [facility] Start: 06-16-2027 Diabetes Screening Diabetes Screening [facility] Start: 06-02-2027 Diabetes Screening Diabetes Screening [facility] Start: 06-28-2025 BP Controlled (<130/80) BP Controlled (<130/80) [facility] Start: 01-22-2025 Influenza vaccination [facility] Start: 10-24-2024 End: 10-24-2024 Patient encounter procedure COLORECTAL SURGERY Comment on above: 3 month follow up 3 month follow up la paroscopic right colectomy on 06/14/2024 for colon cancer Start: 10-09-2024 End: 10-09-2024 ambulatory 10/09/2024 4:00 PM EDT Visit (SP) Office Hematology/Oncology [address] [place] [address] [place] [address] Abdias Evans MD [address] [place] [address] [place] [address] Kisha Esteves for 2nd opinion DX: Colon CA Hematology/Oncology Comment on above: Ref by Dr Kisha Esteves for 2nd opinion DX: Colon CA Start: 07-14-2024 End: 07-14-2024 ambulatory 07/14/2024 11:30 AM [facility] Hematology/Oncology [address] [place] [address] pump disconnect Hematology/Oncology Comment on above: pump disconnect Start: 07-12-2024 End: 10-11-2024 Carcinoembryonic Ag [Mass/volume] in Serum or Plasma CARCINOEMBRYONIC ANTIGEN Lab Routine Malignant neoplasm of ascending colon (HCC) Expected: 07/12/2024 (Approximate), Expires: 10/11/2024 [facility] Comment on above: Expected: 07/12/2024 (Approximate), Expi res: 10/11/2024 Start: 07-12-2024 End: 10-11-2024 CBC W Auto Differential panel - Blood COMPLETE BLOOD COUNT AND DIFFERENTIAL Lab Routine Malignant neoplasm of ascending colon (HCC) Expected: 07/12/2024 (Approximate), Expires: 10/11/2024 [facility] Comment on above: Expected: 07/12/2024 (Approximate), Expi res: 10/11/2024 Start: 07-12-2024 End: 10-11-2024 Comprehensive metabolic 2000 panel - Serum or Plasma COMPREHENSIVE METABOLIC PANEL Lab Routine Malignant neoplasm of ascending colon (HCC) Expected: 07/12/2024 (Approximate), Expires: 10/11/2024 [facility] Comment on above: Expected: 07/12/2024 (Approximate), Expi res: 10/11/2024 Start: 07-12-2024 End: 10-11-2024 Ferritin [Mass/volume] in Serum or Plasma FERRITIN Lab Routine Malignant neoplasm of ascending colon (HCC) Expected: 07/12/2024 (Approximate), Expires: 10/11/2024 [facility] Comment on above: Expected: 07/12/2024 (Approximate), Expi res: 10/11/2024 Start: 07-12-2024 End: 10-11-2024 Iron and Iron binding capacity panel - Serum or Plasma IRON AND TIBC Lab Routine Malignant neoplasm of ascending colon (HCC) Expected: 07/12/2024 (Approximate), Expires: 10/11/2024 [facility] Comment on above: Expected: 07/12/2024 (Approximate), Expi res: 10/11/2024 Start: 07-12-2024 End: 10-11-2024 MISC SEND OUT TST 1 MISC SEND OUT TST 1 Lab Routine Malignant neoplasm of ascending colon (HCC) Expected: 07/12/2024 (Approximate), Expires: 10/11/2024 [facility] Comment on above: Expected: 07/12/2024 (Approximate), Expi res: 10/11/2024 Start: 07-12-2024 End: 07-12-2024 Follow-up encounter Hematology/Oncology Comment on above: 2 week follow up with l;ab port draw adán motx folfox pump connect Start: 07-07-2024 End: 07-07-2024 Patient encounter procedure 07/07/2024 9:00 AM EST Office Visit Colorectal Surgery [address] [place] [address] 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, ROTARY ADJUSTER.DIETETIC ASSISTANT [address] [place] [address] Post Op: Staple Removal - Lap RHC 06/14 [place] Colorectal Surgery Comment on above: Post Op: Staple Removal - Lap RHC 06/14 A K Start: 07-05-2024 IR PORTOCATH PLACEMENT IR PORTOCATH PLACEMENT Radiology Routine Malignant neoplasm of ascending colon (HCC) Expected: 07/05/2024 (Approximate) [facility] Work Phone: Comment on above: Expected: 07/05/2024 (Approximate) Start: 07-05-2024 End: 07-05-2024 Patient encounter procedure 07/05/2024 10:40 AM EST Office Visit Colorectal Surgery [address] [facility] [address] [place] [address] 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 APRN.DIETETIC ASSISTANT [address], [facility] [address] [place] [address] Post Op Lap RHC 06/14 [place] Colorectal Surgery Comment on above: Post Op Lap RHC 06/14 [place] Start: 06-30-2024 End: 06-30-2024 Patient encounter procedure 06/30/2024 3:40 PM EST Office Visit Colorectal Surgery [address] [place], [place] [id number] 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 APRN.DIETETIC ASSISTANT [address], [facility] [address] [place] [address] Post Op Lap RHC 06/14 [place] Colorectal Surgery Comment on above: Post Op Lap RHC 06/14 [place] Start: 06-30-2024 End: 06-30-2024 Nursing evaluation of patient and report 06/30/2024 1:00 PM EST Nurse Visit Hematology/Oncology [address] [place] [address] Chelle Willis, RN [address] [place] [address] Chemo ed Folfox with pump connect Hematology/Oncology Comment on above: Chemo ed Folfox with pump connect Start: 06-28-2024 End: 06-28-2024 ambulatory 06/28/2024 11:00 AM EST Visit (SP) Office Hematology/Oncology [address] [place] [address] Joseph Bragg MD [address] [place] [address] Malignant neoplasm of ascending colon Hematology/Oncology Comment on above: Malignant neoplasm of ascending colon Start: 06-22-2024 End: 06-22-2024 Patient encounter procedure 06/22/2024 8:40 AM EST Office Visit Colorectal Surgery [address] [address] [place] [address] [place] [address] Post Op surgical wound check Colorectal Surgery Comment on above: Post Op surgical wound check Start: 06-21-2024 End: 06-21-2024 Exploratory laparotomy celiotomy w/wo biopsy spx EXPLORATORY LAPAROTOMY Perioperative dehiscence of abdominal wound with evisceration 06/21/2024 3:00 PM EST [facility] Start: 06-14-2024 End: 06-14-2024 Admission to same day surgery center 06/14/2024 7:30 AM EST - 06/14/2024 11:45 AM EST Surgery [facility] Operating Room [address] [place] [address] [place] [address] [place] [address] LAPAROSCOPY COLECTOMY, PARTIAL, W/ REMOVAL TERMINAL ILEUM W/ ILEOCOLOSTOMY [facility] Operating Room Comment on above: LAPAROSCOPY COLECTOMY, PARTIAL, W/ REMOV AL TERMINAL ILEUM W/ ILEOCOLOSTOMY Start: 06-14-2024 End: 06-14-2024 Laps colectomy prtl w/rmvl terminal ileum LAPAROSCOPY COLECTOMY, PARTIAL, W/ REMOVAL TERMINAL ILEUM W/ ILEOCOLOSTOMY Malignant neoplasm of ascending colon (HCC) 06/14/2024 7:30 AM EST [facility] Start: 06-14-2024 Subsequent hospital visit by physician [facility] Operating Room Comment on above: Malignant neoplasm of ascending colon (H CC) [C18.2] Start: 06-08-2024 End: 06-08-2024 Admission to same day surgery center 06/08/2024 8:50 AM EST PAT Pre Anesthesia [address] [place] [address] surgery date 06/14 Pre Anesthesia Comment on above: surgery date 06/14 Start: 06-02-2024 End: 06-02-2024 ambulatory 06/02/2024 10:00 AM EST Results Only [facility] Draw Station [address] [place] [address] [facility] Start: 06-02-2024 End: 06-02-2024 Patient encounter procedure Radiology Comment on above: CT CHEST/ABD/PELVIS Ct prep Abd/Pel/Chest Start: 05-25-2024 End: 08-24-2024 Carcinoembryonic Ag [Mass/volume] in Serum or Plasma CARCINOEMBRYONIC ANTIGEN Lab Routine Malignant neoplasm of ascending colon (HCC) Expected: 05/25/2024 (Approximate), Expires: 08/24/2024 [facility] Comment on above: Expected: 05/25/2024 (Approximate), Expi res: 08/24/2024 Start: 05-25-2024 End: 08-24-2024 CBC W Auto Differential panel - Blood COMPLETE BLOOD COUNT AND DIFFERENTIAL Lab Routine Malignant neoplasm of ascending colon (HCC) Expected: 05/25/2024 (Approximate), Expires: 08/24/2024 [facility] Work Phone: Comment on above: Expected: 05/25/2024 (Approximate), Expi res: 08/24/2024 Start: 05-25-2024 End: 08-24-2024 Comprehensive metabolic 2000 panel - Serum or Plasma COMPREHENSIVE METABOLIC PANEL Lab Routine Malignant neoplasm of ascending colon (HCC) Expected: 05/25/2024 (Approximate), Expires: 08/24/2024 [facility] Comment on above: Expected: 05/25/2024 (Approximate), Expi res: 08/24/2024 Start: 01-23-2024 Covid-19 Vaccine ( season) Covid-19 Vaccine ( season) [facility] Start: 01-23-2024 Influenza vaccination Influenza Vaccine (#1) [facility] Start: 2021 Pneumococcal Vaccine: 50+ (1 of 1 - PCV) Pneumococcal Vaccine: 50+ (1 of 1 - PCV) [facility] Start: 2021 Shingrix Vaccine (1 of 2) Shingrix Vaccine (1 of 2) [facility] Start: 02-18-2016 Diabetes Screening Diabetes Screening [facility] Start: 02-18-2016 Screening for malignant neoplasm of colon [facility] Start: 2006 Lipid panel Lipid Screening [facility] Start: 1990 Hepatitis B Vaccine (1 of 3 - 19+ 3-dose series) Hepatitis B Vaccine (1 of 3 - 19+ 3-dose series) [facility] Start: 1990 Urine microalbumin profile DTaP,Tdap,Td Vaccine (1 - Tdap) [facility] Start: 1989 Annual PCP Team Chronic Disease Visit Annual PCP Team Chronic Disease Visit [facility] Start: 1989 Anxiety Screening Anxiety Screening [facility] Start: 1989 BP Controlled (<130/80) BP Controlled (<130/80) [facility] Start: 1989 Depression Screening Depression Screening [facility] Start: 1989 Hepatitis C screening Hepatitis C Screening [facility] Start: 1989 HIV screening HIV Screening [facility] End: 06-24-2025 CT Abdomen and Pelvis W contrast IV CT ABD/PEL W IVCON Radiology Routine Malignant neoplasm of ascending colon (HCC) 1 Occurrences starting 05/25/2024 until 06/24/2025 [facility] Comment on above: 1 Occurrences starting 05/25/2024 until 06/24/2025 CT Abdomen and Pelvi s W contrast IV CT ABD/PEL W IVCON Radiology Routine Malignant neoplasm of ascending colon (HCC) 06/02/2024 9:41 AM Screenburn [facility] Work Phone: End: 06-24-2025 CT Chest W contrast IV CT CHEST W IVCON Radiology Routine Malignant neoplasm of ascending colon (HCC) 1 Occurrences starting 05/25/2024 until 06/24/2025 [facility] Comment on above: 1 Occurrences starting 05/25/2024 until 06/24/2025 CT Chest W contrast IV CT CHEST W IVCON Radiology Routine Malignant neoplasm of ascending colon (HCC) 06/02/2024 9:41 AM EST [facility] ECG COMPLETE [facility] Work Phone: Comment on above: Ordered: 06/08/2024 Laps colectomy prtl w/rmvl terminal ileum LAPAROSCOPY COLECTOMY, PARTIAL, W/ REMOVAL TERMINAL ILEUM W/ ILEOCOLOSTOMY Malignant neoplasm of ascending colon (HCC) [facility] Immunizations Immunization Date Immunization Notes Care Provider Re gtz 09-19-2020 SARS-CoV-2 (COVID-19 ) mRNA-1273 vaccine Jone HEDRICK [facility] Comment on above: Result Comment: 2023: TPV40 08-22-2020 SARS-CoV-2 (COVID-19 ) mRNA-1273 vaccine Jone HEDRICK [facility] Comment on above: Result Comment: 2023: TPV40 03-15-2018 influenza, injectabl e, quadrivalent, preservative free Abdias Evans MD Work Phone: [facility] 03-15-2018 influenza virus vaccine, unspecified formulation Donis Carias MD Work Phone: [facility] Payers Date Payer Category Payer Private Health Insurance [id number] 2023 Unknown MMO MMO [employer] PPO [id number] 2023-Present [phone] [address] [place] [address] PPO [id number] 2023 Self-pay 1971 Unknown [id number] 1971 Unknown [id number] 1971 Unknown [id number] 1971 Unknown [id number] 1971 Unknown [id number] 1971 Unknown [id number] 1971 Unknown [id number] [id number] .[id number] 1971 Unknown [id number] [id number] .727 1971 Unknown [id number] [id number] .727 1971 Unknown [id number] [id number] .[id number] 1971 Unknown [id number] 1959 Self-pay [id number] 1959 Unknown [id number] Unknown Johanna BC/BS [id number] Unknown [id number] Unknown [id number] Unknown [id number] Social History Date Type Detail Facility Tobacco smoking stat [facility] Unknown if ever smoked [facility] Work Phone: Start: 1970 Sex Assigned At Male [facility] Start: 04-25-2024 End: 01-30-2025 Tobacco smoking status Never smoked tobacco (finding) [facility] [place] Start: 05-15-2024 Tobacco smoking status Smokele ss tobacco user within last 30 days [facility] Surgery [place] Start: 05-25-2024 End: 06-02-2024 Sex [address] Male [facility] Start: 05-25-2024 End: 10-04-2024 Tobacco use and exposure User of smokeless tobacco [facility] History of tobacco use Chews Tobacco [facility] Start: 05-25-2024 End: 06-02-2024 History of Social function [facility] Start: 1970 Sex assigned at Not on file [facility] Start: 06-08-2024 End: 10-04-2024 Alcoholic beverage intake Ex-drinker (finding) [facility] Has the [employer] or water company threatened to shut off services in your home in past 12Mo No [facility] (I/We) worried whekiana er (my/our) food would run out before (I/we) got money to buy more. Never true [facility] History of tobacco use Passive smoker [facility] Sexual Orientation [facility] General Surgery [place] Start: 06-03-2018 Sex Male (finding) [facility] Functional Status Date Assessment Result Facility 07-18-2024 Functional Status N/A [facility] 06-28-2024 Functional Status N/A [facility] 06-23-2024 Are you deaf, or do you have serious difficulty hearing No 06/23/2024 10:06 AM Jessica Urban RN No [facility] 06-23-2024 Are you blind, or do you have serious difficulty seeing, even when wearing glasses No 06/23/2024 10:06 AM Jessica Urban, LINDSAY No [facility] 06-23-2024 Do you have serious difficulty walking or climbing stairs No 06/23/2024 10:06 AM Jessica Urban, LINDSAY No [facility] 06-23-2024 Do you have difficul ty dressing or bathing No 06/23/2024 10:06 AM Jessica Urban, LINDSAY No [facility] 06-23-2024 Because of a physica l, mental, or emotional condition, do you have difficulty doing errands alone such as visiting a physician's office or shopping No 06/23/2024 10:06 AM Jessica Urban, LINDSAY No [facility] 04-25-2024 Functional Status N/A [facility] Mental Status Date Assessment Result Facility 06-23-2024 Because of a physica l, mental, or emotional condition, do you have serious difficulty concentrating, remembering, or making decisions No 06/23/2024 10:06 AM Jessica Urban RN No [facility] Clinical Notes 04-25-2024 to 01-11-2025 Patient [...] office. documented in this encounter [facility] 01-11-2025 History of Present illness Narrative [facility] NOTE January 11, 2025 Piper Rodríguez 54 year old Recording using [employer] software for draft documentation of the visit was discussed with the patient/authorized payable representative; all questions welcomed and answered. Patient/authorized payable representative agreed to proceed Chief Complaint: abdominal [...] recti Colonoscopy 06/03/2018 - Dr Hedrick @ [facility] Scan on 05/15/2024 9:54 AM by Be Cloud: [facility]- Operative Report 06/03/18 Colonoscopy 05/10/24 - Dr. Hedrick @ [facility] Scan on 05/16/2024 9:34 AM by Norma Magallanes: [facility] operative note (path pending) [id number] Pathology Scan on 05/22/2024 8:26 AM by Be Cloud: [facility] Pathology Report 05/11/24 COLON, Biopsy, Cecum: [...] 2.5 View External Labs - Chemistry [ID [id number]] Surveillance CT C A P on 09/26/2024 at [facility] -images uploaded into [employer] -no evidence of recurrence in chest, abdomen, pelvis Scan on 10/06/2024 10:52 AM by Dat Brown: [facility] - CT Scan, 09/26/24 Assessment Assessment [...] Currently documented in this encounter [facility] 01-11-2025 Note HNO ID: [id number] Author: DONIS CARIAS MD Service: ? Author Type: Physician Type: Progress Notes Filed: 01/11/2025 13:34 Note Text: [facility] SURGERY CLINIC NOTE January 11, 2025 Piper Rodríguez 54 year old Recording using [employer] software for draft documentation of the visit was discussed with the patient/authorized payable representative; all questions welcomed and answered. Patient/authorized payable representative agreed to proceed Chief Complaint: abdominal [...] obstruction or hernia incarceration. He maintains a ?clean? diet and reports a normal appetite. He [...] Wt 114.3 kg (252 lb) BMI 36.16 kg/m? General Appearance: Well appearing, alert, in no acute distress, well-hydrated, well nourished. Abdomen: soft, non distended, non tender. ~1cm fascia defect above and below incision, as well as diastasis recti Colonoscopy 06/03/2018 - Dr Hedrick @ [facility] on 05/15/2024 9:54 AM by Be Cloud: [facility]- Operative Report 06/03/18 Colonoscopy 05/10/24 - Dr. Hedrick @ [facility] Scan on 05/16/2024 9:34 AM by Norma Magallanes: [facility] operative note (path pending) [id number] Pathology Scan on 05/22/2024 8:26 AM by Be Cloud: [facility] Pathology Report 05/11/24 COLON, Biopsy, Cecum: [...] of the tip. - Omentum with no evid (more content not included)... [facility] 12-27-2024 Note General Surgery Offi ce/Clinic Note Chief Complaint consultation for port removal HPI Staff Presents to discuss removal of Koeyvt-a-yyet. Port placed 06/2024 for chemotherapy due to [...] 08/22/2020 Recorded 2023- (more content not included)... [facility] Comment on above: Result Comment: Elec tronically [...] office. documented in this encounter [facility] 10-24-2024 History of Present illness Narrative [facility]IN[facility] NOTE Recording using [employer] software for draft documentation of the visit was discussed with the patient/authorized payable representative; all questions welcomed and answered. 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 He underwent evaluation by a gas specialist, including an echocardiogram, which was reportedly normal. [...] defect Colonoscopy 06/03/2018 - Dr Hedrick @ [facility] Scan on 05/15/2024 9:54 AM by Be Cloud: [facility]- Operative Report 06/03/18 Colonoscopy 05/10/24 - Dr. Hedrick @ [facility] Scan on 05/16/2024 9:34 AM by Norma Magallanes: [employer] operative note (path pending) [id number] Pathology Scan on 05/22/2024 8:26 AM by Be Cloud: [facility] Pathology Report 05/11/24 COLON, Biopsy, Cecum: [...] 2.5 View External Labs - Chemistry [ID [id number]] Surveillance CT C A P on 09/26/2024 at [facility] uploaded into [facility] -no evidence of recurrence in chest, abdomen, pelvis Scan on 10/06/2024 10:52 AM by Dat Brown: [facility] - CT Scan, 09/26/24 Assessment Assessment [...] 2025. Patient to schedule with GI at [facility]. RTC prn Medical Decision Making: Data Reviewed: [...] Surgery documented in this encounter [facility] 10-24-2024 Note HNO ID: [id number] Author: DONIS CARIAS MD Service: ? Author Type: Physician Type: Progress Notes Filed: 10/24/2024 10:19 Note Text: [facility]ECTAL SURGERY CLINIC NOTE Recording using [employer] software for draft documentation of the visit was discussed with the patient/authorized payable representative; all questions welcomed and answered. 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 He underwent evaluation by a gas specialist, including an echocardiogram, which was reportedly normal. [...] defect Colonoscopy 06/03/2018 - Dr Hedrick @ [facility] Scan on 05/15/2024 9:54 AM by Be Cloud: [facility]- Operative Report 06/03/18 Colonoscopy 05/10/24 - Dr. Hedrick @ [facility] Scan on 05/16/2024 9:34 AM by Norma Magallanes: [facility] operative note (path pending) [id number] Pathology Scan on 05/22/2024 8:26 AM by Be Cloud: [facility] Pathology Report 05/11/24 COLON, Biopsy, Cecum: COLONIC TISSUE WITH INVASIVE ADENOCARCINOMA, MODERATELY DIFFERENTIATED, ULCERATION NOTED 2. COLON, Biopsy, Sigmoid: LARGE TUBULAR ADENOMA (>1 CM), NEGATIVE FOR HIGH GRADE DYSPLASIA, AREAS SHOWING CAUTERY ARTIFACT ARE POSITIVE FOR ADENOMATOUS GLANDS 3. COLON, Biopsy, Descending: TU (more content not included)... [facility] 10-09-2024 Note HNO ID: [id number] Author: TORI GANDHI, LINDSAY Service: ? Author Type: Registered Nurse Type: Progress Notes Filed: 10/09/2024 12:43 Note Text: ---- Summary: [facility] Research Pre-Screening (NRG-GI008) ---- Piper Rodríguez was reviewed for potential clinical trial enrollment on [facility] #NRG-GI008 by the [facility] on 10/09/24. Per initial review, patient has disease type Colon cancer, stage IIIB and appears to be not eligible based on > 60 days from surgery and patient has already started treatment. Requesting constitution party notified. No Study tasks were completed as a result of this initial review. АЛЕКСАНДР Caldera, RN Research Nurse Coordinator [facility] 10-09-2024 History of Present illness Narrative Summary: [facility] Research Pre-Screening (NRG-GI008) Piper Rodríguez was reviewed for potential clinical trial enrollment on [facility] #NRG-GI008 by the [facility] on 10/09/24. Per initial review, patient has disease type Colon cancer, stage IIIB and appears to be not eligible based on > 60 days from surgery and patient has already started treatment. Requesting constitution party notified. No Study tasks were completed as a result of this initial review. АЛЕКСАНДР Caldera, RN Research Nurse Coordinator documented in this encounter [facility] 09-27-2024 Note Cardiac Electrophysi ology Consultation Reason for Consult: Consideration of cardiac monitoring in the setting of chemotherapy/oxaliplatin Referring Purchasing Specialist/PCP: No ref. provider found HPI: Piper is [...] Jones MD, ScM, Msc Cardiac Electrophysiology Email: [email or web address] 07-07-2024 Note HNO ID: [id number] Author: MAYLIN CONTE APRN.[facility] Service: ? Author Type: Nurse Practitioner Type: Progress Notes Filed: 07/07/2024 09:33 Note Text: COLORECTAL SURGERY July 07, 2024 Piper Rodríguez 54 year old This consult was requested by Dr. Carias and my final recommendations will be communicated to the requesting health care provider by way of the shared medical record for internal providers or letter via the [employer] for external providers. Chief Complaint: [...] -continue probiotics fo (more content not included)... [facility] 07-07-2024 History of Present illness Narrative COLORECTAL SURGERY July 07, 2024 Piper Rodríguez 54 year old This consult was requested by Dr. Carias and my final recommendations will be communicated to the requesting health care provider by way of the shared medical record for internal providers or letter via the [employer] for external providers. Chief Complaint: [...] and/or complications of treatment plan: johann Conte APRN.DIETETIC ASSISTANT Colorectal Surgery What is the reason for your visit today? Post op follow up for staple removal Who is your referring physician? Are you having poor oral intake? NO Have you had unintentional weight loss of 15 lbs/7 Kg in the last 3-6 months? YES Bowels: regular Wound: clean & dry Temperature: No Drains: No documented in this encounter [facility] 07-07-2024 Note HNO ID: [id number] Author: VARINDER PHILLIPS MA Service: ? Author Type: Soft Metals Hand Engraver Type: Progress Notes Filed: 07/07/2024 09:33 Note Text: What is the reason for your visit today? Post op follow up for staple removal Who is your referring physician? Are you having poor oral intake? NO Have you had unintentional weight loss of 15 lbs/7 Kg in the last 3-6 months? YES Bowels: regular Wound: clean AND dry Temperature: No Drains: No [facility] 06-30-2024 Telephone encounter Note All appointments on 07/12/24 have been canceled Maria Luisa Montes PSS [facility] 06-30-2024 Miscellaneous Notes All appointments on 07/12/24 have been canceled Maria Luisa Montes PSS Voicemail received from pt's stating pt will be going to [place] to see their oncologist, and doesn't wish to follow up here. Please cancel appointments on 07/12. Call placed to to further assess. Message left requesting her to call our office back. Thanks Chelle Willis RN documented in this encounter [facility] 06-30-2024 Telephone encounter Note Voicemail received from pt's stating pt will be going to [place] to see their oncologist, and doesn't wish to follow up here. Please cancel appointments on 07/12. Call placed to to further assess. Message left requesting her to call our office back. Thanks Chelle Willis RN [facility] Work Phone: 06-29-2024 Telephone encounter Note Pt will be in for education tomorrow. Please sign pending orders. Thanks Chelle Willis RN [facility] 06-29-2024 Miscellaneous Notes Pt will be in for education tomorrow. Please sign pending orders. Thanks Chelle Willis RN documented in this encounter [facility] 06-29-2024 Note HNO ID: [id number] Author: CAMRYN BEAULIEU, Research Coordinator Service: ? Author Type: Research Type: Progress Notes Filed: 06/29/2024 08:26 Note Text: ---- Summary: [facility] Research Pre-Screening (IRB: NRG-GI008) ---- Piper Radertiffanie was reviewed for potential clinical trial enrollment on [facility] #NRG-GI008 by the [facility] group on 06/29/24. Per initial review, patient has disease type Stage III CRC and appears to be preliminarily eligible and further testing/procedures required to determine final eligibility. Requesting constitution party notified. No Study tasks were completed as a result of this initial review. Camryn Beaulieu, Research Coordinator [facility] 06-29-2024 History of Present illness Narrative Summary: [facility] Research Pre-Screening (IRB: NRG-GI008) Piper Rodríguez was reviewed for potential clinical trial enrollment on [facility] #NRG-GI008 by the [facility] [place] group on 06/29/24. Per initial review, patient has disease type Stage III CRC and appears to be preliminarily eligible and further testing/procedures required to determine final eligibility. Requesting constitution party notified. No Study tasks were completed as a result of this initial review. Camryn Beaulieu Research Coordinator documented in this encounter [facility] 06-29-2024 Note HNO ID: [id number] Author: MAYLIN CONTE APRN.DIETETIC ASSISTANT Service: ? Author Type: Nurse Practitioner Type: Progress Notes Filed: 06/29/2024 08:29 Note Text: [facility] Multidisciplinary GI Tumor Board Primary Disease: ascending [...] negative for invasive carcinoma Clinical Pathologic Stage: [id number] stage IIIB Recommendations: MMR studies pending. Referral [...] and alternatives to the various treatment options [facility] 06-28-2024 Note General Surgery Offi ce/Clinic Note Chief Complaint consultation for port insertion HPI Staff 54 year old male presents on consultation from Dr. Esteves for port placement; now seeing Dr. Bragg at [facility]. Patient with metastatic colon adenocarcinoma. Right colectomy completed 06/14/24. History of Present Illness 54 yo male recently diagnosed with cecal adenocarcinoma, s/p LS right colectomy at [facility] 06/14/24, stage IIIb adenocarcinoma; had wound dehiscence requiring fascial closure 06/21/24; now seeing Dr[facility] Bragg at [facility]; referred for port placement; no previous [...] (C18.9: Malignant neoplasm of colon, unspecified) plan dchtak-k-lwjh insertion under anesthesia, informed consent obtained. Ancef [...] (COVID-19) mRNA-1273 vaccine 08/22/2020 Recorded 2024-04-17: TPV40 [facility] Comment on above: Result Comment: Elec tronically Signed By: FLORIDALMA PATEL, Jone Bell\Date and Time Signed: 06/28/24 16:11 EST 06-28-2024 Note Addended by: JOSEPH CALHOUN on: 06/28/2024 11:30 AM Modules accepted: Orders [facility] 06-28-2024 Miscellaneous Notes Addended by: JOSEPH BRAGG on: 06/28/2024 11:30 AM Modules accepted: Orders documented in this encounter [facility] 06-28-2024 Instructions Joseph Bragg MD - 06/28/2024 11:13 AM EST Ordered port placement Chemo teach for FOLFOX F/u in 2 weeks documented in this encounter [facility] 06-28-2024 History of Present illness Narrative Images from the original note were not included. PATIENT NAME: Piper Rodríguez [facility] NO.: [id number] ATTENDING PHYSICIAN: Joseph Bragg MD DATE OF SERVICE: June 28, [address] Donis Carias [id number] [facility] [id number] thank you for referring Piper Rodríguez for [...] Range Status 06/23/2024 12.7 % Final Abs [place] Date Value Ref Range Status 06/23/2024 0.84 [...] in [address] Donis Carias [id number] [facility] [address] thank you for allowing me to participate in Piper Rodríguez care, if there are any questions or concerns please do not hesitate to contact me at the number below. I spent a total of 60 minutes on the date of the service which included preparing to see the patient, ucuq-[id number] patient care, completing clinical documentation, obtaining and/or reviewing separately obtained history, performing a medically appropriate examination, counseling and educating the patient/family/caregiver, ordering medications, tests, or procedures, communicating with other HCPs (not separately reported), independently interpreting results (not separately reported), communicating results to the patient/family/caregiver, and care coordination (not separately reported). Joseph Bragg MD. Hematology/Medical Oncology [facility] [phone] CC: documented in this encounter [facility] 06-28-2024 Note HNO ID: [id number] Author: JOSEPH BRAGG MD Service: ? Author Type: Physician Type: Progress Notes Filed: 06/28/2024 11:29 Note Text: PATIENT NAME: Piper Rodríguez CLINIC NO.: [id number] ATTENDING PHYSICIAN: Joseph Bragg MD DATE OF SERVICE: June 28, [address] Donis Carias [phone] [facility] [address] thank you for referring Piper Rodríguez for [...] pT3 pN1b. MSI Pending Works in a [employer]. Grand mother has colon cancer. No smoking. [...] palpable breast johnny (more content not included)... [facility] 06-23-2024 Note HNO ID: [id number] Author: ELAYNE GONZALEZ LSW Service: Care Management Author Type: Ethics Manager Type: Care Mgt Initial Assessment Filed: 06/23/2024 10:12 Note Text: ---- Summary: High Risk Readmission ---- CARE MANAGEMENT: ASSESSMENT AND DISCHARGE PLAN SERVICE DATE: June 23, 2024 SERVICE TIME: 9:30 PCP: Gen Peña MD Primary Contact: Extended Emergency Contact Information Primary Emergency Contact: Lisa Rodríguez Address: [address] [place] [address] Mobile Relation: Spouse Preferred language: SAMI Roller needed? 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 Machine Operator Attempted to Assist with AD Completion: Yes Action: Education Provided Current Living Arrangements and Support Lives with: Spouse/significant other Type of Residence: Private Residence (House) Support: Spouse/significant other How do you manage to accomplish the following: Independent: Ambulation;Transportation to appointments/community;Bathe/Shower;Dr ess;Meals/Meal Prep;Going to the bathroom;Medication Management Current Services/Equipment Current Post-Acute Service(s): None Discharge Planning Patient Goal(s): General wellness [place] Choice Explained: [place] of [place] Given: No Reason Not Given: [...] : No HCPOA paper[place] on file within [employer] and verified to be current as of date/time of this note Legal Next of Kin Hierarchy per [place] Revised Code: Legal Spouse Lisa [phone] Majority of Adult Children (consensus if possible) [...] DATE: June 23, 2024 TIME: 10:08 AM [facility] 06-23-2024 Note HNO ID: [id number] Author: DONIS CARIAS MD Service: Colorectal Author Type: Physician Type: Progress Notes Filed: 06/23/2024 13:40 Note Text: Documentation Query Please specify a diagnosis associated with the Clinical Indicators for this patient Obesity class 2 This document will become part of the patient's medical record. [facility] 06-22-2024 Note HNO ID: [id number] Author: MARY WORRELL RN Service: Nursing Author Type: Registered Nurse Type: Nursing Progress Note Filed: 06/22/2024 15:45 Note Text: [id number] report called to AR. [facility] 06-22-2024 Note HNO ID: [id number] Author: LASHONDA DELGADO MD Service: Colorectal Author Type: Resident Type: Progress Notes Filed: 06/22/2024 08:11 Note Text: COLORECTAL SURGERY PROGRESS NOTE Piper Rodríguez [id number] Patient Active Hospital Problem List: Perioperative dehiscence [...] and Airways Line Duration Peripheral 06/21/24 [facility] Short Left Forearm 20 Gauge <1 [...] Delgado MD General Surgery, PGY2 Please contact [phone] during the days for any questions. For nights and weekends, please contact [phone]. [facility] 06-21-2024 Note HNO ID: [id number] Author: JULIOCESAR ENRIQUE APRN.SOFTWARE TEST AND VALIDATION ENGINEER Service: Anesthesiology Author Type: Nurse Library Associate Type: Anesthesia Procedure Notes Filed: 06/21/2024 16:11 Note Text: ANESTHESIOLOGY PROCEDURE NOTE Airway General Information Procedure Start Time/Medication Administration: 06/21/2024 3:58 PM Procedure End Time: 06/21/2024 3:58 PM Patient location during procedure: OR Timeout Performed Pre-procedure: timeout performed Consent Obtained: Yes 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, care pipe or steam fitter 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 and patient Staffing SOFTWARE TEST AND VALIDATION ENGINEER: Juliocesar Enrique APRN.SOFTWARE TEST AND VALIDATION ENGINEER Performed by: SOFTWARE TEST AND VALIDATION ENGINEER Indications and Patient Condition Indications for airway [...] esophageal intubation: no Airway not difficult SIGNATURE: Julioecsar Enrique APRN.SOFTWARE TEST AND VALIDATION ENGINEER PATIENT NAME: Piper Rodríguez DATE: June 21, 2024 TIME: 4:10 PM CSN: [id number] [facility] 06-21-2024 Telephone encounter Note Patient called [...] for his appointment tomorrow vs going to [place] ED. Ultimately, he thinks he will go to [facility]. [facility] 06-21-2024 Miscellaneous Notes Patient called stating [...] for his appointment tomorrow vs going to [place] [facility]. Ultimately, he thinks he will go to [place] [facility]. documented in this encounter [facility] 06-20-2024 Telephone encounter Note Returned call. Spoke with his . She said they went to their local ED. It was his bigger incision that opened. The ED doctor was asking them for Dr. Carias's contact information so he can communicate with her. Provided info to physician [facility] 06-20-2024 Miscellaneous Notes Returned call. Spoke [...] they should go to local ER CB# [phone] documented in this encounter [facility] 06-20-2024 Telephone encounter Note Patient calling concerned about surgical incision. She states it has opened up. Asking to speak to nurse to find out if they should go to local ER CB# [phone] [facility] 06-19-2024 Telephone encounter Note Returned call. He would like to be able to return to the office for a few hours every other day. He asked for a note to allow him to do this. His job does not require any physical activity. Note sent through My Chart. [facility] 06-19-2024 Miscellaneous Notes Returned call. He [...] what he can and cannot do CB# [phone] documented in this encounter [facility] 06-19-2024 Telephone encounter Note Patient had surgery on 06/14/24. He is asking to speak to a nurse about his restrictions and what he can and cannot do # [phone] [facility] 06-16-2024 Note HNO ID: [id number] Author: DONIS CARIAS MD Service: Colorectal Author Type: Physician Type: Progress Notes Filed: 06/20/2024 15:11 Note Text: Documentation Query Please clarify the significance of the pathology report I agree with the pathology findings dated 06/14/24 which confirms the clinically significant diagnosis of Invasive moderately differentiated colonic adenocarcinoma and three of 18 lymph nodes involved by metastatic adenocarcinoma (3) This document will become part of the patient's medical record. [facility] 06-16-2024 Note HNO ID: [id number] Author: DAVON WATSON MD Service: Colorectal Author [...] PGY-6 Colorectal Surgery Resident Blue Team Pager: [phone] General Surgery Colorectal Surgery On-Call Pager: [phone](Weekends, Weekdays 6PM-6AM)` SUBJECTIVE: No acute issues overnight. [...] 0659 06/16/24 07 - 06/17/24 0659 Shift [id number] 5150-6371 6559-6397 24 Hour Total 5004-9530 8969-4061 4294-1538 24 Hour Total INTAKE Shift Total OUTPUT [...] 1.25* BUN 19 GLUC 105* CA 8.9 [facility] 06-15-2024 Note HNO ID: [id number] Author: GELY AKINS, LINDSAY Service: Care Management Author Type: Registered Nurse Type: Care Mgt Initial Assessment Filed: 06/15/2024 11:22 Note Text: CARE MANAGEMENT: ASSESSMENT AND DISCHARGE PLAN SERVICE DATE: June 15, 2024 SERVICE TIME: 11:00am PCP: Gen Peña MD Primary Contact: Extended Emergency Contact Information Primary Emergency Contact: Lisa Rodríguez Address: [address] [place] [address] Mobile Relation: Spouse Preferred language: SAMI Roller needed? No Admission Status: Inpatient Insurance Provider: MMO SUPERMED PPO Discharge Planning requested by: Per Department Practice Potential Transition Plans Home Advance Directives Current Advance Directive: None Shirring Machine Operator Attempted to Assist with AD [...] home, Independent living, Be able to drive [place] Choice Explained: [place] Given: No Reason Not Given: [...] soon. Pt lives with spouse. 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 Pt reports he has good support system. Denies needs. No skilled needs identified. Spouse will transport home at discharge. CM remains available if needs arise. SIGNATURE: Gely Akins RN PATIENT NAME: Piper Rodríguez DATE: June 15, 2024 TIME: 11:20 AM [facility] 06-15-2024 Note HNO ID: [id number] Author: LASHONDA DELGADO MD Service: Colorectal Author [...] ---- COLORECTAL SURGERY PROGRESS NOTE Piper Rodríguez [id number] Patient Active Hospital Problem List: Malignant neoplasm [...] and Airways Line Duration Peripheral 06/14/24 0816 [facility] Left Antecubital 20 Gauge 1 day [...] Delgado MD General Surgery, PGY2 Please contact [phone] during the days for any questions. For nights and weekends, please contact [phone]. [facility] 06-14-2024 Note HNO ID: [id number] Author: ANNABEL THACKER APRN.SOFTWARE TEST AND VALIDATION ENGINEER Service: Nursing Author Type: Nurse Library Associate Type: Anesthesia Procedure Notes Filed: 06/14/2024 09:22 Note Text: ANESTHESIOLOGY PROCEDURE NOTE PIV General Information Procedure Start Time/Medication Administration: 06/14/2024 9:02 AM Procedure End Time: 06/14/2024 9:02 AM Patient Location: OR Staffing SOFTWARE TEST AND VALIDATION ENGINEER: Annabel Thacker APRN.SOFTWARE TEST AND VALIDATION ENGINEER Performed by: SOFTWARE TEST AND VALIDATION ENGINEER Preparation Sterility Preparation: hand hygiene performed prior to procedure, surgical cap used, mask used, skin prep agent completely dried prior to procedure Site Prep: chlorhexidine Procedure Details Indication: need for IV access Needle Size/Type: 20 gauge angiocath Orientation: Right Location: Hand Imaging Guidance Used: No SIGNATURE: Annabel Thacker APRN.SOFTWARE TEST AND VALIDATION ENGINEER PATIENT NAME: Piper Rodríguez DATE: June 14, 2024 TIME: 9:20 AM CSN: [id number] [facility] 06-14-2024 Note HNO ID: [id number] Author: ANNABEL THACKER APRN.SOFTWARE TEST AND VALIDATION ENGINEER Service: Nursing Author Type: Nurse Library Associate Type: Anesthesia Procedure Notes Filed: 06/14/2024 09:20 Note Text: ANESTHESIOLOGY PROCEDURE NOTE Airway General Information Procedure Start Time/Medication Administration: 06/14/2024 8:59 AM Procedure End Time: 06/14/2024 8:59 AM Patient location during procedure: OR 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, care pipe or steam fitter 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 and patient Staffing Anesthesiologist: Ila Mortensen MD SOFTWARE TEST AND VALIDATION ENGINEER: Annabel Thacker APRN.SOFTWARE TEST AND VALIDATION ENGINEER Performed by: SOFTWARE TEST AND VALIDATION ENGINEER Indications and Patient Condition Indications for airway [...] no Airway not difficult SIGNATURE: Annabel Thacker APRN.SOFTWARE TEST AND VALIDATION ENGINEER PATIENT NAME: Piper Rodríguez DATE: June 14, 2024 TIME: 9:19 AM CSN: [id number] [facility] 06-08-2024 Instructions Aubrey Baer PA-C - 06/08/2024 8:55 AM EST PATIENT PREOPERATIVE INSTRUCTIONS Donis Carias MD has scheduled you for your procedure at this surgery center: [facility]: [phone] --[address] [address]. Please check in on the 1st floor [...] Procedures: - YOU MUST HAVE A RESPONSIBLE SALES DEVELOPMENT MANAGER TAKE YOU HOME. A PLAYGROUND EQUIPMENT ERECTOR OR TREE FRUIT AND NUT FARMING SUPERVISOR CANNOT BE MADE A RESPONSIBLE SALES DEVELOPMENT MANAGER. - We recommend that a [...] Advance Directive, please fax a copy to [phone] or email to for it to be [...] day documented in this encounter [facility] 06-08-2024 History and physical note HISTORY [...] 5 (+SHERIE, unable to tolerate CPAP ) [id number] Score: Age: <65 Sex: male CHF history: No Hypertension history: Yes Stroke/TIA/thromboembolism history: No Vascular disease history: No Diabetes history: No [id number] Score: 1 ARISCAT Score: Age: 51-80 Preoperative [...] fevers. Neuro: No history of TIA's, stroke, PLANT CONTROL OPERATOR tumor, impaired sensorium, hemiplegia, paraplegia or [...] and voices comprehension and compliance. SIGNATURE: Aubrey Harder, PA-C PATIENT NAME: Piper Rodríguez DATE: 06/08/2024 TIME: 9:18 AM [facility] 06-08-2024 History and physical note HISTORY [...] 5 (+SHERIE, unable to tolerate CPAP ) [id number] Score: Age: <65 Sex: male CHF history: No Hypertension history: Yes Stroke/TIA/thromboembolism history: No Vascular disease history: No Diabetes history: No [id number] Score: 1 ARISCAT Score: Age: 51-80 Preoperative [...] adequate. Short neck: yes. Thick neck: yes Raoms present: no Lip Bite Test: II Microretrognathia/Micronagthia/Recesse [...] fevers. 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 Advised lifestyle changes for fatty liver and to follow up with PCP [facility] 06-05-[address] CAP reviewed with patient- no mets and will proceed with surgery as scheduled. Advised lifestyle changes for fatty liver and to follow up with PCP documented in this encounter [facility] 06-02-2024 History of Present illness Narrative [...] PATIENT PRESENTS WITH AN IMPLANTABLE OR ATTACHED RECRUITING MANAGER: No RADIOLOGY DEPARTMENT: CT; Exam(s) Completed: Chest Abdomen Pelvis PERIPHERAL IV DATA: Site assessment: Clean,Dry and Intact, Site disposition Discontinued SIGNED BY: RT Rhys(Kervin) June 02, 2024 9:36 AM documented in this encounter [facility] 06-02-2024 Note HNO ID: [id number] Author: EVENS NELSON RT(R) Service: Radiology Author [...] PATIENT PRESENTS WITH AN IMPLANTABLE OR ATTACHED RECRUITING MANAGER: No RADIOLOGY DEPARTMENT: CT; Exam(s) Completed: Chest Abdomen Pelvis PERIPHERAL IV DATA: Site assessment: Clean,Dry and Intact, Site disposition Discontinued SIGNED BY: MILADY Joiner) June 02, 2024 9:36 AM [facility] 06-02-2024 Nurse Note Radiology Service Progress [...] 02, 2024 TIME: 8:53 AM [facility] 06-02-2024 Nurse Note Radiology Service Progress [...] AM documented in this encounter [facility] 06-01-2024 Telephone encounter Note Spoke with patient. He was under the impression he could get his CT done in [place] and could have the images sent to Dr. Carias. We had a long discussion about the process to make that happen and my concerns that it would not be done in time to continue with his surgery on 06/14. He was agreeable to reschedule his CT at [place] on 06/02/24. He will get his lab work done tomorrow prior to his CT. [facility] 06-01-2024 Miscellaneous Notes Spoke with patient. He was under the impression he could get his CT done in [place] and could have the images sent to Dr. Carias. We had a long discussion about the process to make that happen and my concerns that it would not be done in time to continue with his surgery on 06/14. He was agreeable to reschedule his CT at [place] on 06/02/24. He will get his lab work done tomorrow prior to his CT. 06/01 Patient called, stated that he wanted to cancel CT that was for / due to distance to appointment. Stated that will go to [facility] to [facility] CT done. Was wondering if able to go to [place] for CT? documented in this encounter [facility] 06-01-2024 Telephone encounter Note 06/01 Patient called, stated that he wanted to cancel CT that was for / due to distance to appointment. Stated that [facility] Was wondering if able to go to [place] for CT? [facility] 05-25-2024 History of Present illness Narrative COLORECTAL SURGERY CLINIC NOTE May 25, 2024 Piper Rodríguez 54 year old This consult was requested by Dr. Hedrick and my final recommendations will be communicated to the requesting health care provider by way of the shared medical record for internal providers or letter via the [employer] for external providers. Chief Complaint: [...] mass Colonoscopy 05/10/24 - Dr. Hedrick @ [facility] Scan on 05/16/2024 9:34 AM by Norma Magallanes: Seth Castro operative note (path pending) [id number] Pathology Scan on 05/22/2024 8:26 AM by Be Cloud: [facility] Pathology Report 05/11/24 COLON, Biopsy, Cecum: COLONIC TISSUE WITH INVASIVE ADENOCARCINOMA, MODERATELY DIFFERENTIATED, ULCERATION NOTED 2. COLON, Biopsy, Sigmoid: LARGE TUBULAR ADENOMA (>1 CM), NEGATIVE FOR HIGH GRADE DYSPLASIA, AREAS SHOWING CAUTERY ARTIFACT ARE POSITIVE FOR ADENOMATOUS GLANDS 3. COLON, Biopsy, Descending: TUBULAR ADENOMA. NEGATIVE FOR HIGH GRADE DYSPLASIA Colonoscopy 06/03/2018 - Dr Hedrick @ [facility] Scan on 05/15/2024 9:54 AM by Be [...] Surgery documented in this encounter [facility] 05-25-2024 Note HNO ID: [id number] Author: DONIS CARIAS MD Service: ? Author [...] internal providers or letter via the [employer] for external providers. Chief Complaint: [...] Magallanes: Seth Castro operative note (path pending) [id number] Pathology Scan on 05/22/2024 8:26 AM by Be Cloud: [facility] Pathology Report 05/11/24 COLON, Biopsy, Cecum: [...] or locally advanced, (more content not included)... [facility] 04-25-2024 Note General Surgery Offi ce/Clinic [...] Tobacco Use:. Smokele (more content not included)... [facility] Comment on above: Result Comment: Elec tronically Signed By: FLORIDALMA PATEL, Jone Blel\Date and Time Signed: 04/25/24 10:59 EST Evaluation + Plan note No data available for this section [facility] General Surgery [place] Evaluation note No assessment information [facility] Work Phone: Evaluation note Diagnosis Malignant neoplasm of ascending colon (HCC)- Primary Malignant neoplasm of ascending colon [facility] Diagnosis Malignant neoplasm of ascending colon (HCC) Malignant neoplasm of ascending colon Malignant neoplasm of ascending colon (HCC) Malignant neoplasm of ascending colon documented in this encounter [facility] note* Diagnosis Pre-op evaluation- Primary [...] Assessment: BMI 38.78 documented in this encounter [facility] note* Diagnosis Pre-op evaluation- Primary Preoperative examination, unspecified BMI 38.0-38.9,adult Body Mass Index 38.0-38.9, adult Smokeless tobacco use Tobacco use disorder SHERIE (obstructive sleep apnea) Obstructive sleep apnea (adult) (pediatric) Malignant neoplasm of ascending colon (HCC)- Primary Malignant neoplasm of ascending colon documented in this encounter [facility] note* Diagnosis Pre-op evaluation- Primary Preoperative examination, unspecified BMI 38.0-38.9,adult Body Mass Index 38.0-38.9, adult Smokeless tobacco use Tobacco use disorder SHERIE (obstructive sleep apnea) Obstructive sleep apnea (adult) (pediatric) Malignant neoplasm of ascending colon (HCC) Malignant neoplasm of ascending colon documented in this encounter [facility] note* Diagnosis Pre-op evaluation- Primary Preoperative examination, unspecified BMI 38.0-38.9,adult Body Mass Index 38.0-38.9, adult Smokeless tobacco use Tobacco use disorder SHERIE (obstructive sleep apnea) Obstructive sleep apnea (adult) (pediatric) Malignant neoplasm of ascending colon (HCC)- Primary Malignant neoplasm of ascending colon documented in this encounter [facility] note* Diagnosis Pre-op evaluation- Primary Preoperative examination, unspecified BMI 38.0-38.9,adult Body Mass Index 38.0-38.9, adult Smokeless tobacco use Tobacco use disorder SHERIE (obstructive sleep apnea) Obstructive sleep apnea (adult) (pediatric) Follow-up examination after colorectal surgery- Primary Follow-up examination, following other surgery Encounter for staple removal Encounter for removal of sutures documented in this encounter [facility] note* Diagnosis Pre-op evaluation- Primary Preoperative examination, unspecified BMI 38.0-38.9,adult Body Mass Index 38.0-38.9, adult Smokeless tobacco use Tobacco use disorder SHERIE (obstructive sleep apnea) Obstructive sleep apnea (adult) (pediatric) Follow-up examination after colorectal surgery- Primary Follow-up examination, following other surgery History of colon cancer Personal history of malignant neoplasm of large intestine documented in this encounter [facility] note* Diagnosis Pre-op evaluation- Primary Preoperative examination, unspecified BMI 38.0-38.9,adult Body Mass Index 38.0-38.9, adult Smokeless tobacco use Tobacco use disorder SHERIE (obstructive sleep apnea) Obstructive sleep apnea (adult) (pediatric) Incisional hernia, without obstruction or gangrene- Primary Incisional hernia without mention of obstruction or gangrene documented in this encounter [facility] Discharge instructions No data available for this section [facility] General Surgery [place] Progress note No data available for this section [facility] General Surgery [place] Reason for referral (narrative)* Outpatient Procedure (Routine) - New Request Specialty Diagnoses / Procedures Referred By Renetta t Referred To [facility] Diagnoses Pre-op evaluation Procedures ECG COMPLETE ECG ROUTINE ECG W/LEAST 12 LDS W/I&R Aubrey Baer PA-C [address] [facility] [place] [address] [facility] [place] [address] [place] [address] Referral ID Status Reason Start Date Expiration Date Visits Requested Visits Authorized [id number] New Request Auto-Generat ed Referral 06/08/2024 06/08/2025 1 1 Health for referral (narrative)No reason for referral information [facility] Work Phone: Summary Purpose Family History No [...] Date/ Time Advance Directives No September 13, 12:27pm Reason for Referral Specialty Diagnoses / Procedures Referred By Renetta t Referred To Contact Oncology Diagnoses Malignant neoplasm of ascending colon (HCC) Procedures CONSULT TO ONCOLOGY OFFICE/OUTPATIENT NEW HIGH M[place] 60 [place] [address] [place] [address] Referral ID Status Reason Start Date Expiration Date Visits Requested Visits Authorized [id number] Authorized PCP Requested Referral 06/26/2024 06/26/2025 1 1 Specialty Diagnoses / Procedures Referred By Renetta t Referred To Contact CT IMAGING Diagnoses Malignant neoplasm of ascending colon (HCC) Procedures CT CHEST W IVCON DIAGNOSTIC COMPUTED TOMOGRAPHY [place]ORAX [place] [address] [place] [address] [facility] [place] [address] Referral ID Status Reason Start Date Expiration Date Visits Requested Visits Authorized [id number] Authorized Auto-Generat ed Referral 05/25/2024 06/24/2025 1 1 Specialty Diagnoses / Procedures Referred By Renetta hinkle Referred To Contact CT IMAGING Diagnoses Malignant neoplasm of ascending colon (HCC) Procedures CT ABD/PEL W IVCON CT ABD & PELVIS W/[place] [address] [place] [address] [place] [address] Referral ID Status Reason Start Date Expiration Date Visits Requested Visits Authorized [id number] Authorized Auto-Generat ed Referral 05/25/2024 06/24/2025 1 1 Chief Complaint and Reason for Visit Chief Complaint Admit Date cough, congestion January 30, 2025 5:55pm Additional Source Comments (unrecognized sect ion and content) No Status Records FoundNo Status Records FoundNo Status Records FoundNo Status Records FoundNo Status Records FoundNo Status Records Found INFORMATION SOURCE (unrecogn ized section and content) DATE CREATED AUTHOR 07/18/2022 [facility] DATE CREATED AUTHOR AUTHOR'S ORGANIZ ATION 05/25/2024 [facility] DATE CREATED AUTHOR AUTHOR'S ORGANIZ ATION 07/01/2024 [facility] DATE CREATED AUTHOR AUTHOR'S ORGANIZ ATION 10/03/2024 [facility] DATE CREATED AUTHOR AUTHOR'S ORGANIZ ATION 12/28/2024 [facility] DATE CREATED AUTHOR AUTHOR'S ORGANIZ ATION 01/13/2025 [facility] Care Teams (unrecognized sec tion and content) Team Status: Inactive Member Role Status Dates Gen Peña MD Attending Provider Active Sta rt: August 02, 2023 End: August 02, 2023 Team Status: Inactive Member Role Status Dates Kisha Esteves MD Attending Provider Active St art: September 13, 2023 End: September 13, 2023 Negative Turner Apprentice Relationship Specialty Start Date End Date Gen Peña MD [address] [place] [address] PCP - General Family Medicine 05/15/24 Jone Hedrick MD [address] [place] [address] General Surgery 05/15/24 Negative Turner Apprentice Relationship Specialty Start Date End Date Gen Peña MD [address] [place] [address] PCP - General Family Medicine 05/15/24 Jone Hedrick MD [address] [place] [address] General Surgery 05/15/24 Negative Turner Apprentice Relationship Specialty Start Date End Date Gen Peña MD [address] [place] [address] PCP - General Family Medicine 05/15/24 Jone Hedrick MD [address] [place] [address] General Surgery 05/15/24 Negative Turner Apprentice Relationship Specialty Start Date End Date Gen Peña MD [address] [place] [address] PCP - General Family Medicine 05/15/24 Jone Hedrick MD [address] [place] [address] General Surgery 05/15/24 Negative Turner Apprentice Relationship Specialty Start Date End Date Gen Peña MD [address] [place] [address] PCP - General Family Medicine 05/15/24 Jone Hedrick MD [address] [place] [address] General Surgery 05/15/24 Negative Turner Apprentice Relationship Specialty Start Date End Date Gen Peña MD [address] [place] [address] PCP - General Family Medicine 05/15/24 Joen Hedrick MD [address] [place] [address] General Surgery 05/15/24 Negative Turner Apprentice Relationship Specialty Start Date End Date Gen Peña MD [address] [place] [address] PCP - General Family Medicine 05/15/24 Jone Hedrick MD [address] [place] [address] General Surgery 05/15/24 Negative Turner Apprentice Relationship Specialty Start Date End Date Gen Peña MD [address] [place] [address] PCP - General Family Medicine 05/15/24 Jone Hedrick MD [address] [place] [address] General Surgery 05/15/24 Negative Turner Apprentice Relationship Specialty Start Date End Date Gen Peña MD [address] [place] [address] PCP - General Family Medicine 05/15/24 Jone Hedrick MD [address] [place] [address] General Surgery 05/15/24 Negative Turner Apprentice Relationship Specialty Start Date End Date Gen Peña MD [address] [place] [address] PCP - General Family Medicine 05/15/24 Jone Hedrick MD [address] [place] [address] General Surgery 05/15/24 Negative Turner Apprentice Relationship Specialty Start Date End Date Gen Peña MD [address] [place] [address] PCP - General Family Medicine 05/15/24 Jone Hedrick MD [address] [address] General Surgery 05/15/24 Negative Turner Apprentice Relationship Specialty Start Date End Date Gen Peña MD [address] [place] [address] PCP - General Family Medicine 05/15/24 Jone Hedrick MD [address] [address] General Surgery 05/15/24 Chelle Willis, RN [address] [place] [address] Specialty Heating Systems Installer Hematology/Oncology 06/29/24 Joseph Bragg MD [address] [facility] [place] [address] Physician Hematology/Oncology 06/29/24 Negative Turner Apprentice Relationship Specialty Start Date End Date Gen Peña MD [address] [place] [address] PCP - General Family Medicine 05/15/24 Jone Hedrick MD [address] [place] [address] General Surgery 05/15/24 Chelle Willis RN [address] [facility] [place] [address] Specialty Heating Systems Installer Hematology/Oncology 06/29/24 Joseph Bragg MD [address] [facility] [place] [address] Physician Hematology/Oncology 06/29/24 Negative Turner Apprentice Relationship Specialty Start Date End Date Gen Peña MD [address] [place] [address] PCP - General Family Medicine 05/15/24 Jone Hedrick MD [address] [place] [address] General Surgery 05/15/24 Chelle Willis RN [address] [facility] [place] [address] Specialty Heating Systems Installer Hematology/Oncology 06/29/24 Joseph Bragg MD [address] [facility] [place] [address] Physician Hematology/Oncology 06/29/24 Negative Turner Apprentice Relationship Specialty Start Date End Date Gen Peña MD [address] [place] [address] PCP - General Family Medicine 05/15/24 Jone Hedrick MD [address] [place] [address] General Surgery 05/15/24 Chelle Willis, RN [address] [facility] [place] [address] Specialty Heating Systems Installer Hematology/Oncology 06/29/24 Joseph Bragg MD [address] [facility] [place] [address] Physician Hematology/Oncology 06/29/24 Negative Turner Apprentice Relationship Specialty Start Date End Date Gen Peña MD [address] [place] [address] PCP - General Family Medicine 05/15/24 Jone Hedrick MD [address] [place] [address] General Surgery 05/15/24 Chelle Willis RN [address] [place] [address] Specialty Heating Systems Installer Hematology/Oncology 06/29/24 Joseph Bragg MD [address] [facility] [place] [address] Physician Hematology/Oncology 06/29/24 Negative Turner Apprentice Relationship Specialty Start Date End Date Gen Peña MD [address] [place] [address] PCP - General Family Medicine 05/15/24 Jone Hedrick MD [address] [place] [address] General Surgery 05/15/24 Chelle Willis RN [address] [place] [address] Specialty Heating Systems Installer Hematology/Oncology 06/29/24 Joseph Bragg MD [address] [facility] [place] [address] Physician Hematology/Oncology 06/29/24 Negative Turner Apprentice Relationship Specialty Start Date End Date Gen Peña MD [address] [place] [address] PCP - General Family Medicine 05/15/24 Jone Hedrick MD [address] [place] [address] [address] [place] [address] General Surgery 05/15/24 Chelle Willis RN [address] [place] [address] Specialty Heating Systems Installer Hematology/Oncology 06/29/24 Joseph Bragg MD [address] [facility] [place] [address] Physician Hematology/Oncology 06/29/24 Team Status: Active Member Role Status Dates NON STAFF Primary Care Provider Active Team Status: Inactive Member Role Status Dates Luna Sierra APRN Attending Provider Active S tart: January 30, 2025 End: January 30, 2025 NON STAFF Primary Care Provider Active Start: January 30, 2025 End: January 30, 2025 Goals (unrecognized section and content) Goals may be documented in a n alternate section No data available for this section No data available for this section No data available for this section No data available for this section No data available for this sectionGoals may be documented in an alternate section Source Comments (unrecognize d section and content) In the event this informatio n is protected by the Federal Confidentiality of Alcohol and Drug Abuse Patient Records regulations: The Federal rules restrict any use of the information to criminally investigate or prosecute any alcohol or drug abuse patient.[facility] the event this information is protected by the Federal Confidentiality of Alcohol and Drug Abuse Patient Records regulations: The Federal rules restrict any use of the information to criminally investigate or prosecute any alcohol or drug abuse patient.[facility] the event this information is protected by the Federal Confidentiality of Alcohol and Drug Abuse Patient Records regulations: The Federal rules restrict any use of the information to criminally investigate or prosecute any alcohol or drug abuse patient.[facility] the event this information is protected by the Federal Confidentiality of Alcohol and Drug Abuse Patient Records regulations: The Federal rules restrict any use of the information to criminally investigate or prosecute any alcohol or drug abuse patient.[facility] the event this information is protected by the Federal Confidentiality of Alcohol and Drug Abuse Patient Records regulations: The Federal rules restrict any use of the information to criminally investigate or prosecute any alcohol or drug abuse patient.[facility] Hospital[facility] the event this information is protected by the Federal Confidentiality of Alcohol and Drug Abuse Patient Records regulations: The Federal rules restrict any use of the information to criminally investigate or prosecute any alcohol or drug abuse patient.[facility] Hospital[facility] the event this information is protected by the Federal Confidentiality of Alcohol and Drug Abuse Patient Records regulations: The Federal rules restrict any use of the information to criminally investigate or prosecute any alcohol or drug abuse patient.[facility] Hospital[facility] the event this information is protected by the Federal Confidentiality of Alcohol and Drug Abuse Patient Records regulations: The Federal rules restrict any use of the information to criminally investigate or prosecute any alcohol or drug abuse patient.[facility] Hospital[facility] the event this information is protected by the Federal Confidentiality of Alcohol and Drug Abuse Patient Records regulations: The Federal rules restrict any use of the information to criminally investigate or prosecute any alcohol or drug abuse patient.[facility] Hospital[facility] the event this information is protected by the Federal Confidentiality of Alcohol and Drug Abuse Patient Records regulations: The Federal rules restrict any use of the information to criminally investigate or prosecute any alcohol or drug abuse patient.[facility] HospitalIn the event this information is protected by the Federal Confidentiality of Alcohol and Drug Abuse Patient Records regulations: The Federal rules restrict any use of the information to criminally investigate or prosecute any alcohol or drug abuse patient.[facility] HospitalIn the event this information is protected by the Federal Confidentiality of Alcohol and Drug Abuse Patient Records regulations: The Federal rules restrict any use of the information to criminally investigate or prosecute any alcohol or drug abuse patient.[facility] HospitalIn the event this information is protected by the Federal Confidentiality of Alcohol and Drug Abuse Patient Records regulations: The Federal rules restrict any use of the information to criminally investigate or prosecute any alcohol or drug abuse patient.[facility] HospitalIn the event this information is protected by the Federal Confidentiality of Alcohol and Drug Abuse Patient Records regulations: The Federal rules restrict any use of the information to criminally investigate or prosecute any alcohol or drug abuse patient.[facility] HospitalIn the event this information is protected by the Federal Confidentiality of Alcohol and Drug Abuse Patient Records regulations: The Federal rules restrict any use of the information to criminally investigate or prosecute any alcohol or drug abuse patient.[facility] HospitalIn the event this information is protected by the Federal Confidentiality of Alcohol and Drug Abuse Patient Records regulations: The Federal rules restrict any use of the information to criminally investigate or prosecute any alcohol or drug abuse patient.[facility] HospitalIn the event this information is protected by the Federal Confidentiality of Alcohol and Drug Abuse Patient Records regulations: The Federal rules restrict any use of the information to criminally investigate or prosecute any alcohol or drug abuse patient.[facility] HospitalIn the event this information is protected by the Federal Confidentiality of Alcohol and Drug Abuse Patient Records regulations: The Federal rules restrict any use of the information to criminally investigate or prosecute any alcohol or drug abuse patient.[facility] HospitalIn the event this information is protected by the Federal Confidentiality of Alcohol and Drug Abuse Patient Records regulations: The Federal rules restrict any use of the information to criminally investigate or prosecute any alcohol or drug abuse patient.[facility] Reason for Visit (unrecogniz ed section and content) Reason Comments Colon Cancer Reason Comments Patient Question Specialty Diagnoses / Procedures Referred By Contac t Referred To Contact CT IMAGING Diagnoses Malignant neoplasm of ascending colon (HCC) Procedures CT CHEST W IVCON DIAGNOSTIC COMPUTED TOMOGRAPHY THORAX [place] [address] [place] [address] [place] [address] Referral ID Status Reason Start Date Expiration Date V isits Requested Visits Authorized [id number] Closed Auto-Generate d Referral 05/25/2024 06/24/2025 1 1 Reason Comments Pre-Op Exam Reason Comments Post Op Reason Comments Colon Cancer New patient consult Specialty Diagnoses / Procedures Referred By Contac t Referred To Contact Oncology Diagnoses Malignant neoplasm of ascending colon (HCC) Procedures CONSULT TO ONCOLOGY OFFICE/OUTPATIENT NEW HIGH MDM 60 [place] [address] [place] [address] Referral ID Status Reason Start Date Expiration Date V isits Requested Visits Authorized [id number] Closed PCP Requested Referral 06/26/2024 06/26/2025 1 [...] BE BASED ON THE PRIMARY CLINICAL RECORDS. [employer] provides no warranty or guarantee of the accuracy or completeness of information in this document.
--- OUTSIDE RECORDS SUMMARY | 2025-02-02 21:30 | XMS_ITS | Clinical Summary ---
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
--- OUTSIDE RECORDS SUMMARY | 2025-02-02 21:30 | XMS_ITS | Encounter Summary ---
Author Organization [facility] Address [address] [place] [address] Care Team Providers Care Data Security Consultant Name Role Phone Delta Pratt MD Primary Care Provider [phone] Geoffrey Edmond MD Unavailable [phone] Natalie Willis RN Unavailable [phone] Joseph Bragg MD Unavailable [phone] Source Comments In the event this information is protected by the Federal Confidentiality of Alcohol and Drug AbusePatient Records regulations: The Federal rules restrict any use of the information to criminally investigate or prosecute any alcohol or drug abuse patient.[facility] Encounter Details Date Type Department Care Team (Late st Contact Info) Description 08/31/2024 [place] [address] Provider, Ccf C: 3 [facility] Surgical Follow Up- PLEASE RESPOND Social History Tobacco Use Types Packs/Day Years Used Date Smoking Tobacco: Never Smokeless Tobacco: Current Chew Alcohol Use Standard Drinks/Week Comments Not Currently 0 (1 standard drink = 0.6 oz pur e alcohol) [facility] Utilities Answer Date Recorded In the past 12 months has [employer], gas, oil, or water company threatened [...] any time in the past 12 m [facility], were you homeless or living in a prison (including now)? No 06/23/2024 Area Deprivation Index Answer Date Rito rded National Score (1-100), lower number is lower ri sk 94 06/02/2024 State Score (1-10), lower number is lower risk 9 06/02/2024 Data from: https://www.neighborhoodatlas.medicine.[facility].edu/. Last address used for calculation [address] [...] on filedocumented in this encounter Care Teams Data Security Consultant Relationship Specialty [place] [address] [place] [address] PCP - General Family Medicine 05/15/24 Geoffrey Edmond MD [address] [facility] [address] [place] [address] General Surgery 05/15/24 Natalie Willis RN [address] [facility] [place] [address] Specialty Sap Payroll Consultant Hematology/Oncology 06/29/24 Joseph Bragg MD [address] [place] [address] Physician Hematology/Oncology 06/29/24 documented as of this encounter
--- NOTE | 2025-02-02 21:42 | ED.FEVER1 ---
HPI - Fever General Chief Complaint: Fever Stated Complaint: FEVER Time Seen by Provider: 02/02/25 21:39 Source: patient Mode of arrival: walk-in History of Present Illness HPI Narrative: fever this week. Seen at urgent care and RSV, influenza and COVID19 neg. Informed likely viral illness. Tonight spike a fever again and decided to come in. Not short of breath. Mild sinus drainage. No abdominal pain or chills Related Data Home Medications ?Medication ?Instructions ?Recorded ?Confirmed azilsartan medoxomil 80 mg tablet 80 mg PO DAILY 07/27/23 02/02/25 (Edarbi) ibuprofen 200 mg capsule 400 mg PO Q8H 02/02/25 02/02/25 Allergies Allergy/AdvReac Type Severity Reaction Status Date / Time No Known Drug Allergies Allergy Verified 02/02/25 20:58 Review of Systems ROS Status of ROS 10 or more systems reviewed and unremarkable except as noted in history and below [facility] Medical History (Updated 02/02/25 @ 23:01 by Deavn Franklin MD) Colon cancer ?C18.9 - Malignant neoplasm of colon, unspecified (ICD-10) Arthritis ?M19.90 - Unspecified osteoarthritis, unspecified site (ICD-10) Asthma ?J45.909 - Unspecified asthma, uncomplicated (ICD-10) Wound dehiscence (~06/17/24) ?T81.30XA - Disruption of wound, unspecified, initial encounter (ICD-10) Seasonal allergies ?J30.2 - Other seasonal allergic rhinitis (ICD-10) Hyponatremia ?E87.1 - Hypo-osmolality and hyponatremia (ICD-10) Atypical chest pain ?R07.89 - Other chest pain (ICD-10) Sleep apnea ?G47.30 - Sleep apnea, unspecified (ICD-10) Pancytopenia ?D61.818 - Other pancytopenia (ICD-10) Periumbilical abdominal pain ?R10.33 - Periumbilical pain (ICD-10) Intestinal malabsorption ?K90.9 - Intestinal malabsorption, unspecified (ICD-10) Neutropenic fever ?D70.9 - Neutropenia, unspecified (ICD-10) ?R50.81 - Fever presenting with conditions classified elsewhere (ICD-10) Hyperlipemia ?E78.5 - Hyperlipidemia, unspecified (ICD-10) Hypertension ?I10 - Essential (primary) hypertension (ICD-10) Surgical History (Updated 07/05/24 @ 11:13 by Marcy Phan) H/O abdominal surgery (06/21/24) ?Z98.890 - Other specified postprocedural states (ICD-10) H/O colectomy (06/14/24) ?Z90.49 - Acquired absence of other specified parts of digestive tract (ICD-10) History of esophagogastroduodenoscopy (EGD) (05/10/24) ?Z98.890 - Other specified postprocedural states (ICD-10) H/O colonoscopy (05/10/24) ?Z98.890 - Other specified postprocedural states (ICD-10) Hx of colonoscopy ?Z98.890 - Other specified postprocedural states (ICD-10) History of hip replacement ?Z96.649 - Presence of unspecified artificial hip joint (ICD-10) Family History (Updated 05/04/24 @ 13:25 by Sabiha Marie) Grandmother Family history of stroke Mother Anal cancer Other Family history of bone cancer Family history of prostate cancer Social History (Updated 07/05/24 @ 11:15 by Marcy Phan) Within the past year, how often did you have a drink containing alcohol: monthly or less Within the past year, how many standard drinks containing alcohol did you have on a typical day: 1 or 2 Within the past year, how often did you have six or more drinks on one occasion: never Total score: 0 Score interpretation: A score less than 4 is consistent with normal alcohol consumption. 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 Known occupational exposures/hazards: No Highest level of school completed/degree received: high school graduate Are you now , , , , never or living with a partner: In a typical week, how many times do you talk on the telephone with family, friends, or neighbors: 3 or more times per week How often do you get together with friends or relatives: 3 or more times per week How often do you attend episcopalian or synagogue services: never Do you belong to any clubs or organizations such as episcopalian groups unions, fraternal or athletic groups, or school groups: no Total score: 2 Score interpretation: A score of greater than or equal to 2 indicates the lowest level of social isolation. Little interest or pleasure in doing things: not at all Feeling down, depressed, or hopeless: not at all Feel stressed/tense/nervous/anxious/difficulty sleeping: not at all Due to disability, difficulty making decisions: No Do you think of yourself as: straight/heterosexual Gender Identity: male Exam Constitutional Vital Signs, click to edit/add: Last Vital Signs Temp 98.4 F 02/02/25 21:28 Pulse 91 H 02/02/25 21:28 Resp 18 02/02/25 21:28 BP 110/52 02/02/25 21:28 Pulse Ox 94 L 02/02/25 21:28 O2 Del Method Room Air 02/02/25 20:58 Common normals: no apparent distress, average body habitus, oriented x3, no limitations, healthy appearing, alert and well nourished HENKS Common normals: normocephalic and head/scalp atraumatic Eye Common normals: EOMs intact bilaterally and conjunctivae normal Respiratory Common normals: normal respiratory effort, no retractions, no use of accessory muscles and clear to auscultation bilaterally Cardio Common normals: regular rate, regular rhythm, S1 normal heart sound, S2 normal heart sound and no murmurs GI Common normals: Normal to inspection, nondistended, normoactive bowel sounds present, soft to palpation and non-tender Extremity Common normals: normal to inspection and full ROM Neuro Common normals: oriented x3, CN's II-XII intact bilaterally, moves all extremities and no focal motor deficits Psych Appearance: grossly normal Course Vital Signs Vital signs: Vital Signs Temperature 100.4 F 02/02/25 20:58 Pulse Rate 119 H 02/02/25 20:58 Respiratory Rate 02/02/25 20:58 Blood Pressure 91/64 02/02/25 20:58 Pulse Oximetry 97 02/02/25 20:58 Oxygen Delivery Method Room Air 02/02/25 20:58 Temperature 98.4 F 02/02/25 21:28 Pulse Rate 91 H 02/02/25 21:28 Respiratory Rate 18 02/02/25 21:28 Blood Pressure 110/52 02/02/25 21:28 Pulse Oximetry 94 L 02/02/25 21:28 Oxygen Delivery Method Room Air 02/02/25 20:58 MDM - Fever MDM Narrative Medical decision making narrative: patient presents complaining of fever spike at home. Ill this week. Seen at urgent care and RSV, influenza and COVID19. Fever spike tonight. Afebrile when he arrived here. cxray without infiltrate. WBC normal. mild elevation of BUN/creat. Mildly elevated lactic acid. Patient urine with evidence of pyuria. Patient hydrated with NS and given dose of levaquin. Discharged home to follow up with his family doctor next week for recheck Lab Data Labs: Lab Results 02/02/25 02/02/25 Range/Units 21:49 21:58 WBC 6.6 (4.0-11.0) 10^3/uL RBC 3.68 L (4.70-6.10) 10^6/uL Hgb 12.1 L (14.0-18.0) g/dL Hct 35.5 L (42.0-54.0) % MCV 96.5 H (80.0-94.0) fL MCH 32.9 (25.9-34.0) pg MCHC 34.1 (29.9-35.2) g/dL RDW 14.0 (11.0-15.0) % Plt Count 112 L (150-450) 10^3/uL MPV 11.6 (9.5-13.5) fL Seg Neuts % (Manual) 83.0 H (43.0-75.0) Lymphocytes % (Manual) 6.0 L (20.5-60.0) % Monocytes % (Manual) 10.0 (1.7-12.0) % Eosinophils % (Manual) 1.0 (0.9-7.0) % Basophils % (Manual) 0.0 L (0.2-2.0) % Neutrophils # (Manual) 5.47 (1.4-6.5) 10^3/uL Lymphocytes # (Manual) 0.39 L (1.20-3.80) 10^3/uL Monocytes # (Manual) 0.66 (0.30-0.80) 10^3/uL Eosinophils # (Manual) 0.06 (0.00-0.70) 10^3/uL Basophils # (Manual) 0.00 (0.00-0.10) 10^3/uL Sodium 136 (136-145) mmol/L Potassium 3.4 L (3.5-5.1) mmol/L Chloride 101 (98-107) mmol/L Carbon Dioxide 23.5 (21.0-32.0) mmol/L Anion Gap 14.9 BUN 32.0 H (7.0-18.0) mg/dL Creatinine 1.84 H (0.70-1.30) mg/dL Est GFR ( Amer) 47 L (>=60 mL/min/1.73m^2) Est GFR (Non-Af Amer) 39 L (>=60 mL/min/1.73m^2) BUN/Creatinine Ratio 17.4 Glucose 170 H (74-106) mg/dL Lactate 2.3 H* (0.4-2.0) mmol/L Calcium 8.7 (8.5-10.1) mg/dL Total Bilirubin 1.1 H (0.2-1.0) mg/dL AST 41 H (15-37) U/L ALT 54 (16-63) U/L Alkaline Phosphatase 126 H (46-116) U/L C-Reactive Protein 18.68 H (<=0.50) mg/dL Total Protein 7.2 (6.4-8.2) g/dL Albumin 2.5 L (3.4-5.0) g/dL Globulin 4.7 g/dL Albumin/Globulin Ratio 0.5 Urine Color Dk. orange (YELLOW) Urine Clarity Clear (CLEAR) Urine pH 5.5 (5.0-9.0) Ur Specific Fisher 1.015 (1.005-1.025) Urine Protein 30 A (NEG/TRACE) mg/dL Urine Glucose (UA) 100 A (NEGATIVE) mg/dL Urine Ketones Trace A (NEGATIVE) mg/dL Urine Occult Blood Trace-i (NEGATIVE) Urine Nitrite Negative (NEGATIVE) Urine Bilirubin Small A (NEGATIVE) Urine Urobilinogen 4.0 A (0.2-1.0) EU/dL Ur Leukocyte Esterase Negative (NEGATIVE) Urine RBC 0-2 (0-2) #/HPF Urine WBC 5-10 A (NONE SEEN) #/HPF Ur Squamous Epith Cells Few A (NONE/RARE) #/LPF Urine Crystals None seen (None Seen) #/HPF Urine Bacteria Small A (NONE SEEN) #/HPF Urine Casts Seen A (NONE SEEN) #/LPF Hyaline Casts Rare WBC Casts Few Urine Mucus Trace A (NONE SEEN) Ur [place]icated[place] [place] Discharge Chief Complaint: Fever Clinical Impression: Acute UTI, Dehydration Patient Disposition: Home, Self-Care Prescriptions / Home Meds: No Action Edarbi 80 mg tablet 80 mg PO DAILY ibuprofen 200 mg capsule 400 mg PO Q8H Print Language: Polish Instructions: Dehydration (ED), Urinary Tract Infection in Men (ED) Additional Instructions: follow up with Dr Pratt next week for recheck Referrals: Delta Pratt MD [Primary Care Provider, Family Practice] - 1 week
--- NOTE | 2025-02-02 21:44 | XR_ITS ---
[facility] [place] [id number] Patient Name: PIPER RODRÍGUEZ MRN: [id number] date: 1970 Sex: M Assigned Patient Location: ER Current Patient Location: ER Accession/Order Number: [id number] Exam Date: 02/02/2025 21:55 Report Date: 02/02/2025 22:29 At the request of: RONDA ARTEAGA MD Procedure: XR chest 2V PA AND LATERAL CHEST: CLINICAL HISTORY: fever COMPARISON: 01/12/2025 FINDINGS: Right-sided Zimdfk-p-Hakm/Mediport. Borderline cardiomediastinal silhouette. Lungs are clear. No effusion or pneumothorax. XR/XR chest 2V IMPRESSION: NO ACUTE CARDIOPULMONARY ABNORMALITY. Impression dictated by: Ronan Roper M.D. 02/02/2025 10:29 PM Dictation Location: [place] [address] Electronically authenticated by: [id number] Date: 02/02/2025 22:29
[2025-02-02 22:09] LABS: Hematocrit 35.5 % (42.0-54.0); Hemoglobin 12.1 g/dL (14.0-18.0); Mean Corpuscular HGB Conc 34.1 g/dL (29.9-35.2); Mean Corpuscular Hemoglobin 32.9 pg (25.9-34.0); Mean Corpuscular Volume 96.5 fL (80.0-94.0); Platelet Count 112 10^3/uL (150-450); Red Blood Count 3.68 10^6/uL (4.70-6.10); White Blood Count 6.6 10^3/uL (4.0-11.0)
[2025-02-02 22:11] LABS: Glucose Urine UA 100 mg/dL (NEGATIVE)
[2025-02-02 22:17] LABS: Alanine Aminotransferase 54 U/L (16-63); Albumin Globulin Ratio 0.5; Albumin Level 2.5 g/dL (3.4-5.0); Alkaline Phosphatase 126 U/L (46-116); Anion Gap 14.9; Aspartate Amino Transferase 41 U/L (15-37); Blood Urea Nitrogen 32.0 mg/dL (7.0-18.0); Calcium 8.7 mg/dL (8.5-10.1); Carbon Dioxide 23.5 mmol/L (21.0-32.0); Chloride 101 mmol/L (98-107); Estimated GFR (African America 47 (>=60 mL/min/1.73m^2); Estimated GFR (Non-African Ame 39 (>=60 mL/min/1.73m^2); Globulin 4.7 g/dL; Glucose 170 mg/dL (74-106); Potassium 3.4 mmol/L (3.5-5.1); Sodium 136 mmol/L (136-145); Total Protein 7.2 g/dL (6.4-8.2)
[2025-02-02 22:20] LABS: Cast Seen? SEEN #/LPF (NONE SEEN); Crystals Seen? None Seen #/HPF (None Seen); Urine Culture Indicated YES-FRMC
[2025-02-02 22:32] LABS: Lactate/Lactic Acid 2.3 mmol/L (0.4-2.0)
[2025-02-02 22:40] LABS: Basophils Abs Manual 0.00 10^3/uL (0.00-0.10); Basophils Percent Manual 0.0 % (0.2-2.0); Eosinophils Absolute Manual 0.06 10^3/uL (0.00-0.70); Eosinophils Percent Manual 1.0 % (0.9-7.0); Lymphocytes Absolute Manual 0.39 10^3/uL (1.20-3.80); Lymphocytes Percent Manual 6.0 % (20.5-60.0); Monocytes Absolute Manual 0.66 10^3/uL (0.30-0.80); Monocytes Percent Manual 10.0 % (1.7-12.0); Segmented Neut Absolute Manual 5.47 10^3/uL (1.4-6.5); Segmented Neutrophils % Manual 83.0 (43.0-75.0)
[2025-02-02] MEDS: LEVOFLOXACIN 500 MG TABLET PO (22:57)
[2025-02-02] MEDS: 0.9 % SODIUM CHLORIDE 1,000 ML 999 ML IV (22:57)
== END 2025-02-03 00:08 | disposition home or self-care (01) ==
PROVIDERS: Emergency Provider Internal Medicine; PCP Family Medicine
DX: N39.0 Urinary tract infection, site not specified (principal); E86.0 Dehydration; F17.290 Nicotine dependence, other tobacco product, uncomplicated
CPT/HCPCS: 36415; 71046; 80053; 81001; 83605; 85007; 85027; 86140; 87086; 99284

== ENCOUNTER 2025-02-20 07:59 | Outpatient (RCR) | payer BC, SELFPAY ==
[2025-01-25 14:23] VITALS: BP 120/88; PULSE 88; TEMP 36.7; O2SAT 94
[2025-02-20] MEDS: HEPARIN SODIUM (PORCINE) PF LOCK FLUSH 500 UNIT/5 ML SYRINGE IV ×2 (09:18→13:26)
[2025-02-20 09:36] LABS: Hematocrit 36.4 % (42.0-54.0); Hemoglobin 11.8 g/dL (14.0-18.0); Immature Granulocytes Abs Auto 0.02 10^3/uL (0.00-0.03); Immature Granulocytes Pct Auto 0.3 % (0.0-0.5); Lymphocytes Absolute Auto 0.8 10^3/uL (1.2-3.8); Mean Corpuscular HGB Conc 32.4 g/dL (29.9-35.2); Mean Corpuscular Hemoglobin 32.0 pg (25.9-34.0); Mean Corpuscular Volume 98.6 fL (80.0-94.0); Platelet Count 136 10^3/uL (150-450); Red Blood Count 3.69 10^6/uL (4.70-6.10); White Blood Count 5.7 10^3/uL (4.0-11.0)
[2025-02-20 10:02] LABS: Alanine Aminotransferase 27 U/L (16-63); Albumin Globulin Ratio 0.6; Albumin Level 3.2 g/dL (3.4-5.0); Alkaline Phosphatase 111 U/L (46-116); Anion Gap 14.0; Aspartate Amino Transferase 21 U/L (15-37); Blood Urea Nitrogen 10.0 mg/dL (7.0-18.0); Calcium 9.3 mg/dL (8.5-10.1); Carbon Dioxide 24.0 mmol/L (21.0-32.0); Chloride 101 mmol/L (98-107); Estimated GFR (African America >60 (>=60 mL/min/1.73m^2); Estimated GFR (Non-African Ame >60 (>=60 mL/min/1.73m^2); Globulin 5.2 g/dL; Glucose 107 mg/dL (74-106); Potassium 4.0 mmol/L (3.5-5.1); Sodium 135 mmol/L (136-145); Total Protein 8.4 g/dL (6.4-8.2)
[2025-02-20 10:53] LABS: Glucose Urine UA NEGATIVE (NEGATIVE)
[2025-02-20 19:03] LABS: A. calcoaceticus-baumannii Cpx NOT DETECTED (NOT DETECTE); Bacteroides fragilis NOT DETECTED (NOT DETECTE); Candida auris NOT DETECTED (NOT DETECTE); Candida glabrata NOT DETECTED (NOT DETECTE); Enterococcus faecalis NOT DETECTED (NOT DETECTE); Enterococcus faecium NOT DETECTED (NOT DETECTE); Klebsiella pneumoniae group NOT DETECTED (NOT DETECTE); Proteus spp. NOT DETECTED (NOT DETECTE); Salmonella spp. NOT DETECTED (NOT DETECTE); Serratia marcescens NOT DETECTED (NOT DETECTE); Staphylococcus epidermidis NOT DETECTED (NOT DETECTE); Staphylococcus lugdunensis NOT DETECTED (NOT DETECTE); Staphylococcus spp. NOT DETECTED (NOT DETECTE); Stenotrophomonas maltophilia NOT DETECTED (NOT DETECTE); Streptococcus pyogenes NOT DETECTED (NOT DETECTE); Streptococcus spp. NOT DETECTED (NOT DETECTE)
[2025-02-20 20:52] LABS: Source BLOOD
[2025-02-20 20:53] LABS: Enterobacterales DETECTED (NOT DETECTE); Klebsiella aerogenes DETECTED (NOT DETECTE)
[2025-02-21 04:07] LABS: CEA 3.3 ng/mL (0.0-4.7)
[2025-02-23 13:53] LABS: CTX-M NOT DETECTED (NOT DETECTE); IMP NOT DETECTED (NOT DETECTE); KPC NOT DETECTED (NOT DETECTE)
[2025-02-23 13:54] LABS: NDM NOT DETECTED (NOT DETECTE); OXA-48-like NOT DETECTED (NOT DETECTE); VIM NOT DETECTED (NOT DETECTE); mcr-1 NOT DETECTED (NOT DETECTE)
== END 2025-02-20 23:59 | disposition home or self-care (01) ==
LOC: HEMC 07:59
PROVIDERS: PCP Family Medicine; Visit Provider Internal Medicine Hematology & Oncology
DX: C18.0 Malignant neoplasm of cecum (principal); D64.9 Anemia, unspecified; D61.818 Other pancytopenia; D50.9 Iron deficiency anemia, unspecified; K90.9 Intestinal malabsorption, unspecified; D72.819 Decreased white blood cell count, unspecified; R11.2 Nausea with vomiting, unspecified; K21.9 Gastro-esophageal reflux disease without esophagitis; I10 Essential (primary) hypertension; Z96.643 Presence of artificial hip joint, bilateral; F17.290 Nicotine dependence, other tobacco product, uncomplicated; F10.90 Alcohol use, unspecified, uncomplicated; R79.89 Other specified abnormal findings of blood chemistry
CPT/HCPCS: 36415; 36591; 80053; 81003; 82378; 82533; 85025; 87040; 87086; 87088; 87150; 87186; 96523; G0463; J1642

== ENCOUNTER 2025-02-20 23:03 | Inpatient (IN) | payer BC, SELFPAY ==
--- OUTSIDE RECORDS SUMMARY | 2025-02-20 09:00 | XMS_ITS ---
Author Name Auto Generated Organization OHIP Care Team Providers Care Train Reservation Clerk Name Role Phone Jone Hedrick Admitting Unavailable NillJone Attending Unavailable Devan Franklin Admitting Unavailable Devan Franklin Attending Unavailable Danielito, Kisha Admitting Unavailable Danielito, Kisha Attending Unavailable RAVIINRO, KATYARATU Admitting Unavailable AUSTIN, KATYARATU Attending Unavailable HOY, GEN M Primary Care Unavailable KESHINRO, AJARATU Referring Unavailable HOY, GEN M Primary Care Unavailable KESHINRO, AJARATU Referring Unavailable HOY, GEN M Primary Care Unavailable KESHINRO, AJARATU Referring Unavailable HOY, GEN M Primary Care Unavailable HOY, GEN M Primary Care Unavailable MUSTAPHASHINRO, AJARATU Admitting Unavailable AUSTIN, AJARATU Attending Unavailable DANIELITO, KISHA Referring Unavailable Jone HEDRICK Attending Unavailable Jone HEDRICK Attending Unavailable DANIELITO, KISHA Referring Unavailable Jone HEDRICK R Attending Unavailable Jone HEDRICK Attending Unavailable Jone HEDRICK Attending Unavailable Jone HEDRICK Attending Unavailable Jone HEDRICK Attending Unavailable JOSEPH BRAGG Attending Unavailable DONIS CARIAS Referring Unavailable HOY, GEN M Primary Care Unavailable DONIS CARIAS Referring Unavailable HOY, GEN M Primary Care Unavailable DONIS CARIAS Attending Unavailable JONE HEDRICK Referring Unavailable HOY, GEN M Primary Care Unavailable DONIS CARIAS Attending Unavailable HOY, GEN M Primary Care Unavailable DONIS CARIAS Attending Unavailable HOY, GEN M Primary Care Unavailable MAYLIN CONTE Attending Unavailable MAYLIN CONTE Referring Unavailable HOY, GEN M Primary Care Unavailable JOE JONES Attending Unavailable PROBLEMS DATE TYPE CONDITION / CODE ATTENDING STATUS [facility] 01/11/2025 Active Incisional herni a, 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) [facility] Active [facility] 10/24/2024 Active Follow Up / UNK(Unknown) MUSTAPHAJAMES AVANIBridget Active [facility] 06/23/2024 Active Wound dehiscence / T81.30XA(ICD-10) [facility] 06/21/2024 Active Status post part ial colectomy / Z90.49(ICD-10) [facility] 06/21/2024 Active History of colon cancer / Z85.038(ICD-10) [facility] 06/14/2024 Active Malignant neopla sm of ascending colon (HCC) / C18.2(ICD-10) [facility] 06/14/2024 Active Post-op pain / G89.18(ICD-10) [facility] PROCEDURES No Procedure Records Found RESULTS BLOOD CULTURE Observed: 02/20/2025 9:21 AM Status: P Source: [facility] Gram Stain Gram Negative Bacilli ORGANISM: Gram Negative Bacilli (O:GNB) PERFORMED BY: [place] [address] [place] [address] PATHOLOGIST SIZE PAINTER YEYO S SUSAN M.D. Performed By: #### CUBLD ### # [address] BLOOD CULTURE Observed: 02/20/2025 9:12 AM Status: P Source: [facility] Gram Stain Gram Negative Bacilli ORGANISM: Klebsiella aerogenes (O:KLEAER) PERFORMED BY: [place] [address] PATHOLOGIST SIZE PAINTER YEYO DAVIS M.D. Performed By: #### CUBLD ### # [address] URINE CULTURE Observed: 02/02/2025 9:58 PM Status: F Source: [facility] No Growth 2 Days PERFORMED BY: [place] [address] PATHOLOGIST SIZE PAINTER YEYO DAVIS M.D. Performed By: #### CUU #### [address] PROGRESS Observed: 01/11/2025 1:00 PM Status: COMPLETED Source: [facility] HNO ID: [id number] Author: DONIS CARIAS MD Service: ? Author Type: Physician Type: Progress Notes Filed: 01/11/2025 13:34 Note Text: [facility] SURGERY CLINIC NOTE January 11, 2025 Piper Rodríguez 54 year old Recording using Uepaa software for draft documentation of the visit was discussed with the patient/authorized community service representative; all questions welcomed and answered. Patient/authorized community service representative agreed to proceed Chief Complaint: abdominal [...] recti Colonoscopy 06/03/2018 - Dr Hedrick @ [facility] Scan on 05/15/2024 9:54 AM by Be Cloud: [facility]- Operative Report 06/03/18 Colonoscopy 05/10/24 - Dr. Hedrick @ [facility] Scan on 05/16/2024 9:34 AM by Norma Magallanes: [facility] operative note (path pending) [id number] Pathology Scan on 05/22/2024 8:26 AM by Be Cloud: [facility] Pathology Report 05/11/24 COLON, Biopsy, Cecum: COLONIC [...] 2.5 View External Labs - Chemistry [ID [id number]] Surveillance CT C A P on 09/26/2024 at [facility] [place] -images uploaded into [employer] -no evidence of recurrence in chest, abdomen, pelvis Scan on 10/06/2024 10:52 AM by Dat Brown: [facility] - CT Scan, 09/26/24 Assessment [...] prn Medical Decision Making: Data Reviewed: Tests AND Documents Reviewed/ordered: Review of prior notes from [...] use: Not Currently Drug use: Not Currently CNOV Observed: 01/11/2025 1:00 PM Status: COMPLETED Source: [facility] Office Visit ([facility]) PIPER RODRÍGUEZ ([id number]) 1970 M Date Time Provider Department 01/11/25 1:00 PM DONIS CARIAS [facility] During your visit today, we recorded the following information about you: Pulse Blood pressure Weight Height 69/minute 130/80 114.3 kg 1.778 m Donis Carias MD 01/11/2025 1:34 PM Signed [facility] SURGERY CLINIC NOTE January 11, 2025 Piper Rodríguez 54 year old Recording using Uepaa software for draft documentation of the visit was discussed with the patient/authorized community service representative; all questions welcomed and answered. Patient/authorized community service representative agreed to proceed Chief Complaint: abdominal [...] recti Colonoscopy 06/03/2018 - Dr Hedrick @ [facility] Scan on 05/15/2024 9:54 AM by Be Cloud: [facility]- Operative Report 06/03/18 Colonoscopy 05/10/24 - Dr. Hedrick @ [facility] Scan on 05/16/2024 9:34 AM by Norma Magallanes: [facility] operative note (path pending) [id number] Pathology Scan on 05/22/2024 8:26 AM by Be Cloud: [facility] Pathology Report 05/11/24 COLON, Biopsy, Cecum: COLONIC [...] 2.5 View External Labs - Chemistry [ID [id number]] Surveillance CT C A P on 09/26/2024 at [facility] [place] -images uploaded into [employer] -no evidence of recurrence in chest, abdomen, pelvis Scan on 10/06/2024 10:52 AM by Dat Brown: [facility] - CT Scan, 09/26/24 Assessment [...] prn Medical Decision Making: Data Reviewed: Tests AND Documents Reviewed/ordered: Review of prior notes from [...] morbidity, mortality and/or complications of treatment plan: moderate Donis Carias MD Colorectal Surgery [1] Social History Tobacco Use Smoking status: Never Passive exposure: Past Smokeless tobacco: Current Types: Chew Vaping Use Vaping status: Never Used Substance Use Topics Alcohol use: Not Currently Drug use: Not Currently Donis Carias MD 01/11/2025 1:33 PM Signed We discussed your concerns about a possible [...] free to reach out to our office. 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 Final Path: T3 N1b. Completed 4 cycles of adjuvant chemo. Primary Visit Diagnosis:Incisional hernia, without obstruction or gangrene [K43.2] Prescriptions as of 01/11/2025 - atorvastatin (LIPITOR) 40 mg tablet Take 40 mg by mouth once daily. - ferrous sulfate 325 mg (65 mg iron) EC tablet Take 325 mg by mouth. - pantoprazole DR (PROTONIX) 40 mg tablet Take 40 mg by mouth once daily. - prochlorperazine (COMPAZINE) 10 mg tablet Take [...] tablets by mouth every 6 hours. - lactobacillus rhamnosus (CULTURELLE) 10 billion cell [...] contrast guidelines Problem List As Of Date 01/11/2025 Noted Resolved BMI 38.0-38.9,adult [Z68.38] 06/08/2024 HTN (hypertension) [I10] 06/08/2024 Smokeless tobacco use [Z72.0] 06/08/2024 SHERIE (obstructive sleep apnea) [G47.33] 06/08/2024 Malignant neoplasm of ascending colon (HCC) [C1*06/14/2024 Nicotine use disorder, F17.2 [F17.200] 06/16/2024 Wound dehiscence [T81.30XA] 06/21/2024 06/23/2024 Perioperative dehiscence of abdominal wound wit*06/21/2024 06/23/2024 Other instructions from your clinician: We discussed your concerns about a possible [...] free to reach out to our office. Disposition: Return if symptoms worsen or fail to improve. Follow-up and Disposition History for Encounter Date Provider Department Center 01/11/2025 [id number], AJARATU [facility] Encounter Status:Closed by DONIS CARIAS on 01/11/25 GENERAL SURGERY OFFICE/CLINIC NOTE Obser nancy: 12/27/2024 2:09 PM Status: F Source: [facility] General Surgery Office/Clini c Note Chief Complaint consultation for port removal HPI Staff Presents to discuss removal of [id number]. Port placed 06/2024 for chemotherapy due to [...] (COVID-19) mRNA-1273 vaccine 08/22/2020 Recorded 2024-04-17: TPV40 Result Comment: Electronical ly Signed By: FLORIDALMA PATEL, Jone Galeana\.br\Date and Time Signed: 12/27/24 14:47 EDT AMBULATORY VISIT SUMMARY Observed: 12/27 2:09 PM Status: F Source: [facility] Ambulatory Visit Summary PIPER RODRÍGUEZ :1970 Visit Date:12/27/2024 Ambulatory Visit Instructions Your Care Team Attending Physician - Jone HEDRICK MD Primary Care Physician - Gen Pratt MD This Is Your Medications List azilsartan [...] signed up for this yet, please contact [employer] at [phone] to get signed up today. Language Information Language assistance services are available as needed. CNOV Observed: 10/24/2024 10:00 AM Status: COMPLETED Source: [facility] Office Visit ([facility]) PIPER RODRÍGUEZ ([id number]) 1970 M Date Time Provider Department 10/24/24 10:00 AM DONIS CARIAS [facility] During your visit today, we recorded the following information about you: Pulse Blood pressure Weight 71/minute 160/91 114.7 kg Donis Carias MD 10/24/2024 10:19 AM Signed [facility] SURGERY CLINIC NOTE Recording using Uep[employer] software for draft documentation of the visit was discussed with the patient/authorized community service representative; all questions welcomed and answered. 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 He underwent evaluation by a sales force developer, including an echocardiogram, which was reportedly normal. [...] defect Colonoscopy 06/03/2018 - Dr Hedrick @ [facility] Scan on 05/15/2024 9:54 AM by Be Cloud: [facility]- Operative Report 06/03/18 Colonoscopy 05/10/24 - Dr. Hedrick @ [facility] Scan on 05/16/2024 9:34 AM by Norma Magallanes: [facility] operative note (path pending) [id number] Pathology Scan on 05/22/2024 8:26 AM by Be Cloud: [facility] Pathology Report 05/11/24 COLON, Biopsy, Cecum: COLONIC [...] 2.5 View External Labs - Chemistry [ID [id number]] Surveillance CT C A P on 09/26/2024 at [facility] [place] -images uploaded into [facility] -no evidence of recurrence in chest, abdomen, pelvis Scan on 10/06/2024 10:52 AM by Dat Brown: [facility] - CT Scan, 09/26/24 Assessment [...] 2025. Patient to schedule with GI at [facility]. RTC prn Medical Decision Making: Data Reviewed: Tests AND Documents Reviewed/ordered: Review of prior notes from [...] morbidity, mortality and/or complications of treatment plan: moderate Donis Carias MD Colorectal Surgery Donis Carias MD 10/24/2024 10:18 AM Signed We discussed your follow-up care after completing [...] like to have this done with Dr. Fulton. Please ensure this is scheduled and completed [...] symptoms or concerns, please contact our office. Allergies As of Date: 10/24/2024 (No Known Allergies) Date Reviewed: 10/24/2024 Reviewed by: Jocelyn Coates MA - Fully Assessed Reason for Visit: Follow Up [171] Cmt: 3 month follow up, colon cancer Primary Visit Diagnosis:Follow-up examination after colorectal surgery [Z09] Other Visit Diagnosis:History of colon cancer [Z85.038] Prescriptions as of 10/24/2024 - atorvastatin (LIPITOR) 40 mg tablet Take 40 mg by mouth once daily. - ferrous sulfate 325 mg (65 mg iron) EC tablet Take 325 mg by mouth. - pantoprazole DR (PROTONIX) 40 mg tablet Take 40 mg by mouth once daily. - prochlorperazine (COMPAZINE) 10 mg tablet Take [...] tablets by mouth every 6 hours. - lactobacillus rhamnosus (CULTURELLE) 10 billion cell [...] contrast guidelines Problem List As Of Date 10/24/2024 Noted Resolved BMI 38.0-38.9,adult [Z68.38] 06/08/2024 HTN (hypertension) [I10] 06/08/2024 Smokeless tobacco use [Z72.0] 06/08/2024 SHERIE (obstructive sleep apnea) [G47.33] 06/08/2024 Malignant neoplasm of ascending colon (HCC) [C1*06/14/2024 Nicotine use disorder, F17.2 [F17.200] 06/16/2024 Wound dehiscence [T81.30XA] 06/21/2024 06/23/2024 Perioperative dehiscence of abdominal wound wit*06/21/2024 06/23/2024 Other instructions from your clinician: We discussed your follow-up care after completing [...] like to have this done with Dr. Fulton. Please ensure this is scheduled and completed [...] symptoms or concerns, please contact our office. Disposition: Return if symptoms worsen or fail to improve. Follow-up and Disposition History for Encounter Date Provider Department Center 10/24/2024 [id number], AJARATU [facility] Encounter Status:Closed by DONIS CARIAS on 10/24/24 PROGRESS Observed: 10/24/2024 10:00 AM Status: COMPLETED Source: [facility] HNO ID: [id number] Author: DONIS CARIAS MD Service: ? Author Type: Physician Type: Progress Notes Filed: 10/24/2024 10:19 Note Text: COLORECTAL SURGERY CLINIC NOTE Recording using [employer] software for draft documentation of the visit was discussed with the patient/authorized community service representative; all questions welcomed and answered. 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 He underwent evaluation by a sales force developer, including an echocardiogram, which was reportedly normal. [...] Colonoscopy 06/03/2018 - Dr Hedrick @ [facility] Scan on 05/15/2024 9:54 AM by Be Cloud: [facility]- Operative Report 06/03/18 Colonoscopy 05/10/24 - Dr. Hedrick @ [facility] Scan on 05/16/2024 9:34 AM by Norma Magallanes: [facility] operative note (path pending) [id number] Pathology Scan on 05/22/2024 8:26 AM by Be Cloud: [facility] Pathology Report 05/11/24 COLON, Biopsy, Cecum: COLONIC [...] 2.5 View External Labs - Chemistry [ID [id number]] Surveillance CT C A P on 09/26/2024 at [facility] [place] -images uploaded into [employer] -no evidence of recurrence in chest, abdomen, pelvis Scan on 10/06/2024 10:52 AM by Dat Brown: [facility] - CT Scan, 09/26/24 Assessment [...] 2025. Patient to schedule with GI at [facility]. RTC prn Medical Decision Making: Data Reviewed: Tests AND Documents Reviewed/ordered: Review of prior notes from [...] treatment plan: yasmeen Carias MD Colorectal Surgery PROGRESS Observed: 10/09/2024 12:40 PM Status: COMPLETED Source: [facility] HNO ID: [id number] Author: TORI GANDHI RN Service: ? Author Type: Registered Nurse Type: Progress Notes Filed: 10/09/2024 12:43 Note Text: Summary: [facility] Research Pre-Screening ([id number]) Piper Rodríguez was reviewed for potential clinical trial enrollment on [facility] #[id number] by the [facility] on 10/09/24. Per initial review, patient has disease type Colon cancer, stage IIIB and appears to be not eligible based on > 60 days from surgery and patient has already started treatment. Requesting green party notified. No Study tasks were completed as a result of this initial review. Tori Gandhi, MSN, RN Research Nurse Coordinator 29 Observed: 09/27/2024 11:00 AM Status: COMPLETED Source: [facility] Addended by: JOE JONES on: 09/27/2024 04:14 PM Modules accepted: Orders PROGRESS Observed: 09/27/2024 11:00 AM Status: COMPLETED Source: [facility] Cardiac Electrophysiology Co nsultation Reason for Consult: Consideration of cardiac monitoring in the setting of chemotherapy/oxaliplatin Referring Charge Entry Specialist/PCP: No ref. provider found HPI: Piper [...] Jones MD, ScM, Msc Cardiac Electrophysiology Email: [email or web address] OFFICE VISIT Observed: 09/27/2024 11:00 AM Status: COMPLETED Source: [facility] [id number] Guillermina Rodríguezjessica Perrin 01/23 [facility] Provider Department [place] 09/27/2024 [id number] JONES [facility] No family history on file Level of Service:[id number] ID OFFICE/OUTPATIENT ESTABLISHED MOD MDM 30 MIN ORDERS ONLY Observed: 09/27/2024 12:00 AM Status: COMPLETED Source: [facility] [id number] AnnePiper Perrin 01/23 [facility] Provider Department [place] 09/27/2024 [id number] HAMPTON [facility] No family history on file ABSTRACT Observed: 09/26/2024 12:00 AM Status: COMPLETED Source: [facility] [id number] Guillermina Rodríguezjessica Perrin 02/17 [facility] Provider Department [place] 09/26/2024 [id number]-RAN GONSALEZ [facility] No family history on file GENERAL SURGERY OFFICE/CLINIC NOTE Obser nancy: 07/18/2024 2:25 PM Status: F Source: [facility] General Surgery Office/Clini c Note Chief Complaint post operative foloow up HPI Staff 13 day post operative follow up post insertion of [id number]. Denies discomfort, no use of pain medication. [...] (COVID-19) mRNA-1273 vaccine 08/22/2020 Recorded 2024-04-17: TPV40 Result Comment: Electronical ly Signed By: FLORIDALMA PATEL, Jone Galeana\.br\Date and Time Signed: 07/18/24 14:26 EST AMBULATORY VISIT SUMMARY Observed: 07/18 2:23 PM Status: F Source: [facility] Ambulatory Visit Summary PIPER RODRÍGUEZ Marychuy :1970 Visit Date:07/18/2024 Ambulatory Visit Instructions Your Diagnosis Stage III adenocarcinoma of colon Your Care Team Attending Physician - Jone HEDRICK MD Primary Care Physician - Gen Pratt MD This Is Your Medications List Contact [...] you for choosing us for your care. PROGRESS Observed: 07/07/2024 9:04 AM Status: COMPLETED Source: [facility] HNO ID: [id number] Author: MAYLIN CONTE APRN.DIRECTOR OF RESOURCE DEVELOPMENT Service: ? Author Type: Nurse Practitioner Type: Progress Notes Filed: 07/07/2024 09:33 Note Text: COLORECTAL SURGERY July 07, 2024 Piper Rodríguez 54 year old This consult was requested by Dr. Carias and my final recommendations will be communicated to the requesting health care provider by way of the shared medical record for internal providers or letter via the [employer] for external providers. Chief Complaint: [...] today. Medical Decision Making: Data Reviewed: Tests AND Documents Reviewed/ordered: Review of prior notes from hospitalizations Review of prior operative reports Review of Pathology I have independently interpreted: n/a I have discussed Piper Rodríguez's treatment plan and/or results with the patient, Dr. Carias. Risk of morbidity, mortality and/or complications of treatment plan: johann Conte APRN.DIRECTOR OF RESOURCE DEVELOPMENT Colorectal Surgery CNOV Observed: 07/07/2024 9:00 AM Status: COMPLETED Source: [facility] Office Visit ([id number]) PIPER RODRÍGUEZ ([id number]) 1970 M Date Time Provider Department 07/07/24 9:00 AM MAYLIN CONTE [id number] During your visit today, we recorded the following information about you: Temperature Pulse Blood pressure Weight 97.9 degrees 88/minute 134/77 113.4 kg Height 1.778 m Varinder Phillips [place] 07/07/2024 9:33 AM Signed What is the [...] for internal providers or letter via the [employer] for external providers. Chief Complaint: [...] today. Medical Decision Making: Data Reviewed: Tests AND Documents Reviewed/ordered: Review of prior notes from hospitalizations Review of prior operative reports Review of Pathology I have independently interpreted: n/a I have discussed Piper Rodríguez's treatment plan and/or results with the patient, Dr. Carias. Risk of morbidity, mortality and/or complications of treatment plan: johann Conte APRN.[facility] Colorectal Surgery Referring Provider: MAYLIN CONTE [[id number]] Allergies As of Date: 07/07/2024 (No Known Allergies) Date Reviewed: 07/07/2024 Reviewed by: Varinder Phillips MA - Fully Assessed Reason for Visit: Post Op Follow Up [3947] Cmt: Staple removal Primary Visit Diagnosis:Follow-up examination after colorectal surgery [Z09] Other Visit Diagnosis:Encounter for staple removal [Z48.02] Prescriptions as of 07/07/2024 - prochlorperazine (COMPAZINE) 10 mg tablet Take [...] contrast guidelines Problem List As Of Date 07/07/2024 Noted Resolved BMI 38.0-38.9,adult [Z68.38] 06/08/2024 HTN (hypertension) [I10] 06/08/2024 Smokeless tobacco use [Z72.0] 06/08/2024 SHERIE (obstructive sleep apnea) [G47.33] 06/08/2024 Malignant neoplasm of ascending colon (HCC) [C1*06/14/2024 Nicotine use disorder, F17.2 [F17.200] 06/16/2024 Wound dehiscence [T81.30XA] 06/21/2024 06/23/2024 Perioperative dehiscence of abdominal wound wit*06/21/2024 06/23/2024 Encounter Status:Closed by MAYLIN CONTE on 07/07/24 PROGRESS Observed: 07/07/2024 8:49 AM Status: COMPLETED Source: [facility] HNO ID: [id number] Author: VARINDER PHILLIPS MA Service: ? Author Type: Network Services Project Manager Type: Progress Notes Filed: 07/07/2024 09:33 Note Text: What is the reason for your visit today? Post op follow up for staple removal Who is your referring physician? Are you having poor oral intake? NO Have you had unintentional weight loss of 15 lbs/7 Kg in the last 3-6 months? YES Bowels: regular Wound: clean AND dry Temperature: No Drains: No CNPN Observed: 06/30/2024 12:00 AM Status: COMPLETED Source: [facility] Telephone (HEMASA) PIPER RODRÍGUEZ ([id number]) 1970 M Date Time Provider Department 06/30/24 CHELLE WILLIS During your visit today, we recorded the following information about you: Chelle Willis RN 06/30/2024 11:10 AM Signed Voicemail received from pt's stating pt will be going to [place] to see their oncologist, and doesn't wish [...] Fully Assessed Reason for Visit: Care Coordination [4490] Cmt: Cancelling appointments at our office Prescriptions [...] Encounter Status:Closed by SABI ALLEN on 06/30/24 PROGRESS Observed: 06/29/2024 8:14 AM Status: COMPLETED Source: [facility] HNO ID: [id number] Author: CAMRYN BEAULIEU, Research Coordinator Service: ? Author Type: Research Type: Progress Notes Filed: 06/29/2024 08:26 Note Text: Summary: [facility] Research Pre-Screening (IRB: [id number]) Piper Perrin Anne was reviewed for potential clinical trial enrollment on [facility] #[id number] by the [facility] on 06/29/24. Per initial review, patient has disease type Stage III CRC and appears to be preliminarily eligible and further testing/procedures required to determine final eligibility. Requesting green party notified. No Study tasks were completed as a result of this initial review. Camryn Beaulieu, Research Coordinator PROGRESS Observed: 06/29/2024 7:50 AM Status: COMPLETED Source: [facility] HNO ID: [id number] Author: MAYLIN CONTE APRN.DIRECTOR OF RESOURCE DEVELOPMENT Service: ? Author Type: Nurse Practitioner Type: Progress Notes Filed: 06/29/2024 08:29 Note Text: [facility] Multidisciplinary GI Tumor Board Primary Disease: ascending [...] negative for invasive carcinoma Clinical Pathologic Stage: [id number] stage IIIB Recommendations: MMR studies pending. Referral [...] and alternatives to the various treatment options LEXIE Observed: 06/29/2024 12:00 AM Status: COMPLETED Source: [facility] Telephone ([facility]) PIPER RODRÍGUEZ ([id number]) 1970 M Date Time Provider Department 06/29/24 [...] nausea/vomiting.Disp: 90 tabletRfl: 2 CONSULT TO SURVIVORSHIP [[id number]] Order #: [id number]: 1 FUTURE CONSULT TO ONCOLOGY NUTRITION [[id number]] Order #: [id number]: 1 FUTURE Prescriptions as of 07/05/2024 - [...] Encounter Status:Closed by CHELLE WILLIS on 07/05/24 GENERAL SURGERY OFFICE/CLINIC NOTE Obser nancy: 06/28/2024 4:11 PM Status: F Source: [facility] General Surgery Office/Clini c Note Chief Complaint consultation for port insertion HPI Staff 54 year old male presents on consultation from Dr. Esteves for port placement; now seeing Dr. Bragg at [facility]. Patient with metastatic colon adenocarcinoma. Right colectomy completed 06/14/24. History of Present Illness 54 yo male recently diagnosed with cecal adenocarcinoma, s/p LS right colectomy at [facility] 06/14/24, stage IIIb adenocarcinoma; had wound dehiscence requiring fascial closure 06/21/24; now seeing Dr. Bragg at [facility]; referred for port placement; no previous port [...] (C18.9: Malignant neoplasm of colon, unspecified) plan veeuqr-j-[id number] insertion under anesthesia, informed consent obtained. Ancef [...] (COVID-19) mRNA-1273 vaccine 08/22/2020 Recorded 2024-04-17: TPV40 Result Comment: Electronical ly Signed By: FLORIDALMA PATEL, Jone Bell\Date and Time Signed: 06/28/24 16:11 EST AMBULATORY VISIT SUMMARY Observed: 06/28 3:40 PM Status: F Source: [facility] Ambulatory Visit Summary PIPER RODRÍGUEZ :1970 Visit Date:06/28/2024 Ambulatory Visit Instructions Your Care Team Attending Physician - FLORIDALMA PATEL, Jone Galeana Primary Care Physician - Santa PAETL, Gen This Is Your Medications List Contact [...] you for choosing us for your care. CNOVSP Observed: 06/28/2024 11:00 AM Status: COMPLETED Source: [facility] X[facility]IER Visit (SP) Office ([place]) PIPER RODRÍGUEZ ([id number]) 1970 M Date Time Provider Department 06/28/24 11:00 AM JOSEPH BRAGG During your visit today, we recorded the following information about you: Temperature Pulse Respiration Blood pressure 97.3 degrees 74/minute 18/minute 118/79 Weight Height 115.3 kg 1.778 m Joseph Bragg MD 06/28/2024 11:29 AM Signed PATIENT NAME: Piper Rodríguez CLINIC NO.: [id number] ATTENDING PHYSICIAN: Joseph Bragg MD DATE OF SERVICE: June 28, [address] Donis Carias [id number] [address] [facility] [address] thank you for referring Piper Rodríguez for [...] 18 lymph nodes involved by metastatic adenocarcinoma (08/08). - pT3 pN1b. MSI Pending Works in a [employer]. Grand mother has colon cancer. No smoking. [...] Range Status 06/23/2024 12.7 % Final Abs [place] Date Value Ref Range Status 06/23/2024 0.84 [...] in [address] Donis Carias [address] [address] [facility] [address] thank you for allowing me to participate in Piper Rodríguez care, if there are any questions or concerns please do not hesitate to contact me at the number below. I spent a total of 60 minutes on the date of the service which included preparing to see the patient, [id number] patient care, completing clinical documentation, obtaining and/or reviewing separately obtained history, performing a medically appropriate examination, counseling and educating the patient/family/caregiver, ordering medications, tests, or procedures, communicating with other HCPs (not separately reported), independently interpreting results (not separately reported), communicating results to the patient/family/caregiver, and care coordination (not separately reported). Joseph Bragg MD. Hematology/Medical Oncology [facility] [phone] CC: Joseph Bragg MD 06/28/2024 11:13 AM Signed Ordered port placement Chemo teach for FOLFOX F/u in 2 weeks Joseph Bragg MD 06/28/2024 11:30 AM Signed Addended by: JOSEPH BRAGG on: 06/28/2024 11:30 AM Modules accepted: Orders Referring Provider: DONIS CARIAS [[id number]] Allergies As of Date: 06/28/2024 (No Known Allergies) Date Reviewed: 06/28/2024 Reviewed by: Esthela Cantrell MA - Fully Assessed Reason for Visit: Colon Cancer [529] Cmt: New patient consult Visit Diagnosis:Malignant neoplasm of ascending colon (HCC) [C18.2] Order(s):CONSULT TO ONCOLOGY [9023] Order #: [id number]: 1 IR PORTOCATH PLACEMENT [[id number]] Order #: [id number] FUTURE COMPLETE BLOOD COUNT AND DIFFERENTIAL [SQCBCDIF] Order #: [id number] FUTURE COMPREHENSIVE METABOLIC PANEL [SQCMP] Order #: [id number] FUTURE CARCINOEMBRYONIC ANTIGEN [SQCEA] Order #: [id number] FUTURE FERRITIN [SQFERR] Order #: [id number] FUTURE IRON AND TIBC [SQIRON] Order #: [id number] FUTURE MISC SEND OUT TST 1 [SQMISC1] Order #: [id number] FUTURE Level of Service: OFFICE/OUTPATIENT [facility] 60 MINUTES [37932] Additional E/M codes: VISIT CPLX INHERENT EANDM ASSOC WITH MED * Disposition: Return in about 2 weeks (around 07/12/2024). Follow-up and Disposition History for Encounter Date Provider Department Center 06/28/2024 [id number], ADA*[facility] Katia Rodriguez Prescriptions as of 06/28/2024 - methocarbamol (ROBAXIN) 500 mg tablet Take [...] contrast guidelines Problem List As Of Date 06/28/2024 Noted Resolved BMI 38.0-38.9,adult [Z68.38] 06/08/2024 HTN (hypertension) [I10] 06/08/2024 Smokeless tobacco use [Z72.0] 06/08/2024 SHERIE (obstructive sleep apnea) [G47.33] 06/08/2024 Malignant neoplasm of ascending colon (HCC) [C1*06/14/2024 Nicotine use disorder, F17.2 [F17.200] 06/16/2024 Wound dehiscence [T81.30XA] 06/21/2024 06/23/2024 Perioperative dehiscence of abdominal wound wit*06/21/2024 06/23/2024 Other instructions from your clinician: Ordered port placement Chemo teach for FOLFOX F/u in 2 weeks Encounter Status:Closed by JOSEPH BRAGG on 06/28/24 PROGRESS Observed: 06/28/2024 11:00 AM Status: COMPLETED Source: [facility] HNO ID: [id number] Author: JOSEPH BRAGG MD Service: ? Author Type: Physician Type: Progress Notes Filed: 06/28/2024 11:29 Note Text: PATIENT NAME: Piper Rodríguez [facility] NO.: [id number] ATTENDING PHYSICIAN: Joseph Bragg MD DATE OF SERVICE: June 28, [address] Donis Carias [address] [address] [facility] [address] thank you for referring Piper Rodríguez for [...] pT3 pN1b. MSI Pending Works in a [employer]. Grand mother has colon cancer. No smoking. [...] Range Status 06/23/2024 12.7 % Final Abs [place] Date Value Ref Range Status 06/23/2024 0.84 [...] in [address] Donis Carias [address] [address] [facility] [address] thank you for allowing me to participate in Piper Rodríguez care, if there are any questions or concerns please do not hesitate to contact me at the number below. I spent a total of 60 minutes on the date of the service which included preparing to see the patient, [id number]-qi-[id number] patient care, completing clinical documentation, obtaining and/or reviewing separately obtained history, performing a medically appropriate examination, counseling and educating the patient/family/caregiver, ordering medications, tests, or procedures, communicating with other HCPs (not separately reported), independently interpreting results (not separately reported), communicating results to the patient/family/caregiver, and care coordination (not separately reported). Joseph Bragg MD. Hematology/Medical Oncology [facility] [phone] CC: CASE RONEL TODD Observed: 06/23/2024 10:07 AM Status: COMPLETED Source: [facility] HNO ID: [id number] Author: ELAYNE GONZALEZ LSW Service: Care Management Author Type: Company Pilot Type: Care Mgt Initial Assessment Filed: 06/23/2024 10:12 Note Text: Summary: High Risk Readmission CARE MANAGEMENT: ASSESSMENT AND DISCHARGE PLAN SERVICE DATE: June 23, 2024 SERVICE TIME: 9:30 PCP: Gen Pratt MD Primary Contact: Extended Emergency Contact Information Primary Emergency Contact: Lisa Rodríguez Address: [address] [place] [address] Mobile Relation: Spouse Preferred language: [place] Cabin Crew needed? No Admission Status: Inpatient Insurance Provider: Marychuy [facility] Discharge Planning requested by: Per Department Practice Potential Transition Plans No Services Indicated Advance Directives Current Advance Directive: None Population Geneticist Attempted to Assist with AD Completion: Yes Action: Education Provided Current Living Arrangements and Support Lives with: Spouse/significant other Type of Residence: Private Residence (House) Support: Spouse/significant other How do you manage to accomplish the following: Independent: Ambulation;Transportation to appointments/community;Bathe/Shower;Dress;Meals/Meal Prep;Going to the bathroom;Medication Management Current Services/Equipment Current Post-Acute Service(s): None Discharge Planning Patient Goal(s): General wellness Antelope of Choice Explained: Antelope of Choice Given: No Reason Not Given: [...] : No HCPOA paperwok on file within [employer] and verified to be current as of date/time of this note Legal Next of Kin Hierarchy per [place] Revised Code: Legal Spouse Lisa [phone] Majority of Adult Children (consensus if possible) [...] DATE: June 23, 2024 TIME: 10:08 AM PROGRESS Observed: 06/23/2024 10:07 AM Status: COMPLETED Source: [facility] HNO ID: [id number] Author: DONIS CARIAS MD Service: Colorectal Author Type: Physician Type: Progress Notes Filed: 06/23/2024 13:40 Note Text: Documentation Query Please specify a diagnosis associated with the Clinical Indicators for this patient Obesity class 2 This document will become part of the patient's medical record. CNDS Observed: 06/23/2024 7:19 AM Status: COMPLETED Source: [facility] HNO ID: [id number] Author: LASHONDA DELGADO MD Service: Colorectal Author [...] patient's care with the resident. Signature: Donis Cairas MD DISCHARGE SUMMARY ADMISSION DATE: 06/21/2024 DISCHARGE [...] Your Medications These [place] were [place] [facility] [place] [address] - [address] - [phone] [place] [address] methocarbamol 500 mg tablet Future Appointments: Future Appointments Date Time Provider Department Center 07/05/2024 10:40 AM 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 APRN.DIRECTOR OF RESOURCE DEVELOPMENT [id number] [facility] You will receive a phone call from our clinic nurse to check in on you in 5-7 days from discharge before your follow up appointment. Signed by Physician: MD JOSE E Keene METAB 1999 PNL SERPL Collected: 5:05 AM Status: F Source: [facility] Order Comment: Specimen Type : BLOOD SPECIMEN Ordering Facility: [facility] Address: [place] [address] TYPE CODE TESTS RESULT OUT OF RANGE REFERENCE UNITS LAB 2345-7(LOINC) Glucose SerPl-mCnc 105 High 74-99 mg/dL Result Comment: The [place] Diabetes Association (ADA) provides guidance for cutoff [...] Standards of Medical Care in Diabetes 2016, [place] Diabetes Association. Diabetes Care. 2016.39(Suppl 1). LAB 3094-0(LOINC) BUN SerPl-mCnc 13 9-24 mg/ dL LAB 2160-0(LOINC) Creat SerPl-mCnc 0.96 0.73-1.22 mg/dL LAB 2951-2(LOINC) Sodium SerPl-sCnc 138 136-144 mmol/L LAB 2823-3(LOINC) Potassium SerPl-sCnc 4.2 3.7-5.1 mmol/L LAB 2075-0(LOINC) Chloride SerPl-sCnc 104 98-107 mmol/L LAB 2027-9(LOINC) CO2 SerPl-sCnc 24 22-30 mmo l/L LAB 00313-3(LOINC) Anion Gap SerPl-sCnc 10 8-15 mmol/L LAB 53219-4(LOINC) Calcium SerPl-mCnc 8.9 8.5-10.2 mg/dL LAB 84893-0(LOINC) Creatinine + eGFR Pnl SerPlBld 95 >=60 mL/min/1. 73m??? Result Comment: Estimated Gl omerular Filtration Rate (eGFR) is calculated using the 2020 CKD-EPI creatinine equation. This equation utilizes serum creatinine, sex, and age as parameters. The creatinine assay has traceable calibration to isotope dilution-mass spectrometry. Refer to KDIGO guidelines for clinical interpretation. In patients with unstable renal function, e.g. those with acute kidney injury, the eGFR may not accurately reflect actual GFR. Performed By: #### 63980-4, 41286-4, 2776- #### [facility] CLIA [id number] [address] [place] [address] STATES [facility] MAGNESIUM SERPL-MCNC Collected: 06/23/2024 5:05 AM S tatus: F Source: [facility] Order Comment: Specimen Type : BLOOD SPECIMEN Ordering Facility: [facility] Address: [address] [place] [address] TYPE CODE TESTS RESULT OUT OF RANGE REFERENCE UNITS LAB 92469-1(LOINC) Magnesium SerPl-mCnc 2.1 1.7-2.3 mg/dL Performed By: #### 92681-6, 29219-3, 2776-05 #### [facility] CLIA [id number] [address] [place] [address] STATES [facility] PHOSPHATE SERPL-MCNC Collected: 06/23/2024 5:05 AM S tatus: F Source: [facility] Order Comment: Specimen Type : BLOOD SPECIMEN Ordering Facility: [facility] Address: [address] [place] [address] TYPE CODE TESTS RESULT OUT OF RANGE REFERENCE UNITS LAB 2777-1(LOINC) Phosphate SerPl-mCnc 3.2 2.7-4.8 mg/dL Performed By: #### 04183-8, 07251-3, 2776-05 #### [facility] CLIA [id number] [address] [place] [address] [place] CBC W AUTO DIFF BLD Collected: 06/23/2024 5:[address] atus: F Source: [facility] Order Comment: Specimen Type : BLOOD SPECIMEN Ordering Facility: [facility] Address: [address] [place] [address] TYPE CODE TESTS RESULT OUT OF RANGE REFERENCE UNITS LAB 6690-2(LOINC) WBC # Bld Auto 6.59 3.70-11.00 k/uL LAB 789-8([facility]) RBC # Bld Auto 4.06 Low 4.20-6.00 m/ uL LAB 718-7([facility]) Hgb Bld-mCnc 11.9 Low 13.0-17.0 g/dL LAB 4544-3([facility]) Hct VFr Bld Auto 38.0 Low 39.0-51.0 % LAB 787-2([facility]) MCV RBC Auto 93.6 80.0-100.0 fL LAB 785-6([facility]) MCH RBC Qn Auto 29.3 26.0-34.0 p g LAB 786-4([facility]) MCHC RBC Auto-mCnc 31.3 30.5-36.0 g/dL LAB 52826-6([facility]) RDW RBC-Rto 14.6 11.5-15.0 % LAB 777-3([facility]) Platelet # Bld Auto 187 150-400 k/uL LAB 27026-5([facility]) PMV Bld Auto 10.8 9.0-12.7 fL LAB 770-8([facility]) Neutrophils/leuk NFr Bld Auto 54.3 % LAB 751-8([facility]) Neutrophils # Bld Auto 3.58 1.45-7.50 k/uL LAB 736-9([facility]) Lymphocytes/leuk NFr Bld Auto 27.0 % LAB 731-0([facility]) Lymphocytes # Bld Auto 1.78 1.00-4.00 k/uL LAB 5905-5([facility]) Monocytes/leuk NFr Bld Auto 12.7 % LAB 742-7([facility]) Monocytes # Bld Auto 0.84 <0.87 k/uL LAB 713-8([facility]) Eosinophil/leuk NFr Bld Auto 4.6 % LAB 711-2([facility]) Eosinophil # Bld Auto 0.30 <0.46 k/uL LAB 706-2([facility]) Basophils/leuk NFr Bld Auto 0.8 % LAB 704-7([facility]) Basophils # Bld Auto 0.05 <0.11 k/uL LAB 74151-8([facility]) Imm Granulocytes/escobar k NFr Bld Auto 0.6 % LAB 89767-1(LOINC) Imm Granulocytes # Bld Auto 0.04 <0.10 k/uL LAB 30987-6([facility]) nRBC/100 WBC Bld-Rto 0.0 /100 WBC LAB 771-6([facility]) nRBC # Bld Auto <0.01 <0.01 k/u L LAB 66318-7([facility]) Differential method Bld Auto Performed By: #### 60544-3 # ### [facility] CLIA [id number] NURSING PROG Observed: 06/22/2024 3:44 PM Status: COMPLETED Source: [facility] HNO ID: [id number] Author: AMBREEN WORRELL RN Service: Nursing Author Type: Registered Nurse Type: Nursing Progress Note Filed: 06/22/2024 15:45 Note Text: 1545 report called to AR. PROGRESS Observed: 06/22/2024 8:07 AM Status: COMPLETED Source: [facility] HNO ID: [id number] Author: LASHONDA DELGADO MD Service: Colorectal Author Type: Resident Type: Progress Notes Filed: 06/22/2024 08:11 Note Text: COLORECTAL SURGERY PROGRESS NOTE Piper Rodríguez [id number] Patient Active Hospital Problem List: Perioperative dehiscence [...] and Airways Line Duration Peripheral 06/21/24 1500 [facility] Short Left Forearm 20 Gauge <1 [...] Delgado MD General Surgery, PGY2 Please contact [phone] during the days for any questions. For nights and weekends, please contact [phone]. CBC W AUTO DIFF BLD Collected: 06/22/2024 5:[address] atus: F Source: [facility] Order Comment: Specimen Type : BLOOD SPECIMEN Ordering Facility: [facility] Address: [address] [place] [id number] TYPE CODE TESTS RESULT OUT OF RANGE REFERENCE UNITS LAB 6690-2(LOINC) WBC # Bld Auto 8.70 3.70-11.00 k/uL LAB 789-8(LOINC) RBC # Bld Auto 4.34 4.20-6.00 m/ uL LAB 718-7(LOINC) Hgb Bld-mCnc 12.8 Low 13.0-17.0 g/dL LAB 4544-3([facility]) Hct VFr Bld Auto 40.4 39.0-51.0 % LAB 787-2([facility]) MCV RBC Auto 93.1 80.0-100.0 fL LAB 785-6([facility]) MCH RBC Qn Auto 29.5 26.0-34.0 p g LAB 786-4([facility]) MCHC RBC Auto-mCnc 31.7 30.5-36.0 g/dL LAB 37559-4([facility]) RDW RBC-Rto 14.6 11.5-15.0 % LAB 777-3([facility]) Platelet # Bld Auto 192 150-400 k/uL LAB 60944-4([facility]) PMV Bld Auto 10.7 9.0-12.7 fL LAB 770-8([facility]) Neutrophils/leuk NFr Bld Auto 72.5 % LAB 751-8([facility]) Neutrophils # Bld Auto 6.31 1.45-7.50 k/uL LAB 736-9([facility]) Lymphocytes/leuk NFr Bld Auto 13.1 % LAB 731-0([facility]) Lymphocytes # Bld Auto 1.14 1.00-4.00 k/uL LAB 5905-5([facility]) Monocytes/leuk NFr Bld Auto 12.1 % LAB 742-7([facility]) Monocytes # Bld Auto 1.05 High <0.87 k/uL LAB 713-8([facility]) Eosinophil/leuk NFr Bld Auto 1.4 % LAB 711-2([facility]) Eosinophil # Bld Auto 0.12 <0.46 k/uL LAB 706-2([facility]) Basophils/leuk NFr Bld Auto 0.3 % LAB 704-7([facility]) Basophils # Bld Auto 0.03 <0.11 k/uL LAB 87116-4([facility]) Imm Granulocytes/escobar k NFr Bld Auto 0.6 % LAB 25527-0([facility]) Imm Granulocytes # Bld Auto 0.05 <0.10 k/uL LAB 36678-3([facility]) nRBC/100 WBC Bld-Rto 0.0 /100 WBC LAB 771-6([facility]) nRBC # Bld Auto <0.01 <0.01 k/u L LAB 16995-8([facility]) Differential method Bld Auto Performed By: #### 64620-5 # ### [facility] CLIA [id number] [address] [place] [address] [place] BAS METAB 2000 PNL SERPL Collected: 5:06 AM Status: F Source: [facility] Order Comment: Specimen Type : BLOOD SPECIMEN Ordering Facility: [facility] Address: [address] [place] [address] TYPE CODE TESTS RESULT OUT OF RANGE REFERENCE UNITS LAB 2345-7(INC) Glucose SerPl-mCnc 107 High 74-99 mg/dL Result Comment: The [place] Diabetes Association (ADA) provides guidance for cutoff [...] Standards of Medical Care in Diabetes 2016, [place] Diabetes Association. Diabetes Care. 2016.39(Suppl 1). LAB 3094-0(LOINC) BUN SerPl-mCnc 13 9-24 mg/ dL LAB 2160-0(LOINC) Creat SerPl-mCnc 0.93 0.73-1.22 mg/dL LAB 2951-2(LOINC) Sodium SerPl-sCnc 136 136-144 mmol/L LAB 2823-3(LOINC) Potassium SerPl-sCnc 4.6 3.7-5.1 mmol/L LAB 2075-0(LOINC) Chloride SerPl-sCnc 103 98-107 mmol/L LAB 2028-9(LOINC) CO2 SerPl-sCnc 24 22-30 mmo l/L LAB 69466-5(LOINC) Anion Gap SerPl-sCnc 9 8-15 mmol/L LAB 99132-3(LOINC) Calcium SerPl-mCnc 8.9 8.5-10.2 mg/dL LAB 46012-9(LOINC) Creatinine + eGFR Pnl SerPlBld 98 >=60 mL/min/1. 73m??? Result Comment: Estimated Gl omerular Filtration Rate (eGFR) is calculated using the 2020 CKD-EPI creatinine equation. This equation utilizes serum creatinine, sex, and age as parameters. The creatinine assay has traceable calibration to isotope dilution-mass spectrometry. Refer to KDIGO guidelines for clinical interpretation. In patients with unstable renal function, e.g. those with acute kidney injury, the eGFR may not accurately reflect actual GFR. Performed By: #### 37254-8, 2777-1, #### [facility] CLIA [id number] [address] [place] [address] MAGNESIUM SERPL-MCNC Collected: 06/22/2024 5:06 AM S tatus: F Source: [facility] Order Comment: Specimen Type : BLOOD SPECIMEN Ordering Facility: [facility] Address: [address] [place] [address] TYPE CODE TESTS RESULT OUT OF RANGE REFERENCE UNITS LAB 92924-5([facility]) Magnesium SerPl-mCnc 2.1 1.7-2.3 mg/dL Performed By: #### 34672-2, 2776-05, #### [facility] CLIA [id number] [address] [place] [address] PHOSPHATE SERPL-MCNC Collected: 06/22/2024 5:06 AM S tatus: F Source: [facility] Order Comment: Specimen Type : BLOOD SPECIMEN Ordering Facility: [facility] Address: [address] [place] [address] TYPE CODE TESTS RESULT OUT OF RANGE REFERENCE UNITS LAB 2777-(LOINC) Phosphate SerPl-mCnc 3.8 2.7-4.8 mg/dL Performed By: #### 47943-0, 277-, #### [facility] CLIA [id number] [address] [place] [address] OF [facility] NURSING PROG Observed: 06/21/2024 7:56 PM Status: COMPLETED Source: [facility] HNO ID: [id number] Author: OLYA SIEGEL RN Service: Nursing Author Type: Registered Nurse Type: Nursing Progress Note Filed: 06/21/2024 19:56 Note Text: Transfer Note: PATIENT NAME: Piper Rodríguez Patient Location: [place] [address] [address] Room: [place] [address] Patient transferred into room/unit [facility] in stable condition. Actions taken: Room oriented, call light in reach, family at beside. ANES POSTPROC EVAL Observed: 06/21/2024 5:30 PM Status: COMPLETED Source: [facility] HNO ID: [id number] Author: OLGA LIDIA WHITEHEAD MD Service: Anesthesiology Author Type: Anesthesiologist Type: Anesthesia Postprocedure Evaluation Filed: 06/21/2024 17:30 Note Text: POST ANESTHESIA EVALUATION NOTE : 1970 Procedure Summary Date: 06/21/24 Room / Location: OR07 / OR Anesthesia Start: 1549 Anesthesia Stop: 1723 [...] June 21, 2024 TIME: 5:30 PM CSN: [id number] ANES PROCEDURE NOTE Observed: 06/21/2024 4:10 PM Status: COMPLETED Source: [facility] HNO ID: [id number] Author: JULIOCESAR ENRIQUE APRN.CRNA Service: Anesthesiology Author Type: Nurse Button And Buckle Maker Type: Anesthesia Procedure Notes Filed: 06/21/2024 16:11 Note Text: ANESTHESIOLOGY PROCEDURE NOTE Airway General Information Procedure Start Time/Medication Administration: 06/21/2024 3:58 PM Procedure End Time: 06/21/2024 3:58 PM Patient location during procedure: OR Timeout Performed Pre-procedure: timeout performed Consent Obtained: Yes 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, care count team clerk and patient Staffing GEOGRAPHY TEACHER: Juliocesar Enrique APRN.GEOGRAPHY TEACHER Performed by: EVIN Indications and Patient Condition [...] June 21, 2024 TIME: 4:10 PM CSN: [id number] OPERATIVE NO Observed: 06/21/2024 3:50 PM Status: COMPLETED Source: [facility] HNO ID: [id number] Author: DONIS CARIAS MD Service: Colorectal Author Type: Physician Type: Operative Report Filed: 06/21/2024 17:12 Note Text: COLON AND RECTAL SURGERY OPERATIVE REPORT PATIENT NAME: Piper Rodríguez ADMISSION DATE: 06/21/2024 LOG ID: [id number] SURGERY/PROCEDURE DATE: 06/21/2024 INCISION/PROCEDURE START TIME: 4:08 PM INCISION CLOSE/PROCEDURE END TIME: 5:06 PM AGE: [age] year old SEX: male 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 [employer](S): Surgeons and Role: * Donis Carias MD [...] Surgery Division of Colon and Rectal Surgery ANES PRE-OP Observed: 06/21/2024 3:43 PM Status: COMPLETED Source: [facility] HNO ID: [id number] Author: YU BERRIOS MD Service: Anesthesiology Author Type: Anesthesiologist Type: Anesthesia Preprocedure Evaluation Filed: 06/21/2024 15:44 Note Text: ANESTHESIOLOGY DAY OF SURGERY NOTE : 1970 Procedure Information Date/Time: 06/21/24 1500 Procedure: EXPLORATORY LAPAROTOMY (Abdomen) Location: [facility]07 / [facility] Surgeons: Donis Carias [...] June 21, 2024 TIME: 3:43 PM CSN: [id number] HISTORY PHYSICAL Observed: 06/21/2024 2:54 PM Status: [facility]PLETED [id number] Author: MAIKEL JUSTICE MD Service: Colorectal Author [...] Gino Angel MD PRIMARY CARE PHYSICIAN: Gen Pratt MD HISTORY OF PRESENT ILLNESS: Mr. Rodríguez [...] contents. They were worried so presented to [facility]. Pt's showed me a photo of wound [...] concerns and was told to present to [place] ED for further evaluation. Per pt has [...] DATE: June 21, 2024 TIME: 2:56 PM ED PROV NOTE Observed: 06/21/2024 2:12 PM Status: COMPLETED Source: [facility] HNO ID: [id number] Author: GINO ANGEL MD Service: Emergency Medicine [...] on June [address] Carias at [facility]. States had been doing well. States that yesterday the wound opened minimally. He presented to [facility] for evaluation. States the physician [...] team for further management and evaluation at bedside. Patient declines anything for pain at this time. General surgery resident here to evaluate patient at bedside. Plan to take 2 OR from ED. No indication for CT imaging per vice president of product marketing. CT abdomen pelvis discontinued. Will start empiric Zosyn. CBC is back and reveals no leukocytosis, not anemic, normal platelet count. Chemistry pending. History and Record Review Clinical information obtained from an independent historian. History obtained from or confirmed by: see ED course. External record(s) reviewed: prior outpatient record and see ED Course. Management Management of the patient was discussed with:admitting team, see ED course and hospice care consultant Discussion with admitting team included: General surgery Meds Given During Visit ED Medication Administration from 06/21/2024 1234 to 06/21/2024 1437 None Re-evaluation Resting comfortably Disposition The patient was admitted. Counseled patient and spouse regarding lab results and suspected diagnosis. Admitted to Operating Room. SIGNATURE: Ambreen Ferrera PA-C Attending Note Attestation for: REGROOVER/LENIN I have personally performed a face to face assessment of the patient and have reviewed the SHEKHAR note. I personally made/approved the management plan and take responsibility for the patient management. I performed a substantive portion of the visit including all aspects of the following. My conley findings include: Patient had dehiscence of his abdominal wound. We did call surgery and they will take to surgery. I started the patient on antibiotics here in the ED. Signature: Gino Angel MD Date: 06/21/2024 Time: 4:14 PM AMBREEN FERRERA 06/21/24 1437 GINO ANGEL 06/21/24 1614 COMP METAB 2000 PNL SERPL Collected: 2:08 PM Status: F Source: [facility] Order Comment: Specimen Type : BLOOD SPECIMEN Ordering Facility: [facility] Address: [address] [place] [address] TYPE CODE TESTS RESULT OUT OF RANGE REFERENCE UNITS LAB 2885-2(LOINC) Prot SerPl-mCnc 8.0 6.3-8.0 g/dL LAB 1751-7(LOINC) Albumin SerPl-mCnc 4.2 3.9-4.9 g/dL LAB 42638-6(LOINC) Calcium SerPl-mCnc 9.6 8.5-10.2 mg/dL LAB 1975-2(LOINC) Bilirub SerPl-mCnc 0.3 0.2-1.3 mg/dL LAB 6768-6(LOINC) ALP SerPl-cCnc 72 38-113 U/L LAB 1920-8(LOINC) AST SerPl-cCnc 58 High 14-40 U/L LAB 1742-6(LOINC) ALT SerPl-cCnc 91 High 10-54 U/L LAB 2345-7(LOINC) Glucose SerPl-mCnc 102 High 74-99 mg/dL Result Comment: The [place] Diabetes Association (ADA) provides guidance for cutoff [...] Standards of Medical Care in Diabetes 2016, [place] Diabetes Association. Diabetes Care. 2016.39(Suppl 1). LAB 3094-0(LOINC) BUN SerPl-mCnc 14 9-24 mg/ dL LAB 2160-0(LOINC) Creat SerPl-mCnc 0.99 0.73-1.22 mg/dL LAB 2951-2(LOINC) Sodium SerPl-sCnc 138 136-144 mmol/L LAB 2823-3(LOINC) Potassium SerPl-sCnc 4.3 3.7-5.1 mmol/L LAB 2075-0(LOINC) Chloride SerPl-sCnc 99 98-107 mmol/L LAB 8-9(LOINC) CO2 SerPl-sCnc 28 22-30 mmo l/L LAB 48282-8(LOINC) Anion Gap SerPl-sCnc 11 8-15 mmol/L LAB 85115-2(LOINC) Creatinine + eGFR Pnl SerPlBld 91 >=60 mL/min/1. 73m??? Result Comment: Estimated Gl omerular Filtration Rate (eGFR) is calculated using the 2020 CKD-EPI creatinine equation. This equation utilizes serum creatinine, sex, and age as parameters. The creatinine assay has traceable calibration to isotope dilution-mass spectrometry. Refer to KDIGO guidelines for clinical interpretation. In patients with unstable renal function, e.g. those with acute kidney injury, the eGFR may not accurately reflect actual GFR. Performed By: #### 62900-6, 35583-8 #### [facility] CLIA [id number] [address] [place] [address] [place] MAGNESIUM SERPL-MCNC Collected: 06/21/2024 2:08 PM S tatus: F Source: [facility] Order Comment: Specimen Type : BLOOD SPECIMEN Ordering Facility: [facility] Address: [address] [place] [address] TYPE CODE TESTS RESULT OUT OF RANGE REFERENCE UNITS LAB 38181-7(LOINC) Magnesium SerPl-mCnc 2.3 1.7-2.3 mg/dL Performed By: #### 29473-8, 49719-9 #### [facility] CLIA [id number] CBC PNL BLD AUTO Collected: 06/21/2024 2:08 PM Statu s: F Source: [facility] Order Comment: Specimen Type : BLOOD SPECIMEN Ordering Facility: [facility] Address: [address] [place] [address] TYPE CODE TESTS RESULT OUT OF RANGE REFERENCE UNITS LAB 6690-2([facility]) WBC # Bld Auto 7.87 3.70-11.00 k/uL LAB 789-8([facility]) RBC # Bld Auto 4.86 4.20-6.00 m/uL LAB 718-7([facility]) Hgb Bld-mCnc 14.3 13.0-17.0 g/dL LAB 4544-3([facility]) Hct VFr Bld Auto 45.2 39.0-51.0 % LAB 787-2(INC) MCV RBC Auto 93.0 80.0-100.0 fL LAB 785-6(INC) MCH RBC Qn Auto 29.4 26.0-34.0 pg LAB 786-4(LOINC) MCHC RBC Auto-mCnc 31.6 30.5-36.0 g/dL LAB 90166-0(INC) RDW RBC-Rto 14.7 11.5-15.0 % LAB 777-3(INC) Platelet # Bld Auto 222 150-400 k/uL LAB 23477-5([facility]) PMV Bld Auto 11.0 9.0-12.7 fL LAB 771-6([facility]) nRBC # Bld Auto <0.01 <0.01 k/uL Performed By: #### 40439-3 # ### [facility] CLIA [id number] [address] EKG Observed: 06/21/2024 2:04 PM Status: F Source: [facility] Ventricular Rate : 47 BPM Atrial Rate : 48 BPM P-R Interval : 173 ms QRS Duration : 105 ms Q-T Interval : 447 ms QTC Calculation(Bazett) : 396 ms Calculated P [place] : 44 degrees Calculated R [place] : 40 degrees Calculated T [place] : 58 degrees Sinus bradycardia Otherwise Normal ECG Confirmed by MD ANGEL JAMES ([id number]) on 06/21/2024 2:14:56 PM NAME : PIPER RODRÍGUEZ PID : [id number] : 1970 Gender : Male Race : [...] Referred By : , Acquired by : [id number], ED NOTE Observed: 06/21/2024 1:48 PM Status: COMPLETED Source: [facility] HNO ID: [id number] Author: JOSÉ MIGUEL LARA RN Service: ? Author Type: Registered Nurse Type: ED Notes Filed: 06/21/2024 13:48 Note Text: Bed: 55-ED Expected date: Expected time: Means of arrival: Comments: triage ED TRIAGE NOTE Observed: 06/21/2024 1:41 PM Status: COMPLETED Source: [facility] HNO ID: [id number] Author: ETHAN QUINTERO DO Service: Emergency Medicine [...] HANDP as well as MDM SIGNATURE: DO LEXIE Vee Observed: 06/21/2024 12:00 AM Status: COMPLETED Source: [facility] Telephone ([facility]) PIPER RODRÍGUEZ ([id number]) 1970 M Date Time Provider Department 06/21/24 DONIS CARIAS [facility] During your visit today, we recorded the [...] for his appointment tomorrow vs going to [place] ED. Ultimately, he thinks he will go to [place] ED. Allergies As of Date: 06/21/2024 (No Known Allergies) Date Reviewed: 06/15/2024 Reviewed by: Mami Bustos, RN - Fully Assessed Prescriptions as of [...] Encounter Status:Closed by JOCELYN CANTRELL on 06/21/24 LEXIE Observed: 06/20/2024 12:00 AM Status: COMPLETED Source: [facility] Telephone ([facility]) PIPER RODRÍGUEZ ([id number]) 1970 M Date Time Provider Department 06/20/24 DONIS CARIAS [facility] During your visit today, we recorded the following information about you: Maura Casiano 06/20/2024 3:02 PM Signed Patient calling concerned about surgical incision. She states it has opened up. Asking to speak to nurse to find out if they should go to local ER # [phone] Jocelyn Cantrell RN 06/20/2024 3:17 PM Signed [...] Encounter Status:Closed by JOCELYN CANTRELL on 06/20/24 LEXIE Observed: 06/19/2024 12:00 AM Status: COMPLETED Source: [facility] Telephone ([facility]) PIPER RODRÍGUEZ ([id number]) 1970 M Date Time Provider Department 06/19/24 DONIS CARIAS [facility] During your visit today, we recorded the following information about you: Maura Casiano 06/19/2024 1:29 PM Signed Patient had surgery on 06/14/24. He is asking to speak to a nurse about his restrictions and what he can and cannot do # [phone] Jocelyn Cantrell, RN 06/19/2024 1:48 PM Signed [...] Fully Assessed Reason for Visit: Patient Question [3960] Prescriptions as of 06/19/2024 - acetaminophen (TYLENOL) [...] Encounter Status:Closed by JOCELYN CANTRELL on 06/19/24 CNCO Observed: 06/19/2024 12:00 AM Status: COMPLETED Source: [facility] Letter Text PROGRESS Observed: 06/16/2024 12:08 PM Status: COMPLETED Source: [facility] HNO ID: [id number] Author: DONIS CARIAS MD Service: Colorectal Author [...] become part of the patient's medical record. CNDS Observed: 06/16/2024 9:30 AM Status: COMPLETED Source: [facility] HNO ID: [id number] Author: DONIS CARIAS MD Service: Colorectal Author [...] which included preparing to see the patient, [id number] patient care, completing clinical documentation, obtaining and/or reviewing separately obtained history, performing a medically appropriate examination, and care coordination (not separately reported). SIGNATURE: 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 APRN.DIRECTOR OF RESOURCE DEVELOPMENT DATE: June 16, 2024 TIME: 9:30 AM PROGRESS Observed: 06/16/2024 7:16 AM Status: COMPLETED Source: [facility] HNO ID: [id number] Author: DAVON WATSON MD Service: Colorectal Author [...] PGY-6 Colorectal Surgery Resident Blue Team Pager: [phone] General Surgery Colorectal Surgery On-Call Pager: [phone](Weekends, Weekdays 6PM-6AM)` SUBJECTIVE: No acute issues overnight. [...] 0659 06/16/24 0700 - 06/17/24 0659 Shift 4929-7971 6909-2066 9935-0166 24 Hour Total 3967-6103 4611-2818 3602-5035 24 Hour Total INTAKE Shift Total OUTPUT [...] 1.25* BUN 19 GLUC 105* CA 8.9 CBC W AUTO DIFF BLD Collected: 06/16/2024 6:[address] atus: F Source: [facility] Order Comment: Specimen Type : BLOOD SPECIMEN Ordering Facility: [facility] Address: [address] [place] [address] TYPE CODE TESTS RESULT OUT OF RANGE REFERENCE UNITS LAB 6690-2(LOINC) WBC # Bld Auto 6.54 3.70-11.00 k/uL LAB 789-8(LOINC) RBC # Bld Auto 4.61 4.20-6.00 m/ uL LAB 718-7(LOINC) Hgb Bld-mCnc 13.8 13.0-17.0 g/dL LAB 4544-3(LOINC) Hct VFr Bld Auto 44.0 39.0-51.0 % LAB 787-2(LOINC) MCV RBC Auto 95.4 80.0-100.0 fL LAB 785-6(LOINC) MCH RBC Qn Auto 29.9 26.0-34.0 p g LAB 786-4(LOINC) MCHC RBC Auto-mCnc 31.4 30.5-36.0 g/dL LAB 77426-1([facility]) RDW RBC-Rto 15.6 High 11.5-15.0 % LAB 777-3([facility]) Platelet # Bld Auto 191 150-400 k/uL LAB 01023-9([facility]) PMV Bld Auto 11.2 9.0-12.7 fL LAB 770-8([facility]) Neutrophils/leuk NFr Bld Auto 66.1 % LAB 751-8([facility]) Neutrophils # Bld Auto 4.32 1.45-7.50 k/uL LAB 736-9([facility]) Lymphocytes/leuk NFr Bld Auto 18.8 % LAB 731-0([facility]) Lymphocytes # Bld Auto 1.23 1.00-4.00 k/uL LAB 5905-5([facility]) Monocytes/leuk NFr Bld Auto 11.6 % LAB 742-7([facility]) Monocytes # Bld Auto 0.76 <0.87 k/uL LAB 713-8([facility]) Eosinophil/leuk NFr Bld Auto 2.4 % LAB 711-2([facility]) Eosinophil # Bld Auto 0.16 <0.46 k/uL LAB 706-2([facility]) Basophils/leuk NFr Bld Auto 0.6 % LAB 704-7([facility]) Basophils # Bld Auto 0.04 <0.11 k/uL LAB 44660-4([facility]) Imm Granulocytes/escobar k NFr Bld Auto 0.5 % LAB 15766-1([facility]) Imm Granulocytes # Bld Auto 0.03 <0.10 k/uL LAB 16945-2([facility]) nRBC/100 WBC Bld-Rto 0.0 /100 WBC LAB 771-6([facility]) nRBC # Bld Auto <0.01 <0.01 k/u L LAB 59873-5([facility]) Differential method Bld Auto Performed By: #### 42200-6 # ### [facility] CLIA [id number] [address] [place] [address] [place] BAS METAB 2000 PNL SERPL Collected: 6:34 AM Status: F Source: [facility] Order Comment: Specimen Type : BLOOD SPECIMEN Ordering Facility: [facility] Address: [address], [place] [id number] TYPE CODE TESTS RESULT OUT OF RANGE REFERENCE UNITS LAB 2345-7(LOINC) Glucose SerPl-mCnc 162 High 74-99 mg/dL Result Comment: The [place] Diabetes Association (ADA) provides guidance for cutoff [...] Standards of Medical Care in Diabetes 2016, [place] Diabetes Association. Diabetes Care. 2016.39(Suppl 1). LAB 3094-0(LOINC) BUN SerPl-mCnc 10 9-24 mg/ dL LAB 2160-0(LOINC) Creat SerPl-mCnc 0.90 0.73-1.22 mg/dL LAB 2951-2(LOINC) Sodium SerPl-sCnc 137 136-144 mmol/L LAB 2823-3(LOINC) Potassium SerPl-sCnc 4.4 3.7-5.1 mmol/L LAB 2075-0(LOINC) Chloride SerPl-sCnc 103 98-107 mmol/L LAB 2028-9(LOINC) CO2 SerPl-sCnc 22 22-30 mmo l/L LAB 67526-4(LOINC) Anion Gap SerPl-sCnc 12 8-15 mmol/L LAB 78025-4(LOINC) Calcium SerPl-mCnc 8.9 8.5-10.2 mg/dL LAB 64440-6(LOINC) Creatinine + eGFR Pnl SerPlBld 102 >=60 mL/min/1. 73m??? Result Comment: Estimated Gl omerular Filtration Rate (eGFR) is calculated using the 2020 CKD-EPI creatinine equation. This equation utilizes serum creatinine, sex, and age as parameters. The creatinine assay has traceable calibration to isotope dilution-mass spectrometry. Refer to KDIGO guidelines for clinical interpretation. In patients with unstable renal function, e.g. those with acute kidney injury, the eGFR may not accurately reflect actual GFR. Performed By: #### 39217-5 # ### [facility] CLIA [id number] [address] [place] [id number] [facility] CASE MGT INOLGA TODD Observed: 06/15/2024 11:19 AM Status: COMPLETED Source: [facility] HNO ID: [id number] Author: GELY AKINS RN Service: Care Management Author Type: Registered Nurse Type: Care Mgt Initial Assessment Filed: 06/15/2024 11:22 Note Text: CARE MANAGEMENT: ASSESSMENT AND DISCHARGE PLAN SERVICE DATE: June 15, 2024 SERVICE TIME: 11:00am PCP: Gen Pratt MD Primary Contact: Extended Emergency Contact Information Primary Emergency Contact: Lisa Rodríguez Address: [address] [place] [address] Mobile Relation: Spouse Preferred language: [place] Cabin Crew needed? No Admission Status: Inpatient Insurance Provider: O SUPER[employer] PPO Discharge Planning requested by: Per Department Practice Potential Transition Plans Home Advance Directives Current Advance Directive: None Population Geneticist Attempted to Assist with AD Completion: Yes Action: Education Provided Current Living Arrangements and Support Lives with: Spouse/significant other Type of Residence: Private Residence (House) Does the patient have to climb stairs at home?: Yes;stairs outside the home Support: Family members, Spouse/significant other How do you manage to accomplish the following: Independent: Ambulation;Bathe/Shower;Dress;Meals/Meal Prep;Going to the bathroom;Medication Management;Transportation to appointments/community Current Services/Equipment Current Post-Acute Service(s): None Discharge Planning Patient Goal(s): General wellness, Be able to go home, Independent living, Be able to drive Antelope of Choice Explained: Antelope of Choice Given: No Reason Not Given: [...] soon. Pt lives with spouse. 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 Pt reports he has good support system. Denies needs. No skilled needs identified. Spouse will transport home at discharge. CM remains available if needs arise. SIGNATURE: Gely Akins RN PATIENT NAME: Piper Rodríguez DATE: June 15, 2024 TIME: 11:20 AM NUTRITION Observed: 06/15/2024 9:44 AM Status: COMPLETED Source: [facility] HNO ID: [id number] Author: SINDHU ARZATE RD Service: Nutrition Therapy [...] Arzate RD June 15, 2024 9:44 AM PROGRESS Observed: 06/15/2024 8:29 AM Status: COMPLETED Source: [facility]NO ID: [id number] Author: LASHONDA DELGADO MD Service: Colorectal Author [...] Date: 06/15/2024 COLORECTAL SURGERY PROGRESS NOTE Piper Marychuy Anne [id number] Patient Active Hospital Problem List: Malignant neoplasm [...] and Airways Line Duration Peripheral 06/14/24 0816 [facility] Left Antecubital 20 Gauge 1 day Peripheral 06/14/24 0902 Right Hand 20 Gauge <1 day SURGERY/PROCEDURE: Procedure(s) and Anesthesia Type: * LAPAROSCOPY COLECTOMY, PARTIAL, W/ REMOVAL TERMINAL ILEUM W/ ILEOCOLOSTOMY - General ASSESSMENT AND PLAN Piperjessica Rodríguez is a 54 year old male [...] Delgado MD General Surgery, PGY2 Please contact [phone] during the days for any questions. For nights and weekends, please contact [phone]. CBC W AUTO DIFF BLD Collected: 06/15/2024 4:[address] atus: F Source: [facility] Order Comment: Specimen Type : BLOOD SPECIMEN Ordering Facility: [facility] Address: [address] [place] [address] TYPE CODE TESTS RESULT OUT OF RANGE REFERENCE UNITS LAB 6690-2(LOINC) WBC # Bld Auto 9.78 3.70-11.00 k/uL LAB 789-8(LOINC) RBC # Bld Auto 4.51 4.20-6.00 m/ uL LAB 718-7(LOINC) Hgb Bld-mCnc 13.8 13.0-17.0 g/dL LAB 4544-3(LOINC) Hct VFr Bld Auto 41.5 39.0-51.0 % LAB 787-2(LOINC) MCV RBC Auto 92.0 80.0-100.0 fL LAB 785-6([facility]) MCH RBC Qn Auto 30.6 26.0-34.0 p g LAB 786-4([facility]) MCHC RBC Auto-mCnc 33.3 30.5-36.0 g/dL LAB 69756-3([facility]) RDW RBC-Rto 15.5 High 11.5-15.0 % LAB 777-3([facility]) Platelet # Bld Auto 176 150-400 k/uL LAB 81030-8([facility]) PMV Bld Auto 10.8 9.0-12.7 fL LAB 770-8([facility]) Neutrophils/leuk NFr Bld Auto 77.7 % LAB 751-8([facility]) Neutrophils # Bld Auto 7.59 High 1.45-7.50 k/uL LAB 736-9([facility]) Lymphocytes/leuk NFr Bld Auto 10.3 % LAB 731-0([facility]) Lymphocytes # Bld Auto 1.01 1.00-4.00 k/uL LAB 5905-5([facility]) Monocytes/leuk NFr Bld Auto 10.9 % LAB 742-7([facility]) Monocytes # Bld Auto 1.07 High <0.87 k/uL LAB 713-8([facility]) Eosinophil/leuk NFr Bld Auto 0.2 % LAB 711-2([facility]) Eosinophil # Bld Auto <0.03 <0.46 k/uL LAB 706-2([facility]) Basophils/leuk NFr Bld Auto 0.3 % LAB 704-7([facility]) Basophils # Bld Auto 0.03 <0.11 k/uL LAB 49689-7([facility]) Imm Granulocytes/escobar k NFr Bld Auto 0.6 % LAB 46978-3([facility]) Imm Granulocytes # Bld Auto 0.06 <0.10 k/uL LAB 07692-0([facility]) nRBC/100 WBC Bld-Rto 0.0 /100 WBC LAB 771-6([facility]) nRBC # Bld Auto <0.01 <0.01 k/u L LAB 60060-6([facility]) Differential method Bld Auto Performed By: #### 60135-6 # ### [facility] CLIA [id number] [address] [place] [address] [place] BAS METAB 2000 PNL SERPL Collected: 4:42 AM Status: F Source: [facility] Order Comment: Specimen Type : BLOOD SPECIMEN Ordering Facility: [facility] Address: [facility] [place] [address] TYPE CODE TESTS RESULT OUT OF RANGE REFERENCE UNITS LAB 2345-7(LOINC) Glucose SerPl-mCnc 105 High 74-99 mg/dL Result Comment: The [place] Diabetes Association (ADA) provides guidance for cutoff [...] Standards of Medical Care in Diabetes 2016, [place] Diabetes Association. Diabetes Care. 2016.39(Suppl 1). LAB 3094-0(LOINC) BUN SerPl-mCnc 19 9-24 mg/ dL LAB 2160-0(LOINC) Creat SerPl-mCnc 1.25 High 0.73-1.22 mg/dL LAB 2951-2(LOINC) Sodium SerPl-sCnc 134 Low 136-144 mmol/L LAB 2823-3(LOINC) Potassium SerPl-sCnc 4.8 3.7-5.1 mmol/L LAB 2075-0(LOINC) Chloride SerPl-sCnc 100 98-107 mmol/L LAB 2028-9(LOINC) CO2 SerPl-sCnc 21 Low 22-30 mmo l/L LAB 10245-5(LOINC) Anion Gap SerPl-sCnc 13 8-15 mmol/L LAB 31455-7(LOINC) Calcium SerPl-mCnc 8.9 8.5-10.2 mg/dL LAB 39644-5(LOINC) Creatinine + eGFR Pnl SerPlBld 69 >=60 mL/min/1. 73m??? Result Comment: Estimated Gl omerular Filtration Rate (eGFR) is calculated using the 2020 CKD-EPI creatinine equation. This equation utilizes serum creatinine, sex, and age as parameters. The creatinine assay has traceable calibration to isotope dilution-mass spectrometry. Refer to KDIGO guidelines for clinical interpretation. In patients with unstable renal function, e.g. those with acute kidney injury, the eGFR may not accurately reflect actual GFR. Performed By: #### 45758-1 # ### [facility] CLIA [id number] [place] [address] ANES POSTPROC EVAL Observed: 06/14/2024 3:59 PM Status: COMPLETED Source: [facility] HNO ID: [id number] Author: ILA MORTENSEN MD Service: Critical Care Author Type: Anesthesiologist Type: Anesthesia Postprocedure Evaluation Filed: 06/14/2024 16:00 Note Text: POST ANESTHESIA EVALUATION NOTE : 1970 Procedure Summary Date: 06/14/24 Room / Location: [place] [address] / OR Anesthesia Start: 0848 Anesthesia Stop: [...] June 14, 2024 TIME: 3:59 PM CSN: [id number] SURGICAL PATHOLOGY Collected: 10:43 AM Status: F Source: [facility] Order Comment: Specimen Type : TISSUE SPECIMEN Ordering Facility: [facility] Address: [address] [place] [address] TYPE CODE TESTS RESULT OUT OF RANGE REFERENCE UNITS PATHOLOGY [id number] CASE REPORT Result Comment: Surgical Pat hology Report Case: [id number] Authorizing Provider: Donis Carias MD Collected: 06/14/2024 10:43 AM Ordering Location: [facility] Received: 06/14/2024 11:18 AM Operating Room Pathologist: Samir De La Cruz MD Specimen: Colon, Resection, right colon PATHOLOGY [id number] FINAL DIAGNOSIS Result Comment: Terminal ile um, right colon, appendix, and omentum, resection: - Invasive moderately differentiated colonic adenocarcinoma. - Three of 18 lymph nodes involved by metastatic adenocarcinoma (3/18). - Appendix with fibrous obliteration of the tip. - Omentum with no evidence of tumor. - Terminal ileum with no evidence of tumor. - See synoptic report. OLOGY [id number] BLOCK FOR ADDITIONAL BIOMARKERS/MOLE CULAR STUDIES A6 PATHOLOGY [id number] SYNOPTIC REPORT Result Comment: COLON AND RE CTUM: Resection COLON AND RECTUM: RESECTION - All [...] pN1b ADDITIONAL FINDINGS Additional Findings: None identified PATHOLOGY [id number] GROSS DESCRIPTION Result Comment: A. Colon, Re section Received in formalin designated right colon is [...] reveal any areas of induration or nodularity. Sports Trainer sections are submitted as follows: A1 perpendicular [...] 2024 1:43 PM Gross examination performed at [facility], [address] [place] [address] PATHOLOGY CDX2 CLINICAL HISTORY Result Comment: Pre-op diagn osis: Malignant neoplasm of ascending colon (HCC) [C18.2] PATHOLOGY LAB FINAL PERFORMING LAB Result Comment: Diagnostic i nterpretation performed at: [facility], [address] [place] [address] CLIA# [id number] Plastic And Reconstructive Surgeon: Kenneth Rajput MD Performed By: #### S #### [facility] CLIA [id number] [address] [place] [address] STATES OF [facility] CLIA [id number] [address] [place] [address] MISMATCH REPAIR PROTEINS BY IHC Collected: 06/14/2024 10:43 AM Status: F Source: [facility] Order Comment: Specimen Type : TISSUE SPECIMEN Ordering Facility: [facility] Address: [place] [id number] TYPE CODE TESTS RESULT OUT OF RANGE REFERENCE UNITS LAB 2975483020 MMR INTERPRETATION Proficient (Microsatellite Stable) LAB 4010049752 MLH1 IMMUNOHISTOCHEMIC AL RESULTS Normal/Intact Nuclear Expression LAB 5326177067 PMS2 IMMUNOHISTOCHEMIC AL RESULTS Normal/Intact Nuclear Expression LAB 7847565433 MSH2 IMMUNOHISTOCHEMIC AL RESULTS Normal/Intact Nuclear Expression LAB [id number] MSH6 IMMUNOHISTOCHEMIC AL RESULTS Normal/Intact Nuclear Expression LAB 8602034547 MLH1 PROMOTER METHYLATION ASSAY No LAB 2448565015 TUMOR TYPE MMR Primary Color ectal Adenocarcinoma LAB [id number] [facility] CASE NUMBER MMR [id number] LAB 4950930198 FIXATIVE Formalin, 10% Neutral Buffered LAB 9126074156 BIOMARKER INTERPRETATION COMMENT AND REFERENCE RANGE Result Comment: Intact expre ssion of MMR (mismatch repair) proteins by immunohistochemistry [...] patients with metastatic carcinoma, Alana et al. ([facility] 2015;372:4989-40) reported that the clinical benefit of pembrolizumab, an anti-programmed 1 (PD-1) immune checkpoint inhibitor, was predicted by the tumor's mismatch repair status; mismatch repair deficient (dMMR) tumors are more responsive to PD-1 blockade than mismatch repair proficient tumors. Pembrolizumab is FDA-approved for treating adult and pediatric patients with unresectable or metastatic solid tumors that display microsatellite instability- high (MSI-H) by PCR assay or dMMR by immunohistochemistry (IHC). The FDA does not distinguish between PCR and IHC-based assays, as these are considered equivalent and complimentary tests. As clinically indicated, and in the appropriate setting of genetic counseling with informed patient consent, further genetic testing may be helpful. For more information or questions about this result, please call the [facility] at [phone]. LAB [id number] BIOMARKER METHOD Immunohisto computational chemist ry was performed on formalin fixed paraffin-embedded tissue using the following clones: MLH1 (clone M1 mouse monoclonal); MSH2 ([id number] mouse monoclonal); and MSH6 (SP93 rabbit monoclonal); followed by ultrasensitive bright field detection (Optiview with amplification) from [[employer], [place]]. PMS2 (EP51 Rabbit monoclonal, [employer] My Team Zone); followed by ultrasensitive bright field detection ( Rosales Refine Polymer DAB Detection) from [[employer], [place], [place]]. LAB [id number] AP BIOMARKER DISCLAIMER Result Comment: Laboratory D eveloped Test (LDT) Disclaimer: Performance characteristics of immunohistochemical, immunofluorescent and chromogenic in-situ hybridization tests have been determined by the performing laboratory within [facility]???s [facility] Pathology and Laboratory Medicine Department ([facility], [facility], [facility], [facility], [facility], [facility], or [facility]) in a manner consistent with CLIA requirements. One or more of these tests have not been cleared or approved by the FDA. RT-PLM is regulated under CLIA as qualified to perform high-complexity testing. These tests are used for clinical purposes. They should not be regarded as investigational or for research. Positive and negative controls stain appropriately. LAB [facility] FINAL PERFORMING LAB Result Comment: Diagnostic i nterpretation performed at: [facility], [address] [place] [address] CLIA# [id number] Plastic And Reconstructive Surgeon: Kenneth Rajput MD Electronically signed out by: Sophia Amaya MD LAB [id number] AP BLOCK ID [id number] Performed By: #### [id number] # ### [facility] CLIA [id number] [address] [place] [address] [place] ANES PROCEDURE NOTE Observed: 06/14/2024 9:20 AM Status: COMPLETED Source: [facility] HNO ID: [id number] Author: ANNABEL THACKER APRN.GEOGRAPHY TEACHER Service: Nursing Author Type: Nurse Button And Buckle Maker Type: Anesthesia Procedure Notes Filed: 06/14/2024 09:22 Note Text: ANESTHESIOLOGY PROCEDURE NOTE PIV General Information Procedure Start Time/Medication Administration: 06/14/2024 9:02 AM Procedure End Time: 06/14/2024 9:02 AM Patient Location: OR Staffing GEOGRAPHY TEACHER: Annabel Thacker APRN.GEOGRAPHY TEACHER Performed by: EVIN Preparation Sterility Preparation: hand hygiene performed prior to procedure, surgical cap used, mask used, skin prep agent completely dried prior to procedure Site Prep: chlorhexidine Procedure Details Indication: need for IV access Needle Size/Type: 20 gauge angiocath Orientation: Right Location: Hand Imaging Guidance Used: No SIGNATURE: Annabel Thacker APRN.GEOGRAPHY TEACHER PATIENT NAME: Piper Rodríguez DATE: June 14, 2024 TIME: 9:20 AM CSN: [id number] ANES PROCEDURE NOTE Observed: 06/14/2024 9:19 AM Status: COMPLETED Source: [facility] HNO ID: [id number] Author: ANNABEL THACKER APRN.GEOGRAPHY TEACHER Service: Nursing Author Type: Nurse Button And Buckle Maker Type: Anesthesia Procedure Notes Filed: 06/14/2024 09:20 Note Text: ANESTHESIOLOGY PROCEDURE NOTE Airway General Information Procedure Start Time/Medication Administration: 06/14/2024 8:59 AM Procedure End Time: 06/14/2024 8:59 AM Patient location during procedure: OR 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, care count team clerk and patient Staffing Anesthesiologist: Ila Mortensen MD GEOGRAPHY TEACHER: Annabel Thacker APRN.GEOGRAPHY TEACHER Performed by: EVIN Indications and Patient Condition [...] June 14, 2024 TIME: 9:19 AM CSN: [id number] OPERATIVE NO Observed: 06/14/2024 8:48 AM Status: COMPLETED Source: [facility] HNO ID: [id number] Author: DONIS CARIAS MD Service: Colorectal Author Type: Physician Type: Operative Report Filed: 06/21/2024 15:52 Note Text: COLON AND RECTAL SURGERY OPERATIVE REPORT PATIENT NAME: Piper Rodríguez ADMISSION DATE: 06/14/2024 LOG ID: [id number] SURGERY/PROCEDURE DATE: 06/14/2024 INCISION/PROCEDURE START TIME: 9:17 AM INCISION CLOSE/PROCEDURE END TIME: 11:24 AM AGE: [age] year old SEX: male 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 MOBILE PRODUCTS(S): Surgeons and Role: * Donis Carias MD [...] inserted into the bowel to create a [id number] functional end-to-end anastomosis. The bowel was lined [...] TA staple line. The anastomosis was inspected and seen to be healthy, widely patent, and intact. We reduced it back into the abdomen. The fascia was then closed with interrupted figure of 8 with 0' PDS. The wound was irrigated and the skin was closed with 4-0 Monocryl sutures. ESTIMATED BLOOD LOSS: 50cc SPECIMENS: right colon DRAINS: None COMPLICATIONS: None INTRAOPERATIVE FLUIDS: See anesthesia record. SPONGE/INSTRUMENT/NEEDLE COUNTS: Correct x2. PRESENCE STATEMENT: I was present for the entire procedure as I have dictated above. Synoptic Op reporting Colon Resection 1. Is operation performed with curative intent?- Yes 2. Tumor location(s) -- Ascending Colon 3. Extent of colon and vascular resection-- Right Hemicolectomy- ileocolic, right colic (if present). Donis Carias M.D. Department of Surgery Division of Colon and Rectal Surgery ANES PRE-OP Observed: 06/14/2024 8:15 AM Status: COMPLETED Source: [facility] HNO ID: [id number] Author: ILA MORTENSEN MD Service: Critical Care [...] June 14, 2024 TIME: 9:23 AM CSN: [id number] ECG COMPLETE Observed: 06/08/2024 8:53 AM Status: F Source: [facility] Ventricular Rate : 62 BPM Atrial Rate : 62 BPM P-R Interval : 170 ms QRS Duration : 94 ms Q-T Interval : 402 ms QTC Calculation(Bazett) : 408 ms Calculated P Trenton : 50 degrees Calculated R [place] : 18 degrees Calculated T [place] : 44 degrees NORMAL SINUS RHYTHM NORMAL ECG Confirmed by ALEX METCALF MD ([id number]) on 06/09/2024 6:31:40 AM NAME : PIPER RODRÍGUEZ PID : [id number] : 1970 Gender : Male Race : ORD : [id number] Procedure Date : Jun 08 2024 08:53:10 Edit Date : Jun 09 2024 06:31:44 Diagnosis: NORMAL SINUS RHYTHM NORMAL ECG Confirmed by ALEX METCALF MD ([id number]) on 06/09/2024 6:31:40 AM Test Reason : PRE OP Location : 545 : [facility] Overread By : ALEX METCALF MD Edited By : ALEX METCALF MD Referred By : DONIS CARIAS Acquired by : TMM, HISTORY PHYSICAL Observed: 06/08/2024 8:45 AM Status: COMPLETED Source: [facility] HNO ID: [id number] Author: AUBREY BAER PA-C Service: ? Author Type: Physician Director Financial Analysis Type: H&P Filed: 06/08/2024 09:20 Note Text: [...] 5 (+SHERIE, unable to tolerate CPAP ) [id number] Score: Age: <65 Sex: male CHF history: No Hypertension history: Yes Stroke/TIA/thromboembolism history: No Vascular disease history: No Diabetes history: No [id number] Score: 1 ARISCAT Score: Age: 51-80 Preoperative [...] Ramos present: no Lip Bite Test: II Microretrognathia/Micronagthia/Recessed Chin: No DENTAL Dental findings: teeth intact. [...] fevers. 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 [...] 4.5 oz (122.6kg) SpO2 98% BMI 38.78 kg/(m2). General: Alert and oriented Skin: Normal color, no rash, no lesions. HEENT: EOM, pupils equal, round and reactive. Cardiovascular: Normal S1 AND S2, no rubs, murmurs or gallops. No [...] Piper Rodríguez DATE: 06/08/2024 TIME: 9:18 AM CNPN Observed: 06/05/2024 12:00 AM Status: COMPLETED Source: [facility] Telephone ([employer]) PIPER RODRÍGUEZ ([id number]) 1970 M Date Time Provider Department 06/05/24 [...] Encounter Status:Closed by DONIS CARIAS on 06/05/24 CBC W AUTO DIFF BLD Collected: 06/02/2024 9:[address] atus: F Source: [facility] Order Comment: Specimen Type : BLOOD SPECIMEN Ordering Facility: [facility] Address: [address] [place] [address] TYPE CODE TESTS RESULT OUT OF RANGE REFERENCE UNITS LAB 6690-2(LOINC) WBC # Bld Auto 6.27 3.70-11.00 k/uL LAB 789-8(LOINC) RBC # Bld Auto 4.99 4.20-6.00 m/ uL LAB 718-7(LOINC) Hgb Bld-mCnc 15.1 13.0-17.0 g/dL LAB 4544-3(LOINC) Hct VFr Bld Auto 46.1 39.0-51.0 % LAB 787-2(LOINC) MCV RBC Auto 92.4 80.0-100.0 fL LAB 785-6(LOINC) MCH RBC Qn Auto 30.3 26.0-34.0 p g LAB 786-4(LOINC) MCHC RBC Auto-mCnc 32.8 30.5-36.0 g/dL LAB 82743-1(LOINC) RDW RBC-Rto 16.0 High 11.5-15.0 % LAB 777-3(LOINC) Platelet # Bld Auto 182 150-400 k/uL LAB 30111-2(LOINC) PMV Bld Auto 10.1 9.0-12.7 fL LAB 770-8(LOINC) Neutrophils/leuk NFr Bld Auto 64.7 % LAB 751-8(LOINC) Neutrophils # Bld Auto 4.06 1.45-7.50 k/uL LAB 736-9(LOINC) Lymphocytes/leuk NFr Bld Auto 18.8 % LAB 731-0(LOINC) Lymphocytes # Bld Auto 1.18 1.00-4.00 k/uL LAB 5905-5(LOINC) Monocytes/leuk NFr Bld Auto 10.5 % LAB 742-7(LOINC) Monocytes # Bld Auto 0.66 <0.87 k/uL LAB 713-8(LOINC) Eosinophil/leuk NFr Bld Auto 4.5 % LAB 711-2(LOINC) Eosinophil # Bld Auto 0.28 <0.46 k/uL LAB 706-2(INC) Basophils/leuk NFr Bld Auto 1.0 % LAB 704-7(LOINC) Basophils # Bld Auto 0.06 <0.11 k/uL LAB 82609-7(INC) Imm Granulocytes/escobar k NFr Bld Auto 0.5 % LAB 66343-6(INC) Imm Granulocytes # Bld Auto 0.03 <0.10 k/uL LAB 35295-6([facility]) nRBC/100 WBC Bld-Rto 0.0 /100 WBC LAB 771-6([facility]) nRBC # Bld Auto <0.01 <0.01 k/u L LAB 98061-7([facility]) Differential method Bld Auto Performed By: #### 62357-9 # ### [facility] CLIA [id number] [address] [place] [address] [place] COMP METAB 2000 PNL SERPL Collected: 9:53 AM Status: F Source: [facility] Order Comment: Specimen Type : BLOOD SPECIMEN Ordering Facility: [facility] Address: [address] [place] [address] TYPE CODE TESTS RESULT OUT OF RANGE REFERENCE UNITS LAB 2885-2(INC) Prot SerPl-mCnc 7.8 6.3-8.0 g/dL LAB 1751-7(LOINC) Albumin SerPl-mCnc 4.1 3.9-4.9 g/dL LAB 00953-7(LOINC) Calcium SerPl-mCnc 9.1 8.5-10.2 mg/dL LAB 1975-2(LOINC) Bilirub SerPl-mCnc 0.6 0.2-1.3 mg/dL LAB 6768-6(INC) ALP SerPl-cCnc 85 38-113 U/L LAB 1920-8(LOINC) AST SerPl-cCnc 151 High 14-40 U/L LAB 1742-6(LOINC) ALT SerPl-cCnc 175 High 10-54 U/L LAB 2345-7(LOINC) Glucose SerPl-mCnc 97 74-99 mg/dL Result Comment: The [place] Diabetes Association (ADA) provides guidance for cutoff [...] Standards of Medical Care in Diabetes 2016, [place] Diabetes Association. Diabetes Care. 2016.39(Suppl 1). LAB 3094-0(LOINC) BUN SerPl-mCnc 11 9-24 mg/ dL LAB 2160-0(LOINC) Creat SerPl-mCnc 1.08 0.73-1.22 mg/dL LAB 2951-2(LOINC) Sodium SerPl-sCnc 131 Low 136-144 mmol/L LAB 2823-3(LOINC) Potassium SerPl-sCnc 5.2 High 3.7-5.1 mmol/L LAB 2075-0(LOINC) Chloride SerPl-sCnc 94 Low 98-107 mmol/L LAB 2028-9(LOINC) CO2 SerPl-sCnc 24 22-30 mmo l/L LAB 61379-8(LOINC) Anion Gap SerPl-sCnc 13 8-15 mmol/L LAB 51455-4(LOINC) Creatinine + eGFR Pnl SerPlBld 82 >=60 mL/min/1. 73m??? Result Comment: Estimated Gl omerular Filtration Rate (eGFR) is calculated using the 2020 CKD-EPI creatinine equation. This equation utilizes serum creatinine, sex, and age as parameters. The creatinine assay has traceable calibration to isotope dilution-mass spectrometry. Refer to KDIGO guidelines for clinical interpretation. In patients with unstable renal function, e.g. those with acute kidney injury, the eGFR may not accurately reflect actual GFR. Performed By: #### 65493-4 # ### [facility] CLIA [id number] [place] [address] [place] CEA SERPL-MCNC Collected: 9:53 AM Status: F Source: [facility] Order Comment: Specimen Type : BLOOD SPECIMEN Ordering Facility: [facility] Address: [address] [place] [address] TYPE CODE TESTS RESULT OUT OF RANGE REFERENCE UNITS LAB 2038-10(LOINC) CEA SerPl-mCnc 3.5 High <=2.9 ng/mL Result Comment: Carcinoembry onic antigen test is used as an aid in monitoring response to treatment or recurrence in patients with established colorectal, breast, lung, prostatic, pancreatic, and ovarian carcinomas. Clinical correlation is required. The Carcinoembryonic antigen test was performed using the [employer] DXI paramagnetic particle chemiluminescent immunoassay method. Results obtained with different assay methods or kits cannot be used interchangeably. Performed By: #### 2039-6 ## ## [facility] CLIA [id number] [address] [facility] [address] [place] CT CHEST W IVCON Observed: 06/02/2024 9:41 AM Status: F Source: [facility] * * *Final Report* * * DATE [...] pelvis. 4. Fatty infiltration of the liver. Vacuum Bottle Assembler: WILBER Transcribe Date/Time: Jun 04 2024 8:16A Dictated by : OSKAR JOHNSON MD This examination was interpreted and the report reviewed and electronically signed by: OSKAR JOHNSON MD on Jun 04 2024 8:28AM EST [id number] CT ABD/PEL W IVCON Observed: 06/02/2024 9:41 AM Status: F Source: [facility] * * *Final Report* * * DATE [...] pelvis. 4. Fatty infiltration of the liver. Vacuum Bottle Assembler: PSCB Transcribe Date/Time: Jun 04 2024 8:16A Dictated by : OSKAR JOHNSON MD This examination was interpreted and the report reviewed and electronically signed by: OSKAR JOHNSON MD on Jun 04 2024 8:28AM EST [id number] NURSING PROG Observed: 06/02/2024 9:30 AM Status: COMPLETED Source: [facility] HNO ID: [id number] Author: ABILIO TANG RN Service: PICC Team [...] DATE: June 02, 2024 TIME: 8:53 AM PROGRESS Observed: 06/02/2024 9:30 AM Status: COMPLETED Source: [facility] HNO ID: [id number] Author: EVENS NELSON RT(R) Service: Radiology Author [...] PATIENT PRESENTS WITH AN IMPLANTABLE OR ATTACHED TECHNICAL CABLE JOINTER: No RADIOLOGY DEPARTMENT: CT; Exam(s) Completed: Chest Abdomen Pelvis PERIPHERAL IV DATA: Site assessment: Clean,Dry and Intact, Site disposition Discontinued SIGNED BY: RT Rhys(Kervin) June 02, 2024 9:36 AM CNPN Observed: 06/01/2024 12:00 AM Status: COMPLETED Source: [facility] Telephone ([facility]) ANNEPIPER ([id number]) 1970 M Date Time Provider Department 06/01/24 DONIS CARIAS [facility] During your visit today, we recorded the following information about you: Be Cloud 06/01/2024 10:07 AM Signed 06/01 Patient called, stated that he wanted to cancel CT that was for 06/02 due to distance to appointment. Stated that will go to [facility] to gert CT done. Was wondering if able to go to [place] for CT? Jocelyn Cantrell RN 06/01/2024 11:03 AM Signed Spoke with patient. He was under the impression he could get his CT done in [place] and could have the images sent to Dr. Carias. We had a long discussion about the process to make that happen and my concerns that it would not be done in time to continue with his surgery on 06/14. He was agreeable to reschedule his CT at [place] on 06/02/24. He will get his lab work done tomorrow prior to his CT. Allergies As of Date: 06/01/2024 (No Known Allergies) Date Reviewed: 05/25/2024 Reviewed by: Jessica Bass OCCA - Fully Assessed Reason for Visit: Patient Question [7137] Prescriptions as of 06/01/2024 - metroNIDAZOLE (FLAGYL) [...] 06/01/2024 (None) Encounter Status:Closed by JOCELYN CANTRELL Gage on 06/01/24 PROGRESS Observed: 05/25/2024 11:20 AM Status: COMPLETED Source: [facility] HNO ID: [id number] Author: DONIS CARIAS MD Service: ? Author Type: Physician Type: Progress Notes Filed: 05/25/2024 12:48 Note Text: COLORECTAL SURGERY CLINIC NOTE May 25, 2024 Piper Rodríguez 54 year old This consult was requested by Dr. Hedrick and my final recommendations will be communicated to the requesting health care provider by way of the shared medical record for internal providers or letter via the [employer] for external providers. Chief Complaint: [...] mass Colonoscopy 05/10/24 - Dr. Hedrick @ [facility] on 05/16/2024 9:34 AM by Norma Magallanes: Seth Castro operative note (path pending) [id number] Pathology Scan on 05/22/2024 8:26 AM by Be Cloud: [facility] Report 05/11/24 COLON, Biopsy, Cecum: COLONIC TISSUE WITH INVASIVE ADENOCARCINOMA, MODERATELY DIFFERENTIATED, ULCERATION NOTED 2. COLON, Biopsy, Sigmoid: LARGE TUBULAR ADENOMA (>1 CM), NEGATIVE FOR HIGH GRADE DYSPLASIA, AREAS SHOWING CAUTERY ARTIFACT ARE POSITIVE FOR ADENOMATOUS GLANDS 3. COLON, Biopsy, Descending: TUBULAR ADENOMA. NEGATIVE FOR HIGH GRADE DYSPLASIA Colonoscopy 06/03/2018 - Dr Hedrick @ [facility] on 05/15/2024 9:54 AM by Be Cluod: Seth Matthew- Operative Report 06/03/18 Assessment Assessment and Plan: [...] PAT Medical Decision Making: Data Reviewed: Tests AND Documents Reviewed/ordered: Review of prior notes from Dr. Fulton Review of Pathology Review of Labs: CBC, BMP Review of Procedures / Tests: Colonoscopy I have independently interpreted: n/a I have discussed Piper Rodríguez's treatment plan and/or results with patient and his , lisa. Risk of morbidity, mortality and/or complications of treatment plan: yasmeen Carias MD Colorectal Surgery CNOV Observed: 05/25/2024 11:20 AM Status: COMPLETED Source: [facility] Office Visit ([facility]) ZOLTANPIPER METCALF ([id number]) 1970 M Date Time Provider Department 05/25/24 11:20 AM DONIS CARIAS [facility] During your visit today, we recorded the [...] for internal providers or letter via the [employer] Service for external providers. Chief Complaint: [...] mass Colonoscopy 05/10/24 - Dr. Hedrick @ [facility] on 05/16/2024 9:34 AM by Norma Magallanes: Seth Castro operative note (path pending) [id number] Pathology Scan on 05/22/2024 8:26 AM by Be Cloud: [facility] Pathology Report 05/11/24 COLON, Biopsy, Cecum: COLONIC TISSUE WITH INVASIVE ADENOCARCINOMA, MODERATELY DIFFERENTIATED, ULCERATION NOTED 2. COLON, Biopsy, Sigmoid: LARGE TUBULAR ADENOMA (>1 CM), NEGATIVE FOR HIGH GRADE DYSPLASIA, AREAS SHOWING CAUTERY ARTIFACT ARE POSITIVE FOR ADENOMATOUS GLANDS 3. COLON, Biopsy, Descending: TUBULAR ADENOMA. NEGATIVE FOR HIGH GRADE DYSPLASIA Colonoscopy 06/03/2018 - Dr Hedrick @ [facility] on 05/15/2024 9:54 AM by Be [...] PAT Medical Decision Making: Data Reviewed: Tests AND Documents Reviewed/ordered: Review of prior notes from Dr. Fulton Review of Pathology Review of Labs: CBC, BMP Review of Procedures / Tests: Colonoscopy I have independently interpreted: n/a I have discussed Piper Rodríguez's treatment plan and/or results with patient and his , lisa. Risk of morbidity, mortality and/or complications of treatment plan: moderate Donis Carias MD Colorectal Surgery Referring Provider: JONE HEDRICK [[id number]] Allergies As of Date: 05/25/2024 (No Known Allergies) Date Reviewed: 05/25/2024 Reviewed by: Jessica Bass OCCA - Fully Assessed Reason for Visit: Colon Cancer [529] Primary Visit Diagnosis:Malignant neoplasm of ascending colon (HCC) [C18.2] Order(s):COMPLETE BLOOD COUNT AND DIFFERENTIAL [SQCBCDIF] Order #: [id number] FUTURE COMPREHENSIVE METABOLIC PANEL [SQCMP] Order #: [id number] FUTURE CARCINOEMBRYONIC ANTIGEN [SQCEA] Order #: [id number] FUTURE CT ABD/PEL W IVCON [[id number]] Order #: [id number] FUTURE CT CHEST W IVCON [[id number]] Order #: [id number] FUTURE iv contrast (will be provided with radiology test)CT Chest ABD/PEL-Inject, intravenously, once for 1 dose.No [...] protocol in the CT contrast administration guidelines link.Disp: 1 EachRfl: 0 enteric contrast (will be provided with radiology test)For CT CHESTABD/PEL W IVCON Routine order Administer, As Directed One Time Only, via Oral, Rectal, both Oral and Rectal, Enteric Tube, Stoma or Indwelling Catheter, Enteric Contrast as designated per enteric contrast guidelinesDisp: 1 EachRfl: 0 Prescriptions as of 06/19/2024 - acetaminophen (TYLENOL) [...] contrast guidelines Problem List As Of Date: 05/25/2024 (None) Prescriptions ordered this encounter Disp Refills Start End METRONIDAZOLE 500 MG TABLET 3 ta* 0 05/25/2024 06/16/2024 Route: ORAL Sig: Take 1 tablet by mouth as directed. Take one tab at 6:00 p.m., another at 7:00 p.m. and the last one at 11:00 p.m., prior to surgery NEOMYCIN 500 MG TABLET 6 ta* 0 05/25/2024 06/16/2024 Route: ORAL Sig: Take 2 tablets by mouth as directed. Take two tabs at 6:00 p.m., 7:00 p.m. and 11:00 p.m., prior to surgery IV CONTRAST (RADIOLOGY PROCEDURE) - * 1 Ea* 0 05/25/2024 Class: In Office Sig: CT Chest ABD/PEL-Inject, intravenously, once for 1 [...] in the CT contrast administration guidelines link. ENTERIC CONTRAST (RADIOLOGY PROCEDUR* 1 Ea* 0 05/25/2024 Class: In Office Sig: For CT CHESTABD/PEL W IVCON Routine order Administer, As Directed One Time Only, via Oral, Rectal, both Oral and Rectal, Enteric Tube, Stoma or Indwelling Catheter, Enteric Contrast as designated per enteric contrast guidelines Letter Text Encounter Status:Closed by DONIS CARIAS on 05/25/24 PATHOLOGY REQUEST FOR LAB PATRICK Collected: 05/10/2024 10:35 AM Status: F Source: [facility] Order Comment: PATHOLOGY GI SPECIMEN TYPE CODE TESTS RESULT OUT OF RANGE REFERENCE UNITS LAB PATH TO [facility] Pathology Request for Lab Patrick Result Comment: See report. Scanned copy available in EMR. PERFORMED BY: [place] [address] PATHOLOGIST SIZE PAINTER GUNNAR WILSON M.D. Performed By: #### PATH TO [facility] #### [address] GENERAL SURGERY OFFICE/CLINI C NOTE Observed: 04/25/2024 10:58 AM Status: F Source: [facility] General Surgery Office/Clini c Note Chief Complaint consultation for anemia HPI [...] Tobacco Use:. Oral, 14 per day. Yes, 04/25/2024 Family History Cancer: Father. Primary malignant neoplasm of rectum: Mother. Immunizations Vaccine Date Status Comments SARS-CoV-2 (COVID-19) mRNA-1273 vaccine 09/19/2020 Recorded 2024-04-17: TPV40 SARS-CoV-2 (COVID-19) mRNA-1273 vaccine 08/22/2020 Recorded 2024-04-17: TPV40 Result Comment: Electronical ly Signed By: FLORIDALMA PATEL, Jone Galeana\.br\Date and Time Signed: 04/25/24 10:59 EST AMBULATORY VISIT SUMMARY Observed: 04/25 10:51 AM Status: F Source: [facility] Ambulatory Visit Summary PIPER RODRÍGUEZ :1970 Visit Date:04/25/2024 Ambulatory Visit Instructions Your Diagnosis Epigastric pain Positive occult stool blood test Iron deficiency anemia Your Care Team Attending Physician - FLORIDALMA PATEL, Jone Galeana Primary Care Physician - Santa PATEL, Gen Referring Physician - DR. KISHA [...] you for choosing us for your care. ALLERGIES DATE TYPE / CODE NAME / CODE REACTION SEVERITY SOURCE 01/30/2025 Drug Allergy/7222302 02(SNOMED CT) No Known Allergies/[id number]( RXNORM) Unknown [facility] SYSTEMIC/098961 006(SNOMED CT) NO KNOWN ALLERGIES [facility] Drug Class/887193617 (SNOMED CT) NO KNOWN ALLERGIES [facility] /108915209(SN OMED CT) No Known Allergies [facility] /953645295(SN OMED CT) No Known Medication Allergies [facility] ENCOUNTERS ADMIT/DISCHARGE ACCOUNT NUMBER ADMITTING ENCOUNTER CLASS LOCATION SOURCE 02/20/2025/02/21/20 [id number] [facility]/02/[facility]/02/03/20 [id number] [facility] 01/11/2025/01/12/20 [id number] Ambulatory [facility] HospitalBuil ding:FVCO [facility] 12/27/2024/12/28/19 [id number] [facility] [place] [facility] : Procedure [facility] 10/24/2024/10/25/19 [id number] Ambulatory [facility] HospitalBuil ding:CONOH C [facility] 09/27/2024/09/28/19 [id number] Ambulatory Building:[facility] 07/18/2024/07/18/19 [id number] [facility] [place] [place] : Procedure [facility] 07/07/2024/07/07/19 [id number] [facility] 07/05/2024/07/05/19 [id number] Ambulatory CD:[id number] 7Building:CD :[id number] [facility] 06/28/2024/06/28/19 [id number] Ambulatory [place] [place] : Procedure [facility] 06/28/2024/06/28/19 25 [id number] Ambulatory [facility] HospitalBuil ding:HESA [facility] 06/21/2024/06/21/19 25 [id number] [facility] 06/21/2024/06/23/19 25 [id number] DONIS CARIAS Inpatient Encounter [facility] ding:[id number] m: [id number]: 15 [facility] 06/14/2024/06/16/19 25 [id number] DONIS CARIAS Inpatient Encounter [facility] ding:[id number] m: ZP5BPun: 31 [facility] 06/08/2024/06/08/19 25 [id number] [facility] 06/02/2024/06/02/19 25 [id number] Ambulatory [facility] ding:LVLAB [facility] 06/02/2024 [id number] Ambulatory [facility] ding:[facility] 06/02/2024 [id number] [facility] 05/25/2024/05/25/19 25 [id number] [facility] 05/10/2024/05/10/20 24 [id number] [facility] 05/10/2024/05/10/20 24 [id number] Ambulatory CD:[id number] 7Building:CD :[id number] [facility] 04/25/2024/04/25/20 24 [id number] Ambulatory [place]: [place] : Procedure [facility] PAYERS ENCOUNTER GUARANTOR PAYER SUBSCRIBER SOURCE 02/20/2025 [address] [place] [address]Adp: () Primary Insurance:Self PayPolicy Number: Effective Date:2025-02-20 [facility] [id number] [place] [address]Vpr: (HP) Primary Insurance:Self PayPolicy Number: Effective Date:2025-02-02 [facility] 01/11/2025 Primary Insurance:MMO SUPERMED PPOPolicy Number: [id number] Date:3012-89-22Cwsp Name:Jose HANSON: [id number] [place] [address] [facility] 12/27/2024 PIPER BOSEB: [place] RDTel: ~~(41 (HP) Primary Insurance:MEDICAL MUTUALPolicy Number: [id number] Date:1647-41-21CI [facility] [id number] [place], [place] [address]WP: LISA [facility] 10/24/2024 Primary Insurance:MMO SUPERMED PPOPolicy Number: [id number] Date:8678-02-57Ykjf Name:Jose HANSON: [id number] [place] [address] [facility] 09/27/2024 Primary Insurance:MEDICAL MUTUALPolicy Number: [id number] Date:2023-11-22 LISA RODRÍGUEZISABELA: [id number] [place] [address] [facility] 07/18/2024 PIPER HANSON: [place] RDTel: ~~(41 (HP) Primary Insurance:MEDICAL MUTUALPolicy Number: [id number] Date:4560-40-95QZ [address] [place] [address]CU: LISA [facility] 07/07/2024 Primary Insurance:MMO SUPERMED PPOPolicy Number: [id number] Date:4777-86-39Baxy Name:Jose RODRÍGUEZISABELA: [id number] [place] [address] [facility] 07/05/2024 PIPER HANSON: [place] RDTel: ~~(41 (HP) Primary Insurance:MEDICAL MUTUALPolicy Number: [id number] Date:4786-58-33[address], [place] [address]VY: LISA [facility] 06/28/2024 PIPER HANSON: [place] RDTel: ~~(41 (HP) Primary Insurance:MEDICAL MUTUALPolicy Number: [id number] Date:9749-22-01LU [id number] [place], [place] [address]WP: [facility] 06/28/2024 Primary Insurance:MMO SUPERMED PPOPolicy Number: [id number] Date:8065-07-32Krqi Name:Jose RODRÍGUEZISABELA: [id number] [place] [address] [facility] 06/21/2024 PIPER HANSON: [place] RDTel: ~~(41 (HP) Primary Insurance:MEDICAL MUTUALPolicy Number: [id number] Date:3314-14-43TF [address] [address], [place] [address]KO: [facility] 06/21/2024 Primary Insurance:MMO SUPERMED PPOPolicy Number: [id number] Date:2489-61-18Lptw Name:Jose RODRÍGUEZISABELA: [id number] [place] [address] [facility] 06/14/2024 Primary Insurance:MMO SUPERMED PPOPolicy Number: [id number] Date:8437-89-76Locd Name:Jose BOSEB: [id number] [place] [address] [facility] 06/08/2024 Primary Insurance:MMO SUPERMED PPOPolicy Number: [id number] Date:9313-95-88Rzgu Name:Jose BOSEB: [id number] [place] [address] [facility] 06/02/2024 Primary Insurance:MMO SUPERMED PPOPolicy Number: [id number] Date:6841-67-40Kxsg Name:Jose BOSEB: [id number] [place] [address] [facility] 06/02/2024 Primary Insurance:MMO SUPERMED PPOPolicy Number: [id number] Date:2185-35-74Qtrw Name:Jose BOSEB: [id number] [place] [address] [facility] 06/02/2024 Primary Insurance:MMO SUPERMED PPOPolicy Number: [id number] Date:0707-65-85Qshz Name:Jose BOSEB: [id number] [place] [address] [facility] 05/25/2024 Primary Insurance:MMO SUPERMED PPOPolicy Number: [id number] Date:3663-35-61Fbpc Name:Jose BOSEJose: [id number] [place] [address] [facility] 05/10/2024 [address] [place] [address]Ysp: (HP) Primary Insurance:Self PayPolicy Number: Effective Date:2024-05-10 [facility] PIPER HANSON: [place] RDTel: ~~(41 (HP) Primary Insurance:MEDICAL MUTUALPolicy Number: [id number] Date:7798-43-76L[address], [place] [address]UD: [facility] 04/25/2024 PIPER RODRÍGUEZDOB: [id number] [place] RDTel: ~~(41 (HP) Primary Insurance:MEDICAL MUTUALPolicy Number: [id number] Date:5794-61-51[address] [address]ZXBXEU[place]JJ, [place] [address]OY: [facility]
--- OUTSIDE RECORDS SUMMARY | 2025-02-20 09:00 | XMS_ITS ---
Author Name Auto Generated Organization OHIP Care Team Providers Care Senior Recruitment Consultant Name Role Phone OJE JONES Attending Unavailable BENOITRO, AJARATU Admitting Unavailable AUSTIN, KATYARATU Attending Unavailable HOY, GEN M Primary Care Unavailable KESHINRO, AJARATU Referring Unavailable HOY, GEN M Primary Care Unavailable KESHINRO, AJARATU Referring Unavailable HOY, GEN M Primary Care Unavailable KESHINRO, AJARATU Referring Unavailable HOY, GEN M Primary Care Unavailable HOY, GEN M Primary Care Unavailable KESHINRO, AJARATU Admitting Unavailable BENOITRO, AJARATU Attending Unavailable Nill, Jone R Admitting Unavailable Nill Jone R Attending Unavailable Devan Franklin Attending Unavailable Devan Franklin Admitting Unavailable Kisha Esteves Attending Unavailable Kisha Esteves Admitting Unavailable JOSEPH BRAGG Attending Unavailable RAVIINRO, AJARATU Referring Unavailable HOY, GEN M Primary Care Unavailable KESHINRO, AJARATU Referring Unavailable HOY, GEN M Primary Care Unavailable NILL, JONE R Referring Unavailable MUSTAPHASHINRO, AJARATU Attending Unavailable GEN PEÑA M Primary Care Unavailable GEN PEÑA M Primary Care Unavailable DONIS CARIAS Attending Unavailable DONIS CARIAS Attending Unavailable ANDERSONGEN Harper M Primary Care Unavailable MAYLIN CONTE Referring Unavailable MAYLIN CONTE Attending Unavailable ANDERSONGEN Harper M Primary Care Unavailable NILL, Jone R Attending Unavailable NILL, Jone R Attending Unavailable KAY, KISHA Referring Unavailable NILL, Jone R Attending Unavailable KAY, KISHA Referring Unavailable NILL, Jone R Attending Unavailable NILL, Jone R Attending Unavailable NILL, Jone Galeana Attending Unavailable NILL, Jone Galeana Attending Unavailable PROBLEMS DATE TYPE CONDITION / CODE ATTENDING STATUS [facility] 01/11/2025 Active Incisional herni a, 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) [facility] Active [facility] 10/24/2024 Active Follow Up / UNK(Unknown) [facility] Active [facility] 06/23/2024 Active Wound dehiscence / T81.30XA(ICD-10) [facility] 06/21/2024 Active Status post part ial colectomy / Z90.49(ICD-10) [facility] 06/21/2024 Active History of colon cancer / Z85.038(ICD-10) [facility] 06/14/2024 Active Malignant neopla sm of ascending colon (HCC) / C18.2(ICD-10) [facility] 06/14/2024 Active Post-op pain / G89.18(ICD-10) [facility] PROCEDURES No Procedure Records Found RESULTS URINE CULTURE Observed: 02/02/2025 9:58 PM Status: F Source: [facility] No Growth 2 Days PERFORMED BY: [facility] [address] [place] [address] PATHOLOGIST FOOD SERVICE SALES REPRESENTATIVES YEYO DAVIS M.D. Performed By: #### CUU #### [facility] [address] [place] [address] [facility] PROGRESS Observed: 01/11/2025 1:00 PM Status: COMPLETED Source: [facility] HNO ID: [id number] Author: DONIS CARIAS MD Service: ? Author Type: Physician Type: Progress Notes Filed: 01/11/2025 13:34 Note Text: COLORECTAL SURGERY CLINIC NOTE January 11, 2025 Piper Rodríguez 54 year old Recording using ambient CaseRails software for draft documentation of the visit was discussed with the patient/authorized claims representative; all questions welcomed and answered. Patient/authorized claims representative agreed to proceed Chief Complaint: abdominal [...] recti Colonoscopy 06/03/2018 - Dr Hedrick @ [facility] Scan on 05/15/2024 9:54 AM by Be Cloud: Seth Castro- Operative Report 06/03/18 Colonoscopy 05/10/24 - Dr. Hedrick @ [facility] Scan on 05/16/2024 9:34 AM by Norma Magallanes: Seth Castro operative note (path pending) [id number] Pathology Scan on 05/22/2024 8:26 AM by Be Cloud: [facility] Pathology Report 05/11/24 COLON, Biopsy, Cecum: COLONIC [...] 2.5 View External Labs - Chemistry [ID [id number]] Surveillance CT C A P on 09/26/2024 at [facility] -images uploaded into [facility] -no evidence of recurrence in chest, abdomen, pelvis Scan on 10/06/2024 10:52 AM by Dat Brown: [facility] - CT Scan, 09/26/24 Assessment Assessment [...] Observed: 01/11/2025 1:00 PM Status: COMPLETED Source: [facility] Office Visit ([facility]) PIPER RODRÍGUEZ ([id number]) 1970 M Date Time Provider Department 01/11/25 1:00 PM DONIS CARIAS [facility] During your visit today, we recorded the following information about you: Pulse Blood pressure Weight Height 69/minute 130/80 114.3 kg 1.778 m Donis Carias MD 01/11/2025 1:34 PM Signed COLORECTAL SURGERY CLINIC NOTE January 11, 2025 Piper Rodríguez 54 year old Recording using PostedIn software for draft documentation of the visit was discussed with the patient/authorized claims representative; all questions welcomed and answered. Patient/authorized claims representative agreed to proceed Chief Complaint: abdominal [...] recti Colonoscopy 06/03/2018 - Dr Hedrick @ [facility] Scan on 05/15/2024 9:54 AM by Be Cloud: Seth Castro- Operative Report 06/03/18 Colonoscopy 05/10/24 - Dr. Hedrick @ [facility] Scan on 05/16/2024 9:34 AM by Norma Magallanes: Seth Castro operative note (path pending) [id number] Pathology Scan on 05/22/2024 8:26 AM by Be Cloud: [facility] Pathology Report 05/11/24 COLON, Biopsy, Cecum: COLONIC [...] 2.5 View External Labs - Chemistry [ID [id number]] Surveillance CT C A P on 09/26/2024 at [facility] -images uploaded into [facility] -no evidence of recurrence in chest, abdomen, pelvis Scan on 10/06/2024 10:52 AM by Dat Brown: [facility] - CT Scan, 09/26/24 Assessment Assessment [...] Assessed Reason for Visit: Established Patient Follow-Up [[id number]] Cmt: s/p laparoscopic right colectomy on 06/14/2024 [...] for Encounter Date Provider Department Center 01/11/2025 [id number], AJARATU [facility] Encounter Status:Closed by DONIS CARIAS on 01/11/25 GENERAL SURGERY OFFICE/CLINIC NOTE Obser nancy: 12/27/2024 2:09 PM Status: F Source: [facility] General Surgery Office/Clini c Note Chief Complaint consultation for port removal HPI Staff Presents to discuss removal of Fdrzba-r-htwo. Port placed 06/2024 for chemotherapy due to [...] Bell\Date and Time Signed: 12/27/24 14:47 EDT AMBULATORY VISIT SUMMARY Observed: 12/27 2:09 PM Status: F Source: [facility] Ambulatory Visit Summary PIPER RODRÍGUEZ :1970 Visit [...] signed up for this yet, please contact Relive at [phone] to get signed up today. Language Information Language assistance services are available as needed. SHAQUILLE Observed: 10/24/2024 10:00 AM Status: COMPLETED Source: [facility] Office Visit ([facility]) PIPER RODRÍGUEZ ([id number]) 1970 M Date Time Provider Department 10/24/24 10:00 AM DONIS CARIAS [facility] During your visit today, we recorded the following information about you: Pulse Blood pressure Weight 71/minute 160/91 114.7 kg Donis Carias MD 10/24/2024 10:19 AM Signed [facility]ECTAL SURGERY CLINIC NOTE Recording using PostedIn software for draft documentation of the visit was discussed with the patient/authorized claims representative; all questions welcomed and answered. 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 He underwent evaluation by a hand flatwork finisher, including an echocardiogram, which was reportedly normal. [...] defect Colonoscopy 06/03/2018 - Dr Hedrick @ [facility] Scan on 05/15/2024 9:54 AM by Be Cloud: Seth Castro- Operative Report 06/03/18 Colonoscopy 05/10/24 - Dr. Hedrick @ [facility] Scan on 05/16/2024 9:34 AM by Norma Magallanes: [facility] operative note (path pending) [id number] Pathology Scan on 05/22/2024 8:26 AM by Be Cloud: [facility] Pathology Report 05/11/24 COLON, Biopsy, Cecum: COLONIC [...] 2.5 View External Labs - Chemistry [ID [id number]] Surveillance CT C A P on 09/26/2024 at [facility] -images uploaded into [facility] -no evidence of recurrence in chest, abdomen, pelvis Scan on 10/06/2024 10:52 AM by Dat Brown: [facility] - CT Scan, 09/26/24 Assessment Assessment [...] 2025. Patient to schedule with GI at [facility]. RTC prn Medical Decision Making: Data Reviewed: [...] for Encounter Date Provider Department Center 10/24/2024 [id number], AJARATU [facility] Maurilio Alcantara Encounter Status:Closed by DONIS CARIAS on 10/24/24 PROGRESS Observed: 10/24/2024 10:00 AM Status: COMPLETED Source: [facility] HNO ID: [id number] Author: DONIS CARIAS MD Service: ? Author Type: Physician Type: Progress Notes Filed: 10/24/2024 10:19 Note Text: COLORECTAL SURGERY CLINIC NOTE Recording using PostedIn software for draft documentation of the visit was discussed with the patient/authorized claims representative; all questions welcomed and answered. 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 He underwent evaluation by a hand flatwork finisher, including an echocardiogram, which was reportedly normal. [...] defect Colonoscopy 06/03/2018 - Dr Hedrick @ [facility] Scan on 05/15/2024 9:54 AM by Be Cloud: Seth Castro- Operative Report 06/03/18 Colonoscopy 05/10/24 - Dr. Hedrick @ [facility] Scan on 05/16/2024 9:34 AM by Norma Magallanes: [facility] operative note (path pending) [id number] Pathology Scan on 05/22/2024 8:26 AM by Be Cloud: [facility] Pathology Report 05/11/24 COLON, Biopsy, Cecum: COLONIC [...] 2.5 View External Labs - Chemistry [ID [id number]] Surveillance CT C A P on 09/26/2024 at [facility] -images uploaded into [facility] -no evidence of recurrence in chest, abdomen, pelvis Scan on 10/06/2024 10:52 AM by Dat Brown: [facility] - CT Scan, 09/26/24 Assessment Assessment [...] 2025. Patient to schedule with GI at [facility]. RTC prn Medical Decision Making: Data [...] plan: moderate Donis Carias MD Colorectal Surgery PROGRESS Observed: 10/09/2024 12:40 PM Status: COMPLETED Source: [facility] HNO ID: [id number] Author: TORI GANDHI RN Service: ? Author Type: Registered Nurse Type: Progress Notes Filed: 10/09/2024 12:43 Note Text: Summary: [facility] Research Pre-Screening ([id number]) Piper Rodríguez was reviewed for potential clinical trial enrollment on [facility] #[id number] by the [facility]: [facility] on 10/09/24. Per initial review, patient has disease type Colon cancer, stage IIIB and appears to be not eligible based on > 60 days from surgery and patient has already started treatment. Requesting alliance party notified. No Study tasks were completed as a result of this initial review. Tori Gandhi, MSN, RN Research Nurse Coordinator OFFICE VISIT Observed: 09/27/2024 11:00 AM Status: COMPLETED Source: [facility] [id number] Piper Rodríguez [birth year] M Date Provider Department Center 09/27/2024 [id number]-CAQKJOE JONES [facility] Curt Rust No family history on file Level of Service:[id number] [place] OFFICE/OUTPATIENT ESTABLISHED MOD MDM 30 MIN PROGRESS Observed: 09/27/2024 11:00 AM Status: COMPLETED Source: [facility] Cardiac Electrophysiology Co nsultation Reason for Consult: Consideration of cardiac monitoring in the setting of chemotherapy/oxaliplatin Referring Vp & General Counsel/PCP: No ref. provider found HPI: Piper is [...] ScM, Msc Cardiac Electrophysiology Email: [email or web address] Observed: 09/27/2024 11:00 AM Status: COMPLETED Source: [facility] Addended by: JOE JONES on: 09/27/2024 04:14 PM Modules accepted: Orders ORDERS ONLY Observed: 09/27/2024 12:00 AM Status: COMPLETED Source: [facility] [id number] Piper Rodríguez [birth year] M Date Provider Department Center 09/27/2024 [id number] [place] L[facility] [address] No family history on file ABSTRACT Observed: 09/26/2024 12:00 AM Status: COMPLETED Source: [facility] [id number] Piper Rodríguez [birth year] M Date Provider Department Center 09/26/2024 3244-RAN GONSALEZ [facility] [address] No family history on file GENERAL SURGERY OFFICE/CLINIC NOTE Obser nancy: 07/18/2024 2:25 PM Status: F Source: [facility] General Surgery Office/Clini c Note Chief Complaint post operative foloow up HPI Staff 13 day post operative follow up post insertion of Yxxtpg-x-ptpr. Denies discomfort, no use of pain medication. [...] Bell\Date and Time Signed: 07/18/24 14:26 EST AMBULATORY VISIT SUMMARY Observed: 07/18 2:23 PM Status: F Source: [facility] Ambulatory Visit Summary PIPER RODRÍGUEZ :1970 Visit [...] Observed: 07/07/2024 9:04 AM Status: COMPLETED Source: [facility] HNO ID: [id number] Author: MAYLIN CONTE APRN.BOOKY Service: ? Author Type: Nurse Practitioner Type: Progress Notes Filed: 07/07/2024 09:33 Note Text: COLORECTAL SURGERY July 07, 2024 Piper Rodríguez 54 year old This consult was requested by Dr. Carias and my final recommendations will be communicated to the requesting health care provider by way of the shared medical record for internal providers or letter via the [employer] Service for external providers. Chief Complaint: [...] morbidity, mortality and/or complications of treatment plan: low 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 APRN.CNP Colorectal Surgery CNOV Observed: 07/07/2024 9:00 AM Status: COMPLETED Source: [facility] Office Visit (LCD[facility]) PIPER RODRÍGUEZ ([id number]) 1970 M Date Time Provider Department 07/07/24 9:00 AM MAYLIN CONTE [id number] During your visit today, we recorded the following information about you: Temperature Pulse Blood pressure Weight 97.9 degrees 88/minute 134/77 113.4 kg Height 1.778 m [place]onseyJamesa ID 07/07/2024 9:33 AM Signed What is the [...] for internal providers or letter via the [employer] Postal Service for external providers. Chief Complaint: [...] and/or complications of treatment plan: johann Conte APRN.[facility] Colorectal Surgery Referring Provider: MAYLIN CONTE [[id number]] Allergies As of Date: 07/07/2024 (No Known [...] Observed: 07/07/2024 8:49 AM Status: COMPLETED Source: [facility] HNO ID: [id number] Author: VARINDER PHILLIPS MA Service: ? Author Type: Hot Air Furnace Installer Repairer Type: Progress Notes Filed: 07/07/2024 09:33 Note [...] Observed: 06/30/2024 12:00 AM Status: COMPLETED Source: [facility] Telephone (Md7) PIPER RODRÍGUEZ ([id number]) 1970 M Date Time Provider Department 06/30/24 CHELLE WILLIS During your visit today, we recorded the following information about you: Chelle Willis, RN 06/30/2024 11:10 AM Signed Voicemail received from pt's stating pt will be going to [place] to see their oncologist, and doesn't wish [...] Observed: 06/29/2024 8:14 AM Status: [facility]TED [id number] Author: CAMRYN BEAULIEU, Research Coordinator Service: ? Author Type: Research Type: Progress Notes Filed: 06/29/2024 08:26 Note Text: Summary: [facility] Research Pre-Screening (IRB: [id number]) Piper Rodríguez was reviewed for potential clinical trial enrollment on [facility] #[id number] by the Region: [facility] on 06/29/24. Per initial review, patient has disease type Stage III CRC and appears to be preliminarily eligible and further testing/procedures required to determine final eligibility. Requesting alliance party notified. No Study tasks were completed as a result of this initial review. Camryn Beaulieu, Research Coordinator PROGRESS Observed: 06/29/2024 7:50 AM Status: COMPLETED Source: [facility] HNO ID: [id number] Author: MAYLIN CONTE APRN.BOOKY Service: ? Author Type: Nurse Practitioner Type: Progress Notes Filed: 06/29/2024 08:29 Note Text: [facility] Multidisciplinary GI Tumor Board Primary Disease: ascending [...] negative for invasive carcinoma Clinical Pathologic Stage: M1U3iKi stage IIIB Recommendations: MMR studies pending. Referral [...] Observed: 06/29/2024 12:00 AM Status: COMPLETED Source: [facility] Telephone ([facility]AS[place]) PIPER RODRÍGUEZ ([id number]) 1970 M Date Time Provider Department 06/29/24 CHELLE WILLIS HEMMARIANGEL During your visit today, we recorded the [...] nausea/vomiting.Disp: 90 tabletRfl: 2 CONSULT TO SURVIVORSHIP [037863] Order #: [id number]: 1 FUTURE CONSULT TO ONCOLOGY NUTRITION [[id number]] Order #: [id number]: 1 FUTURE Prescriptions as of 07/05/2024 - [...] nancy: 06/28/2024 4:11 PM Status: F Source: [facility] General Surgery Office/Clini c Note Chief Complaint [...] closure 06/21/24; now seeing Dr. Bragg at [facility]; referred for port placement; no previous [...] (C18.9: Malignant neoplasm of colon, unspecified) plan lbfdrf-l-kgrl insertion under anesthesia, informed consent obtained. Ancef [...] FLORIDALMA PATEL, Jone Galeana\.br\Date and Time Signed: 06/28/24 16:11 EST AMBULATORY VISIT SUMMARY Observed: 06/28 3:40 PM Status: F Source: [facility] Ambulatory Visit Summary PIPER RODRÍGUEZ :1970 Visit Date:06/28/2024 Ambulatory Visit Instructions Your Care Team Attending Physician - Jone HEDRICK MD Primary Care Physician - Gen Peña MD [...] Observed: 06/28/2024 11:00 AM Status: COMPLETED Source: [facility] Visit (SP) Office ([place]) PIPER RODRÍGUEZ ([id number]) 1970 M Date Time Provider Department 06/28/24 11:00 AM JOSEPH BRAGG HEMASA During your visit today, we recorded the following information about you: Temperature Pulse Respiration Blood pressure 97.3 degrees 74/minute 18/minute 118/79 Weight Height 115.3 kg 1.778 m Joseph Bragg MD 06/28/2024 11:29 AM Signed PATIENT NAME: Piper Rodríguez CLINIC NO.: [id number] ATTENDING PHYSICIAN: Joseph Bragg MD DATE OF SERVICE: June 28, [address] Donis Carias [address] [facility] [address] thank you for referring Piper Rodríguez for [...] pT3 pN1b. MSI Pending Works in a [employer]. Grand mother has colon cancer. No smoking. [...] Range Status 06/23/2024 12.7 % Final Abs [place] Date Value Ref Range Status 06/23/2024 0.84 [...] in [address] Donis Carias [address] [facility] [address] thank you for allowing me to participate in Piper Rodríguez care, if there are any questions or concerns please do not hesitate to contact me at the number below. I spent a total of 60 minutes on the date of the service which included preparing to see the patient, gexw-gt-czyd patient care, completing clinical documentation, obtaining and/or reviewing separately obtained history, performing a medically appropriate examination, counseling and educating the patient/family/caregiver, ordering medications, tests, or procedures, communicating with other HCPs (not separately reported), independently interpreting results (not separately reported), communicating results to the patient/family/caregiver, and care coordination (not separately reported). Joseph Bragg MD. Hematology/Medical Oncology [facility] [place] [phone] CC: Joseph Bragg MD 06/28/2024 11:13 AM Signed Ordered port placement Chemo teach for FOLFOX F/u in 2 weeks Joseph Bragg MD 06/28/2024 11:30 AM Signed Addended by: JOSEPH BRAGG on: 06/28/2024 11:30 AM Modules accepted: Orders Referring Provider: DONIS CARIAS [[id number]] Allergies As of Date: 06/28/2024 (No Known Allergies) Date Reviewed: 06/28/2024 Reviewed by: Esthela Cantrell MA - Fully Assessed Reason for Visit: Colon Cancer [529] Cmt: New patient consult Visit Diagnosis:Malignant neoplasm of ascending colon (HCC) [C18.2] Order(s):CONSULT TO ONCOLOGY [9023] Order #: [id number]: 1 IR PORTOCATH PLACEMENT [[id number]] Order #: [id number] FUTURE COMPLETE BLOOD COUNT AND DIFFERENTIAL [SQCBCDIF] Order #: [id number] FUTURE COMPREHENSIVE METABOLIC PANEL [SQCMP] Order #: [id number] FUTURE CARCINOEMBRYONIC ANTIGEN [SQCEA] Order #: [id number] FUTURE FERRITIN [SQFERR] Order #: [id number] FUTURE IRON AND TIBC [SQIRON] Order #: [id number] FUTURE MISC SEND OUT TST 1 [SQMISC1] Order #: [id number] FUTURE Level of Service: OFFICE/OUTPATIENT [facility] 60 MINUTES [51973] Additional E/M codes: VISIT CPLX INHERENT EANDM ASSOC WITH MED * Disposition: Return in about 2 weeks (around 07/12/2024). Follow-up and Disposition History for Encounter Date Provider Department Center 06/28/2024 [id number], ADA*[place] Prescriptions as of 06/28/2024 - methocarbamol (ROBAXIN) [...] Observed: 06/28/2024 11:00 AM Status: COMPLETED Source: [facility] HNO ID: [id number] Author: JOSEPH BRAGG MD Service: ? Author Type: Physician Type: Progress Notes Filed: 06/28/2024 11:29 Note Text: PATIENT NAME: Piper Rodríguez [facility] NO.: [id number] ATTENDING PHYSICIAN: Joseph Bragg MD DATE OF SERVICE: June 28, [address] Donis Carias [address] [facility] [address] thank you for referring Piper Rodríguez for [...] pT3 pN1b. MSI Pending Works in a [employer]. Grand mother has colon cancer. No smoking. [...] Range Status 06/23/2024 12.7 % Final Abs [place] Date Value Ref Range Status 06/23/2024 0.84 [...] in [address] Donis Carias [address] [facility] [address] thank you for allowing me to participate [facility], if there are any questions or concerns please do not hesitate to contact me at the number below. I spent a total of 60 minutes on the date of the service which included preparing to see the patient, vwcn-ym-zujt patient care, completing clinical documentation, obtaining and/or reviewing separately obtained history, performing a medically appropriate examination, counseling and educating the patient/family/caregiver, ordering medications, tests, or procedures, communicating with other HCPs (not separately reported), independently interpreting results (not separately reported), communicating results to the patient/family/caregiver, and care coordination (not separately reported). Joseph Bragg MD. Hematology/Medical Oncology [facility] [phone] CC: CASE MGManan TODD Observed: 06/23/2024 10:07 AM Status: COMPLETED Source: [facility] HNO ID: [id number] Author: ELAYNE GONZALEZ LSW Service: Care Management Author Type: Urgent Care Physician Type: Care Mgmanan Initial Assessment Filed: 06/23/2024 10:12 Note Text: Summary: High Risk Readmission CARE MANAGEMENT: ASSESSMENT AND DISCHARGE PLAN SERVICE DATE: June 23, 2024 SERVICE TIME: 9:30 PCP: Gen Peña MD Primary Contact: Extended Emergency Contact Information Primary Emergency Contact: Lisa Rodríguez Address: [address] [place] [id number] [place] [address] Mobile Relation: Spouse Preferred language: SALVADOREAN Novelty Maker needed? No Admission Status: Inpatient Insurance Provider: ZAC HENDERSON PPO Discharge Planning requested by: Per Department Practice Potential Transition Plans No Services Indicated Advance Directives Current Advance Directive: None Plastics Patternmaker Attempted to Assist with AD Completion: Yes Action: Education Provided Current Living Arrangements and Support Lives with: Spouse/significant other Type of Residence: Private Residence (House) Support: Spouse/significant other How do you manage to accomplish the following: Independent: Ambulation;Transportation to appointments/community;Bathe/Shower;Dress;Meals/Meal Prep;Going to the bathroom;Medication Management Current Services/Equipment Current Post-Acute Service(s): None Discharge Planning Patient Goal(s): General wellness [place] of Choice Explained: [place] of Choice Given: No Reason Not Given: [...] : No HCPOA paperwok on file within [facility] and verified to be current as of date/time of this note Legal Next of Kin Hierarchy per [place] Revised Code: Legal Spouse Lisa [phone] Majority of Adult Children (consensus if possible) [...] Observed: 06/23/2024 10:07 AM Status: COMPLETED Source: [facility] HNO ID: [id number] Author: DONIS CARIAS MD Service: Colorectal Author Type: Physician Type: Progress Notes Filed: 06/23/2024 13:40 Note Text: Documentation Query Please specify a diagnosis associated with the Clinical Indicators for this patient Obesity class 2 This document will become part of the patient's medical record. CNDS Observed: 06/23/2024 7:19 AM Status: COMPLETED Source: [facility] HNO ID: [id number] Author: LASHONDA DELGADO MD Service: Colorectal Author [...] Your Medications These medications were sent to [facility] - [place] [address] - [address] - [phone] [place] [address] methocarbamol 500 mg tablet Future Appointments: Future Appointments Date Time Provider Department Center 07/05/2024 10:40 AM 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 APRN.BOOKY [id number] You will receive a phone call from our clinic nurse to check in on you in 5-7 days from discharge before your follow up appointment. Signed by Physician: Lashonda Delgado MD BAS METAB 1999 PNL SERPL Collected: 5:05 AM Status: F Source: [facility] Order Comment: Specimen Type : BLOOD SPECIMEN Ordering Facility: [facility] Address: [address] [place] [address] TYPE CODE TESTS RESULT OUT OF RANGE REFERENCE UNITS LAB 2345-7(LOINC) Glucose SerPl-nc 105 High 74-99 mg/dL Result Comment: The [place] Diabetes Association (ADA) provides guidance for cutoff [...] Standards of Medical Care in Diabetes 2016, [place] Diabetes Association. Diabetes Care. 2016.39(Suppl 1). LAB 3094-0(LOINC) BUN SerPl-mCnc 13 9-24 mg/ dL LAB 2160-0(LOINC) Creat SerPl-mCnc 0.96 0.73-1.22 mg/dL LAB 2951-2(LOINC) Sodium SerPl-sCnc 138 136-144 mmol/L LAB 2823-3(LOINC) Potassium SerPl-sCnc 4.2 3.7-5.1 mmol/L LAB 2075-0(LOINC) Chloride SerPl-sCnc 104 98-107 mmol/L LAB 2028-9(LOINC) CO2 SerPl-sCnc 24 22-30 mmo l/L LAB 13532-2(LOINC) Anion Gap SerPl-sCnc 10 8-15 mmol/L LAB 65261-1(LOINC) Calcium SerPl-mCnc 8.9 8.5-10.2 mg/dL LAB 09939-3(LOINC) Creatinine + eGFR Pnl SerPlBld 95 >=60 [...] accurately reflect actual GFR. Performed By: #### 49224-8, 14480-9, 2777-1 #### [facility] CLIA [id number] [address] [place] [address] [place] MAGNESIUM SERPL-MCNC Collected: 06/23/2024 5:05 AM S tatus: F Source: [facility] Order Comment: Specimen Type : BLOOD SPECIMEN Ordering Facility: [facility] Address: [address] [place] [address] TYPE CODE TESTS RESULT OUT OF RANGE REFERENCE UNITS LAB 21592-2(INC) Magnesium SerPl-mCnc 2.1 1.7-2.3 mg/dL Performed By: #### 32167-3, 97935-5, 2776-05 #### [facility] CLIA [id number] [address] PHOSPHATE SERPL-MCNC Collected: 06/23/2024 5:05 AM S tatus: F Source: [facility] Order Comment: Specimen Type : BLOOD SPECIMEN Ordering Facility: [facility] Address: [address] [place] [address] TYPE CODE TESTS RESULT OUT OF RANGE REFERENCE UNITS LAB 2777-1([facility]) Phosphate SerPl-mCnc 3.2 2.7-4.8 mg/dL Performed By: #### 87564-3, , 2776-05 #### [facility] CLIA [id number] [address] CBC W AUTO DIFF BLD Collected: 06/23/2024 5:[address] atus: F Source: [facility] Order Comment: Specimen Type : BLOOD SPECIMEN Ordering Facility: [facility] Address: [address] [place] [address] TYPE CODE TESTS RESULT OUT OF RANGE REFERENCE UNITS LAB 6690-2(INC) WBC # Bld Auto 6.59 3.70-11.00 k/uL LAB 789-8(INC) RBC # Bld Auto 4.06 Low 4.20-6.00 m/ uL LAB 718-7(INC) Hgb Bld-mCnc 11.9 Low 13.0-17.0 g/dL LAB 4544-3(INC) Hct VFr Bld Auto 38.0 Low 39.0-51.0 % LAB 787-2(LOINC) MCV RBC Auto 93.6 80.0-100.0 fL LAB 785-6(LOINC) MCH RBC Qn Auto 29.3 26.0-34.0 p g LAB 786-4(LOINC) MCHC RBC Auto-mCnc 31.3 30.5-36.0 g/dL LAB 28817-1(INC) RDW RBC-Rto 14.6 11.5-15.0 % LAB 777-3(LOINC) Platelet # Bld Auto 187 150-400 k/uL LAB 42754-4(LOINC) PMV Bld Auto 10.8 9.0-12.7 fL LAB 770-8(LOINC) Neutrophils/leuk NFr Bld Auto 54.3 % LAB 751-8(LOINC) Neutrophils # Bld Auto 3.58 1.45-7.50 k/uL LAB 736-9(INC) Lymphocytes/leuk NFr Bld Auto 27.0 % LAB 731-0(INC) Lymphocytes # Bld Auto 1.78 1.00-4.00 k/uL LAB 5905-5(INC) Monocytes/leuk NFr Bld Auto 12.7 % LAB 742-7(INC) Monocytes # Bld Auto 0.84 <0.87 k/uL LAB 713-8(INC) Eosinophil/leuk NFr Bld Auto 4.6 % LAB 711-2([facility]) Eosinophil # Bld Auto 0.30 <0.46 k/uL LAB 706-2([facility]) Basophils/leuk NFr Bld Auto 0.8 % LAB 704-7([facility]) Basophils # Bld Auto 0.05 <0.11 k/uL LAB 15738-0([facility]) Imm Granulocytes/escobar k NFr Bld Auto 0.6 % LAB 96877-3([facility]) Imm Granulocytes # Bld Auto 0.04 <0.10 k/uL LAB 72109-8([facility]) nRBC/100 WBC Bld-Rto 0.0 /100 WBC LAB 771-6([facility]) nRBC # Bld Auto <0.01 <0.01 k/u L LAB 11020-6([facility]) Differential method Bld Auto Performed By: #### 73896-8 # ### [facility] CLIA [id number] [address] [place] [address] STATES OF [facility] NURSING PROG Observed: 06/22/2024 3:44 PM Status: COMPLETED Source: [facility] HNO ID: [id number] Author: AMBREEN WORRELL, LINDSAY Service: Nursing Author Type: Registered Nurse Type: Nursing Progress Note Filed: 06/22/2024 15:45 Note Text: 1545 report called to AR. PROGRESS Observed: 06/22/2024 8:07 AM Status: COMPLETED Source: [facility] HNO ID: [id number] Author: LASHONDA DELGADO MD Service: Colorectal Author Type: Resident Type: Progress Notes Filed: 06/22/2024 08:11 Note Text: COLORECTAL SURGERY PROGRESS NOTE Piper Rodríguez [id number] Patient Active Hospital Problem List: Perioperative dehiscence [...] and Airways Line Duration Peripheral 06/21/24 1500 [facility] Short Left Forearm 20 Gauge <1 [...] Delgado MD General Surgery, PGY2 Please contact [phone] during the days for any questions. For nights and weekends, please contact [phone]. CBC W AUTO DIFF BLD Collected: 06/22/2024 5:[address] atus: F Source: [facility] Order Comment: Specimen Type : BLOOD SPECIMEN Ordering Facility: [facility] Address: [address] [place] [address] TYPE CODE TESTS RESULT OUT OF RANGE REFERENCE UNITS LAB 6690-2(LOINC) WBC # Bld Auto 8.70 3.70-11.00 k/uL LAB 789-8(LOINC) RBC # Bld Auto 4.34 4.20-6.00 m/ uL LAB 718-7(LOINC) Hgb Bld-mCnc 12.8 Low 13.0-17.0 g/dL LAB 4544-3(LOINC) Hct VFr Bld Auto 40.4 39.0-51.0 % LAB 787-2(LOINC) MCV RBC Auto 93.1 80.0-100.0 fL LAB 785-6(LOINC) MCH RBC Qn Auto 29.5 26.0-34.0 p g LAB 786-4(LOINC) MCHC RBC Auto-mCnc 31.7 30.5-36.0 g/dL LAB 64424-3(LOINC) RDW RBC-Rto 14.6 11.5-15.0 % LAB 777-3(LOINC) Platelet # Bld Auto 192 150-400 k/uL LAB 41527-4(LOINC) PMV Bld Auto 10.7 9.0-12.7 fL LAB 770-8(LOINC) Neutrophils/leuk NFr Bld Auto 72.5 % LAB 751-8(LOINC) Neutrophils # Bld Auto 6.31 1.45-7.50 k/uL LAB 736-9(INC) Lymphocytes/leuk NFr Bld Auto 13.1 % LAB 731-0(LOINC) Lymphocytes # Bld Auto 1.14 1.00-4.00 k/uL LAB 5905-5([facility]) Monocytes/leuk NFr Bld Auto 12.1 % LAB 742-7(INC) Monocytes # Bld Auto 1.05 High <0.87 k/uL LAB 713-8(INC) Eosinophil/leuk NFr Bld Auto 1.4 % LAB 711-2([facility]) Eosinophil # Bld Auto 0.12 <0.46 k/uL LAB 706-2([facility]) Basophils/leuk NFr Bld Auto 0.3 % LAB 704-7([facility]) Basophils # Bld Auto 0.03 <0.11 k/uL LAB 25360-2([facility]) Imm Granulocytes/escobar k NFr Bld Auto 0.6 % LAB 96394-5([facility]) Imm Granulocytes # Bld Auto 0.05 <0.10 k/uL LAB 89408-8([facility]) nRBC/100 WBC Bld-Rto 0.0 /100 WBC LAB 771-6([facility]) nRBC # Bld Auto <0.01 <0.01 k/u L LAB 56647-7([facility]) Differential method Bld Auto Performed By: #### 57252-5 # ### [facility] CLIA [id number] [place] [address] [place] BAS METAB 2000 PNL SERPL Collected: 5:06 AM Status: F Source: [facility] Order Comment: Specimen Type : BLOOD SPECIMEN Ordering Facility: [facility] Address: [address] [place] [address] TYPE CODE TESTS RESULT OUT OF RANGE REFERENCE UNITS LAB 2345-7([facility]) Glucose SerPl-mCnc 107 High 74-99 mg/dL Result Comment: The [place] Diabetes Association (ADA) provides guidance for cutoff [...] Standards of Medical Care in Diabetes 2016, [place] Diabetes Association. Diabetes Care. 2016.39(Suppl 1). LAB 3094-0(LOINC) BUN SerPl-mCnc 13 9-24 mg/ dL LAB 2160-0(LOINC) Creat SerPl-mCnc 0.93 0.73-1.22 mg/dL LAB 2951-2(LOINC) Sodium SerPl-sCnc 136 136-144 mmol/L LAB 2823-3(LOINC) Potassium SerPl-sCnc 4.6 3.7-5.1 mmol/L LAB 2075-0(LOINC) Chloride SerPl-sCnc 103 98-107 mmol/L LAB 2027-9(LOINC) CO2 SerPl-sCnc 24 22-30 mmo l/L LAB 49291-7(LOINC) Anion Gap SerPl-sCnc 9 8-15 mmol/L LAB 11527-8(LOINC) Calcium SerPl-mCnc 8.9 8.5-10.2 mg/dL LAB 14384-0(LOINC) Creatinine + eGFR Pnl SerPlBld 98 >=60 [...] accurately reflect actual GFR. Performed By: #### 84761-0, 2777-1, 39123-5 #### [facility] CLIA [id number] [address] [place] [address] [place] MAGNESIUM SERPL-MCNC Collected: 06/22/2024 5:06 AM S tatus: F Source: [facility] Order Comment: Specimen Type : BLOOD SPECIMEN Ordering Facility: [facility] Address: [address] [place] [address] TYPE CODE TESTS RESULT OUT OF RANGE REFERENCE UNITS LAB 38063-4(LOINC) Magnesium SerPl-mCnc 2.1 1.7-2.3 mg/dL Performed By: #### 11115-3, 2777-1, 67629-7 #### [facility] CLIA [id number] [address] [place] [id number] [place] PHOSPHATE SERPL-MCNC Collected: 06/22/2024 5:06 AM S tatus: F Source: [facility] Order Comment: Specimen Type : BLOOD SPECIMEN Ordering Facility: [facility] Address: [address] [place], [place] [address] TYPE CODE TESTS RESULT OUT OF RANGE REFERENCE UNITS LAB 2777-1(LOINC) Phosphate SerPl-mCnc 3.8 2.7-4.8 mg/dL Performed By: #### 19838-1, 2777-1, 05104-0 #### [facility] CLIA [id number] [address] OF [facility] NURSING PROG Observed: 06/21/2024 7:56 PM Status: COMPLETED Source: [facility] HNO ID: [id number] Author: OLYA SIEGEL RN Service: Nursing Author Type: Registered Nurse Type: Nursing Progress Note Filed: 06/21/2024 19:56 Note Text: Transfer Note: PATIENT NAME: Piper Rodríguez Patient Location: [place] [address]/[place] [address] Room: [place] [address] [facility] Actions taken: Room oriented, call light in reach, family at beside. ANES POSTPROC EVAL Observed: 06/21/2024 5:30 PM Status: COMPLETED Source: [facility] HNO ID: [id number] Author: OLGA LIDIA WHITEHEAD MD Service: Anesthesiology [...] June 21, 2024 TIME: 5:30 PM CSN: [id number] ANES PROCEDURE NOTE Observed: 06/21/2024 4:10 PM Status: COMPLETED Source: [facility]NO ID: [id number] Author: JULIOCESAR ENRIQUE APRN.MANAGER GLOBAL Service: Anesthesiology Author Type: Nurse Sub Acute Care Nurse Type: Anesthesia Procedure Notes Filed: 06/21/2024 16:11 Note Text: ANESTHESIOLOGY PROCEDURE NOTE Airway General Information Procedure Start Time/Medication Administration: 06/21/2024 3:58 PM Procedure End Time: 06/21/2024 3:58 PM Patient location during procedure: OR Timeout Performed Pre-procedure: timeout performed Consent Obtained: Yes 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, 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 GLOBAL: Juliocesar Enrique APRN.MANAGER GLOBAL Performed by: EVIN Indications and Patient Condition [...] no Airway not difficult SIGNATURE: Juliocesar Enrique APRN.MANAGER GLOBAL PATIENT NAME: Piper Rodríguez DATE: June 21, 2024 TIME: 4:10 PM CSN: [id number] OPERATIVE NO Observed: 06/21/2024 3:50 PM Status: COMPLETED Source: [facility] ID: [id number] Author: DONIS CARIAS MD Service: Colorectal Author Type: Physician Type: Operative Report Filed: 06/21/2024 17:12 Note Text: COLON AND RECTAL SURGERY OPERATIVE REPORT PATIENT NAME: Piper Rodríguez ADMISSION DATE: 06/21/2024 LOG ID: [id number] SURGERY/PROCEDURE DATE: 06/21/2024 INCISION/PROCEDURE START TIME: 4:08 PM INCISION CLOSE/PROCEDURE END TIME: 5:06 PM AGE: [age] year old SEX: male 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 Patient / Responsible Constitution Party agrees to proceed: yes Patient / [...] June 21, 2024 TIME: 3:43 PM CSN: [id number] HISTORY PHYSICAL Observed: 06/21/2024 2:54 PM Status: COMPLETED Source: [facility] ID: [id number] Author: MAIKEL JUSTICE MD Service: Colorectal Author [...] contents. They were worried so presented to [facility]. Pt's showed me a photo of [...] concerns and was told to present to [place] ED for further evaluation. Per pt has [...] Observed: 06/21/2024 2:12 PM Status: COMPLETED Source: [facility] ID: [id number] Author: GINO ANGEL MD Service: Emergency Medicine [...] on June [address] Carias at [facility]. States had been doing well. States that yesterday the wound opened minimally. He presented to [facility] for evaluation. States the physician said [...] Normal ECG Confirmed by MD ANGEL JAMES ([id number]) on 06/21/2024 2:14:56 PM Procedures ED Course [...] for CT imaging per vice president of marketing. CT abdomen pelvis discontinued. Will start [...] discussed with:admitting team, see ED course and business information consultant Discussion with admitting team included: General surgery Meds Given During Visit ED Medication Administration from 06/21/2024 1234 to 06/21/2024 1437 None Re-evaluation Resting comfortably Disposition The patient was admitted. Counseled patient and spouse regarding lab results and suspected diagnosis. Admitted to Operating Room. SIGNATURE: Ambreen Ferrera PA-C Attending Note Attestation for: WALKER/LENIN I have personally performed a face to [...] SERPL Collected: 2:08 PM Status: F Source: [facility] Order Comment: Specimen Type : BLOOD SPECIMEN Ordering Facility: [facility] Address: [address] [place] [address] TYPE CODE TESTS RESULT OUT OF RANGE REFERENCE UNITS LAB 2885-2(LOINC) Prot SerPl-mCnc 8.0 6.3-8.0 g/dL LAB 1751-7(LOINC) Albumin SerPl-mCnc 4.2 3.9-4.9 g/dL LAB 50314-4(LOINC) Calcium SerPl-mCnc 9.6 8.5-10.2 mg/dL LAB 1975-2(LOINC) Bilirub SerPl-mCnc 0.3 0.2-1.3 mg/dL LAB 6768-6(LOINC) ALP SerPl-cCnc 72 38-113 U/L LAB 1920-8(LOINC) AST SerPl-cCnc 58 High 14-40 U/L LAB 1742-6(LOINC) ALT SerPl-cCnc 91 High 10-54 U/L LAB 2345-7(LOINC) Glucose SerPl-mCnc 102 High 74-99 mg/dL Result Comment: The [place] Diabetes Association (ADA) provides guidance for cutoff [...] Standards of Medical Care in Diabetes 2016, [place] Diabetes Association. Diabetes Care. 2016.39(Suppl 1). LAB 3094-0(LOINC) BUN SerPl-mCnc 14 9-24 mg/ dL LAB 2160-0(LOINC) Creat SerPl-mCnc 0.99 0.73-1.22 mg/dL LAB 2951-2(LOINC) Sodium SerPl-sCnc 138 136-144 mmol/L LAB 2823-3(LOINC) Potassium SerPl-sCnc 4.3 3.7-5.1 mmol/L LAB 2075-0(LOINC) Chloride SerPl-sCnc 99 98-107 mmol/L LAB 2027-9(LOINC) CO2 SerPl-sCnc 28 22-30 mmo l/L LAB 67261-0(LOINC) Anion Gap SerPl-sCnc 11 8-15 mmol/L LAB 36681-6(LOINC) Creatinine + eGFR Pnl SerPlBld 91 >=60 [...] accurately reflect actual GFR. Performed By: #### 31027-0, 39963-7 #### [facility] CLIA [id number] [address] [place] [address] STATES OF [facility] MAGNESIUM SERPL-MCNC Collected: 06/21/2024 2:08 PM S tatus: F Source: [facility] Order Comment: Specimen Type : BLOOD SPECIMEN Ordering Facility: [facility] Address: [address] [place] [address] TYPE CODE TESTS RESULT OUT OF RANGE REFERENCE UNITS LAB 21712-7([facility]) Magnesium SerPl-mCnc 2.3 1.7-2.3 mg/dL Performed By: #### 56872-0, 65065-4 #### [facility] CLIA [id number] [address] [place] [address] STATES OF [facility] CBC PNL BLD AUTO Collected: 06/21/2024 2:08 PM Statu s: F Source: [facility] Comment: Specimen Type : BLOOD SPECIMEN Ordering Facility: [facility] Address: [address] [place] [address] TYPE CODE TESTS RESULT OUT OF RANGE REFERENCE UNITS LAB 6690-2(LOINC) WBC # Bld Auto 7.87 3.70-11.00 k/uL LAB 789-8(LOINC) RBC # Bld Auto 4.86 4.20-6.00 m/uL LAB 718-7(LOINC) Hgb Bld-mCnc 14.3 13.0-17.0 g/dL LAB 4544-3(LOINC) Hct VFr Bld Auto 45.2 39.0-51.0 % LAB 787-2(LOINC) MCV RBC Auto 93.0 80.0-100.0 fL LAB 785-6(LOINC) MCH RBC Qn Auto 29.4 26.0-34.0 pg LAB 786-4(LOINC) MCHC RBC Auto-mCnc 31.6 30.5-36.0 g/dL LAB 18971-0(LOINC) RDW RBC-Rto 14.7 11.5-15.0 % LAB 777-3(LOINC) Platelet # Bld Auto 222 150-400 k/uL LAB 27647-4([facility]) PMV Bld Auto 11.0 9.0-12.7 fL LAB 771-6([facility]) nRBC # Bld Auto <0.01 <0.01 k/uL Performed By: #### 79014-9 # ### [facility] CLIA [id number] [address] EKG Observed: 06/21/2024 2:04 PM Status: F Source: [facility] Ventricular Rate : 47 BPM Atrial Rate : 48 BPM P-R Interval : 173 ms QRS Duration : 105 ms Q-T Interval : 447 ms QTC Calculation(Bazett) : 396 ms Calculated P [place] : 44 degrees Calculated R [place] : 40 degrees Calculated T [place] : 58 degrees Sinus bradycardia Otherwise Normal ECG Confirmed by MD ANGEL JAMES ([id number]) on 06/21/2024 2:14:56 PM NAME : PIPER RODRÍGUEZ PID : [id number] : 1970 Gender : Male Race : [...] Referred By : , Acquired by : [id number], ED NOTE Observed: 06/21/2024 1:48 PM Status: COMPLETED Source: [facility] HNO ID: [id number] Author: JOSÉ MIGUEL LARA, LINDSAY Service: ? Author Type: Registered Nurse Type: ED Notes Filed: 06/21/2024 13:48 Note Text: Bed: 55-ED Expected date: Expected time: Means of arrival: Comments: triage ED TRIAGE NOTE Observed: 06/21/2024 1:41 PM Status: COMPLETED Source: [facility] HNO ID: [id number] Author: ETHAN DUMONT DO Service: Emergency Medicine [...] well as MDM SIGNATURE: Ethan Dumont DO CNPN Observed: 06/21/2024 12:00 AM Status: COMPLETED Source: [facility] Telephone ([facility]) PIPER RODRÍGUEZ ([id number]) 1970 M Date Time Provider Department 06/21/24 DONIS CARIAS [facility] During your visit today, we recorded the [...] for his appointment tomorrow vs going to [place] ED. Ultimately, he thinks he will go to [facility] ED. Allergies As of Date: 06/21/2024 (No [...] Observed: 06/20/2024 12:00 AM Status: COMPLETED Source: [facility] Telephone ([facility]) PIPER RODRÍGUEZ ([id number]) 1970 M Date Time Provider Department 06/20/24 DONIS CARIAS [facility] During your visit today, we recorded the following information about you: Maura Casiano 06/20/2024 3:02 PM Signed Patient calling concerned about surgical incision. She states it has opened up. Asking to speak to nurse to find out if they should go to local ER # [phone] Jocelyn Cantrell RN 06/20/2024 3:17 PM Signed [...] Observed: 06/19/2024 12:00 AM Status: COMPLETED Source: [facility] Telephone ([facility]) PIPER RODRÍGUEZ ([id number]) 1970 M Date Time Provider Department 06/19/24 DONIS CARIAS [facility] During your visit today, we recorded the following information about you: Maura Casiano 06/19/2024 1:29 PM Signed Patient had surgery on 06/14/24. He is asking to speak to a nurse about his restrictions and what he can and cannot do # [phone] Jocelyn Cantrell RN 06/19/2024 1:48 PM Signed [...] by: Mami Bustos, LINDSAY - Fully Assessed Reason for Visit: Patient Question [9309] Prescriptions as of 06/19/2024 - acetaminophen (TYLENOL) [...] Observed: 06/19/2024 12:00 AM Status: COMPLETED Source: [facility] Letter Text PROGRESS Observed: 06/16/2024 12:08 PM Status: COMPLETED Source: [facility] HNO ID: [id number] Author: DONIS CARIAS MD Service: Colorectal Author [...] Observed: 06/16/2024 9:30 AM Status: COMPLETED Source: [facility] ID: [id number] Author: DONIS CARIAS MD Service: Colorectal Author [...] which included preparing to see the patient, etki-bo-[id number] patient care, completing clinical documentation, obtaining and/or reviewing separately obtained history, performing a medically appropriate examination, and care coordination (not separately reported). SIGNATURE: 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 APRN.CNP DATE: June 16, 2024 TIME: 9:30 AM PROGRESS Observed: 06/16/2024 7:16 AM Status: COMPLETED [facility] [id number] Author: DAVON WATSON MD Service: Colorectal Author [...] PGY-6 Colorectal Surgery Resident Blue Team Pager: [phone] General Surgery Colorectal Surgery On-Call Pager: [phone](Weekends, Weekdays 6PM-6AM)` SUBJECTIVE: No acute issues overnight. [...] 0659 06/16/24 07 - 06/17/24 0659 Shift 5414-7709 4627-9683 7603-2541 24 Hour Total 8678-1134 4465-3753 5661-4303 24 Hour Total INTAKE Shift Total OUTPUT [...] 06/16/2024 6:[address] atus: F Source: [facility] Order Comment: Specimen Type : BLOOD SPECIMEN Ordering Facility: [facility] Address: [address] [place] [address] TYPE CODE TESTS RESULT OUT OF RANGE REFERENCE UNITS LAB 6690-2([facility]) WBC # Bld Auto 6.54 3.70-11.00 k/uL LAB 789-8([facility]) RBC # Bld Auto 4.61 4.20-6.00 m/ uL LAB 718-7([facility]) Hgb Bld-mCnc 13.8 13.0-17.0 g/dL LAB 4544-3([facility]) Hct VFr Bld Auto 44.0 39.0-51.0 % LAB 787-2([facility]) MCV RBC Auto 95.4 80.0-100.0 fL LAB 785-6([facility]) MCH RBC Qn Auto 29.9 26.0-34.0 p g LAB 786-4([facility]) MCHC RBC Auto-mCnc 31.4 30.5-36.0 g/dL LAB 84625-0([facility]) RDW RBC-Rto 15.6 High 11.5-15.0 % LAB 777-3([facility]) Platelet # Bld Auto 191 150-400 k/uL LAB 92476-7([facility]) PMV Bld Auto 11.2 9.0-12.7 fL LAB 770-8([facility]) Neutrophils/leuk NFr Bld Auto 66.1 % LAB 751-8([facility]) Neutrophils # Bld Auto 4.32 1.45-7.50 k/uL LAB 736-9([facility]) Lymphocytes/leuk NFr Bld Auto 18.8 % LAB 731-0([facility]) Lymphocytes # Bld Auto 1.23 1.00-4.00 k/uL LAB 5905-5([facility]) Monocytes/leuk NFr Bld Auto 11.6 % LAB 742-7([facility]) Monocytes # Bld Auto 0.76 <0.87 k/uL LAB 713-8(LOINC) Eosinophil/leuk NFr Bld Auto 2.4 % LAB 711-2(LOINC) Eosinophil # Bld Auto 0.16 <0.46 k/uL LAB 706-2(LOINC) Basophils/leuk NFr Bld Auto 0.6 % LAB 704-7(LOINC) Basophils # Bld Auto 0.04 <0.11 k/uL LAB 39782-5(LOINC) Imm Granulocytes/escobar k NFr Bld Auto 0.5 % LAB 42103-8(LOINC) Imm Granulocytes # Bld Auto 0.03 <0.10 k/uL LAB 46489-9(LOINC) nRBC/100 WBC Bld-Rto 0.0 /100 WBC LAB 771-6(LOINC) nRBC # Bld Auto <0.01 <0.01 k/u L LAB 11731-6(LOINC) Differential method Bld Auto Performed By: #### 55169-3 # ### [facility] CLIA [id number] OF [facility] BAS METAB 2000 PNL SERPL Collected: 6:34 AM Status: F Source: [facility] Order Comment: Specimen Type : BLOOD SPECIMEN Ordering Facility: [facility] Address: [address] [place] [address] TYPE CODE TESTS RESULT OUT OF RANGE REFERENCE UNITS LAB 2345-7(LOINC) Glucose SerPl-mCnc 162 High 74-99 mg/dL Result Comment: The [place] Diabetes Association (ADA) provides guidance for cutoff [...] Standards of Medical Care in Diabetes 2016, [place] Diabetes Association. Diabetes Care. 2016.39(Suppl 1). LAB 3094-0(LOINC) BUN SerPl-mCnc 10 9-24 mg/ dL LAB 2160-0(LOINC) Creat SerPl-mCnc 0.90 0.73-1.22 mg/dL LAB 2951-2(LOINC) Sodium SerPl-sCnc 137 136-144 mmol/L LAB 2823-3(LOINC) Potassium SerPl-sCnc 4.4 3.7-5.1 mmol/L LAB 2075-0(LOINC) Chloride SerPl-sCnc 103 98-107 mmol/L LAB 2028-9(LOINC) CO2 SerPl-sCnc 22 22-30 mmo l/L LAB 66673-2(LOINC) Anion Gap SerPl-sCnc 12 8-15 mmol/L LAB 13254-8(LOINC) Calcium SerPl-mCnc 8.9 8.5-10.2 mg/dL LAB 41733-4(LOINC) Creatinine + eGFR Pnl SerPlBld 102 >=60 [...] accurately reflect actual GFR. Performed By: #### 18082-2 # ### [facility] CLIA [id number] CASE MGT INOLGA TODD Observed: 06/15/2024 11:19 AM Status: COMPLETED Source: [facility] HNO ID: [id number] Author: GELY AKINS RN Service: Care Management Author Type: Registered Nurse Type: Care Mgt Initial Assessment Filed: 06/15/2024 11:22 Note Text: CARE MANAGEMENT: ASSESSMENT AND DISCHARGE PLAN SERVICE DATE: June 15, 2024 SERVICE TIME: 11:00am PCP: Gen Peña MD Primary Contact: Extended Emergency Contact Information Primary Emergency Contact: Lisa Rodríguez Address: [address] [place] [address] Mobile Relation: Spouse Preferred language: SALVADOREAN Novelty Maker needed? 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 Pt reports he has good support system. Denies needs. No skilled needs identified. Spouse will transport home at discharge. CM remains available if needs arise. SIGNATURE: Gely Akins RN PATIENT NAME: Piper Rodríguez DATE: June 15, 2024 TIME: 11:20 AM NUTRITION Observed: 06/15/2024 9:44 AM Status: COMPLETED Source: [facility] HNO ID: [id number] Author: RADHIKA ARZATE RD Service: Nutrition Therapy [...] ARGELIA Zhang June 15, 2024 9:44 AM PROGRESS Observed: 06/15/2024 8:29 AM Status: COMPLETED [facility] [id number] Author: LASHONDA DELGADO MD Service: Colorectal Author [...] 06/15/2024 COLORECTAL SURGERY PROGRESS NOTE Piper Rodríguez [id number] Patient Active Hospital Problem List: Malignant neoplasm [...] and Airways Line Duration Peripheral 06/14/24 0816 [facility] Left Antecubital 20 Gauge 1 day [...] Delgado MD General Surgery, PGY2 Please contact [phone] during the days for any questions. For nights and weekends, please contact [phone]. CBC W AUTO DIFF BLD Collected: 06/15/2024 4:[address] atus: F Source: [facility] Order Comment: Specimen Type : BLOOD SPECIMEN Ordering Facility: [facility] Address: [address] [place] [address] TYPE CODE TESTS RESULT OUT OF RANGE REFERENCE UNITS LAB 6690-2(LOINC) WBC # Bld Auto 9.78 3.70-11.00 k/uL LAB 789-8(LOINC) RBC # Bld Auto 4.51 4.20-6.00 m/ uL LAB 718-7(LOINC) Hgb Bld-mCnc 13.8 13.0-17.0 g/dL LAB 4544-3(LOINC) Hct VFr Bld Auto 41.5 39.0-51.0 % LAB 787-2(LOINC) MCV RBC Auto 92.0 80.0-100.0 fL LAB 785-6(LOINC) MCH RBC Qn Auto 30.6 26.0-34.0 p g LAB 786-4(LOINC) MCHC RBC Auto-mCnc 33.3 30.5-36.0 g/dL LAB 29715-9(LOINC) RDW RBC-Rto 15.5 High 11.5-15.0 % LAB 777-3(LOINC) Platelet # Bld Auto 176 150-400 k/uL LAB 25848-0(LOINC) PMV Bld Auto 10.8 9.0-12.7 fL LAB 770-8(LOINC) Neutrophils/leuk NFr Bld Auto 77.7 % LAB 751-8(LOINC) Neutrophils # Bld Auto 7.59 High 1.45-7.50 k/uL LAB 736-9(LOINC) Lymphocytes/leuk NFr Bld Auto 10.3 % LAB 731-0(LOINC) Lymphocytes # Bld Auto 1.01 1.00-4.00 k/uL LAB 5905-5(LOINC) Monocytes/leuk NFr Bld Auto 10.9 % LAB 742-7(LOINC) Monocytes # Bld Auto 1.07 High <0.87 k/uL LAB 713-8(LOINC) Eosinophil/leuk NFr Bld Auto 0.2 % LAB 711-2(LOINC) Eosinophil # Bld Auto <0.03 <0.46 k/uL LAB 706-2(LOINC) Basophils/leuk NFr Bld Auto 0.3 % LAB 704-7(LOINC) Basophils # Bld Auto 0.03 <0.11 k/uL LAB 02605-6(LOINC) Imm Granulocytes/escobar k NFr Bld Auto 0.6 % LAB 28618-7(LOINC) Imm Granulocytes # Bld Auto 0.06 <0.10 k/uL LAB 15408-7(LOINC) nRBC/100 WBC Bld-Rto 0.0 /100 WBC LAB 771-6(LOINC) nRBC # Bld Auto <0.01 <0.01 k/u L LAB 45357-1(LOINC) Differential method Bld Auto Performed By: #### 06649-7 # ### [facility] CLIA [id number] [address] [place] [address] [place] BAS METAB 2000 PNL SERPL Collected: 4:42 AM Status: F Source: [facility] Order Comment: Specimen Type : BLOOD SPECIMEN Ordering Facility: [facility] Address: [address] [place] [address] TYPE CODE TESTS RESULT OUT OF RANGE REFERENCE UNITS LAB 2345-7(LOINC) Glucose SerPl-mCnc 105 High 74-99 mg/dL Result Comment: The [place] Diabetes Association (ADA) provides guidance for cutoff [...] Standards of Medical Care in Diabetes 2016, [place] Diabetes Association. Diabetes Care. 2016.39(Suppl 1). LAB 3094-0(LOINC) BUN SerPl-mCnc 19 9-24 mg/ dL LAB 2160-0(LOINC) Creat SerPl-mCnc 1.25 High 0.73-1.22 mg/dL LAB 2951-2(LOINC) Sodium SerPl-sCnc 134 Low 136-144 mmol/L LAB 2823-3(LOINC) Potassium SerPl-sCnc 4.8 3.7-5.1 mmol/L LAB 2075-0(LOINC) Chloride SerPl-sCnc 100 98-107 mmol/L LAB 2028-9(LOINC) CO2 SerPl-sCnc 21 Low 22-30 mmo l/L LAB 75514-9(LOINC) Anion Gap SerPl-sCnc 13 8-15 mmol/L LAB 97816-7(LOINC) Calcium SerPl-mCnc 8.9 8.5-10.2 mg/dL LAB 09368-5(LOINC) Creatinine + eGFR Pnl SerPlBld 69 >=60 [...] accurately reflect actual GFR. Performed By: #### 94232-8 # ### [facility] CLIA [id number] [address] [place] [address] [place] ANES POSTPROC EVAL Observed: 06/14/2024 3:59 PM Status: COMPLETED Source: [facility] HNO ID: [id number] Author: ILA MORTENSEN MD Service: Critical Care [...] June 14, 2024 TIME: 3:59 PM CSN: [id number] SURGICAL PATHOLOGY Collected: 10:43 AM Status: F Source: [facility] Order Comment: Specimen Type : TISSUE SPECIMEN Ordering Facility: [facility] Address: [address] [place] [address] TYPE CODE TESTS RESULT OUT OF RANGE REFERENCE UNITS PATHOLOGY [id number] CASE REPORT Result Comment: Surgical Pat hology Report Case: [id number] Authorizing Provider: Donis Carias MD Collected: 06/14/2024 10:43 AM Ordering Location: [facility] Received: 06/14/2024 11:18 AM Operating Room Pathologist: Samir De La Cruz MD Specimen: Colon, Resection, right colon PATHOLOGY [id number] FINAL DIAGNOSIS Result Comment: Terminal ile um, right colon, appendix, and omentum, resection: - Invasive moderately differentiated colonic adenocarcinoma. - Three of 18 lymph nodes involved by metastatic adenocarcinoma (3/18). - Appendix with fibrous obliteration of the tip. - Omentum with no evidence of tumor. - Terminal ileum with no evidence of tumor. - See synoptic report. OLOGY [id number] BLOCK FOR ADDITIONAL BIOMARKERS/MOLE CULAR STUDIES A6 PATHOLOGY [id number] SYNOPTIC REPORT Result Comment: COLON AND RE [...] ADDITIONAL FINDINGS Additional Findings: None identified PATHOLOGY [id number] GROSS DESCRIPTION Result Comment: A. Colon, Re [...] reveal any areas of induration or nodularity. Log Roper sections are submitted as follows: A1 perpendicular [...] PM Gross examination performed at [facility], [address] [place] [address] PATHOLOGY CDX2 CLINICAL HISTORY Result Comment: Pre-op diagn osis: Malignant neoplasm of ascending colon (HCC) [C18.2] PATHOLOGY [facility] FINAL PERFORMING LAB Result Comment: Diagnostic i nterpretation performed at: [facility], [address] [place] [address] CLIA# [id number] Forestry Laborer: Kenneth Rajput MD Performed By: #### S #### [facility] CLIA [id number] [address] [place] [address] [place] [facility] CLIA [id number] [address] [place] [address] [place] MISMATCH REPAIR PROTEINS BY IHC Collected: 06/14/2024 10:43 AM Status: F Source: [facility] Order Comment: Specimen Type : TISSUE SPECIMEN Ordering Facility: [facility] Address: [address] [place] [address] TYPE CODE TESTS RESULT OUT OF RANGE REFERENCE UNITS LAB [id number] MMR INTERPRETATION Proficient (Microsatellite Stable) LAB 0981853927 MLH1 IMMUNOHISTOCHEMIC AL RESULTS Normal/Intact Nuclear Expression LAB 7298156819 PMS2 IMMUNOHISTOCHEMIC AL RESULTS Normal/Intact Nuclear Expression LAB 5701732338 MSH2 IMMUNOHISTOCHEMIC AL RESULTS Normal/Intact Nuclear Expression LAB 2484958933 MSH6 IMMUNOHISTOCHEMIC AL RESULTS Normal/Intact Nuclear Expression LAB 9226008343 MLH1 PROMOTER METHYLATION ASSAY No LAB 0209164323 TUMOR TYPE MMR Primary Color ectal Adenocarcinoma LAB [id number] [facility] CASE NUMBER MMR [id number] LAB 0938705739 FIXATIVE Formalin, 10% Neutral Buffered LAB 0440814927 BIOMARKER INTERPRETATION COMMENT AND REFERENCE RANGE Result [...] patients with metastatic carcinoma, Alana et al. ([facility] 2015;372:9969-44) reported that the clinical benefit of pembrolizumab, [...] questions about this result, please call the [facility] at [phone]. LAB [id number] BIOMARKER METHOD Immunohisto chemistry laboratory technician ry was performed on formalin fixed paraffin-embedded tissue using the following clones: MLH1 (clone M1 mouse monoclonal); MSH2 ([id number] mouse monoclonal); and MSH6 (SP93 rabbit monoclonal); followed by ultrasensitive bright field detection (Optiview with amplification) from [[employer], [place]]. PMS2 (EP51 Rabbit monoclonal, [employer]); followed by ultrasensitive bright field detection ( Rosales Refine Polymer DAB Detection) from [[employer], [place], [place]]. LAB [id number] AP BIOMARKER DISCLAIMER Result Comment: Laboratory D silviano Test (LDT) Disclaimer: Performance characteristics of immunohistochemical, immunofluorescent and chromogenic in-situ hybridization tests have been determined by the performing laboratory within [facility]s Don[facility] Thorpe Pathology and Laboratory Medicine Department ([facility], [facility], [facility], [facility], [facility], [facility], or [facility]) in a manner consistent with CLIA requirements. [...] Result Comment: Diagnostic i nterpretation performed at: [facility], [address] [place] [address] CLIA# [id number] Forestry Laborer: Kenneth Rajput MD Electronically signed out by: Sophia Amaya MD LAB [id number] AP BLOCK ID [id number] Performed By: #### [id number] # ### [facility] CLIA [id number] [address] [place] [address] [place] ANES PROCEDURE NOTE Observed: 06/14/2024 9:20 AM Status: COMPLETED Source: [facility] HNO ID: [id number] Author: ANNABEL THACKER APRN.MANAGER GLOBAL Service: Nursing Author Type: Nurse Sub Acute Care Nurse Type: Anesthesia Procedure Notes Filed: 06/14/2024 09:22 Note Text: ANESTHESIOLOGY PROCEDURE NOTE PIV General Information Procedure Start Time/Medication Administration: 06/14/2024 9:02 AM Procedure End Time: 06/14/2024 9:02 AM Patient Location: OR Staffing MANAGER GLOBAL: Annabel Thacker APRN.MANAGER GLOBAL Performed by: MANAGER GLOBAL Preparation Sterility Preparation: hand hygiene performed prior to procedure, surgical cap used, mask used, skin prep agent completely dried prior to procedure Site Prep: chlorhexidine Procedure Details Indication: need for IV access Needle Size/Type: 20 gauge angiocath Orientation: Right Location: Hand Imaging Guidance Used: No SIGNATURE: Annabel Thacker APRN.MANAGER GLOBAL PATIENT NAME: Piper Rodríguez DATE: June 14, 2024 TIME: 9:20 AM CSN: [id number] ANES PROCEDURE NOTE Observed: 06/14/2024 9:19 AM Status: COMPLETED Source: [facility] HNO ID: [id number] Author: ANNABEL THACKER APRN.MANAGER GLOBAL Service: Nursing Author Type: Nurse Sub Acute Care Nurse Type: Anesthesia Procedure Notes Filed: 06/14/2024 09:20 Note Text: ANESTHESIOLOGY PROCEDURE NOTE Airway General Information Procedure Start Time/Medication Administration: 06/14/2024 8:59 AM Procedure End Time: 06/14/2024 8:59 AM Patient location during procedure: OR 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, 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 Anesthesiologist: Ila Mortensen MD MANAGER GLOBAL: Annabel Thacker APRN.MANAGER GLOBAL Performed by: MANAGER GLOBAL Indications and Patient Condition Indications for airway [...] no Airway not difficult SIGNATURE: Annabel Thacker APRN.MANAGER GLOBAL PATIENT NAME: Piper Rodríguez DATE: June 14, 2024 TIME: 9:19 AM CSN: [id number] OPERATIVE NO Observed: 06/14/2024 8:48 AM Status: COMPLETED Source: [facility] ID: [id number] Author: DONIS CARIAS MD Service: Colorectal Author Type: Physician Type: Operative Report Filed: 06/21/2024 15:52 Note Text: COLON AND RECTAL SURGERY OPERATIVE REPORT PATIENT NAME: Piper Rodríguez ADMISSION DATE: 06/14/2024 LOG ID: [id number] SURGERY/PROCEDURE DATE: 06/14/2024 INCISION/PROCEDURE START TIME: 9:17 AM INCISION CLOSE/PROCEDURE END TIME: 11:24 AM AGE: [age] year old SEX: male SURGEON(S)/PROCEDURALIST(S) AND WATER QUALITY SPECIALIST(S): Surgeons and Role: * Donis Carias [...] inserted into the bowel to create a [id number] functional end-to-end anastomosis. The bowel was lined [...] Observed: 06/14/2024 8:15 AM Status: COMPLETED Source: [facility] HNO ID: [id number] Author: ILA MORTENSEN MD Service: Critical Care [...] and consent discussed: yes. Patient / Responsible Constitution Party agrees to proceed: yes Patient / [...] none. Vitals Value Taken Time BP 120/66 06/14/24810 Pulse Resp 18 06/14/24810 Temp 36.2 ?C (97.2 ?F) 06/14/24810 SpO2 96 % 06/14/24810 Facility-Administered Medications as of 06/14/2024 Medication Dose [...] June 14, 2024 TIME: 9:23 AM CSN: [id number] ECG COMPLETE Observed: 06/08/2024 8:53 AM Status: F Source: [facility] Ventricular Rate : 62 BPM Atrial Rate : 62 BPM P-R Interval : 170 ms QRS Duration : 94 ms Q-T Interval : 402 ms QTC Calculation(Bazett) : 408 ms Calculated P [place] : 50 degrees Calculated R [place] : 18 degrees Calculated T [place] : 44 degrees NORMAL SINUS RHYTHM NORMAL ECG Confirmed by ALEX METCALF MD ([id number]) on 06/09/2024 6:31:40 AM NAME : PIPER RODRÍGUEZ PID : [id number] : 1970 Gender : Male Race : ORD : [id number] Procedure Date : Jun 08 2024 08:53:10 Edit Date : Jun 09 2024 06:31:44 Diagnosis: NORMAL SINUS RHYTHM NORMAL ECG Confirmed by ALEX METCALF MD ([id number]) on 06/09/2024 6:31:40 AM Test Reason : PRE OP Location : 545 : [facility] Overread By : ALEX METCALF MD Edited By : ALEX METCALF MD Referred By : DONIS CARIAS Acquired by : TMM, HISTORY PHYSICAL Observed: 06/08/2024 8:45 AM Status: COMPLETED Source: [facility] HNO ID: [id number] Author: AUBREY BAER PA-C Service: ? Author Type: Physician Salsa Dance Instructor Type: H&P Filed: 06/08/2024 09:20 Note Text: [...] 5 (+SHERIE, unable to tolerate CPAP ) [id number] Score: Age: <65 Sex: male CHF history: No Hypertension history: Yes Stroke/TIA/thromboembolism history: No Vascular disease history: No Diabetes history: No [id number] Score: 1 ARISCAT Score: Age: 51-80 Preoperative [...] fevers. Neuro: No history of TIA's, stroke, MOTION STUDY TECHNICIAN tumor, impaired sensorium, hemiplegia, paraplegia or quadraplegia. [...] Observed: 06/05/2024 12:00 AM Status: COMPLETED Source: [facility] Telephone ([facility]) PIPER RODRÍGUEZ ([id number]) 1970 M Date Time Provider Department 06/05/24 [...] 06/02/2024 9:[address] atus: F Source: [facility] Order Comment: Specimen Type : BLOOD SPECIMEN Ordering Facility: [facility] Address: [address] [place] [address] TYPE CODE TESTS RESULT OUT OF RANGE REFERENCE UNITS LAB 6690-2(LOINC) WBC # Bld Auto 6.27 3.70-11.00 k/uL LAB 789-8(LOINC) RBC # Bld Auto 4.99 4.20-6.00 m/ uL LAB 718-7(LOINC) Hgb Bld-mCnc 15.1 13.0-17.0 g/dL LAB 4544-3([facility]) Hct VFr Bld Auto 46.1 39.0-51.0 % LAB 787-2([facility]) MCV RBC Auto 92.4 80.0-100.0 fL LAB 785-6([facility]) MCH RBC Qn Auto 30.3 26.0-34.0 p g LAB 786-4([facility]) MCHC RBC Auto-mCnc 32.8 30.5-36.0 g/dL LAB 39584-0([facility]) RDW RBC-Rto 16.0 High 11.5-15.0 % LAB 777-3([facility]) Platelet # Bld Auto 182 150-400 k/uL LAB 94560-0([facility]) PMV Bld Auto 10.1 9.0-12.7 fL LAB 770-8([facility]) Neutrophils/leuk NFr Bld Auto 64.7 % LAB 751-8([facility]) Neutrophils # Bld Auto 4.06 1.45-7.50 k/uL LAB 736-9([facility]) Lymphocytes/leuk NFr Bld Auto 18.8 % LAB 731-0([facility]) Lymphocytes # Bld Auto 1.18 1.00-4.00 k/uL LAB 5905-5([facility]) Monocytes/leuk NFr Bld Auto 10.5 % LAB 742-7([facility]) Monocytes # Bld Auto 0.66 <0.87 k/uL LAB 713-8([facility]) Eosinophil/leuk NFr Bld Auto 4.5 % LAB 711-2([facility]) Eosinophil # Bld Auto 0.28 <0.46 k/uL LAB 706-2([facility]) Basophils/leuk NFr Bld Auto 1.0 % LAB 704-7([facility]) Basophils # Bld Auto 0.06 <0.11 k/uL LAB 47165-5([facility]) Imm Granulocytes/escobar k NFr Bld Auto 0.5 % LAB 60961-3([facility]) Imm Granulocytes # Bld Auto 0.03 <0.10 k/uL LAB 11661-8([facility]) nRBC/100 WBC Bld-Rto 0.0 /100 WBC LAB 771-6(LOINC) nRBC # Bld Auto <0.01 <0.01 k/u L LAB 12878-6([facility]) Differential method Bld Auto Performed By: #### 73041-6 # ### [facility] CLIA [id number] [address] [place] [address] [place] COMP METAB 2000 PNL SERPL Collected: 9:53 AM Status: F Source: [facility] Order Comment: Specimen Type : BLOOD SPECIMEN Ordering Facility: [facility] Address: [address] [facility] [place] [address] TYPE CODE TESTS RESULT OUT OF RANGE REFERENCE UNITS LAB 2885-2(INC) Prot SerPl-mCnc 7.8 6.3-8.0 g/dL LAB 1751-7(LOINC) Albumin SerPl-mCnc 4.1 3.9-4.9 g/dL LAB 42796-1(LOINC) Calcium SerPl-mCnc 9.1 8.5-10.2 mg/dL LAB 1975-2(LOINC) Bilirub SerPl-mCnc 0.6 0.2-1.3 mg/dL LAB 6768-6(LOINC) ALP SerPl-cCnc 85 38-113 U/L LAB 1920-8(LOINC) AST SerPl-cCnc 151 High 14-40 U/L LAB 1742-6(LOINC) ALT SerPl-cCnc 175 High 10-54 U/L LAB 2345-7(LOINC) Glucose SerPl-mCnc 97 74-99 mg/dL Result Comment: The [place] Diabetes Association (ADA) provides guidance for cutoff [...] Standards of Medical Care in Diabetes 2016, [place] Diabetes Association. Diabetes Care. 2016.39(Suppl 1). LAB 3094-0(LOINC) BUN SerPl-mCnc 11 9-24 mg/ dL LAB 2160-0(LOINC) Creat SerPl-mCnc 1.08 0.73-1.22 mg/dL LAB 2951-2(LOINC) Sodium SerPl-sCnc 131 Low 136-144 mmol/L LAB 2823-3(LOINC) Potassium SerPl-sCnc 5.2 High 3.7-5.1 mmol/L LAB 2075-0(LOINC) Chloride SerPl-sCnc 94 Low 98-107 mmol/L LAB 2028-9(LOINC) CO2 SerPl-sCnc 24 22-30 mmo l/L LAB 91686-7(LOINC) Anion Gap SerPl-sCnc 13 8-15 mmol/L LAB 15690-3(LOINC) Creatinine + eGFR Pnl SerPlBld 82 >=60 [...] accurately reflect actual GFR. Performed By: #### 57017-9 # ### [facility] CLIA [id number] [place] [address] [place] CEA SERPL-MCNC Collected: 5 9:53 AM Status: F Source: [facility] Order Comment: Specimen Type : BLOOD SPECIMEN Ordering Facility: [facility] Address: [address] [place] [address] TYPE CODE TESTS RESULT OUT OF RANGE REFERENCE UNITS LAB 2039-6(LOINC) CEA SerPl-mCnc 3.5 High <=2.9 ng/mL Result Comment: Carcinoembry onic antigen test is used as an aid in monitoring response to treatment or recurrence in patients with established colorectal, breast, lung, prostatic, pancreatic, and ovarian carcinomas. Clinical correlation is required. The Carcinoembryonic antigen test was performed using the [employer] DXI paramagnetic particle chemiluminescent immunoassay method. Results obtained with different assay methods or kits cannot be used interchangeably. Performed By: #### 2039-6 ## ## [facility] CLIA [id number] [address] [place] [address] [place] CT CHEST W IVCON Observed: 06/02/2024 9:41 AM Status: F Source: [facility] * * *Final Report* * * [...] pelvis. 4. Fatty infiltration of the liver. Furnace Combustion Tester: WILBER Transcribe Date/Time: Jun 04 2024 8:16A Dictated by : OSKAR JOHNSON MD This examination was interpreted and the report reviewed and electronically signed by: OSKAR JOHNSON MD on Jun 04 2024 8:28AM EST [id number] CT ABD/PEL W IVCON Observed: 06/02/2024 9:41 AM Status: F Source: [facility] * * *Final Report* * * [...] pelvis. 4. Fatty infiltration of the liver. Furnace Combustion Tester: WILBER Transcribe Date/Time: Jun 04 2024 8:16A Dictated by : OSKAR JOHNSON MD This examination was interpreted and the report reviewed and electronically signed by: OSKAR JOHNSON MD on Jun 04 2024 8:28AM EST [id number] NURSING PROG Observed: 06/02/2024 9:30 AM Status: COMPLETED Source: [facility] HNO ID: [id number] Author: ABILIO TANG RN Service: PICC Team [...] Observed: 06/02/2024 9:30 AM Status: COMPLETED Source: [facility] HNO ID: [id number] Author: EVENS NELSON, RT(R) Service: Radiology Author Type: Technologist Type: [...] PATIENT PRESENTS WITH AN IMPLANTABLE OR ATTACHED LION HUNTER: No RADIOLOGY DEPARTMENT: CT; Exam(s) Completed: Chest Abdomen Pelvis PERIPHERAL IV DATA: Site assessment: Clean,Dry and Intact, Site disposition Discontinued SIGNED BY: RT Rhys(R) June 02, 2024 9:36 AM CNPN Observed: 06/01/2024 12:00 AM Status: COMPLETED Source: [facility] Telephone ([facility]) PIPER RODRÍGUEZ ([id number]) 1970 M Date Time Provider Department 06/01/24 DONIS CARIAS [facility] During your visit today, we recorded the following information about you: Be Cloud 06/01/2024 10:07 AM Signed 06/01 Patient called, stated that he wanted to cancel CT that was for 06/02 due to distance to appointment. Stated that will go to [facility] to gert CT done. Was wondering if able to go to [place] for CT? Jocelyn Cantrell RN 06/01/2024 11:03 AM Signed Spoke with patient. He was under the impression he could get his CT done in [place] and could have the images sent to Dr. Carias. We had a long discussion about the process to make that happen and my concerns that it would not be done in time to continue with his surgery on 06/14. He was agreeable to reschedule his CT at [place] on 06/02/24. He will get his lab work done tomorrow prior to his CT. Allergies As of Date: 06/01/2024 (No Known Allergies) Date Reviewed: 05/25/2024 Reviewed by: Jessica Bass OCCA - Fully Assessed Reason for Visit: Patient Question [7524] Prescriptions as of 06/01/2024 - metroNIDAZOLE (FLAGYL) [...] Encounter Status:Closed by JOCELYN CANTRELL on 06/01/24 PROGRESS Observed: 05/25/2024 11:20 AM Status: COMPLETED Source: [facility] HNO ID: [id number] Author: DONIS CARIAS MD Service: ? Author Type: Physician Type: Progress Notes Filed: 05/25/2024 12:48 Note Text: COLORECTAL SURGERY CLINIC NOTE May 25, 2024 Piper Rodríguez 54 year old This consult was requested by Dr. Hedrick and my final recommendations will be communicated to the requesting health care provider by way of the shared medical record for internal providers or letter via the [employer] Service for external providers. Chief Complaint: [...] mass Colonoscopy 05/10/24 - Dr. Hedrick @ [employer] Scan on 05/16/2024 9:34 AM by Norma Magallanes: Seth Castro operative note (path pending) [id number] Pathology Scan on 05/22/2024 8:26 AM by Be Cloud: [facility] Pathology Report 05/11/24 COLON, Biopsy, Cecum: COLONIC TISSUE WITH INVASIVE ADENOCARCINOMA, MODERATELY DIFFERENTIATED, ULCERATION NOTED 2. COLON, Biopsy, Sigmoid: LARGE TUBULAR ADENOMA (>1 CM), NEGATIVE FOR HIGH GRADE DYSPLASIA, AREAS SHOWING CAUTERY ARTIFACT ARE POSITIVE FOR ADENOMATOUS GLANDS 3. COLON, Biopsy, Descending: TUBULAR ADENOMA. NEGATIVE FOR HIGH GRADE DYSPLASIA Colonoscopy 06/03/2018 - Dr Hedrick @ [employer] Scan on 05/15/2024 9:54 AM by Be [...] plan: moderate Donis Carias MD Colorectal Surgery CNOV Observed: 05/25/2024 11:20 AM Status: COMPLETED Source: [facility] Office Visit ([facility]) ANNEPIPER O ([id number]) 1970 M Date Time Provider Department 05/25/24 11:20 AM DONIS CARIAS [facility] During your visit today, we recorded the [...] for internal providers or letter via the [employer] Postal Service for external providers. Chief Complaint: [...] Colonoscopy 05/10/24 - Dr. Hedrick @ [facility] Scan on 05/16/2024 9:34 AM by Norma Magallanes: Seth Castro operative note (path pending) [id number] Pathology Scan on 05/22/2024 8:26 AM by Be Cloud: [facility] Pathology Report 05/11/24 COLON, Biopsy, Cecum: COLONIC TISSUE WITH INVASIVE ADENOCARCINOMA, MODERATELY DIFFERENTIATED, ULCERATION NOTED 2. COLON, Biopsy, Sigmoid: LARGE TUBULAR ADENOMA (>1 CM), NEGATIVE FOR HIGH GRADE DYSPLASIA, AREAS SHOWING CAUTERY ARTIFACT ARE POSITIVE FOR ADENOMATOUS GLANDS 3. COLON, Biopsy, Descending: TUBULAR ADENOMA. NEGATIVE FOR HIGH GRADE DYSPLASIA Colonoscopy 06/03/2018 - Dr Hedrick @ [facility] Scan on 05/15/2024 9:54 AM by Be [...] and/or results with patient and his , lias. Risk of morbidity, mortality and/or complications of treatment plan: yasmeen Carias MD Colorectal Surgery Referring Provider: JONE HEDRICK [[id number]] Allergies As of Date: 05/25/2024 (No Known Allergies) Date Reviewed: 05/25/2024 Reviewed by: Jessica Bass OCCA - Fully Assessed Reason for Visit: Colon Cancer [529] Primary Visit Diagnosis:Malignant neoplasm of ascending colon (HCC) [C18.2] Order(s):COMPLETE BLOOD COUNT AND DIFFERENTIAL [SQCBCDIF] Order #: [id number] FUTURE COMPREHENSIVE METABOLIC PANEL [SQCMP] Order #: [id number] FUTURE CARCINOEMBRYONIC ANTIGEN [SQCEA] Order #: [id number] FUTURE CT ABD/PEL W IVCON [[id number]] Order #: [id number] FUTURE CT CHEST W IVCON [[id number]] Order #: [id number] FUTURE iv contrast (will be provided with [...] Collected: 05/10/2024 10:35 AM Status: F Source: [facility] Order Comment: PATHOLOGY GI SPECIMEN TYPE CODE TESTS RESULT OUT OF RANGE REFERENCE UNITS LAB PATH TO [facility] Pathology Request for Lab Patrick Result Comment: See report. Scanned copy available in EMR. PERFORMED BY: [facility] [address] [place] [address] PATHOLOGIST [employer] REPRESENTATIVES GUNNAR WILSON M.D. Performed By: #### HUY TO Chandra MENCHACA #### [place] [id number] [facility] GENERAL SURGERY OFFICE/CLINI C NOTE Observed: 04/25/2024 10:58 AM Status: F Source: [facility] General Surgery Office/Clini c Note Chief Complaint [...] Observed: 04/25 10:51 AM Status: F Source: [facility] Ambulatory Visit Summary PIPER RODRÍGUEZ Marychuy :1970 [...] / CODE REACTION SEVERITY SOURCE 01/30/2025 Drug Allergy/3311140 02(SNOMED CT) No Known Allergies/[id number]( RXNORM) [facility] SYSTEMIC/695800 006(SNOMED CT) NO KNOWN ALLERGIES [facility] DR/216264434(SN OMED CT) No Known Allergies [facility] DR/829230629(SN OMED CT) No Known Medication Allergies [facility] Drug Class/487393488 (SNOMED CT) NO KNOWN ALLERGIES [facility] ENCOUNTERS ADMIT/DISCHARGE ACCOUNT NUMBER ADMITTING ENCOUNTER CLASS LOCATION SOURCE 02/20/2025/02/21/20 25 [id number] [facility] 02/02/2025/02/03/20 [id number] Devan Franklin [facility] 01/11/2025/01/12/20 25 [id number] [facility] 12/27/2024/12/28/19 25 [id number] Ambulatory [facility] : Procedure [facility] 10/24/2024/10/25/19 25 [id number] Ambulatory [facility]:CONOH C [facility] 09/27/2024/09/28/19 25 [id number] Ambulatory Building:[facility] 07/18/2024/07/18/19 25 [id number] Ambulatory [place]:[facility] : Procedure [facility] 07/07/2024/07/07/19 25 [id number] [facility]ulatory [facility]:C108 [facility] 07/05/2024/07/05/19 25 [id number] Ambulatory CD:[id number] 7Building:CD :[id number] [facility] 06/28/2024/06/28/19 25 [id number] Ambulatory [place]:[facility] : Procedure [facility] 06/28/2024/06/28/19 25 [id number] [facility] 06/21/2024/06/21/19 25 [id number] Ambulatory [place]:GS [place] [facility] 06/21/2024/06/23/19 25 [id number] DONIS CARIAS Inpatient Encounter [facility] ding:TM6ZQxc m: YS9VSod: 15 [facility] 06/14/2024/06/16/19 25 [id number] DONIS CARIAS Inpatient Encounter [facility] ding:GS3GLeg m: NA9GDmt: 31 [facility] 06/08/2024/06/08/19 25 [id number] [facility] 06/02/2024/01/10 [id number] [facility] 06/02/2024 [id number] Ambulatory [facility] ding:[facility] 06/02/2024 [id number] Ambulatory [facility] ding[facility] 05/25/2024/05/25/19 [id number] Ambulatory [facility] ding:FVCO [facility] 05/10/2024/05/10/20 24 [id number] [facility]one Hedrick [facility] 05/10/2024/05/10/20 24 [id number] Ambulatory CD:[id number] 7Building:CD :[id number] [facility] 04/25/2024/04/25/20 24 [id number] Ambulatory [facility]:[facility] : Procedure [facility] PAYERS ENCOUNTER GUARANTOR PAYER SUBSCRIBER SOURCE 02/20/2025 [address] [place] [address]Hvg: (HP) Primary Insurance:Self PayPolicy Number: Effective Date:2025-02-20 NOT GIVENUC Health 02/02/2025 [address] [place] [address]Oip: (HP) Primary Insurance:Self PayPolicy Number: Effective Date:2025-02-02 NOT GIVENUC Health 01/11/2025 Primary Insurance:MMO SUPERMED PPOPolicy Number: [id number] Date:4474-43-66Cgha Name:Jose HANSON: [id number] [place] [address] [facility] 12/27/2024 PIPER HANSON: [id number] [place] RDTel: ~~(41 (HP) Primary Insurance:MEDICAL MUTUALPolicy Number: [id number] Date:4926-97-97DZ [address] [place], [place] [address]WP: [facility]/2024 Primary Insurance:MMO SUPERMED PPOPolicy Number: [id number] Date:9831-95-38Jgnb Name:Jose BOSEB: [id number] [place] [address] [facility] 09/27/2024 Primary Insurance:MEDICAL MUTUALPolicy Number: [id number] Date:2023-11-22 LISA BOSEB: [id number] [place] [address] [facility] 07/18/2024 PIPER HANSON: [place] RDTel: ~~(41 (HP) Primary Insurance:MEDICAL MUTUALPolicy Number: [id number] Date:2195-15-20OL [place] [id number]: LISA [facility] 07/07/2024 Primary Insurance:MMO SUPERMED PPOPolicy Number: [id number] Date:5094-27-51Lvmr Name:Jose BOSEB: [id number] [place] [address] [facility] 07/05/2024 PIPER BOSEB: [place] RDTel: ~~(41 (HP) Primary Insurance:MEDICAL MUTUALPolicy Number: [id number] Date:3943-12-50TQ [address] [place], [place] [address]WP: LISA [facility] 06/28/2024 PIPER BOSEB: [place] RDTel: ~~(41 (HP) Primary Insurance:MEDICAL MUTUALPolicy Number: [id number] Date:0905-75-23IW [facility] [address], [place] [address]KQ: LISA [facility] 06/28/2024 Primary Insurance:MMO SUPERMED PPOPolicy Number: [id number] Date:8901-26-98Swqh Name:Jose RODRÍGUEZB: [id number] [place] [address] [facility] 06/21/2024 PIPER Perrin ZOLTANИВАН: [place] RDTel: ~~(27 (GU) Primary Insurance:MEDICAL MUTUALPolicy Number: [id number] Date:2293-62-86DE [facility] [address], [place] [address]HZ: [facility] 06/21/2024 Primary Insurance:MMO SUPERMED PPOPolicy Number: [id number] Date:7558-12-47Omnx Name:Jose RODRÍGUEZISABELA: [id number] [place] [address] [facility] 06/14/2024 Primary Insurance:MMO SUPERMED PPOPolicy Number: [id number] Date:7027-06-41Jxsf Name:Jose RODRÍGUEZB: [id number] [place] [address] [facility] 06/08/2024 Primary Insurance:MMO SUPERMED PPOPolicy Number: [id number] Date:1439-11-24Oguw Name:Jose RODRÍGUEZB: [id number] [place] [address] [facility] 06/02/2024 Primary Insurance:MMO SUPERMED PPOPolicy Number: [id number] Date:3296-71-91Dcaf Name:Jose RODRÍGUEZB: [id number] [place] [address] [facility] 06/02/2024 Primary Insurance:MMO SUPERMED PPOPolicy Number: [id number] Date:9924-62-81Xmpz Name:Jose HANSON: [id number] [place] [address] [facility] 06/02/2024 Primary Insurance:MMO SUPERMED PPOPolicy Number: [id number] Date:5925-88-25Kchl Name:Jose HANSON: [id number] [place] [address] [facility] 05/25/2024 Primary Insurance:MMO SUPERMED PPOPolicy Number: [id number] Date:2390-28-03Fenx Name:Jose HANSON: [id number] [place] [address] [facility] 05/10/2024 [address] [place] [address]Gfc: (HP) Primary Insurance:Self PayPolicy Number: Effective Date:2024-05-10 NOT GIVENUC Health 05/10/2024 PIPER BOSEB: [place] RDTel: ~~(41 (HP) Primary Insurance:MEDICAL MUTUALPolicy Number: [id number] Date:2843-64-57WG [id number] [place] [address]NK: [facility] 04/25/2024 PIPER BOSEB: [place] RDTel: ~~(41 (HP) Primary Insurance:MEDICAL MUTUALPolicy Number: [id number] Date:8352-97-62FL [address] [address]AD: [facility]
[2025-02-20 23:30] VITALS: BP 113/64; BP 91/58; PULSE 70; TEMP 36.8; O2SAT 97; BMI 35.4
[2025-02-21] VITALS (39 sets, daily range): BP systolic 97–134; BP diastolic 45–79; PULSE 66–89; TEMP 36.3–37.1; O2SAT 93–99; BMI 35.0
--- NOTE | 2025-02-21 00:05 | ED.GENADUL1 ---
Documented by User: Devan Franklin MD 02/21/25 19:42 HPI HPI - General Adult General Chief complaint: Recheck/Abnormal Lab/Rx Stated complaint: ABNORMAL LABS Time Seen by Provider: 02/20/25 23:27 Source: patient Mode of arrival: walk-in Limitations: no limitations History of Present Illness HPI narrative: history of stage III colon CA. he is on Xeloda oral chemo treatment. Did have partial colectomy earlier. past admissions for neurogenic fever. Was seen here 02/02/25 and found to have UTI. treated with levaquin and states no fever while on the antibiotics. Fever did return and he was seen by his PCP and prescribed another antibotic for UTI. Fever continues. seen by his oncologist this AM and blood cultures ordered and returned positive. Patient called and advised to come to the ER. States right now he feels well. no abdominal pain, cough, headache. states when he does get a fever he also has shaking rigor like chills Related Data Home Medications ?Medication ?Instructions ?Recorded ?Confirmed azilsartan medoxomil 80 mg tablet 80 mg PO DAILY 07/27/23 02/02/25 (Edarbi) ibuprofen 200 mg capsule 400 mg PO Q8H 02/02/25 02/21/25 amoxicillin 875 mg-potassium 1 tab PO BID 02/21/25 02/21/25 clavulanate 125 mg tablet capecitabine 500 mg tablet 1,000 mg PO BID 02/21/25 02/21/25 Allergies Allergy/AdvReac Type Severity Reaction Status Date / Time No Known Drug Allergies Allergy Verified 02/02/25 20:58 Opioid HPI Opioid Management Most Recent Opioid Data: Last Pain Scale 3 05/10/24, 09:15 Last Pain Assessment Today, 09:00 Last ORT Total Score 3 Today, 08:43 Last ORT Risk Category Low Risk Today, 08:43 Review of Systems ROS Status of ROS 10 or more systems reviewed and unremarkable except as noted in history and below [facility] Medical History (Updated 02/21/25 @ 12:05 by Bob Dawson MD) Arthritis ?M19.90 - Unspecified osteoarthritis, unspecified site (ICD-10) Asthma ?J45.909 - Unspecified asthma, uncomplicated (ICD-10) Wound dehiscence (~06/17/24) ?T81.30XA - Disruption of wound, unspecified, initial encounter (ICD-10) Seasonal allergies ?J30.2 - Other seasonal allergic rhinitis (ICD-10) Hyponatremia ?E87.1 - Hypo-osmolality and hyponatremia (ICD-10) Atypical chest pain ?R07.89 - Other chest pain (ICD-10) Sleep apnea ?G47.30 - Sleep apnea, unspecified (ICD-10) Pancytopenia ?D61.818 - Other pancytopenia (ICD-10) Periumbilical abdominal pain ?R10.33 - Periumbilical pain (ICD-10) Intestinal malabsorption ?K90.9 - Intestinal malabsorption, unspecified (ICD-10) Neutropenic fever ?D70.9 - Neutropenia, unspecified (ICD-10) ?R50.81 - Fever presenting with conditions classified elsewhere (ICD-10) Hyperlipemia ?E78.5 - Hyperlipidemia, unspecified (ICD-10) Hypertension ?I10 - Essential (primary) hypertension (ICD-10) Surgical History H/O abdominal surgery (06/21/24) ?Z98.890 - Other specified postprocedural states (ICD-10) H/O colectomy (06/14/24) ?Z90.49 - Acquired absence of other specified parts of digestive tract (ICD-10) History of esophagogastroduodenoscopy (EGD) (05/10/24) ?Z98.890 - Other specified postprocedural states (ICD-10) H/O colonoscopy (05/10/24) ?Z98.890 - Other specified postprocedural states (ICD-10) Hx of colonoscopy ?Z98.890 - Other specified postprocedural states (ICD-10) History of hip replacement ?Z96.649 - Presence of unspecified artificial hip joint (ICD-10) Family History (Updated 05/04/24 @ 13:25 by Sabiha Marie) Grandmother Family history of stroke Mother Anal cancer Other Family history of bone cancer Family history of prostate cancer Social History (Updated 07/05/24 @ 11:15 by Marcy Phan) Within the past year, how often did you have a drink containing alcohol: monthly or less Within the past year, how many standard drinks containing alcohol did you have on a typical day: 1 or 2 Within the past year, how often did you have six or more drinks on one occasion: never Total score: 0 Score interpretation: A score less than 4 is consistent with normal alcohol consumption. 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[employer] Known occupational exposures/hazards: No Highest level of school completed/degree received: high school graduate Are you now , , , , never or living with a partner: In a typical week, how many times do you talk on the telephone with family, friends, or neighbors: 3 or more times per week How often do you get together with friends or relatives: 3 or more times per week How often do you attend cheondoism or samaritan services: never Do you belong to any clubs or organizations such as cheondoism groups unions, [employer] or athletic groups, or school groups: no Total score: 2 Score interpretation: A score of greater than or equal to 2 indicates the lowest level of social isolation. Little interest or pleasure in doing things: not at all Feeling down, depressed, or hopeless: not at all Feel stressed/tense/nervous/anxious/difficulty sleeping: not at all Due to disability, difficulty making decisions: No Do you think of yourself as: straight/heterosexual Gender Identity: male Exam Constitutional Vital Signs, click to edit/add: Last Vital Signs Temp 98 F 02/21/25 15:43 Pulse 79 02/21/25 15:43 Resp 20 02/21/25 15:43 BP 134/73 02/21/25 15:43 Pulse Ox 96 02/21/25 15:43 O2 Del Method Room Air 02/21/25 15:43 Common normals: no apparent distress, average body habitus, oriented x3, no limitations, healthy appearing, alert and well nourished [facility] Common normals: normocephalic and head/scalp atraumatic Eye Common normals: EOMs intact bilaterally and conjunctivae normal Respiratory Common normals: normal respiratory effort, no retractions, no use of accessory muscles and clear to auscultation bilaterally Cardio Common normals: regular rate, regular rhythm, S1 normal heart sound and S2 normal heart sound GI Common normals: Normal to inspection, nondistended, normoactive bowel sounds present, soft to palpation and non-tender Extremity Common normals: normal to inspection and full ROM Neuro Common normals: oriented x3, CN's II-XII intact bilaterally and moves all extremities Psych Appearance: grossly normal Course Vital Signs Vital signs: Vital Signs Temperature 98.3 F 02/20/25 23:30 Pulse Rate 70 02/20/25 23:30 Respiratory Rate 18 02/20/25 23:30 Blood Pressure 91/58 02/20/25 23:30 Pulse Oximetry 97 02/20/25 23:30 Oxygen Delivery Method Room Air 02/20/25 23:30 Temperature 98 F 02/21/25 15:43 Pulse Rate 79 02/21/25 15:43 Respiratory Rate 20 02/21/25 15:43 Blood Pressure 134/73 02/21/25 15:43 Pulse Oximetry 96 02/21/25 15:43 Oxygen Delivery Method Room Air 02/21/25 15:43 Medical Decision Making MDM Narrative Medical decision making narrative: patient has stage III colon CA s/p partial colectomy and is currently on oral Xeloda chemo treatment. has been experiencing recurrent episodes of fever and chills. Was seen 02/02 for complaint of fever and chills and UA was positive. He was treated with Levaquin and states while on the antibiotic he did not have a fever. His urine cx from that visit however returned neg growth. He now presents after positive blood cultures. Positive for enterobacterales and kebsiella aerogenes. Both aerobic and anaerobic bottles positive. Patient does have a port in his right chest. Given dose of Vanco and Zosyn. Discussed with oncologist Dr Esteves who recommends in patient IV antibiotics due to bacteremia and the presence of his port. Hospitalist paged discussed with Hospitalist and he would like a CT abd before he accepts the admission Lab Data Labs: Lab Results 02/21/25 02/21/25 02/21/25 Range/Units 00:22 00:34 02:36 WBC 12.4 H (4.0-11.0) 10^3/uL RBC 3.42 L (4.70-6.10) 10^6/uL Hgb 11.1 L (14.0-18.0) g/dL Hct 33.4 L (42.0-54.0) % MCV 97.7 H (80.0-94.0) fL MCH 32.5 (25.9-34.0) pg MCHC 33.2 (29.9-35.2) g/dL RDW 13.9 (11.0-15.0) % Plt Count 168 (150-450) 10^3/uL MPV 10.5 (9.5-13.5) fL Seg Neuts % (Manual) 79.0 H (43.0-75.0) Lymphocytes % (Manual) 5.0 L (20.5-60.0) % Atypical Lymphs % (Man) 3.0 % Monocytes % (Manual) 9.0 (1.7-12.0) % Eosinophils % (Manual) 3.0 (0.9-7.0) % Basophils % (Manual) 1.0 (0.2-2.0) % Neutrophils # (Manual) 9.79 H (1.4-6.5) 10^3/uL Lymphocytes # (Manual) 0.62 L (1.20-3.80) 10^3/uL Abs Atypical Lymphs Man 0.37 Monocytes # (Manual) 1.11 H (0.30-0.80) 10^3/uL Eosinophils # (Manual) 0.37 (0.00-0.70) 10^3/uL Basophils # (Manual) 0.12 H (0.00-0.10) 10^3/uL Sodium 134 L (136-145) mmol/L Potassium 4.0 (3.5-5.1) mmol/L Chloride 99 (98-107) mmol/L Carbon Dioxide 25.9 (21.0-32.0) mmol/L Anion Gap 13.1 BUN 14.0 (7.0-18.0) mg/dL Creatinine 1.32 H (0.70-1.30) mg/dL Est GFR ( Amer) >60 (>=60 mL/min/1.73m^2) Est GFR (Non-Af Amer) 57 L (>=60 mL/min/1.73m^2) BUN/Creatinine Ratio 10.6 Glucose 113 H (74-106) mg/dL Lactate 1.6 (0.4-2.0) mmol/L Calcium 8.7 (8.5-10.1) mg/dL Total Bilirubin 1.0 (0.2-1.0) mg/dL AST 19 (15-37) U/L ALT 30 (16-63) U/L Alkaline Phosphatase 109 (46-116) U/L Total Protein 7.8 (6.4-8.2) g/dL Albumin 2.8 L (3.4-5.0) g/dL Globulin 5.0 g/dL Albumin/Globulin Ratio 0.6 Urine Color Yellow (YELLOW) Urine Clarity Clear (CLEAR) Urine pH 5.5 (5.0-9.0) Ur Specific Eleele <=1.005 A (1.005-1.025) Urine Protein Negative (NEG/TRACE) mg/dL Urine Glucose (UA) Negative (NEGATIVE) mg/dL Urine Ketones Negative (NEGATIVE) mg/dL Urine Occult Blood Trace-i (NEGATIVE) Urine Nitrite Negative (NEGATIVE) Urine Bilirubin Negative (NEGATIVE) Urine Urobilinogen 0.2 (0.2-1.0) EU/dL Ur Leukocyte Esterase Negative (NEGATIVE) Urine RBC None seen (0-2) #/HPF Urine WBC 5-10 A (NONE SEEN) #/HPF Ur Squamous Epith Cells None seen (NONE/RARE) #/LPF Urine Crystals None seen (None Seen) #/HPF Urine Bacteria Trace A (NONE SEEN) #/HPF Urine Casts None seen (NONE SEEN) #/LPF Urine Mucus None seen (NONE SEEN) Ur Culture Indicated? Yes-[facility] [place] Influenza Type A Ag Negative Influenza Type B Ag Negative SARS-CoV-2 Ag (CV2AG) Negative (NEGATIVE) Discharge Plan Discharge Chief Complaint: Recheck/Abnormal Lab/Rx Clinical Impression: Bacteremia, Cavitary lesion of lung Patient Disposition: Admitted As Inpatient Time of Disposition Decision: 07:24 Discharge Date/Time: 02/21/25 08:30 Documented by User: Ning Chow MD 02/21/25 07:25 HPI HPI - General Adult General Chief complaint: Recheck/Abnormal Lab/Rx Stated complaint: ABNORMAL LABS Time Seen by Provider: 02/20/25 23:27 Related Data Home Medications ?Medication ?Instructions ?Recorded ?Confirmed azilsartan medoxomil 80 mg tablet 80 mg PO DAILY 07/27/23 02/02/25 (Edarbi) ibuprofen 200 mg capsule 400 mg PO Q8H 02/02/25 02/21/25 amoxicillin 875 mg-potassium 1 tab PO BID 02/21/25 02/21/25 clavulanate 125 mg tablet capecitabine 500 mg tablet 1,000 mg PO BID 02/21/25 02/21/25 Allergies Allergy/AdvReac Type Severity Reaction Status Date / Time No Known Drug Allergies Allergy Verified 02/02/25 20:58 Opioid HPI Opioid Management Most Recent Opioid Data: Last Pain Scale 3 05/10/24, 09:15 Last Pain Assessment Today, 09:00 Last ORT Total Score 3 Today, 08:43 Last ORT Risk Category Low Risk Today, 08:43 PFSH PFS Medical History (Updated 02/21/25 @ 12:05 by Bob Dawson MD) Arthritis ?M19.90 - Unspecified osteoarthritis, unspecified site (ICD-10) Asthma ?J45.909 - Unspecified asthma, uncomplicated (ICD-10) Wound dehiscence (~06/17/24) ?T81.30XA - Disruption of wound, unspecified, initial encounter (ICD-10) Seasonal allergies ?J30.2 - Other seasonal allergic rhinitis (ICD-10) Hyponatremia ?E87.1 - Hypo-osmolality and hyponatremia (ICD-10) Atypical chest pain ?R07.89 - Other chest pain (ICD-10) Sleep apnea ?G47.30 - Sleep apnea, unspecified (ICD-10) Pancytopenia ?D61.818 - Other pancytopenia (ICD-10) Periumbilical abdominal pain ?R10.33 - Periumbilical pain (ICD-10) Intestinal malabsorption ?K90.9 - Intestinal malabsorption, unspecified (ICD-10) Neutropenic fever ?D70.9 - Neutropenia, unspecified (ICD-10) ?R50.81 - Fever presenting with conditions classified elsewhere (ICD-10) Hyperlipemia ?E78.5 - Hyperlipidemia, unspecified (ICD-10) Hypertension ?I10 - Essential (primary) hypertension (ICD-10) Surgical History H/O abdominal surgery (06/21/24) ?Z98.890 - Other specified postprocedural states (ICD-10) H/O colectomy (06/14/24) ?Z90.49 - Acquired absence of other specified parts of digestive tract (ICD-10) History of esophagogastroduodenoscopy (EGD) (05/10/24) ?Z98.890 - Other specified postprocedural states (ICD-10) H/O colonoscopy (05/10/24) ?Z98.890 - Other specified postprocedural states (ICD-10) Hx of colonoscopy ?Z98.890 - Other specified postprocedural states (ICD-10) History of hip replacement ?Z96.649 - Presence of unspecified artificial hip joint (ICD-10) Family History (Updated 05/04/24 @ 13:25 by Sabiha Marie) Grandmother Family history of stroke Mother Anal cancer Other Family history of bone cancer Family history of prostate cancer Social History (Updated 07/05/24 @ 11:15 by Marcy Phan) Within the past year, how often did you have a drink containing alcohol: monthly or less Within the past year, how many standard drinks containing alcohol did you have on a typical day: 1 or 2 Within the past year, how often did you have six or more drinks on one occasion: never Total score: 0 Score interpretation: A score less than 4 is consistent with normal alcohol consumption. 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[employer] Known occupational exposures/hazards: No Highest level of school completed/degree received: high school graduate Are you now , , , , never or living with a partner: In a typical week, how many times do you talk on the telephone with family, friends, or neighbors: 3 or more times per week How often do you get together with friends or relatives: 3 or more times per week How often do you attend cheondoism or samaritan services: never Do you belong to any clubs or organizations such as cheondoism groups unions, fraternal or athletic groups, or school groups: no Total score: 2 Score interpretation: A score of greater than or equal to 2 indicates the lowest level of social isolation. Little interest or pleasure in doing things: not at all Feeling down, depressed, or hopeless: not at all Feel stressed/tense/nervous/anxious/difficulty sleeping: not at all Due to disability, difficulty making decisions: No Do you think of yourself as: straight/heterosexual Gender Identity: male Exam Constitutional Vital Signs, click to edit/add: Last Vital Signs Temp 98 F 02/21/25 15:43 Pulse 79 02/21/25 15:43 Resp 20 02/21/25 15:43 BP 134/73 02/21/25 15:43 Pulse Ox 96 02/21/25 15:43 O2 Del Method Room Air 02/21/25 15:43 Course Vital Signs Vital signs: Vital Signs Temperature 98.3 F 02/20/25 23:30 Pulse Rate 70 02/20/25 23:30 Respiratory Rate 18 02/20/25 23:30 Blood Pressure 91/58 02/20/25 23:30 Pulse Oximetry 97 02/20/25 23:30 Oxygen Delivery Method Room Air 02/20/25 23:30 Temperature 98 F 02/21/25 15:43 Pulse Rate 79 02/21/25 15:43 Respiratory Rate 20 02/21/25 15:43 Blood Pressure 134/73 02/21/25 15:43 Pulse Oximetry 96 02/21/25 15:43 Oxygen Delivery Method Room Air 02/21/25 15:43 Medical Decision Making [facility] Narrative Medical decision making narrative: patient has stage III colon CA s/p partial colectomy and is currently on oral Xeloda chemo treatment. has been experiencing recurrent episodes of fever and chills. Was seen 02/02 for complaint of fever and chills and UA was positive. He was treated with Levaquin and states while on the antibiotic he did not have a fever. His urine cx from that visit however returned neg growth. He now presents after positive blood cultures. Positive for enterobacterales and kebsiella aerogenes. Both aerobic and anaerobic bottles positive. Patient does have a port in his right chest. Given dose of Vanco and Zosyn. Discussed with oncologist Dr Esteves who recommends in patient IV antibiotics due to bacteremia and the presence of his port. Hospitalist paged discussed with Hospitalist and he would like a CT abd before he accepts the admission Dr Chow : The patient care transferred to ca at 7 AM CAT scan of the abdomen pelvis showed no acute pathology in the abdomen but the patient have pulm nodules with index cavitating lesion in the right middle lobe measuring 2 x 1.1 cm which mostly the source of infection The patient case discussed with and he agreed to admit the patient Clinical impression; Bacteremia Cavitary lung nodule Lab Data Labs: Lab Results 02/21/25 02/21/25 02/21/25 Range/Units 00:22 00:34 02:36 WBC 12.4 H (4.0-11.0) 10^3/uL RBC 3.42 L (4.70-6.10) 10^6/uL Hgb 11.1 L (14.0-18.0) g/dL Hct 33.4 L (42.0-54.0) % MCV 97.7 H (80.0-94.0) fL MCH 32.5 (25.9-34.0) pg MCHC 33.2 (29.9-35.2) g/dL RDW 13.9 (11.0-15.0) % Plt Count 168 (150-450) 10^3/uL MPV 10.5 (9.5-13.5) fL Seg Neuts % (Manual) 79.0 H (43.0-75.0) Lymphocytes % (Manual) 5.0 L (20.5-60.0) % Atypical Lymphs % (Man) 3.0 % Monocytes % (Manual) 9.0 (1.7-12.0) % Eosinophils % (Manual) 3.0 (0.9-7.0) % Basophils % (Manual) 1.0 (0.2-2.0) % Neutrophils # (Manual) 9.79 H (1.4-6.5) 10^3/uL Lymphocytes # (Manual) 0.62 L (1.20-3.80) 10^3/uL Abs Atypical Lymphs Man 0.37 Monocytes # (Manual) 1.11 H (0.30-0.80) 10^3/uL Eosinophils # (Manual) 0.37 (0.00-0.70) 10^3/uL Basophils # (Manual) 0.12 H (0.00-0.10) 10^3/uL Sodium 134 L (136-145) mmol/L Potassium 4.0 (3.5-5.1) mmol/L Chloride 99 (98-107) mmol/L Carbon Dioxide 25.9 (21.0-32.0) mmol/L Anion Gap 13.1 BUN 14.0 (7.0-18.0) mg/dL Creatinine 1.32 H (0.70-1.30) mg/dL Est GFR ( Amer) >60 (>=60 mL/min/1.73m^2) Est GFR (Non-Af Amer) 57 L (>=60 mL/min/1.73m^2) BUN/Creatinine Ratio 10.6 Glucose 113 H (74-106) mg/dL Lactate 1.6 (0.4-2.0) mmol/L Calcium 8.7 (8.5-10.1) mg/dL Total Bilirubin 1.0 (0.2-1.0) mg/dL AST 19 (15-37) U/L ALT 30 (16-63) U/L Alkaline Phosphatase 109 (46-116) U/L Total Protein 7.8 (6.4-8.2) g/dL Albumin 2.8 L (3.4-5.0) g/dL Globulin 5.0 g/dL Albumin/Globulin Ratio 0.6 Urine Color Yellow (YELLOW) Urine Clarity Clear (CLEAR) Urine pH 5.5 (5.0-9.0) Ur Specific Eleele <=1.005 A (1.005-1.025) Urine Protein Negative (NEG/TRACE) mg/dL Urine Glucose (UA) Negative (NEGATIVE) mg/dL Urine Ketones Negative (NEGATIVE) mg/dL Urine Occult Blood Trace-i (NEGATIVE) Urine Nitrite Negative (NEGATIVE) Urine Bilirubin Negative (NEGATIVE) Urine Urobilinogen 0.2 (0.2-1.0) EU/dL Ur Leukocyte Esterase Negative (NEGATIVE) Urine RBC None seen (0-2) #/HPF Urine WBC 5-10 A (NONE SEEN) #/HPF Ur Squamous Epith Cells None seen (NONE/RARE) #/LPF Urine Crystals None seen (None Seen) #/HPF Urine Bacteria Trace A (NONE SEEN) #/HPF Urine Casts None seen (NONE SEEN) #/LPF Urine Mucus None seen (NONE SEEN) Ur Culture Indicated? Yes-[facility] [place] Influenza Type A Ag Negative Influenza Type B Ag Negative SARS-CoV-2 Ag (CV2AG) Negative (NEGATIVE) Discharge Plan Discharge Chief Complaint: Recheck/Abnormal Lab/Rx Clinical Impression: Bacteremia, Cavitary lesion of lung Patient Disposition: Admitted As Inpatient Time of Disposition Decision: 07:24 Discharge Date/Time: 02/21/25 08:30
[2025-02-21] MEDS: 0.9 % SODIUM CHLORIDE 1,000 ML 999 ML IV (00:44)
[2025-02-21 00:53] LABS: Hematocrit 33.4 % (42.0-54.0); Hemoglobin 11.1 g/dL (14.0-18.0); Mean Corpuscular HGB Conc 33.2 g/dL (29.9-35.2); Mean Corpuscular Hemoglobin 32.5 pg (25.9-34.0); Mean Corpuscular Volume 97.7 fL (80.0-94.0); Platelet Count 168 10^3/uL (150-450); Red Blood Count 3.42 10^6/uL (4.70-6.10); White Blood Count 12.4 10^3/uL (4.0-11.0)
[2025-02-21 01:05] LABS: SARS-CoV-2 Ag NEGATIVE (NEGATIVE)
[2025-02-21 01:08] LABS: Alanine Aminotransferase 30 U/L (16-63); Albumin Globulin Ratio 0.6; Albumin Level 2.8 g/dL (3.4-5.0); Alkaline Phosphatase 109 U/L (46-116); Anion Gap 13.1; Aspartate Amino Transferase 19 U/L (15-37); Blood Urea Nitrogen 14.0 mg/dL (7.0-18.0); Calcium 8.7 mg/dL (8.5-10.1); Carbon Dioxide 25.9 mmol/L (21.0-32.0); Chloride 99 mmol/L (98-107); Estimated GFR (African America >60 (>=60 mL/min/1.73m^2); Estimated GFR (Non-African Ame 57 (>=60 mL/min/1.73m^2); Globulin 5.0 g/dL; Glucose 113 mg/dL (74-106); Potassium 4.0 mmol/L (3.5-5.1); Sodium 134 mmol/L (136-145); Total Protein 7.8 g/dL (6.4-8.2)
[2025-02-21 01:11] LABS: Lactate/Lactic Acid 1.6 mmol/L (0.4-2.0)
[2025-02-21 01:16] LABS: Segmented Neut Absolute Manual 9.79 10^3/uL (1.4-6.5); Segmented Neutrophils % Manual 79.0 (43.0-75.0)
[2025-02-21 01:17] LABS: Atypical Lymphocytes % Manual 3.0 %; Atypical Lymphocytes Abs Man 0.37; Basophils Abs Manual 0.12 10^3/uL (0.00-0.10); Basophils Percent Manual 1.0 % (0.2-2.0); Eosinophils Absolute Manual 0.37 10^3/uL (0.00-0.70); Eosinophils Percent Manual 3.0 % (0.9-7.0); Lymphocytes Absolute Manual 0.62 10^3/uL (1.20-3.80); Lymphocytes Percent Manual 5.0 % (20.5-60.0); Monocytes Absolute Manual 1.11 10^3/uL (0.30-0.80); Monocytes Percent Manual 9.0 % (1.7-12.0)
[2025-02-21 02:44] LABS: Glucose Urine UA NEGATIVE (NEGATIVE)
[2025-02-21 02:54] LABS: Cast Seen? NONE SEEN #/LPF (NONE SEEN); Crystals Seen? None Seen #/HPF (None Seen); Urine Culture Indicated YES-FRMC
--- NOTE | 2025-02-21 03:07 | PC.NURSE ---
The rounding note at 0302 was intended for a different pt. This note is a clerical error.
[2025-02-21] MEDS: PIPERACILLIN SODIUM/TAZOBACTAM 3.375 GM in 0.9 % SODIUM CHLORIDE 50 ML IV (03:12)
[2025-02-21] MEDS: VANCOMYCIN HCL 1,000 MG in 0.9 % SODIUM CHLORIDE 250 ML 250 MG IV (03:51)
--- NOTE | 2025-02-21 04:09 | PC.NURSE ---
this patient updated that the accepting dr would like you to have a ct and wait for the results to come back before you go upstairs. so told this he will remain in the ER dept until morning
--- NOTE | 2025-02-21 10:30 | CM.NOTE ---
Spoke with Dr. Dawson regarding pt's status, pt will be inpatient status.
[2025-02-21] MEDS: 0.9 % SODIUM CHLORIDE 1,000 ML 100 ML IV ×2 (11:43→21:58)
[2025-02-21] MEDS: ENOXAPARIN SODIUM 40 MG/0.4 ML SYRINGE SUBQ (11:43)
[2025-02-21] MEDS: ERTAPENEM SODIUM 1 GM in 0.9 % SODIUM CHLORIDE 50 ML IV (11:43)
--- NOTE | 2025-02-21 12:00 | CT_ITS ---
The [address] [address] Patient Name: PIPER RODRÍGUEZ MRN: [id number] date: 1970 Sex: M Assigned Patient Location: Current Patient Location: Accession/Order Number: [id number] Exam Date: 02/21/2025 23:59 Report Date: 02/22/2025 10:44 At the request of: CINDY DARBY MD Procedure: CT chest w con CT CHEST WITH INTRAVENOUS CONTRAST: CLINICAL HISTORY: bactremia,cavity on CtA/P. Hx colon CA ? Mets COMPARISON: 01/12/[address] abdomen 02/21/2025 TECHNIQUE: Spiral images were obtained through the chest following intravenous administration of 100 mL of Omnipaque 300. Images were reviewed using both narrow and wide window settings. This CT exam was performed using one or more following dose reduction techniques: Automated exposure control, adjustment of the mA and/or kV according to patient size, or use of iterative reconstruction technique. There is a right-sided [id number] catheter. The heart is top normal in size. No pericardial effusion is present. No aortic aneurysm or dissection is seen. There are tiny nonpathologic mediastinal lymph nodes. There are similar nonpathologic mediastinal and hilar lymph nodes. Minor gynecomastia is seen. There are tiny endplate spurs. A small intrapulmonary lymph node is again visualized on the right. There are multiple developing irregular nodular opacities on both sides, new since the comparison chest CT. These correlate with the recent abdominal CT. The largest is at the right middle lobe measuring approximately 2.3 cm in size. This may have minimal cavitation. There is also a small nodule within the right lower lobe adjacent to the hemidiaphragm that also appears cavitary. There is no pleural effusion or pneumothorax. Limited imaging through the upper abdomen shows anastomotic suture at the hepatic flexure. CT/CT chest w con IMPRESSION: THE FOCAL IRREGULAR OPACITIES, SOME WITH CAVITATION THAT ARE NEW SINCE DECEMBER 2024. THESE ARE PROBABLY INFECTIOUS OR INFLAMMATORY HOWEVER FOLLOW-UP TO RESOLUTION IS RECOMMENDED. Impression dictated by: Zeynep Mccoy M.D. 02/22/2025 10:44 AM Dictation Location: [place] [address] Electronically authenticated by: [id number] Y Date: 02/22/2025 10:44
--- NOTE | 2025-02-21 12:02 | PM.HP ---
HPI H&P: HPI History of Present Illness Chief complaint: ABNORMAL LABS, CAVITARY LUNG LESION BACTEREMIA Narrative: Mr. Martinez is a 55-year-old gentleman with a history of colon cancer status post colectomy, probable mets. Patient had received chemotherapy followed by oral immunotherapy. Patient has been having fever and chills over the last several weeks. He visited the emergency room and was diagnosed having UTI. He was discharged home on Levaquin. Fever and chills had resolved however it came back. He visited his primary care doctor who discharged him on amoxicillin or Augmentin. Patient unfortunately continues to have fever and chills. He visited his oncologist Dr. Esteves who ordered blood culture. That came back positive for Klebsiella. Patient was instructed to come to the emergency room. Patient denies any chest pain or palpitation. No abdominal pain. No diarrhea. No vomiting. No urinary symptoms. No skin infection. Opioid HPI Opioid Management Most Recent Pain and Opioid Data: Last Pain Scale 3 05/10/24, 09:15 Last Pain Assessment Today, 09:00 Last ORT Total Score 3 Today, 08:43 Last ORT Risk Category Low Risk Today, 08:43 Review of Systems ROS Status of ROS 10 or more systems reviewed and unremarkable except as noted in history and below [facility] Medical History (Updated 02/21/25 @ 12:05 by Bob Dawson MD) Arthritis ?M19.90 - Unspecified osteoarthritis, unspecified site (ICD-10) Asthma ?J45.909 - Unspecified asthma, uncomplicated (ICD-10) Wound dehiscence (~06/17/24) ?T81.30XA - Disruption of wound, unspecified, initial encounter (ICD-10) Seasonal allergies ?J30.2 - Other seasonal allergic rhinitis (ICD-10) Hyponatremia ?E87.1 - Hypo-osmolality and hyponatremia (ICD-10) Atypical chest pain ?R07.89 - Other chest pain (ICD-10) Sleep apnea ?G47.30 - Sleep apnea, unspecified (ICD-10) Pancytopenia ?D61.818 - Other pancytopenia (ICD-10) Periumbilical abdominal pain ?R10.33 - Periumbilical pain (ICD-10) Intestinal malabsorption ?K90.9 - Intestinal malabsorption, unspecified (ICD-10) Neutropenic fever ?D70.9 - Neutropenia, unspecified (ICD-10) ?R50.81 - Fever presenting with conditions classified elsewhere (ICD-10) Hyperlipemia ?E78.5 - Hyperlipidemia, unspecified (ICD-10) Hypertension ?I10 - Essential (primary) hypertension (ICD-10) Surgical History H/O abdominal surgery (06/21/24) ?Z98.890 - Other specified postprocedural states (ICD-10) H/O colectomy (06/14/24) ?Z90.49 - Acquired absence of other specified parts of digestive tract (ICD-10) History of esophagogastroduodenoscopy (EGD) (05/10/24) ?Z98.890 - Other specified postprocedural states (ICD-10) H/O colonoscopy (05/10/24) ?Z98.890 - Other specified postprocedural states (ICD-10) Hx of colonoscopy ?Z98.890 - Other specified postprocedural states (ICD-10) History of hip replacement ?Z96.649 - Presence of unspecified artificial hip joint (ICD-10) Family History (Updated 05/04/24 @ 13:25 by Sabiha Marie) Grandmother Family history of stroke Mother Anal cancer Other Family history of bone cancer Family history of prostate cancer Social History (Updated 07/05/24 @ 11:15 by Marcy Phan) Within the past year, how often did you have a drink containing alcohol: monthly or less Within the past year, how many standard drinks containing alcohol did you have on a typical day: 1 or 2 Within the past year, how often did you have six or more drinks on one occasion: never Total score: 0 Score interpretation: A score less than 4 is consistent with normal alcohol consumption. 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 Known occupational exposures/hazards: No Highest level of school completed/degree received: high school graduate Are you now , , , , never or living with a partner: In a typical week, how many times do you talk on the telephone with family, friends, or neighbors: 3 or more times per week How often do you get together with friends or relatives: 3 or more times per week How often do you attend sabianism or oriental orthodox services: never Do you belong to any clubs or organizations such as sabianism groups unions, fraternal or athletic groups, or school groups: no Total score: 2 Score interpretation: A score of greater than or equal to 2 indicates the lowest level of social isolation. Little interest or pleasure in doing things: not at all Feeling down, depressed, or hopeless: not at all Feel stressed/tense/nervous/anxious/difficulty sleeping: not at all Due to disability, difficulty making decisions: No Do you think of yourself as: straight/heterosexual Gender Identity: male Meds Home Medications and Allergies Home Medications ?Medication ?Instructions ?Recorded ?Confirmed ?Type azilsartan medoxomil 80 mg tablet 80 mg PO DAILY 07/27/23 02/02/25 History (Edarbi) ibuprofen 200 mg capsule 400 mg PO Q8H 02/02/25 02/21/25 History amoxicillin 875 mg-potassium 1 tab PO BID 02/21/25 02/21/25 History clavulanate 125 mg tablet capecitabine 500 mg tablet 1,000 mg PO BID 02/21/25 02/21/25 History Allergies Allergy/AdvReac Type Severity Reaction Status Date / Time No Known Drug Allergies Allergy Verified 02/02/25 20:58 Exam Narrative Exam Narrative: [pt is awake and alert. oriented to place, time and person HEENT: [place] conjunctiva and NL buccal mucosa Neck: Supple, no tenderness Endocrine: No Thyromegaly. Vascular: No JVD or carotid bruit. Lymphatic: No cervical lymphadenopathy. Chest: CTA no DTP. Heart RRR, no extra sound or murmur. Abd: Soft, no tenderness, no rebound and no rigidity. Increase abd girth therefore clinically I could not exclude the possibility of intra abd mass or organomegaly. Scar in the abdomen consistent with previous colectomy. LE: No cyanosis or clubbing, no varices or edema. Neuro: A A O. Nl speech, comprehension and attention. Nl and symetrical motor and tone examination through out. []] Constitutional Vital Signs, click to edit/add: Last Vital Signs Temp 97.6 F 02/21/25 11:53 Pulse 69 10/01/25 11:53 Resp 20 02/21/25 11:53 BP 118/71 02/21/25 11:53 Pulse Ox 97 02/21/25 11:53 O2 Del Method Room Air 02/21/25 11:53 Results Labs Labs: Short CBC 02/21/25 Range/Units 00:34 WBC 12.4 H (4.0-11.0) 10^3/uL Hgb 11.1 L (14.0-18.0) g/dL Hct 33.4 L (42.0-54.0) % Plt Count 168 (150-450) 10^3/uL BMP 02/21/25 00:34 Sodium 134 L Potassium 4.0 Chloride 99 Carbon Dioxide 25.9 BUN 14.0 Creatinine 1.32 H Glucose 113 H Calcium 8.7 Liver Function 02/21/25 Range/Units 00:34 Total Bilirubin 1.0 (0.2-1.0) mg/dL AST 19 (15-37) U/L ALT 30 (16-63) U/L Alkaline Phosphatase 109 (46-116) U/L Albumin 2.8 L (3.4-5.0) g/dL Urine 02/21/25 Range/Units 02:36 Urine Color Yellow (YELLOW) Urine Clarity Clear (CLEAR) Urine pH 5.5 (5.0-9.0) Ur Specific [place] <=1.005 A (1.005-1.025) Urine Protein Negative (NEG/TRACE) mg/dL Urine Glucose (UA) Negative (NEGATIVE) mg/dL Assessment and Plan Assessment and Plan (1) Cavitary lesion of lung: (2) Bacteremia: (3) Dehydration: (4) DENISE (acute kidney injury): Plan Klebsiella bacteremia. Fever and chills for the last several weeks. Unknown source. Patient had UTI several weeks ago and was discharged home on Levaquin. Subsequently was given amoxicillin or Augmentin by his PCP. I requested a CAT scan of the abdomen and pelvis to be done in the emergency room department to rule out intra-abdominal infectious process. That came back negative. Positive for lung lesion with cavitation. That could be the source of bacteremia. Patient reported having ache in his hips. He has a history of hip replacement. I accepted to admit him to the medical floor. I started him on ertapenem suspecting that he may have ESBL Klebsiella. Would recommend repeat blood culture in 48 hours. If patient continues to be bacteremic I would recommend echocardiogram rule out endocarditis and imaging of the hips to rule out hip infection. Hold immunotherapy. Monitor white count and CRP. Cavitary lung lesion. Patient reported that he has had nodules before which could be mets. Requested CAT scan of the chest DENISE, probable dehydration versus sepsis related ATN. IV fluid infusion. Monitor kidney function. Proceed with additional investigation if no resolution of his kidney insufficiency. Known history of colon cancer. Hold immunotherapy due to active bacteremia. DVT prophylaxis Lovenox subcu
[2025-02-21] MEDS: ACETAMINOPHEN 325 MG TABLET 650 MG PO (18:08)
[2025-02-22 03:35] VITALS: BP 117/63; PULSE 68; TEMP 37.3; O2SAT 95
[2025-02-22 05:41] LABS: Hematocrit 29.0 % (42.0-54.0); Hemoglobin 9.8 g/dL (14.0-18.0); Immature Granulocytes Abs Auto 0.03 10^3/uL (0.00-0.03); Immature Granulocytes Pct Auto 0.4 % (0.0-0.5); Lymphocytes Absolute Auto 1.1 10^3/uL (1.2-3.8); Mean Corpuscular HGB Conc 33.8 g/dL (29.9-35.2); Mean Corpuscular Hemoglobin 32.8 pg (25.9-34.0); Mean Corpuscular Volume 97.0 fL (80.0-94.0); Platelet Count 141 10^3/uL (150-450); Red Blood Count 2.99 10^6/uL (4.70-6.10); White Blood Count 6.8 10^3/uL (4.0-11.0)
[2025-02-22 05:59] LABS: Alanine Aminotransferase 21 U/L (16-63); Albumin Globulin Ratio 0.5; Albumin Level 2.3 g/dL (3.4-5.0); Alkaline Phosphatase 83 U/L (46-116); Anion Gap 13.1; Aspartate Amino Transferase 14 U/L (15-37); Blood Urea Nitrogen 7.0 mg/dL (7.0-18.0); Calcium 8.3 mg/dL (8.5-10.1); Carbon Dioxide 22.6 mmol/L (21.0-32.0); Chloride 105 mmol/L (98-107); Estimated GFR (African America >60 (>=60 mL/min/1.73m^2); Estimated GFR (Non-African Ame >60 (>=60 mL/min/1.73m^2); Globulin 4.3 g/dL; Glucose 112 mg/dL (74-106); Magnesium 2.1 mg/dL (1.8-2.4); Potassium 3.7 mmol/L (3.5-5.1); Sodium 137 mmol/L (136-145); Total Protein 6.6 g/dL (6.4-8.2)
[2025-02-22 07:58] VITALS: BP 138/79; PULSE 69; TEMP 38.1; O2SAT 96
[2025-02-22] MEDS: ACETAMINOPHEN 325 MG TABLET 650 MG PO (08:27)
--- NOTE | 2025-02-22 09:08 | PM.PN ---
Progress Note: Subjective Subjective Interval history: Following up on the patient. Patient is doing well. Uneventful night. No chest pain or palpitation. No abdominal pain, nausea or vomiting. Exam Narrative Exam Narrative: [pt is awake and alert. oriented to place, time and person HEENT: [place] conjunctiva and NL buccal mucosa Neck: Supple, no tenderness Endocrine: No Thyromegaly. Vascular: No JVD or carotid bruit. Lymphatic: No cervical lymphadenopathy. Chest: CTA no DTP. Heart RRR, no extra sound or murmur. Abd: Soft, no tenderness, no rebound and no rigidity. Increase abd girth therefore clinically I could not exclude the possibility of intra abd mass or organomegaly. Scar in the abdomen consistent with previous colectomy. LE: No cyanosis or clubbing, no varices or edema. Neuro: A A O. Nl speech, comprehension and attention. Nl and symetrical motor and tone examination through out. []] Constitutional Vital Signs, click to edit/add: Last Vital Signs Temp 100.6 F H 02/22/25 07:58 Pulse 69 02/22/25 07:58 Resp 16 02/22/25 07:58 BP 138/79 02/22/25 07:58 Pulse Ox 96 02/22/25 07:58 O2 Del Method Room Air 02/22/25 07:58 Progress Note: Objective Labs Labs: Short CBC 02/22/25 Range/Units 05:04 WBC 6.8 (4.0-11.0) 10^3/uL Hgb 9.8 L (14.0-18.0) g/dL Hct 29.0 L (42.0-54.0) % Plt Count 141 L (150-450) 10^3/uL BMP 02/22/25 05:04 Sodium 137 Potassium 3.7 Chloride 105 Carbon Dioxide 22.6 BUN 7.0 Creatinine 0.75 Glucose 112 H Calcium 8.3 L Liver Function 02/22/25 Range/Units 05:04 Total Bilirubin 0.4 (0.2-1.0) mg/dL AST 14 L (15-37) U/L ALT 21 (16-63) U/L Alkaline Phosphatase 83 (46-116) U/L Albumin 2.3 L (3.4-5.0) g/dL Progress Note: A&P Assessment and Plan (1) Cavitary lesion of lung: (2) Bacteremia: (3) Dehydration: (4) DENISE (acute kidney injury): Plan Klebsiella bacteremia. Fever and chills for the last several weeks. Unknown source. Patient had UTI several weeks ago and was discharged home on Levaquin. Subsequently was given amoxicillin or Augmentin by his PCP. I requested a CAT scan of the abdomen and pelvis to be done in the emergency room department to rule out intra-abdominal infectious process. That came back negative. Positive for lung lesion with cavitation. That could be the source of bacteremia. He denies any pain or discomfort in both hips. I accepted to admit him to the medical floor. I started him on ertapenem suspecting that he may have ESBL Klebsiella. Would recommend repeat blood culture in 48 hours. 02/23 to ensure complete resolution of the bacteremia If patient continues to be bacteremic I would recommend echocardiogram rule out endocarditis and imaging of the hips to rule out hip infection. Hold immunotherapy. Monitor white count and CRP. Cavitary lung lesion. Patient reported that he has had nodules before which could be mets. Requested CAT scan of the chest completed already. Waiting for imaging and the report to show up DENISE, probable dehydration versus sepsis related ATN. DENISE had resolved. Known history of colon cancer. Hold immunotherapy due to active bacteremia. Anemia, which is likely cause secondary to chemotherapy and/or underlying malignancy Hemoglobin drop over the last 24 hours secondary to IV hydration No evidence of acute blood loss. DVT prophylaxis Lovenox subcu
[2025-02-22] MEDS: ENOXAPARIN SODIUM 40 MG/0.4 ML SYRINGE SUBQ (09:24)
[2025-02-22 09:43] VITALS: TEMP 37.2
[2025-02-22] MEDS: 0.9 % SODIUM CHLORIDE 250 ML 10 ML IV (10:40)
[2025-02-22] MEDS: ERTAPENEM SODIUM 1 GM in 0.9 % SODIUM CHLORIDE 50 ML IV (10:41)
--- NOTE | 2025-02-22 12:35 | CM.NOTE ---
[address] Dawson for daily rounds. Plan is to await CT chest result, repeat blood cultures tomorrow and potentially discharge home on Wednesday or Wednesday pending blood culture results.
[2025-02-22 13:06] VITALS: BP 124/77; PULSE 62; TEMP 37.9; O2SAT 96
[2025-02-22 15:27] VITALS: BP 134/82; PULSE 56; TEMP 36.4; O2SAT 97
[2025-02-22 20:21] VITALS: BP 127/76; PULSE 66; TEMP 37.3; O2SAT 94
[2025-02-23 00:18] VITALS: BP 123/72; PULSE 59; TEMP 37.1; O2SAT 95
[2025-02-23 04:00] VITALS: BP 146/81; PULSE 58; TEMP 37.3; O2SAT 95
[2025-02-23 07:48] VITALS: BP 142/77; PULSE 62; TEMP 36.9; O2SAT 94
--- NOTE | 2025-02-23 09:29 | CM.NOTE ---
Rounds made with Dr. Dawson, no discharge today. Blood culture and susceptibility given to Dr. Dawson. Awaiting second blood couture results. Continue IV antibiotics, no discharge today.
[2025-02-23] MEDS: ENOXAPARIN SODIUM 40 MG/0.4 ML SYRINGE SUBQ (09:39)
--- NOTE | 2025-02-23 09:39 | PM.PN ---
Progress Note: Subjective Subjective Interval history: Following up on the patient. Patient is doing well. Uneventful night. No chest pain or palpitation. No abdominal pain, nausea or vomiting. Exam Narrative Exam Narrative: [pt is awake and alert. oriented to place, time and person HEENT: [place] conjunctiva and NL buccal mucosa Neck: Supple, no tenderness Endocrine: No Thyromegaly. Vascular: No JVD or carotid bruit. Lymphatic: No cervical lymphadenopathy. Chest: CTA no DTP. Heart RRR, no extra sound or murmur. Abd: Soft, no tenderness, no rebound and no rigidity. Increase abd girth therefore clinically I could not exclude the possibility of intra abd mass or organomegaly. Scar in the abdomen consistent with previous colectomy. LE: No cyanosis or clubbing, no varices or edema. Neuro: A A O. Nl speech, comprehension and attention. Nl and symetrical motor and tone examination through out. []] Constitutional Vital Signs, click to edit/add: Last Vital Signs Temp 98.5 F 02/23/25 07:48 Pulse 62 02/23/25 07:48 Resp 16 02/23/25 07:48 BP 142/77 H 02/23/25 07:48 Pulse Ox 94 L 02/23/25 07:48 O2 Del Method Room Air 02/23/25 07:48 Progress Note: A&P Assessment and Plan (1) Cavitary lesion of lung: (2) Bacteremia: (3) Dehydration: (4) DENISE (acute kidney injury): Plan Klebsiella bacteremia. Fever and chills for the last several weeks. Unknown source. Patient had UTI several weeks ago and was discharged home on Levaquin. Subsequently was given amoxicillin or Augmentin by his PCP. Repeat blood culture is negative. I requested a CAT scan of the abdomen and pelvis to be done in the emergency room department to rule out intra-abdominal infectious process. That came back negative. Positive for lung lesion with cavitation. That could be the source of bacteremia. CAT scan of the chest showed multi nodular infiltration. The new since last CT that was completed recently. Unlikely metastasis. Likely septic embolization. Recommend repeat CAT scan of the chest in 3 months to ensure complete resolution. Repeat blood culture completed this morning 02/23 is pending. CRP is trending down. Likely patient will be staying over the weekend waiting for repeat blood culture to come back. Likely patient will be discharged home on intravenous ertapenem to be administered in the outpatient infusion center. Cavitary lung lesion. Patient reported that he has had nodules before which could be mets. CAT scan of the chest showed multinodular lesions suspicious for septic embolization. Recommend repeat CAT scan in 3 months DENISE, probable dehydration versus sepsis related ATN. DENISE had resolved. Known history of colon cancer. Hold immunotherapy due to active bacteremia. Anemia, which is likely cause secondary to chemotherapy and/or underlying malignancy Hemoglobin drop over the last 24 hours secondary to IV hydration No evidence of acute blood loss. DVT prophylaxis Lovenox subcu
[2025-02-23] MEDS: ERTAPENEM SODIUM 1 GM in 0.9 % SODIUM CHLORIDE 50 ML IV (10:03)
[2025-02-23 16:14] VITALS: BP 147/84; PULSE 57; TEMP 36.9; O2SAT 94
[2025-02-23 20:00] VITALS: BP 144/81; PULSE 62; PULSE 64; TEMP 36.9; O2SAT 95
[2025-02-23 23:45] VITALS: BP 129/72; PULSE 58; TEMP 37.2; O2SAT 94
[2025-02-24 04:00] VITALS: BP 148/75; PULSE 64; TEMP 37; O2SAT 92
[2025-02-24 08:40] VITALS: BP 143/82; PULSE 55; TEMP 37.2; O2SAT 94
[2025-02-24] MEDS: ENOXAPARIN SODIUM 40 MG/0.4 ML SYRINGE SUBQ (08:49)
[2025-02-24] MEDS: ERTAPENEM SODIUM 1 GM in 0.9 % SODIUM CHLORIDE 50 ML IV (08:50)
[2025-02-24 10:53] LABS: Hematocrit 33.2 % (42.0-54.0); Hemoglobin 11.3 g/dL (14.0-18.0); Immature Granulocytes Abs Auto 0.04 10^3/uL (0.00-0.03); Immature Granulocytes Pct Auto 0.6 % (0.0-0.5); Lymphocytes Absolute Auto 1.4 10^3/uL (1.2-3.8); Mean Corpuscular HGB Conc 34.0 g/dL (29.9-35.2); Mean Corpuscular Hemoglobin 32.5 pg (25.9-34.0); Mean Corpuscular Volume 95.4 fL (80.0-94.0); Platelet Count 158 10^3/uL (150-450); Red Blood Count 3.48 10^6/uL (4.70-6.10); White Blood Count 6.6 10^3/uL (4.0-11.0)
--- NOTE | 2025-02-24 11:13 | P.PN_ITS ---
Progress Note: Subjective Subjective Interval history: I, Dr. Phelps, found the patient to be very strongly interested in going home over the weekend. He has an appointment with Dr. Esteves on Wednesday. I explained to the gentleman, in general and in layman's terms, that I do not think that we will be able to discharge him over the weekend. We are still waiting final culture and sensitivity results on his bacteremia. And there is a very strong likelihood that he will need long-term IV antibiotics, which the patient agreed that he understood was a possibility. So I said that here over the weekend, today on Wednesday and tomorrow on Wednesday, he will have to remain hospitalized. No other problems at this time: No fevers chills. No shaking rigors. No cough. Never had a cough at all. No dysuria. No diarrhea. I discussed with the patient to eat as healthy as possible and need probiotics and do optima oral care so he does not get thrush. The patient recalled that thrush was a possibility of his anticancer regimen and he was keeping an eye out for it and never developed any. Exam Narrative Exam Narrative: General: Awake and alert and oriented x 3. Sitting out of bed on the couch. Conversant. GI: Abdomen soft, normal bowel sounds to auscultation. Cardiac: No murmurs to auscultation. Constitutional Vital Signs, click to edit/add: Last Vital Signs Temp 98.9 F 02/24/25 08:40 Pulse 55 L 02/24/25 08:40 Resp 16 02/24/25 08:40 BP 143/82 H 02/24/25 08:40 Pulse Ox 94 L 02/24/25 08:40 O2 Del Method Room Air 02/24/25 08:40 Progress Note: A&P Assessment and Plan (1) Cavitary lesion of lung: (2) Bacteremia: (3) Dehydration: (4) DENISE (acute kidney injury): Plan Klebsiella bacteremia. Fever and chills for the last several weeks. Unknown source. Patient had UTI several weeks ago and was discharged home on Levaquin. Subsequently was given amoxicillin or Augmentin by his PCP. Repeat blood culture is negative. CAT scan of the abdomen and pelvis was done in the emergency room department to rule out intra-abdominal infectious process. That came back negative. Positive for lung lesion with cavitation. That could be the source of bact eremia. CAT scan of the chest showed multi nodular infiltration. The new since last CT that was completed recently. Unlikely metastasis. Likely septic embolization. Recommend repeat CAT scan of the chest in 3 months to ensure complete resolution. Repeat blood culture completed on 02/23 are pending. CRP is trending down. Likely patient will be discharged home on intravenous ertapenem to be admin istered in the outpatient infusion center. Cavitary lung lesion. Patient reported that he has had nodules before which could be mets. CAT scan of the chest showed multinodular lesions suspicious for septic embolization. Recommend repeat CAT scan in 3 months DENISE, probable dehydration versus sepsis related ATN. DENISE had resolved. Known history of colon cancer. Holding immunotherapy due to active bacteremia. Anemia, which is likely cause secondary to chemotherapy and/or underlying malignancy Hemoglobin drop over the initial first 24 hours secondary to IV hydration No evidence of acute blood loss. DVT prophylaxis Lovenox subcu
[2025-02-24 11:18] LABS: Anion Gap 11.5; Blood Urea Nitrogen 5.0 mg/dL (7.0-18.0); Calcium 8.9 mg/dL (8.5-10.1); Carbon Dioxide 27.0 mmol/L (21.0-32.0); Chloride 102 mmol/L (98-107); Estimated GFR (African America >60 (>=60 mL/min/1.73m^2); Estimated GFR (Non-African Ame >60 (>=60 mL/min/1.73m^2); Glucose 129 mg/dL (74-106); Potassium 3.5 mmol/L (3.5-5.1); Sodium 137 mmol/L (136-145)
[2025-02-24 11:25] VITALS: BP 143/82; PULSE 64; TEMP 37.1; O2SAT 95
[2025-02-24 19:21] VITALS: BP 151/80; PULSE 64; TEMP 36.7; O2SAT 93
[2025-02-25 06:42] LABS: Hematocrit 30.6 % (42.0-54.0); Hemoglobin 10.3 g/dL (14.0-18.0); Immature Granulocytes Abs Auto 0.04 10^3/uL (0.00-0.03); Immature Granulocytes Pct Auto 0.7 % (0.0-0.5); Lymphocytes Absolute Auto 1.4 10^3/uL (1.2-3.8); Mean Corpuscular HGB Conc 33.7 g/dL (29.9-35.2); Mean Corpuscular Hemoglobin 32.2 pg (25.9-34.0); Mean Corpuscular Volume 95.6 fL (80.0-94.0); Platelet Count 149 10^3/uL (150-450); Red Blood Count 3.20 10^6/uL (4.70-6.10); White Blood Count 5.8 10^3/uL (4.0-11.0)
[2025-02-25 06:58] LABS: Anion Gap 11.2; Blood Urea Nitrogen 5.0 mg/dL (7.0-18.0); Calcium 8.8 mg/dL (8.5-10.1); Carbon Dioxide 27.2 mmol/L (21.0-32.0); Chloride 103 mmol/L (98-107); Estimated GFR (African America >60 (>=60 mL/min/1.73m^2); Estimated GFR (Non-African Ame >60 (>=60 mL/min/1.73m^2); Glucose 132 mg/dL (74-106); Potassium 3.4 mmol/L (3.5-5.1); Sodium 138 mmol/L (136-145)
[2025-02-25] MEDS: IRBESARTAN 300 MG 300 EACH PO (08:29)
[2025-02-25] MEDS: ENOXAPARIN SODIUM 40 MG/0.4 ML SYRINGE SUBQ (08:29)
[2025-02-25] MEDS: ERTAPENEM SODIUM 1 GM in 0.9 % SODIUM CHLORIDE 50 ML IV (10:26)
[2025-02-25] MEDS: 0.9 % SODIUM CHLORIDE 250 ML 10 ML IV (10:26)
--- NOTE | 2025-02-25 11:28 | P.IMPN_ITS ---
Progress Note: A&P Assessment and Plan (1) Cavitary lesion of lung: (2) Bacteremia: (3) Dehydration: (4) DENISE (acute kidney injury): Plan Klebsiella bacteremia. Fever and chills for the last several weeks. Unknown source. Patient had UTI several weeks ago and was discharged home on Levaquin. Subsequently was given amoxicillin or Augmentin by his PCP. Repeat blood cultures are negative..... so far. CAT scan of the abdomen and pelvis was done in the emergency room department to rule out intra-abdominal infectious process. That came back negative. Positive for lung lesion with cavitation. That could be the source of bacteremia. CAT scan of the chest showed multi nodular infiltration. The new since last CT that was completed recently. Unlikely metastasis. Likely septic embolization. Recommend repeat CAT scan of the chest in 3 months to ensure complete resolution. Repeat blood culture completed on 02/23 are negative so far, but the final results are still pending. Likely patient will be discharged home on intravenous ertapenem to be administered in the outpatient infusion center. Cavitary lung lesion. Patient reported that he has had nodules before which could be mets. CAT scan of the chest showed multinodular lesions suspicious for septic embolization. Recommend repeat CAT scan in 3 months DENISE, probable dehydration versus sepsis related ATN. DENISE had resolved. Known history of colon cancer. Holding immunotherapy due to active bacteremia. Anemia, which is likely cause secondary to chemotherapy and/or underlying malignancy Hemoglobin drop over the initial first 24 hours secondary to IV hydration No evidence of acute blood loss. DVT prophylaxis Lovenox subcu Internal Medicine - PN: Subj Subjective Interval history: Patient continues to feel well: No diarrhea. No dysuria. No cough. No cough or shortness of breath of any kind. His is at the bedside. She points out that he had a really bad urinary tract infection and I admitted that that could possibly be the way that he got Klebsiella into his bloodstream. There is no way to know for sure. The patient does have a chemotherapy port on the right side. It is currently not accessed. The skin around it is normal. No surface infection. Palpating along this and following the catheter up to its insertion site of above his collarbone everything is normal. The patient does comment that he thinks that his oncologist will get the port removed in the near future. Exam Narrative Exam Narrative: General: Awake and alert and oriented x 3. GI: Abdomen soft to palpation, normal bowel sounds to auscultation. Cardiac: No murmurs to auscultation. Pulmonary: Clear to auscultation without any wheezes. Chemotherapy port. On the right chest there is a tiny bit of a surface skin scar over the area. But the skin is perfect. No evidence of recent or remote infection. No pain around it. No redness. No cellulitis. No pain or any abnormality tracking the catheter all the way up above the clavicle where it pledges deeper. Constitutional Vital Signs, click to edit/add: Last Vital Signs Temp 98.1 F 02/24/25 19:21 Pulse 64 02/24/25 19:21 Resp 18 02/25/25 07:35 BP 151/80 H 02/24/25 19:21 Pulse Ox 93 L 02/24/25 19:21 O2 Del Method Room Air 02/24/25 19:21 Internal Medicine - PN: Obj Da Labs Labs: Laboratory Results - last 24 hr 02/24/25 02/25/25 10:43 05:50 WBC 5.8 RBC 3.20 L Hgb 10.3 L Hct 30.6 L MCV 95.6 H MCH 32.2 MCHC 33.7 RDW 13.2 Plt Count 149 L MPV 10.4 Neut % (Auto) 61.6 Lymph % (Auto) 23.9 [place] % (Auto) 9.7 Eos % (Auto) 3.6 Baso % (Auto) 0.5 Neut # (Auto) 3.6 Lymph # (Auto) 1.4 [place] # (Auto) 0.6 Eos # (Auto) 0.2 Baso # (Auto) 0.0 Abs Immat Gran (auto) 0.04 H Imm/Tot Granulo (auto) 0.7 H Sodium 137 138 Potassium 3.5 3.4 L Chloride 102 103 Carbon Dioxide 27.0 27.2 Anion Gap 11.5 11.2 BUN 5.0 L 5.0 L Creatinine 0.91 0.77 Est GFR ( Amer) >60 >60 Est GFR (Non-Af Amer) >60 >60 BUN/Creatinine Ratio 5.5 6.5 Glucose 129 H 132 H Calcium 8.9 8.8
[2025-02-25 16:27] VITALS: BP 124/75; PULSE 63; TEMP 36.9; O2SAT 95
[2025-02-25 21:53] VITALS: BP 144/82; PULSE 59; TEMP 37; O2SAT 95
[2025-02-26 05:50] VITALS: BP 147/74; PULSE 56; TEMP 36.6; O2SAT 96
[2025-02-26 07:38] VITALS: BP 142/80; PULSE 66; TEMP 37.3; O2SAT 95
--- NOTE | 2025-02-26 07:55 | CM.NOTE ---
Rounds made with Dr. Dawson, pt will discharge to home today and come for outpatient antibiotic therapy in [facility]. Pt verbalizes understanding. CM will complete [facility] form prior to pt's discharge.
--- NOTE | 2025-02-26 08:54 | P.DS_ITS ---
DS: Providers Provider Date of admission: 02/21/25 08:29 Primary care physician: Delta Pratt MD DS: Diagnosis Discharge Diagnosis (1) Cavitary lesion of lung: (2) Bacteremia: (3) Dehydration: (4) DENISE (acute kidney injury): Plan As listed above, below and others that are not listed DS: Summary Hospital Course Hospital Course: Mr. Martinez is a 55-year-old gentleman who was sent to the emergency room for an admission after an outpatient blood culture came back positive for Klebsiella. Klebsiella bacteremia. Fever and chills for the last several weeks. Unknown source. Patient had UTI several weeks ago and was discharged home on Levaquin. Subsequently was given amoxicillin or Augmentin by his PCP. Repeat blood culture is negative. I requested a CAT scan of the abdomen and pelvis to be done in the emergency room department to rule out intra-abdominal infectious process. That came back negative. Positive for lung lesion with cavitation. That could be the source of bacteremia. CAT scan of the chest showed multi nodular infiltration. The new since last CT that was completed recently. Unlikely metastasis. Likely septic embolization. Recommend repeat CAT scan of the chest in 3 months to ensure complete resolution. Repeat blood culture is negative CRP is trending down. Patient will be discharged home on intravenous ertapenem daily for 10 days. Total treatment will be 15 days. Cavitary lung lesion. Patient reported that he has had nodules before which could be mets. CAT scan of the chest showed multinodular lesions suspicious for septic embolization. Recommend repeat CAT scan in 3 months Hypertension, responded to oral ARB was started by my colleague. Patient will be discharged home on Hyzaar 50/12.5 daily. Adjustment will need to take place. Could be addressed in the outpatient setting. DENISE, probable dehydration versus sepsis related ATN. DENISE had resolved. Known history of colon cancer. Hold immunotherapy due to active bacteremia. Patient is to follow-up with the oncology team. Anemia, which is likely cause secondary to chemotherapy and/or underlying malignancy Hemoglobin drop over the last 24 hours secondary to IV hydration No evidence of acute blood loss. DVT prophylaxis Lovenox subcu Patient has multiple complex medical issues as listed above and others that are not listed. All appear to be stable. Patient is feeling great. Patient is very physically and psychologically to be discharged home. I do not have any clear or strong clinical justification to extend inpatient hospitalization. Patient however will require close and frequent monitoring as well as additional work-up, investigation and therapeutic intervention that could take place from this point on post discharge. That is to prevent relapse, decompensation, rehospitalization and other medical implications.. I instructed patient to ask her primary care doctor to obtain [facility] record entirely to address abnormalities seen on labs and imaging that I have and have not addressed during this hospitalization, follow-up on pending blood work, imaging and pathology is if available and to follow-up on needed medical care in the outpatient setting. Time Spent with Patient Time attestation: Total time spent providing and/or coordinating discharge services: Exam Narrative Exam Narrative: [pt is awake and alert. oriented to place, time and person HEENT: [place] conjunctiva and NL buccal mucosa Neck: Supple, no tenderness Endocrine: No Thyromegaly. Vascular: No JVD or carotid bruit. Lymphatic: No cervical lymphadenopathy. Chest: CTA no DTP. Heart RRR, no extra sound or murmur. Abd: Soft, no tenderness, no rebound and no rigidity. Increase abd girth therefore clinically I could not exclude the possibility of intra abd mass or organomegaly. LE: No cyanosis or clubbing, no varices or edema. Neuro: A A O. Nl speech, comprehension and attention. Nl and symetrical motor and tone examination through out. []] Constitutional Vital Signs, click to edit/add: Last Vital Signs Temp 99.2 F 02/26/25 07:38 Pulse 66 02/26/25 07:38 Resp 16 02/26/25 07:38 BP 142/80 H 02/26/25 07:38 Pulse Ox 95 02/26/25 07:38 O2 Del Method Room Air 02/26/25 07:38 DS: Data Data Completed and Pending Labs on day of discharge: Preliminary micro results at discharge 02/23/25 05:12 Blood Culture Result 2 - Preliminary Blood - Right Hand NO GROWTH AT 36-48 HOURS. FINAL TO FOLLOW. 02/23/25 05:03 Blood Culture Result 1 - Preliminary Blood - Left Hand NO GROWTH AT 36-48 HOURS. FINAL TO FOLLOW. Discharge Plan Discharge Disposition: Home, Self-Care Discharge Medications: New ertapenem 1 gram recon soln 1 g IM DAILY 10 Days Qty: 10 0RF losartan-hydrochlorothiazide [Hyzaar] 50-12.5 mg tablet 1 tab PO DAILY Qty: 30 1RF Changed ibuprofen 200 mg capsule 400 mg PO Q8H PRN (Reason: pain) Qty: 0 0RF Held Edarbi 80 mg tablet 80 mg PO DAILY Hold Instructions: Resume on 03/12/25. capecitabine 500 mg tablet 1,000 mg PO BID Hold Instructions: Resume on 03/12/25. Rx Instructions: DAYS 1-14 Q21 DAYS Discontinued amoxicillin-pot clavulanate 875-125 mg tablet 1 tab PO BID Rx Instructions: 02/15/25-02/24/25 Print Language: Uzbek Activity Restrictions/Additional Instructions: I may not have addressed or treated all of your medical illnesses or the abnormal blood work or imaging studies during this hospitalization. Please ask your primary care provider to obtain [facility] records entirely to follow up on all of the abnormal physical, laboratory, and imaging findings that I have not addressed. Please return back to the emergency room or seek medical attention if your symptoms worsen or return. 1 daily dose of ertapenem infusion for 10 days. Recommend CBC, CRP, BMP weekly for 2 weeks I would recommend that you have a repeat CAT scan of the chest in 3 months to ensure complete resolution of the infiltration. This is to be arranged by your primary care doctor or Dr. Esteves Discharging you from [facility] does not mean that your medical care ends here and now. You may still need additional monitoring, work up, investigation, and treatment plan to be handled from this point on by out patient providers including your primary care provider and specialists. For any medication question, please contact your retail pharmacist or your primary care provider. Thank you. Forms: Portal Instructions Follow Up Appointments: 02/27 @ 10:30AM with Dr. Esteves at [facility] [phone]
--- NOTE | 2025-02-26 09:51 | CM.NOTE ---
CECILE form completed for IV antibiotics, faxed to lab and centralized scheduling. Copy also provided to pharmacy and [facility] clinic.
[2025-02-26] MEDS: ENOXAPARIN SODIUM 40 MG/0.4 ML SYRINGE SUBQ (09:56)
[2025-02-26] MEDS: IRBESARTAN 300 MG 300 EACH PO (09:56)
[2025-02-26] MEDS: ERTAPENEM SODIUM 1 GM in 0.9 % SODIUM CHLORIDE 50 ML IV (10:00)
--- NOTE | 2025-02-26 10:47 | CM.NOTE ---
Discussed with pt discharge planning and outpatient [facility]/infusion for IV antibiotics. Pt given copy of order, pt verbalizes understanding. Copy provided to [facility], pharmacy and faxed to Centralized scheduling. Pt updated that Centralized scheduling will call him for appointment time, pt will start 02/27. If pt does not hear from scheduling, pt provided with telephone number to call them.
--- NOTE | 2025-02-27 13:29 | CM.DCFOLLOWU ---
Person spoke with:Eddie How are you feeling? Not good How is your pain?No pain but patient is running a fever Did you understand your discharge instructions? Yes Do you have any questions about your discharge instructions? No Were you given any prescriptions at discharge? Yes Were you able to get your prescriptions filled? Not yet but has the medications he needs at home Do you understand how to take your medications as ordered? Yes Do you have any questions about your follow up appointment and do you plan to keep your follow up appointment? No questions about his appts and plans on keeping them Is there anything else that you would like to discuss? Yes, the patient voiced concerns that he was running a fever 101.8 around 1 pm today. He took Tylenol and plans on taking Motrin around 2:30 pm. I spoke with Dr. Dawson and he would like patient to return to the ER if his fever continues. The patient was advised of this and stated that he may just go to [facility] this time. Questions/Comments/Concerns/Other:
== END 2025-02-26 11:13 | disposition home or self-care (01) | DRG 872 ==
LOC: ER 02-21 07:24 → MS 02-21 08:42
PROVIDERS: Hospitalist; Admitting Provider Internal Medicine; Emergency Provider Internal Medicine; PCP Family Medicine; Visit Provider Internal Medicine
DX: R78.81 Bacteremia (principal); N17.9 Acute kidney failure, unspecified; C18.9 Malignant neoplasm of colon, unspecified; I76 Septic arterial embolism; I74.8 Embolism and thrombosis of other arteries; B96.1 Klebsiella pneumoniae [K. pneumoniae] as the cause of diseases classified elsewhere; E86.0 Dehydration; J98.4 Other disorders of lung; F17.290 Nicotine dependence, other tobacco product, uncomplicated; Z90.49 Acquired absence of other specified parts of digestive tract; Z79.60 Long term (current) use of unspecified immunomodulators and immunosuppressants; Z87.440 Personal history of urinary (tract) infections; Z96.649 Presence of unspecified artificial hip joint; E78.5 Hyperlipidemia, unspecified; I10 Essential (primary) hypertension; J45.909 Unspecified asthma, uncomplicated; G47.30 Sleep apnea, unspecified; R50.9 Fever, unspecified; D63.8 Anemia in other chronic diseases classified elsewhere; D64.81 Anemia due to antineoplastic chemotherapy
CPT/HCPCS: 36415; 71260; 74177; 80048; 80053; 81001; 83605; 83735; 85007; 85025; 85027; 86140; 87040; 87086; 87804; 87811; 96365; 96367; 99285; J1335; J1650; J2543; J3373; Q9967

== ENCOUNTER 2025-03-07 12:32 | Outpatient (OUT) | payer BC, SELFPAY ==
--- OUTSIDE RECORDS SUMMARY | 2025-03-07 12:36 | XMS_ITS | CCD ---
Author Organization [facility]iniSym[facility] Care Team Providers Care Commissioning Engineer Name Role Phone CASEY ., DR BLEVINS [...] Consulting Unavailable MD Gen Peña Attending Provider [phone] MD Kisha Esteves Attending Provider [phone] Gen Peña Primary Care Physician [phone] Gen Peña MD Primary Care Provider [phone] Floridalma PATEL, oJne Galeana Unavailable Lazaro MONTOYA, Chelle Orta Unavailable Yemi PATEL, [facility] Unavailable [phone] KATY CARIASARATBridget Admitting Unavailable DONIS CARIAS Attending Unavailable ANDERSONY, GEN M Primary Care Unavailable BENOITRO, KATYARATU Referring Unavailable HOY, GEN M Primary Care Unavailable BENOITRO, AJARATU Referring Unavailable HOY, GEN M Primary Care Unavailable BENOITRO, AJARATU Referring Unavailable HOY, GEN M Primary Care Unavailable HOY, GEN M Primary Care Unavailable BENOITRO, AJARATU Admitting Unavailable KATY CARIASARADagoU Attending Unavailable JOE JONES Attending Unavailable DANIELITO, KISHA Referring Unavailable NILL, Jone R Attending Unavailable NILL, Jone R Attending Unavailable DANIELITO, KISHA Referring Unavailable NILL, Jone R Attending Unavailable NILL, Jone R Attending Unavailable NILL, Jone R Attending Unavailable NILL, Jone R Attending Unavailable NILL, Jone R Attending Unavailable Joseph Bragg MD Unavailable [phone] JOSEPH BRAGG Attending Unavailable MUSTAPHASHINRO, AJARATU Referring Unavailable HOY, GEN M Primary Care Unavailable KESHINRO, KATYARATU Referring Unavailable HOY, GEN M Primary Care Unavailable DONIS CARIAS Attending Unavailable NILL, JONE R Referring Unavailable HOY, GEN M Primary Care Unavailable KEJANERO, ASHLEIGHU Attending Unavailable HOY, GEN M Primary Care Unavailable KESHINASHLEIGH GARCIAU Attending Unavailable HOY, GEN M Primary Care Unavailable MAYLIN CONTE Attending Unavailable MAYLIN CONTE Referring Unavailable HOY, GEN M Primary Care Unavailable Mariela Luna ZHU Attending Provider NON STAFF Primary Care Provider UnavailDevan Carrizales MD Attending Provider Kisha Esteves MD Attending Provider Devan Franklin Admitting Unavailable Devan Franklin Attending Unavailable Nill, Jone R Admitting Unavailable Nill, Jone R Attending Unavailable Rigoberto Devan T Admitting Unavailable Fernandez Franklinyl Dago Attending Unavailable Danielito, Kisha Admitting Unavailable Danielito, Kisha Attending Unavailable Allergies Allergy Classification Reported Allergen(s) Allergy Type Date of Onset Reaction(s) Facility (1 source) No Known Medication Allergies; Translations: [No Known Medication Allergies] Propensity to adverse reactions (disorder) [facility] Repository Medications Current Medications Medication Drug [...] take 1 tablet by mouth once daily Start: 06-03-2018 EDARBI 80 mg t ab [...] 1 Each 05/25/2024 Active lactobacillus rhamnosus gg [id number] unt oral capsule (13 sources) Start: 06-16-2024 [...] disorders (5 sources) Morbid obesity 04-17-2024 Chronic Other upper respiratory infections (6 sources) Viral upper respiratory tract infection; Translations: [Acute upper respiratory infection, unspecified] 01-30-2025 Episodic Residual codes; unclassified (4 sources) Obstructive sleep [...] Episodic Other aftercare (1 source) 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 therapy; Translations: [OTH YARN WEIGHER CURRENT DRUG THERAPY] Onset: 02-08-2022 Episodic Other screening for suspected conditions (not mental disorders or infectious disease) (1 source) Encounter for screening for malignant neoplasm of prostate; Translations: [ENC SCREEN MALIG NEOPLASM PROSTATE] Onset: 02-08-2022 Episodic Residual codes; unclassified (15 sources) User of smokeless tobacco; Translations: [Tobacco use] Onset: 06-08-2024 06-08-2024 Episodic Results Test Name Value Interpretation Reference Range Facility Urine Cultureon 02-21-2025 Bacteria identified Cx Nom (U) No Growth 2 Days PERFORMED BY: [place] [address] PATHOLOGIST AIRLINE HOSTESS YEYO DAVIS M.D. Normal [facility] Comment on above: Performed By: #### C UU #### [place] [id number] [facility] Blood Cultureon 02-20-2025 Bacteria identified Cx Nom (Bld) Gram Stain Gram Negative Bacilli ORGANISM: Klebsiella aerogenes (O:KLEAER) Organism Comments For PARTH Refer to Final Report of Blood Culture Collected Date 02/20/25 PERFORMED BY: [place] [address] PATHOLOGIST AIRLINE HOSTESS YEYO DAVIS M.D. Normal [facility] Comment on above: Performed By: #### C UBLD #### [address] [address] [facility] Bacteria identified Cx Nom (Bld) Gram Stain Gram Negative Bacilli ORGANISM: Klebsiella aerogenes (O:KLEAER) Aerobic PARTH Charge (NMIC56) SUSCEPTIBILITY ORGANISM: O:KLEAER ANTIBIOTIC INTERPRETATION PARTH Amikacin S <16 Aztreonam I <4 Cefepime S <2 Ceftazidime I <1 Ceftazidime/Avibactam S <4 Ceftriaxone I <1 Cefuroxime R 16 Ciprofloxacin R 1 Ertapenem S <0.5 Gentamicin S <2 Levofloxacin R 2 Meropenem S <1 Meropenem/Vaborbactam S <2 Piperacillin/Tazobactam I <8 Tetracycline S <4 Tobramycin S <2 Trimethoprim/Sulfamethoxazo le S 04/11 S = SUSCEPTIBLE I = INTERMEDIATE R = RESISTANT BLANK = DATA NOT AVAILABLE, OR DRUG NOT ADVISABLE OR TESTED R* = RESISTANCE DUE TO EXTENDED SPECTRUM BETA-LACTAMASES ESBL = EXTENDED SPECTRUM BETA-LACTAMASE TFG = THYMIDINE-DEPENDENT STRAIN CHRISTINE = BETA-LACTAMASE POSITIVE IB = INDUCIBLE BETA-LACTAMASE. APPEARS IN PLACE OF 'S' WITH SPECIES KNOWN TO POSSESS INDUCIBLE BETA-LACTAMASES. POTENTIALLY THEY MAY BECOME RESISTANT TO ALL B-LACTAM DRUGS. PERFORMED BY: [place] [address] PATHOLOGIST AIRLINE HOSTESS YEYO DAVIS M.D. Normal [facility] Comment on above: Performed By: #### C UBLD #### [address] Urine Cultureon 02-20-2025 Bacteria identified Cx Nom (U) No Growth 2 Days PERFORMED BY: [place] [address] PATHOLOGIST AIRLINE HOSTESS YEYO DAVIS M.D. Normal [facility] Comment on above: Performed By: #### C UU #### [address] Urine Cultureon 02-02-2025 Bacteria identified Cx Nom (U) No Growth 2 Days PERFORMED BY: [place] [address] PATHOLOGIST AIRLINE HOSTESS YEYO Mendez [facility] Comment on above: Performed By: #### C UU #### [facility] [address] Urine cultureOrdered By: Fernandez Franklin on 02-02-2025 Bacteria identified Cx Nom (U) No Growth 2 Days [facility] Influenza virus A and B and SARS-CoV-2 (COVID-19) RNA panel - Respiratory system specOrdered By: Luna Sierra on 01-30-2025 Influenza virus A and B RNA and SARS-CoV-2 (COVID-19) N gene panel ALEXIS+probe (Resp) Negative [facility] - Microbiology an d Antimicrobial susceptibilityOrdered By: Luna Sierra on 01-30-2025 SARS-CoV-2 (COVID-19) RNA ALEXIS+probe Ql (Unsp spec) Negative [facility] No Panel InformationOrdered By: Luna Sierra on 01-30-2025 POC Influenza B (ALEXIS) Negative [facility] CNOVon 01-11-2025 CNOV Office Visit ([facility] ) PIPER RODRÍGUEZ ([id number]) 1970 M Date Time Provider Department 01/11/25 1:00 PM DONIS CARIAS [facility] During your visit today, we recorded the following information about you: Pulse Blood pressure Weight Height 69/minute 130/80 114.3 kg 1.778 m Donis Carias MD 01/11/2025 1:34 PM Signed [facility] January 11, 2025 Piper Rodríguez 54 year old Recording using [employer] software for draft documentation of the visit was discussed with the patient/authorized outbound telemarketing representative; all questions welcomed and answered. Patient/authorized outbound telemarketing representative agreed to proceed Chief Complaint: abdominal [...] recti Colonoscopy 06/03/2018 - Dr Hedrick @ [facility] Scan on 05/15/2024 9:54 AM by Be Cloud: Seth Castro- Operative Report 06/03/18 Colonoscopy 05/10/24 - Dr. Hedrick @ [facility] Scan on 05/16/2024 9:34 AM by Norma Magallanes: Seth Castro operative note (path pending) [id number] Pathology Scan on 05/22/2024 8:26 AM by Be Cloud: [facility] Report 05/11/24 COLON, Biopsy, Cecum: COLONIC TISSUE WITH INVASIVE ADENOCARCINOMA, MODERATELY DIFFERENTIATED, ULCERATION NOTED 2. COLON, Biopsy, Sigmoid: LARGE TUBULAR ADENOMA (>1 CM), NEGATIVE FOR HIGH GRADE DYSPLASIA, AREAS SHOWING CAUTERY ARTIFACT ARE POSITIVE FOR ADENOMATOUS GLANDS 3. COLON, Biopsy, Descending: TUBULAR ADENOMA. NEGATIVE FOR HIGH GRADE DYSPLASIA FINAL DIAGNOSIS Terminal i (more content not included)... Normal [facility] Ambulatory Visit Summaryon 0 12-27-2024 Ambulatory [...] signed up for this yet, please contact Sr.Pago at [phone] to get signed up today. Language Information Language assistance services are available as needed. Andrea [facility] CNOVon 10-24-2024 CNOV Office Visit ([facility]) PIPER RODRÍGUEZ ([id number]) 1970 M Date Time Provider Department 10/24/24 10:00 AM DONIS CARIAS [facility] During your visit today, we recorded the following information about you: Pulse Blood pressure Weight 71/minute 160/91 114.7 kg Donis Carias MD 10/24/2024 10:19 AM Signed [facility] Recording using City Chat[employer] software for draft documentation of the visit was discussed with the patient/authorized outbound telemarketing representative; all questions welcomed and answered. 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 He underwent evaluation by a crimping press operator, including an echocardiogram, which was reportedly normal. [...] Magallanes: Seth Castro operative note (path pending) [id number] Pathology Scan on 05/22/2024 8:26 AM by Be Cloud: [facility] Report 05/11/24 COLON, Biopsy, Cecum: COLONIC TISSUE WITH INVASIVE ADENOCARCI (more content not included)... Normal [facility] 29on 09-27-2024 29 Addended by: Ngozi JONES on: 09/27/2024 04:14 PM Modules accepted: Orders [facility] Office Visiton 09-27-2024 Follow-up visit [id number] Piper Rodríguez 1970 M Date Provider Department Center 09/27/2024 [id number] No family history on file Level of Service:63066 [place] OFFICE/OUTPATIENT ESTABLISHED MOD MDM 30 MIN [facility] Orders Onlyon 09-27-2024 Orders Only [id number] Piper Rodríguez 1970 M Date Provider Department Center 09/27/2024 [id number] HAMPTON [facility] No family history on file [facility] Abstracton 09-26-2024 Abstract [id number] Piper Rodríguez 1970 M Date Provider Department Center 09/26/2024 [id number] GONSALE[facility] No family history on file [facility] Ambulatory Visit Summaryon 0 07-18-2024 [...] choosing us for your care. Andrea [facility] General Surgery Office/Clini c Noteon 07-18-2024 General Surgery Office/Clinic Note General Surgery Office/Clinic Note Chief Complaint post operative foloow up HPI Staff 13 day post operative follow up post insertion of [id number]. Denies discomfort, no use of pain medication. [...] mRNA-1273 vaccine 08/22/2020 Recorded 2024-04-17: [id number] Normal [facility] Comment on above: Result Comment: Elec tronically Signed By: FLORIDALMA PATEL, Jone Bell\Date and Time Signed: 07/18/24 14:26 EST CNOVon 07-07-2024 CNOV Office Visit ([id number] ) PIPER RODRÍGUEZ ([id number]) 1970 M Date Time Provider Department 07/07/24 9:00 AM MAYLIN CONTE [id number] During your visit today, we recorded the following information about you: Temperature Pulse Blood pressure Weight 97.9 degrees 88/minute 134/77 113.4 kg Height 1.778 m [place], [place] 07/07/2024 9:33 AM Signed What is [...] for internal providers or letter via the [employer] for external providers. Chief Complaint: [...] distress, well-hydrated, (more content not included)... Normal [facility] Rosemarie 06-30-2024 SURESHN Telephone ([employer]) PIPER RODRÍGUEZ ([id number]) 1970 M Date Time Provider Department 06/30/24 CHELLE WILLIS During your visit today, we recorded the following information about you: Chelle Willis, RN 06/30/2024 11:10 AM Signed Voicemail received from pt's stating pt will be going to [place] to see their oncologist, and doesn't wish to follow up here. Please cancel appointments on 07/12. Call placed to to further assess. Message left requesting her to call our office back. Thanks Chelle Willis, Maria Luisa Grey 06/30/2024 11:31 AM Signed All appointments on [...] Encounter Status:Closed by SABI ALLEN on 06/30/24 [facility] CNPNazanin 06-29-2024 CNPN Telephone (HEMASA) PIPER RODRÍGUEZ ([id number]) 1970 M Date Time Provider Department 06/29/24 CHELLE WILLIS HEMASA During your visit today, we recorded the following information about you: Chelle Willis RN 06/29/2024 12:44 PM Signed Pt will be in for education tomorrow. Please sign pending orders. Thanks Chelle Willis RN Allergies As of Date: 06/29/2024 (No Known Allergies) Date Reviewed: 06/28/2024 Reviewed by: Esthela Cantrell MA - Fully Assessed Reason for Visit: Care Coordination [0588] Cmt: Treatment prep Primary Visit Diagnosis:Malignant neoplasm of ascending colon (HCC) [C18.2] Order(s):prochlorperazine (COMPAZINE) 10 mg tabletTake 1 tablet by mouth every 6 hours as needed.Disp: 100 tabletRfl: 2 ondansetron (ZOFRAN) 8 mg tabletTake 1 tablet by mouth every 8 hours as needed for nausea/vomiting.Disp: 90 tabletRfl: 2 CONSULT TO SURVIVORSHIP [064657] Order #: [id number]: 1 FUTURE CONSULT TO ONCOLOGY NUTRITION [4781002] Order #: [id number]: 1 FUTURE Prescriptions as of 07/05/2024 - [...] Status:Closed by CHELLE WILLIS on 07/05/24 Normal [facility] Ambulatory Visit Summaryon 0 06-28-2024 Ambulatory Visit Summary Ambulatory Visit Summary PIPER RODRÍGUEZ :1970 Visit Date:06/28/2024 Ambulatory Visit Instructions Your Care Team Attending Physician - FLORIDALMA PATEL, Jone Galeana Primary Care Physician - Gen ePña MD This Is Your Medications List Contact [...] for choosing us for your care. Andrea [facility] CNOVSPon 06-28-2024 CNOVSP Visit (SP) Office (H EMASA) PIPER RODRÍGUEZ ([id number]) 1970 M Date Time Provider Department 06/28/24 11:00 AM JOSEPH BRAGG During your visit today, we recorded the following information about you: Temperature Pulse Respiration Blood pressure 97.3 degrees 74/minute 18/minute 118/79 Weight Height 115.3 kg 1.778 m Joseph Bragg MD 06/28/2024 11:29 AM Signed PATIENT NAME: Piper Rodríguez CLINIC NO.: [id number] ATTENDING PHYSICIAN: Joseph Bragg MD DATE OF SERVICE: June 28, [address] Donis Carias [address] [facility] [address] thank you for referring Piper Rodríguez for [...] pT3 pN1b. MSI Pending Works in a [employer]. Grand mother has colon cancer. No smoking. [...] appearance:ECOG PER (more content not included)... Normal [facility] Basic metabolic 2000 panelon 06-23-2024 Anion gap [Moles/Vol] 10 mmol/L Normal 8-15 [facility] Comment on above: Order Comment: Speci men Type: BLOOD SPECIMENOrdering Facility: [facility] Address: [address] [place] [address] Performed By: #### 2 4321-2, , 2776-05 ####AMRITA LABORATORYCLIA [id number] [place] [address] [place] Calcium [Mass/Vol] 8.9 mg/dL Normal 8.5-10.2 [facility] Comment on above: Order Comment: Speci men Type: BLOOD SPECIMENOrdering Facility: [facility] Address: [address] [place] [address] Performed By: #### 2 4321-2, , 2776-05 ####AMRITA LABORATORYCLIA [id number] [place] [address] [place] Chloride [Moles/Vol] 104 mmol/L Normal 98-107 [facility] Comment on above: Order Comment: Speci men Type: BLOOD SPECIMENOrdering Facility: [facility] Address: [address] [place] [address] Performed By: #### 2 4321-2, 31204-8, 2776- ####RADCL[facility] LABORATORYCLIA [id number] [place] [address] [place] CO2 [Moles/Vol] 24 mmol/L Normal 22-30 [facility] Comment on above: Order Comment: Speci men Type: BLOOD SPECIMENOrdering Facility: [facility] Address: [address] [place] [address] Performed By: #### 2 4321-2, , 2776-05 ####RADCL[facility] LABORATORYCLIA [id number] [place] [address] [place] Creatinine [Mass/Vol] 0.96 mg/dL Normal 0.73-1.22 [facility] Comment on above: Order Comment: Speci men Type: BLOOD SPECIMENOrdering Facility: [facility] Address: [address] [place] [address] Performed By: #### 2 4321-2, , 2776-05 ####RADCL[facility] LABORATORYCLIA [id number] [place] [address] [facility] Creatinine and Glomerular filtration rate.predicted panel (S/P/Bld) 95 mL/min/1.73m??? Normal >=60 [facility] Comment on above: Order Comment: Speci men Type: BLOOD SPECIMENOrdering Facility: [facility] Address: [address] [place] [address] Result Comment: Dee mated Glomerular Filtration Rate [...] #### 2 4321-2, , 2776-05 ####AMRITA LABORATORYCLIA [id number] [place] [address] [place] Glucose [Mass/Vol] 105 mg/dL High 74-99 [facility] Comment on above: Order Comment: Ara powers Type: BLOOD SPECIMENOrdering Facility: [facility] Address: [address] [place] [address] Result Comment: The [place] Diabetes Association (ADA) provides guidance for cutoff [...] Standards of Medical Care in Diabetes 2016, [place] [employer]. Diabetes Care. 2016.39(Suppl 1). Performed By: #### 2 4321-2, , 2776-05 ####AMRITA LABORATORYCLIA [id number] [place] [address] [place] Potassium [Moles/Vol] 4.2 mmol/L Normal 3.7-5.1 [facility] Comment on above: Order Comment: Ara powers Type: BLOOD SPECIMENOrdering Facility: [facility] Address: [address] [place] [address] Performed By: #### 2 4321-2, , 2776-05 ####AMRITA LABORATORYCLIA [id number] [place] [address] [place] Sodium [Moles/Vol] 138 mmol/L Normal 136-144 [facility] Comment on above: Order Comment: Ara powers Type: BLOOD SPECIMENOrdering Facility: [facility] Address: [address] [place] [address] Performed By: #### 2 4321-2, 84190-6, 2776-05 ####AMRITA LABORATORYCLIA [id number] [place] [address] [place] Urea nitrogen [Mass/Vol] 13 mg/dL Normal 9- [facility] Comment on above: Order Comment: Speci men Type: BLOOD SPECIMENOrdering Facility: [facility] Address: [address] [place] [address] Performed By: #### 2 4321-2, , 2776-05 ####AMRITA LABORATORYCLIA [id number] [place] [address] [place] CBC W Auto Differential pane l (Bld)on 06-23-2024 Basophils (Bld) [#/Vol] 0.05 10*3/uL Normal <0.11 [facility] Comment on above: Order Comment: Speci men Type: BLOOD SPECIMENOrdering Facility: [facility] Address: [address] [place] [address] Performed By: #### 5 7021-8 ####[facility] LABORATORYCLIA [id number] [place] [address] [place] Basophils/100 WBC (Bld) 0.8 % Normal [facility] Comment on above: Order Comment: Speci men Type: BLOOD SPECIMENOrdering Facility: [facility] Address: [address] [place] [address] Performed By: #### 5 7021-8 ####AMRITA LABORATORYCLIA [id number] [place] [address] [place] Differential cell count method Nom (Bld) Auto Normal [facility] Comment on above: Order Comment: Speci men Type: BLOOD SPECIMENOrdering Facility: [facility] Address: [address] [place] [address] Performed By: #### 5 7021-8 ####AMRITA LABORATORYCLIA [id number] [place] [address] [place] Eosinophils (Bld) [#/Vol] 0.30 10*3/uL Normal <0.46 [facility] Comment on above: Order Comment: Speci men Type: BLOOD SPECIMENOrdering Facility: [facility] Address: [address] [place] [address] Performed By: #### 5 7021-8 ####[facility] LABORATORYCLIA [id number] [place] [address] [place] Eosinophils/100 WBC (Bld) 4.6 % Normal [facility] Comment on above: Order Comment: Speci men Type: BLOOD SPECIMENOrdering Facility: [facility] Address: [address] [place] [address] Performed By: #### 5 7021-8 ####[facility] LABORATORYCLIA [id number] [place] [address] [place] Erythrocyte distribution width (RBC) [Ratio] 14.6 % Normal 11.5-15.0 [facility] Comment on above: Order Comment: Speci men Type: BLOOD SPECIMENOrdering Facility: [facility] Address: [address] [place] [address] Performed By: #### 5 7021-8 ####[facility] LABORATORYCLIA [id number] [place] [address] [place] Hematocrit (Bld) [Volume fraction] 38.0 % Low 39.0-51.0 [facility] Comment on above: Order Comment: Speci men Type: BLOOD SPECIMENOrdering Facility: [facility] Address: [address] [place] [address] Performed By: #### 5 7021-8 ####[facility] LABORATORYCLIA [id number] [place] [address] [place] Hemoglobin (Bld) [Mass/Vol] 11.9 g/dL Low 13.0-17.0 [facility] Comment on above: Order Comment: Speci men Type: BLOOD SPECIMENOrdering Facility: [facility] Address: [address] [place] [address] Performed By: #### 5 7021-8 ####[facility] LABORATORYCLIA [id number] [place] [address] [place] Immature granulocytes (Bld) [#/Vol] 0.04 10*3/uL Normal <0.10 [facility] Comment on above: Order Comment: Speci men Type: BLOOD SPECIMENOrdering Facility: [facility] Address: [address] [place] [address] Performed By: #### 5 7021-8 ####AMRITA LABORATORYCLIA [id number] [address] [place] [facility] Immature granulocytes/100 WBC (Bld) 0.6 % Normal [facility] Comment on above: Order Comment: Speci men Type: BLOOD SPECIMENOrdering Facility: [facility] Address: [address] [place] [address] Performed By: #### 5 7021-8 ####[facility] LABORATORYCLIA [id number] [address] Lymphocytes (Bld) [#/Vol] 1.78 10*3/uL Normal 1.00-4.00 [facility] Comment on above: Order Comment: Speci men Type: BLOOD SPECIMENOrdering Facility: [facility] Address: [address] [place] [address] Performed By: #### 5 7021-8 ####[facility] LABORATORYCLIA [id number] [address] Lymphocytes/100 WBC (Bld) 27.0 % Normal [facility] Comment on above: Order Comment: Speci men Type: BLOOD SPECIMENOrdering Facility: [facility] Address: [address] [place] [address] Performed By: #### 5 7021-8 ####[facility] LABORATORYCLIA [id number] [address] [place] MCH (RBC) [Entitic mass] 29.3 pg Normal 26.0-34.0 [facility] Comment on above: Order Comment: Speci men Type: BLOOD SPECIMENOrdering Facility: [facility] Address: [address] [place] [address] Performed By: #### 5 7021-8 ####[facility] LABORATORYCLIA [id number] [address] [place] MCHC (RBC) [Mass/Vol] 31.3 g/dL Normal 30.5-36.0 [facility] Comment on above: Order Comment: Speci men Type: BLOOD SPECIMENOrdering Facility: [facility] Address: [address] [place] [address] Performed By: #### 5 7021-8 ####AMRITA LABORATORYCLIA [id number] [place] [address] [place] MCV (RBC) [Entitic vol] 93.6 fL Normal 80.0-100.0 [facility] Comment on above: Order Comment: Speci men Type: BLOOD SPECIMENOrdering Facility: [facility] Address: [address] [place] [address] Performed By: #### 5 7021-8 ####AMRITA LABORATORYCLIA [id number] [place] [address] [place] Monocytes (Bld) [#/Vol] 0.84 10*3/uL Normal <0.87 [facility] Comment on above: Order Comment: Speci men Type: BLOOD SPECIMENOrdering Facility: [facility] Address: [address] [place] [address] Performed By: #### 5 7021-8 ####AMRITA LABORATORYCLIA [id number] [address] [place] Monocytes/100 WBC (Bld) 12.7 % Normal [facility] Comment on above: Order Comment: Speci men Type: BLOOD SPECIMENOrdering Facility: [facility] Address: [address] [place] [address] Performed By: #### 5 7021-8 ####AMRITA LABORATORYCLIA [id number] [place] [address] [place] Neutrophils (Bld) [#/Vol] 3.58 10*3/uL Normal 1.45-7.50 [facility] Comment on above: Order Comment: Speci men Type: BLOOD SPECIMENOrdering Facility: [facility] Address: [address] [place] [address] Performed By: #### 5 7021-8 ####AMRITA LABORATORYCLIA [id number] [place] [address] [place] Neutrophils/100 WBC (Bld) 54.3 % Normal [facility] Comment on above: Order Comment: Speci men Type: BLOOD SPECIMENOrdering Facility: [facility] Address: [address] [place] [address] Performed By: #### 5 7021-8 ####AMRITA LABORATORYCLIA [id number] [place] [address] [place] Nucleated RBC (Bld) [#/Vol] 10*3/uL Normal <0.01 [facility] Comment on above: Order Comment: Speci men Type: BLOOD SPECIMENOrdering Facility: [facility] Address: [address] [place] [address] Performed By: #### 5 7021-8 ####[facility] LABORATORYCLIA [id number] [place] [address] [place] Nucleated RBC/100 WBC (Bld) [Ratio] 0.0 /100 WBC Normal [facility] Comment on above: Order Comment: Speci men Type: BLOOD SPECIMENOrdering Facility: [facility] Address: [address] [place] [address] Performed By: #### 5 7021-8 ####AMRITA LABORATORYCLIA [id number] [address] [place] Platelet mean volume (Bld) [Entitic vol] 10.8 fL Normal 9.0-12.7 [facility] Comment on above: Order Comment: Speci men Type: BLOOD SPECIMENOrdering Facility: [facility] Address: [address] [place] [address] Performed By: #### 5 7021-8 ####[facility] LABORATORYCLIA [id number] [place] [address] [place] Platelets (Bld) [#/Vol] 187 10*3/uL Normal 150-400 [facility] Comment on above: Order Comment: Speci men Type: BLOOD SPECIMENOrdering Facility: [facility] Address: [address] [place] [address] Performed By: #### 5 7021-8 ####AMRITA LABORATORYCLIA [id number] [place] [address] [place] RBC (Bld) [#/Vol] 4.06 10*6/uL Low 4.20-6.00 [facility] Comment on above: Order Comment: Speci men Type: BLOOD SPECIMENOrdering Facility: [facility] Address: [address] [place] [address] Performed By: #### 5 7021-8 ####AMRITA LABORATORYCLIA [id number] [place] [address] [facility] [place] WBC (Bld) [#/Vol] 6.59 10*3/uL Normal 3.70-11.00 [facility] Comment on above: Order Comment: Speci men Type: BLOOD SPECIMENOrdering Facility: [facility] Address: [address] [place] [address] Performed By: #### 5 7021-8 ####[facility] LABORATORYCLIA [id number] [place] [address] [facility] CNDSon 06-23-2024 [facility]DS HNO ID: [id number] Author: LASHONDA DELGADO MD Service: Colorectal Author [...] Your Medications These medications were sent to [facility] - [place] [address] - [address] [facility] - [phone] [facility] [address] methocarbamol 500 mg tablet Future Appointments: Future Appointments Date Time Provider Department Center 07/05/2024 10:40 AM 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 APRN.SAFETY SPECIALIST [id number] [facility] You will receive a phone call from our clinic nurse to check in on you in 5-7 days from discharge before your follow up appointment. Signed by Physician: Lashonda Delgado MD Normal [facility] Magnesium SerPl-mCncon 06-23 Magnesium [Mass/Vol] 2.1 mg/dL Normal 1.7-2.3 [facility] Comment on above: Order Comment: Speci men Type: BLOOD SPECIMENOrdering Facility: [facility] Address: [address] [place] [address] Performed By: #### 2 4321-2, 26788-3, 2777-1 ####[facility] LABORATORYCLIA [id number] [place] [address] [place] Phosphate SerPl-mCncon 06-23 Phosphate [Mass/Vol] 3.2 mg/dL Normal 2.7-4.8 [facility] Comment on above: Order Comment: Speci men Type: BLOOD SPECIMENOrdering Facility: [facility] Address: [address] [place] [address] Performed By: #### 2 4321-2, 52313-6, 2776-05 ####AMRITA LABORATORYCLIA [id number] [place] [address] [place] Basic metabolic 2000 panelon 06-22-2024 Anion gap [Moles/Vol] 9 mmol/L Normal 8-15 [facility] Comment on above: Order Comment: Speci men Type: BLOOD SPECIMENOrdering Facility: [facility] Address: [address] [place] [address] Performed By: #### 2 4321-2, 2776-05, ####AMRITA LABORATORYCLIA [id number] [place] [address] [place] Calcium [Mass/Vol] 8.9 mg/dL Normal 8.5-10.2 [facility] Comment on above: Order Comment: Speci men Type: BLOOD SPECIMENOrdering Facility: [facility] Address: [address] [place] [address] Performed By: #### 2 4321-2, 2776-05, ####AMRITA LABORATORYCLIA [id number] [place] [address] [place] Chloride [Moles/Vol] 103 mmol/L Normal 98-107 [facility] Comment on above: Order Comment: Speci men Type: BLOOD SPECIMENOrdering Facility: [facility] Address: [address] [place] [address] Performed By: #### 2 4321-2, 2776-05, ####[facility] LABORATORYCLIA [id number] [place] [address] [place] CO2 [Moles/Vol] 24 mmol/L Normal 22-30 [facility] Comment on above: Order Comment: Speci men Type: BLOOD SPECIMENOrdering Facility: [facility] Address: [address] [place] [address] Performed By: #### 2 4321-2, 2777, ####RADCL[facility] LABORATORYCLIA [id number] [place] [address] [place] Creatinine [Mass/Vol] 0.93 mg/dL Normal 0.73-1.22 [facility] Comment on above: Order Comment: Speci men Type: BLOOD SPECIMENOrdering Facility: [facility] Address: [address] [place] [address] Performed By: #### 2 4321-2, 27711-21, ####RADCL[facility] LABORATORYCLIA [id number] [place] [address] [place] Creatinine and Glomerular filtration rate.predicted panel (S/P/Bld) 98 mL/min/1.73m??? Normal >=60 [facility] Comment on above: Order Comment: Speci men Type: BLOOD SPECIMENOrdering Facility: [facility] Address: [address] [place] [address] Result Comment: Dee mated Glomerular Filtration Rate [...] GFR. Performed By: #### 2 4321-2, 2777-, ####RADCL[facility] LABORATORYCLIA [id number] [place] [address] [place] Glucose [Mass/Vol] 107 mg/dL High 74-99 [facility] Comment on above: Order Comment: Ara men Type: BLOOD SPECIMENOrdering Facility: [facility] Address: [address] [place] [address] Result Comment: The [place] [employer] (ADA) provides guidance for cutoff [...] Standards of Medical Care in Diabetes 2016, [place] [employer]. Diabetes Care. 2016.39(Suppl 1). Performed By: #### 2 4321-2, 2776-05, ####RADCLIFF LABORATORYCLIA [id number] [place] [address] [place] Potassium [Moles/Vol] 4.6 mmol/L Normal 3.7-5.1 [facility] Comment on above: Order Comment: Ara powers Type: BLOOD SPECIMENOrdering Facility: [facility] Address: [address] [place] [id number] Performed By: #### 2 4321-2, 2776-05, ####RADCL[facility] LABORATORYCLIA [id number] [place] [address] [place] Sodium [Moles/Vol] 136 mmol/L Normal 136-144 [facility] Comment on above: Order Comment: Ara powers Type: BLOOD SPECIMENOrdering Facility: [facility] Address: [address] [place] [id number] Performed By: #### 2 4321-2, 2776-05, ####RADCLIFF LABORATORYCLIA [id number] [place] [address] [place] Urea nitrogen [Mass/Vol] 13 mg/dL Normal 9-24 [facility] Comment on above: Order Comment: rAa powers Type: BLOOD SPECIMENOrdering Facility: [facility] Address: [address] [place] [id number] Performed By: #### 2 4321-2, 2776-05, ####RADCL[facility] LABORATORYCLIA [id number] [place] [address] [place] CBC W Auto Differential pane l (Bld)on 06-22-2024 Basophils (Bld) [#/Vol] 0.03 10*3/uL Normal <0.11 [facility] Comment on above: Order Comment: Speci men Type: BLOOD SPECIMENOrdering Facility: [facility] Address: [address] [place] [address] Performed By: #### 5 7021-8 ####AMRITA LABORATORYCLIA [id number] [place] [address] [place] Basophils/100 WBC (Bld) 0.3 % Normal [facility] Comment on above: Order Comment: Speci men Type: BLOOD SPECIMENOrdering Facility: [facility] Address: [address] [place] [address] Performed By: #### 5 7021-8 ####AMRITA LABORATORYCLIA [id number] [place] [address] [place] Differential cell count method Nom (Bld) Auto Normal [facility] Comment on above: Order Comment: Speci men Type: BLOOD SPECIMENOrdering Facility: [facility] Address: [address] [place] [address] Performed By: #### 5 7021-8 ####AMRITA LABORATORYCLIA [id number] [place] [address] [place] Eosinophils (Bld) [#/Vol] 0.12 10*3/uL Normal <0.46 [facility] Comment on above: Order Comment: Speci men Type: BLOOD SPECIMENOrdering Facility: [facility] Address: [address] [place] [address] Performed By: #### 5 7021-8 ####AMRITA LABORATORYCLIA [id number] [place] [address] [place] Eosinophils/100 WBC (Bld) 1.4 % Normal [facility] Comment on above: Order Comment: Speci men Type: BLOOD SPECIMENOrdering Facility: [facility] Address: [address] [place] [address] Performed By: #### 5 7021-8 ####AMRITA LABORATORYCLIA [id number] [place] [address] [place] Erythrocyte distribution width (RBC) [Ratio] 14.6 % Normal 11.5-15.0 [facility] Comment on above: Order Comment: Speci men Type: BLOOD SPECIMENOrdering Facility: [facility] Address: [address] [place] [address] Performed By: #### 5 7021-8 ####AMRITA LABORATORYCLIA [id number] [address] [place] Hematocrit (Bld) [Volume fraction] 40.4 % Normal 39.0-51.0 [facility] Comment on above: Order Comment: Speci men Type: BLOOD SPECIMENOrdering Facility: [facility] Address: [address] [place] [address] Performed By: #### 5 7021-8 ####AMRITA LABORATORYCLIA [id number] [place] [address] [place] Hemoglobin (Bld) [Mass/Vol] 12.8 g/dL Low 13.0-17.0 [facility] Comment on above: Order Comment: Speci men Type: BLOOD SPECIMENOrdering Facility: [facility] Address: [address] [place] [address] Performed By: #### 5 7021-8 ####AMRITA LABORATORYCLIA [id number] [address] [place] Immature granulocytes (Bld) [#/Vol] 0.05 10*3/uL Normal <0.10 [facility] Comment on above: Order Comment: Speci men Type: BLOOD SPECIMENOrdering Facility: [facility] Address: [address] [place] [address] Performed By: #### 5 7021-8 ####AMRITA LABORATORYCLIA [id number] [address] [place] Immature granulocytes/100 WBC (Bld) 0.6 % Normal [facility] Comment on above: Order Comment: Speci men Type: BLOOD SPECIMENOrdering Facility: [facility] Address: [address] [place] [address] Performed By: #### 5 7021-8 ####[facility] LABORATORYCLIA [id number] [place] [address] [place] Lymphocytes (Bld) [#/Vol] 1.14 10*3/uL Normal 1.00-4.00 [facility] Comment on above: Order Comment: Speci men Type: BLOOD SPECIMENOrdering Facility: [facility] Address: [address] [place] [address] Performed By: #### 5 7021-8 ####[facility] LABORATORYCLIA [id number] [address] [place] Lymphocytes/100 WBC (Bld) 13.1 % Normal [facility] Comment on above: Order Comment: Speci men Type: BLOOD SPECIMENOrdering Facility: [facility] Address: [address] [place] [address] Performed By: #### 5 7021-8 ####[facility] LABORATORYCLIA [id number] [place] [address] [place] MCH (RBC) [Entitic mass] 29.5 pg Normal 26.0-34.0 [facility] Comment on above: Order Comment: Speci men Type: BLOOD SPECIMENOrdering Facility: [facility] Address: [address] [place] [address] Performed By: #### 5 7021-8 ####[facility] LABORATORYCLIA [id number] [address] [place] MCHC (RBC) [Mass/Vol] 31.7 g/dL Normal 30.5-36.0 [facility] Comment on above: Order Comment: Speci men Type: BLOOD SPECIMENOrdering Facility: [facility] Address: [address] [place] [address] Performed By: #### 5 7021-8 ####[facility] LABORATORYCLIA [id number] [address] [place] MCV (RBC) [Entitic vol] 93.1 fL Normal 80.0-100.0 [facility] Comment on above: Order Comment: Speci men Type: BLOOD SPECIMENOrdering Facility: [facility] Address: [address] [place] [address] Performed By: #### 5 7021-8 ####AMRITA LABORATORYCLIA [id number] [place] [address] [place] Monocytes (Bld) [#/Vol] 1.05 10*3/uL High <0.87 [facility] Comment on above: Order Comment: Speci men Type: BLOOD SPECIMENOrdering Facility: [facility] Address: [address] [place] [address] Performed By: #### 5 7021-8 ####AMRITA LABORATORYCLIA [id number] [place] [address] [place] Monocytes/100 WBC (Bld) 12.1 % Normal [facility] Comment on above: Order Comment: Speci men Type: BLOOD SPECIMENOrdering Facility: [facility] Address: [address] [place] [address] Performed By: #### 5 7021-8 ####AMR[facility] LABORATORYCLIA [id number] [place] [address] [place] Neutrophils (Bld) [#/Vol] 6.31 10*3/uL Normal 1.45-7.50 [facility] Comment on above: Order Comment: Speci men Type: BLOOD SPECIMENOrdering Facility: [facility] Address: [address] [place] [address] Performed By: #### 5 7021-8 ####AMRITA LABORATORYCLIA [id number] [place] [address] [place] Neutrophils/100 WBC (Bld) 72.5 % Normal [facility] Comment on above: Order Comment: Speci men Type: BLOOD SPECIMENOrdering Facility: [facility] Address: [address] [place] [address] Performed By: #### 5 7021-8 ####[facility] LABORATORYCLIA [id number] [place] [address] [place] Nucleated RBC (Bld) [#/Vol] 10*3/uL Normal <0.01 [facility] Comment on above: Order Comment: Speci men Type: BLOOD SPECIMENOrdering Facility: [facility] Address: [address] [place] [address] Performed By: #### 5 7021-8 ####[facility]CL[facility] LABORATORYCLIA [id number] [place] [address] [place] Nucleated RBC/100 WBC (Bld) [Ratio] 0.0 /100 WBC Normal [facility] Comment on above: Order Comment: Speci men Type: BLOOD SPECIMENOrdering Facility: [facility] Address: [address] [place] [address] Performed By: #### 5 7021-8 ####RADCL[facility] LABORATORYCLIA [id number] [place] [address] [place] Platelet mean volume (Bld) [Entitic vol] 10.7 fL Normal 9.0-12.7 [facility] Comment on above: Order Comment: Speci men Type: BLOOD SPECIMENOrdering Facility: [facility] Address: [address] [place] [address] Performed By: #### 5 7021-8 ####[facility]CL[facility] LABORATORYCLIA [id number] [place] [address] [place] Platelets (Bld) [#/Vol] 192 10*3/uL Normal 150-400 [facility] Comment on above: Order Comment: Speci men Type: BLOOD SPECIMENOrdering Facility: [facility] Address: [address] [place] [address] Performed By: #### 5 7021-8 ####RADCL[facility] LABORATORYCLIA [id number] [place] [address] [place] RBC (Bld) [#/Vol] 4.34 10*6/uL Normal 4.20-6.00 [facility] Comment on above: Order Comment: Speci men Type: BLOOD SPECIMENOrdering Facility: [facility] Address: [address] [place] [address] Performed By: #### 5 7021-8 ####RADCL[facility] LABORATORYCLIA [id number] [place] [address] [place] WBC (Bld) [#/Vol] 8.70 10*3/uL Normal 3.70-11.00 [facility] Comment on above: Order Comment: Speci men Type: BLOOD SPECIMENOrdering Facility: [facility] Address: [address] [place] [address] Performed By: #### 5 7021-8 ####[facility] LABORATORYCLIA [id number] [place] [address] [facility] Magnesium SerPl-mCncon 06-22 Magnesium [Mass/Vol] 2.1 mg/dL Normal 1.7-2.3 [facility] Comment on above: Order Comment: Speci men Type: BLOOD SPECIMENOrdering Facility: [facility] Address: [address] [place] [address] Performed By: #### 2 4321-2, 2777-1, 79183-1 ####[facility]CL[facility] LABORATORYCLIA [id number] [place] [address] [facility] Phosphate SerPl-mCncon 06-22 Phosphate [Mass/Vol] 3.8 mg/dL Normal 2.7-4.8 [facility] Comment on above: Order Comment: Speci men Type: BLOOD SPECIMENOrdering Facility: [facility] Address: [address] [place] [address] Performed By: #### 2 4321-2, 2777-1, 13241-5 ####[facility] LABORATORYCLIA [id number] [place] [address] [place] ANES POSTPROC EVALon 025 ANES POSTPROC EVAL HNO ID: [id number] Author: OLGA LIDIA WHITEHEAD MD Service: Anesthesiology [...] June 21, 2024 TIME: 5:30 PM CSN: [id number] [facility] ANES PRE-OPon 06-21-2024 ANES PRE-OP HNO ID: [id number] Author: YU BERRIOS MD Service: Anesthesiology Author [...] June 21, 2024 TIME: 3:43 PM CSN: [id number] Normal [facility] CBC panel Auto (Bld)on 06-21 Erythrocyte distribution width (RBC) [Ratio] 14.7 % Normal 11.5-15.0 [facility] Comment on above: Order Comment: Ara powers Type: BLOOD SPECIMENOrdering Facility: [facility] Address: [address] [place] [address] Performed By: #### 5 8410-2 ####[facility]CL[facility] LABORATORYCLIA [id number] [place] [address] [place] Hematocrit (Bld) [Volume fraction] 45.2 % Normal 39.0-51.0 [facility] Comment on above: Order Comment: Ara powers Type: BLOOD SPECIMENOrdering Facility: [facility] Address: [address] [place] [address] Performed By: #### 5 8410-2 ####[facility]CL[facility] LABORATORYCLIA [id number] [place] [address] [place] Hemoglobin (Bld) [Mass/Vol] 14.3 g/dL Normal 13.0-17.0 [facility] Comment on above: Order Comment: Speci men Type: BLOOD SPECIMENOrdering Facility: [facility] Address: [address] [place] [address] Performed By: #### 5 8410-2 ####[facility] LABORATORYCLIA [id number] [address] [place] [facility] MCH (RBC) [Entitic mass] 29.4 pg Normal 26.0-34.0 [facility] Comment on above: Order Comment: Speci men Type: BLOOD SPECIMENOrdering Facility: [facility] Address: [address] [place] [address] Performed By: #### 5 8410-2 ####[facility] LABORATORYCLIA [id number] [address] [place] MCHC (RBC) [Mass/Vol] 31.6 g/dL Normal 30.5-36.0 [facility] Comment on above: Order Comment: Speci men Type: BLOOD SPECIMENOrdering Facility: [facility] Address: [address] [place] [address] Performed By: #### 5 8410-2 ####[facility]CL[facility] LABORATORYCLIA [id number] [address] [place] MCV (RBC) [Entitic vol] 93.0 fL Normal 80.0-100.0 [facility] Comment on above: Order Comment: Speci men Type: BLOOD SPECIMENOrdering Facility: [facility] Address: [address] [place] [address] Performed By: #### 5 8410-2 ####[facility] LABORATORYCLIA [id number] [address] [place] Nucleated RBC (Bld) [#/Vol] 10*3/uL Normal <0.01 [facility] Comment on above: Order Comment: Speci men Type: BLOOD SPECIMENOrdering Facility: [facility] Address: [address] [place] [address] Performed By: #### 5 8410-2 ####[facility] LABORATORYCLIA [id number] [place] [address] [place] Platelet mean volume (Bld) [Entitic vol] 11.0 fL Normal 9.0-12.7 [facility] Comment on above: Order Comment: Speci men Type: BLOOD SPECIMENOrdering Facility: [facility] Address: [address] [place] [address] Performed By: #### 5 8410-2 ####AMR[facility] LABORATORYCLIA [id number] [place] [address] [place] Platelets (Bld) [#/Vol] 222 10*3/uL Normal 150-400 [facility] Comment on above: Order Comment: Speci men Type: BLOOD SPECIMENOrdering Facility: [facility] Address: [address] [place] [address] Performed By: #### 5 8410-2 ####AMR[facility] LABORATORYCLIA [id number] [place] [address] [place] RBC (Bld) [#/Vol] 4.86 10*6/uL Normal 4.20-6.00 [facility] Comment on above: Order Comment: Speci men Type: BLOOD SPECIMENOrdering Facility: [facility] Address: [address] [place] [address] Performed By: #### 5 8410-2 ####[facility] LABORATORYCLIA [id number] [place] [address] [place] WBC (Bld) [#/Vol] 7.87 10*3/uL Normal 3.70-11.00 [facility] Comment on above: Order Comment: Speci men Type: BLOOD SPECIMENOrdering Facility: [facility] Address: [address] [place] [address] Performed By: #### 5 8410-2 ####[facility] LABORATORYCLIA [id number] [place] [address] [facility] [place] Rosemarie 06-21-2024 [facility] Telephone ([facility]) PIPER RODRÍGUEZ Marychuy ([id number]) 1970 M Date Time Provider Department 06/21/24 DONIS CARIAS [facility] During your visit today, we recorded [...] for his appointment tomorrow vs going to [place]. Ultimately, he thinks he will go to [place]. Allergies As of Date: 06/21/2024 (No [...] Status:Closed by JOCELYN CANTRELL on 06/21/24 Normal [facility] Comprehensive metabolic 2000 panelon 06-21-2024 Albumin [Mass/Vol] 4.2 g/dL Normal 3.9-4.9 [facility] Comment on above: Order Comment: Speci men Type: BLOOD SPECIMENOrdering Facility: [facility] Address: [address] [place] [address] Performed By: #### 1 23-9, ####[facility] LABORATORYCLIA [id number] [place] [address] [place] ALP [Catalytic activity/Vol] 72 U/L Normal 38-113 [facility] Comment on above: Order Comment: Speci men Type: BLOOD SPECIMENOrdering Facility: [facility] Address: [address] [place] [address] Performed By: #### 1 23-9, ####[facility] LABORATORYCLIA [id number] [place] [address] [place] ALT [Catalytic activity/Vol] 91 U/L High 10-54 [facility] Comment on above: Order Comment: Speci men Type: BLOOD SPECIMENOrdering Facility: [facility] Address: [address] [place] [address] Performed By: #### 1 23-9, ####RADCL[facility] LABORATORYCLIA [id number] [place] [id number] [place] Anion gap [Moles/Vol] 11 mmol/L Normal 8-15 [facility] Comment on above: Order Comment: Speci men Type: BLOOD SPECIMENOrdering Facility: [facility] Address: [address] [place] [address] Performed By: #### 1 23-9, ####AMRITA LABORATORYCLIA [id number] [place] [id number] [place] AST [Catalytic activity/Vol] 58 U/L High 14-40 [facility] Comment on above: Order Comment: Speci men Type: BLOOD SPECIMENOrdering Facility: [facility] Address: [address] [place] [address] Performed By: #### 1 23-9, ####AMRITA LABORATORYCLIA [id number] [place] [address] [place] [place] Bilirubin [Mass/Vol] 0.3 mg/dL Normal 0.2-1.3 [facility] Comment on above: Order Comment: Speci men Type: BLOOD SPECIMENOrdering Facility: [facility] Address: [address] [place] [address] Performed By: #### 1 23-9, ####AMRITA LABORATORYCLIA [id number] [place] [address] [place] Calcium [Mass/Vol] 9.6 mg/dL Normal 8.5-10.2 [facility] Comment on above: Order Comment: Speci men Type: BLOOD SPECIMENOrdering Facility: [facility] Address: [address] [place] [address] Performed By: #### 1 23-9, ####AMRITA LABORATORYCLIA [id number] [place] [address] [place] Chloride [Moles/Vol] 99 mmol/L Normal 98-107 [facility] Comment on above: Order Comment: Speci men Type: BLOOD SPECIMENOrdering Facility: [facility] Address: [address] [place] [address] Performed By: #### 1 23-9, 61848-6 ####AMRITA LABORATORYCLIA [id number] [place] [address] [place] CO2 [Moles/Vol] 28 mmol/L Normal 22-30 [facility] Comment on above: Order Comment: Speci men Type: BLOOD SPECIMENOrdering Facility: [facility] Address: [address] [place] [address] Performed By: #### 1 9123-9, 65729-8 ####[facility] LABORATORYCLIA [id number] [place] [address] [place] Creatinine [Mass/Vol] 0.99 mg/dL Normal 0.73-1.22 [facility] Comment on above: Order Comment: Speci men Type: BLOOD SPECIMENOrdering Facility: [facility] Address: [address] [place] [address] Performed By: #### 1 9123-9, 92852-7 ####[facility] LABORATORYCLIA [id number] [place] [address] [facility] Creatinine and Glomerular filtration rate.predicted panel (S/P/Bld) 91 mL/min/1.73m??? Normal >=60 [facility] Comment on above: Order Comment: Speci men Type: BLOOD SPECIMENOrdering Facility: [facility] Address: [address] [place] [address] Result Comment: Dee mated Glomerular Filtration Rate [...] actual GFR. Performed By: #### 1 9123-9, 03026-3 ####[facility] LABORATORYCLIA [id number] [place] [address] [place] Glucose [Mass/Vol] 102 mg/dL High 74-99 [facility] Comment on above: Order Comment: Speci men Type: BLOOD SPECIMENOrdering Facility: [facility] Address: [address] [place] [address] Result Comment: The [place] [employer] (ADA) provides guidance for cutoff [...] Standards of Medical Care in Diabetes 2016, [place] [employer]. Diabetes Care. 2016.39(Suppl 1). Performed By: #### 1 9123-9, ####AMRITA LABORATORYCLIA [id number] [place] [address] [place] Potassium [Moles/Vol] 4.3 mmol/L Normal 3.7-5.1 [facility] Comment on above: Order Comment: Speci men Type: BLOOD SPECIMENOrdering Facility: [facility] Address: [address] [place] [address] Performed By: #### 1 239, ####AMRITA LABORATORYCLIA [id number] [place] [address] [place] Protein [Mass/Vol] 8.0 g/dL Normal 6.3-8.0 [facility] Comment on above: Order Comment: Speci men Type: BLOOD SPECIMENOrdering Facility: [facility] Address: [address] [place] [address] Performed By: #### 1 239, ####[facility] LABORATORYCLIA [id number] [place] [address] [place] Sodium [Moles/Vol] 138 mmol/L Normal 136-144 [facility] Comment on above: Order Comment: Speci men Type: BLOOD SPECIMENOrdering Facility: [facility] Address: [address] [place] [address] Performed By: #### 1 239, 20193-1 ####[facility] LABORATORYCLIA [id number] [place] [address] [facility] Urea nitrogen [Mass/Vol] 14 mg/dL Normal 9-24 [facility] Comment on above: Order Comment: Speci men Type: BLOOD SPECIMENOrdering Facility: [facility] Address: [address] [place] [address] Performed By: #### 1 9123-9, 12259-0 ####RADCLIFF LABORATORYCLIA [id number] [place] [address] [facility] ED NOTEon 06-21-2024 ED NOTE HNO ID: [id number] Author: JOSÉ MIGUEL LARA RN Service: ? Author Type: Registered Nurse Type: ED Notes Filed: 06/21/2024 13:48 Note Text: Bed: 55-ED Expected date: Expected time: Means of arrival: Comments: triage Normal [facility] ED PROV NOTEon 06-21-2024 ED PROV NOTE HNO ID: [id number] Author: GINO ANGEL MD Service: Emergency Medicine [...] on June [address] Carias at [facility]. States had been doing well. States that yesterday the wound opened minimally. He presented to [facility] for evaluation. States the physician [...] Normal ECG Confirmed by MD ANGEL JAMES ([id number]) on 06/21/2024 2:14:56 PM Procedures ED Course [...] at bed (more content not included)... Normal [facility] ED Triage Noteon 06-21-2024 ED Triage Note HNO ID: [id number] Author: ETHAN QUINTERO DO Service: Emergency Medicine [...] HANDP as well as MDM SIGNATURE: Ethan Artis MichelehoustonDO Normal [facility] EKGon 06-21-2024 Electrocardiogram Ventricular Rate : 4 7 BPM Atrial Rate : 48 BPM P-R Interval : 173 ms QRS Duration : 105 ms Q-T Interval : 447 ms QTC Calculation(Bazett) : 396 ms Calculated P Many : 44 degrees Calculated R Many : 40 degrees Calculated T Many : 58 degrees Sinus bradycardia Otherwise Normal ECG Confirmed by MD ANGEL JAMES ([id number]) on 06/21/2024 2:14:56 PM NAME : PIPER RODRÍGUEZ PID : [id number] : 1970 Gender : Male Race : [...] Referred By : , Acquired by : [id number], [facility] HISTORY PHYSICALon HISTORY PHYSICAL HNO ID: [id number] Author: MAIKEL JUSTICE MD Service: Colorectal Author [...] contents. They were worried so presented to [place] [facility]. Pt's showed me a photo of [...] concerns and was told to present to [place] [facility] for further evaluation. Per pt has [...] DATE: June 21, 2024 TIME: 2:56 PM [facility] Magnesium SerPl-mCncon 06-21 Magnesium [Mass/Vol] 2.3 mg/dL Normal 1.7-2.3 [facility] Comment on above: Order Comment: Speci men Type: BLOOD SPECIMENOrdering Facility: [facility] Address: [address] [place] [address] Performed By: #### 1 9123-9, 36749-6 ####RADCLIFF LABORATORYCLIA [id number] [address] NURSING PROGon 06-21-2024 NURSING PROG HNO ID: [id number] Author: OLYA SIEGEL RN Service: Nursing Author Type: Registered Nurse Type: Nursing Progress Note Filed: 06/21/2024 19:56 Note Text: Transfer Note: PATIENT NAME: Piper Rodríguez Patient Location: [place] [address]/[place] [address] Room: [place] [address] Patient transferred into room/unit [facility] in stable condition. Actions taken: Room oriented, call light in reach, family at beside. 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 Telephone ([facility]) PIPER RODRÍGUEZ ([id number]) 1970 Date Time Provider Department 06/20/24 DONIS CARIAS [facility] During your visit today, we recorded the following information about you: Maura Casiano 06/20/2024 3:02 PM Signed Patient calling concerned about surgical incision. She states it has opened up. Asking to speak to nurse to find out if they should go to local ER # [phone] Jocelyn Cantrell RN 06/20/2024 3:17 PM Signed [...] Encounter Status:Closed by JOCELYN CANTRELL on 06/20/24 [facility] CNCOon 06-19-2024 CNCO Letter Text [facility] CNPNon 06-19-2024 CNPN Telephone ([facility]) PIPER RODRÍGUEZ ([id number]) 1970 M Date Time Provider Department 06/19/24 DONIS CARIAS [facility] During your visit today, we recorded the following information about you: Maura Casiano 06/19/2024 1:29 PM Signed Patient had surgery on 06/14/24. He is asking to speak to a nurse about his restrictions and what he can and cannot do # [phone] Jocelyn Cantrell RN 06/19/2024 1:48 PM Signed [...] Fully Assessed Reason for Visit: Patient Question [6198] Prescriptions as of 06/19/2024 - acetaminophen (TYLENOL) [...] Status:Closed by JOCELYN CANTRELL on 06/19/24 Normal [facility] Basic metabolic 2000 panelon 06-16-2024 Anion gap [Moles/Vol] 12 mmol/L Normal 8-15 [facility] Comment on above: Order Comment: Speci men Type: BLOOD SPECIMENOrdering Facility: [facility] Address: [address] [place] [address] Performed By: #### 2 4321-2 ####AMRITA LABORATORYCLIA [id number] [place] [address] [place] Calcium [Mass/Vol] 8.9 mg/dL Normal 8.5-10.2 [facility] Comment on above: Order Comment: Speci men Type: BLOOD SPECIMENOrdering Facility: [facility] Address: [address] [place] [address] Performed By: #### 2 4321-2 ####[facility] LABORATORYCLIA [id number] [place] [address] [place] Chloride [Moles/Vol] 103 mmol/L Normal 98-107 [facility] Comment on above: Order Comment: Speci men Type: BLOOD SPECIMENOrdering Facility: [facility] Address: [address] [place] [address] Performed By: #### 2 4321-2 ####[facility] LABORATORYCLIA [id number] [place] [address] [place] CO2 [Moles/Vol] 22 mmol/L Normal 22-30 [facility] Comment on above: Order Comment: Speci men Type: BLOOD SPECIMENOrdering Facility: [facility] Address: [address] [place] [address] Performed By: #### 2 4321-2 ####[facility] LABORATORYCLIA [id number] [place] [address] [place] Creatinine [Mass/Vol] 0.90 mg/dL Normal 0.73-1.22 [facility] Comment on above: Order Comment: Speci men Type: BLOOD SPECIMENOrdering Facility: [facility] Address: [address] [place] [address] Performed By: #### 2 4321-2 ####[facility] LABORATORYCLIA [id number] [place] [address] [facility] [place] Creatinine and Glomerular filtration rate.predicted panel (S/P/Bld) 102 mL/min/1.73m??? Normal >=60 [facility] Comment on above: Order Comment: Speci men Type: BLOOD SPECIMENOrdering Facility: [facility] Address: [address] [place] [address] Result Comment: Dee mated Glomerular Filtration Rate [...] Performed By: #### 2 4321-2 ####AMRITA LABORATORYCLIA [id number] [place] [address] [place] Glucose [Mass/Vol] 162 mg/dL High 74-99 [facility] Comment on above: Order Comment: Ara powers Type: BLOOD SPECIMENOrdering Facility: [facility] Address: [address] [place] [address] Result Comment: The [place] Diabetes [employer] (ADA) provides guidance for cutoff [...] Standards of Medical Care in Diabetes 2016, [place] [employer]. Diabetes Care. 2016.39(Suppl 1). Performed By: #### 2 4321-2 ####AMRITA LABORATORYCLIA [id number] [place] [address] [place] Potassium [Moles/Vol] 4.4 mmol/L Normal 3.7-5.1 [facility] Comment on above: Order Comment: Ara powers Type: BLOOD SPECIMENOrdering Facility: [facility] Address: [address] [place] [address] Performed By: #### 2 4321-2 ####AMRITA LABORATORYCLIA [id number] [place] [address] [place] Sodium [Moles/Vol] 137 mmol/L Normal 136-144 [facility] Comment on above: Order Comment: Ara powers Type: BLOOD SPECIMENOrdering Facility: [facility] Address: [address] [place] [address] Performed By: #### 2 4321-2 ####AMRITA LABORATORYCLIA [id number] [place] [address] [place] [facility] Urea nitrogen [Mass/Vol] 10 mg/dL Normal 02-14 [facility] Comment on above: Order Comment: Speci men Type: BLOOD SPECIMENOrdering Facility: [facility] Address: [address] [place] [address] Performed By: #### 2 4321-2 ####AMRITA LABORATORYCLIA [id number] [place] [address] [place] CBC W Auto Differential pane l (Bld)on 06-16-2024 Basophils (Bld) [#/Vol] 0.04 10*3/uL Normal <0.11 [facility] Comment on above: Order Comment: Speci men Type: BLOOD SPECIMENOrdering Facility: [facility] Address: [address] [place] [address] Performed By: #### 5 7021-8 ####[facility] LABORATORYCLIA [id number] [place] [address] [place] Basophils/100 WBC (Bld) 0.6 % Normal [facility] Comment on above: Order Comment: Speci men Type: BLOOD SPECIMENOrdering Facility: [facility] Address: [address] [place] [address] Performed By: #### 5 7021-8 ####AMRITA LABORATORYCLIA [id number] [place] [address] [place] [facility] Differential cell count method Nom (Bld) Auto Normal [facility] Comment on above: Order Comment: Speci men Type: BLOOD SPECIMENOrdering Facility: [facility] Address: [address] [place] [address] Performed By: #### 5 7021-8 ####[facility] LABORATORYCLIA [id number] [place] [address] [place] Eosinophils (Bld) [#/Vol] 0.16 10*3/uL Normal <0.46 [facility] Comment on above: Order Comment: Speci men Type: BLOOD SPECIMENOrdering Facility: [facility] Address: [address] [place] [address] Performed By: #### 5 7021-8 ####[facility] LABORATORYCLIA [id number] [place] [address] [place] Eosinophils/100 WBC (Bld) 2.4 % Normal [facility] Comment on above: Order Comment: Speci men Type: BLOOD SPECIMENOrdering Facility: [facility] Address: [address] [place] [address] Performed By: #### 5 7021-8 ####[facility] LABORATORYCLIA [id number] [place] [address] [place] Erythrocyte distribution width (RBC) [Ratio] 15.6 % High 11.5-15.0 [facility] Comment on above: Order Comment: Speci men Type: BLOOD SPECIMENOrdering Facility: [facility] Address: [address] [place] [address] Performed By: #### 5 7021-8 ####AMRITA LABORATORYCLIA [id number] [place] [address] [place] Hematocrit (Bld) [Volume fraction] 44.0 % Normal 39.0-51.0 [facility] Comment on above: Order Comment: Speci men Type: BLOOD SPECIMENOrdering Facility: [facility] Address: [address] [place] [address] Performed By: #### 5 7021-8 ####AMRITA LABORATORYCLIA [id number] [place] [address] [place] Hemoglobin (Bld) [Mass/Vol] 13.8 g/dL Normal 13.0-17.0 [facility] Comment on above: Order Comment: Speci men Type: BLOOD SPECIMENOrdering Facility: [facility] Address: [address] [place] [address] Performed By: #### 5 7021-8 ####[facility] LABORATORYCLIA [id number] [place] [address] [place] Immature granulocytes (Bld) [#/Vol] 0.03 10*3/uL Normal <0.10 [facility] Comment on above: Order Comment: Speci men Type: BLOOD SPECIMENOrdering Facility: [facility] Address: [address] [place] [address] Performed By: #### 5 7021-8 ####[facility] LABORATORYCLIA [id number] [address] Immature granulocytes/100 WBC (Bld) 0.5 % Normal [facility] Comment on above: Order Comment: Speci men Type: BLOOD SPECIMENOrdering Facility: [facility] Address: [address] [place] [address] Performed By: #### 5 7021-8 ####[facility] LABORATORYCLIA [id number] [place] [address] [place] Lymphocytes (Bld) [#/Vol] 1.23 10*3/uL Normal 1.00-4.00 [facility] Comment on above: Order Comment: Speci men Type: BLOOD SPECIMENOrdering Facility: [facility] Address: [address] [place] [address] Performed By: #### 5 7021-8 ####[facility] LABORATORYCLIA [id number] [address] [place] [facility] Lymphocytes/100 WBC (Bld) 18.8 % Normal [facility] Comment on above: Order Comment: Speci men Type: BLOOD SPECIMENOrdering Facility: [facility] Address: [address] [place] [address] Performed By: #### 5 7021-8 ####AMRITA LABORATORYCLIA [id number] [place] [address] [place] MCH (RBC) [Entitic mass] 29.9 pg Normal 26.0-34.0 [facility] Comment on above: Order Comment: Speci men Type: BLOOD SPECIMENOrdering Facility: [facility] Address: [address] [place] [address] Performed By: #### 5 7021-8 ####[facility] LABORATORYCLIA [id number] [address] [place] MCHC (RBC) [Mass/Vol] 31.4 g/dL Normal 30.5-36.0 [facility] Comment on above: Order Comment: Speci men Type: BLOOD SPECIMENOrdering Facility: [facility] Address: [address] [place] [address] Performed By: #### 5 7021-8 ####AMRITA LABORATORYCLIA [id number] [place] [address] [place] MCV (RBC) [Entitic vol] 95.4 fL Normal 80.0-100.0 [facility] Comment on above: Order Comment: Speci men Type: BLOOD SPECIMENOrdering Facility: [facility] Address: [address] [place] [address] Performed By: #### 5 7021-8 ####[facility] LABORATORYCLIA [id number] [address] [place] Monocytes (Bld) [#/Vol] 0.76 10*3/uL Normal <0.87 [facility] Comment on above: Order Comment: Speci men Type: BLOOD SPECIMENOrdering Facility: [facility] Address: [address] [place] [address] Performed By: #### 5 7021-8 ####[facility] LABORATORYCLIA [id number] [address] [place] Monocytes/100 WBC (Bld) 11.6 % Normal [facility] Comment on above: Order Comment: Speci men Type: BLOOD SPECIMENOrdering Facility: [facility] Address: [address] [place] [address] Performed By: #### 5 7021-8 ####[facility] LABORATORYCLIA [id number] [place] [address] [place] Neutrophils (Bld) [#/Vol] 4.32 10*3/uL Normal 1.45-7.50 [facility] Comment on above: Order Comment: Speci men Type: BLOOD SPECIMENOrdering Facility: [facility] Address: [address] [place] [address] Performed By: #### 5 7021-8 ####[facility] LABORATORYCLIA [id number] [place] [address] [place] Neutrophils/100 WBC (Bld) 66.1 % Normal [facility] Comment on above: Order Comment: Speci men Type: BLOOD SPECIMENOrdering Facility: [facility] Address: [address] [place] [address] Performed By: #### 5 7021-8 ####AMRITA LABORATORYCLIA [id number] [place] [address] [place] Nucleated RBC (Bld) [#/Vol] 10*3/uL Normal <0.01 [facility] Comment on above: Order Comment: Speci men Type: BLOOD SPECIMENOrdering Facility: [facility] Address: [address] [place] [address] Performed By: #### 5 7021-8 ####[facility] LABORATORYCLIA [id number] [place] [address] [place] Nucleated RBC/100 WBC (Bld) [Ratio] 0.0 /100 WBC Normal [facility] Comment on above: Order Comment: Speci men Type: BLOOD SPECIMENOrdering Facility: [facility] Address: [address] [place] [address] Performed By: #### 5 7021-8 ####AMRITA LABORATORYCLIA [id number] [place] [address] [place] Platelet mean volume (Bld) [Entitic vol] 11.2 fL Normal 9.0-12.7 [facility] Comment on above: Order Comment: Speci men Type: BLOOD SPECIMENOrdering Facility: [facility] Address: [address] [place] [address] Performed By: #### 5 7021-8 ####AMRITA LABORATORYCLIA [id number] [place] [address] [place] Platelets (Bld) [#/Vol] 191 10*3/uL Normal 150-400 [facility] Comment on above: Order Comment: Speci men Type: BLOOD SPECIMENOrdering Facility: [facility] Address: [address] [place] [address] Performed By: #### 5 7021-8 ####AMRITA LABORATORYCLIA [id number] [place] [address] [place] RBC (Bld) [#/Vol] 4.61 10*6/uL Normal 4.20-6.00 [facility] Comment on above: Order Comment: Ara gio Type: BLOOD SPECIMENOrdering Facility: [facility] Address: [address] [place] [address] Performed By: #### 5 7021-8 ####AMRITA LABORATORYCLIA [id number] [place] [address] [facility] WBC (Bld) [#/Vol] 6.54 10*3/uL Normal 3.70-11.00 [facility] Comment on above: Order Comment: Ara gio Type: BLOOD SPECIMENOrdering Facility: [facility] Address: [address] [place] [address] Performed By: #### 5 7021-8 ####[facility] LABORATORYCLIA [id number] [address] CNDSon 06-16-2024 [facility]DS HNO ID: [id number] Author: DONIS CARIAS MD Service: Colorectal Author [...] which included preparing to see the patient, [id number] patient care, completing clinical documentation, obtaining and/or reviewing separately obtained history, performing a medically appropriate examination, and care coordination (not separately reported). SIGNATURE: 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 APRN.SAFETY SPECIALIST DATE: June 16, 2024 (more content not included)... Normal [facility] Basic metabolic 2000 panelon 06-15-2024 Anion gap [Moles/Vol] 13 mmol/L Normal 8-15 [facility] Comment on above: Order Comment: Speci gio Type: BLOOD SPECIMENOrdering Facility: [facility] Address: [address] [place] [address] Performed By: #### 2 4321-2 ####[facility] LABORATORYCLIA [id number] [place] [address] [place] Calcium [Mass/Vol] 8.9 mg/dL Normal 8.5-10.2 [facility] Comment on above: Order Comment: Speci men Type: BLOOD SPECIMENOrdering Facility: [facility] Address: [address] [place] [address] Performed By: #### 2 4321-2 ####[facility]CL[facility] LABORATORYCLIA [id number] [place] [address] [place] Chloride [Moles/Vol] 100 mmol/L Normal 98-107 [facility] Comment on above: Order Comment: Speci men Type: BLOOD SPECIMENOrdering Facility: [facility] Address: [facility] [place] [address] Performed By: #### 2 4321-2 ####[facility]CL[facility] LABORATORYCLIA [id number] [place] [address] [place] CO2 [Moles/Vol] 21 mmol/L Low 22-30 [facility] Comment on above: Order Comment: Speci men Type: BLOOD SPECIMENOrdering Facility: [facility] Address: [facility] [place] [address] Performed By: #### 2 4321-2 ####RADCL[facility] LABORATORYCLIA [id number] [place] [address] [place] Creatinine [Mass/Vol] 1.25 mg/dL High 0.73-1.22 [facility] Comment on above: Order Comment: Speci men Type: BLOOD SPECIMENOrdering Facility: [facility] Address: [address] [place] [address] Performed By: #### 2 4321-2 ####[facility]CL[facility] LABORATORYCLIA [id number] [place] [address] [place] Creatinine and Glomerular filtration rate.predicted panel (S/P/Bld) 69 mL/min/1.73m??? Normal >=60 [facility] Comment on above: Order Comment: Speci men Type: BLOOD SPECIMENOrdering Facility: [facility] Address: [address] [place] [address] Result Comment: Dee mated Glomerular Filtration Rate [...] Performed By: #### 2 4321-2 ####AMRITA LABORATORYCLIA [id number] [place] [address] [place] Glucose [Mass/Vol] 105 mg/dL High 74-99 [facility] Comment on above: Order Comment: Ara powers Type: BLOOD SPECIMENOrdering Facility: [facility] Address: [address] [place] [address] Result Comment: The [place] [employer] (ADA) provides guidance for cutoff [...] Standards of Medical Care in Diabetes 2016, [place] [employer]. Diabetes Care. 2016.39(Suppl 1). Performed By: #### 2 4321-2 ####AMR[facility] LABORATORYCLIA [id number] [place] [address] [place] Potassium [Moles/Vol] 4.8 mmol/L Normal 3.7-5.1 [facility] Comment on above: Order Comment: Ara powers Type: BLOOD SPECIMENOrdering Facility: [facility] Address: [address] [place] [address] Performed By: #### 2 4321-2 ####AMRITA LABORATORYCLIA [id number] [place] [address] [place] Sodium [Moles/Vol] 134 mmol/L Low 136-144 [facility] Comment on above: Order Comment: Speci men Type: BLOOD SPECIMENOrdering Facility: [facility] Address: [address] [place] [address] Performed By: #### 2 4321-2 ####[facility] LABORATORYCLIA [id number] [place] [address] [place] Urea nitrogen [Mass/Vol] 19 mg/dL Normal 9-24 [facility] Comment on above: Order Comment: Speci men Type: BLOOD SPECIMENOrdering Facility: [facility] Address: [address] [place] [address] Performed By: #### 2 4321-2 ####[facility]CL[facility] LABORATORYCLIA [id number] [place] [address] [place] CBC W Auto Differential pane l (Bld)on 06-15-2024 Basophils (Bld) [#/Vol] 0.03 10*3/uL Normal <0.11 [facility] Comment on above: Order Comment: Speci men Type: BLOOD SPECIMENOrdering Facility: [facility] Address: [address] [place] [address] Performed By: #### 5 7021-8 ####[facility] LABORATORYCLIA [id number] [address] [place] Basophils/100 WBC (Bld) 0.3 % Normal [facility] Comment on above: Order Comment: Speci men Type: BLOOD SPECIMENOrdering Facility: [facility] Address: [address] [place] [address] Performed By: #### 5 7021-8 ####[facility] LABORATORYCLIA [id number] [place] [address] [place] Differential cell count method Nom (Bld) Auto Normal [facility] Comment on above: Order Comment: Speci men Type: BLOOD SPECIMENOrdering Facility: [facility] Address: [address] [place] [address] Performed By: #### 5 7021-8 ####AMRITA LABORATORYCLIA [id number] [place] [address] [place] Eosinophils (Bld) [#/Vol] 10*3/uL Normal <0.46 [facility] Comment on above: Order Comment: Speci men Type: BLOOD SPECIMENOrdering Facility: [facility] Address: [address] [place] [address] Performed By: #### 5 7021-8 ####AMRITA LABORATORYCLIA [id number] [address] [place] Eosinophils/100 WBC (Bld) 0.2 % Normal [facility] Comment on above: Order Comment: Speci men Type: BLOOD SPECIMENOrdering Facility: [facility] Address: [address] [place] [address] Performed By: #### 5 7021-8 ####AMRITA LABORATORYCLIA [id number] [address] [place] Erythrocyte distribution width (RBC) [Ratio] 15.5 % High 11.5-15.0 [facility] Comment on above: Order Comment: Speci men Type: BLOOD SPECIMENOrdering Facility: [facility] Address: [address] [place] [address] Performed By: #### 5 7021-8 ####AMRITA LABORATORYCLIA [id number] [address] [place] Hematocrit (Bld) [Volume fraction] 41.5 % Normal 39.0-51.0 [facility] Comment on above: Order Comment: Speci men Type: BLOOD SPECIMENOrdering Facility: [facility] Address: [address] [place] [address] Performed By: #### 5 7021-8 ####[facility] LABORATORYCLIA [id number] [address] [place] Hemoglobin (Bld) [Mass/Vol] 13.8 g/dL Normal 13.0-17.0 [facility] Comment on above: Order Comment: Speci men Type: BLOOD SPECIMENOrdering Facility: [facility] Address: [address] [place] [address] Performed By: #### 5 7021-8 ####[facility] LABORATORYCLIA [id number] [place] [address] [place] Immature granulocytes (Bld) [#/Vol] 0.06 10*3/uL Normal <0.10 [facility] Comment on above: Order Comment: Speci men Type: BLOOD SPECIMENOrdering Facility: [facility] Address: [address] [place] [address] Performed By: #### 5 7021-8 ####[facility] LABORATORYCLIA [id number] [address] [place] Immature granulocytes/100 WBC (Bld) 0.6 % Normal [facility] Comment on above: Order Comment: Speci men Type: BLOOD SPECIMENOrdering Facility: [facility] Address: [address] [place] [address] Performed By: #### 5 7021-8 ####[facility] LABORATORYCLIA [id number] [place] [address] [place] Lymphocytes (Bld) [#/Vol] 1.01 10*3/uL Normal 1.00-4.00 [facility] Comment on above: Order Comment: Speci men Type: BLOOD SPECIMENOrdering Facility: [facility] Address: [address] [place] [address] Performed By: #### 5 7021-8 ####[facility] LABORATORYCLIA [id number] [address] [place] Lymphocytes/100 WBC (Bld) 10.3 % Normal [facility] Comment on above: Order Comment: Speci men Type: BLOOD SPECIMENOrdering Facility: [facility] Address: [address] [place] [address] Performed By: #### 5 7021-8 ####[facility] LABORATORYCLIA [id number] [place] [address] [place] MCH (RBC) [Entitic mass] 30.6 pg Normal 26.0-34.0 [facility] Comment on above: Order Comment: Speci men Type: BLOOD SPECIMENOrdering Facility: [facility] Address: [address] [place] [address] Performed By: #### 5 7021-8 ####AMRITA LABORATORYCLIA [id number] [place] [address] [place] MCHC (RBC) [Mass/Vol] 33.3 g/dL Normal 30.5-36.0 [facility] Comment on above: Order Comment: Speci men Type: BLOOD SPECIMENOrdering Facility: [facility] Address: [address] [place] [address] Performed By: #### 5 7021-8 ####[facility] LABORATORYCLIA [id number] [place] [address] [place] MCV (RBC) [Entitic vol] 92.0 fL Normal 80.0-100.0 [facility] Comment on above: Order Comment: Speci men Type: BLOOD SPECIMENOrdering Facility: [facility] Address: [address] [place] [address] Performed By: #### 5 7021-8 ####AM[facility] LABORATORYCLIA [id number] [place] [address] [place] Monocytes (Bld) [#/Vol] 1.07 10*3/uL High <0.87 [facility] Comment on above: Order Comment: Speci men Type: BLOOD SPECIMENOrdering Facility: [facility] Address: [address] [place] [address] Performed By: #### 5 7021-8 ####AM[facility] LABORATORYCLIA [id number] [address] [place] Monocytes/100 WBC (Bld) 10.9 % Normal [facility] Comment on above: Order Comment: Speci men Type: BLOOD SPECIMENOrdering Facility: [facility] Address: [address] [place] [address] Performed By: #### 5 7021-8 ####AM[facility] LABORATORYCLIA [id number] [place] [address] [place] Neutrophils (Bld) [#/Vol] 7.59 10*3/uL High 1.45-7.50 [facility] Comment on above: Order Comment: Speci men Type: BLOOD SPECIMENOrdering Facility: [facility] Address: [address] [place] [address] Performed By: #### 5 7021-8 ####AMR[facility] LABORATORYCLIA [id number] [place] [address] [place] Neutrophils/100 WBC (Bld) 77.7 % Normal [facility] Comment on above: Order Comment: Speci men Type: BLOOD SPECIMENOrdering Facility: [facility] Address: [address] [place] [address] Performed By: #### 5 7021-8 ####AMR[facility] LABORATORYCLIA [id number] [place] [address] [place] Nucleated RBC (Bld) [#/Vol] 10*3/uL Normal <0.01 [facility] Comment on above: Order Comment: Speci men Type: BLOOD SPECIMENOrdering Facility: [facility] Address: [address] [place] [address] Performed By: #### 5 7021-8 ####[facility] LABORATORYCLIA [id number] [place] [address] [place] Nucleated RBC/100 WBC (Bld) [Ratio] 0.0 /100 WBC Normal [facility] Comment on above: Order Comment: Speci men Type: BLOOD SPECIMENOrdering Facility: [facility] Address: [address] [place] [address] Performed By: #### 5 7021-8 ####AMRITA LABORATORYCLIA [id number] [place] [address] [place] Platelet mean volume (Bld) [Entitic vol] 10.8 fL Normal 9.0-12.7 [facility] Comment on above: Order Comment: Speci men Type: BLOOD SPECIMENOrdering Facility: [facility] Address: [address] [place] [address] Performed By: #### 5 7021-8 ####[facility] LABORATORYCLIA [id number] [place] [address] [place] Platelets (Bld) [#/Vol] 176 10*3/uL Normal 150-400 [facility] Comment on above: Order Comment: Speci men Type: BLOOD SPECIMENOrdering Facility: [facility] Address: [address] [place] [address] Performed By: #### 5 7021-8 ####[facility] LABORATORYCLIA [id number] [place] [address] [place] RBC (Bld) [#/Vol] 4.51 10*6/uL Normal 4.20-6.00 [facility] Comment on above: Order Comment: Speci men Type: BLOOD SPECIMENOrdering Facility: [facility] Address: [address] [place] [address] Performed By: #### 5 7021-8 ####[facility]CL[facility] LABORATORYCLIA [id number] [place] [address] [place] WBC (Bld) [#/Vol] 9.78 10*3/uL Normal 3.70-11.00 [facility] Comment on above: Order Comment: Speci men Type: BLOOD SPECIMENOrdering Facility: [facility] Address: [address] [place] [address] Performed By: #### 5 7021-8 ####[facility]CL[facility] LABORATORYCLIA [id number] [place] [address] [facility] NUTRITIONon 06-15-2024 NUTRITION HNO ID: [id number] Author: RADHIKA ARZATE RD Service: Nutrition Therapy [...] ARGELIA Zhang June 15, 2024 9:44 AM [facility] ANES POSTPROC EVALon 025 ANES POSTPROC EVAL HNO ID: [id number] Author: ILA MORTENSEN MD Service: Critical Care Author Type: Anesthesiologist Type: Anesthesia Postprocedure Evaluation Filed: 06/14/2024 16:00 Note Text: POST ANESTHESIA EVALUATION NOTE : 1970 Procedure Summary Date: 06/14/24 Room / Location: OR11 / OR Anesthesia Start: 847 Anesthesia Stop: 113 Procedure: LAPAROSCOPY COLECTOMY, PARTIAL, W/ REMOVAL TERMINAL [...] June 14, 2024 TIME: 3:59 PM CSN: [id number] [facility] ANES PRE-OPon 06-14-2024 ANES PRE-OP HNO ID: [id number] Author: ILA MORTENSEN MD Service: Critical Care Author Type: Anesthesiologist Type: Anesthesia Preprocedure Evaluation Filed: 06/14/2024 09:24 Note Text: ANESTHESIOLOGY DAY OF SURGERY NOTE : 1970 Procedure Information Anesthesia Start Date/Time: 06/14/24847 Procedure: LAPAROSCOPY COLECTOMY, PARTIAL, W/ REMOVAL TERMINAL [...] Vitals Value Taken Time BP 120/66 06/14/24 08 Pulse Resp 18 06/14/24810 Temp 36.2 ?C (97.2 ?F) 06/14/24 08 SpO2 96 % 06/14/24810 Facility-Administered Medications as [...] June 14, 2024 TIME: 9:23 AM CSN: [id number] Normal [facility] MISMATCH REPAIR PROTEINS BY IHCon 06-14-2024 AP BIOMARKER DISCLAIMER Normal [facility] Comment on above: Order Comment: Speci men Type: TISSUE SPECIMENOrdering Facility: [facility] Address: [address] [place] [address] Result Comment: Martin jo Developed Test (LDT) Disclaimer: Performance characteristics of immunohistochemical, immunofluorescent and chromogenic in-situ hybridization tests have been determined by the performing laboratory within [facility]???s [facility] Pathology and Laboratory Medicine Department ([facility], [facility], [facility], [facility], [facility], [facility], [facility], or [facility]) in a manner consistent with CLIA requirements. One or more of these tests have not been cleared or approved by the FDA. [facility] is regulated under CLIA as qualified to perform high-complexity testing. These tests are used for clinical purposes. They should not be regarded as investigational or for research. Positive and negative controls stain appropriately. Performed By: #### L [id number] ####[facility] LABIA [id number] [address] [place] AP BLOCK ID A6 Normal [facility] Comment on above: Order Comment: Ara powers Type: TISSUE SPECIMENOrdering Facility: [facility] Address: [address] [place] [address] Performed By: #### L [id number] ####[facility] LABCLIA [id number] [address] STATES [facility] BIOMARKER INTERPRETATION COMMENT AND REFERENCE RANGE Normal [facility] Comment on above: Order Comment: Ara powers Type: TISSUE SPECIMENOrdering Facility: [facility] Address: [address] [place] [address] [address]: [address] expression of MMR [...] patients with metastatic carcinoma, Alana et al. ([facility] 2015;372:2505-20) reported that the clinical benefit of pembrolizumab, [...] questions about this result, please call the [facility] for Personalized Sh[place]y at [phone]. Performed By: #### L [id number] ####[facility] MEDICAL CENTERIA [id number] [address] OF [facility] BIOMARKER METHOD Immunohistochemistry was performed on formalin fixed paraffin-embedded tissue using the following clones: MLH1 (clone M1 mouse monoclonal); MSH2 ([id number] mouse monoclonal); and MSH6 (SP93 rabbit monoclonal); followed by ultrasensitive bright field detection (Optiview with amplification) from [[employer], [place]]. PMS2 (EP51 Rabbit monoclonal, [employer]); followed by ultrasensitive bright field detection ( Rosales Refine Polymer DAB Detection) from [[employer], [place], [place]]. [facility] Comment on above: Order Comment: Speci men Type: TISSUE SPECIMENOrdering Facility: [facility] Address: [address] [place] [address] Performed By: #### L [id number] ####[facility] LABIA [id number] [address] OF [facility] CASE NUMBER MMR [id number] [facility] Comment on above: Order Comment: Speci men Type: TISSUE SPECIMENOrdering Facility: [facility] Address: [address] [place] [address] Performed By: #### L [id number] ####[facility] LABCLIA [id number] [place] [address] [place] FIXATIVE Formalin, 10% Neutra l Buffered [facility] Comment on above: Order Comment: Speci men Type: TISSUE SPECIMENOrdering Facility: [facility] Address: [address] [place] [address] Performed By: #### L [id number] ####[facility] LABCLIA [id number] [place] [address] [place] MLH1 IMMUNOHISTOCHEMICAL RESULTS Normal/Intact Nuclear Expression Normal [facility] Comment on above: Order Comment: Speci men Type: TISSUE SPECIMENOrdering Facility: [facility] Address: [address] [place] [address] Performed By: #### L [id number] ####[facility] LABCLIA [id number] [place] [address] [place] MLH1 PROMOTER METHYLATION ASSAY No Normal [facility] Comment on above: Order Comment: Speci men Type: TISSUE SPECIMENOrdering Facility: [facility] Address: [address] [place] [address] Performed By: #### L [id number] ####[facility] LABCLIA [id number] [place] [address] [place] MMR INTERPRETATION Proficient (Microsat ellite Stable) Normal [facility] Comment on above: Order Comment: Speci men Type: TISSUE SPECIMENOrdering Facility: [facility] Address: [address] [place] [address] Performed By: #### L [id number] ####[facility] LABCLIA [id number] [place] [address] [place] MSH2 IMMUNOHISTOCHEMICAL RESULTS Normal/Intact Nuclear Expression Normal [facility] Comment on above: Order Comment: Speci men Type: TISSUE SPECIMENOrdering Facility: [facility] Address: [address] [place] [address] Performed By: #### L [id number] ####[facility] LABCLIA [id number] [place] [address] [place] MSH6 IMMUNOHISTOCHEMICAL RESULTS Normal/Intact Nuclear Expression Normal [facility] Comment on above: Order Comment: Speci men Type: TISSUE SPECIMENOrdering Facility: [facility] Address: [address] [place] [address] Performed By: #### L [id number] ####[facility] LABCLIA [id number] [address] [place] PMS2 IMMUNOHISTOCHEMICAL RESULTS Normal/Intact Nuclear Expression Normal [facility] Comment on above: Order Comment: Speci men Type: TISSUE SPECIMENOrdering Facility: [facility] Address: [address] [place] [address] Performed By: #### L [id number] ####[facility] LABCLIA [id number] [address] [place] TUMOR TYPE MMR Primary Colorectal Adenocarcinoma Normal [facility] Comment on above: Order Comment: Speci men Type: TISSUE SPECIMENOrdering Facility: [facility] Address: [address] [place] [address] Performed By: #### L [id number] ####[facility] LABCLIA [id number] [address] OF [place] OPERATIVE NOon 06-14-2024 OPERATIVE NO HNO ID: [id number] Author: DONIS CARIAS MD Service: Colorectal Author Type: Physician Type: Operative Report Filed: 06/21/2024 15:52 Note Text: COLON AND RECTAL SURGERY OPERATIVE REPORT PATIENT NAME: Pipre Rodríguez ADMISSION DATE: 06/14/2024 LOG ID: [id number] SURGERY/PROCEDURE DATE: 06/14/2024 INCISION/PROCEDURE START TIME: 9:17 AM INCISION CLOSE/PROCEDURE END TIME: 11:24 AM AGE: [age] year old SEX: male 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 The bowel was lined [...] anastomosis was inspected (more content not included)... [facility] SURGICAL PATHOLOGYon 025 BLOCK FOR ADDITIONAL BIOMARKERS/MOLECULAR STUDIES A6 [facility] Comment on above: Order Comment: Speci men Type: TISSUE SPECIMENOrdering Facility: [facility] Address: [address] [place] [address] Performed By: #### S ####[facility] LABCLIA [id number] [address] STATES OF [facility] LABORATORYCLIA [id number] [place] [address] [place] CASE REPORT [facility] Comment on above: Order Comment: Speci men Type: TISSUE SPECIMENOrdering Facility: [facility] Address: [address] [place] [address] Result Comment: Surg [facility] Pathology Report Case: [id number] Authorizing Provider: Donis Carias MD Collected: 06/14/2024 10:43 AM Ordering Location: [facility] Received: 06/14/2024 11:18 AM Operating Room Pathologist: Samir De La Cruz MD Specimen: Colon, Resection, right colon Performed By: #### S ####[facility] LABCLIA [id number] [address] LABORATORYIA [id number] [address] CLINICAL HISTORY Normal [facility] Comment on above: Order Comment: Speci men Type: TISSUE SPECIMENOrdering Facility: [facility] Address: [address] [place] [address] Result Comment: Pre- op diagnosis: Malignant neoplasm of ascending colon (HCC) [C18.2] Performed By: #### S ####[facility] LABCLIA [id number] [address] LABORATORYIA [id number] [address] FINAL DIAGNOSIS Normal [facility] Comment on above: Order Comment: Speci men Type: TISSUE SPECIMENOrdering Facility: [facility] Address: [address] [place] [address] Result Comment: Term inal ileum, right colon, appendix, and omentum, resection: - Invasive moderately differentiated colonic adenocarcinoma. - Three of 18 lymph nodes involved by metastatic adenocarcinoma (3/18). - Appendix with fibrous obliteration of the tip. - Omentum with no evidence of tumor. - Terminal ileum with no evidence of tumor. - See synoptic report. Performed By: #### S ####[facility] LABCLIA [id number] [address] LABORATORYCLIA [id number] [place] [address] [place] FINAL PERFORMING LAB Normal [facility] Comment on above: Order Comment: Speci men Type: TISSUE SPECIMENOrdering Facility: [facility] Address: [address] [place] [address] Result Comment: Diag nostic interpretation performed at: [facility], [address] [place] [address] CLIA# [id number] Oil Sprayer: Kenneth Rajput MD Performed By: #### S ####[facility] LABCLIA [id number] [address] [place] LABORATORYCLIA [id number] [address] [place] Result Comment: Diag nostic interpretation performed at: [facility], [address] [place] [address] CLIA# [id number] Oil Sprayer: Kenneth Rajput MD Electronically signed out by: Sophia Amaya MD Performed By: #### L [id number] ####[facility] LABCLIA [id number] [address] [place] GROSS DESCRIPTION Normal [facility] Comment on above: Order Comment: Speci men Type: TISSUE SPECIMENOrdering Facility: [facility] Address: [address] [place] [address] Result Comment: Jhony suarez, Resection Received in [...] reveal any areas of induration or nodularity. Research Recruiter sections are submitted as follows: A1 perpendicular [...] 2024 1:43 PM Gross examination performed at [facility], [address] [place] [address] Performed By: #### S ####[facility] LABCLIA [id number] [address] [id number] [address] OF [facility] SYNOPTIC REPORT Normal [facility] Comment on above: Order Comment: Speci men Type: TISSUE SPECIMENOrdering Facility: [facility] Address: [address] [place] [address] Result Comment: COLO N AND RECTUM: Resection [...] Findings: None identified Performed By: #### S ####[facility] LABCLIA [id number] [address] [id number] [place] [address] [place] ECG COMPLETEon 06-08-2024 ECG COMPLETE Ventricular Rate : 6 2 BPM Atrial Rate : 62 BPM P-R Interval : 170 ms QRS Duration : 94 ms Q-T Interval : 402 ms QTC Calculation(Bazett) : 408 ms Calculated P Many : 50 degrees Calculated R Many : 18 degrees Calculated T Many : 44 degrees NORMAL SINUS RHYTHM NORMAL ECG Confirmed by ALEX METCALF MD ([id number]) on 06/09/2024 6:31:40 AM NAME : PIPER RODRÍGUEZ PID : [id number] : 1970 Gender : Male Race : ORD : [id number] Procedure Date : Jun 08 2024 08:53:10 Edit Date : Jun 09 2024 06:31:44 Diagnosis: NORMAL SINUS RHYTHM NORMAL ECG Confirmed by ALEX METCALF MD ([id number]) on 06/09/2024 6:31:40 AM Test Reason : PRE OP Location : [facility] : [facility] Overread By : ALEX METCALF MD Edited By : ALEX METCALF MD Referred By : DONIS CARIAS Acquired by : Andrea YATES [facility] HISTORY PHYSICALon HISTORY PHYSICAL HNO ID: [id number] Author: AUBREY BAER PA-C Service: ? Author Type: Physician Medical Office Representative Type: H&P Filed: 06/08/2024 09:20 Note Text: [...] 5 (+SHERIE, unable to tolerate CPAP ) [id number] Score: Age: <65 Sex: male CHF history: No Hypertension history: Yes Stroke/TIA/thromboembolism history: No Vascular disease history: No Diabetes history: No [id number] Score: 1 ARISCAT Score: Age: 51-80 Preoperative [...] Ramos present: no Lip Bite Test: II Microretrognathia/Micronagt hia/Recessed Chin: No DENTAL Dental findings: teeth intact. [...] fevers. Neuro: No history of TIA's, stroke, ASSISTANT TERMINAL MANAGER tumor, impaired sensorium, hemiplegia, paraplegia or [...] Skin: Ne (more content not included)... Normal [facility] Rosemar[facility]20[facility] PIPER RODRÍGUEZ ([id number]) 1970 M Date Time Provider Department 06/05/24 [...] Status:Closed by DONIS CARIAS on 06/05/24 Normal [facility] CBC W Auto Differential pane l (Bld)on 06-02-2024 Basophils (Bld) [#/Vol] 0.06 10*3/uL Normal <0.11 [facility] Comment on above: Order Comment: Speci men Type: BLOOD SPECIMENOrdering Facility: [facility] Address: [address] [place] [id number] Performed By: #### 5 7021-8 ####[facility] LABORATORYCLIA [id number] [place] [address] [place] Basophils/100 WBC (Bld) 1.0 % Normal [facility] Comment on above: Order Comment: Speci men Type: BLOOD SPECIMENOrdering Facility: [facility] Address: [address] [place] [address] Performed By: #### 5 7021-8 ####[facility] LABORATORYCLIA [id number] [place] [address] [place] [facility] [place] Differential cell count method Nom (Bld) Auto Normal [facility] Comment on above: Order Comment: Speci men Type: BLOOD SPECIMENOrdering Facility: [facility] Address: [address] [place] [address] Performed By: #### 5 7021-8 ####[facility] LABORATORYCLIA [id number] [place] [address] [place] Eosinophils (Bld) [#/Vol] 0.28 10*3/uL Normal <0.46 [facility] Comment on above: Order Comment: Speci men Type: BLOOD SPECIMENOrdering Facility: [facility] Address: [address] [place] [address] Performed By: #### 5 7021-8 ####[facility] LABORATORYCLIA [id number] [address] [place] Eosinophils/100 WBC (Bld) 4.5 % Normal [facility] Comment on above: Order Comment: Speci men Type: BLOOD SPECIMENOrdering Facility: [facility] Address: [address] [place] [address] Performed By: #### 5 7021-8 ####[facility] LABORATORYCLIA [id number] [place] [address] [place] Erythrocyte distribution width (RBC) [Ratio] 16.0 % High 11.5-15.0 [facility] Comment on above: Order Comment: Speci men Type: BLOOD SPECIMENOrdering Facility: [facility] Address: [address] [place] [address] Performed By: #### 5 7021-8 ####[facility] LABORATORYCLIA [id number] [place] [address] [place] Hematocrit (Bld) [Volume fraction] 46.1 % Normal 39.0-51.0 [facility] Comment on above: Order Comment: Speci men Type: BLOOD SPECIMENOrdering Facility: [facility] Address: [address] [place] [address] Performed By: #### 5 7021-8 ####[facility] LABORATORYCLIA [id number] [place] [address] [place] Hemoglobin (Bld) [Mass/Vol] 15.1 g/dL Normal 13.0-17.0 [facility] Comment on above: Order Comment: Speci men Type: BLOOD SPECIMENOrdering Facility: [facility] Address: [address] [place] [address] Performed By: #### 5 7021-8 ####[facility] LABORATORYCLIA [id number] [place] [address] [place] Immature granulocytes (Bld) [#/Vol] 0.03 10*3/uL Normal <0.10 [facility] Comment on above: Order Comment: Speci men Type: BLOOD SPECIMENOrdering Facility: [facility] Address: [address] [place] [address] Performed By: #### 5 7021-8 ####[facility] LABORATORYCLIA [id number] [address] OF [place] Immature granulocytes/100 WBC (Bld) 0.5 % Normal [facility] Comment on above: Order Comment: Speci men Type: BLOOD SPECIMENOrdering Facility: [facility] Address: [address] [place] [address] Performed By: #### 5 7021-8 ####[facility] LABORATORYCLIA [id number] [place] [address] [place] Lymphocytes (Bld) [#/Vol] 1.18 10*3/uL Normal 1.00-4.00 [facility] Comment on above: Order Comment: Speci men Type: BLOOD SPECIMENOrdering Facility: [facility] Address: [address] [place] [address] Performed By: #### 5 7021-8 ####[facility] LABORATORYCLIA [id number] [place] [address] [place] Lymphocytes/100 WBC (Bld) 18.8 % Normal [facility] Comment on above: Order Comment: Speci men Type: BLOOD SPECIMENOrdering Facility: [facility] Address: [address] [place] [address] Performed By: #### 5 7021-8 ####[facility] LABORATORYCLIA [id number] [place] [address] [place] MCH (RBC) [Entitic mass] 30.3 pg Normal 26.0-34.0 [facility] Comment on above: Order Comment: Speci men Type: BLOOD SPECIMENOrdering Facility: [facility] Address: [address] [place] [address] Performed By: #### 5 7021-8 ####[facility] LABORATORYCLIA [id number] [place] [address] [place] MCHC (RBC) [Mass/Vol] 32.8 g/dL Normal 30.5-36.0 [facility] Comment on above: Order Comment: Speci men Type: BLOOD SPECIMENOrdering Facility: [facility] Address: [address] [place] [address] Performed By: #### 5 7021-8 ####[facility] LABORATORYCLIA [id number] [place] [address] [place] MCV (RBC) [Entitic vol] 92.4 fL Normal 80.0-100.0 [facility] Comment on above: Order Comment: Speci men Type: BLOOD SPECIMENOrdering Facility: [facility] Address: [address] [place] [address] Performed By: #### 5 7021-8 ####[facility] LABORATORYCLIA [id number] [address] [place] Monocytes (Bld) [#/Vol] 0.66 10*3/uL Normal <0.87 [facility] Comment on above: Order Comment: Speci men Type: BLOOD SPECIMENOrdering Facility: [facility] Address: [address] [place] [address] Performed By: #### 5 7021-8 ####[facility] LABORATORYCLIA [id number] [place] [address] [place] Monocytes/100 WBC (Bld) 10.5 % Normal [facility] Comment on above: Order Comment: Speci men Type: BLOOD SPECIMENOrdering Facility: [facility] Address: [address] [place] [address] Performed By: #### 5 7021-8 ####[facility] LABORATORYCLIA [id number] [place] [address] [place] Neutrophils (Bld) [#/Vol] 4.06 10*3/uL Normal 1.45-7.50 [facility] Comment on above: Order Comment: Speci men Type: BLOOD SPECIMENOrdering Facility: [facility] Address: [address] [place] [address] Performed By: #### 5 7021-8 ####[facility] LABORATORYCLIA [id number] [place] [address] [place] Neutrophils/100 WBC (Bld) 64.7 % Normal [facility] Comment on above: Order Comment: Speci men Type: BLOOD SPECIMENOrdering Facility: [facility] Address: [address] [place] [address] Performed By: #### 5 7021-8 ####[facility] LABORATORYCLIA [id number] [place] [address] [place] Nucleated RBC (Bld) [#/Vol] 10*3/uL Normal <0.01 [facility] Comment on above: Order Comment: Speci men Type: BLOOD SPECIMENOrdering Facility: [facility] Address: [address] [place] [address] Performed By: #### 5 7021-8 ####[facility] LABORATORYCLIA [id number] [place] [address] [place] Nucleated RBC/100 WBC (Bld) [Ratio] 0.0 /100 WBC Normal [facility] Comment on above: Order Comment: Speci men Type: BLOOD SPECIMENOrdering Facility: [facility] Address: [address] [place] [address] Performed By: #### 5 7021-8 ####[facility] LABORATORYCLIA [id number] [place] [address] [place] Platelet mean volume (Bld) [Entitic vol] 10.1 fL Normal 9.0-12.7 [facility] Comment on above: Order Comment: Speci men Type: BLOOD SPECIMENOrdering Facility: [facility] Address: [address] [place] [address] Performed By: #### 5 7021-8 ####[facility] LABORATORYCLIA [id number] [place] [address] [place] Platelets (Bld) [#/Vol] 182 10*3/uL Normal 150-400 [facility] Comment on above: Order Comment: Speci men Type: BLOOD SPECIMENOrdering Facility: [facility] Address: [address] [place] [address] Performed By: #### 5 7021-8 ####[facility] LABORATORYCLIA [id number] [place] [address] [place] RBC (Bld) [#/Vol] 4.99 10*6/uL Normal 4.20-6.00 [facility] Comment on above: Order Comment: Speci men Type: BLOOD SPECIMENOrdering Facility: [facility] Address: [address] [place] [address] Performed By: #### 5 7021-8 ####[facility] LABORATORYCLIA [id number] [place] [address] [place] WBC (Bld) [#/Vol] 6.27 10*3/uL Normal 3.70-11.00 [facility] Comment on above: Order Comment: Speci men Type: BLOOD SPECIMENOrdering Facility: [facility] Address: [address] [place] [address] Performed By: #### 5 7021-8 ####[facility] LABORATORYCLIA [id number] [place] [address] [place] CEA SerPl-mCncon 06-02-2024 Carcinoembryonic Ag [Mass/Vol] 3.5 ng/mL High <=2.9 [facility] Comment on above: Order Comment: Speci men Type: BLOOD SPECIMENOrdering Facility: [facility] Address: [address] [place] [address] Result Comment: Carc inoembryonic antigen test is used as an aid in monitoring response to treatment or recurrence in patients with established colorectal, breast, lung, prostatic, pancreatic, and ovarian carcinomas. Clinical correlation is required. The Carcinoembryonic antigen test was performed using the [employer] DXI paramagnetic particle chemiluminescent immunoassay method. Results obtained with different assay methods or kits cannot be used interchangeably. Performed By: #### 2 039-6 ####[facility] LABCLIA [id number] [place] [address] [place] CT ABD/PEL W [...] pelvis. 4. Fatty infiltration of the liver. Slash Trimmer: PSCJose Transcribe Date/Time: Jun 04 2024 8:16A Dictated by : OSKAR JOHNSON MD This examination was interpreted and the report reviewed and electronically signed by: OSKAR JOHNSON MD on Jun 04 2024 8:28AM EST [id number] Normal [facility] CT CHEST W IVCONon CT CHEST [...] pelvis. 4. Fatty infiltration of the liver. Slash Trimmer: WILBER Transcribe Date/Time: Jun 04 2024 8:16A Dictated by : OSKAR JOHNSON MD This examination was interpreted and the report reviewed and electronically signed by: OSKAR JOHNSON MD on Jun 04 2024 8:28AM EST [id number] Normal [facility] Comprehensive metabolic 2000 panelon 06-02-2024 Albumin [Mass/Vol] 4.1 g/dL Normal 3.9-4.9 [facility] Comment on above: Order Comment: Speci men Type: BLOOD SPECIMENOrdering Facility: [facility] Address: [address] [place] [address] Performed By: #### 2 4323-8 ####[facility] LABORATORYCLIA [id number] [place] [address] [place] ALP [Catalytic activity/Vol] 85 U/L Normal 38-113 [facility] Comment on above: Order Comment: Speci men Type: BLOOD SPECIMENOrdering Facility: [facility] Address: [address] [place] [address] Performed By: #### 2 4323-8 ####[facility] LABORATORYCLIA [id number] [place] [address] [place] ALT [Catalytic activity/Vol] 175 U/L High 10-54 [facility] Comment on above: Order Comment: Speci men Type: BLOOD SPECIMENOrdering Facility: [facility] Address: [address] [place] [address] Performed By: #### 2 4323-8 ####[facility] LABORATORYCLIA [id number] [place] [address] [place] Anion gap [Moles/Vol] 13 mmol/L Normal 8-15 [facility] Comment on above: Order Comment: Speci men Type: BLOOD SPECIMENOrdering Facility: [facility] Address: [address] [place] [address] Performed By: #### 2 4323-8 ####[facility] LABORATORYCLIA [id number] [place] [address] [place] AST [Catalytic activity/Vol] 151 U/L High 14-40 [facility] Comment on above: Order Comment: Speci men Type: BLOOD SPECIMENOrdering Facility: [facility] Address: [address] [place] [address] Performed By: #### 2 4323-8 ####[facility] LABORATORYCLIA [id number] [place] [address] [place] Bilirubin [Mass/Vol] 0.6 mg/dL Normal 0.2-1.3 [facility] Comment on above: Order Comment: Speci men Type: BLOOD SPECIMENOrdering Facility: [facility] Address: [address] [place] [address] Performed By: #### 2 4323-8 ####[facility] LABORATORYCLIA [id number] [place] [address] [place] Calcium [Mass/Vol] 9.1 mg/dL Normal 8.5-10.2 [facility] Comment on above: Order Comment: Speci men Type: BLOOD SPECIMENOrdering Facility: [facility] Address: [address] [place] [address] Performed By: #### 2 4323-8 ####[facility] LABORATORYCLIA [id number] [place] [address] [place] Chloride [Moles/Vol] 94 mmol/L Low 98-107 [facility] Comment on above: Order Comment: Speci men Type: BLOOD SPECIMENOrdering Facility: [facility] Address: [address] [place] [address] Performed By: #### 2 4323-8 ####[facility] LABORATORYCLIA [id number] [place] [address] [place] CO2 [Moles/Vol] 24 mmol/L Normal 22-30 [facility] Comment on above: Order Comment: Speci men Type: BLOOD SPECIMENOrdering Facility: [facility] Address: [address] [place] [address] Performed By: #### 2 4323-8 ####[facility] LABORATORYCLIA [id number] [place] [address] [place] Creatinine [Mass/Vol] 1.08 mg/dL Normal 0.73-1.22 [facility] Comment on above: Order Comment: Williani men Type: BLOOD SPECIMENOrdering Facility: [facility] Address: [address] [place] [address] Performed By: #### 2 4323-8 ####[facility] LABORATORYCLIA [id number] [place] [address] [facility] Creatinine and Glomerular filtration rate.predicted panel (S/P/Bld) 82 mL/min/1.73m??? Normal >=60 [facility] Comment on above: Order Comment: Ara men Type: BLOOD SPECIMENOrdering Facility: [facility] Address: [address] [place] [address] Result Comment: Dee mated Glomerular Filtration Rate [...] actual GFR. Performed By: #### 2 4323-8 ####[facility] LABORATORYCLIA [id number] [place] [address] [place] Glucose [Mass/Vol] 97 mg/dL Normal 74-99 [facility] Comment on above: Order Comment: Ara powers Type: BLOOD SPECIMENOrdering Facility: [facility] Address: [address] [place] [address] Result Comment: The [place] [employer] (ADA) provides guidance for cutoff [...] Standards of Medical Care in Diabetes 2016, [place] [employer]. Diabetes Care. 2016.39(Suppl 1). Performed By: #### 2 4323-8 ####[facility] LABORATORYCLIA [id number] [place] [address] [place] Potassium [Moles/Vol] 5.2 mmol/L High 3.7-5.1 [facility] Comment on above: Order Comment: Speci men Type: BLOOD SPECIMENOrdering Facility: [facility] Address: [address] [place] [address] Performed By: #### 2 4323-8 ####[facility] LABORATORYCLIA [id number] [place] [address] [place] Protein [Mass/Vol] 7.8 g/dL Normal 6.3-8.0 [facility] Comment on above: Order Comment: Speci men Type: BLOOD SPECIMENOrdering Facility: [facility] Address: [address] [place] [address] Performed By: #### 2 4323-8 ####[facility] LABORATORYCLIA [id number] [place] [address] [place] Sodium [Moles/Vol] 131 mmol/L Low 136-144 [facility] Comment on above: Order Comment: Speci men Type: BLOOD SPECIMENOrdering Facility: [facility] Address: [address] [place] [address] Performed By: #### 2 4323-8 ####[facility] LABORATORYCLIA [id number] [place] [address] [place] Urea nitrogen [Mass/Vol] 11 mg/dL Normal 9-24 [facility] Comment on above: Order Comment: Speci men Type: BLOOD SPECIMENOrdering Facility: [facility] Address: [address] [place], [place] [address] Performed By: #### 2 4323-8 ####[facility] LABORATORYCLIA [id number] [address] [facility] NURSING PROGon 06-02-2024 NURSING PROG HNO ID: [id number] Author: ABILIO TANG, RN Service: PICC Team [...] SIGNATURE: Abilio Tang RN PATIENT NAME: Piper Marychuy Radertiffanie DATE: June 02, 2024 TIME: 8:53 AM [facility] 06-01-[address] [facility] Telephone ([facility]) PIPER RODRÍGUEZ ([id number]) 1970 M Date Time Provider Department 06/01/24 DONIS CARIAS [facility] During your visit today, we recorded the following information about you: Be Cloud 06/01/2024 10:07 AM Signed 06/01 Patient called, stated that he wanted to cancel CT that was for 06/02 due to distance to appointment. Stated that will go to [facility] to gert CT done. Was wondering if able to go to [place] for CT? Jocelyn Cantrell RN 06/01/2024 11:03 AM Signed Spoke with patient. He was under the impression he could get his CT done in [place] and could have the images sent to Dr. Carias. We had a long discussion about the process to make that happen and my concerns that it would not be done in time to continue with his surgery on 06/14. He was agreeable to reschedule his CT at [place] on 06/02/24. He will get his lab work done tomorrow prior to his CT. Allergies As of Date: 06/01/2024 (No Known Allergies) Date Reviewed: 05/25/2024 Reviewed by: Jessica Bass OCCA - Fully Assessed Reason for Visit: Patient Question [1727] Prescriptions as of 06/01/2024 - metroNIDAZOLE (FLAGYL) [...] Status:Closed by JOCELYN CANTRELL on 06/01/24 Normal [facility] CNOVon 05-25-2024 CNOV Office Visit ([facility] ) PIPER RODRÍGUEZ ([id number]) 1970 M Date Time Provider Department 05/25/24 11:20 AM DONIS CARIAS [facility] During your visit today, we recorded [...] for internal providers or letter via the [employer] for external providers. Chief Complaint: [...] distended, non tender. No palpable mass Colonoscopy 12/18/24 - Dr. Hedrick @ [facility] Scan on 05/16/2024 9:34 AM by Norma Magallanes: [facility] operative note (path pending) [id number] Pathology Scan on 05/22/2024 8:26 AM by Be Cloud: [facility] Report 05/11/24 COLON, Biopsy, Cecum: COLONIC [...] with st (more content not included)... Normal [facility] Pathology Request for Lab Co rpon 05-10-2024 Pathology Request for Lab Bibiana Normal [facility] Comment on above: Order Comment: PATHO LOGY GI SPECIMEN Result Comment: See report. Scanned copy available in EMR. PERFORMED BY: [place] [address] PATHOLOGIST [employer] HOSTESS GUNNAR WILSON M.D. Performed By: #### P ATH TO [facility] #### [address] Ambulatory Visit Summaryon 1 06-26-2023 Ambulatory [...] for choosing us for your care. Normal [facility] T4 [facility] 02-05-2022 T4 [Mass/Vol] 9.2 ug/dL Normal 4.5-12.0 [facility] Comment on above: Performed By: #### T 4LC #### [facility] [address] [place] [address] Dr. aRyna Mathew CBC AUTO DIFFon 02-04-2022 BASO # 0.0 103/ul Normal 0.0-0.1 [facility] Comment on above: Performed By: #### C BC #### [facility] [address] [place] [address] [address] Rayna Mathew Basophils/100 WBC (Bld) 0.7 % Normal 0.2-2.0 [facility] Comment on above: Performed By: #### C BC #### [facility] [address] [place] [address] [address] Rayna Mathew EO # 0.4 103/ul Normal 0.0-0.7 [facility] Comment on above: Performed By: #### C BC #### [facility] [address] [place] [address] Dr. Rayna Mathew Eosinophils/100 WBC (Bld) 6.7 % Normal 0.9-7.0 [facility] Comment on above: Performed By: #### C BC #### [facility] [address] [place] [address] Dr. Rayna Mathew Erythrocyte distribution width (RBC) [Ratio] 13.5 % Normal 11.0-15.0 [facility] Comment on above: Performed By: #### C BC #### [facility] [address] [place] [address] Dr. Rayna Mathew Hematocrit (Bld) [Volume fraction] 37.2 % Critically low 42.0-54.0 [facility] Comment on above: Performed By: #### C BC #### [facility] [address] [place] [address] Dr. Rayna Mathew Hemoglobin (Bld) [Mass/Vol] 11.5 g/dL Critically low 14.0-18.0 [facility] Comment on above: Performed By: #### C BC #### [facility] [address] [place] [address] Dr. Rayna Mathew IG # 0.02 10e3/ul Normal 0.00-0.03 [facility] Comment on above: Performed By: #### C BC #### [facility] [address] [place] [address] Dr. Rayna Mathew IG % 0.3 % Normal 0.0-0.5 [facility] Comment on above: Performed By: #### C BC #### [facility] [address] [place] [address] Dr. Rayna Mathew LYMPH # 1.4 103/ul Normal 1.2-3.8 [facility] Comment on above: Performed By: #### C BC #### [facility] [address] [place] [address] Dr. Rayna Mathew Lymphocytes/100 WBC (Bld) 23.8 % Normal 20.5-60.0 [facility] Comment on above: Performed By: #### C BC #### [facility] [address] [place] [address] Dr. Rayna Mathew MANUAL DIFF REQ NO Normal [facility] Comment on above: Performed By: #### C BC #### [facility] [address] [place] [address] Dr. Rayna Mathew MCH (RBC) [Entitic mass] 27.4 pg Normal 25.9-34.0 [facility] Comment on above: Performed By: #### C BC #### [facility] [address] [place] [address] Dr. Rayna Mathew MCHC (RBC) [Mass/Vol] 30.9 g/dL Normal 29.9-35.2 [facility] Comment on above: Performed By: #### C BC #### [facility] [address] [place] [address] Dr. Rayna Mathew MCV (RBC) [Entitic vol] 88.6 fL Normal 80.0-94.0 [facility] Comment on above: Performed By: #### C BC #### [facility] [address] [place] [address] Dr. Rayna Mathew MONO # 0.6 103/ul Normal 0.3-0.8 [facility] Comment on above: Performed By: #### C BC #### [facility] [address] [place] [address] Dr. Rayna Mathew Monocytes/100 WBC (Bld) 9.2 % Normal 1.7-12.0 [facility] Comment on above: Performed By: #### C BC #### [facility] [address] [place] [address] Dr. Rayna Mathew NEUT # 3.5 103/ul Normal 1.4-6.5 [facility] Comment on above: Performed By: #### C BC #### [facility] [address] [place] [address] Dr. Rayna Mathew Neutrophils/100 WBC (Bld) 59.3 % Normal 43.0-75.0 [facility] Comment on above: Performed By: #### C BC #### [facility] [address] [place] [address] [address] Rayna Mathew Platelet mean volume (Bld) [Entitic vol] 10.4 fL Normal 9.5-13.5 [facility] Comment on above: Performed By: #### C BC #### [facility] [address] [place] [address] Dr. Rayna Mathew PLT 182 103/ul Normal 150-450 [facility] Comment on above: Performed By: #### C BC #### [facility] [address] [place] [address] Dr. Rayna Mathew RBC 4.20 106/ul Critically low 4.70-6.10 [facility] Comment on above: Performed By: #### C BC #### [facility] [address] [place] [address] Dr. Rayna Mathew WBC 6.0 103/ul Normal 4.0-11.0 [facility] Comment on above: Performed By: #### C BC #### [facility] [address] [place] [address] Dr. Rayna Mathew FREE T3on 02-04-2022 FREE T3 3.28 pg/mlL Normal 2.18-3.98 [facility] Comment on above: Performed By: #### F T3, TSH, CMP, LIPID #### [facility] [address] [place] [address] Dr. Rayna aMthew GLYCOHEMOGLOBIN A1Con 2021 ADA RECOMMENDATION SEE BELOW Normal [facility] Comment on above: Result Comment: ADA RECOMMENDED LIMIT 4.0 - 6.0 ADA THERAPEUTIC TARGET < 7.0 ACTION SUGGESTED > 7.0 Performed By: #### A 1C #### [facility] [address] [place] [address] Dr. Rayna Mathew Glucose [Mass/Vol] 123 mg/dL Normal [facility] Comment on above: Performed By: #### A 1C #### [facility] [address] [place] [address] Dr. Rayna Mathew HbA1c (Bld) [Mass fraction] 5.9 % Normal 4.5-6.2 [facility] Comment on above: Performed By: #### A 1C #### [facility] [address] [address] [address] Rayna Mathew LIPID PROFILEon 02-04-2022 CHOL-HDL RATIO NORM SEE BELOW Normal [facility] Comment on above: Result Comment: 3.3 - 4.4 LOW RISK 4.4 - 7.1 AVERAGE RISK 7.1 - 11.0 MODERATE RISK >11.0 HIGH RISK Performed By: #### F T3, TSH, CMP, LIPID #### [facility] [address] [address] [address] Rayna Mathew Cholesterol [Mass/Vol] 158 mg/dL Normal <=200 Th [facility] Comment on above: Performed By: #### F T3, TSH, CMP, LIPID #### [facility] [address] [address] [address] Rayna Mathew Cholesterol in HDL [Mass/Vol] 47 mg/dL Normal 40-60 [facility] Comment on above: Performed By: #### F T3, TSH, CMP, LIPID #### [facility] [address] [address] [address] Rayna Mathew Cholesterol in LDL [Mass/Vol] 98.0 mg/dL Normal [facility] Comment on above: Performed By: #### F T3, TSH, CMP, LIPID #### [facility] [address] [address] [address] Rayna Mathew Cholesterol.total/Chol esterol in HDL [Mass ratio] 3.4 {ratio} Normal [facility] Comment on above: Performed By: #### F T3, TSH, CMP, LIPID #### [facility] [address] [address] [address] Rayna Mathew HDL NORMAL > or = 60 mg/dl - LO W CARDIOVASCULAR RISK <40 mg/dl - HIGH CARDIOVASCULAR RISK Normal [facility] Comment on above: Performed By: #### F T3, TSH, CMP, LIPID #### [facility] [address] [place] [address] Dr. Rayna Mathew LDL CALC NORMAL SEE BELOW Normal [facility] Comment on above: Result Comment: <100 mg/dl OPTIMAL 100 - 129 mg/dl NEAR OR ABOVE OPTIMAL 130 - 159 mg/dl BORDERLINE HIGH 160 - 189 mg/dl HIGH >190 mg/dl VERY HIGH Performed By: #### F T3, TSH, CMP, LIPID #### [facility] [address] [address] [address] Rayna Matehw Triglyceride [Mass/Vol] 65 mg/dL Normal <=150 [facility] Comment on above: Performed By: #### F T3, TSH, CMP, LIPID #### [facility] [address] [address] [address] Rayna Mathew VLDL CALC 13.0 mg/dL Normal [facility] Comment on above: Performed By: #### F T3, TSH, CMP, LIPID #### [facility] [address] [place] [address] Dr. Rayna Mathew PROF 14(COMP METB)on 022 Albumin [Mass/Vol] 3.8 g/dL Normal 3.4-5.0 [facility] Comment on above: Performed By: #### F T3, TSH, CMP, LIPID #### [facility] [address] [address] [address] Rayna Mathew Albumin/Globulin [Mass ratio] 0.9 {ratio} Normal [facility] Comment on above: Performed By: #### F T3, TSH, CMP, LIPID #### [facility] [address] [address] [address] Rayna Mathew ALP [Catalytic activity/Vol] 76 U/L Normal 46-116 [facility] Comment on above: Performed By: #### F T3, TSH, CMP, LIPID #### [facility] [address] [address] [address] Rayna Mathew ALT [Catalytic activity/Vol] 109 U/L Critically high 16-63 [facility] Comment on above: Performed By: #### F T3, TSH, CMP, LIPID #### [facility] [address] [address] [address] Rayna Mathew Anion gap [Moles/Vol] 11.1 mmol/L Normal Th e [facility] Comment on above: Performed By: #### F T3, TSH, CMP, LIPID #### [facility] [address] [address] [address] Rayna Mathew AST [Catalytic activity/Vol] 79 U/L Critically high 15-37 [facility] Comment on above: Performed By: #### F T3, TSH, CMP, LIPID #### [facility] [address] [address] [address] Rayna Mathew Bilirubin [Mass/Vol] 0.4 mg/dL Normal 0.2-1.0 [facility] Comment on above: Performed By: #### F T3, TSH, CMP, LIPID #### [facility] [address] [address] [address] Rayna Mathew Calcium [Mass/Vol] 9.0 mg/dL Normal 8.5-10.1 [facility] Comment on above: Performed By: #### F T3, TSH, CMP, LIPID #### [facility] [address] [address] [address] Rayna Mathew Chloride [Moles/Vol] 102 mmol/L Normal 98-107 [facility] Comment on above: Performed By: #### F T3, TSH, CMP, LIPID #### [facility] [address] [address] [address] Rayna Mathew CO2 [Moles/Vol] 29.5 mmol/L Normal 21.0-32.0 [facility] Comment on above: Performed By: #### F T3, TSH, CMP, LIPID #### [facility] [address] [address] [address] Rayna Mathew Creatinine [Mass/Vol] 0.96 mg/dL Normal 0.70-1.30 [facility] Comment on above: Performed By: #### F T3, TSH, CMP, LIPID #### [facility] [address] [address] [address] Rayna Mathew EGFR-AF GUINEAN >60 Normal >=60 [facility] Comment on above: Performed By: #### F T3, TSH, CMP, LIPID #### [facility] [address] [address] [address] Rayna Mathew EGFR-NON AF GUINEAN >60 Normal >=60 [facility] Comment on above: Performed By: #### F T3, TSH, CMP, LIPID #### [facility] [address] [address] [address] Rayna Mathew Globulin (S) [Mass/Vol] 4.0 g/dL Normal [facility] Comment on above: Performed By: #### F T3, TSH, CMP, LIPID #### [facility] [address] [address] [address] Rayna Mathew Glucose [Mass/Vol] 121 mg/dL Critically high 74-106 T [facility] Comment on above: Performed By: #### F T3, TSH, CMP, LIPID #### [facility] [address] [address] [address] Rayna Mathew Potassium [Moles/Vol] 4.6 mmol/L Normal 3.5-5.1 [facility] Comment on above: Performed By: #### F T3, TSH, CMP, LIPID #### [facility] [address] [address] [address] Rayna Mathew Protein [Mass/Vol] 7.8 g/dL Normal 6.4-8.2 [facility] Comment on above: Performed By: #### F T3, TSH, CMP, LIPID #### [facility] [address] [address] [address] Rayna Mathew Sodium [Moles/Vol] 138 mmol/L Normal 136-145 [facility] Comment on above: Performed By: #### F T3, TSH, CMP, LIPID #### [facility] [address] [address] [address] Rayna Mathew Urea nitrogen [Mass/Vol] 11.0 mg/dL Normal 7.0-18.0 [facility] Comment on above: Performed By: #### F T3, TSH, CMP, LIPID #### [facility] [address] [address] [address] Rayna Mathew Urea nitrogen/Creatinine [Mass ratio] 11.5 mg/mg Normal [facility] Comment on above: Performed By: #### F T3, TSH, CMP, LIPID #### [facility] [address] [place], [place] [address] Dr. Rayna Mathew TSHon 02-04-2022 TSH 1.905 uIU/mL Normal 0.358-3.74 0 [facility] Comment on above: Performed By: #### F T3, TSH, CMP, LIPID #### [facility] [address] [place], [place] [address] Dr. Rayna Mathew Vital Signs Date Time Vital Sign Value Performing Clinician Faci lity 01-30-2025 17:56-0400 Body height 177.8 cm Luna Mariela VARITYPE OPERATOR Work Phone: [facility] 01-30-2025 17:56-0400 Body mass index (BMI) [Ratio] 36 kg/m2 Luna Mariela VARITYPE OPERATOR Work Phone: [facility] 01-30-2025 17:56-0400 Body temperature 102.1 [degF] Luna Mariela VARITYPE OPERATOR Work Phone: [facility] 01-30-2025 17:56-0400 Body weight 113.85 kg Luna Mariela VARITYPE OPERATOR Work Phone: [facility] 01-30-2025 17:56-0400 Diastolic blood pressure 75 mm[Hg] Luna Mariela VARITYPE OPERATOR Work Phone: [facility] 01-30-2025 17:56-0400 Heart rate 104 /min Luna Mariela VARITYPE OPERATOR Work Phone: [facility] 01-30-2025 17:56-0400 Respiratory rate 18 /min Luna Mariela VARITYPE OPERATOR Work Phone: [facility] 01-30-2025 17:56-0400 SaO2% (BldA) [Mass fraction] 95 % Luna Mariela VARITYPE OPERATOR Work Phone: [facility] 01-30-2025 17:56-0400 Systolic blood pressure 117 mm[Hg] Luna Mariela VARITYPE OPERATOR Work Phone: [facility] 01-11-2025 12:58-0400 Body height 177.8 cm Donis Carias MD Work Phone: [facility] 01-11-2025 12:58-0400 Body mass index (BMI) [Ratio] 36.16 kg/m2 Donis Carias MD Work Phone: [facility] 01-11-2025 12:58-0400 Body weight 114.31 kg Donis Carias MD Work Phone: [facility] 01-11-2025 12:58-0400 Diastolic blood pressure 80 mm[Hg] Donis Carias MD Work Phone: [facility] 01-11-2025 12:58-0400 Heart rate 69 /min Donis Carias MD Work Phone: [facility] 01-11-2025 12:58-0400 Systolic blood pressure 130 mm[Hg] Donis Carias MD Work Phone: [facility] 10-24-2024 09:55-0400 Body mass index (BMI) [Ratio] 36.28 kg/m2 Donis Carias MD Work Phone: [facility] 10-24-2024 09:55-0400 Body weight 114.7 kg Donis Carias MD Work Phone: [facility] 10-24-2024 09:55-0400 Diastolic blood pressure 91 mm[Hg] Donis Carias MD Work Phone: [facility] 10-24-2024 09:55-0400 Heart rate 71 /min Donis Carias MD Work Phone: [facility] 10-24-2024 09:55-0400 Systolic blood pressure 160 mm[Hg] Donis Carias MD Work Phone: [facility] 07-07-2024 08:50-0500 Body height 177.8 cm 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 APRN.SAFETY SPECIALIST Work Phone: [facility] 07-07-2024 08:50-0500 Body mass index (BMI) [Ratio] 35.87 kg/m2 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 APRN.SAFETY SPECIALIST Work Phone: [facility] 07-07-2024 08:50-0500 Body temperature 97.9 [degF] 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 APRN.SAFETY SPECIALIST Work Phone: [facility] 07-07-2024 08:50-0500 Body weight 113.4 kg 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 APRN.SAFETY SPECIALIST Work Phone: [facility] 07-07-2024 08:50-0500 Diastolic blood pressure 77 mm[Hg] 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 APRN.SAFETY SPECIALIST Work Phone: [facility] 07-07-2024 08:50-0500 Heart rate 88 /min 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 APRN.SAFETY SPECIALIST Work Phone: [facility] 07-07-2024 08:50-0500 SaO2% (BldA) [Mass fraction] 99 % 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 APRN.SAFETY SPECIALIST Work Phone: [facility] 07-07-2024 08:50-0500 Systolic blood pressure 134 mm[Hg] 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 APRN.SAFETY SPECIALIST Work Phone: [facility] 06-28-2024 15:21-0500 Blood Pressure Location Jone HEDRICK [facility] [place] 06-28-2024 15:21-0500 Diastolic blood pressure 84 mm[Hg] Jone HEDRICK [facility] [place] 06-28-2024 15:21-0500 Heart rate 72 /min Jone HEDRICK [facility] [place] 06-28-2024 15:21-0500 Respiratory rate 16 /min Jone HEDRICK [facility] [place] 06-28-2024 15:21-0500 Systolic blood pressure 128 mm[Hg] Jone FLORIDALMA [facility] [place] 06-28-2024 10:56-0500 Body height 177.8 cm Joseph Bragg MD Work Phone: [facility] 06-28-2024 10:56-0500 Body mass index (BMI) [Ratio] 36.47 kg/m2 Joseph Bragg MD Work Phone: [facility] 06-28-2024 10:56-0500 Body temperature 97.3 [degF] Joseph Bragg MD Work Phone: [facility] 06-28-2024 10:56-0500 Body weight 115.3 kg Joseph Bragg MD Work Phone: [facility] 06-28-2024 10:56-0500 Diastolic blood pressure 79 mm[Hg] Joseph Bragg MD Work Phone: [facility] 06-28-2024 10:56-0500 Heart rate 74 /min Joseph Bragg MD Work Phone: [facility] 06-28-2024 10:56-0500 Respiratory rate 18 /min Joseph Bragg MD Work Phone: [facility] 06-28-2024 10:56-0500 SaO2% (BldA) [Mass fraction] 97 % Joseph Bragg MD Work Phone: [facility] 06-28-2024 10:56-0500 Systolic blood pressure 118 mm[Hg] Joseph Bragg MD Work Phone: [facility] 06-08-2024 08:34-0500 Body height 177.8 cm [facility] 1 Work Phone: [facility] 06-08-2024 08:34-0500 Body mass index (BMI) [Ratio] 38.78 kg/m2 Pacc 1 Work Phone: [facility] 06-08-2024 08:34-0500 Body temperature 98.01 [degF] Pacc 1 Work Phone: [facility] 06-08-2024 08:34-0500 Body weight 122.6 kg Pacc 1 Work Phone: [facility] 06-08-2024 08:34-0500 Diastolic blood pressure 82 mm[Hg] Pacc 1 Work Phone: [facility] 06-08-2024 08:34-0500 Heart rate 72 /min Pacc 1 Work Phone: [facility] 06-08-2024 08:34-0500 Respiratory rate 15 /min Pacc 1 Work Phone: [facility] 06-08-2024 08:34-0500 SaO2% (BldA) [Mass fraction] 98 % Pacc 1 Work Phone: [facility] 06-08-2024 08:34-0500 Systolic blood pressure 128 mm[Hg] Pacc 1 Work Phone: [facility] 05-25-2024 11:10-0500 Body height 177.8 cm Donis Carias MD Work Phone: [facility] 05-25-2024 11:10-0500 Body mass index (BMI) [Ratio] 38.88 kg/m2 Donis Carias MD Work Phone: [facility] 05-25-2024 11:10-0500 Body temperature 97 [degF] Donis Carias MD Work Phone: [facility] 05-25-2024 11:10-0500 Body weight 122.92 kg Donis Carias MD Work Phone: [facility] 05-25-2024 11:10-0500 Diastolic blood pressure 84 mm[Hg] Donis Carias MD Work Phone: [facility] 05-25-2024 11:10-0500 Heart rate 68 /min Donis Carias MD Work Phone: [facility] 05-25-2024 11:10-0500 SaO2% (BldA) [Mass fraction] 97 % Donis Carias MD Work Phone: [facility] 05-25-2024 11:10-0500 Systolic blood pressure 124 mm[Hg] Donis Carias MD Work Phone: [facility] 04-25-2024 10:21-0500 Blood Pressure Location Jone HEDRICK [facility] 04-25-2024 10:21-0500 Diastolic blood pressure 80 mm[Hg] Jone HEDRICK [facility] [place] 04-25-2024 10:21-0500 Heart rate 68 /min Jone HEDRICK [facility] 04-25-2024 10:21-0500 Respiratory rate 16 /min Jone HEDRICK [facility] [place] 04-25-2024 10:21-0500 Systolic blood pressure 138 mm[Hg] Jone HEDRICK [facility] Encounters Encounter Date Encounter Type Care Provider Facility Start: 02-21-2025 End: 02-21-2025 ambulatory NON STAFF [facility] Work Phone: Start: 02-21-2025 End: 02-21-2025 Departed Referred Devan Franklin MD -[facility] [place] [facility] Start: 02-20-2025 End: 02-20-2025 ambulatory NON STAFF [facility] Work Phone: Start: 02-20-2025 End: 02-20-2025 Departed Referred Kisha Esteves MD -[facility] [place] [facility] Start: 02-02-2025 End: 02-02-2025 ambulatory [facility] Work Phone: Start: 02-02-2025 End: 02-02-2025 Departed Referred Devan Franklin MD -[facility] Start: 01-30-2025 End: 01-30-2025 ambulatory [facility] Work Phone: Start: 01-30-2025 End: 01-30-2025 Patient encounter procedure Luna Almonte VARITYPE OPERATOR -[facility] Work Phone: Start: 01-11-2025 End: 01-11-2025 Patient encounter procedure Donis Carias MD Work Phone: Colorectal Surgery Comment on above: Incisional hernia, w ithout obstruction or gangrene (Primary Dx) Start: 01-11-2025 End: 01-11-2025 ambulatory [facility] Facility:[facility] Start: 12-27-2024 End: 12-27-2024 ambulatory Jone HEDRICK Facility:[facility] Start: 12-27-2024 End: 12-27-2024 Patient encounter procedure Jone HEDRICK [facility] General Surgery [place] Start: 10-24-2024 End: 10-24-2024 Patient encounter procedure Donis Carias MD Work Phone: COLORECTAL SURGERY Comment on above: Follow-up examinatio n after colorectal surgery (Primary Dx); History of colon cancer Start: 10-24-2024 End: 10-24-2024 ambulatory [facility] Facility:[facility] Start: 10-09-2024 End: 10-09-2024 Chart abstracting Tori Gandhi RN Work Phone: Hematology/Oncology Comment on above: Research (TCI Resear ch Pre-Screening ([id number])) Start: 10-04-2024 End: 10-04-2024 Chart abstracting Abdias Evans MD Work Phone: Hematology/Oncology Start: 09-27-2024 End: 09-27-2024 ambulatory JOE JONES [facility] Start: 07-18-2024 End: 07-18-2024 ambulatory Jone HEDRICK Facility:[facility] Start: 07-18-2024 End: 07-18-2024 Patient encounter procedure Jone HEDRICK [facility] Start: 07-07-2024 End: 07-07-2024 ambulatory MAYLIN CONTE Facility:[facility] Start: 07-07-2024 End: 07-07-2024 Patient encounter procedure 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 Work Phone: Colorectal Surgery Comment on above: Follow-up examinatio n after colorectal surgery (Primary Dx); Encounter for staple removal Start: 07-05-2024 End: 07-05-2024 ambulatory Jone HEDRICK Facility:[id number] Start: 06-30-2024 End: 06-30-2024 Telephone encounter [...] End: 06-28-2024 Patient encounter procedure Jone HEDRICK [facility] Start: 06-28-2024 End: 06-28-2024 ambulatory Jone HEDRICK Facility:[facility] Start: 06-28-2024 End: 06-28-2024 Office outpatient new 60 minutes Joseph Bragg MD Work Phone: Hematology/Oncology Comment on above: Malignant neoplasm o f ascending colon (HCC) Start: 06-26-2024 End: 06-26-2024 Orders Only Donis Carias MD Work Phone: Colorectal Surgery Comment on above: Malignant neoplasm o f ascending colon (HCC) (Primary Dx) Start: 06-21-2024 End: 06-21-2024 ambulatory Jone HEDRICK Facility:[facility] Start: 06-21-2024 End: 06-21-2024 Patient encounter procedure Jone HEDRICK [facility] General Surgery [place] Start: 06-21-2024 End: 06-21-2024 Telephone encounter Donis Carias MD Work Phone: Colorectal Surgery Start: 06-21-2024 End: 06-23-2024 Evaluation and management of inpatient GEN PEÑA Facility:[facility] Start: 06-20-2024 End: 06-20-2024 Telephone encounter Donis Carias MD Work Phone: Colorectal Surgery Comment on above: Post Op Start: 06-19-2024 End: 06-19-2024 Telephone encounter Donis Carias MD Work Phone: Colorectal Surgery Comment on above: Patient Question Start: 06-14-2024 End: 06-16-2024 Evaluation and management of inpatient DONIS CARIAS Facility:[facility] Start: 06-08-2024 End: 06-08-2024 Admission to [facility] [address] [place] [id number] Work Phone: Pre Anesthesia Start: 06-08-2024 End: 06-08-2024 ambulatory DONIS CARIAS Facility:[facility] Start: 06-08-2024 End: 06-08-2024 Anesthesia consultation Pacc 1 Work Phone: Pre Anesthesia Comment on above: Pre-op evaluation (P rimary Dx); BMI 38.0-38.9,adult; Smokeless tobacco use; SHREIE (obstructive sleep apnea) Start: 06-08-2024 End: 06-08-2024 Preprocedural examination done Pacc 1 Work Phone: [facility] Work Phone: Start: 06-05-2024 End: 06-05-2024 Telephone encounter Donis Carias MD Work Phone: [facility] Provider Adult Start: 06-02-2024 End: 06-02-2024 ambulatory DONIS CARIAS Facility:[facility] Start: 06-02-2024 ambulatory DONIS CARIAS Facili ty:[facility] Start: 06-02-2024 End: 06-02-2024 Subsequent hospital visit by physician [facility] Comment on above: Malignant neoplasm o f ascending colon (HCC) [C18.2] Start: 06-01-2024 End: 06-01-2024 Telephone encounter Donis Carias MD Work Phone: Colorectal Surgery Comment on above: Patient Question Start: 05-25-2024 End: 05-25-2024 ambulatory DONIS CARIAS Facility:[facility] Start: 05-25-2024 End: 05-25-2024 Patient encounter procedure Donis Carias MD Work Phone: Colorectal Surgery Comment on above: Malignant neoplasm o f ascending colon (HCC) (Primary Dx) Start: 05-10-2024 End: 05-10-2024 ambulatory Jone Hedrick Facility:[facility] Start: 05-10-2024 End: 05-10-2024 ambulatory Jone HEDRICK Facility:[id number] Start: 04-25-2024 End: 04-25-2024 ambulatory KISHA ESTEVES Facility: [place] Start: 04-25-2024 End: 04-25-2024 Patient encounter procedure Jone Kervin HEDRICK [facility] General Surgery [place] Start: 09-13-2023 End: 09-13-2023 ambulatory MD Gen Peña Work Phone: [facility] Work Phone: Start: 09-13-2023 End: 09-13-2023 Departed Referred MD Gen Peña Work Phone: [facility]-LAB Path [facility] Start: 08-02-2023 End: 08-02-2023 Departed Referred MD Gen Peña Work Phone: [facility] Start: 07-14-2022 End: 07-15-[address] GEN PEÑA . Facility:[facility] Start: 02-10-[address] GEN PEÑA . Facili ty:[facility] Start: 02-08-2022 Encounter for genera l adult medical examination without abnormal findings DR GEN PEÑA . [facility] Start: 02-04-2022 End: 02-05-[address] GEN PEÑA . Facility:[facility] Start: 02-04-2022 End: 02-05-2022 Encounter for general adult medical examination without abnormal findings DR GEN PEÑA . Facility:[facility] Start: 08-01-[address] GEN PEÑA . Facili ty:[facility] Procedures Date Procedure Procedure Detail Performing Clinician Start: 02-20-2025 Bacteria identified in Blood by Culture Luna Sierra APRN Work Phone: Start: 02-02-2025 Urine culture Luna Sierra APRN Work Phone: Start: 10-24-2024 Follow-up visit Follow Up DONIS CARIAS Start: 07-05-2024 Insertion of implantable venous access port Jone HEDRICK Start: 06-14-2024 Right colectomy Jone HEDRICK Start: 01-16-2025 Ecg routine ecg w/least 12 lds i&r only [facility] Provider Start: 05-10-2024 Colonoscopy Jone HEDRICK Start: 05-10-2024 Esophagogastroduodenoscopy Jone HEDRICK Start: 02-04-[address] GEN PEÑA . Comment on above: Performed By: #### PSASC #### [facility] [address] [place] [address] Dr. Rayna Mathew Start: 06-03-2018 Colonoscopy Jone MENDEZL Repair of joint of left hip Jone MENDEZL Repair of joint of right hip Jone MENDEZL Plan of Treatment Date Care Activity Detail Author Start: 06-08-2034 Urine microalbumin profile DTaP,Tdap,Td Vaccine (2 - Td or Tdap) [facility] Start: 06-23-2027 Diabetes Screening Diabetes Screening [facility] Start: 06-16-2027 Diabetes Screening Diabetes Screening [facility] Start: 06-02-2027 Diabetes Screening Diabetes Screening [facility] Start: 06-28-2025 BP Controlled (<130/80) BP Controlled (<130/80) [facility] Start: 02-21-2025 Bacteria identified in Urine by Culture Urine Culture [facility] Start: 02-21-2025 Urine culture [facility] Start: 02-20-2025 Bacteria identified in Blood by Culture Blood Culture [facility] Start: 02-20-2025 Bacteria identified in Urine by Culture Urine Culture [facility] Start: 02-20-2025 End: 02-20-2025 [facility] Start: 02-20-2025 End: 02-20-2025 Urine culture [facility] Start: 02-02-2025 Urine culture [facility] Start: 02-02-2025 Bacteria identified in Urine by Culture Urine Culture [facility] Start: 01-22-2025 Influenza vaccination [facility] Start: 10-24-2024 End: 10-24-2024 Patient encounter procedure COLORECTAL SURGERY Comment on above: 3 month follow up 3 month follow up la paroscopic right colectomy on 06/14/2024 for colon cancer Start: 10-09-2024 End: 10-09-2024 ambulatory 10/09/2024 4:00 PM EDT Visit (SP) Office Hematology/Oncology [address] [place] [address] Abdias Evans MD [address] [place] [address] Kisha Esteves for 2nd opinion DX: Colon CA Hematology/Oncology Comment on above: Ref by Dr Kisha Esteves for 2nd opinion DX: Colon CA Start: 07-14-2024 End: 07-14-2024 ambulatory 07/14/2024 11:30 AM [facility] Hematology/Oncology [address] [place] [address] pump disconnect Hematology/Oncology Comment on above: pump disconnect Start: 07-12-2024 End: 10-11-2024 Carcinoembryonic Ag [Mass/volume] in Serum or Plasma CARCINOEMBRYONIC ANTIGEN Lab Routine Malignant neoplasm of ascending colon (HCC) Expected: 07/12/2024 (Approximate), Expires: 10/11/2024 [facility] Comment on above: Expected: 07/12/2024 (Approximate), Expi res: 10/11/2024 Start: 07-12-2024 End: 10-11-2024 CBC W Auto Differential panel - Blood COMPLETE BLOOD COUNT AND DIFFERENTIAL Lab Routine Malignant neoplasm of ascending colon (HCC) Expected: 07/12/2024 (Approximate), Expires: 10/11/2024 [facility] Comment on above: Expected: 07/12/2024 (Approximate), Expi res: 10/11/2024 Start: 07-12-2024 End: 10-11-2024 Comprehensive metabolic 2000 panel - Serum or Plasma COMPREHENSIVE METABOLIC PANEL Lab Routine Malignant neoplasm of ascending colon (HCC) Expected: 07/12/2024 (Approximate), Expires: 10/11/2024 [facility] Comment on above: Expected: 07/12/2024 (Approximate), Expi res: 10/11/2024 Start: 07-12-2024 End: 10-11-2024 Ferritin [Mass/volume] in Serum or Plasma FERRITIN Lab Routine Malignant neoplasm of ascending colon (HCC) Expected: 07/12/2024 (Approximate), Expires: 10/11/2024 [facility] Comment on above: Expected: 07/12/2024 (Approximate), Expi res: 10/11/2024 Start: 07-12-2024 End: 10-11-2024 Iron and Iron binding capacity panel - Serum or Plasma IRON AND TIBC Lab Routine Malignant neoplasm of ascending colon (HCC) Expected: 07/12/2024 (Approximate), Expires: 10/11/2024 [facility] Comment on above: Expected: 07/12/2024 (Approximate), Expi res: 10/11/2024 Start: 07-12-2024 End: 10-11-2024 MISC SEND OUT TST 1 MISC SEND OUT TST 1 Lab Routine Malignant neoplasm of ascending colon (HCC) Expected: 07/12/2024 (Approximate), Expires: 10/11/2024 [facility] Comment on above: Expected: 07/12/2024 (Approximate), Expi res: 10/11/2024 Start: 07-12-2024 End: 07-12-2024 Follow-up encounter Hematology/Oncology Comment on above: 2 week follow up with l;ab port draw adán motx folfox pump connect Start: 07-07-2024 End: 07-07-2024 Patient encounter procedure 07/07/2024 9:00 AM EST Office Visit Colorectal Surgery [address] [place] [address] 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, 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 [address], [place] [address] Post Op: Staple Removal - Lap RHC 06/14 [place] Colorectal Surgery Comment on above: Post Op: Staple Removal - Lap RHC 06/14 A K Start: 07-05-2024 IR PORTOCATH PLACEMENT IR PORTOCATH PLACEMENT Radiology Routine Malignant neoplasm of ascending colon (HCC) Expected: 07/05/2024 (Approximate) [facility] Work Phone: Comment on above: Expected: 07/05/2024 (Approximate) Start: 07-05-2024 End: 07-05-2024 Patient encounter procedure 07/05/2024 10:40 AM EST Office Visit Colorectal Surgery [address] [facility] [address] [place], [place] [id number] 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, MARKO.SAFETY SPECIALIST [address], [place] [address] [place] [address] Post Op Lap RHC 06/14 [place] Colorectal Surgery Comment on above: Post Op Lap RHC 06/14 [place] Start: 06-30-2024 End: 06-30-2024 Patient encounter procedure 06/30/2024 3:40 PM EST Office Visit Colorectal Surgery [address] [facility] [address] [place], [place] [id number] 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, MARKO.SAFETY SPECIALIST [address], [facility] [address] [place] [address] Post Op Lap RHC 06/14 [place] Colorectal Surgery Comment on above: Post Op Lap RHC 06/14 [place] Start: 06-30-2024 End: 06-30-2024 Nursing evaluation of patient and report 06/30/2024 1:00 PM EST Nurse Visit Hematology/Oncology [address] [place] [address] Chelle Willis, RN [address] [place] [address] Chemo ed Folfox with pump connect Hematology/Oncology Comment on above: Chemo ed Folfox with pump connect Start: 06-28-2024 End: 06-28-2024 ambulatory 06/28/2024 11:00 AM EST Visit (SP) Office Hematology/Oncology [address] [place] [address] Joseph Bragg MD [address] [place] [address] Malignant neoplasm of ascending colon Hematology/Oncology Comment on above: Malignant neoplasm of ascending colon Start: 06-22-2024 End: 06-22-2024 Patient encounter procedure 06/22/2024 8:40 AM EST Office Visit Colorectal Surgery [address] [address] [place] [address] [place] [address] Post Op surgical wound check Colorectal Surgery Comment on above: Post Op surgical wound check Start: 06-21-2024 End: 06-21-2024 Exploratory laparotomy celiotomy w/wo biopsy spx EXPLORATORY LAPAROTOMY Perioperative dehiscence of abdominal wound with evisceration 06/21/2024 3:00 PM EST [facility] Start: 06-14-2024 End: 06-14-2024 Admission to same day surgery center 06/14/2024 7:30 AM EST - 06/14/2024 11:45 AM EST Surgery [facility] Operating Room [address] [place] [address] [place] [address] [place] [address] LAPAROSCOPY COLECTOMY, PARTIAL, W/ REMOVAL TERMINAL ILEUM W/ ILEOCOLOSTOMY [facility] Comment on above: LAPAROSCOPY COLECTOMY, PARTIAL, W/ REMOV AL TERMINAL ILEUM W/ ILEOCOLOSTOMY Start: 06-14-2024 End: 06-14-2024 Laps colectomy prtl w/rmvl terminal ileum LAPAROSCOPY COLECTOMY, PARTIAL, W/ REMOVAL TERMINAL ILEUM W/ ILEOCOLOSTOMY Malignant neoplasm of ascending colon (HCC) 06/14/2024 7:30 AM EST [facility] Start: 06-14-2024 Subsequent hospital visit by physician [facility] Comment on above: Malignant neoplasm of ascending colon (H CC) [C18.2] Start: 06-08-2024 End: 06-08-2024 Admission to same day surgery center 06/08/2024 8:50 AM EST PAT Pre Anesthesia [address] [place] [address] surgery date 06/14 Pre Anesthesia Comment on above: surgery date 06/14 Start: 06-02-2024 End: 06-02-2024 ambulatory 06/02/2024 10:00 AM EST Results Only [facility] [address] [place] [address] [facility] Start: 06-02-2024 End: 06-02-2024 Patient encounter procedure Radiology Comment on above: CT CHEST/ABD/PELVIS Ct prep Abd/Pel/Chest Start: 05-25-2024 End: 08-24-2024 Carcinoembryonic Ag [Mass/volume] in Serum or Plasma CARCINOEMBRYONIC ANTIGEN Lab Routine Malignant neoplasm of ascending colon (HCC) Expected: 05/25/2024 (Approximate), Expires: 08/24/2024 [facility] Comment on above: Expected: 05/25/2024 (Approximate), Expi res: 08/24/2024 Start: 05-25-2024 End: 08-24-2024 CBC W Auto Differential panel - Blood COMPLETE BLOOD COUNT AND DIFFERENTIAL Lab Routine Malignant neoplasm of ascending colon (HCC) Expected: 05/25/2024 (Approximate), Expires: 08/24/2024 [facility] Work Phone: Comment on above: Expected: 05/25/2024 (Approximate), Expi res: 08/24/2024 Start: 05-25-2024 End: 08-24-2024 Comprehensive metabolic 2000 panel - Serum or Plasma COMPREHENSIVE METABOLIC PANEL Lab Routine Malignant neoplasm of ascending colon (HCC) Expected: 05/25/2024 (Approximate), Expires: 08/24/2024 [facility] Comment on above: Expected: 05/25/2024 (Approximate), Expi res: 08/24/2024 Start: 01-23-2024 Covid-19 Vaccine ( season) Covid-19 Vaccine ( season) [facility] Start: 01-23-2024 Influenza vaccination Influenza Vaccine (#1) [facility] Start: 2021 Pneumococcal Vaccine: 50+ (1 of 1 - PCV) Pneumococcal Vaccine: 50+ (1 of 1 - PCV) [facility] Start: 2021 Shingrix Vaccine (1 of 2) Shingrix Vaccine (1 of 2) [facility] Start: 02-18-2016 Diabetes Screening Diabetes Screening [facility] Start: 09-27-2016 Screening for malignant neoplasm of colon [facility] Start: 2006 Lipid panel Lipid Screening [facility] Start: 1990 Hepatitis B Vaccine (1 of 3 - 19+ 3-dose series) Hepatitis B Vaccine (1 of 3 - 19+ 3-dose series) [facility] Start: 1990 Urine microalbumin profile DTaP,Tdap,Td Vaccine (1 - Tdap) [facility] Start: 1989 Annual PCP Team Chronic Disease Visit Annual PCP Team Chronic Disease Visit [facility] Start: 1989 Anxiety Screening Anxiety Screening [facility] Start: 1989 BP Controlled (<130/80) BP Controlled (<130/80) [facility] Start: 1989 Depression Screening Depression Screening [facility] Start: 1989 Hepatitis C screening Hepatitis C Screening [facility] Start: 1989 HIV screening HIV Screening [facility] End: 06-24-2025 CT Abdomen and Pelvis W contrast IV CT ABD/PEL W IVCON Radiology Routine Malignant neoplasm of ascending colon (HCC) 1 Occurrences starting 05/25/2024 until 06/24/2025 [facility] Comment on above: 1 Occurrences starting 05/25/2024 until 06/24/2025 CT Abdomen and Pelvi s W contrast IV CT ABD/PEL W IVCON Radiology Routine Malignant neoplasm of ascending colon (HCC) 06/02/2024 9:41 AM Agilvax [facility] Work Phone: End: 06-24-2025 CT Chest W contrast IV CT CHEST W IVCON Radiology Routine Malignant neoplasm of ascending colon (HCC) 1 Occurrences starting 05/25/2024 until 06/24/2025 [facility] Comment on above: 1 Occurrences starting 05/25/2024 until 06/24/2025 CT Chest W contrast IV CT CHEST W IVCON Radiology Routine Malignant neoplasm of ascending colon (HCC) 06/02/2024 9:41 AM EST [facility] ECG COMPLETE [facility] Work Phone: Comment on above: Ordered: 06/08/2024 Laps colectomy prtl w/rmvl terminal ileum LAPAROSCOPY COLECTOMY, PARTIAL, W/ REMOVAL TERMINAL ILEUM W/ ILEOCOLOSTOMY Malignant neoplasm of ascending colon (HCC) [facility] Immunizations Immunization Date Immunization Notes Care Provider Re gtz 09-19-2020 SARS-CoV-2 (COVID-19 ) mRNA-1273 vaccine Jone HEDRICK [facility] Comment on above: Result Comment: 2023: TPV40 08-22-2020 SARS-CoV-2 (COVID-19 ) mRNA-1273 vaccine Jone HEDRICK [facility] Comment on above: Result Comment: 2023: TPV40 03-15-2018 influenza, injectabl e, quadrivalent, preservative free Abdias Evans MD Work Phone: [facility] 03-15-2018 influenza virus vaccine, unspecified formulation Donis Carias MD Work Phone: [facility] Payers Date Payer Category Payer Self-pay 2023 Private Health Insurance [id number] 2023 Unknown MMO MMO [employer] PPO [id number] 2023-Present [phone] [address] [place] [address] PPO [id number] 1971 Unknown [id number] .593 1971 Unknown [id number] [id number] .593 1971 Unknown [id number] [id number] .593 1971 Unknown [id number] [id number] .593 1971 Unknown [id number] 2.16.840.1.801300.3.579.2 .727 1971 Unknown [id number] [id number] .727 1971 Unknown [id number] 2.16.840.1.540536.3.579.2 .727 1971 Unknown [id number] 2.16.840.1.148928.3.579.2 .727 1971 Unknown [id number] 2.16.840.1.175579.3.579.2 .727 1971 Unknown [id number] 2.16.840.1.891610.3.579.2 .727 1971 Unknown [id number] [id number] .727 1959 Self-pay [id number] 1959 Unknown [id number] Unknown Johanna BC/BS [id number] Unknown [id number] [id number] .531 Unknown [id number] 2.16.840.1.322727.3.579.2 .531 Unknown [id number] 2.16.840.1.206066.3.579.2 .531 Unknown [id number] [id number] .531 Social History Date Type Detail Facility [facility] if ever smoked [facility] Work Phone: Start: 1970 Sex Assigned At Male [facility] Start: 04-25-2024 End: 01-30-2025 Tobacco smoking status Never smoked tobacco (finding) [facility] [place] Start: 05-15-2024 Tobacco smoking status Smokele ss tobacco user within last 30 days [facility] [place] Start: 05-25-2024 End: 06-02-2024 Sex Assigned At Male [facility] Start: 05-25-2024 End: 10-04-2024 Tobacco use and exposure User of smokeless tobacco [facility] History of tobacco use [facility] Start: 05-25-2024 End: 06-02-2024 History of Social function [facility] Start: 1970 Sex assigned at Not on file C [facility] Start: 06-08-2024 End: 10-04-2024 Alcoholic beverage intake Ex-drinker (finding) [facility] Has the [employer], [employer], or water [employer] threatened to shut off services in your home in past 12Mo No [facility] (I/We) worried whekiana er (my/our) food would run out before (I/we) got money to buy more. Never true [facility] History of tobacco use Passive smoker [facility] Sexual Orientation [facility] [place] Start: 06-03-2018 Sex Male (finding) [facility] Functional Status Date Assessment Result Facility 07-18-2024 Functional Status N/A [facility] [place] 06-28-2024 Functional Status N/A [facility] [place] 06-23-2024 Are you deaf, or do you have serious difficulty hearing No 06/23/2024 10:06 AM Jessica Urban, LINDSAY [facility] 06-23-2024 Are you blind, or do you have serious difficulty seeing, even when wearing glasses No 06/23/2024 10:06 AM Jessica Urban, LINDSAY No [facility] 06-23-2024 Do you have serious difficulty walking or climbing stairs No 06/23/2024 10:06 AM Jessica Urban, LINDSAY No [facility] 06-23-2024 Do you have difficul ty dressing or bathing No 06/23/2024 10:06 AM Jessica Urban, LINDSAY [facility] 06-23-2024 Because of a physica l, mental, or emotional condition, do you have difficulty doing errands alone such as visiting a physician's office or shopping No 06/23/2024 10:06 AM Jessica Urban, LINDSAY [facility] 04-25-2024 Functional Status N/A [facility] [place] [facility] Mental Status Date Assessment Result Facility 06-23-2024 Because of a physica l, mental, or emotional condition, do you have serious difficulty concentrating, remembering, or making decisions No 06/23/2024 10:06 AM Jessica Urban RN No [facility] Clinical Notes 04-25-2024 to 01-30-2025 Note Date & Type Note Facility 01-30-2025 Evaluation note Diagnosis Onset Date Resolution Viral URI acute January 30, 2025 5:55pm [facility] Work Phone: 1(404) 407-156008-21-2025 Instructions* Patient Instructions* Donis Carias MD - 01/11/2025 1:33 PM [...] out to our office. [facility] History of Present illness Narrative* Donis Carias MD - 01/11/2025 1:00 PM EDT [facility] NOTE January 11, 2025 Piper Rodríguez 54 year old Recording using [employer] software for draft documentation of the visit was discussed with the patient/authorized outbound telemarketing representative; all questions welcomed and answered. Patient/authorized outbound telemarketing representative agreed to proceed Chief Complaint: abdominal [...] maintains a clean diet and reports a nor mal appetite. He is currently undergoing chemotherapy, with [...] recti Colonoscopy 06/03/2018 - Dr Hedrick @ [facility] Scan on 05/15/2024 9:54 AM by Be Cloud: Seth Castro- Operative Report 06/03/18 Colonoscopy 05/10/24 - Dr. Hedrick @ [facility] Scan on 05/16/2024 9:34 AM by Norma Magallanes: Seth Castro operative note (path pending) [id number] Pathology Scan on 05/22/2024 8:26 AM by Be Cloud: [facility] Report 05/11/24 COLON, Biopsy, Cecum: COLONIC [...] 2.5 View External Labs - Chemistry [ID [id number]] Surveillance CT C A P on 09/26/2024 at [facility] -images uploaded into [employer] -no evidence of recurrence in chest, abdomen, pelvis Scan on 10/06/2024 10:52 AM by Dat Brown: [facility] - CT Scan, 09/26/24 Assessment [...] Drug use: Not Currently documented in this encounterAdena [facility] Center08-21-2025 NoteHNO ID: [id number] Author: DONIS CARIAS MD Service: ? Author Type: Physician Type: Progress Notes Filed: 01/11/2025 13:34 Note Text: [facility] SURG[facility] CLINIC NOTE January 11, 2025 Piper Rodríguez 54 year old Recording using [employer] software for draft documentation of the visit was discussed with the patient/authorized outbound telemarketing representative; all questions welcomed and answered. Patient/authorized outbound telemarketing representative agreed to proceed Chief Complaint: abdominal [...] Magallanes: Seth Castro operative note (path pending) [id number] Pathology Scan on 05/22/2024 8:26 AM by Be Cloud: [facility] Report 05/11/24 COLON, Biopsy, Cecum: COLONIC [...] Omentum with no evid (more content not included)...[facility] 12-27-2024 NoteGeneral Surgery Office/Clinic Note Chief Complaint consultation for port removal HPI Staff Presents to discuss removal of [id number]. Port placed 06/2024 for chemotherapy due to [...] possible port removal; has follow up CT scansin March and surveillance colonoscopy 04/2025; port working well, no pain; port flushed monthly. Review of Systems PHQ Score Initial Depression Screen Score: 0 SCORE ROS - Provider Constitutional: no fever, no sweats, no weight loss. Eyes: no glasses, no blurred vision, no visual loss. ENMT: no dentures, no hoarseness, no swallowing difficulties, no hearing loss, no ear infection(s),no nose bleeds. Cardiovascular: normal blood pressure, no [...] no tenderness, no masses, yes palpable hernias, uppermidline incision, reducible; diastasis recti yes, no hepatosplenomegaly; [...] venous access port (07/05/2024), Right colectomy (06/14/2024), Colonoscopy(05/10/2024), EGD - esophagogastroduodenoscopy (05/10/2024), Colonoscopy (06/03/2018), Arthroplastyof left hip, Arthroplasty of right hip. Medications capecitabine 500 mg Tab, 1500 mg= 3 tab(s), Oral, BID Edarbi, 80 mg, Oral, Daily Allergies No Known Allergies No Known Medication Allergies Social History Alcohol Past. Beer. Daily., 04/23/2024 Substance Abuse Never., 04/23/2024 Tobacco Never (less than 100 in lifetime), Chewing Tabacco Tobacco Use:. Smokeless tobacco user within last30 days Smokeless Tobacco Use:. Oral, 14 per day. Yes, 12/27/2024 Family History Cancer: Father. Primary malignant neoplasm of rectum: Mother. Immunizations Vaccine Date Status Comments SARS-CoV-2 (COVID-19) mRNA-1273 vaccine 09/19/2020 Recorded 2024-04-17: TPV40 SARS-CoV-2 (COVID-19) mRNA-1273 vaccine 08/22/2020 Recorded 2023- (more content not included)...[facility]Result Comment: Electronically Signed By: FLORIDALMA PATEL, Jone Bell\Date and Time Signed: 12/27/24 14:47 [id number] Instructions* Patient Instructions* Donis Carias MD - 10/24/2024 10:18 AM [...] please contact our office. documented in this encounterAdena [facility]06-03-[facility]25 History of Present illness Narrative* Donis Carias MD - 10/24/2024 10:00 AM EDT [facility] NOTE Recording using [employer] software for draft documentation of the visit was discussed with the patient/authorized outbound telemarketing representative; all questions welcomed and answered. 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 He underwent evaluation by a crimping press operator, including an echocardiogram, which was reportedly normal. [...] protocol in the CT contrast administration guidelines link.(Patient not taking: Reported on 10/24/2024) 1 Each [...] defect Colonoscopy 06/03/2018 - Dr Hedrick @ [facility] Scan on 05/15/2024 9:54 AM by Be Cloud: Seth Castro- Operative Report 06/03/18 Colonoscopy 05/10/24 - Dr. Hedrick @ [facility] Scan on 05/16/2024 9:34 AM by Norma Magallanes: [facility] operative note (path pending) [id number] Pathology Scan on 05/22/2024 8:26 AM by Be Cloud: [facility] Report 05/11/24 COLON, Biopsy, Cecum: COLONIC [...] 2.5 View External Labs - Chemistry [ID [id number]] Surveillance CT C A P on 09/26/2024 at [facility] -images uploaded into [employer] -no evidence of recurrence in chest, abdomen, pelvis Scan on 10/06/2024 10:52 AM by Dat Brown: [facility] - CT Scan, 09/26/24 Assessment [...] 2025. Patient to schedule with GI at [facility]. RTC prn Medical Decision Making: Data [...] Carias MD Colorectal Surgery documented in this encounterAdena [facility] Center06-03-2025 NoteHNO ID: [id number] Author: DONIS CARIAS MD Service: ? Author Type: Physician Type: Progress Notes Filed: 10/24/2024 10:19 Note Text: [facility] SURG[facility] CLINIC NOTE Recording using [employer] software for draft documentation of the visit was discussed with the patient/authorized outbound telemarketing representative; all questions welcomed and answered. 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 He underwent evaluation by a crimping press operator, including an echocardiogram, which was reportedly normal. [...] defect Colonoscopy 06/03/2018 - Dr Hedrick @ [facility] Scan on 05/15/2024 9:54 AM by Be Cloud: Seth Castro- Operative Report 06/03/18 Colonoscopy 05/10/24 - Dr. Hedrick @ [facility] Scan on 05/16/2024 9:34 AM by Norma Magallanes: Seth Castro operative note (path pending) [id number] Pathology Scan on 05/22/2024 8:26 AM by Be Cloud: [facility] Report 05/11/24 COLON, Biopsy, Cecum: COLONIC TISSUE WITH INVASIVE ADENOCARCINOMA, MODERATELY DIFFERENTIATED, ULCERATION NOTED 2. COLON, Biopsy, Sigmoid: LARGE TUBULAR ADENOMA (>1 CM), NEGATIVE FOR HIGH GRADE DYSPLASIA, AREAS SHOWING CAUTERY ARTIFACT ARE POSITIVE FOR ADENOMATOUS GLANDS 3. COLON, Biopsy, Descending: TU (more content not included)...[facility]05-19-2025 NoteHNO ID: [id number] Author: TORI GANDHI RN Service: ? Author Type: Registered Nurse Type: Progress Notes Filed: 10/09/2024 12:43 Note Text: Summary: [facility] Pre-Screening ([id number]) Piper Rodríguez was reviewed for potential clinical trial enrollment on [facility] #NRG-GI008 by the [facility] on 10/09/24. Per initial review, patient has disease type Colon cancer, stage IIIB and appears to be not eligible based on > 60 days from surgery and patient has already started treatment. Requesting alliance party notified. No Study tasks were completed as a result of this initial review. АЛЕКСАНДР Caldera, RN Research Nurse Coordinator [facility] History of Present illness Narrative* Tori Gandhi RN - 10/09/2024 12:40 PM EDTSummary: [facility] Research Pre-Screening (NRG-GI008) Piper Rodríguez was reviewed for potential clinical trial enrollment on [facility] #NRG- GI008 by the [facility] on 10/09/24. Per initial review, patient has disease type Colon cancer, stage IIIB and appears to be not eligible based on > 60 days from surgery and patient has already started treatment. Requesting alliance party notified. No Study tasks were completed as a result of this initial review. АЛЕКСАНДР Caldera, RN Research Nurse Coordinator documented in this encounterAdena Pike Medical Center05-07-2025 NoteCardiac Electrophysiology Consultation Reason for Consult: Consideration of cardiac monitoring in the setting of chemotherapy/oxaliplatin Referring Epoxy Specialist/PCP: No ref. provider found HPI: Piper [...] Jones MD, ScM, Msc Cardiac Electrophysiology Email: [email or web address] NoteHNO ID: [id number] Author: MAYLIN CONTE APRN.SAFETY SPECIALIST Service: ? Author Type: Nurse Practitioner Type: Progress Notes Filed: 07/07/2024 09:33 Note Text: COLORECTAL SURGERY July 07, 2024 Piper Rodríguez 54 year old This consult was requested by Dr. Carias and my final recommendations will be communicated to the requesting health care provider by way of the shared medical record for internal providers or letter via the [employer] for external providers. Chief Complaint: [...] prescribed. -continue probiotics fo (more content not included)...[facility] 07-07-2024 History of Present illness Narrative* 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, MARKO.SAFETY SPECIALIST - 07/07/2024 9:04 AM EST COLORECTAL SURGERY July 07, 2024 Piper Rodríguez 54 year old This consult was requested by Dr. Carias and my final recommendations will be communicated to [facility] care provider by way of the shared medical record for internal providers or letter via the [employer] for external providers. Chief Complaint: [...] from itching. No bleeding pain or discharge. Wediscussed lifting and activity restrictions as well as [...] protocol in the CT contrast administration guidelines link.(Patient not taking: Reported on 07/07/2024) 1 Each [...] independently interpreted: n/a I have discussed Piper Perrin Juan's treatment plan and/or results with the patient, Dr. Carias. Risk of morbidity, mortality and/or complications of treatment plan: johann Conte APRN.SAFETY SPECIALIST Colorectal Surgery * Varinder Phillips MA - 07/07/2024 8:49 AM EST What is the reason for your visit today? Post op follow up for staple removal Who is your referring physician? Are you having poor oral intake? NO Have you had unintentional weight loss of 15 lbs/7 Kg in the last 3-6 months? YES Bowels: regular Wound: clean & dry Temperature: No Drains: No documented in this encounterAdena Pike Medical Center02-14-2025 NoteHNO ID: [id number] Author: VARINDER PHILLIPS MA Service: ? Author Type: Automatic Machine Attendant Type: Progress Notes Filed: 07/07/2024 09:33 Note Text: What is the reason for your visit today? Post op follow up for staple removal Who is your referring physician? Are you having poor oral intake? NO Have you had unintentional weight loss of 15 lbs/7 Kg in the last 3-6 months? YES Bowels: regular Wound: clean AND dry Temperature: No Drains: NoCCh[facility]02-07-2025 Telephone encounter Note* Telephone Encounter - Maria Luisa Montes - 06/30/2024 11:31 AM EST All appointments on 07/12/24 have been canceled Maria Luisa DOWNEY [facility]02-07-2025 Miscellaneous Notes* Telephone Encounter - Maria Luisa Montes - 06/30/2024 11:31 AM EST All appointments on 07/12/24 have been canceled Maria Luisa DOWNEY * Telephone Encounter - Chelle Willis RN - 06/30/2024 10:23 AM EST Voicemail received from pt's stating pt will be going to [place] to see their oncologist, anddoesn't wish to follow up here. Please cancel appointments on 07/12. Call placed to to further assess. Message left requesting her to call our office back. Thanks Chelle Willis RN documented in this encounterAdena Pike Medical Center02-07-2025 Telephone encounter Note * Telephone Encounter - Chelle Willis RN - 06/30/2024 10:23 AM EST Voicemail received from pt's stating pt will be going to [place] to see their oncologist, anddoesn't wish to follow up here. Please cancel appointments on 07/12. Call placed to to further assess. Message left requesting her to call our office back. Thanks Chelle Willis RN [facility] Work Phone: [phone] Telephone encounter Note* Telephone Encounter - Chelle Willis RN - 06/29/2024 12:38 PM EST Pt will be in for education tomorrow. Please sign pending orders. Thanks Chelle Willis RN [facility]02-06-2025 Miscellaneous Notes* Telephone Encounter - Chelle Willis RN - 06/29/2024 12:38 PM EST Pt will be in for education tomorrow. Please sign pending orders. Thanks Chelle Willis RN documented in this encounterAdena Pike Medical Center02-06-2025 NoteHNO ID: [id number] Author: CAMRYN BEAULIEU Research Coordinator Service: ? Author Type: Research Type: Progress Notes Filed: 06/29/2024 08:26 Note Text: Summary: [facility] Research Pre-Screening (IRB: NRG-GI008) Piper Rodríguez was reviewed for potential clinical trial enrollment on [facility] #NRG-GI008 by the [facility] on 06/29/24. Per initial review, patient has disease type Stage III CRC and appears to be preliminarily eligible and further testing/procedures required to determine final eligibility. Requesting alliance party notified. No Study tasks were completed as a result of this initial review. Camryn Beaulieu, Research CoordinatorBeverly [id number] History of Present illness Narrative* Camryn Beaulieu, Research Coordinator - 06/29/2024 8:14 AM ESTSummary: [facility] Research Pre-Screening (IRB: NRG-GI008) Piper Rodríguez was reviewed for potential clinical trial enrollment on [facility] #NRG- GI008 by the [facility] on 06/29/24. Per initial review, patient has disease type Stage III CRC and appears to be preliminarily eligibleand further testing/procedures required to determine final eligibility. Requesting alliance party notified. No Study tasks were completed as a result of this initial review. Camryn Beaulieu Research Coordinator documented in this encounterAdena Pike Medical Center02-06-2025 NoteHNO ID: [id number] Author: MAYLIN CONTE APRN.SAFETY SPECIALIST Service: ? Author Type: Nurse Practitioner Type: Progress Notes Filed: 06/29/2024 08:29 Note Text: [facility] Multidisciplinary GI Tumor Board Primary Disease: ascending [...] negative for invasive carcinoma Clinical Pathologic Stage: [id number] stage IIIB Recommendations: MMR studies pending. Referral [...] risks and alternatives to the various treatment optionsPromedica [facility]ost[facility]02-05-2025 NoteGeneral Surgery Office/Clinic Note Chief Complaint consultation for port insertion HPI Staff 54 year old male presents on consultation from Dr. Esteves for port placement; now seeing Dr. Bragg at [facility]. Patient with metastatic colon adenocarcinoma. Right colectomy completed 06/14/24. History of Present Illness 54 yo male recently diagnosed with cecal adenocarcinoma, s/p LS right colectomy at [facility] 06/14/24, stage IIIb adenocarcinoma; had wound dehiscence requiring fascial closure 06/21/24; now seeing Dr. Bragg at [facility]; referred for port placement; no previous port [...] swallowing difficulties, no hearing loss, no ear infection(s),no nose bleeds. Cardiovascular: normal blood pressure, no [...] (C18.9: Malignant neoplasm of colon, unspecified) plan mkomni-b-kkqr insertion under anesthesia, informed consent obtained. Ancef [...] Tabacco Tobacco Use:. Smokeless tobacco user within last30 days Smokeless Tobacco Use:. Oral, 14 per day. Yes, 06/28/2024 Family History Cancer: Father. Primary malignant neoplasm of rectum: Mother. Immunizations Vaccine Date Status Comments SARS-CoV-2 (COVID-19) mRNA-1273 vaccine 09/19/2020 Recorded 2024-04-17: TPV40 SARS-CoV-2 (COVID-19) mRNA-1273 vaccine 08/22/2020 Recorded 2024-04-17: TPV40 [facility]Result Comment: Electronically Signed By: Jone HEDRICK MD\Date and Time Signed: 06/28/24 16:11 EST 06-28-2024 Note* Addendum Note - Joseph Bragg MD - 06/28/2024 11:30 AM ESTAddended by: JOSEPH BRAGG on: 06/28/2024 11:30 AM Modules accepted: Orders [facility]02-05-2025 Miscellaneous Notes* Addendum Note - Joseph Bragg MD - 06/28/2024 11:30 AM ESTAddended by: JOSEPH BRAGG on: 06/28/2024 11:30 AM Modules accepted: Orders documented in this encounterAdena Pike Medical Center02-05-2025 Instructions* Patient Instructions* Joseph Bragg MD - 06/28/2024 11:13 AM EST Ordered port placement Chemo teach for FOLFOX F/u in 2 weeks documented in this encounterAdena Pike Medical Center02-05-2025 History of Present illness Narrative* Joseph Bragg MD - 06/28/2024 11:00 AM EST Images from the original note were not included. PATIENT NAME: Piper Rodríguez [facility] NO.: [id number] ATTENDING PHYSICIAN: Joseph Bragg MD DATE OF SERVICE: June 28, [address] Donis Carias [address] [address] [facility] [address] thank you for referring Piper Rodríguez for [...] pT3 pN1b. [employer]SI Pending Works in a [employer]. Grand mother has colon cancer. No smoking. [...] Range Status 06/23/2024 12.7 % Final Abs [place] Date Value Ref Range Status 06/23/2024 0.84 [...] (Chapter 1, 8th Ed.) it is the managingphysician's responsibility to establish the final pathologic stage [...] in [address] Donis Carias [address] [address] [facility] [address] thank you for allowing me to participate in Piper Rodríguez care, if there are any questions or concerns please do not hesitate to contact me at the number below. I spent a total of 60 minutes on the date of the service which included preparing to see the patient, dyxj-vy-rbxg patient care, completing clinical documentation, obtaining and/or reviewing separately obtained history, performing a medically appropriate examination, counseling and educating the pat ient/family/caregiver, ordering medications, tests, or procedures, communicating with other HCPs (not separately reported), independently interpreting results (not separately reported), communicatingresults to the patient/family/caregiver, and care coordination (not separately reported). Joseph Bragg MD. Hematology/Medical Oncology [facility] [phone] CC: documented in this encounterAdena Pike Medical Center02-05-2025 NoteHNO ID: [id number] Author: JOSEPH BRAGG MD Service: ? Author Type: Physician Type: Progress Notes Filed: 06/28/2024 11:29 Note Text: PATIENT NAME: Piper Rodríguez [facility] NO.: [id number] ATTENDING PHYSICIAN: Joseph Bragg MD DATE OF SERVICE: June 28, [address] Donis Carias [address] [address] [facility] [address] thank you for referring Piper Rodríguez for [...] No palpable breast johnny (more content not included)...[facility]01-31-2025 NoteHNO ID: [id number] Author: ELAYNE GONZALEZ LSW Service: Care Management Author Type: Director Supplier Quality Type: Care Mgt Initial Assessment Filed: 06/23/2024 10:12 Note Text: Summary: High Risk Readmission CARE MANAGEMENT: ASSESSMENT AND DISCHARGE PLAN SERVICE DATE: June 23, 2024 SERVICE TIME: 9:30 PCP: Gen Peña MD Primary Contact: Extended Emergency Contact Information Primary Emergency Contact: Lisa Rodríguez Address: [address] [place] [id number] [place] [address] Mobile Relation: Spouse Preferred language: [place] Metal Base Blocker needed? No Admission Status: Inpatient Insurance Provider: O [employer] O Discharge Planning requested by: Per Department Practice Potential Transition Plans No Services Indicated Advance Directives Current Advance Directive: None Immigration Paralegal Attempted to Assist with AD Completion: Yes Action: Education Provided Current Living Arrangements and Support Lives with: Spouse/significant other Type of Residence: Private Residence (House) Support: Spouse/significant other How do you manage to accomplish the following: Independent: Ambulation;Transportation to appointments/community;Bathe/Shower;Dress;Meals/Meal Prep;Going to the bathroom;Medication Management Current Services/Equipment Current Post-Acute Service(s): None Discharge Planning Patient Goal(s): General wellness [place] Explained: [place] Given: No Reason Not Given: [...] : No HCPOA paperwok on file within [facility] and verified to be current as of date/time of this note Legal Next of Kin Hierarchy per [place] Revised Code: Legal Spouse Lisa [phone] Majority of Adult Children (consensus if possible) [...] Rodríguez DATE: June 23, 2024 TIME: 10:08 [facility]01-31-2025 NoteHNO ID: [id number] Author: DONIS CARIAS MD Service: Colorectal Author Type: Physician Type: Progress Notes Filed: 06/23/2024 13:40 Note Text: Documentation Query Please specify a diagnosis associated with the Clinical Indicators for this patient Obesity class 2 This document will become part of the patient's medical record.[facility] 06-22-2024 NoteHNO ID: [id number] Author: MARY WORRELL RN Service: Nursing Author Type: Registered Nurse Type: Nursing Progress Note Filed: 06/22/2024 15:45 Note Text: 1545 report called to AR.[facility]everly HospitalPmizzdkw91-87-5147 NoteHNO ID: [id number] Author: LASHONDA DELGADO MD Service: Colorectal Author Type: Resident Type: Progress Notes Filed: 06/22/2024 08:11 Note Text: COLORECTAL SURGERY PROGRESS NOTE Piper Rodríguez [id number] Patient Active Hospital Problem List: Perioperative dehiscence [...] and Airways Line Duration Peripheral 06/21/24 1500 [facility] Short Left Forearm 20 Gauge <1 [...] Delgado MD General Surgery, PGY2 Please contact [phone] during the days for any questions. For nights and weekends, please contact [phone].[facility]everly HospitalWxtischu15-33-3916 NoteHNO ID: [id number] Author: JULIOCESAR ENRIQUE APRN.GOODS LAYER Service: Anesthesiology Author Type: Nurse Vocational Rehabilitation Technician Type: Anesthesia Procedure Notes Filed: 06/21/2024 16:11 Note Text: ANESTHESIOLOGY PROCEDURE NOTE Airway General Information Procedure Start Time/Medication Administration: 06/21/2024 3:58 PM Procedure End Time: 06/21/2024 3:58 PM Patient location during procedure: OR Timeout Performed Pre-procedure: timeout performed Consent Obtained: Yes 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, care steamship agent and patient Staffing GOODS LAYER: Juliocesar Enrique APRN.GOODS LAYER Performed by: GOODS LAYER Indications and Patient Condition Indications for airway [...] no Airway not difficult SIGNATURE: Juliocesar Enrique APRN.GOODS LAYER PATIENT NAME: Piper Rodríguez DATE: June 21, 2024 TIME: 4:10 PM CSN: [id number] Telephone encounter Note * Telephone Encounter - Jocelyn Cantrell RN - 06/21/2024 10:36 AM EST Patient called stating he coughed and his incision opened even more than yesterday. He thinks it's 3 times the size of yesterday. He denies pain, denies much bleeding. We discussed the fascia and the concern for this being open. He states the doctor explained this tohim yesterday and did not find an opening in the fascia. We discussed waiting for his appointment tomorrow vs going to [place] [facility]. Ultimately, he thinks he will go to [place] [facility]. [facility]01-29-2025 Miscellaneous Notes* Telephone Encounter - Jocelyn Cantrell RN - 06/21/2024 10:36 AM EST Patient called stating he coughed and his incision opened even more than yesterday. He thinks it's 3 times the size of yesterday. He denies pain, denies much bleeding. We discussed the fascia and the concern for this being open. He states the doctor explained this tohim yesterday and did not find an opening in the fascia. We discussed waiting for his appointment tomorrow vs going to [place] [facility]. Ultimately, he thinks he will go to [place] ED. documented in this encounterAdena Pike Medical Center01-28-2025 Telephone encounter Note * Telephone Encounter - Jocelyn Cantrell RN - 06/20/2024 3:15 PM EST Returned call. Spoke with his . She said they went to their local ED. It was his bigger incision that opened. The ED doctor was asking them for Dr. Carias's contact information so he can communicate with her. Provided info to physician [facility]01-28-2025 Miscellaneous Notes* Telephone Encounter - Jocelyn Cantrell RN - 06/20/2024 3:15 PM EST Returned call. Spoke with his . She said they went to their local ED. It was his bigger incision that opened. The ED doctor was asking them for Dr. Carias's contact information so he can communicate with her. Provided info to physician * Telephone Encounter - Maura Casiano - 06/20/2024 3:02 PM EST Patient calling concerned about surgical incision. She states it has opened up. Asking to speak to nurse to find out if they should go to local ER CB# [phone] documented in this encounterAdena Pike Medical Center01-28-2025 Telephone encounter Note * Telephone Encounter - Maura Casiano - 06/20/2024 3:02 PM EST Patient calling concerned about surgical incision. She states it has opened up. Asking to speak to nurse to find out if they should go to local ER CB# [phone] [facility]01-27-2025 Telephone encounter Note* Telephone Encounter - Jocelyn Cantrell RN - 06/19/2024 1:47 PM EST Returned call. He would like to be able to return to the office for a few hours every other day. Heasked for a note to allow him to do this. His job does not require any physical activity. Note sent through My Chart. [facility]01-27-2025 Miscellaneous Notes* Telephone Encounter - Jocelyn Cantrell RN - 06/19/2024 1:47 PM EST Returned call. He would like to be able to return to the office for a few hours every other day. Heasked for a note to allow him to do this. His job does not require any physical activity. Note sent through My Chart. * Telephone Encounter - Maura Casiano - 06/19/2024 1:27 PM EST Patient had surgery on 06/14/24. He is asking to speak to a nurse about his restrictions and what hecan and cannot do CB# [phone] documented in this encounterAdena Pike Medical Center01-27-2025 Telephone encounter Note * Telephone Encounter - Maura Casiano - 06/19/2024 1:27 PM EST Patient had surgery on 06/14/24. He is asking to speak to a nurse about his restrictions and what hecan and cannot do CB# [phone] [facility]01-24-2025 NoteHNO ID: [id number] Author: DONIS CARIAS MD Service: Colorectal Author [...] will become part of the patient's medical record.[facility] 06-16-2024 NoteHNO ID: [id number] Author: DAVON WATSON MD Service: Colorectal Author [...] PGY-6 Colorectal Surgery Resident Blue Team Pager: [phone] General Surgery Colorectal Surgery On-Call Pager: [phone](Weekends, Weekdays 6PM-6AM)` SUBJECTIVE: No acute issues overnight. [...] 0659 06/16/24 0700 - 06/17/24 0659 Shift [id number] [id number] [id number] 24 Hour Total 0370-7972 9679-2380 1946-2824 24 Hour Total INTAKE Shift Total OUTPUT [...] CREAT 1.25* BUN 19 GLUC 105* CA 8.9Beverly HospitalLfifeuve19-88-8457 NoteHNO ID: [id number] Author: GELY AKINS RN Service: Care Management Author Type: Registered Nurse Type: Care Mgt Initial Assessment Filed: 06/15/2024 11:22 Note Text: CARE MANAGEMENT: ASSESSMENT AND DISCHARGE PLAN SERVICE DATE: June 15, 2024 SERVICE TIME: 11:00am PCP: Gen Peña MD Primary Contact: Extended Emergency Contact Information Primary Emergency Contact: Lisa Rodríguez Address: [address] [place] [address] [place] [address] OF [facility] Mobile Relation: Spouse Preferred language: [place] Metal Base Blocker needed? No Admission Status: Inpatient Insurance Provider: [employer] SUPERMED PPO Discharge Planning requested by: Per Department Practice Potential Transition Plans Home Advance Directives Current Advance Directive: None Immigration Paralegal Attempted to Assist with AD Completion: Yes [...] home, Independent living, Be able to drive [place] Explained: [place] Given: No Reason Not Given: [...] soon. Pt lives with spouse. 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 Pt reports he has good support system. Denies needs. No skilled needs identified. Spouse will transport home at discharge. CM remains available if needs arise. SIGNATURE: Gely Akins RN PATIENT NAME: Piper Rodríguez DATE: June 15, 2024 TIME: 11:20 [facility]01-23-2025 NoteHNO ID: [id number] Author: LASHONDA DELGADO MD Service: Colorectal Author [...] Date: 06/15/2024 COLORECTAL SURGERY PROGRESS NOTE Piper Perrin Diortiffanie [id number] Patient Active Hospital Problem List: Malignant neoplasm [...] and Airways Line Duration Peripheral 06/14/24 0816 [facility] Left Antecubital 20 Gauge 1 day [...] Delgado MD General Surgery, PGY2 Please contact [phone] during the days for any questions. For nights and weekends, please contact [phone].[facility] HospitalJzlqglcq63-42-1785 NoteHNO ID: [id number] Author: ANNABEL THACKER APRN.GOODS LAYER Service: Nursing Author Type: Nurse Vocational Rehabilitation Technician Type: Anesthesia Procedure Notes Filed: 06/14/2024 09:22 Note Text: ANESTHESIOLOGY PROCEDURE NOTE PIV General Information Procedure Start Time/Medication Administration: 06/14/2024 9:02 AM Procedure End Time: 06/14/2024 9:02 AM Patient Location: OR Staffing GOODS LAYER: Annabel Thacker APRN.GOODS LAYER Performed by: GOODS LAYER Preparation Sterility Preparation: hand hygiene performed prior to procedure, surgical cap used, mask used, skin prep agent completely dried prior to procedure Site Prep: chlorhexidine Procedure Details Indication: need for IV access Needle Size/Type: 20 gauge angiocath Orientation: Right Location: Hand Imaging Guidance Used: No SIGNATURE: Annabel Thacker APRN.GOODS LAYER PATIENT NAME: Piper Rodríguez DATE: June 14, 2024 TIME: 9:20 AM CSN: [id number] NoteHNO ID: [id number] Author: ANNABEL THACKER APRN.GOODS LAYER Service: Nursing Author Type: Nurse Vocational Rehabilitation Technician Type: Anesthesia Procedure Notes Filed: 06/14/2024 09:20 Note Text: ANESTHESIOLOGY PROCEDURE NOTE Airway General Information Procedure Start Time/Medication Administration: 06/14/2024 8:59 AM Procedure End Time: 06/14/2024 8:59 AM Patient location during procedure: OR 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, care steamship agent and patient Staffing Anesthesiologist: Ila Mortensen MD GOODS LAYER: Annabel Thacker APRN.GOODS LAYER Performed by: GOODS LAYER Indications and Patient Condition Indications for airway [...] no Airway not difficult SIGNATURE: Annabel Thacker APRN.GOODS LAYER PATIENT NAME: Piper Rodríguez DATE: June 14, 2024 TIME: 9:19 AM CSN: [id number] Instructions* Patient Instructions* Aubrey Baer PA-C - 06/08/2024 8:55 AM EST PATIENT PREOPERATIVE INSTRUCTIONS Donis Carias MD has scheduled you for your procedure at this surgery center: [facility]: [phone] --[address] [address]. Please check in on the1st floor at registration desk 6. Please read [...] Procedures: - YOU MUST HAVE A RESPONSIBLE BRIM CURLER TAKE YOU HOME. A SHOT DROPPER OR WATCHMAKER APPRENTICE CANNOT BE MADE A RESPONSIBLE BRIM CURLER. - We recommend that a responsible person stays with you overnight to take care of you. - You cannot stay in a hotel alone after outpatient surgery. You will not be permitted to have yoursurgery, if you do not have someone to [...] Advance Directive, please fax a copy to [phone] or email to for it to be added to your chart. If you do not have an Advance Directive, you can find the appropriate form and more information at [email or web address]. We recommend that youcomplete the Advance Directive form found on the website and bring it with you the day of your surgery. It can be witnessed and scanned into your chart that day documented in this encounterA[facility] History and physical note * Aubrey Baer PA-C - 06/08/2024 8:45 AM EST HISTORY AND PHYSICAL EXAMINATION SERVICE DATE: 06/08/2024 [...] 5 (+SHERIE, unable to tolerate CPAP ) [id number] Score: Age: <65 Sex: male CHF history: No Hypertension history: Yes Stroke/TIA/thromboembolism history: No Vascular disease history: No Diabetes history: No [id number] Score: 1 ARISCAT Score: Age: 51-80 Preoperative [...] Patient has been seen and evaluated by colorectalsurgeon due to hard ulcerated friable cecal mass extending to appendix per colonoscopy Apr. Prior to colonoscopy, c/o RLQ abdominal pain, hematochezia with anemia. Patient has been recommended for procedure listed above; electing to proceed. REVIEW OF SYSTEMS: General: No weight loss, malaise or fevers. Neuro: No history of TIA's, stroke, ASSISTANT TERMINAL MANAGER tumor, impaired sensorium, hemiplegia, paraplegia or quadraplegia. No neurological symptoms or problems. Respiratory: Positive for smokeless tobacco use; SHERIE unable to tolerate CPAP, Negative for Asthma, COPD, Pneumonia within 6 weeks (date), URI < 2 weeks Negative for cough, wheezing or shortness ofbreath. Negative for hemoptysis. Negative for sleep apnea. Cardiovascular: Positive for: Hypertension Negative for chest pain, orthopnea, PND, dizziness, lightheadedness or syncope. Negative for heart murmur. Negative for palpitations or arrhythmia. Negativefor h/o DVT/PE. Negative for LE edema. GI: See HPI : No history of dysuria, frequency or incontinence,, stones or chronic kidney disease Endocrine: No history of diabetes. Has not taken steroids within the past 30 days. No history of endocrinological symptoms or problems. Hematology: No history of bleeding or clotting disorder. Pt is not taking anti- coagulation or platelet medications. No history of hematological [...] as directed. Take one tab at 6:00 p.m.,another at 7:00 p.m. and the last one [...] protocol in the CT contrast administration guidelines link.Unknown enteric contrast (will be provided with radiology [...] Piper Rodríguez DATE: 06/08/2024 TIME: 9:18 AM [facility]01[facility] History and physical note* Aubrey Baer PA-C - 06/08/2024 8:45 AM EST HISTORY AND PHYSICAL EXAMINATION SERVICE DATE: 06/08/2024 SERVICE TIME: 8:45 AM PRIMARY CARE PHYSICIAN: Gen Peña MD REASON FOR VISIT: Piper Rodríguez is a 54 year old male who is scheduled for LAPAROSCOPY COLECTOMY, PARTIAL, W/ REMOVAL TERMINAL ILEUM W/ ILEOCOLOSTOMY at the request of Dr. Donis aCrias for consultation. My final recommendation will be [...] 5 (+SHERIE, unable to tolerate CPAP ) [id number] Score: Age: <65 Sex: male CHF history: No Hypertension history: Yes Stroke/TIA/thromboembolism history: No Vascular disease history: No Diabetes history: No [id number] Score: 1 ARISCAT Score: Age: 51-80 Preoperative [...] Patient has been seen and evaluated by colorectalsurgeon due to hard ulcerated friable cecal mass extending to appendix per colonoscopy Apr. Prior to colonoscopy, c/o RLQ abdominal pain, hematochezia with anemia. Patient has been recommended for procedure listed above; electing to proceed. REVIEW OF SYSTEMS: General: No weight loss, malaise or fevers. Neuro: No history of TIA's, stroke, ASSISTANT TERMINAL MANAGER tumor, impaired sensorium, hemiplegia, paraplegia or quadraplegia. No neurological symptoms or problems. Respiratory: Positive for smokeless tobacco use; SHERIE unable to tolerate CPAP, Negative for Asthma, COPD, Pneumonia within 6 weeks (date), URI < 2 weeks Negative for cough, wheezing or shortness ofbreath. Negative for hemoptysis. Negative for sleep apnea. Cardiovascular: Positive for: Hypertension Negative for chest pain, orthopnea, PND, dizziness, lightheadedness or syncope. Negative for heart murmur. Negative for palpitations or arrhythmia. Negativefor h/o DVT/PE. Negative for LE edema. GI: See HPI : No history of dysuria, frequency or incontinence,, stones or chronic kidney disease Endocrine: No history of diabetes. Has not taken steroids within the past 30 days. No history of endocrinological symptoms or problems. Hematology: No history of bleeding or clotting disorder. Pt is not taking anti- coagulation or platelet medications. No history of hematological [...] as directed. Take one tab at 6:00 p.m.,another at 7:00 p.m. and the last one [...] protocol in the CT contrast administration guidelines link.Unknown enteric contrast (will be provided with radiology [...] 06/08/2024 TIME: 9:18 AM documented in this encounterAdena [facility]01-13-2025 Telephone encounter Note * Telephone Encounter - Dnois Carias MD - 06/05/2024 12:[address] CAP reviewed with patient- no mets and will proceed with surgery as scheduled. Advised lifestylechanges for fatty liver and to follow up with PCP [facility]01-[facility] Miscellaneous Notes* Telephone Encounter - Donis Carias MD - 06/05/2024 12:[address] CAP reviewed with patient- no mets and will proceed with surgery as scheduled. Advised lifestylechanges for fatty liver and to follow up with PCP documented in this encounterAdena [facility] Center01-10-2025 History of Present illness Narrative* Evens Nelson RT(R) - 06/02/2024 9:30 AM EST Radiology Service Progress Note PATIENT NAME: Piper Rodríguez DATE OF SERVICE: June 02, 2024 TIME: 9:36 AM PATIENT IDENTITY VERIFICATION COMPLETED USING TWO (2) IDENTIFIERS: Name and Date of confirmedby patient verbally and Name and Date of confirmed by identification band. FALL SCREENING: Has the patient had 2 falls in the last year or 1 fall with injury or currently using an Ambulatory Assistive Device (Walker, Cane, Wheelchair, Crutches, etc.)? No PATIENT GENDER DATA: Male PATIENT RELEVANT IMPLANT DATA REVIEWED: Not Applicable PATIENT PRESENTS WITH AN IMPLANTABLE OR ATTACHED BATTERY SERVICE TECHNICIAN: No RADIOLOGY DEPARTMENT: CT; Exam(s) Completed: Chest Abdomen Pelvis PERIPHERAL IV DATA: Site assessment: Clean,Dry and Intact, Site disposition Discontinued SIGNED BY: MILADY Joiner) June 02, 2024 9:36 AM documented in this encounterAdena [facility]ike [facility] Center01-10-2025 NoteHNO ID: [id number] Author: EVENS NELSON RT(R) Service: Radiology Author [...] PATIENT PRESENTS WITH AN IMPLANTABLE OR ATTACHED BATTERY SERVICE TECHNICIAN: No RADIOLOGY DEPARTMENT: CT; Exam(s) Completed: Chest Abdomen Pelvis PERIPHERAL IV DATA: Site assessment: Clean,Dry and Intact, Site disposition Discontinued SIGNED BY: RT Rhys(R) June 02, 2024 9:36 [facility]01-10-2025 Nurse Note* Abilio Tang RN - 06/02/2024 9:30 AM EST Radiology Service Progress Note DATE OF SERVICE: [...] DATE: June 02, 2024 TIME: 8:53 AM [facility]01-10-[facility] Nurse Note* Abilio Tang RN - 06/02/2024 9:30 AM EST Radiology Service Progress Note DATE OF SERVICE: [...] 2024 TIME: 8:53 AM documented in this encounterAdena [facility]ike [facility] Center01-09-2025 Telephone encounter Note * Telephone Encounter - Jocelyn Cantrell RN - 06/01/2024 11:00 AM EST Spoke with patient. He was under the impression he could get his CT done in [place] and could havethe images sent to Dr. Carias. We had a long discussion about the process to make that happen andmy concerns that it would not be done in time to continue with his surgery on 06/14. He was agreeable to reschedule his CT at [place] on 06/02/24. He will get his lab work done tomorrow prior to his CT. [facility]01-09-[facility] Miscellaneous Notes* Telephone Encounter - Jocelyn Cantrell RN - 06/01/2024 11:00 AM EST Spoke with patient. He was under the impression he could get his CT done in [place] and could havethe images sent to Dr. Carias. We had a long discussion about the process to make that happen andmy concerns that it would not be done in time to continue with his surgery on 06/14. He was agreeable to reschedule his CT at [place] on 06/02/24. He will get his lab work done tomorrow prior to his CT. * Telephone Encounter - Be Cloud - 06/01/2024 10:04 AM EST 06/01 Patient called, stated that he wanted to cancel CT that was for 06/02 due to distance to appointment. Stated that will go to [facility] to gert CT done. Was wondering if able to go to [place] for CT? documented in this encounterAdena [facility] Center01-09-2025 Telephone encounter Note * Telephone Encounter - Be Cloud - 06/01/2024 10:04 AM EST 06/01 Patient called, stated that he wanted to cancel CT that was for 06/02 due to distance to appointment. Stated that will go to [facility] to [facility], phoenixt CT done. Was wondering if able to go to [place] for CT? [facility]01[facility] History of Present illness Narrative* Donis Carias MD - 05/25/2024 11:20 AM EST [facility] NOTE May 25, 2024 Piper Rodríguez 54 year old This consult was requested by Dr. Hedrick and my final recommendations will be communicated to the requesting health care provider by way of the shared medical record for internal providers or letter via the [employer] for external providers. Chief Complaint: [...] and initially was getting iron transfusion but ultimatelyunderwent colonoscopy on May 10. Significant for a hard ulcerated friable cecal mass which wasextending into the appendix. Biopsy was taken and confirmed invasive adenocarcinoma moderately diffe rentiated. No MMR status reported. He presents today [...] also had anal cancer. Denies smoking but doeschew tobacco No past medical history on file. No past surgical history on file. Current Outpatient Medications Medication Sig Dispense Refill EDARBI 80 mg tab metroNIDAZOLE (FLAGYL) 500 mg tablet Take 1 tablet by mouth as directed. Take one tab at 6:00 p.m.,another at 7:00 p.m. and the last one [...] mass Colonoscopy 05/10/24 - Dr. Hedrick @ [facility] Scan on 05/16/2024 9:34 AM by Norma Magallanes: [facility] operative note (path pending) [id number] Pathology Scan on 05/22/2024 8:26 AM by Be Cloud: [facility] Report 05/11/24 COLON, Biopsy, Cecum: COLONIC TISSUE WITH INVASIVE ADENOCARCINOMA, MODERATELY DIFFERENTIATED, ULCERATION NOTED 2. COLON, Biopsy, Sigmoid: LARGE TUBULAR ADENOMA (>1 CM), NEGATIVE FOR HIGH GRADE DYSPLASIA, AREAS SHOWING CAUTERY ARTIFACTARE POSITIVE FOR ADENOMATOUS GLANDS 3. COLON, Biopsy, Descending: TUBULAR ADENOMA. NEGATIVE FOR HIGH GRADE DYSPLASIA Colonoscopy 06/03/2018 - Dr Hedrick @ [facility] Scan on 05/15/2024 9:54 AM by Be Cloud: Seth Castro- Operative Report 06/03/18 Assessment Assessment and Plan: Piper Rodríguez is a 54 year old man with new diagnosis of cecal cancer. Discussed possibility of appendiceal in origin with extension into cecum. Regardless, the next step is to proceed with staging CTchest abdomen pelvis as well as CEA. If [...] Carias MD Colorectal Surgery documented in this encounterAdena [facility]ike [facility] Center01-02-2025 NoteHNO ID: [id number] Author: DONIS CARIAS MD Service: ? Author Type: Physician Type: Progress Notes Filed: 05/25/2024 12:48 Note Text: [facility] NOTE May 25, 2024 Piper Rodríguez 54 year old This consult was requested by Dr. Hedrick and my final recommendations will be communicated to the requesting health care provider by way of the shared medical record for internal providers or letter via the [employer] for external providers. Chief Complaint: [...] mass Colonoscopy 05/10/24 - Dr. Hedrick @ [facility] Scan on 05/16/2024 9:34 AM by Norma Magallanes: [facility] operative note (path pending) [id number] Pathology Scan on 05/22/2024 8:26 AM by Be Cloud: [facility] Report 05/11/24 COLON, Biopsy, Cecum: COLONIC [...] mets or locally advanced, (more content not included)...[facility]12-03-2024 NoteGeneral Surgery Office/Clinic Note Chief Complaint consultation for anemia HPI Staff 54 year old male presents on consultation from Dr. Esteves and Dr. Peña for anemia. Original referralreceived July 2023. Patient was hospitalized at time [...] and stabbing to burring. Denies nausea or vomiting.Denies rectal pain, bleeding or change in bowel [...] swallowing difficulties, no hearing loss, no ear infection(s),no nose bleeds. Cardiovascular: normal blood pressure, no [...] Tabacco Tobacco Use:. Smokele (more content not included)...[facility]:Result Comment: Electronically Signed By: FLORIDALMA APTEL, Jone Bell\Date and Time Signed: 04/25/24 10:59 ESTEvaluation + Plan note No data available for this section [facility] General Surgery [place] Evaluation noteNo assessment information available [facility] Work Phone: Evaluation note* Diagnosis Malignant neoplasm of ascending colon (HCC)- Primary Malignant neoplasm of ascending colon documented in this encounter [facility]* Diagnosis Malignant neoplasm of ascending colon (HCC) Malignant neoplasm of ascending colon Malignant neoplasm of ascending colon (HCC) Malignant neoplasm of ascending colon documented in this encounter [facility]* Diagnosis Pre-op evaluation- Primary Preoperative examination, [...] Assessment: BMI 38.78 documented in this encounter [facility]* Diagnosis Pre-op evaluation- Primary Preoperative examination, unspecified BMI 38.0-38.9,adult Body Mass Index 38.0-38.9, adult Smokeless tobacco use Tobacco use disorder SHERIE (obstructive sleep apnea) Obstructive sleep apnea (adult) (pediatric) Malignant neoplasm of ascending colon (HCC)- Primary Malignant neoplasm of ascending colon documented in this encounter [facility] note* Diagnosis Pre-op evaluation- Primary Preoperative examination, unspecified BMI 38.0-38.9,adult Body Mass Index 38.0-38.9, adult Smokeless tobacco use Tobacco use disorder SHERIE (obstructive sleep apnea) Obstructive sleep apnea (adult) (pediatric) Malignant neoplasm of ascending colon (HCC) Malignant neoplasm of ascending colon documented in this encounter [facility] note* Diagnosis Pre-op evaluation- Primary Preoperative examination, unspecified BMI 38.0-38.9,adult Body Mass Index 38.0-38.9, adult Smokeless tobacco use Tobacco use disorder SHERIE (obstructive sleep apnea) Obstructive sleep apnea (adult) (pediatric) Malignant neoplasm of ascending colon (HCC)- Primary Malignant neoplasm of ascending colon documented in this encounter [facility] note* Diagnosis Pre-op evaluation- Primary Preoperative examination, unspecified BMI 38.0-38.9,adult Body Mass Index 38.0-38.9, adult Smokeless tobacco use Tobacco use disorder SHERIE (obstructive sleep apnea) Obstructive sleep apnea (adult) (pediatric) Follow-up examination after colorectal surgery- Primary Follow-up examination, following other surgery Encounter for staple removal Encounter for removal of sutures documented in this encounter [facility] note* Diagnosis Pre-op evaluation- Primary Preoperative examination, unspecified BMI 38.0-38.9,adult Body Mass Index 38.0-38.9, adult Smokeless tobacco use Tobacco use disorder SHERIE (obstructive sleep apnea) Obstructive sleep apnea (adult) (pediatric) Follow-up examination after colorectal surgery- Primary Follow-up examination, following other surgery History of colon cancer Personal history of malignant neoplasm of large intestine documented in this encounter [facility] note* Diagnosis Pre-op evaluation- Primary Preoperative examination, unspecified BMI 38.0-38.9,adult Body Mass Index 38.0-38.9, adult Smokeless tobacco use Tobacco use disorder SHERIE (obstructive sleep apnea) Obstructive sleep apnea (adult) (pediatric) Incisional hernia, without obstruction or gangrene- Primary Incisional hernia without mention of obstruction or gangrene documented in this encounter [facility] Discharge instructions No data available for this section [facility] General Surgery [place] Progress note No data available for this section [facility] General Surgery [place] Reason for referral (narrative)* Outpatient Procedure (Routine) - New Request Specialty Diagnoses / Procedures Referred By Contphu t Referred To [facility] Diagnoses Pre-op evaluation Procedures ECG COMPLETE ECG ROUTINE ECG W/LEAST 12 LDS W/I&R Aubrey Baer PA-C [address] [place] [address] [facility] [address] [place] [address] Referral ID Status Reason Start Date Expiration Date Visits Requested Visits Authorized [id number] New Request Auto-Generat ed Referral 06/08/2024 06/08/2025 1 1 [facility] for referral (narrative)No reason for referral information [facility]Tr[facility] Work Phone: Summary Purpose Family History No [...] HIGH [place] 60 [place] [address] [place] [address] Referral ID Status Reason Start Date Expiration Date Visits Requested Visits Authorized [id number] Authorized PCP Requested Referral 06/26/2024 06/26/2025 1 1 Specialty Diagnoses / Procedures Referred By Contac t Referred To Contact CT IMAGING Diagnoses Malignant neoplasm of ascending colon (HCC) Procedures CT CHEST W IVCON DIAGNOSTIC COMPUTED TOMOGRAPHY THORAX W/[place] [address] [place] [address] [place] [address] Referral ID Status Reason Start Date Expiration Date Visits Requested Visits Authorized [id number] Authorized Auto-Generat ed Referral 05/25/2024 06/24/2025 1 1 Specialty Diagnoses / Procedures Referred By Contac t Referred To Contact CT IMAGING Diagnoses Malignant neoplasm of ascending colon (HCC) Procedures CT ABD/PEL W IVCON CT ABD & PELVIS [place] [address] [place] [address] [place] [address] Referral ID Status Reason Start Date Expiration Date Visits Requested Visits Authorized [id number] Authorized Auto-Generat ed Referral 05/25/2024 06/24/2025 1 1 Chief Complaint and Reason for Visit Chief Complaint Admit Date cough, congestion January 30, 2025 5:55pm Fever February 02, 2025 9:58pm Unknown February 20, 2025 9:00am Reason for Visit Admit Date Viral URI January 30, 2025 5:55pm Chief Complaint Admit Date cough, congestion January 30, 2025 5:55pm Fever February 02, 2025 9:58pm Reason for Visit Admit Date Viral URI January 30, 2025 5:55pm Chief Complaint Admit Date cough, congestion January 30, 2025 5:55pm Additional Source Comments (unrecognized sect ion and content) No Status Records FoundNo Status Records FoundNo Status Records FoundNo Status Records FoundNo Status Records FoundNo Status Records Found INFORMATION SOURCE (unrecogn ized section and content) DATE CREATED AUTHOR 07/18/2022 [facility] DATE CREATED AUTHOR AUTHOR'S ORGANIZ ATION 07/01/2024 [facility] DATE CREATED AUTHOR AUTHOR'S ORGANIZ ATION 10/03/2024 [facility] DATE CREATED AUTHOR AUTHOR'S ORGANIZ ATION 12/28/2024 [facility] DATE CREATED AUTHOR AUTHOR'S ORGANIZ ATION 01/13/2025 [facility] DATE CREATED AUTHOR AUTHOR'S ORGANIZ ATION 02/25/2025 [facility] Care Teams (unrecognized sec tion and content) Team Status: Inactive Member Role Status Dates Gen Peña MD Attending Provider Active Sta rt: August 02, 2023 End: August 02, 2023 Team Status: Inactive Member Role Status Dates Kisha Esteves MD Attending Provider Active St art: September 13, 2023 End: September 13, 2023 Commissioning Engineer Relationship Specialty Start Date End Date Gen Peña MD [address] [place] [address] PCP - General Family Medicine 05/15/24 Jone Hedrick MD [address] [place] [address] General Surgery 05/15/24 Commissioning Engineer Relationship Specialty Start Date End Date Gen Peña MD [address] [place] [address] PCP - General Family Medicine 05/15/24 Jone Hedrick MD [address] [place] [address] General Surgery 05/15/24 Commissioning Engineer Relationship Specialty Start Date End Date Gen Peña MD [address] [place] [address] PCP - General Family Medicine 05/15/24 Jone Hedrick MD [address] [place] [address] General Surgery 05/15/24 Commissioning Engineer Relationship Specialty Start Date End Date Gen Peña MD [address] [place] [address] PCP - General Family Medicine 05/15/24 Jone Hedrick MD [address] [place] [address] General Surgery 05/15/24 Commissioning Engineer Relationship Specialty Start Date End Date Gen Peña MD [address] [place] [address] PCP - General Family Medicine 05/15/24 Jone Hedrick MD [address] [place] [address] General Surgery 05/15/24 Commissioning Engineer Relationship Specialty Start Date End Date Gen Peña MD [address] [place] [address] PCP - General Family Medicine 05/15/24 Jone Hedrick MD [address] [place] [address] General Surgery 05/15/24 Commissioning Engineer Relationship Specialty Start Date End Date Gen Peña MD [address] [place] [address] PCP - General Family Medicine 05/15/24 Jone Hedrick MD [address] [place] [address] General Surgery 05/15/24 Commissioning Engineer Relationship Specialty Start Date End Date Gen Peña MD [address] [place] [address] PCP - General Family Medicine 05/15/24 Jone Hedrick MD [address] [place] [address] General Surgery 05/15/24 Commissioning Engineer Relationship Specialty Start Date End Date Gen Peña MD [address] [place] [address] PCP - General Family Medicine 05/15/24 Jone Hedrick MD [address] [place] [address] General Surgery 05/15/24 Commissioning Engineer Relationship Specialty Start Date End Date Gen Peña MD [facility] [place] [address] PCP - General Family Medicine 05/15/24 Jone Hedrick MD [address] [address] General Surgery 05/15/24 Commissioning Engineer Relationship Specialty Start Date End Date Gen Peña MD [address] [place] [address] PCP - General Family Medicine 05/15/24 Jone Hedrick MD [address] [address] General Surgery 05/15/24 Commissioning Engineer Relationship Specialty Start Date [place] Date [place] [address] [place] [address] PCP - General Family Medicine 05/15/24 Jone Hedrick MD [address] [facility] [address] [place] [address] General Surgery 05/15/24 Chelle Willis RN [address] [place] [address] [place] [address] Specialty Chief Of Staff Hematology/Oncology 2/6/25 Joseph Bragg MD [address] [place] [address] Physician Hematology/Oncology 06/29/24 Commissioning Engineer Relationship Specialty Start Date End Date Gen Peña MD [address] [place] [address] PCP - General Family Medicine 05/15/24 Jone Hedrick MD [address] [place] [address] General Surgery 05/15/24 Chelle Willis RN [address] [place] [address] Specialty Chief Of Staff Hematology/Oncology 06/29/24 Joseph Bragg MD [address] [place] [address] Physician Hematology/Oncology 06/29/24 Commissioning Engineer Relationship Specialty Start Date End Date Gen Peña MD [address] [place] [address] PCP - General Family Medicine 05/15/24 Jone Hedrick MD [address] [place] [address] General Surgery 05/15/24 Chelle Willis, RN [address] [place] [address] Specialty Chief Of Staff Hematology/Oncology 06/29/24 Joesph Bragg MD [address] [place] [address] Physician Hematology/Oncology 06/29/24 Commissioning Engineer Relationship Specialty Start Date End Date Gen Peña MD [address] [facility] [place] [address] PCP - General Family Medicine 05/15/24 Jone Hedrick MD [address] [place] [address] General Surgery 05/15/24 Chelle Willis RN [address] [place] [address] Specialty Chief Of Staff Hematology/Oncology 06/29/24 Joseph Bragg MD [address] [place] [address] Physician Hematology/Oncology 06/29/24 Commissioning Engineer Relationship Specialty Start Date End Date Gen Peña MD [address] [place] [address] PCP - General Family Medicine 05/15/24 Jone Hedrick MD [address] [place] [address] General Surgery 05/15/24 Chelle Willis RN [address] [place] [address] Specialty Chief Of Staff Hematology/Oncology 06/29/24 Joseph Bragg MD [address] [place] [address] Physician Hematology/Oncology 06/29/24 Commissioning Engineer Relationship Specialty Start Date End Date Gen Peña MD [address] [place] [address] PCP - General Family Medicine 05/15/24 Jone Hedrick MD [address] [place] [address] General Surgery 05/15/24 Chelle Willis, LINDSAY [address] [place] [address] Specialty Chief Of Staff Hematology/Oncology 06/29/24 Joseph Bragg MD [address] [facility] [place] [address] Physician Hematology/Oncology 06/29/24 Commissioning Engineer Relationship Specialty Start Date End Date Gen Peña MD [address] [place] [address] PCP - General Family Medicine 05/15/24 Jone Hedrick MD [address] [place] [address] General Surgery 05/15/24 Chelle Willis RN [address] [facility] [place] [address] Specialty Chief Of Staff Hematology/Oncology 06/29/24 Joseph Bragg MD [address] [facility] [place] [address] Physician Hematology/Oncology 06/29/24 Team Status: Active Member Role Status Dates NON STAFF Primary Care Provider Active Team Status: Inactive Member Role Status Dates Luna Sierra APRN Attending Provider Active S tart: January 30, 2025 End: January 30, 2025 NON STAFF Primary Care Provider Active Start: January 30, 2025 End: January 30, 2025 Team Status: Inactive Member Role Status Dates Devan Franklin MD Attending Provider Active St art: February 02, 2025 End: February 02, 2025 Team Status: Inactive Member Role Status Dates Kisha Esteves MD Attending Provider Active St art: February 20, 2025 End: February 20, 2025 Team Status: Inactive Member Role Status Dates Devan Franklin MD Attending Provider Active St art: February 21, 2025 End: February 21, 2025 Goals (unrecognized section and content) Goals may be documented in a n alternate section No data available for this section No data available for this section No data available for this section No data available for this section No data available for this sectionGoals may be documented in an alternate sectionGoals may be documented in an alternate sectionGoals may be documented in an alternate sectionGoals may be documented in an alternate section Source Comments (unrecognize d section and content) In the event this informatio n is protected by the Federal Confidentiality of Alcohol and Drug Abuse Patient Records regulations: The Federal rules restrict any use of the information to criminally investigate or prosecute any alcohol or drug abuse patient.[facility] the event this information is protected by the Federal Confidentiality of Alcohol and Drug Abuse Patient Records regulations: The Federal rules restrict any use of the information to criminally investigate or prosecute any alcohol or drug abuse patient.[facility] Center[facility] the event this information is protected by the Federal Confidentiality of Alcohol and Drug Abuse Patient Records regulations: The Federal rules restrict any use of the information to criminally investigate or prosecute any alcohol or drug abuse patient.[facility] Center[facility] the event this information is protected by the Federal Confidentiality of Alcohol and Drug Abuse Patient Records regulations: The Federal rules restrict any use of the information to criminally investigate or prosecute any alcohol or drug abuse patient.[facility] Center[facility] the event this information is protected by the Federal Confidentiality of Alcohol and Drug Abuse Patient Records regulations: The Federal rules restrict any use of the information to criminally investigate or prosecute any alcohol or drug abuse patient.[facility] CenterIn the event this information is protected by the Federal Confidentiality of Alcohol and Drug Abuse Patient Records regulations: The Federal rules restrict any use of the information to criminally investigate or prosecute any alcohol or drug abuse patient.[facility] Center[facility] the event this information is protected by the Federal Confidentiality of Alcohol and Drug Abuse Patient Records regulations: The Federal rules restrict any use of the information to criminally investigate or prosecute any alcohol or drug abuse patient.[facility] CenterIn the event this information is protected by the Federal Confidentiality of Alcohol and Drug Abuse Patient Records regulations: The Federal rules restrict any use of the information to criminally investigate or prosecute any alcohol or drug abuse patient.[facility] CenterIn the event this information is protected by the Federal Confidentiality of Alcohol and Drug Abuse Patient Records regulations: The Federal rules restrict any use of the information to criminally investigate or prosecute any alcohol or drug abuse patient.[facility] CenterIn the event this information is protected by the Federal Confidentiality of Alcohol and Drug Abuse Patient Records regulations: The Federal rules restrict any use of the information to criminally investigate or prosecute any alcohol or drug abuse patient.[facility] CenterIn the event this information is protected by the Federal Confidentiality of Alcohol and Drug Abuse Patient Records regulations: The Federal rules restrict any use of the information to criminally investigate or prosecute any alcohol or drug abuse patient.[facility] CenterIn the event this information is protected by the Federal Confidentiality of Alcohol and Drug Abuse Patient Records regulations: The Federal rules restrict any use of the information to criminally investigate or prosecute any alcohol or drug abuse patient.[facility] CenterIn the event this information is protected by the Federal Confidentiality of Alcohol and Drug Abuse Patient Records regulations: The Federal rules restrict any use of the information to criminally investigate or prosecute any alcohol or drug abuse patient.[facility] CenterIn the event this information is protected by the Federal Confidentiality of Alcohol and Drug Abuse Patient Records regulations: The Federal rules restrict any use of the information to criminally investigate or prosecute any alcohol or drug abuse patient.[facility] CenterIn the event this information is protected by the Federal Confidentiality of Alcohol and Drug Abuse Patient Records regulations: The Federal rules restrict any use of the information to criminally investigate or prosecute any alcohol or drug abuse patient.[facility] CenterIn the event this information is protected by the Federal Confidentiality of Alcohol and Drug Abuse Patient Records regulations: The Federal rules restrict any use of the information to criminally investigate or prosecute any alcohol or drug abuse patient.[facility] CenterIn the event this information is protected by the Federal Confidentiality of Alcohol and Drug Abuse Patient Records regulations: The Federal rules restrict any use of the information to criminally investigate or prosecute any alcohol or drug abuse patient.[facility] CenterIn the event this information is protected by the Federal Confidentiality of Alcohol and Drug Abuse Patient Records regulations: The Federal rules restrict any use of the information to criminally investigate or prosecute any alcohol or drug abuse patient.[facility] CenterIn the event this information is protected by the Federal Confidentiality of Alcohol and Drug Abuse Patient Records regulations: The Federal rules restrict any use of the information to criminally investigate or prosecute any alcohol or drug abuse patient.[facility] Reason for Visit (unrecogniz ed section and content) Reason Comments Colon Cancer Reason Comments Patient Question Specialty Diagnoses / Procedures Referred By Renetta hinkle Referred To Contact CT IMAGING Diagnoses Malignant neoplasm of ascending colon (HCC) Procedures CT CHEST W IVCON DIAGNOSTIC COMPUTED TOMOGRAPHY THORAX [place] [address] [place] [address] Ct [facility] [place] [address] Referral ID Status Reason Start Date Expiration Date V isits Requested Visits Authorized [id number] Closed Auto-Generate d Referral 05/25/2024 06/24/2025 1 1 Reason Comments Pre-Op Exam Reason Comments Post Op Reason Comments Colon Cancer New patient consult Specialty Diagnoses / Procedures Referred By Renetta hinkle Referred To Contact Oncology Diagnoses Malignant neoplasm of ascending colon (HCC) Procedures CONSULT TO ONCOLOGY OFFICE/OUTPATIENT NEW HIGH MDM 60 [place] [address] [place] [address] Referral ID Status Reason Start Date Expiration Date V isits Requested Visits Authorized [id number] Closed PCP Requested Referral 06/26/2024 06/26/2025 1 [...] BE BASED ON THE PRIMARY CLINICAL RECORDS. [facility]. provides no warranty or guarantee of the accuracy or completeness of information in this document.
--- NOTE | 2025-03-07 12:40 | ECG_ITS ---
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 Measurements Intervals [place] Rate: 83 P: 20 [place]: 181 QRS: -30 QRSD: 98 T: 18 QT: 388 QTc: 457 Interpretive Statements SINUS RHYTHM POSSIBLE LEFT ATRIAL ENLARGEMENT [-0.1mV P WAVE IN V1/V2] BORDERLINE LEFT AXIS DEVIATION [QRS AXIS < -20] Compared to ECG 08/22/2024 14:37:15 Sinus bradycardia no longer present Myocardial infarct finding no longer present Electronically Signed On 03-07-2025 18:04:16 EDT by FELICIANO HANSEN M.D.
== END 2025-03-07 12:33 | disposition home or self-care (01) ==
LOC: PST 12:32
PROVIDERS: PCP Family Medicine; Visit Provider Surgery
DX: Z01.810 Encounter for preprocedural cardiovascular examination (principal); Z85.038 Personal history of other malignant neoplasm of large intestine; Z45.2 Encounter for adjustment and management of vascular access device; C18.9 Malignant neoplasm of colon, unspecified
CPT/HCPCS: 93005

== ENCOUNTER 2025-03-09 12:11 | Outpatient (RCR) | payer BC, SELFPAY ==
[2025-02-27 10:20] VITALS: BP 144/84; PULSE 71; TEMP 37.1; O2SAT 95
[2025-02-27] MEDS: ERTAPENEM SODIUM 1 GM in 0.9 % SODIUM CHLORIDE 50 ML IV (10:47)
[2025-02-27] MEDS: HEPARIN SODIUM (PORCINE) PF LOCK FLUSH 500 UNIT/5 ML SYRINGE IV (11:22)
[2025-02-28] MEDS: ERTAPENEM SODIUM 1 GM in 0.9 % SODIUM CHLORIDE 50 ML IV (14:30)
[2025-02-28 14:32] VITALS: BP 123/78; PULSE 60; TEMP 37; O2SAT 96
[2025-03-01 14:10] VITALS: BP 115/77; PULSE 64; TEMP 37.1; O2SAT 92
[2025-03-01] MEDS: ERTAPENEM SODIUM 1 GM in 0.9 % SODIUM CHLORIDE 50 ML IV (14:25)
[2025-03-01 14:38] LABS: Hematocrit 34.4 % (42.0-54.0); Hemoglobin 11.5 g/dL (14.0-18.0); Immature Granulocytes Abs Auto 0.04 10^3/uL (0.00-0.03); Immature Granulocytes Pct Auto 0.5 % (0.0-0.5); Lymphocytes Absolute Auto 1.7 10^3/uL (1.2-3.8); Mean Corpuscular HGB Conc 33.4 g/dL (29.9-35.2); Mean Corpuscular Hemoglobin 32.2 pg (25.9-34.0); Mean Corpuscular Volume 96.4 fL (80.0-94.0); Platelet Count 215 10^3/uL (150-450); Red Blood Count 3.57 10^6/uL (4.70-6.10); White Blood Count 7.9 10^3/uL (4.0-11.0)
[2025-03-01 14:58] LABS: Anion Gap 9.3; Blood Urea Nitrogen 10.0 mg/dL (7.0-18.0); Calcium 8.8 mg/dL (8.5-10.1); Carbon Dioxide 31.4 mmol/L (21.0-32.0); Chloride 103 mmol/L (98-107); Estimated GFR (African America >60 (>=60 mL/min/1.73m^2); Estimated GFR (Non-African Ame >60 (>=60 mL/min/1.73m^2); Glucose 109 mg/dL (74-106); Potassium 3.7 mmol/L (3.5-5.1); Sodium 140 mmol/L (136-145)
[2025-03-02 14:05] VITALS: BP 125/83; PULSE 96; TEMP 36.6; O2SAT 97
[2025-03-02] MEDS: ERTAPENEM SODIUM 1 GM in 0.9 % SODIUM CHLORIDE 50 ML IV (14:16)
[2025-03-04 13:07] VITALS: BP 136/82; PULSE 83; TEMP 36.7; O2SAT 96
[2025-03-04] MEDS: ERTAPENEM SODIUM 1 GM in 0.9 % SODIUM CHLORIDE 50 ML IV (13:12)
[2025-03-05 14:15] VITALS: BP 141/84; PULSE 75; TEMP 36.8; O2SAT 96
[2025-03-05] MEDS: ERTAPENEM SODIUM 1 GM in 0.9 % SODIUM CHLORIDE 50 ML IV (14:24)
[2025-03-06 14:08] VITALS: BP 140/87; PULSE 75; TEMP 36.6; O2SAT 92
[2025-03-06] MEDS: ERTAPENEM SODIUM 1 GM in 0.9 % SODIUM CHLORIDE 50 ML IV (14:16)
[2025-03-07 13:14] VITALS: BP 144/74; PULSE 68; TEMP 36.4; O2SAT 94
[2025-03-07] MEDS: ERTAPENEM SODIUM 1 GM in 0.9 % SODIUM CHLORIDE 50 ML IV (13:17)
[2025-03-08] MEDS: ERTAPENEM SODIUM 1 GM in 0.9 % SODIUM CHLORIDE 50 ML IV (14:15)
[2025-03-08 14:23] VITALS: BP 138/82; PULSE 63; TEMP 37.1; O2SAT 98
[2025-03-08 14:47] LABS: Hematocrit 39.3 % (42.0-54.0); Hemoglobin 13.0 g/dL (14.0-18.0); Immature Granulocytes Abs Auto 0.03 10^3/uL (0.00-0.03); Immature Granulocytes Pct Auto 0.4 % (0.0-0.5); Lymphocytes Absolute Auto 2.2 10^3/uL (1.2-3.8); Mean Corpuscular HGB Conc 33.1 g/dL (29.9-35.2); Mean Corpuscular Hemoglobin 32.1 pg (25.9-34.0); Mean Corpuscular Volume 97.0 fL (80.0-94.0); Platelet Count 268 10^3/uL (150-450); Red Blood Count 4.05 10^6/uL (4.70-6.10); White Blood Count 6.7 10^3/uL (4.0-11.0)
[2025-03-08 14:51] LABS: Anion Gap 10.6; Blood Urea Nitrogen 13.0 mg/dL (7.0-18.0); Calcium 9.0 mg/dL (8.5-10.1); Carbon Dioxide 28.6 mmol/L (21.0-32.0); Chloride 103 mmol/L (98-107); Estimated GFR (African America >60 (>=60 mL/min/1.73m^2); Estimated GFR (Non-African Ame >60 (>=60 mL/min/1.73m^2); Glucose 115 mg/dL (74-106); Potassium 4.2 mmol/L (3.5-5.1); Sodium 138 mmol/L (136-145)
[2025-03-09] MEDS: ERTAPENEM SODIUM 1 GM in 0.9 % SODIUM CHLORIDE 50 ML IV (12:21)
[2025-03-09 15:19] VITALS: BP 123/69; PULSE 68; TEMP 36.6; O2SAT 98
== END 2025-03-23 23:59 | disposition home or self-care (01) ==
LOC: INF 12:11
PROVIDERS: PCP Family Medicine; Visit Provider Internal Medicine
DX: R78.81 Bacteremia (principal); D64.9 Anemia, unspecified; D61.818 Other pancytopenia; D50.9 Iron deficiency anemia, unspecified; K90.9 Intestinal malabsorption, unspecified; D72.819 Decreased white blood cell count, unspecified; C18.0 Malignant neoplasm of cecum; R11.2 Nausea with vomiting, unspecified; D69.6 Thrombocytopenia, unspecified; E86.0 Dehydration; N17.9 Acute kidney failure, unspecified; J98.4 Other disorders of lung; I10 Essential (primary) hypertension; Z96.643 Presence of artificial hip joint, bilateral; R79.89 Other specified abnormal findings of blood chemistry; R16.1 Splenomegaly, not elsewhere classified; Z87.891 Personal history of nicotine dependence
CPT/HCPCS: 36415; 80048; 85025; 86140; 87040; 96365; G0463; J1335; J1642

== ENCOUNTER 2025-03-14 07:13 | Day surgery (SDC) | payer BC, SELFPAY ==
--- OUTSIDE RECORDS SUMMARY | 2024-11-21 05:15 | XMS_ITS ---
Author Organization The [facility] in [place] Address [address] [place] [address] Care Team Providers Care Grid Inspector Name Role Phone Nick Pratt Primary Care Provider [phone] Franklin Esteves Unavailable [phone] REASON FOR VISIT Dexamethasone Inj (Decadron, Dexa) IV Encounters Encounter Location Date Provider Diagnosis The [facility] On[facility] [address] [place] [phone] 11/21/2024 Franklin Esteves Plan Of Treatment Next Appt Details Provider Name:FRANKLIN ESTEVES , 03/20/2025 08:00:00 AM, [address] [place] [address], [phone], Progress Notes * Regla MARTINEZOB:1970 ([age] yo M)Acc No.[id number]:11/21/2024 UNLOCKED PROGRESS NOTE Progress Note Patient: Karolina OBRIENEddie METCALF :?Franklin Esteves M.D.:1970???Age:54 Y ???Sex:MaleDate:11/21/2024Phone:[phone]:[address] [id number]:Nick Pratt Subjective: * Chief Complaints: * 1 . Dexamethasone Inj (Decadron, Dexa) IV. * Medical History: Objective: * Vitals: Assessment: Plan: * Treatment: * * Electronic signature of Franklin Esteves MD, [id number] on 03/14/2025 at 07:16 AM EDTSign off status: PendingVisit Status:?CANC (Cancelled) * Provider: Ngozi Esteves M.D. Date: 0 11/21/2024 Generated for Printing/Faxing/eTransmitting on:?03/14/2025 07:16 AM EDT
--- OUTSIDE RECORDS SUMMARY | 2025-01-23 04:30 | XMS_ITS ---
Author Organization The [facility] [place] Address [address] [place] [address] Care Team Providers Care Dry Cell Sealer Name Role Phone Nick Pratt Primary Care Provider Franklin Esteves Unavailable [phone] REASON FOR VISIT MD Encounters Encounter Location Date Provider Diagnosis [facility] Oncology [address] [place] [address] 01/23/2025 Franklin Esteves Plan Of Treatment Next Appt Details Provider Name:FRANKLIN ESTEVES , 03/20/2025 08:00:00 AM, [address] [place], [address], Progress Notes * Regla MARTINEZOB:1970 ([age] yo M)Acc No.[id number]:01/23/2025 UNLOCKED PROGRESS NOTE Progress Notes Patient: Karolina Eddie ANNE :?Franklin Esteves M.D.:1970???Age:54 Y ???Sex:MaleDate:01/23/2025Phone:[phone]:[address], [id number]:Nick Pratt Subjective: * Chief Complaints: * 1 . MD. * Medical History: Objective: * Vitals: Assessment: Plan: * Treatment: * * Electronic signature of Franklin Esteves MD, [id number] on 03/14/2025 at 07:17 AM EDTSign off status: PendingVisit Status:?CANC (Cancelled) * Provider: Ngozi Esteves M.D. Date: 0 01/23/2025 Generated for Printing/Faxing/eTransmitting on:?03/14/2025 07:17 AM EDT
--- OUTSIDE RECORDS SUMMARY | 2025-02-20 04:00 | XMS_ITS ---
Author Organization [facility] in [place] Address [address] [place] [address] Care Team Providers Care Structural Steel Painter Name Role Phone Ncik Pratt Primary Care Provider FRANKLIN VILLANUEVA Unavailable [phone] REASON FOR VISIT MD Encounters Encounter Location Date Provider Diagnosis [facility] [address] [place] [address] 02/20/2025 FRANKLIN VILLANUEVA Plan Of Treatment Next Appt Details Provider Name:FRANKLIN VILLANUEVA , 03/20/2025 08:00:00 AM, [address] [place], [address], Progress Notes * Regla MARTINEZOB:1970 ([age] yo M)Acc No.[id number]:02/20/2025 UNLOCKED PROGRESS NOTE Progress Notes Patient: Karolina Eddie ANNE :?FRANKLIN VILLANUEVA M.D.:1970???Age:55 Y ???Sex:MaleDate:02/20/2025Phone:[phone]:Dulce [place], [id number]:Nick Pratt Subjective: * Chief Complaints: * 1 . MD. * Medical History: Objective: * Vitals: Assessment: Plan: * Treatment: * * Electronic signature of FRANKLIN VILLANUEVA MD on 03/14/2025 at 07:16 AM EDTSign off status: PendingVisit Status:?PEN (Pending) * Provider: Ngozi VILLANUEVA M.D. Date: 0 02/20/2025 Generated for Printing/Faxing/eTransmitting on:?03/14/2025 07:16 AM EDT
--- OUTSIDE RECORDS SUMMARY | 2025-02-27 06:30 | XMS_ITS ---
Author Organization [facility] in [place] Address [address] [place] [address] Care Team Providers Care Garment Tag Stringer Name Role Phone Nick Pratt Primary Care Provider FRANKLIN VILLANUEVA Unavailable [phone] REASON FOR VISIT MD Encounters Encounter Location Date Provider Diagnosis [facility] Oncology [address] [place] [address] 02/27/2025 FRANKLIN VILLANUEVA Plan Of Treatment Next Appt Details Provider Name:FRANKLIN VILLANUEVA , 03/20/2025 08:00:00 AM, [address] [place], [address], Progress Notes * Regla MARTINEZOB:1970 ([age] yo M)Acc No.[id number]:02/27/2025 UNLOCKED PROGRESS NOTE Progress Notes Patient: Karolina Eddie ANNE :?FRANKLIN VILLANUEVA M.D.:1970???Age:55 Y ???Sex:MaleDate:02/27/2025Phone:[phone]:[address], [id number]:Nick Pratt Subjective: * Chief Complaints: * 1 . MD. * Medical History: Objective: * Vitals: Assessment: Plan: * Treatment: * * Electronic signature of FRANKLIN VILLANUEVA MD on 03/14/2025 at 07:16 AM EDTSign off status: PendingVisit Status:?PEN (Pending) * Provider: Ngozi VILLANUEVA M.D. Date: Generated for Printing/Faxing/eTransmitting on:?03/14/2025 07:16 AM EDT
--- OUTSIDE RECORDS SUMMARY | 2025-02-27 11:15 | XMS_ITS ---
Author Organization [facility] in [place] Address [address] [place] [address] Care Team Providers Care Vision Therapist Name Role Phone Nick Pratt Primary Care Provider [phone] Franklin Esteves Unavailable [phone] REASON FOR VISIT MD Encounters Encounter Location Date Provider Diagnosis [facility] Oncology [address] [place] [address] 02/27/2025 Franklin Esteves Plan Of Treatment Next Appt Details Provider Name:FRANKLIN ESTEVES , 03/20/2025 08:00:00 AM, [address] [place], [address], Progress Notes * Regla MARTINEZOB:1970 ([age] yo M)Acc No.[id number]:02/27/2025 UNLOCKED PROGRESS NOTE Progress Notes Patient: Karolina Eddie ANNE :?Franklin Esteves M.D.:1970???Age:55 Y ???Sex:MaleDate:02/27/2025Phone:[phone]:[address], [id number]:Nick Pratt Subjective: * Chief Complaints: * 1 . MD. * Medical History: Objective: * Vitals: Assessment: Plan: * Treatment: * * Electronic signature of Franklin Esteves MD, [id number] on 03/14/2025 at 07:16 AM EDTSign off status: PendingVisit Status:?CANC (Cancelled) * Provider: Ngozi Esteves M.D. Date: Generated for Printing/Faxing/eTransmitting on:?03/14/2025 07:16 AM EDT
--- OUTSIDE RECORDS SUMMARY | 2025-02-27 11:15 | XMS_ITS ---
Author Organization [facility] in [place] Address [address] [place] [address] Care Team Providers Care Bag Shaker Name Role Phone Nick Pratt Primary Care Provider [phone] Franklin Esteves Unavailable [phone] REASON FOR VISIT MD Encounters Encounter Location Date Provider Diagnosis [facility] Oncology [address] [place] [address] 02/27/2025 Franklin Esteves Plan Of Treatment Next Appt Details Provider Name:FRANKLIN ESTEVES , 03/20/2025 08:00:00 AM, [address] [place], [address], Progress Notes * Regla MARTINEZOB:1970 ([age] yo M)Acc No.[id number]:02/27/2025 UNLOCKED PROGRESS NOTE Progress Notes Patient: Karolina Eddie ANNE :?Franklin Esteves M.D.:1970???Age:55 Y ???Sex:MaleDate:02/27/2025Phone:[phone]:[address], [id number]:Nick Pratt Subjective: * Chief Complaints: * 1 . MD. * Medical History: Objective: * Vitals: Assessment: Plan: * Treatment: * * Electronic signature of Franklin Esteves MD, [id number] on 03/14/2025 at 07:16 AM EDTSign off status: PendingVisit Status:?CANC (Cancelled) * Provider: Ngozi Esteves M.D. Date: Generated for Printing/Faxing/eTransmitting on:?03/14/2025 07:16 AM EDT
--- OUTSIDE RECORDS SUMMARY | 2025-03-02 06:30 | XMS_ITS ---
Author Organization [facility] in [place] Address [address] [place] [address] Care Team Providers Care Change Management Consultant Name Role Phone Nick Pratt Primary Care Provider Allergies No Known Allergies REASON FOR VISIT Presents to office alone for TCM from [place]., Currently doing IV atb at [facility] Medications Medication SIG (Take, Route, Frequency, Duration) Notes Start Date End Date Status Irbesartan 300 MG 1 tablet Orally Once a day; Du ration: 30 days 5Active Social History Tobacco Use: Social History Observation Description Date Details (start date - stop date) Former Smoker 05/24/1989 - 05/24/1992 Tobacco Use/Smoking Question Answer Notes Patient is a former smoker When did you start smoking?05/24/1989When did you stop smoking?05/24/1992How long has it been since you last smoked?> 10 yearsAdditional Findings: Tobacco UserChews tobaccoAUDIT-C (Standard) Question Answer Notes Did you have a drink containing alcohol in the p ast year? No Rgrmic4GxgyopczgaeayqFypkhqqq Vital Signs Weight 253.2 lbs 03/02/2025 Height 70 in 03/02/2025 Blood pressure systolic 142 mm Hg 03/02/20 25 Blood pressure diastolic 82 mm Hg 025 Temperature 96.5 degrees Fahrenheit 03/02/20 25 BMI 36.33 kg/m2 03/02/2025 Encounters Encounter Location Date Provider Diagnosis [facility] [address] [place] [address] 03/02/2025 Nick Pratt Other forms of angin a pectoris I20.89 and Cavitary lesion of lung J98.4 Assessments Encounter Date Diagnosis (ICD Code) Assessment Notes Treatment Notes Treatment Clinical Notes Section Notes 03/02/2025 Other forms of angina pectoris ( ICD-10 - I20.89) 03/02/2025avitary lesion of lung (ICD-10 - J98.4) Plan Of Treatment Pending Test Test Name Order Date CT CHEST W CON 03/02/2025 Next Appt Details Provider Name:FRANKLIN VILLANUEVA , 03/20/2025 08:00:00 AM, [address] [place], [address], Progress Notes * ZOLTANTEAGuillerminadDOB:1970 ([age] yo M)Acc No.[id number]:03/02/2025 Progress Note Patient: Eddie CABALLERO :?Delta Pratt ([facility]), MDDOB:1970???Age: 55 Y???Sex:MaleDate:03/02/2025Phone:[phone]:[address] , [place], [id number] In:10:11 AM ESTCheck Out:10:55 AM EST Subjective: * Chief Complaints: * P resents to office alone for TCM from [place].Currently doing IV atb at [facility] * HPI: ???General:? Hd blood cultyur done - sofar no growth. * ROS: ???EENT:?hearing changes?denies.?visual changes?denies. non-healing mouth sores?denies.?swollen glands or neck lumps?denies.?hoarseness?denies.?sore throat?denies.?difficulty swallowing?denies.?nose bleeds?denies.?nasal congestion?denies.?ear ache?denies.?ear discharge denies.?ringing in ears?denies.?light sensitivity?denies.?eye pain?denies.?blurring?denies.?eye irritation?denies.?double vision?denies. vision loss?denies.?General/Constitutional:?Sweats:?Denies.?Fatigue?denies.?Sleep proble ms?denies.?Anorexia?denies.?Malaise?denies.?Weight loss?denies. Fatigue or Weakness?denies.?Fever or Chills?denies.?Cardiovascular:?Shortness of Breath w/lying flat?denies.?Lightheadedne ss/dizziness?denies.?Chest tightness/ heavy pressure?denies.?Swelling of legs, a nkles, or feet?denies.?Waking up with shortness of breath?denies.?Chest pain&#16 0;denies.?Palpitations?denies.?Weight gain?denies.?Respiratory:?Chronic or frequent cough?denies.?Coughing up blood&#1 60;denies.?Difficulty breathing?denies.?Productive cough?denies.?Snoring&#1 60;denies.?Shortness of breath that awakens from sleep (PND)?denies.?Chest pain? denies.?Sputum production?denies.?Wheezing?denies.?Musculoskeletal:?Joint pain?denies.?Joint Fluid?denies.?Backpain?denies.?Knee pain?denies.?Neck pain?denies.?Joint Stiffness?denies.?Muscle cramps?denies.?Weakness of muscles?denies.?Arthritis?denies.?Muscle aches?denies.?Pain in shoulder(s)?denies.?Swollen joints?denies.? * Active Problem List G47.30 Sleep apnea Modified On:06/21/2023/U Status:ukkqpadacK73Mhzzaaawi Hypertension Modified On:08/09/2023/U Status:zghmkmqjdZ22.00Well adult Modified On:06/21/2023/U Status:whsybvuwrY17.9Gastric ulcer Modified On:07/29/2023/U Status:zjfpghpjsT35.89Other forms of angina pectoris Modified On:07/30/2023 Status:chpedszuuX45.9Chest pain Modified On:08/03/2023 Status:lkmozwvcxC20.90Acute sinusitis Modified On:08/09/2023 Status:bljptnpecV95.819Decreased white blood cell count, unspecified Modified On:08/19/2023 Status:gjkfozyfrI95.9Neutropenia, unspecified Modified On:08/19/2023 Status:zeriiggvcW91.6Thrombocytopenia, unspecified Modified On:08/19/2023 Status:qzzgyrcvzC89.9Neutropenic fever Modified On:08/24/2023 Status:wnhnwcotnZ70.819Leukopenia Modified On:09/15/2023 Status:zcnypxajwR63.9Neutropenia Modified On:09/15/2023 Status:lvjsoehnuU70.9Colon cancer Modified On:06/29/2024 Status:prsxdskbkI24.9Anemia Modified On:09/25/2024 Status:ohvwnukheF08.0Acute UTI Modified On:02/15/2025 Status:sxxqgfovkM49.4Cavitary lesion of lung Modified On:02/22/2025 Status:confirmed * Medical History: * Surgical History: C olonoscopy and Polypectomy 06/03/2018Bilateral Hip Replacement GD and Colonoscopy Dr Edmond 05/10/2024t External Jugular port e-cath Dr Edmond 07/05/24 * Hospitalization/Major Diagno stic Procedure: f ever 2023Sepsis 03/17 * Family History: F ather: alive. M other: alive. S on(s): alive. 3 son(s) - healthy. . * Social History: ???Tobacco Use:?Tobacco Use/Smoking?Patient is a?former smoker ?When did you start smoking??05/24/1989 ?When did you stop smoking??05/24/1992 ?How long has it been since you last smoked? > 10 years ?Additional Findings: Tobacco User?Chews tobacco ???Drug/Alcohol:?AUDIT-C (Standard)?Did you have a drink containing alcohol in the past year??No ?Points?0 ?Interpretation?Negative * Medications: T akingIrbesartan 300 MG Tablet 1 tablet Orally Once a day Taking Irbesartan 300 MG Tablet 1 tablet Orally Once a day DiscontinuedAmoxicillin-Pot Clavulanate 875- 125 MG Tablet 1 tablet Orally every 12 hrs Edarbi(Azilsartan Medoxomil) 80 MG Tablet 1 tablet Orally Once a day Pyridium(Phenazopyridine HCl) 200 MG Tablet 1 tablet after meals Orally Three times a day Medication List reviewed and reconciled with the patientDiscontinued Amoxicillin-Pot Clavulanate 875-125 MG Tablet 1 tablet Orally every 12 hrs Discontinued Edarbi(Azilsartan Medoxomil) 80 MG Tablet 1 tablet Orally Once a day Discontinued Pyridium(Phenazopyridine HCl) 200 MG Tablet 1 tablet after meals Orally Three times a day Medication List reviewed and reconciled with the patient * Allergies: N .K.D.A.no[Allergies Verified] Objective: * Vitals: W t:253.2lbs, Ht: 70 in, BP:142/82mm Hg, Temp:96.5F, BMI:36.33Index, Ht-cm: 177.8 cm, Wt-k.85 kg. * Examination: ???Physical Exam: ?GENERAL:?well developed, well nourished, in no acute distress.?HEAD:?normocephalic/atraumatic.?EYES:?pupils equal, round and reactive to light, conjunctivae and sclerae normal.?EARS:?no deformity or lesion of external ear, canals and TM appear normal bilaterally, TM's intact, not inflamed with normal light reflex, hearing grossly normal to conversational speech.?NOSE:?no deformity, discharge, inflammation, or lesions. ?MOUTH:?mucous membranes moist, normal oropharynx and posterior pharynx without lesions or exudates, tongue normal, dentition normal.?NECK:?neck supple, no masses or palpable cervical nodes, trachea midline, thyroid without nodules, masses, tenderness, or enlargement.?CHEST:?no chest wall deformity, no chest wall tenderness. ?LUNGS:?normal respiratory effort and clear to auscultation, no wheezes, rales, or rhonchi, good air exchange.?CARDIO:?regular rate and rhythm, normal S1 and S2, nor murmur, rub, or gallop.?PULSES:?normal capillary refill.?ABDOMEN:?soft, non-distended, non-tender, no masses.?MUSCULOSKELETAL:?no deformity or scoliosis noted, normal range of motion, joints normal, no erythema, edema, effusion, or ecchymosis.?EXTREMITY:?no clubbing, cyanosis, edema, or deformity withnormal ROM in both upper and lower bilateral extremities.?NEUROLOGIC:?grossly normal.?SKIN:?no rashes, ulcerations, or suspicious lesions.?LYMPH NODES:?no cervical adenopathy, nodes normal.?MENTAL STATUS:?alert and oriented x3, normal mood and affect.? Assessment: * Assessment: 1.?Other forms of angina pectoris - I20.89 (Primary)???2.?Cavitary lesion of lung - J98.4??? Plan: * Treatment: ?Imaging: CT CHEST W CON* schedule for early march * Procedure Codes: * Preventive Medicine: ??Screenings/Counseling:?BMI ACTION PLAN?Above Normal BMI Follow-up?Dietary management education, guidance, and counseling See treatment section of progress note for complete details of management plan. * * Sign off status: CompletedVisit Status:?CHK (Check Out) true * Provider: Talat Pratt ([facility])MD Date: Generated for Printing/Faxing/eTransmitting on:?03/14/2025 07:16 AM EDT History and Physical Notes * HPI (History of Present Illness) CategorySub-CategoryDetailNotesCategory NotesGeneralHd blood cultyur done - sofar no growth Examination CategorySub-CategoryDetailNotesCategory NotesPhysical ExamGENERAL:well developed, well nourished, in no acute distressHEAD:normocephalic/atraumatic EYES:pupils equal, round and reactive to light, conjunctivae and sclerae normal EARS:no deformity or lesion of external ear, canals and TM appear normal bilaterally, TM's intact, not inflamed with normal light reflex, hearing grossly normal to conversational speechNOSE:no deformity, discharge, inflammation, or lesionsMOUTH:mucous membranes moist, normal oropharynx and posterior pharynx without lesions or exudates, tonguenormal, dentition normalNECK:neck supple, no masses or palpable cervical nodes, trachea midline, thyroid without nodules, masses, tenderness, or enlargementCHEST:no chest wall deformity, no chest wall tendernessLUNGS:normal respiratory effort and clear to auscultation, no wheezes, rales, or rhonchi, good air exchangeCARDIO:regular rate and rhythm, normal S1 and S2, nor murmur, rub, or gallopPULSES:normal capillary refillABDOMEN:soft, non-distended, non-tender, no massesRECTAL:MUSCULOSKELETAL:no deformity or scoliosis noted, normal range of motion, joints normal, no erythema, edema, effusion, or ecchymosisEXTREMITY:no clubbing, cyanosis, edema, or deformity with normal ROM in both upper and lower bilateral extremitiesNEUROLOGIC:grossly normalSKIN:no rashes, ulcerations, or suspicious lesionsLYMPH NODES:no cervical adenopathy, nodes normalMENTAL STATUS:alert and oriented x3, normal mood and affect
[2025-03-07 13:02] VITALS: BP 130/80; PULSE 91; TEMP 36.4; O2SAT 98; BMI 35.9
--- NOTE | 2025-03-14 | OP_ITS ---
OPERATION DATE: 03/14/2025 PREOPERATIVE DIAGNOSIS: Personal history of stage IIIB colon cancer, port-a-cath no longer required. POSTOPERATIVE DIAGNOSIS: Personal history of stage IIIB colon cancer, port-a-cath no longer required with a 2 mm rectal polyp. PROCEDURE: Colonoscopy to ileocolic anastomosis with cold forceps polypectomy x1 for distal rectal polyp and port removal. SURGEON: Geoffrey Edmond M.D. ANESTHESIA: Monitored anesthesia care, as well as local with 0.5% Marcaine plain. ESTIMATED BLOOD LOSS: Less than 5 mL. INDICATIONS AND CONSENT: Patient is a 55-year-old male with history of stage IIIB cecal cancer, status post right hemicolectomy in May of 2024, now presents for screening colonoscopy, as well as port removal, which is no longer required. There is some concern of a seeding port, as far as infection. Indications, risks, benefits, alternatives of proceeding with colonoscopy and port removal were explained extensively to the patient, including the risks of bleeding, colon perforation, scarring, pain, need for further surgery. All of his questions were answered. Informed consent was obtained. PROCEDURE: Patient brought to the operating room, placed in the left lateral decubitus position. Monitored anesthesia care was provided. Rectal exam was performed which showed no masses or blood. The scope was inserted into the anal canal. Under direct visualization was advanced. With the aid of abdominal compression, it was advanced to the ileocolic anastomosis, which was widely patent. There was no nodularity or masses. No inflammatory changes. Upon withdrawal of the scope, mucosal surfaces were carefully examined. There were no mass lesions or inflammatory changes. No significant diverticulosis. Within the distal rectum, there was noted to be a 2 mm sessile, smooth polyp, that was removed with cold biopsy forceps with good hemostasis. There was no significant hemorrhoidal disease. The scope was then withdrawn. f/u surveillance colonoscopy likely in 3 years, but will depend on pathology report. Patient was then positioned in the supine position. The area around the port was prepped and draped in the usual sterile fashion. Previous incision, as well as the area around and under the port was anesthetized with 0.5% Marcaine plain. The old incision was then opened with a 15 blade and carried down to the subcutaneous tissue using sharp dissection. The port was freed up. The Prolene sutures were removed. The catheter was then removed. The tract leading up to the external jugular was then ligated with a 3-0 Monocryl suture. The scar capsule was then excised with needle tip electrocautery. The subcutaneous tissue was re-approximated with interrupted 3-0 Monocryl suture. Skin was then closed with a running 4-0 subcuticular Monocryl suture. Skin glue was applied, as well as sterile pressure dressing. Sponge and needle counts were correct x2 per nursing personnel. Patient tolerated procedure well, was sent to recovery room in good condition. CC: Delta Pratt M.D. BLAKE
--- OUTSIDE RECORDS SUMMARY | 2025-03-14 07:15 | XMS_ITS | CCD ---
Author Organization 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 Unavailable [phone] KATY CARIASARATBridget Admitting Unavailable DONIS CARIAS Attending [...] R Attending Unavailable Joseph Bragg MD Unavailable [phone] JOSEPH BRAGG Attending Unavailable KESHINRO, AJARATU Referring Unavailable HOY, GEN M Primary Care Unavailable KESHINRO, KATYARATU Referring Unavailable HOY, GEN M Primary Care Unavailable DONIS CARIAS Attending Unavailable NILL, JONE R Referring Unavailable HOY, GEN M Primary Care Unavailable KECRISTOBALINRO, ASHLEIGHU Attending Unavailable HOY, GEN M Primary Care Unavailable KESHINASHLEIGH GARCIAU Attending Unavailable HOY, GEN M Primary Care Unavailable MAYLIN CONTE Attending Unavailable MAYLIN CONTE Referring Unavailable HOY, GEN M Primary Care Unavailable Mariela Luna ZHU Attending Provider [phone] NON STAFF Primary Care Provider UnavailDevan Carrizales MD Attending Provider Kisha Esteves MD Attending Provider Devan Franklin Admitting Unavailable Devan Franklin Attending Unavailable Nill, Jone R Admitting Unavailable Nill, Jone R Attending Unavailable Rigoberto Devan T Admitting Unavailable Devan Franklin Attending Unavailable Danielito Kisha Admitting Unavailable Danielito, Kisha Attending Unavailable Allergies Allergy ClassificationReported Allergen(s)Allergy TypeDate of OnsetReaction(s) Facility (1 source)No Known Medication Allergies; Translations: [No Known Medication Allergies]Propensity to adverse reactions (disorder)[facility] Repository Medications Current Medications MedicationDrug Class(es)DatesSig (Normalized)Sig (Original)acetaminophen 500 mg oral tablet (13 sources)Start: 81-21-6812worr 2 tablets by mouth every six hours acetaminophen (TYLENOL) 500 mg tablet Take 2 tablets by mouth every 6 hours. 50 tablet 06/16/2024 ActiveAcidophilus Probiotic Blend (2 sources)Start: 44-52-5032tnin 1 capsule by mouth once dailyAcidophilus Probiotic Blend 1 cap(s), Oral, Daily, Refill(s) 0 Start Date: 06/28/24 Status: Orderedatorvastatin 40 mg oral tablet (4 sources)HMG-CoA Reductase Inhibitortake 1 tablet by mouth once daily atorvastatin (LIPITOR) 40 mg tablet Take 40 mg by mouth once daily. Active azilsartan medoxomil 80 mg oral tablet (20 sources)Angiotensin 2 Receptor BlockerStart: 29-51-0677bxrt 1 tablet by mouth once dailyStart: 06-09-6442MBOVRM 80 mg tab 05/25/2019 Activecapecitabine 500 mg oral tablet (1 source)Nucleoside Metabolic InhibitorStart: 12-27-2024 End: 86-34-0759cegv 3 tablets by mouth twice dailycapecitabine 500 mg Tab 1,500 mg = 3 tab(s), Oral, BID, X 2 week(s), Refills(s) 0 Start Date: 12/27/24 Stop Date: 01/10/25 Status: Ordered Repeat number: 10.4 ml enoxaparin sodium 100 mg/ml prefilled syringe (9 sources)Low Molecular Weight HeparinStart: 06-16-2024 End: 32-75-6643lhuykf 40 mg by subcutaneous injection every twenty-four hours enoxaparin (LOVENOX) 40 mg/0.4 mL Inject 0.4 mL subcutaneously every 24 hours for 21 days. 8.4 mL 06/16/2024 07/07/2024 Activeenteric contrast (will be provided with radiology test) (19 sources)Start: 51-17-0972jwtuhxr contrast (will be provided with radiology test) Indications: Malignant neoplasm of ascending colon (HCC) For CT CHESTABD/PEL W IVCON Routine order Administer, As Directed One Time Only, via Or al, Rectal, both Oral and Rectal, Enteric Tube, Stoma or Indwelling Catheter, Enteric Contrast as designated per enteric contrast guidelines 1 Each 05/25/2024 Activeferrous sulfate 325 mg delayed release oral tablet (4 sources)ferrous sulfate 325 mg (65 mg iron) EC tablet Take 325 mg by mouth. Activeiv contrast (will be provided with radiology test) (19 sources)Start: 85-08-4189gi contrast (will be provided with radiology test) Indications: Malignant neoplasm of ascending colon (HCC) CT Chest ABD/PEL- Inject, intravenously, once for 1 dose.No IV access, [...] 1 Each 05/25/2024 Active lactobacillus rhamnosus gg [id number] unt oral capsule (13 sources)Start: 06-16-2024 End: 50-78-8171vnfs 1 capsule by mouth once dailylactobacillus rhamnosus (CULTURELLE) 10 billion cell capsule Take 1 capsule by mouth once daily. 30 capsule 06/16/2024 Activemethocarbamol 500 mg oral tablet (12 sources)Muscle RelaxantStart: 65-04-3130iwhp 1 tablet by mouth three times dailymethocarbamol (ROBAXIN) 500 mg tablet Take 1 tablet by mouth three times a day. 20 tablet 06/23/2024 ActivemetroNIDAZOLE 500 mg oral tablet (6 sources)Nitroimidazole AntimicrobialStart: 85-87-4343inyphZPKDDELX (FLAGYL) 500 mg tablet Indications: Malignant neoplasm of ascending colon (HCC) Take 1 tablet by mouth as directed. Take one tab at 6:00 p.m., another at 7:00 p.m. and the last one at 11:00 p.m., prior to surgery 3 tablet 05/25/2024 Activeneomycin sulfate 500 mg oral tablet (6 sources)Aminoglycoside AntibacterialStart: 72-04-5789omndldoa 500 mg tablet Indications: Malignant neoplasm of ascending colon (HCC) Take 2 tablets by mouth as directed. Take two tabs at 6:00 p.m., 7:00 p.m. and 11:00 p.m., prior to surgery 6 tablet 05/25/2024 Activeondansetron 8 mg oral tablet (7 sources)Serotonin-3 Receptor AntagonistStart: 99-99-3017qzvo 1 tablet by mouth every eight hours as neededondansetron (ZOFRAN) 8 mg tablet Take 1 tablet by mouth every 8 hours as needed for nausea/vomiting. 90 tablet 2 06/29/2024 ActiveoxyCODONE hydrochloride 5 mg oral tablet (3 sources)Opioid AgonistStart: 06-16-2024 End: 86-06-2339pnrf 1 tablet by mouth every six hours as neededoxyCODONE IR (ROXICODONE) 5 mg immediate release tablet Indications: Post-op pain Take 1 tablet by mouth every 6 hours as needed for up to 7 days. 25 tablet 06/16/2024 06/23/2024 Activepantoprazole 40 mg delayed release oral tablet (6 sources)Proton Pump InhibitorStart: 33-86-8071zkqg 1 tablet by mouth once dailyProtonix 40 mg Tab-DR 40 mg = 1 tab(s), Oral, Daily, Refills(s) 0 Start Date: 04/18/24 Status: Orderedprochlorperazine 10 mg oral tablet (7 sources)PhenothiazineStart: 91-97-5972kohw 1 tablet by mouth every six hours as neededprochlorperazine (COMPAZINE) 10 mg tablet Take 1 tablet by mouth every 6 hours as needed. 100 tablet 2 06/29/2024 Activesucralfate 1000 mg oral tablet (2 sources)Aluminum ComplexStart: 45-42-7229Dbqtshym 1 gram Tab 1 gm = 1 tab(s), Oral, QIDACHS, Refills(s) 0 Start Date: 04/17/24 Status: Ordered Problems Active Problems Problem ClassificationProblemDateDocumented DateEpisodic/ChronicAbdominal hernia (2 sources)Incisional hernia; Translations: [Incisional hernia without obstruction or gangrene]Onset: 421518-62-9091LzresypkXwyfrcsyd pain (12 sources)Epigastric pain; Translations: [Epigastric pain]Onset: 04-25-2024 EpisodicAlcohol-related disorders (5 sources)History of alcohol ziqdy86-17-2181PjuqkjpYrgvrt of colon (20 sources)Malignant tumor of ascending colon; Translations: [Malignant neoplasm of ascending colon]Onset: 675027-18-3246KyclahdZojkqn of colon (2 sources)Personal history of other malignant neoplasm of large intestine; Translations: [History of malignant neoplasm of colon]Onset: 06-21-2024 88-89-6024PkmuawlyQzczbehnsl and other anemia (5 sources)Vheoggoaxnnn63-47-9916CwbpelcLcjywabjzk and other anemia (6 sources)Iron deficiency anemia; Translations: [Iron deficiency anemia, unspecified]Onset: 54-14-0343BtmaqpmhNoonmtvyan and other anemia (5 sources)Ehkvfx88-91-5031VsrwzeyhJbkaahjfc of lipid metabolism (6 sources)Hyperlipidemia, unspecified; Translations: [Hyperlipidemia]Onset: 994200-05-7316NhonhauTsehvsevp hypertension (20 sources)Essential (primary) hypertension; Translations: [Essential hypertension]Onset: 036768-20-9013VkefjdbFlipckwcu of unspecified nature or uncertain behavior (4 sources)Neoplasm of uncertain behavior of hiwok54-59-5326NcjxmsedLssoa aftercare (3 sources)Surgical follow-up; Translations: [Encounter for follow-up examination after completed treatment for conditions other than malignant neoplasm]39-84-8967IgtewaevPrxco gastrointestinal disorders (5 sources)Intestinal msubjstmcvbbw51-37-3084SdtcfwlCcros gastrointestinal disorders (1 source)Abnormal feces; Translations: [Other fecal abnormalities]Onset: 95-06-4864QqdmexatDuyzh gastrointestinal disorders (5 sources)Occult blood in wutijw23-75-0731UaerzqfhZodsb gastrointestinal disorders (4 sources)Mass of qdopq93-22-9790GuksodcpFoeau liver diseases (5 sources)Steatosis of npmme42-24-4966GlsvnmvYkoxw nervous system disorders (1 source)Other acute postprocedural pain; Translations: [Post-op pain]Onset: 29-20-9280XbltjbghItxeu nutritional; endocrine; and metabolic disorders (20 sources)Body mass index 30+ - obesity; Translations: [Body mass index (BMI) 38.0-38.9, adult]Onset: 432608-40-2085LmzvsawSatlt nutritional; endocrine; and metabolic disorders (5 sources)Morbid zjzqrde66-99-3182ThwsfnrFoydp upper respiratory infections (6 sources)Viral upper respiratory tract infection; Translations: [Acute upper respiratory infection, unspecified]24-81-8335ZhrwodyyOxodqivx codes; unclassified (4 sources)Obstructive sleep apnea (adult) (pediatric); Translations: [OBSTRUCTIVE SLEEP APNEA]Onset: 35-06-4045MobjmwsXayjpcfb codes; unclassified (5 sources)Sleep srbar17-39-8106QcjdfrmLcvtoqlu codes; unclassified (15 sources)Obstructive sleep apnea syndrome; Translations: [Obstructive sleep apnea (adult) (pediatric)]Onset: 996546-17-2370MrcssbsEtojwypz codes; unclassified (1 source)Acquired absence of other specified parts of digestive tract; Translations: [Status post partial colectomy]Onset: 83-59-3522AxgidtcgNkhiqxspn- related disorders (13 sources)Nicotine dependence; Translations: [Nicotine dependence, unspecified, uncomplicated]Onset: hronic Past or Other Problems Problem ClassificationProblemDateDocumented DateEpisodic/ChronicComplications of surgical procedures or medical care (20 sources)Wound dehiscence; Translations: [Disruption of wound, unspecified, initial encounter]Onset: 06-21-2024 Resolved: 490978-34-8826CzlibsshSmiwyfz and fatigue (1 source)Other fatigue; Translations: [OTHER FATIGUE]Onset: 00-91-1813Felfwzcp Other aftercare (1 source)Other alf (current) drug therapy; Translations: [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NormalUf Health Le[facility] Hospital Physician GroupComment on above: Performed By: #### CUU #### [place] [address] USABlood Cultureon 20-22-0150Rmyrmxri identified Cx Nom (Bld) Gram Stain Gram Negative Bacilli ORGANISM: Klebsiella aerogenes (O:KLEAER) Organism Comments For PARTH Refer to Final Report of Blood Culture Collected Date 02/20/25 PERFORMED BY: [address] [address] PATHOLOGIST BLOCKER HAND YEYO DAVIS M.D.[facility] Physician GroupComment on above: Performed By: #### CUBLD #### [address] [address] USABacteria identified Cx Nom (Bld)Gram Stain Gram Negative Bacilli ORGANISM: Klebsiella aerogenes [...] <8 Tetracycline S <4 Tobramycin S <2 Trimethoprim/Sulfamethoxazole S 04/11 S = SUSCEPTIBLE I = [...] RESISTANT TO ALL B-LACTAM DRUGS. PERFORMED BY: [address] [address] PATHOLOGIST BLOCKER HAND YEYO DAVIS M.D.[facility] Physician GroupComment on above: Performed By: #### CUBLD #### [address] [place] [address] USAUrine Cultureon 96-22-7155Tzqrouas identified Cx Nom (U)No Growth 2 Days PERFORMED BY: [place] [address] PATHOLOGIST BLOCKER HAND YEYO DAVIS M.D.[facility] Physician GroupComment on above: Performed By: #### CUU #### [facility] [address] [place] [address] USAUrine Cultureon 65-71-5657Ztxiyjtj identified Cx Nom (U)No Growth 2 Days PERFORMED BY: [place] [address] PATHOLOGIST BLOCKER HAND YEYO DAVIS M.D.[facility] Physician GroupComment on above: Performed By: #### CUU #### [place] [address] USAUrine cultureOrdered By: Devan Franklin on 02-02-2025 Bacteria identified Cx Nom (U)No Growth 2 DaysSum[facility] Influenza virus A and B and SARS-CoV-2 (COVID-19) RNA panel - Respiratory system specOrdered By: Luna Sierra on 33-13-9950Ggycmwxgj virus A and B RNA and SARS-CoV-2 (COVID-19) N gene panel ALEXIS+probe (Resp)NegativeSumma Health Barberton CampusLaboratory - Microbiology and Antimicrobial susceptibilityOrdered By: Luna Sierra on 71-54-5895YVSL-CoV-2 (COVID-19) RNA ALEXIS+probe Ql (Unsp spec) NegativeSumma Health Barberton CampusNo Panel InformationOrdered By: Luna Sierra on 38-70-5445NJP Influenza B (ALEXIS)NegativeSumma Health Barberton Campus CNOVon 92-43-8926VUIBTjccaf Visit ([facility]) PIPER RODRÍGUEZ ([id number]) 1970 M Date Time Provider Department 01/11/25 1:00 PM DONIS CARIAS [facility] During your visit today, we recorded the following information about you: Pulse Blood pressure Weight Height 69/minute 130/80 114.3 kg 1.778 m Donis Carias MD 01/11/2025 1:34 PM Signed [facility] January 11, 2025 Piper Rodríguez 54 year old Recording using Luxanova software for draft documentation of the visit was discussed with the patient/authorized employment program representative; all questions welcomed and answered. Patient/authorized employment program representative agreed to proceed Chief Complaint: abdominal [...] Magallanes: Seth Castro operative note (path pending) [id number] Pathology Scan on 05/22/2024 8:26 AM by Be Cloud: [facility]-Surgical Pathology Report 05/11/24 COLON, Biopsy, Cecum: COLONIC TISSUE WITH INVASIVE ADENOCARCINOMA, MODERATELY DIFFERENTIATED, ULCERATION NOTED 2. COLON, Biopsy, Sigmoid: LARGE TUBULAR ADENOMA (>1 CM), NEGATIVE FOR HIGH GRADE DYSPLASIA, AREAS SHOWING CAUTERY ARTIFACT ARE POSITIVE FOR ADENOMATOUS GLANDS 3. COLON, Biopsy, Descending: TUBULAR ADENOMA. NEGATIVE FOR HIGH GRADE DYSPLASIA FINAL DIAGNOSIS Terminal i (more content not included)...[facility] Ambulatory Visit Summaryon 67-38-0926Bfxwtbozbl Visit SummaryAmbulatory Visit Summary PIPER RODRÍGUEZ :1970 Visit Date:12/27/2024 [...] Arthroplastyof left hip, Arthroplasty of right hip. Discharge [...] signed up for this yet, please contact [employer] at [phone] to get signed up today. Language Information Language assistance services are available as needed. [facility] HospitalCNOVon 93-31-0096WQFNYufcsy Visit ([facility]) PIPER RODRÍGUEZ ([id number]) 1970 M Date Time Provider Department 10/24/24 10:00 AM DONIS CARIAS [facility] During your visit today, we recorded the following information about you: Pulse Blood pressure Weight 71/minute 160/91 114.7 kg Donis Carias MD 10/24/2024 10:19 AM Signed [facility] Recording using Luxanova software for draft documentation of the visit was discussed with the patient/authorized employment program representative; all questions welcomed and answered. 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 He underwent evaluation by a sawdust drier, including an echocardiogram, which was reportedly normal. [...] defect Colonoscopy 06/03/2018 - Dr Hedrick @ [facility] Scan on 05/15/2024 9:54 AM by Be Cloud: Seth Castro- Operative Report 06/03/18 Colonoscopy 05/10/24 - Dr. Hedrick @ [facility] Scan on 05/16/2024 9:34 AM by Norma Magallanes: [facility] operative note (path pending) [id number] Pathology Scan on 05/22/2024 8:26 AM by Be Cloud: [facility]-Surgical Pathology Report 05/11/24 COLON, Biopsy, Cecum: COLONIC TISSUE WITH INVASIVE ADENOCARCI (more content not included)...Normal [facility]29on 65-24-870515Enqnsibu by: JOE JONES on: 09/27/2024 04:14 PM Modules accepted: OrdersNormalUniversWright-Patterson Medical CenterOffice Visiton 77-18-8090Qpkzrs-up [id number] Piper Rodríguez 1970 M Date Provider Department Center 09/27/2024 18592-GZVNJOE JONES [facility] Facilityah[facility] Chin. No family history on file Level of Service:68933 [place] OFFICE/OUTPATIENT ESTABLISHED MOD MDM [address] [facility] HospitalOrders Onlyon 50-21-0539Eljztv [id number] Piper Rodríguez 1970 M Date Provider Department Center 09/27/2024 05538-VGGTKSXNANUSHA HAMPTON [facility] Curt Chin. No family history on fileNormalUniCleveland Clinic Fairview HospitalAbstracton [id number] Piper Rodríguez 1970 M Date Provider Department Center 09/26/2024 3244-RAN GONSALEZ [facility] No family history on fileNormalUniversity of St. [facility] Medical CenterAmbulatory Visit Summaryon 45-25-6479Gcylczjphz Visit SummaryAmbulatory Visit Summary PIPER RODRÍGUEZ :1970 Visit Date:07/18/2024 [...] you for choosing us for your care. [facility] HospitalGeneral Surgery Office/Clinic Noteon 75-40-6635Wffrnxx Surgery Office/Clinic NoteGeneral Surgery Office/Clinic Note Chief Complaint post operative foloow up HPI Staff 13 day post operative follow up post insertion of Onyyqh-d-ymdl. Denies discomfort, no use of pain medication. [...] (COVID-19) mRNA-1273 vaccine 08/22/2020 Recorded 2024-04-17: TPV40 [facility] HospitalComment on above:Result Comment: Electronically Signed By: Jone HEDRICK MD\Date and Time Signed: 07/18/24 14:26 Ashu 12-72-2939TESQRavvgp Visit ([id number]) PIPER RODRÍGUEZ ([id number]) 1970 M Date Time Provider Department 07/07/24 9:00 AM MAYLIN CONTE [id number] During your visit today, we recorded the [...] for internal providers or letter via the [employer] for external providers. Chief Complaint: [...] no acute distress, well-hydrated, (more content not included)...NormalCoshocton Regional Medical CenterCNPNon 06-30-2024 CNPNTelephone ([place]) PIPER RODRÍGUEZ ([id number]) 1970 M Date Time Provider Department 06/30/24 CHELLE WILLISASA During your visit today, we recorded the following information about you: Chelle Willis RN 06/30/2024 11:10 AM Signed Voicemail received from pt's stating pt will be going to [place] to see their oncologist, and doesn't wish [...] 06/23/2024 Encounter Status:Closed by SABI ALLEN on 06/30/24NoCleveland Clinic Medina HospitalCNPNon 27-94-6333HXLEDzebpkbxq ([place]) PIPER RODRÍGUEZ ([id number]) 1970 M Date Time Provider Department 06/29/24 [...] nausea/vomiting.Disp: 90 tabletRfl: 2 CONSULT TO SURVIVORSHIP [[id number]] Order #: [id number]: 1 FUTURE CONSULT TO ONCOLOGY NUTRITION [[id number]] Order #: [id number]: 1 FUTURE Prescriptions as of 07/05/2024 - [...] nausea/vomiting. Encounter Status:Closed by CHELLE WILLIS on 07/05/24[facility] ShawAmbulatory Visit Summaryon 88-82-5384Xfuarcykqt Visit SummaryAmbulatory Visit Summary PIPER RODRÍGUEZ Marychuy :1970 Visit Date:06/28/2024 Ambulatory Visit Instructions Your [...] you for choosing us for your care. [facility] HospitalCNOVSPon 67-82-9805EQOWCCCirmx (SP) Office ([place]) PIPER RODRÍGUEZ ([id number]) 1970 M Date Time Provider Department 06/28/24 11:00 AM JOSEPH BRAGG During your visit today, we recorded the following information about you: Temperature Pulse Respiration Blood pressure 97.3 degrees 74/minute 18/minute 118/79 Weight Height 115.3 kg 1.778 m Joseph Bragg MD 06/28/2024 11:29 AM Signed PATIENT NAME: Piper Rodríguez CLINIC NO.: [id number] ATTENDING PHYSICIAN: Joseph Bragg MD DATE OF SERVICE: June 28, [address] Donis Carias [address] [facility] [address] thank you for referring Piper Rodríguez for [...] pT3 pN1b. [employer] Works in a [employer]. Grand mother has colon cancer. No smoking. [...] lb) General appearance:ECOG PER (more content not included)...NormalThe [facility] metabolic 2000 panelon 77-17-3270Whkgz gap [Moles/Vol]10 mmol/L Normal8-15[facility]amclean hospital HospitalComment on above:Order Comment: Specimen Type: BLOOD SPECIMENOrdering Facility: [facility] Address:[address] [place], [place] [address]Performed By: #### 76834-2, , 2776-05 ####AM[facility] LABORATORYCLIA [id number] [place] [address] [place] OF AMERICACalcium [Mass/Vol]8.9 mg/dLNormal8.5-10.2Fspringfield hospital medical center HospitalComment on above:Order Comment: Specimen Type: BLOOD SPECIMENOrdering Facility: [facility] Address:[address] [place], [place] [address]Performed By: #### 89346-6, , 2776-05 ####AMRITA LABORATORYCLIA [id number] [place] [id number] [place] OF AMERICAChloride [Moles/Vol]104 mmol/L Tlrbjx30-321Zystgekk HospitalComment on above:Order Comment: Specimen Type: BLOOD SPECIMENOrdering Facility: [facility] Address:[address] [place], [place] [address]Performed By: #### 03112-5, , 2776-05 ####AMRITA LABORATORYCLIA [id number] [place] [id number] [place] AMERICACO2 [Moles/Vol]24 mmol/HEpzuwo02-63Aawxjtbl Hospital Comment on above:Order Comment: Specimen Type: BLOOD SPECIMENOrdering Facility: [facility] Address:[address] [place], [place] [address] Performed By: #### 11395-1, , 2776-05 ####AMRITA LABORATORYCLIA [id number] [place] [id number] [place] Creatinine [Mass/Vol]0.96 mg/dLNormal0.73-1.22[facility]am[facility] HospitalComment on above: Order Comment: Specimen Type: BLOOD SPECIMENOrdering Facility: [facility] Address:[address] [place], [place] [address]Performed By: #### 56678- 2, , 2776-05 ####AMRITA LABORATORYCLIA [id number] [place] [id number] [place] AMERICACreatinine and Glomerular filtration rate.predicted panel (S/P/Bld)95 mL/min/1.73m???Normal>=60[facility] on above:Order Comment: Specimen Type: BLOOD SPECIMENOrdering Facility: [facility] Address:[address] [place], [place] [address]Result Comment: Estimated Glomerular Filtration Rate (eGFR) is calculated using the 2020 CKD-EPI creatinine equation. This equation utilizes serum creatinine, sex, and age as parameters. The creatinine assay has traceable calibration to isotope dilution-mass spectrometry. Refer to KDIGO guidelines for clinical interpretation. In patients with unstable renal function, e.g. those with acute kidney injury, the eGFR may not accurately reflect actual GFR. Performed By: #### 94550-7, , 2776-05 ####AMRITA LABORATORYCLIA [id number] [place] [id number] [place] AMERICAGlucose [Mass/Vol]105 mg/cSLjwf72-91Uybdfmih HospitalComment on above:Order Comment: Specimen Type: BLOOD SPECIMENOrdering Facility: [facility] Address:[address] [place] [address] Comment: The [place] Diabetes Association (ADA) provides guidance for cutoff [...] Standards of Medical Care in Diabetes 2016, [place] [employer] Association. Diabetes Care. 2016.39(Suppl 1).Performed By: #### 89027-8, , 2776-05 ####AMRITA LABORATORYCLIA [id number] [place] [id number] [place] AMERICAPotassium [Moles/Vol]4.2 mmol/LNormal3.7-5.1 [facility] HospitalComment on above:Order Comment: Specimen Type: BLOOD SPECIMENOrdering Facility: [facility] Address:[address] [place], [place] [address]Performed By: #### 95511-0, , 2776-05 ####AMRITA LABORATORYCLIA [id number] [place] [id number] [place] OF AMERICASodium [Moles/Vol]138 mmol/PSvuxup321-523Vzegtuxr HospitalComment on above:Order Comment: Specimen Type: BLOOD SPECIMENOrdering Facility: [facility] Address:[address] [place], [place] [address]Performed By: #### 19493-6, , 2776-05 ####AMRITA LABORATORYCLIA [id number] [place] [id number] [place] AMERICAUrea nitrogen [Mass/Vol]13 mg/dLNormal9-24FaEssex HospitalComment on above:Order Comment: Specimen Type: BLOOD SPECIMENOrdering Facility: [facility] Address:[address] [place], [place] [address]Performed By: #### 38688-1, , 2776-05 ####AMRITA LABORATORYCLIA [id number] [place] [id number] [facility]ITALCB W Auto Differential panel (Bld)on 06-23-2024 Basophils (Bld) [#/Vol]0.05 10*3/uLNormal<0.11[facility]ett Memorial HospitalComment on above: Order Comment: Specimen Type: BLOOD SPECIMENOrdering Facility: [facility] Address:[address] [place], [place] [address]Performed By: #### 72690- 8 ####AMRITA LABORATORYCLIA [id number] [place] [id number] [place] AMERICABasophils/100 WBC (Bld)0.8 %NormalFamclean hospital Hospital Comment on above:Order Comment: Specimen Type: BLOOD SPECIMENOrdering Facility: [facility] Address:[address] [place] [address] Performed By: #### 49826-5 ####AMRITA LABORATORYCLIA [id number] [place] [id number] [place] AMERICADifferential cell count method Nom (Bld)AutoNormalWaynesville HospitalComment on above:Order Comment: Specimen Type: BLOOD SPECIMENOrdering Facility: [facility] Address:[address] [place], [place] [address]Performed By: #### 23571-7 ####AMRITA LABORATORYCLIA [id number] [place] [id number] [place] AMERICAEosinophils (Bld) [#/Vol]0.30 10*3/uLNormal<0.46Waynesville HospitalComment on above:Order Comment: Specimen Type: BLOOD SPECIMENOrdering Facility: [facility] Address:[address] [place] [address] Performed By: #### 91802-7 ####AMRITA LABORATORYCLIA [id number] [place] [id number] [place] AMERICAEosinophils/100 WBC (Bld)4.6 % NormalWaynesville HospitalComment on above:Order Comment: Specimen Type: BLOOD SPECIMENOrdering Facility: [facility] Address:[address] [place], [place] [address]Performed By: #### 49906-7 ####AMRITA LABORATORYCLIA [id number] [place] [id number] [place] Erythrocyte distribution width (RBC) [Ratio]14.6 %Fkkfpu34.5-15.0[facility] hospital HospitalComment on above:Order Comment: Specimen Type: BLOOD SPECIMENOrdering Facility: [facility] Address:[address] [place], [place] [address]Performed By: #### 93381-4 ####AMRITA LABORATORYCLIA [id number] [place] [id number] [place] OF AMERICAHematocrit (Bld) [Volume fraction]38.0 %Low39.0-51.0[facility] hospital HospitalComment on above:Order Comment: Specimen Type: BLOOD SPECIMENOrdering Facility: [facility] Address:[address] [place], [place] [address]Performed By: #### 38658- 8 ####AMRITA LABORATORYCLIA [id number] [place] [id number] [place] AMERICAHemoglobin (Bld) [Mass/Vol]11.9 g/dLLow13.0-17.0Waynesville HospitalComment on above:Order Comment: Specimen Type: BLOOD SPECIMENOrdering Facility: [facility] Address:[address] [place], [place] [address]Performed By: #### 77190-4 ####AMRITA LABORATORYCLIA [id number] [place] [id number] [place] AMERICAImmature granulocytes (Bld) [#/Vol]0.04 10*3/uLNormal<0.10Waynesville HospitalComment on above:Order Comment: Specimen Type: BLOOD SPECIMENOrdering Facility: [facility] Address:[address] [place], [place] [address]Performed By: #### 14545- 8 ####AMRITA LABORATORYCLIA [id number] [place] [id number] [place] AMERICAImmature granulocytes/100 WBC (Bld)0.6 %NormalWaynesville HospitalComment on above:Order Comment: Specimen Type: BLOOD SPECIMENOrdering Facility: [facility] Address:[address] [place], [place] [address]Performed By: #### 47127-9 ####AMRITA LABORATORYCLIA [id number] [place] [id number] [place] OF AMERICALymphocytes (Bld) [#/Vol]1.78 10*3/uLNormal1.00-4.00Waynesville HospitalComment on above:Order Comment: Specimen Type: BLOOD SPECIMENOrdering Facility: [facility] Address:[address] [place], [place] [address]Performed By: #### 99304- 8 ####AMRITA LABORATORYCLIA [id number] [place] [address] [place] [facility]ITAL CENTERLymphocytes/100 WBC (Bld)27.0 %NormalWaynesville Hospital Comment on above:Order Comment: Specimen Type: BLOOD SPECIMENOrdering Facility: [facility] Address:[address] [place] [address] Performed By: #### 32977-5 ####AMRITA LABORATORYCLIA [id number] [address] (RBC) [Entitic mass]29.3 sbSkxrnf61.0-34.0[facility] hospital HospitalComment on above:Order Comment: Specimen Type: BLOOD SPECIMENOrdering Facility: [facility] Address:[address] [place], [place] [address]Performed By: #### 50024-9 ####AMRITA LABORATORYCLIA [id number] [address]ETMCHC (RBC) [Mass/Vol]31.3 g/uTPjrnrj66.5-36.0Waynesville HospitalComment on above:Order Comment: Specimen Type: BLOOD SPECIMENOrdering Facility: [facility] Address:[address] [place], [place] [address]Performed By: #### 40215- 8 ####AMRITA LABORATORYCLIA [id number] [address] (RBC) [Entitic vol]93.6 rDUtypmh74.0-100.0[facility] hospital HospitalComment on above:Order Comment: Specimen Type: BLOOD SPECIMENOrdering Facility: [facility] Address:[address] [place], [place] [address]Performed By: #### 12334-2 ####AMRITA LABORATORYCLIA [id number] [address]Monocytes (Bld) [#/Vol] 0.84 10*3/uLNormal<0.87[facility] HospitalComment on above:Order Comment: Specimen Type: BLOOD SPECIMENOrdering Facility: [facility] Address:[address] [place], [place] [address]Performed By: #### 08384-5 ####AMRITA LABORATORYCLIA [id number] [place] [id number] [place] AMERICAMonocytes/100 WBC (Bld)12.7 %NormalWaynesville HospitalComment on above: Order Comment: Specimen Type: BLOOD SPECIMENOrdering Facility: [facility] Address:[address] [place], [place] [address]Performed By: #### 87761- 8 ####AMRITA LABORATORYCLIA [id number] [place] [id number] [place] AMERICANeutrophils (Bld) [#/Vol]3.58 10*3/uLNormal1.45-7.50 Waynesville HospitalComment on above:Order Comment: Specimen Type: BLOOD SPECIMENOrdering Facility: [facility] Address:[address] [place], [place] [address]Performed By: #### 49297-2 ####AMRITA LABORATORYCLIA [id number] [place] [id number] [place] Neutrophils/100 WBC (Bld)54.3 %NormalWaynesville HospitalComment on above:Order Comment: Specimen Type: BLOOD SPECIMENOrdering Facility: [facility] Address:[address] [place], [place] [address]Performed By: #### 82857- 8 ####AMRITA LABORATORYCLIA [id number] [place] [id number] [place] AMERICANucleated RBC (Bld) [#/Vol]10*3/uLNormal<0.01Waynesville HospitalComment on above:Order Comment: Specimen Type: BLOOD SPECIMENOrdering Facility: [facility] Address:[address] [place], [place] [address]Performed By: #### 53883-5 ####AMRITA LABORATORYCLIA [id number] [place] [id number] [place] AMERICANucleated RBC/100 WBC (Bld) [Ratio]0.0 /100 WBCNormalWaynesville HospitalComment on above:Order Comment: Specimen Type: BLOOD SPECIMENOrdering Facility: [facility] Address:[address] [place], [place] [address]Performed By: #### 63552-4 ####AMRITA LABORATORYCLIA [id number] [place] [address] [facility] MEDICAL CENTERPlatelet mean volume (Bld) [Entitic vol]10.8 fLNormal 9.0-12.7Fspringfield hospital medical center HospitalComment on above:Order Comment: Specimen Type: BLOOD SPECIMENOrdering Facility: [facility] Address:[address] [place], [place] [address]Performed By: #### 82015-4 ####AMRITA LABORATORYCLIA [id number] [place] [id number] [place] Platelets (Bld) [#/Vol]187 10*3/sHDjjmdo369-910Hhwommam HospitalComment on above:Order Comment: Specimen Type: BLOOD SPECIMENOrdering Facility: [facility] Address:[address] [place], [place] [address]Performed By: #### 53312-8 ####AMRITA LABORATORYCLIA [id number] [place] [id number] [place] AMERICARBC (Bld) [#/Vol]4.06 10*6/uLLow4.20-6.00[facility] HospitalComment on above:Order Comment: Specimen Type: BLOOD SPECIMENOrdering Facility: [facility] Address:[address] [place], [place] [address]Performed By: #### 52371-7 ####AMRITA LABORATORYCLIA [id number] [place] [address] [place] GERMAN HOSPITALWBC (Bld) [#/Vol]6.59 10*3/uLNormal3.70-11.00[facility] HospitalComment on above:Order Comment: Specimen Type: BLOOD SPECIMENOrdering Facility: [facility] Address:[address] [place], [place] [address]Performed By: #### 75369-1 ####AMRITA LABORATORYCLIA [id number] [address]ETCNDSon 67-09-8211KMXRXDV ID: [id number] Author: LASHONDA DELGADO MD Service: Colorectal Author [...] Your Medications These medications were sent to [facility] [address] - [place] [address] - [address] - [phone] [place] [address] methocarbamol 500 mg tablet Future Appointments: Future Appointments Date Time Provider Department Center 07/05/2024 10:40 AM 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 APRN.ONLINE CONTENT COORDINATOR [id number] You will receive a phone call from our clinic nurse to check in on you in 5-7 days from discharge before your follow up appointment. Signed by Physician: Lashonda Delgado MDNormalWaynesville HospitalMagnesium SerPl-mCncon 70-79-0894Mmobfrpxp [Mass/Vol]2.1 mg/dLNormal1.7-2.3FChanning HomeComment on above:Order Comment: Specimen Type: BLOOD SPECIMENOrdering Facility: [facility] Address:[address] [place], [place] [address]Performed By: #### 24608-8, , 2776-05 ####[facility] LABORATORYCLIA [id number] [place] [address] [place] Phosphate SerPl-mCncon 53-12-4178Zjqpllklh [Mass/Vol]3.2 mg/dLNormal2.7-4.8 [facility] HospitalComment on above:Order Comment: Specimen Type: BLOOD SPECIMENOrdering Facility: [facility] Address:[address] [place], [place] [address]Performed By: #### 36043-4, , 2776-05 ####[facility] LABORATORYCLIA [id number] [place] [address] [place] AMERICABasic metabolic 2000 panelon 28-06-1825Oxpdc gap [Moles/Vol]9 mmol/L Normal8-15[facility] HospitalComment on above:Order Comment: Specimen Type: BLOOD SPECIMENOrdering Facility: [facility] Address:[address] [place], [place] [address]Performed By: #### 19875-0, 2777-, ####[facility] LABORATORYCLIA [id number] [place] [address] [place] AMERICACalcium [Mass/Vol]8.9 mg/dLNormal8.5-10.2Fspringfield hospital medical center HospitalComment on above:Order Comment: Specimen Type: BLOOD SPECIMENOrdering Facility: [facility] Address:[address] [place], [place] [address]Performed By: #### 09735-8, 2776-05, ####AMRITA LABORATORYCLIA [id number] [place] [id number] [place] AMERICAChloride [Moles/Vol]103 mmol/L Vrwhvg81-928Tpdbybtj HospitalComment on above:Order Comment: Specimen Type: BLOOD SPECIMENOrdering Facility: [facility] Address:[address] [place], [place] [address]Performed By: #### 83990-0, 2776-05, ####AMRITA LABORATORYCLIA [id number] [place] [id number] [place] AMERICACO2 [Moles/Vol]24 mmol/CEenzhh08-42Vhwyoeqd Hospital Comment on above:Order Comment: Specimen Type: BLOOD SPECIMENOrdering Facility: [facility] Address:[address] [place] [address] Performed By: #### 70415-6, 2776-05, ####AMRITA LABORATORYCLIA [id number] [place] [id number] [place] Creatinine [Mass/Vol]0.93 mg/dLNormal0.73-1.22FaEssex HospitalComment on above: Order Comment: Specimen Type: BLOOD SPECIMENOrdering Facility: [facility] Address:[address] [place], [place] [address]Performed By: #### 92046- 2, 2776-05, ####AMRITA LABORATORYCLIA [id number] [place] [id number] [place] AMERICACreatinine and Glomerular filtration rate.predicted panel (S/P/Bld)98 mL/min/1.73m???Normal>=60[facility] HospitalComment on above:Order Comment: Specimen Type: BLOOD SPECIMENOrdering Facility: [facility] Address:[address] [place], [place] [address]Lcrqhu Comment: Estimated Glomerular Filtration Rate (eGFR) is calculated using the 2020 CKD-EPI creatinine equation. This equation utilizes serum creatinine, sex, and age as parameters. The creatinine assay has traceable calibration to isotope dilution-mass spectrometry. Refer to KDIGO guidelines for clinical interpretation. In patients with unstable renal function, e.g. those with acute kidney injury, the eGFR may not accurately reflect actual GFR. Performed By: #### 14667-0, 2777-, ####[facility] LABORATORYCLIA [id number] [place] [id number] [place] AMERICAGlucose [Mass/Vol]107 mg/oKDqug97-40Fwakyedx HospitalComment on above:Order Comment: Specimen Type: BLOOD SPECIMENOrdering Facility: [facility] Address:[address] [place], [place] [id number] Comment: The [place] Diabetes Association (ADA) provides guidance for cutoff [...] Standards of Medical Care in Diabetes 2016, [place] [employer]. Diabetes Care. 2016.39(Suppl 1).Performed By: #### 56205-1, 2777-, ####[facility] LABORATORYCLIA [id number] [place] [address] [place] AMERICAPotassium [Moles/Vol]4.6 mmol/LNormal3.7-5.1 [facility] on above:Order Comment: Specimen Type: BLOOD SPECIMENOrdering Facility: [facility] Address:[address] [place] [id number] By: #### 68906-7, 2776-05, ####AMRITA LABORATORYCLIA [id number] [place] [id number] [place] AMERICASodium [Moles/Vol]136 mmol/JMppsqb746-778Sxrywstm HospitalComment on above:Order Comment: Specimen Type: BLOOD SPECIMENOrdering Facility: [facility] Address:[address] [place], [place] [address]Performed By: #### 51559-3, 2776-05, ####AMRITA LABORATORYCLIA [id number] [place] [id number] [place] AMERICAUrea nitrogen [Mass/Vol]13 mg/dLNormal9-24[facility] HospitalComment on above:Order Comment: Specimen Type: BLOOD SPECIMENOrdering Facility: [facility] Address:[address] [place], [place] [address]Performed By: #### 09946-4, 2776-05, ####AMRITA LABORATORYCLIA [id number] [place] [id number] [place] AMERICACB W Auto Differential panel (Bld)on 06-22-2024 Basophils (Bld) [#/Vol]0.03 10*3/uLNormal<0.11[facility] HospitalComment on above: Order Comment: Specimen Type: BLOOD SPECIMENOrdering Facility: [facility] Address:[address] [place], [place] [address]Performed By: #### 09087- 8 ####AMRITA LABORATORYCLIA [id number] [place] [id number] [place] AMERICABasophils/100 WBC (Bld)0.3 %NormalPlunkett Memorial Hospital Comment on above:Order Comment: Specimen Type: BLOOD SPECIMENOrdering Facility: [facility] Address:[address] [place] [address] Performed By: #### 26771-2 ####AMRITA LABORATORYCLIA [id number] [place] [id number] [place] AMERICADifferential cell count method Nom (Bld)AutoNormalFairview HospitalComment on above:Order Comment: Specimen Type: BLOOD SPECIMENOrdering Facility: [facility] Address:[address] [place], [place] [address]Performed By: #### 87562-8 ####AMRITA LABORATORYCLIA [id number] [place] [address] [place] AMERICAEosinophils (Bld) [#/Vol]0.12 10*3/uLNormal<0.46[facility] HospitalComment on above:Order Comment: Specimen Type: BLOOD SPECIMENOrdering Facility: [facility] Address:[address] [place] [address] Performed By: #### 28617-6 ####AMRITA LABORATORYCLIA [id number] [place] [address] [place] AMERICAEosinophils/100 WBC (Bld)1.4 % NormalWaynesville HospitalComment on above:Order Comment: Specimen Type: BLOOD SPECIMENOrdering Facility: [facility] Address:[address] [place], [place] [address]Performed By: #### 19328-2 ####AMRITA LABORATORYCLIA [id number] [place] [address] [place] Erythrocyte distribution width (RBC) [Ratio]14.6 %Cteysu16.5-15.0Waynesville HospitalComment on above:Order Comment: Specimen Type: BLOOD SPECIMENOrdering Facility: [facility] Address:[address] [place], [place] [address]Performed By: #### 22470-6 ####AMRITA LABORATORYCLIA [id number] [place] [id number] [place] AMERICAHematocrit (Bld) [Volume fraction]40.4 %Iodudu75.0-51.0Way[facility]ville HospitalComment on above:Order Comment: Specimen Type: BLOOD SPECIMENOrdering Facility: [facility] Address:[address] [place], [place] [address]Performed By: #### 03740- 8 ####AMRITA LABORATORYCLIA [id number] [place] [id number] [place] AMERICAHemoglobin (Bld) [Mass/Vol]12.8 g/dLLow13.0-17.0[facility] HospitalComment on above:Order Comment: Specimen Type: BLOOD SPECIMENOrdering Facility: [facility] Address:[address] [place], [place] [address]Performed By: #### 82262-5 ####AMRITA LABORATORYCLIA [id number] [place] [id number] [place] AMERICAImmature granulocytes (Bld) [#/Vol]0.05 10*3/uLNormal<0.10[facility] HospitalComment on above:Order Comment: Specimen Type: BLOOD SPECIMENOrdering Facility: [facility] Address:[address] [place], [place] [address]Performed By: #### 33798- 8 ####AMRITA LABORATORYCLIA [id number] [place] [id number] [place] AMERICAImmature granulocytes/100 WBC (Bld)0.6 %NormalWaynesville HospitalComment on above:Order Comment: Specimen Type: BLOOD SPECIMENOrdering Facility: [facility] Address:[address] [place], [place] [address]Performed By: #### 79665-2 ####AMRITA LABORATORYCLIA [id number] [place] [id number] [place] AMERICALymphocytes (Bld) [#/Vol]1.14 10*3/uLNormal1.00-4.00[facility] HospitalComment on above:Order Comment: Specimen Type: BLOOD SPECIMENOrdering Facility: [facility] Address:[address] [place], [place] [address]Performed By: #### 96522- 8 ####AMRITA LABORATORYCLIA [id number] [place] [id number] [place] AMERICALymphocytes/100 WBC (Bld)13.1 %NormalWaynesville Hospital Comment on above:Order Comment: Specimen Type: BLOOD SPECIMENOrdering Facility: [facility] Address:[address] [place] [address] Performed By: #### 73228-8 ####AMRITA LABORATORYCLIA [id number] [place] [id number] [facility] (RBC) [Entitic mass]29.5 flHpbhxc14.0-34.0Waynesville HospitalComment on above:Order Comment: Specimen Type: BLOOD SPECIMENOrdering Facility: [facility] Address:[address] [place], [place] [address]Performed By: #### 34102-8 ####AMRITA LABORATORYCLIA [id number] [place] [id number] [facility] (RBC) [Mass/Vol]31.7 g/xZXkgqkv88.5-36.0Way[facility]ville HospitalComment on above:Order Comment: Specimen Type: BLOOD SPECIMENOrdering Facility: [facility] Address:[address] [place], [place] [address]Performed By: #### 30242- 8 ####AMRITA LABORATORYCLIA [id number] [address] (RBC) [Entitic vol]93.1 jQMwdgyt35.0-100.0Waynesville HospitalComment on above:Order Comment: Specimen Type: BLOOD SPECIMENOrdering Facility: [facility] Address:[address] [place], [place] [address]Performed By: #### 99831-5 ####AMRITA LABORATORYCLIA [id number] [place] [address] [place] AMERICAMonocytes (Bld) [#/Vol] 1.05 10*3/uLHigh<0.87Waynesville HospitalComment on above:Order Comment: Specimen Type: BLOOD SPECIMENOrdering Facility: [facility] Address:[address] [place], [place] [address]Performed By: #### 97275-8 ####AMRITA LABORATORYCLIA [id number] [place] [address] [place] AMERICAMonocytes/100 WBC (Bld)12.1 %NormalFamclean hospital HospitalComment on above: Order Comment: Specimen Type: BLOOD SPECIMENOrdering Facility: [facility] Address:[address] [place], [place] [address]Performed By: #### 88659- 8 ####AMRITA LABORATORYCLIA [id number] [place] [id number] [place] AMERICANeutrophils (Bld) [#/Vol]6.31 10*3/uLNormal1.45-7.50 [facility] HospitalComment on above:Order Comment: Specimen Type: BLOOD SPECIMENOrdering Facility: [facility] Address:[address] [place], [place] [address]Performed By: #### 22279-3 ####[facility] LABORATORYCLIA [id number] [place] [id number] [place] Neutrophils/100 WBC (Bld)72.5 %NormalWaynesville HospitalComment on above:Order Comment: Specimen Type: BLOOD SPECIMENOrdering Facility: [facility] Address:[address] [place], [place] [address]Performed By: #### 60137- 8 ####AMRITA LABORATORYCLIA [id number] [place] [address] [place] AMERICANucleated RBC (Bld) [#/Vol]10*3/uLNormal<0.01Waynesville HospitalComment on above:Order Comment: Specimen Type: BLOOD SPECIMENOrdering Facility: [facility] Address:[address] [place], [place] [address]Performed By: #### 81872-2 ####AMRITA LABORATORYCLIA [id number] [place] [id number] [place] AMERICANucleated RBC/100 WBC (Bld) [Ratio]0.0 /100 WBCNormalWaynesville HospitalComhealthsource [place] on above:Order Comment: Specimen Type: BLOOD SPECIMENOrdering Facility: [facility] Address:[address] [place], [place] [address]Performed By: #### 66055-2 ####AMRITA LABORATORYCLIA [id number] [place] [id number] [place] AMERICAPlatelet mean volume (Bld) [Entitic vol]10.7 fLNormal 9.0-12.7Fspringfield hospital medical center HospitalComment on above:Order Comment: Specimen Type: BLOOD SPECIMENOrdering Facility: [facility] Address:[address] [place], [place] [address]Performed By: #### 10906-7 ####AMRITA LABORATORYCLIA [id number] [place] [id number] [place] Platelets (Bld) [#/Vol]192 10*3/dTWbgdtl040-648Zxuuhkql HospitalComment on above:Order Comment: Specimen Type: BLOOD SPECIMENOrdering Facility: [facility] Address:[address] [place], [place] [address]Performed By: #### 27264-3 ####AMRITA LABORATORYCLIA [id number] [place] [id number] [facility] AMERICARBC (Bld) [#/Vol]4.34 10*6/uLNormal4.20-6.00 [place] HospitalComment on above:Order Comment: Specimen Type: BLOOD SPECIMENOrdering Facility: [facility] Address:[address] [place], [place] [address]Performed By: #### 88291-3 ####AMRITA LABORATORYCLIA [id number] [place] [id number] [facility] CENTERWBC (Bld) [#/Vol]8.70 10*3/uLNormal3.70-11.00[place] HospitalComment on above:Order Comment: Specimen Type: BLOOD SPECIMENOrdering Facility: [facility] Address:[address] [place], [place] [address]Performed By: #### 48766- 8 ####AMRITA LABORATORYCLIA [id number] [place] [id number] [facility] CENTERMagnesium SerPl-mCncon [id number] [Mass/Vol]2.1 mg/dLNormal1.7-2.3Fspringfield hospital [facility] HospitalComment on above:Order Comment: Specimen Type: BLOOD SPECIMENOrdering Facility: [facility] Address:[address] [place], [place] [address]Performed By: #### 62151-4, 2777-1, ####[facility] LABORATORYCLIA [id number] [place] [id number] [place] OF AMERICAPhosphate SerPl-mCncon 59-66-3413Xumqupdmq [Mass/Vol]3.8 mg/dLNormal2.7-4.8[facility] HospitalComment on above:Order Comment: Specimen Type: BLOOD SPECIMENOrdering Facility: [facility] Address:[facility] [place] [id number] By: #### 56613-3, 2777-, ####[facility] LABORATORYCLIA [id number] [place] [id number] [place] OF AMERICAANES POSTPROC EVALon [id number] POSTPROC EVALHNO ID: [id number] Author: OLGA LIDIA WHITEHEAD MD Service: Anesthesiology Author Type: Anesthesiologist Type: Anesthesia Postprocedure Evaluation Filed: 06/21/2024 17:30 Note Text: POST ANESTHESIA EVALUATION NOTE : 1970 Procedure Summary Date: 06/21/24 Room / Location: OR / OR Anesthesia Start: 1549 Anesthesia Stop: [...] June 21, 2024 TIME: 5:30 PM CSN: [id number] [facility] PRE-OPon 93-21-7026JEGT PRE-OPHNO ID: [id number] Author: YU BERRIOS MD Service: Anesthesiology Author [...] June 21, 2024 TIME: 3:43 PM CSN: [id number] Hospital panel Auto (Bld)on 99-13-1572Siwwztidshy distribution width (RBC) [Ratio]14.7 %Xocehr37.5-15.0 [place] HospitalComment on above:Order Comment: Specimen Type: BLOOD SPECIMENOrdering Facility: [facility] Address:[address] [place], [place] [address]Performed By: #### 49882-9 ####[facility] LABORATORYCLIA [id number] [place] [id number] [facility] Hematocrit (Bld) [Volume fraction]45.2 %Jzodeb72.0-51.0[place] HospitalComment on above:Order Comment: Specimen Type: BLOOD SPECIMENOrdering Facility: [facility] Address:[address] [place] [address] Performed By: #### 55700-5 ####[facility] LABORATORYCLIA [id number] [place] [id number] [facility] CENTERHemoglobin (Bld) [Mass/Vol] 14.3 g/hPUlknku52.0-17.0[place] HospitalComment on above:Order Comment: Specimen Type: BLOOD SPECIMENOrdering Facility: [facility] Address:[address] [place], [place] [address]Performed By: #### 72112-9 ####[facility] LABORATORYCLIA [id number] [place] [id number] [facility]H (RBC) [Entitic mass]29.4 ppJcqfkf77.0-34.0[facility] HospitalComment on above:Order Comment: Specimen Type: BLOOD SPECIMENOrdering Facility: [facility] Address:[address] [place], [place] [address]Performed By: #### 80877-0 ####[facility] LABORATORYCLIA [id number] [place] [id number] [place] OF AMERICAMCHC (RBC) [Mass/Vol] 31.6 g/mTMihgcg53.5-36.0[facility] HospitalComment on above:Order Comment: Specimen Type: BLOOD SPECIMENOrdering Facility: [facility] Address:[address] [place], [place] [address]Performed By: #### 86287-7 ####[facility] LABORATORYCLIA [id number] [address]ETMCV (RBC) [Entitic vol]93.0 eTOywols71.0-100.0[facility] HospitalComment on above:Order Comment: Specimen Type: BLOOD SPECIMENOrdering Facility: [facility] Address:[address] [place], [place] [address]Performed By: #### 23036-5 ####[facility] LABORATORYCLIA [id number] [address]ETucleated RBC (Bld) [#/Vol]10*3/uLNormal<0.01[facility] HospitalComment on above:Order Comment: Specimen Type: BLOOD SPECIMENOrdering Facility: [facility] Address:[address] [place], [place] [address]Performed By: #### 29507-2 ####[facility] LABORATORYCLIA [id number] [address]ETPlatelet mean volume (Bld) [Entitic vol]11.0 fLNormal 9.0-12.7Fspringfield hospital medical center HospitalComment on above:Order Comment: Specimen Type: BLOOD SPECIMENOrdering Facility: [facility] Address:[address] [place], [place] [address]Performed By: #### 43115-6 ####[facility] LABORATORYCLIA [id number] [address] Platelets (Bld) [#/Vol]222 10*3/cQAkqghh056-625Lvvyrdwg HospitalComment on above:Order Comment: Specimen Type: BLOOD SPECIMENOrdering Facility: [facility] Address:[address] [place], [place] [address]Performed By: #### 33937-6 ####[facility] LABORATORYCLIA [id number] [place] [id number] [facility] CENTERRB (Bld) [#/Vol]4.86 10*6/uLNormal4.20-6.00 [facility] on above:Order Comment: Specimen Type: BLOOD SPECIMENOrdering Facility: [facility] Address:[address] [place], [place] [address]Performed By: #### 13830-4 ####[facility] LABORATORYCLIA [id number] [address]W (Bld) [#/Vol]7.87 10*3/uLNormal3.70-11.00[facility] HospitalComhealthsource [place] on above:Order Comment: Specimen Type: BLOOD SPECIMENOrdering Facility: [facility] Address:[address] [place], [place] [address]Performed By: #### 34337- 2 ####[facility] LABORATORYCLIA [id number] [address]ETCNPNon 04-10-5439IPJHDaiznxlfr ([facility]) PIPER RODRÍGUEZ ([id number]) 1970 M Date Time Provider Department 06/21/24 DONIS CARIAS [facility] During your visit today, we recorded [...] for his appointment tomorrow vs going to [place] [facility]. Ultimately, he thinks he will go to [place] [facility]. Allergies As of Date: 06/21/2024 (No [...] 06/16/2024 Encounter Status:Closed by JOCELYN CANTRELL on 06/21/24NormalCSt. John of God HospitalComprehenve metabolic 2000 panelon 92-85-1073Rrzwbeo [Mass/Vol]4.2 g/dLNormal3.9-4.9[facility] HospitalComment on above:Order Comment: Specimen Type: BLOOD SPECIMENOrdering Facility: [facility] Address:[address] [place], [place] [address]Performed By: #### 75192-8, 18521-9 ####[facility] LABORATORYCLIA [id number] [place] [id number] [place] AMERICAALP [Catalytic activity/Vol]72 U/MRhoigi83-812Avflxjng HospitalComment on above:Order Comment: Specimen Type: BLOOD SPECIMENOrdering Facility: [facility] Address:[address] [place] [address] Performed By: #### 81266-4, 27179-5 ####[facility] LABORATORYCLIA [id number] [place] [id number] [place] AMERICAALT [Catalytic activity/Vol]91 U/NYnce26-48Cywcamju HospitalComment on above:Order Comment: Specimen Type: BLOOD SPECIMENOrdering Facility: [facility] Address:[address] [place], [place] [address]Performed By: #### 10604-3, 90543-5 ####[facility] LABORATORYCLIA [id number] [place] [id number] [place] AMERICAAnion gap [Moles/Vol]11 mmol/LNormal8-15[facility] HospitalComment on above:Order Comment: Specimen Type: BLOOD SPECIMENOrdering Facility: [facility] Address:[address] [place], [place] [address]Performed By: #### 78193-7, 46347-4 ####[facility] LABORATORYCLIA [id number] [place] [id number] [place] AMERICAAST [Catalytic activity/Vol]58 U/VAyoj52-23Cbmqtzyq HospitalComment on above:Order Comment: Specimen Type: BLOOD SPECIMENOrdering Facility: [facility] Address:[address] [place], [place] [address]Performed By: #### 57531- 9, 76172-5 ####[facility] LABORATORYCLIA [id number] [place] [id number] [place] AMERICABilirubin [Mass/Vol]0.3 mg/dLNormal0.2-1.3 [place] HospitalComment on above:Order Comment: Specimen Type: BLOOD SPECIMENOrdering Facility: [facility] Address:[address] [place], [place] [address]Performed By: #### 74260-1, 56599-6 ####[facility] LABORATORYCLIA [id number] [place] [id number] [place] AMERICACalcium [Mass/Vol]9.6 mg/dLNormal8.5-10.2Fspringfield hospital medical center HospitalComment on above:Order Comment: Specimen Type: BLOOD SPECIMENOrdering Facility: [facility] Address:[address] [place], [place] [address]Performed By: #### 57931-4, 81404-2 ####[facility] LABORATORYCLIA [id number] [place] [id number] [place] AMERICAChloride [Moles/Vol]99 mmol/L Euddrv26-117Yntswyqv HospitalComment on above:Order Comment: Specimen Type: BLOOD SPECIMENOrdering Facility: [facility] Address:[address] [place], [place] [address]Performed By: #### 79052-2, 01410-4 ####[facility] LABORATORYCLIA [id number] [place] [id number] [place] AMERICACO2 [Moles/Vol]28 mmol/HLxeizu49-38Hghdfvhn HospitalComment on above: Order Comment: Specimen Type: BLOOD SPECIMENOrdering Facility: [facility] Address:[address] [place], [place] [address]Performed By: #### 10032- 9, 68204-8 ####[facility] LABORATORYCLIA [id number] [place] [id number] [place] AMERICACreatinine [Mass/Vol]0.99 mg/dLNormal0.73-1.22 [place] HospitalComment on above:Order Comment: Specimen Type: BLOOD SPECIMENOrdering Facility: [facility] Address:[address] [place], [place] [address]Performed By: #### 56845-5, 92036-1 ####[facility] LABORATORYCLIA [id number] [place] [id number] [place] AMERICACreatinine and Glomerular filtration rate.predicted panel (S/P/Bld)91 mL/min/1.73m???Normal>=60[facility] HospitalComment on above:Order Comment: Specimen Type: BLOOD SPECIMENOrdering Facility: [facility] Address:[address] [place], [place] [address]Result Comment: Estimated Glomerular Filtration Rate (eGFR) is calculated using the 2020 CKD-EPI creatinine equation. This equation utilizes serum creatinine, sex, and age as parameters. The creatinine assay has traceable calibration to isotope dilution-mass spectrometry. Refer to KDIGO guidelines for clinical interpretation. In patients with unstable renal function, e.g. those with acute kidney injury, the eGFR may not accurately reflect actual GFR.Performed By: #### 51557-5, 71376-1 ####[facility]ORATORYCLIA [id number] [place] [id number] [place] OF AMERICAGlucose [Mass/Vol]102 mg/sOZofu81-83Nyheazgd[address] Comment on above:Order Comment: Specimen Type: BLOOD SPECIMENOrdering Facility: [facility] Address:[address] [place] [address]Gfyfws Comment: The [place] Diabetes Association (ADA) provides guidance for cutoff [...] Standards of Medical Care in Diabetes 2016, [place] [employer]. Diabetes Care. 2016.39(Suppl 1).Performed By: #### 16122-5, 55730-0 ####[facility] LABORATORYCLIA [id number] [place] [id number] [place] AMERICAPotassium [Moles/Vol]4.3 mmol/LNormal3.7-5.1Fspringfield hospital medical center HospitalComment on above:Order Comment: Specimen Type: BLOOD SPECIMENOrdering Facility: [facility] Address:[address] [place], [place] [address]Performed By: #### 08659-6, 94888-7 ####[facility] LABORATORYCLIA [id number] [place] [id number] [place] AMERICAProtein [Mass/Vol]8.0 g/dLNormal6.3-8.0[facility] HospitalComment on above:Order Comment: Specimen Type: BLOOD SPECIMENOrdering Facility: [facility] Address:[address] [place], [place] [address]Performed By: #### 05708-8, 03280-7 ####[facility] LABORATORYCLIA [id number] [place] [address] [place] AMERICASodium [Moles/Vol]138 mmol/HLwkkiv109-682Wkjdrmmo HospitalComment on above:Order Comment: Specimen Type: BLOOD SPECIMENOrdering Facility: [facility] Address:[address] [place], [place] [address]Performed By: #### 51087-3, 06243-4 ####[facility] LABORATORYCLIA [id number] [place] [id number] [place] AMERICAUrea nitrogen [Mass/Vol]14 mg/dLNormal9-24[facility] HospitalComment on above:Order Comment: Specimen Type: BLOOD SPECIMENOrdering Facility: [facility] Address:[address] [place], [place] [address]Performed By: #### 57976- 9, 65536-9 ####[facility] LABORATORYCLIA [id number] [place] [id number] [place] OF AMERICAED NOTEon 34-94-4535DJ NOTEHNO ID: [id number] Author: JOSÉ MIGUEL LARA RN Service: ? Author Type: Registered Nurse Type: ED Notes Filed: 06/21/2024 13:48 Note Text: Bed: 55-ED Expected date: Expected time: Means of arrival: Comments: triageNoWesson Memorial HospitalED ERIBERTO NOTEon 93-13-5977JA ERIBERTO COOPERHNO ID: [id number] Author: GINO ANGEL MD Service: Emergency Medicine Author Type: Physician Type: ED Provider Notes Filed: 06/21/2024 16:14 Note Text: ED Provider Note Patient Name: Ppier Rodríguez : 1970 SERVICE DATE: 06/21/24 History Patient presents with: Abdominal Pain: sts laparoscopic hemicolectomy last week and had sutures popped out Patient is a 54-year-old male past medical history of: CAD, hypertension, elevated BMI, hyperlipidemia, SHERIE, anemia, thrombocytopenia, who presents the emergency room for chief complaint of surgical wound opening. Patient had laparoscopic partial colectomy on June [address] Carias at [facility]. States had been doing well. States that yesterday the wound opened minimally. He presented to [facility] for evaluation. States the physician said [...] Normal ECG Confirmed by MD ANGEL JAMES ([id number]) on 06/21/2024 2:14:56 PM Procedures ED Course [...] and evaluation at bed (more content not included)...[facility] HospitalED Triage Noteon 36-25-0394XZ Triage NoteHNO ID: [id number] Author: ETHAN QUINTERO DO Service: Emergency Medicine [...] full HANDP as well as MDM SIGNATURE: Carlos VeeLongwood Hospitalnicki 06-21-2024 ElectrocardiogramVentricular Rate : 47 BPM Atrial Rate : 48 BPM P-R Interval : 173 ms QRS Duration : 105 ms Q-T Interval : 447 ms QTC Calculation(Bazett) : 396 ms Calculated P Mcelhattan : 44 degrees Calculated R [place] : 40 degrees Calculated T [place]el[place] : 58 degrees Sinus bradycardia Otherwise Normal ECG Confirmed by MD ANGEL JAMES ([id number]) on 06/21/2024 2:14:56 PM NAME : PIPER RODRÍGUEZ PID : [id number] : 1970 Gender : Male Race : [...] Referred By : , Acquired by : [id number],[facility] PHYSICAL 93-81-9582CRGGSNX PHYSICALHNO ID: [id number] Author: MAIKEL JUSTICE MD Service: Colorectal Author [...] contents. They were worried so presented to [place] [facility]. Pt's showed me a photo of [...] concerns and was told to present to [place] [facility] for further evaluation. Per pt has [...] PAST SURGICAL HISTORY OF 04/2024 colonoscopy (2018) FAMILY HISTORY: No family history on file. [...] MD DATE: June 21, 2024 TIME: 2:56 PMNormalFairkettering health miamisburg HospitalMagnesium SerPl-mCncon 90-64-3097Owbxlvcji [Mass/Vol]2.3 mg/dLNormal1.7-2.3Fairket[facility]amisburg HospitalComment on above:Order Comment: Specimen Type: BLOOD SPECIMENOrdering Facility: [facility] Address:[address] [place] [place] [address]Performed By: #### 38179-7, 49199-6 ####[facility] LABORATORYIA [id number] [address]ETURSING PROGon [id number] PROARUNANO ID: [id number] Author: OLYA SIEGEL RN Service: Nursing Author Type: Registered Nurse Type: Nursing Progress Note Filed: 06/21/2024 19:56 Note Text: Transfer Note: PATIENT NAME: Piper Rodríguez Patient Location: [place] [address] [address] Room: [place] [address] Patient transferred into room/unit [facility] in stable condition. 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 She states it has opened up. Asking to speak to nurse to find out if they should go to local ER # [phone] Jocelyn Cantrell RN 06/20/2024 3:17 PM Signed [...] 06/16/2024 Encounter Status:Closed by JOCELYN CANTRELL on 06/20/24NoC[facility] Clinic [facility] 09-92-1892IKLMGledgh TextNoAdams County [facility] Center 14-18-7639FQXUSbwvicgen ([facility]) ZOLTANPIPER METCALF Marychuy ([id number]) 1970 M Date Time Provider Department 06/19/24 DONIS CARIAS [facility] During your visit today, we recorded the following information about you: Maura Casiano 06/19/2024 1:29 PM Signed Patient had surgery on 06/14/24. He is asking to speak to a nurse about his restrictions and what he can and cannot do # [phone] Jocelyn Cantrell RN 06/19/2024 1:48 PM Signed [...] Fully Assessed Reason for Visit: Patient Question [6347] Prescriptions as of 06/19/2024 - acetaminophen (TYLENOL) [...] 06/16/2024 Encounter Status:Closed by JOCELYN CANTRELL on 06/19/24NormalCTrumbull Memorial Hospital metabolic 2000 panelon 75-11-8591Kjvoz gap [Moles/Vol]12 mmol/L Normal8-15[facility] HospitalComment on above:Order Comment: Specimen Type: BLOOD SPECIMENOrdering Facility: [facility] Address:[address] [place], [place] [address]Performed By: #### 72098-6 ####[facility] LABORATORYCLIA [id number] [place] [address] [place] AMERICACalcium [Mass/Vol]8.9 mg/dLNormal8.5-10.2[facility] HospitalComment on above:Order Comment: Specimen Type: BLOOD SPECIMENOrdering Facility: [facility] Address:[address] [place], [place] [address]Performed By: #### 35083- 2 ####[facility] LABORATORYCLIA [id number] [place] [address] [place] AMERICAChloride [Moles/Vol]103 mmol/ILhygvc17-136Sgfcaecc HospitalComment on above:Order Comment: Specimen Type: BLOOD SPECIMENOrdering Facility: [facility] Address:[address] [place], [place] [address]Performed By: #### 43174-0 ####MAUREENJAMMIE LABORATORYCLIA [id number] [place] [id number] [place] AMERICACO2 [Moles/Vol]22 mmol/HZnethl55-74Xcxgvbud HospitalComment on above:Order Comment: Specimen Type: BLOOD SPECIMENOrdering Facility: [facility] Address:[address] [place], [place] [address]Performed By: #### 27682-4 ####[facility] LABORATORYCLIA [id number] [place] [id number] [place] AMERICACreatinine [Mass/Vol]0.90 mg/dLNormal0.73-1.22[facility] HospitalComment on above:Order Comment: Specimen Type: BLOOD SPECIMENOrdering Facility: [facility] Address:[address] [place] [address] Performed By: #### 30119-3 ####[facility] LABORATORYCLIA [id number] [place] [id number] [place] AMERICACreatinine and Glomerular filtration rate.predicted panel (S/P/Bld)102 mL/min/1.73m???Normal>=60[facility] HospitalComment on above:Order Comment: Specimen Type: BLOOD SPECIMENOrdering Facility: [facility] Address:[address] [place], [place] [address]Result Comment: Estimated Glomerular Filtration Rate (eGFR) is calculated using the 2020 CKD-EPI creatinine equation. This equation utilizes serum creatinine, sex, and age as parameters. The creatinine assay has traceable calibration to isotope dilution-mass spectrometry. Refer to KDIGO guidelines for clinical interpretation. In patients with unstable renal function, e.g. those with acute kidney injury, the eGFR may not accurately reflect actual GFR. Performed By: #### 69364-6 ####AM[facility] LABORATORYCLIA [id number] [place] [id number] [place] AMERICAGlucose [Mass/Vol]162 mg/dL Bdcw23-96Ozwbtwgs HospitalComment on above:Order Comment: Specimen Type: BLOOD SPECIMENOrdering Facility: [facility] Address:[address] [place] [id number] Comment: The [place] Diabetes Association (ADA) provides guidance for cutoff [...] Standards of Medical Care in Diabetes 2016, [place] [employer]. Diabetes Care. 2016.39(Suppl 1).Performed By: #### 41536-2 ####AMRITA LABORATORYCLIA [id number] [place] [address] [place] AMERICAPotassium [Moles/Vol]4.4 mmol/LNormal3.7-5.1Fspringfield hospital medical center HospitalComment on above:Order Comment: Specimen Type: BLOOD SPECIMENOrdering Facility: [facility] Address:[address] [place], [place] [address]Performed By: #### 39789-4 ####AMR[facility] LABORATORYCLIA [id number] [place] [id number] [place] AMERICASodium [Moles/Vol]137 mmol/YUgdxtg430-195Jbzobtoa HospitalComment on above:Order Comment: Specimen Type: BLOOD SPECIMENOrdering Facility: [facility] Address:[address] [place], [place] [address]Performed By: #### 51415-3 ####AMRITA LABORATORYCLIA [id number] [place] [id number] [place] AMERICAUrea nitrogen [Mass/Vol]10 mg/dLNormal9-24FaEssex HospitalComment on above:Order Comment: Specimen Type: BLOOD SPECIMENOrdering Facility: [facility] Address:[address] [place], [place] [address]Performed By: #### 51809-6 ####AMRITA LABORATORYCLIA [id number] [address] OF [facility] HOSPITALCB W Auto Differential panel (Bld)on 06-16-2024 Basophils (Bld) [#/Vol]0.04 10*3/uLNormal<0.11[place] HospitalComment on above: Order Comment: Specimen Type: BLOOD SPECIMENOrdering Facility: [facility] Address:[address] [place], [place] [address]Performed By: #### 33182- 8 ####AMRITA LABORATORYCLIA [id number] [place] [address] [place] AMERICABasophils/100 WBC (Bld)0.6 %NormalWaynesville Hospital Comment on above:Order Comment: Specimen Type: BLOOD SPECIMENOrdering Facility: [facility] Address:[address] [place] [address] Performed By: #### 13295-7 ####AMRITA LABORATORYCLIA [id number] [place] [id number] [place] [facility]ITAL CENTERDifferential cell count method Nom (Bld)AutoNormalFamclean hospital HospitalComment on above:Order Comment: Specimen Type: BLOOD SPECIMENOrdering Facility: [facility] Address:[address] [place], [place] [address]Performed By: #### 08048-4 ####AMRITA LABORATORYCLIA [id number] [place] [address] [place] AMERICAEosinophils (Bld) [#/Vol]0.16 10*3/uLNormal<0.46[place] HospitalComment on above:Order Comment: Specimen Type: BLOOD SPECIMENOrdering Facility: [facility] Address:[address] [place] [address] Performed By: #### 52079-3 ####AMRITA LABORATORYCLIA [id number] [place] [address] [place] AMERICAEosinophils/100 WBC (Bld)2.4 % NormalWaynesville HospitalComment on above:Order Comment: Specimen Type: BLOOD SPECIMENOrdering Facility: [facility] Address:[address] [place], [place] [address]Performed By: #### 37226-3 ####AMR[facility] LABORATORYCLIA [id number] [place] [id number] [place] Erythrocyte distribution width (RBC) [Ratio]15.6 %High11.5-15.0[facility] Comment on above:Order Comment: Specimen Type: BLOOD SPECIMENOrdering Facility: [facility] Address:[address] [place] [address] Performed By: #### 61757-6 ####AMRITA LABORATORYCLIA [id number] [place] [id number] [place] OF AMERICAHematocrit (Bld) [Volume fraction]44.0 %Rufywh90.0-51.0FaEssex HospitalComment on above:Order Comment: Specimen Type: BLOOD SPECIMENOrdering Facility: [facility] Address:[address] [place], [place] [address]Performed By: #### 08473-7 ####AMRITA LABORATORYCLIA [id number] [place] [id number] [place] OF AMERICAHemoglobin (Bld) [Mass/Vol]13.8 g/pJCrfnjd82.0-17.0 [facility] HospitalComment on above:Order Comment: Specimen Type: BLOOD SPECIMENOrdering Facility: [facility] Address:[address] [place], [place] [address]Performed By: #### 55579-7 ####AMRITA LABORATORYCLIA [id number] [place] [id number] [place] Immature granulocytes (Bld) [#/Vol]0.03 10*3/uLNormal<0.10[facility] Comment on above:Order Comment: Specimen Type: BLOOD SPECIMENOrdering Facility: [facility] Address:[address] [place] [address] Performed By: #### 23695-3 ####AMRITA LABORATORYCLIA [id number] [place] [id number] [place] OF AMERICAImmature granulocytes/100 WBC (Bld)0.5 %NormalFaEssex HospitalComment on above:Order Comment: Specimen Type: BLOOD SPECIMENOrdering Facility: [facility] Address:[address] [place], [place] [address]Performed By: #### 19801-0 ####AMRITA LABORATORYCLIA [id number] [place] [id number] [place] Lymphocytes (Bld) [#/Vol]1.23 10*3/uLNormal1.00-4.00[facility] HospitalComment on above:Order Comment: Specimen Type: BLOOD SPECIMENOrdering Facility: [facility] Address:[address] [place], [place] [address]Performed By: #### 68494-7 ####AMRITA LABORATORYCLIA [id number] [place] [id number] [facility] CENTERLymphocytes/100 WBC (Bld)18.8 %NormalWaynesville HospitalComment on above:Order Comment: Specimen Type: BLOOD SPECIMENOrdering Facility: [facility] Address:[address] [place], [place] [address]Performed By: #### 76534-0 ####AMRITA LABORATORYCLIA [id number] [place] [id number] [facility] (RBC) [Entitic mass]29.9 jtYrotfm14.0-34.0Waynesville HospitalComment on above:Order Comment: Specimen Type: BLOOD SPECIMENOrdering Facility: [facility] Address:[address] [place], [place] [address]Performed By: #### 59246-4 ####AMRITA LABORATORYCLIA [id number] [place] [id number] [facility] CENTERMCHC (RBC) [Mass/Vol]31.4 g/zOQefiry68.5-36.0[facility]ville HospitalComment on above:Order Comment: Specimen Type: BLOOD SPECIMENOrdering Facility: [facility] Address:[address] [place], [place] [address]Performed By: #### 32644-0 ####AMRITA LABORATORYCLIA [id number] [place] [id number] [facility] (RBC) [Entitic vol] 95.4 eINrhejw97.0-100.0[facility] HospitalComment on above:Order Comment: Specimen Type: BLOOD SPECIMENOrdering Facility: [facility] Address:[address] [place], [place] [address]Performed By: #### 44772-5 ####AMRITA LABORATORYCLIA [id number] [place] [id number] [place] AMERICAMonocytes (Bld) [#/Vol]0.76 10*3/uLNormal<0.87[facility] HospitalComment on above:Order Comment: Specimen Type: BLOOD SPECIMENOrdering Facility: [facility] Address:[address] [place], [place] [address]Performed By: #### 81324-2 ####AMRITA LABORATORYCLIA [id number] [place] [id number] [place] AMERICAMonocytes/100 WBC (Bld)11.6 %NormalWaynesville HospitalComment on above:Order Comment: Specimen Type: BLOOD SPECIMENOrdering Facility: [facility] Address:[address] [place], [place] [address]Performed By: #### 89744-2 ####AMRITA LABORATORYCLIA [id number] [place] [id number] [place] AMERICANeutrophils (Bld) [#/Vol]4.32 10*3/uLNormal1.45-7.50[facility] HospitalComment on above:Order Comment: Specimen Type: BLOOD SPECIMENOrdering Facility: [facility] Address:[address] [place], [place] [address]Performed By: #### 09120- 8 ####AMRITA LABORATORYCLIA [id number] [place] [id number] [place] AMERICANeutrophils/100 WBC (Bld)66.1 %NormalWaynesville Hospital Comment on above:Order Comment: Specimen Type: BLOOD SPECIMENOrdering Facility: [facility] Address:[address] [place] [address] Performed By: #### 51966-8 ####AMRITA LABORATORYCLIA [id number] [place] [address] [place] AMERICANucleated RBC (Bld) [#/Vol] 10*3/uLNormal<0.01[facility] HospitalComment on above:Order Comment: Specimen Type: BLOOD SPECIMENOrdering Facility: [facility] Address:[address] [place], [place] [address]Performed By: #### 12325-3 ####AMRITA LABORATORYCLIA [id number] [place] [id number] [place] AMERICANucleated RBC/100 WBC (Bld) [Ratio]0.0 /100 WBCNormalFamclean hospital Hospital Comment on above:Order Comment: Specimen Type: BLOOD SPECIMENOrdering Facility: [facility] Address:[address] [place] [address] Performed By: #### 58482-5 ####AMRITA LABORATORYCLIA [id number] [place] [id number] [place] AMERICAPlatelet mean volume (Bld) [Entitic vol]11.2 fLNormal9.0-12.7Fspringfield hospital medical center HospitalComment on above:Order Comment: Specimen Type: BLOOD SPECIMENOrdering Facility: [facility] Address:[address] [place], [place] [address]Performed By: #### 49332- 8 ####AMRITA LABORATORYCLIA [id number] [place] [address] [place] AMERICAPlatelets (Bld) [#/Vol]191 10*3/eEKkogqh996-201Jgqgdsrn HospitalComment on above:Order Comment: Specimen Type: BLOOD SPECIMENOrdering Facility: [facility] Address:[address] [place], [place] [address]Performed By: #### 53647-2 ####AMRITA LABORATORYCLIA [id number] [place] [id number] [place] AMERICARBC (Bld) [#/Vol]4.61 10*6/uLNormal4.20-6.00[facility] HospitalComment on above:Order Comment: Specimen Type: BLOOD SPECIMENOrdering Facility: [facility] Address:[address] [place] [address], [place] [address]Waklmuvpa By: #### 73305-5 ####AMRITA LABORATORYCLIA [id number] [place] [id number] [facility] CENTERWBC (Bld) [#/Vol]6.54 10*3/uLNormal3.70-11.00[facility] HospitalComment on above:Order Comment: Specimen Type: BLOOD SPECIMENOrdering Facility: [facility] Address:[place] [id number] By: #### 64790-8 ####AMRITA LABORATORYCLIA [id number] [place] [id number] [facility] CENTERCNDSon 54-24-4922ZZUNUOI ID: [id number] Author: DONIS CARIAS MD Service: Colorectal Author [...] which included preparing to see the patient, uuap-kd-vfks patient care, completing clinical documentation, obtaining and/or reviewing separately obtained history, performing a medically appropriate examination, and care coordination (not separately reported). SIGNATURE: 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 APRN.ONLINE CONTENT COORDINATOR DATE: June 16, 2024 (more content not included)...NormalPlunkett Memorial HospitalBabaptist health [facility] metabolic 2000 panel on 40-73-8289Fjbcb gap [Moles/Vol]13 mmol/LNormal8-15[facility] HospitalComment on above:Order Comment: Specimen Type: BLOOD SPECIMENOrdering Facility: [facility] Address:[address] [place], [place] [address]Performed By: #### 67687-0 ####MAUREENVIEW LABORATORYCLIA [id number] [place] [address] [place] AMERICACalcium [Mass/Vol]8.9 mg/dLNormal8.5-10.2Fairview HospitalComment on above:Order Comment: Specimen Type: BLOOD SPECIMENOrdering Facility: [facility] Address:[address] [place], [place] [address]Performed By: #### 81523-7 ####AMRITA LABORATORYCLIA [id number] [place] [id number] [place] AMERICAChloride [Moles/Vol]100 mmol/HIzoksu37-162Mtjhqiem HospitalComment on above:Order Comment: Specimen Type: BLOOD SPECIMENOrdering Facility: [facility] Address:[address] [place], [place] [address]Performed By: #### 81882-7 ####AMRITA LABORATORYCLIA [id number] [place] [id number] [place] AMERICACO2 [Moles/Vol]21 mmol/HRou71-30[facility] HospitalComhealthsource [place] on above:Order Comment: Specimen Type: BLOOD SPECIMENOrdering Facility: [facility] Address:[address] [place], [place] [address]Performed By: #### 75866- 2 ####[facility] LABORATORYCLIA [id number] [place] [id number] [place] AMERICACreatinine [Mass/Vol]1.25 mg/dLHigh0.73-1.22[facility] HospitalComhealthsource [place] on above:Order Comment: Specimen Type: BLOOD SPECIMENOrdering Facility: [facility] Address:[address] [place], [place] [address]Performed By: #### 24692-2 ####AMRITA LABORATORYCLIA [id number] [place] [id number] [place] AMERICACreatinine and Glomerular filtration rate.predicted panel (S/P/Bld)69 mL/min/1.73m???Normal>=60 [facility] on above:Order Comment: Specimen Type: BLOOD SPECIMENOrdering Facility: [facility] Address:[address] [place], [place] [address]Result Comment: Estimated Glomerular Filtration Rate (eGFR) is calculated using the 2020 CKD-EPI creatinine equation. This equation utilizes serum creatinine, sex, and age as parameters. The creatinine assay has traceable calibration to isotope dilution-mass spectrometry. Refer to KDIGO guidelines for clinical interpretation. In patients with unstable renal function, e.g. those with acute kidney injury, the eGFR may not accurately reflect actual GFR.Performed By: #### 55695-5 ####AMRITA LABORATORYCLIA [id number] [place] [address] [place] AMERICAGlucose [Mass/Vol]105 mg/sXDyoi57-77Nazysgty HospitalComment on above:Order Comment: Specimen Type: BLOOD SPECIMENOrdering Facility: [facility] Address:[address] [place], [place] [address]Result Comment: The [place] Diabetes Association (ADA) provides guidance for cutoff [...] Standards of Medical Care in Diabetes 2016, [place] [employer] Association. Diabetes Care. 2016.39(Suppl 1).Performed By: #### 57519-9 ####AMRITA LABORATORYCLIA [id number] [place] [id number] [place] AMERICAPotassium [Moles/Vol]4.8 mmol/LNormal3.7-5.1Fspringfield hospital medical center HospitalComment on above:Order Comment: Specimen Type: BLOOD SPECIMENOrdering Facility: [facility] Address:[address] [place], [place] [address]Performed By: #### 14966-0 ####AMRITA LABORATORYCLIA [id number] [place] [id number] [place] AMERICASodium [Moles/Vol]134 mmol/OVbx052-629Gqgdojao HospitalComment on above:Order Comment: Specimen Type: BLOOD SPECIMENOrdering Facility: [facility] Address:[address] [place], [place] [address]Performed By: #### 74455-0 ####AMRITA LABORATORYCLIA [id number] [place] [id number] [place] AMERICAUrea nitrogen [Mass/Vol]19 mg/dLNormal9-Waynesville HospitalComment on above:Order Comment: Specimen Type: BLOOD SPECIMENOrdering Facility: [facility] Address:[address] [place], [place] [address]Performed By: #### 69054- 2 ####AMRITA LABORATORYCLIA [id number] [place] [id number] [place] AMERICACBC W Auto Differential panel (Bld)on 06-15-2024 Basophils (Bld) [#/Vol]0.03 10*3/uLNormal<0.11Waynesville HospitalComment on above: Order Comment: Specimen Type: BLOOD SPECIMENOrdering Facility: [facility] Address:[address] [place], [place] [address]Performed By: #### 87963- 8 ####AMRITA LABORATORYCLIA [id number] [place] [id number] [place] AMERICABasophils/100 WBC (Bld)0.3 %NormalPlunkett Memorial Hospital Comment on above:Order Comment: Specimen Type: BLOOD SPECIMENOrdering Facility: [facility] Address:[address] [place] [address] Performed By: #### 51952-4 ####AMRITA LABORATORYCLIA [id number] [place] [id number] [place] AMERICADifferential cell count method Nom (Bld)AutoNormalWaynesville HospitalComment on above:Order Comment: Specimen Type: BLOOD SPECIMENOrdering Facility: [facility] Address:[address] [place], [place] [address]Performed By: #### 41840-0 ####AMRITA LABORATORYCLIA [id number] [place] [id number] [place] AMERICAEosinophils (Bld) [#/Vol]10*3/uLNormal<0.46Waynesville HospitalComment on above:Order Comment: Specimen Type: BLOOD SPECIMENOrdering Facility: [facility] Address:[address] [place], [place] [address]Performed By: #### 87185-2 ####AMRITA LABORATORYCLIA [id number] [place] [address] [place] AMERICAEosinophils/100 WBC (Bld)0.2 %NormalWaynesville HospitalComment on above:Order Comment: Specimen Type: BLOOD SPECIMENOrdering Facility: [facility] Address:[address] [place], [place] [address]Performed By: #### 65514-7 ####AMRITA LABORATORYCLIA [id number] [place] [address] [place] AMERICAErythrocyte distribution width (RBC) [Ratio]15.5 %High11.5-15.0[facility] HospitalComment on above:Order Comment: Specimen Type: BLOOD SPECIMENOrdering Facility: [facility] Address:[address] [place], [place] [address]Performed By: #### 18721-8 ####AMRITA LABORATORYCLIA [id number] [place] [address] [place] AMERICAHematocrit (Bld) [Volume fraction]41.5 %Normal 39.0-51.0[facility] HospitalComment on above:Order Comment: Specimen Type: BLOOD SPECIMENOrdering Facility: [facility] Address:[address] [place], [place] [address]Performed By: #### 16787-4 ####AMRITA LABORATORYCLIA [id number] [place] [id number] [place] Hemoglobin (Bld) [Mass/Vol]13.8 g/aSWsjach32.0-17.0[facility] HospitalComment on above:Order Comment: Specimen Type: BLOOD SPECIMENOrdering Facility: [facility] Address:[address] [place], [place] [address]Performed By: #### 02760-5 ####AMRITA LABORATORYCLIA [id number] [place] [id number] [place] AMERICAImmature granulocytes (Bld) [#/Vol]0.06 10*3/uL Normal<0.10Way[facility]ville HospitalComment on above:Order Comment: Specimen Type: BLOOD SPECIMENOrdering Facility: [facility] Address:[address] [place], [place] [address]Performed By: #### 07679-2 ####AMRITA LABORATORYCLIA [id number] [place] [id number] [place] Immature granulocytes/100 WBC (Bld)0.6 %NormalWaynesville HospitalComment on above: Order Comment: Specimen Type: BLOOD SPECIMENOrdering Facility: [facility] Address:[address] [place], [place] [address]Performed By: #### 59518- 8 ####AMRITA LABORATORYCLIA [id number] [place] [address] [place] [facility] [facility] HOSPITALLymphocytes (Bld) [#/Vol]1.01 10*3/uLNormal1.00-4.00 [facility] HospitalComment on above:Order Comment: Specimen Type: BLOOD SPECIMENOrdering Facility: [facility] Address:[address] [place], [place] [address]Performed By: #### 65721-3 ####AMRITA LABORATORYCLIA [id number] [place] [address] [place] Lymphocytes/100 WBC (Bld)10.3 %NormalWaynesville HospitalComment on above:Order Comment: Specimen Type: BLOOD SPECIMENOrdering Facility: [facility] Address:[address] [place], [place] [address]Performed By: #### 73961- 8 ####AMRITA LABORATORYCLIA [id number] [place] [id number] [place] AMERICAMCH (RBC) [Entitic mass]30.6 fdZyiloq11.0-34.0[facility] HospitalComment on above:Order Comment: Specimen Type: BLOOD SPECIMENOrdering Facility: [facility] Address:[address] [place], [place] [address]Performed By: #### 54818-4 ####AMRITA LABORATORYCLIA [id number] [place] [id number] [place] OF [facility] HOSPITALMCHC (RBC) [Mass/Vol] 33.3 g/aOXmhlqy34.5-36.0[facility] HospitalComment on above:Order Comment: Specimen Type: BLOOD SPECIMENOrdering Facility: [facility] Address:[address] [place], [place] [address]Performed By: #### 52919-1 ####AMRITA LABORATORYCLIA [id number] [place] [id number] [place] AMERICAMCV (RBC) [Entitic vol]92.0 tGWhbeuw01.0-100.0[facility] HospitalComment on above:Order Comment: Specimen Type: BLOOD SPECIMENOrdering Facility: [facility] Address:[address] [place], [place] [address]Performed By: #### 68464-3 ####AMRITA LABORATORYCLIA [id number] [place] [id number] [place] AMERICAMonocytes (Bld) [#/Vol] 1.07 10*3/uLHigh<0.87[facility] HospitalComment on above:Order Comment: Specimen Type: BLOOD SPECIMENOrdering Facility: [facility] Address:[address] [place], [place] [address]Performed By: #### 01166-9 ####AMRITA LABORATORYCLIA [id number] [place] [id number] [place] AMERICAMonocytes/100 WBC (Bld)10.9 %NormalFamclean hospital HospitalComment on above: Order Comment: Specimen Type: BLOOD SPECIMENOrdering Facility: [facility] Address:[address] [place], [place] [address]Performed By: #### 27307- 8 ####AMRITA LABORATORYCLIA [id number] [place] [id number] [place] AMERICANeutrophils (Bld) [#/Vol]7.59 10*3/uLHigh1.45-7.50 [facility] HospitalComment on above:Order Comment: Specimen Type: BLOOD SPECIMENOrdering Facility: [facility] Address:[address] [place], [place] [address]Performed By: #### 46820-8 ####MAUREENJAMMIE LABORATORYCLIA [id number] [place] [id number] [place] Neutrophils/100 WBC (Bld)77.7 %NormalWaynesville HospitalComment on above:Order Comment: Specimen Type: BLOOD SPECIMENOrdering Facility: [facility] Address:[address] [place], [place] [address]Performed By: #### 93938- 8 ####AMRITA LABORATORYCLIA [id number] [place] [address] [place] AMERICANucleated RBC (Bld) [#/Vol]10*3/uLNormal<0.01Way[facility] HospitalComment on above:Order Comment: Specimen Type: BLOOD SPECIMENOrdering Facility: [facility] Address:[address] [place], [place] [address]Performed By: #### 52843-5 ####AMRITA LABORATORYCLIA [id number] [place] [id number] [place] AMERICANucleated RBC/100 WBC (Bld) [Ratio]0.0 /100 WBCNormalWaynesville HospitalComment on above:Order Comment: Specimen Type: BLOOD SPECIMENOrdering Facility: [facility] Address:[address] [place], [place] [address]Performed By: #### 93611-4 ####AMRITA LABORATORYCLIA [id number] [place] [id number] [place] AMERICAPlatelet mean volume (Bld) [Entitic vol]10.8 fLNormal 9.0-12.7Fspringfield hospital medical center HospitalComment on above:Order Comment: Specimen Type: BLOOD SPECIMENOrdering Facility: [facility] Address:[address] [place], [place] [address]Performed By: #### 85650-1 ####AMRITA LABORATORYCLIA [id number] [place] [id number] [place] Platelets (Bld) [#/Vol]176 10*3/aHLkiuff092-195Jzqymzkr HospitalComment on above:Order Comment: Specimen Type: BLOOD SPECIMENOrdering Facility: [facility] Address:[address] [place], [place] [address]Performed By: #### 04432-6 ####AMRITA LABORATORYCLIA [id number] [place] [id number] [facility] CENTERRB (Bld) [#/Vol]4.51 10*6/uLNormal4.20-6.00 [facility] HospitalComment on above:Order Comment: Specimen Type: BLOOD SPECIMENOrdering Facility: [facility] Address:[address] [place], [place] [address]Performed By: #### 15975-4 ####[facility] LABORATORYCLIA [id number] [place] [id number] [facility] (d) [#/Vol]9.78 10*3/uLNormal3.70-11.00[facility] HospitalComment on above:Order Comment: Specimen Type: BLOOD SPECIMENOrdering Facility: [facility] Address:[address] [place], [place] [address]Performed By: #### 41277- 8 ####[facility] LABORATORYCLIA [id number] [place] [id number] [facility] [id number] ID: [id number] Author: RADHIKA ARZATE RD Service: Nutrition Therapy [...] N/A ARGELIA Zhang June 15, 2024 9:44 [facility] POSTPROC EVALon 24-29-2378KWMY POSTPROC EVAL HNO ID: [id number] Author: ILA MORTENSEN MD Service: Critical Care Author Type: Anesthesiologist Type: Anesthesia Postprocedure Evaluation Filed: 06/14/2024 16:00 Note Text: POST ANESTHESIA EVALUATION NOTE : 1970 Procedure Summary Date: 06/14/24 Room / Location: OR11 / OR Anesthesia Start: 48 Anesthesia Stop: 1137 Procedure: LAPAROSCOPY COLECTOMY, PARTIAL, [...] June 14, 2024 TIME: 3:59 PM CSN: [id number] HospitalANES PRE-OPon [id number] PRE-OPHNO ID: [id number] Author: ILA MORTENSEN MD Service: Critical Care [...] June 14, 2024 TIME: 9:23 AM CSN: [id number] HospitalMISMATCH REPAIR PROTEINS BY IHCon 55-96-4488AE BIOMARKER DISCLAIMERNormBelchertown State School for the Feeble-Minded HospitalComment on above: Order Comment: Specimen Type: TISSUE SPECIMENOrdering Facility: [facility] Address: [address] [place], [place] [address]Rfwhus Comment: Laboratory Developed Test (LDT) Disclaimer: Performance characteristics of immunohistochemical, immunofluorescent and chromogenic in-situ hybridization tests have been determined by the performing laboratory within [facility]???s [facility] Pathology and Laboratory Medicine Department ([facility], [facility], [facility], [facility], [facility], [facility], or [facility]) in a manner consistent with CLIA requirements. One or more of these tests havenot been cleared or approved by the FDA. [facility] is regulated under CLIA as qualified to perform high-complexity testing. These tests are used for clinical purposes. They should not be regarded as investigational or for research. Positive and negative controls stain appropriately.Performed By: #### [id number] ####[facility] LABCLIA [id number] [place] [address] [place] AMERICAAP BLOCK XJS8YvhgcfVeyynemzTempleton Developmental CenterComment on above:Order Comment: Specimen Type: TISSUE SPECIMENOrdering Facility: [facility] Address: [address] [place], [place] [address]Performed By: #### [id number] ####[facility] LABCLIA [id number] [address] STREETBIOMARKER INTERPRETATION COMMENT AND REFERENCE [facility] on above:Order Comment: Specimen Type: TISSUE SPECIMENOrdering Facility: [facility] Address: [address] [place], [place] [address]Result Comment: Intact expression of MMR (mismatch repair) proteins by [...] patients with metastatic carcinoma, Alana et al. (NYJ 2015;372:2509-20) reported that the clinical benefit of pembrolizumab, an anti- programmed 1 (PD-1) immune checkpoint inhibitor, was predicted [...] appropriate setting of genetic counseling with informed patientconsent, further genetic testing may be helpful. For more information or questions about this result, please call the [facility] for [facility] [employer] [facility] at [phone].Performed By: #### [id number] ####[facility] LABIA [id number] [address] STREETBIOMARK METHOD Immunohistochemistry was performed on formalin fixed paraffin-embedded tissue using the following clones: MLH1 (clone M1 mouse monoclonal); MSH2 ([id number] mouse monoclonal); and MSH6 (SP93 rabbit monoclonal); followed by ultrasensitive bright field detection (Optiview with amplification) from [[email or web address], [place]]. PMS2 (EP51 Rabbit monoclonal, [employer]); followed by ultrasensitive bright field detection ( Rosales Refine Polymer DAB Detection) from [[employer], [place], [place]].[facility] HospitalComment on above: Order Comment: Specimen Type: TISSUE SPECIMENOrdering Facility: [facility] Address: [address] [place], [place] [address]Performed By: #### [id number] ####[facility] LABIA [id number] [address] [address]RE[address] HospitalComment on above:Order Comment: Specimen Type: TISSUE SPECIMENOrdering Facility: [facility] Address: [address] [place], [place] [address]Performed By: #### [id number] ####[facility] LABIA [id number] [address]ETFIXATIVEFormalin, 10% Neutral BufferedNoMilford Regional Medical Center HospitalComment on above:Order Comment: Specimen Type: TISSUE SPECIMENOrdering Facility: [facility] Address: [address] [place], [place] [address]Performed By: #### [id number] ####[facility] LABCLIA [id number] [place] [address] [place] OF AMERICAMLH1 IMMUNOHISTOCHEMICAL RESULTSNormal/Intact Nuclear ExpressionNoMilford Regional Medical Center HospitalComment on above:Order Comment: Specimen Type: TISSUE SPECIMENOrdering Facility: [facility] Address: [address] [place], [place] [address]Performed By: #### [id number] ####[facility] LABCLIA [id number] [place] [address] [place] OF AMERICAMLH1 PROMOTER METHYLATION ASSAYKenmore Hospital Comment on above:Order Comment: Specimen Type: TISSUE SPECIMENOrdering Facility: [facility] Address: [address] [place] [address] Performed By: #### [id number] ####[facility] LABCLIA [id number] [place] [address] [place] MMR INTERPRETATIONProficient (Microsatellite Stable)[facility] Comment on above:Order Comment: Specimen Type: TISSUE SPECIMENOrdering Facility: [facility] Address: [address] [place] [address] Performed By: #### [id number] ####[facility] LABCLIA [id number] [place] [address] [place] MSH2 IMMUNOHISTOCHEMICAL RESULTSNormal/Intact Nuclear ExpressionNoMilford Regional Medical Center HospitalComment on above:Order Comment: Specimen Type: TISSUE SPECIMENOrdering Facility: [facility] Address: [address] [place], [place] [address]Performed By: #### [id number] ####[facility] LABCLIA [id number] [place] [address] [place] MSH6 IMMUNOHISTOCHEMICAL RESULTSNormal/Intact Nuclear ExpressionNoMilford Regional Medical Center HospitalComment on above:Order Comment: Specimen Type: TISSUE SPECIMENOrdering Facility: [facility] Address: [address] [place], [place] [address]Performed By: #### [id number] ####[facility] LABCLIA [id number] [address] PMS2 IMMUNOHISTOCHEMICAL RESULTSNormal/Intact Nuclear ExpressionNoWesson Memorial HospitalComment on above:Order Comment: Specimen Type: TISSUE SPECIMENOrdering Facility: [facility] Address: [address] [place], [place] [address]Performed By: #### [id number] ####[facility] LABCLIA [id number] [address] STATES [place] TUMOR TYPE MMRPrimary Colorectal AdenocarcinomaNoMilford Regional Medical Center HospitalComment on above:Order Comment: Specimen Type: TISSUE SPECIMENOrdering Facility: [facility] Address: [address] [place], [place] [address]Performed By: #### [id number] ####[facility] LABCLIA [id number] [address] OF AMERICAOPERATIVE NOon 13-30-6720TVWQNSAHP [facility] ID: [id number] Author: DONIS CARIAS MD Service: Colorectal Author Type: Physician Type: Operative Report Filed: 06/21/2024 15:52 Note Text: COLON AND RECTAL SURGERY OPERATIVE REPORT PATIENT NAME: Piper Rodríguez ADMISSION DATE: 06/14/2024 LOG ID: [id number] SURGERY/PROCEDURE DATE: 06/14/2024 INCISION/PROCEDURE START TIME: 9:17 AM INCISION CLOSE/PROCEDURE END TIME: 11:24 AM AGE: [age] year old SEX: male SURGEON(S)/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 The bowel was lined [...] The anastomosis was inspected (more content not included)...NormalRoslindale General Hospital PATHOLOGYon 71-70-4549MDEYU FOR ADDITIONAL BIOMARKERS/MOLECULAR LMVFNIYU6NoercuRnycgxfu HospitalComment on above:Order Comment: Specimen Type: TISSUE SPECIMENOrdering Facility: [facility] Address: [address] [place], [place] [address]Performed By: #### S ####[facility] LABCLIA [id number] [address] [facility] LABORATORYCLIA [id number] [address] OF AMERICACASE REPORTNoWesson Memorial HospitalComment on above:Order Comment: Specimen Type: TISSUE SPECIMENOrdering Facility: [facility] Address: [address] [place], [place] [id number] Comment: Surgical Pathology Report Case: [id number] Authorizing Provider: Donis Carias MD Collected: 06/14/2024 10:43 AM Ordering Location: [facility] Received: 06/14/2024 11:18 AM Operating Room Pathologist: Samir De La Cruz MD Specimen: Colon, Resection, right colonPerformed By: #### S ####[facility] LABCLIA [id number] [address] LABORATORYCLIA [id number] [address]INICAL HISTORYNormBaystate Noble HospitalComment on above:Order Comment: Specimen Type: TISSUE SPECIMENOrdering Facility: [facility] Address: [address] [place], [place] [address]Result Comment: Pre-op diagnosis: Malignant neoplasm of ascending colon (HCC) [C18.2]Performed By: #### S ####[facility] LABCLIA [id number] [address] LABORATORYIA [id number] [address] DIAGNOSISTempleton Developmental CenterComment on above:Order Comment: Specimen Type: TISSUE SPECIMENOrdering Facility: [facility] Address: [address] [place], [place] [address]Result Comment: Terminal ileum, right colon, appendix, and omentum, resection: - Invasive moderately differentiated colonic adenocarcinoma. - Three of 18 lymph nodes involved by metastatic adenocarcinoma (3/18). - Appendix with fibrous obliteration of the tip. - Omentum with no evidence of tumor. - Terminal ileum with no evidence of tumor. - See synoptic report. Performed By: #### S ####[facility] LABCLIA [id number] [address] AMERICAFAIRVIEW LABORATORYCLIA [id number] [place] [address] [facility] HospitalComment on above:Order Comment: Specimen Type: TISSUE SPECIMENOrdering Facility: [facility] Address: [address] [place], [place] [id number] Comment: Diagnostic interpretation performed at: [facility], [address] [place], [place] [id number] CLIA# [id number] Motor Vehicles Inspector: MEEK Aguirreerformed By: #### S ####[facility] LABCLIA [id number] [address] LABORATORYCLIA [id number] [address] Comment: Diagnostic interpretation performed at: [facility], [address] [place] [address] CLIA# [id number] Motor Vehicles Inspector: Kenneth Rajput MD Electronically signed out by: MEEK Duranerformed By: #### [id number] ####[facility] LABCLIA [id number] [address] StreetComment on above:Order Comment: Specimen Type: TISSUE SPECIMENOrdering Facility: [facility] Address: [address] [place], [place] [address]Result Comment: A. Colon, Resection Received in formalin designated right colon is a specimen consisting of a segment of small bowel (9.1 cm in length and averaging 3.7 cm in circumference), segment of colon (21.1 cm in length and measuring up to 8.2 cm in circumference), and appendix (6.8 cm in length by 0.7 cm in diameter. The pro ximal margin is inked blue, the distal margin [...] by mass. The remainder of the mucosal surfaceis spring with normal mucosal ridges. The wall [...] reveal any areas of induration or nodularity. Bearing Grinder sections are submitted as follows: A1 perpendicular proximal and distal bowel margins, A2 perpendicular circumferential (radial) soft tissue margin, A3 perpendicular mesenteric soft tissue margin, A4 mass in relation to soft tissue, A5 mass in relation to serosa (serosa inked green), A6 mass with adjacent distal uninvolved bowel, A7 mass with adjacent proximal uninvolved bowel, A8 cecal pouch, A9 ileocecalvalve, A10 appendix, A11 lymph node totally submitted in relation to mass, A12-A13 ascending one lymph node bisected totally submitted per cassette, A14 four ascending colon lymph nodes totally submitted, A15 three ascending colon lymph nodes totally submitted, A16 two possible ascending colon lymph nodes totally submitted, A17-A20 one cecal lymph node bisected totally submitted per cassette, A21two cecal lymph nodes totally submitted, A22 two cecal lymph nodes totally submitted. BF June 14, 2024 1:43 PM Gross examination performed at [facility], [address] [place] [id number] By: #### S ####[facility] LABCLIA [id number] [address] [address] [facility] LABORATORYIA [id number] [place] [id number] [facility] CENTERSYNOPTIC REPORTNormalPlunkett Memorial HospitalComment on above: Order Comment: Specimen Type: TISSUE SPECIMENOrdering Facility: [facility] Address: [address] [id number] Comment: COLON AND RECTUM: Resection COLON AND RECTUM: RESECTION [...] Category: pN1b ADDITIONAL FINDINGS Additional Findings: None identifiedPerformed By: #### S ####[facility] LABCLIA [id number] [address] [place] [address] [facility] CENTERFAIRMERCY HEALTH [facility]FI[facility] LABORATORYCLIA [id number] [address] [id number] [facility] CENTEREC COMPLETEon 45-65-8555PMV COMPLETEVentricular Rate : 62 BPM Atrial Rate : 62 BPM P-R Interval : 170 ms QRS Duration : 94 ms Q-T Interval : 402 ms QTC Calculation(Bazett) : 408 ms Calculated P Mcelhattan : 50 degrees Calculated R Mcelhattan : 18 degrees Calculated T Mcelhattan : 44 degrees NORMAL SINUS RHYTHM NORMAL ECG Confirmed by ALEX METCALF MD ([id number]) on 06/09/2024 6:31:40 AM NAME : PIPER RODRÍGUEZ PID : [id number] : 1970 Gender : Male Race : ORD : [id number] Procedure Date : Jun 08 2024 08:53:10 Edit Date : Jun 09 2024 06:31:44 Diagnosis: NORMAL SINUS RHYTHM NORMAL ECG Confirmed by ALEX METCALF MD ([id number]) on 06/09/2024 6:31:40 AM Test Reason : PRE OP Location : 545 : [facility] Overread By : ALEX METCALF MD Edited By : ALEX METCALF MD Referred By : DONIS CARIAS Acquired by : [facility]Ohio[facility] PHYSICALon 06-08-2024 HISTORY PHYSICALHNO ID: [id number] Author: AUBREY BAER PA-C Service: ? Author Type: Physician Associate Broker Type: H&P Filed: 06/08/2024 09:20 Note Text: [...] 5 (+SHERIE, unable to tolerate CPAP ) [id number] Score: Age: <65 Sex: male CHF history: No Hypertension history: Yes Stroke/TIA/thromboembolism history: No Vascular disease history: No Diabetes history: No [id number] Score: 1 ARISCAT Score: Age: 51-80 Preoperative [...] fevers. Neuro: No history of TIA's, stroke, NIGHT COURT MAGISTRATE tumor, impaired sensorium, hemiplegia, paraplegia or quadraplegia. [...] muscle pain. Skin: Ne (more content not included)...NormalCoshocton Regional Medical CenterCNPNon 77-36-9364QUZPHqxboovoj (FVPRAD) PIPER RODRÍGUEZ ([id number]) 1970 M Date Time Provider Department 06/05/24 [...] (None) Encounter Status:Closed by DONIS CARIAS on 06/05/24NoalPlunkett Memorial Hospital CBC W Auto Differential panel (Bld)on 93-02-1228Esjsryppp (Bld) [#/Vol]0.06 10*3/uLNormal<0.11[facility] HospitalComment on above:Order Comment: Specimen Type: BLOOD SPECIMENOrdering Facility: [facility] Address:[address] [place], [place] [address]Performed By: #### 25124-6 ####[facility] LABORATORYCLIA [id number] [place] [id number] [place] AMERICABasophils/100 WBC (Bld)1.0 %NormalWaynesville HospitalComment on above: Order Comment: Specimen Type: BLOOD SPECIMENOrdering Facility: [facility] Address:[address] [place], [place] [address]Performed By: #### 59143- 8 ####[facility] LABORATORYCLIA [id number] [place] [id number] [place] AMERICADifferential cell count method Nom (Bld)AutoNormal [facility]nesville HospitalComment on above:Order Comment: Specimen Type: BLOOD SPECIMENOrdering Facility: [facility] Address:[address] [place], [place] [address]Performed By: #### 96180-5 ####[facility] LABORATORYCLIA [id number] [place] [address] [place] Eosinophils (Bld) [#/Vol]0.28 10*3/uLNormal<0.46Waynesville HospitalComment on above:Order Comment: Specimen Type: BLOOD SPECIMENOrdering Facility: [facility] Address:[address] [place], [place] [address]Performed By: #### 27610-2 ####[facility] LABORATORYCLIA [id number] [place] [id number] [place] AMERICAEosinophils/100 WBC (Bld)4.5 %NormalWaynesville HospitalComment on above:Order Comment: Specimen Type: BLOOD SPECIMENOrdering Facility: [facility] Address:[address] [place], [place] [address]Performed By: #### 15696-8 ####[facility] LABORATORYCLIA [id number] [place] [id number] [place] AMERICAErythrocyte distribution width (RBC) [Ratio]16.0 %High11.5-15.0[facility] HospitalComment on above:Order Comment: Specimen Type: BLOOD SPECIMENOrdering Facility: [facility] Address:[address] [place], [place] [address]Performed By: #### 96892-8 ####[facility] LABORATORYCLIA [id number] [place] [address] [place] AMERICAHematocrit (Bld) [Volume fraction]46.1 %Normal 39.0-51.0[facility] HospitalComment on above:Order Comment: Specimen Type: BLOOD SPECIMENOrdering Facility: [facility] Address:[address] [place], [place] [address]Performed By: #### 28831-7 ####[facility] LABORATORYCLIA [id number] [place] [address] [place] Hemoglobin (Bld) [Mass/Vol]15.1 g/zMVyqlpc47.0-17.0[facility] HospitalComment on above:Order Comment: Specimen Type: BLOOD SPECIMENOrdering Facility: [facility] Address:[address] [place], [place] [address]Performed By: #### 28572-6 ####[facility] LABORATORYCLIA [id number] [place] [address] [place] GERMAN HOSPITALImmature granulocytes (Bld) [#/Vol]0.03 10*3/uL Normal<0.10Waynesville HospitalComment on above:Order Comment: Specimen Type: BLOOD SPECIMENOrdering Facility: [facility] Address:[address] [place], [place] [address]Performed By: #### 24595-8 ####[facility] LABORATORYCLIA [id number] [place] [id number] [place] Immature granulocytes/100 WBC (Bld)0.5 %NormalFamclean hospital HospitalComment on above: Order Comment: Specimen Type: BLOOD SPECIMENOrdering Facility: [facility] Address:[address] [place], [place] [address]Performed By: #### 29625- 8 ####[facility] LABORATORYCLIA [id number] [place] [address] [place] [facility] [facility] HOSPITALLymphocytes (Bld) [#/Vol]1.18 10*3/uLNormal1.00-4.00 [place] HospitalComment on above:Order Comment: Specimen Type: BLOOD SPECIMENOrdering Facility: [facility] Address:[address] [place], [place] [address]Performed By: #### 59317-2 ####[facility] LABORATORYCLIA [id number] [place] [id number] [place] Lymphocytes/100 WBC (Bld)18.8 %NormalWaynesville HospitalComment on above:Order Comment: Specimen Type: BLOOD SPECIMENOrdering Facility: [facility] Address:[address] [place], [place] [address]Performed By: #### 65198- 8 ####[facility] LABORATORYCLIA [id number] [place] [id number] [facility] (RBC) [Entitic mass]30.3 nwWnejpx76.0-34.0[facility] HospitalComment on above:Order Comment: Specimen Type: BLOOD SPECIMENOrdering Facility: [facility] Address:[address] [place], [place] [address]Performed By: #### 81569-3 ####[facility] LABORATORYCLIA [id number] [place] [id number] [facility]ENTERMC (RBC) [Mass/Vol] 32.8 g/hQZwqmkv96.5-36.0[facility] HospitalComment on above:Order Comment: Specimen Type: BLOOD SPECIMENOrdering Facility: [facility] Address:[address] [place], [place] [address]Performed By: #### 07629-9 ####[facility] LABORATORYCLIA [id number] [place] [id number] [facility] (RBC) [Entitic vol]92.4 iMPbmhjf55.0-100.0[facility] HospitalComment on above:Order Comment: Specimen Type: BLOOD SPECIMENOrdering Facility: [facility] Address:[address] [place], [place] [address]Performed By: #### 00315-6 ####[facility] LABORATORYCLIA [id number] [place] [id number] [place] AMERICAMonocytes (Bld) [#/Vol] 0.66 10*3/uLNormal<0.87[facility] HospitalComment on above:Order Comment: Specimen Type: BLOOD SPECIMENOrdering Facility: [facility] Address:[address] [place], [place] [address]Performed By: #### 66712-6 ####[facility] LABORATORYCLIA [id number] [place] [id number] [place] AMERICAMonocytes/100 WBC (Bld)10.5 %NormalWaynesville HospitalComment on above: Order Comment: Specimen Type: BLOOD SPECIMENOrdering Facility: [facility] Address:[address] [place], [place] [address]Performed By: #### 09351- 8 ####[facility] LABORATORYCLIA [id number] [place] [id number] [place] AMERICANeutrophils (Bld) [#/Vol]4.06 10*3/uLNormal1.45-7.50 [facility] HospitalComment on above:Order Comment: Specimen Type: BLOOD SPECIMENOrdering Facility: [facility] Address:[address] [place], [place] [address]Performed By: #### 49077-5 ####[facility] LABORATORYCLIA [id number] [place] [id number] [place] Neutrophils/100 WBC (Bld)64.7 %NormalWaynesville HospitalComment on above:Order Comment: Specimen Type: BLOOD SPECIMENOrdering Facility: [facility] Address:[address] [place], [place] [address]Performed By: #### 46807- 8 ####MAUREENJAMMIE LABORATORYCLIA [id number] [place] [id number] [place] AMERICANucleated RBC (Bld) [#/Vol]10*3/uLNormal<0.01[facility] HospitalComment on above:Order Comment: Specimen Type: BLOOD SPECIMENOrdering Facility: [facility] Address:[address] [place], [place] [address]Performed By: #### 05464-3 ####[facility] LABORATORYCLIA [id number] [place] [id number] [place] AMERICANucleated RBC/100 WBC (Bld) [Ratio]0.0 /100 WBCNormalWaynesville HospitalComment on above:Order Comment: Specimen Type: BLOOD SPECIMENOrdering Facility: [facility] Address:[address] [place], [place] [address]Performed By: #### 98202-2 ####[facility] LABORATORYCLIA [id number] [place] [id number] [place] AMERICAPlatelet mean volume (Bld) [Entitic vol]10.1 fLNormal 9.0-12.7Fspringfield hospital medical center HospitalComment on above:Order Comment: Specimen Type: BLOOD SPECIMENOrdering Facility: [facility] Address:[address] [place], [place] [address]Performed By: #### 87349-8 ####[facility] LABORATORYCLIA [id number] [place] [id number] [place] Platelets (Bld) [#/Vol]182 10*3/qEGltqoh291-038Zdalmbtr HospitalComment on above:Order Comment: Specimen Type: BLOOD SPECIMENOrdering Facility: [facility] Address:[address] [place], [place] [address]Performed By: #### 87691-0 ####[facility] LABORATORYCLIA [id number] [place] [id number] [place] AMERICARBC (Bld) [#/Vol]4.99 10*6/uLNormal4.20-6.00 [facility] HospitalComment on above:Order Comment: Specimen Type: BLOOD SPECIMENOrdering Facility: [facility] Address:[address] [place], [place] [address]Performed By: #### 35245-6 ####[facility] LABORATORYCLIA [id number] [place] [id number] [place] OF AMERICAWBC (Bld) [#/Vol]6.27 10*3/uLNormal3.70-11.00[facility] HospitalComment on above:Order Comment: Specimen Type: BLOOD SPECIMENOrdering Facility: [facility] Address:[address] [place], [place] [address]Performed By: #### 67446- 8 ####[facility] LABORATORYCLIA [id number] [address] STATES OF AMERICACEA SerPl-mCncon 11-44-7103Rzltfiruyguxfunb Ag [Mass/Vol]3.5 ng/mLHigh<=2.9FaEssex HospitalComment on above:Order Comment: Specimen Type: BLOOD SPECIMENOrdering Facility: [facility] Address:[address] [place], [place] [address]Result Comment: Carcinoembryonic antigen test is used as an aid in monitoring response to treatmentor recurrence in patients with established colorectal, breast, lung, prostatic, pancreatic, and ovarian carcinomas. Clinical correlation is required. The Carcinoembryonic antigen test was performed using the KitCheckel DXI paramagnetic particle chemiluminescent immunoassay method. Results obtained with different assay methods or kits cannot be used interchangeably.Performed By: #### 2039-6 ####[facility] LABCLIA [id number] [place] [address] [place] AMERICACT ABD/PEL W IVCONon 89-73-8780VL ABD/PEL W IVCON* * *Final Report* * * DATE OF [...] pelvis. 4. Fatty infiltration of the liver. Menu Planner: WILBER Transcribe Date/Time: Jun 04 2024 8:16A Dictated by : OSKAR JOHNSON MD This examination was interpreted and the report reviewed and electronically signed by: OSKAR JOHNSON MD on Jun 04 2024 8:28AM EST [id number] Community Hospital CHEST W IVCONon 34-43-1740QG CHEST W IVCON* * *Final Report* * * DATE OF [...] pelvis. 4. Fatty infiltration of the liver. Menu Planner: WILBER Transcribe Date/Time: Jun 04 2024 8:16A Dictated by : OSKAR JOHNSON MD This examination was interpreted and the report reviewed and electronically signed by: OSKAR JOHNSON MD on Jun 04 2024 8:28AM EST [id number] Memorial HospitalComprehensive metabolic 2000 panel on 85-08-0168Wopeawy [Mass/Vol]4.1 g/dLNormal3.9-4.9[facility] HospitalComment on above:Order Comment: Specimen Type: BLOOD SPECIMENOrdering Facility: [facility] Address:[address] [place], [place] [address]Performed By: #### 64244-1 ####[facility] LABORATORYCLIA [id number] [place] [address] [place] AMERICAALP [Catalytic activity/Vol]85 U/LFoafyn87-571 [facility] HospitalComment on above:Order Comment: Specimen Type: BLOOD SPECIMENOrdering Facility: [facility] Address:[address] [place], [place] [address]Performed By: #### 60149-5 ####[facility] LABORATORYCLIA [id number] [place] [address] [place] AMERICAALT [Catalytic activity/Vol]175 U/CTkxy95-02Mlwjkxia HospitalComment on above:Order Comment: Specimen Type: BLOOD SPECIMENOrdering Facility: [facility] Address:[address] [place], [place] [address]Performed By: #### 31553- 8 ####[facility] LABORATORYCLIA [id number] [place] [id number] [place] AMERICAAnion gap [Moles/Vol]13 mmol/LNormal8-15[facility] HospitalComment on above:Order Comment: Specimen Type: BLOOD SPECIMENOrdering Facility: [facility] Address:[address] [place], [place] [address]Performed By: #### 98822-9 ####[facility] LABORATORYCLIA [id number] [place] [id number] [place] AMERICAAST [Catalytic activity/Vol]151 U/VPkrb06-59Rnnrlzct HospitalComment on above:Order Comment: Specimen Type: BLOOD SPECIMENOrdering Facility: [facility] Address:[address] [place], [place] [address]Performed By: #### 99265-2 ####[facility] LABORATORYCLIA [id number] [place] [id number] [place] AMERICABilirubin [Mass/Vol]0.6 mg/dLNormal0.2-1.3Fspringfield hospital medical center HospitalComment on above:Order Comment: Specimen Type: BLOOD SPECIMENOrdering Facility: [facility] Address:[address] [place], [place] [address]Performed By: #### 45968-2 ####AMRITA LABORATORYCLIA [id number] [place] [id number] [place] OF AMERICACalcium [Mass/Vol]9.1 mg/dLNormal8.5-10.2Fspringfield hospital medical center HospitalComment on above:Order Comment: Specimen Type: BLOOD SPECIMENOrdering Facility: [facility] Address:[address] [place], [place] [address]Performed By: #### 19268-7 ####AMRITA LABORATORYCLIA [id number] [place] [id number] [place] OF AMERICAChloride [Moles/Vol]94 mmol/WMzo25-702Kvoocbak HospitalComment on above: Order Comment: Specimen Type: BLOOD SPECIMENOrdering Facility: [facility] Address:[address] [place], [place] [address]Performed By: #### 81683- 8 ####MAUREENJAMMIE LABORATORYCLIA [id number] [place] [id number] [place] AMERICACO2 [Moles/Vol]24 mmol/MYmebhp43-92[facility] Comment on above:Order Comment: Specimen Type: BLOOD SPECIMENOrdering Facility: [facility] Address:[address] [place] [address] Performed By: #### 91683-0 ####AMRITA LABORATORYCLIA [id number] [place] [id number] [place] AMERICACreatinine [Mass/Vol]1.08 mg/dLNormal0.73-1.22[facility] Memorial HospitalComment on above:Order Comment: Specimen Type: BLOOD SPECIMENOrdering Facility: [facility] Address:[address] [place], [place] [address]Performed By: #### 36931-7 ####AMRITA LABORATORYCLIA [id number] [place] [id number] [place] AMERICACreatinine and Glomerular filtration rate.predicted panel (S/P/Bld)82 mL/min/1.73m???Normal>=60Pl[facility] Memorial HospitalComment on above:Order Comment: Specimen Type: BLOOD SPECIMENOrdering Facility: [facility] Address:[address] [place], [place] [address]Result Comment: Estimated Glomerular Filtration Rate (eGFR) is calculated using the 2020 CKD-EPI creatinine equation. This equation utilizes serum creatinine, sex, and age as parameters. The creatinine assay has traceable calibration to isotope dilution-mass spectrometry. Refer to KDIGO guidelines for clinical interpretation. In patients with unstable renal function, e.g. those with acute kidney injury, the eGFR may not accurately reflect actual GFR.Performed By: #### 25461-0 ####AMRITA LABORATORYCLIA [id number] [place] [id number] [place] AMERICAGlucose [Mass/Vol]97 mg/qTMfjgmo28-59Whskglyl HospitalComment on above: Order Comment: Specimen Type: BLOOD SPECIMENOrdering Facility: [facility] Address:[address] [place], [place] [address]Result Comment: The [place] Diabetes Association (ADA) provides guidance for cutoff values for fast ing glucose and random glucose. The ADA defines [...] Standards of Medical Care in Diabetes 2016, [place] [employer]. Diabetes Care. 2016.39(Suppl 1).Performed By: #### 19576-6 ####AMRITA LABORATORYCLIA [id number] [place] [address] [place] AMERICAPotassium [Moles/Vol]5.2 mmol/LHigh3.7-5.1Fspringfield hospital medical center HospitalComment on above:Order Comment: Specimen Type: BLOOD SPECIMENOrdering Facility: [facility] Address:[address] [place], [place] [address]Performed By: #### 92195-7 ####AMRITA LABORATORYCLIA [id number] [place] [id number] [place] AMERICAProtein [Mass/Vol]7.8 g/dLNormal6.3-8.0[place] HospitalComment on above:Order Comment: Specimen Type: BLOOD SPECIMENOrdering Facility: [facility] Address:[address] [place], [place] [address]Performed By: #### 21060-6 ####AMRITA LABORATORYCLIA [id number] [place] [address] [place] AMERICASodium [Moles/Vol]131 mmol/OZzs841-978Ouvjwxxi HospitalComment on above: Order Comment: Specimen Type: BLOOD SPECIMENOrdering Facility: [facility] Address:[address] [place], [place] [address]Performed By: #### 00109- 8 ####AMRITA LABORATORYCLIA [id number] [place] [id number] [place] AMERICAUrea nitrogen [Mass/Vol]11 mg/dLNormal02-14[facility] HospitalComment on above:Order Comment: Specimen Type: BLOOD SPECIMENOrdering Facility: [facility] Address:[address] [place], [place] [address]Performed By: #### 29772-1 ####AMRITA LABORATORYCLIA [id number] [address] OF AMERICANURSING PROGon [id number] PROGHNO ID: [id number] Author: ABILIO TANG RN Service: PICC Team [...] Rodríguez DATE: June 02, 2024 TIME: 8:53 [facility] HospitalCNPNon [id number] ([facility]) PIPER RODRÍGUEZ ([id number]) 1970 M Date Time Provider Department 06/01/24 DONIS CARIAS [facility] During your visit today, we recorded the following information about you: Be Cloud 06/01/2024 10:07 AM Signed 06/01 Patient called, stated that he wanted to cancel CT that was for 06/02 due to distance to appointment. Stated that will go to [facility] to gert CT done. Was wondering if able to go to [place] for CT? Jocelyn Cantrell RN 06/01/2024 11:03 AM Signed Spoke with patient. He was under the impression he could get his CT done in [place] and could have the images sent to Dr. Carias. We had a long discussion about the process to make that happen and my concerns that it would not be done in time to continue with his surgery on 06/14. He was agreeable to reschedule his CT at [place] on 06/02/24. He will get his lab work done tomorrow prior to his CT. Allergies As of Date: 06/01/2024 (No Known Allergies) Date Reviewed: 05/25/2024 Reviewed by: Jessica Bass OCCA - Fully Assessed Reason for Visit: Patient Question [9200] Prescriptions as of 06/01/2024 - metroNIDAZOLE (FLAGYL) [...] (None) Encounter Status:Closed by JOCELYN CANTRELL on 06/01/24[facility] [id number] Visit ([facility]) PIPER RODRÍGUEZ ([id number]) 1970 M Date Time Provider Department 05/25/24 11:20 AM DONIS CARIAS [facility] During your visit today, we recorded [...] for internal providers or letter via the [place] Postal Service for external providers. Chief Complaint: [...] mass Colonoscopy 05/10/24 - Dr. Hedrick @ [facility] Scan on 05/16/2024 9:34 AM by Norma Magallanes: Seth Castro operative note (path pending) [id number] Pathology Scan on 05/22/2024 8:26 AM by Be Cloud: [facility] Report 05/11/24 COLON, Biopsy, Cecum: COLONIC TISSUE WITH INVASIVE ADENOCARCINOMA, MODERATELY DIFFERENTIATED, ULCERATION NOTED 2. COLON, Biopsy, Sigmoid: LARGE TUBULAR ADENOMA (>1 CM), NEGATIVE FOR HIGH GRADE DYSPLASIA, AREAS SHOWING CAUTERY ARTIFACT ARE POSITIVE FOR ADENOMATOUS GLANDS 3. COLON, Biopsy, Descending: TUBULAR ADENOMA. NEGATIVE FOR HIGH GRADE DYSPLASIA Colonoscopy 06/03/2018 - Dr Hedrick @ [facility] Scan on 05/15/2024 9:54 AM by Be Cloud: Seth Castro- Operative Report 06/03/18 Assessment Assessment and Plan: Piper Rodríguez is a 54 year old man with new diagnosis of cecal cancer. Discussed possibility of appendiceal in origin with extension into cecum. Regardless, the next step is to proceed with st (more content not included)...NormalCoshocton Regional Medical CenterPathology Request for Lab Corpon [id number] Request for Lab CorpNormLower Keys Medical Center Physician GroupComment on above:Order Comment: PATHOLOGY GI SPECIMENResult Comment: See report. Scanned copy available in EMR. PERFORMED BY: [address] [address] PATHOLOGIST BLOCKER HAND GUNNAR WILSON M.D.Performed By: #### PATH TO [facility] #### [place] [address] USAAmbulatory Visit Summaryon [id number] Visit SummaryAmbulatory Visit Summary PIPER RODRÍGUEZ :1970 Visit Date:04/25/2024 [...] Four times a day (before meals and atbedtime) Contact prescribing physician if questions or concerns [...] you for choosing us for your care. NormalHighland District HospitalT4 LABCORPon [id number] [Mass/Vol]9.2 ug/dLNormal4.5-12.0The [facility] HospitalComment on above:Performed By: #### T4LC #### [facility] [address] [place] [address] Dr. Rayna MathewUOFL HEALTH [facility] AUTO DIFFon [id number] #0.0 103/ulNormal0.0-0.1The [facility] HospitalComment on above:Performed By: #### CBC #### [facility] [address] [place] [address] Dr. Rayna MathewBasophils/100 WBC (Bld)0.7 %Normal0.2-2.0[facility] Comment on above:Performed By: #### CBC #### [facility] [address] [place] [address] Dr. Rayna Mejia #0.4 103/ulNormal0.0-0.7The [facility] HospitalComment on above: Performed By: #### CBC #### [facility] [address] [place] [address] Dr. Rayna Dewittosinophils/100 WBC (Bld)6.7 %Normal0.9-7.0The [facility] Comment on above:Performed By: #### CBC #### [facility] [address] [place] [address] Dr. Rayna Dewittrythrocyte distribution width (RBC) [Ratio]13.5 %Sgbrtf88.0-15.0 [facility] [facility] HospitalComment on above:Performed By: #### CBC #### [facility] [address] [place] [address] Dr. Rayna MathewHematocrit (Bld) [Volume fraction]37.2 %Critically low42.0-54.0 The [facility] HospitalComment on above:Performed By: #### CBC #### [facility] [address] [place] [address] Dr. Rayna MathewHemoglobin (Bld) [Mass/Vol]11.5 g/dLCritically low14.0-18.0The [facility] HospitalComment on above:Performed By: #### CBC #### [facility] [address] [place] [address] Dr. Rayna Paul #0.02 10e3/ulNormal0.00-0.03The [facility] HospitalComment on above:Performed By: #### CBC #### [facility] [address] [place] [address] Dr. Rayna Paul %0.3 %Normal0.0-0.5The [facility] HospitalComment on above: Performed By: #### CBC #### [facility] [address] [place] [address] Dr. Rayna Cueto #1.4 103/ulNormal1.2-3.8The [facility] HospitalComment on above:Performed By: #### CBC #### [facility] [address] [place] [address] Dr. Rayna Danielsonhocytes/100 WBC (Bld)23.8 %Idrexg63.5-60.0The [facility] HospitalComhealthsource sag[place] on above:Performed By: #### CBC #### [facility] [address] [place] [address] Dr. Rayna Fraser DIFF REQNONormalThe [facility] HospitalComment on above: Performed By: #### CBC #### [facility] [address] [place] [address] Dr. Rayna Eaton (RBC) [Entitic mass]27.4 yaLbfaya76.9-34.0The [facility] HospitalComment on above:Performed By: #### CBC #### [facility] [address] [place] [address] Dr. Rayna Russell (RBC) [Mass/Vol]30.9 g/aYTmcmya87.9-35.2The [facility] HospitalComhealthsource [place] on above:Performed By: #### CBC #### [facility] [address] [place] [address] Dr. Rayna Russell (RBC) [Entitic vol]88.6 yNHwwhfc22.0-94.0The [facility] HospitalComhealthsource [place] on above:Performed By: #### CBC #### [facility] [address] [place] [address] Dr. Rayna Atkinson #0.6 103/ulNormal0.3-0.8The [facility] HospitalComment on above:Performed By: #### CBC #### [facility] [address] [place] [address] Dr. Rayna Romanoocytes/100 WBC (Bld)9.2 %Normal1.7-12.0The [facility] Comment on above:Performed By: #### CBC #### [facility] [address] [place] [address] Dr. Rayna MarshallUT #3.5 103/ulNormal1.4-6.5The [facility] HospitalComment on above:Performed By: #### CBC #### [facility] [address] [place] [address] Dr. Rayna Marshallutrophils/100 WBC (Bld)59.3 %Evvdzy46.0-75.0The [facility] HospitalComment on above:Performed By: #### CBC #### [facility] [address] [place] [address] Dr. Rayna Ceronlet mean volume (Bld) [Entitic vol]10.4 fLNormal9.5-13.5The [facility] HospitalComment on above:Performed By: #### CBC #### [facility] [address] [place] [address] Dr. Rayna MathewPLT182 103/pbOshvbo056-899Hib [facility] HospitalComment on above: Performed By: #### CBC #### [facility] [address] [place] [address] Dr. Rayna MathewRBC4.20 106/ulCritically low4.70-6.10The [facility] HospitalComment on above:Performed By: #### CBC #### [facility] [address] [place] [address] Dr. Rayna MathewWBC6.0 103/ulNormal4.0-11.0The [facility] HospitalComment on above: Performed By: #### CBC #### [facility] [address] [place] [address] Dr. Rayna MathewFREE T3on 28-75-8554AEMR T33.28 pg/mlLNormal2.18-3.98The [facility] HospitalComment on above:Performed By: #### FT3, TSH, CMP, LIPID #### [facility] [address] [place] [address] [address] Rayna MathewGLYCOHEMOGLOBIN A1Con 83-05-4092LUN RECOMMENDATIONSEE BELOWUc Medical CenterComhealthsource [place] on above:Result Comment: ADA RECOMMENDED LIMIT 4.0 - 6.0 ADA THERAPEUTIC TARGET < 7.0 ACTION SUGGESTED > 7.0Performed By: #### A1C #### [facility] [address] [place] [address] [address] Rayna MathewGlucose [Mass/Vol]123 mg/dLNoUniversity Hospitals St. John Medical CenterComment on above:Performed By: #### A1C #### [facility] [address] [place] [address] Dr. Rayna MathewHbA1c (Bld) [Mass fraction]5.9 %Normal4.5-6.2St. Charles HospitalComment on above:Performed By: #### A1C #### [facility] [address] [place] [address] Dr. Rayna MathewLIPID PROFILEon [id number]-HDL RATIO NORMSEE [facility] HospitalComhealthsource [place] on above:Result Comment: 3.3 - 4.4 LOW RISK 4.4 - 7.1 AVERAGE RISK 7.1 - 11.0 MODERATE RISK >11.0 HIGH RISKPerformed By: #### FT3, TSH, CMP, LIPID #### [facility] [address] [place] [address] Dr. Rayna MathewCholesterol [Mass/Vol]158 mg/dLNormal<=200The [facility] Comment on above:Performed By: #### FT3, TSH, CMP, LIPID #### [facility] [address] [place] [address] [address] Rayna MathewCholesterol in HDL [Mass/Vol]47 mg/yWFmgarl64-29Pjk [facility] HospitalComhealthsource [place] on above:Performed By: #### FT3, TSH, CMP, LIPID #### [facility] [address] [place] [address] Dr. Rayna MathewCholesterol in LDL [Mass/Vol]98.0 mg/dLNormalThe [facility] HospitalComment on above:Performed By: #### FT3, TSH, CMP, LIPID #### [facility] [address] [place] [address] Dr. Rayna Portilloesterileana.total/Cholesterol in HDL [Mass ratio]3.4 {ratio} NormalThe [facility] HospitalComment on above:Performed By: #### FT3, TSH, CMP, LIPID #### [facility] [address] [place] [address] [address] Rayna Hatfield NORMAL> or = 60 mg/dl - LOW CARDIOVASCULAR RISK <40 mg/dl - HIGH CARDIOVASCULAR RISKMercy Memorial HospitalComment on above:Performed By: #### FT3, TSH, CMP, LIPID #### [facility] [address] [place] [address] Dr. Rayna Arroyo CALC NORMALSEE BELOWMercy Memorial HospitalComment on above:Result Comment: <100 mg/dl OPTIMAL 100 - 129 mg/dl NEAR OR ABOVE OPTIMAL 130 - 159 mg/dl BORDERLINE HIGH 160 - 189 mg/dl HIGH >190 mg/dl VERY HIGH Performed By: #### FT3, TSH, CMP, LIPID #### [facility] [address] [place] [address] Dr. Rayna MathewTriglyceride [Mass/Vol]65 mg/dLNormal<=150The [facility] Comment on above:Performed By: #### FT3, TSH, CMP, LIPID #### [facility] [address] [place] [address] Dr. Rayna CamejoLDL CALC13.0 mg/dLNoUniversity Hospitals St. John Medical CenterComment on above: Performed By: #### FT3, TSH, CMP, LIPID #### [facility] [address] [place] [address] Dr. Rayna MathewPRORush 14(COMP METB)on 39-94-6309Tfgxxcr [Mass/Vol]3.8 g/dLNormal 3.4-5.0The [facility] HospitalComment on above:Performed By: #### FT3, TSH, CMP, LIPID #### [facility] [address] [place] [address] [address] Rayna MathewAlbumin/Globulin [Mass ratio]0.9 {ratio}NormalThe [facility] HospitalComment on above:Performed By: #### FT3, TSH, CMP, LIPID #### [facility] [address] [address] [address] Rayna MorenoP [Catalytic activity/Vol]76 U/BEllcqo51-152Qkp [facility] HospitalComment on above:Performed By: #### FT3, TSH, CMP, LIPID #### [facility] [address] [address] [address] Rayna MorenoT [Catalytic activity/Vol]109 U/LCritically zxsg54-78Tzg [facility] HospitalComment on above:Performed By: #### FT3, TSH, CMP, LIPID #### [facility] [address] [place] [address] Dr. Rayna Grahamon gap [Moles/Vol]11.1 mmol/LNormalThe [facility] Comment on above:Performed By: #### FT3, TSH, CMP, LIPID #### [facility] [address] [address] [address] Rayna MathewAST [Catalytic activity/Vol]79 U/LCritically duhd43-49Sui [facility] HospitalComment on above:Performed By: #### FT3, TSH, CMP, LIPID #### [facility] [address] [address] [address] Rayna MathewBilirubin [Mass/Vol]0.4 mg/dLNormal0.2-1.0The [facility] Comment on above:Performed By: #### FT3, TSH, CMP, LIPID #### [facility] [address] [address] [address] Rayna MathewCalcium [Mass/Vol]9.0 mg/dLNormal8.5-10.1[facility] Comment on above:Performed By: #### FT3, TSH, CMP, LIPID #### [facility] [address] [address] [address] Rayna MathewChloride [Moles/Vol]102 mmol/KFfoaxv04-610Fhh [facility] Comment on above:Performed By: #### FT3, TSH, CMP, LIPID #### [facility] [address] [address] [address] Rayna MathewCO2 [Moles/Vol]29.5 mmol/IHxarug76.0-32.0The [facility] Comment on above:Performed By: #### FT3, TSH, CMP, LIPID #### [facility] [address] [address] [address] Rayna MathewCreatinine [Mass/Vol]0.96 mg/dLNormal0.70-1.30The [facility] HospitalComment on above:Performed By: #### FT3, TSH, CMP, LIPID #### [facility] [address] [place] [address] Dr. Rayna DewittGFR-AF INDONESIAN>60Normal>=60The [facility] HospitalComment on above:Performed By: #### FT3, TSH, CMP, LIPID #### [facility] [address] [place] [address] Dr. Rayna DewittGFR-NON AF INDONESIAN>60Normal>=60The [facility] HospitalComment on above:Performed By: #### FT3, TSH, CMP, LIPID #### [facility] [address] [place] [address] Dr. Rayna MathewGlobulin (S) [Mass/Vol]4.0 g/dLNormalThe [facility] HospitalComment on above:Performed By: #### FT3, TSH, CMP, LIPID #### [facility] [address] [place] [address] Dr. Rayna MathewGlucose [Mass/Vol]121 mg/dLCritically hono72-245Pnj [facility] HospitalComment on above:Performed By: #### FT3, TSH, CMP, LIPID #### [facility] [address] [place] [address] Dr. Rayna MathewPotassium [Moles/Vol]4.6 mmol/LNormal3.5-5.1The [facility] Comment on above:Performed By: #### FT3, TSH, CMP, LIPID #### [facility] [address] [address] [address] Rayna MathewProtein [Mass/Vol]7.8 g/dLNormal6.4-8.2The [facility] Comment on above:Performed By: #### FT3, TSH, CMP, LIPID #### [facility] [address] [address] [address] Rayna MathewSodium [Moles/Vol]138 mmol/LQrmnqg282-680Pmc [facility] Comment on above:Performed By: #### FT3, TSH, CMP, LIPID #### [facility] [address] [address] [address] Rayna MathewUrea nitrogen [Mass/Vol]11.0 mg/dLNormal7.0-18.0St. [facility] HospitalComment on above:Performed By: #### FT3, TSH, CMP, LIPID #### [facility] [address] [place] [address] Dr. Rayna Espinoza nitrogen/Creatinine [Mass ratio]11.5 mg/mgNormalThe [facility] HospitalComment on above:Performed By: #### FT3, TSH, CMP, LIPID #### [facility] [address] [address] [address] Rayna Kearney 19-14-1047VBG4.905 uIU/mLNormal0.358-3.740The [facility] HospitalComment on above:Performed By: #### FT3, TSH, CMP, LIPID #### [facility] [address] [place] [address] Dr. Rayna Mathew Vital Signs Date TimeVital SignValuePerforming MwaktehqcQhkzxvvv31-02-9361 17:56-0400Body tcuhco653.8 cmAmanda Mariela HAND CANDY CUTTER Work Phone: [facility]09-09-2025 17:56-0400 Body mass index (BMI) [Ratio]36 kg/d5Cgjusa Mariela HAND CANDY CUTTER Work Phone: [facility]09-09-2025 17:56-0400 Body sibefsdlnxw997.1 [degF]Luna Josephb HAND CANDY CUTTER Work Phone: [facility]09-09-2025 17:56-0400 Body qmpucv430.85 kgLuna Mariela HAND CANDY CUTTER Work Phone: [phone]09-09-2025 17:56-0400 Diastolic blood esszmqdz75 mm[Hg]Luna Mariela HAND CANDY CUTTER Work Phone: [address] [place], [place] 2448709-09-2025 17:56-0400 Heart vauk623 /minAmanda Mariela HAND CANDY CUTTER Work Phone: [address] [place], [place] 2448709-09-2025 17:56-0400 Respiratory rate18 /minAmanda Mariela HAND CANDY CUTTER Work Phone: [address] [place], [place] 2448709-09-2025 17:56-0400 SaO2% (BldA) [Mass fraction]95 %Luna Josephb HAND CANDY CUTTER Work Phone: [address] [place], [place] 2448709-09-2025 17:56-0400 Systolic blood eucifixo738 mm[Hg]Luna Josephb HAND CANDY CUTTER Work Phone: [address] [place], [place] 2448708-21-2025 12:58-0400 Body tyewek316.8 Leanne Carias MD Work Phone: [facility]08-21-2025 12:58-0400Body mass index (BMI) [Ratio]36.16 kg/v6ZtfxthtDonis Carias MD Work Phone: [facility]08-21-2025 12:58-0400Body bpqabr101.31 kgDonis Carias MD Work Phone: [facility]08-21-2025 12:58-0400Diastolic blood vhwjzibo97 mm[Hg]Donis Carias MD Work Phone: [facility] [facility]08-21-2025 12:58-0400Heart rate69 /min Donis Carias MD Work Phone: [facility]08-21-2025 12:58-0400Systolic blood mm[Hg]Donis Carias MD Work Phone: [facility]06-03-2025 09:55-0400Body mass index (BMI) [Ratio]36.28 kg/u1ArvxzfiDonis Carias MD Work Phone: [facility]06-03-2025 09:55-0400Body .7 kgDonis Carias MD Work Phone: [facility]06-03-2025 09:55-0400Diastolic blood kcccrumf01 mm[Hg]Donis Carias MD Work Phone: [facility]06-03-2025 09:55-0400Heart rate71 /min Donis Carias MD Work Phone: [facility]06-03-2025 09:55-0400Systolic blood mm[Hg]Donis Carias MD Work Phone: [facility]02-14-2025 08:50-0500Body snxeuj869.8 cm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 HAND CANDY CUTTERCjONLINE CONTENT COORDINATOR Work Phone: [facility]02-14-2025 08:50-0500Body mass index (BMI) [Ratio]35.87 kg/y9Gpitfhg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 HAND CANDY CUTTER.ONLINE CONTENT COORDINATOR Work Phone: [facility]02-14-2025 08:50-0500Body temperature 97.9 [degF]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 HAND CANDY CUTTER.ONLINE CONTENT COORDINATOR Work Phone: [facility]02-14-2025 08:50-0500Body euoegq998.4 kg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 HAND CANDY CUTTERCjONLINE CONTENT COORDINATOR Work Phone: [facility]02-14-2025 08:50-0500Diastolic blood qzxjivkw18 mm[Hg]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 HAND CANDY CUTTER.ONLINE CONTENT COORDINATOR Work Phone: [facility]02-14-2025 08:50-0500Heart rate88 /min 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 HAND CANDY CUTTER.ONLINE CONTENT COORDINATOR Work Phone: [facility]02-14-2025 08:50-1006PeT9% (BldA) [Mass fraction]99 %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 HAND CANDY CUTTER.ONLINE CONTENT COORDINATOR Work Phone: [facility]02-14-2025 08:50-0500Systolic blood mm[Hg]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 HAND CANDY CUTTER.ONLINE CONTENT COORDINATOR Work Phone: [facility]02-05-2025 15:21-0500Blood Pressure LocationMichael NILL [phone]-FrumiGood Samaritan [facility] [place] 06-28-2024 15:21-0500Diastolic blood mbfeleks18 mm[Hg]Jone NILL [phone]-SodkkGood Samaritan Hospital [facility] [place] 06-28-2024 15:21-0500Heart rate72 /minMichael NILL [phone]-VqnpzGood Samaritan Hospital [facility] [place] 06-28-2024 15:21-0500Respiratory rate16 /minMichael NILL [phone]-QhqqyGood Samaritan Hospital [facility] [place] 06-28-2024 15:21-0500Systolic blood arfauksc690 mm[Hg]Jone NILL [phone]-EqeknGood Samaritan Hospital [facility] [place] 06-28-2024 10:56-0500Body uifcjz381.8 cmAdaandrew Bragg MD Work Phone: cGal[facility] HospitalCrnmdp62-70-4289 10:56-0500Body mass index (BMI) [Ratio]36.47 kg/w0Rlvqeqandrew Bragg MD Work Phone: cGal[facility] HospitalXcbkmf79-64-2951 10:56-0500Body temperature 97.3 [degF]Josephandrwe Guidody MD Work Phone: cGal[facility] HospitalZzvnzh69-47-4219 10:56-0500Body ecyxzm584.3 kgJoseph Bragg MD Work Phone: cGal[facility] HospitalWusyju23-99-3515 10:56-0500Diastolic blood nxrmdacl67 mm[Hg]Joseph Bragg MD Work Phone: cGal[facility] HospitalMzjjrg85-19-2991 10:56-0500Heart rate74 /min Joseph Bragg MD Work Phone: cGal[facility] HospitalBolqax78-60-4083 10:56-0500Respiratory rate 18 /minJoseph Bragg MD Work Phone: cGal[facility] HospitalObgqld55-59-3759 10:56-1694GeV9% (BldA) [Mass fraction]97 %Joseph Bragg MD Work Phone: cGal[facility] HospitalKxwclp48-06-5858 10:56-0500Systolic blood cduigtfe630 mm[Hg]Joseph Bragg MD Work Phone: cGalion HospitalBjefth30-41-8536 08:34-0500Body easckh511.8 cmPacc 1 Work Phone: [facility]01-16-2025 08:34-0500Body mass index (BMI) [Ratio]38.78 kg/m2Pacc 1 Work Phone: [phone]01-16-2025 08:34-0500Body temperature 98.01 [degF]Pacc 1 Work Phone: [phone]01-16-2025 08:34-0500Body twewzo647.6 kgPacc 1 Work Phone: [facility]01-16-2025 08:34-0500Diastolic blood cntfzacf63 mm[Hg]Pacc 1 Work Phone: [phone]01-16-2025 08:34-0500Heart rate72 /min Pacc 1 Work Phone: [facility]01-16-2025 08:34-0500Respiratory rate 15 /minPacc 1 Work Phone: [facility]01-16-2025 08:34-5691RsM0% (BldA) [Mass fraction]98 %Pacc 1 Work Phone: [facility]01-16-2025 08:34-0500Systolic blood hvjqjgka505 mm[Hg]Pacc 1 Work Phone: [facility]01-02-2025 11:10-0500Body qqrlbu080.8 Leanne Carias MD Work Phone: [facility]01-02-2025 11:10-0500Body mass index (BMI) [Ratio]38.88 kg/n9LibxqueDonis Carias MD Work Phone: [facility]01-02-2025 11:10-0500Body temperature 97 [degF]Donis Carias MD Work Phone: [facility]01-02-2025 11:10-0500Body ieqday432.92 kgDonis Carias MD Work Phone: [facility]01-02-2025 11:10-0500Diastolic blood mm[Hg]Donis Carias MD Work Phone: [facility]01-02-2025 11:10-0500Heart rate68 /min Donis Carias MD Work Phone: [facility]01-02-2025 11:10-8426MaQ1% (BldA) [Mass fraction]97 %Donis Carias MD Work Phone: [facility]01-02-2025 11:10-0500Systolic blood uqxjitdp539 mm[Hg]Donis Carias MD Work Phone: [facility]12-03-2024 10:21-0500Blood Pressure LocationMichael NILL [phone]-RgvlbGood Samaritan Hospital [facility] [place] 04-25-2024 10:21-0500Diastolic blood lifywivu69 mm[Hg]Jone NILL [phone]-LkcnxGood Samaritan Hospital [facility] [place] 04-25-2024 10:21-0500Heart rate68 /minMichael NILL [phone]-OouowGood Samaritan Hospital [facility] [place] 04-25-2024 10:21-0500Respiratory rate16 /minMichael NILL [phone]-CbfpeTrihealth [facility] 04-25-2024 10:21-0500Systolic blood woxixtds201 mm[Hg]Jone NILL [phone]-YjdqtTrihealth Good [facility] Encounters Encounter DateEncounter [facility] ProviderFacilityStart: 02-21-2025 End: 69-13-8222ydnppgiwytRBOWright[facility] Work Phone: Start: 02-21-2025 End: 03-57-4523Vcjibvqc Adam Franklin MD-[facility] [place] [facility] Start: 02-20-2025 End: 86-88-3795spuzvcningLTTWright-Patterson Medical Center [facility] Work Phone: Start: 02-20-2025 End: 98-44-1552Dluywgvb Martha Esteves MD-LAB [facility] [place] [facility] Start: 02-02-2025 End: 45-40-6439lwjgbkwxpeDMAWright-Pat[facility] Work Phone: Start: 02-02-2025 End: 29-03-9314Wanjkepm Adam Franklin MD-LAB [facility] [place] [facility] Start: 01-30-2025 End: 47-73-5044ohwxzwslolMKLMercy Health [facility] Work Phone: Start: 01-30-2025 End: 07-89-6373Wajresh encounter procedureAmanaddison Sierra M HAND CANDY CUTTER-[facility] Work Phone: Start: 01-11-2025 End: 46-95-3999Uqqcmwg encounter procedureDonis Carias MD Work Phone: Colorectal SurgeryComment on above:Incisional hernia, without obstruction or gangrene (Primary Dx)Start: 01-11-2025 End: 84-16-7738bbxrumslmsOSLEXRT KESHINROFacility:[facility] Start: 12-27-2024 End: 05-64-5849mcyugldzanLfzmbvq R NILLFacility:[facility]ertart: 12-27-2024 End: 43-23-0074Bmvxhsa encounter procedureMichael R NILL [phone]-ObdhkGrand [facility] [place] Start: 10-24-2024 End: 82-89-0322Xcnqdlg encounter procedureDonis Carias MD Work Phone: COLORECTAL SURGERYComment on above:Follow-up examination after colorectal surgery (Primary Dx); History of colon cancerStart: 10-24-2024 End: 49-23-8124zgegevieifGKNKYZC KESHINUNIVERSITY MEDICAL CENTERacility:[facility] Start: 10-09-2024 End: 66-60-2306Fxzhreloy Gandhi RN Work Phone: Hematology/OncologyComment on above:Research (TCI Research Pre-Screening (NRG-GI008))Start: 10-04-2024 End: 91-52-4139Ngtcreloy Evans MD Work Phone: Hematology/OncologyStart: 09-27-2024 End: 00-93-7265zyyonraeekDOICMZJQ [facility] Hospitaltart: 07-18-2024 End: 51-03-1252iwotqmlbmhRyvfxby R NILLFacility:[facility]3]tart: 07-18-2024 End: 06-20-4480Geihoto encounter procedureMichael R NILL [phone]-MpyexGrand [facility] [place] Start: 07-07-2024 End: 60-64-2573xoeqocdeuoXCCVRAI WILLNERFacility:[facility]atitart: 07-07-2024 End: 38-59-2999Gturbux encounter procedure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 HAND CANDY CUTTER.ONLINE CONTENT COORDINATOR Work Phone: Colorectal SurgeryComment on above:Follow-up examination after colorectal surgery (Primary Dx); Encounter for staple removalStart: 07-05-2024 End: 24-87-9503cmlfrafxdqXzrxkkd R NILLFacility:CD:[id number]: 06-30-2024 End: 76-68-3904Potgqtdrg encounterTifmehreen Willis RN Work Phone: Hematology/OncologyComment on above:Care Coordination (Cancelling appointments at our office)Start: 06-29-2024 End: 00-44-8402Cfcfr Kathy Beaulieu Research Coordinator Hematology/OncologyComment on above:Research (TCI Research Pre-Screening (IRB: NRG-GI008))Start: 06-29-2024 End: 07-56-2495Hofluhczq encounterChelle Willis RN Work Phone: Hematology/OncologyComment on above:Care Coordination (Treatment prep)Start: 06-28-2024 End: 31-57-9544Yptwjzu encounter procedureMichael R NILL [phone]-HnoveGood Samaritan Hospital [facility] [place] Start: 06-28-2024 End: 95-10-4404wenzhpqbzuIgdlklh R NILLFacility:[facility]3]tart: 06-28-2024 End: 00-53-7103Lxxdls outpatient new 60 minutesAdaandrew Bragg MD Work Phone: Hematology/OncologyComment on above:Malignant neoplasm of ascending colon (HCC)Start: 06-26-2024 End: 51-04-3192Xsemjl Megan Carias MD Work Phone: Colorectal SurgeryComment on above:Malignant neoplasm of ascending colon (HCC) (Primary Dx)Start: 06-21-2024 End: 95-99-5260yrpdoshkyzPjshbdn R NILLFacility: [place]vueStart: 06-21-2024 End: 29-34-9212Hatjavh encounter procedureMichael R NILL [phone]-ZjvngGrand [facility] [place] Start: 06-21-2024 End: 56-18-6556Qjmejannq encounterDonis Carias MD Work Phone: Colorectal SurgeryStart: 06-21-2024 End: 90-58-6018Cygunimlnp and management of inpatientDOUGALLI M CASEY [facility]art: 06-20-2024 End: 79-18-3791Ohpntwvwe encounterDonis Carias MD Work Phone: Colorectal SurgeryComment on above:Post OpStart: 06-19-2024 End: 94-33-8328Mjdisfppk encounterDonis Carias MD Work Phone: Colorectal SurgeryComment on above:Patient Question Start: 06-14-2024 End: 82-22-7055Ewuvezfslc and management of inpatientDONIS CARIAS Facility:[facility]tart: 06-08-2024 End: 68-70-4689Jfvpbvdal to [place] [address] Work Phone: Pre AnesthesiaStart: 06-08-2024 End: 87-23-3539uhbmnysxepUJZMSFL KESHINROFacility:[facility] Start: 06-08-2024 End: 41-63-5555Ccwupcvpmj consultationPacc 1 Work Phone: Pre AnesthesiaComment on above:Pre-op evaluation (Primary Dx); BMI 38.0-38.9,adult; Smokeless tobacco use; SHERIE (obstructive sleep apnea)Start: 06-08-2024 End: 97-40-2201Mplmttzsxqqcs examination doneWaldo Hospital 1 Work Phone: [facility] Work Phone: Start: 06-05-2024 End: 17-04-0433Mnwcoihft encounterDonis Carias MD Work Phone: FV Provider AdultStart: 06-02-2024 End: 72-52-8169qgjylvnradJNCQWHG KESHINROFacility:[facility] HospitalStart: 58-36-2645kvgwosmndkFNNUXUU KESHINROFacility:[facility] Hospitaltart: 06-02-2024 End: 70-57-1812Pihufwmwyv hospital visit by physicianCt Prep [facility] Comment on above:Malignant neoplasm of ascending colon (HCC) [C18.2]Start: 06-01-2024 End: 86-69-8675Bqzcrdtzf encounterDonis Carias MD Work Phone: Colorectal SurgeryComment on above:Patient Question Start: 05-25-2024 End: 29-24-2887knzrcdupedPQVVOTE KESHINROFacility:[facility] Start: 05-25-2024 End: 34-22-8349Udvbocc encounter procedureDonis Carias MD Work Phone: Colorectal SurgeryComment on above:Malignant neoplasm of ascending colon (HCC) (Primary Dx)Start: 05-10-2024 End: 87-14-3738zjphgqpzimYucnzcq R NillFacility:[facility] Centertart: 05-10-2024 End: 21-38-7101vbitbzscrnWfurumd R NILLFacility:CD:[id number]: 04-25-2024 End: 27-38-9180zyhfepbzmvGPIEAFK CHAWLAFacility:[facility]ertart: 04-25-2024 End: 13-15-0491Hotbjdk encounter procedureMichael R NILL [phone]-XrtinGrand Lake Joint [facility] [place] Start: 09-13-2023 End: 78-87-6986koexwagpezIN Gen Hoy Work Phone: [facility] Work Phone: Start: 09-13-2023 End: 98-02-2403Ynudyqvh ReferredMD Gen Hoy Work Phone: [facility] [place] [facility]ospStart: 08-02-2023 End: 84-75-1790Vvcbhofx ReferredMD Gen Hoy Work Phone: [facility]-LAB [facility] Spec [place] HospStart: 07-14-2022 End: 85-45-7065svzouabbbrCL GEN HOY .Facility:P3Nwlbl: 54-50-5032inkysvenek DR GEN HOY .Facility:V6Kzoqy: 78-41-2733Lomlohryk for general adult medical examination without abnormal findingsDR GEN HOY .[facility] Campustart: 02-04-2022 End: 09-31-8305jlazxxbrzeON GEN HOY .Facility:E6Ignni: 02-04-2022 End: 68-49-6221Omxfckkkr for general adult medical examination without abnormal findingsDR GEN HOY .Facility:R0Mbjeh: 02-72-2064tklemukcrcVR GEN HOY . Facility: Procedures DateProcedureProcedure DetailPerforming ClinicianStart: 32-28-9644Wlotfdko identified in Blood by CultureKeonda Mariela HAND CANDY CUTTER Work Phone: Start: 53-88-0284Podjb cultureKeonda Mariela HAND CANDY CUTTER Work Phone: Start: 51-57-9380Mqcgbf-up visitFollSheridan Memorial Hospital - SheridanPATRICIA LUCIANOSELECT SPECIALTY HOSPITAL - HARRISBURGROStart: 52-57-9407Ohrloossl of implantable venous access portMichael NILL Start: 48-77-8606Xxrgf colectomyMichael NILL Start: 22-92-6435Cme routine ecg w/least 12 lds i&r onlyCcf ProviderStart: 22-72-4768UvxtswabdevAswtbab NILL Start: 08-30-2929BjiuopbnktrvulxhgzydppghwiXltdknt NILL Start: 64-18-6951YVF screeningDR GEN PEÑA .Comment on above:Performed By: #### [facility]ASC #### [facility] [address] [place] [address] Dr. Rayna MathewStart: 86-40-3773OlkxuuntlegLqabmiq NILL Repair of joint of left hipMichael NILL Repair of joint of right hipMichael NILL Plan of Treatment DateCare ActivityDetailAuthorStart: 86-64-6098Qotij microalbumin profile DTaP,Tdap,Td Vaccine (2 - Td or Tdap)[facility]: 05-84-0481Hzukfgmu ScreeningDiabetes ScreeningOur Lady of Mercy Hospitaltart: 26-71-7492Giqmqclf Screening Diabetes ScreeningOur Lady of Mercy Hospitaltart: 60-94-8064Unqzphah ScreeningDiabetes ScreeningOur Lady of Mercy Hospitaltart: 65-67-9956JC Controlled (<130/80)BP Controlled (<130/80)[facility] Hospitaltart: 41-02-5574Ogsqusdg identified in Urine by CultureUrine CultureMercy Health St. Vincent Medical Centertart: 61-61-9842Lhaox cultureMercy Health St. Vincent Medical Centertart: 38-52-2122Znhrrckw identified in Blood by CultureBlood CultureMercy Health St. Vincent Medical Centertart: 02-20-2025 Bacteria identified in Urine by CultureUrine CultureMercy Health St. Vincent Medical Centertart: 02-20-2025 End: 53-46-6632RfapjpmaqMercy Health St. Vincent Medical Centertart: 02-20-2025 End: 69-52-1032Bufbc cultureMercy Health St. Vincent Medical Centertart: 02-02-[address] Vincent Medical Centertart: 67-39-7302Susowkxx identified in Urine by CultureUrine CultureSumma Health [facility] Start: 43-31-2626Iqmtbiloc vaccinationHarrellsville ClinicStart: 10-24-2024 End: 68-95-5310Kdahcdb encounter procedureCOLORECTAL SURGERYComment on above:3 month follow up3 month follow up laparoscopic right colectomy on 06/14/2024 for colon cancerStart: 10-09-2024 End: 12-90-8724ywkmhcdaxg63/19/2025 4:00 PM EDT Visit (SP) Office Hematology/Oncology [address] [place] [address] [place], [place] [phone] Abdias Evans MD [address] [place] [address] [place] [address] Kisha Esteves for 2nd opinion DX: Colon CA Hematology/OncologyComment on above:Ref by Dr Kisha Esteves for 2nd opinion DX: Colon CAStart: 07-14-2024 End: 13-59-9658xajpvsbzso45/21/2025 11:30 AM [facility] Hematology/Oncology [address] [place] [address] [place] [address] pump disconnectHematology/OncologyComment on above:pump disconnectStart: 07-12-2024 End: 92-19-5648Xtqqpqvjgylsidok Ag [Mass/volume] in Serum or Plasma CARCINOEMBRYONIC ANTIGEN Lab Routine Malignant neoplasm of ascending colon (HCC) Expected: 07/12/2024 (Approximate), Expires: 10/11/2024[place] ClinicComment on above:Expected: 07/12/2024 (Approximate), Expires: 10/11/2024Start: 07-12-2024 End: 12-27-7827PST W Auto Differential panel - BloodCOMPLETE BLOOD COUNT AND DIFFERENTIAL Lab Routine Malignant neoplasm of ascending colon (HCC) Expected: 07/12/2024 (Approximate), Expires: 10/11/2024[place] ClinicComment on above: Expected: 07/12/2024 (Approximate), Expires: 10/11/2024Start: 07-12-2024 End: 40-72-8803Qdjnqusoihnpg metabolic 2000 panel - Serum or PlasmaCOMPREHENSIVE METABOLIC PANEL Lab Routine Malignant neoplasm of ascending colon (HCC) Expected: 07/12/2024 (Approximate), Expires: 10/11/2024[place] ClinicComment on above:Expected: 07/12/2024 (Approximate), Expires: 10/11/2024Start: 07-12-2024 End: 80-43-1446Tikzgfkz [Mass/volume] in Serum or PlasmaFERRITIN Lab Routine Malignant neoplasm of ascending colon (HCC) Expected: 07/12/2024 (Approximate), Expires: 10/11/2024[place] ClinicComment on above:Expected: 07/12/2024 (Approximate), Expires: 10/11/2024Start: 07-12-2024 End: 05-86-9272Avbu and Iron binding capacity panel - Serum or PlasmaIRON AND TIBC Lab Routine Malignant neoplasm of ascending colon (HCC) Expected: 07/12/2024 (Approximate), Expires: 10/11/2024[place] ClinicComment on above: Expected: 07/12/2024 (Approximate), Expires: 10/11/2024Start: 07-12-2024 End: 07-62-9351CEZF SEND OUT TST 1MISC SEND OUT TST 1 Lab Routine Malignant neoplasm of ascending colon (HCC) Expected: 07/12/2024 (Approximate), Expires: 10/11/2024[place] ClinicComment on above:Expected: 07/12/2024 (Approximate), Expires: 10/11/2024Start: 07-12-2024 End: 24-67-9236Dzodwe-up encounterHematology/OncologyComment on above:2 week follow up with l;ab port draw chemotx folfox pump connectStart: 07-07-2024 End: 78-96-0556Ofymgqv encounter mpcipggch23/14/2025 9:00 AM EST Office Visit Colorectal Surgery [address] [phone] aMylin Conte, HAND CANDY CUTTER.ONLINE CONTENT COORDINATOR [address] [address] [address] Post Op: Staple Removal - Lap RHC 06/14 [place] Colorectal SurgeryComment on above:Post Op: Staple Removal - Lap RHC 06/14 [place] Start: 81-21-8646XW PORTOCATH PLACEMENTIR PORTOCATH PLACEMENT Radiology Routine Malignant neoplasm of ascending colon (HCC) Expected: 07/05/2024 (Approximate) [facility] Work Phone: comment on above:Expected: 07/05/2024 (Approximate) Start: 07-05-2024 End: 07-59-4598Ukspnpq encounter /12/2025 10:40 AM EST Office Visit Colorectal Surgery [address] [address] 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, HAND CANDY CUTTER.ONLINE CONTENT COORDINATOR [address] [address] [address] Post Op Lap RHC 06/14 AKColorectal Surgery Comment on above:Post Op Lap RHC 06/14 AKStart: 06-30-2024 End: 97-15-3179Mbjfysa encounter nojcvstfo29/07/2025 3:40 PM EST Office Visit Colorectal Surgery [address] [facility] [address] [place] [address] 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, HAND CANDY CUTTER.ONLINE CONTENT COORDINATOR [address] [address] [address] Post Op Lap RHC 06/14 AKColorectal Surgery Comment on above:Post Op Lap RHC 06/14 AKStart: 06-30-2024 End: 46-37-9164Bsdkdxt evaluation of patient and zntzbs8106/30/2024 1:00 PM EST Nurse Visit Hematology/Oncology [address] [place] [address] [place] [address] Chelle Willis, RN [address] [place] [address] [place] [address] Chemo ed Folfox with pump connectHematology/OncologyComment on above: Chemo ed Folfox with pump connectStart: 06-28-2024 End: 27-85-6125cbbrdczhah68/05/2025 11:00 AM EST Visit (SP) Office Hematology/Oncology [address] [address] Joseph Bragg MD [address] [address] Malignant neoplasm of ascending colon Hematology/OncologyComment on above:Malignant neoplasm of ascending colonStart: 06-22-2024 End: 78-40-3316Ebcxtvy encounter ghvdhhjec72/30/2025 8:40 AM EST Office Visit Colorectal Surgery [address] [phone] [place] [address] [place] [address] Post Op surgical wound checkColorectal SurgeryComment on above:Post Op surgical wound checkStart: 06-21-2024 End: 86-93-7618Ofoavhlivqz laparotomy celiotomy w/wo biopsy spxEXPLORATORY LAPAROTOMY Perioperative dehiscence of abdominal wound with evisceration 06/21/2024 3:00 PM ESTFV ORStart: 06-14-2024 End: 80-26-3234Wwgdjmhlw to same day surgery qnnvpw8206/14/2024 7:30 AM EST - 06/14/2024 11:45 AM EST Surgery [facility] Operating Room [address] [place] [address] [place] [address] [place] [address] LAPAROSCOPY COLECTOMY, PARTIAL, W/ REMOVAL TERMINAL ILEUM W/ ILEOCOLOSTOMYFaEssex Hospital Operating RoomComment on above:LAPAROSCOPY COLECTOMY, PARTIAL, W/ REMOVAL TERMINAL ILEUM W/ ILEOCOLOSTOMYStart: 06-14-2024 End: 71-56-4375Sofr colectomy prtl w/rmvl terminal ileumLAPAROSCOPY COLECTOMY, PARTIAL, W/ REMOVAL TERMINAL ILEUM W/ ILEOCOLOSTOMY Malignant neoplasm of asc ending colon (HCC) 06/14/2024 7:30 AM ESTFV ORStart: 50-31-4386Zxaioawomt hospital visit by physicianPlunkett [facility] Hospital Operating RoomComment on above: Malignant neoplasm of ascending colon (HCC) [C18.2]Start: 06-08-2024 End: 09-29-7380Yalaeoakj to same day surgery swfavt2306/08/2024 8:50 AM EST PAT Pre Anesthesia [address] [place] [address] surgery date AnesthesiaComment on above:surgery date 06/14Start: 06-02-2024 End: 78-68-8086jqfwkwchpq36/10/2025 10:00 AM EST Results Only [facility] Draw Station [address] [place] [address] [facility] StationStart: 06-02-2024 End: 02-94-6989Rtcfcnu encounter procedureRadiologyComment on above:CT CHEST/ABD/PELVISCt prepAbd/Pel/ChestStart: 05-25-2024 End: 65-90-4597Gkeumclsaclmmeal Ag [Mass/volume] in Serum or Plasma CARCINOEMBRYONIC ANTIGEN Lab Routine Malignant neoplasm of ascending colon (HCC) Expected: 05/25/2024 (Approximate), Expires: 08/24/2024[place] ClinicComment on above:Expected: 05/25/2024 (Approximate), Expires: 08/24/2024Start: 05-25-2024 End: 38-49-0843LEI W Auto Differential panel - BloodCOMPLETE BLOOD COUNT AND DIFFERENTIAL Lab Routine Malignant neoplasm of ascending colon (HCC) Expected: 05/25/2024 (Approximate), Expires: 08/24/2024[facility] Work Phone: Comment on above:Expected: 05/25/2024 (Approximate), Expires: 08/24/2024Start: 05-25-2024 End: 29-27-5979Lkpkkmczeifei metabolic 2000 panel - Serum or PlasmaCOMPREHENSIVE METABOLIC PANEL Lab Routine Malignant neoplasm of ascending colon (HCC) Expected: 05/25/2024 (Approximate), Expires: 5[place] ClinicComment on above:Expected: 05/25/2024 (Approximate), Expires: 08/24/2024Start: 68-89-1799Kpqpr-19 Vaccine ()Covid-19 Vaccine ()[facility]: 70-34-9429Wawipecci vaccinationInfluenza Vaccine (#1)[facility]: 76-03-5378Xoszpfkaglzq Vaccine: 50+ (1 of 1 - PCV) Pneumococcal Vaccine: 50+ (1 of 1 - PCV)[facility]: 2021 Shingrix Vaccine (1 of 2)Shingrix Vaccine (1 of 2)[facility]: 06-52-9101Iwltupvj ScreeningDiabetes ScreeningOur Lady of Mercy Hospitaltart: 02-18-2016 Screening for malignant neoplasm of colonOur Lady of Mercy Hospitaltart: 46-50-0201Cvdyi panelLipid ScreeningOur Lady of Mercy Hospitaltart: 65-90-5578Brurgxwfh B Vaccine (1 of 3 - 19+ 3-dose series)Hepatitis B Vaccine (1 of 3 - 19+ 3-dose series)[facility]: 81-17-5051Cpxqv microalbumin profileDTaP,Tdap,Td Vaccine (1 - Tdap) [facility]: 00-45-8739Cgziqz PCP Team Chronic Disease VisitAnnual PCP Team Chronic Disease VisitOur Lady of Mercy Hospitaltart: 36-20-1130Ovledmo Screening Anxiety ScreeningOur Lady of Mercy Hospitaltart: 97-18-3124KL Controlled (<130/80)BP Controlled (<130/80)[facility]: 98-13-4197Litkhagbiv Screening Depression ScreeningOur Lady of Mercy Hospitaltart: 00-64-7957Drxpnjvjp C screening Hepatitis C ScreeningOur [facility] of Mercy Hospitalt[facility]: 10-73-6343KHB screeningHIV Screening [facility] End: 98-20-3390RI Abdomen and Pelvis W contrast IVCT ABD/PEL W IVCON Radiology Routine Malignant neoplasm of ascending colon (HCC) 1 Occurrences starting 05/25/2024 until 06/24/2025[facility] ClinicComment on above:1 Occurrences starting 05/25/2024 until 06/24/2025T Abdomen and Pelvis W contrast IVCT ABD/PEL W IVCON Radiology Routine Malignant neoplasm of ascending colon (HCC) 06/02/2024 9:41 AMESTSt[facility] Work Phone: End: 60-61-1961DJ Chest W contrast IVCT CHEST W IVCON Radiology Routine Malignant neoplasm of ascending colon (HCC) 1 Occurrences starting 05/25/2024 until 06/24/2025[facility] ClinicComment on above:1 Occurrences starting 05/25/2024 until 06/24/2025T Chest W contrast IVCT CHEST W IVCON Radiology Routine Malignant neoplasm of ascending colon (HCC) 06/02/2024 9:41 AM EST [facility] Work Phone: Comment on above:Ordered: 06/08/2024Laps colectomy prtl w/rmvl terminal ileumLAPAROSCOPY COLECTOMY, PARTIAL, W/ REMOVAL TERMINAL ILEUM W/ ILEOCOLOSTOMY Malignant neoplasm of ascending colon (HCC)FV OR Immunizations Immunization DateImmunizationNotesCare QfkhsgoiRkbriler84-40-6733JLQU-HkJ-5 (COVID-19) mRNA-1273 vaccineMichael NILL [phone]-FsjwpGood Samaritan Hospital [facility] [place] Comment on above:Result Comment: 2024-04-17: [id number]-OzS-8 (COVID- 19) mRNA-1273 vaccineMichael NILL [phone]-RlylnGood Samaritan Hospital [facility] [place] Comment on above:Result Comment: 2024-04-17: [id number], injectable, quadrivalent, preservative freeAbdias Evans MD Work Phone: [facility] RehabilitationQfffjk07-83-4189edqmfzdqx virus vaccine, unspecified formulationDonis Carias MD Work Phone: [facility] Payers DatePayer CategoryPayerPolicy [id number] Health [id number] MMO SUPERMED PPO [id number] 2023-Present [phone] [address] [place] [address] [id number] 2.0.1.454666.3.57[id number] 2.840.1.774511.3.57[id number] 2.840.1.503448.3.57[id number] 2.840.1.861751.3.57[id number] 2.840.1.441593.3.57[id number] 2.16840.1.783739.3.579.[id number] 2.16840.1.884747.3.579.[id number] 2.16840.1.802796.3.579.[id number] 2.16840.1.995551.3.57[id number] 2.16840.1.138173.3.579.2.50210-69-0015Yuvz-uxt43108321746-91-7452Pbxvguk [id number] /[id number] [id number]-c65e-36q9-5m52-46ij6fpz4ly2 [id number] 2.16.840.1.0[id number] 2.16.840.1.182[id number] 2.16.840.1.178154.3.579.2.531 [id number] 2.16.840.1.884319.3.579.2.531 Social History DateTypeDetailFacilityTobacco smoking status NHISUnknown if ever smokedSelect Medical [facility] Work Phone: Start: 05-02-6542Zeq Assigned At [facility]: 04-25-2024 End: 81-13-0977Barhpex smoking statusNever smoked tobacco (finding)[facility] Surgery [place]Start: 69-41-7937Dcedwmy smoking status Smokeless tobacco user within last 30 daysGrand Lake Joint [facility] WestueStart: 05-25-2024 End: 66-82-4300Lyr Assigned At [facility]: 05-25-2024 End: 56-95-9952Eqdyysj use and exposureUser of smokeless tobaccoChildren'S Hospital For Rehabilitation History of tobacco useChews TobaccoOur Lady of Mercy Hospitaltart: 05-25-2024 End: 59-74-7562Svaxyqn of Social functionOur Lady of Mercy Hospitaltart: 14-01-1781Ndc assigned at birthNot on fileOur Lady of Mercy Hospitaltart: 06-08-2024 End: 23-03-0725Ftfjqgwwr beverage intakeEx-drinker (finding)[facility] RehabilitationHa the electric, gas, oil, or water company threatened to shut off services in your home in past 12MoNoClHocking Valley Community Hospital(I/We) worried whether (my/our) food would run out before (I/we) got money to buy more.Never trueCleveland ClinicHistory of tobacco usePassive smokerOur Lady of Mercy Hospitalexual OrientationGood Samaritan Hospital Surgery [place] Start: 09-27-2856UjgRacr (finding)[facility] Functional Status VxqpJxtiwdhzopUmuvdlHwwnbraf79-48-1973Grgfsjlpxo StatusN/[facility] Icgjsodi46-58-5415Vcztvphpaa StatusN/[facility]01-31-2025Are you deaf, or do you have serious difficulty hearingNo 06/23/2024 10:06 AM Jessica Urban RN [facility]01-31-2025Are you blind, or do you have serious difficulty seeing, even when wearing glassesNo 06/23/2024 10:06 AM Jessica Urban RN [facility]01-31-2025Do you have serious difficulty walking or climbing stairsNo 06/23/2024 10:06 AM Jessica Urban RN [facility] 87-10-3923Kt you have difficulty dressing or bathingNo 06/23/2024 10:06 AM Jessica Urban RN [facility] CenterPcdydp32-57-9439Kvzclkn of a physical, mental, or emotional condition, do you have difficulty doing errands alone such as visiting a physician's office or shoppingNo 06/23/2024 10:06 AM Jessica Urban RN NoCGalion HospitalBcwmwn03-03-8017Uljrbtwdlq StatusN/[facility] Mental Status TlucZiizaloqciHcncfsNusiiuab59-93-7661Zpnesax of a physical, mental, or emotional condition, do you have serious difficulty concentrating, remembering, or making decisionsNo 06/23/2024 10:06 AM Jessica Urban RN [facility] Clinical Notes 04-25-2024 to 01-30-2025 Note Date & BdzpVpddEzsrcteu48-61-4810 Evaluation note* Diagnosis Onset Date Resolution Status Admit Date Viral URI acuteSeptember 2024 5:55pm [facility] Work Phone: 1(838) 244-102808-21-2025 Instructions* Patient Instructions* Donis Carias MD - [...] out to our office. documented in this encounterChildren'S Hospital For Rehabilitation08-21-2025 History of Present illness Narrative* Donis Carias MD - 01/11/2025 1:00 PM EDT COLORECTAL SURGERY CLINIC NOTE January 11, 2025 Piper Rodríguez 54 year old Recording using ambient [employer] software for draft documentation of the visit was discussed with the patient/authorized employment program representative; all questions welcomed and answered. Patient/authorized employment program representative agreed to proceed Chief Complaint: abdominal [...] Colonoscopy 06/03/2018 - Dr Hedrick @ [facility] Scan on 05/15/2024 9:54 AM by Be Cloud: [facility]- Operative Report 06/03/18 Colonoscopy 05/10/24 - Dr. Hedrick @ [facility] Scan on 05/16/2024 9:34 AM by Norma Magallanes: [facility] operative note (path pending) [id number] Pathology Scan on 05/22/2024 8:26 AM by Be Cloud: [facility]-Surgical Pathology Report 05/11/24 COLON, Biopsy, Cecum: [...] 2.5 View External Labs - Chemistry [ID [id number]] Surveillance CT C A P on 09/26/2024 at [facility] -images uploaded into Realeyes 3D -no evidence of recurrence in chest, abdomen, pelvis Scan on 10/06/2024 10:52 AM by Dat Brown: [facility] - CT Scan, 09/26/24 Assessment Assessment [...] Drug use: Not Currently documented in this encounterChildren'S Hospital For Rehabilitation08-21-2025 NoteHNO ID: [id number] Author: DONIS CARIAS MD Service: ? Author Type: Physician Type: Progress Notes Filed: 01/11/2025 13:34 Note Text: COLORECTAL SURGERY CLINIC NOTE January 11, 2025 Piper Rodríguez 54 year old Recording using Lux[employer] software for draft documentation of the visit was discussed with the patient/authorized employment program representative; all questions welcomed and answered. Patient/authorized employment program representative agreed to proceed Chief Complaint: abdominal [...] Colonoscopy 06/03/2018 - Dr Hedrick @ [facility] Scan on 05/15/2024 9:54 AM by Be Cloud: [facility]- Operative Report 06/03/18 Colonoscopy 05/10/24 - Dr. Hedrick @ [facility] Scan on 05/16/2024 9:34 AM by Norma Magallanes: [facility] operative note (path pending) [id number] Pathology Scan on 05/22/2024 8:26 AM by Be Cloud: [facility]-Surgical Pathology Report 05/11/24 COLON, Biopsy, Cecum: [...] Omentum with no evid (more content not included)...[facility] 12-27-2024 NoteGeneral Surgery Office/Clinic Note Chief Complaint consultation for port removal HPI Staff Presents to discuss removal of Ftsril-l-ptjl. Port placed 06/2024 for chemotherapy due to [...] vaccine 08/22/2020 Recorded 2023- (more content not included)...[facility] HospitalComment on above:Result Comment: Electronically Signed By: FLORIDALMA PATEL, Jone Bell\Date and Time Signed: 12/27/24 14:47 [id number] Instructions* Patient Instructions* Donis Carias MD - [...] please contact our office. documented in this encounterChildren'S Hospital For Rehabilitation06-03-2025 History of Present illness Narrative* Donis Carias MD - 10/24/2024 10:00 AM EDT COLORECTAL SURGERY CLINIC NOTE Recording using [employer] software for draft documentation of the visit was discussed with the patient/authorized employment program representative; all questions welcomed and answered. 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 He underwent evaluation by a sawdust drier, including an echocardiogram, which was reportedly normal. [...] defect Colonoscopy 06/03/2018 - Dr Hedrick @ [facility] Scan on 05/15/2024 9:54 AM by Be Cloud: [facility]- Operative Report 06/03/18 Colonoscopy 05/10/24 - Dr. Hedrick @ [facility] Scan on 05/16/2024 9:34 AM by Norma Magallanes: [facility] operative note (path pending) [id number] Pathology Scan on 05/22/2024 8:26 AM by Be Cloud: [facility]-Surgical Pathology Report 05/11/24 COLON, Biopsy, Cecum: [...] 2.5 View External Labs - Chemistry [ID [id number]] Surveillance CT C A P on 09/26/2024 at [facility] -images uploaded into Re[employer] 3D -no evidence of recurrence in chest, abdomen, pelvis Scan on 10/06/2024 10:52 AM by Dat Brown: [facility] - CT Scan, 09/26/24 Assessment Assessment [...] 2025. Patient to schedule with GI at [facility]. RTC prn Medical Decision Making: Data Reviewed: [...] Carias MD Colorectal Surgery documented in this encounterChildren'S Hospital For Rehabilitation06-03-2025 NoteHNO ID: [id number] Author: DONIS CARIAS MD Service: ? Author Type: Physician Type: Progress Notes Filed: 10/24/2024 10:19 Note Text: COLORECTAL SURGERY CLINIC NOTE Recording using [employer] software for draft documentation of the visit was discussed with the patient/authorized employment program representative; all questions welcomed and answered. 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 He underwent evaluation by a sawdust drier, including an echocardiogram, which was reportedly normal. [...] defect Colonoscopy 06/03/2018 - Dr Hedrick @ [facility] Scan on 05/15/2024 9:54 AM by Be Cloud: [facility]- Operative Report 06/03/18 Colonoscopy 05/10/24 - Dr. Hedrick @ [facility] Scan on 05/16/2024 9:34 AM by Norma Magallanes: [facility] operative note (path pending) [id number] Pathology Scan on 05/22/2024 8:26 AM by Be Cloud: [facility]-Surgical Pathology Report 05/11/24 COLON, Biopsy, Cecum: COLONIC TISSUE WITH INVASIVE ADENOCARCINOMA, MODERATELY DIFFERENTIATED, ULCERATION NOTED 2. COLON, Biopsy, Sigmoid: LARGE TUBULAR ADENOMA (>1 CM), NEGATIVE FOR HIGH GRADE DYSPLASIA, AREAS SHOWING CAUTERY ARTIFACT ARE POSITIVE FOR ADENOMATOUS GLANDS 3. COLON, Biopsy, Descending: TU (more content not included)...[facility]05-19-2025 NoteHNO ID: [id number] Author: TORI GANDHI RN Service: ? Author Type: Registered Nurse Type: Progress Notes Filed: 10/09/2024 12:43 Note Text: Summary: [facility] Research Pre-Screening (NRG-GI008) Piper Rodríguez was reviewed for potential clinical trial enrollment on [facility] #NRG-GI008 by the [facility] on 10/09/24. Per initial review, patient has disease type Colon cancer, stage IIIB and appears to be not eligible based on > 60 days from surgery and patient has already started treatment. Requesting green party notified. No Study tasks were completed as a result of this initial review. АЛЕКСАНДР Caldera, RN Research Nurse Coordinator cSt. [facility]05-19-2025 History of Present illness Narrative* Tori Gandhi RN - 10/09/2024 12:40 PM EDTSummary: [facility] Research Pre-Screening (NRG-GI008) Piper Marychuy Juan was reviewed for potential clinical trial enrollment on [facility] #NRG- GI008 by the [facility] on 10/09/24. Per initial review, patient has disease type Colon cancer, stage IIIB and appears to be not eligible based on > 60 days from surgery and patient has already started treatment. Requesting green party notified. No Study tasks were completed as a result of this initial review. АЛЕКСАНДР Caldera, RN Research Nurse Coordinator documented in this encounterChildren'S Hospital For Rehabilitation05-07-2025 NoteCardiac Electrophysiology Consultation Reason for Consult: Consideration of cardiac monitoring in the setting of chemotherapy/oxaliplatin Referring Plywood Stock Grader/PCP: No ref. provider found HPI: Piper is [...] Jones MD, ScM, Msc Cardiac Electrophysiology Email: [email or web address]02-14-2025 NoteHNO ID: [id number] Author: MAYLIN CONTE APRN.ONLINE CONTENT COORDINATOR Service: ? Author Type: Nurse Practitioner Type: Progress Notes Filed: 07/07/2024 09:33 Note Text: COLORECTAL SURGERY July 07, 2024 Piper Rodríguez 54 year old This consult was requested by Dr. Carias and my final recommendations will be communicated to the requesting health care provider by way of the shared medical record for internal providers or letter via the [employer] for external providers. Chief Complaint: [...] prescribed. -continue probiotics fo (more content not included)...[facility] 07-07-2024 History of Present illness Narrative* 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, MARKO.ONLINE CONTENT COORDINATOR - 07/07/2024 9:04 AM EST COLORECTAL SURGERY July 07, 2024 Piper Rodríguez 54 year old This consult was requested by Dr. Carias and my final recommendations will be communicated to [facility] care provider by way of the shared medical record for internal providers or letter via the [employer] for external providers. Chief Complaint: [...] treatment plan: johann Conte APRN.CNP Colorectal Surgery * Varinder Phillips MA - [...] Temperature: No Drains: No documented in this encounterChildren'S Hospital For Rehabilitation02-14-2025 NoteHNO ID: [id number] Author: VARINDER PHILLIPS MA Service: ? Author Type: Last Cleaner Type: Progress Notes Filed: 07/07/2024 09:33 Note Text: What is the reason for your visit today? Post op follow up for staple removal Who is your referring physician? Are you having poor oral intake? NO Have you had unintentional weight loss of 15 lbs/7 Kg in the last 3-6 months? YES Bowels: regular Wound: clean AND dry Temperature: No Drains: [facility]02-07-2025 Telephone encounter Note* Telephone Encounter - Maria Luisa Montes - 06/30/2024 11:31 AM EST All appointments on 07/12/24 have been canceled Maria Luisa Montes PSS [facility]02-07-2025 Miscellaneous Notes* Telephone Encounter - Maria Luisa Montes - 06/30/2024 11:31 AM EST All appointments on 07/12/24 have been canceled Maria Luisa Montes PSS * Telephone Encounter - Chelle Willis RN - 06/30/2024 10:23 AM EST Voicemail received from pt's stating pt will be going to [place] to see their oncologist, anddoesn't wish to follow up here. Please cancel appointments on 07/12. Call placed to to further assess. Message left requesting her to call our office back. Thanks Chelle Willis RN documented in this encounterChildren'S Hospital For Rehabilitation02-07-2025 Telephone encounter Note * Telephone Encounter - Chelle Willis RN - 06/30/2024 10:23 AM EST Voicemail received from pt's stating pt will be going to [place] to see their oncologist, anddoesn't wish to follow up here. Please cancel appointments on 07/12. Call placed to to further assess. Message left requesting her to call our office back. Thanks Chelle Willis RN [facility] Work Phone: 1(249) 971-577202-06-2025 Telephone encounter Note* Telephone Encounter - Chelle Willis RN - 06/29/2024 12:38 PM EST Pt will be in for education tomorrow. Please sign pending orders. Thanks Chelle Willis RN [facility]02-06-2025 Miscellaneous Notes* Telephone Encounter - Chelle Willis RN - 06/29/2024 12:38 PM EST Pt will be in for education tomorrow. Please sign pending orders. Thanks Chelle Willis RN documented in this encounterChildren'S Hospital For Rehabilitation02-06-2025 NoteHNO ID: [id number] Author: CAMRYN BEAULIEU, Research Coordinator Service: ? Author Type: Research Type: Progress Notes Filed: 06/29/2024 08:26 Note Text: Summary: [facility] Research Pre-Screening (IRB: [id number]) Piper Rodríguez was reviewed for potential clinical trial enrollment on [facility] #NRG-GI008 by the [facility] group on 06/29/24. Per initial review, patient has disease type Stage III CRC and appears to be preliminarily eligible and further testing/procedures required to determine final eligibility. Requesting green party notified. No Study tasks were completed as a result of this initial review. Camryn Beaulieu Research CoordinatorPlunkett Memorial [id number] History of Present illness Narrative* Camryn Beaulieu Research Coordinator - 06/29/2024 8:14 AM ESTSummary: [facility] Research Pre-Screening (IRB: [id number]) Piper Rodríguez was reviewed for potential clinical trial enrollment on [facility] #NRG- GI008 by the [facility] group on 06/29/24. Per initial review, patient has disease type Stage III CRC and appears to be preliminarily eligibleand further testing/procedures required to determine final eligibility. Requesting green party notified. No Study tasks were completed as a result of this initial review. Camryn Beaulieu Research Coordinator documented in this encounterChildren'S Hospital For Rehabilitation02-06-2025 NoteHNO ID: [id number] Author: MAYLIN CONTE APRN.ONLINE CONTENT COORDINATOR Service: ? Author Type: Nurse Practitioner Type: Progress Notes Filed: 06/29/2024 08:29 Note Text: [facility] Multidisciplinary GI Tumor Board Primary Disease: ascending [...] negative for invasive carcinoma Clinical Pathologic Stage: [id number] stage IIIB Recommendations: MMR studies pending. Referral [...] risks and alternatives to the various treatment optionsCoshocton Regional Medical Center02-05-2025 NoteGeneral Surgery Office/Clinic Note Chief Complaint consultation for port insertion HPI Staff 54 year old male presents on consultation from Dr. Esteves for port placement; now seeing Dr. Bragg at [facility]. Patient with metastatic colon adenocarcinoma. Right colectomy completed 06/14/24. History of Present Illness 54 yo male recently diagnosed with cecal adenocarcinoma, s/p LS right colectomy at [facility] 06/14/24, stage IIIb adenocarcinoma; had wound dehiscence requiring fascial closure 06/21/24; now seeing Dr. Bragg at [facility]; referred for port placement; no previous [...] (C18.9: Malignant neoplasm of colon, unspecified) plan vpeqhy-w-vvwu insertion under anesthesia, informed consent obtained. Ancef [...] (COVID-19) mRNA-1273 vaccine 08/22/2020 Recorded 2024-04-17: TPV40 [facility] HospitalComment on above:Result Comment: Electronically Signed By: FLORIDALMA PATEL, Jone Bell\Date and Time Signed: 06/28/24 16:11 EST 06-28-2024 Note* Addendum Note - Joseph Bragg MD - 06/28/2024 11:30 AM ESTAddended by: JOSEPH BRAGG on: 06/28/2024 11:30 AM Modules accepted: Orders [facility]02-05-2025 Miscellaneous Notes* Addendum Note - Joseph Bragg MD - 06/28/2024 11:30 AM ESTAddended by: JOSEPH BRAGG on: 06/28/2024 11:30 AM Modules accepted: Orders documented in this encounterChildren'S Hospital For Rehabilitation02-05-2025 Instructions* Patient Instructions* Joseph Bragg MD - 06/28/2024 11:13 AM EST Ordered port placement Chemo teach for FOLFOX F/u in 2 weeks documented in this encounterChildren'S Hospital For Rehabilitation02-05-2025 History of Present illness Narrative* Joseph Bragg MD - 06/28/2024 11:00 AM EST Images from the original note were not included. PATIENT NAME: [facility] NO.: [id number] ATTENDING PHYSICIAN: Joseph Bragg MD DATE OF SERVICE: June 28, [address] Donis Carias [id number] [facility] [id number] thank you for referring Piper Rodríguez for [...] Range Status 06/23/2024 12.7 % Final Abs [place] Date Value Ref Range Status 06/23/2024 0.84 [...] in [address] Donis Carias [id number] [facility] [address] thank you for allowing me to participate in Piper Rodríguez care, if there are any questions or concerns please do not hesitate to contact me at the number below. I spent a total of 60 minutes on the date of the service which included preparing to see the patient, rckr-er-wkmh patient care, completing clinical documentation, obtaining and/or reviewing separately obtained history, performing a medically appropriate examination, counseling and educating the pat ient/family/caregiver, ordering medications, tests, or procedures, communicating with other HCPs (not separately reported), independently interpreting results (not separately reported), communicatingresults to the patient/family/caregiver, and care coordination (not separately reported). Joseph Bragg MD. Hematology/Medical Oncology [place] [phone] CC: documented in this encounterChildren'S Hospital For Rehabilitation02-05-2025 NoteHNO ID: [id number] Author: JOSEPH BRAGG MD Service: ? Author Type: Physician Type: Progress Notes Filed: 06/28/2024 11:29 Note Text: PATIENT NAME: Piper Rodríguez [facility] NO.: [id number] ATTENDING PHYSICIAN: Joseph Bragg MD DATE OF SERVICE: June 28, [address] Donis Carias [id number] [facility] [address] thank you for referring Piper Rodríguez for [...] pT3 pN1b. [employer] Works in a [employer]. Grand mother has colon cancer. No smoking. [...] No palpable breast johnny (more content not included)...[facility]01-31-2025 NoteHNO ID: [id number] Author: ALONDRA GONZALEZ LSW Service: Care Management Author Type: Tobacco Weigher Type: Care Mgt Initial Assessment Filed: 06/23/2024 10:12 Note Text: Summary: High Risk Readmission CARE MANAGEMENT: ASSESSMENT AND DISCHARGE PLAN SERVICE DATE: June 23, 2024 SERVICE TIME: 9:30 PCP: Gen Peña MD Primary Contact: Extended Emergency Contact Information Primary Emergency Contact: Lisa Rodríguez Address: [address] [place], [place] [address] [place] [address] Mobile Relation: Spouse Preferred language: KOREAN Salvage Mend Worker needed? No Admission Status: Inpatient Insurance Provider: MMO SUPERMED PPO Discharge Planning requested by: Per Department Practice Potential Transition Plans No Services Indicated Advance Directives Current Advance Directive: None Private Tutors And Teachers Attempted to Assist with AD Completion: Yes Action: Education Provided Current Living Arrangements and Support Lives with: Spouse/significant other Type of Residence: Private Residence (House) Support: Spouse/significant other How do you manage to accomplish the following: Independent: Ambulation;Transportation to appointments/community;Bathe/Shower;Dress;Meals/Meal Prep;Going to the bathroom;Medication Management Current Services/Equipment Current Post-Acute Service(s): None Discharge Planning Patient Goal(s): General wellness [place] Explained: [place] of Choice Given: No Reason Not Given: [...] : No HCPOA paperwok on file within [employer] and verified to be current as of date/time of this note Legal Next of Kin Hierarchy per [place] Revised Code: Legal Spouse Lisa [phone] Majority of Adult Children (consensus if possible) Parents Majority of Adult Siblings (consensus if possible) Nearest Blood Relative Alondra REID Gonzalez June 23, 2024 HIGH RISK READMISSION NOTE: HAS PATIENT BEEN READMITTED WITHIN THE PAST 7 DAYS?: yes 30-DAY READMISSION RISK (%) of 40 OR ABOVE?: no READMISSION SCORE: unknown SDND QUESTIONS REVIEWED WITH PATIENT?: yes DATE OF LAST ADMISSION: 06/14-1/24 PT STATED REASON FOR ADMISSION: incision shola popped out PATIENT GOALS: go home INTERVENTIONS IMPLEMENTED TO PREVENT READMISSION: NA, patient had surgery PCP OR F/U VISIT ARRANGED ? Yes IF YES, DATE AND PROVIDER: Friday July 05, 2024 10:40 AM with colorectal DISCHARGE PLAN: no skilled needs SIGNATURE: REID Prabhakar PATIENT NAME: Piper Rodríguez DATE: June 23, 2024 TIME: 10:08 [facility]01-31-2025 NoteHNO ID: [id number] Author: DONIS CARIAS MD Service: Colorectal Author Type: Physician Type: Progress Notes Filed: 06/23/2024 13:40 Note Text: Documentation Query Please specify a diagnosis associated with the Clinical Indicators for this patient Obesity class 2 This document will become part of the patient's medical record.[facility] 06-22-2024 NoteHNO ID: [id number] Author: MARY WORRELL RN Service: Nursing Author Type: Registered Nurse Type: Nursing Progress Note Filed: 06/22/2024 15:45 Note Text: 1545 report called to AR.[facility] HospitalNyoylska76-64-5763 NoteHNO ID: [id number] Author: LASHONDA DELGADO MD Service: Colorectal Author Type: Resident Type: Progress Notes Filed: 06/22/2024 08:11 Note Text: COLORECTAL SURGERY PROGRESS NOTE Piper Rodríguez [id number] Patient Active Hospital Problem List: Perioperative dehiscence [...] and Airways Line Duration Peripheral 06/21/24 1500 [facility] Short Left Forearm 20 Gauge [...] Delgado MD General Surgery, PGY2 Please contact [phone] during the days for any questions. For nights and weekends, please contact [phone].[facility] HospitalJgbinhcl89-28-8596 NoteHNO ID: [id number] Author: JULIOCESAR ENRIQUE APRN.THROUGH OPERATOR Service: Anesthesiology Author Type: Nurse Financial Services Agent Type: Anesthesia Procedure Notes Filed: 06/21/2024 16:11 Note Text: ANESTHESIOLOGY PROCEDURE NOTE Airway General Information Procedure Start Time/Medication Administration: 06/21/2024 3:58 PM Procedure End Time: 06/21/2024 3:58 PM Patient location during procedure: OR Timeout Performed Pre-procedure: timeout performed Consent Obtained: Yes 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, care operations team leader and patient Staffing THROUGH OPERATOR: Juliocesar Enrique APRN.THROUGH OPERATOR Performed by: EVIN Indications and Patient Condition [...] no Airway not difficult SIGNATURE: Juliocesar Enrique APRN.THROUGH OPERATOR PATIENT NAME: Piper Rodríguez DATE: June 21, 2024 TIME: 4:10 PM CSN: [id number] Telephone encounter Note * Telephone Encounter - [...] for his appointment tomorrow vs going to [place] ED. Ultimately, he thinks he will go to [place] ED. [facility]01-29-2025 Miscellaneous Notes* Telephone Encounter - Jocelyn Cantrell [...] for his appointment tomorrow vs going to [place] ED. Ultimately, he thinks he will go to [place] ED. [facility] Telephone encounter Note * Telephone Encounter - Jocelyn Cantrell RN - 06/20/2024 3:15 PM EST Returned call. Spoke with his . She said they went to their local ED. It was his bigger incision that opened. The ED doctor was asking them for Dr. Carias's contact information so he can communicate with her. Provided info to physician [facility]01-28-2025 Miscellaneous Notes* Telephone Encounter - Jocelyn Cantrell [...] they should go to local ER CB# [phone] documented in this encounterChildren[facility]01-28-2025 Telephone encounter Note * Telephone Encounter - Maura Casiano - 06/20/2024 3:02 PM EST Patient calling concerned about surgical incision. She states it has opened up. Asking to speak to nurse to find out if they should go to local ER CB# [phone] [facility]01-27-2025 Telephone encounter Note* Telephone Encounter - Jocelyn Cantrell RN - 06/19/2024 1:47 PM EST Returned call. He would like to be able to return to the office for a few hours every other day. Heasked for a note to allow him to do this. His job does not require any physical activity. Note sent through My Chart. [facility]01-27-2025 Miscellaneous Notes* Telephone Encounter - Jocelyn Cantrell [...] and what hecan and cannot do CB# [phone] documented in this encounterChildren[facility]01-27-2025 Telephone encounter Note * Telephone Encounter - Maura Casiano - 06/19/2024 1:27 PM EST Patient had surgery on 06/14/24. He is asking to speak to a nurse about his restrictions and what hecan and cannot do # [phone] [facility]01-24-2025 NoteHNO ID: [id number] Author: DONIS CARIAS MD Service: Colorectal Author [...] will become part of the patient's medical record.[facility] 06-16-2024 NoteHNO ID: [id number] Author: DAVON WATSON MD Service: Colorectal Author [...] PGY-6 Colorectal Surgery Resident Blue Team Pager: [phone] General Surgery Colorectal Surgery On-Call Pager: [phone](Weekends, Weekdays 6PM-6AM)` SUBJECTIVE: No acute issues overnight. [...] 0659 06/16/24 07 - 06/17/24 0659 Shift [id number] 24 Hour Total [id number] 4568-2717 5050-4215 24 Hour Total INTAKE Shift Total OUTPUT [...] CREAT 1.25* BUN 19 GLUC 105* CA 8.9[facility] HospitalRfwekchd37-30-4540 NoteHNO ID: [id number] Author: GELY AKINS RN Service: Care Management Author Type: Registered Nurse Type: Care Mgt Initial Assessment Filed: 06/15/2024 11:22 Note Text: CARE MANAGEMENT: ASSESSMENT AND DISCHARGE PLAN SERVICE DATE: June 15, 2024 SERVICE TIME: 11:00am PCP: Gen Peña MD Primary Contact: Extended Emergency Contact Information Primary Emergency Contact: Lisa Rodríguez Address: [address] [place] [address] [facility] Mobile Relation: Spouse Preferred language: KOREAN Salvage Mend Worker needed? No Admission Status: Inpatient Insurance Provider: MMO SUPERMED PPO Discharge Planning requested by: Per Department Practice Potential Transition Plans Home Advance Directives Current Advance Directive: None Private Tutors And Teachers Attempted to Assist with AD Completion: Yes [...] home, Independent living, Be able to drive [place] Choice Explained: [place] of Choice Given: No Reason Not Given: [...] soon. Pt lives with spouse. 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 Pt reports he has good support system. Denies needs. No skilled needs identified. Spouse will transport home at discharge. CM remains available if needs arise. SIGNATURE: Gely Akins RN PATIENT NAME: Piper Rodríguez DATE: June 15, 2024 TIME: 11:20 [facility]01-23-2025 NoteHNO ID: [id number] Author: LASHONDA DELGADO MD Service: Colorectal Author [...] 06/15/2024 COLORECTAL SURGERY PROGRESS NOTE Piper Rodríguez [id number] Patient Active Hospital Problem List: Malignant neoplasm [...] and Airways Line Duration Peripheral 06/14/24 0816 [facility] Left Antecubital 20 Gauge 1 [...] Delgado MD General Surgery, PGY2 Please contact [phone] during the days for any questions. For nights and weekends, please contact [phone].[facility] HospitalIebgtofm45-54-0121 NoteHNO ID: [id number] Author: ANNABEL THACKER APRN.THROUGH OPERATOR Service: Nursing Author Type: Nurse Financial Services Agent Type: Anesthesia Procedure Notes Filed: 06/14/2024 09:22 Note Text: ANESTHESIOLOGY PROCEDURE NOTE PIV General Information Procedure Start Time/Medication Administration: 06/14/2024 9:02 AM Procedure End Time: 06/14/2024 9:02 AM Patient Location: OR Staffing THROUGH OPERATOR: Annabel Thacker APRN.THROUGH OPERATOR Performed by: EVIN Preparation Sterility Preparation: hand hygiene performed prior to procedure, surgical cap used, mask used, skin prep agent completely dried prior to procedure Site Prep: chlorhexidine Procedure Details Indication: need for IV access Needle Size/Type: 20 gauge angiocath Orientation: Right Location: Hand Imaging Guidance Used: No SIGNATURE: Annabel Thacker APRN.THROUGH OPERATOR PATIENT NAME: Piper Rodríguez DATE: June 14, 2024 TIME: 9:20 AM CSN: [id number] NoteHNO ID: [id number] Author: ANNABEL THACKER APRN.THROUGH OPERATOR Service: Nursing Author Type: Nurse Financial Services Agent Type: Anesthesia Procedure Notes Filed: 06/14/2024 09:20 Note Text: ANESTHESIOLOGY PROCEDURE NOTE Airway General Information Procedure Start Time/Medication Administration: 06/14/2024 8:59 AM Procedure End Time: 06/14/2024 8:59 AM Patient location during procedure: OR 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, care operations team leader and patient Staffing Anesthesiologist: Ila Mortensen MD THROUGH OPERATOR: Annabel Thacker APRN.THROUGH OPERATOR Performed by: EVIN Indications and Patient Condition [...] June 14, 2024 TIME: 9:19 AM CSN: [id number] Instructions* Patient Instructions* Aubrey Baer PA-C - 06/08/2024 8:55 AM EST PATIENT PREOPERATIVE INSTRUCTIONS Donis Carias MD has scheduled you for your procedure at this surgery center: [facility]: [phone] --[address] [address]. Please check in on the1st floor at [...] Procedures: - YOU MUST HAVE A RESPONSIBLE CLASSROOM ASSISTANT TAKE YOU HOME. A SUPERVISOR CENTRAL SUPPLY OR OIL PUMP STATION OPERATOR CHIEF CANNOT BE MADE A RESPONSIBLE CLASSROOM ASSISTANT. - We recommend that a responsible person [...] Advance Directive, please fax a copy to [phone] or email to for it to be [...] your chart that day documented in this encounterChildren'[facility]01-16-2025 History and physical note * Aubrey Baer [...] 5 (+SHERIE, unable to tolerate CPAP ) [id number] Score: Age: <65 Sex: male CHF history: No Hypertension history: Yes Stroke/TIA/thromboembolism history: No Vascular disease history: No Diabetes history: No [id number] Score: 1 ARISCAT Score: Age: 51-80 Preoperative [...] fevers. Neuro: No history of TIA's, stroke, NIGHT COURT MAGISTRATE tumor, impaired sensorium, hemiplegia, paraplegia or quadraplegia. [...] Piper Rodríguez DATE: 06/08/2024 TIME: 9:18 AM [facility]01-16-2025 History and physical note* Aubrey Baer PA-C [...] 5 (+SHERIE, unable to tolerate CPAP ) [id number] Score: Age: <65 Sex: male CHF history: No Hypertension history: Yes Stroke/TIA/thromboembolism history: No Vascular disease history: No Diabetes history: No [id number] Score: 1 ARISCAT Score: Age: 51-80 Preoperative [...] fevers. Neuro: No history of TIA's, stroke, NIGHT COURT MAGISTRATE tumor, impaired sensorium, hemiplegia, paraplegia or quadraplegia. [...] 06/08/2024 TIME: 9:18 AM documented in this encounterChildren'S [facility]01-13-2025 Telephone encounter Note * Telephone Encounter - Donis Carias MD - 06/05/2024 12:[address] CAP reviewed with patient- no mets and will proceed with surgery as scheduled. Advised lifestylechanges for fatty liver and to follow up with PCP [facility]01-13-2025 Miscellaneous Notes* Telephone Encounter - Donis Carias MD - 06/05/2024 12:[address] CAP reviewed with patient- no mets and will proceed with surgery as scheduled. Advised lifestylechanges for fatty liver and to follow up with PCP documented in this encounterChildren'S Hospital [facility] Rehabilitation01-10-2025 History of Present illness Narrative* Evens Nelson, RT(R) - 06/02/2024 9:30 AM EST Radiology [...] PATIENT PRESENTS WITH AN IMPLANTABLE OR ATTACHED SAND SHOVELER: No RADIOLOGY DEPARTMENT: CT; Exam(s) Completed: Chest Abdomen Pelvis PERIPHERAL IV DATA: Site assessment: Clean,Dry and Intact, Site disposition Discontinued SIGNED BY: RT Rhys(Kervin) June 02, 2024 9:36 AM documented in this encounterChildren'S Hospital For Rehabilitation01-10-2025 NoteHNO ID: [id number] Author: EVENS NELSON RT(R) Service: Radiology Author [...] PATIENT PRESENTS WITH AN IMPLANTABLE OR ATTACHED SAND SHOVELER: No RADIOLOGY DEPARTMENT: CT; Exam(s) Completed: Chest Abdomen Pelvis PERIPHERAL IV DATA: Site assessment: Clean,Dry and Intact, Site disposition Discontinued SIGNED BY: MILADY Joiner) June 02, 2024 9:36 [facility]01-10-2025 Nurse Note* Abilio Tang RN - 06/02/2024 [...] DATE: June 02, 2024 TIME: 8:53 AM [facility]01-10-2025 Nurse Note* Abilio Tang RN - 06/02/2024 [...] 2024 TIME: 8:53 AM documented in this encounterChildren'S Hospital For Rehabilitation01-09-2025 Telephone encounter Note * Telephone Encounter - Jocelyn Cantrell RN - 06/01/2024 11:00 AM EST Spoke with patient. He was under the impression he could get his CT done in [place] and could havethe images sent to Dr. Carias. We had a long discussion about the process to make that happen andmy concerns that it would not be done in time to continue with his surgery on 06/14. He was agreeable to reschedule his CT at [place] on 06/02/24. He will get his lab work done tomorrow prior to his CT. [facility]01-09-2025 Miscellaneous Notes* Telephone Encounter - Jocelyn Cantrell RN - 06/01/2024 11:00 AM EST Spoke with patient. He was under the impression he could get his CT done in [place] and could havethe images sent to Dr. Carias. We had a long discussion about the process to make that happen andmy concerns that it would not be done in time to continue with his surgery on 06/14. He was agreeable to reschedule his CT at [place] on 06/02/24. He will get his lab work done tomorrow prior to his CT. * Telephone Encounter - Be Cloud - 06/01/2024 10:04 AM EST 06/01 Patient called, stated that he wanted to cancel CT that was for 06/02 due to distance to appointment. Stated that will go to [facility] to gert CT done. Was wondering if able to go to [place] for CT? documented in this encounterChildren'S [facility]01-09-2025 Telephone encounter Note * Telephone Encounter - Be Cloud - 06/01/2024 10:04 AM EST 06/01 Patient called, stated that he wanted to cancel CT that was for 06/02 due to distance to appointment. Stated that will go to [facility] to gert CT done. Was wondering if able to go to [place] for CT? [facility]01-02-2025 History of Present illness Narrative* Donis Carias MD - 05/25/2024 11:20 AM EST COLORECTAL SURGERY CLINIC NOTE May 25, 2024 Piper Rodríguez 54 year old This consult was requested by Dr. Hedrick and my final recommendations will be communicated to the requesting health care provider by way of the shared medical record for internal providers or letter via the [employer] for external providers. Chief Complaint: [...] Magallanes: Seth Castro operative note (path pending) [id number] Pathology Scan on 05/22/2024 8:26 AM by Be Cloud: [facility]-Surgical Pathology Report 05/11/24 COLON, Biopsy, Cecum: [...] and/or results with patient and his , lsia. Risk of morbidity, mortality and/or complications of treatment plan: yasmeen Carias MD Colorectal Surgery documented in this encounterChildren'S Hospital For Rehabilitation01-02-2025 NoteHNO ID: [id number] Author: DONIS CARIAS MD Service: ? Author Type: Physician Type: Progress Notes Filed: 05/25/2024 12:48 Note Text: COLORECTAL SURGERY CLINIC NOTE May 25, 2024 Piper Rodríguez 54 year old This consult was requested by Dr. Hedrick and my final recommendations will be communicated to the requesting health care provider by way of the shared medical record for internal providers or letter via the [employer] for external providers. Chief Complaint: [...] mass Colonoscopy 05/10/24 - Dr. Hedrick @ [facility] Scan on 05/16/2024 9:34 AM by Norma Magallanes: Seth Castro operative note (path pending) [id number] Pathology Scan on 05/22/2024 8:26 AM by Be Cloud: [facility]-Surgical Pathology Report 05/11/24 COLON, Biopsy, Cecum: COLONIC TISSUE WITH INVASIVE ADENOCARCINOMA, MODERATELY DIFFERENTIATED, ULCERATION NOTED 2. COLON, Biopsy, Sigmoid: LARGE TUBULAR ADENOMA (>1 CM), NEGATIVE FOR HIGH GRADE DYSPLASIA, AREAS SHOWING CAUTERY ARTIFACT ARE POSITIVE FOR ADENOMATOUS GLANDS 3. COLON, Biopsy, Descending: TUBULAR ADENOMA. NEGATIVE FOR HIGH GRADE DYSPLASIA Colonoscopy 06/03/2018 - Dr Hedrick @ [facility] Scan on 05/15/2024 9:54 AM by Be [...] mets or locally advanced, (more content not included)...[facility]12-03-2024 NoteGeneral Surgery Office/Clinic Note Chief Complaint consultation [...] Tabacco Tobacco Use:. Smokele (more content not included)...[facility] HospitalComment on above:Result Comment: Electronically Signed By: FLORIDALMA PATEL, Jone Bell\Date and Time Signed: 04/25/24 10:59 ESTEvaluation + Plan note No data available for this section [facility] General Surgery [place] Evaluation noteNo assessment information available [facility] Work Phone: Evaluation note* Diagnosis Malignant neoplasm of ascending colon (HCC)- Primary Malignant neoplasm of ascending colon documented in this encounter [facility]* Diagnosis Malignant neoplasm of ascending colon (HCC) Malignant neoplasm of ascending colon Malignant neoplasm of ascending colon (HCC) Malignant neoplasm of ascending colon documented in this encounter [facility]Eval[facility]* Diagnosis Pre-op evaluation- Primary Preoperative examination, [...] CPAP * Assessment & Plan Note - Aubrye Baer PA-C - 06/08/2024 9:16 AM EST [...] Assessment: BMI 38.78 documented in this encounter [facility]* Diagnosis Pre-op evaluation- Primary Preoperative examination, unspecified BMI 38.0-38.9,adult Body Mass Index 38.0-38.9, adult Smokeless tobacco use Tobacco use disorder SHERIE (obstructive sleep apnea) Obstructive sleep apnea (adult) (pediatric) Malignant neoplasm of ascending colon (HCC)- Primary Malignant neoplasm of ascending colon documented in this encounter [facility]* Diagnosis Pre-op evaluation- Primary Preoperative examination, unspecified BMI 38.0-38.9,adult Body Mass Index 38.0-38.9, adult Smokeless tobacco use Tobacco use disorder SHERIE (obstructive sleep apnea) Obstructive sleep apnea (adult) (pediatric) Malignant neoplasm of ascending colon (HCC) Malignant neoplasm of ascending colon documented in this encounter [facility]* Diagnosis Pre-op evaluation- Primary Preoperative examination, unspecified BMI 38.0-38.9,adult Body Mass Index 38.0-38.9, adult Smokeless tobacco use Tobacco use disorder SHERIE (obstructive sleep apnea) Obstructive sleep apnea (adult) (pediatric) Malignant neoplasm of ascending colon (HCC)- Primary Malignant neoplasm of ascending colon documented in this encounter [facility]* Diagnosis Pre-op evaluation- Primary Preoperative examination, unspecified BMI 38.0-38.9,adult Body Mass Index 38.0-38.9, adult Smokeless tobacco use Tobacco use disorder SHERIE (obstructive sleep apnea) Obstructive sleep apnea (adult) (pediatric) Follow-up examination after colorectal surgery- Primary Follow-up examination, following other surgery Encounter for staple removal Encounter for removal of sutures documented [facility]* Diagnosis Pre-op evaluation- Primary Preoperative examination, unspecified BMI 38.0-38.9,adult Body Mass Index 38.0-38.9, adult Smokeless tobacco use Tobacco use disorder SHERIE (obstructive sleep apnea) Obstructive sleep apnea (adult) (pediatric) Follow-up examination after colorectal surgery- Primary Follow-up examination, following other surgery History of colon cancer Personal history of malignant neoplasm of large intestine documented in this encounter [facility]* Diagnosis Pre-op evaluation- Primary Preoperative examination, unspecified BMI 38.0-38.9,adult Body Mass Index 38.0-38.9, adult Smokeless tobacco use Tobacco use disorder SHERIE (obstructive sleep apnea) Obstructive sleep apnea (adult) (pediatric) Incisional hernia, without obstruction or gangrene- Primary Incisional hernia without mention of obstruction or gangrene documented in this encounter [facility] Discharge instructions No data available for this section [facility] General Surgery [place] Progress note No data available for this section [facility] Surgery [place] Reason for referral (narrative)* Outpatient Procedure (Routine) - New RequestSpecialtyDiagnoses / ProceduresReferred By Contact [facility] Diagnoses Pre-op evaluation Procedures ECG COMPLETE ECG ROUTINE ECG W/LEAST 12 LDS W/I&R Aubrey Baer PA-C [address] [place] [address] [facility] [place] [address] [place] [address] Referral IDStatusReasonStart DateExpiration DateVisits RequestedVisits [id number] Request Auto-Generated Referral / [facility] for referral (narrative)No reason for referral information availableFulton County Health Center Work Phone: Summary Purpose Family History No [...] No September 13 12:27pm Reason for Referral SpecialtyDiagnoses / ProceduresReferred By ContactReferred To ContactOncology Diagnoses Malignant neoplasm of ascending colon (HCC) Procedures CONSULT TO ONCOLOGY OFFICE/OUTPATIENT [facility] [address] [place] [address] [place] [address] Referral IDStatusReasonStart DateExpiration DateVisits RequestedVisits [id number] PCP Requested Referral /[id number] / ProceduresReferred By ContactReferred To ContactCT IMAGING Diagnoses Malignant neoplasm of ascending colon (HCC) Procedures CT CHEST W IVCON DIAGNOSTIC COMPUTED TOMOGRAPHY THORAX W/[place] [address] [place] [address] Ct Imaging [place] [address] Referral IDStatusReasonStart DateExpiration DateVisits RequestedVisits [id number] Auto-Generated Referral /[id number] / ProceduresReferred By ContactReferred To ContactCT IMAGING Diagnoses Malignant neoplasm of ascending colon (HCC) Procedures CT ABD/PEL W IVCON CT ABD & PELVIS W/[place] [address] [place] [address] Ct Imaging [place] [address] Referral IDStatusReasonStart DateExpiration DateVisits RequestedVisits [id number] Auto-Generated Referral / Chief Complaint and Reason for Visit Chief [...] section and content) DATE CREATED AUTHOR 07/18/2022 [facility] DATE CREATED AUTHOR AUTHOR'S ORGANIZ ATION 07/01/2024 [facility] DATE CREATED AUTHOR AUTHOR'S ORGANIZ ATION 10/03/2024 [facility] DATE CREATED AUTHOR AUTHOR'S ORGANIZ ATION 12/28/2024 [facility] DATE CREATED AUTHOR AUTHOR'S ORGANIZ ATION 01/13/2025 [facility] DATE CREATED AUTHOR AUTHOR'S ORGANIZ ATION 02/25/2025 [facility] Care Teams (unrecognized sec tion and content) Team Status: Inactive Member Role Status Dates Gen Peña MD Attending Provider Active Sta rt: August 02, 2023 End: August 02, 2023 Team Status: Inactive Member Role Status Dates Kisha Esteves MD Attending Provider Active St art: September 13, 2023 End: September 13, 2023Team MemberRelationshipSpecialtyStart DateEnd Date Gen Peña MD [address] [place] [address] PCP - GeneralFamily Wuhldyew88/23/24 Jone Hedrick MD [address] [place] [address] [address] [place] [address] General Uyxnfdu96/23/24Team MemberRelationshipSpecialtyStart DateEnd Date Gen Peña MD [address] [place] [address] PCP - GeneralFamily Tuspirtx05/23/24 Jone Hedrick MD [address] [place] [address] General Ojkflft11/23/24Team MemberRelationshipSpecialtyStart DateEnd Date Gen Peña MD [address] [place] [address] PCP - GeneralFamily Gcoeevyh92/23/24 Jone Hedrick MD [address] [place] [address] General Rbzpjjb01/23/24Team MemberRelationshipSpecialtyStart DateEnd Gen Peña MD [address] [place] [address] PCP - GeneralFamily Njaxxzfr31/23/24 Jone Hedrick MD [address] [place] [address] General Edbgpxu70/23/24Team MemberRelationshipSpecialtyStart DateEnd Date Gen Peña MD [address] [place] [address] PCP - GeneralFamily Ibciooxe23/23/24 Jone Hedrick MD [address] [place] [address] General Nqvbgkp48/23/24Team MemberRelationshipSpecialtyStart DateEnd Gen Peña MD [address] [place] [address] PCP - GeneralFamily Ibnqnvey78/23/24 Jone Hedrick MD [address] [place] [address] General Mevgwij54/23/24Team MemberRelationshipSpecialtyStart DateEnd Date Gen Peña MD [address] [place] [address] PCP - GeneralFamily Tqjnaedf73/23/24 Jone Hedrick MD [address] [place] [address] General Gctkide64/23/24Team MemberRelationshipSpecialtyStart DateEnd Gen Peña MD [address] [place] [address] PCP - GeneralFamily Occqfbgj33/23/24 Jone Hedrick MD [address] [place] [address] General Aimecqg93/23/24Team MemberRelationshipSpecialtyStart DateEnd Gen Peña MD [address] [place] [address] PCP - GeneralFamily Roskoenv21/23/24 Jnoe Hedrick MD [address] [place] [address] General Ujeqxga86/23/24Te MemberRelationshipSpecialtyStart Date[facility] MD [address] [place] [address] PCP - GeneralFamily Oidqllwt63/23/24 Jone Hedrick MD [address] [place] [address] General Kqjdagm92/23/24Te MemberRelationshipSpecialtyStart [facility] Gen Peña MD [address] [place] [address] PCP - GeneralFamily Rmyhpgqq25/23/24 Jone Hedrick MD [address] [place] [address] General Onbulvc19/23/24Te MemberRelationshipSpecialtyStart [facility] Gen Peña MD [address] [place] [address] PCP - GeneralFamily Mjdgobid17/23/24 Jone Hedrick MD [address] [place] [address] General Cenmygc84/23/24 Chelle Willis, RN [address] [place] [address] Specialty Care CoordinatorHematology/Oncology06/29/24 Joseph Bragg MD [address] [place] [address] PhysicianHematology/Oncology06/29/24Te MemberRelationshipSpecialtyStart End [facility] Gen Peña MD [facility] [place] [address] PCP - GeneralFamily Asxhkpsi12/23/24 Jone Hedrick MD [address] [place] [address] General Ysmnswj83/23/24 Chelle Willis RN [address] [facility] [place] [address] Specialty Care CoordinatorHematology/Oncology06/29/24 Joseph Bragg MD [address] [facility] [place] [address] PhysicianHematology/Oncology06/29/24Te MemberRelationshipSpecialtyStart DateEnd Gen Peña MD [facility] [place] [address] PCP - GeneralFamily Vndjzfhx08/23/24 Jone Hedrick MD [address] [facility] [address] [place] [address] General Cdqlafg51/23/24 Chelle Willis RN [address] [facility] [place] [address] Specialty Care CoordinatorHematology/Oncology06/29/24 Joseph Bragg MD [address] [facility] [place] [address] PhysicianHematology/Oncology06/29/24Team MemberRelationshipSpecialtyStart DateEnd Date Gen Peña MD [address] [place] [address] [facility] Xykwtqkz51/23/24 Jone Hedrick MD [address] [place] [address] General Aqiehpi92/23/24 Chelle Willis RN [address] [facility] [place] [address] Specialty Care CoordinatorHematology/Oncology06/29/24 Joseph Bragg MD [address] [facility] [place] [address] PhysicianHematology/Oncology06/29/24Te MemberRelationshipSpecialtyStart DateEnd Date Gen Peña MD [address] [place] [address] PCP - GeneralFamily Hiyivntl94/23/24 Jone Hedrick MD [address] [place] [address] General Tnpdgja61/23/24 Chelle Willis RN [address] [facility] [place] [address] Specialty Care CoordinatorHematology/Oncology06/29/24 Joseph Bragg MD [address] [facility] [place] [address] PhysicianHematology/Oncology06/29/24Te MemberRelationshipSpecialtyStart DateEnd [facility] Gen Peña MD [address] [place] [address] PCP - GeneralFamily Xntgdimi85/23/24 Jone Hedrick MD [address] [place] [address] General Ojstkiw48/23/24 Chelle Willis RN [address] [facility] [place] [address] Specialty Care CoordinatorHematology/Oncology06/29/24 Joseph Bragg MD [address] [place] [address] PhysicianHematology/Oncology06/29/24Team MemberRelationshipSpecialtyStart DateEnd Date Gen Peña MD [address] [place] [address] PCP - GeneralFamily Siuvzimy76/23/24 Jone Hedrick MD [address] [place] [address] General Bihutef34/23/24 Chelle Willis RN [address] [facility] [place] [address] Specialty Care CoordinatorHematology/Oncology06/29/24 Joseph Bragg MD [address] [place] [address] PhysicianHematology/Oncology06/29/24 Team Status: Active Member Role Status Dates NON STAFF Primary Care Provider Active Team Status: Inactive Member Role Status Dates Luna Sierra APRN Attending Provider Active S tart: January 30, 2025 End: January 30, 2025NON STAFFPrimary Care ProviderActiveStart: January 30, 2025 End: January 30, 2025 [...] or prosecute any alcohol or drug abuse patient.[facility] RehabilitationIn the event this information is protected by the Federal Confidentiality of Alcohol and Drug Abuse Patient Records regulations: The Federal rules restrict any use of the information to criminally investigate or prosecute any alcohol or drug abuse patient.[facility] RehabilitationIn the event this information is protected by the Federal Confidentiality of Alcohol and Drug Abuse Patient Records regulations: The Federal rules restrict any use of the information to criminally investigate or prosecute any alcohol or drug abuse patient.[facility] RehabilitationIn the event this information is protected by the Federal Confidentiality of Alcohol and Drug Abuse Patient Records regulations: The Federal rules restrict any use of the information to criminally investigate or prosecute any alcohol or drug abuse patient.[facility] RehabilitationIn the event this information is protected by the Federal Confidentiality of Alcohol and Drug Abuse Patient Records regulations: The Federal rules restrict any use of the information to criminally investigate or prosecute any alcohol or drug abuse patient.[facility] RehabilitationIn the event this information is protected by the Federal Confidentiality of Alcohol and Drug Abuse Patient Records regulations: The Federal rules restrict any use of the information to criminally investigate or prosecute any alcohol or drug abuse patient.[facility] RehabilitationIn the event this information is protected by the Federal Confidentiality of Alcohol and Drug Abuse Patient Records regulations: The Federal rules restrict any use of the information to criminally investigate or prosecute any alcohol or drug abuse patient.[facility] RehabilitationIn the event this information is protected by the Federal Confidentiality of Alcohol and Drug Abuse Patient Records regulations: The Federal rules restrict any use of the information to criminally investigate or prosecute any alcohol or drug abuse patient.[facility] RehabilitationIn the event this information is protected by the Federal Confidentiality of Alcohol and Drug Abuse Patient Records regulations: The Federal rules restrict any use of the information to criminally investigate or prosecute any alcohol or drug abuse patient.[facility] RehabilitationIn the event this information is protected by the Federal Confidentiality of Alcohol and Drug Abuse Patient Records regulations: The Federal rules restrict any use of the information to criminally investigate or prosecute any alcohol or drug abuse patient.[facility] RehabilitationIn the event this information is protected by the Federal Confidentiality of Alcohol and Drug Abuse Patient Records regulations: The Federal rules restrict any use of the information to criminally investigate or prosecute any alcohol or drug abuse patient.[facility] RehabilitationIn the event this information is protected by the Federal Confidentiality of Alcohol and Drug Abuse Patient Records regulations: The Federal rules restrict any use of the information to criminally investigate or prosecute any alcohol or drug abuse patient.[facility] RehabilitationIn the event this information is protected by the Federal Confidentiality of Alcohol and Drug Abuse Patient Records regulations: The Federal rules restrict any use of the information to criminally investigate or prosecute any alcohol or drug abuse patient.[facility] RehabilitationIn the event this information is protected by the Federal Confidentiality of Alcohol and Drug Abuse Patient Records regulations: The Federal rules restrict any use of the information to criminally investigate or prosecute any alcohol or drug abuse patient.[facility] RehabilitationIn the event this information is protected by the Federal Confidentiality of Alcohol and Drug Abuse Patient Records regulations: The Federal rules restrict any use of the information to criminally investigate or prosecute any alcohol or drug abuse patient.[facility] RehabilitationIn the event this information is protected by the Federal Confidentiality of Alcohol and Drug Abuse Patient Records regulations: The Federal rules restrict any use of the information to criminally investigate or prosecute any alcohol or drug abuse patient.[facility] RehabilitationIn the event this information is protected by the Federal Confidentiality of Alcohol and Drug Abuse Patient Records regulations: The Federal rules restrict any use of the information to criminally investigate or prosecute any alcohol or drug abuse patient.[facility] RehabilitationIn the event this information is protected by the Federal Confidentiality of Alcohol and Drug Abuse Patient Records regulations: The Federal rules restrict any use of the information to criminally investigate or prosecute any alcohol or drug abuse patient.[facility] RehabilitationIn the event this information is protected by the Federal Confidentiality of Alcohol and Drug Abuse Patient Records regulations: The Federal rules restrict any use of the information to criminally investigate or prosecute any alcohol or drug abuse patient.[facility] Reason for Visit (unrecogniz ed section and content) ReasonCommentsColon CancerReasonCommentsPatient QuestionSpecialtyDiagnoses / ProceduresReferred By ContactReferred To ContactCT IMAGING Diagnoses Malignant neoplasm of ascending colon (HCC) Procedures CT CHEST W IVCON DIAGNOSTIC COMPUTED TOMOGRAPHY THORAX W/[place] [address] [place] [id number] Imaging [place] [address] Referral IDStatusReasonStart DateExpiration DateVisits RequestedVisits [id number] Auto-Generated Referral /[id number] ExamReasonCommentsPost OpReasonComments Colon CancerNew patient consultSpecialtyDiagnoses / ProceduresReferred By ContactReferred To ContactOncology Diagnoses Malignant neoplasm of ascending colon (HCC) Procedures CONSULT TO ONCOLOGY OFFICE/OUTPATIENT [facility] 60 [place] [address] [place] [address] Referral IDStatusReasonStart DateExpiration DateVisits RequestedVisits [id number] PCP Requested Referral /[id number] Research Pre-Screening (IRB: [id number])ReasonCommentsCare CoordinationCancelling appointments at our office ReasonCommentsCare CoordinationTreatment prepReasonCommentsPost Op Follow Up Staple removalReasonCommentsResearchTCI Research Pre-Screening ([id number])Reason CommentsFollow Up3 month follow up, colon cancerReasonCommentsEstablished Patient Follow-Ups/p laparoscopic right colectomy on 06/14/2024 for cecal [...] BE BASED ON THE PRIMARY CLINICAL RECORDS. [employer] provides no warranty or guarantee of the accuracy or completeness of information in this document.
--- OUTSIDE RECORDS SUMMARY | 2025-03-14 07:16 | XMS_ITS | Clinical Summary ---
Author Organization [facility] Address [address] [place] [id number] Care Team Providers Care Pet Handler Name Role Phone Delta Pratt MD Primary Care Provider [phone] Geoffrey Edmond MD Unavailable [phone] Natalie Willis RN Unavailable [phone] Joseph Bragg MD Unavailable [phone] Allergies No known active allergies Medications MedicationSigDispense QuantityRefillsLast FilledStart DateEnd DateStatus EDARBI 80 mg tab 05/25/2019Active iv contrast (will be provided with radiology test) Indications:Malignant neoplasm of ascending colon (HCC)CT Chest ABD/PEL-Inject, intravenously, once for 1 dose.No IV access, insert saline lock prior to the beginning of sedation, infusion, injection of imaging exam. Discontinue saline lock post exam. IfPt. has a central line or IVAD, may access for administration according to line specific nursing protocol. Once exam is complete flush line and de-access according to line specific nursing protocol in the CT contrast administration guidelines link. 1 Each 5Active enteric contrast (will be provided with radiology test) Indications:Malignant neoplasm of ascending colon (HCC)For CT CHESTABD/PEL W IVCON Routine order Administer, As Directed One Time Only, via Oral, Rectal, b oth Oral and Rectal, Enteric Tube, Stoma or Indwelling Catheter, Enteric Contrast as designated perenteric contrast guidelines 1 Each 5Active acetaminophen (TYLENOL) 500 mg tablet Take 2 tablets by mouth every 6 hours. 50 tablet 5Active lactobacillus rhamnosus (CULTURELLE) 10 billion cell capsule Take 1 capsule by mouth once daily. 30 capsule 5Active methocarbamol (ROBAXIN) 500 mg tablet Take 1 tablet by mouth three times a day. 20 tablet 5Active prochlorperazine (COMPAZINE) 10 mg tablet Take 1 tablet by mouth every 6 hours as needed. 100 tablet 5Active ondansetron (ZOFRAN) 8 mg tablet Take 1 tablet by mouth every 8 hours as needed for nausea/vomiting. 90 tablet 5Active atorvastatin (LIPITOR) 40 mg tablet Take 40 mg by mouth once daily.Active ferrous sulfate 325 mg (65 mg iron) EC tablet Take 325 mg by mouth.Active pantoprazole DR (PROTONIX) 40 mg tablet Take 40 mg by mouth once daily.Active Active Problems ProblemNoted DateDiagnosed DateNicotine use disorder, F17.Malignant neoplasm of ascending colon06/14/2024MI 38.0-38.9,adult06/08/2024 Assessment & Plan (06/08/2024 9:15 AM EST): Assessment: BMI 38.78 HTN (hypertension)06/08/2024 Assessment & Plan (06/08/2024 9:15 AM EST): Assessment: managed with [facility] PCP following Stable, BP in office 06/08/2024: 128/82 Smokeless tobacco use06/08/2024 Assessment & Plan (06/08/2024 9:16 AM EST): Assessment: daily use of smokeless tobacco , chew SHERIE (obstructive sleep apnea)06/08/2024 Assessment & Plan (06/08/2024 9:17 AM EST): Assessment: h/o positive sleep study Unable to tolerate CPAP Resolved Problems ProblemNoted DateDiagnosed DateResolved DateWound geyaqmhglb94 Perioperative dehiscence of abdominal wound with evisceration, initial encounter Encounters DateTypeDepartmentCare HuqyIjhzpbuyzrn51/21/2025 1:00 PM EDTOffice Visit Colorectal Surgery [address] [place] [phone] Eleno Carias MD Incisional hernia, without obstruction or gangrene (Primary Dx)01/09/2025Travel from Last 3 Months Immunizations ImmunizationAdministration DatesNext Dueinfluenza (IIV4) vaccine, age 6 mo - 64 yr, quadrivalent, PF (AFLURIA, FLUARIX, FLULAVAL, FLUZONE)03/15/2018 Family History Medical HistoryRelationCommentsColon CancerMaternal Grandmotherbile duct cancer Maternal GrandmotherCancerMotherRelationStatusCommentsFatherAliveMaternal GrandmotherDeceasedMotherAlive Social History Tobacco UseTypesPacks/DayYears UsedDateSmoking Tobacco: NeverPassive Smoke Exposure: PastSmokeless Tobacco: CurrentChew Tobacco Cessation:Ready to Q uit: Not Asked; Counseling Given: Not Answered Alcohol UseStandard Drinks/WeekCommentsNot Currently0 (1 standard drink = 0.6 oz pure alcohol)[facility] UtilitiesAnswerDate RecordedIn the past 12 months has the [employer], gas, oil, or water [facility] threatened to shut off services in your home?No06/23/2024Hunger Vital SignAnswerDate RecordedWithin the past 12 months, you worried that your food would run out before you got the money to buymore. Never true06/23/2024Within the past 12 months, the food you bought just didn't last and you didn't have money to get more.Never true06/23/2024PRAPARE - TransportationAnswerDate RecordedIn the past 12 months, has lack of transportation kept you from medical appointments or from getting medications?No 06/23/2024In the past 12 months, has lack of transportation kept you from meetings, work, or from getting things needed for daily living?No06/23/2024 Housing Stability Vital SignAnswerDate RecordedIn the last 12 months, was there a time when you were not able to pay the mortgage or rent on time?No06/23/2024In the past 12 months, how many times have you moved where you were living?0 06/23/2024t any time in the past 12 months, were you homeless or living in a prison (including now)?No06/23/2024UDIT-CAnswerDate RecordedFrequency of Alcohol ConsumptionNot on file01/11/2025Q2: How many drinks containing alcohol do you have on a typical day when you are drinking?Patient does not drink 01/11/2025Frequency of Binge DrinkingNot on file01/11/2025rea Deprivation Index AnswerDate RecordedNational Score (1-100), lower number is lower risk94 06/02/2024State Score (1-10), lower number is lower pkmo560Data from: https://www.neighborhoodatlas.medicine.[facility].edu/. Last address used for [address]06/02/2024Sex and Gender InformationValueDate RecordedSex Assigned at BirthNot on fileLegal OtvUesb83/23/2024 9:39 AM EST Gender IdentityNot on fileSexual OrientationNot on file Last Filed Vital Signs Vital SignReadingTime TakenCommentsBlood Vonnohwv810/8008 12:58 PM EDT Wdhzq948901/11/2025 12:58 PM IAPLrrqsdchyhf96.6 ??C (97.9 ??F)07/07/2024 8:50 AM ESTRespiratory Mcpy382906/28/2024 10:56 AM ESTOxygen Xjxmeufchc77%07/07/2024 8:50 AM ESTInhaled Oxygen Concentration--Nxrmqr643.3 kg (252 lb)01/11/2025 12:58 PM MJOHptoxn228.8 cm (5' 10 )01/11/2025 12:58 PM EDTBody Mass Index36.16001/11/2025 12:58 PM EDT Plan of Treatment Health MaintenanceDue DateLast DoneCommentsAnnual PCP Team Chronic Disease Visit 1989Anxiety Qhlnnhyjo48/27/1989Depression Wybylzmgw75/27/1989HIV Screening 1989Hepatitis C Psrzqexcj29/27/1989DTaP,Tdap,Td Vaccine (1 - Tdap) 1990Hepatitis B Vaccine (1 of 3 - 19+ 3-dose series)1990Lipid Mpxwakpas15/27/2006CT Hefoawxzhsgv27/27/2016Cologuard (FIT-DNA)02/18/2016 Mfwozruzpjm47/27/2016Colorectal Cancer Ocwslkbin40/27/2016Fecal Occult Blood 02/18/20161846Vjpnwqofobwlo66/27/2016Pneumococcal Vaccine: 50+ (1 of 1 - PCV) 2021hingrix Vaccine (1 of 2)1Covid-19 Vaccine (3 - 2024- season)504/, 08/22/2020Influenza Vaccine (#1)2025 03/15/2018Diabetes Opgvsflhk76/31/80695306/23/2024, 06/22/2024, 06/21/2024, Additional history exists Procedures Procedure NamePriorityDate/TimeAssociated DiagnosisCommentsPT ED PATIENT TZGDPVBFIIW54/14/2025 BASIC METABOLIC YDLZABufziuz48/31/2025 5:05 AM EST from Last 3 Months or Most Recently Relevant to Health Maintenance Results * PT ED PATIENT INFORMATION (01/04/2025)Specimen (Source)Anatomical Location / LateralityCollection Method / VolumeCollection TimeReceived Time01/04/2025 Narrative [facility] - 02/04/2025 Provider [place] bower patient PIPER MARTINEZ has not started their [place] program, time has . [place]urel program: PATIENT SAFETY INSTRUCTIONS FOR HEALTHCARE SETTINGS Authorizing ProviderResult TypeResult StatusAdelta Carias MDEMMIFinal Result Performing OrganizationAddressCity/State/ZIP CodePhone Number [place] * (ABNORMAL) BASIC METABOLIC PANEL (06/23/2024 5:05 AM EST)ComponentValueRef RangeTest MethodAnalysis TimePerformed AtPathologist YstjyampxCpdhjrd661(H)74 - 99 mg/dL06/23/2024 6:03 AM ESTFAIRVIEW LABORATORYComment: The [place] Diabetes Association (ADA) provides guidance for cutoff values for fasting glucose andrandom glucose. The ADA defines fasting as no [...] Standards of Medical Care in Diabetes 2016, [place] [employer]. Diabetes Care. 2016.39(Suppl 1). IUT809 - 24 mg/dL06/23/2024 6:03 AM ESTFAIRVIEW LABORATORYCreatinine0.960.73 - 1.22 mg/dL06/23/2024 6:03 AM ESTFAIRVIEW IHLAGARFKDLrvpms949710 - 144 mmol/L 06/23/2024 6:03 AM ESTFAIRVIEW LABORATORYPotassium4.23.7 - 5.1 mmol/L06/23/2024 6:03 AM ESTFAIRVIEW BCOWMFSQMJMolmyame22980 - 107 mmol/L06/23/2024 6:03 AM EST [facility] CICJZYQVPZCX48329 - 30 mmol/L06/23/2024 6:03 AM ESTFAIRVIEW LABORATORY Anion Cod533 - 15 mmol/L06/23/2024 6:03 AM ESTFAIRVIEW LABORATORYCalcium, Total 8.98.5 - 10.2 mg/dL06/23/2024 6:03 AM ESTFAIRVIEW LABORATORYEstimated Glomerular Filtration Rate95>=60 mL/min/1.73m 06/23/2024 6:03 AM ESTFAIRVIEW LABORATORYComment:Estimated Glomerular Filtration Rate (eGFR) is calculated using the 2020 CKD-EPI creatinine equation. This equation utilizes serum creatinine, sex, and age as parameters. The creatinine assay has traceable calibration to isotope dilution-mass spectrometry. Refer to KDIGO guidelines for clinical interpretation. In patients with unstable renal function, e.g. those with acute kidney injury, the eGFRmay not accurately reflect actual GFR.Specimen (Source)Anatomical Location / LateralityCollection Method / VolumeCollection TimeReceived TimeBloodBLOOD SPECIMEN / Unknown Venipuncture / Njfhbrh0506/23/2024 5:05 AM EST06/23/2024 5:36 AM EST Narrative Authorizing ProviderResult TypeResult StatusAdelta Carias MDLABORATORYFinal ResultPerforming OrganizationAddressCity/State/ZIP CodePhone Number [facility] [id number] from Last 3 Months or Most Recently Relevant to Health Maintenance Insurance Care Teams Team MemberRelationshipSpecialtyStart DateEnd Date Delta Pratt MD [address] [place] [phone] PCP - GeneralFamily Dbkabynj70/23/24 Geoffrey Edmond MD [address] [place] [phone] General Lwysnoe01/23/24 Natalie Willis RN [address] [address] Specialty Care CoordinatorHematology/Oncology06/29/24 Joseph Bragg MD [address] [place] [address] PhysicianHematology/Oncology06/29/24
--- OUTSIDE RECORDS SUMMARY | 2025-03-14 07:16 | XMS_ITS | Patient Health Record ---
Author Organization [facility] in [place] Address [address] [place] [address] Care Team Providers Care Operations Asst Name Role Phone Nick Pratt Primary Care Provider [phone] Danielito, Franklin Unavailable [phone] DANIELITO, FRANKLIN Unavailable [phone] Allergies No Known Allergies Results Component Value Reference Range Notes FERRITIN Reviewed date:05/15/2024 07:51:13 PM Interpretation: Performing Lab: Notes/Report: [facility] , Ferritin 21.0 26.0-388.0 ng/mL Performing Lab:see noteML - [facility] LBIRON AND TIBC Reviewed date:05/15/2024 07:51:13 PM Interpretation: Performing Lab: Notes/Report: [facility] ,Iron39.065.0-175.0 ug/dLTotal Iron Binding Awlainap685.0250.0-450.0 ug/dL Percent Iron Saturation8.7Performing Lab:see noteML - [facility] LBXR chest 1V Reviewed date:07/05/2024 09:47:56 PM Interpretation: Performing Lab: Notes/Report: Source Facility: [facility]-[address] [place] [address] [place] [address] XRay Report Signed Patient: PIPER RODRÍGUEZ MR#: [id number] : 1970 Acct:[id number] Age/Sex: 54 / M ADM Date: 07/05/24 Loc: SURGOUT Attending Dr: Jone Edmond M.D. Ordering Physician: Jone Edmond M.D. Date of Service: 07/05/24 Procedure(s): XR chest 1V Accession Number(s): [id number] cc: Delta Pratt M.D.; Jone Edmond M.D. [facility] [place] [id number] Patient Name: PIPER RODRÍGUEZ MRN: [facility]:[id number] date: 1970 Sex: M Assigned Patient Location: SURGOUT Current Patient Location: SURGOUT Accession/Order Number: [id number] Exam Date: 07/05/2024 15:30 Report Date: 07/05/2024 15:52 At the request of: JONE EDMOND Procedure: XR chest 1V EXAMINATION: XR chest 1V HISTORY: s/p forpuw-s-pirt insertion COMPARISON: 08/02/2023 TECHNIQUE: AP portable FINDINGS: LUNGS: No significant pulmonary parenchymal abnormalities. VASCULATURE: No increased pulmonary vasculature. PLEURA: No pneumothorax, effusion, or pleural thickening. CARDIAC: No cardiomegaly or cardiac silhouette abnormality. MEDIASTINUM: No visible mass or adenopathy. BONES: No fracture or visible bone lesion. OTHER: Right single lumen Port-A-Cath projects over the mid superior vena cava XR/XR chest 1V IMPRESSION: Right Port-A-Cath placement with no pneumothorax. Electronically authenticated by: HILDA SONG Date: 07/05/2024 15:52 Dictated By: Hilda Song M.D. Signed By: 07/05/24 1554 DD/ 1552 TD/TT: Word Processing Specialist:PROF Gary(COMP METB) Reviewed date:02/21/2025 01:06:06 PM Interpretation: Performing Lab: Notes/Report: [facility] ,Ywsdqw692722-515 mmol/LPotassium4.53.5-5.1 mmol/VZhlssurw37748-180 mmol/LCarbon Bznojyr23.621.0-32.0 mmol/LAnion Gap10.6Mtilrrh26914-315 mg/dLBlood Urea Ockoamtw64.07.0-18.0 mg/dLCreatinine1.090.70-1.30 mg/dLEstimated GFR ( Casi>60>=60 mL/min/1.73m 2Estimated GFR (Non- Suha>60>=60 mL/min/1.73m 2BUN Creatinine Ratio11.8Tvjrqyc8.78.5-10.1 mg/dLBilirubin Total0.50.2-1.0 mg/dL Aspartate Amino Cyxwkluvwwe6567-61 U/LAlanine Uvmmojdopnyaxayb0905-30 U/L Alkaline Kpmtdflejef6628-960 U/LTotal Protein7.16.4-8.2 g/dLAlbumin Level3.33.4- 5.0 g/dLGlobulin3.8Albumin Globulin Ratio0.9Performing Lab:see note - [facility] LBPROF 14(COMP METB) Reviewed date:02/21/2025 01:06:05 PM Interpretation: Performing Lab: Notes/Report: [facility] ,Oaxqqt130697-596 mmol/LPotassium4.73.5-5.1 mmol/SUierktap76803-749 mmol/LCarbon Odhnwup50.221.0-32.0 mmol/LAnion Gap10.4Uvlsywf61315-887 mg/dLBlood Urea Yyhwmtuw78.07.0-18.0 mg/dLCreatinine1.170.70-1.30 mg/dLEstimated GFR ( Casi>60>=60 mL/min/1.73m 2Estimated GFR (Non- Suha>60>=60 mL/min/1.73m 2BUN Creatinine Ratio15.5Sgplrbu5.98.5-10.1 mg/dLBilirubin Total0.60.2-1.0 mg/dL Aspartate Amino Tpgkjsrghlq4606-32 U/LAlanine Yhtqzbnddaffzxpd3271-62 U/L Alkaline Nzzjqspzueq9709-347 U/LTotal Protein7.26.4-8.2 g/dLAlbumin Level3.13.4- 5.0 g/dLGlobulin4.1Albumin Globulin Ratio0.8Performing Lab:see note - [facility] LBCA echo doppler complete Reviewed date:02/21/2025 01:06:05 PM Interpretation: Performing Lab: Notes/Report: Source Facility: [place] [address] [place] [address] Cardiology Report Signed Patient: PIPER RODRÍGUEZ MR#: [id number] : 1970 Acct:[id number] Age/Sex: 54 / M ADM Date: 09/22/24 Loc: CARD Attending Dr: Franklin Esteves M.D. Ordering Physician: Franklin Esteves M.D. Date of Service: 09/22/24 Procedure(s): CA echo doppler complete Accession Number(s): [id number] cc: Franklin Esteves M.D.; Delta Pratt M.D. Patient Name: PIPER RODRÍGUEZ MR#: [id number] : 1970 Exam Date: 09/22/2024 Ordering Doctor: FRANKLIN ESTEVES ECHOCARDIOGRAM REPORT PROCEDURE: CA ECHO DOPPLER COMPLETE INDICATIONS: Dyspnea, bradycardia, cardiotoxic chemotherapy, hypertension COMPARISON: None. DESCRIPTION: COMPLETE ECHOCARDIOGRAM Real-time transthoracic echocardiography with 2D, M-mode, spectral and color flow Doppler performed. QUALITY: Technical quality was good. LEFT VENTRICLE: Normal chamber size. Mildly thickened septal wall proximally. Normal left ventricle systolic function without wall motion abnormalities, calculated left ventricular ejection fraction is 59%. Longitudinal strain -17.5% LV EF: Normal left ventricular ejection fraction 59% DIASTOLIC: Normal diastolic function. ATRIAL SEPTUM: Appears intact LEFT ATRIUM: Normal chamber size. RIGHT ATRIUM: Normal chamber size. RIGHT VENTRICLE: Normal chamber size. TRICUSPID VALVE: Normal mobility and thickness. No stenosis with trivial regurgitation. No evidence of pulmonary hypertension.RVSP 32 mmHg MITRAL VALVE: Normal mobility and thickness. No evidence of mitral valve stenosis. There is no mitral annular calcification. No mitral regurgitation. AORTIC VALVE: Normal trileaflet appearance. No visible sclerosis. Normal leaflet mobility. No evidence of aortic valve stenosis. No aortic regurgitation. AORTIC ROOT: Normal diameter and appearance. Ascending aorta is normal in size. PULMONIC VALVE: Normal thickness and mobility. No stenosis. No regurgitation. PERICARDIUM: No evidence of pericardial effusion. IVC: IVC is normal in size with normal collapse. PLEURA: CONCLUSION: Normal chamber size. Mildly thickened septal wall proximally. Normal left ventricle systolic function without wall motion abnormalities, calculated left ventricular ejection fraction is 59%. Longitudinal strain -17.5% Normal left ventricle diastolic function Normal right ventricular size and systolic function Normal right-sided pressures No significant valvular abnormalities Adult Echocardiography Procedure Report Left Ventricle LVEDD (3.7 - 5.6 cm): 4.55 cm LVESD (2.2 - 4.0 cm): 3.29 cm LVIVS thickness (0.6 - 1.2 cm): 1.23 cm LVPW thickness (0.5 - 1.0 cm): 1.05 cm e': 0.12 m/s E - e': 5.69 LVOT Max Gradient: 3.18 mm[Hg] LVOT Area (cm2): 0.89 m/s Peak Velocity (LVOT): 0.89 m/s Mean Velocity (LVOT): 0.59 m/s LVOT Diameter 2.63 cm Left Ventricular Ejection Fraction: Left Atrium LA Volume Index (2D A2C): 20.24 ml/m2 Left Atrium Systolic Dimension: 3.81 cm Mitral Valve MV E to A Ratio: 0.88 MV Max Gradient: MV Mean Gradient: Mitral Valve A-Wave Peak Velocity: 0.76 m/s Mitral Valve E-Wave Peak Velocity: 0.67 m/s Cardiovascular Orifice Area: Right Ventricle RV Internal Diastolic Dimension: Aorta AO Root Diam: 3.42 cm Ascending Ao Diam: 3.05 cm Aortic Valve AoV Area (Peak Bj): 4.32 cm2, 4.32 cm2 AoV Area (VTI): 4.47 cm2, 4.47 cm2 Deceleration [place]: Pressure Half-Time: Peak Velocity(Antegrade Flow): 1.12 m/s Peak Gradient(Antegrade Flow): 5.03 mm[Hg] Mean Velocity(Antegrade Flow): 0.66 m/s Mean Gradient(Antegrade Flow): 2.13 mm[Hg] Velocity Time Integral: 19.45 cm Tricuspid Valve Peak Velocity (Regurgitant Flow): 2.68 m/s Peak Velocity: Pulmonic Valve Mean Gradient: 2.11 mm[Hg], 2.54 mm[Hg] Mean Velocity: 0.66 m/s, 0.73 m/s Peak Velocity: 1.20 m/s Peak Gradient: 5.72 mm[Hg], 4.61 mm[Hg], 4.73 mm[Hg] Right Atrium Right Atrium Systolic Pressure: 40.81 ml, 40.81 ml Dictated by: Venice Hercules MD on 09/22/2024 at 16:55 Approved by: Venice Hercules MD on 09/22/2024 at 17:03 Dictated By: Venice Hercules M.D. Signed By: 09/22/241704 DD/ 02 TD/TT: Word Processing Specialist:CBC AUTO DIFF Reviewed date:02/21/2025 01:06:04 PM Interpretation: Performing Lab: Notes/Report: [facility] ,White Blood Count4.74.0-11.0 10 3/uLRed Blood Count4.464.70-6.10 10 6/uL Jbtswsawww84.214.0-18.0 g/mWOxmtxzfrbu67.342.0-54.0 %Mean Corpuscular Akgukt49.1 80.0-94.0 fLMean Corpuscular Xhyxldgkxi65.825.9-34.0 pgMean Corpuscular HGB Conc 32.829.9-35.2 g/dLRed Cell Distribution Width17.911.0-15.0 %Platelet Avbdv349 150-450 10 3/uLMean Platelet Uesjrn54.09.5-13.5 fLNeutrophils Percent Auto62.9 43.0-75.0 %Lymphocytes Percent Auto21.520.5-60.0 %Monocytes Percent Auto11.51.7- 12.0 %Eosinophils Percent Auto2.80.9-7.0 %Basophils Percent Auto1.10.2-2.0 % Immature Granulocytes Pct Auto0.20.0-0.5 %Neutrophils Absolute Auto3.01.4-6.5 10 3/uLLymphocytes Absolute Auto1.01.2-3.8 10 3/uLMonocytes Absolute Auto0.50.3- 0.8 10 3/uLEosinophils Absolute Auto0.10.0-0.7 10 3/uLBasophils Absolute Auto0.1 0.0-0.1 10 3/uLImmature Granulocytes Abs Auto0.010.00-0.03 10 3/uLPerforming Lab:see noteML - [facility] LBCBC AUTO DIFF Reviewed date:02/21/2025 01:06:05 PM Interpretation: Performing Lab: Notes/Report: [facility] ,White Blood Count3.04.0-11.0 10 3/uLRed Blood Count4.354.70-6.10 10 6/uL Kgbjafoxeb34.214.0-18.0 g/lAHytijrzzon00.942.0-54.0 %Mean Corpuscular Yvooph59.4 80.0-94.0 fLMean Corpuscular Jumcetqemr68.325.9-34.0 pgMean Corpuscular HGB Conc 33.929.9-35.2 g/dLRed Cell Distribution Width15.111.0-15.0 %Platelet Zbmnr460 150-450 10 3/uLMean Platelet Zpupcv50.19.5-13.5 fLNeutrophils Percent Auto36.2 43.0-75.0 %Lymphocytes Percent Auto41.320.5-60.0 %Monocytes Percent Auto18.51.7- 12.0 %Eosinophils Percent Auto3.00.9-7.0 %Basophils Percent Auto0.70.2-2.0 % Immature Granulocytes Pct Auto0.30.0-0.5 %Neutrophils Absolute Auto1.11.4-6.5 10 3/uLLymphocytes Absolute Auto1.31.2-3.8 10 3/uLMonocytes Absolute Auto0.60.3- 0.8 10 3/uLEosinophils Absolute Auto0.10.0-0.7 10 3/uLBasophils Absolute Auto0.0 0.0-0.1 10 3/uLImmature Granulocytes Abs Auto0.010.00-0.03 10 3/uLPerforming Lab:see noteML - [facility] LBCBC AUTO DIFF Reviewed date:02/21/2025 01:06:05 PM Interpretation: Performing Lab: Notes/Report: [facility] ,White Blood Count4.64.0-11.0 10 3/uLRed Blood Count4.494.70-6.10 10 6/uL Kvfwurvtwq60.814.0-18.0 g/tTYhhwlfutcv60.142.0-54.0 %Mean Corpuscular Sweteo54.3 80.0-94.0 fLMean Corpuscular Fwotqgyhfe52.725.9-34.0 pgMean Corpuscular HGB Conc 34.429.9-35.2 g/dLRed Cell Distribution Width14.711.0-15.0 %Platelet Cpbrj86001- 450 10 3/uLMean Platelet Tykivv75.59.5-13.5 fLNeutrophils Percent Auto55.643.0- 75.0 %Lymphocytes Percent Auto29.420.5-60.0 %Monocytes Percent Auto12.21.7-12.0 %Eosinophils Percent Auto2.20.9-7.0 %Basophils Percent Auto0.40.2-2.0 %Immature Granulocytes Pct Auto0.20.0-0.5 %Neutrophils Absolute Auto2.61.4-6.5 10 3/uL Lymphocytes Absolute Auto1.41.2-3.8 10 3/uLMonocytes Absolute Auto0.60.3-0.8 10 3/uLEosinophils Absolute Auto0.10.0-0.7 10 3/uLBasophils Absolute Auto0.00.0-0.1 10 3/uLImmature Granulocytes Abs Auto0.010.00-0.03 10 3/uLPerforming Lab:see noteML - [facility] LBECG 12 lead Reviewed date:02/21/2025 01:06:06 PM Interpretation: Performing Lab: Notes/Report: Source Facility: [facility]-[address] [place] [address] [place] [address] Electrocardiograph Report Signed Patient: PIPER RODRÍGUEZ MR#: [id number] : 1970 Acct:[id number] Age/Sex: 54 / M ADM Date: 08/22/24 Loc: HEMC Attending Dr: Franklin Esteves M.D. Ordering Physician: Franklin Esteves M.D. 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 Measurements Intervals [place] Rate: 48 P: 28 MD: 194 QRS: -14 QRSD: 97 T: 36 QT: 448 QTc: 401 Interpretive Statements SINUS BRADYCARDIA LOW QRS VOLTAGE IN PRECORDIAL LEADS [QRS DEFLECTION < 1.0 mV IN CHEST LEADS] PATTERN CONSISTENT WITH PULMONARY DISEASE SEPTAL MYOCARDIAL INFARCTION [40+ ms Q WAVE IN V1/V2], PROBABLY OLD Abnormal ECG Compared to ECG 08/02/2023 07:55:50 Low QRS voltage now present Electronically Signed On 08-22-2024 20:21:56 EDT by FELICIANO HANSEN M.D. Dictated By: FELICIANO HANSEN Signed By: 08/22/242021 DD/ 36 TD/TT: Word Processing Specialist:T4 Reviewed date:10/10/2024 08:21:39 PM Interpretation: Performing Lab: Notes/Report: [facility] ,T4 Thyroxine7.704.50-12.10 ug/dLPerforming Lab:see noteML - [facility] LBTSH Reviewed date:10/10/2024 08:21:39 PM Interpretation: Performing Lab: Notes/Report: [facility] ,Thyroid Stimulating Hormone0.9170.358-3.740 uIU/mLPerforming Lab:see noteML - [facility] LBPROF 14(COMP METB) Reviewed date:02/21/2025 01:06:06 PM Interpretation: Performing Lab: Notes/Report: [facility] ,Egvfad984381-740 mmol/LPotassium5.23.5-5.1 mmol/SDhnnpniz53078-662 mmol/LCarbon Mihljzg69.121.0-32.0 mmol/LAnion Gap14.7Nyqjhtb56196-227 mg/dLBlood Urea Gfvtomba76.07.0-18.0 mg/dLCreatinine1.050.70-1.30 mg/dLEstimated GFR ( Casi>60>=60 mL/min/1.73m 2Estimated GFR (Non- Suha>60>=60 mL/min/1.73m 2BUN Creatinine Ratio22.7Eufjmee3.88.5-10.1 mg/dLBilirubin Total0.40.2-1.0 mg/dL Aspartate Amino Dxauwzzkcgf6374-67 U/LAlanine Zpruozkgoqyxlspj6856-45 U/L Alkaline Mofrftcbjkq7828-666 U/LTotal Protein7.06.4-8.2 g/dLAlbumin Level3.13.4- 5.0 g/dLGlobulin3.9Albumin Globulin Ratio0.8Performing Lab:see noteML - [facility] LBMAGNESIUM Reviewed date:02/21/2025 01:06:06 PM Interpretation: Performing Lab: Notes/Report: [facility] ,Magnesium2.41.8-2.4 mg/dLPerforming Lab:see noteML - [facility] LB CBC AUTO DIFF Reviewed date:02/21/2025 01:06:05 PM Interpretation: Performing Lab: Notes/Report: [facility] ,White Blood Count4.64.0-11.0 10 3/uLRed Blood Count4.654.70-6.10 10 6/uL Nwhnawtszk97.114.0-18.0 g/jMXwylpywahd32.642.0-54.0 %Mean Corpuscular Xvxibo89.6 80.0-94.0 fLMean Corpuscular Uypbxqsxxu95.325.9-34.0 pgMean Corpuscular HGB Conc 33.129.9-35.2 g/dLRed Cell Distribution Width14.111.0-15.0 %Platelet Gbjup954 150-450 10 3/uLMean Platelet Cmvixm17.89.5-13.5 fLNeutrophils Percent Auto51.9 43.0-75.0 %Lymphocytes Percent Auto32.920.5-60.0 %Monocytes Percent Auto12.61.7- 12.0 %Eosinophils Percent Auto2.00.9-7.0 %Basophils Percent Auto0.40.2-2.0 % Immature Granulocytes Pct Auto0.20.0-0.5 %Neutrophils Absolute Auto2.41.4-6.5 10 3/uLLymphocytes Absolute Auto1.51.2-3.8 10 3/uLMonocytes Absolute Auto0.60.3-0.8 10 3/uLEosinophils Absolute Auto0.10.0-0.7 10 3/uLBasophils Absolute Auto0.00.0- 0.1 10 3/uLImmature Granulocytes Abs Auto0.010.00-0.03 10 3/uLPerforming Lab:see noteML - [facility] LBCBC AUTO DIFF Reviewed date:02/21/2025 01:06:06 PM Interpretation: Performing Lab: Notes/Report: [facility] ,White Blood Count6.04.0-11.0 10 3/uLRed Blood Count4.524.70-6.10 10 6/uL Xymrilngij53.014.0-18.0 g/zSBtymjptgws04.842.0-54.0 %Mean Corpuscular Jhjshc01.5 80.0-94.0 fLMean Corpuscular Zoaajkhilb75.025.9-34.0 pgMean Corpuscular HGB Conc 33.529.9-35.2 g/dLRed Cell Distribution Width13.611.0-15.0 %Platelet Bpand852 150-450 10 3/uLMean Platelet Nerjlj07.59.5-13.5 fLNeutrophils Percent Auto64.8 43.0-75.0 %Lymphocytes Percent Auto20.020.5-60.0 %Monocytes Percent Auto12.21.7- 12.0 %Eosinophils Percent Auto2.30.9-7.0 %Basophils Percent Auto0.50.2-2.0 % Immature Granulocytes Pct Auto0.20.0-0.5 %Neutrophils Absolute Auto3.91.4-6.5 10 3/uLLymphocytes Absolute Auto1.21.2-3.8 10 3/uLMonocytes Absolute Auto0.70.3-0.8 10 3/uLEosinophils Absolute Auto0.10.0-0.7 10 3/uLBasophils Absolute Auto0.00.0- 0.1 10 3/uLImmature Granulocytes Abs Auto0.010.00-0.03 10 3/uLPerforming Lab:see noteML - [facility] LBVitamin B12 Reviewed date:02/21/2025 01:06:06 PM Interpretation: Performing Lab: Notes/Report: [facility] ,Vitamin [id number] pg/mL Performed at: [address] [id number] Professor Sculpture: Hayder Hill PhD, Phone: [phone] [facility]forming [facility] LBCEA Reviewed date:02/21/2025 01:06:06 PM Interpretation: Performing Lab: Notes/Report: [facility] ,CEA2.50.0-4.7 ng/mL Nonsmokers <3.9 Smokers <5.6 [facility] Electrochemiluminescence Immunoassay (ECLIA) Values obtained with different assay methods or kits cannot be used interchangeably. Results cannot be interpreted as absolute evidence of the presence or absence of malignant disease. Performed at: [address] [id number] Professor Sculpture: Hayder Hill PhD, Phone: [phone] Performing Lab[facility] LBPROF 14(COMP METB) Reviewed date:02/21/2025 01:06:06 PM Interpretation: Performing Lab: Notes/Report: [facility] ,Ptdxxx393246-677 mmol/LPotassium5.13.5-5.1 mmol/FHgnvuffq91521-437 mmol/LCarbon Zlavhcr77.421.0-32.0 mmol/LAnion Gap14.3Jazojrr28868-128 mg/dLBlood Urea Sfimapks06.07.0-18.0 mg/dLCreatinine1.080.70-1.30 mg/dLEstimated GFR ( Casi>60>=60 mL/min/1.73m 2Estimated GFR (Non- Suha>60>=60 mL/min/1.73m 2BUN Creatinine Ratio13.4Syblmct8.88.5-10.1 mg/dLBilirubin Total0.70.2-1.0 mg/dL Aspartate Amino Qdfgglavxbq6611-20 U/LAlanine Caoykoyvdwtvgrvf55985-68 U/L Alkaline Bihdusdowaz55234-655 U/LTotal Protein8.36.4-8.2 g/dLAlbumin Level3.9 3.4-5.0 g/dLGlobulin4.4Albumin Globulin Ratio0.9Performing Lab:see noteML - [facility] LBIRON AND TIBC Reviewed date:02/21/2025 01:06:06 PM Interpretation: Performing Lab: Notes/Report: [facility] ,Iron81.065.0-175.0 ug/dLTotal Iron Binding Bqyrmxib307.0250.0-450.0 ug/dL Percent Iron Jcomofvbku59.4Performing Lab:see noteML - [facility] LB FERRITIN Reviewed date:02/21/2025 01:06:06 PM Interpretation: Performing Lab: Notes/Report: [facility] ,Ukqztyje36.026.0-388.0 ng/mLPerforming Lab:see noteML - [facility] LBCBC AUTO DIFF Reviewed date:02/21/2025 01:06:06 PM Interpretation: Performing Lab: Notes/Report: [facility] ,White Blood Count6.64.0-11.0 10 3/uLRed Blood Count5.174.70-6.10 10 6/uL Nsgaontuyr13.614.0-18.0 g/zRRudkievqlb18.642.0-54.0 %Mean Corpuscular Ilcavj86.1 80.0-94.0 fLMean Corpuscular Rtgplmuqjx61.225.9-34.0 pgMean Corpuscular HGB Conc 32.829.9-35.2 g/dLRed Cell Distribution Width14.111.0-15.0 %Platelet Ntgkr038 150-450 10 3/uLMean Platelet Vavewa88.99.5-13.5 fLNeutrophils Percent Auto60.4 43.0-75.0 %Lymphocytes Percent Auto20.420.5-60.0 %Monocytes Percent Auto9.71.7- 12.0 %Eosinophils Percent Auto8.60.9-7.0 %Basophils Percent Auto0.60.2-2.0 % Immature Granulocytes Pct Auto0.30.0-0.5 %Neutrophils Absolute Auto4.01.4-6.5 10 3/uLLymphocytes Absolute Auto1.41.2-3.8 10 3/uLMonocytes Absolute Auto0.60.3-0.8 10 3/uLEosinophils Absolute Auto0.60.0-0.7 10 3/uLBasophils Absolute Auto0.00.0- 0.1 10 3/uLImmature Granulocytes Abs Auto0.020.00-0.03 10 3/uLPerforming Lab:see noteML - [facility] LBFL fluoroscopy <1hr NON-READ Reviewed date:07/08/2024 02:03:48 PM Interpretation: Performing Lab: Notes/Report: Source Facility: [facility]-[address] [place] [address] [place] [address] Fluoroscopy Report Signed Patient: PIPER RODRÍGUEZ MR#: [id number] : 1970 Acct:[id number] Age/Sex: 54 / M ADM Date: 07/05/24 Loc: SURGOUT Attending Dr: Jone Edmond M.D. Ordering Physician: Jone Edmond M.D. Date of Service: 07/05/24 Procedure(s): FL fluoroscopy <1hr NON-READ Accession Number(s): [id number] cc: Delta Pratt M.D.; Jone Edmond M.D. [facility] [place] [address] Patient Name: PIPER RODRÍGUEZ MRN: [facility]:[id number] date: 1970 Sex: M Assigned Patient Location: [facility] Current Patient Location: Accession/Order Number: [id number] Exam Date: 07/05/2024 14:03 Report Date: 07/07/2024 08:20 At the request of: JONE EDMOND Procedure: FL fluoroscopy <1hr NON-READ EXAM: FL fluoroscopy <1hr NON-READ HISTORY: TECHNIQUE: FINDINGS: Please see Operative Report. Electronically authenticated by: RADIOLOGIST KINDRA Date: 07/07/2024 08:20 Dictated By: KindraRadiologist Signed By: 07/07/24821 DD/ 9 TD/TT: Word Processing Specialist:PROF DARVIN Bhakta ([facility]) Reviewed date:07/05/2024 09:47:56 PM Interpretation: Performing Lab: Notes/Report: [facility] ,Knidtj183235-658 mmol/LPotassium4.53.5-5.1 mmol/SOvhoyrsd30543-104 mmol/LCarbon Flohiou69.221.0-32.0 mmol/LAnion Gap11.1Dpxtbiw25345-190 mg/dLBlood Urea Gwrwssyo79.07.0-18.0 mg/dLCreatinine1.180.70-1.30 mg/dLEstimated GFR ( Casi>60>=60 mL/min/1.73m 2Estimated GFR (Non- Suha>60>=60 mL/min/1.73m 2BUN Creatinine Ratio11.2Oepxlve2.08.5-10.1 mg/dLPerforming Lab:see note - [facility] LBIRON AND TIBC Reviewed date:07/05/2024 09:47:56 PM Interpretation: Performing Lab: Notes/Report: [facility] ,Iron66.065.0-175.0 ug/dLTotal Iron Binding Nbkdlghb976.0250.0-450.0 ug/dL Percent Iron Aiswoaigsn46.9Performing Lab:see note - [facility] LB FERRITIN Reviewed date:07/05/2024 09:47:56 PM Interpretation: Performing Lab: Notes/Report: [facility] ,Ygdxsbxe096.026.0-388.0 ng/mLPerforming Lab:see note - [facility] LBCBC AUTO DIFF Reviewed date:07/05/2024 09:47:56 PM Interpretation: Performing Lab: Notes/Report: [facility] ,White Blood Count7.04.0-11.0 10 3/uLRed Blood Count5.024.70-6.10 10 6/uL Pzicvycmlv45.414.0-18.0 g/aTPcdatrzpqn75.242.0-54.0 %Mean Corpuscular Drgasb02.0 80.0-94.0 fLMean Corpuscular Ngnjfeajui52.725.9-34.0 pgMean Corpuscular HGB Conc 32.629.9-35.2 g/dLRed Cell Distribution Width16.411.0-15.0 %Platelet Mxliw361 150-450 10 3/uLMean Platelet Ktfrtk02.59.5-13.5 fLNeutrophils Percent Auto55.6 43.0-75.0 %Lymphocytes Percent Auto25.920.5-60.0 %Monocytes Percent Auto11.71.7- 12.0 %Eosinophils Percent Auto5.50.9-7.0 %Basophils Percent Auto1.00.2-2.0 % Immature Granulocytes Pct Auto0.30.0-0.5 %Neutrophils Absolute Auto3.91.4-6.5 10 3/uLLymphocytes Absolute Auto1.81.2-3.8 10 3/uLMonocytes Absolute Auto0.80.3-0.8 10 3/uLEosinophils Absolute Auto0.40.0-0.7 10 3/uLBasophils Absolute Auto0.10.0- 0.1 10 3/uLImmature Granulocytes Abs Auto0.020.00-0.03 10 3/uLPerforming Lab:see noteML - [facility] LBXR acute abdomen series Reviewed date:05/15/2024 07:51:13 PM Interpretation: Performing Lab: Notes/Report: Source Facility: [place] [address] XRay Report Signed Patient: PIPER RODRÍGUEZ MR#: [id number] : 1970 Acct:[id number] Age/Sex: 54 / M ADM Date: 05/15/24 Loc: ER Attending Dr: Ordering Physician: Santos Chau Date of Service: 05/15/24 Procedure(s): XR acute abdomen series Accession Number(s): [id number] cc: Delta Pratt M.D.; Santos Chau [place] [id number] Patient Name: PIPER RODRÍGUEZ MRN: [id number] date: 1970 Sex: M Assigned Patient Location: ER Current Patient Location: ER Accession/Order Number: [id number] Exam Date: 05/15/2024 11:17 Report Date: 05/15/2024 12:04 At the request of: SANTOS CHAU Procedure: XR acute abdomen series EXAMINATION: XR acute abdomen series HISTORY: Free air COMPARISON: No relevant comparison available. FINDINGS: LUNGS: No infiltrate, pneumothorax, or pleural effusion. MEDIASTINUM: No abnormal widening. BOWEL GAS PATTERN: Non-obstructed. Large amount of stool in the cecum which measures 10.7 cm transversely FREE AIR: None. CALCIFICATIONS: None significant. BONES: No fracture or visible bone lesion. Bilateral hip arthroplasty OTHER: Negative. XR/XR acute abdomen series IMPRESSION: Clear lungs Large amount of stool in the cecum Electronically authenticated by: HILDA SONG Date: 05/15/2024 12:04 Dictated By: Hilda Song M.D. Signed By: 05/15/247 DD/ 03 TD/TT: Word Processing Specialist:PROF Gary(COMP METB) Reviewed date:05/15/2024 07:51:13 PM Interpretation: Performing Lab: Notes/Report: The [facility] ,Bjkowl080231-815 mmol/LPotassium4.63.5-5.1 mmol/URkcytlvv62875-962 mmol/LCarbon Odvkqiq75.621.0-32.0 mmol/LAnion Gap10.1Oebwdmh01025-215 mg/dLBlood Urea Nitrogen7.07.0-18.0 mg/dLCreatinine1.010.70-1.30 mg/dLEstimated GFR ( Casi>60>=60 mL/min/1.73m 2Estimated GFR (Non- Suha>60>=60 mL/min/1.73m 2BUN Creatinine Ratio6.7Bmswppi3.88.5-10.1 mg/dLBilirubin Total0.60.2-1.0 mg/dL Aspartate Amino Oiunucrtlce5840-98 U/LAlanine Racqoqbhveaihust0421-59 U/L Alkaline Fxwotxlxfjh8446-068 U/LTotal Protein7.76.4-8.2 g/dLAlbumin Level3.43.4- 5.0 g/dLGlobulin4.3Albumin Globulin Ratio0.8Performing Lab:see noteML - [facility] LBCBC AUTO DIFF Reviewed date:02/21/2025 01:06:04 PM Interpretation: Performing Lab: Notes/Report: [facility] ,White Blood Count5.74.0-11.0 10 3/uLRed Blood Count3.694.70-6.10 10 6/uL Pdeqbumrpv24.814.0-18.0 g/pNOxpodcomzk80.442.0-54.0 %Mean Corpuscular Lqcwav80.6 80.0-94.0 fLMean Corpuscular Pldzokkecc77.025.9-34.0 pgMean Corpuscular HGB Conc 32.429.9-35.2 g/dLRed Cell Distribution Width13.511.0-15.0 %Platelet Wuiob754 150-450 10 3/uLMean Platelet Oxtkea43.29.5-13.5 fLNeutrophils Percent Auto80.2 43.0-75.0 %Lymphocytes Percent Auto14.520.5-60.0 %Monocytes Percent Auto3.71.7- 12.0 %Eosinophils Percent Auto1.00.9-7.0 %Basophils Percent Auto0.30.2-2.0 % Immature Granulocytes Pct Auto0.30.0-0.5 %Neutrophils Absolute Auto4.61.4-6.5 10 3/uLLymphocytes Absolute Auto0.81.2-3.8 10 3/uLMonocytes Absolute Auto0.20.3-0.8 10 3/uLEosinophils Absolute Auto0.10.0-0.7 10 3/uLBasophils Absolute Auto0.00.0- 0.1 10 3/uLImmature Granulocytes Abs Auto0.020.00-0.03 10 3/uLPerforming Lab:see noteML - [facility] LBLIPASE Reviewed date:05/15/2024 07:51:13 PM Interpretation: Performing Lab: Notes/Report: [facility] ,Tijtii31.016.0-77.0 U/LPerforming Lab:see noteML - [facility] LBCBC AUTO DIFF Reviewed date:05/15/2024 07:51:13 PM Interpretation: Performing Lab: Notes/Report: [facility] ,White Blood Count9.64.0-11.0 10 3/uLRed Blood Count4.814.70-6.10 10 6/uL Volmkgrfpm40.514.0-18.0 g/xCOntwdbeuyu58.342.0-54.0 %Mean Corpuscular Okrkxm21.1 80.0-94.0 fLMean Corpuscular Wmcwgznytf01.125.9-34.0 pgMean Corpuscular HGB Conc 32.729.9-35.2 g/dLRed Cell Distribution Width17.011.0-15.0 %Platelet Urmqu834 150-450 10 3/uLMean Platelet Qjyioj27.69.5-13.5 fLNeutrophils Percent Auto77.9 43.0-75.0 %Lymphocytes Percent Auto11.620.5-60.0 %Monocytes Percent Auto9.01.7- 12.0 %Eosinophils Percent Auto0.80.9-7.0 %Basophils Percent Auto0.50.2-2.0 % Immature Granulocytes Pct Auto0.20.0-0.5 %Neutrophils Absolute Auto7.51.4-6.5 10 3/uLLymphocytes Absolute Auto1.11.2-3.8 10 3/uLMonocytes Absolute Auto0.90.3-0.8 10 3/uLEosinophils Absolute Auto0.10.0-0.7 10 3/uLBasophils Absolute Auto0.10.0- 0.1 10 3/uLImmature Granulocytes Abs Auto0.020.00-0.03 10 3/uLPerforming Lab:see noteML - [facility] LBPROF 14(COMP METB) Reviewed date:05/15/2024 07:51:13 PM Interpretation: Performing Lab: Notes/Report: [facility] ,Bkovwo430381-850 mmol/LPotassium4.13.5-5.1 mmol/BBkwjqmlk24327-281 mmol/LCarbon Wfqsjya22.921.0-32.0 mmol/LAnion Gap10.3Rvqeoci34741-652 mg/dLBlood Urea Jijsrzrj93.07.0-18.0 mg/dLCreatinine1.080.70-1.30 mg/dLEstimated GFR ( Casi>60>=60 mL/min/1.73m 2Estimated GFR (Non- Suha>60>=60 mL/min/1.73m 2BUN Creatinine Ratio11.3Rinttvk8.38.5-10.1 mg/dLBilirubin Total0.40.2-1.0 mg/dL Aspartate Amino Pbcwzdgolyk6186-71 U/LAlanine Eolukvrkswusdjma92985-65 U/L Alkaline Tpxfegxysld2924-627 U/LTotal Protein7.16.4-8.2 g/dLAlbumin Level3.13.4- 5.0 g/dLGlobulin4.0Albumin Globulin Ratio0.8Performing Lab:see noteML - [facility] LBBlood Culture 1 Reviewed date:03/01/2025 06:03:20 PM Interpretation: Performing Lab: Notes/Report: [facility] ,Blood Culture 1See Below For Report O:KLEBAE Isolated Organism: 1.1 Antibiotic Interpretation PARTH Status Blood Culture 1BOTH AEROBIC AND ANAEROBIC BOTTLES WENT OFF POSITIVE O:KLEBAE Isolated Organism: 1.1 Antibiotic Interpretation PARTH Status Blood Culture 1GRAM STAIN: GRAM NEGATIVE BACILLI O:KLEBAE Isolated Organism: 1.1 Antibiotic Interpretation PARTH Status Blood Culture 1BCID PERFORMED ON SET #1: O:KLEBAE Isolated Organism: 1.1 Antibiotic Interpretation PARTH Status Blood Culture 1ENTEROBACTERALES O:KLEBAE Isolated Organism: 1.1 Antibiotic Interpretation PARTH Status Blood Culture 1KLEBSIELLA AEROGENES O:KLEBAE Isolated Organism: 1.1 Antibiotic Interpretation PARTH Status Blood Culture 1See Below For Report O:KLEBAE Isolated Organism: 1.1 Antibiotic Interpretation PARTH Status Blood Culture 1Amikacin S F O:KLEBAE Isolated Organism: 1.1 Antibiotic Interpretation PARTH Status Blood Culture 1Aztreonam I F O:KLEBAE Isolated Organism: 1.1 Antibiotic Interpretation PARTH Status Blood Culture 1Ceftazidime I F O:KLEBAE Isolated Organism: 1.1 Antibiotic Interpretation PARTH Status Blood Culture 1Ceftazidime/Avibactam S F O:KLEBAE Isolated Organism: 1.1 Antibiotic Interpretation PARTH Status Blood Culture 1Ciprofloxacin R F O:KLEBAE Isolated Organism: 1.1 Antibiotic Interpretation PARTH Status Blood Culture 1Ertapenem S F O:KLEBAE Isolated Organism: 1.1 Antibiotic Interpretation PARTH Status Blood Culture 1Gentamicin S F O:KLEBAE Isolated Organism: 1.1 Antibiotic Interpretation PARTH Status Blood Culture 1Levofloxacin R F O:KLEBAE Isolated Organism: 1.1 Antibiotic Interpretation PARTH Status Blood Culture 1Meropenem S F O:KLEBAE Isolated Organism: 1.1 Antibiotic Interpretation PARTH Status Blood Culture 1Meropenem/Vaborbactam S F O:KLEBAE Isolated Organism: 1.1 Antibiotic Interpretation PARTH Status Blood Culture 1Tetracycline S F O:KLEBAE Isolated Organism: 1.1 Antibiotic Interpretation PARTH Status Blood Culture 1Tobramycin S F O:KLEBAE Isolated Organism: 1.1 Antibiotic Interpretation PARTH Status Blood Culture 1Cefepime S F O:KLEBAE Isolated Organism: 1.1 Antibiotic Interpretation PARTH Status Blood Culture 1Ceftriaxone I F O:KLEBAE Isolated Organism: 1.1 Antibiotic Interpretation PARTH Status Blood Culture 1Cefuroxime R F O:KLEBAE Isolated Organism: 1.1 Antibiotic Interpretation PARTH Status Blood Culture 1Piperacillin/Tazobactam I F O:KLEBAE Isolated Organism: 1.1 Antibiotic Interpretation PARTH Status Blood Culture 1Trimethoprim/Sulfa S F O:KLEBAE Isolated Organism: 1.1 Antibiotic Interpretation PARTH Status Performing Lab:see note ML - [facility] LB SEE REPORT - Screen Printing Paster Id information not found for OBX-specific editor producer legend CBC AUTO DIFF Reviewed date:05/15/2024 07:51:13 PM Interpretation: Performing Lab: Notes/Report: [facility] ,White Blood Count6.74.0-11.0 10 3/uLRed Blood Count4.274.70-6.10 10 6/uL Qamernmxdy31.314.0-18.0 g/tLAbeijthgxn08.642.0-54.0 %Mean Corpuscular Rotfzi95.4 80.0-94.0 fLMean Corpuscular Xjqypsvfup73.825.9-34.0 pgMean Corpuscular HGB Conc 31.929.9-35.2 g/dLRed Cell Distribution Width12.811.0-15.0 %Platelet Iepbe676 150-450 10 3/uLMean Platelet Unubgk35.29.5-13.5 fLNeutrophils Percent Auto61.5 43.0-75.0 %Lymphocytes Percent Auto23.320.5-60.0 %Monocytes Percent Auto11.41.7- 12.0 %Eosinophils Percent Auto2.70.9-7.0 %Basophils Percent Auto1.00.2-2.0 % Immature Granulocytes Pct Auto0.10.0-0.5 %Neutrophils Absolute Auto4.11.4-6.5 10 3/uLLymphocytes Absolute Auto1.61.2-3.8 10 3/uLMonocytes Absolute Auto0.80.3-0.8 10 3/uLEosinophils Absolute Auto0.20.0-0.7 10 3/uLBasophils Absolute Auto0.10.0- 0.1 10 3/uLImmature Granulocytes Abs Auto0.010.00-0.03 10 3/uLPerforming Lab:see noteML - [facility] LBCEA Reviewed date:02/21/2025 01:06:04 PM Interpretation: Performing Lab: Notes/Report: [facility] ,CEA3.30.0-4.7 ng/mL Nonsmokers <3.9 Smokers <5.6 [employer] Electrochemiluminescence Immunoassay (ECLIA) Values obtained with different assay methods or kits cannot be used interchangeably. Results cannot be interpreted as absolute evidence of the presence or absence of malignant disease. Performed at: [address] [id number] Professor Sculpture: Hadyer Hill PhD, Phone: [phone] Performing Lab:see noteLake District HospitalCBC AUTO DIFF Reviewed date:02/21/2025 01:06:04 PM Interpretation: Performing Lab: Notes/Report: [facility] ,White Blood Count12.44.0-11.0 10 3/uLRed Blood Count3.424.70-6.10 10 6/uL Bkseaxmvwx65.114.0-18.0 g/xOAdrkfwbmrp01.442.0-54.0 %Mean Corpuscular Zbaypt62.7 80.0-94.0 fLMean Corpuscular Wtoharxawi98.525.9-34.0 pgMean Corpuscular HGB Conc 33.229.9-35.2 g/dLRed Cell Distribution Width13.911.0-15.0 %Platelet Gfdkc160 150-450 10 3/uLMean Platelet Fjeupq59.59.5-13.5 fLPerforming Lab:see note - [facility] LBINFLUENZA A AND B AG Reviewed date:02/21/2025 01:06:04 PM Interpretation: Performing Lab: Notes/Report: [facility] ,Influenza Virus A AntigenNegative Negative for Flu A protein antigen. Infection due to Flu A cannot be ruled out. Flu A antigen in the sample may be below the detection limit of the test. Influenza Virus B AntigenNegative Negative for Flu B protein antigen. Infection due to Flu B cannot be ruled out. Flu B antigen in the sample may be below the detection limit of the test. Performing Lab:see noteML - [facility] LBLACTATE or LACTIC ACID Reviewed date:02/21/2025 01:06:04 PM Interpretation: Performing Lab: Notes/Report: [facility] ,Lactate/Lactic Acid1.60.4-2.0 mmol/LPerforming Lab:see note - [facility] LBPROF 14(COMP METB) Reviewed date:02/21/2025 01:06:04 PM Interpretation: Performing Lab: Notes/Report: [facility] ,Vqtvwk859547-616 mmol/LPotassium4.03.5-5.1 mmol/XZqwflpvp0518-437 mmol/LCarbon Cikmcbp34.921.0-32.0 mmol/LAnion Gap13.1Pdpxarq77872-330 mg/dLBlood Urea Nomurwfj67.07.0-18.0 mg/dLCreatinine1.320.70-1.30 mg/dLEstimated GFR ( Casi>60>=60 mL/min/1.73m 2Estimated GFR (Non- Ame57>=60 mL/min/1.73m 2 BUN Creatinine Ratio10.1Itscasb8.78.5-10.1 mg/dLBilirubin Total1.00.2-1.0 mg/dL Aspartate Amino Aeqdnduzofu2874-06 U/LAlanine Opxxcqfooychytzp6081-51 U/L Alkaline Csylisdkzwu64208-808 U/LTotal Protein7.86.4-8.2 g/dLAlbumin Level2.8 3.4-5.0 g/dLGlobulin5.0Albumin Globulin Ratio0.6Performing Lab:see noteML - [facility] LBManual Differential Reviewed date:02/21/2025 01:06:04 PM Interpretation: Performing Lab: Notes/Report: [facility] ,Segmented Neutrophils % Alwmpy55.043.0-75.0Lymphocytes Percent Manual5.020.5- 60.0 %Monocytes Percent Manual9.01.7-12.0 %Eosinophils Percent Manual3.00.9-7.0 %Basophils Percent Manual1.00.2-2.0 %Atypical Lymphocytes % Manual3.0Segmented Neut Absolute Manual9.791.4-6.5 10 3/uLLymphocytes Absolute Manual0.621.20-3.80 10 3/uLMonocytes Absolute Manual1.110.30-0.80 10 3/uLEosinophils Absolute Manual 0.370.00-0.70 10 3/uLBasophils Abs Manual0.120.00-0.10 10 3/uLAtypical Lymphocytes Abs Man0.37Performing Lab:see noteML - [facility] LB SARS-CoV-2 Ag* Reviewed date:02/21/2025 01:06:04 PM Interpretation: Performing Lab: Notes/Report: [facility] ,SARS-CoV-2 AgNEGATIVENEGATIVE This test has not been FDA cleared or approved, but has been authorized by the FDA under an Emergency Use Authorization (EUA) for use by authorized laboratories certified under CLIA that meet the requirements to perform moderate or high complexity testing. This test has been authorized only for the detection of proteins from SARS-CoV-2, not for any other viruses or pathogens. The emergency use of this test is authorized for the duration of the declaration that circumstances exist justifying the authorization of emergency use of in vitro diagnostic tests for detection and/or diagnosis of Covid-19 under section 564(b)(1) of the Act, 21 U.S.C. 360bbb-3(b)(1), unless the declaration is terminated or authorization is revoked sooner. Performing Lab:see noteML - [facility] LBUA Micro, reflex to culture Reviewed date:02/21/2025 01:06:04 PM Interpretation: Performing Lab: Notes/Report: [facility] ,Color UrineYELLOWYELLOWClarity UrineCLEARCLEARSpecific [place] Urine<=1.005 1.005-1.025pH Urine5.55.0-9.0Protein UrineNEGATIVENEG/TRACE mg/dLGlucose Urine UANEGATIVENEGATIVE mg/dLBilirubin UrineNEGATIVENEGATIVEKetones UrineNEGATIVE NEGATIVE mg/dLBlood UrineTRACE-INEGATIVENitrite UrineNEGATIVENEGATIVE Urobilinogen Urine0.20.2-1.0 EU/dLLeukocyte Esterase UrineNEGATIVENEGATIVEWBC Urine5-10NONE SEEN #/HPFRBC UrineNONE SEEN0-2 #/HPFBacteria UrineTRACENONE SEEN #/HPFMucus UrineNONE SEENNONE SEENSquamous Epithelial Cell UrineNONE SEEN NONE/RARE #/LPFCrystals Seen?None SeenNone Seen #/HPFCast Seen?NONE SEENNONE SEEN #/LPFUrine Culture IndicatedYES-FRMCPerforming Lab:see noteML - [facility] LBUrine Culture - [facility] Reviewed date:02/24/2025 12:47:39 PM Interpretation: Performing Lab: Notes/Report: [facility] ,Urine Culture - FRGOLE[facility]ee Below For Report No Growth 2 Days Urine Culture - FR Urine Culture - FR No Growth 2 Days Urine Culture - FR Urine Culture - FRMCTesting performed at [facility] No Growth 2 Days Urine Culture - FR Urine Culture - [id number] [place] [address] No Growth 2 Days Urine Culture - [facility] Performing Lab:see noteML - [facility] LBCT CHEST W CON Reviewed date:02/22/2025 12:37:09 PM Interpretation: Performing Lab: Notes/Report: Source Facility: [place] [address] [place] [address] CT Scan Report Signed Patient: PIPER RODRÍGUEZ MR#: [id number] : 1970 Acct:[id number] Age/Sex: 55 / M ADM Date: 02/20/25 Loc: MS 204-[address]: Bob Darby M.D. Ordering Physician: Bob Darby M.D. Date of Service: 02/21/25 Procedure(s): CT chest w con Accession Number(s): [id number] cc: Delta Pratt M.D. [place] [id number] Patient Name: PIPER RODRÍGUEZ MRN: [id number] date: 1970 Sex: M Assigned Patient Location: MS Current Patient Location: Accession/Order Number: [id number] Exam Date: 02/21/2025 23:59 Report Date: 02/22/2025 10:44 At the request of: BOB DARBY MD Procedure: CT chest w con CT CHEST WITH INTRAVENOUS CONTRAST: CLINICAL HISTORY: bactremia,cavity on CtA/P. Hx colon CA ? Mets COMPARISON: 01/12/[address] abdomen 02/21/2025 TECHNIQUE: Spiral images were obtained through the chest following intravenous administration of 100 mL of Omnipaque 300. Images were reviewed using both narrow and wide window settings. This CT exam was performed using one or more following dose reduction techniques: Automated exposure control, adjustment of the mA and/or kV according to patient size, or use of iterative reconstruction technique. There is a right-sided Wiivtd-r-Zfdi catheter. The heart is top normal in size. No pericardial effusion is present. No aortic aneurysm or dissection is seen. There are tiny nonpathologic mediastinal lymph nodes. There are similar nonpathologic mediastinal and hilar lymph nodes. Minor gynecomastia is seen. There are tiny endplate spurs. A small intrapulmonary lymph node is again visualized on the right. There are multiple developing irregular nodular opacities on both sides, new since the comparison chest CT. These correlate with the recent abdominal CT. The largest is at the right middle lobe measuring approximately 2.3 cm in size. This may have minimal cavitation. There is also a small nodule within the right lower lobe adjacent to the hemidiaphragm that also appears cavitary. There is no pleural effusion or pneumothorax. Limited imaging through the upper abdomen shows anastomotic suture at the hepatic flexure. CT/CT chest w con IMPRESSION: THE FOCAL IRREGULAR OPACITIES, SOME WITH CAVITATION THAT ARE NEW SINCE DECEMBER 2024. THESE ARE PROBABLY INFECTIOUS OR INFLAMMATORY HOWEVER FOLLOW-UP TO RESOLUTION IS RECOMMENDED. Impression dictated by: Zeynep Mccoy M.D. 02/22/2025 10:44 AM Dictation Location: [place] [address] Electronically authenticated by: [id number] Y Date: 02/22/2025 10:44 Dictated By: Zeynep Mccoy M.D. Signed By: 02/22/25 1046 DD/ 1044 TD/TT: Word Processing Specialist:CRP Reviewed date:02/23/2025 11:51:18 AM Interpretation: Performing Lab: Notes/Report: [facility] ,C Reactive Protein8.34<=0.50 mg/dLPerforming Lab:see noteML - [facility] LBCBC AUTO DIFF Reviewed date:02/24/2025 12:47:39 PM Interpretation: Performing Lab: Notes/Report: [facility] ,White Blood Count6.64.0-11.0 10 3/uLRed Blood Count3.484.70-6.10 10 6/uL Aaagwdgkii02.314.0-18.0 g/dASkmwopvlob03.242.0-54.0 %Mean Corpuscular Xkscte34.4 80.0-94.0 fLMean Corpuscular Tdbchyaohj65.525.9-34.0 pgMean Corpuscular HGB Conc 34.029.9-35.2 g/dLRed Cell Distribution Width13.311.0-15.0 %Platelet Qtmoy014 150-450 10 3/uLMean Platelet Uiyhrd66.39.5-13.5 fLNeutrophils Percent Auto67.8 43.0-75.0 %Lymphocytes Percent Auto20.520.5-60.0 %Monocytes Percent Auto7.91.7- 12.0 %Eosinophils Percent Auto2.70.9-7.0 %Basophils Percent Auto0.50.2-2.0 % Immature Granulocytes Pct Auto0.60.0-0.5 %Neutrophils Absolute Auto4.51.4-6.5 10 3/uLLymphocytes Absolute Auto1.41.2-3.8 10 3/uLMonocytes Absolute Auto0.50.3-0.8 10 3/uLEosinophils Absolute Auto0.20.0-0.7 10 3/uLBasophils Absolute Auto0.00.0- 0.1 10 3/uLImmature Granulocytes Abs Auto0.040.00-0.03 10 3/uLPerforming Lab:see noteML - [facility] LBCBC AUTO DIFF Reviewed date:02/25/2025 02:16:13 PM Interpretation: Performing Lab: Notes/Report: [facility] ,White Blood Count5.84.0-11.0 10 3/uLRed Blood Count3.204.70-6.10 10 6/uL Ofhqknaakq21.314.0-18.0 g/vYLhvdtktzgr55.642.0-54.0 %Mean Corpuscular Ropklq32.6 80.0-94.0 fLMean Corpuscular Tkifsvsgll53.225.9-34.0 pgMean Corpuscular HGB Conc 33.729.9-35.2 g/dLRed Cell Distribution Width13.211.0-15.0 %Platelet Tocam883 150-450 10 3/uLMean Platelet Mogieh00.49.5-13.5 fLNeutrophils Percent Auto61.6 43.0-75.0 %Lymphocytes Percent Auto23.920.5-60.0 %Monocytes Percent Auto9.71.7- 12.0 %Eosinophils Percent Auto3.60.9-7.0 %Basophils Percent Auto0.50.2-2.0 % Immature Granulocytes Pct Auto0.70.0-0.5 %Neutrophils Absolute Auto3.61.4-6.5 10 3/uLLymphocytes Absolute Auto1.41.2-3.8 10 3/uLMonocytes Absolute Auto0.60.3-0.8 10 3/uLEosinophils Absolute Auto0.20.0-0.7 10 3/uLBasophils Absolute Auto0.00.0- 0.1 10 3/uLImmature Granulocytes Abs Auto0.040.00-0.03 10 3/uLPerforming Lab:see noteML - [facility] LBPROF CHEM 8 (BAS METB) Reviewed date:02/25/2025 02:16:13 PM Interpretation: Performing Lab: Notes/Report: [facility] ,Pntjqb904817-366 mmol/LPotassium3.43.5-5.1 mmol/GTmpbinrn89979-898 mmol/LCarbon Qxwunvu29.221.0-32.0 mmol/LAnion Gap11.0Fevrfiz75915-298 mg/dLBlood Urea Nitrogen5.07.0-18.0 mg/dLCreatinine0.770.70-1.30 mg/dLEstimated GFR ( Casi>60>=60 mL/min/1.73m 2Estimated GFR (Non- Suha>60>=60 mL/min/1.73m 2BUN Creatinine Ratio6.4Lqmcszk4.88.5-10.1 mg/dLPerforming Lab:see note - [facility] LBPROF CHEM 8 (BAS METB) Reviewed date:03/01/2025 06:03:20 PM Interpretation: Performing Lab: Notes/Report: [facility] ,Vszbur558776-544 mmol/LPotassium3.73.5-5.1 mmol/MWngowwyr36263-271 mmol/LCarbon Oudtwtc42.421.0-32.0 mmol/LAnion Gap9.5Kgusavg89944-388 mg/dLBlood Urea Nitrogen 10.07.0-18.0 mg/dLCreatinine1.050.70-1.30 mg/dLEstimated GFR ( Casi>60 >=60 mL/min/1.73m 2Estimated GFR (Non- Suha>60>=60 mL/min/1.73m 2BUN Creatinine Ratio9.7Tkjkxre9.88.5-10.1 mg/dLPerforming Lab:see note - [facility] LBECG 12 lead Reviewed date:03/07/2025 07:36:12 PM Interpretation: Performing Lab: Notes/Report: Source Facility: [place] [address] [place] [address] Electrocardiograph Report Signed Patient: PIPER RODRÍGUEZ MR#: [id number] : 1970 Acct:[id number] Age/Sex: 55 / M ADM Date: 03/07/25 Loc: PST Attending Dr: Jone Edmond M.D. Ordering Physician: Jone Edmond M.D. 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 Measurements Intervals [place] Rate: 83 P: 20 MD: 181 QRS: -30 QRSD: 98 T: 18 QT: 388 QTc: 457 Interpretive Statements SINUS RHYTHM POSSIBLE LEFT ATRIAL ENLARGEMENT [-0.1mV P WAVE IN V1/V2] BORDERLINE LEFT AXIS DEVIATION [QRS AXIS < -20] Compared to ECG 08/22/2024 14:37:15 Sinus bradycardia no longer present Myocardial infarct finding no longer present Electronically Signed On 03-07-2025 18:04:16 EDT by FELICIANO HANSEN M.D. Dictated By: FELICIANO HANSEN Signed By: 03/07/25 1804 DD/ 1105 TD/TT: Word Processing Specialist:CBC AUTO DIFF Reviewed date:03/08/2025 07:02:46 PM Interpretation: Performing Lab: Notes/Report: [facility] ,White Blood Count6.74.0-11.0 10 3/uLRed Blood Count4.054.70-6.10 10 6/uL Mzyqiiqnwk43.014.0-18.0 g/mBXuzjvhorty73.342.0-54.0 %Mean Corpuscular Jjgqda40.0 80.0-94.0 fLMean Corpuscular Xbvgondjwc34.125.9-34.0 pgMean Corpuscular HGB Conc 33.129.9-35.2 g/dLRed Cell Distribution Width13.911.0-15.0 %Platelet Cwgsk525 150-450 10 3/uLMean Platelet Qjyezm53.89.5-13.5 fLNeutrophils Percent Auto50.8 43.0-75.0 %Lymphocytes Percent Auto32.520.5-60.0 %Monocytes Percent Auto8.71.7- 12.0 %Eosinophils Percent Auto6.40.9-7.0 %Basophils Percent Auto1.20.2-2.0 % Immature Granulocytes Pct Auto0.40.0-0.5 %Neutrophils Absolute Auto3.41.4-6.5 10 3/uLLymphocytes Absolute Auto2.21.2-3.8 10 3/uLMonocytes Absolute Auto0.60.3-0.8 10 3/uLEosinophils Absolute Auto0.40.0-0.7 10 3/uLBasophils Absolute Auto0.10.0- 0.1 10 3/uLImmature Granulocytes Abs Auto0.030.00-0.03 10 3/uLPerforming Lab:see noteML - [facility] LBCRP Reviewed date:03/08/2025 07:02:46 PM Interpretation: Performing Lab: Notes/Report: [facility] ,C Reactive Protein<0.50<=0.50 mg/dLPerforming Lab:see note - [facility] LBPROF CHEM 8 (BAS METB) Reviewed date:03/08/2025 07:02:46 PM Interpretation: Performing Lab: Notes/Report: [facility] ,Ulnkma295753-767 mmol/LPotassium4.23.5-5.1 mmol/BNddoodct45743-273 mmol/LCarbon Wnrzjtu23.621.0-32.0 mmol/LAnion Gap10.9Crinrwj14852-676 mg/dLBlood Urea Yvsbwpny65.07.0-18.0 mg/dLCreatinine0.840.70-1.30 mg/dLEstimated GFR ( Casi>60>=60 mL/min/1.73m 2Estimated GFR (Non- Suha>60>=60 mL/min/1.73m 2BUN Creatinine Ratio15.0Dznabfa4.08.5-10.1 mg/dLPerforming Lab:see noteML - [facility] LBLIPID PROFILE Reviewed date:10/10/2024 08:21:39 PM Interpretation: Performing Lab: Notes/Report: [facility] ,Jpqzjunfmhovw90<=150 mg/tORtvmgehljso492<=200 mg/dLHDL Usrvmkfmabl9115-21 mg/dL > or =60 mg/dl - LOW CARDIOVASCULAR RISK <40 mg/dl - HIGH CARDIOVASCULAR RISK LDL Cholesterol Vaisadtxez59.0 <100 mg/dl OPTIMAL 100-129 mg/dl NEAR OR ABOVE OPTIMAL 130-159 mg/dl BORDERLINE HIGH 160-189 mg/dl HIGH >190 mg/dl VERY HIGH VLDL CHOLESTEROL8.6Chol HDL Ratio2.3 3.3 - 4.4 LOW RISK 4.4 - 7.1 AVERAGE RISK 7.1 - 11.0 MODERATE RISK >11.0 HIGH RISK Performing Lab:see noteML - [facility] LBGLYCOHEMOGLOBIN A1C Reviewed date:10/10/2024 08:21:39 PM Interpretation: Performing Lab: Notes/Report: [facility] ,Glycohemoglobin A1C5.84.5-6.2 % ADA RECOMMENDED LIMIT 4.0 - 6.0 ADA THERAPEUTIC TARGET < 7.0 ACTION SUGGESTED > 7.0 Estimated Average Pcuyybc870Irftnqyhbg Lab:see noteML - [facility] LB UA DIP NONAUTO WO MICRO (89993) - IN OFFICE Reviewed date:02/21/2025 01:06:04 PM Interpretation: Performing Lab: Notes/Report: COLORyellowCLARITYclearGLUCOSEnBILIRUBINnKETONEnSPECIFIC GRAVITY1.623TADEDdUA6 SHTENYZ25SCOLDUZTMJNOaQTFIVSUiOAXCCXVES ESTERASEnPROF 14(COMP METB) Reviewed date:02/21/2025 01:06:04 PM Interpretation: Performing Lab: Notes/Report: [facility] ,Rdngce178575-010 mmol/LPotassium4.73.5-5.1 mmol/OJlqqoqia24222-674 mmol/LCarbon Yddgffd82.321.0-32.0 mmol/LAnion Gap14.8Hupvkho92745-660 mg/dLBlood Urea Ouhjkclt46.07.0-18.0 mg/dLCreatinine0.980.70-1.30 mg/dLEstimated GFR ( Casi>60>=60 mL/min/1.73m 2Estimated GFR (Non- Suha>60>=60 mL/min/1.73m 2BUN Creatinine Ratio12.3Fxlayff8.38.5-10.1 mg/dLBilirubin Total0.60.2-1.0 mg/dL Aspartate Amino Fvlaeiykvxv3853-89 U/LAlanine Kjokevrpjzcpbhfi9791-12 U/L Alkaline Zydgtvfnrja1899-058 U/LTotal Protein7.76.4-8.2 g/dLAlbumin Level3.23.4- 5.0 g/dLGlobulin4.5Albumin Globulin Ratio0.7Performing Lab:see noteML - [facility] LBCT abdomen pelvis w con Reviewed date:02/21/2025 01:06:05 PM Interpretation: Performing Lab: Notes/Report: Source Facility: [facility]-[address] [place] [address] [place] [address] CT Scan Report Signed Patient: PIPER RODRÍGUEZ MR#: [id number] : 1970 Acct:[id number] Age/Sex: 54 / M ADM Date: 09/26/24 Loc: CT Attending Dr: Franklin Esteves M.D. Ordering Physician: Franklin Esteves M.D. Date of Service: 09/26/24 Procedure(s): CT abdomen pelvis w con Accession Number(s): [id number] cc: Delta Pratt M.D. [place] [address] Patient Name: PIPER RODRÍGUEZ MRN: [id number]:[id number] date: 1970 Sex: M Assigned Patient Location: CT Current Patient Location: CT Accession/Order Number: [id number] Exam Date: 09/26/2024 14:18 Report Date: 09/26/2024 14:22 At the request of: FRANKLIN ESTEVES MD Procedure: CT abdomen pelvis w con CT CHEST, ABDOMEN AND PELVIS WITH INTRAVENOUS CONTRAST: CLINICAL HISTORY: Malignant Neoplasm Cecum, Nausea Vomiting, Anemia COMPARISON: CT chest, abdomen and pelvis 07/27/2023 TECHNIQUE: TECHNIQUE: Spiral images were obtained through the chest, abdomen and pelvis following the administration of IV contrast. This CT exam was performed using one or more following dose reduction techniques: Automated exposure control, adjustment of the mA and/or kV according to patient size, or use of iterative reconstruction technique. FINDINGS: CT chest: Mediastinum:Right-sided port is in place. Thoracic aorta appears normal in caliber. Pulmonary trunk appears nondilated. No pleural effusion. No lymphadenopathy. The esophagus is grossly unremarkable. Lungs:No consolidation pneumothorax or pleural effusion. Mild lung scarring. No suspicious pulmonary nodule seen on today's study. Soft tissues/Bones: No acute findings. Osseous structures demonstrate degenerative change. CT abdomen and pelvis: Organs:Hepatic steatosis. Gallbladder portal vein spleen pancreas and adrenal glands appear unremarkable. No enhancing renal mass or hydronephrosis. Abdominal aorta appears normal in caliber.[ GI: Stomach is grossly unremarkable. Small bowel appears nondilated. Right hemicolectomy changes. Remaining colon appears unremarkable.[ Pelvis:[Suboptimal evaluation due to streak hardware artifact from the patient's bilateral hip prostheses. No acute gross abnormality.] Peritoneum/Retroperitoneum:No free air or free fluid or lymphadenopathy.[ Abd wall/Bones:No acute findings. Osseous structures demonstrate degenerative change.[ CT/CT abdomen pelvis w con IMPRESSION: No evidence of tumor recurrence or metastatic disease within the chest, abdomen or pelvis. Impression dictated by: Grady Juarez Jr., D.O. 09/26/2024 2:22 PM Dictation Location: [place] [address] Electronically authenticated by: [id number] Y Date: 09/26/2024 14:22 Dictated By: Grady Juarez M.D. Signed By: 09/26/24 1424 DD/ 1422 TD/TT: Word Processing Specialist:CT CHEST W CON Reviewed date:02/21/2025 01:06:04 PM Interpretation: Performing Lab: Notes/Report: Source Facility: [place] [address] CT Scan Report Signed Patient: PIPER RODRÍGUEZ MR#: [id number] : 1970 Acct:[id number] Age/Sex: 54 / M ADM Date: 09/26/24 Loc: CT Attending Dr: Franklin Esteves M.D. Ordering Physician: Franklin Esteves M.D. Date of Service: 09/26/24 Procedure(s): CT chest w con Accession Number(s): [id number] cc: Delta Pratt M.D. [place] [address] Patient Name: PIPER RODRÍGUEZ MRN: [id number] date: 1970 Sex: M Assigned Patient Location: CT Current Patient Location: CT Accession/Order Number: [id number] Exam Date: 09/26/2024 14:18 Report Date: 09/26/2024 14:22 At the request of: FRANKLIN ESTEVES MD Procedure: CT abdomen pelvis w con CT CHEST, ABDOMEN AND PELVIS WITH INTRAVENOUS CONTRAST: CLINICAL HISTORY: Malignant Neoplasm Cecum, Nausea Vomiting, Anemia COMPARISON: CT chest, abdomen and pelvis 07/27/2023 TECHNIQUE: TECHNIQUE: Spiral images were obtained through the chest, abdomen and pelvis following the administration of IV contrast. This CT exam was performed using one or more following dose reduction techniques: Automated exposure control, adjustment of the mA and/or kV according to patient size, or use of iterative reconstruction technique. FINDINGS: CT chest: Mediastinum:Right-sided port is in place. Thoracic aorta appears normal in caliber. Pulmonary trunk appears nondilated. No pleural effusion. No lymphadenopathy. The esophagus is grossly unremarkable. Lungs:No consolidation pneumothorax or pleural effusion. Mild lung scarring. No suspicious pulmonary nodule seen on today's study. Soft tissues/Bones: No acute findings. Osseous structures demonstrate degenerative change. CT abdomen and pelvis: Organs:Hepatic steatosis. Gallbladder portal vein spleen pancreas and adrenal glands appear unremarkable. No enhancing renal mass or hydronephrosis. Abdominal aorta appears normal in caliber.[ GI: Stomach is grossly unremarkable. Small bowel appears nondilated. Right hemicolectomy changes. Remaining colon appears unremarkable.[ Pelvis:[Suboptimal evaluation due to streak hardware artifact from the patient's bilateral hip prostheses. No acute gross abnormality.] Peritoneum/Retroperitoneum:No free air or free fluid or lymphadenopathy.[ Abd wall/Bones:No acute findings. Osseous structures demonstrate degenerative change.[ CT/CT chest w con IMPRESSION: No evidence of tumor recurrence or metastatic disease within the chest, abdomen or pelvis. Impression dictated by: Grady Juarez Jr., RoderickOCj 09/26/2024 2:22 PM Dictation Location: [place] [address] Electronically authenticated by: [id number] Y Date: 09/26/2024 14:22 Dictated By: Grady Juarez M.D. Signed By: 09/26/24 1424 DD/ 1422 TD/TT: Word Processing Specialist:PROF Gary(COMP METB) Reviewed date:02/21/2025 01:06:05 PM Interpretation: Performing Lab: Notes/Report: [facility] ,Vebaqy283573-392 mmol/LPotassium4.63.5-5.1 mmol/RCgrgcfoy02744-848 mmol/LCarbon Twhwftm71.421.0-32.0 mmol/LAnion Gap15.1Llosdol09025-252 mg/dLBlood Urea Dnhgfqzg41.07.0-18.0 mg/dLCreatinine1.040.70-1.30 mg/dLEstimated GFR ( Casi>60>=60 mL/min/1.73m 2Estimated GFR (Non- Suha>60>=60 mL/min/1.73m 2BUN Creatinine Ratio9.9Sncrxad4.18.5-10.1 mg/dLBilirubin Total0.50.2-1.0 mg/dL Aspartate Amino Kdrolybjhvp0036-14 U/LAlanine Dwhpojntddythmcg8016-58 U/L Alkaline Zsqqcqtobni8817-354 U/LTotal Protein7.16.4-8.2 g/dLAlbumin Level3.23.4- 5.0 g/dLGlobulin3.9Albumin Globulin Ratio0.8Performing Lab:see noteML - [facility] LBCBC AUTO DIFF Reviewed date:02/21/2025 01:06:05 PM Interpretation: Performing Lab: Notes/Report: [facility] ,White Blood Count4.54.0-11.0 10 3/uLRed Blood Count4.004.70-6.10 10 6/uL Lqirpqxmqp23.314.0-18.0 g/bCPnaswqtywq95.942.0-54.0 %Mean Corpuscular Pbkhvx76.8 80.0-94.0 fLMean Corpuscular Rvryldioml45.825.9-34.0 pgMean Corpuscular HGB Conc 34.329.9-35.2 g/dLRed Cell Distribution Width17.111.0-15.0 %Platelet Ihgxh40277- 450 10 3/uLMean Platelet Eoneyb33.69.5-13.5 fLNeutrophils Percent Auto55.843.0- 75.0 %Lymphocytes Percent Auto26.520.5-60.0 %Monocytes Percent Auto14.71.7-12.0 %Eosinophils Percent Auto2.20.9-7.0 %Basophils Percent Auto0.40.2-2.0 %Immature Granulocytes Pct Auto0.40.0-0.5 %Neutrophils Absolute Auto2.51.4-6.5 10 3/uL Lymphocytes Absolute Auto1.21.2-3.8 10 3/uLMonocytes Absolute Auto0.70.3-0.8 10 3/uLEosinophils Absolute Auto0.10.0-0.7 10 3/uLBasophils Absolute Auto0.00.0-0.1 10 3/uLImmature Granulocytes Abs Auto0.020.00-0.03 10 3/uLPerforming Lab:see noteML - [facility] LBFREE T3 Reviewed date:10/10/2024 08:21:39 PM Interpretation: Performing Lab: Notes/Report: [facility] ,Free T33.192.18-3.98 pg/mLPerforming Lab:see noteML - [facility] LB PSA SCREENING Reviewed date:10/10/2024 08:21:39 PM Interpretation: Performing Lab: Notes/Report: [facility] ,Prostate Specific Antigen Scrn0.46<=4.00 ng/mLPerforming Lab:see noteML - [facility] LBCBC AUTO DIFF Reviewed date:02/21/2025 01:06:04 PM Interpretation: Performing Lab: Notes/Report: [facility] ,White Blood Count5.34.0-11.0 10 3/uLRed Blood Count4.634.70-6.10 10 6/uL Fdndqtgofp86.814.0-18.0 g/hNSkitlhihhy54.042.0-54.0 %Mean Corpuscular Yavmwt17.0 80.0-94.0 fLMean Corpuscular Zbsrnnobys82.025.9-34.0 pgMean Corpuscular HGB Conc 33.629.9-35.2 g/dLRed Cell Distribution Width14.611.0-15.0 %Platelet Mtgxv097 150-450 10 3/uLMean Platelet Volume9.79.5-13.5 fLNeutrophils Percent Auto65.6 43.0-75.0 %Lymphocytes Percent Auto18.920.5-60.0 %Monocytes Percent Auto11.21.7- 12.0 %Eosinophils Percent Auto2.90.9-7.0 %Basophils Percent Auto1.00.2-2.0 % Immature Granulocytes Pct Auto0.40.0-0.5 %Neutrophils Absolute Auto3.51.4-6.5 10 3/uLLymphocytes Absolute Auto1.01.2-3.8 10 3/uLMonocytes Absolute Auto0.60.3- 0.8 10 3/uLEosinophils Absolute Auto0.20.0-0.7 10 3/uLBasophils Absolute Auto0.1 0.0-0.1 10 3/uLImmature Granulocytes Abs Auto0.020.00-0.03 10 3/uLPerforming Lab:see noteML - [facility] LBMAGNESIUM Reviewed date:02/21/2025 01:06:04 PM Interpretation: Performing Lab: Notes/Report: [facility] ,Magnesium2.01.8-2.4 mg/dLPerforming Lab:see noteML - [facility] LB PROF 14(COMP METB) Reviewed date:02/21/2025 01:06:04 PM Interpretation: Performing Lab: Notes/Report: [facility] ,Cgbvzd165771-867 mmol/LPotassium5.13.5-5.1 mmol/WAqrjrscs3972-435 mmol/LCarbon Qgkomrz13.821.0-32.0 mmol/LAnion Gap16.4Lqazryz11070-150 mg/dLBlood Urea Ynmhfdpe29.07.0-18.0 mg/dLCreatinine0.920.70-1.30 mg/dLEstimated GFR ( Casi>60>=60 mL/min/1.73m 2Estimated GFR (Non- Suha>60>=60 mL/min/1.73m 2BUN Creatinine Ratio15.2Djwslna2.48.5-10.1 mg/dLBilirubin Total0.60.2-1.0 mg/dL Aspartate Amino Dvpowymvxhz9389-22 U/LAlanine Pogfhwzcwfjilhtt8237-24 U/L Alkaline Yorreqyjnrl9752-939 U/LTotal Protein8.06.4-8.2 g/dLAlbumin Level3.63.4- 5.0 g/dLGlobulin4.4Albumin Globulin Ratio0.8Performing Lab:see noteML - [facility] LBCEA Reviewed date:02/21/2025 01:06:04 PM Interpretation: Performing Lab: Notes/Report: [facility] ,CEA3.90.0-4.7 ng/mL Nonsmokers <3.9 Smokers <5.6 [employer] Electrochemiluminescence Immunoassay (ECLIA) Values obtained with different assay methods or kits cannot be used interchangeably. Results cannot be interpreted as absolute evidence of the presence or absence of malignant disease. Performed at: [address] [id number] Professor Sculpture: Hayder Hill PhD, Phone: [phone] Performing Lab:see noteLC - [facility] LBCBC AUTO DIFF Reviewed date:02/21/2025 01:06:04 PM Interpretation: Performing Lab: Notes/Report: [facility] ,White Blood Count4.54.0-11.0 10 3/uLRed Blood Count4.444.70-6.10 10 6/uL Mcbiwsurmy96.914.0-18.0 g/yUZkvgegizuo23.842.0-54.0 %Mean Corpuscular Eqktzk96.4 80.0-94.0 fLMean Corpuscular Ubotxmarqa41.625.9-34.0 pgMean Corpuscular HGB Conc 34.829.9-35.2 g/dLRed Cell Distribution Width13.711.0-15.0 %Platelet Hciff929 150-450 10 3/uLMean Platelet Sqfaqv74.49.5-13.5 fLNeutrophils Percent Auto57.8 43.0-75.0 %Lymphocytes Percent Auto25.820.5-60.0 %Monocytes Percent Auto11.31.7- 12.0 %Eosinophils Percent Auto4.20.9-7.0 %Basophils Percent Auto0.70.2-2.0 % Immature Granulocytes Pct Auto0.20.0-0.5 %Neutrophils Absolute Auto2.61.4-6.5 10 3/uLLymphocytes Absolute Auto1.21.2-3.8 10 3/uLMonocytes Absolute Auto0.50.3- 0.8 10 3/uLEosinophils Absolute Auto0.20.0-0.7 10 3/uLBasophils Absolute Auto0.0 0.0-0.1 10 3/uLImmature Granulocytes Abs Auto0.010.00-0.03 10 3/uLPerforming Lab:see noteML - [facility] LBPROF 14(COMP METB) Reviewed date:02/21/2025 01:06:06 PM Interpretation: Performing Lab: Notes/Report: [facility] ,Crknod974329-353 mmol/LPotassium5.53.5-5.1 mmol/IPybmlvam43271-924 mmol/LCarbon Egnttvh98.521.0-32.0 mmol/LAnion Gap13.9Xsclnzz87474-610 mg/dLBlood Urea Gvlvckfn01.07.0-18.0 mg/dLCreatinine1.110.70-1.30 mg/dLEstimated GFR ( Casi>60>=60 mL/min/1.73m 2Estimated GFR (Non- Suha>60>=60 mL/min/1.73m 2BUN Creatinine Ratio10.6Raqxvdm1.48.5-10.1 mg/dLBilirubin Total0.70.2-1.0 mg/dL Aspartate Amino Tusuuyhgkcb9022-81 U/LAlanine Jpgvhgbrrfnbmujd6880-69 U/L Alkaline Wdmzqihlsbf93751-397 U/LTotal Protein7.86.4-8.2 g/dLAlbumin Level3.7 3.4-5.0 g/dLGlobulin4.1Albumin Globulin Ratio0.9Performing Lab:see noteML - [facility] LBCBC AUTO DIFF Reviewed date:02/21/2025 01:06:06 PM Interpretation: Performing Lab: Notes/Report: [facility] ,White Blood Count5.84.0-11.0 10 3/uLRed Blood Count4.884.70-6.10 10 6/uL Ibyrrsozil67.914.0-18.0 g/hZZrhvtfkyak41.442.0-54.0 %Mean Corpuscular Cqilfa61.0 80.0-94.0 fLMean Corpuscular Hzehgooakh71.525.9-34.0 pgMean Corpuscular HGB Conc 33.629.9-35.2 g/dLRed Cell Distribution Width13.911.0-15.0 %Platelet Onqjb362 150-450 10 3/uLMean Platelet Qdvvcf45.59.5-13.5 fLNeutrophils Percent Auto59.8 43.0-75.0 %Lymphocytes Percent Auto20.020.5-60.0 %Monocytes Percent Auto10.81.7- 12.0 %Eosinophils Percent Auto8.00.9-7.0 %Basophils Percent Auto0.90.2-2.0 % Immature Granulocytes Pct Auto0.50.0-0.5 %Neutrophils Absolute Auto3.51.4-6.5 10 3/uLLymphocytes Absolute Auto1.21.2-3.8 10 3/uLMonocytes Absolute Auto0.60.3- 0.8 10 3/uLEosinophils Absolute Auto0.50.0-0.7 10 3/uLBasophils Absolute Auto0.1 0.0-0.1 10 3/uLImmature Granulocytes Abs Auto0.030.00-0.03 10 3/uLPerforming Lab:see noteML - [facility] LBPROF 14(COMP METB) Reviewed date:02/21/2025 01:06:04 PM Interpretation: Performing Lab: Notes/Report: [facility] ,Mvhbzk382463-979 mmol/LPotassium4.93.5-5.1 mmol/DSifyjxlv4998-211 mmol/LCarbon Ypjrfzc19.221.0-32.0 mmol/LAnion Gap16.7Tktyrri3994-590 mg/dLBlood Urea Nitrogen 10.07.0-18.0 mg/dLCreatinine0.730.70-1.30 mg/dLEstimated GFR ( Casi>60 >=60 mL/min/1.73m 2Estimated GFR (Non- Suha>60>=60 mL/min/1.73m 2BUN Creatinine Ratio13.7Ywkzvwt4.58.5-10.1 mg/dLBilirubin Total0.70.2-1.0 mg/dL Aspartate Amino Ojgzleujiuy0162-32 U/LAlanine Kmxlasxkjmomfwxk9707-72 U/L Alkaline Bpanuwwlpmj2783-848 U/LTotal Protein8.06.4-8.2 g/dLAlbumin Level3.73.4- 5.0 g/dLGlobulin4.3Albumin Globulin Ratio0.9Performing Lab:see noteML - [facility] LBCT CHEST W CON Reviewed date:02/21/2025 01:06:04 PM Interpretation: Performing Lab: Notes/Report: Source Facility: [place] [address] CT Scan Report Signed Patient: PIPER RODRÍGUEZ MR#: [id number] : 1970 Acct:[id number] Age/Sex: 54 / M ADM Date: 01/12/25 Loc: CT Attending Dr: Franklin Esteves M.D. Ordering Physician: Franklin Esteves M.D. Date of Service: 01/12/25 Procedure(s): CT chest w con Accession Number(s): [id number] cc: Delta Pratt M.D. [place] [address] Patient Name: PIPER RODRÍGUEZ MRN: [id number] date: 1970 Sex: M Assigned Patient Location: CT Current Patient Location: Accession/Order Number: [id number] Exam Date: 01/12/2025 08:09 Report Date: 01/12/2025 10:28 At the request of: FRANKLIN ESTEVES MD Procedure: CT abdomen pelvis w con CT CHEST, ABDOMEN AND PELVIS WITH INTRAVENOUS CONTRAST: CLINICAL HISTORY: Malignant Neoplasm Cecum, Nausea Vomiting, Anemia COMPARISON: 09/26/2024 TECHNIQUE: TECHNIQUE: Spiral images were obtained through the chest, abdomen and pelvis following the administration of IV contrast. This CT exam was performed using one or more following dose reduction techniques: Automated exposure control, adjustment of the mA and/or kV according to patient size, or use of iterative reconstruction technique. FINDINGS: CT chest: Mediastinum:Right-sided port is in place. Thoracic aorta is not aneurysmal. Pulmonary trunk appears nondilated. No pleural effusion. No lymphadenopathy. The esophagus is grossly unremarkable. Lungs:No consolidation pneumothorax or pleural effusion. Mild lung scarring. No suspicious pulmonary nodule seen on today's study. Soft tissues/Bones: No acute findings. Osseous structures demonstrate degenerative change. CT abdomen and pelvis: Organs:Fatty infiltration liver with scattered areas of wedge-shaped fatty sparing. Otherwise the gallbladder spleen pancreas and adrenal glands appear unremarkable. No enhancing renal mass or hydronephrosis. GI: Stomach is grossly unremarkable. Small bowel appears nondilated. Right hemicolectomy changes. Remaining colon appears unremarkable.[ Pelvis:[Artifact from hip prostheses degrades evaluation. Question anterior bladder wall thickening this could relate to under distention Peritoneum/Retroperitoneum:No free air or free fluid or lymphadenopathy.[Aorta is nonaneurysmal with ylet-dc-btzzdaab plaque. Abd wall/Bones:No acute findings. Osseous structures demonstrate degenerative change.[No suspicious osseous lesion. Bilateral hip arthroplasties. CT/CT chest w con IMPRESSION: No evidence of tumor recurrence or metastatic disease Anterior bladder wall thickening likely due to under distention. Impression dictated by: Ronan Roper M.D. 01/12/2025 10:28 AM Dictation Location: [place] [address] Electronically authenticated by: [id number] Y Date: 01/12/2025 10:28 Dictated By: Ronan Roper M.D. Signed By: 01/15/25 0959 DD/ 1028 TD/TT: Word Processing Specialist:CT abdomen pelvis w con Reviewed date:02/21/2025 01:06:04 PM Interpretation: Performing Lab: Notes/Report: Source Facility: [place] [address] [place] [address] CT Scan Report Signed Patient: PIPER RODRÍGUEZ MR#: [id number] : 1970 Acct:[id number] Age/Sex: 54 / M ADM Date: 01/12/25 Loc: CT Attending Dr: Franklin Esteves M.D. Ordering Physician: Franklin Esteves M.D. Date of Service: 01/12/25 Procedure(s): CT abdomen pelvis w con Accession Number(s): [id number] cc: Delta Pratt M.D. [address] [address] Patient Name: PIPER RODRÍGUEZ MRN: [id number] date: 1970 Sex: M Assigned Patient Location: CT Current Patient Location: Accession/Order Number: [id number] Exam Date: 01/12/2025 08:09 Report Date: 01/12/2025 10:28 At the request of: FRANKLIN ESTEVES MD Procedure: CT abdomen pelvis w con CT CHEST, ABDOMEN AND PELVIS WITH INTRAVENOUS CONTRAST: CLINICAL HISTORY: Malignant Neoplasm Cecum, Nausea Vomiting, Anemia COMPARISON: 09/26/2024 TECHNIQUE: TECHNIQUE: Spiral images were obtained through the chest, abdomen and pelvis following the administration of IV contrast. This CT exam was performed using one or more following dose reduction techniques: Automated exposure control, adjustment of the mA and/or kV according to patient size, or use of iterative reconstruction technique. FINDINGS: CT chest: Mediastinum:Right-sided port is in place. Thoracic aorta is not aneurysmal. Pulmonary trunk appears nondilated. No pleural effusion. No lymphadenopathy. The esophagus is grossly unremarkable. Lungs:No consolidation pneumothorax or pleural effusion. Mild lung scarring. No suspicious pulmonary nodule seen on today's study. Soft tissues/Bones: No acute findings. Osseous structures demonstrate degenerative change. CT abdomen and pelvis: Organs:Fatty infiltration liver with scattered areas of wedge-shaped fatty sparing. Otherwise the gallbladder spleen pancreas and adrenal glands appear unremarkable. No enhancing renal mass or hydronephrosis. GI: Stomach is grossly unremarkable. Small bowel appears nondilated. Right hemicolectomy changes. Remaining colon appears unremarkable.[ Pelvis:[Artifact from hip prostheses degrades evaluation. Question anterior bladder wall thickening this could relate to under distention Peritoneum/Retroperitoneum:No free air or free fluid or lymphadenopathy.[Aorta is nonaneurysmal with tekv-mo-eiemwsea plaque. Abd wall/Bones:No acute findings. Osseous structures demonstrate degenerative change.[No suspicious osseous lesion. Bilateral hip arthroplasties. CT/CT abdomen pelvis w con IMPRESSION: No evidence of tumor recurrence or metastatic disease Anterior bladder wall thickening likely due to under distention. Impression dictated by: Ronan Roper M.D. 01/12/2025 10:28 AM Dictation Location: [place] [address] Electronically authenticated by: [id number] Y Date: 01/12/2025 10:28 Dictated By: Ronan Roper M.D. Signed By: 01/15/25 0958 DD/ 1028 TD/TT: Word Processing Specialist:Urine Culture - [facility] Reviewed date:02/05/2025 01:17:24 PM Interpretation: Performing Lab: Notes/Report: [facility] ,Urine Culture - [facility]See Below For Report Urine Culture - [facility] No Growth 2 Days Urine Culture - [facility] Urine Culture - [facility] No Growth 2 Days U[facility] Urine [facility] - [facility] No Growth 2 Days Urine Culture - [id number] [place] [address] Urine Culture - [facility] No Growth 2 Days Performing Lab:see noteML - [facility] LBBLOOD CULTURE ID PANEL Reviewed date:02/24/2025 12:47:39 PM Interpretation: Performing Lab: Notes/Report: [facility] ,CTX-MNOT DETECTEDNOT DETECTE --- 02/23/25 135 --- CTX-M previously reported as: NOT APPLICABLE IMPNOT DETECTEDNOT DETECTE --- 02/23/25 135 --- IMP previously reported as: NOT APPLICABLE KPCNOT DETECTEDNOT DETECTE --- 02/23/25 135 --- KPC previously reported as: NOT APPLICABLE mcr-1NOT DETECTEDNOT DETECTE --- 02/23/251353 --- mcr-1 previously reported as: NOT APPLICABLE mecA/CNOT APPLICABLENOT DETECTEmecA/C and MREJ (MRSA)NOT APPLICABLENOT DETECTE NDMNOT DETECTEDNOT DETECTE --- 02/23/25 135 --- NDM previously reported as: NOT APPLICABLE KCI-99-yzxjEFW DETECTEDNOT DETECTE --- 02/23/25 135 --- OXA-48-like previously reported as: NOT APPLICABLE Juan/BNOT APPLICABLENOT DETECTEVIMNOT DETECTEDNOT DETECTE --- 02/23/25 135 --- VIM previously reported as: NOT APPLICABLE SourceBLOODEnterococcus faecalisNOT DETECTEDNOT DETECTEEnterococcus faeciumNOT DETECTEDNOT DETECTEListeria monocytogenesNOT DETECTEDNOT DETECTEStaphylococcus spp.NOT DETECTEDNOT DETECTEStaphylococcus aureusNOT DETECTEDNOT DETECTE Staphylococcus epidermidisNOT DETECTEDNOT DETECTEStaphylococcus lugdunensisNOT DETECTEDNOT DETECTEStreptococcus spp.NOT DETECTEDNOT DETECTEStreptococcus agalactiaeNOT DETECTEDNOT DETECTEStreptococcus pneumoniaeNOT DETECTEDNOT DETECTE Streptococcus pyogenesNOT DETECTEDNOT DETECTEA. calcoaceticus-baumannii CpxNOT DETECTEDNOT DETECTEBacteroides fragilisNOT DETECTEDNOT DETECTEEnterobacterales DETECTEDNOT DETECTERESULTS CALLED TO DR. ESTEVESEnterobacter cloacae complexNOT DETECTEDNOT DETECTEEscherichia coliNOT DETECTEDNOT DETECTEKlebsiella aerogenes DETECTEDNOT DETECTERESULTS CALLED TO DR. Jcsiella oxytocaNOT DETECTEDNOT DETECTEKlebsiella pneumoniae groupNOT DETECTEDNOT DETECTEProteus spp.NOT DETECTEDNOT DETECTESalmonella spp.NOT DETECTEDNOT DETECTESerratia marcescensNOT DETECTEDNOT DETECTEHaemophilus influenzaeNOT DETECTEDNOT DETECTENeisseria meningitidisNOT DETECTEDNOT DETECTEPseudomonas aeruginosaNOT DETECTEDNOT DETECTE Stenotrophomonas maltophiliaNOT DETECTEDNOT DETECTECandida albicansNOT DETECTED NOT DETECTECandida aurisNOT DETECTEDNOT DETECTECandida glabrataNOT DETECTEDNOT DETECTECandida kruseiNOT DETECTEDNOT DETECTECandida parapsilosisNOT DETECTEDNOT DETECTECandida tropicalisNOT DETECTEDNOT DETECTECryptococcus neoformans/gattii NOT DETECTEDNOT DETECTEPerforming Lab:see noteML - [facility] LB CORTISOL AM Reviewed date:02/23/2025 11:51:18 AM Interpretation: Performing Lab: Notes/Report: [facility] ,Cortisol - AM8.76.2-19.4 ug/dL Performed at: - [facility] [id number] Professor Sculpture: Hadyer Hill PhD, Phone: [phone] Performing Lab:see note - [facility] LBPROF 14(COMP METB) Reviewed date:02/21/2025 01:06:04 PM Interpretation: Performing Lab: Notes/Report: [facility] ,Ckcain689413-673 mmol/LPotassium4.03.5-5.1 mmol/EDycxjctw62265-811 mmol/LCarbon Uedhkci45.021.0-32.0 mmol/LAnion Gap14.8Zadrvwk43961-538 mg/dLBlood Urea Ylytjbsf56.07.0-18.0 mg/dLCreatinine1.020.70-1.30 mg/dLEstimated GFR ( Casi>60>=60 mL/min/1.73m 2Estimated GFR (Non- Suha>60>=60 mL/min/1.73m 2BUN Creatinine Ratio9.8Yzcikmw0.38.5-10.1 mg/dLBilirubin Total0.90.2-1.0 mg/dL Aspartate Amino Qjlftekucay2028-33 U/LAlanine Haamlqbqjxujwxst8355-17 U/L Alkaline Jjlsrzqtfmu86752-774 U/LTotal Protein8.46.4-8.2 g/dLAlbumin Level3.2 3.4-5.0 g/dLGlobulin5.2Albumin Globulin Ratio0.6Performing Lab:see note - [facility] LBUA RANDOM Reviewed date:02/21/2025 01:06:04 PM Interpretation: Performing Lab: Notes/Report: [facility] ,Color UrineYELLOWYELLOWClarity UrineCLEARCLEARSpecific Alston Urine1.020 1.005-1.025pH Urine5.55.0-9.0Protein UrineTRACENEG/TRACE mg/dLGlucose Urine UA NEGATIVENEGATIVE mg/dLBilirubin UrineNEGATIVENEGATIVEKetones UrineNEGATIVE NEGATIVE mg/dLBlood UrineTRACE-INEGATIVENitrite UrineNEGATIVENEGATIVE Urobilinogen Urine0.20.2-1.0 EU/dLLeukocyte Esterase UrineNEGATIVENEGATIVE Performing Lab:see note - [facility] LBBlood Culture 2 Reviewed date:03/01/2025 06:03:20 PM Interpretation: Performing Lab: Notes/Report: [facility] ,Blood Culture 2See Below For Report O:KLEBAE Isolated Blood Culture 2BOTH AEROBIC AND ANAEROBIC BOTTLES WENT OFF POSITIVE O:KLEBAE Isolated Blood Culture 2 O:KLEBAE Isolated Blood Culture 2BCID PERFORMED ON SET #1: O:KLEBAE Isolated Blood Culture 2ENTEROBACTERALES O:KLEBAE Isolated Blood Culture 2KLEBSIELLA AEROGENES O:KLEBAE Isolated Blood Culture 2 O:KLEBAE Isolated Blood Culture 2FOR PARTH REFER TO FINAL REPORT OF BLOOD CULTURE COLLECTED ON O:KLEBAE Isolated Blood Culture @ 0912 O:KLEBAE Isolated Performing Lab:see note ML - [facility] LB SEE REPORT - Screen Printing Paster Id information not found for OBX-specific editor producer legend Urine Culture - [facility] Reviewed date:02/23/2025 11:51:18 AM Interpretation: Performing Lab: Notes/Report: [facility] ,Urine Culture - [facility]MCSee Below For Report Urine Culture - [facility] No Growth 2 Days Urine Culture - [facility] Urine Culture - [facility] No Growth 2 Days Urine [facility] Urine [facility] - [facility] No Growth 2 Days Urine Culture - [id number] [place] [address] Urine Culture - [facility] No Growth 2 Days Performing Lab:see noteML - [facility] LBCBC AUTO DIFF Reviewed date:02/22/2025 12:37:09 PM Interpretation: Performing Lab: Notes/Report: [facility] ,White Blood Count6.84.0-11.0 10 3/uLRed Blood Count2.994.70-6.10 10 6/uL Hemoglobin9.814.0-18.0 g/eNZsxirrxmxe74.042.0-54.0 %Mean Corpuscular Esmrgx56.0 80.0-94.0 fLMean Corpuscular Wayaxrrffm21.825.9-34.0 pgMean Corpuscular HGB Conc 33.829.9-35.2 g/dLRed Cell Distribution Width13.611.0-15.0 %Platelet Sxbfs352 150-450 10 3/uLMean Platelet Tldygx14.89.5-13.5 fLNeutrophils Percent Auto65.9 43.0-75.0 %Lymphocytes Percent Auto16.220.5-60.0 %Monocytes Percent Auto15.11.7- 12.0 %Eosinophils Percent Auto2.10.9-7.0 %Basophils Percent Auto0.30.2-2.0 % Immature Granulocytes Pct Auto0.40.0-0.5 %Neutrophils Absolute Auto4.51.4-6.5 10 3/uLLymphocytes Absolute Auto1.11.2-3.8 10 3/uLMonocytes Absolute Auto1.00.3- 0.8 10 3/uLEosinophils Absolute Auto0.10.0-0.7 10 3/uLBasophils Absolute Auto0.0 0.0-0.1 10 3/uLImmature Granulocytes Abs Auto0.030.00-0.03 10 3/uLPerforming Lab:see noteML - [facility] LBCRP Reviewed date:02/22/2025 12:37:09 PM Interpretation: Performing Lab: Notes/Report: [facility] ,C Reactive Zgqqobz20.96<=0.50 mg/dLPerforming Lab:see noteML - [facility] LBMAGNESIUM Reviewed date:02/22/2025 12:37:09 PM Interpretation: Performing Lab: Notes/Report: [facility] ,Magnesium2.11.8-2.4 mg/dLPerforming Lab:see noteML - [facility] LB PROF 14(COMP METB) Reviewed date:02/22/2025 12:37:09 PM Interpretation: Performing Lab: Notes/Report: [facility] ,Ghrdyd372262-347 mmol/LPotassium3.73.5-5.1 mmol/XLerpabnb63702-421 mmol/LCarbon Ubwpztn57.621.0-32.0 mmol/LAnion Gap13.4Iypjkra14266-393 mg/dLBlood Urea Nitrogen7.07.0-18.0 mg/dLCreatinine0.750.70-1.30 mg/dLEstimated GFR ( Casi>60>=60 mL/min/1.73m 2Estimated GFR (Non- Suha>60>=60 mL/min/1.73m 2BUN Creatinine Ratio9.5Rphkujv0.38.5-10.1 mg/dLBilirubin Total0.40.2-1.0 mg/dL Aspartate Amino Vmewxqxaaaz2615-04 U/LAlanine Gebvprrjfpxwmpaj5123-98 U/L Alkaline Slqiolhlgcn4799-106 U/LTotal Protein6.66.4-8.2 g/dLAlbumin Level2.33.4- 5.0 g/dLGlobulin4.3Albumin Globulin Ratio0.5Performing Lab:see noteML - [facility] LBBlood Culture 1 Reviewed date:02/28/2025 05:52:30 PM Interpretation: Performing Lab: Notes/Report: [facility] ,Blood Culture 1See Below For Report Blood Culture 1 NG5D NO GROWTH AT 5 DAYS.^NO GROWTH AT 5 DAYS. Performing Lab:see note - [facility] LBBlood Culture 2 Reviewed date:02/28/2025 05:52:30 PM Interpretation: Performing Lab: Notes/Report: [facility] ,Blood Culture 2See Below For Report NG5D NO GROWTH AT 5 DAYS.^NO GROWTH AT 5 DAYS. Blood Culture 2 Performing Lab:see note - [facility] LBPROF CHEM 8 (BAS METB) Reviewed date:02/24/2025 12:47:39 PM Interpretation: Performing Lab: Notes/Report: [facility] ,Crldcf450943-409 mmol/LPotassium3.53.5-5.1 mmol/MEbgsnmxv37340-565 mmol/LCarbon Vlnofta90.021.0-32.0 mmol/LAnion Gap11.8Stydwhf97517-824 mg/dLBlood Urea Nitrogen5.07.0-18.0 mg/dLCreatinine0.910.70-1.30 mg/dLEstimated GFR ( Casi>60>=60 mL/min/1.73m 2Estimated GFR (Non- Suha>60>=60 mL/min/1.73m 2BUN Creatinine Ratio5.1Ryiwqig2.98.5-10.1 mg/dLPerforming Lab:see note - [facility] LBBlood Culture 1 (Not yet reviewed by provider) Interpretation: Performing Lab: Notes/Report: [facility] ,Blood Culture 1See Below For Report Blood Culture 1 NG5D NO GROWTH AT 5 DAYS.^NO GROWTH AT 5 DAYS. Performing Lab:see note - [facility] LBBlood Culture 2 (Not yet reviewed by provider) Interpretation: Performing Lab: Notes/Report: [facility] ,Blood Culture 2See Below For Report Blood Culture 2 NG5D NO GROWTH AT 5 DAYS.^NO GROWTH AT 5 DAYS. Performing Lab:see note - [facility] LBCBC AUTO DIFF Reviewed date:03/01/2025 06:03:20 PM Interpretation: Performing Lab: Notes/Report: [facility] ,White Blood Count7.94.0-11.0 10 3/uLRed Blood Count3.574.70-6.10 10 6/uL Nenykcyabc16.514.0-18.0 g/iRYmydttchso91.442.0-54.0 %Mean Corpuscular Sxmkub21.4 80.0-94.0 fLMean Corpuscular Bhnpoevsbi27.225.9-34.0 pgMean Corpuscular HGB Conc 33.429.9-35.2 g/dLRed Cell Distribution Width13.311.0-15.0 %Platelet Iwmam909 150-450 10 3/uLMean Platelet Hkukdt57.39.5-13.5 fLNeutrophils Percent Auto66.3 43.0-75.0 %Lymphocytes Percent Auto21.820.5-60.0 %Monocytes Percent Auto7.31.7- 12.0 %Eosinophils Percent Auto3.60.9-7.0 %Basophils Percent Auto0.50.2-2.0 % Immature Granulocytes Pct Auto0.50.0-0.5 %Neutrophils Absolute Auto5.21.4-6.5 10 3/uLLymphocytes Absolute Auto1.71.2-3.8 10 3/uLMonocytes Absolute Auto0.60.3- 0.8 10 3/uLEosinophils Absolute Auto0.30.0-0.7 10 3/uLBasophils Absolute Auto0.0 0.0-0.1 10 3/uLImmature Granulocytes Abs Auto0.040.00-0.03 10 3/uLPerforming Lab:see noteML - [facility] LBCRP Reviewed date:03/01/2025 06:03:20 PM Interpretation: Performing Lab: Notes/Report: [facility] ,C Reactive Protein3.09<=0.50 mg/dLPerforming Lab:see noteML - [facility] LBPROF 14(COMP METB) Reviewed date:02/21/2025 01:06:04 PM Interpretation: Performing Lab: Notes/Report: [facility] ,Cyteof124181-676 mmol/LPotassium4.43.5-5.1 mmol/DVxptegeg47024-587 mmol/LCarbon Vhzqsho45.021.0-32.0 mmol/LAnion Gap14.2Zmemlux73423-787 mg/dLBlood Urea Nitrogen8.07.0-18.0 mg/dLCreatinine0.900.70-1.30 mg/dLEstimated GFR ( Casi>60>=60 mL/min/1.73m 2Estimated GFR (Non- Suha>60>=60 mL/min/1.73m 2BUN Creatinine Ratio8.7Kggiumk6.28.5-10.1 mg/dLBilirubin Total0.70.2-1.0 mg/dL Aspartate Amino Zlnkldfmkca2088-78 U/LAlanine Xrbuxnyuhajmfozl7423-40 U/L Alkaline Kevpebovwbd6407-184 U/LTotal Protein8.06.4-8.2 g/dLAlbumin Level3.53.4- 5.0 g/dLGlobulin4.5Albumin Globulin Ratio0.8Performing Lab:see noteML - [facility] LBCBC AUTO DIFF Reviewed date:02/21/2025 01:06:04 PM Interpretation: Performing Lab: Notes/Report: [facility] ,White Blood Count3.34.0-11.0 10 3/uLRed Blood Count4.344.70-6.10 10 6/uL Cutvoasigt47.714.0-18.0 g/vBVyzydjkgck91.242.0-54.0 %Mean Corpuscular Sjbpcr89.6 80.0-94.0 fLMean Corpuscular Daquzhunpp40.625.9-34.0 pgMean Corpuscular HGB Conc 34.129.9-35.2 g/dLRed Cell Distribution Width18.611.0-15.0 %Platelet Xcobb968 150-450 10 3/uLMean Platelet Zwkute03.59.5-13.5 fLNeutrophils Percent Auto34.6 43.0-75.0 %Lymphocytes Percent Auto36.120.5-60.0 %Monocytes Percent Auto22.61.7- 12.0 %Eosinophils Percent Auto4.90.9-7.0 %Basophils Percent Auto1.50.2-2.0 % Immature Granulocytes Pct Auto0.30.0-0.5 %Neutrophils Absolute Auto1.11.4-6.5 10 3/uLLymphocytes Absolute Auto1.21.2-3.8 10 3/uLMonocytes Absolute Auto0.70.3- 0.8 10 3/uLEosinophils Absolute Auto0.20.0-0.7 10 3/uLBasophils Absolute Auto0.1 0.0-0.1 10 3/uLImmature Granulocytes Abs Auto0.010.00-0.03 10 3/uLPerforming Lab:see note - [facility] LBCBC AUTO DIFF Reviewed date:02/04/2025 12:49:38 PM Interpretation: Performing Lab: Notes/Report: [facility] ,White Blood Count6.64.0-11.0 10 3/uLRed Blood Count3.684.70-6.10 10 6/uL Bqyojfjwhq97.114.0-18.0 g/fDUzlxnecwkl20.542.0-54.0 %Mean Corpuscular Kshwvn03.5 80.0-94.0 fLMean Corpuscular Gohtpfunex24.925.9-34.0 pgMean Corpuscular HGB Conc 34.129.9-35.2 g/dLRed Cell Distribution Width14.011.0-15.0 %Platelet Tbdql400 150-450 10 3/uLMean Platelet Eqaptz58.69.5-13.5 fLPerforming Lab:see note - [facility] LBCRP Reviewed date:02/04/2025 12:49:38 PM Interpretation: Performing Lab: Notes/Report: [facility] ,C Reactive Xsttstd59.68<=0.50 mg/dLPerforming Lab:see note - [facility] LBLACTATE or LACTIC ACID Reviewed date:02/04/2025 12:49:38 PM Interpretation: Performing Lab: Notes/Report: [facility] ,Lactate/Lactic Acid2.30.4-2.0 mmol/L RESULTS CALLED TO ASHOK Franklin MD@BY GUERITA ParraT at 2230 Performing Lab:see note - [facility] LBPROF 14(COMP METB) Reviewed date:02/04/2025 12:49:38 PM Interpretation: Performing Lab: Notes/Report: [facility] ,Jsmsbo390915-457 mmol/LPotassium3.43.5-5.1 mmol/CWzvjbcvh66219-489 mmol/LCarbon Qzcxgms51.521.0-32.0 mmol/LAnion Gap14.8Muskwow18709-044 mg/dLBlood Urea Pdjkmapj60.07.0-18.0 mg/dLCreatinine1.840.70-1.30 mg/dLEstimated GFR ( Xjkbjfw53>=60 mL/min/1.73m 2Estimated GFR (Non- Ame39>=60 mL/min/1.73m 2 BUN Creatinine Ratio17.9Txoihpf4.78.5-10.1 mg/dLBilirubin Total1.10.2-1.0 mg/dL Aspartate Amino Pawvskgbctx9663-12 U/LAlanine Yuzedrrciqsztadj4394-65 U/L Alkaline Kvdcqumlphp42946-778 U/LTotal Protein7.26.4-8.2 g/dLAlbumin Level2.5 3.4-5.0 g/dLGlobulin4.7Albumin Globulin Ratio0.5Performing Lab:see noteML - [facility] LBManual Differential Reviewed date:02/04/2025 12:49:38 PM Interpretation: Performing Lab: Notes/Report: [facility] ,Segmented Neutrophils % Dboiic52.043.0-75.0Lymphocytes Percent Manual6.020.5- 60.0 %Monocytes Percent Rdpngz12.01.7-12.0 %Eosinophils Percent Manual1.00.9-7.0 %Basophils Percent Manual0.00.2-2.0 %Segmented Neut Absolute Manual5.471.4-6.5 10 3/uLLymphocytes Absolute Manual0.391.20-3.80 10 3/uLMonocytes Absolute Manual 0.660.30-0.80 10 3/uLEosinophils Absolute Manual0.060.00-0.70 10 3/uLBasophils Abs Manual0.000.00-0.10 10 3/uLPerforming Lab:see noteML - [facility] LBUA Micro, reflex to culture Reviewed date:02/04/2025 12:49:38 PM Interpretation: Performing Lab: Notes/Report: [facility] ,Color UrineDK. ORANGEYELLOWClarity UrineCLEARCLEARSpecific [place]ston Urine1.015 1.005-1.025pH Urine5.55.0-9.0Protein Bodim85YSS/TRACE mg/dLGlucose Urine UA100 NEGATIVE mg/dLBilirubin UrineSMALLNEGATIVEKetones UrineTRACENEGATIVE mg/dLBlood UrineTRACE-INEGATIVENitrite UrineNEGATIVENEGATIVEUrobilinogen Urine4.00.2-1.0 EU/dLLeukocyte Esterase UrineNEGATIVENEGATIVEWBC Urine5-10NONE SEEN #/HPFRBC Urine0-20-2 #/HPFBacteria UrineSMALLNONE SEEN #/HPFMucus UrineTRACENONE SEEN Squamous Epithelial Cell UrineFEWNONE/RARE #/LPFCrystals Seen?None SeenNone Seen #/HPFCast Seen?SEENNONE SEEN #/LPFHyaline Casts UrineRAREWhite Blood Cell Casts UrineFEWUrine Culture IndicatedYES-FRMCPerforming Lab:see noteML - [facility] LBXR chest 2V Reviewed date:02/04/2025 12:49:38 PM Interpretation: Performing Lab: Notes/Report: Source Facility: [place] [address] [place] [address] XRay Report Signed Patient: PIPER RODRÍGUEZ MR#: [id number] : 1970 Acct:[id number] Age/Sex: 54 / M ADM Date: 02/02/25 Loc: ER Attending Dr: Ordering Physician: Devan Franklin Date of Service: 02/02/25 Procedure(s): XR chest 2V Accession Number(s): [id number] cc: Devan Franklin; Delta Pratt M.D. [place] [address] Patient Name: PIPER RODRÍGUEZ MRN: [id number] date: 1970 Sex: M Assigned Patient Location: ER Current Patient Location: ER Accession/Order Number: [id number] Exam Date: 02/02/2025 21:55 Report Date: 02/02/2025 22:29 At the request of: DEVAN FRANKLIN MD Procedure: XR chest 2V PA AND LATERAL CHEST: CLINICAL HISTORY: fever COMPARISON: 01/12/2025 FINDINGS: Right-sided Tngkua-s-Fcgd/Mediport. Borderline cardiomediastinal silhouette. Lungs are clear. No effusion or pneumothorax. XR/XR chest 2V IMPRESSION: NO ACUTE CARDIOPULMONARY ABNORMALITY. Impression dictated by: Ronan Roper M.D. 02/02/2025 10:29 PM Dictation Location: [place] [address] Electronically authenticated by: [id number] Y Date: 02/02/2025 22:29 Dictated By: Ronan Roper M.D. Signed By: 02/02/252231 DD/ 28 TD/TT: Word Processing Specialist: Reason For Referral Reason egd and colonoscopy Diagnosis 1 Gastric ulcer (K25.9 ) Referral Organization [facility] Referring Provider First Name Nick Referring Provider Last Name [facility] Provider Jone Edmond Referred Provider Specialty General Surg catarina Referral Priority Routine Diagnosis 1 Bradycardia (R00.1) Referral Organization [facility] Referring Provider First Name Nick Referring Provider Last Name [facility] Referring Provider [facility] Referred Provider Specialty Cardiology Referral Priority Routine Diagnosis 1 Bradycardia (R00.1) Referral Organization [facility] Referring Provider First Name Nick Referring Provider Last Name [facility] Referring Provider [facility] Referred Provider Say Lam Referred Provider Specialty Cardiovascul ar Disease Referral Priority Routine Reason please schedule kamran needs port removed Diagnosis 1 Colon cancer (C18.9) Referral Organization [facility] Referring Provider First Name Nick Referring Provider Last Name [facility] Referring Provider [facility] Referred Provider Jone Edmond Referred Provider Specialty General Surg catarina Referral Priority Routine Medications Medication SIG (Take, Route, Frequency, Duration) Notes Start Date End Date Status Irbesartan 300 MG 1 tablet Orally Once a day; Du ration: 30 days 5Active Immunizations Vaccine Route Administration Date Status Comme nts Flu, Flucelvax (06249) 6 mos and older, single-dose syringe (8075-9334) IM Intramuscular 06/08/2024 Administered Tdap (Adacel)IM Qzcswsmspjjdf84/16/2025dministered Social History Tobacco Use: Social History Observation Description Date Details (start date - stop date) Former Smoker 05/24/1989 - 05/24/1992 Tobacco Use/Smoking Question Answer Notes Patient is a former smoker When did you start smoking?05/24/1989When did you stop smoking?05/24/1992How long has it been since you last smoked?> 10 yearsAdditional Findings: Tobacco UserChews tobaccoAlcohol Screen (Audit-C) Question Answer Notes Did you have a drink containing alcohol in the p ast year? Yes How often did you have 6 or more drinks on one occasion in the past year?Four or more times a week (4 points)How many drinks did you have on a typical day when you were drinking in the past year?10 or more drinks (4 points)How often did you have a drink containing alcohol in the past year?Daily or almost daily (4 points)Fjkaao07PrrddphzrzhtvdDygaapbuBNATV-P (Standard) Question Answer Notes Did you have a drink containing alcohol in the p ast year? No Ewrjmw0TcwznennkbbgkeKnwzixbg Problems Problem Type SNOMED Code ICD Code Onset Dates Problem Status W/U Status Risk Notes Problem Thrombocytopenia (207346130) Thrombocytop enia, unspecified (D69.6) ActiveconfirmedProblemNeutropenia (352433905)Neutropenia, unspecified (D70.9) ActiveconfirmedProblemLeukopenia (47958825)Decreased white blood cell count, unspecified (D72.819)ActiveconfirmedProblemChest pain (20731292)Chest pain (R07.9)ActiveconfirmedProblemAnemia (385555264)Anemia (D64.9)Activeconfirmed ProblemSleep apnea (95685501)Sleep apnea (G47.30)ActiveconfirmedProblemAcute sinusitis (80182430)Acute sinusitis (J01.90)ActiveconfirmedProblemWell adult (065602284)Well adult (Z00.00)ActiveconfirmedProblemGastric ulcer (755610912) Gastric ulcer (K25.9)ActiveconfirmedProblemMalignant tumor of colon (216346549) Colon cancer (C18.9)ActiveconfirmedProblemNeutropenia (666882519)Neutropenia (D70.9)ActiveconfirmedProblemLeukopenia (71200697)Leukopenia (D72.819)Active confirmedProblemDisorder of lung (61019673)Cavitary lesion of lung (J98.4)Active confirmedProblemAcute urinary tract infection (072712716)Acute UTI (N39.0)Active confirmedProblemNeutropenic fever (147691634)Neutropenic fever (D70.9)Active confirmedProblemEssential hypertension (44813695)Essential Hypertension (I10) ActiveconfirmedProblemAngina pectoris (430714849)Other forms of angina pectoris (I20.89)Activeconfirmed Vital Signs Temperature 96.5 degrees Fahrenheit 03/02/2025 Blood pressure jnpmjylwq62 mm Hg03/02/20250292Natkhj44 in03/02/2025lood pressure jwnlibwx049 mm Hg03/02/20258577Gfojwx193.2 lbs1MI36.33 kg/m203/02/2025 Procedures Procedure Date Ordered Date Performed Result Body Sit e Holter Monitor - 3 days up to 14 days 08/22/2024 N/A Encounters Encounter Location Date Provider Diagnosis [facility] [address] [place] [address] 05/15/2024 Nick chanell [facility] [place] [address] [facility] [place] [address]/[facility] [place] [address]/[facility] [place] [address]/[facility] [facility] [place] [address]/Doug [facility] [facility] [place] [address]/ Nick [facility] [facility] [place] [address]/05/2024Doug HoyBradycardia R00.1BRangely [facility] [facility] [place] [address]/12/2024Doug [facility] [facility] [place] [address]/Doug Hoy Bradycardia R00.1BRangely [facility] Hospital[address] [facility] [place] [address]/Doug [facility] [address] [place] [address]/Doug [facility] examination Z00.00 ; Prostate cancer screening Z12.5 ; Abnormal glucose level R73.09 and Fatigue R53.83[facility] [facility] [place] [address]/Doug [facility] [facility] [place] [address]/Doug [facility] [facility] [place] [address]/Doug [facility] [facility] [place] [address]/Doug [facility] [facility] [place] [address]/ Nick [facility] [facility] [place] [address]/Doug [facility] [facility] [place] [address]/07/2024Doug [facility] [place] [place] [address]/10/2024Doug [facility]oyBR[facility] [place] [place] [address]/11/2024Doug HoyColon cancer C18.9BRangely [facility] Hospital[address] [place] [place] [address]/4Doug HoyGastric ulcer K25.9 ; Neutropenia, unspecified D70.9 ; Thrombocytopenia, unspecified D69.6 and Decreased white blood cell count, unspecified D72.819Bu[facility] [place] [place] [address]/02/2025Doug HoyOther forms of angina pectoris I20.89 and Cavitary lesion of lung J98.4BRangely District Hospital[address] [place] [place] [address]/Doug HoyFever R50.9 and Acute UTI N39.0[facility] [place] [place] [address]/ Nick Brooke for immunization [address] [place] [address] [address] [place] [address]/poorva [facility] [address] [place] [address]/poorva [facility] [address] [place] [address]/poorva [facility] [address] [place] [address]/ Franklin [facility] [address] [place] [address]/popava [facility] [address] [place] [address]/popava [facility] [address] [place] [address]/poorva [facility] [address] [place] [address]/popava [facility] [address] [place] [address]/ [facility] [address] [place] [address]/POMercy [facility] [address] [place] [address]/[facility] [address] [place] [address]/[facility] [address] [place] [address]/POGood [facility] [address] [place] [address]/02/2025 [facility] [address] [place] [address]/poorPremier [facility] [address] [place] [address]/[facility] [address] [place] [address]/po[facility] [address] [place] [address]/[facility] [address] [place] [address]/05/2024 [facility] [address] [place] [address]/poMer[facility] [address] [place] [address]/poorva [facility] Encounter Date Diagnosis (ICD Code) Assessment Notes Treatment Notes Treatment Clinical Notes Section Notes 04/12/2024 Gastric ulcer (ICD-10 - K25.9) needs egd and jokucxedhl65/20/2024Neutropenia, unspecified (ICD-10 - D70.9) 06/08/2024Encounter for immunization (ICD-10 - Z23)02/15/2025Fever (ICD-10 - R50.9)02/15/2025ute UTI (ICD-10 - N39.0)03/02/2025Other forms of angina pectoris (ICD-10 - I20.89)03/02/2025avitary lesion of lung (ICD-10 - J98.4) 08/22/2024radycardia (ICD-10 - R00.1)5Bradycardia (ICD-10 - R00.1) 10/04/2024Wellness examination (ICD-10 - Z00.00)10/04/2024Prostate cancer screening (ICD-10 - Z12.5)02/27/2025olon cancer (ICD-10 - C18.9)10/04/2024 Abnormal glucose level (ICD-10 - R73.09)04/12/2024Thrombocytopenia, unspecified (ICD-10 - D69.6)04/12/2024ecreased white blood cell count, unspecified (ICD-10 - D72.819)10/04/2024Fatigue (ICD-10 - R53.83) Plan Of Treatment Pending Test Test Name Order Date Exercise Stress Nuclear Test 07/29/2023 CMP (COMPLETE METABOLIC PANEL) 4 HEMOGLOBIN A1C (GLYCO) 06/21/2023 LIPID PANEL (CHOL/TRIG/HDL/LDL) 06/21/19 24 CBC WITH DIFF 06/21/2023 PSA, PROSTATE-SPECIFIC ANTIGEN 4 ACUTE HEPATITIS PANEL 08/10/2023 CBC W/AUTO DIFF 08/18/2023 SED RATE WESTER[facility]EN 08/09/2023 CT CHEST W CON 03/02/2025 THYROID PANEL (T4/TSH/FREE T3) 4 THYROID PANEL (T4/TSH/FREE T3) 5 ECHOCARDIO M/2D COMPLETE 07/29/2023 Holter Monitor - 3 days up to 14 days Blood Culture 1 02/27/2025 Blood Culture 2 02/27/2025 PSA, SCREENING 10/04/2024 Next Appt Details Provider Name:FRANKLIN ESTEVES , 03/20/2025 08:00:00 AM, [address] [place], [address], Insurance Providers Payer Name Payer Address Payer Phone Subscriber Number Group Number Insured Name Patient Relationship to Insured Coverage Start Date Coverage End Date [employer] PPO PLUS LOCAL PLAN [address] [place] [address] [id number] Judi Rodríguezelf - patient is the insured Medications Administered Medication Instructions Date of Administration Dosage Notes Ketorolac Tromethamine 460 mg Medical (General) History Medical History History ICD Code Essential Hypertension I10 Elevated LFTs R94.5 Palpitations R00.2 Snoring R06.83 Colon polyp K63.5 Sleep apnea G47.30 Fatty Liver Disease Surgical History Surgery Date(Month/Year) Colonoscopy and Polypectomy 06/03/2018 Bilateral Hip Replacement EGD and Colonoscopy Dr Edmond 05/10/2024 Rt External Jugular port e-cath Dr Edmond 07/05/24 Hospitalization History Reason Date(Month/Year) fever 2023 Sepsis 03/17
--- OUTSIDE RECORDS SUMMARY | 2025-03-14 07:16 | XMS_ITS | Clinical Summary ---
Author Organization [facility] Healthcare Address [address] [place] [address] Care Team Providers Care Park Manager Name Role Phone Unavailable Primary Care Provider Unavailabl e Social History Tobacco UseTypesPacks/DayYears UsedDateSmoking Tobacco: Never AssessedSex and Gender InformationValueDate RecordedSex Assigned at BirthNot on fileLegal Sex Male08/05/2022 8:25 PM EDTGender IdentityNot on fileSexual OrientationNot on file Last Filed Vital Signs Vital SignReadingTime TakenCommentsBlood Zdystllo409/9410 12:00 PM EDT Pulse--Temperature--Respiratory Rate--Oxygen Saturation--Inhaled Oxygen Concentration--Vsdave359 kg (245 lb)03/02/2018 12:00 PM UZKPgtemi357.3 cm (5' 11 )03/02/2018 12:00 PM EDTBody Mass Index34.171 12:00 PM EDT Plan of Treatment Not on file
--- OUTSIDE RECORDS SUMMARY | 2025-03-14 07:16 | XMS_ITS | Clinical Summary ---
Author Organization [facility] Address [address] [place] [address] Care Team Providers Care Sap Bods Developer Name Role Phone Delta Pratt MD Primary Care Provider [phone] Allergies No known active allergies Medications MedicationSigDispense QuantityRefillsLast FilledStart DateEnd DateStatus lactobacillus (Culturelle) 10 billion cell capsule Take 1 capsule by mouth in the morning.5Active methocarbamol (Robaxin) 500 mg tablet Take 500 mg by mouth 3 times a day.5Active prochlorperazine (Compazine) 10 mg tablet Take 10 mg by mouth every 6 (six) hours if needed.5Active ondansetron (Zofran) 8 mg tablet Take 8 mg by mouth every 8 (eight) hours if needed.5Active Edarbi 80 mg tablet Take 1 tablet by mouth in the morning.Active Active Problems ProblemNoted DateDiagnosed DateSinus qgfxylhnwxk52/07/2025Fatty liver09/26/2024 Malignant neoplasm of ascending colon06/14/2024HTN (hypertension)06/08/2024MI 38.0-38.9,adult06/08/2024OSA (obstructive sleep apnea)06/08/2024 Social History Tobacco UseTypesPacks/DayYears UsedDateSmoking Tobacco: Never AssessedSex and Gender InformationValueDate RecordedSex Assigned at UyqntBvsc16/30/2025 3:28 PM EDTLegal VpjPtpc1209/01/2024 1:52 PM EDTGender XoknsqhqTchv77/30/2025 3:28 PM EDT Sexual OrientationChoose not to pfqrvihn72/30/2025 3:28 PM EDT Last Filed Vital Signs Vital SignReadingTime TakenCommentsBlood Pldbjkdw707/6005 10:57 AM EDT Xynsn0385 10:57 AM EDTTemperature--Respiratory Rate--Oxygen Saturation 98%09/27/2024 10:57 AM EDTInhaled Oxygen Concentration--Rbmkis462 kg (248 lb) 09/27/2024 10:57 AM BHVApyvsb318.8 cm (5' 10 )09/27/2024 10:57 AM EDTBody Mass Index35.58009/27/2024 10:57 AM EDT Plan of Treatment Health MaintenanceDue DateLast DoneCommentsDepression Yuwmlvxzw23/27/1983 Hepatitis B Vaccines (1 of 3 - 19+ 3-dose series)1990Adult Tetanus 1993Zoster Vaccines (1 of 2)2021OVID-19 Vaccine ( - 2024- season)5009/19/2020, 08/22/2020Influenza Vaccine (#1)2025 03/15/20180431VxxqxpqbpatDoeeitxhnvxv39/18/2024, 06/03/2018Colorectal Cancer ScreeningDiscontinuedCT ColonographyDiscontinuedFIT-DNADiscontinuedFIT DiscontinuedFOBTDiscontinuedHIB VaccinesAged OutNo longer eligible based on patient's age to complete this topicHPV VaccinesAged OutNo longer eligible based on patient's age to complete this topicIPV VaccinesAged OutNo longer eligible based on patient's age to complete this topicMeningococcal B VaccineAged OutNo longer eligible based on patient's age to complete this topicMeningococcal VaccineAged OutNo longer eligible based on patient's age to complete this topic Pneumococcal Vaccine: Pediatrics (0 to 5 Years) and At-Risk Patients (6 to 64 Years)Aged OutNo longer eligible based on patient's age to complete this topic Rotavirus VaccinesAged OutNo longer eligible based on patient's age to complete this topicSigmoidoscopyDiscontinued Insurance Care Teams Team MemberRelationshipSpecialtyStart DateEnd Delta Pratt MD [address] [facility] [place] [place] [address] [facility] - General09/26/24
--- OUTSIDE RECORDS SUMMARY | 2025-03-14 07:17 | XMS_ITS | Clinical Summary ---
Author Organization [employer] tem Address [id number] [address] 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 Name Role Phone Unavailable Primary Care Provider Unavailabl e Immunizations ImmunizationAdministration DatesNext DueCOVID-19, mRNA, LNP-S, PF, 100mcg/0.5mL Dose09/19/2020,08/22/2020 Social History Tobacco UseTypesPacks/DayYears UsedDateSmoking Tobacco: Never AssessedChildcare AnswerDate XpepefbwEhdqnmbdsHfodcqz82/31/2021EmploymentAnswerDate Recorded OntdyfizmdDltayva02/31/2021Purpose - LifeAnswerDate RecordedPurpose and direction in fymrIvlepon61/31/2021ex and Gender InformationValueDate Recorded Sex Assigned at BirthNot on fileLegal FyoViqr4612/27/2014 11:50 AM EDTGender IdentityNot on fileSexual OrientationNot on file Plan of Treatment Health MaintenanceDue DateLast DoneCommentsDepression Zinvnbhix70/27/1983Tobacco Shzzjsyss75/27/1983Adult BMI Vyqizdyib75/27/1989DTaP,Tdap and Td Vaccines (1 - Tdap)1990Zoster (Shingles) Vaccine (1 of 2)2021OVID-19 Vaccine (3 - 2024- season)504/, 08/22/2020Influenza Dtacjcv6201/22/2025 03/15/2018 Medical Devices Not on file Insurance
[2025-03-14 07:18] VITALS: BP 138/71; PULSE 72; TEMP 36.2; O2SAT 96; BMI 35.0
[2025-03-14] MEDS: BUPIVACAINE HCL 0.5% PF 50 MG/10 ML VIAL INJ (09:31)
[2025-03-14 09:38] VITALS: BP 105/60; PULSE 58; TEMP 36.6; O2SAT 98
[2025-03-14 10:08] VITALS: BP 118/70; PULSE 61; O2SAT 97
== END 2025-03-14 10:15 | disposition home or self-care (01) ==
LOC: SURGOUT 07:13
PROVIDERS: PCP Family Medicine; Visit Provider Surgery
PROC: (CPT 400; principal; 2025-03-14 08:25)
PROC: (CPT 400; 2025-03-14 08:25)
DX: Z45.2 Encounter for adjustment and management of vascular access device (principal); Z85.038 Personal history of other malignant neoplasm of large intestine; K62.1 Rectal polyp; I10 Essential (primary) hypertension; G47.33 Obstructive sleep apnea (adult) (pediatric); Z96.649 Presence of unspecified artificial hip joint; E78.5 Hyperlipidemia, unspecified; J45.909 Unspecified asthma, uncomplicated; M19.90 Unspecified osteoarthritis, unspecified site
CPT/HCPCS: 36590; 45380; 88305; J0665; J2704

== ENCOUNTER 2025-03-20 07:59 | Outpatient (RCR) | payer BC, SELFPAY ==
--- NOTE | 2025-02-27 12:53 | PC.NURSE ---
1125 Here for IV ertapenum this am under infusion account, awaiting to see Dr. Esteves. Patient begins chilling/shaking, complaining of being cold. temp obtained. 98.[address] Esteves in and examines speaks to patient. medicated with tylenol 50 mg po, extra blankets applied. Orders received from 1145 Dr. Esteves Port was reaccessed utilizing a #20 ga tristan under sterile technique. excellent blood return obtained. blood cultures drawn and sent to laboratory, continues to chill T 99.1 1210 lab in for peripheral blood culture, obtained on 3rd attempt. 1230 feeling much better, chilling and shaking stopped. pataient requesting to go home, cleared with Dr. Esteves, Dr Esteves spoke with Dr. Pratt regarding having port removed. Patient educated on taking tylenol or ibuprofen around clock for next 24 hours. returning tomorrow for IV ertapenum, which we willstart a peripheral iv verbalized understaning. 1240 released ambulatory
[2025-03-20 08:48] LABS: Hematocrit 42.6 % (42.0-54.0); Hemoglobin 14.0 g/dL (14.0-18.0); Immature Granulocytes Abs Auto 0.01 10^3/uL (0.00-0.03); Immature Granulocytes Pct Auto 0.3 % (0.0-0.5); Lymphocytes Absolute Auto 1.1 10^3/uL (1.2-3.8); Mean Corpuscular HGB Conc 32.9 g/dL (29.9-35.2); Mean Corpuscular Hemoglobin 31.8 pg (25.9-34.0); Mean Corpuscular Volume 96.8 fL (80.0-94.0); Platelet Count 137 10^3/uL (150-450); Red Blood Count 4.40 10^6/uL (4.70-6.10); White Blood Count 3.9 10^3/uL (4.0-11.0)
[2025-03-20 09:07] LABS: Alanine Aminotransferase 43 U/L (16-63); Albumin Globulin Ratio 0.8; Albumin Level 3.6 g/dL (3.4-5.0); Alkaline Phosphatase 102 U/L (46-116); Anion Gap 12.7; Aspartate Amino Transferase 38 U/L (15-37); Blood Urea Nitrogen 13.0 mg/dL (7.0-18.0); Calcium 9.1 mg/dL (8.5-10.1); Carbon Dioxide 27.0 mmol/L (21.0-32.0); Chloride 103 mmol/L (98-107); Estimated GFR (African America >60 (>=60 mL/min/1.73m^2); Estimated GFR (Non-African Ame >60 (>=60 mL/min/1.73m^2); Globulin 4.5 g/dL; Glucose 110 mg/dL (74-106); Potassium 4.7 mmol/L (3.5-5.1); Sodium 138 mmol/L (136-145); Total Protein 8.1 g/dL (6.4-8.2)
[2025-03-21 08:08] LABS: CEA 3.3 ng/mL (0.0-4.7)
== END 2025-03-23 23:59 | disposition home or self-care (01) ==
LOC: HEMC 07:59
PROVIDERS: PCP Family Medicine; Visit Provider Internal Medicine Hematology & Oncology
DX: D64.9 Anemia, unspecified (principal); D61.818 Other pancytopenia; D50.9 Iron deficiency anemia, unspecified; K90.9 Intestinal malabsorption, unspecified; D72.819 Decreased white blood cell count, unspecified; C18.0 Malignant neoplasm of cecum; R11.2 Nausea with vomiting, unspecified; D69.6 Thrombocytopenia, unspecified; Z96.643 Presence of artificial hip joint, bilateral; I10 Essential (primary) hypertension; R79.89 Other specified abnormal findings of blood chemistry; R16.1 Splenomegaly, not elsewhere classified; J98.4 Other disorders of lung
CPT/HCPCS: 36415; 80053; 82378; 85025; 87040; G0463

== ENCOUNTER 2025-05-01 08:34 | Outpatient (OUT) | payer BC, SELFPAY ==
--- OUTSIDE RECORDS SUMMARY | 2025-05-01 08:46 | XMS_ITS | CCD ---
Author Organization [facility] CliniSynv Care Team Providers Care Registration Representative Name Role Phone CASEY ., DR BLEVINS [...] Gen Peña Primary Care Physician Gen Peña MD Primary Care Provider Floridalma PATEL, Jone Galeana Unavailable Lazaro MONTOYA, Chelle Orta Unavailable Yemi PATEL, [facility] Unavailable DONIS CARIAS Admitting Unavailable DONIS CARIAS Attending Unavailable ANDERSONY, GEN M Primary Care Unavailable AUSTIN, KATYARADagoU Referring Unavailable HOY, GEN M Primary Care Unavailable DONIS CARIAS Referring Unavailable HOY, GEN M Primary Care Unavailable DONIS CARIAS Referring Unavailable HOY, GEN M Primary Care Unavailable HOY, GEN M Primary Care Unavailable DONIS CARIAS Admitting Unavailable DONIS CARIAS Attending Unavailable JOE JONES Attending Unavailable Joseph Bragg MD Unavailable JOSEPH BRAGG Attending Unavailable AUSTIN, DONIS Referring Unavailable HOY, GEN M Primary Care Unavailable DONIS CARIAS Referring Unavailable HOY, GEN M Primary Care Unavailable DONIS CARIAS Attending Unavailable NILL, JONE R Referring Unavailable HOY, GEN M Primary Care Unavailable DONIS CARIAS Attending Unavailable HOY, GEN M Primary Care Unavailable KESHINDONIS GARCIA Attending Unavailable HOY, GEN M Primary Care Unavailable MALYIN CONTE Attending Unavailable MAYLIN CONTE Referring Unavailable HOY, GEN M Primary Care Unavailable Luna Sierra APRN Attending Provider [phone] NON STAFF Primary Care Provider Unavailelijah Franklin MD, Devan Loza Attending Provider Kisha Esteves MD Attending Provider Jone Hedrick MD Attending Provider [phone] Devan Franklin Admitting Unavailable Devan Franklin Attending Unavailable Nill, Jone Galeana Attending Unavailable Nill, Jone Galeana Admitting Unavailable Nill, Jone Galeana Attending Unavailable Nill, Jone Galeana Admitting Unavailable Rigoberto, Devan T Admitting Unavailable Rigoberto, Devan Loza Attending Unavailable Danielito, Kisha Admitting Unavailable Danielito, Kisha Attending Unavailable NILL, Jone Galeana Attending Unavailable NILL, Jone Galeana Attending Unavailable NILL, Jone Galeana Attending Unavailable NILL, Jone Galeana Attending Unavailable DANIELITO, KISHA Referring Unavailable NILL, Jone Galeana Attending Unavailable NILL, Jone Galeana Attending Unavailable NILL, Jone Galeana Attending Unavailable NILL, Jone Galeana Attending Unavailable NILL, Jone Galeana Attending Unavailable DANIELITO, KISHA Referring Unavailable Allergies Allergy ClassificationReported Allergen(s)Allergy TypeDate of OnsetReaction(s) Facility (1 source)No Known Medication Allergies; Translations: [No Known Medication Allergies]Propensity to adverse reactions (disorder)[facility] Repository Medications Current Medications MedicationDrug Class(es)DatesSig (Normalized)Sig (Original)acetaminophen 500 mg oral tablet (13 sources)Start: 05-42-0082fwme 2 tablets by mouth every six hours acetaminophen (TYLENOL) 500 mg tablet Take 2 tablets by mouth every 6 hours. 50 tablet 06/16/2024 ActiveAcidophilus Probiotic Blend (2 sources)Start: 79-20-5493zfbv 1 capsule by mouth once dailyAcidophilus Probiotic Blend 1 cap(s), Oral, Daily, Refill(s) 0 Start Date: 06/28/24 Status: Orderedatorvastatin 40 mg oral tablet (4 sources)HMG-CoA Reductase Inhibitortake 1 tablet by mouth once daily atorvastatin (LIPITOR) 40 mg tablet Take 40 mg by mouth once daily. Active azilsartan medoxomil 80 mg oral tablet (20 sources)Angiotensin 2 Receptor BlockerStart: 68-18-7585xfbb 1 tablet by mouth once dailyStart: 59-93-3279AZFQNX 80 mg tab 05/25/2019 Activecapecitabine 500 mg oral tablet (1 source)Nucleoside Metabolic InhibitorStart: 12-27-2024 End: 19-33-9264jhss 3 tablets by mouth twice dailycapecitabine 500 mg Tab 1,500 mg = 3 tab(s), Oral, BID, X 2 week(s), Refills(s) 0 Start Date: 12/27/24 Stop Date: 01/10/25 Status: Ordered Repeat number: 10.4 ml enoxaparin sodium 100 mg/ml prefilled syringe (9 sources)Low Molecular Weight HeparinStart: 06-16-2024 End: 22-01-3576yuniiu 40 mg by subcutaneous injection every twenty-four hours enoxaparin (LOVENOX) 40 mg/0.4 mL Inject 0.4 mL subcutaneously every 24 hours for 21 days. 8.4 mL 06/16/2024 07/07/2024 Activeenteric contrast (will be provided with radiology test) (19 sources)Start: 65-79-1609erujuxk contrast (will be provided with radiology test) [...] EC tablet Take 325 mg by mouth. Activeirbesartan 300 mg oral tablet (1 source)Angiotensin 2 Receptor BlockerStart: 15-76-0748nsed 1 tablet by mouth once dailyirbesartan 300 mg Tab 300 mg = 1 tab(s), Oral, Daily, Refills(s) 0 Start Date: 03/27/25 Status: Ordered Medication Dispense Status: Completed Total Allowed Fills: 1 Fills Dispensed: 0iv contrast (will be provided with radiology test) (19 sources)Start: 12-54-5364rb contrast (will be provided with radiology test) [...] 1 Each 05/25/2024 Active lactobacillus rhamnosus gg [id number] unt oral capsule (13 sources)Start: 06-16-2024 End: 73-68-3300pbej 1 capsule by mouth once dailylactobacillus rhamnosus (CULTURELLE) 10 billion cell capsule Take 1 capsule by mouth once daily. 30 capsule 06/16/2024 Activemethocarbamol 500 mg oral tablet (12 sources)Muscle RelaxantStart: 97-11-0199tybv 1 tablet by mouth three times dailymethocarbamol (ROBAXIN) 500 mg tablet Take 1 tablet by mouth three times a day. 20 tablet 06/23/2024 ActivemetroNIDAZOLE 500 mg oral tablet (6 sources)Nitroimidazole AntimicrobialStart: 63-52-2234ywgqvALDIRIEE (FLAGYL) 500 mg tablet Indications: Malignant neoplasm of ascending colon (HCC) Take 1 tablet by mouth as directed. Take one tab at 6:00 p.m., another at 7:00 p.m. and the last one at 11:00 p.m., prior to surgery 3 tablet 05/25/2024 Activeneomycin sulfate 500 mg oral tablet (6 sources)Aminoglycoside AntibacterialStart: 46-47-8017fosptnui 500 mg tablet Indications: Malignant neoplasm of ascending colon (HCC) Take 2 tablets by mouth as directed. Take two tabs at 6:00 p.m., 7:00 p.m. and 11:00 p.m., prior to surgery 6 tablet 05/25/2024 Activeondansetron 8 mg oral tablet (7 sources)Serotonin-3 Receptor AntagonistStart: 75-36-4480linr 1 tablet by mouth every eight hours as neededondansetron (ZOFRAN) 8 mg tablet Take 1 tablet by mouth every 8 hours as needed for nausea/vomiting. 90 tablet 2 06/29/2024 ActiveoxyCODONE hydrochloride 5 mg oral tablet (3 sources)Opioid AgonistStart: 06-16-2024 End: 34-57-9178ephf 1 tablet by mouth every six hours as neededoxyCODONE IR (ROXICODONE) 5 mg immediate release tablet Indications: Post-op pain Take 1 tablet by mouth every 6 hours as needed for up to 7 days. 25 tablet 06/16/2024 06/23/2024 Activepantoprazole 40 mg delayed release oral tablet (6 sources)Proton Pump InhibitorStart: 54-93-4167lqju 1 tablet by mouth once dailyProtonix 40 mg Tab-DR 40 mg = 1 tab(s), Oral, Daily, Refills(s) 0 Start Date: 04/18/24 Status: Orderedprochlorperazine 10 mg oral tablet (7 sources)PhenothiazineStart: 74-42-2314twev 1 tablet by mouth every six hours as neededprochlorperazine (COMPAZINE) 10 mg tablet Take 1 tablet by mouth every 6 hours as needed. 100 tablet 2 06/29/2024 Activesucralfate 1000 mg oral tablet (2 sources)Aluminum ComplexStart: 07-02-7386Waabphwt 1 gram Tab 1 gm = 1 tab(s), Oral, QIDACHS, Refills(s) 0 Start Date: 04/17/24 Status: Ordered Problems Active Problems Problem ClassificationProblemDateDocumented DateEpisodic/ChronicAbdominal hernia (2 sources)Incisional hernia; Translations: [Incisional hernia without obstruction or gangrene]Onset: 435750-93-9392OxhviferWbwtbrmii pain (14 sources)Epigastric pain; Translations: [Epigastric pain]Onset: 04-25-2024 EpisodicAlcohol-related disorders (6 sources)History of alcohol gzxmy20-70-8657SxtzgyhWvdmuk of colon (20 sources)Malignant tumor of ascending colon; Translations: [Malignant neoplasm of ascending colon]Onset: 642538-60-6403TlvdtwjVmjizo of colon (2 sources)Personal history of other malignant neoplasm of large intestine; Translations: [History of malignant neoplasm of colon]Onset: 06-21-2024 11-53-9608GlldwgtwQqblbjixsf and other anemia (6 sources)Izxpkxdrfufg61-22-0502PzmfpdtRwlzkyrpxw and other anemia (7 sources)Iron deficiency anemia; Translations: [Iron deficiency anemia, unspecified]Onset: 78-89-6852ByvjaiyaQptdukgrbh and other anemia (6 sources)Rqwmpz47-38-6960YmaraebxUqvtwvdlh of lipid metabolism (7 sources)Hyperlipidemia, unspecified; Translations: [Hyperlipidemia]Onset: 364796-05-8286YbependGrzopricn hypertension (20 sources)Essential (primary) hypertension; Translations: [Essential hypertension]Onset: 084305-15-5165RywwlbnVpcqjjntl of unspecified nature or uncertain behavior (5 sources)Neoplasm of uncertain behavior of -27-5332UhtoxbkpDlyvx aftercare (3 sources)Surgical follow-up; Translations: [Encounter for follow-up examination after completed treatment for conditions other than malignant neoplasm]51-63-0785VqtogtgwDhccx gastrointestinal disorders (6 sources)Intestinal gwhekruteirum21-07-8235ReihgtmVwkgk gastrointestinal disorders (1 source)Abnormal feces; Translations: [Other fecal abnormalities]Onset: 70-06-9890YicwedqgWtcqb gastrointestinal disorders (6 sources)Occult blood in ohvico27-27-2655ZingqiivWpiqv gastrointestinal disorders (5 sources)Mass of pjell53-45-3610CquwhansGkfnk liver diseases (6 sources)Steatosis of xudsg61-10-3996TjsctujArguj nervous system disorders (1 source)Other acute postprocedural pain; Translations: [Post-op pain]Onset: 04-29-1053XjaguebhDkwnx nutritional; endocrine; and metabolic disorders (20 sources)Body mass index 30+ - obesity; Translations: [Body mass index (BMI) 38.0-38.9, adult]Onset: 900100-78-4132TpiccsiJvxll nutritional; endocrine; and metabolic disorders (6 sources)Morbid fetyxhf25-08-3785FtbndusZjmvm upper respiratory infections (8 sources)Viral upper respiratory tract infection; Translations: [Acute upper respiratory infection, unspecified]97-80-0729NwsfkmqwQxnuctbu codes; unclassified (4 sources)Obstructive sleep apnea (adult) (pediatric); Translations: [OBSTRUCTIVE SLEEP APNEA]Onset: 73-39-0518GgbomexTyxgujhw codes; unclassified (6 sources)Sleep aftve36-25-2700VtbpfnnNidhcqhs codes; unclassified (15 sources)Obstructive sleep apnea syndrome; Translations: [Obstructive sleep apnea (adult) (pediatric)]Onset: 307566-43-5258EjqyveoUmjngvgq codes; unclassified (1 source)Acquired absence of other specified parts of digestive tract; Translations: [Status post partial colectomy]Onset: 72-43-9018CuhmaypvKcuqwqrla- related disorders (13 sources)Nicotine dependence; Translations: [Nicotine dependence, unspecified, uncomplicated]Onset: hronic Past or Other Problems Problem ClassificationProblemDateDocumented DateEpisodic/ChronicComplications of surgical procedures or medical care (20 sources)Wound dehiscence; Translations: [Disruption of wound, unspecified, initial encounter]Onset: 06-21-2024 Resolved: 946350-44-2125EetooowxGuvxvjs and fatigue (1 source)Other fatigue; Translations: [OTHER FATIGUE]Onset: 94-38-6366Cfdgbqfm Other aftercare (1 source)Other continuous churn buttermaker (current) drug therapy; Translations: [OTH ASSISTED CURRENT DRUG THERAPY]Onset: 29-10-6099NjyruusoAyikp screening for suspected conditions (not mental disorders or infectious disease) (1 source)Encounter for screening for malignant neoplasm of prostate; Translations: [ENC SCREEN MALIG NEOPLASM PROSTATE]Onset: 21-24-2548Wklakdvb Residual codes; unclassified (15 sources)User of smokeless tobacco; Translations: [Tobacco use]Onset: 436445-44-3642Lrzaaztr Results Test NameValueInterpretationReference RangeFacilityAmbulatory Visit Summaryon 53-76-4844Ljsrneaqwx Visit SummaryAmbulatory Visit Summary PIPER RODRÍGUEZ :1970 Visit Date:03/27/2025 Ambulatory Visit Instructions Your Care Team Attending Physician - FLORIDALMA PATEL, Jone Galeana Primary Care Physician - Gen Peña MD This Is Your Medications List irbesartan (irbesartan 300 mg Tab) Procedures Performed Colonoscopy (03/14/2025), Removal of implantable venous access port (03/14/2025), Insertion of implantable venous access port (07/05/2024), Right colectomy (06/14/2024), Colonoscopy (05/10/2024), EGD- esophagogastroduodenoscopy (05/10/2024), Colonoscopy (06/03/2018), Arthroplasty of left hip, Arthroplasty of right hip. Medications What How Much When Instructions Unchanged irbesartan (irbesartan 300 mg Tab) 1 Tablets By Mouth Every day Allergies No Known Allergies No Known Medication [...] signed up for this yet, please contact [employer] at [phone] to get signed up today. Language Information Language assistance services are available as needed. [facility]General [facility]/Clinic Noteon 32-37-7758Fdewrcb Surgery Office/Clinic NoteGeneral Surgery Office/Clinic Note Chief Complaint post operative follow up HPI Staff 13 day post operative follow up post removal on Ypbehy-e-covp and colonoscopy with rectal polypectomy. Denies pain, bleeding or drainage. History of Present Illness s/p surveillance colonoscopy after right colectomy 05/2024 for stage IIIb colon cancer; has small rectal hyperplastic polyp removed; also had right external jugular port removed; patient doing well, denies abd pain or blood in stools; incision healing well, no pain or drainage. Review of Systems PHQ Score Initial Depression [...] are negative or noncontributory. Physical Exam skin: incision healing well, no erythema or drainage; no seroma. Assessment/Plan 1. Stage III adenocarcinoma of colon (C18.9: Malignant neoplasm of colon, unspecified) doing well; recommend surveillance colonoscopy in 3 years; call sooner if problems/questions. Follow-up No qualifying data available Problem List/Past Medical History Ongoing Anemia BMI 36.0-36.9,adult Colon neoplasm Epigastric pain Essential hypertension Fatty liver History of alcohol abuse Hyperlipidemia Intestinal malabsorption Iron deficiency anemia Mass of colon Morbid obesity Other pancytopenia Periumbilical abdominal pain Positive occult stool blood test Sleep apnea Stage III adenocarcinoma of colon Historical No qualifying data Procedure/Surgical History Colonoscopy (03/14/2025), Removal of implantable venous access port (03/14/2025), Insertion of implantable venous access port (07/05/2024), Right colectomy (06/14/2024), Colonoscopy (05/10/2024), EGD- esophagogastroduodenoscopy (05/10/2024), Colonoscopy (06/03/2018), Arthroplasty of left hip, Arthroplasty of right hip. Medications irbesartan 300 mg Tab, 300 mg= 1 tab(s), Oral, Daily Allergies No Known Allergies No Known Medication Allergies Social History Alcohol Past. Beer. Daily., 04/23/2024 Substance Abuse Never., 04/23/2024 Tobacco Never (less than 100 in lifetime), Chewing Tabacco Tobacco Use:. Smokeless tobacco user within last30 days Smokeless Tobacco Use:. Oral, 14 per day. Yes, 03/27/2025 Family History Cancer: Father. Primary malignant neoplasm of rectum: Mother. Immunizations Vaccine Date Status Comments SARS-CoV-2 (COVID-19) mRNA-1273 vaccine 09/19/2020 Recorded 2024-04-17: TPV40 SARS-CoV-2 (COVID-19) mRNA-1273 vaccine 08/22/2020 Recorded 2024-04-17: TPV40 [facility] HospitalComment on above:Result Comment: Electronically Signed By: FLORIDALAM PATEL, Jone Bell\Date and Time Signed: 03/27/25 15:37 EST Reminderson 33-80-4316XopogzlpdHxzljlpbm From: Catherine Samayoa LPN To: N - Clinical; Sent: 03/27/2025 15:37:36 EST Show up: 02/13/2028 07:00:00 EDT Subject: colonoscopy recall Due Date/Time: 03/14/2028 07:00:00 EDT Reminder/Recall Patient due for surveillance colonoscopy 03/14/2028 due to history of colon cancer.[facility] HospitalLon 03-14-2025L Specimen: [id number] Received: 03/14/25 Status: DEION Denaa Num: [id number] Spec Type: Surgical Subm Dr: Jone Hedrick MD FACS Tissues: A Colon Biopsy (RECTAL POLYP) Procedures: HE/Evens, Gross/Micro L4 Age/ Patient Sex Location Account Attending Physician Piper Rodríguez 55/M LABELL [id number] Jone Hedrick MD FACS SPEC NUM: [id number] RECD: 03/14/25 STATUS: DEION CULLEN NUM: [id number] ANDREA: 03/14/[address] [facility] [address]: Jone Hedrick MD FACS ENTERED: 03/14/[address] [facility] [address]: Renaldo Fung SPEC TYPE: Surgical DEPT: WILFRID DOCKERY ENTERED BY: [id number] RECV BY: [id number] ORDERED: HE/2, Gross/Micro L4 ORDERED: HE/2, Gross/Micro L4 Pathological Diagnosis Rectum, polypectomy: - Hyperplastic polyp. Clinical Information Rectal polyp Gross Description Received in formalin labeled with the patient's name, date of , and rectal polyp are two spring-nichole, focally erythematous, friable, 0.3 and 0.5 cm in greatest dimension polypoid fragments. The specimen is entirely submitted in a single cassette. (1, ns, [id number]) Microscopic Description Microscopic examination is performed. CPT Codes 05420 Specimen: [id number] Received: 03/14/25 Status: DEION Deana Num: [id number] Spec Type: Surgical Subm Dr: Jone Hedrick MD [facility] Tissues: A Colon Biopsy (RECTAL POLYP) Procedures: HE/2, Gross/Micro L4 Patient: Piper Rodríguez Marychuy [id number] (Continued) Signed (signature on file) Karan Petit MD 03/15/25 1159Normal [facility] HospitalUrine Cultureon 42-49-4012Whknfgen identified Cx Nom (U)No Growth 2 Days PERFORMED BY: [place] [address] PATHOLOGIST CAD SPECIALIST YEYO DAVIS M.D.[facility] HospitalComment on above: Performed By: #### CUU #### [facility] [address] [place] [address] USAUrine cultureOrdered By: Devan Franklin on 02-21-2025 Bacteria identified Cx Nom (U)No Growth 2 DaysWex[facility] Center Blood Cultureon 78-49-3725Pwypadde identified Cx Nom (Bld)Gram Stain Gram Negative Bacilli ORGANISM: Klebsiella aerogenes (O:KLETABATHA) Organism Comments For PARTH Refer to Final Report of Blood Culture Collected Date 02/20/25 PERFORMED BY: [place] [address] PATHOLOGIST CAD SPECIALIST YEYO DAVIS M.D.[facility] HospitalComment on above: Performed By: #### CUBLD #### [facility] [address] [place] [address] USABacteria identified Cx Nom (Bld)Gram Stain Gram [...] RESISTANT TO ALL B-LACTAM DRUGS. PERFORMED BY: [place] [address] PATHOLOGIST CAD SPECIALIST YEYO DAVIS M.D.[facility] Physician GroupComment on above: Performed By: #### CUBLD #### [facility] [address] [place] [address] USALaboratory - Microbiology and Antimicrobial susceptibility Ordered By: Kisha Esteves on 94-71-7440Pwydvkxz identified Cx Nom (Bld) Klebsiella aerogenesAbMercy Health Lorain HospitalBacteria identified Cx Nom (Bld)Klebsiella aerogenesKettering Health Behavioral Medical CenterUrine Cultureon 46-30-3527Htvegaxa identified Cx Nom (U)No Growth 2 Days PERFORMED BY: [place] [address] PATHOLOGIST CAD SPECIALIST YEYO DAVIS M.D.[facility] Physician GroupComment on above: Performed By: #### CUU #### [place] [id number] USAUrine cultureOrdered By: Kisha Esteves on 02-20-2025 Bacteria identified Cx Nom (U)No Growth 2 DaysWexner Medical Center Urine Cultureon 38-27-2245Kntsokpq identified Cx Nom (U)No Growth 2 Days PERFORMED BY: [facility] [address] [place] [address] PATHOLOGIST CAD SPECIALIST YEYO DAVIS M.D.NormalNorthwest Florida Community Hospital Physician GroupComment on above: Performed By: #### CUU #### [facility] [address] [place] [address] USAUrine cultureOrdered By: Devan Franklin on 02-02-2025 Bacteria identified Cx Nom (U)No Growth 2 DaysWexner [facility] Center Influenza virus A and B and SARS-CoV-2 (COVID-19) RNA panel - Respiratory system specOrdered By: Luna Sierra on 05-11-9088Bdvenvoil virus A and B RNA and SARS-CoV-2 (COVID-19) N gene panel ALEXIS+probe (Resp)NegativeWexner Medical CenterLaboratory - Microbiology and Antimicrobial susceptibilityOrdered By: Luna Sierra on 54-20-0163YYMS-CoV-2 (COVID-19) RNA ALEXIS+probe Ql (Unsp spec) NegativeWexner Medical CenterNo Panel InformationOrdered By: Luna Sierra on 14-58-4068SJV Influenza B (ALEXIS)NegativeWexner Medical Center CNOVon 59-61-4450ZQFQImwgea Visit ([facility]) PIPER RODRÍGUEZ ([id number]) 1970 M Date Time Provider Department 01/11/25 1:00 PM DONIS CARIAS [facility] During your visit today, we recorded the following information about you: Pulse Blood pressure Weight Height 69/minute 130/80 114.3 kg 1.778 m Donis Carias MD 01/11/2025 1:34 PM Signed [facility] January 11, 2025 Piper Rodríguez 54 year old Recording using [employer] software for draft documentation of the visit was discussed with the patient/authorized players club representative; all questions welcomed and answered. Patient/authorized players club representative agreed to proceed Chief Complaint: abdominal [...] Colonoscopy 05/10/24 - Dr. Hedrick @ [facility] Scan on 05/16/2024 9:34 AM by Norma Magallanes: [facility] operative note (path pending) [id number] Pathology Scan on 05/22/2024 8:26 AM by Be Cloud: [facility] Pathology Report 05/11/24 COLON, Biopsy, Cecum: COLONIC TISSUE WITH INVASIVE ADENOCARCINOMA, MODERATELY DIFFERENTIATED, ULCERATION NOTED 2. COLON, Biopsy, Sigmoid: LARGE TUBULAR ADENOMA (>1 CM), NEGATIVE FOR HIGH GRADE DYSPLASIA, AREAS SHOWING CAUTERY ARTIFACT ARE POSITIVE FOR ADENOMATOUS GLANDS 3. COLON, Biopsy, Descending: TUBULAR ADENOMA. NEGATIVE FOR HIGH GRADE DYSPLASIA FINAL DIAGNOSIS Terminal i (more content not included)...[facility] Visit Summaryon 46-37-8852Jbuxftoguo Visit SummaryAmbulatory Visit Summary PIPER RODRÍGUEZ :1970 [...] signed up for this yet, please contact [employer] at [phone] to get signed up today. Language Information Language assistance services are available as needed. [facility] HospitalCNOVon 50-24-5207GRVQYtahcd Visit ([facility]) PIPER RODRÍGUEZ ([id number]) 1970 M Date Time Provider Department 10/24/24 10:00 AM DONIS CARIAS [facility] During your visit today, we recorded the following information about you: Pulse Blood pressure Weight 71/minute 160/91 114.7 kg Donis Carias MD 10/24/2024 10:19 AM Signed [facility] Recording using [employer] software for draft documentation of the visit was discussed with the patient/authorized players club representative; all questions welcomed and answered. 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 He underwent evaluation by a destination coordinator, including an echocardiogram, which was reportedly [...] Colonoscopy 05/10/24 - Dr. Hedrick @ [facility] on 05/16/2024 9:34 AM by Norma Magallanes: Seth Castro operative note (path pending) [id number] Pathology Scan on 05/22/2024 8:26 AM by Be Cloud: [facility] Pathology Report 05/11/24 COLON, Biopsy, Cecum: COLONIC TISSUE WITH INVASIVE ADENOCARCI (more content not included)...Normal [facility]29on [id number] by: JOE JONES on: 09/27/2024 04:14 PM Modules accepted: OrdersNormalUniversWVUMedicine Barnesville HospitalOffice Visiton 91-23-8963Whgziy-up [id number] Piper Rodríguez 1970 M Date Provider Department Center 09/27/2024 01701-ZAIRJOE JONES [facility] No [facility] history on file Level of Service:[address] [place] OFFICE/OUTPATIENT ESTABLISHED MOD MDM [address] [facility] HospitalOrders Onlyon 31-93-9374Jlwcrd [id number] Piper Rodríguez 1970 M Date Provider Department Center 09/27/2024 47471-RZOIOPGQANUSHA HAMPTON [facility] No family history on [facility] charlotteNormalUniBlanchard Valley Health System Bluffton HospitalAbstracton [id number] Piper Rodríguez 1970 M Date Provider Department Center 09/26/2024 3244-RAN GONSALEZ [facility] No family history on [facility] HospitalniBlanchard Valley Health System Bluffton HospitalAmbulatory Visit Summaryon 67-07-5169Sampoabcow Visit SummaryAmbulatory Visit Summary PIPER RODRÍGUEZ :1970 [...] you for choosing us for your care. [facility]General [facility]/Clinic Noteon 34-02-9025Kdniwts Surgery Office/Clinic NoteGeneral Surgery Office/Clinic Note Chief Complaint post operative foloow up HPI Staff 13 day post operative follow up post insertion of Dwdjud-s-bdhg. Denies discomfort, no use of pain medication. [...] (COVID-19) mRNA-1273 vaccine 08/22/2020 Recorded 2024-04-17: TPV40 [facility] HospitalComment on above:Result Comment: Electronically Signed By: FLORIDALMA PATEL, Jone Bell\Date and Time Signed: 07/18/24 14:26 ESTJASMINOVon 34-78-1117KBITErlgta Visit ([id number]) PIPER RODRÍGUEZ ([id number]) 1970 M Date Time Provider Department 07/07/24 9:00 AM MAYLIN CONTE CQB066 During your visit today, we recorded the following information about you: Temperature Pulse Blood pressure Weight 97.9 degrees 88/minute 134/77 113.4 kg Height 1.778 m Varinder Phillips MT 07/07/2024 9:33 AM Signed What is the [...] for internal providers or letter via the [place] [employer] for external providers. Chief Complaint: [...] no acute distress, well-hydrated, (more content not included)...NormalThe Jewish HospitalCNPNon 06-30-2024 CNPNTelephone (HEMASA) PIPER RODRÍGUEZ ([id number]) 1970 M Date Time Provider Department 06/30/24 CHELLE WILLIS During your visit today, we recorded the following information about you: Chelle Willis, RN 06/30/2024 11:10 AM Signed Voicemail received from pt's stating pt will be going to [place] to see their oncologist, and doesn't wish [...] 06/23/2024 Encounter Status:Closed by SABI ALLEN on 06/30/24NoOhioHealth Van Wert HospitalRosemarie 19-67-1672KNOPJsbhmcimo (HEMASA) PIPER RODRÍGUEZ ([id number]) 1970 M Date Time Provider Department 06/29/24 CHELLE WILLIS HEMASA During your visit today, we recorded the following information about you: Chelle Willis RN 06/29/2024 12:44 PM Signed Pt will be in for education tomorrow. Please sign pending orders. Thanks Chelle Willis RN Allergies As of Date: 06/29/2024 (No Known Allergies) Date Reviewed: 06/28/2024 Reviewed by: Esthela Cantrell ZACHERY - Fully Assessed Reason for Visit: Care Coordination [3491] Cmt: Treatment prep Primary Visit Diagnosis:Malignant neoplasm of ascending colon (HCC) [C18.2] Order(s):prochlorperazine (COMPAZINE) 10 mg tabletTake 1 tablet by mouth every 6 hours as needed.Disp: 100 tabletRfl: 2 ondansetron (ZOFRAN) 8 mg tabletTake 1 tablet by mouth every 8 hours as needed for nausea/vomiting.Disp: 90 tabletRfl: 2 CONSULT TO SURVIVORSHIP [951238] Order #: [id number]: 1 FUTURE CONSULT TO ONCOLOGY NUTRITION [0118008] Order #: [id number]: 1 FUTURE Prescriptions as of 07/05/2024 - [...] nausea/vomiting. Encounter Status:Closed by CHELLE WILLIS on 07/05/24OhioHealth Van Wert HospitalAmbulatory Visit Summaryon 28-97-6969Ouxydcbvaj Visit SummaryAmbulatory Visit Summary PIPER RODRÍGUEZ Marychuy [...] you for choosing us for your care. [facility] HospitalCNOVSPon 04-82-1167UKRSMGYadjy (SP) Office ([place]) PIPER RODRÍGUEZ ([id number]) 1970 M Date Time Provider Department 06/28/24 11:00 AM JOSEPH BRAGG During your visit today, we recorded the following information about you: Temperature Pulse Respiration Blood pressure 97.3 degrees 74/minute 18/minute 118/79 Weight Height 115.3 kg 1.778 m Joseph Bragg MD 06/28/2024 11:29 AM Signed PATIENT NAME: Piper Rodríguez CLINIC NO.: [id number] ATTENDING PHYSICIAN: Joseph Bragg MD DATE OF SERVICE: June 28, [address] Donis Carias [address] [address] [facility] [address] thank you for referring Piper Rodríguez for [...] 18 lymph nodes involved by metastatic adenocarcinoma (3). - pT3 pN1b. [employer] in [employer]. Grand mother has colon cancer. No smoking. [...] lb) General appearance:ECOG PER (more content not included)...NormalJ.[facility] metabolic 2000 panelon 16-42-1338Wupwu gap [Moles/Vol]10 mmol/L Normal8-15[facility] HospitalComment on above:Order Comment: Specimen Type: BLOOD SPECIMENOrdering Facility: [facility] Address:[facility] [place], [place] [address]Performed By: #### 91665-3, 82501-2, 2777-1 ####[facility] LABORATORYCLIA [id number] [place] [address] [place] AMERICACalcium [Mass/Vol]8.9 mg/dLNormal8.5-10.2FAthol HospitalComment on above:Order Comment: Specimen Type: BLOOD SPECIMENOrdering Facility: [facility] Address:[address] [place], [place] [address]Performed By: #### 12500-2, , 2776-05 ####AMR[facility] LABORATORYCLIA [id number] [place] [id number] [place] OF AMERICAChloride [Moles/Vol]104 mmol/L Cmnoyo69-478Emnlfotf HospitalComment on above:Order Comment: Specimen Type: BLOOD SPECIMENOrdering Facility: [facility] Address:[address] [place], [place] [address]Performed By: #### 08445-7, , 2776-05 ####AMRITA LABORATORYCLIA [id number] [place] [address] [place] AMERICACO2 [Moles/Vol]24 mmol/KJhzwyp77-65Ilyhiyzl Hospital Comment on above:Order Comment: Specimen Type: BLOOD SPECIMENOrdering Facility: [facility] Address:[address] [place] [address] Performed By: #### 00841-8, , 2776-05 ####AMRITA LABORATORYCLIA [id number] [place] [address] [place] Creatinine [Mass/Vol]0.96 mg/dLNormal0.73-1.22[facility]ony State HospitalComment on above: Order Comment: Specimen Type: BLOOD SPECIMENOrdering Facility: [facility] Address:[address] [place], [place] [address]Performed By: #### 26762- 2, , 2776-05 ####AMRITA LABORATORYCLIA [id number] [place] [id number] [place] MERCY HEALTHCreatinine and Glomerular filtration rate.predicted panel (S/P/Bld)95 mL/min/1.73m???Normal>=60FaFoxborough State HospitalComment on above:Order Comment: Specimen Type: BLOOD SPECIMENOrdering Facility: [facility] Address:[address] [place], [place] [address]Result Comment: Estimated Glomerular Filtration Rate (eGFR) is [...] accurately reflect actual GFR. Performed By: #### 81567-9, , 2776-05 ####[facility] LABORATORYCLIA [id number] [place] [id number] [place] OF AMERICAGlucose [Mass/Vol]105 mg/qVFrlz59-73Ekbmtsxi HospitalComment on above:Order Comment: Specimen Type: BLOOD SPECIMENOrdering Facility: [facility] Address:[address] [place], [place] [address]Result Comment: The [place] Diabetes Association (ADA) provides guidance for cutoff [...] Standards of Medical Care in Diabetes 2016, [place] Diabetes Association. Diabetes Care. 2016.39(Suppl 1).Performed By: #### 21677-4, , 2776-05 ####[facility] LABORATORYCLIA [id number] [place] [id number] [place] AMERICAPotassium [Moles/Vol]4.2 mmol/LNormal3.7-5.1 [facility] on above:Order Comment: Specimen Type: BLOOD SPECIMENOrdering Facility: [facility] Address:[address] [place] [id number] By: #### 53787-7, , 2776-05 ####[facility] LABORATORYCLIA [id number] [place] [id number] [place] MERCY HEALTHSodium [Moles/Vol]138 mmol/FHtqnbq570-894Nwvsrdtt HospitalComment on above:Order Comment: Specimen Type: BLOOD SPECIMENOrdering Facility: [facility] Address:[address] [place], [place] [address]Performed By: #### 09773-1, 22889-6, 2776-05 ####AMRITA LABORATORYCLIA [id number] [place] [id number] [place] AMERICAUrea nitrogen [Mass/Vol]13 mg/dLNormal9-24Houston HospitalComment on above:Order Comment: Specimen Type: BLOOD SPECIMENOrdering Facility: [facility] Address:[address] [place], [place] [address]Performed By: #### 10519-3, , 2776-05 ####AMRITA LABORATORYCLIA [id number] [place] [id number] [facility] MERCY HEALTHCB W Auto Differential panel (Bld)on 06-23-2024 Basophils (Bld) [#/Vol]0.05 10*3/uLNormal<0.11L[facility] Colony State HospitalComment on above: Order Comment: Specimen Type: BLOOD SPECIMENOrdering Facility: [facility] Address:[address] [place], [place] [address]Performed By: #### 36030- 8 ####AMRITA LABORATORYCLIA [id number] [place] [id number] [place] AMERICABasophils/100 WBC (Bld)0.8 %NormalHouston Hospital Comment on above:Order Comment: Specimen Type: BLOOD SPECIMENOrdering Facility: [facility] Address:[address] [place] [address] Performed By: #### 11568-0 ####AMRITA LABORATORYCLIA [id number] [place] [id number] [place] MERCY HEALTHDifferential cell count method Nom (Bld)AutoNormalLovering Colony State HospitalComment on above:Order Comment: Specimen Type: BLOOD SPECIMENOrdering Facility: [facility] Address:[address] [place], [place] [address]Performed By: #### 97618-0 ####AM[facility] LABORATORYCLIA [id number] [place] [id number] [place] AMERICAEosinophils (Bld) [#/Vol]0.30 10*3/uLNormal<0.46[facility] HospitalComment on above:Order Comment: Specimen Type: BLOOD SPECIMENOrdering Facility: [facility] Address:[address] [place] [address] Performed By: #### 42366-2 ####AM[facility] LABORATORYCLIA [id number] [place] [id number] [place] AMERICAEosinophils/100 WBC (Bld)4.6 % NormalLovering Colony State HospitalComment on above:Order Comment: Specimen Type: BLOOD SPECIMENOrdering Facility: [facility] Address:[address] [place], [place] [address]Performed By: #### 73647-5 ####AM[facility] LABORATORYCLIA [id number] [place] [id number] [place] Erythrocyte distribution width (RBC) [Ratio]14.6 %Pobool16.5-15.0L[facility]ony State HospitalComment on above:Order Comment: Specimen Type: BLOOD SPECIMENOrdering Facility: [facility] Address:[address] [place], [place] [address]Performed By: #### 54622-9 ####[facility] LABORATORYCLIA [id number] [place] [id number] [place] AMERICAHematocrit (Bld) [Volume fraction]38.0 %Low39.0-51.0[facility] HospitalComment on above:Order Comment: Specimen Type: BLOOD SPECIMENOrdering Facility: [facility] Address:[address] [place], [place] [address]Performed By: #### 32541- 8 ####AM[facility] LABORATORYCLIA [id number] [place] [id number] [place] AMERICAHemoglobin (Bld) [Mass/Vol]11.9 g/dLLow13.0-17.0Fairview HospitalComment on above:Order Comment: Specimen Type: BLOOD SPECIMENOrdering Facility: [facility] Address:[address] [place], [place] [address]Performed By: #### 53972-1 ####AM[facility] LABORATORYCLIA [id number] [place] [id number] [place] AMERICAImmature granulocytes (Bld) [#/Vol]0.04 10*3/uLNormal<0.10[facility] HospitalComment on above:Order Comment: Specimen Type: BLOOD SPECIMENOrdering Facility: [facility] Address:[address] [place], [place] [address]Performed By: #### 81834- 8 ####[facility] LABORATORYCLIA [id number] [place] [id number] [place] AMERICAImmature granulocytes/100 WBC (Bld)0.6 %NormalHouston HospitalComment on above:Order Comment: Specimen Type: BLOOD SPECIMENOrdering Facility: [facility] Address:[address] [place], [place] [address]Performed By: #### 30924-8 ####AMRIAT LABORATORYCLIA [id number] [place] [id number] [place] AMERICALymphocytes (Bld) [#/Vol]1.78 10*3/uLNormal1.00-4.00Houston HospitalComment on above:Order Comment: Specimen Type: BLOOD SPECIMENOrdering Facility: [facility] Address:[address] [place], [place] [address]Performed By: #### 16067- 8 ####AM[facility] LABORATORYCLIA [id number] [place] [id number] [place] AMERICALymphocytes/100 WBC (Bld)27.0 %NormalHouston Hospital Comment on above:Order Comment: Specimen Type: BLOOD SPECIMENOrdering Facility: [facility] Address:[address] [place] [address] Performed By: #### 90403-4 ####AM[facility] LABORATORYCLIA [id number] [place] [address] (RBC) [Entitic mass]29.3 uxQkjtfi31.0-34.0[facility] HospitalComment on above:Order Comment: Specimen Type: BLOOD SPECIMENOrdering Facility: [facility] Address:[address] [place], [place] [address]Performed By: #### 71394-3 ####AM[facility]ITA LABORATORYCLIA [id number] [address] (RBC) [Mass/Vol]31.3 g/gOBqwrku23.5-36.0[facility] HospitalComment on above:Order Comment: Specimen Type: BLOOD SPECIMENOrdering Facility: [facility] Address:[address] [place], [place] [address]Performed By: #### 51242- 8 ####AM[facility] LABORATORYCLIA [id number] [address] (RBC) [Entitic vol]93.6 sJLxqyct91.0-100.0[facility] HospitalComment on above:Order Comment: Specimen Type: BLOOD SPECIMENOrdering Facility: [facility] Address:[address] [place], [place] [address]Performed By: #### 45640-5 ####AM[facility] LABORATORYCLIA [id number] [place] [address] [place] AMERICAMonocytes (Bld) [#/Vol] 0.84 10*3/uLNormal<0.87[facility] HospitalComment on above:Order Comment: Specimen Type: BLOOD SPECIMENOrdering Facility: [facility] Address:[address] [place], [place] [address]Performed By: #### 25527-6 ####AMRITA LABORATORYCLIA [id number] [place] [address] [place] AMERICAMonocytes/100 WBC (Bld)12.7 %NormalFafree hospital for women HospitalComment on above: Order Comment: Specimen Type: BLOOD SPECIMENOrdering Facility: [facility] Address:[address] [place], [place] [address]Performed By: #### 45351- 8 ####MAUREENJAMMIE LABORATORYCLIA [id number] [place] [id number] [place] AMERICANeutrophils (Bld) [#/Vol]3.58 10*3/uLNormal1.45-7.50 Houston HospitalComment on above:Order Comment: Specimen Type: BLOOD SPECIMENOrdering Facility: [facility] Address:[address] [place], [place] [address]Performed By: #### 36231-4 ####AMRITA LABORATORYCLIA [id number] [place] [id number] [place] Neutrophils/100 WBC (Bld)54.3 %NormalHouston HospitalComment on above:Order Comment: Specimen Type: BLOOD SPECIMENOrdering Facility: [facility] Address:[address] [place], [place] [address]Performed By: #### 80858- 8 ####[facility] LABORATORYCLIA [id number] [place] [id number] [place] AMERICANucleated RBC (Bld) [#/Vol]10*3/uLNormal<0.01Houston HospitalComment on above:Order Comment: Specimen Type: BLOOD SPECIMENOrdering Facility: [facility] Address:[address] [place], [place] [address]Performed By: #### 05782-4 ####AM[facility] LABORATORYCLIA [id number] [place] [id number] [place] AMERICANucleated RBC/100 WBC (Bld) [Ratio]0.0 /100 WBCNormalHouston HospitalComment on above:Order Comment: Specimen Type: BLOOD SPECIMENOrdering Facility: [facility] Address:[address] [place], [place] [address]Performed By: #### 12172-9 ####AM[facility] LABORATORYCLIA [id number] [place] [id number] [place] AMERICAPlatelet mean volume (Bld) [Entitic vol]10.8 fLNormal 9.0-12.7Fplunkett memorial hospital HospitalComment on above:Order Comment: Specimen Type: BLOOD SPECIMENOrdering Facility: [facility] Address:[address] [place], [place] [address]Performed By: #### 27684-7 ####AMRITA LABORATORYCLIA [id number] [place] [id number] [facility] Platelets (Bld) [#/Vol]187 10*3/pFJenntg548-108Vszjhpgy HospitalComment on above:Order Comment: Specimen Type: BLOOD SPECIMENOrdering Facility: [facility] Address:[address] [place], [place] [address]Performed By: #### 41848-4 ####MAUREENJAMMIE LABORATORYCLIA [id number] [place] [id number] [facility] HOSPITALRBC (d) [#/Vol]4.06 10*6/uLLow4.20-6.00[facility] HospitalComment on above:Order Comment: Specimen Type: BLOOD SPECIMENOrdering Facility: [facility] Address:[address] [place], [place] [address]Performed By: #### 03455-5 ####[facility]ENJ[facility] LABORATORYCLIA [id number] [place] [id number] [facility] HOSPITALWBC (d) [#/Vol]6.59 10*3/uLNormal3.70-11.00Houston HospitalComment on above:Order Comment: Specimen Type: BLOOD SPECIMENOrdering Facility: [facility] Address:[address] [place], [place] [address]Performed By: #### 39893-8 ####FAIRJAMMIE LABORATORYIA [id number] [place] [id number] [facility] HOSPITALCNDSon 63-45-2927WHDVGCH ID: [id number] Author: LASHONDA DELGADO MD Service: Colorectal Author [...] Your Medications These medications were sent to [facility] [place] [id number] - [address] - [phone] [place] [address] methocarbamol 500 mg tablet Future Appointments: Future Appointments Date Time Provider Department Center 07/05/2024 10:40 AM 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 APRN.[employer]MENT IN[employer]ER MLG[facility] You will receive a phone call from our clinic nurse to check in on you in 5-7 days from discharge before your follow up appointment. Signed by Physician: Manny KeenermalLovering Colony State HospitalMagnesium SerPl-mCncon 85-09-3174Zrrfooafp [Mass/Vol]2.1 mg/dLNormal1.7-2.3Fplunkett memorial hospital HospitalComment on above:Order Comment: Specimen Type: BLOOD SPECIMENOrdering Facility: [facility] Address:[address] [place], [place] [address]Performed By: #### 61891-5, 76812-5, 2776-05 ####[facility] LABORATORYCLIA [id number] [place] [id number] [place] Phosphate SerPl-mCncon 86-03-4383Cxnybingf [Mass/Vol]3.2 mg/dLNormal2.7-4.8 [facility] HospitalComment on above:Order Comment: Specimen Type: BLOOD SPECIMENOrdering Facility: [facility] Address:[address] [place], [place] [address]Performed By: #### 55940-2, , 2776-05 ####[facility] LABORATORYCLIA [id number] [place] [id number] [place] MERCY HEALTHBasic metabolic 2000 panelon 57-03-6598Uznjs gap [Moles/Vol]9 mmol/L Normal8-15[facility] State HospitalComment on above:Order Comment: Specimen Type: BLOOD SPECIMENOrdering Facility: [facility] Address:[address] [place], [place] [address]Performed By: #### 15425-2, 2776-05, ####[facility] LABORATORYCLIA [id number] [place] [id number] [place] AMERICACalcium [Mass/Vol]8.9 mg/dLNormal8.5-10.2FAthol HospitalComment on above:Order Comment: Specimen Type: BLOOD SPECIMENOrdering Facility: [facility] Address:[address] [place], [place] [address]Performed By: #### 10811-2, 27711-21, ####AMRITA LABORATORYCLIA [id number] [place] [address] [place] AMERICAChloride [Moles/Vol]103 mmol/L Hofneq42-579Gwarhdtg HospitalComment on above:Order Comment: Specimen Type: BLOOD SPECIMENOrdering Facility: [facility] Address:[address] [place], [place] [address]Performed By: #### 38633-6, 2776-05, ####AMRITA LABORATORYCLIA [id number] [place] [id number] [place] AMERICACO2 [Moles/Vol]24 mmol/PDxtkwd98-54Kivxzmqw Hospital Comment on above:Order Comment: Specimen Type: BLOOD SPECIMENOrdering Facility: [facility] Address:[address] [place] [address] Performed By: #### 83094-1, 2776-05, ####AMRITA LABORATORYCLIA [id number] [place] [id number] [place] Creatinine [Mass/Vol]0.93 mg/dLNormal0.73-1.22L[facility] State HospitalComment on above: Order Comment: Specimen Type: BLOOD SPECIMENOrdering Facility: [facility] Address:[address] [place], [place] [address]Performed By: #### 83110- 2, 2776-05, ####AMRITA LABORATORYCLIA [id number] [place] [address] [place] AMERICACreatinine and Glomerular filtration rate.predicted panel (S/P/Bld)98 mL/min/1.73m???Normal>=60FaFoxborough State HospitalComment on above:Order Comment: Specimen Type: BLOOD SPECIMENOrdering Facility: [facility] Address:[address] [place], [place] [address]Result Comment: Estimated Glomerular Filtration Rate (eGFR) is [...] accurately reflect actual GFR. Performed By: #### 61237-5, 27711-21, ####[facility] LABORATORYCLIA [id number] [place] [address] [place] AMERICAGlucose [Mass/Vol]107 mg/gPApaz26-07VgbtbxblGrafton State Hospital on above:Order Comment: Specimen Type: BLOOD SPECIMENOrdering Facility: [facility] Address:[address] [place], [place] [address]Result Comment: The [place] Diabetes Association (ADA) provides guidance for cutoff [...] Standards of Medical Care in Diabetes 2016, [place] Diabetes [employer]. Diabetes Care. 2016.39(Suppl 1).Performed By: #### 99231-8, 2776-05, ####AMRITA LABORATORYCLIA [id number] [place] [address] [place] AMERICAPotassium [Moles/Vol]4.6 mmol/LNormal3.7-5.1 [facility] on above:Order Comment: Specimen Type: BLOOD SPECIMENOrdering Facility: [facility] Address:[address] [place] [address]Qufbtmwmj By: #### 70050-5, 27711-21, ####[facility] LABORATORYCLIA [id number] [place] [address] [place] AMERICASodium [Moles/Vol]136 mmol/OOlborl465-309HizoiheeGrafton State Hospital on above:Order Comment: Specimen Type: BLOOD SPECIMENOrdering Facility: [facility] Address:[address] [place], [place] [address]Performed By: #### 58542-8, 2776-05, ####AMRITA LABORATORYCLIA [id number] [place] [address] [place] AMERICAUrea nitrogen [Mass/Vol]13 mg/dLNormal9-24Houston HospitalComment on above:Order Comment: Specimen Type: BLOOD SPECIMENOrdering Facility: [facility] Address:[address] [place], [place] [address]Performed By: #### 94332-5, 2776-05, ####AMRITA LABORATORYCLIA [id number] [place] [id number] [place] AMERICACBC W Auto Differential panel (Bld)on 06-22-2024 Basophils (Bld) [#/Vol]0.03 10*3/uLNormal<0.11Houston HospitalComment on above: Order Comment: Specimen Type: BLOOD SPECIMENOrdering Facility: [facility] Address:[address] [place], [place] [address]Performed By: #### 22828- 8 ####AMRITA LABORATORYCLIA [id number] [place] [id number] [place] AMERICABasophils/100 WBC (Bld)0.3 %NormalLovering Colony State Hospital Comment on above:Order Comment: Specimen Type: BLOOD SPECIMENOrdering Facility: [facility] Address:[address] [place] [address] Performed By: #### 68998-8 ####AMRITA LABORATORYCLIA [id number] [place] [id number] [place] AMERICADifferential cell count method Nom (Bld)AutoNormalLovering Colony State HospitalComment on above:Order Comment: Specimen Type: BLOOD SPECIMENOrdering Facility: [facility] Address:[address] [place], [place] [address]Performed By: #### 80669-6 ####AMRITA LABORATORYCLIA [id number] [place] [id number] [place] AMERICAEosinophils (Bld) [#/Vol]0.12 10*3/uLNormal<0.46Houston HospitalComment on above:Order Comment: Specimen Type: BLOOD SPECIMENOrdering Facility: [facility] Address:[address] [place] [address] Performed By: #### 34439-4 ####AMRITA LABORATORYCLIA [id number] [place] [id number] [place] AMERICAEosinophils/100 WBC (Bld)1.4 % NormalHouston HospitalComment on above:Order Comment: Specimen Type: BLOOD SPECIMENOrdering Facility: [facility] Address:[address] [place], [place] [address]Performed By: #### 92832-5 ####AMRITA LABORATORYCLIA [id number] [place] [id number] [place] Erythrocyte distribution width (RBC) [Ratio]14.6 %Hozcvg46.5-15.0[facility] HospitalComment on above:Order Comment: Specimen Type: BLOOD SPECIMENOrdering Facility: [facility] Address:[address] [place], [place] [address]Performed By: #### 35004-6 ####AMRITA LABORATORYCLIA [id number] [place] [id number] [place] OF AMERICAHematocrit (Bld) [Volume fraction]40.4 %Lruqyj17.0-51.0[facility] HospitalComment on above:Order Comment: Specimen Type: BLOOD SPECIMENOrdering Facility: [facility] Address:[address] [place], [place] [address]Performed By: #### 43481- 8 ####AMRITA LABORATORYCLIA [id number] [place] [id number] [place] OF AMERICAHemoglobin (Bld) [Mass/Vol]12.8 g/dLLow13.0-17.0[facility] HospitalComment on above:Order Comment: Specimen Type: BLOOD SPECIMENOrdering Facility: [facility] Address:[address] [place], [place] [address]Performed By: #### 75571-9 ####AMRITA LABORATORYCLIA [id number] [place] [id number] [place] AMERICAImmature granulocytes (Bld) [#/Vol]0.05 10*3/uLNormal<0.10[facility] HospitalComment on above:Order Comment: Specimen Type: BLOOD SPECIMENOrdering Facility: [facility] Address:[address] [place], [place] [address]Performed By: #### 27952- 8 ####AMRITA LABORATORYCLIA [id number] [place] [id number] [place] AMERICAImmature granulocytes/100 WBC (Bld)0.6 %NormalHouston HospitalComment on above:Order Comment: Specimen Type: BLOOD SPECIMENOrdering Facility: [facility] Address:[address] [place], [place] [address]Performed By: #### 73573-3 ####AMRITA LABORATORYCLIA [id number] [place] [address] [place] MERCY HEALTHLymphocytes (Bld) [#/Vol]1.14 10*3/uLNormal1.00-4.00[place] HospitalComment on above:Order Comment: Specimen Type: BLOOD SPECIMENOrdering Facility: [facility] Address:[address] [place], [place] [address]Performed By: #### 71846- 8 ####AMRITA LABORATORYCLIA [id number] [place] [id number] [place] OF AMERICALymphocytes/100 WBC (Bld)13.1 %NormalHouston Hospital Comment on above:Order Comment: Specimen Type: BLOOD SPECIMENOrdering Facility: [facility] Address:[address] [place] [address] Performed By: #### 94426-5 ####AMRITA LABORATORYCLIA [id number] [place] [id number] [place] AMERICAMC (RBC) [Entitic mass]29.5 ukQthrbv77.0-34.0[facility] HospitalComment on above:Order Comment: Specimen Type: BLOOD SPECIMENOrdering Facility: [facility] Address:[address] [place], [place] [address]Performed By: #### 45790-4 ####AMRITA LABORATORYCLIA [id number] [place] [id number] [facility] OF MERCY HEALTHMCHC (RBC) [Mass/Vol]31.7 g/fCHejkzq20.5-36.0[place] HospitalComment on above:Order Comment: Specimen Type: BLOOD SPECIMENOrdering Facility: [facility] Address:[address] [place], [place] [address]Performed By: #### 59919- 8 ####AMRITA LABORATORYCLIA [id number] [place] [id number] UNITED INOVA HEALTH SYSTEMV (RBC) [Entitic vol]93.1 oTAbpkga15.0-100.0[place] HospitalComment on above:Order Comment: Specimen Type: BLOOD SPECIMENOrdering Facility: [facility] Address:[address] [place], [place] [address]Performed By: #### 54819-7 ####AMRITA LABORATORYCLIA [id number] [place] [id number] [place] AMERICAMonocytes (Bld) [#/Vol] 1.05 10*3/uLHigh<0.87[facility] HospitalComment on above:Order Comment: Specimen Type: BLOOD SPECIMENOrdering Facility: [facility] Address:[address] [place], [place] [address]Performed By: #### 46449-1 ####AMRITA LABORATORYCLIA [id number] [place] [id number] [place] AMERICAMonocytes/100 WBC (Bld)12.1 %NormalFafree hospital for women HospitalComment on above: Order Comment: Specimen Type: BLOOD SPECIMENOrdering Facility: [facility] Address:[address] [place], [place] [address]Performed By: #### 15851- 8 ####MARITA LABORATORYCLIA [id number] [place] [id number] [place] AMERICANeutrophils (Bld) [#/Vol]6.31 10*3/uLNormal1.45-7.50 [place] HospitalComment on above:Order Comment: Specimen Type: BLOOD SPECIMENOrdering Facility: [facility] Address:[address] [place], [place] [address]Performed By: #### 75502-7 ####MAUREENJAMMIE LABORATORYCLIA [id number] [place] [id number] [place] Neutrophils/100 WBC (Bld)72.5 %NormalHouston HospitalComment on above:Order Comment: Specimen Type: BLOOD SPECIMENOrdering Facility: [facility] Address:[address] [place], [place] [address]Performed By: #### 77502- 8 ####AMRITA LABORATORYCLIA [id number] [place] [address] [place] AMERICANucleated RBC (Bld) [#/Vol]10*3/uLNormal<0.01[place] HospitalComment on above:Order Comment: Specimen Type: BLOOD SPECIMENOrdering Facility: [facility] Address:[address] [place], [place] [address]Performed By: #### 88978-8 ####AMRITA LABORATORYCLIA [id number] [place] [address] [place] AMERICANucleated RBC/100 WBC (Bld) [Ratio]0.0 /100 WBCNormalHouston HospitalComment on above:Order Comment: Specimen Type: BLOOD SPECIMENOrdering Facility: [facility] Address:[address] [place], [place] [address]Performed By: #### 04906-6 ####AMRITA LABORATORYCLIA [id number] [place] [id number] [place] AMERICAPlatelet mean volume (Bld) [Entitic vol]10.7 fLNormal 9.0-12.7Fplunkett memorial hospital HospitalComment on above:Order Comment: Specimen Type: BLOOD SPECIMENOrdering Facility: [facility] Address:[address] [place], [place] [address]Performed By: #### 30838-4 ####AMRITA LABORATORYCLIA [id number] [place] [address] [place] Platelets (Bld) [#/Vol]192 10*3/wCYrjwqw003-824Dljgsavv HospitalComment on above:Order Comment: Specimen Type: BLOOD SPECIMENOrdering Facility: [facility] Address:[address] [place], [place] [address]Performed By: #### 69543-2 ####AMRITA LABORATORYCLIA [id number] [place] [id number] [place] [facility] & HEART CENTERRBC (Bld) [#/Vol]4.34 10*6/uLNormal4.20-6.00 [place] HospitalComment on above:Order Comment: Specimen Type: BLOOD SPECIMENOrdering Facility: [facility] Address:[address] [place], [place] [address]Performed By: #### 66445-5 ####AMRITA LABORATORYCLIA [id number] [place] [address] [place] OF AMERICAW (Bld) [#/Vol]8.70 10*3/uLNormal3.70-11.00[facility] HospitalComment on above:Order Comment: Specimen Type: BLOOD SPECIMENOrdering Facility: [facility] Address:[address] [place], [place] [address]Performed By: #### 10413- 8 ####AMRITA LABORATORYCLIA [id number] [place] [id number] [place] AMERICAMagnesium SerPl-mCncon 50-24-4784Kvtqkdupt [Mass/Vol]2.1 mg/dLNormal1.7-2.3Fplunkett memorial hospital HospitalComment on above:Order Comment: Specimen Type: BLOOD SPECIMENOrdering Facility: [facility] Address:[address] [place], [place] [address]Performed By: #### 31536-8, 2777-1, 27009-7 ####AMRITA LABORATORYCLIA [id number] [place] [id number] [place] AMERICAPhosphate SerPl-mCncon 34-99-4662Vyhnthsjq [Mass/Vol]3.8 mg/dLNormal2.7-4.8[facility] HospitalComment on above:Order Comment: Specimen Type: BLOOD SPECIMENOrdering Facility: [facility] Address:[address] [place], [place] [address]Performed By: #### 17635-3, 2777-1, 74134-7 ####[facility] [id number] [place] [address] [facility] POSTPROC EVALon 35-05-1696XMPH POSTPROC EVALHNO ID: [id number] Author: OLGA LIDIA WHITEHEAD MD Service: Anesthesiology [...] Surgeons: Donis Carias MD Responsible Provider: Olga iLdia Whitehead MD Anesthesia Type: general ASA Status: [...] June 21, 2024 TIME: 5:30 PM CSN: [id number] Rehabilitation Center PRE-OPon 61-05-9977PSVX PRE-OPHNO ID: [id number] Author: YU BERRIOS MD Service: Anesthesiology Author [...] June 21, 2024 TIME: 3:43 PM CSN: [id number] Hospital panel Auto (Bld)on 87-19-4924Whyfdxvywzs distribution width (RBC) [Ratio]14.7 %Nonshu20.5-15.0 [facility] HospitalComment on above:Order Comment: Specimen Type: BLOOD SPECIMENOrdering Facility: [facility] Address:[address] [place], [place] [address]Performed By: #### 95325-4 ####AMRITA LABORATORYCLIA [id number] [address] Hematocrit (Bld) [Volume fraction]45.2 %Qvjxfo14.0-51.0[facility] HospitalComment on above:Order Comment: Specimen Type: BLOOD SPECIMENOrdering Facility: [facility] Address:[address] [place] [address] Performed By: #### 70579-7 ####AMRITA LABORATORYCLIA [id number] [address]ETHemoglobin (Bld) [Mass/Vol] 14.3 g/yEYghsys09.0-17.0[facility] HospitalComment on above:Order Comment: Specimen Type: BLOOD SPECIMENOrdering Facility: [facility] Address:[address] [place], [place] [address]Performed By: #### 39020-5 ####AMRITA LABORATORYCLIA [id number] [address] (RBC) [Entitic mass]29.4 clLdvldh14.0-34.0[facility] HospitalComment on above:Order Comment: Specimen Type: BLOOD SPECIMENOrdering Facility: [facility] Address:[address] [place], [place] [address]Performed By: #### 68304-7 ####AMRITA LABORATORYCLIA [id number] [place] [id number] [facility]APTIST HOSPITALMCHC (RBC) [Mass/Vol] 31.6 g/sNEujajr18.5-36.0[facility] HospitalComment on above:Order Comment: Specimen Type: BLOOD SPECIMENOrdering Facility: [facility] Address:[address] [place], [place] [address]Performed By: #### 59469-4 ####AMRITA LABORATORYCLIA [id number] [address]V (RBC) [Entitic vol]93.0 zMKvmvty66.0-100.0[facility] HospitalComment on above:Order Comment: Specimen Type: BLOOD SPECIMENOrdering Facility: [facility] Address:[address] [place], [place] [address]Performed By: #### 03632-1 ####AMRITA LABORATORYCLIA [id number] [place] [address] [place] AMERICANucleated RBC (Bld) [#/Vol]10*3/uLNormal<0.01[facility] HospitalComment on above:Order Comment: Specimen Type: BLOOD SPECIMENOrdering Facility: [facility] Address:[address] [place], [place] [address]Performed By: #### 69014-8 ####AMRITA LABORATORYCLIA [id number] [place] [address] [place] AMERICAPlatelet mean volume (Bld) [Entitic vol]11.0 fLNormal 9.0-12.7Fplunkett [facility] hospital HospitalComment on above:Order Comment: Specimen Type: BLOOD SPECIMENOrdering Facility: [facility] Address:[address] [place], [place] [address]Performed By: #### 60092-7 ####AMRITA LABORATORYCLIA [id number] [place] [address] [place] Platelets (Bld) [#/Vol]222 10*3/gAZnkdvs660-656Eustcotp HospitalComment on above:Order Comment: Specimen Type: BLOOD SPECIMENOrdering Facility: [facility] Address:[address] [place], [place] [address]Performed By: #### 25654-4 ####AMRITA LABORATORYCLIA [id number] [place] [address] [place] AMERICARBC (Bld) [#/Vol]4.86 10*6/uLNormal4.20-6.00 [place] HospitalComment on above:Order Comment: Specimen Type: BLOOD SPECIMENOrdering Facility: [facility] Address:[address] [place], [place] [address]Performed By: #### 32738-7 ####AMRITA LABORATORYCLIA [id number] [address] STATES OF AMERICAWBC (Bld) [#/Vol]7.87 10*3/uLNormal3.70-11.00[facility] HospitalComment on above:Order Comment: Specimen Type: BLOOD SPECIMENOrdering Facility: [facility] Address:[address] [place], [place] [address]Performed By: #### 85042- 2 ####[facility] LABORATORYCLIA [id number] [place] [address] [facility] HOSPITALCNPNon [id number] ([facility]) PIPER RODRÍGUEZ ([id number]) 1970 M Date Time Provider Department 06/21/24 DONIS CARIAS [facility] During your visit today, we [...] for his appointment tomorrow vs going to [place] [facility]. Ultimately, he thinks he will go to [place] [facility]. Allergies As of Date: 06/21/2024 (No [...] 06/16/2024 Encounter Status:Closed by JOCELYN CANTRELL on 06/21/24NormalCMedina HospitalComprehensive metabolic 2000 panelon 38-29-8887Vmvyzhq [Mass/Vol]4.2 g/dLNormal3.9-4.9FaFoxborough State HospitalComment on above:Order Comment: Specimen Type: BLOOD SPECIMENOrdering Facility: [facility] Address:[address] [place], [place] [address]Performed By: #### 91643-9, 02781-0 ####AMRITA LABORATORYCLIA [id number] [place] [id number] [place] AMERICAALP [Catalytic activity/Vol]72 U/CVaqzmn19-132Lzokjrmf HospitalComment on above:Order Comment: Specimen Type: BLOOD SPECIMENOrdering Facility: [facility] Address:[address] [place] [address] Performed By: #### 81104-5, 58019-3 ####AMRITA LABORATORYCLIA [id number] [place] [id number] [place] AMERICAALT [Catalytic activity/Vol]91 U/PDpgm06-59Wywxzbyc HospitalComment on above:Order Comment: Specimen Type: BLOOD SPECIMENOrdering Facility: [facility] Address:[address] [place], [place] [address]Performed By: #### 62130-9, ####AMRITA LABORATORYCLIA [id number] [place] [address] [place] AMERICAAnion gap [Moles/Vol]11 mmol/LNormal8-15[facility] HospitalComment on above:Order Comment: Specimen Type: BLOOD SPECIMENOrdering Facility: [facility] Address:[address] [place], [place] [address]Performed By: #### 82132-9, ####AMRITA LABORATORYCLIA [id number] [place] [address] [place] AMERICAAST [Catalytic activity/Vol]58 U/LGkog26-01Flrjorja HospitalComment on above:Order Comment: Specimen Type: BLOOD SPECIMENOrdering Facility: [facility] Address:[address] [place], [place] [address]Performed By: #### 28246- 9, 59148-5 ####AMRITA LABORATORYCLIA [id number] [place] [address] [place] AMERICABilirubin [Mass/Vol]0.3 mg/dLNormal0.2-1.3 [place] HospitalComment on above:Order Comment: Specimen Type: BLOOD SPECIMENOrdering Facility: [facility] Address:[address] [place], [place] [address]Performed By: #### 95525-2, 35576-7 ####AMRITA LABORATORYCLIA [id number] [place] [address] [place] AMERICACalcium [Mass/Vol]9.6 mg/dLNormal8.5-10.2FAthol HospitalComment on above:Order Comment: Specimen Type: BLOOD SPECIMENOrdering Facility: [facility] Address:[address] [place], [place] [address]Performed By: #### 00131-8, 99461-9 ####AMRITA LABORATORYCLIA [id number] [place] [address] [place] AMERICAChloride [Moles/Vol]99 mmol/L Dgbnrm98-922Jetpzrzx HospitalComment on above:Order Comment: Specimen Type: BLOOD SPECIMENOrdering Facility: [facility] Address:[address] [place], [place] [address]Performed By: #### 21373-2, 94774-2 ####AMRITA LABORATORYCLIA [id number] [place] [address] [place] AMERICACO2 [Moles/Vol]28 mmol/QReixjj86-86Hqqfnbdm HospitalComment on above: Order Comment: Specimen Type: BLOOD SPECIMENOrdering Facility: [facility] Address:[address] [place], [place] [address]Performed By: #### 80020- 9, 00992-8 ####AMRITA LABORATORYCLIA [id number] [place] [address] [place] AMERICACreatinine [Mass/Vol]0.99 mg/dLNormal0.73-1.22 [facility] HospitalComment on above:Order Comment: Specimen Type: BLOOD SPECIMENOrdering Facility: [facility] Address:[address] [place], [place] [address]Performed By: #### 26256-1, 93898-8 ####AMRITA LABORATORYCLIA [id number] [place] [id number] [place] AMERICACreatinine and Glomerular filtration rate.predicted panel (S/P/Bld)91 mL/min/1.73m???Normal>=60Fairview HospitalComment on above:Order Comment: Specimen Type: BLOOD SPECIMENOrdering Facility: [facility] Address:[address] [place], [place] [address]Jpupxv Comment: Estimated Glomerular Filtration Rate (eGFR) is calculated using the 2020 CKD-EPI creatinine equation. This equation utilizes serum creatinine, sex, and age as parameters. The creatinine assay has traceable calibration to isotope dilution-mass spectrometry. Refer to KDIGO guidelines for clinical interpretation. In patients with unstable renal function, e.g. those with acute kidney injury, the eGFR may not accurately reflect actual GFR.Performed By: #### 81134-5, 37713-1 ####AMRITA LABORATORYCLIA [id number] [place] [address] [place] AMERICAGlucose [Mass/Vol]102 mg/pSXbss17-61Vlwmau[address] Comment on above:Order Comment: Specimen Type: BLOOD SPECIMENOrdering Facility: [facility] Address:[address] [place] [id number] Comment: The [place] Diabetes Association (ADA) provides guidance for cutoff [...] Standards of Medical Care in Diabetes 2016, [place] Diabetes Association. Diabetes Care. 2016.39(Suppl 1).Performed By: #### 67687-7, 00794-3 ####[facility] LABORATORYCLIA [id number] [place] [address] [place] AMERICAPotassium [Moles/Vol]4.3 mmol/LNormal3.7-5.1FAthol HospitalComment on above:Order Comment: Specimen Type: BLOOD SPECIMENOrdering Facility: [facility] Address:[address] [place] [id number] By: #### 48743-6, 45916-4 ####AMRITA LABORATORYCLIA [id number] [place] [address] [place] AMERICAProtein [Mass/Vol]8.0 g/dLNormal6.3-8.0[facility] HospitalComment on above:Order Comment: Specimen Type: BLOOD SPECIMENOrdering Facility: [facility] Address:[address] [place], [place] [address]Performed By: #### 88232-5, 97045-6 ####AMRITA LABORATORYCLIA [id number] [place] [address] [place] AMERICASodium [Moles/Vol]138 mmol/HIqlfub151-769Salbgrfx HospitalComment on above:Order Comment: Specimen Type: BLOOD SPECIMENOrdering Facility: [facility] Address:[address] [place], [place] [address]Performed By: #### 18255-0, 51980-4 ####AMRITA LABORATORYCLIA [id number] [place] [address] [place] AMERICAUrea nitrogen [Mass/Vol]14 mg/dLNormal9-24[facility] HospitalComment on above:Order Comment: Specimen Type: BLOOD SPECIMENOrdering Facility: [facility] Address:[address] [place], [place] [address]Performed By: #### 92066- 9, 19725-2 ####AMRITA LABORATORYCLIA [id number] [place] [address] [place] OF AMERICAED NOTEon 55-24-2875MQ NOTEHNO ID: [id number] Author: JOSÉ MIGUEL LARA, LINDSAY Service: ? Author Type: Registered Nurse Type: ED Notes Filed: 06/21/2024 13:48 Note Text: Bed: 55-ED Expected date: Expected time: Means of arrival: Comments: triageNoNew [facility] S[facility] HospitalED PROV NOTEon 79-86-6111KA PROV NOTEHNO ID: [id number] Author: GINO ANGEL MD Service: Emergency Medicine [...] on June [address] Carias at [facility]. States had been doing well. States that yesterday the wound opened minimally. He presented to [facility] for evaluation. States the physician [...] and evaluation at bed (more content not included)...[facility] HospitalED Triage Noteon 91-11-2402JJ Triage NoteHNO ID: [id number] Author: ETHAN DUMONT DO Service: Emergency Medicine [...] HANDP as well as MDM SIGNATURE: Ethan Dumont, [facility] CenterEKGon 06-21-2024 ElectrocardiogramVentricular Rate : 47 BPM Atrial Rate : 48 BPM P-R Interval : 173 ms QRS Duration : 105 ms Q-T Interval : 447 ms QTC Calculation(Bazett) : 396 ms Calculated P [place] : 44 degrees Calculated R [place] : 40 degrees Calculated T [place] : 58 degrees Sinus bradycardia Otherwise Normal ECG Confirmed by MD ANGEL JAMES ([id number]) on 06/21/2024 2:14:56 PM NAME : PIPER RODRÍGUEZ PID : [id number] : 1970 Gender : Male Race : [...] Referred By : , Acquired by : [id number],[facility] PHYSICAL 33-81-2952JSFIHWO PHYSICALHNO ID: [id number] Author: MAIKEL JUSTICE MD Service: Colorectal Author [...] contents. They were worried so presented to [place] [facility]. Pt's showed me a photo of [...] concerns and was told to present to [place] [facility] for further evaluation. Per pt has [...] MD DATE: June 21, 2024 TIME: 2:56 PMNormalFairohiohealth grove city methodist hospital HospitalMagnesium SerPl-mCncon 29-20-4377Ncmvytbdd [Mass/Vol]2.3 mg/dLNormal1.7-2.3Fairview HospitalComment on above:Order Comment: Specimen Type: BLOOD SPECIMENOrdering Facility: [facility] Address:[address] [place], [place] [address]Performed By: #### 55964-4, 00975-4 ####AMRITA LABORATORYCLIA [id number] [address]URSING PROGon 57-38-0694OCLMWNU PROARUNANO ID: [id number] Author: OLYA SIEGEL RN Service: Nursing Author Type: Registered Nurse Type: Nursing Progress Note Filed: 06/21/2024 19:56 Note Text: Transfer Note: PATIENT NAME: Piper Rodríguez Patient Location: [place] [address] Room: [place] [address] Patient transferred into room/unit [facility] in stable condition. 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 She states it has opened up. Asking to speak to nurse to find out if they should go to local ER CB# [phone] Jocelyn Cantrell RN 06/20/2024 3:17 PM Signed [...] LINDSAY - Fully Assessed Reason for Visit: Post [...] 06/16/2024 Encounter Status:Closed by JOCELYN CANTRELL on 06/20/24NormalCAvita Health System [facility] 58-63-7643CCDLRxgdlk TextNoFort Hamilton Hospital 18-75-9522NDIIKuirykhwz ([facility]) PIPER RODRÍGUEZ ([id number]) 1970 M Date Time Provider Department 06/19/24 DONIS CARIAS [facility] During your visit today, we recorded the following information about you: Maura Casiano 06/19/2024 1:29 PM Signed Patient had surgery on 06/14/24. He is asking to speak to a nurse about his restrictions and what he can and cannot do # [phone] Jocelyn Cantrell RN 06/19/2024 1:48 PM Signed [...] Fully Assessed Reason for Visit: Patient Question [9191] Prescriptions as of 06/19/2024 - acetaminophen (TYLENOL) [...] 06/16/2024 Encounter Status:Closed by JOCELYN CANTRELL on 06/19/24NoalCCleveland Clinic Union Hospital metabolic 2000 panelon 06-54-4538Kujih gap [Moles/Vol]12 mmol/L Normal8-15[place] HospitalComment on above:Order Comment: Specimen Type: BLOOD SPECIMENOrdering Facility: [facility] Address:[address] [place], [place] [address]Performed By: #### [id number] ####[facility] LABORATORYCLIA [id number] [place] [address] [place] AMERICACalcium [Mass/Vol]8.9 mg/dLNormal8.5-10.2Fplunkett memorial hospital HospitalComment on above:Order Comment: Specimen Type: BLOOD SPECIMENOrdering Facility: [facility] Address:[address] [place], [place] [address]Performed By: #### [id number]- [id number] ####AMRITA LABORATORYCLIA [id number] [place] [address] [place] OF AMERICAChloride [Moles/Vol]103 mmol/TVdsjmj64-470Qzrfmrwt HospitalComment on above:Order Comment: Specimen Type: BLOOD SPECIMENOrdering Facility: [facility] Address:[address] [place], [place] [address]Performed By: #### [id number] ####AMRITA LABORATORYCLIA [id number] [place] [id number] [place] AMERICACO2 [Moles/Vol]22 mmol/XUqwxot91-65Cemkxbka HospitalComment on above:Order Comment: Specimen Type: BLOOD SPECIMENOrdering Facility: [facility] Address:[address] [place], [place] [address]Performed By: #### 95552-2 ####AMRITA LABORATORYCLIA [id number] [place] [id number] [place] AMERICACreatinine [Mass/Vol]0.90 mg/dLNormal0.73-1.22[facility] on above:Order Comment: Specimen Type: BLOOD SPECIMENOrdering Facility: [facility] Address:[address] [place] [address] Performed By: #### 67536-3 ####AMRITA LABORATORYCLIA [id number] [place] [id number] [place] AMERICACreatinine and Glomerular filtration rate.predicted panel (S/P/Bld)102 mL/min/1.73m???Normal>=60[facility] on above:Order Comment: Specimen Type: BLOOD SPECIMENOrdering Facility: [facility] Address:[address] [place], [place] [address]Result Comment: Estimated Glomerular Filtration Rate (eGFR) is [...] accurately reflect actual GFR. Performed By: #### 79487-9 ####AMRITA LABORATORYCLIA [id number] [place] [id number] [place] AMERICAGlucose [Mass/Vol]162 mg/dL Wqug34-70ItruuhaaGrafton State Hospital on above:Order Comment: Specimen Type: BLOOD SPECIMENOrdering Facility: [facility] Address:[address] [place], [place] [address]Result Comment: The [place] Diabetes Association (ADA) provides guidance for cutoff [...] Standards of Medical Care in Diabetes 2016, [place] [employer]. Diabetes Care. 2016.39(Suppl 1).Performed By: #### 93730-1 ####AMRITA LABORATORYCLIA [id number] [place] [address] [place] AMERICAPotassium [Moles/Vol]4.4 mmol/LNormal3.7-5.1Fplunkett [facility] hospital HospitalComment on above:Order Comment: Specimen Type: BLOOD SPECIMENOrdering Facility: [facility] Address:[address] [place], [place] [address]Performed By: #### 73244-4 ####AMRITA LABORATORYCLIA [id number] [place] [id number] [facility] HOSPITALSodium [Moles/Vol]137 mmol/BQznxzg168-230Orjyvmwq HospitalComment on above:Order Comment: Specimen Type: BLOOD SPECIMENOrdering Facility: [facility] Address:[address] [place], [place] [address]Performed By: #### 14278-0 ####AMRITA LABORATORYCLIA [id number] [place] [id number] [place] AMERICAUrea nitrogen [Mass/Vol]10 mg/dLNormal-FaFoxborough State HospitalComment on above:Order Comment: Specimen Type: BLOOD SPECIMENOrdering Facility: [facility] Address:[address] [place], [place] [address]Performed By: #### 33995-3 ####AMRITA LABORATORYCLIA [id number] [place] [id number] [facility]CB W Auto Differential panel (Bld)on 06-16-2024 Basophils (Bld) [#/Vol]0.04 10*3/uLNormal<0.11Houston HospitalComment on above: Order Comment: Specimen Type: BLOOD SPECIMENOrdering Facility: [facility] Address:[address] [place], [place] [address]Performed By: #### 16820- 8 ####AMRITA LABORATORYCLIA [id number] [place] [address] [place] AMERICABasophils/100 WBC (Bld)0.6 %[facility] Comment on above:Order Comment: Specimen Type: BLOOD SPECIMENOrdering Facility: [facility] Address:[address] [place] [address] Performed By: #### 41378-6 ####AMRITA LABORATORYCLIA [id number] [place] [id number] [place] AMERICADifferential cell count method Nom (Bld)AutoNormalLovering Colony State HospitalComment on above:Order Comment: Specimen Type: BLOOD SPECIMENOrdering Facility: [facility] Address:[address] [place], [place] [address]Performed By: #### 98436-9 ####AMRITA LABORATORYCLIA [id number] [place] [address] [place] AMERICAEosinophils (Bld) [#/Vol]0.16 10*3/uLNormal<0.46Lovering Colony State HospitalComment on above:Order Comment: Specimen Type: BLOOD SPECIMENOrdering Facility: [facility] Address:[address] [place] [address] Performed By: #### 96448-4 ####AMRITA LABORATORYCLIA [id number] [place] [address] [place] AMERICAEosinophils/100 WBC (Bld)2.4 % NormalLovering Colony State HospitalComment on above:Order Comment: Specimen Type: BLOOD SPECIMENOrdering Facility: [facility] Address:[address] [place], [place] [address]Performed By: #### 69636-5 ####AMRITA LABORATORYCLIA [id number] [place] [address] [place] Erythrocyte distribution width (RBC) [Ratio]15.6 %High11.5-15.0[facility] Comment on above:Order Comment: Specimen Type: BLOOD SPECIMENOrdering Facility: [facility] Address:[address] [place] [address] Performed By: #### 79974-3 ####AMRITA LABORATORYCLIA [id number] [place] [id number] [place] AMERICAHematocrit (Bld) [Volume fraction]44.0 %Ewjyvt76.0-51.0Lovering Colony State HospitalComment on above:Order Comment: Specimen Type: BLOOD SPECIMENOrdering Facility: [facility] Address:[address] [place], [place] [address]Performed By: #### 49669-0 ####AMRITA LABORATORYCLIA [id number] [place] [id number] [place] AMERICAHemoglobin (Bld) [Mass/Vol]13.8 g/tUGcrfee10.0-17.0 [facility]ony State HospitalComment on above:Order Comment: Specimen Type: BLOOD SPECIMENOrdering Facility: [facility] Address:[address] [place], [place] [address]Performed By: #### 53542-1 ####AMRITA LABORATORYCLIA [id number] [place] [id number] [place] Immature granulocytes (Bld) [#/Vol]0.03 10*3/uLNormal<0.10[facility] Comment on above:Order Comment: Specimen Type: BLOOD SPECIMENOrdering Facility: [facility] Address:[address] [place] [address] Performed By: #### 79488-8 ####AMRITA LABORATORYCLIA [id number] [place] [id number] [place] AMERICAImmature granulocytes/100 WBC (Bld)0.5 %NormalLovering Colony State HospitalComment on above:Order Comment: Specimen Type: BLOOD SPECIMENOrdering Facility: [facility] Address:[address] [place], [place] [address]Performed By: #### 47702-1 ####AMRITA LABORATORYCLIA [id number] [place] [id number] [place] Lymphocytes (Bld) [#/Vol]1.23 10*3/uLNormal1.00-4.00FaFoxborough State HospitalComment on above:Order Comment: Specimen Type: BLOOD SPECIMENOrdering Facility: [facility] Address:[address] [place], [place] [address]Performed By: #### 55009-2 ####AMRITA LABORATORYCLIA [id number] [place] [id number] [place] [facility] HEART CENTERLymphocytes/100 WBC (Bld)18.8 %NormalHouston HospitalComment on above:Order Comment: Specimen Type: BLOOD SPECIMENOrdering Facility: [facility] Address:[address] [place], [place] [address]Performed By: #### 93451-0 ####AMRITA LABORATORYCLIA [id number] [place] [id number] [facility] (RBC) [Entitic mass]29.9 jhIygidq71.0-34.0Houston HospitalComment on above:Order Comment: Specimen Type: BLOOD SPECIMENOrdering Facility: [facility] Address:[address] [place], [place] [address]Performed By: #### 58930-5 ####AMRITA LABORATORYCLIA [id number] [place] [id number] [facility] HOSPITALMCHC (RBC) [Mass/Vol]31.4 g/hBIuxkni89.5-36.0Houston HospitalComment on above:Order Comment: Specimen Type: BLOOD SPECIMENOrdering Facility: [facility] Address:[address] [place], [place] [address]Performed By: #### 71181-5 ####AMRITA LABORATORYCLIA [id number] [place] [id number] [facility] (RBC) [Entitic vol] 95.4 lIZgjdhg99.0-100.0[facility] HospitalComment on above:Order Comment: Specimen Type: BLOOD SPECIMENOrdering Facility: [facility] Address:[address] [place], [place] [address]Performed By: #### 33707-3 ####AMRITA LABORATORYCLIA [id number] [place] [id number] [facility] HOSPITALMonocytes (Bld) [#/Vol]0.76 10*3/uLNormal<0.87[facility] HospitalComment on above:Order Comment: Specimen Type: BLOOD SPECIMENOrdering Facility: [facility] Address:[address] [place], [place] [address]Performed By: #### 67240-4 ####AMRITA LABORATORYCLIA [id number] [place] [id number] [place] AMERICAMonocytes/100 WBC (Bld)11.6 %NormalHouston HospitalComment on above:Order Comment: Specimen Type: BLOOD SPECIMENOrdering Facility: [facility] Address:[address] [place], [place] [address]Performed By: #### 98530-0 ####AMRITA LABORATORYCLIA [id number] [place] [id number] [place] AMERICANeutrophils (Bld) [#/Vol]4.32 10*3/uLNormal1.45-7.50[facility] HospitalComment on above:Order Comment: Specimen Type: BLOOD SPECIMENOrdering Facility: [facility] Address:[address] [place], [place] [address]Performed By: #### 33396- 8 ####AMRITA LABORATORYCLIA [id number] [place] [id number] [place] AMERICANeutrophils/100 WBC (Bld)66.1 %NormalHouston Hospital Comment on above:Order Comment: Specimen Type: BLOOD SPECIMENOrdering Facility: [facility] Address:[address] [place] [address] Performed By: #### 31398-3 ####AMRITA LABORATORYCLIA [id number] [place] [id number] [place] AMERICANucleated RBC (Bld) [#/Vol] 10*3/uLNormal<0.01[facility] HospitalComment on above:Order Comment: Specimen Type: BLOOD SPECIMENOrdering Facility: [facility] Address:[address] [place], [place] [address]Performed By: #### 94508-5 ####AMRITA LABORATORYCLIA [id number] [place] [id number] [place] AMERICANucleated RBC/100 WBC (Bld) [Ratio]0.0 /100 WBCNoSaint John of God Hospital Hospital Comment on above:Order Comment: Specimen Type: BLOOD SPECIMENOrdering Facility: [facility] Address:[address] [place] [address] Performed By: #### 31847-6 ####AMRITA LABORATORYCLIA [id number] [place] [id number] [place] AMERICAPlatelet mean volume (Bld) [Entitic vol]11.2 fLNormal9.0-12.7Fplunkett memorial hospital HospitalComment on above:Order Comment: Specimen Type: BLOOD SPECIMENOrdering Facility: [facility] Address:[address] [place], [place] [address]Performed By: #### 95552- 8 ####AMRITA LABORATORYCLIA [id number] [place] [id number] [place] AMERICAPlatelets (Bld) [#/Vol]191 10*3/nXGzyulb945-644Yiiusuxn HospitalComment on above:Order Comment: Specimen Type: BLOOD SPECIMENOrdering Facility: [facility] Address:[address] [place], [place] [address]Performed By: #### 94503-7 ####AMRITA LABORATORYCLIA [id number] [place] [id number] [facility] MERCY HEALTHRBC (Bld) [#/Vol]4.61 10*6/uLNormal4.20-6.00[facility] HospitalComment on above:Order Comment: Specimen Type: BLOOD SPECIMENOrdering Facility: [facility] Address:[address] [place], [place] [address]Performed By: #### 35271-0 ####AMRITA LABORATORYCLIA [id number] [place] [id number] [place] AMERICAWBC (Bld) [#/Vol]6.54 10*3/uLNormal3.70-11.00Houston HospitalComment on above:Order Comment: Specimen Type: BLOOD SPECIMENOrdering Facility: [facility] Address:[address] [place], [place] [address]Performed By: #### 29510-3 ####AMRITA [facility] [id number] [place] [id number] [facility]APTIST HOSPITALCNEvangelina 02-12-4947BZTYDDN ID: [id number] Author: DONIS CARIAS MD Service: Colorectal Author [...] which included preparing to see the patient, bvpj-ft-dhxp patient care, completing clinical documentation, obtaining and/or reviewing separately obtained history, performing a medically appropriate examination, and care coordination (not separately reported). SIGNATURE: 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 APRN.IRRIGATION EQUIPMENT INSTALLER DATE: June 16, 2024 (more content not included)...NormalCar[facility] 2000 panel on 35-89-6587Mrdbv gap [Moles/Vol]13 mmol/LNormal8-15L[facility]ony State HospitalComment on above:Order Comment: Specimen Type: BLOOD SPECIMENOrdering Facility: [facility] Address:[address] [place], [place] [address]Performed By: #### 48802-9 ####AMRITA LABORATORYCLIA [id number] [place] [id number] [place] AMERICACalcium [Mass/Vol]8.9 mg/dLNormal8.5-10.2Fpl[facility]ett [facility] HospitalComment on above:Order Comment: Specimen Type: BLOOD SPECIMENOrdering Facility: [facility] Address:[address] [place], [place] [address]Performed By: #### 18151-5 ####AMRITA LABORATORYCLIA [id number] [place] [address] [place] AMERICAChloride [Moles/Vol]100 mmol/YBhlxuv24-495Lnppgley HospitalComment on above:Order Comment: Specimen Type: BLOOD SPECIMENOrdering Facility: [facility] Address:[address] [place], [place] [address]Performed By: #### 44194-3 ####MAUREENJAMMIE LABORATORYCLIA [id number] [place] [id number] [place] AMERICACO2 [Moles/Vol]21 mmol/QDql40-08Tkiknsir HospitalComment on above:Order Comment: Specimen Type: BLOOD SPECIMENOrdering Facility: [facility] Address:[address] [place], [place] [address]Performed By: #### 80983- 2 ####AMRITA LABORATORYCLIA [id number] [place] [id number] [place] AMERICACreatinine [Mass/Vol]1.25 mg/dLHigh0.73-1.22[facility] on above:Order Comment: Specimen Type: BLOOD SPECIMENOrdering Facility: [facility] Address:[address] [place], [place] [address]Performed By: #### 75049-6 ####AMRITA LABORATORYCLIA [id number] [place] [address] [place] AMERICACreatinine and Glomerular filtration rate.predicted panel (S/P/Bld)69 mL/min/1.73m???Normal>=60 [facility] on above:Order Comment: Specimen Type: BLOOD SPECIMENOrdering Facility: [facility] Address:[address] [place], [place] [address]Result Comment: Estimated Glomerular Filtration Rate (eGFR) is calculated using the 2020 CKD-EPI creatinine equation. This equation utilizes serum creatinine, sex, and age as parameters. The creatinine assay has traceable calibration to isotope dilution-mass spectrometry. Refer to KDIGO guidelines for clinical interpretation. In patients with unstable renal function, e.g. those with acute kidney injury, the eGFR may not accurately reflect actual GFR.Performed By: #### 60882-5 ####AMRITA LABORATORYCLIA [id number] [place] [id number] [place] AMERICAGlucose [Mass/Vol]105 mg/kTLsjs18-23Sstngkpv HospitalComveterans affairs medical center on above:Order Comment: Specimen Type: BLOOD SPECIMENOrdering Facility: [facility] Address:[address] [place], [place] [address]Result Comment: The [place] Diabetes Association (ADA) provides guidance for cutoff [...] Standards of Medical Care in Diabetes 2016, [place] [employer]. Diabetes Care. 2016.39(Suppl 1).Performed By: #### 42095-6 ####AMRITA LABORATORYCLIA [id number] [place] [address] [place] AMERICAPotassium [Moles/Vol]4.8 mmol/LNormal3.7-5.1Fplunkett memorial hospital HospitalComment on above:Order Comment: Specimen Type: BLOOD SPECIMENOrdering Facility: [facility] Address:[address] [place], [place] [address]Performed By: #### 91876-0 ####AMRITA LABORATORYCLIA [id number] [place] [id number] [place] AMERICASodium [Moles/Vol]134 mmol/FLtd573-755Libqejjc HospitalComment on above:Order Comment: Specimen Type: BLOOD SPECIMENOrdering Facility: [facility] Address:[address] [place], [place] [address]Performed By: #### 83213-0 ####AMRITA LABORATORYCLIA [id number] [place] [id number] [place] AMERICAUrea nitrogen [Mass/Vol]19 mg/dLNormal9-24[facility] HospitalComment on above:Order Comment: Specimen Type: BLOOD SPECIMENOrdering Facility: [facility] Address:[address] [place], [place] [address]Performed By: #### 43454- 2 ####AMRITA LABORATORYCLIA [id number] [place] [id number] [place] AMERICACB W Auto Differential panel (Bld)on 06-15-2024 Basophils (Bld) [#/Vol]0.03 10*3/uLNormal<0.11Houston HospitalComment on above: Order Comment: Specimen Type: BLOOD SPECIMENOrdering Facility: [facility] Address:[address] [place], [place] [address]Performed By: #### 11973- 8 ####AMRITA LABORATORYCLIA [id number] [place] [id number] [place] AMERICABasophils/100 WBC (Bld)0.3 %[facility] Hospital Comment on above:Order Comment: Specimen Type: BLOOD SPECIMENOrdering Facility: [facility] Address:[address] [place] [address] Performed By: #### 07947-4 ####AMRITA LABORATORYCLIA [id number] [place] [id number] [place] OF MERCY HEALTHDifferential cell count method Nom (Bld)AutoNormalHouston HospitalComment on above:Order Comment: Specimen Type: BLOOD SPECIMENOrdering Facility: [facility] Address:[address] [place], [place] [address]Performed By: #### 33139-4 ####AMRITA LABORATORYCLIA [id number] [place] [id number] [place] AMERICAEosinophils (Bld) [#/Vol]10*3/uLNormal<0.46[facility] HospitalComment on above:Order Comment: Specimen Type: BLOOD SPECIMENOrdering Facility: [facility] Address:[address] [place], [place] [address]Performed By: #### 45649-8 ####AMRITA LABORATORYCLIA [id number] [place] [id number] [place] AMERICAEosinophils/100 WBC (Bld)0.2 %NormalHouston HospitalComment on above:Order Comment: Specimen Type: BLOOD SPECIMENOrdering Facility: [facility] Address:[address] [place], [place] [address]Performed By: #### 59780-6 ####AMRITA LABORATORYCLIA [id number] [place] [id number] [place] AMERICAErythrocyte distribution width (RBC) [Ratio]15.5 %High11.5-15.0[facility] HospitalComment on above:Order Comment: Specimen Type: BLOOD SPECIMENOrdering Facility: [facility] Address:[address] [place], [place] [address]Performed By: #### 70735-0 ####AMRITA LABORATORYCLIA [id number] [place] [id number] [place] OF MERCY HEALTHHematocrit (Bld) [Volume fraction]41.5 %Normal 39.0-51.0[facility] HospitalComment on above:Order Comment: Specimen Type: BLOOD SPECIMENOrdering Facility: [facility] Address:[address] [place], [place] [address]Performed By: #### 37605-7 ####AMRITA LABORATORYCLIA [id number] [place] [id number] [place] Hemoglobin (Bld) [Mass/Vol]13.8 g/wYBylubz06.0-17.0[facility] HospitalComment on above:Order Comment: Specimen Type: BLOOD SPECIMENOrdering Facility: [facility] Address:[address] [place], [place] [address]Performed By: #### 09237-4 ####AMRITA LABORATORYCLIA [id number] [place] [id number] [place] MERCY HEALTHImmature granulocytes (Bld) [#/Vol]0.06 10*3/uL Normal<0.10Houston HospitalComment on above:Order Comment: Specimen Type: BLOOD SPECIMENOrdering Facility: [facility] Address:[address] [place], [place] [address]Performed By: #### 63236-2 ####AMRITA LABORATORYCLIA [id number] [place] [id number] [place] Immature granulocytes/100 WBC (Bld)0.6 %NormalFafree hospital for women HospitalComment on above: Order Comment: Specimen Type: BLOOD SPECIMENOrdering Facility: [facility] Address:[address] [place], [place] [address]Performed By: #### 36908- 8 ####AMRITA LABORATORYCLIA [id number] [place] [id number] [place] [facility] & HEART CENTERLymphocytes (Bld) [#/Vol]1.01 10*3/uLNormal1.00-4.00 [facility] HospitalComment on above:Order Comment: Specimen Type: BLOOD SPECIMENOrdering Facility: [facility] Address:[address] [place], [place] [address]Performed By: #### 58356-0 ####AMRITA LABORATORYCLIA [id number] [place] [id number] [facility] Lymphocytes/100 WBC (Bld)10.3 %NormalLovering Colony State HospitalComment on above:Order Comment: Specimen Type: BLOOD SPECIMENOrdering Facility: [facility] Address:[address] [place], [place] [address]Performed By: #### 97748- 8 ####AMRITA LABORATORYCLIA [id number] [place] [id number] [facility] (RBC) [Entitic mass]30.6 tvVuzewj84.0-34.0Houston HospitalComment on above:Order Comment: Specimen Type: BLOOD SPECIMENOrdering Facility: [facility] Address:[address] [place], [place] [address]Performed By: #### 82018-1 ####AMRITA LABORATORYCLIA [id number] [place] [id number] [facility] (RBC) [Mass/Vol] 33.3 g/cAJqcukh08.5-36.0Houston HospitalComment on above:Order Comment: Specimen Type: BLOOD SPECIMENOrdering Facility: [facility] Address:[address] [place], [place] [address]Performed By: #### 75026-6 ####AMRITA LABORATORYCLIA [id number] [place] [address] [place] AMERICAMCV (RBC) [Entitic vol]92.0 gDQyzssm72.0-100.0Houston HospitalComment on above:Order Comment: Specimen Type: BLOOD SPECIMENOrdering Facility: [facility] Address:[address] [place], [place] [address]Performed By: #### 87431-5 ####AMRITA LABORATORYCLIA [id number] [place] [id number] [place] AMERICAMonocytes (Bld) [#/Vol] 1.07 10*3/uLHigh<0.87[facility] HospitalComment on above:Order Comment: Specimen Type: BLOOD SPECIMENOrdering Facility: [facility] Address:[address] [place], [place] [address]Performed By: #### 28340-7 ####AMRITA LABORATORYCLIA [id number] [place] [address] [place] AMERICAMonocytes/100 WBC (Bld)10.9 %NormalHouston HospitalComment on above: Order Comment: Specimen Type: BLOOD SPECIMENOrdering Facility: [facility] Address:[address] [place], [place] [address]Performed By: #### 76381- 8 ####AMRITA LABORATORYCLIA [id number] [place] [address] [place] AMERICANeutrophils (Bld) [#/Vol]7.59 10*3/uLHigh1.45-7.50 [facility] HospitalComment on above:Order Comment: Specimen Type: BLOOD SPECIMENOrdering Facility: [facility] Address:[address] [place], [place] [address]Performed By: #### 20029-4 ####AMRITA LABORATORYCLIA [id number] [place] [id number] [place] Neutrophils/100 WBC (Bld)77.7 %NormalHouston HospitalComment on above:Order Comment: Specimen Type: BLOOD SPECIMENOrdering Facility: [facility] Address:[address] [place], [place] [address]Performed By: #### 71117- 8 ####AMRITA LABORATORYCLIA [id number] [place] [address] [place] AMERICANucleated RBC (Bld) [#/Vol]10*3/uLNormal<0.01Houston HospitalComment on above:Order Comment: Specimen Type: BLOOD SPECIMENOrdering Facility: [facility] Address:[address] [place], [place] [address]Performed By: #### 64210-8 ####AMRITA LABORATORYCLIA [id number] [place] [id number] [place] AMERICANucleated RBC/100 WBC (Bld) [Ratio]0.0 /100 WBCNormalHouston HospitalComment on above:Order Comment: Specimen Type: BLOOD SPECIMENOrdering Facility: [facility] Address:[address] [place], [place] [address]Performed By: #### 69505-4 ####AMRITA LABORATORYCLIA [id number] [place] [id number] [place] AMERICAPlatelet mean volume (Bld) [Entitic vol]10.8 fLNormal 9.0-12.7Fplunkett memorial hospital HospitalComment on above:Order Comment: Specimen Type: BLOOD SPECIMENOrdering Facility: [facility] Address:[address] [place], [place] [address]Performed By: #### 92065-6 ####AMRITA LABORATORYCLIA [id number] [place] [id number] [place] Platelets (Bld) [#/Vol]176 10*3/gFRkxvbs165-347Vesqivus HospitalComment on above:Order Comment: Specimen Type: BLOOD SPECIMENOrdering Facility: [facility] Address:[address] [place], [place] [address]Performed By: #### 84991-7 ####AMRITA LABORATORYCLIA [id number] [place] [id number] [place] OF AMERICARBC (Bld) [#/Vol]4.51 10*6/uLNormal4.20-6.00 Houston HospitalComment on above:Order Comment: Specimen Type: BLOOD SPECIMENOrdering Facility: [facility] Address:[address] [place], [place] [address], [place] [address]Jlwlhkcem By: #### 16160-4 ####AMRITA LABORATORYCLIA [id number] [place] [id number] [place] OF MERCY HEALTHWBC (Bld) [#/Vol]9.78 10*3/uLNormal3.70-11.00Lover[facility] Colony State HospitalComment on above:Order Comment: Specimen Type: BLOOD SPECIMENOrdering Facility: [facility] Address:[address] [facility] [address]ENTERSILVERIO S[place]EDRAL [place], [place] [address]Dnruqxpda By: #### 94802- 8 ####AMRITA LABORATORYCLIA [id number] [place] [id number] [facility] HOSPITALUTRITIONon [id number] ID: [id number] Author: SINDHU ARZATE RD Service: Nutrition Therapy [...] Sindhu Arzate RD June 15, 2024 9:44 AMNUMass Memorial Medical CenterANES POSTPROC EVALon [id number] POSTPROC EVAL HNO ID: [id number] Author: ILA MORTENSEN MD Service: Critical Care [...] June 14, 2024 TIME: 3:59 PM CSN: [id number] Rehabilitation Center PRE-OPon [id number] PRE-OPHNO ID: [id number] Author: ILA MORTENSEN MD Service: Critical Care [...] June 14, 2024 TIME: 9:23 AM CSN: [id number] HospitalMISMATCH REPAIR PROTEINS BY IHCon 23-09-3069CC BIOMARKER DISCLAIMERNoNew England Sinai HospitalComment on above: Order Comment: Specimen Type: TISSUE SPECIMENOrdering Facility: [facility] Address: [address] [place], [place] [address]Result Comment: Laboratory Developed Test (LDT) Disclaimer: Performance characteristics of immunohistochemical, immunofluorescent and chromogenic in-situ hybridization tests have been determined by the performing laboratory within [facility]???s Donnell Thorpe Pathology and Laboratory Medicine Department ([facility], [facility], [facility], [facility], [facility], [facility], or [facility][1]) in a manner consistent with CLIA requirements. One or more of these tests havenot been cleared or approved by the FDA. RT-PLM is regulated under CLIA as qualified to perform high-complexity testing. These tests are used for clinical purposes. They should not be regarded as investigational or for research. Positive and negative controls stain appropriately.Performed By: #### [id number] ####[facility] LABCLIA [id number] [address] STATES OF AMERICAAP BLOCK WFS3AgivcpXqwqsbmmMount Auburn HospitalComment on above:Order Comment: Specimen Type: TISSUE SPECIMENOrdering Facility: [facility] Address: [address] [place], [place] [address]Performed By: #### [id number] ####[facility] LABCLIA [id number] [address]ETBIOMARKER INTERPRETATION COMMENT AND REFERENCE [facility] Developmental CenterComveterans affairs medical center on above:Order Comment: Specimen Type: TISSUE SPECIMENOrdering Facility: [facility] Address: [address] [place], [place] [address]Result Comment: Intact expression of MMR (mismatch repair) [...] patients with metastatic carcinoma, Alana et al. ([facility] 2015;372:4879-77) reported that the clinical benefit of pembrolizumab, [...] questions about this result, please call the [facility] at [phone].Performed By: #### [id number] ####[facility] LABIA [id number] [address]ETBIOMARKER METHOD Immunohistochemistry was performed on formalin fixed paraffin-embedded tissue using the following clones: MLH1 (clone M1 mouse monoclonal); MSH2 ([id number] mouse monoclonal); and MSH6 (SP93 rabbit monoclonal); followed by ultrasensitive bright field detection (Optiview with amplification) from [[employer], [place]]. PMS2 (EP51 Rabbit monoclonal, [employer] [place]); followed by ultrasensitive bright field detection ( Rosales Refine Polymer DAB Detection) from [[employer], [place], [place]].[facility] HospitalComment on above: Order Comment: Specimen Type: TISSUE SPECIMENOrdering Facility: [facility] Address: [address] [place], [place] [address]Performed By: #### [id number] ####[facility] LABIA [id number] [address] HospitalComment on above:Order Comment: Specimen Type: TISSUE SPECIMENOrdering Facility: [facility] Address: [address] [place], [place] [address]Performed By: #### [id number] ####[facility] LABIA [id number] [place] [address] [place] AMERICAFIXATIVEFormalin, 10% Neutral BufferedNoSaint John of God Hospital HospitalComment on above:Order Comment: Specimen Type: TISSUE SPECIMENOrdering Facility: [facility] Address: [address] [place], [place] [address]Performed By: #### [id number] ####[facility] LABIA [id number] [address]ML IMMUNOHISTOCHEMICAL RESULTSNormal/Intact Nuclear ExpressionNoSaint John of God Hospital HospitalComment on above:Order Comment: Specimen Type: TISSUE SPECIMENOrdering Facility: [facility] Address: [address] [place], [place] [address]Performed By: #### [id number] ####[facility] LABCLIA [id number] [place] [address] [place] OF AMERICAMLH1 PROMOTER METHYLATION ASSAYSouthwood Community Hospital Comment on above:Order Comment: Specimen Type: TISSUE SPECIMENOrdering Facility: [facility] Address: [address] [place] [address] Performed By: #### [id number] ####[facility] LABCLIA [id number] [place] [address] [place] MMR INTERPRETATIONProficient (Microsatellite Stable)[facility] Comment on above:Order Comment: Specimen Type: TISSUE SPECIMENOrdering Facility: [facility] Address: [address] [place] [address] Performed By: #### [id number] ####[facility] LABCLIA [id number] [place] [address] [place] MSH2 IMMUNOHISTOCHEMICAL RESULTSNormal/Intact Nuclear ExpressionNoSaint John of God Hospital HospitalComment on above:Order Comment: Specimen Type: TISSUE SPECIMENOrdering Facility: [facility] Address: [address] [place], [place] [address]Performed By: #### [id number] ####[facility] LABCLIA [id number] [place] [address] [place] MSH6 IMMUNOHISTOCHEMICAL RESULTSNormal/Intact Nuclear ExpressionNoSaint John of God Hospital HospitalComment on above:Order Comment: Specimen Type: TISSUE SPECIMENOrdering Facility: [facility] Address: [address] [place], [place] [address]Performed By: #### [id number] ####[facility] LABCLIA [id number] [place] [address] [place] PMS2 IMMUNOHISTOCHEMICAL RESULTSNormal/Intact Nuclear ExpressionNoSaint John of God Hospital HospitalComment on above:Order Comment: Specimen Type: TISSUE SPECIMENOrdering Facility: [facility] Address: [address] [place], [place] [address]Performed By: #### [id number] ####[facility] LABCLIA [id number] [address] TUMOR TYPE MMRPrimary Colorectal AdenocarcinomaNormalLovering Colony State HospitalComment on above:Order Comment: Specimen Type: TISSUE SPECIMENOrdering Facility: [facility] Address: [address] [place], [place] [address]Performed By: #### [id number] ####[facility] LABCLIA [id number] [address] OF AMERICAOPERATIVE NOon [id number] NOHNO ID: [id number] Author: DONIS CARIAS MD Service: Colorectal Author Type: Physician Type: Operative Report Filed: 06/21/2024 15:52 Note Text: COLON AND RECTAL SURGERY OPERATIVE REPORT PATIENT NAME: Piper Rodríguez ADMISSION DATE: 06/14/2024 LOG ID: [id number] SURGERY/PROCEDURE DATE: 06/14/2024 INCISION/PROCEDURE START TIME: 9:17 AM INCISION CLOSE/PROCEDURE END TIME: 11:24 AM AGE: [age] year old SEX: male SURGEON(S)/PROCEDURALIST(S) AND GIS INSTRUCTOR(S): Surgeons and Role: * Donis Carias MD [...] inserted into the bowel to create a bdxz-gs-xyns functional end-to-end anastomosis. The bowel was lined [...] The anastomosis was inspected (more content not included)...[facility] PATHOLOGYon 17-94-6111VELPE FOR ADDITIONAL BIOMARKERS/MOLECULAR DZMQMXVQ6XashknKlkapzqk HospitalComment on above:Order Comment: Specimen Type: TISSUE SPECIMENOrdering Facility: [facility] Address: [address] [place], [place] [address]Performed By: #### S ####[facility] LABCLIA [id number] [address] LABORATORYCLIA [id number] [address]CASE REPORTNoNew England Sinai HospitalComment on above:Order Comment: Specimen Type: TISSUE SPECIMENOrdering Facility: [facility] Address: [address] [place], [place] [address]Result Comment: Surgical Pathology Report Case: [id number] Authorizing Provider: Donis Carias MD Collected: 06/14/2024 10:43 AM [facility]ing [facility] Received: 06/14/2024 11:18 AM Operating Room Pathologist: Samir De La Cruz MD Specimen: Colon, Resection, right colonPerformed By: #### S ####[facility] LABCLIA [id number] [address] [address] [facility] LABORATORYCLIA [id number] [address] HISTORYMassachusetts General Hospital HospitalComment on above:Order Comment: Specimen Type: TISSUE SPECIMENOrdering Facility: [facility] Address: [address] [place], [place] [address]Result Comment: Pre-op diagnosis: Malignant neoplasm of ascending colon (HCC) [C18.2]Performed By: #### S ####[facility] LABCLIA [id number] [place] [id number] [facility] LABORATORYCLIA [id number] [address] StreetComment on above:Order Comment: Specimen Type: TISSUE SPECIMENOrdering Facility: [facility] Address: [address] [place], [place] [address]Result Comment: Terminal ileum, right colon, appendix, and omentum, resection: - Invasive moderately differentiated colonic adenocarcinoma. - Three of 18 lymph nodes involved by metastatic adenocarcinoma (3/18). - Appendix with fibrous obliteration of the tip. - Omentum with no evidence of tumor. - Terminal ileum with no evidence of tumor. - See synoptic report. Performed By: #### S ####[facility] LABCLIA [id number] [place] [id number] [facility] LABORATORYCLIA [id number] [place] [id number] [facility] PERFORMING [facility]urb[facility] HospitalComment on above:Order Comment: Specimen Type: TISSUE SPECIMENOrdering Facility: [facility] Address: [address] [place] [address]Gldzkp Comment: Diagnostic interpretation performed at: [facility], [address] [place], [place] [address] CLIA# [id number] Gravel Hauler: MEEK Aguirreerformed By: #### S ####[facility] LABCLIA [id number] [address] LABORATORYCLIA [id number] [address] AMERICAResplains regional medical center Comment: Diagnostic interpretation performed at: [facility], [address] [place] [address] CLIA# [id number] Gravel Hauler: Kenneth Rajput MD Electronically signed out by: MEEK Duranerformed By: #### [id number] ####[facility] LABCLIA [id number] [address]GROSS DESCRIPTIONNormalLovering Colony State HospitalComment on above:Order Comment: Specimen Type: TISSUE SPECIMENOrdering Facility: [facility] Address: [address] [place], [place] [address]Result Comment: A. Colon, Resection Received in formalin [...] reveal any areas of induration or nodularity. Administration Clerk sections are submitted as follows: A1 [...] 2024 1:43 PM Gross examination performed at [facility], [address] [place], [place] [address]Performed By: #### S ####[facility] LABCLIA [id number] [address] [address] [place] AMERICAFAIRLIMA MEMORIAL [facility] LABORATORYCLIA [id number] [place] [address] [place] AMERICASYNOPTIC REPORTNormalFairview HospitalComment on above: Order Comment: Specimen Type: TISSUE SPECIMENOrdering Facility: [facility] Address: [address] [place], [place] [address]Result Comment: COLON AND RECTUM: Resection COLON AND [...] Additional Findings: None identifiedPerformed By: #### S ####[facility] LABCLIA [id number] [facility] [id number] [place], [place] [address] [facility] LABORATORYCLIA [id number] [address]EC COMPLETEon 78-31-6257TMX COMPLETEVentricular Rate : 62 BPM Atrial Rate : 62 BPM P-R Interval : 170 ms QRS Duration : 94 ms Q-T Interval : 402 ms QTC Calculation(Bazett) : 408 ms Calculated P [place] : 50 degrees Calculated R [place] : 18 degrees Calculated T [place] : 44 degrees NORMAL SINUS RHYTHM NORMAL ECG Confirmed by ALEX METCALF MD ([id number]) on 06/09/2024 6:31:40 AM NAME : PIPER RODRÍGUEZ PID : [id number] : 1970 Gender : Male Race : ORD : [id number] Procedure Date : Jun 08 2024 08:53:10 Edit Date : Jun 09 2024 06:31:44 Diagnosis: NORMAL SINUS RHYTHM NORMAL ECG Confirmed by ALEX METCALF MD ([id number]) on 06/09/2024 6:31:40 AM Test Reason : PRE OP Location : 545 : [facility] Overread By : ALEX METCALF MD Edited By : ALEX METCALF MD Referred By : DONIS CARIAS Acquired by : Andrea Y[facility]ESMercy Health [facility] PHYSICALon 06-08-2024 HISTORY PHYSICALHNO ID: [id number] Author: AUBREY BAER PA-C Service: ? Author Type: Physician Blow Off Worker Type: H&P Filed: 06/08/2024 09:20 Note Text: [...] 5 (+SHERIE, unable to tolerate CPAP ) [id number] Score: Age: <65 Sex: male CHF history: No Hypertension history: Yes Stroke/TIA/thromboembolism history: No Vascular disease history: No Diabetes history: No [id number] Score: 1 ARISCAT Score: Age: 51-80 Preoperative [...] fevers. Neuro: No history of TIA's, stroke, LIQUID FLAVOR COMPOUNDER tumor, impaired sensorium, hemiplegia, paraplegia or [...] muscle pain. Skin: Ne (more content not included)...NormalThe Jewish HospitalCNPNon 63-95-8381MRYNZgtequuod (FVPRAD) PIPER RODRÍGUEZ ([id number]) 1970 M Date Time Provider Department 06/05/24 [...] (None) Encounter Status:Closed by DONIS CARIAS on 06/05/24NoNew [facility] Sinai Hospital CBC W Auto Differential panel (Bld)on 79-96-4408Tykbhygaj (Bld) [#/Vol]0.06 10*3/uLNormal<0.11Lover[facility] Colony State HospitalComment on above:Order Comment: Specimen Type: BLOOD SPECIMENOrdering Facility: [facility] Address:[address] [place], [place] [address]Performed By: #### 08395-4 ####AMRITA LABORATORYCLIA [id number] [place] [address] [place] AMERICABasophils/100 WBC (Bld)1.0 %NormalLovering Colony State HospitalComment on above: Order Comment: Specimen Type: BLOOD SPECIMENOrdering Facility: [facility] Address:[address] [place], [place] [address]Performed By: #### 40609- 8 ####AMRITA LABORATORYCLIA [id number] [place] [id number] [place] AMERICADifferential cell count method Nom (Bld)AutoNormal Houston HospitalComment on above:Order Comment: Specimen Type: BLOOD SPECIMENOrdering Facility: [facility] Address:[address] [place], [place] [address]Performed By: #### 14739-3 ####AMRITA LABORATORYCLIA [id number] [place] [address] [place] Eosinophils (Bld) [#/Vol]0.28 10*3/uLNormal<0.46Houston HospitalComment on above:Order Comment: Specimen Type: BLOOD SPECIMENOrdering Facility: [facility] Address:[address] [place], [place] [address]Performed By: #### 46616-9 ####AMRITA LABORATORYCLIA [id number] [place] [address] [place] AMERICAEosinophils/100 WBC (Bld)4.5 %NormalHouston HospitalComment on above:Order Comment: Specimen Type: BLOOD SPECIMENOrdering Facility: [facility] Address:[address] [place], [place] [address]Performed By: #### 89803-9 ####AMRITA LABORATORYCLIA [id number] [place] [id number] [place] OF AMERICAErythrocyte distribution width (RBC) [Ratio]16.0 %High11.5-15.0Houston HospitalComment on above:Order Comment: Specimen Type: BLOOD SPECIMENOrdering Facility: [facility] Address:[address] [place], [place] [address]Performed By: #### 62435-5 ####AMRITA LABORATORYCLIA [id number] [place] [id number] [place] OF AMERICAHematocrit (Bld) [Volume fraction]46.1 %Normal 39.0-51.0Fairview HospitalComment on above:Order Comment: Specimen Type: BLOOD SPECIMENOrdering Facility: [facility] Address:[address] [place], [place] [address]Performed By: #### 89687-8 ####AMRITA LABORATORYCLIA [id number] [place] [id number] [place] Hemoglobin (Bld) [Mass/Vol]15.1 g/jYPboyob02.0-17.0FaFoxborough State HospitalComment on above:Order Comment: Specimen Type: BLOOD SPECIMENOrdering Facility: [facility] Address:[address] [place], [place] [address]Performed By: #### 56034-4 ####AMRITA LABORATORYCLIA [id number] [place] [id number] [place] AMERICAImmature granulocytes (Bld) [#/Vol]0.03 10*3/uL Normal<0.10Lover[facility] Colony State HospitalComment on above:Order Comment: Specimen Type: BLOOD SPECIMENOrdering Facility: [facility] Address:[address] [place], [place] [address]Performed By: #### 35647-4 ####AMRITA LABORATORYCLIA [id number] [place] [id number] [place] Immature granulocytes/100 WBC (Bld)0.5 %NormalGrafton State Hospital on above: Order Comment: Specimen Type: BLOOD SPECIMENOrdering Facility: [facility] Address:[address] [place], [place] [address]Performed By: #### 24982- 8 ####AMRITA LABORATORYCLIA [id number] [place] [id number] [place] OF AMERICALymphocytes (Bld) [#/Vol]1.18 10*3/uLNormal1.00-4.00 [facility] on above:Order Comment: Specimen Type: BLOOD SPECIMENOrdering Facility: [facility] Address:[address] [place], [place] [address]Performed By: #### 49770-4 ####AMRITA LABORATORYCLIA [id number] [address] Lymphocytes/100 WBC (Bld)18.8 %NormalFafree hospital for women HospitalComment on above:Order Comment: Specimen Type: BLOOD SPECIMENOrdering Facility: [facility] Address:[address] [place], [place] [address]Performed By: #### 62683- 8 ####AMRITA LABORATORYCLIA [id number] [address] (RBC) [Entitic mass]30.3 sqZrabqc46.0-34.0Fafree hospital for women HospitalComment on above:Order Comment: Specimen Type: BLOOD SPECIMENOrdering Facility: [facility] Address:[address] [place], [place] [address]Performed By: #### 86729-7 ####AMRITA LABORATORYCLIA [id number] [address]ETMCHC (RBC) [Mass/Vol] 32.8 g/iBXttfbb46.5-36.0Fafree hospital for women HospitalComment on above:Order Comment: Specimen Type: BLOOD SPECIMENOrdering Facility: [facility] Address:[address] [place], [place] [address]Performed By: #### 69576-8 ####AMRITA LABORATORYCLIA [id number] [address] (RBC) [Entitic vol]92.4 tIDbunob29.0-100.0Fafree hospital for women HospitalComment on above:Order Comment: Specimen Type: BLOOD SPECIMENOrdering Facility: [facility] Address:[address] [place], [place] [address]Performed By: #### 50040-9 ####AMRITA LABORATORYCLIA [id number] [address]ETMonocytes (Bld) [#/Vol] 0.66 10*3/uLNormal<0.87Fafree hospital for women HospitalComment on above:Order Comment: Specimen Type: BLOOD SPECIMENOrdering Facility: [facility] Address:[address] [place], [place] [address]Performed By: #### 45014-7 ####AMRITA LABORATORYCLIA [id number] [place] [id number] [place] AMERICAMonocytes/100 WBC (Bld)10.5 %NormalHouston HospitalComment on above: Order Comment: Specimen Type: BLOOD SPECIMENOrdering Facility: [facility] Address:[address] [place], [place] [address]Performed By: #### 81524- 8 ####AMRITA LABORATORYCLIA [id number] [place] [address] [place] AMERICANeutrophils (Bld) [#/Vol]4.06 10*3/uLNormal1.45-7.50 Houston HospitalComment on above:Order Comment: Specimen Type: BLOOD SPECIMENOrdering Facility: [facility] Address:[address] [place], [place] [address]Performed By: #### 53040-3 ####AMRITA LABORATORYCLIA [id number] [place] [id number] [place] Neutrophils/100 WBC (Bld)64.7 %NormalHouston HospitalComment on above:Order Comment: Specimen Type: BLOOD SPECIMENOrdering Facility: [facility] Address:[address] [place], [place] [address]Performed By: #### 40907- 8 ####AMRITA LABORATORYCLIA [id number] [place] [address] [place] AMERICANucleated RBC (Bld) [#/Vol]10*3/uLNormal<0.01Houston HospitalComment on above:Order Comment: Specimen Type: BLOOD SPECIMENOrdering Facility: [facility] Address:[address] [place], [place] [address]Performed By: #### 30869-1 ####AMRITA LABORATORYCLIA [id number] [place] [address] [place] AMERICANucleated RBC/100 WBC (Bld) [Ratio]0.0 /100 WBCNormalHouston HospitalComment on above:Order Comment: Specimen Type: BLOOD SPECIMENOrdering Facility: [facility] Address:[address] [place], [place] [address]Performed By: #### 81083-9 ####[facility] LABORATORYCLIA [id number] [place] [id number] UNITED MOUNTAINSTAR HEALTHCARE OF MERCY HEALTHPlatelet mean volume (Bld) [Entitic vol]10.1 fLNormal 9.0-12.7Fplunkett memorial hospital HospitalComment on above:Order Comment: Specimen Type: BLOOD SPECIMENOrdering Facility: [facility] Address:[address] [place], [place] [address]Performed By: #### 03994-2 ####[facility] LABORATORYCLIA [id number] [place] [id number] [place] Platelets (Bld) [#/Vol]182 10*3/jYEsognx992-588Shfveion HospitalComment on above:Order Comment: Specimen Type: BLOOD SPECIMENOrdering Facility: [facility] Address:[address] [place], [place] [address]Performed By: #### 32188-3 ####[facility] LABORATORYCLIA [id number] [place] [id number] UNITED [facility] H[facility]PITAL ALLEGHANYRBC (Bld) [#/Vol]4.99 10*6/uLNormal4.20-6.00 Houston HospitalComment on above:Order Comment: Specimen Type: BLOOD SPECIMENOrdering Facility: [facility] Address:[address] [place], [place] [address]Performed By: #### 29157-4 ####[facility] LABORATORYCLIA [id number] [place] [id number] [place] [facility] FRANCIS HOSPITAL & HEART CENTERWBC (Bld) [#/Vol]6.27 10*3/uLNormal3.70-11.00Houston HospitalComment on above:Order Comment: Specimen Type: BLOOD SPECIMENOrdering Facility: [facility] Address:[address] [place], [place] [address]Performed By: #### 61883- 8 ####[facility] LABORATORYCLIA [id number] [place] [id number] [facility] HOSPITALCEA SerPl-mCncon 41-06-7466Wsudhbovxyjkwtpx Ag [Mass/Vol]3.5 ng/mLHigh<=2.9Lover[facility] Colony State HospitalComment on above:Order Comment: Specimen Type: BLOOD SPECIMENOrdering Facility: [facility] Address:[address] [facility] [facility] [address]ENTER[address] [place], [place] [address]Result Comment: Carcinoembryonic antigen test is used as an aid in monitoring response to treatmentor recurrence in patients with established colorectal, breast, lung, prostatic, pancreatic, and ovarian carcinomas. Clinical correlation is required. The Carcinoembryonic antigen test was performed using the [employer] DXI paramagnetic particle chemiluminescent immunoassay method. Results obtained with different assay methods or kits cannot be used interchangeably.Performed By: #### 2039-6 ####[facility] [facility] LABCLIA [id number] [place] [address] [place] AMERICACT ABD/PEL W IVCONon [id number] ABD/PEL W IVCON* * *Final Report* * [...] pelvis. 4. Fatty infiltration of the liver. Hospice Case Manager: PSCJose Transcribe Date/Time: Jun 04 2024 8:16A Dictated by : OSKAR JOHNSON MD This examination was interpreted and the report reviewed and electronically signed by: OSKAR JOHNSON MD on Jun 04 2024 8:28AM EST [id number] Marine Hospital CHEST W IVCONon [id number] CHEST W IVCON* * *Final Report* * [...] pelvis. 4. Fatty infiltration of the liver. Hospice Case Manager: WILBER Transcribe Date/Time: Jun 04 2024 8:16A Dictated by : OSKAR JOHNSON MD This examination was interpreted and the report reviewed and electronically signed by: OSKAR JOHNSON MD on Jun 04 2024 8:28AM EST [id number] Colony State HospitalComprehensive metabolic 2000 panel on [id number] [Mass/Vol]4.1 g/dLNormal3.9-4.9L[facility] Colony State HospitalComment on above:Order Comment: Specimen Type: BLOOD SPECIMENOrdering Facility: [facility] Address:[address] [place], [place] [address]Performed By: #### 43518-4 ####[facility] LABORATORYCLIA [id number] [place] [id number] [place] OF AMERICAALP [Catalytic activity/Vol]85 U/BRfiign55-150 [facility] State HospitalComment on above:Order Comment: Specimen Type: BLOOD SPECIMENOrdering Facility: [facility] Address:[address] [place], [place] [address]Performed By: #### 41797-0 ####[facility] LABORATORYCLIA [id number] [place] [id number] [place] AMERICAALT [Catalytic activity/Vol]175 U/TRolx01-83Janqrrcj HospitalComment on above:Order Comment: Specimen Type: BLOOD SPECIMENOrdering Facility: [facility] Address:[address] [place], [place] [address]Performed By: #### 23319- 8 ####[facility] LABORATORYCLIA [id number] [place] [id number] [place] OF AMERICAAnion gap [Moles/Vol]13 mmol/LNormal8-15[facility] State HospitalComment on above:Order Comment: Specimen Type: BLOOD SPECIMENOrdering Facility: [facility] Address:[address] [place], [place] [address]Performed By: #### 91808-7 ####[facility] LABORATORYCLIA [id number] [place] [id number] [place] AMERICAAST [Catalytic activity/Vol]151 U/VLmty38-56Zhauucrm HospitalComment on above:Order Comment: Specimen Type: BLOOD SPECIMENOrdering Facility: [facility] Address:[address] [place], [place] [address]Performed By: #### 71656-8 ####[facility] LABORATORYCLIA [id number] [place] [id number] [place] OF AMERICABilirubin [Mass/Vol]0.6 mg/dLNormal0.2-1.3Fplunkett memorial hospital HospitalComment on above:Order Comment: Specimen Type: BLOOD SPECIMENOrdering Facility: [facility] Address:[address] [place], [place] [address]Performed By: #### 45852-7 ####[facility] LABORATORYCLIA [id number] [place] [id number] [place] AMERICACalcium [Mass/Vol]9.1 mg/dLNormal8.5-10.2Fplunkett memorial hospital HospitalComment on above:Order Comment: Specimen Type: BLOOD SPECIMENOrdering Facility: [facility] Address:[address] [place], [place] [address]Performed By: #### 94635-6 ####[facility] LABORATORYCLIA [id number] [place] [id number] [place] AMERICAChloride [Moles/Vol]94 mmol/LXfw32-677Ikeetbew HospitalComment on above: Order Comment: Specimen Type: BLOOD SPECIMENOrdering Facility: [facility] Address:[address] [place], [place] [address]Performed By: #### 62505- 8 ####[facility] LABORATORYCLIA [id number] [place] [id number] [place] AMERICACO2 [Moles/Vol]24 mmol/RHqudif82-68Ndhmwniv Hospital Comment on above:Order Comment: Specimen Type: BLOOD SPECIMENOrdering Facility: [facility] Address:[address] [place] [id number] Performed By: #### 73155-7 ####[facility] LABORATORYCLIA [id number] [place] [id number] [place] AMERICACreatinine [Mass/Vol]1.08 mg/dLNormal0.73-1.22[facility] on above:Order Comment: Specimen Type: BLOOD SPECIMENOrdering Facility: [facility] Address:[address] [place], [place] [address]Performed By: #### 47545-5 ####[facility] LABORATORYCLIA [id number] [place] [id number] [place] AMERICACreatinine and Glomerular filtration rate.predicted panel (S/P/Bld)82 mL/min/1.73m???Normal>=60[facility] on above:Order Comment: Specimen Type: BLOOD SPECIMENOrdering Facility: [facility] Address:[address] [place], [place] [address]Result Comment: Estimated Glomerular Filtration Rate (eGFR) is calculated using the 2020 CKD-EPI creatinine equation. This equation utilizes serum creatinine, sex, and age as parameters. The creatinine assay has traceable calibration to isotope dilution-mass spectrometry. Refer to KDIGO guidelines for clinical interpretation. In patients with unstable renal function, e.g. those with acute kidney injury, the eGFR may not accurately reflect actual GFR.Performed By: #### 91759-3 ####[facility] LABORATORYCLIA [id number] [place] [id number] [place] OF AMERICAGlucose [Mass/Vol]97 mg/fACzhkhz58-79ZnwapxrkGrafton State Hospital on above: Order Comment: Specimen Type: BLOOD SPECIMENOrdering Facility: [facility] Address:[address] [place], [place] [address]Result Comment: The [place] [employer] (ADA) provides guidance for cutoff [...] Standards of Medical Care in Diabetes 2016, [place] [employer]. Diabetes Care. 2016.39(Suppl 1).Performed By: #### 83256-2 ####[facility] LABORATORYCLIA [id number] [place] [id number] [place] AMERICAPotassium [Moles/Vol]5.2 mmol/LHigh3.7-5.1Fplunkett memorial hospital HospitalComment on above:Order Comment: Specimen Type: BLOOD SPECIMENOrdering Facility: [facility] Address:[address] [place], [place] [address]Performed By: #### 11093-8 ####[facility] LABORATORYCLIA [id number] [place] [id number] [place] OF AMERICAProtein [Mass/Vol]7.8 g/dLNormal6.3-8.0Fafree hospital for women HospitalComment on above:Order Comment: Specimen Type: BLOOD SPECIMENOrdering Facility: [facility] Address:[address] [place], [place] [address]Performed By: #### 12711-4 ####[facility] LABORATORYCLIA [id number] [place] [id number] [place] AMERICASodium [Moles/Vol]131 mmol/LXjy457-859Mwcebyrt HospitalComment on above: Order Comment: Specimen Type: BLOOD SPECIMENOrdering Facility: [facility] Address:[address] [place], [place] [address]Performed By: #### 87776- 8 ####[facility] LABORATORYCLIA [id number] [place] [id number] [place] AMERICAUrea nitrogen [Mass/Vol]11 mg/dLNormal9-24Fafree hospital for women HospitalComment on above:Order Comment: Specimen Type: BLOOD SPECIMENOrdering Facility: [facility] Address:[address] [place], [place] [address]Performed By: #### 32171-7 ####[facility] [id number] [address] STREETURSLAWRENCE F. [facility] PROGon [id number] PROGHNO ID: [id number] Author: ABILIO TANG, RN Service: PICC Team [...] Rodríguez DATE: June 02, 2024 TIME: 8:53 [facility] [id number] ([facility]) PIPER RODRÍGUEZ ([id number]) 1970 M Date Time Provider Department 06/01/24 DONIS CARIAS [facility] During your visit today, we recorded the following information about you: Be Cloud 06/01/2024 10:07 AM Signed 06/01 Patient called, stated that he wanted to cancel CT that was for 06/02 due to distance to appointment. Stated that will go to [facility] to gert CT done. Was wondering if able to go to [place] for CT? Jocelyn Cantrell RN 06/01/2024 11:03 AM Signed Spoke with patient. He was under the impression he could get his CT done in [place] and could have the images sent to Dr. Carias. We had a long discussion about the process to make that happen and my concerns that it would not be done in time to continue with his surgery on 06/14. He was agreeable to reschedule his CT at [place] on 06/02/24. He will get his lab work done tomorrow prior to his CT. Allergies As of Date: 06/01/2024 (No Known Allergies) Date Reviewed: 05/25/2024 Reviewed by: Jessica Bass OCCA - Fully Assessed Reason for Visit: Patient Question [2437] Prescriptions as of 06/01/2024 - metroNIDAZOLE (FLAGYL) [...] (None) Encounter Status:Closed by JOCELYN CANTRELL on 06/01/24[facility] [id number] Visit ([facility]) PIPER RODRÍGUEZ ([id number]) 1970 M Date Time Provider Department 05/25/24 11:20 AM DONIS CARIAS [facility] During your visit today, we [...] for internal providers or letter via the [place] [employer] for external providers. Chief Complaint: [...] Magallanes: Seth Castro operative note (path pending) [id number] Pathology Scan on 05/22/2024 8:26 AM by Be Cloud: [facility] Pathology Report 05/11/24 COLON, Biopsy, Cecum: [...] to proceed with st (more content not included)...NormalThe Jewish HospitalPathology Request for Lab Corpon [id number] Request for Lab CorpHCA Florida Plantation Emergency Physician GroupComment on above:Order Comment: PATHOLOGY GI SPECIMENResult Comment: See report. Scanned copy available in EMR. PERFORMED BY: [place] [address] PATHOLOGIST CAD SPECIALIST GUNNAR WILSON M.D.Performed By: #### PATH [facility] #### [place] [address] USAAmbulatory Visit Summaryon 30-78-0409Hxusycxcnq Visit SummaryAmbulatory Visit Summary PIPER RODRÍGUEZ :1970 [...] you for choosing us for your care. [facility] HospitalT4 LABCORPon [id number] [Mass/Vol]9.2 ug/dLNormal4.5-12.0The [facility] CenterComment on above:Performed By: #### T4LC #### [facility] [address] [place] [address] Dr. Rayna Graham AUTO DIFFon [id number] #0.0 103/ulNormal0.0-0.1The [facility] Medical CenterComment on above:Performed By: #### CBC #### [facility] [address] [place] [address] Dr. Rayna Mckenziesophils/100 WBC (Bld)0.7 %Normal0.2-2.0[facility] Comment on above:Performed By: #### CBC #### [facility] [address] [place] [address] Dr. Rayna Mejia #0.4 103/ulNormal0.0-0.7The [facility] Medical CenterComment on above: Performed By: #### CBC #### [facility] [address] [place] [address] Dr. Rayna Dewittosinophils/100 WBC (Bld)6.7 %Normal0.9-7.0The [facility] Comment on above:Performed By: #### CBC #### [facility] [address] [place] [address] Dr. Rayna Dewittrythrocyte distribution width (RBC) [Ratio]13.5 %Vqpovk50.0-15.[address] [facility] Medical CenterComment on above:Performed By: #### CBC #### [facility] [address] [place] [address] Dr. Rayna MathewHematocrit (Bld) [Volume fraction]37.2 %Critically low42.0-54.[address] [facility] Medical CenterComment on above:Performed By: #### CBC #### [facility] [address] [place] [address] Dr. Rayna MathewHemoglobin (Bld) [Mass/Vol]11.5 g/dLCritically low14.0-18.0The [facility] CenterComment on above:Performed By: #### CBC #### [facility] [address] [place] [address] Dr. Rayna Paul #0.02 10e3/ulNormal0.00-0.03The [facility] Medical CenterComment on above:Performed By: #### CBC #### [facility] [address] [place] [address] Dr. Rayan Paul %0.3 %Normal0.0-0.5The [facility] Medical CenterComment on above: Performed By: #### CBC #### [facility] [address] [place] [address] Dr. Rayna Cueto #1.4 103/ulNormal1.2-3.8The [facility] Medical CenterComment on above:Performed By: #### CBC #### [facility] [address] [place] [address] Dr. Rayna Estrellamphocytes/100 WBC (Bld)23.8 %Wkbdzp12.5-60.0The [facility] Medical CenterComment on above:Performed By: #### CBC #### [facility] [address] [place] [address] Dr. Rayna Fraser DIFF REQNONormalThe [facility] St[facility] Medical CenterComment on above: Performed By: #### CBC #### [facility] [address] [place] [address] Dr. Rayna Russell (RBC) [Entitic mass]27.4 ouGhyouj20.9-34.0The [facility] Medical CenterComment on above:Performed By: #### CBC #### [facility] [address] [place] [address] Dr. Rayna Russell (RBC) [Mass/Vol]30.9 g/vSFccktq55.9-35.2The [facility] Medical CenterComment on above:Performed By: #### CBC #### [facility] [address] [place] [address] Dr. Rayna Russell (RBC) [Entitic vol]88.6 gWUahcvu17.0-94.0The [facility] CenterComment on above:Performed By: #### CBC #### [facility] [address] [place] [address] Dr. Rayna Atkinson #0.6 103/ulNormal0.3-0.8The [facility] Medical CenterComment on above:Performed By: #### CBC #### [facility] [address] [place] [address] Dr. Rayna Romanoocytes/100 WBC (Bld)9.2 %Normal1.7-12.0The [facility] Comment on above:Performed By: #### CBC #### [facility] [address] [place] [address] Dr. Rayna Hendrix #3.5 103/ulNormal1.4-6.5The [facility] Medical CenterComment on above:Performed By: #### CBC #### [facility] [address] [place] [address] [address] Rayna Kincaidutrophils/100 WBC (Bld)59.3 %Dgtfvz65.0-75.0The [facility] on above:Performed By: #### CBC #### [facility] [address] [place] [address] Dr. Rayna MathewPlatelet mean volume (Bld) [Entitic vol]10.4 fLNormal9.5-13.5The [facility] CenterComment on above:Performed By: #### CBC #### [facility] [address] [place] [address] Dr. Rayna MathewPLT182 103/fpTyuxmq057-998Hgx [facility] CenterComveterans affairs medical center on above: Performed By: #### CBC #### [facility] [address] [place] [address] Dr. Rayna MathewRBC4.20 106/ulCritically low4.70-6.10The [facility] Medical CenterComveterans affairs medical center on above:Performed By: #### CBC #### [facility] [address] [place] [address] Dr. Rayna MathewWBC6.0 103/ulNormal4.0-11.0The [facility] on above: Performed By: #### CBC #### [facility] [address] [place] [address] Dr. Rayna MathewFREE T3on 06-19-2449JCFC T33.28 pg/mlLNormal2.18-3.98The [facility] on above:Performed By: #### FT3, TSH, CMP, LIPID #### [facility] [address] [place] [address] Dr. Rayna MathewGLYCOHEMOGLOBIN A1Con [id number] RECOMMENDATIONSEE BELOWNormal [facility] on above:Result Comment: ADA RECOMMENDED LIMIT 4.0 - 6.0 ADA THERAPEUTIC TARGET < 7.0 ACTION SUGGESTED > 7.0Performed By: #### A1C #### [facility] [address] [place] [address] Dr. Rayna MathewGlucose [Mass/Vol]123 mg/dLGrant HospitalComment on above:Performed By: #### A1C #### [facility] [address] [place] [address] Dr. Rayna MathewHbA1c (Bld) [Mass fraction]5.9 %Normal4.5-6.2[facility] HospitalComment on above:Performed By: #### A1C #### [facility] [address] [place] [address] Dr. Rayna WhitakerID PROFILEon 96-75-8236FLWK-HDL RATIO NORMSEE [facility] HospitalComment on above:Result Comment: 3.3 - 4.4 LOW RISK 4.4 - 7.1 AVERAGE RISK 7.1 - 11.0 MODERATE RISK >11.0 HIGH RISKPerformed By: #### FT3, TSH, CMP, LIPID #### [facility] [address] [place] [address] Dr. Rayna MathewCholesterol [Mass/Vol]158 mg/dLNormal<=200The [facility] Comment on above:Performed By: #### FT3, TSH, CMP, LIPID #### [facility] [address] [place] [address] Dr. Rayna Portilloesterol in HDL [Mass/Vol]47 mg/sPEzgusw41-88NocKettering Memorial HospitalComment on above:Performed By: #### FT3, TSH, CMP, LIPID #### [facility] [address] [place] [address] Dr. Rayna Portilloesterol in LDL [Mass/Vol]98.0 mg/dLGrant HospitalComment on above:Performed By: #### FT3, TSH, CMP, LIPID #### [facility] [address] [place] [address] Dr. Rayna Julian.total/Cholesterol in HDL [Mass ratio]3.4 {ratio} NormalKettering Memorial HospitalComment on above:Performed By: #### FT3, TSH, CMP, LIPID #### [facility] [address] [place] [address] Dr. Rayna Hatfield NORMAL> or = 60 mg/dl - LOW CARDIOVASCULAR RISK <40 mg/dl - HIGH CARDIOVASCULAR RISKGrant HospitalComment on above:Performed By: #### FT3, TSH, CMP, LIPID #### [facility] [address] [place] [address] [address] Rayna Arroyo CALC NORMALSEE BELOWGrant HospitalComment on above:Result Comment: <100 mg/dl OPTIMAL 100 - 129 mg/dl NEAR OR ABOVE OPTIMAL 130 - 159 mg/dl BORDERLINE HIGH 160 - 189 mg/dl HIGH >190 mg/dl VERY HIGH Performed By: #### FT3, TSH, CMP, LIPID #### [facility] [address] [place] [address] [address] Rayna MathewTriglyceride [Mass/Vol]65 mg/dLNormal<=150The [facility] Comment on above:Performed By: #### FT3, TSH, CMP, LIPID #### [facility] [address] [place] [address] [address] Ranya CamejoLDL CALC13.0 mg/dLNoBucyrus Community HospitalComment on above: Performed By: #### FT3, TSH, CMP, LIPID #### [facility] [address] [place] [address] [address] Rayna MathewPRORush 14(COMP METB)on 00-39-3001Ocmjeuf [Mass/Vol]3.8 g/dLNormal 3.4-5.0The [facility] Medical CenterComment on above:Performed By: #### FT3, TSH, CMP, LIPID #### [facility] [address] [place] [address] [address] Ranya MathewAlbumin/Globulin [Mass ratio]0.9 {ratio}NormalThe [facility] Medical CenterComment on above:Performed By: #### FT3, TSH, CMP, LIPID #### [facility] [address] [place] [address] Dr. Rayna Claros [Catalytic activity/Vol]76 U/IFnemwq13-225Cqy [facility] Medical CenterComment on above:Performed By: #### FT3, TSH, CMP, LIPID #### [facility] [address] [place] [address] [address] Rayna Garcia [Catalytic activity/Vol]109 U/LCritically yxmy04-65Lmn [facility] Medical CenterComment on above:Performed By: #### FT3, TSH, CMP, LIPID #### [facility] [address] [place] [address] [address] Rayna Grahamon gap [Moles/Vol]11.1 mmol/LNormalThe [facility] Comment on above:Performed By: #### FT3, TSH, CMP, LIPID #### [facility] [address] [place] [address] [address] Rayna Rivera [Catalytic activity/Vol]79 U/LCritically hruo84-21Qss [facility] CenterComment on above:Performed By: #### FT3, TSH, CMP, LIPID #### [facility] [address] [place] [address] Dr. Rayna MathewBilirubin [Mass/Vol]0.4 mg/dLNormal0.2-1.0[facility] Comment on above:Performed By: #### FT3, TSH, CMP, LIPID #### [facility] [address] [place] [address] Dr. Rayna MathewCalcium [Mass/Vol]9.0 mg/dLNormal8.5-10.1[facility] Comment on above:Performed By: #### FT3, TSH, CMP, LIPID #### [facility] [address] [place] [address] [address] Rayna MathewChloride [Moles/Vol]102 mmol/HMfmyrv47-984Zqx [facility] Comment on above:Performed By: #### FT3, TSH, CMP, LIPID #### [facility] [address] [place] [address] Dr. Rayna MathewCO2 [Moles/Vol]29.5 mmol/AJayyvd70.0-32.0[facility] Comment on above:Performed By: #### FT3, TSH, CMP, LIPID #### [facility] [address] [place] [address] Dr. Rayna MathewCreatinine [Mass/Vol]0.96 mg/dLNormal0.70-1.30The [facility] Medical CenterComment on above:Performed By: #### FT3, TSH, CMP, LIPID #### [facility] [address] [address] [address] Rayna DewittGFR-AF MACANESE>60Normal>=60The [facility] Medical CenterComment on above:Performed By: #### FT3, TSH, CMP, LIPID #### [facility] [address] [address] [address] Rayna DewittGFR-NON AF MACANESE>60Normal>=60The [facility] CenterComment on above:Performed By: #### FT3, TSH, CMP, LIPID #### [facility] [address] [address] [address] Rayna MathewGlobulin (S) [Mass/Vol]4.0 g/dLNormalThe [facility] CenterComment on above:Performed By: #### FT3, TSH, CMP, LIPID #### [facility] [address] [address] [address] Rayna MathewGlucose [Mass/Vol]121 mg/dLCritically litl11-323Cvc [facility] Hospitalment on above:Performed By: #### FT3, TSH, CMP, LIPID #### [facility] [address] [address] [address] Rayna MathewPotassium [Moles/Vol]4.6 mmol/LNormal3.5-5.1The [facility] Comment on above:Performed By: #### FT3, TSH, CMP, LIPID #### [facility] [address] [address] [address] Rayna MathewProtein [Mass/Vol]7.8 g/dLNormal6.4-8.2The [facility] Comment on above:Performed By: #### FT3, TSH, CMP, LIPID #### [facility] [address] [address] [address] Rayna MathewSodium [Moles/Vol]138 mmol/ZKknqnw559-994Brr [facility] Comment on above:Performed By: #### FT3, TSH, CMP, LIPID #### [facility] [address] [address] [address] Rayna Espinoza nitrogen [Mass/Vol]11.0 mg/dLNormal7.0-18.0The [facility] CenterComment on above:Performed By: #### FT3, TSH, CMP, LIPID #### [facility] [address] [address] [address] Rayna Espinoza nitrogen/Creatinine [Mass ratio]11.5 mg/mgNormalThe [facility] CenterComment on above:Performed By: #### FT3, TSH, CMP, LIPID #### [facility] [address] [address] [address] Rayna Kearney 23-20-9874NWJ9.905 uIU/mLNormal0.358-3.740The [facility] CenterComment on above:Performed By: #### FT3, TSH, CMP, LIPID #### [facility] [address] [address] [address] Rayna Mathew Vital Signs Date TimeVital SignValuePerforming MknfndgciRtvpnbhh80-28-1178 17:56-0400Body .8 cmAmanda Mariela TEXTILE CLOTHING AND [employer]OT[employer]CH[employer]IC Work Phone: [phone]09-09-2025 17:56-0400 Body mass index (BMI) [Ratio]36 kg/i3Ltjgkn Mariela [employer] MECHANIC Work Phone: [phone] [place], [place] 4802809-09-2025 17:56-0400 Body azkugedxarz317.1 [degF]Luna Mariela TEXTILE CLOTHING AND FOOTWEAR MECHANIC Work Phone: [phone] [place], [place] 4802809-09-2025 17:56-0400 Body jceoym705.85 kgAmanda Mariela TEXTILE CLOTHING AND FOOTWEAR MECHANIC Work Phone: [phone]09-09-2025 17:56-0400 Diastolic blood cwevaksz02 mm[Hg]Luna Mariela TEXTILE CLOTHING AND FOOTWEAR MECHANIC Work Phone: [phone]09-09-2025 17:56-0400 Heart cufh513 /minAmanda Mariela TEXTILE CLOTHING AND FOOTWEAR MECHANIC Work Phone: [facility]09-09-2025 17:56-0400 Respiratory rate18 /minAmanda Mariela TEXTILE CLOTHING AND FOOTWEAR MECHANIC Work Phone: [facility]09-09-2025 17:56-0400 SaO2% (BldA) [Mass fraction]95 %Luna Mariela TEXTILE CLOTHING AND FOOTWEAR MECHANIC Work Phone: [facility]09-09-2025 17:56-0400 Systolic blood zucjpfdq265 mm[Hg]Luna Mariela TEXTILE CLOTHING AND FOOTWEAR MECHANIC Work Phone: [facility]08-21-2025 12:58-0400 Body itskqe230.8 Leanne Carias MD Work Phone: [facility]08-21-2025 12:58-0400Body mass index (BMI) [Ratio]36.16 kg/a4YtmtevdDonis Carias MD Work Phone: [facility]08-21-2025 12:58-0400Body hukdzr523.31 kgDonis Carias MD Work Phone: [facility]08-21-2025 12:58-0400Diastolic blood rajyvzbi99 mm[Hg]Donis Carias MD Work Phone: [facility]08-21-2025 12:58-0400Heart rate69 /min Donis Carias MD Work Phone: [facility]08-21-2025 12:58-0400Systolic blood vmwzgirg198 mm[Hg]Donis Carias MD Work Phone: [facility]06-03-2025 09:55-0400Body mass index (BMI) [Ratio]36.28 kg/i8GcuwqpdDonis Carias MD Work Phone: [facility]06-03-2025 09:55-0400Body tpxdfi186.7 kgDonis Carias MD Work Phone: [facility]06-03-2025 09:55-0400Diastolic blood mm[Hg]Donis Carias MD Work Phone: [facility]06-03-2025 09:55-0400Heart rate71 /min Donis Carias MD Work Phone: [facility]06-03-2025 09:55-0400Systolic blood qegyikvh969 mm[Hg]Donis Carias MD Work Phone: [facility]02-14-2025 08:50-0500Body ubunvs471.8 cmKatnoé Conte TEXTILE CLOTHING AND FOOTWEAR MECHANIC.IRRIGATION EQUIPMENT INSTALLER Work Phone: [facility]02-14-2025 08:50-0500Body mass index (BMI) [Ratio]35.87 kg/v0Sdrbxbt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 TEXTILE CLOTHING AND FOOTWEAR MECHANIC.IRRIGATION EQUIPMENT INSTALLER Work Phone: [facility]02-14-2025 08:50-0500Body temperature 97.9 [degF]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 TEXTILE CLOTHING AND FOOTWEAR MECHANIC.IRRIGATION EQUIPMENT INSTALLER Work Phone: [facility]02-14-2025 08:50-0500Body pppups474.4 kgKatnoé Conte TEXTILE CLOTHING AND FOOTWEAR MECHANIC.IRRIGATION EQUIPMENT INSTALLER Work Phone: [facility]02-14-2025 08:50-0500Diastolic blood iqrcszwi70 mm[Hg]Malyin Conte TEXTILE CLOTHING AND FOOTWEAR MECHANIC.IRRIGATION EQUIPMENT INSTALLER Work Phone: [facility]02-14-2025 08:50-0500Heart rate88 /min 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 TEXTILE CLOTHING AND FOOTWEAR MECHANIC.IRRIGATION EQUIPMENT INSTALLER Work Phone: [facility]02-14-2025 08:50-6527PlO2% (BldA) [Mass fraction]99 %Maylin Conet TEXTILE CLOTHING AND FOOTWEAR MECHANIC.IRRIGATION EQUIPMENT INSTALLER Work Phone: [facility]02-14-2025 08:50-0500Systolic blood jxqfiwbd227 mm[Hg]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 TEXTILE CLOTHING AND FOOTWEAR MECHANIC.IRRIGATION EQUIPMENT INSTALLER Work Phone: [facility]02-05-2025 15:21-0500Blood Pressure LocationMichael NILL [phone]-CqhkeMary [facility] [place] 06-28-2024 15:21-0500Diastolic blood mm[Hg]Jone NILL [phone]-IkcvnMary [facility] [place] 06-28-2024 15:21-0500Heart rate72 /minMichael NILL [phone]-ManjoMary [facility] [place] 06-28-2024 15:21-0500Respiratory rate16 /minMichael NILL [phone]-ToengMary [facility] [place] 06-28-2024 15:21-0500Systolic blood dudpylne987 mm[Hg]Jone NILL [phone]-WztcjBarney [facility] 06-28-2024 10:56-0500Body .8 Angelo Bragg MD Work Phone: [facility] [phone] 10:56-0500Body mass index (BMI) [Ratio]36.47 kg/t4DvonehJoseph Bragg MD Work Phone: c[facility] ClinicGuqhlr13-61-9852 10:56-0500Body temperature 97.3 [degF]Joseph Bragg MD Work Phone: c[facility] ClinicUjeddt25-72-8483 10:56-0500Body jimnyq141.3 kgJoseph Bragg MD Work Phone: c[facility] ClinicDalhiy96-64-3836 10:56-0500Diastolic blood cptborgb49 mm[Hg]Joseph Bragg MD Work Phone: c[facility] ClinicHlchwx90-31-2701 10:56-0500Heart rate74 /min Joseph Bragg MD Work Phone: [facility] ClinicMoztlb68-64-8699 10:56-0500Respiratory rate 18 /minJoseph Bragg MD Work Phone: [facility] ClinicIstkvv07-90-1880 10:56-7806XyI9% (BldA) [Mass fraction]97 %Joseph Bragg MD Work Phone: c[facility] ClinicBivcwi21-46-5701 10:56-0500Systolic blood ezzvlnes175 mm[Hg]Joseph Bragg MD Work Phone: c[facility] ClinicCzrohs84-51-3820 08:34-0500Body .8 cmPacc 1 Work Phone: [phone]01-16-2025 08:34-0500Body mass index (BMI) [Ratio]38.78 kg/m2Pacc 1 Work Phone: [phone]01-16-2025 08:34-0500Body temperature 98.01 [degF]Pacc 1 Work Phone: [phone]01-16-2025 08:34-0500Body rwhnev278.6 kgPacc 1 Work Phone: [phone]01-16-2025 08:34-0500Diastolic blood drdmhahz26 mm[Hg]Pacc 1 Work Phone: [phone]01-16-2025 08:34-0500Heart rate72 /min Pacc 1 Work Phone: [phone] [address]-16-2025 08:34-0500Respiratory rate 15 /minPacc 1 Work Phone: [phone] [address]-16-2025 08:34-3228DdX3% (BldA) [Mass fraction]98 %Pacc 1 Work Phone: [phone] [address]-16-2025 08:34-0500Systolic blood ncqfjwma004 mm[Hg]Pacc 1 Work Phone: [facility]01-02-2025 11:10-0500Body meaiuq472.8 Leanne Carias MD Work Phone: [facility]01-02-2025 11:10-0500Body mass index (BMI) [Ratio]38.88 kg/x6UueloxbDonis Carias MD Work Phone: [facility]01-02-2025 11:10-0500Body temperature 97 [degF]Donis Carias MD Work Phone: [facility]01-02-2025 11:10-0500Body xgvyyu834.92 kgDonis Carias MD Work Phone: [facility]01-02-2025 11:10-0500Diastolic blood aerimjko98 mm[Hg]Donis Carias MD Work Phone: [facility]01-02-2025 11:10-0500Heart rate68 /min Donis Carias MD Work Phone: [facility]01-02-2025 11:10-5972MxP7% (BldA) [Mass fraction]97 %Donis Carias MD Work Phone: [facility]01-02-2025 11:10-0500Systolic blood czsducso711 mm[Hg]Donis Carias MD Work Phone: [facility]12-03-2024 10:21-0500Blood Pressure LocationMichael NILL [phone]-EdovfMary [facility] [place] 04-25-2024 10:21-0500Diastolic blood mwhszois86 mm[Hg]Jone NILChandra [phone]-PmnpuMary [facility] [place] 04-25-2024 10:21-0500Heart rate68 /minMichael NILL [phone]-FxxtlThe [facility] [place] 04-25-2024 10:21-0500Respiratory rate16 /minMichael NILL [phone]-ZekokThe [facility] [place] 04-25-2024 10:21-0500Systolic blood mm[Hg]Jone HEDRICK [phone]-SingfMary [facility] [place] Encounters Encounter DateEncounter TypeCare ProviderFacilityStart: 03-27-2025 End: 70-78-5214uukxcggspeWlvaysl R NILLFacility:[facility]: 03-27-2025 End: 98-74-4526Jpoxdsj encounter procedureMichael R NILL [phone]-OtzcaThe [facility] [place] Start: 03-14-2025 End: 05-33-0568rvkdomqmujEMR STAFF-[facility] [place] HospStart: 03-14-2025 End: 06-01-9027Vensflpd ReferredJone Hedrick MD FACS-LAB [facility] [place] HospStart: 03-14-2025 End: 81-33-0038ihgkxjpzpxRmsxdhu R NILLFacility:CD:[id number]: 02-21-2025 End: 74-87-7630zpixhfppuzKAX [facility] Work Phone: Start: 02-21-2025 End: 05-18-5254Tfgkrxyw ReferredDevan Franklin MD-[facility] Start: 02-20-2025 End: 63-39-5521knuzvoexvxTXH [facility] Work Phone: Start: 02-20-2025 End: 30-67-1844Gsxftbak Martha Esteves MD-[facility] [facility] Start: 02-02-2025 End: 83-62-3659euxgseqebaVFL [facility] Work Phone: Start: 02-02-2025 End: 38-59-4105Wtcodtpy ReferredDevan Franklin MD-[facility] Start: 01-30-2025 End: 88-17-3607kjiqzukkgxUSY [facility] Work Phone: Start: 01-30-2025 End: 23-73-9312Jxrmrju encounter procedureLuna Sierra M TEXTILE CLOTHING AND FOOTWEAR MECHANIC-[facility] Work Phone: Start: 01-11-2025 End: 23-14-0396Pufbsty encounter procedureDonis Carias MD Work Phone: Colorectal SurgeryComment on above:Incisional hernia, without obstruction or gangrene (Primary Dx)Start: 01-11-2025 End: 77-54-1392rxtqviprtqUIKUHSA KESHINROFacility:[facility] Start: 12-27-2024 End: 34-02-7709amwafgbqgkTzdettk R NILLFacility: [facility]vueStart: 12-27-2024 End: 03-97-0496Ujibyqo encounter procedureMichael R NILL [phone]-CoygxThe [facility] [place] Start: 10-24-2024 End: 26-65-7898Aboqklq encounter procedureDonis Carias MD Work Phone: COLORECTAL SURGERYComment on above:Follow-up examination after colorectal surgery (Primary Dx); History of colon cancerStart: 10-24-2024 End: 95-43-8422rgqvayeozsSCVBPNE KESHINROFacility:[facility] Start: 10-09-2024 End: 96-82-8600Ecpts Divya Gandhi RN Work Phone: Hematology/OncologyComment on above:Research (TCI Research Pre-Screening (NRG-GI008))Start: 10-04-2024 End: 37-85-2489Vjkdx Isacc Evans MD Work Phone: Hematology/OncologyStart: 09-27-2024 End: 52-84-1040wdavouyaccQVCOPVWL [facility] Cent[facility]art: 07-18-2024 End: 47-96-3174ejrrufoioiDfgrvsf R NILLFacility:[facility] Hospitaltart: 07-18-2024 End: 84-62-5723Jfxcdqk encounter procedureMichael R NILL [phone]-LwleyMary [facility] [place] Start: 07-07-2024 End: 42-44-5901fqqkhdwhmsIWRKEBG WILLNERFacility:[facility]tart: 07-07-2024 End: 62-58-7041Uwhxzga encounter procedure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 APRN.CNP Work Phone: Colorectal SurgeryComment on above:Follow-up examination after colorectal surgery (Primary Dx); Encounter for staple removalStart: 07-05-2024 End: 33-30-4169jemmewfhkzMmcpiww R NILLFacility:CD:[id number]: 06-30-2024 End: 06-53-0201Phxvzdmkr encounterChelle Willis RN Work Phone: Hematology/OncologyComment on above:Care Coordination (Cancelling appointments at our office)Start: 06-29-2024 End: 88-16-1609Whdgceloy Beaulieu Research Coordinator Hematology/OncologyComment on above:Research (TCI Research Pre-Screening (IRB: NRG-GI008))Start: 06-29-2024 End: 75-96-3488Tlnndcttd encounterChelle Willis RN Work Phone: Hematology/OncologyComment on above:Care Coordination (Treatment prep)Start: 06-28-2024 End: 26-89-3183Giztmsu encounter procedureMichael R NILL [phone]-DgukoThe [facility] Hospital [facility] [place] Start: 06-28-2024 End: 79-58-3341drhyjjqxepLVMHGV VENNEPUREDDYFacility:[facility] Start: 06-28-2024 End: 75-47-8068Jwvhhg outpatient new 60 minutesAdaandrew Bragg MD Work Phone: Hematology/OncologyComment on above:Malignant neoplasm of ascending colon (HCC)Start: 06-26-2024 End: 45-19-0162Idbldv Megan Carias MD Work Phone: Colorectal SurgeryComment on above:Malignant neoplasm of ascending colon (HCC) (Primary Dx)Start: 06-21-2024 End: 65-42-6094qlzcdbvpnlOnamtex R NILLFacility: [facility]vueStart: 06-21-2024 End: 42-41-6751Onbooqc encounter procedureMichael R NILL [phone]-JppvqThe [facility] [place] Start: 06-21-2024 End: 46-55-6808Yywbhbtew encounterDonis Carias MD Work Phone: Colorectal SurgeryStart: 06-21-2024 End: 86-21-9987Tztdbdljqc and management of inpatientDOUGLAS Gage ANDERSONLeroy Facility:[facility]: 06-20-2024 End: 69-61-0415Otlcoprnn encounterDonis Carias MD Work Phone: Colorectal SurgeryComment on above:Post OpStart: 06-19-2024 End: 23-33-7444Zyjxtwleq encounterDonis Carias MD Work Phone: Colorectal SurgeryComment on above:Patient Question Start: 06-14-2024 End: 73-08-5414Advgiaqwkb and management of inpatientDONIS CARIAS Facility:[facility]: 06-08-2024 End: 44-98-1926Rjnavbdfi to establishmentConfluence [facility], [facility] Maddi 1 Work Phone: Pre AnesthesiaStart: 06-08-2024 End: 60-67-8460gpvuhgdvfqHVOKAFZ KESHINROFacility:[facility] Start: 06-08-2024 End: 64-10-5682Mkjkqwtgmc consultationPeacehealth [facility] 1 Work Phone: pre AnesthesiaComment on above:Pre-op evaluation (Primary Dx); BMI 38.0-38.9,adult; Smokeless tobacco use; SHERIE (obstructive sleep apnea)Start: 06-08-2024 End: 01-01-8249Aesbykxqvuueo examination doneTrios Health Work Phone: [facility] Work Phone: Start: 06-05-2024 End: 19-26-9126Edgmhfues encounterDonis Carias MD Work Phone: FV Provider AdultStart: 06-02-2024 End: 77-87-4807wbukgfmzauUQUWYSV KESHINROFacility:[facility] HospitalStart: 56-13-7437palwqdhnkeYPEONPD KESHINROFacility:[facility] HospitalStart: 06-02-2024 End: 27-38-1940Zudbgbchxo hospital visit by physicianCt Prep [facility] Comment on above:Malignant neoplasm of ascending colon (HCC) [C18.2]Start: 06-01-2024 End: 35-01-5684Feukmpwff encounterDonis Carias MD Work Phone: Colorectal SurgeryComment on above:Patient Question Start: 05-25-2024 End: 45-04-2749pmbfugqxhrJDSTRGC KESHINROFacility:[facility] Start: 05-25-2024 End: 57-29-2495Swqmpcc encounter procedureDonis Carias MD Work Phone: Colorectal SurgeryComment on above:Malignant neoplasm of ascending colon (HCC) (Primary Dx)Start: 05-10-2024 End: 83-45-9764iuvszkggpfAdckhfx R NillFacility:[facility] Systemtart: 05-10-2024 End: 13-59-4247ekqwgvqawxGsvsqsy R NILLFacility::[id number]: 04-25-2024 End: 24-16-2714faknnjbomdBvzzzdi R NILLFacility:[facility] Hospitaltart: 04-25-2024 End: 17-02-9334Jzhiplm encounter procedureMichael R NILL [phone]-SqismThe [facility] [place] Start: 09-13-2023 End: 64-95-5685jgvxbenoflIF Gen Hoy Work Phone: [facility] Work Phone: Start: 09-13-2023 End: 39-40-3682Zojzintg ReferredMD Gen Hoy Work Phone: [facility] [place] HospStart: 08-02-2023 End: 10-39-7738Vguubtrh ReferredMD Gen Hoy Work Phone: [facility]-LAB [facility] [place] HospStart: 07-14-2022 End: 28-04-9992gkoqrjrhqpJW GEN HOY .Facility:A9Nrija: 91-72-9092bxxgpjvjrq DR GEN PEÑA .Facility:S6Alzpr: 05-80-6334Bqrchgcms for general adult medical examination without abnormal findingsDR GEN HOY .[facility]: 02-04-2022 End: 58-01-1472vyrwungvnaTT GEN HOY .Facility:R5Ccjgf: 02-04-2022 End: 74-02-2306Myuyigxog for general adult medical examination without abnormal findingsDR GEN HOY .Facility:U8Eoeee: 22-44-9844ikmdcyrmbzDI GEN HOY . Facility: Procedures DateProcedureProcedure DetailPerforming ClinicianStart: 48-81-2919Utekvelnsyw Jone NILL Start: 81-65-1034Gvcjvyl of implantable venous access portMichael NILL Start: 25-58-0829Dmoae cultureAmanda Mariela TEXTILE CLOTHING AND FOOTWEAR MECHANIC Work Phone: Start: 52-13-0178Cjsugksz identified in Blood by CultureAmanda Mariela TEXTILE CLOTHING AND FOOTWEAR MECHANIC Work Phone: Start: 04-77-9102Cdnuo cultureAmanda Mariela TEXTILE CLOTHING AND FOOTWEAR MECHANIC Work Phone: Start: 29-52-6383Ckxdh cultureAmanda Mariela TEXTILE CLOTHING AND FOOTWEAR MECHANIC Work Phone: Start: 47-77-2921Helnmz-up visitFollow [facility] Health CenterROStart: 10-97-4872Hocxrkrjq of implantable venous access portMichael NILL Start: 96-47-6092Fmtla colectomyMichael NILL Start: 39-53-7206Aoi routine ecg w/least 12 lds i&r onlyCcf ProviderStart: 04-97-9704JenmzpurcguImxqkni NILL Start: 50-73-6776OhvwonzsyndpjckydyfasznxkgGawosyy NILL Start: 69-85-0247YCU screeningDR GEN PEÑA .Comment on above:Performed By: #### PSASC #### [facility] [address] [place] [address] Dr. Rayna MathewStart: 37-42-4786OcbnglsvqzeWazxalw NILL Repair of joint of left hipMichael NILL Repair of joint of right hipMichael NILL Plan of Treatment DateCare ActivityDetailAuthorStart: 88-56-7865Ncrfb microalbumin profile DTaP,Tdap,Td Vaccine (2 - Td or Tdap)[facility]: 56-70-4299Wunvzozp ScreeningDiabetes ScreeningDunlap Memorial Hospitaltart: 35-33-6633Abhcynjb Screening Diabetes ScreeningDunlap Memorial Hospitaltart: 39-05-7615Zsetgqrl ScreeningDiabetes ScreeningDunlap Memorial Hospitaltart: 21-01-5240IZ Controlled (<130/80)BP Controlled (<130/80)[facility] Hospitaltart: 99-71-0484Xrgikduv identified in Urine by CultureUrine CultureThe MetroHealth Systemtart: 67-02-6714Kgyva [facility] Hospitaltart: 34-74-2971Khesunhn identified in Blood by CultureBlood CultureThe MetroHealth Systemtart: 02-20-2025 Bacteria identified in Urine by CultureUrine [facility] Hospitaltart: 02-20-2025 End: 91-15-0776DtqzkvywqThe MetroHealth Systemtart: 02-20-2025 End: 37-03-9139Jedcp [facility] Hospitaltart: 02-02-2025 Urine cultureThe MetroHealth Systemtart: 80-44-9401Vymaumar identified in Urine by CultureUrine [facility] Start: 76-97-6770Jwcleapps vaccinationDunlap Memorial Hospitaltart: 10-24-2024 End: 46-62-0764Teesjkb encounter procedureCOLORECTAL SURGERYComment on above:3 month follow up3 month follow up laparoscopic right colectomy on 06/14/2024 for colon cancerStart: 10-09-2024 End: 58-35-7480annjtjozbz16/19/2025 4:00 PM EDT Visit (SP) Office Hematology/Oncology [address] [place] [address] [place], [place] [phone] Abdias Evans MD [address] [place] [address] [place] [address] Kisha Esteves for 2nd opinion DX: Colon CA Hematology/OncologyComment on above:Ref by Dr Kisha Esteves for 2nd opinion DX: Colon CAStart: 07-14-2024 End: 53-08-4368igkrtmxuyp61/21/2025 11:30 AM [facility] Hematology/Oncology [address] [place] [address] [place] [address] pump disconnectHematology/OncologyComment on above:pump disconnectStart: 07-12-2024 End: 16-26-7493Htyqwoobbgrfvsej Ag [Mass/volume] in Serum or Plasma CARCINOEMBRYONIC ANTIGEN Lab Routine Malignant neoplasm of ascending colon (HCC) Expected: 07/12/2024 (Approximate), Expires: 10/11/2024leveland ClinicComment on above:Expected: 07/12/2024 (Approximate), Expires: 10/11/2024Start: 07-12-2024 End: 39-85-6707EPO W Auto Differential panel - BloodCOMPLETE BLOOD COUNT AND DIFFERENTIAL Lab Routine Malignant neoplasm of ascending colon (HCC) Expected: 07/12/2024 (Approximate), Expires: 10/11/2024[facility] ClinicComment on above: Expected: 07/12/2024 (Approximate), Expires: 10/11/2024Start: 07-12-2024 End: 20-59-4121Qsotjdueacetx metabolic 2000 panel - Serum or PlasmaCOMPREHENSIVE METABOLIC PANEL Lab Routine Malignant neoplasm of ascending colon (HCC) Expected: 07/12/2024 (Approximate), Expires: 10/11/2024[facility] ClinicComment on above:Expected: 07/12/2024 (Approximate), Expires: 10/11/2024Start: 07-12-2024 End: 46-49-3176Gvupvmgu [Mass/volume] in Serum or PlasmaFERRITIN Lab Routine Malignant neoplasm of ascending colon (HCC) Expected: 07/12/2024 (Approximate), Expires: 10/11/2024[facility] ClinicComment on above:Expected: 07/12/2024 (Approximate), Expires: 10/11/2024Start: 07-12-2024 End: 92-24-6875Ppxt and Iron binding capacity panel - Serum or PlasmaIRON AND TIBC Lab Routine Malignant neoplasm of ascending colon (HCC) Expected: 07/12/2024 (Approximate), Expires: 10/11/2024[facility] ClinicComment on above: Expected: 07/12/2024 (Approximate), Expires: 10/11/2024Start: 07-12-2024 End: 03-64-6322ELHJ SEND OUT TST 1MISC SEND OUT TST 1 Lab Routine Malignant neoplasm of ascending colon (HCC) Expected: 07/12/2024 (Approximate), Expires: 10/11/2024[facility] ClinicComment on above:Expected: 07/12/2024 (Approximate), Expires: 10/11/2024Start: 07-12-2024 End: 18-47-6286Twryfx-up encounterHematology/OncologyComment on above:2 week follow up with l;ab port draw chemotx folfox pump connectStart: 07-07-2024 End: 90-17-8123Blmwfcg encounter lrmskmuzi41/14/2025 9:00 AM EST Office Visit Colorectal Surgery [address] [phone] 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, TEXTILE CLOTHING AND FOOTWEAR MECHANIC.IRRIGATION EQUIPMENT INSTALLER [address], [place] [phone] Post Op: Staple Removal - Lap RHC 06/14 [place] Colorectal SurgeryComment on above:Post Op: Staple Removal - Lap RHC 06/14 [place] Start: 92-48-8951CR PORTOCATH PLACEMENTIR PORTOCATH PLACEMENT Radiology Routine Malignant neoplasm of ascending colon (HCC) Expected: 07/05/2024 (Approximate) [facility] Work Phone: comment on above:Expected: 07/05/2024 (Approximate) Start: 07-05-2024 End: 37-82-7479Nwgryej encounter jukjysmqh77/12/2025 10:40 AM EST Office Visit Colorectal Surgery [address] [address] 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, TEXTILE CLOTHING AND FOOTWEAR MECHANIC.IRRIGATION EQUIPMENT INSTALLER [address] [phone] Post Op Lap RHC 06/14 AKColorectal Surgery Comment on above:Post Op Lap RHC 06/14 AKStart: 06-30-2024 End: 55-57-2119Blsxers encounter nqcytnxkz64/07/2025 3:40 PM EST Office Visit Colorectal Surgery [address] [facility] [address] [place], [place] [phone] 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 APRN.IRRIGATION EQUIPMENT INSTALLER [address] [facility] [address] [place], [place] [phone] Post Op Lap RHC 06/14 AKColorectal Surgery Comment on above:Post Op Lap RHC 06/14 AKStart: 06-30-2024 End: 95-11-3647Krxjlcr evaluation of patient and zfvqdp8306/30/2024 1:00 PM EST Nurse Visit Hematology/Oncology [address] [place] [address] [place] [address] [phone] Chelle Willis RN [address] [place] [address] [place] [address] Chemo ed Folfox with pump connectHematology/OncologyComment on above: Chemo ed Folfox with pump connectStart: 06-28-2024 End: 30-34-9626epftbebxfw11/05/2025 11:00 AM EST Visit (SP) Office Hematology/Oncology [address] [place] [place] [address] Joseph Bragg MD [address] [place] [address] [place] [address] Malignant neoplasm of ascending colon Hematology/OncologyComment on above:Malignant neoplasm of ascending colonStart: 06-22-2024 End: 19-31-4144Hhtugyd encounter mvtuwdixw25/30/2025 8:40 AM EST Office Visit Colorectal Surgery [address] [facility] [address] [place] [address] [place] [address] [place], [place] [phone] Post Op surgical wound checkColorectal SurgeryComment on above:Post Op surgical wound checkStart: 06-21-2024 End: 63-63-5314Texfjawuhaq laparotomy celiotomy w/wo biopsy spxEXPLORATORY LAPAROTOMY Perioperative dehiscence of abdominal wound with evisceration 06/21/2024 3:00 PM ESTFV ORStart: 06-14-2024 End: 64-21-8834Cszpxqzng to same day surgery zirnck4706/14/2024 7:30 AM EST - 06/14/2024 11:45 AM EST Surgery [facility] Operating Room [address] [place] [address] [place] [id number] [id number] LAPAROSCOPY COLECTOMY, PARTIAL, W/ REMOVAL TERMINAL ILEUM W/ ILEOCOLOSTOMYLovering Colony State Hospital Operating RoomComment on above:LAPAROSCOPY COLECTOMY, PARTIAL, W/ REMOVAL TERMINAL ILEUM W/ ILEOCOLOSTOMYStart: 06-14-2024 End: 04-30-2643Ooxg colectomy prtl w/rmvl terminal ileumLAPAROSCOPY COLECTOMY, PARTIAL, W/ REMOVAL TERMINAL ILEUM W/ ILEOCOLOSTOMY Malignant neoplasm of asc ending colon (HCC) 06/14/2024 7:30 AM ESTFV ORStart: 82-68-5270Okxfllshrj hospital visit by physicianLovering [facility] Operating RoomComment on above: Malignant neoplasm of ascending colon (HCC) [C18.2]Start: 06-08-2024 End: 26-90-5799Snztiucqi to same day surgery pxwbvs8306/08/2024 8:50 AM EST PAT Pre Anesthesia [address] [place] [address] surgery date 06/14Pre AnesthesiaComment on above:surgery date 06/14Start: 06-02-2024 End: 70-23-7586bfcvylcbzy53/10/2025 10:00 AM EST Results Only [facility] Draw Station [address] [place] [address] [facility] Draw StationStart: 06-02-2024 End: 93-23-3437Uhtpqib encounter procedureRadiologyComment on above:CT CHEST/ABD/PELVISCt prepAbd/Pel/ChestStart: 05-25-2024 End: 46-40-8783Iapynhwsoawxwiyi Ag [Mass/volume] in Serum or Plasma CARCINOEMBRYONIC ANTIGEN Lab Routine Malignant neoplasm of ascending colon (HCC) Expected: 05/25/2024 (Approximate), Expires: 08/24/2024[facility] ClinicComment on above:Expected: 05/25/2024 (Approximate), Expires: 08/24/2024Start: 05-25-2024 End: 28-83-4603JQI W Auto Differential panel - BloodCOMPLETE BLOOD COUNT AND DIFFERENTIAL Lab Routine Malignant neoplasm of ascending colon (HCC) Expected: 05/25/2024 (Approximate), Expires: 08/24/2024[facility] Work Phone: Comment on above:Expected: 05/25/2024 (Approximate), Expires: 08/24/2024Start: 05-25-2024 End: 27-89-2646Yqgtefdrqhnys metabolic 2000 panel - Serum or PlasmaCOMPREHENSIVE METABOLIC PANEL Lab Routine Malignant neoplasm of ascending colon (HCC) Expected: 05/25/2024 (Approximate), Expires: 08/24/2024[facility] ClinicComment on above:Expected: 05/25/2024 (Approximate), Expires: 08/24/2024Start: 38-22-0551Nehar-19 Vaccine ( season)Covid-19 Vaccine ( season)[facility]: 10-64-2221Qegmuzdup vaccinationInfluenza Vaccine (#1)[facility]: 59-30-2204Aktergrxkhbs Vaccine: 50+ (1 of 1 - PCV) Pneumococcal Vaccine: 50+ (1 of 1 - PCV)[facility]: 2021 Shingrix Vaccine (1 of 2)Shingrix Vaccine (1 of 2)[facility]: 93-45-0438Rzjxjdns ScreeningDiabetes ScreeningDunlap Memorial Hospitaltart: 02-18-2016 Screening for malignant neoplasm of colonDunlap Memorial Hospitaltart: 74-71-3909Ohwko panelLipid ScreeningDunlap Memorial Hospitaltart: 68-22-3798Lcbaleiwo B Vaccine (1 of 3 - 19+ 3-dose series)Hepatitis B Vaccine (1 of 3 - 19+ 3-dose series)[facility]: 31-79-3168Yhrlq microalbumin profileDTaP,Tdap,Td Vaccine (1 - Tdap) [facility]: 25-83-4718Umidzm PCP Team Chronic Disease VisitAnnual PCP Team Chronic Disease VisitDunlap Memorial Hospitaltart: 27-70-4564Befwcfn Screening Anxiety ScreeningDunlap Memorial Hospitaltart: 04-07-0374JM Controlled (<130/80)BP Controlled (<130/80)[facility]: 98-35-8878Othxkwrwkg Screening Depression ScreeningDunlap Memorial Hospitaltart: 33-24-3218Sihqicvfx C screening Hepatitis C ScreeningDunlap Memorial Hospitaltart: 71-03-7593ZEB screeningHIV Screening [facility] End: 26-64-3217NG Abdomen and Pelvis W contrast IVCT ABD/PEL W IVCON Radiology Routine Malignant neoplasm of ascending colon (HCC) 1 Occurrences starting 05/25/2024 until 06/24/2025[facility] ClinicComment on above:1 Occurrences starting 05/25/2024 until 06/24/2025T Abdomen and Pelvis W contrast IVCT ABD/PEL W IVCON Radiology Routine Malignant neoplasm of ascending colon (HCC) 06/02/2024 9:41 AMESTFort [facility] Work Phone: End: 93-02-5383XM Chest W contrast IVCT CHEST W IVCON Radiology Routine Malignant neoplasm of ascending colon (HCC) 1 Occurrences starting 05/25/2024 until 06/24/2025[facility] ClinicComment on above:1 Occurrences starting 05/25/2024 until 06/24/2025T Chest W contrast IVCT CHEST W IVCON Radiology Routine Malignant neoplasm of ascending colon (HCC) 06/02/2024 9:41 AM EST [facility] Work Phone: Comment on above:Ordered: 06/08/2024Laps colectomy prtl w/rmvl terminal ileumLAPAROSCOPY COLECTOMY, PARTIAL, W/ REMOVAL TERMINAL ILEUM W/ ILEOCOLOSTOMY Malignant neoplasm of ascending colon (HCC)FV OR Immunizations Immunization DateImmunizationNotesCare SbnxfyexAwzettik89-77-0245QOCB-NqD-9 (COVID-19) xSCA-8416 vaccineMichael NILL [phone]-ZujecThe [facility] [place] Comment on above:Result Comment: 2024-04-17: JOB5601-23-7898SOKQ-CcU-3 (COVID- 19) gJSZ-5969 vaccineMichael NILL [phone]-JcaxxThe [facility] [place] Comment on above:Result Comment: 2024-04-17: QOE4324-42-3318whhpjalke, injectable, quadrivalent, preservative freeAbdias Evans MD Work Phone: [facility] HospitalPzcwyt77-83-8411dvybxqyqx virus vaccine, unspecified formulationDonis Carias MD Work Phone: [facility] Payers DatePayer CategoryPayerPolicy [id number] Health [id number] Health Insurance [id number] MMO SUPERMED PPO [id number] 2023-Present [phone] [address] [place] [address] [id number] 2.840.1.759606.3.57[id number] 2.840.1.150059.3.57[id number] 2.840.1.592589.3.57[id number] 2.840.1.187650.3.57[id number] 2.840.1.652004.3.57[id number] 2.16.840.1.067860.3.579.2.79637-89-0931Iyuytfl33221340 2..1.729450.3.579.2.28[id number] 2..1.825188.3.579.2.75670-17-6596Jsdqunb60382090 2..1.028858.3.579.2.25170-48-0538Glhqttn09851681 2..1.785824.3.57[id number] 2..1.457934.3.57[id number] 2..1.703972.3.57[id number] 2..1.281065.3.579.2.10577-31-9130Onib-sfr88690498681-46-5641Ljwjbms [id number] /[id number] x9817098-l13v-56a7-0v65-52ke3hbi4fe6 [id number] 2..1.344132.3.579.2.831Efuhcke74492707 2..1.739024.3.579.2.084Opkyvsz91490933 2..1.461845.3.579.2.531 Ytcjddu46344773 2..1.229231.3.579.2.978Vebvsoy15459416 2..1.591470.3.579.2.531 Social History DateTypeDetailFacilityTobacco smoking status NHISUnknown if ever smokedKettering Health Miamisburg Work Phone: Start: 28-81-6029Jnt Assigned At [facility]: 04-25-2024 End: 96-69-0689Whsdphs smoking statusNever smoked tobacco (finding)[facility]: 72-53-9954Ktjcmoc smoking status Smokeless tobacco user within last 30 daysSouthview Medical Centertart: 05-25-2024 End: 21-80-7340Niq Assigned At [facility]: 05-25-2024 End: 60-89-5682Rbgdypd use and exposureUser of smokeless tobaccoBarnesville Hospital History of tobacco useChews TobaccoDunlap Memorial Hospitaltart: 05-25-2024 End: 96-71-6605Sssgdlm of Social functionDunlap Memorial Hospitaltart: 29-35-0984Wpt assigned at birthNot on fileDunlap Memorial Hospitaltart: 06-08-2024 End: 03-13-7136Ixjywnuex beverage intakeEx-drinker (finding)[facility] HospitalHa the electric, gas, oil, or water company threatened to shut off services in your home in past 12MoNoClLake County [facility](I/We) worried whether (my/our) food would run out before (I/we) got money to buy more.Never trueBarnesville HospitalHistory of tobacco usePassive smokerDunlap Memorial Hospitalexual OrientationBarney Children'S Medical Center Start: 67-66-6597UshIygk (finding)[facility] Functional Status LbvkHmlztcnkpbQitazdTycefxdn47-81-4603Ydajkoubco StatusN/AFUniversity Hospitals Portage [facility]02-05-2025Functional StatusN/[facility]01-31-2025Are you deaf, or do you have serious difficulty hearingNo 06/23/2024 10:06 AM Jessica Urban, RN No [facility] HospitalTgyycs97-51-9369Loe you blind, or do you have serious difficulty seeing, even when wearing glassesNo 06/23/2024 10:06 AM Jessica Urban RN NoCmercy health anderson hospitalraul Jgzcbw71-87-7710Hy you have serious difficulty walking or climbing stairsNo 06/23/2024 10:06 AM Jessica Urban RN NoCMarietta Osteopathic Clinic 31-74-9451Rh you have difficulty dressing or bathingNo 06/23/2024 10:06 AM Jessica Urban RN NoCmercy health anderson hospitalraul Tebhjx54-73-2139Okisrhm of a physical, mental, or emotional condition, do you have difficulty doing errands alone such as visiting a physician's office or shoppingNo 06/23/2024 10:06 AM Jessica Urban RN NoCmercy health anderson hospitalraul Hknqbu37-56-1274Tvxdnaqdwu StatusN/StefBucyrus [facility] Mental Status DxosGvlajbubpxNpmsmdVqluzovo54-13-2357Tuxdlho of a physical, mental, or emotional condition, do you have serious difficulty concentrating, remembering, or making decisionsNo 06/23/2024 10:06 AM Jessica Urban RN [facility] Clinical Notes 04-25-2024 to 01-30-2025 Note Date & MgwwYbiaZoyrtvzn05-20-7996 Evaluation note* Diagnosis Onset Date Resolution Status Admit Date Viral URI acuteSeptember 2024 5:55pm [facility] Work Phone: 1(899) 813-164008-21-2025 Instructions* Patient Instructions* Donis Carias MD - [...] out to our office. documented in this encounterBarnesville Hospital08-21-2025 History of Present illness Narrative* Donis Carias MD - 01/11/2025 1:00 PM EDT COLORECTAL SURGERY CLINIC NOTE January 11, 2025 Piper Rodríguez 54 year old Recording using [employer] software for draft documentation of the visit was discussed with the patient/authorized players club representative; all questions welcomed and answered. Patient/authorized players club representative agreed to proceed Chief Complaint: abdominal [...] recti Colonoscopy 06/03/2018 - Dr Hedrick @ [facility] Scan on 05/15/2024 9:54 AM by Be Cloud: [facility]- Operative Report 06/03/18 Colonoscopy 05/10/24 - Dr. Hedrick @ [facility] Scan on 05/16/2024 9:34 AM by Norma Magallanes: [facility] operative note (path pending) [id number] Pathology Scan on 05/22/2024 8:26 AM by Be Cloud: [facility] Pathology Report 05/11/24 COLON, Biopsy, Cecum: [...] 2.5 View External Labs - Chemistry [ID [id number]] Surveillance CT C A P on 09/26/2024 at [facility] -images uploaded into [email or web address] -no evidence of recurrence in chest, abdomen, pelvis Scan on 10/06/2024 10:52 AM by Dat Brown: [facility] - CT Scan, 09/26/24 Assessment [...] Drug use: Not Currently documented in this encounterBarnesville Hospital08-21-2025 NoteHNO ID: [id number] Author: DONIS CARIAS MD Service: ? Author Type: Physician Type: Progress Notes Filed: 01/11/2025 13:34 Note Text: COLORECTAL SURGERY CLINIC NOTE January 11, 2025 Piper Rodríguez 54 year old Recording using [employer] software for draft documentation of the visit was discussed with the patient/authorized players club representative; all questions welcomed and answered. Patient/authorized players club representative agreed to proceed Chief Complaint: abdominal [...] recti Colonoscopy 06/03/2018 - Dr Hedrick @ [facility] Scan on 05/15/2024 9:54 AM by Be Cloud: [facility]- Operative Report 06/03/18 Colonoscopy 05/10/24 - Dr. Hedrick @ [facility] Scan on 05/16/2024 9:34 AM by Norma Magallanes: [facility] operative note (path pending) [id number] Pathology Scan on 05/22/2024 8:26 AM by Be Cloud: [facility] Pathology Report 05/11/24 COLON, Biopsy, Cecum: [...] Omentum with no evid (more content not included)...[facility] 12-27-2024 NoteGeneral Surgery Office/Clinic Note Chief Complaint consultation for port removal HPI Staff Presents to discuss removal of Ywanfq-t-ithe. Port placed 06/2024 for chemotherapy due to [...] vaccine 08/22/2020 Recorded 2023- (more content not included)...[facility] CenterComment on above:Result Comment: Electronically Signed By: FLORIDALMA PATEL, Jone Bell\Date and Time Signed: 12/27/24 14:47 [id number] Instructions* Patient Instructions* Donis Carias MD - [...] please contact our office. documented in this encounterBarnesville Hospital06-03-2025 History of Present illness Narrative* Donis Carias MD - 10/24/2024 10:00 AM EDT COLORECTAL SURGERY CLINIC NOTE Recording using [employer] software for draft documentation of the visit was discussed with the patient/authorized players club representative; all questions welcomed and answered. 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 He underwent evaluation by a destination coordinator, including an echocardiogram, which was reportedly [...] Colonoscopy 06/03/2018 - Dr Hedrick @ [facility] Scan on 05/15/2024 9:54 AM by Be Cloud: [facility]- Operative Report 06/03/18 Colonoscopy 05/10/24 - Dr. Hedrick @ [facility] Scan on 05/16/2024 9:34 AM by Norma Magallanes: [facility] operative note (path pending) [id number] Pathology Scan on 05/22/2024 8:26 AM by Be Cloud: [facility] Pathology Report 05/11/24 COLON, Biopsy, Cecum: [...] 2.5 View External Labs - Chemistry [ID [id number]] Surveillance CT C A P on 09/26/2024 at [facility] -images uploaded into [email or web address] -no evidence of recurrence in chest, abdomen, pelvis Scan on 10/06/2024 10:52 AM by Dat Brown: [facility] - CT Scan, 09/26/24 Assessment [...] 2025. Patient to schedule with GI at [facility]. RTC prn Medical Decision Making: Data [...] Carias MD Colorectal Surgery documented in this encounterBarnesville Hospital06-03-2025 NoteHNO ID: [id number] Author: DONIS CARIAS MD Service: ? Author Type: Physician Type: Progress Notes Filed: 10/24/2024 10:19 Note Text: COLORECTAL SURGERY CLINIC NOTE Recording using [employer] software for draft documentation of the visit was discussed with the patient/authorized players club representative; all questions welcomed and answered. 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 He underwent evaluation by a destination coordinator, including an echocardiogram, which was reportedly [...] defect Colonoscopy 06/03/2018 - Dr Hedrick @ [facility] Scan on 05/15/2024 9:54 AM by Be Cloud: [facility]- Operative Report 06/03/18 Colonoscopy 05/10/24 - Dr. Hedrick @ [facility] Scan on 05/16/2024 9:34 AM by Norma Magallanes: [facility] operative note (path pending) [id number] Pathology Scan on 05/22/2024 8:26 AM by Be Cloud: [facility] Pathology Report 05/11/24 COLON, Biopsy, Cecum: COLONIC TISSUE WITH INVASIVE ADENOCARCINOMA, MODERATELY DIFFERENTIATED, ULCERATION NOTED 2. COLON, Biopsy, Sigmoid: LARGE TUBULAR ADENOMA (>1 CM), NEGATIVE FOR HIGH GRADE DYSPLASIA, AREAS SHOWING CAUTERY ARTIFACT ARE POSITIVE FOR ADENOMATOUS GLANDS 3. COLON, Biopsy, Descending: TU (more content not included)...[facility]05-19-2025 NoteHNO ID: [id number] Author: TORI GANDHI RN Service: ? Author Type: Registered Nurse Type: Progress Notes Filed: 10/09/2024 12:43 Note Text: Summary: [facility] Research Pre-Screening (NRG-GI008) Piper Rodríguez was reviewed for potential clinical trial enrollment on [facility] #NRG-GI008 by the [facility] on 10/09/24. Per initial review, patient has disease type Colon cancer, stage IIIB and appears to be not eligible based on > 60 days from surgery and patient has already started treatment. Requesting green party notified. No Study tasks were completed as a result of this initial review. Tori Gandhi, MSN, RN Research Nurse Coordinator cMed[facility]05-19-2025 History of Present illness Narrative* Tori Gandhi RN - 10/09/2024 12:40 PM EDTSummary: [facility] Research Pre-Screening (NRG-GI008) Piper Rodríguez was reviewed for potential clinical trial enrollment on [facility] #NRG- GI008 by the [facility] on 10/09/24. Per initial review, patient has disease type Colon cancer, stage IIIB and appears to be not eligible based on > 60 days from surgery and patient has already started treatment. Requesting green party notified. No Study tasks were completed as a result of this initial review. Tori Gandhi, АЛЕКСАНДР, RN Research Nurse Coordinator documented in this encounterBarnesville Hospital05-07-2025 NoteCardiac Electrophysiology Consultation Reason for Consult: Consideration of cardiac monitoring in the setting of chemotherapy/oxaliplatin Referring Merchandise Displayer/PCP: No ref. provider found HPI: Piper is [...] Jones MD, ScM, Msc Cardiac Electrophysiology Email: [email or web address] NoteHNO ID: [id number] Author: MAYLIN CONTE APRN.IRRIGATION EQUIPMENT INSTALLER Service: ? Author Type: Nurse Practitioner Type: Progress Notes Filed: 07/07/2024 09:33 Note Text: COLORECTAL SURGERY July 07, 2024 Piper Rodríguez 54 year old This consult was requested by Dr. Carias and my final recommendations will be communicated to the requesting health care provider by way of the shared medical record for internal providers or letter via the [employer] for external providers. Chief Complaint: [...] prescribed. -continue probiotics fo (more content not included)...[facility] 07-07-2024 History of Present illness Narrative* 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 APRN.IRRIGATION EQUIPMENT INSTALLER - 07/07/2024 9:04 AM EST COLORECTAL SURGERY July 07, 2024 Piper Rodríguez 54 year old This consult was requested by Dr. Carias and my final recommendations will be communicated to [facility] provider by way of the shared medical record for internal providers or letter via the [employer] for external providers. 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 Author Type: Nicker Type: Progress Notes Filed: 07/07/2024 09:33 Note Text: What is the reason for your visit today? Post op follow up for staple removal Who is your referring physician? Are you having poor oral intake? NO Have you had unintentional weight loss of 15 lbs/7 Kg in the last 3-6 months? YES Bowels: regular Wound: clean AND dry Temperature: No Drains: NoCMedina Hospital02-07-2025 Telephone encounter Note* Telephone Encounter - Maria Luisa Montes - 06/30/2024 11:31 AM EST All appointments on 07/12/24 have been canceled Maria Luisa Montes PSS [facility]02-07-2025 Miscellaneous Notes* Telephone Encounter - Maria Luisa Montes - 06/30/2024 11:31 AM EST All appointments on 07/12/24 have been canceled Maria Luisa Montes PSS * Telephone Encounter - Chelle Willis RN - 06/30/2024 10:23 AM EST Voicemail received from pt's stating pt will be going to [place] to see their oncologist, anddoesn't wish to follow up here. Please cancel appointments on 07/12. Call placed to to further assess. Message left requesting her to call our office back. Thanks Chelle Willis RN documented in this encounterBarnesville Hospital02-07-2025 Telephone encounter Note * Telephone Encounter - Chelle Willis RN - 06/30/2024 10:23 AM EST Voicemail received from pt's stating pt will be going to [place] to see their oncologist, anddoesn't wish to follow up here. Please cancel appointments on 07/12. Call placed to to further assess. Message left requesting her to call our office back. Thanks Chelle Willis RN [facility] Work Phone: 1(946) 769-959502-06-2025 Telephone encounter Note* Telephone Encounter - Chelle Willis RN - 06/29/2024 12:38 PM EST Pt will be in for education tomorrow. Please sign pending orders. Thanks Chelle Willis RN [facility]02-06-2025 Miscellaneous Notes* Telephone Encounter - Chelle Willis RN - 06/29/2024 12:38 PM EST Pt will be in for education tomorrow. Please sign pending orders. Thanks Chelle Willis RN documented in this encounterBarnesville Hospital02-06-2025 NoteHNO ID: [id number] Author: CAMRYN BEAULIEU, Research Coordinator Service: ? Author Type: Research Type: Progress Notes Filed: 06/29/2024 08:26 Note Text: Summary: [facility] Research Pre-Screening (IRB: NRG-GI008) Piper Rodríguez was reviewed for potential clinical trial enrollment on [facility] #NRG-GI008 by the [facility] on 06/29/24. Per initial review, patient has disease type Stage III CRC and appears to be preliminarily eligible and further testing/procedures required to determine final eligibility. Requesting green party notified. No Study tasks were completed as a result of this initial review. Gallito Brown CoordinatorLovering Colony State HospitalHtkcjizi60-08-4462 History of Present illness Narrative* Camryn Beaulieu Research Coordinator - 06/29/2024 8:14 AM ESTSummary: [facility] Research Pre-Screening (IRB: [id number]) Piper Rodríguez was reviewed for potential clinical trial enrollment on [facility] #NRG- GI008 by the Region[facility] on 06/29/24. Per initial review, patient has disease type Stage III CRC and appears to be preliminarily eligibleand further testing/procedures required to determine final eligibility. Requesting green party notified. No Study tasks were completed as a result of this initial review. Camryn Beaulieu Research Coordinator documented in this encounterBarnesville Hospital02-06-2025 NoteHNO ID: [id number] Author: MAYLIN CONTE APRN.IRRIGATION EQUIPMENT INSTALLER Service: ? Author Type: Nurse Practitioner Type: Progress Notes Filed: 06/29/2024 08:29 Note Text: [facility] Multidisciplinary GI Tumor Board Primary Disease: ascending colon cancer Oncologist: Dr. Bragg History: 54 year old male with ascending colon cancer now s/p a Laparoscopic Right Colectomy on 06/14/[address] aCrias. Imagin06/02/2024 CT CAP IMPRESSION: 1. No acute [...] negative for invasive carcinoma Clinical Pathologic Stage: [id number] stage IIIB Recommendations: MMR studies pending. Referral [...] risks and alternatives to the various treatment optionsThe Jewish Hospital02-05-2025 NoteGeneral Surgery Office/Clinic Note Chief Complaint consultation for port insertion HPI Staff 54 year old male presents on consultation from Dr. Esteves for port placement; now seeing Dr. Bragg at [facility]. Patient with metastatic colon adenocarcinoma. Right colectomy completed 06/14/24. History of Present Illness 54 yo male recently diagnosed with cecal adenocarcinoma, s/p LS right colectomy at [facility] 06/14/24, stage IIIb adenocarcinoma; had wound dehiscence requiring fascial closure 06/21/24; now seeing Dr. Bragg at [facility]; referred for port placement; no previous port [...] (C18.9: Malignant neoplasm of colon, unspecified) plan bkwscn-x-vsce insertion under anesthesia, informed consent obtained. Ancef [...] (COVID-19) mRNA-1273 vaccine 08/22/2020 Recorded 2024-04-17: TPV40 [facility] CenterComment on above:Result Comment: Electronically Signed By: FLORIDALMA PATEL, Jone Bell\Date and Time Signed: 06/28/24 16:11 EST 06-28-2024 Note* Addendum Note - Joseph Bragg MD - 06/28/2024 11:30 AM ESTAddended by: JOSEPH BRAGG on: 06/28/2024 11:30 AM Modules accepted: Orders [facility]02-05-2025 Miscellaneous Notes* Addendum Note - Joseph Bragg MD - 06/28/2024 11:30 AM ESTAddended by: JOSEPH BRAGG on: 06/28/2024 11:30 AM Modules accepted: Orders documented in this encounterBarnesville Hospital02-05-2025 Instructions* Patient Instructions* Joseph Bragg MD - 06/28/2024 11:13 AM EST Ordered port placement Chemo teach for FOLFOX F/u in 2 weeks documented in this encounterBarnesville Hospital02-05-2025 History of Present illness Narrative* Joseph Bragg MD - 06/28/2024 11:00 AM EST Images from the original note were not included. PATIENT NAME: Piper Rodríguez CLINIC NO.: [id number] ATTENDING PHYSICIAN: Joseph Bragg MD DATE OF SERVICE: June 28, [address] Donis Carias [id number] [facility] [id number] thank you for referring Piper Rodríguez for [...] Range Status 06/23/2024 12.7 % Final Abs Hayes Date Value Ref Range Status 06/23/2024 0.84 [...] in [address]. [address] Donis Carias [address] [address] [facility] [address] thank you for allowing me to participate in Piper Rodríguez care, if there are any questions or concerns please do not hesitate to contact me at the number below. I spent a total of 60 minutes on the date of the service which included preparing to see the patient, [id number] patient care, completing clinical documentation, obtaining and/or reviewing separately obtained history, performing a medically appropriate examination, counseling and educating the pat ient/family/caregiver, ordering medications, tests, or procedures, communicating with other HCPs (not separately reported), independently interpreting results (not separately reported), communicatingresults to the patient/family/caregiver, and care coordination (not separately reported). Joseph Bragg MD. Hematology/Medical Oncology [facility] [phone] CC: documented in this encounterBarnesville Hospital02-05-2025 NoteHNO ID: [id number] Author: JOSEPH BRAGG MD Service: ? Author Type: Physician Type: Progress Notes Filed: 06/28/2024 11:29 Note Text: PATIENT NAME: Piper Rodríguez [facility] NO.: [id number] ATTENDING PHYSICIAN: Joseph Bragg MD DATE OF SERVICE: June 28, [address] Donis Carias [address] [address] [facility] [address] thank you for referring Piper Rodríguez for [...] pT3 pN1b. [employer] Pending Works in a [employer]. Grand mother has colon cancer. No smoking. [...] No palpable breast johnny (more content not included)...[facility]01-31-2025 NoteHNO ID: [id number] Author: ELAYNE GONZALEZ LSW Service: Care Management Author Type: Cane Flume Chute Operator Type: Care Mgt Initial Assessment Filed: 06/23/2024 10:12 Note Text: Summary: High Risk Readmission CARE MANAGEMENT: ASSESSMENT AND DISCHARGE PLAN SERVICE DATE: June 23, 2024 SERVICE TIME: 9:30 PCP: Gen Peña MD Primary Contact: Extended Emergency Contact Information Primary Emergency Contact: Lisa Rodríguez Address: [address] [place] [address] Mobile Relation: Spouse Preferred language: PERUVIAN Nematologist needed? No Admission Status: Inpatient Insurance Provider: O [facility] Discharge Planning requested by: Per Department Practice Potential Transition Plans No Services Indicated Advance Directives Current Advance Directive: None Film Casting Operator Attempted to Assist with AD Completion: Yes Action: Education Provided Current Living Arrangements and Support Lives with: Spouse/significant other Type of Residence: Private Residence (House) Support: Spouse/significant other How do you manage to accomplish the following: Independent: Ambulation;Transportation to appointments/community;Bathe/Shower;Dress;Meals/Meal Prep;Going to the bathroom;Medication Management Current Services/Equipment Current Post-Acute Service(s): None Discharge Planning Patient Goal(s): General wellness [place] Choice Explained: [place] of Choice Given: No Reason Not Given: [...] : No HCPOA paperwok on file within [email or web address] and verified to be current as of date/time of this note Legal Next of Kin Hierarchy per [place] Revised Code: Legal Spouse Lisa [phone] Majority of Adult Children (consensus if possible) Parents Majority of Adult Siblings (consensus if possible) Nearest Blood Relative REID Prabhakar June 23, 2024 HIGH RISK READMISSION NOTE: HAS PATIENT BEEN READMITTED WITHIN THE PAST 7 DAYS?: yes 30-DAY READMISSION RISK (%) of 40 OR ABOVE?: no READMISSION SCORE: unknown SDDE QUESTIONS REVIEWED WITH PATIENT?: yes DATE OF [...] Rodríguez DATE: June 23, 2024 TIME: 10:08 [facility]01-31-2025 NoteHNO ID: [id number] Author: DONIS CARIAS MD Service: Colorectal Author Type: Physician Type: Progress Notes Filed: 06/23/2024 13:40 Note Text: Documentation Query Please specify a diagnosis associated with the Clinical Indicators for this patient Obesity class 2 This document will become part of the patient's medical record.[facility] 06-22-2024 NoteHNO ID: [id number] Author: MARY WORRELL, RN Service: Nursing Author Type: Registered Nurse Type: Nursing Progress Note Filed: 06/22/2024 15:45 Note Text: 1545 [facility]Gykoefao59-[facility]-2667 NoteHNO ID: [id number] Author: LASHONDA DELGADO MD Service: Colorectal Author Type: Resident Type: Progress Notes Filed: 06/22/2024 08:11 Note Text: COLORECTAL SURGERY PROGRESS NOTE Piper O Juan [id number] Patient Active Hospital Problem List: Perioperative dehiscence [...] and Airways Line Duration Peripheral 06/21/24 1500 [facility] Short Left Forearm 20 Gauge [...] Delgado MD General Surgery, PGY2 Please contact [phone] during the days for any questions. For nights and weekends, please contact [phone].[facility] HospitalTlqldbdi92-15-2600 NoteHNO ID: [id number] Author: JULIOCESAR ENRIQUE APRN.HAND TOUCH UP PAINTER Service: Anesthesiology Author Type: Nurse Boot And Shoe Repairman Type: Anesthesia Procedure Notes Filed: 06/21/2024 16:11 Note Text: ANESTHESIOLOGY PROCEDURE NOTE Airway General Information Procedure Start Time/Medication Administration: 06/21/2024 3:58 PM Procedure End Time: 06/21/2024 3:58 PM Patient location during procedure: OR Timeout Performed Pre-procedure: timeout performed Consent Obtained: Yes 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, care steam plant records clerk and patient Staffing HAND TOUCH UP PAINTER: Juliocesar Enrique APRN.HAND TOUCH UP PAINTER Performed by: HAND TOUCH UP PAINTER Indications and Patient Condition Indications for airway management: anesthesia and airway protection Preoxygenated: yes anesthesia circuit Patient position: sniffing Method: rapid sequence Cricoid Pressure: Yes Manual In-Line Stabilization: No Difficult mask ventilation: n/a. Final Airway Details Final airway type: endotracheal airway Final Endotracheal Airway: ETT Cuffed: yes Successful intubation technique: video laryngoscopy Devices used: mon.ki Endotracheal tube insertion site: oral Blade: Zeenat [...] June 21, 2024 TIME: 4:10 PM CSN: [id number] Telephone encounter Note * Telephone Encounter - [...] for his appointment tomorrow vs going to [place] ED. Ultimately, he thinks he will go to [place] [facility]. [facility]01-29-20[facility] Miscellaneous Notes* Telephone Encounter - Jocelyn Cantrell [...] for his appointment tomorrow vs going to [place] ED. Ultimately, he thinks he will go to [place] ED. documented in this encounterBarnesville Hospital01-28-2025 Telephone encounter Note * Telephone Encounter - Jocelyn Cantrell RN - 06/20/2024 3:15 PM EST Returned call. Spoke with his . She said they went to their local ED. It was his bigger incision that opened. The ED doctor was asking them for Dr. Carias's contact information so he can communicate with her. Provided info to physician [facility]01-28-2025 Miscellaneous Notes* Telephone Encounter - Jocelyn Cantrell [...] they should go to local ER CB# [phone] documented in this encounterBarnesville Hospital01-28-2025 Telephone encounter Note * Telephone Encounter - Maura Casiano - 06/20/2024 3:02 PM EST Patient calling concerned about surgical incision. She states it has opened up. Asking to speak to nurse to find out if they should go to local ER CB# [phone] [facility]01-27-2025 Telephone encounter Note* Telephone Encounter - Jocelyn Cantrell RN - 06/19/2024 1:47 PM EST Returned call. He would like to be able to return to the office for a few hours every other day. Heasked for a note to allow him to do this. His job does not require any physical activity. Note sent through My Chart. [facility]01-27-2025 Miscellaneous Notes* Telephone Encounter - Jocelyn Cantrell [...] and what hecan and cannot do CB# [phone] documented in this encounterBarnesville Hospital01-27-2025 Telephone encounter Note * Telephone Encounter - Maura Casiano - 06/19/2024 1:27 PM EST Patient had surgery on 06/14/24. He is asking to speak to a nurse about his restrictions and what hecan and cannot do CB# [phone] [facility]01-24-2025 NoteHNO ID: [id number] Author: DONIS CARIAS MD Service: Colorectal Author [...] will become part of the patient's medical record.[facility] 06-16-2024 NoteHNO ID: [id number] Author: DAVON WATSON MD Service: Colorectal Author [...] PGY-6 Colorectal Surgery Resident Blue Team Pager: [phone] General Surgery Colorectal Surgery On-Call Pager: [phone](Weekends, Weekdays 6PM-6AM)` SUBJECTIVE: No acute issues overnight. [...] 0659 06/16/24 07 - 06/17/24 0659 Shift [id number] 4499-7225 24 Hour Total [id number] 7429-7438 [id number] 24 Hour Total INTAKE Shift Total OUTPUT [...] CREAT 1.25* BUN 19 GLUC 105* CA 8.9[facility] HospitalQfftzarb45-91-5674 NoteHNO ID: [id number] Author: GELY AKINS RN Service: Care Management Author Type: Registered Nurse Type: Care Mgt Initial Assessment Filed: 06/15/2024 11:22 Note Text: CARE MANAGEMENT: ASSESSMENT AND DISCHARGE PLAN SERVICE DATE: June 15, 2024 SERVICE TIME: 11:00am PCP: Gen Peña MD Primary Contact: Extended Emergency Contact Information Primary Emergency Contact: Lisa Rodríguez Address: [address] [place] [address] [facility] Mobile Relation: Spouse Preferred language: [place] Nematologist needed? No Admission Status: Inpatient Insurance Provider: [employer] PPO Discharge Planning requested by: Per Department Practice Potential Transition Plans Home Advance Directives Current Advance Directive: None Film Casting Operator Attempted to Assist with AD Completion: [...] home, Independent living, Be able to drive [place] Explained: [place] of Choice Given: No Reason Not Given: [...] soon. Pt lives with spouse. 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 Pt reports he has good support system. Denies needs. No skilled needs identified. Spouse will transport home at discharge. CM remains available if needs arise. SIGNATURE: Gely Akins RN PATIENT NAME: Piper Rodríguez DATE: June 15, 2024 TIME: 11:20 [facility]01-23-2025 NoteHNO ID: [id number] Author: LASHONDA DELGADO MD Service: Colorectal Author [...] 06/15/2024 COLORECTAL SURGERY PROGRESS NOTE Piper Rodríguez [id number] Patient Active Hospital Problem List: Malignant neoplasm [...] and Airways Line Duration Peripheral 06/14/24 0816 [facility] Left Antecubital 20 Gauge 1 [...] Delgado MD General Surgery, PGY2 Please contact [phone] during the days for any questions. For nights and weekends, please contact [phone].[facility] HospitalPekvbolw93-27-7449 NoteHNO ID: [id number] Author: ANNABEL THACKER APRN.HAND TOUCH UP PAINTER Service: Nursing Author Type: Nurse Boot And Shoe Repairman Type: Anesthesia Procedure Notes Filed: 06/14/2024 09:22 Note Text: ANESTHESIOLOGY PROCEDURE NOTE PIV General Information Procedure Start Time/Medication Administration: 06/14/2024 9:02 AM Procedure End Time: 06/14/2024 9:02 AM Patient Location: OR Staffing HAND TOUCH UP PAINTER: Annabel Thacker APRN.HAND TOUCH UP PAINTER Performed by: EVIN Preparation Sterility Preparation: hand hygiene performed prior to procedure, surgical cap used, mask used, skin prep agent completely dried prior to procedure Site Prep: chlorhexidine Procedure Details Indication: need for IV access Needle Size/Type: 20 gauge angiocath Orientation: Right Location: Hand Imaging Guidance Used: No SIGNATURE: Annabel Thacker APRN.CRNA PATIENT NAME: Piper Rodríguez DATE: June 14, 2024 TIME: 9:20 AM CSN: [id number] NoteHNO ID: [id number] Author: ANNABEL THACKER APRN.CRNA Service: Nursing Author Type: Nurse Boot And Shoe Repairman Type: Anesthesia Procedure Notes Filed: 06/14/2024 09:20 Note Text: ANESTHESIOLOGY PROCEDURE NOTE Airway General Information Procedure Start Time/Medication Administration: 06/14/2024 8:59 AM Procedure End Time: 06/14/2024 8:59 AM Patient location during procedure: OR 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, care steam plant records clerk and patient Staffing Anesthesiologist: Ila Mortensen MD HAND TOUCH UP PAINTER: Annabel Thacker APRN.HAND TOUCH UP PAINTER Performed by: EVIN Indications and Patient Condition [...] June 14, 2024 TIME: 9:19 AM CSN: [id number] Instructions* Patient Instructions* Aubrey Baer PA-C - 06/08/2024 8:55 AM EST PATIENT PREOPERATIVE INSTRUCTIONS Donis Carias MD has scheduled you for your procedure at this surgery center: [facility]: [phone] --[address] [address]. Please check in on the1st floor at [...] Procedures: - YOU MUST HAVE A RESPONSIBLE UNDERWRITING MANAGER TAKE YOU HOME. A REAL ESTATE MANAGEMENT SPECIALIST OR DATA MODELING SPECIALIST CANNOT BE MADE A RESPONSIBLE UNDERWRITING MANAGER. - We recommend that a responsible [...] Advance Directive, please fax a copy to [phone] or email to for it to be [...] your chart that day documented in this encounterBarnesville Hospital01-16-2025 History and physical note * Aubrey Baer [...] 5 (+SHERIE, unable to tolerate CPAP ) [id number] Score: Age: <65 Sex: male CHF history: No Hypertension history: Yes Stroke/TIA/thromboembolism history: No Vascular disease history: No Diabetes history: No [id number] Score: 1 ARISCAT Score: Age: 51-80 Preoperative [...] fevers. Neuro: No history of TIA's, stroke, LIQUID FLAVOR COMPOUNDER tumor, impaired sensorium, hemiplegia, paraplegia or [...] PAST SURGICAL HISTORY OF 04/2024 colonoscopy (2019) History reviewed. No pertinent family history. Social [...] Piper Rodríguez DATE: 06/08/2024 TIME: 9:18 AM [facility]01-16-2025 History and physical note* Aubrey Baer PA-C [...] 5 (+SHERIE, unable to tolerate CPAP ) [id number] Score: Age: <65 Sex: male CHF history: No Hypertension history: Yes Stroke/TIA/thromboembolism history: No Vascular disease history: No Diabetes history: No [id number] Score: 1 ARISCAT Score: Age: 51-80 Preoperative [...] fevers. Neuro: No history of TIA's, stroke, LIQUID FLAVOR COMPOUNDER tumor, impaired sensorium, hemiplegia, paraplegia or [...] 06/08/2024 TIME: 9:18 AM documented in this encounterBarnesville Hospital01-13-2025 Telephone encounter Note * Telephone Encounter - Donis Carias MD - 06/05/2024 12:[address] CAP reviewed with patient- no mets and will proceed with surgery as scheduled. Advised lifestylechanges for fatty liver and to follow up with PCP [facility]01-13-2025 Miscellaneous Notes* Telephone Encounter - Donis Carias MD - 06/05/2024 12:[address] CAP reviewed with patient- no mets and will proceed with surgery as scheduled. Advised lifestylechanges for fatty liver and to follow up with PCP documented in this encounterBarnesville Hospital01-10-2025 History of Present illness Narrative* Evens Nelson [...] PATIENT PRESENTS WITH AN IMPLANTABLE OR ATTACHED MEAT SEAFOOD ASSOCIATE: No RADIOLOGY DEPARTMENT: CT; Exam(s) Completed: Chest Abdomen Pelvis PERIPHERAL IV DATA: Site assessment: Clean,Dry and Intact, Site disposition Discontinued SIGNED BY: RT Rhys(R) June 02, 2024 9:36 AM documented in this encounterBarnesville Hospital01-10-2025 NoteHNO ID: [id number] Author: EVENS NELSON RT(R) Service: Radiology Author [...] PATIENT PRESENTS WITH AN IMPLANTABLE OR ATTACHED MEAT SEAFOOD ASSOCIATE: No RADIOLOGY DEPARTMENT: CT; Exam(s) Completed: Chest Abdomen Pelvis PERIPHERAL IV DATA: Site assessment: Clean,Dry and Intact, Site disposition Discontinued SIGNED BY: RT Rhys(R) June 02, 2024 9:36 [facility]01-10-2025 Nurse Note* Abilio Tang RN - [...] DATE: June 02, 2024 TIME: 8:53 AM [facility]01-10-2025 Nurse Note* Abilio Tang RN - [...] 2024 TIME: 8:53 AM documented in this encounterBarnesville Hospital01-09-2025 Telephone encounter Note * Telephone Encounter - Jocelyn Cantrell RN - 06/01/2024 11:00 AM EST Spoke with patient. He was under the impression he could get his CT done in [place] and could havethe images sent to Dr. Carias. We had a long discussion about the process to make that happen andmy concerns that it would not be done in time to continue with his surgery on 06/14. He was agreeable to reschedule his CT at [place] on 06/02/24. He will get his lab work done tomorrow prior to his CT. [facility]01-09-2025 Miscellaneous Notes* Telephone Encounter - Jocelyn Cantrell RN - 06/01/2024 11:00 AM EST Spoke with patient. He was under the impression he could get his CT done in [place] and could havethe images sent to Dr. Carias. We had a long discussion about the process to make that happen andmy concerns that it would not be done in time to continue with his surgery on 06/14. He was agreeable to reschedule his CT at [place] on 06/02/24. He will get his lab work done tomorrow prior to his CT. * Telephone Encounter - Be Cloud - 06/01/2024 10:04 AM EST 06/01 Patient called, stated that he wanted to cancel CT that was for 06/02 due to distance to appointment. Stated [facility]. Was wondering if able to go to [place] for CT? documented in this encounterBarnesville Hospital01-09-2025 Telephone encounter Note * Telephone Encounter - Be Cloud - 06/01/2024 10:04 AM EST 06/01 Patient called, stated that he wanted to cancel CT that was for 06/02 due to distance to appointment. Stated that [facility] Was wondering if able to go to [place] for CT? [facility]01-02-2025 History of Present illness Narrative* Donis Carias MD - 05/25/2024 11:20 AM EST COLORECTAL SURGERY CLINIC NOTE May 25, 2024 Piper Rodríguez 54 year old This consult was requested by Dr. Hedrick and my final recommendations will be communicated to the requesting health care provider by way of the shared medical record for internal providers or letter via the [employer] [place] [employer] for external providers. Chief [...] mass Colonoscopy 05/10/24 - Dr. Hedrick @ [facility] Scan on 05/16/2024 9:34 AM by Norma Magallanes: Seth Castro operative note (path pending) [id number] Pathology Scan on 05/22/2024 8:26 AM by Be Cloud: [facility] Report 05/11/24 COLON, Biopsy, Cecum: COLONIC TISSUE WITH INVASIVE ADENOCARCINOMA, MODERATELY DIFFERENTIATED, ULCERATION NOTED 2. COLON, Biopsy, Sigmoid: LARGE TUBULAR ADENOMA (>1 CM), NEGATIVE FOR HIGH GRADE DYSPLASIA, AREAS SHOWING CAUTERY ARTIFACTARE POSITIVE FOR ADENOMATOUS GLANDS 3. COLON, Biopsy, Descending: TUBULAR ADENOMA. NEGATIVE FOR HIGH GRADE DYSPLASIA Colonoscopy 06/03/2018 - Dr Hedrick @ [facility] Scan on 05/15/2024 9:54 AM by Be [...] Carias MD Colorectal Surgery documented in this encounterBarnesville Hospital01-02-2025 NoteHNO ID: [id number] Author: DONIS CARIAS MD Service: ? Author Type: Physician Type: Progress Notes Filed: 05/25/2024 12:48 Note Text: COLORECTAL SURGERY CLINIC NOTE May 25, 2024 Piper Rodríguez 54 year old This consult was requested by Dr. Hedrick and my final recommendations will be communicated to the requesting health care provider by way of the shared medical record for internal providers or letter via the [place] [employer] Service for external providers. Chief Complaint: [...] mass Colonoscopy 05/10/24 - Dr. Hedrick @ [facility] Scan on 05/16/2024 9:34 AM by Nomra Magallanes: Seth Castro operative note (path pending) [id number] Pathology Scan on 05/22/2024 8:26 AM by Be Cloud: [facility] Pathology Report 05/11/24 COLON, Biopsy, Cecum: [...] mets or locally advanced, (more content not included)...[facility]12-03-2024 NoteGeneral Surgery Office/Clinic Note Chief Complaint [...] Tabacco Tobacco Use:. Smokele (more content not included)...[facility] CenterComment on above:Result Comment: Electronically Signed By: FLORIDALMA PATEL, Jone Bell\Date and Time Signed: 04/25/24 10:59 ESTEvaluation + Plan note No data available for this section [facility] General Surgery [place] Evaluation noteNo assessment information available [facility] Work Phone: Evaluation note* Diagnosis Malignant neoplasm of ascending colon (HCC)- Primary Malignant neoplasm of ascending colon documented in this encounter [facility]* Diagnosis Malignant neoplasm of ascending colon (HCC) Malignant neoplasm of ascending colon Malignant neoplasm of ascending colon (HCC) Malignant neoplasm of ascending colon documented in this encounter [facility]* Diagnosis Pre-op evaluation- Primary Preoperative examination, [...] Assessment: BMI 38.78 documented in this encounter [facility] note* Diagnosis Pre-op evaluation- Primary Preoperative examination, unspecified BMI 38.0-38.9,adult Body Mass Index 38.0-38.9, adult Smokeless tobacco use Tobacco use disorder SHERIE (obstructive sleep apnea) Obstructive sleep apnea (adult) (pediatric) Malignant neoplasm of ascending colon (HCC)- Primary Malignant neoplasm of ascending colon documented in this encounter [facility] note* Diagnosis Pre-op evaluation- Primary Preoperative examination, unspecified BMI 38.0-38.9,adult Body Mass Index 38.0-38.9, adult Smokeless tobacco use Tobacco use disorder SHERIE (obstructive sleep apnea) Obstructive sleep apnea (adult) (pediatric) Malignant neoplasm of ascending colon (HCC) Malignant neoplasm of ascending colon documented in this encounter [facility] note* Diagnosis Pre-op evaluation- Primary Preoperative examination, unspecified BMI 38.0-38.9,adult Body Mass Index 38.0-38.9, adult Smokeless tobacco use Tobacco use disorder SHERIE (obstructive sleep apnea) Obstructive sleep apnea (adult) (pediatric) Malignant neoplasm of ascending colon (HCC)- Primary Malignant neoplasm of ascending colon documented in this encounter [facility] note* Diagnosis Pre-op evaluation- Primary Preoperative examination, unspecified BMI 38.0-38.9,adult Body Mass Index 38.0-38.9, adult Smokeless tobacco use Tobacco use disorder SHERIE (obstructive sleep apnea) Obstructive sleep apnea (adult) (pediatric) Follow-up examination after colorectal surgery- Primary Follow-up examination, following other surgery Encounter for staple removal Encounter for removal of sutures documented in this encounter [facility] note* Diagnosis Pre-op evaluation- Primary Preoperative examination, unspecified BMI 38.0-38.9,adult Body Mass Index 38.0-38.9, adult Smokeless tobacco use Tobacco use disorder SHERIE (obstructive sleep apnea) Obstructive sleep apnea (adult) (pediatric) Follow-up examination after colorectal surgery- Primary Follow-up examination, following other surgery History of colon cancer Personal history of malignant neoplasm of large intestine documented in this encounter [facility] note* Diagnosis Pre-op evaluation- Primary Preoperative examination, unspecified BMI 38.0-38.9,adult Body Mass Index 38.0-38.9, adult Smokeless tobacco use Tobacco use disorder SHERIE (obstructive sleep apnea) Obstructive sleep apnea (adult) (pediatric) Incisional hernia, without obstruction or gangrene- Primary Incisional hernia without mention of obstruction or gangrene documented in this encounter [facility] Discharge instructions No data available for this section [facility] General Surgery [place] Progress note No data available for this section [facility] General Surgery [place] Reason for referral (narrative)* Outpatient Procedure (Routine) - New RequestSpecialtyDiagnoses / ProceduresReferred By Contact Referred [facility] Diagnoses Pre-op evaluation Procedures ECG COMPLETE ECG ROUTINE ECG W/LEAST 12 LDS W/I&R Aubrey Baer PA-C [address] [address] [facility] [address] [place] [address] Referral IDStatusReasonStart DateExpiration DateVisits RequestedVisits [id number] Request Auto-Generated Referral / GE [facility] for referral (narrative)No reason for referral information availableProvidence Hospital Work Phone: Summary Purpose Family History [...] No Family History Records Found Advance Directives No Advanced Directives Records Found Advance Directive Response Recorded Date/ Time Advance Directives No September 13 12:27pm Reason for Referral SpecialtyDiagnoses / ProceduresReferred By ContactReferred To ContactOncology Diagnoses Malignant neoplasm of ascending colon (HCC) Procedures CONSULT TO ONCOLOGY OFFICE/OUTPATIENT NEW HIGH MDM 60 [place] [address] [place] [address] Referral IDStatusReasonStart DateExpiration DateVisits RequestedVisits [id number] PCP Requested Referral [id number] / ProceduresReferred By ContactReferred To ContactCT IMAGING Diagnoses Malignant neoplasm of ascending colon (HCC) Procedures CT CHEST W IVCON DIAGNOSTIC COMPUTED TOMOGRAPHY THORAX W/[place] [address] [place] [address] Ct Imaging [place] [address] Referral IDStatusReasonStart DateExpiration DateVisits RequestedVisits [id number] Auto-Generated Referral /[id number] / ProceduresReferred By ContactReferred To ContactCT IMAGING Diagnoses Malignant neoplasm of ascending colon (HCC) Procedures CT ABD/PEL W IVCON CT ABD & PEL[place] W/[place] [address] [place] [address] Ct [facility] [place] [address] Referral IDStatusReasonStart DateExpiration DateVisits RequestedVisits [id number] Auto-Generated Referral Chief Complaint and Reason for Visit Chief [...] section and content) DATE CREATED AUTHOR 07/18/2022 [facility] DATE CREATED AUTHOR AUTHOR'S ORGANIZ ATION 07/01/2024 [facility] DATE CREATED AUTHOR AUTHOR'S ORGANIZ ATION 10/03/[address] [facility] DATE CREATED AUTHOR AUTHOR'S ORGANIZ ATION 01/13/2025 [facility] DATE CREATED AUTHOR AUTHOR'S ORGANIZ ATION 03/16/2025 [facility] DATE CREATED AUTHOR AUTHOR'S ORGANIZ ATION 03/29/2025 [facility] Care Teams (unrecognized sec tion and content) Team Status: Inactive Member Role Status Dates Gen Peña MD Attending Provider Active Sta rt: August 02, 2023 End: August 02, 2023 Team Status: Inactive Member Role Status Dates Kisha Esteves MD Attending Provider Active St art: September 13, 2023 End: September 13, 2023Team MemberRelationshipSpecialtyStart DateEnd Date Gen Peña MD [address] [place] [address] PCP - GeneralFamily Ihgrjxms87/23/24 Jone Hedrick MD [address] [facility] [facility] [place] [id number] General Rvsoacm29/23/24Team MemberRelationshipSpecialtyStart DateEnd Date Gen Peña MD [address] [place] [address] PCP - GeneralFamily Envnnaee81/23/24 Jone Hedrick MD [address] [address] General Ypjoicj61/23/24Team MemberRelationshipSpecialtyStart DateEnd Date [place] Peña [place] [address] [place] [address] PCP - GeneralFamily Yugvxqwl65/23/24 Jone Hedrick MD [address] [place] [address] General Wtjserl46/23/24Team MemberRelationshipSpecialtyStart DateEnd Gen Peña MD [address] [place] [address] PCP - GeneralFamily Rgsmbkkl93/23/24 Jone Hedrick MD [address] [place] [address] General Lopicay90/23/24Team MemberRelationshipSpecialtyStart End Gen Peña MD [facility] [place] [address] PCP - GeneralFamily Rbtesuuq48/23/24 Jone Hedrick MD [address] [place] [address] General Ujdargy78/23/24Team MemberRelationshipSpecialtyStart End Gen Peña MD [address] [place] [address] PCP - GeneralFamily Tcfcnioc65/23/24 Jone Hedrick MD [address] [place] [address] General Ecqgjqd64/23/24Team MemberRelationshipSpecialtyStart End Gen Peña MD [address] [place] [address] PCP - GeneralFamily Qwftegpc13/23/24 Jone Hedrick MD [address] [place] [address] General Lnvkzql06/23/24Team MemberRelationshipSpecialtyStart DateEnd Date Gen Peña MD [address] [place] [address] PCP - GeneralFamily Kvxloesy53/23/24 Jone Hedrick MD [address] [place] [address] General Soxupyu13/23/24Team MemberRelationshipSpecialtyStart DateEnd Date Gen Peña MD [address] [place] [address] PCP - GeneralFamily Wmxdocrc89/23/24 Jone Hedrick MD [address] [place] [address] General Qvrqwhn65/23/24Team MemberRelationshipSpecialtyStart DateEnd Date Gen Peña MD [address] [place] [address] PCP - GeneralFamily Wngsibmy71/23/24 Jone Hedrick MD [address] [place] [address] General Puabjvs00/23/24Team MemberRelationshipSpecialtyStart DateEnd Date Gen Peña MD [address] [place] [facility] [address] PCP - GeneralFamily Mnyohrtk55/23/24 Jone Hedrick MD [address] [place] [address] General Blrhbdr12/23/24Team MemberRelationshipSpecialtyStart Date[facility] Gen Peña MD [address] [place] [address] PCP - GeneralFamily Ikiumjeo08/23/24 Jone Hedrick MD [address] [place] [address] General Yxvjtbs25/23/24 Chelle Willis RN [address] [facility] [place] [address] Specialty Care CoordinatorHematology/Oncology06/29/24 Joseph Bragg MD [address] [facility] [place] [address] PhysicianHematology/Oncology06/29/24Team MemberRelationshipSpecialtyStart [facility] Gen Peña MD [address] [place] [address] PCP - GeneralFamily Fkinipjx27/23/24 Jone Hedrick MD [address] [place] [address] General Hgtofyp14/23/24 Chelle Willis RN [address] [facility] [place] [address] Specialty Care CoordinatorHematology/Oncology06/29/24 Joseph Bragg MD [address] [place] [address] PhysicianHematology/Oncology2Team MemberRelationshipSpecialtyStart End Gen Peña MD [address] [place] [address] [facility] - [facility] Xcwegxtd71/23/24 Jone Hedrick MD [address] [place] [address] General Nkklrou45/23/24 Chelle Willis RN [address] [facility] [place] [address] Specialty Care CoordinatorHematology/Oncology06/29/24 Joseph Bragg MD [address] [place] [address] PhysicianHematology/Oncology06/29/24Team MemberRelationshipSpecialtyStart End Gen Peña MD [address] [place] [id number] PCP - [facility] Bkogkupk19/23/24 Jone Hedrick MD [address] [place] [address] General Pbenjau09/23/24 Chelle Willis RN [address] [place] [address] Specialty Care CoordinatorHematology/Oncology06/29/24 Joseph Bragg MD [address] [place] [address] PhysicianHematology/Oncology06/29/24Te MemberRelationshipSpecialtyStart [facility] Gen Peña MD [address] [place] [address] PCP - GeneralFamily Dawbimtv34/23/24 Jone Hedrick MD [address] [place] [address] General Vluamft32/23/24 Chelle Willis RN [address] [facility] [place] [address] Specialty Care CoordinatorHematology/Oncology06/29/24 Joseph Bragg MD [address] [facility] [place] [address] PhysicianHematology/Oncology06/29/24Te MemberRelationshipSpecialtyStart [facility] Gen Peña MD [address] [place] [address] PCP - GeneralFamily Dategctk89/23/24 Jone Hedrick MD [address] [place] [address] General Fvjacqk67/23/24 Chelle Willis RN [address] [facility] [place] [address] Specialty Care CoordinatorHematology/Oncology06/29/24 Joseph Bragg MD [address] [facility] [place] [address] PhysicianHematology/Oncology06/29/24Team MemberRelationshipSpecialtyStart DateEnd Date Gen Peña MD [address] [place] [address] PCP - GeneralFamily Bwrefpuh76/23/24 Jone Hedrick MD [address] [facility] [address] [place] [address] General Zgpqfcb36/23/24 Chelle Willis RN [address] [place] [address] Specialty Care CoordinatorHematology/Oncology06/29/24 Joseph Bragg MD [address] [place] [place] [address] PhysicianHematology/Oncology06/29/24 Team Status: Active Member Role Status [...] February 21, 2025 End: February 21, 2025 Team Status: Inactive Member Role/Relationship Status Dates Luna Sierra APRN Attending Provider Active S tart: January 30, 2025 End: January 30, 2025NON STAFFPrimary Care ProviderActiveStart: January 30, 2025 End: January 30, 2025 Team Status: Inactive Member Role/Relationship Status Dates Devan Franklin MD Attending Provider Active St art: February 02, 2025 End: February 02, 2025 Team Status: Inactive Member Role/Relationship Status Dates Kisha Esteves MD Attending Provider Active St art: February 20, 2025 End: February 20, 2025 Team Status: Inactive Member Role/Relationship Status Dates Devan Franklin MD Attending Provider Active St art: February 21, 2025 End: February 21, 2025 Team Status: Inactive Member Role/Relationship Status Dates Jone Hedrick MD [facility] Attending Provider Active Start: March 14, 2025 End: March 14, 2025 Goals (unrecognized section and content) Goals [...] may be documented in an alternate section No data available for this section Source Comments (unrecognize d section and content) In the event this informatio n is protected by the Federal Confidentiality of Alcohol and Drug Abuse Patient Records regulations: The Federal rules restrict any use of the information to criminally investigate or prosecute any alcohol or drug abuse patient.[facility] HospitalIn the event this information is protected by the Federal Confidentiality of Alcohol and Drug Abuse Patient Records regulations: The Federal rules restrict any use of the information to criminally investigate or prosecute any alcohol or drug abuse patient.[facility] HospitalIn the event this information is protected by the Federal Confidentiality of Alcohol and Drug Abuse Patient Records regulations: The Federal rules restrict any use of the information to criminally investigate or prosecute any alcohol or drug abuse patient.[facility] HospitalIn the event this information is protected by the Federal Confidentiality of Alcohol and Drug Abuse Patient Records regulations: The Federal rules restrict any use of the information to criminally investigate or prosecute any alcohol or drug abuse patient.[facility] HospitalIn the event this information is protected by the Federal Confidentiality of Alcohol and Drug Abuse Patient Records regulations: The Federal rules restrict any use of the information to criminally investigate or prosecute any alcohol or drug abuse patient.[facility] HospitalIn the event this information is protected by the Federal Confidentiality of Alcohol and Drug Abuse Patient Records regulations: The Federal rules restrict any use of the information to criminally investigate or prosecute any alcohol or drug abuse patient.[facility] HospitalIn the event this information is protected by the Federal Confidentiality of Alcohol and Drug Abuse Patient Records regulations: The Federal rules restrict any use of the information to criminally investigate or prosecute any alcohol or drug abuse patient.[facility] HospitalIn the event this information is protected by the Federal Confidentiality of Alcohol and Drug Abuse Patient Records regulations: The Federal rules restrict any use of the information to criminally investigate or prosecute any alcohol or drug abuse patient.[facility] HospitalIn the event this information is protected by the Federal Confidentiality of Alcohol and Drug Abuse Patient Records regulations: The Federal rules restrict any use of the information to criminally investigate or prosecute any alcohol or drug abuse patient.[facility] HospitalIn the event this information is protected by the Federal Confidentiality of Alcohol and Drug Abuse Patient Records regulations: The Federal rules restrict any use of the information to criminally investigate or prosecute any alcohol or drug abuse patient.[facility] HospitalIn the event this information is protected by the Federal Confidentiality of Alcohol and Drug Abuse Patient Records regulations: The Federal rules restrict any use of the information to criminally investigate or prosecute any alcohol or drug abuse patient.[facility] HospitalIn the event this information is protected by the Federal Confidentiality of Alcohol and Drug Abuse Patient Records regulations: The Federal rules restrict any use of the information to criminally investigate or prosecute any alcohol or drug abuse patient.[facility] HospitalIn the event this information is protected by the Federal Confidentiality of Alcohol and Drug Abuse Patient Records regulations: The Federal rules restrict any use of the information to criminally investigate or prosecute any alcohol or drug abuse patient.[facility] HospitalIn the event this information is protected by the Federal Confidentiality of Alcohol and Drug Abuse Patient Records regulations: The Federal rules restrict any use of the information to criminally investigate or prosecute any alcohol or drug abuse patient.[facility] HospitalIn the event this information is protected by the Federal Confidentiality of Alcohol and Drug Abuse Patient Records regulations: The Federal rules restrict any use of the information to criminally investigate or prosecute any alcohol or drug abuse patient.[facility] HospitalIn the event this information is protected by the Federal Confidentiality of Alcohol and Drug Abuse Patient Records regulations: The Federal rules restrict any use of the information to criminally investigate or prosecute any alcohol or drug abuse patient.[facility] HospitalIn the event this information is protected by the Federal Confidentiality of Alcohol and Drug Abuse Patient Records regulations: The Federal rules restrict any use of the information to criminally investigate or prosecute any alcohol or drug abuse patient.[facility] HospitalIn the event this information is protected by the Federal Confidentiality of Alcohol and Drug Abuse Patient Records regulations: The Federal rules restrict any use of the information to criminally investigate or prosecute any alcohol or drug abuse patient.[facility] HospitalIn the event this information is protected by the Federal Confidentiality of Alcohol and Drug Abuse Patient Records regulations: The Federal rules restrict any use of the information to criminally investigate or prosecute any alcohol or drug abuse patient.[facility] Reason for Visit (unrecogniz ed section and content) ReasonCommentsColon CancerReasonCommentsPatient QuestionSpecialtyDiagnoses / ProceduresReferred By ContactReferred To ContactCT IMAGING Diagnoses Malignant neoplasm of ascending colon (HCC) Procedures CT CHEST W IVCON DIAGNOSTIC COMPUTED TOMOGRAPHY THORAX W/[place] [address] [place] [address] Ct [facility] [place] [address] Referral IDStatusReasonStart DateExpiration DateVisits RequestedVisits [id number] Auto-Generated Referral /[id number]-En ExamReasonCommentsPost OpReasonComments Colon CancerNew patient consultSpecialtyDiagnoses / ProceduresReferred By ContactReferred To ContactOncology Diagnoses Malignant neoplasm of ascending colon (HCC) Procedures CONSULT TO ONCOLOGY OFFICE/OUTPATIENT [facility] 60 [place] [address] [place] [address] Referral IDStatusReasonStart DateExpiration DateVisits RequestedVisits [id number] PCP Requested Referral /[id number] Research Pre-Screening (IRB: [id number])ReasonCommentsCare CoordinationCancelling appointments at [...] BE BASED ON THE PRIMARY CLINICAL RECORDS. [employer] provides no warranty or guarantee of the accuracy or completeness of information in this document.
--- NOTE | 2025-05-01 08:48 | CT_ITS ---
The [address] [address] Patient Name: PIPER RODRÍGUEZ MRN: [id number] date: 1970 Sex: M Assigned Patient Location: CT Current Patient Location: CT Accession/Order Number: [id number] Exam Date: 05/01/2025 08:43 Report Date: 05/01/2025 16:59 At the request of: FRANKLIN VILLANUEVA MD Procedure: CT chest w con CT CHEST, ABDOMEN AND PELVIS WITH INTRAVENOUS CONTRAST: CLINICAL HISTORY: Malignant Neoplasm Cecum, Decreased White Blood Cell COMPARISON CT chest 02/22/2025, CT chest and pelvis 01/12/2025 TECHNIQUE: Spiral images were obtained through the chest, abdomen and pelvis following the administration of IV contrast. This CT exam was performed using one or more following dose reduction techniques: Automated exposure control, adjustment of the mA and/or kV according to patient size, or use of iterative reconstruction technique. FINDINGS: CT chest: Mediastinum:Right-sided Tgnqrt-q-Obat. Cardiomegaly. Coronary artery calcifications.. No pericardial effusion. No mediastinal or hilar Lymphadenopathy. The esophagus is grossly unremarkable. Lungs:No consolidation pneumothorax or pleural effusion. Mild lung scarring. No suspicious pulmonary nodule. Triangular-shaped pleural-based nodule right major fissure likely benign Soft tissues/Bones: No acute findings. Osseous structures demonstrate degenerative change. CT abdomen and pelvis: Organs:Fatty infiltration liver with scattered areas of wedge-shaped fatty sparing. Otherwise the gallbladder spleen pancreas and adrenal glands appear unremarkable. No enhancing renal mass or hydronephrosis. GI: Stomach is grossly unremarkable. Small bowel appears nondilated. Right hemicolectomy. No recurrence along the surgical margin. Remaining colon demonstrates scattered colonic diverticulosis. Pelvis:[Artifact from hip prostheses degrades evaluation. Redemonstration bladder wall thickening this could relate to under distention, partially obscured by the artifact. Prostate poorly visualized. Peritoneum/Retroperitoneum:No free air or free fluid or lymphadenopathy.[Aorta is nonaneurysmal with mzww-re-cnonnsxv plaque. Abd wall/Bones:Ventral abdominal surgery with fat-containing hernias noted. Osseous structures demonstrate degenerative change.[No suspicious osseous lesion. Bilateral hip arthroplasties. CT/CT chest w con IMPRESSION: No evidence of tumor recurrence or metastatic disease Resolved lung nodularity, these were likely infectious inflammatory. 5 mm pleural-based nodule right major fissure noted in a triangular configuration, intrapulmonary lymph node is favored. Impression dictated by: Ronan Roper M.D. 05/01/2025 4:59 PM Dictation Location: [place] [address] Electronically authenticated by: [id number] Y Date: 05/01/2025 16:59
--- NOTE | 2025-05-01 08:48 | CT_ITS ---
The [address] [address] Patient Name: PIPER RODRÍGUEZ MRN: [id number] date: 1970 Sex: M Assigned Patient Location: CT Current Patient Location: CT Accession/Order Number: [id number] Exam Date: 05/01/2025 08:43 Report Date: 05/01/2025 17:00 At the request of: FRANKLIN VILLANUEVA MD Procedure: CT abdomen pelvis w con CT CHEST, ABDOMEN AND PELVIS WITH INTRAVENOUS CONTRAST: CLINICAL HISTORY: Malignant Neoplasm Cecum, Decreased White Blood Cell COMPARISON CT chest 02/22/2025, CT chest and pelvis 01/12/2025 TECHNIQUE: Spiral images were obtained through the chest, abdomen and pelvis following the administration of IV contrast. This CT exam was performed using one or more following dose reduction techniques: Automated exposure control, adjustment of the mA and/or kV according to patient size, or use of iterative reconstruction technique. FINDINGS: CT chest: Mediastinum:Right-sided Omqetz-q-Bkrs. Cardiomegaly. Coronary artery calcifications.. No pericardial effusion. No mediastinal or hilar Lymphadenopathy. The esophagus is grossly unremarkable. Lungs:No consolidation pneumothorax or pleural effusion. Mild lung scarring. No suspicious pulmonary nodule. Triangular-shaped pleural-based nodule right major fissure likely benign Soft tissues/Bones: No acute findings. Osseous structures demonstrate degenerative change. CT abdomen and pelvis: Organs:Fatty infiltration liver with scattered areas of wedge-shaped fatty sparing. Otherwise the gallbladder spleen pancreas and adrenal glands appear unremarkable. No enhancing renal mass or hydronephrosis. GI: Stomach is grossly unremarkable. Small bowel appears nondilated. Right hemicolectomy. No recurrence along the surgical margin. Remaining colon demonstrates scattered colonic diverticulosis. Pelvis:[Artifact from hip prostheses degrades evaluation. Redemonstration bladder wall thickening this could relate to under distention, partially obscured by the artifact. Prostate poorly visualized. Peritoneum/Retroperitoneum:No free air or free fluid or lymphadenopathy.[Aorta is nonaneurysmal with zdwv-zr-fsuufunq plaque. Abd wall/Bones:Ventral abdominal surgery with fat-containing hernias noted. Osseous structures demonstrate degenerative change.[No suspicious osseous lesion. Bilateral hip arthroplasties. CT/CT abdomen pelvis w con IMPRESSION: No evidence of tumor recurrence or metastatic disease Resolved lung nodularity, these were likely infectious inflammatory. 5 mm pleural-based nodule right major fissure noted in a triangular configuration, intrapulmonary lymph node is favored. Impression dictated by: Ronan Roper M.D. 05/01/2025 5:00 PM Dictation Location: [place] [address] Electronically authenticated by: [id number] Y Date: 05/01/2025 17:00
== END 2025-05-01 08:35 | disposition home or self-care (01) ==
LOC: CT 08:34
PROVIDERS: PCP Family Medicine; Visit Provider Internal Medicine Hematology & Oncology
DX: D64.9 Anemia, unspecified (principal); D61.818 Other pancytopenia; D50.9 Iron deficiency anemia, unspecified; K90.9 Intestinal malabsorption, unspecified; D72.819 Decreased white blood cell count, unspecified; C18.0 Malignant neoplasm of cecum; R11.2 Nausea with vomiting, unspecified; D69.6 Thrombocytopenia, unspecified; R91.1 Solitary pulmonary nodule
CPT/HCPCS: 71260; 74177; Q9967

== ENCOUNTER 2025-05-08 14:20 | Outpatient (RCR) | payer BC, SELFPAY ==
[2025-05-08 14:50] LABS: Hematocrit 46.5 % (42.0-54.0); Hemoglobin 16.1 g/dL (14.0-18.0); Immature Granulocytes Abs Auto 0.02 10^3/uL (0.00-0.03); Immature Granulocytes Pct Auto 0.3 % (0.0-0.5); Lymphocytes Absolute Auto 1.7 10^3/uL (1.2-3.8); Mean Corpuscular HGB Conc 34.6 g/dL (29.9-35.2); Mean Corpuscular Hemoglobin 31.5 pg (25.9-34.0); Mean Corpuscular Volume 91.0 fL (80.0-94.0); Platelet Count 143 10^3/uL (150-450); Red Blood Count 5.11 10^6/uL (4.70-6.10); White Blood Count 7.5 10^3/uL (4.0-11.0)
[2025-05-08 15:07] LABS: Alanine Aminotransferase 59 U/L (16-63); Albumin Globulin Ratio 0.9; Albumin Level 3.9 g/dL (3.4-5.0); Alkaline Phosphatase 80 U/L (46-116); Anion Gap 12.3; Aspartate Amino Transferase 47 U/L (15-37); Blood Urea Nitrogen 13.0 mg/dL (7.0-18.0); Calcium 9.6 mg/dL (8.5-10.1); Carbon Dioxide 27.6 mmol/L (21.0-32.0); Chloride 98 mmol/L (98-107); Estimated GFR (African America >60 (>=60 mL/min/1.73m^2); Estimated GFR (Non-African Ame >60 (>=60 mL/min/1.73m^2); Globulin 4.2 g/dL; Glucose 95 mg/dL (74-106); Potassium 3.9 mmol/L (3.5-5.1); Sodium 134 mmol/L (136-145); Total Protein 8.1 g/dL (6.4-8.2)
[2025-05-09 04:08] LABS: CEA 3.1 ng/mL (0.0-4.7)
== END 2025-05-23 23:59 | disposition home or self-care (01) ==
LOC: HEMC 14:20
PROVIDERS: PCP Family Medicine; Visit Provider Internal Medicine Hematology & Oncology
DX: D64.9 Anemia, unspecified (principal); D61.818 Other pancytopenia; D50.9 Iron deficiency anemia, unspecified; K90.9 Intestinal malabsorption, unspecified; D72.819 Decreased white blood cell count, unspecified; C18.0 Malignant neoplasm of cecum; R11.2 Nausea with vomiting, unspecified; D69.6 Thrombocytopenia, unspecified; I10 Essential (primary) hypertension
CPT/HCPCS: 36415; 80053; 82378; 85025; G0463